=== PATIENT | female | born 1990 | race Caucasian/White ===

== ENCOUNTER 2019-07-03 21:34 | Emergency (ER) | payer OTHER ==
--- OUTSIDE RECORDS SUMMARY | 2019-07-03 21:36 | XMS REPORT ---
:1990 [facility] Address [address] [place] [address] Dr. Albert [address] [place] [id number] Care Team Providers Name Role Phone Unavailable Unavailable Unavailable Problems This patient has no known problems. Allergies, Adverse Reactions, Alerts This patient has no known allergies or adverse reactions. Medications This patient has no known medications.
--- OUTSIDE RECORDS SUMMARY | 2019-07-03 21:37 | XMS REPORT ---
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
--- OUTSIDE RECORDS SUMMARY | 2019-07-03 21:37 | XMS REPORT ---
:1990 Author Organization [employer]Clinical[employer] Care Team Providers Name Role Phone Leander Shepard Provider Role Unavailable Allergies No Known Allergies Problems Problem Type Condition Code Onset Dates Condition Status Problem Hypercalcemia E83.52 Active Problem Iron deficiency [...]
--- OUTSIDE RECORDS SUMMARY | 2019-07-03 21:37 | XMS REPORT ---
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), predominantly inattentive type Problem Hypercalcemia E83.52 Active Problem Iron deficiency anemia, unspecified D50.9 Active iron deficiency anemia type Problem Enlarged thyroid E04.9 Active Problem Tobacco use disorder F17.200 Active Problem 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), predominantly inattentive type Problem Allergic rhinitis, unspecified J30.9 Active seasonality, unspecified trigger Problem Constipation, unspecified K59.00 Active constipation type Assessment Hemorrhoids, unspecified hemorrhoid K64.9 Active type Assessment Tachycardia R00.0 Active Assessment Encounter for medication counseling Z71.89 Active Assessment Enlarged thyroid E04.9 Active Assessment Encounter for tobacco use cessation Z71.6 Active counseling Assessment Tobacco use disorder F17.200 Active Medications Medication Code Code Instructions Start End Status Dosage System Date Date Vyvanse [facility] 78217503133 50 MG Orally Apr 26, Active 1 capsule Once a day 2020 in the morning Toprol XL [facility] 62265716578 25 MG Orally Active 1 tablet Once a day Albuterol [facility] 86064095726 108 (90 Base) May 21, Active 2 puffs as Sulfate HFA MCG/ACT 2019 needed Inhalation every 6 hrs Iron [facility] 90061772555 325 (65 Fe) MG Active 1 tablet Orally Twice a day Chantix [facility] 89179027092 1 MG Orally Active 1 tablet Twice a day Vyvanse [facility] 96609113438 50 MG Orally Mar 26, Active 1 capsule Once a day 2019 in the morning Results No Known Results Summary Purpose eClinicalWorks Submission
--- OUTSIDE RECORDS SUMMARY | 2019-07-03 21:38 | XMS REPORT ---
[...] Start End Status Dosage System Date Date Toprol XL [facility] 45624472511 25 MG Orally Active 1 tablet Once a day Albuterol [facility] 48252426058 108 (90 Base) Active 2 puffs as Sulfate HFA MCG/ACT needed Inhalation every 6 hrs Vyvanse [facility] 69037303697 50 MG Orally June 23, Active 1 capsule Once a day 2019 in the morning Vyvanse [facility] 36113093664 50 MG Orally May 26, Active 1 capsule Once a day 2019 in the morning Chantix [facility] 88500030074 1 MG Orally Active 1 tablet Twice a day Iron [facility] 67845819363 325 (65 Fe) MG Active 1 tablet Orally Twice a day Results No Known Results Summary Purpose eClinicalWorks Submission
--- OUTSIDE RECORDS SUMMARY | 2019-07-03 21:38 | XMS REPORT ---
:1990 Author Organization eClinicalWorks Care Team Providers Name Role Phone Devyn Leander Provider Role Unavailable Allergies, Adverse Reactions, Alerts Substance Reaction Event Type Kenalog-40 Muscle Atrophy Drug Allergy Problems Problem Type Condition Code Onset Dates Condition Status Assessment Lower respiratory infection J22 Active Assessment Acute bronchitis, unspecified J20.9 Active organism Problem Hypercalcemia E83.52 Active Problem Iron deficiency anemia, unspecified D50.9 Active iron deficiency anemia type Problem Enlarged thyroid E04.9 Active Problem Tobacco use disorder F17.200 Active Problem 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), predominantly inattentive type Problem Allergic rhinitis, unspecified J30.9 Active seasonality, unspecified trigger Problem Constipation, unspecified K59.00 Active constipation type Medications Medication Code Code Instructions Start End Date Status Dosage System Date Toprol XL [facility] 36697041282 25 MG Orally Active 1 tablet Once a day PredniSONE ND 36067905281 20 MG Orally Feb , Feb 16, Active 2 tablet Once a day 2019 2019 Vyvanse [facility] 07934804582 50 MG Orally May 26, Active 1 capsule Once a day 2019 in the morning Chantix ND 67203454451 1 MG Orally Active 1 tablet Twice a day Doxycycline ND 49229171075 100 MG Orally Jun 02, Feb , Active 1 capsule Hyclate every 12 hrs 2019 2019 Vyvanse [facility] 25092231531 50 MG Orally June Active 1 capsule Once a day 2019 in the morning Albuterol [facility] 05957830109 108 (90 Base) Active 2 puffs as Sulfate HFA MCG/ACT needed Inhalation every 6 hrs Iron [facility] 15678232485 325 (65 Fe) MG Active 1 tablet Orally Twice a day Symbicort ND 18474551682 80-4.5 MCG/ACT Jun 02June Active 2 puffs Inhalation Once 2019 a day Results No Known Results Summary Purpose eClinicalWorks Submission
--- OUTSIDE RECORDS SUMMARY | 2019-07-03 21:38 | XMS REPORT ---
:1990 Author Organization eClinicalWorks Care Team Providers Name Role Phone Leander Shepard Provider Role Unavailable Allergies, Adverse Reactions, Alerts [...] Start End Status Dosage System Date Date Chantix [facility] 97428468907 1 MG Orally Active 1 tablet Twice a day Vyvanse [facility] 02354291624 50 MG Orally Mar 26, Active 1 capsule Once a day 2018 in the morning Toprol XL [facility] 35590844076 25 MG Orally Active 1 tablet Once a day Benzonatate ND 54736340536 200 MG Orally Apr 30, May 10, Active 1 capsule Three times a 2019 2019 day Azithromycin ND 79312717895 250 MG Orally Apr 30, May 05, Active 2 tablets Once a day 2019 2019 on the first day, then 1 tablet daily for 4 days Iron [facility] 11933865891 325 (65 Fe) MG Active 1 tablet Orally Twice a day Albuterol [facility] 22620712870 108 (90 Base) Active 2 puffs as Sulfate HFA MCG/ACT needed Inhalation every 6 hrs Results No Known Results Summary Purpose eClinicalWorks Submission
--- OUTSIDE RECORDS SUMMARY | 2019-07-03 21:38 | XMS REPORT ---
:1990 Author Organization eClinicalWorks Care Team Providers Name Role Phone Leander Shepard Provider Role Unavailable Allergies No Known Allergies Problems Problem Type Condition Code Onset Dates Condition Status Assessment Constipation, unspecified K59.00 Active constipation type Problem Hypercalcemia E83.52 Active Problem Iron [...]
--- OUTSIDE RECORDS SUMMARY | 2019-07-03 21:38 | XMS REPORT ---
:1990 Author Organization eClinicalWorks Care Team Providers Name Role Phone ShepardLeander Provider Role Unavailable Allergies No Known Allergies Problems Problem Type Condition Code Onset Dates Condition Status Assessment Acute bronchitis, unspecified J20.9 Active organism [...] constipation type Medications No Known Medications Results Name Result Date Reference Range Unit Abnormality Flag Chest Pa And Lat (2 Views) Summary Purpose eClinicalWorks Submission
--- OUTSIDE RECORDS SUMMARY | 2019-07-03 21:38 | XMS REPORT ---
:1990 Author Organization eClinicalWorks Care Team Providers Name Role Phone Leander Shepard Provider Role Unavailable Allergies, Adverse Reactions, Alerts Substance Reaction Event Type Kenalog-40 Muscle Atrophy Drug Allergy Problems Problem Type Condition Code Onset Dates Condition Status Assessment Attention deficit hyperactivity F90.0 Active disorder [...] End Status Dosage System Date Date Vyvanse [facility] 47571399780 50 MG Orally Mar 26, Active 1 capsule Once a day 2018 in the morning Chantix [facility] 73639554175 1 MG Orally Active 1 tablet Twice a day Albuterol [facility] 28286469321 108 (90 Base) May 21, Active 2 puffs as Sulfate HFA MCG/ACT 2019 needed Inhalation every 6 hrs Iron [facility] 21630595234 325 (65 Fe) MG Active 1 tablet Orally Twice a day Toprol XL [facility] 78269779383 25 MG Orally Active 1 tablet Once a day Vyvanse [facility] 04221664460 50 MG Orally Apr 24, Active 1 capsule Once a day 2019 in the morning Results No Known Results Summary Purpose eClinicalWorks Submission
--- OUTSIDE RECORDS SUMMARY | 2019-07-03 21:40 | XMS REPORT ---
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), predominantly inattentive type Problem Abnormal finding on imaging R93.89 Active Problem Enlarged thyroid E04.9 Active Problem Mass of chest wall R22.2 Active Problem Allergic rhinitis, unspecified J30.9 Active seasonality, unspecified trigger Problem Constipation, unspecified K59.00 Active constipation type Problem Hypercalcemia E83.52 Active Problem Iron deficiency anemia, unspecified D50.9 Active iron deficiency anemia type Medications Medication Code System Code Instructions Start End Date Status Dosage Date Vyvnemesoie [facility] 41608819426 50 MG Orally June 23, Active 1 capsule Once a day 2019 in the morning Results No Known Results Summary Purpose eClinicalWorks Submission
--- OUTSIDE RECORDS SUMMARY | 2019-07-03 21:40 | XMS REPORT ---
[...] D50.9 Active iron deficiency anemia type Medications No Known Medications Results No Known Results Summary Purpose eClinicalWorks Submission
--- OUTSIDE RECORDS SUMMARY | 2019-07-03 21:40 | XMS REPORT ---
:1990 Author Organization eClinicalWorks Care Team Providers Name Role Phone Leander Shepard Provider Role Unavailable Allergies, Adverse Reactions, Alerts Substance Reaction Event Type Kenalog-40 Muscle Atrophy Drug Allergy Problems Problem Type Condition Code Onset Dates Condition Status Assessment Localized skin mass, lump, or R22.9 Active swelling Assessment Acute bronchitis, unspecified J20.9 Active organism [...] Status Dosage System Date Date Toprol XL [facility] 13180264952 25 MG Orally Active 1 tablet Once a day Chantix [facility] [place] 19494333265 1 MG Orally Active 1 tablet Twice a day Albuterol [facility] [place] 20306868342 108 (90 Base) Active 2 puffs as Sulfate HFA MCG/ACT needed Inhalation every 6 hrs Vyvanse [facility] [place] 71178113082 50 MG Orally June 23, Active 1 capsule Once a day 2019 in the morning Vyvanse [facility] [place] 05010088550 50 MG Orally May 26, Active 1 capsule Once a day 2019 in the morning Iron [facility] [place] 80999165550 325 (65 Fe) MG Active 1 tablet Orally Twice a day Symbicort [facility] [place] 51386292679 80-4.5 MCG/ACT Active 2 puffs Inhalation Once a day Results No Known Results Summary Purpose eClinicalWorks Submission
--- OUTSIDE RECORDS SUMMARY | 2019-07-03 21:40 | XMS REPORT ---
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), predominantly inattentive type Assessment Abnormal finding on imaging R93.89 Active Assessment Mass of chest wall R22.2 Active Problem Abnormal finding on imaging R93.89 Active Problem Enlarged thyroid E04.9 Active Problem Mass of chest wall R22.2 Active Problem Allergic rhinitis, unspecified J30.9 Active seasonality, unspecified trigger Problem Constipation, unspecified K59.00 Active constipation type Problem Hypercalcemia E83.52 Active Problem Iron deficiency anemia, unspecified D50.9 Active iron deficiency anemia type Medications No Known Medications Results No Known Results Summary Purpose eClinicalb5media Submission
--- NOTE | 2019-07-03 23:16 | ER ---
Nurse's Notes [facility] Name: Ethel Amato Age: 29 yrs Sex: Female : 1990 Arrival Date: 07/03/2019 Time: 21:36 Bed 13 Private MD: Leander Shepard Diagnosis: Displaced fracture of proximal phalanx of left lesser toe(s)-fifth toe Presentation: 07/02 21:50 Chief complaint: Patient states: "I kicked a wooden crate and my foot keeps getting aj1 more swollen and bruised" Reports pain to left foot. Coronavirus screen: The patient has NOT traveled to a country currently being monitored by the CDC within the last 14 days. Ebola Screen: Patient denies travel to an Ebola-affected area in the 21 days before illness onset. Initial Sepsis Screen: Does the patient meet any 2 criteria? No. Patient's initial sepsis screen is negative. Does the patient have a suspected source of infection? No. Patient's initial sepsis screen is negative. Risk Assessment: Do you want to hurt yourself or someone else? Patient reports no desire to harm self or others. 21:50 Method Of Arrival: Ambulatory aj1 21:50 Acuity: APOLINAR 4 aj1 Triage Assessment: 21:52 General: Appears in no apparent distress. comfortable, Behavior is calm, cooperative, aj1 appropriate for age. Pain: Complains of pain in left foot. Neuro: Level of Consciousness is awake, alert, obeys commands. Cardiovascular: Patient's skin is warm and dry. Respiratory: Airway is patent Respiratory effort is even, unlabored, Respiratory pattern is regular, symmetrical. Musculoskeletal: Range of motion: intact in all extremities. Injury Description: She accidentally kicked a wooden crate. [employer]: 21:52 [facility] 06/2019 aj1 Historical: - Allergies: 21:52 No Known Allergies; aj1 - Home Meds: 21:52 Vyvanse 70 mg Oral cap 1 cap once daily [Active]; metoprolol tartrate 25 mg Oral tab 1 aj1 tab once daily [Active]; - PMHx: 21:52 ADD/ADHD; Pneumonia; Hypertension; aj1 - Immunization history:: Flu vaccine is up to date. - Social history:: Smoking status: Patient reports the use of cigarette tobacco products, smokes one-half pack cigarettes per day. Screenin:17 Abuse screen: Denies threats or abuse. Denies injuries from another. Nutritional lw1 screening: No deficits noted. Tuberculosis screening: No symptoms or risk factors identified. Fall Risk None identified. Assessment: 23:08 Reassessment: Patient is alert, oriented x 3, equal unlabored respirations, skin lw1 warm/dry/pink. General: Appears in no apparent distress. well groomed, well developed, well nourished. General: Behavior is calm, cooperative, appropriate for age. Pain: Complains of pain in left foot Pain currently is 8 out of 10 on a pain scale. Alleviated by rest. Neuro: No deficits noted. Cardiovascular: No deficits noted. Respiratory: No deficits noted. GI: No deficits noted. : No deficits noted. EENT: No deficits noted. Derm: No deficits noted. Musculoskeletal: No deficits noted. Injury Description: Bruise sustained to left foot. Vital Signs: 21:52 BP 113 / 75; Pulse 90; Resp 18; Temp 98.3; Pulse Ox 100% on R/A; Weight 48.99 kg (R); aj1 Height 5 ft. 7 in. (170.18 cm) (R); Pain 7/10; 21:52 Body Mass Index 16.92 (48.99 kg, 170.18 cm) aj1 ED Course: 21:36 Patient arrived in ED. es 21:38 Leander Shepard DO is Private Physician. es 21:39 Holli Garcia FNP-C is [facility]. kb 21:39 Arcadio Pitts MD is Attending Physician. kb 21:51 Triage completed. aj1 21:52 Arm band placed on Patient placed in waiting room, Patient notified of wait time. aj1 22:42 Foot Left 3 View XRAY In Process Unspecified. EDMS 23:08 Franklyn Santiago, RN is Primary Nurse. lw1 23:18 No provider procedures requiring assistance completed. Patient did not have IV access lw1 during this emergency room visit. 23:19 Patient has correct armband on for positive identification. Call light in reach. Side lw1 rails up X 1. Administered Medications: No medications were administered Outcome: 23:16 Discharge ordered by . kb 23:18 Discharged to home with crutches. lw1 23:18 Condition: stable 23:18 Discharge instructions given to patient, Instructed on discharge instructions, medication usage, Demonstrated understanding of instructions, follow-up care, crutch walking. 23:36 Patient left the ED. lw1 Signatures: Dispatcher [employer] Holli Jc, [employer] TONYA-Marga Bell, RN RN aj1 Jillian Gupta LaDonna RN RN lw1
--- NOTE | 2019-07-03 23:17 | EDPHYS ---
Physician Documentation [facility] Name: Ethel Amato Age: 29 yrs Sex: Female : 1990 Arrival Date: 07/03/2019 Time: 21:36 Bed 13 Private MD: Devyn [facility] ED Physician Arcadio Pitts HPI: 07/02 23:13 This 29 yrs old Female presents to ER via Ambulatory with complaints of Foot kb Injury. 23:13 The patient has not experienced similar symptoms in the past. The patient has not kb recently seen a physician. 23:14 The patient presents with an injury, pain, swelling, tenderness. The complaints affect kb the dorsum of left foot and lateral side of left foot. Context: The problem was sustained at home, resulted from accidentally kicked a wooden crate, the patient can fully bear weight, the patient is able to ambulate, with mild difficulty. Onset: The symptoms/episode began/occurred this morning. Modifying factors: The symptoms are alleviated by nothing, the symptoms are aggravated by weight bearing. Associated signs and symptoms: Pertinent positives: swelling, Pertinent negatives: calf tenderness, fever, nausea, numbness, rash, tingling, vomiting, warmth, weakness. Severity of symptoms: At their worst the symptoms were moderate, in the emergency department the symptoms are unchanged. [employer]: 21:52 LMP 06/2019 aj1 Historical: - Allergies: 21:52 No Known Allergies; aj1 - Home Meds: 21:52 Vyvanse 70 mg Oral cap 1 cap once daily [Active]; metoprolol tartrate 25 mg Oral tab 1 aj1 tab once daily [Active]; - PMHx: 21:52 ADD/ADHD; Pneumonia; Hypertension; aj1 - Immunization history:: Flu vaccine is up to date. - Social history:: Smoking status: Patient reports the use of cigarette tobacco products, smokes one-half pack cigarettes per day. ROS: 23:11 Constitutional: Negative for fever, chills, and weight loss, Cardiovascular: Negative kb for chest pain, palpitations, and edema, Respiratory: Negative for shortness of breath, cough, wheezing, and pleuritic chest pain, Abdomen/GI: Negative for abdominal pain, nausea, vomiting, diarrhea, and constipation, Back: Negative for injury and pain, Neuro: Negative for headache, weakness, numbness, tingling, and seizure. 23:11 MS/extremity: Positive for injury or acute deformity, ecchymosis, pain, swelling, tenderness, of the lateral side of left foot and dorsum of left foot. Exam: 23:11 Constitutional: This is a well developed, well nourished patient who is awake, alert, kb and in no acute distress. Head/Face: Normocephalic, atraumatic. Chest/axilla: Normal chest wall appearance and motion. Nontender with no deformity. No lesions are appreciated. Cardiovascular: Regular rate and rhythm with a normal S1 and S2. No gallops, murmurs, or rubs. Normal PMI, no JVD. No pulse deficits. Respiratory: Lungs have equal breath sounds bilaterally, clear to auscultation and percussion. No rales, rhonchi or wheezes noted. No increased work of breathing, no retractions or nasal flaring. Abdomen/GI: Soft, non-tender, with normal bowel sounds. No distension or tympany. No guarding or rebound. No evidence of tenderness throughout. Neuro: Awake and alert, GCS 15, oriented to person, place, time, and situation. Cranial nerves II-XII grossly intact. Motor strength 5/5 in all extremities. Sensory grossly intact. Cerebellar exam normal. Normal gait. 23:11 Musculoskeletal/extremity: Extremities: grossly normal except: noted in the dorsum of left foot and lateral side of left foot: ecchymosis, pain, swelling, tenderness, ROM: limited active range of motion due to pain, Circulation is intact in all extremities. Sensation intact. Weight bearing: can bear weight with assistance only. Vital Signs: 21:52 BP 113 / 75; Pulse 90; Resp 18; Temp 98.3; Pulse Ox 100% on R/A; Weight 48.99 kg (R); aj1 Height 5 ft. 7 in. (170.18 cm) (R); Pain 7/10; 21:52 Body Mass Index 16.92 (48.99 kg, 170.18 cm) aj1 MDM: 23:04 Patient medically screened. kb 23:12 Data reviewed: vital signs, nurses notes. Data reviewed: radiologic studies. Data kb interpreted: Pulse oximetry: on room air is 100 %. Interpretation: normal. Test interpretation: by ED physician or midlevel provider: plain radiologic studies, displaced fracture of proximal phalanx of fifth toe. Counseling: I had a detailed discussion with the patient and/or guardian regarding: the historical points, exam findings, and any diagnostic results supporting the discharge/admit diagnosis, radiology results, the need for outpatient follow up, a orthopedic surgeon, to return to the emergency department if symptoms worsen or persist or if there are any questions or concerns that arise at home. 07/02 21:54 Order name: Foot Left 3 View XRAY aj1 07/02 23:07 Order name: Post-op shoe kb 07/02 23:07 Order name: Crutches kb Administered Medications: No medications were administered Disposition: 07/03 03:30 Co-signature as Attending Physician, Arcadio Pitts MD I agree with the assessment and 4 plan of care. Disposition: 07/03/19 23:16 Discharged to Home. Impression: Displaced fracture of proximal phalanx of left lesser toe(s) - fifth toe. - Condition is Stable. - Discharge Instructions: Toe Fracture, [id number]. - Prescriptions for Diclofenac Sodium 75 mg Oral Tablet, Delayed Release (E.C.) - take 1 tablet by ORAL route 2 times per day As needed; 30 tablet. - Medication Reconciliation Form, Thank You Letter, Antibiotic Education, Prescription Opioid Use form. - Follow up: Emergency Department; When: As needed; Reason: Worsening of condition. Follow up: Private Physician; When: 2 - 3 days; Reason: Recheck today's complaints, Continuance of care, Re-evaluation by your physician. Signatures: Dispatcher [employer] [facility] Holli Garcia, TONYA-C ROPE RIDER-Marga Bell RN RN aj1 Arcadio Pitts MD MD tw4 Franklyn Santiago RN RN lw1 Corrections: (The following items were deleted from the chart) 07/02 23:36 23:16 07/03/2019 23:16 Discharged to Home. Impression: Displaced fracture of proximal lw1 phalanx of left lesser toe(s) - fifth toe. Condition is Stable. Forms are Medication Reconciliation Form, Thank You Letter, Antibiotic Education, Prescription Opioid Use. Follow up: Emergency Department; When: As needed; Reason: Worsening of condition. Follow up: Private Physician; When: 2 - 3 days; Reason: Recheck today's complaints, Continuance of care, Re-evaluation by your physician. kb
[2019-07-03 23:57] VITALS: BP 113/75; TEMP 98.3; O2SAT 100
--- NOTE | 2019-07-04 09:44 | RAD REPORT ---
EXAM DESCRIPTION: RAD - Foot Left 3 View - 07/03/2019 10:42 pm CLINICAL HISTORY: PAIN, blunt force trauma to the was COMPARISON: No comparisons FINDINGS: Oblique fracture is present through the proximal shaft of the fifth proximal phalanx. Ther e is minimal angulation deformity. No abnormal distraction. No other toe fracture seen. Metatarsals a re intact. There is soft tissue swelling around the fifth toe. No destructive bone process. No air or foreign body in the soft tissues. IMPRESSION: Left fifth proximal phalanx fracture with minimal angulation.
== END 2019-07-03 23:36 | disposition home or self-care (01) ==
LOC: ER 21:34
DX: S92.512A Displaced fracture of proximal phalanx of left lesser toe(s), initial encounter for closed fracture (principal); W22.8XXA Striking against or struck by other objects, initial encounter; Y93.01 Activity, walking, marching and hiking; Y92.009 Unspecified place in unspecified non-institutional (private) residence as the place of occurrence of the external cause; I10 Essential (primary) hypertension; F90.9 Attention-deficit hyperactivity disorder, unspecified type; F17.210 Nicotine dependence, cigarettes, uncomplicated
CPT/HCPCS: 99283

== ENCOUNTER 2022-04-11 15:38 | Emergency (ER) | payer OTHER ==
--- OUTSIDE RECORDS SUMMARY | 2022-04-11 15:46 | XMS REPORT | Continuity of Care Document ---
:1990 Author Organization [facility] t Address [address] [place]. [address] [place] [id number] Care Team Providers Name Role Phone Leander Shepard Primary Care Physician Leander Shepard Attending Clinician Unavailable CATHIE ROSS Attending Clinician Unavailable RAVINDER FUENTES Attending Clinician Unavailable Jose QUINTANILLA Attending Clinician Unavailable Jose Domínguez Attending Clinician Modesto Jian Attending Clinician Unavailable BALDEV ALARCON S Attending Clinician Unavailable Alarcon PAC, Baldev S Attending Clinician TREVON CORTES Attending Clinician Unavailable Alfie PAC, Kerrie S Attending Clinician KERRIE JUDGE S Attending Clinician Unavailable Cathie Ross MD Attending Clinician JACQUELINE SHIN Attending Clinician Unavailable Josafat CLINICAL NURSE EDUCATOR, Jacqueline Attending Clinician Da STUBBS, Page Attending Clinician TRINO ASHFORD Attending Clinician Unavailable Trino Ashford MD Attending Clinician Doctor Unassigned, [place] Attending Clinician Unavailable Edy STUBBS, Afaq Attending Clinician Pob, Adc Lab Main Attending Clinician Unavailable Only, Adc Test Attending Clinician Unavailable PAGE ROBERSON Attending Clinician Unavailable Horace CLINICAL NURSE EDUCATOR, Consuelo Attending Clinician EBRARAJESH ALEXIS Attending Clinician Unavailable Ebrahim CLINICAL NURSE EDUCATOR Rania Attending Clinician Visit, Ang-Rmchp Nurse Attending Clinician Unavailable Sebastian CLINICAL NURSE EDUCATOR, Trevon Doyle Attending Clinician Akinmargaux WHCNPPratima Attending Clinician [phone] AKINPRATIMA NORRIS Attending Clinician Unavailable _[facility]_G Attending Clinician Unavailable COSME DAVIS Attending Clinician Unavailable Ryan CLINICAL NURSE EDUCATOR, Cosme Attending Clinician [phone] Zakiya Multani RN Attending Clinician Unavailable Only, Tylor Db Test Attending Clinician Unavailable Franki CLINICAL NURSE EDUCATOR, Miley Attending Clinician MILEY DOAN Attending Clinician Unavailable Julisa Purvis DO Attending Clinician Marin HOFF, Tiff Moreno Attending Clinician CHAD MORAN Attending Clinician Unavailable [place] Espana MD Attending Clinician Chad Moran MD Attending Clinician Karina STUBBS, Marisabel Attending Clinician CLEMENTINA MARROQUIN Attending Clinician Unavailable Clementina Marroquin DO Attending Clinician SOLO DEVI Attending Clinician Unavailable Solo Devi MD Attending Clinician Provider, [facility] Attending Clinician Unavailable Kelly Cooley Attending Clinician Christos STUBBS, Jennifer Attending Clinician Radiology Attending Clinician Unavailable RADIOLOGY Attending Clinician Unavailable JENNIFER SHER Attending Clinician Unavailable KELLY PEREZ Attending Clinician Unavailable Noreen CLINICAL NURSE EDUCATOR, Cynise Attending Clinician NOREENSABRA ULRICH Attending Clinician Unavailable Carrington CLINICAL NURSE EDUCATOR, Brandi Casanova Attending Clinician Eliezer Watts MD Attending Clinician Jayden Leahy MD Attending Clinician Unknown, Attending Attending Clinician Unavailable CATHIE ROSS Admitting Clinician Unavailable Arnol Gonsalez Admitting Clinician Unavailable Cathie Ross MD Admitting Clinician _[facility]_G Admitting Clinician Unavailable MARISABEL COLLINS Admitting Clinician Unavailable Marisabel Collins MD Admitting Clinician SOLO DEVI Admitting Clinician Unavailable Solo Devi MD Admitting Clinician BALDEV ALARCON Admitting Clinician Unavailable SABRA SORTO Admitting Clinician Unavailable Payers Payer Name Policy Type Policy Number Effective Date Expiration Date [facility] [id number] 2016 HEALTH CHOICE 00:00:00 [facility]ICAID [facility] [id number] 2019 [facility] 00:00:00 [facility] [id number] 2019 [facility] HEALTH CHOICE 00:00:00 [facility] [id number] 2019 [facility] HEALTH CHOICE 00:00:00 - [facility] [id number] 2019 [facility] HE[facility] CHOICE 00:00:00 - [facility] Problems Condition Condition Condition Status Onset Resolution Last Treating Co mments Source Name Details Category Date Date Treatment Clinician Date Closed Closed Disease Active Overview: Univer s dislocatio dislocatio 7-20 Formattin ity of n of fifth n of fifth 00:00: g of this [place] metacarpal metacarpal 00 note Me dical bone of bone of might be Branch right hand right hand different from the original. Added automatic ally from request for surgery [id number] Other Other Disease Active Univers general general 3-24 ity of counseling [place] and advice and advice 00 Me dical for for Branch contracept contracept luna luna management management Underweikirstie Underwslygh Disease Active U nivers t t 3-24 ity of 00:00: [place] 00 Medical Branch History of History of Disease Active Overview : Univers anorexia anorexia 3-24 Formattin ity of nervosa nervosa 00:00: g of this [place] 00 note Medical might be Branch different from the original. 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 [id number] GERD Problem Common without [facility] esophagiti [facility] s [facility] [id number] Hypercalce Problem Com mon manav [facility] [id number] Iron Problem Common deficiency [facility] anemia, - [facility] unspecifie d iron kes deficiency Medica l anemia Center type [id number] Enlarged Problem Common thyroid [facility] [id number] Abnormal Problem Comm on finding on [facility] imaging [facility] Allergies, Adverse Reactions, Alerts Allergy Allergy Status Severity Reaction(s) Onset Inactive Treating Comm ents Source Name Type Date Date Clinician No Known DA Active U 2016-04 [facility] Allergie 05-12 [place] s 00:00: d 00 [facility] [id number] Drug Active Muscle Common allergy Atrophy [facility] NO KNOWN Drug Active Univers ALLERGIE Class ity of S [facility] Social History Social Habit Start Date Stop Date Quantity Comments Source History of Tobacco Current Smoker Co mmon Spirit - Use [facility] Sex Assigned At [facility] kiki - [facility] Exposure to 2022-03-29 2022-04-08 Not sure University SARS-CoV-2 (event) 00:00:00 23:43:00 [facility] Alcohol intake 2022-04-06 2022-04-06 Current University of 00:00:00 00:00:00 non-drinker of [facility] alcohol Branch (finding) Tobacco use and 2021-10-30 2021-10-30 Smokeless Universit y of exposure 00:00:00 00:00:00 tobacco non-user [place] Me dical Branch Cigarettes smoked 2021-10-30 2021-10-30 Univers ity of current (pack per 00:00:00 00:00:00 ) - Reported Branch Smoking Status Start Date Stop Date Source Current Smoker 2022-02-28 00:00:00 [facility] Medications Ordered Filled Start Stop Current Ordering Indication Dosage Frequency Signature Comments Components Source Medication Medication Date Date Medication? Clinician (SIG) Name Name nkechi 2021-04 10mg 10 mg, Uni vers ne sod phos 06-10 Oral, ity of PF 06:30: 06:32 ONCE, 1 [place] injection 00 :00 dose, On Medica l 10 mg Mon Branch 04/09/22 at 0030, 1 mL Vyvanse 60 Vyvanse 60 2021-04 No 1{capsu QD Vyvanse 60 MG MG 2-10 le_in_t MG 00:00: he_morn 00 ing} Vyvanse 60 Vyvanse 60 2021-04 No 1{capsu QD Vyvanse 60 MG MG 1-11 le_in_t MG 00:00: he_morn 00 ing} Vyvanse 60 Vyvanse 60 2021-04 No 1{capsu QD Vyvanse 60 MG MG 0-13 le_in_t MG 00:00: he_morn 00 ing} Vyvanse 60 Vyvanse 60 2021-04 No 1{capsu QD Vyvanse 60 MG MG 0-13 le_in_t MG 00:00: he_morn 00 ing} Vyvanse 60 Vyvanse 60 No 1{capsu QD Vyvanse 60 MG MG 9-13 le_in_t MG 00:00: he_morn 00 ing} Vyvanse 60 Vyvanse 60 No 1{capsu QD Vyvanse 60 MG MG 9-13 le_in_t MG 00:00: he_morn 00 ing} Vyvanse 60 Vyvanse 60 No 1{capsu QD Vyvanse 60 MG MG 8-14 le_in_t MG 00:00: he_morn 00 ing} Vyvanse 60 Vyvanse 60 No 1{capsu QD Vyvanse 60 MG MG 8-14 le_in_t MG 00:00: he_morn 00 ing} Vyvanse 60 Vyvanse 60 No 1{capsu QD Vyvanse 60 MG MG 8-14 le_in_t MG 00:00: he_morn 00 ing} lisdexamfet Yes 50mg Take 50 mg Univers amine 50 mg 7-25 by mouth ity of capsule 15:00: every [place] 18 morning. Medical Branch albuterol Yes 2{puff} Inhale 2 U nivers 90 7-25 Puffs ity of mcg/actuati 15:00: every 6 [place] as on inhaler 18 (six) Medical hours as Branch needed for Wheezing or Shortness of Breath. pantoprazol Yes 40mg Take 40 mg Univers e 40 mg EC 7-25 by mouth ity o f tablet 15:00: in the [place] [address] morning. Medical Branch ibuprofen Yes 600mg Take 600 Uni vers 600 mg 7-25 mg by ity of tablet 15:00: mouth in [place] [address] the Medical morning. Branch lisdexamfet Yes 50mg Take 50 mg Univers amine 50 mg 7-25 by mouth ity of capsule 15:00: every [place] [address] morning. Medical Branch albuterol Yes 2{puff} Inhale 2 U nivers 90 7-25 Puffs ity of mcg/actuati 15:00: every 6 [place] as on inhaler 18 (six) Medical hours as Branch needed for Wheezing or Shortness of Breath. pantoprazol Yes 40mg Take 40 mg Univers e 40 mg EC 7-25 by mouth ity o f tablet 15:00: in the [place] 18 morning. Medical Branch ibuprofen Yes 600mg Take 600 Uni vers 600 mg 7-25 mg by ity of tablet 15:00: mouth in [place] 18 the Medical morning. Branch lisdexamfet Yes 50mg Take 50 mg Univers amine 50 mg 7-25 by mouth ity of capsule 15:00: every [place] [address] morning. Medical Branch albuterol Yes 2{puff} Inhale 2 U nivers 90 7-25 Puffs ity of mcg/actuati 15:00: every 6 [place] as on inhaler 18 (six) Medical hours as Branch needed for Wheezing or Shortness of Breath. pantoprazol Yes 40mg Take 40 mg Univers e 40 mg EC 7-25 by mouth ity o f tablet 15:00: in the [place] [address] morning. Medical Branch ibuprofen Yes 600mg Take 600 Uni vers 600 mg 7-25 mg by ity of tablet 15:00: mouth in [place] [address] the Medical morning. Branch aspirin 325 2021- No [id number] 325mg Take 1 Univers mg tablet 7-25 08-23 tablet by ity of 00:00: 04:59 mouth in [place] 00 :00 the Medical morning Branch and 1 tablet in the evening. Take with meals. Do all this for 28 days. Vyvanse 60 Vyvanse 60 No 1{capsu QD Vyvanse 60 MG MG 7-15 le_in_t MG 00:00: he_morn 00 ing} Vyvanse 60 Vyvanse 60 No 1{capsu QD Vyvanse 60 MG MG 7-15 le_in_t MG 00:00: he_morn 00 ing} Vyvanse 60 Vyvanse 60 No 1{capsu QD Vyvanse 60 MG MG 7-15 le_in_t MG 00:00: he_morn 00 ing} Vyvanse 60 Vyvanse 60 No 1{capsu QD Vyvanse 60 MG MG 7-15 le_in_t MG 00:00: he_morn 00 ing} Medrol 4 MG Medrol 4 MG No Medrol 4 6-28 07-04 MG 00:00: 00:00 00 :00 Vyvanse 60 Vyvanse 60 No 1{capsu QD Vyvanse 60 MG MG 6-16 le_in_t MG 00:00: he_morn 00 ing} Vyvanse 60 Vyvanse 60 No 1{capsu QD Vyvanse 60 MG MG 5-10 le_in_t MG 00:00: he_morn 00 ing} Vyvanse 60 Vyvanse 60 2021-0 No 1{capsu QD Vyvanse 60 MG MG 5-10 le_in_t MG 00:00: he_morn 00 ing} Vyvanse 60 Vyvanse 60 2021-0 No 1{capsu QD Vyvanse 60 MG MG 4-11 le_in_t MG 00:00: he_morn 00 ing} Vyvanse 60 Vyvanse 60 2021-0 No 1{capsu QD Vyvanse 60 MG MG 4-11 le_in_t MG 00:00: he_morn 00 ing} valACYclovi valACYclovi 0 2021- No 1{table QD valACYclov r HCl 1 GM r HCl 1 GM 07-1323 t} ir HCl 1 00:00: 00:00 GM 00 :00 valACYclovi valACYclovi 0 2021- No 1{table QD valACYclov r HCl 1 GM r HCl 1 GM 07-1323 t} ir HCl 1 00:00: 00:00 GM 00 :00 Vyvanse 60 Vyvanse 60 2021-0 No 1{capsu QD Vyvanse 60 MG MG 3-07 le_in_t MG 00:00: he_morn 00 ing} Vyvanse 60 Vyvanse 60 2021-0 No 1{capsu QD Vyvanse 60 MG MG 3-07 le_in_t MG 00:00: he_morn 00 ing} Vyvanse 60 Vyvanse 60 2021-0 No 1{capsu QD Vyvanse 60 MG MG 2-08 le_in_t MG 00:00: he_morn 00 ing} Vyvanse 60 Vyvanse 60 2021-0 No 1{capsu QD Vyvanse 60 MG MG 2-08 le_in_t MG 00:00: he_morn 00 ing} Vyvanse 60 Vyvanse 60 2020-1 No 1{capsu QD Vyvanse 60 MG MG 2-29 le_in_t MG 00:00: he_morn 00 ing} Vyvanse 60 Vyvanse 60 2020-1 No 1{capsu QD Vyvanse 60 MG MG 1-30 le_in_t MG 00:00: he_morn 00 ing} Vyvanse 60 Vyvanse 60 2020-04 No 1{capsu QD Vyvanse 60 MG MG 0-24 le_in_t MG 00:00: he_morn 00 ing} Vyvanse 60 Vyvanse 60 1 No 1{capsu QD Vyvanse 60 MG MG 0-24 le_in_t MG 00:00: he_morn 00 ing} Vyvanse 60 Vyvanse 60 0 No 1{capsu QD Vyvanse 60 MG MG 9-24 le_in_t MG 00:00: he_morn 00 ing} Vyvanse 60 Vyvanse 60 0 No 1{capsu QD Vyvanse 60 MG MG 9-24 le_in_t MG 00:00: he_morn 00 ing} Nystatin Nystatin 0 2020- No QID Nystatin [id number] 9-20 10-04 [id number] UNIT/ML UNIT/ML 00:00: 00:00 UNIT/ML 00 :00 Vitamin B12 Vitamin B12 2020-0 No 1000ug Common (Cyanocobal (Cyanocobal 9-28 S pirit patel) patel) 00:00: - [facility] Vitamin B12 Vitamin B12 2020-0 No 1000ug Common (Cyanocobal (Cyanocobal 9-28 S pirit patel) patel) 00:00: - [facility] Vitamin B12 Vitamin B12 2020-0 No 1000ug Common (Cyanocobal (Cyanocobal 9-28 S pirit patel) patel) 00:00: - [facility]I 00 [facility] Vitamin B12 Vitamin B12 2020-0 No 1000ug Common (Cyanocobal (Cyanocobal 9-28 S pirit patel) patel) 00:00: - [facility]I 00 [facility] Vitamin B12 Vitamin B12 2020-0 No 1000ug Common (Cyanocobal (Cyanocobal 9-28 S pirit patel) patel) 00:00: - [facility]I 00 [facility] Vitamin B12 Vitamin B12 2020-0 No 1000ug Common (Cyanocobal (Cyanocobal 9-28 S pirit patel) patel) 00:00: - [facility]I 00 [facility] Vitamin B12 Vitamin B12 2020-0 No 1000ug Common (Cyanocobal (Cyanocobal 9-28 S pirit patel) patel) 00:00: - [facility]I 00 [facility] Vitamin B12 Vitamin B12 2020-0 No 1000ug Common (Cyanocobal (Cyanocobal 9-28 S pirit patel) patel) 00:00: - [facility]I 00 [facility] Vitamin B12 Vitamin B12 2020-0 No 1000ug Common (Cyanocobal (Cyanocobal 9-28 S pirit patel) patel) 00:00: - [facility]I 00 [facility] Vitamin B12 Vitamin B12 2020-0 No 1000ug Common (Cyanocobal (Cyanocobal 9-28 S pirit patel) patel) 00:00: - [facility]I 00 [facility] Vitamin B12 Vitamin B12 2020-0 No 1000ug Common (Cyanocobal (Cyanocobal 9-28 S pirit patel) patel) 00:00: - [facility]I 00 [facility] Vitamin B12 Vitamin B12 2020-0 No 1000ug Common (Cyanocobal (Cyanocobal 9-28 S pirit patel) patel) 00:00: - [facility]I 00 [facility] Medrol Medrol 2020-0 2020- No [place] as Common 12-07 Shepard directed Spirit 00:00: 00:00 - CHI 00 :00 [facility] Solumedrol Solumedrol 2020-0 No 42mg C ommon 125mg/2ml 125mg/2ml 8-17 Spiri t 00:00: - [facility]I 00 [facility] Solumedrol Solumedrol 2020-0 No 42mg C ommon 125mg/2ml 125mg/2ml 8-17 Spiri t 00:00: - [facility]I 00 [facility] Solumedrol Solumedrol 2020-0 No 42mg C ommon 125mg/2ml 125mg/2ml 8-17 Spiri t 00:00: - [facility]I 00 [facility] Solumedrol Solumedrol 2020-0 No 42mg C ommon 125mg/2ml 125mg/2ml 8-17 Spiri t 00:00: - [facility]I 00 [facility] Solumedrol Solumedrol 2020-0 No 42mg C ommon 125mg/2ml 125mg/2ml 8-17 Spiri t 00:00: - [facility]I 00 [facility] Solumedrol Solumedrol 2020-0 No 42mg C ommon 125mg/2ml 125mg/2ml 8-17 Spiri t 00:00: - [facility]I 00 [facility] Solumedrol Solumedrol 2020-0 No 42mg C ommon 125mg/2ml 125mg/2ml 8-17 Spiri t 00:00: - [facility]I 00 [facility] Solumedrol Solumedrol 2020-0 No 42mg C ommon 125mg/2ml 125mg/2ml 8-17 Spiri t 00:00: - [facility]I 00 [facility] Solumedrol Solumedrol 2020-0 No 42mg C ommon 125mg/2ml 125mg/2ml 8-17 Spiri t 00:00: - [facility]I 00 [facility] Solumedrol Solumedrol 2020-0 No 42mg C ommon 125mg/2ml 125mg/2ml 8-17 Spiri t 00:00: - [facility]I 00 [facility] Solumedrol Solumedrol 2020-0 No 42mg C ommon 125mg/2ml 125mg/2ml 8-17 Spiri t 00:00: - [facility]I 00 [facility] Solumedrol Solumedrol 2020-0 No 42mg C ommon 125mg/2ml 125mg/2ml 8-17 Spiri t 00:00: - [facility] 00 [facility] metoprolol 2019-0 Yes [id number] 25mg Take 1 Un carlitos succinate 7-17 tablet by ity o f XL 25 mg 24 00:00: mouth [place] hr tablet 00 daily. Medical Branch metoprolol 2019-0 Yes [id number] 25mg Take 1 Un carlitos succinate 7-17 tablet by ity o f XL 25 mg 24 00:00: mouth [place] hr tablet 00 daily. Medical Branch metoprolol 2019-0 Yes [id number] 25mg Take 1 Un carlitos succinate 7-17 tablet by ity o f XL 25 mg 24 00:00: mouth [place] hr tablet 00 daily. Medical Branch Kenalog Kenalog 2019-0 No 40mg Common (Triamcinol (Triamcinol 4-25 S pirit one) one) 00:00: - [facility]I 00 [facility] Kenalog Kenalog 2019-0 No 40mg Common (Triamcinol (Triamcinol 4-25 S pirit one) one) 00:00: - [facility]I 00 [facility] Kenalog Kenalog 2019-0 No 40mg Common (Triamcinol (Triamcinol 4-25 S pirit one) one) 00:00: - [facility]I 00 [facility] Kenalog Kenalog 2019-0 No 40mg Common (Triamcinol (Triamcinol 4-25 S pirit one) one) 00:00: - [facility]I 00 [facility] Kenclary Kenalog 2019-0 No 40mg Common (Triamcinol (Triamcinol 4-25 S pirit one) one) 00:00: - [facility] 00 [facility] Kenclary Kenalog 2019-0 No 40mg Common (Triamcinol (Triamcinol 4-25 S pirit one) one) 00:00: - [facility] 00 [facility] Kenclary Kenalog 2019-0 No 40mg Common (Triamcinol (Triamcinol 4-25 S pirit one) one) 00:00: - [facility] 00 [facility] Kenclary Kenalog 2019-0 No 40mg Common (Triamcinol (Triamcinol 4-25 S pirit one) one) 00:00: - [facility] 00 [facility] Kenclary Kenalog 2019-0 No 40mg Common (Triamcinol (Triamcinol 4-25 S pirit one) one) 00:00: - [facility] 00 [facility] Kenalog Kenalog 2019-0 No 40mg Common (Triamcinol (Triamcinol 4-25 S pirit one) one) 00:00: - [facility] 00 [facility] Kenalog Kenalog 2019-0 No 40mg Common (Triamcinol (Triamcinol 4-25 S pirit one) one) 00:00: - [facility] 00 [facility] Kenalog Kenalog 2019-0 No 40mg Common (Triamcinol (Triamcinol 4-25 S pirit one) one) 00:00: - [facility] 00 [facility] Pantoprazol Pantoprazol No 1{table QD Pantoprazo e Sodium 40 e Sodium 40 t} le Sodium MG MG 40 MG Toprol XL Toprol XL No 1{table QD Toprol XL 25 MG 25 MG t} 25 MG Symbicort Symbicort No 2{puffs QD Symbicort 80-4.5 80-4.5 } 80-4.5 MCG/ACT MCG/ACT MCG/ACT Albuterol Albuterol No 2{puffs QID Albuterol Sulfate HFA Sulfate HFA _as_nee Sulfate 108 (90 108 (90 ded} HFA 108 Base) Base) (90 Base) MCG/ACT MCG/ACT MCG/ACT Iron 325 Iron 325 No 1{table BID Iron 325 (65 Fe) MG (65 Fe) MG t} (65 Fe) MG Chantix 1 Chantix 1 No 1{table BID Chantix 1 MG MG t} MG Proctofoam Proctofoam No 1{appli TID Proctofoam HC 1-1 % HC 1-1 % cation_ HC 1-1 % to_affe cted_ar ea} Pantoprazol Pantoprazol No 1{table QD Pantoprazo e Sodium 40 e Sodium 40 t} le Sodium MG MG 40 MG Symbicort Symbicort No 2{puffs QD Symbicort 80-4.5 80-4.5 } 80-4.5 MCG/ACT MCG/ACT MCG/ACT Albuterol Albuterol No 2{puffs QID Albuterol Sulfate HFA Sulfate HFA _as_nee Sulfate 108 (90 108 (90 ded} HFA 108 Base) Base) (90 Base) MCG/ACT MCG/ACT MCG/ACT Toprol XL Toprol XL No 1{table QD Toprol XL 25 MG 25 MG t} 25 MG Chantix 1 Chantix 1 No 1{table BID Chantix 1 MG MG t} MG Proctofoam Proctofoam No 1{appli TID Proctofoam HC 1-1 % HC 1-1 % cation_ HC 1-1 % to_affe cted_ar ea} Iron 325 Iron 325 No 1{table BID Iron 325 (65 Fe) MG (65 Fe) MG t} (65 Fe) MG Vyvanse 60 Vyvanse 60 No 1{capsu QD Vyvanse 60 MG MG le_in_t MG he_morn ing} Toprol XL Toprol XL No 1{table QD Toprol XL 25 MG 25 MG t} 25 MG Chantix 1 Chantix 1 No 1{table BID Chantix 1 MG MG t} MG Pantoprazol Pantoprazol No 1{table QD Pantoprazo e Sodium 40 e Sodium 40 t} le Sodium MG MG 40 MG Vyvanse 60 Vyvanse 60 No 1{capsu QD Vyvanse 60 MG MG le_in_t MG he_morn ing} Proctofoam Proctofoam No 1{appli TID Proctofoam HC 1-1 % HC 1-1 % cation_ HC 1-1 % to_affe cted_ar ea} Toprol XL Toprol XL No 1{table QD Toprol XL 25 MG 25 MG t} 25 MG Chantix 1 Chantix 1 No 1{table BID Chantix 1 MG MG t} MG Proctofoam Proctofoam No 1{appli TID Proctofoam HC 1-1 % HC 1-1 % cation_ HC 1-1 % to_affe cted_ar ea} Symbicort Symbicort No 2{puffs QD Symbicort 80-4.5 80-4.5 } 80-4.5 MCG/ACT MCG/ACT MCG/ACT Iron 325 Iron 325 No 1{table BID Iron 325 (65 Fe) MG (65 Fe) MG t} (65 Fe) MG Pantoprazol Pantoprazol No 1{table QD Pantoprazo e Sodium 40 e Sodium 40 t} le Sodium MG MG 40 MG Albuterol Albuterol No 2{puffs QID Albuterol Sulfate HFA Sulfate HFA _as_nee Sulfate 108 (90 108 (90 ded} HFA 108 Base) Base) (90 Base) MCG/ACT MCG/ACT MCG/ACT Symbicort Symbicort No 2{puffs QD Symbicort 80-4.5 80-4.5 } 80-4.5 MCG/ACT MCG/ACT MCG/ACT Toprol XL Toprol XL No 1{table QD Toprol XL 25 MG 25 MG t} 25 MG Pantoprazol Pantoprazol No 1{table QD Pantoprazo e Sodium 40 e Sodium 40 t} le Sodium MG MG 40 MG Chantix 1 Chantix 1 No 1{table BID Chantix 1 MG MG t} MG Albuterol Albuterol No 2{puffs QID Albuterol Sulfate HFA Sulfate HFA _as_nee Sulfate 108 (90 108 (90 ded} HFA 108 Base) Base) (90 Base) MCG/ACT MCG/ACT MCG/ACT Iron 325 Iron 325 No 1{table BID Iron 325 (65 Fe) MG (65 Fe) MG t} (65 Fe) MG Proctofoam Proctofoam No 1{appli TID Proctofoam HC 1-1 % HC 1-1 % cation_ HC 1-1 % to_affe cted_ar ea} Symbicort Symbicort No 2{puffs QD Symbicort 80-4.5 80-4.5 } 80-4.5 MCG/ACT MCG/ACT MCG/ACT Toprol XL Toprol XL No 1{table QD Toprol XL 25 MG 25 MG t} 25 MG Pantoprazol Pantoprazol No 1{table QD Pantoprazo e Sodium 40 e Sodium 40 t} le Sodium MG MG 40 MG Chantix 1 Chantix 1 No 1{table BID Chantix 1 MG MG t} MG Albuterol Albuterol No 2{puffs QID Albuterol Sulfate HFA Sulfate HFA _as_nee Sulfate 108 (90 108 (90 ded} HFA 108 Base) Base) (90 Base) MCG/ACT MCG/ACT MCG/ACT Iron 325 Iron 325 No 1{table BID Iron 325 (65 Fe) MG (65 Fe) MG t} (65 Fe) MG Proctofoam Proctofoam No 1{appli TID Proctofoam HC 1-1 % HC 1-1 % cation_ HC 1-1 % to_affe cted_ar ea} Proctofoam Proctofoam No 1{appli TID Proctofoam HC 1-1 % HC 1-1 % cation_ HC 1-1 % to_affe cted_ar ea} Pantoprazol Pantoprazol No 1{table QD Pantoprazo e Sodium 40 e Sodium 40 t} le Sodium MG MG 40 MG Carafate 1 Carafate 1 No 1{table BID Carafate 1 GM GM t_on_an GM _empty_ stomach } Symbicort Symbicort No 2{puffs QD Symbicort 80-4.5 80-4.5 } 80-4.5 MCG/ACT MCG/ACT MCG/ACT Metoprolol Metoprolol No Metoprolol Succinate Succinate Succinate ER 25 MG ER 25 MG ER 25 MG Chantix 1 Chantix 1 No 1{table BID Chantix 1 MG MG t} MG Iron 325 Iron 325 No 1{table BID Iron 325 (65 Fe) MG (65 Fe) MG t} (65 Fe) MG Albuterol Albuterol No 2{puffs QID Albuterol Sulfate HFA Sulfate HFA _as_nee Sulfate 108 (90 108 (90 ded} HFA 108 Base) Base) (90 Base) MCG/ACT MCG/ACT MCG/ACT Toprol XL Toprol XL No 1{table QD Toprol XL 25 MG 25 MG t} 25 MG Proctofoam Proctofoam No 1{appli TID Proctofoam HC 1-1 % HC 1-1 % cation_ HC 1-1 % to_affe cted_ar ea} Pantoprazol Pantoprazol No 1{table QD Pantoprazo e Sodium 40 e Sodium 40 t} le Sodium MG MG 40 MG Carafate 1 Carafate 1 No 1{table BID Carafate 1 GM GM t_on_an GM _empty_ stomach } Symbicort Symbicort No 2{puffs QD Symbicort 80-4.5 80-4.5 } 80-4.5 MCG/ACT MCG/ACT MCG/ACT Metoprolol Metoprolol No Metoprolol Succinate Succinate Succinate ER 25 MG ER 25 MG ER 25 MG Chantix 1 Chantix 1 No 1{table BID Chantix 1 MG MG t} MG Iron 325 Iron 325 No 1{table BID Iron 325 (65 Fe) MG (65 Fe) MG t} (65 Fe) MG Albuterol Albuterol No 2{puffs QID Albuterol Sulfate HFA Sulfate HFA _as_nee Sulfate 108 (90 108 (90 ded} HFA 108 Base) Base) (90 Base) MCG/ACT MCG/ACT MCG/ACT Toprol XL Toprol XL No 1{table QD Toprol XL 25 MG 25 MG t} 25 MG Proctofoam Proctofoam No 1{appli TID Proctofoam HC 1-1 % HC 1-1 % cation_ HC 1-1 % to_affe cted_ar ea} Vyvanse 60 Vyvanse 60 No 1{capsu QD Vyvanse 60 MG MG le_in_t MG he_morn ing} Metoprolol Metoprolol No Metoprolol Succinate Succinate Succinate ER 25 MG ER 25 MG ER 25 MG Carafate 1 Carafate 1 No 1{table BID Carafate 1 GM GM t_on_an GM _empty_ stomach } Iron 325 Iron 325 No 1{table BID Iron 325 (65 Fe) MG (65 Fe) MG t} (65 Fe) MG Albuterol Albuterol No 2{puffs QID Albuterol Sulfate HFA Sulfate HFA _as_nee Sulfate 108 (90 108 (90 ded} HFA 108 Base) Base) (90 Base) MCG/ACT MCG/ACT MCG/ACT Symbicort Symbicort No 2{puffs QD Symbicort 80-4.5 80-4.5 } 80-4.5 MCG/ACT MCG/ACT MCG/ACT Chantix 1 Chantix 1 No 1{table BID Chantix 1 MG MG t} MG Pantoprazol Pantoprazol No 1{table QD Pantoprazo e Sodium 40 e Sodium 40 t} le Sodium MG MG 40 MG Toprol XL Toprol XL No 1{table QD Toprol XL 25 MG 25 MG t} 25 MG Vyvanse 60 Vyvanse 60 No 1{capsu QD Vyvanse 60 MG MG le_in_t MG he_morn ing} Proctofoam Proctofoam No 1{appli TID Proctofoam HC 1-1 % HC 1-1 % cation_ HC 1-1 % to_affe cted_ar ea} Vyvanse 60 Vyvanse 60 No 1{capsu QD Vyvanse 60 MG MG le_in_t MG he_morn ing} Metoprolol Metoprolol No Metoprolol Succinate Succinate Succinate ER 25 MG ER 25 MG ER 25 MG Carafate 1 Carafate 1 No 1{table BID Carafate 1 GM GM t_on_an GM _empty_ stomach } Iron 325 Iron 325 No 1{table BID Iron 325 (65 Fe) MG (65 Fe) MG t} (65 Fe) MG Albuterol Albuterol No 2{puffs QID Albuterol Sulfate HFA Sulfate HFA _as_nee Sulfate 108 (90 108 (90 ded} HFA 108 Base) Base) (90 Base) MCG/ACT MCG/ACT MCG/ACT Symbicort Symbicort No 2{puffs QD Symbicort 80-4.5 80-4.5 } 80-4.5 MCG/ACT MCG/ACT MCG/ACT Chantix 1 Chantix 1 No 1{table BID Chantix 1 MG MG t} MG Pantoprazol Pantoprazol No 1{table QD Pantoprazo e Sodium 40 e Sodium 40 t} le Sodium MG MG 40 MG Toprol XL Toprol XL No 1{table QD Toprol XL 25 MG 25 MG t} 25 MG Vyvanse 60 Vyvanse 60 No 1{capsu QD Vyvanse 60 MG MG le_in_t MG he_morn ing} Chantix 1 Chantix 1 No 1{table BID Chantix 1 MG MG t} MG Symbicort Symbicort No 2{puffs QD Symbicort 80-4.5 80-4.5 } 80-4.5 MCG/ACT MCG/ACT MCG/ACT Albuterol Albuterol No 2{puffs QID Albuterol Sulfate HFA Sulfate HFA _as_nee Sulfate 108 (90 108 (90 ded} HFA 108 Base) Base) (90 Base) MCG/ACT MCG/ACT MCG/ACT Carafate 1 Carafate 1 No 1{table BID Carafate 1 GM GM t_on_an GM _empty_ stomach } Pantoprazol Pantoprazol No 1{table QD Pantoprazo e Sodium 40 e Sodium 40 t} le Sodium MG MG 40 MG Proctofoam Proctofoam No 1{appli TID Proctofoam HC 1-1 % HC 1-1 % cation_ HC 1-1 % to_affe cted_ar ea} Toprol XL Toprol XL No 1{table QD Toprol XL 25 MG 25 MG t} 25 MG Metoprolol Metoprolol No Metoprolol Succinate Succinate Succinate ER 25 MG ER 25 MG ER 25 MG Iron 325 Iron 325 No 1{table BID Iron 325 (65 Fe) MG (65 Fe) MG t} (65 Fe) MG Albuterol Albuterol No 2{puffs QID Albuterol Sulfate HFA Sulfate HFA _as_nee Sulfate 108 (90 108 (90 ded} HFA 108 Base) Base) (90 Base) MCG/ACT MCG/ACT MCG/ACT Chantix 1 Chantix 1 No 1{table BID Chantix 1 MG MG t} MG Iron 325 Iron 325 No 1{table BID Iron 325 (65 Fe) MG (65 Fe) MG t} (65 Fe) MG Carafate 1 Carafate 1 No 1{table BID Carafate 1 GM GM t_on_an GM _empty_ stomach } Toprol XL Toprol XL No 1{table QD Toprol XL 25 MG 25 MG t} 25 MG Pantoprazol Pantoprazol No 1{table QD Pantoprazo e Sodium 40 e Sodium 40 t} le Sodium MG MG 40 MG Symbicort Symbicort No 2{puffs QD Symbicort 80-4.5 80-4.5 } 80-4.5 MCG/ACT MCG/ACT MCG/ACT Proctofoam Proctofoam No 1{appli TID Proctofoam HC 1-1 % HC 1-1 % cation_ HC 1-1 % to_affe cted_ar ea} Metoprolol Metoprolol No Metoprolol Succinate Succinate Succinate ER 25 MG ER 25 MG ER 25 MG Albuterol Albuterol No 2{puffs QID Albuterol Sulfate HFA Sulfate HFA _as_nee Sulfate 108 (90 108 (90 ded} HFA 108 Base) Base) (90 Base) MCG/ACT MCG/ACT MCG/ACT Iron 325 Iron 325 No 1{table BID Iron 325 (65 Fe) MG (65 Fe) MG t} (65 Fe) MG Symbicort Symbicort No 2{puffs QD Symbicort 80-4.5 80-4.5 } 80-4.5 MCG/ACT MCG/ACT MCG/ACT Metoprolol Metoprolol No QD Metoprolol Succinate Succinate Succinate ER 25 MG ER 25 MG ER 25 MG Carafate 1 Carafate 1 No 1{table BID Carafate 1 GM GM t_on_an GM _empty_ stomach } Chantix 1 Chantix 1 No 1{table BID Chantix 1 MG MG t} MG Pantoprazol Pantoprazol No 1{table QD Pantoprazo e Sodium 40 e Sodium 40 t} le Sodium MG MG 40 MG Proctofoam Proctofoam No 1{appli TID Proctofoam HC 1-1 % HC 1-1 % cation_ HC 1-1 % to_affe cted_ar ea} Toprol XL Toprol XL No 1{table QD Toprol XL 25 MG 25 MG t} 25 MG Albuterol Albuterol No 2{puffs QID Albuterol Sulfate HFA Sulfate HFA _as_nee Sulfate 108 (90 108 (90 ded} HFA 108 Base) Base) (90 Base) MCG/ACT MCG/ACT MCG/ACT Iron 325 Iron 325 No 1{table BID Iron 325 (65 Fe) MG (65 Fe) MG t} (65 Fe) MG Symbicort Symbicort No 2{puffs QD Symbicort 80-4.5 80-4.5 } 80-4.5 MCG/ACT MCG/ACT MCG/ACT Metoprolol Metoprolol No QD Metoprolol Succinate Succinate Succinate ER 25 MG ER 25 MG ER 25 MG Carafate 1 Carafate 1 No 1{table BID Carafate 1 GM GM t_on_an GM _empty_ stomach } Chantix 1 Chantix 1 No 1{table BID Chantix 1 MG MG t} MG Pantoprazol Pantoprazol No 1{table QD Pantoprazo e Sodium 40 e Sodium 40 t} le Sodium MG MG 40 MG Proctofoam Proctofoam No 1{appli TID Proctofoam HC 1-1 % HC 1-1 % cation_ HC 1-1 % to_affe cted_ar ea} Toprol XL Toprol XL No 1{table QD Toprol XL 25 MG 25 MG t} 25 MG Metoprolol Metoprolol No QD Metoprolol Succinate Succinate Succinate ER 25 MG ER 25 MG ER 25 MG Chantix 1 Chantix 1 No 1{table BID Chantix 1 MG MG t} MG Pantoprazol Pantoprazol No 1{table QD Pantoprazo e Sodium 40 e Sodium 40 t} le Sodium MG MG 40 MG Albuterol Albuterol No 2{puffs QID Albuterol Sulfate HFA Sulfate HFA _as_nee Sulfate 108 (90 108 (90 ded} HFA 108 Base) Base) (90 Base) MCG/ACT MCG/ACT MCG/ACT Proctofoam Proctofoam No 1{appli TID Proctofoam HC 1-1 % HC 1-1 % cation_ HC 1-1 % to_affe cted_ar ea} Iron 325 Iron 325 No 1{table BID Iron 325 (65 Fe) MG (65 Fe) MG t} (65 Fe) MG Toprol XL Toprol XL No 1{table QD Toprol XL 25 MG 25 MG t} 25 MG Symbicort Symbicort No 2{puffs QD Symbicort 80-4.5 80-4.5 } 80-4.5 MCG/ACT MCG/ACT MCG/ACT Carafate 1 Carafate 1 No 1{table BID Carafate 1 GM GM t_on_an GM _empty_ stomach } Metoprolol Metoprolol No QD Metoprolol Succinate Succinate Succinate ER 25 MG ER 25 MG ER 25 MG Chantix 1 Chantix 1 No 1{table BID Chantix 1 MG MG t} MG Pantoprazol Pantoprazol No 1{table QD Pantoprazo e Sodium 40 e Sodium 40 t} le Sodium MG MG 40 MG Albuterol Albuterol No 2{puffs QID Albuterol Sulfate HFA Sulfate HFA _as_nee Sulfate 108 (90 108 (90 ded} HFA 108 Base) Base) (90 Base) MCG/ACT MCG/ACT MCG/ACT Proctofoam Proctofoam No 1{appli TID Proctofoam HC 1-1 % HC 1-1 % cation_ HC 1-1 % to_affe cted_ar ea} Iron 325 Iron 325 No 1{table BID Iron 325 (65 Fe) MG (65 Fe) MG t} (65 Fe) MG Toprol XL Toprol XL No 1{table QD Toprol XL 25 MG 25 MG t} 25 MG Symbicort Symbicort No 2{puffs QD Symbicort 80-4.5 80-4.5 } 80-4.5 MCG/ACT MCG/ACT MCG/ACT Carafate 1 Carafate 1 No 1{table BID Carafate 1 GM GM t_on_an GM _empty_ stomach } Symbicort Symbicort No 2{puffs QD Symbicort 80-4.5 80-4.5 } 80-4.5 MCG/ACT MCG/ACT MCG/ACT Iron 325 Iron 325 No 1{table BID Iron 325 (65 Fe) MG (65 Fe) MG t} (65 Fe) MG Proctofoam Proctofoam No 1{appli TID Proctofoam HC 1-1 % HC 1-1 % cation_ HC 1-1 % to_affe cted_ar ea} Chantix 1 Chantix 1 No 1{table BID Chantix 1 MG MG t} MG Metoprolol Metoprolol No QD Metoprolol Succinate Succinate Succinate ER 25 MG ER 25 MG ER 25 MG Albuterol Albuterol No 2{puffs QID Albuterol Sulfate HFA Sulfate HFA _as_nee Sulfate 108 (90 108 (90 ded} HFA 108 Base) Base) (90 Base) MCG/ACT MCG/ACT MCG/ACT Pantoprazol Pantoprazol No 1{table QD Pantoprazo e Sodium 40 e Sodium 40 t} le Sodium MG MG 40 MG Toprol XL Toprol XL No 1{table QD Toprol XL 25 MG 25 MG t} 25 MG Carafate 1 Carafate 1 No 1{table BID Carafate 1 GM GM t_on_an GM _empty_ stomach } Immunizations Ordered Filled Immunization Date Status Comments [facility] e Immunization Name Name HPV9 2021-08-14 Completed [facility] 00:00:00 [facility] HPV9 2021-08-14 Completed [facility] 00:00:00 [facility] HPV9 2021-08-14 Completed [facility] 00:00:00 [facility] HPV9 2021-07-13 Completed [facility] 00:00: [facility] HPV9 2021-07-13 Completed [facility] 00:00:00 [facility] HPV9 2021-07-13 Completed [facility] 00:00:00 [facility] Influenza Virus 2021-03-07 Completed [facility] of Vaccine [facility], 00:00:00 [place] [facility] Preserv and ABX Branch Free 6 MO-64 YRS Influenza Virus 2021-03-07 Completed [facility] of Vaccine [facility], 00:00:00 [place] [facility] Preserv and ABX Branch Free 6 MO-64 YRS Influenza Virus 2021-03-07 Completed [facility] y of Vaccine [facility], 00:00:00 [place] Me [facility]ical Preserv and ABX Branch Free 6 MO-64 YRS Vitamin B12 Vitamin B12 2020-01-18 [facility] (Cyanocobalamin) (Cyanocobalamin) 16:50:00 [facility] Solumedrol Solumedrol 2019-12-07 Completed [facility] - 125mg/2ml 125mg/2ml 14:03:00 [facility] Afluria Afluria 2018-12-24 Completed [facility] - 10:23:00 [facility] Afluria Afluria 2018-12-24 Completed [facility] - 10:23:00 [facility] Afluria Afluria 2018-12-24 Completed [facility] - 10:23:00 [facility] Afluria Afluria 2018-12-24 Completed [facility] 10:23:00 [facility] Afluria Afluria 2018-12-24 Completed [facility] - 10:23:00 [facility] Afluria Afluria 2018-12-24 Completed [facility] - 10:23:00 [facility] Afluria Afluria 2018-12-24 Completed [facility] - 10:23:00 [facility] Afluria Afluria 2018-12-24 Completed [facility] - 10:23:00 [facility] Afluria Afluria 2018-12-24 Completed [facility] - 10:23:00 [facility] Afluria Afluria 2018-12-24 Completed [facility] - 10:23:00 [facility] Afluria Afluria 2018-12-24 Completed [facility] - 10:23:00 [facility] Afluria Afluria 2018-12-24 Completed [facility] - 10:23:00 [facility] Afluria Afluria 2018-12-24 Completed [facility] - 10:23:00 [facility] Afluria Afluria 2018-12-24 Completed [facility] - 10:23:00 [facility] Afluria Afluria 2018-12-24 Completed [facility] - 10:23:00 [facility] Afluria Afluria 2018-12-24 Completed [facility] - 10:23:00 [facility] Afluria Afluria 2018-12-24 Completed [facility] - 10:23:00 [facility] Afluria Afluria 2018-12-24 Completed [facility] - 00:00:00 [facility] Kenalog Kenalog 2018-08-14 Completed [facility] - (Triamcinolone) (Triamcinolone) 09:05:00 [facility] Influenza Virus 2017-01-18 Completed Universit [facility] of Vaccine Quad ID 00:00:00 [facility] 18-64 YRS Branch Influenza Virus 2017-01-18 Completed Universit y of Vaccine Quad ID 00:00:00 [facility] 18-64 YRS Branch Influenza Virus 2017-01-18 Completed Universit y of Vaccine Quad ID 00:00:00 [facility] [age] YRS Branch Influenza Virus 2016-08-21 Completed Universit y of Vaccine Quad IM 3+ 00:00:00 [facility] Influenza Virus 2016-08-21 Completed Universit y of Vaccine Quad IM 3+ 00:00:00 [facility] Influenza Virus 2016-08-21 Completed Universit y of Vaccine Quad IM 3+ 00:00:00 [facility] Influenza Virus 2016-08-20 Completed Universit y of Vaccine 00:00:00 [facility] Influenza Virus 2016-08-20 Completed Universit y of Vaccine 00:00:00 [facility] Influenza Virus 2016-08-20 Completed Universit y of Vaccine 00:00:00 [facility] Vital Signs Vital Name Observation Time Observation Value Comments Source Systolic blood 2022-04-09 05:47:00 138 mm[Hg] Univer sity of pressure [facility] Diastolic blood 2022-04-09 05:47:00 104 mm[Hg] Unive rsity of [facility] Heart rate 2022-04-09 05:47:00 112 /min [facility] Body temperature 2022-04-09 05:47:00 36.61 [facility] Respiratory rate 2022-04-09 05:47:00 16 /min [facility] Body height 2022-04-09 05:47:00 170.2 cm [facility] Body weight 2022-04-09 05:47:00 45.36 kg [facility] BMI 2022-04-09 05:47:00 15.66 kg/m2 [facility] Oxygen saturation in 2022-04-09 05:47:00 100 /min University of Arterial blood by [facility] Pulse oximetry Branch Systolic blood 2022-04-05 20:08:00 149 mm[Hg] Univer sity of pressure [facility] Diastolic blood 2022-04-05 20:08:00 114 mm[Hg] Unive rsity of pressure [facility] Heart rate 2022-04-05 20:08:00 108 /min Universi ty [facility] Body temperature 2022-04-05 20:08:00 36.61 Purvi [facility] ersity [facility] Respiratory rate 2022-04-05 20:08:00 16 /min Univ [facility] Body height 2022-04-05 20:08:00 170.2 cm Universi ty of [facility] Body weight 2022-04-05 20:08:00 45.36 kg Universi ty [facility] BMI 2022-04-05 20:08:00 15.66 kg/m2 Universi [facility] Oxygen saturation in 2022-04-05 20:08:00 100 /min [facility] of Arterial blood by [facility] Pulse oximetry Branch height 2022-03-02 07:50:00 67 [in_i] [facility] weight 2022-03-02 07:50:00 105 [lb_av] [facility] temperature 2022-03-02 07:50:00 98 [degF] [facility] bmi 2022-03-02 07:50:00 16.44 kg/m2 [facility] blood pressure 2022-03-02 07:50:00 120 mm[Hg] [facility] systolic [facility] blood pressure 2022-03-02 07:50:00 76 mm[Hg] [facility] - diastolic [facility] height 2022-01-02 11:40:00 67 [in_i] [facility] weight 2022-01-02 11:40:00 105 [lb_av] [facility] bmi 2022-01-02 11:40:00 16.44 kg/m2 [facility] blood pressure 2022-01-02 11:40:00 125 mm[Hg] [facility] systolic [facility] blood pressure 2022-01-02 11:40:00 76 mm[Hg] [facility] - diastolic [facility] Systolic blood 2021-12-04 20:56:00 124 mm[Hg] Univer sity of [facility] Diastolic blood 2021-12-04 20:56:00 89 mm[Hg] Unive rsity of [facility] Heart rate 2021-12-04 20:56:00 156 /min Universi [facility] Body height 2021-12-04 20:56:00 170.2 cm [facility] Body weight 2021-12-04 20:56:00 46.72 kg [facility] BMI 2021-12-04 20:56:00 16.13 kg/m2 [facility] height 2021-10-17 08:00:00 67 [in_i] [facility] weight 2021-10-17 08:00:00 109 [lb_av] [facility] temperature 2021-10-17 08:00:00 98 [degF] [facility] bmi 2021-10-17 08:00:00 17.07 kg/m2 [facility] blood pressure 2021-10-17 08:00:00 130 mm[Hg] [facility] systolic [facility] blood pressure 2021-10-17 08:00:00 80 mm[Hg] [facility] - diastolic [facility] height 2021-10-05 08:30:00 67 [in_i] Common [facility] weight 2021-10-05 08:30:00 109.1 [lb_av] Common [facility] temperature 2021-10-05 08:30:00 97.7 [degF] Common [facility] bmi 2021-10-05 08:30:00 17.09 kg/m2 [facility] oximetry 2021-10-05 08:30:00 100 % Common S [facility]irit [facility] respiratory rate 2021-10-05 08:30:00 18 /min Comm on [facility] blood pressure 2021-10-05 08:30:00 137 mm[Hg] [facility] - systolic [facility] blood pressure 2021-10-05 08:30:00 89 mm[Hg] [facility] - diastolic [facility] height 2021-07-13 15:00:00 67 [in_i] [facility] weight 2021-07-13 15:00:00 103.5 [lb_av] Common [facility] temperature 2021-07-13 15:00:00 97.9 [degF] Common S [facility] bmi 2021-07-13 15:00:00 16.21 kg/m2 [facility] S [facility] oximetry 2021-07-13 15:00:00 100 % Common S [facility] respiratory rate 2021-07-13 15:00:00 17 /min Comm on [facility] blood pressure 2021-07-13 15:00:00 129 mm[Hg] Common [facility] - systolic [facility] blood pressure 2021-07-13 15:00:00 85 mm[Hg] [facility] diastolic [facility] height 2021-05-19 11:10:00 67 [in_i] Common S [facility] weight 2021-05-19 11:10:00 107 [lb_av] Common S pirit [facility] temperature 2021-05-19 11:10:00 97.5 [degF] [facility] bmi 2021-05-19 11:10:00 16.76 kg/m2 [facility] bmi 2021-03-21 11:30:00 16.76 kg/m2 [facility] blood pressure 2021-03-21 11:30:00 125 mm[Hg] [facility] - systolic [facility] blood pressure 2021-03-21 11:30:00 75 mm[Hg] Common [facility] height 2021-03-21 11:30:00 67 [in_i] [facility] weight 2021-03-21 11:30:00 107 [lb_av] [facility] temperature 2021-03-21 11:30:00 98 [degF] [facility] height 2021-01-09 16:40:00 67 [in_i] Common S [facility] weight 2021-01-09 16:40:00 105 [lb_av] [facility] temperature 2021-01-09 16:40:00 98.5 [degF] [facility] bmi 2021-01-09 16:40:00 16.44 kg/m2 [facility] Procedures Procedure Date / Time Performed Performing Clinician [facility] e CONSENT/REFUSAL FOR 2022-04-09 05:40:38 Doctor Unassigned, No [facility] AND Name Medical Branch TREATMENT BASIC METABOLIC PANEL 2022-04-05 22:24:00 Baldev Alarcon [facility] (NA, K, CL, CO2, Medical Branch GLUCOSE, BUN, CREATININE, CA) CBC WITH DIFF 2022-04-05 22:24:00 Baldev Alarcon [place] [facility] CONSENT/REFUSAL FOR 2022-04-05 19:50:28 Doctor Unassigned, No Un [facility] DIAGNOSIS AND Name Medical Branch TREATMENT Encounters Start End Encounter Admission Attending Care Care Encounter Source Date/Time Date/Time Type Type Clinicians Facility Department ID 2021-11-13 Outpatient Shepard, STLMLC [facility] [id number] Common 13:38:00 [facility] 2021-11-10 Outpatient Vivek ROSS [facility] SOR [id number] Univers 10:45:18 CATHIE ma [facility] 2021-11-09 Outpatient Vivek ROSS [facility] SOR [id number] [facility] R ROSS, [facility] SOR [id number] Univers 16:22:13 CATHIE ma [facility] 2021-05-17 Outpatient Shepard, STLMLC STLMLC [id number] Common 14:17:09 [place] [id number] [facility] 2021-05-17 Outpatient Shepard, STLMLC STLMLC [id number] Common 13:50:42 [place] 86311 [facility] 2021-05-17 Outpatient Shepard, STLMLC STLMLC [id number] Common 13:50:27 [place] [id number] [facility] 2021-05-17 Outpatient Shepard, STLMLC STLMLC [id number] Common 13:28:45 [place] [id number] [facility] 2021-05-17 Outpatient Shepard, STLMLC STLMLC [id number] Common 12:51:57 [place] [id number] [facility] 2021-05-17 Outpatient Shepard, STLMLC STLMLC [id number] Common 12:45:56 [place] [id number] [facility] 2021-05-17 Outpatient Shepard, STLMLC STLMLC [id number] Common 12:39:56 [place] 83526 [facility] 2021-05-17 Outpatient Shepard, STLMLC STLMLC [id number] Common 12:39:35 [place] [id number] [facility] 2021-05-17 Outpatient Shepard, STLMLC STLMLC [id number] Common 12:38:37 [place] [id number] [facility] 2021-05-17 Outpatient Shepard, STLMLC STLMLC [id number] Common 12:33:47 [place] [id number] [facility] 2021-05-17 Outpatient Shepard, STLMLC STLMLC [id number] Common 12:32:33 [place] [id number] [facility] 2021-05-17 Outpatient Shepard, STLMLC STLMLC [id number] Common 12:29:13 [place] [id number] [facility] 2021-05-17 Outpatient Shepard, STLMLC STLMLC [id number] Common 12:25:07 [place] [id number] [facility] 2021-05-17 Outpatient Shepard, STLMLC STLMLC [id number] Common 12:24:31 [place] [id number] [facility] 2021-05-17 Outpatient Shepard, STLMLC STLMLC [id number] Common 12:07:53 [place] [id number] [facility] 2021-05-17 Outpatient Shepard, STLMLC STLMLC [id number] Common 12:07:23 [place] [id number] [facility] 2021-05-17 Outpatient Shepard, STLMLC STLMLC [id number] Common 11:59:39 [place] [id number] [facility] 2021-05-17 Outpatient Shepard, STLMLC STLMLC [id number] Common 11:37:35 [place] [id number] [facility] 2021-05-17 Outpatient Shepard, STLMLC STLMLC [id number] Common 11:16:40 [place] [id number] [facility] 2021-05-17 Outpatient Shepard, STLMLC STLMLC [id number] Common 11:10:01 [place] [id number] [facility] 2021-05-17 Outpatient Shepard, STLMLC STLMLC [id number] Common 11:07:07 [place] [id number] [facility] 2021-05-17 Outpatient Shepard, STLMLC STLMLC [id number] Common 10:59:13 [place] [id number] [facility] 2021-05-17 Outpatient Shepard, STLMLC STLMLC [id number] Common 10:57:50 [place] 99301 [facility] 2021-02-19 Emergency [facility] [id number] Univers 19:59:15 [facility] 2021-02-19 Emergency [facility] [id number] Univers 15:25:26 [facility] 2022-05-21 2022-05-21 Outpatient R EDY [facility] [id number] Univers 08:30:00 08:30:00 AFAQ ity [facility] 2022-05-21 2022-05-21 Outpatient R EDY [facility] [id number] Univers 08:30:00 08:30:00 [facility]-08 2022-04-09 Emergency X Jose QUINTANILLA [facility] ERT [id number] Univers 23:47:00 00:39:00 ity [facility] 2022-04-08 2022-04-09 Emergency Jose Quintanilla [facility] 1.2.840.114 [id number] Univers 23:47:00 00:39:00 Alyssa TENORIO 350.1.13.10 i ty of [place] 4.2.7.2.686 [facility] [id number] [address] 2022-04-06 2022-04-06 Emergency [place], [facility] [place] [id number] [facility] 19:08:00 22:00:00 Jian Kyle [facility] 2022-04-05 2022-04-05 Emergency X BERTA [facility] ERT [id number] Univers 14:09:00 17:11:00 BALDEV [facility] 2022-04-05 2022-04-05 Emergency [facility] 1.2.077.295 [id number] Univers 14:09:00 17:11:00 Baldev TENORIO 350.1.13.10 i ty [facility] 4.2.7.2.686 [facility] [id number] [address] 2022-03-02 2022-03-02 [facility] [id number] Co mmon 00:00:00 00:00:00 VISIT Spirit ESTAB PT - CHI LEVEL 4 [facility] 2022-02-28 2022-02-28 [facility] [id number] Co mmon 00:00:00 00:00:00 Spirit - CHI [facility] 2022-01-15 2022-01-15 Outpatient R [facility] [id number] Univers 09:00:00 09:00:00 ity [facility] 2022-01-15 2022-01-15 Outpatient R [facility] [id number] Univers 09:00:00 09:00:00 ity of [facility] 2022-01-15 2022-01-15 Outpatient R SEBASTIAN [facility] [id number] Univers 09:00:00 09:00:00 TREVON ity o f [facility] 2022-01-15 2022-01-15 Outpatient R [facility] [id number] Univers 09:00:00 09:00:00 ity [facility] 2022-01-02 2022-01-[address] [facility] [id number] Co mmon 00:00:00 00:00:00 VISIT Lamine TORRES PT - CHI LEVEL 4 [facility] 2021-12-04 2021-12-04 Hospital [facility] 1.2.840.114 [id number] Univers 12:37:10 23:59:00 [facility] 350.1.13.10 ity of [place] 4.2.7.2.686 [place] [facility] [id number] [address] 2021-12-04 2021-12-04 Office [facility] 1.2.840.114 [id number] Univers 16:00:00 16:44:58 Visit Kerrie Theo [facility] 350.1.13.10 it y of [place] 4.2.7.2.686 Maksim as GORDON?BLEA [id number] [address] MEDICAL OFFICE BUILDING 2021-12-04 2021-12-04 Outpatient R ALFIE [facility] [id number] Univers 16:00:00 16:44:58 KERRIE itraz [facility] 2021-12-04 2021-12-04 Outpatient [facility] [id number] Univers 16:00:00 16:00:00 KERRIE [facility] 2021-12-04 2021-12-04 Telephone Vandana [facility] 1.2.840.114 [id number] Univers 00:00:00 00:00:00 Cathie Yuki HEALTH 350.1.13.10 it y [facility] 4.2.7.2.686 Maksim as GORDON?BLEA [phone] Me katerina PRECIADO [address] [facility] OFFICE [facility] 2021-12-04 2021-12-04 Telephone [facility] 1.2.848.243 [id number] Univers 00:00:00 00:00:00 Kerrie S HEALTH 350.1.13.10 it y of [place] 4.2.7.2.686 Maksim as GORDON?BLEA [phone] Me katerina PRECIADO [address] [facility] 2021-11-29 2021-11-29 Office [facility] 1.2.840.114 [id number] Univers 15:15:00 16:25:54 Visit Kerrie S HEALTH 350.1.13.10 it y of [place] 4.2.7.2.686 Maksim as GORDON?BLEA [id number] Va katerina PRECIADO [address] [place] [address] 2021-11-29 2021-11-29 Outpatient Vivek [facility] [id number] Univers 15:15:00 16:25:54 KERRIE raz [facility] 2021-11-29 2021-11-29 Outpatient R [facility] [id number] Univers 15:15:00 15:15:00 KERRIE [facility] 2021-11-28 2021-11-28 Telephone [facility] 1.2.840.114 [id number] Univers 00:00:00 00:00:00 Cathie HEALTH 350.1.13.10 it y of [place] 4.2.7.2.686 Maksim as GORDON?BLEA [phone] Va katerina PRECIADO [address] [place] [address] 2021-11-27 2021-11-27 Outpatient R VANDANA [facility] [id number] Univers 16:15:00 16:15:00 CATHIE ma [facility] 2021-11-20 2021-11-20 Outpatient [facility] [id number] Univers 14:45:00 15:20:56 CATHIE ma [facility] 2021-11-20 2021-11-20 Office [facility] 1.2.708.934 [id number] Univers 14:45:00 15:20:56 Visit Cathie Markerly 350.1.13.10 it y of [place] 4.2.7.2.686 Maksim as GORDON?BLEA [id number] Va katerina PRECIADO [address] MEDICAL OFFICE [facility] 2021-11-18 2021-11-18 Outpatient R [facility] [id number] Univers 12:53:52 23:59:00 JACQUELINE ity [facility] 2021-11-18 2021-11-18 Hospital [facility] 1.2.840.114 [id number] Univers 12:53:52 23:59:00 [facility] 350.1.13.10 ity of [place] 4.2.7.2.686 Maksim as GORDON?BLEA [phone] Va katerina PRECIADO [address] [facility] OFFICE [facility] 2021-11-18 2021-11-18 Urgent [facility] 1.2.840.11 [id number] Univers 12:40:00 13:00:00 Care Da [facility] 350.1.13.10 ity of [place] 4.2.7.2.686 Maksim as GORDON?BLEA [id number] Va katerina PRECIADO [address] [facility] OFFICE [facility] 2021-11-18 2021-11-18 Emergency X [facility] ERT [id number] Univers 00:10:00 00:42:00 NEMADELIN [facility] 2021-11-18 2021-11-18 Emergency [facility] 1.2.528.613 [id number] Univers 00:10:00 00:42:00 Trino S [place] 350.1.13.10 ity of [place] 4.2.7.2.686 [place] [id number] [facility] [address] [place] 2021-11-17 2021-11-17 Orders Doctor BIANCA 1.2.840.114 [id number] Univers 00:00:00 00:00:00 Only Unassigned, MICHAEL 350.1.13.10 ity of [place] [facility] 4.2.7.2.686 Maksim as [phone] [facility] [address] [place] 2021-11-16 2021-11-16 Office [facility] 1.2.840.114 [id number] Univers 13:30:00 13:44:47 Visit Kerrie Dubois HEALTH 350.1.13.10 it y of [place] 4.2.7.2.686 Maksim as GORDON?BLEA [phone] Va katerina BUSTOS [address] [facility] OFFICE [facility] 2021-11-16 2021-11-16 Outpatient [facility] [id number] Univers 13:30:00 13:44:47 [facility] 2021-11-16 2021-11-16 Outpatient R [facility] [id number] Univers 13:30:00 13:30:00 [facility] 2021-11-15 2021-11-15 Telephone [facility] 1.2.840.114 [id number] Univers 00:00:00 00:00:00 Cathie Mirza HEALTH 350.1.13.10 it y [facility] 4.2.7.2.686 Maksim as GORDON?BLEA [phone] Va katerina [address] 2021-11-13 2021-11-13 Surgery [facility] 1.2.687.595 [id number] Univers 14:00:00 14:57:00 Cathie TENORIO 350.1.13.10 i ty of [facility] 4.2.7.2.686 [place] SUR[place]ICAL [id number] [facility] [address] [place] 2021-11-13 2021-11-13 [facility] [id number] Univers 11:04:00 14:30:00 CATHIE itraz [facility] 2021-11-13 2021-11-13 [facility] 1.2.840.114 [id number] Univers 11:04:00 14:30:00 Encounter Cathie TENORIO 350.1.13.10 ity of [facility] 4.2.7.2.686 [place] SUR[place]ICAL [id number] [facility] [address] [place] 2021-11-13 2021-11-13 Outpatient R EDY [facility] [id number] Univers 08:00:00 09:01:53 AFAQ ity of [facility] 2021-11-13 2021-11-13 Office [facility] 1.2.615.555 [id number] Univers 08:00:00 09:01:53 Visit Afaq HEALTH 350.1.13.10 it y of [place] 4.2.7.2.686 [place] [phone] [facility] [address] [place] OFFICE BUILDING 2021-11-13 2021-11-13 Telephone [facility] 1.2.840.114 [id number] Univers 00:00:00 00:00:00 Cathie Mirza HEALTH 350.1.13.10 it y of [place] 4.2.7.2.686 Maksim as GORDON?BLEA [phone] Va dicyumiko KNEY [address] [facility] OFFICE BUILDING 2021-11-10 2021-11-10 Hospital [facility] 1.2.840.114 [id number] Univers 10:43:14 23:59:00 Encounter Cathie Mirza COBY 350.1.13.10 ity of [place] 4.2.7.2.686 [place] [phone] [facility] [address] [place] 2021-11-10 2021-11-10 [employer] Nancy, Dani Lab Main [facility] 1.2.8 40.114 [id number] Univers 11:15:00 11:30:00 Visit RossCathie sapp COBY 350.1.13.10 ity of [place] 4.2.7.2.686 [place] [phone] Va dicyumiko [facility] 353 [facility] 2021-11-10 2021-11-10 Outpatient [facility] [id number] Univers 10:38:25 10:42:00 CATHIE ity of [facility] 2021-11-10 2021-11-10 Laboratory Only, Adc Test [facility] 1.2.840. 114 [id number] Univers 08:30:00 08:45:00 Only Cathie Ross COBY 350.1.13.10 ity of [place] 4.2.7.2.686 [place] [id number] [facility] [address] [place] 2021-11-10 2021-11-10 Telephone [facility] 1.2.840.114 [id number] Univers 00:00:00 00:00:00 Cathie Mirza [employer] 350.1.13.10 it y of [place] 4.2.7.2.686 Maksim as GORDON?BLEA [phone] Va katerina PRECIADO [address] [place] [address] OFFICE [facility] 2021-11-10 2021-11-10 (TEL) [facility] [id number] Co mmon 00:00:00 00:00:00 [facility] 2021-11-09 2021-11-09 Telephone [facility] 1.2.840.114 [id number] Univers 00:00:00 00:00:00 Cathie Mirza [employer] 350.1.13.10 it y of [place] 4.2.7.2.686 Maksim as GORDON?BLEA [phone] Va katerina PRECIADO [address] [place] [address] OFFICE [facility] 2021-11-09 2021-11-09 Telephone [facility] 1.2.840.114 [id number] Univers 00:00:00 00:00:00 Cathie Mirza [employer] 350.1.13.10 it y of [place] 4.2.7.2.686 Maksim as GORDON?BLEA [id number] Va katerina PRECIADO [address] [place] [address] OFFICE [facility] 2021-11-08 2021-11-08 Outpatient [facility] [id number] Univers 15:30:00 15:55:00 CATHIE [facility] 2021-11-08 2021-11-08 Office [facility] 1.2.409.544 [id number] Univers 15:30:00 15:55:00 Visit Cathie Mirza [employer] 350.1.13.10 it y of [place] 4.2.7.2.686 Maksim as GORDON?BLEA [phone] Va katerina PRECIADO [address] [place] [address] OFFICE [facility] 2021-11-08 2021-11-08 Prep For [facility] 1.2.840.114 [id number] Univers 00:00:00 00:00:00 Surgery Cathie Mirza HEALTH 350.1.13.10 it y of [place] 4.2.7.2.686 Maksim as GORDON?BLEA [phone] Me dical KNEY [address] MEDICAL OFFICE BUILDING 2021-11-07 2021-11-07 (TEL) STLC STLC [id number] Co mmon 00:00:00 00:00:00 [facility] 2021-11-03 2021-11-03 Outpatient [facility] [id number] Univers 08:00:00 08:00:00 KERRIE francesca [facility] 2021-10-30 2021-10-30 Outpatient [facility]ivek [facility] [id number] Univers 14:00:00 14:05:17 PAGE raz [facility] 2021-10-30 2021-10-30 Urgent Consuelo Vu [facility] 1.2.840. 114 [id number] Univers 14:00:00 14:05:17 Dorita Roberson [facility] 350.1.13.10 ity of [place] 4.2.7.2.686 Maksim as GORDON?BLEA [id number] Me dicyumiko PRECIADO [address] [facility] OFFICE [facility] 2021-10-29 2021-10-29 Outpatient R [facility] [id number] Univers 13:44:17 23:59:00 JOSSJANE shravanraz [facility] 2021-10-29 2021-10-29 [facility] 1.2.447.548 [id number] Univers 13:44:17 23:59:00 Encounter Rania HEALTH 350.1.13.10 ity of [place] 4.2.7.2.686 Maksim as GORDON?BLEA [phone] Me dical ILANA [address] MEDICAL OFFICE [facility] 2021-10-29 2021-10-29 Urgent [facility] 1.2.840.114 [id number] Univers 14:40:00 14:40:00 Care Rania HEALTH 350.1.13.10 it y of [place] 4.2.7.2.686 Maksim as GORDON?BLEA [phone] Me dical ILANA [address] MEDICAL OFFICE [facility] 2021-10-29 2021-10-29 Outpatient R [facility] [id number] Univers 14:40:00 14:11:23 JOSSIA ity [facility] 2021-10-17 2021-10-17 OFFICE STLMLC STLC [id number] Co mmon 00:00:00 00:00:00 VISIT Lamine TORRES PT [facility] LEVEL 4 [facility] 2021-10-05 2021-10-05 (WELLNESS) STLMLC STLMLC [id number] Common 00:00:00 00:00:00 Wellness Spiri t Visit [facility] 2021-10-03 2021-10-03 (TEL) STLMLC STLMLC [id number] Co mmon 00:00:00 00:00:00 [facility] 2021-10-02 2021-10-02 (TEL) STLMLC STLMLC [id number] Co mmon 00:00:00 00:00:00 [facility] 2021-08-14 2021-08-14 Nurse Visit, [facility] Nurse [facility] 1.2 .840.114 [id number] Univers 09:30:00 09:53:56 Visit Trevon Cortes EVS TECH 350.1.13.10 ity of [place] 4.2.7.2.686 Maksim as MATERNAL [phone] Med ical & CHILD [address] [place] [address] 2021-08-14 2021-08-14 Outpatient R [facility] [id number] Univers 09:30:00 09:30:00 ity [facility] 2021-08-14 2021-08-14 Outpatient [facility] [id number] Univers 09:30:00 09:30:00 TREVON cheneyy o f [facility] 2021-08-07 2021-08-07 (TEL) [facility] [id number] Co mmon 00:00:00 00:00:00 [facility] 2021-07-17 2021-07-17 Telephone Bryce [facility] 1.2.840.114 [id number] Univers 00:00:00 00:00:00 Pratima Shore EVS TECH 350.1.13.10 ity of REGION[place] 4.2.7.2.686 Maksim as MATERNAL [phone] Med ical & CHILD 107 [facility] 2021-07-17 2021-07-17 Orders Doctor VALENZUELA 1.2.840.114 [id number] Univers 00:00:00 00:00:00 Only Unassigned, MICHAEL 350.1.13.10 ity of [place] [facility] 4.2.7.2.686 Maksim as [id number] [address] 2021-07-13 2021-07-13 Outpatient [facility] [id number] Univers 09:15:00 09:58:35 PRATIMA ma o [facility] 2021-07-13 2021-07-13 Office [facility] 1.2.353.484 [id number] Univers 09:15:00 09:58:35 Visit Pratima [place] EVS TECH 350.1.13.[address] [facility] 4.2.7.2.686 Maksim as MATERNAL [id number] [facility] ical & CHILD [address] [place] [address] 2021-07-13 2021-07-13 Outpatient R [facility] [id number] Univers 09:15:00 09:58:35 PRATIMA cornell [facility] 2021-07-13 2021-07-13 Letter [facility] 1.2.791.311 [id number] Univers 00:00:00 00:00:00 (Out) Pratima C EVS TECH 350.1.13.[address] [facility] 4.2.7.2.686 Maksim as MATERNAL [phone] [facility] ical & CHILD [address] [place] [address] 2021-07-13 2021-07-13 Telephone [facility] 1.2.840.114 [id number] Univers 00:00:00 00:00:00 Pratima C EVS TECH 350.1.13.[address] [facility] 4.2.7.2.686 Maksim as MATERNAL [phone] [facility] ical & CHILD [address] [place] [address] 2021-07-13 2021-07-13 OFFICE [facility] [id number] Co mmon 00:00:00 00:00:00 VISIT Spirit ESTAB PT - CHI LEVEL 4 [facility] 2021-07-03 2021-07-03 Outpatient GC_SWHAOMC_ PRIV PRIV [id number] [facility] 01:43:00 01:43:00 Rohit [id number] [facility] 2021-06-14 2021-06-14 (TEL) STLMLC STLMLC [id number] Co mmon 00:00:00 00:00:00 Spirit - CHI [facility] 2021-06-04 2021-06-04 Outpatient R ANT [facility] [id number] Univers 14:00:00 15:49:40 COSME Dubois it y of [facility] 2021-06-04 2021-06-04 Urgent Cosme Davis [facility] 1.2 .840.114 [id number] Univers 14:00:00 14:20:00 Care Shin [employer] 350.1.13.10 ity of [place] 4.2.7.2.686 Maksim as GORDON?BLEA [id number] [address] MEDICAL OFFICE BUILDING 2021-05-19 2021-05-19 OFFICE STLM STLC [id number] Co mmon 00:00:00 00:00:00 VISIT EST Spir it PT LEVEL 3 - CHI [facility] 2021-04-12 2021-04-12 Letter BIANCA Multani 1.2.840.114 [id number] Univers 00:00:00 00:00:00 (Out) Zakiya RODRIGUEZ 350.1.13.10 it y of [facility] 4.2.7.2.686 Maksim as [id number] [address] 2021-04-11 2021-04-11 Laboratory Only, Ang Db Test [facility] 1.2.8 40.114 [id number] Univers 11:15:00 11:30:00 Only Miley Doan [facility] 350.1.13.10 it[facility] 4.2.7.2.686 Maksim as GORDON?BLEA [id number] [address] MEDICAL OFFICE BUILDING 2021-04-11 2021-04-11 Outpatient R FRANKI [facility] [id number] Univers 11:15:00 11:15:00 MILEY ity of [facility] 2021-04-11 2021-04-11 Orders Doctor BIANCA 1.2.840.114 [id number] Univers 00:00:00 00:00:00 Only Unassigned, MICHAEL 350.1.13.10 ity of [place] [facility] 4.2.7.2.686 Maksim as [phone] [facility] [address] 2021-03-21 2021-03-21 OFFICE [facility] [id number] Co mmon 00:00:00 00:00:00 VISIT [facility] PT - CHI LEVEL 4 [facility] 2021-03-20 2021-03-20 (TEL[facility] [id number] Co mmon 00:00:00 00:00:00 Spirit - CHI [facility] 2021-03-17 2021-03-17 Telephone [facility] 1.2.885.453 [id number] Univers 00:00:00 00:00:00 Maci-Rehma PRIMARY 350.1.13.10 ity of n [place].2.[place] [phone] [place] dical [address] 2021-03-13 2021-03-13 Telephone [facility] 1.2.912.055 [id number] Univers 00:00:00 00:00:00 Maci-Rehma PRIMARY 350.1.13.10 ity of n [place] 4.2.7.2.686 [place] [phone] [place] dical [address] 2021-03-08 2021-03-08 Transition J CARLOS Funes 1.2.840.114 [id number] Univers 00:00:00 00:00:00 of Care Tiff M BERUMEN 350.1.13.10 i ty of [place]2.7.2.686 [place] [id number] [facility] [address] 2021-03-04 2021-03-07 Inpatient CHAD BALLESTEROS [facility] JENIFFER [id number] Univers 20:45:00 17:42:00 ity of [facility] 2021-03-04 2021-03-07 [facility] [place] [facility] 1.2.8 40.114 [id number] Univers 20:45:00 17:42:00 Encounter Chad Moran 350.1.13.1 0 ity [facility] 4.2.7.2.686 [place] [id number] [facility] [address] [place] 2021-03-04 2021-03-07 Inpatient X CHAD MORAN [facility] JENIFFER [id number] Univers 20:45:00 17:42:00 ity of [facility] 2021-03-04 2021-03-04 Emergency X [facility] ERT [id number] Univers 11:26:00 12:01:00 CLEMENTINA ity [facility] 2021-03-04 2021-03-04 Emergency [facility] 1.2.840.114 [id number] Univers 11:26:00 12:01:00 Clementina TENORIO 350.1.13.10 ity [facility] 4.2.7.2.686 [facility] [id number] [place] [address] [place] 2021-02-28 2021-03-03 Outpatient X [facility] JENIFFER [id number] Univers 23:10:00 12:00:00 SOLO [facility] 2021-02-28 2021-03-03 Emergency Baldev Alarcon [facility] 1.2.840.1 14 [id number] Univers 23:10:00 12:00:00 Solo Devi 350.1.13.10 ity [facility] 4.2.7.2.686 [facility] [id number] [address] 2021-02-28 2021-03-03 Outpatient X [facility] JENIFFER [id number] Univers 23:10:00 12:00:00 SOLO [facility] 2021-02-28 2021-02-28 (TEL) STLMLC STLMLC [id number] Co mmon 00:00:00 00:00:00 Spirit - CHI [facility] 2021-01-09 2021-01-09 OFFICE STLMLC STLMLC [id number] Co mmon 00:00:00 00:00:00 VISIT Spirit ESTAB PT - CHI LEVEL 4 [facility] 2020-11-10 2020-11-10 Outpatient STLMLC STLMLC [id number] Common 00:00:00 00:00:00 [facility] 2020-10-11 2020-10-11 Outpatient STLMLC STLMLC [id number] Common 00:00:00 00:00:00 [facility] 2020-08-18 2020-08-18 Transition J Carlos Funes [id number] Univers 00:00:00 00:00:00 of Care Tiff Berumen [id number] i ty of [place] [id number] Evie dubois [id number] [facility] [address] 2020-07-29 2020-07-29 Outpatient STLMLC STLMLC [id number] Common 00:00:00 00:00:00 [facility] 2020-07-18 2020-07-18 Outpatient STLMLC STLMLC [id number] Common 00:00:00 00:00:00 [facility] 2020-07-06 2020-07-06 Outpatient STLMLC STLMLC [id number] Common 00:00:00 00:00:00 [facility] 2020-06-29 2020-06-29 Outpatient STLMLC STLMLC [id number] Common 00:00:00 00:00:00 [facility] 2020-06-23 2020-06-23 Outpatient STLMLC STLMLC [id number] Common 00:00:00 00:00:00 [facility] 2020-06-03 2020-06-03 Outpatient STLMLC STLMLC [id number] Common 00:00:00 00:00:00 [facility] 2020-05-27 2020-05-27 Outpatient STLMLC STLMLC [id number] Common 00:00:00 00:00:00 [facility] 2020-05-11 2020-05-11 Outpatient STLMLC STLMLC [id number] Common 00:00:00 00:00:00 [facility] 2020-04-25 2020-04-25 Outpatient STLMLC STLMLC [id number] Common 00:00:00 00:00:00 [facility] 2020-03-15 2020-03-15 Outpatient STLMLC STLMLC [id number] Common 00:00:00 00:00:00 [facility] 2020-03-14 2020-03-14 Outpatient STLMLC STLMLC [id number] Common 00:00:00 00:00:00 [facility] 2020-03-07 2020-03-07 Outpatient STLMLC STLMLC [id number] Common 00:00:00 00:00:00 [facility] 2020-03-03 2020-03-03 [id number] [facility] 17:00:00 17:00:00 [facility] 2020-03-03 2020-03-03 Urgent Provider, [facility] [id number] 14:36:05 15:04:47 [facility] [id number] Care [place] [id number] Professio [id number] nal [facility] Office Building One 2020-03-03 2020-03-03 Urgent Provider, [facility] 1.2.840.114 [id number] [facility] 14:36:05 15:04:47 Care Kelly Perez [facility] 350.1.13.10 ity [facility] 4.2.7.2.686 Maksim as Professio [phone] [place]ical [address] Office Building One 2020-03-02 2020-03-02 Outpatient STLMLC STLMLC [id number] Common 00:00:00 00:00:00 [facility] 2020-02-29 2020-02-29 Outpatient STLMLC STLMLC [id number] Common 00:00:00 00:00:00 [facility] 2020-02-17 2020-02-17 Outpatient STLMLC STLMLC [id number] Common 00:00:00 00:00:00 [facility] 2020-02-16 2020-02-16 Outpatient STLMLC STLMLC [id number] Common 00:00:00 00:00:00 [facility] 2020-01-18 2020-01-18 [facility] [id number] Common 00:00:00 00:00:00 [facility] 2019-12-08 2019-12-08 Outpatient Vivek GONZALES [facility] [id number] Univers 16:40:00 16:40:00 RAJESH ma [facility] 2019-12-07 2019-12-07 [facility] [id number] Common 14:00:00 14:00:00 [address] [facility] 2019-12-07 2019-12-07 [facility] [id number] Common 11:54:00 11:54:00 t [address] [facility] 2019-12-03 2019-12-03 [facility] [id number] Common 13:00:00 13:00:00 t [facility] 2019-12-03 2019-12-03 [facility] [id number] Common 08:34:00 08:34:00 t [address] Sp[address] [facility] 2019-12-02 2019-12-02 [facility] [id number] Common 08:44:00 08:44:00 t [address] [facility] 2019-12-01 2019-12-01 Out[facility] [id number] Common 13:53:00 13:53:00 t [address] [facility] 2019-11-26 2019-11-26 [facility] [id number] Common 14:00:00 14:00:00 t [address] [facility] 2019-11-24 2019-11-24 Darwin Sher [facility] 1.2.840.114 [id number] 00:00:00 00:00:00 Jennifer Tenorio 350.1.13.10 Edwin 4.2.7.2.686 Professio [phone] nal 059 [facility] 2019-11-24 2019-11-24 Refalysha Sher, [facility] 1.2.840.114 [id number] Univers 00:00:00 00:00:00 Jennifer [place] 350.1.13.10 ity of [place].7.2.686 [place] Profess[place] [phone] Va dical nal 9 [facility] 2019-11-18 2019-11-18 Out[facility] [id number] Common 13:45:00 13:45:00 t [employer] Spir [employer] [facility] 2019-11-17 2019-11-17 Hospital Radiology [facility] 1.2.840.114 [id number] 10:00:00 23:59:00 Encounter [place] 350.1.13.10 [place] 4.2.7.2.686 Alpha [phone] 807 2019-11-17 2019-11-17 [facility] Radiology [facility] 1.2.840.114 [id number] Univers 10:00:00 23:59:00 Encounter [place] 350.1.13.10 ity of [place].7.2.[place] [phone] [facility] [address] [place] 2019-11-17 2019-11-17 Outpatient R RADIOLOGY [facility] [id number] Univers 00:00:00 00:00:00 ity of [facility] 2019-11-17 2019-11-17 Orders Doctor VALENZUELA 1.2.840.114 [id number] 00:00:00 00:00:00 Only Unassigned, MICHAEL 350.1.13.10 [place] [facility] [id number] 009 2019-11-17 2019-11-17 Orders Doctor BIANCA 1.2.840.114 [id number] Univers 00:00:00 00:00:00 Only Unassigned, MICHAEL 350.1.13.10 ity of [place] [facility] 4.2.7.2.686 Maksim as [phone] [facility] [address] [place] 2019-11-16 2019-11-16 [facility] [id number] Common 13:15:00 13:15:[address] [facility] [address] [facility] 2019-11-09 2019-11-09 Outpatient R CHRISTOS [facility] [id number] Univers 15:00:00 15:00:00 JENNIFER itraz o f [facility] 2019-10-09 2019-10-09 Outpatient Leidy [facility] [id number] Common 11:37:00 11:37:[address] [facility] 2019-10-07 2019-10-07 Urgent Provider, [facility] [id number] 11:38:03 12:05:01 Care [facility] 350.1.13.10 Care [place] 4.2.7.2.686 Professio [phone] [place] [address] [address] One 2019-10-07 2019-10-07 Urgent Provider, [facility] 1.2.840.114 [id number] Univers 11:38:03 12:05:01 Care Chris, Kelly A Health 350.1.13.10 ity of [place] 4.2.7.2.686 Maksim as Professio [phone] [place] dical [address] Office Building One 2019-10-07 2019-10-07 Outpatient R CHRIS, [facility] [id number] Univers 11:40:00 11:40:00 KELLY ma of [facility] 2019-10-06 2019-10-06 Orders Doctor VALENZUELA 1.2.840.114 [id number] 00:00:00 00:00:00 Only Unassigned, MICHAEL 350.1.13.10 [place] [facility] [id number] 009 2019-10-06 2019-10-06 Orders Doctor BIANCA 1.2.840.114 [id number] Univers 00:00:00 00:00:00 Only Unassigned, MICHAEL 350.1.13.10 ity of [place] [facility] 4.2.7.2.686 Maksim as [phone] [address] 2019-09-23 2019-09-23 Outpatient Leidy [facility] [id number] Common 13:15:00 13:15:00 t [address] [place] [address] [facility] 2019-09-17 2019-09-17 [facility] [id number] Common 16:41:00 16:41:00 t [address] Sp[address] [facility] 2019-07-27 2019-07-27 Out[facility] [id number] Common 10:13:00 10:13:00 t [address] Sp[address] [facility] 2019-07-24 2019-07-24 Outpatient [facility] [id number] Common 10:00:00 10:00:00 t [address] [facility] 2019-07-06 2019-07-06 Out[facility] [id number] Common 08:54:00 08:54:00 t [address] [facility] 2019-06-29 2019-06-29 Outpatient [facility] [id number] Common 10:28:00 10:28:00 t [address] [facility] 2019-06-24 2019-06-24 Outpatient [facility] [id number] Common 14:42:00 14:42:00 t [address] [facility] 2019-06-18 2019-06-18 Outpatient [facility] [id number] Common 11:23:00 11:23:00 t [address] [facility] 2019-06-18 2019-06-18 Outpatient [facility] [id number] Common 08:19:00 08:19:00 t [address] [facility] 2019-06-16 2019-06-16 Outpatient [facility] [id number] Common 13:45:00 13:45:00 t [address] [facility] 2019-06-11 2019-06-11 Emergency [facility] [id number] 13:06:23 16:30:00 Baldev Tenorio 350.1.13.10 [place] 4.2.7.2.686 Alpha [phone] [facility] 2019-06-11 2019-06-11 Emergency Alarcon, [facility] [id number] Univers 13:06:23 16:30:00 Baldev Tenorio 350.1.13.10 i ty of [place] 4.2.7.2.686 [facility] [phone] [address] 2019-06-11 2019-06-11 Emergency X ALARCON, [facility] ERT [id number] Univers 13:06:23 16:30:00 BALDEV ity [facility] 2019-06-11 2019-06-11 Emergency [facility] [id number] Univers 13:06:23 16:30:00 BALDEV ity [facility] 2019-06-07 2019-06-07 Emergency Noreen, [facility] [id number] 15:32:13 16:50:00 Sabra Tenorio 350.1.13.10 [place] 4.2.7.2.686 Alpha [phone] [facility] 2019-06-07 2019-06-07 Emergency Noreen, [facility] 1.2.860.422 [id number] Univers 15:32:13 16:50:00 Sabra Tenorio 350.1.13.10 i ty of [place] 4.2.7.2.686 [facility] [phone] [address] 2019-06-07 2019-06-07 Emergency X NOREEN, [facility] ERT [id number] Univers 15:32:13 16:50:00 CYNKAITY ity [facility] 2019-06-07 2019-06-07 Emergency X NOREEN, [facility] ERT [id number] Univers 15:32:13 16:50:00 CYNKAITY ity [facility] 2019-06-07 2019-06-07 Orders Doctor VALENZUELA 1.2.840.114 [id number] 00:00:00 00:00:00 Only Unassigned, MICHAEL 350.1.13.10 [place] [facility] 4.2.7.2.686 [id number] 009 2019-06-07 2019-06-07 Orders Doctor [facility] 1.2.840.114 [id number] Univers 00:00:00 00:00:00 Only Unassigned, MICHAEL 350.1.13.10 ity of [place] [facility] 4.2.7.2.686 [facility] [phone] [facility] [address] 2019-06-02 2019-06-02 Out[facility] [id number] Common 14:30:00 14:30:00 t [address] [facility] 2019-06-01 2019-06-01 Outpatient [facility] [id number] Common 13:24:00 13:24:00 t [address] [facility] 2019-05-28 2019-05-28 Emergency [facility], [facility] 1.2.840.114 [id number] 18:41:42 20:29:00 Brandi Tenorio 350.1.13.10 [place] 4.2.7.2.686 Alpha [phone] [facility] 2019-05-28 2019-05-28 Emergency [facility], [facility] 1.2.840.114 [id number] Univers 18:41:42 20:29:00 Brandi Tenorio 350.1.13.10 ity [facility] 4.2.7.2.686 [facility] [phone] [facility] [address] 2019-05-26 2019-05-26 [facility] [id number] Common 15:00:00 15:00:00 [address] [facility] 2019-04-30 2019-04-30 Out[facility] [id number] Common 10:17:00 10:17:00 t [address] [facility] 2019-04-30 2019-04-30 Out[facility] [id number] Common 08:15:00 08:15:00 t [address] [facility] 2019-04-24 2019-04-24 Out[facility] [id number] Common 10:15:00 10:15:00 t [address] [facility] 2019-03-26 2019-03-26 Out[facility] [id number] Common 16:00:00 16:00:00 t [address] [facility] 2019-02-26 2019-02-26 Out[facility] [id number] Common 09:01:00 09:01:00 t [address] [facility] 2019-02-13 2019-02-13 Outpatient [facility] [id number] Common 15:50:00 15:50:00 t [address] [facility] 2019 2019 Outpatient [facility] [id number] Common 14:30:00 14:30:00 t [address] [facility] 2019-01-02 2019-01-02 Emergency [facility] 1.2.840.114 714 [facility] 17:15:03 19:16:00 Brandi Tenorio 350.1.13.10 [place] [address] [place] [address] [phone] [facility] 2019-01-02 2019-01-02 Emergency [facility] 1.2.840.[address] [place] [address] 17:15:03 19:16:00 Brandi Tenorio 350.1.13.10 ity of [place] 4.2.7.2.686 [facility] [phone] [address] 2019-01-02 2019-01-02 Orders Doctor BIANCA 1.2.840.114 [id number] 00:00:00 00:00:00 Only Unassigned, MICHAEL 350.1.13.10 [place] [facility] 42.7.2.686 [id number] 009 2019-01-02 2019-01-02 Orders Doctor BIANCA 1.2.840.114 [id number] Univers 00:00:00 00:00:00 Only Unassigned, MICHAEL 350.1.13.10 ity of [place] [address].2.7.2.686 Maksim as [phone] [facility] [address] 2018-12-31 2018-12-31 Outpatient [facility] [id number] Common 14:17:00 14:17:[address] [facility] 2018-12-29 2018-12-29 Office [facility] 1.2.840.114 [id number] 09:44:07 09:59:07 Visit Eliezer Lay 350.1.13.10 [place] 4.2.7.2.686 BANK [phone] [facility]. 144 2018-12-29 2018-12-29 Office [facility] 12.840.114 [id number] Univers 09:44:07 09:59:07 Visit Eliezer Raz 350.1.13.10 it y of [facility] 4.2.7.2.686 Maksim as BANK [phone] [facility] [address] [place] 2018-12-29 2018-12-29 Letter [facility] 1.2.840.114 [id number] Univers 00:00:00 00:00:00 (Out) Eliezer Lay 350.1.13.10 it y of [facility] 4.2.7.2.686 Maksim as BANK [phone] [facility]. [address] 2018-12-24 2018-12-24 [facility] Radiology [facility] 1.2.840.114 [id number] Univers 16:06:07 23:59:00 Encounter Coby 350.1.13.10 ity of [place] 4.2.7.2.[place] [phone] [facility] [address] 2018-12-24 2018-12-24 Outpatient [facility] [id number] Common 10:45:00 10:45:[address] [facility] 2018-12-24 2018-12-24 Orders Doctor VALENZUELA 1.2.840.114 [id number] Univers 00:00:00 00:00:00 Only Unassigned, MICHAEL 350.1.13.10 ity of [place] [facility] 4.2.7.2.686 Maksim as [phone] [facility] [address] 2018-12-09 2018-12-09 Out[facility] [id number] Common 15:05:00 15:05:00 [address] Sp[address] [facility] 2018-12-08 2018-12-08 Out[facility] [id number] Common 13:15:00 13:15:00 t [address] [facility] 2018-11-26 2018-11-26 Outpatient [facility] [id number] Common 16:19:00 16:19:00 t [address] [facility] 2018-11-18 2018-11-18 Outpatient [facility] [id number] Common 09:00:00 09:00:00 t [address] [facility] 2018-11-15 2018-11-15 Urgent Jayden Leahy [facility] 1.2.840.11 [id number] [facility] 13:23:07 13:57:49 Care Unknown, Attending Health 350.1.13.10 ity of Surgical 4.2.7.2.686 Maksim as Specialti [phone] Va dical es [address] [place] 2018-10-24 2018-10-24 Outpatient [facility] [id number] Common 16:15:00 16:15:00 t [address] [facility] 2018-10-21 2018-10-21 Outpatient [facility] [id number] Common 14:30:00 14:30:00 t [address] [facility] 2018-08-22 2018-08-22 Outpatient [facility] [id number] Common 09:30:00 09:30:00 t [address] [facility] 2018-08-16 2018-08-16 Outpatient [facility] [id number] Common 11:37:00 11:37:00 t [address] Sp[address] [facility] 2018-08-14 2018-08-14 Out[facility] [id number] Common 08:30:00 08:30:00 t [address] Sp[address] [facility] 2018-08-13 2018-08-13 Out[facility] [id number] Common 15:15:00 15:15:00 t Specialty/U Sp kiki Specialty rology - [facility] /Urology Clinic [facility] 2018-07-23 2018-07-23 [facility] [id number] Common 15:00:00 15:00:00 t [address] [facility] 2018-06-23 2018-06-23 Out[facility] [id number] Common 13:45:00 13:45:00 t [address] [facility] 2018-06-09 2018-06-09 Outpatient [facility] [id number] Common 11:19:00 11:19:00 t [facility] Clinic [facility] 2018-06-03 2018-06-03 Out[facility] [id number] Common 08:02:00 08:02:00 t [address] [facility] 2018-06-02 2018-06-02 Outpatient [facility] [id number] Common 09:30:00 09:30:00 t [address] [facility] 2018-05-21 2018-05-21 Out[facility] [id number] Common 15:00:00 15:00:00 t [address] [facility] 2018-05-09 2018-05-09 Out[facility] [id number] Common 08:22:00 08:22:00 t [address] [facility] 2018-04-24 2018-04-24 Out[facility] [id number] Common 15:45:00 15:45:00 t [address] [facility] 2018-04-04 2018-04-04 [facility] [id number] Common 09:15:00 09:15:00 t [address] [facility] 2018-04-02 2018-04-02 Out[facility] [id number] Common 14:30:00 14:30:[address] [facility] 2018-01-28 2018-01-28 Out[facility] [id number] Common 13:00:00 13:00:[address] [facility] Results Test Description Test Time Test Comments Results Result [facility] Comments - CT NECK 2022-04-06 W/CONTRAST 21:37:00 [facility] : 1990 Sex: F Name: ETHEL AMATO [facility] : 1990 Age/S: 32 / F [address] Unit #: [id number] Loc: [place] [address] Phys: Shana Ross FIELD RADIO TECHNICIAN Acct: [id number] Dis Date: Status: REG ER PHONE #: [phone] Exam Date: 04/06/20222116 FAX #: Reason: PAIN EXAMS: CPT: [id number] CT NECK W/CONTRAST 54672 Location: CT neck, 04/06/22 TECHNIQUE: CT examination of the neck was performed with IV contrast. Patient given non ionic IV contrast. 2D Reformatted images acquired sagittally and coronally on the CT workstation using MPR software by agricultural research technologist. Scanning conducted in the axial plane contiguously from skull base through thoracic inlet. The examination was performed on a updated helical CT scanner utilizing low-dose radiation technique. Automatic exposure control was utilized to reduce radiation dose. Unless otherwise specified , incidental findings do not require dedicated imaging follow up. The DLP is 148.72 mGy- cm CLINICAL HISTORY: Right lower tooth pain COMPARISON EXAM : None relevant to this exam FINDINGS: There is significant lucency and air associated with a tooth in the right mandible involving approximately tooth #30 consistent with dental caries. Do not see an abscess in this patient. Disruption of the cortex along its lateral ventral margin is noted. No significant finding within the oral cavity proper. The remainder the teeth appear fairly unremarkable. No abdominal or genic cyst. No significant sinusitis. No finding intracranially. No compromise of the airway. There is no abnormal masses are seen or pathological nodes. No mucosal abnormality of concern identified in the nasopharynx, oropharynx, hypopharynx or larynx. No salivary gland mass is seen. Assessment of the skull base unremarkable. Thyroid gland is unremarkable. Upper lung zones seen are unremarkable. No finding is seen intracranially. No necrotic masses. IMPRESSION: Findings consistent with a dental caries involving tooth in the right-sided mandible involving approximately tooth #30 without abscess or drainable collection. PAGE 1 Signed Report (CONTINUED) Name: ETHEL AMATO [facility] : 1990 Age/S: 32 / F [id number] Unit #: [id number] Loc: [place] [address] Phys: Shana Ross NP Acct: [id number] Dis Date: Status: REG ER PHONE #: [phone] Exam Date: 04/06/20222116 FAX #: Reason: PAIN EXAMS: CPT: [id number] CT NECK W/CONTRAST 80344 (Continued) at 2136 Reported and signed by: Cristina Arroyo M.D. CC: Shana Ross FIELD RADIO TECHNICIAN; Arnol Gonsalez MD Technologist:RT Naif(R)(CT) CTDI: DLP: Trnscb Date/Time: 04/06/2022 (2136) [email or web address] Orig Print D/T: S: 04/06/2022 (2139) PAGE 2 Signed Report COMPREHENSIVE METABOLIC PANEL 2022-04-06 20:53:00 Test Item Value Reference Range Interpretation Comme nts SODIUM (test code = NA) 139 mmol/L 134-147 N POTASSIUM (test code = K) 3.9 mmol/L 3.4-5.0 N CHLORIDE (test code = CL) 100 mmol/L 100-108 N CARBON DIOXIDE (test code 29 mmol/L 21-32 N = CO2) ANION GAP (test code = 10.0 GAP calc 4.0-15.0 N GAP) GLUCOSE (test code = GLU) 77 MG/DL 70-110 N BLOOD UREA NITROGEN (test 14 MG/DL 7-18 N code = BUN) GLOMERULAR FILTRATION >=60 max estimate >60 T he Glomerular Filtration RATE (test code = GFR) estGFR Rate is a calculated parameterbased on serum Creatinine, pat ient age and sex. GFR values less than 60 mL/min/1.73 squ are meters are indicative ofChronic Kidney Disease. Values less than 15 mL/min/ 1.73square meters indicate Kidney failure. The ca lculation forGFR is based on the CKD-EPI (202) calculation. This formulais race indifferent and is the recommended for joseph for GFRby the [facility] Kidney Foundation for Adults.The GFR will not ca lculate if the sex is unkn own or if thepatient's ag e is <18 years. CREATININE (test code = 0.7 MG/DL 0.6-1.0 N CREAT) TOTAL PROTEIN (test code 7.7 G/DL 6.4-8.2 N = PROT) ALBUMIN (test code = ALB) 3.9 G/DL 3.4-5.0 N GLOBULIN (test code = 3.8 GM/dL GLOB) ALBUMIN/GLOBULIN RATIO 1.0 RATIO 1.2-2.2 L (test code = A/G) CALCIUM (test code = CA) 8.8 MG/DL 8.5-10.1 N BILIRUBIN TOTAL (test 0.60 MG/DL 0.2-1.2 N code = BILT) SGOT/AST (test code = 146 Unit/L 15-37 H AST) SGPT/ALT (test code = 67 Unit/L 12-78 N ALT) ALKALINE PHOSPHATASE 89 Unit/L 45-117 N TOTAL (test code = ALKP) CBC W/AUTO [id number] 20:25:00 Test Item Value Reference Range Interpretation Comments WHITE BLOOD CELL (test code = 3.2 K/mm3 3.5-11.0 L WBC) RED BLOOD CELL (test code = 4.17 M/mm3 4.70-6.10 L RBC) HEMOGLOBIN (test code = HGB) 13.8 G/DL 10.4-14.9 N HEMATOCRIT (test code = HCT) 39.0 % 31.5-44.1 N MEAN CELL VOLUME (test code = 93.5 Fl 84.5-98.6 N MCV) MEAN CELL HGB (test code = MCH) 33.1 pg 27.0-34.2 N MEAN CELL HGB CONCETRATION 35.4 G/DL 31.5-34.0 H (test code = MCHC) RED CELL DISTRIBUTION WIDTH 12.1 SD 11.5-14.5 N (test code = RDW) PLATELET COUNT (test code = 156 K/mm3 150-450 N PLT) MEAN PLATELET VOLUME (test code 9.50 fL 7.0-10.5 N = MPV) NEUTROPHIL % (test code = NT%) 47.1 % 40-76 N IMMATURE GRANULOCYTE % (test 0.0 % 0.0-5.0 N code = IG%) LYMPHOCYTE % (test code = LY%) 40.9 % 20.5-51.1 N MONOCYTE % (test code = MO%) 9.4 % 1.7-9.3 H EOSINOPHIL % (test code = EO%) 1.3 % 0.0-6.0 N BASOPHIL % (test code = BA%) 1.3 % 0.0-2.0 N NUCLEATED RBC % (test code = 0.0 /100WBC% 0.0-1.0 N NRBC%) NEUTROPHIL # (test code = NT#) 1.5 K/mm3 1.8-7.6 L IMMATURE GRANULOCYTE # (test 0.00 x10 3/uL 0.00-0.03 N code = IG#) LYMPHOCYTE # (test code = LY#) 1.3 K/mm3 0.6-3.2 N MONOCYTE # (test code = MO#) 0.3 K/mm3 0.3-1.1 N EOSINOPHIL # (test code = EO#) 0.0 K/mm3 0.0-0.4 N BASOPHIL # (test code = BA#) 0.0 K/mm3 0.0-0.1 N NUCLEATED RBC # (test code = 0.0 K/mm3 0.0-0.1 N NRBC#) MANUAL DIFF REQUIRED (test code NO DIFF/SCN CRITERIA = MDIFF) BASIC METABOLIC PANEL (NA, K, CL, CO2, GLUCOSE, BUN, CREATININE, CA)2022-04-05 23:02:55 Test Item Value Reference Range Interpretation Comments NA (test code = 141 mmol/L 135-145 [id number]) K (test code = 3.9 mmol/L 3.5-5.0 1874097063) CL (test code = 103 mmol/L 98-108 8483761802) CO2 TOTAL (test code = 31 mmol/L 23-31 7791737987) AGAP (test code = 2-16 1219537693) BUN (test code = 12 mg/dL 7-23 9896195050) GLUCOSE (test code = 85 mg/dL 70-110 1401778058) CREATININE (test code = 0.56 mg/dL 0.50-1.04 3579558432) CALCIUM (test code = 8.3 mg/dL 8.6-10.6 L [id number]) eGFR (test code = mL/min/1.73m2 7221173532) JASMYN (test code = JASMYN) Association of Glomerular Filtration Rate (GFR) and Staging of Kidney Disease* + --+ --+ ------+| GFR (mL/min/1.73 m2) ?| With Kidney Damage ?| ?Without Kidney Damage+ --------+ --------+ +| ?>90 ?| ?Stage one ?| ? Normal ?+ ---+ ---+ -------+| ?60-89 ?| ?Stage two ?| ? Decreased GFR ? + --+ --+ ------+| ?30-59 ?| ?Stage three ?| ? Stage three ? + --+ --+ ------+| ?15-29 ?| ?Stage four ? | ? Stage four ?+ ---+ ---+ -------+| ?<15 (or dialysis) ? ?| ?Stage five ? | ? Stage five ?+ ---+ ---+ -------+ *Each stage assumes the associated GFR level has been in effect for at least three months. ?Stages 1 to 5, with or without kidney disease, indicate chronic kidney disease. Notes: Determination of stages one and two (with eGFR >59mL/min/1.73 m2) requires estimation of kidney damage for at least three months as defined by structural or functional abnormalities of the kidney, manifested by either:Pathological abnormalities or Markers of kidney damage (including abnormalities in the composition of the blood or urine or abnormalities in imaging tests). Lab Interpretation Abnormal (test code = 01399-4) [facility] [place], [place]"
[2022-04-11 16:40] LABS: Absolute Lymphocytes (CBC) 1.1 K/uL (0.7-4.9); Hematocrit 40.6 % (36.0-45.0); Lymphocytes % 28.4 % (15.3-44.8); MCV 96.5 fL (80-100); MPV 7.6 fL (7.6-11.3); RBC Red Blood Cell Count 4.21 M/uL (3.86-4.86)
[2022-04-11] MEDS ORDERED: NA CHLORIDE 0.9% 1,000 ML ONE (16:56)
--- NOTE | 2022-04-11 17:12 | RAD REPORT ---
EXAM DESCRIPTION: CTFacial Bones W Con Mpr04/11/2022 4:58 pm CLINICAL HISTORY: Right facial pain and swelling COMPARISON: None. TECHNIQUE: Computed axial tomography of the face obtained with coronal and sagittal reconstruction. 50 cc Isovue-[address] scans are performed using dose optimization technique as appropriate and may include automated exposure control or mA/KV adjustment according to patient size. FINDINGS: Right mandibular tooth has been extracted. Artifact from several right tooth fillings obscures surrounding detail somewhat. Edema is present wit hin the superficial tissues adjacent to the right mandible. No abscess seen. The parotid and submandibular glands appear unremarkable. The parapharyngeal fat is clear. The visualized airway unremarkable IMPRESSION: Mild edema within the superficial tissue adjacent to the right mandible may indicate a m ild cellulitis No soft tissue abscess seen .
--- NOTE | 2022-04-11 17:28 | ER ---
Nurse's Notes [facility] Name: Ethel Amato Age: 32 yrs Sex: Female : 1990 Arrival Date: 04/11/2022 Time: 15:42 Bed 8 Private MD: Diagnosis: Cellulitis of face Presentation: 04/11 15:51 Chief complaint: Patient states: "I had a tooth extraction 2 weeks ago and I went to aa the dentist and they sent me to oromaxillary doctor and he sent me here". Pt states "I've been on Clindamycin and Flagyl for 1 week and it's not getting better". Swelling noted to right jaw. Coronavirus screen: At this time, the client does not indicate any symptoms associated with coronavirus-19. Ebola Screen: Patient denies travel to an Ebola-affected area in the 21 days before illness onset. Initial Sepsis Screen: Does the patient meet any 2 criteria? No. Patient's initial sepsis screen is negative. Does the patient have a suspected source of infection? Yes:. Risk Assessment: Do you want to hurt yourself or someone else? Patient reports no desire to harm self or others. Onset of symptoms was March 2022. 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 - Social history:: Smoking status: Patient/guardian denies using tobacco. Screenin:44 [facility] ED Fall Risk Assessment (Adult) History of falling in the last 3 months, kr3 including since admission No falls in past 3 months (0 pts) Confusion or Disorientation No (0 pts) Intoxicated or Sedated No (0 pts) Impaired Gait No (0 pts) Mobility Assist Device Used No (0 pt) Altered Elimination No (0 pt) Score/Fall Risk Level 0 - 2 = Low Risk. Abuse screen: Denies threats or abuse. Nutritional screening: No deficits noted. Tuberculosis screening: No symptoms or risk factors identified. Assessment: 17:13 General: Appears in no apparent distress. uncomfortable, Behavior is calm, cooperative, kr3 appropriate for age. Pain: Complains of pain in right cheek. Neuro: Level of Consciousness is awake, alert, obeys commands, Oriented to person, place, time, situation. Cardiovascular: Patient's skin is warm and dry. Respiratory: Airway is patent Respiratory effort is even, unlabored, Respiratory pattern is regular, symmetrical. GI: Abdomen is flat, non-distended. : No signs and/or symptoms were reported regarding the genitourinary system. EENT: right cheek swollen . Derm: Skin is intact, Skin is dry, Skin is pink, warm \\T\\ dry. Musculoskeletal: Circulation, motion, and sensation intact. Vital Signs: 15:51 BP 133 / 108; Pulse 82; Resp 18 S; Temp 98.1(O); Pulse Ox 100% on R/A; aa5 17:17 BP 154 / 107; Pulse 69; Resp 18; kr3 17:48 BP 128 / 94; Pulse 64; Resp 18; Pulse Ox 98% on R/A; kr3 ED Course: 15:42 Patient arrived in ED. rg4 15:51 Arm band placed on. aa5 15:53 [facility] jh7 15:53 Lico Patel MD is Attending Physician. jh7 15:53 Triage completed. aa5 15:55 Bed in low position. Call light in reach. Side rails up X 1. kr3 16:53 Beatris Neumann, LUIS EDUARDO is Primary Nurse. kr3 17:00 CT Facial Bones W/ Con \\T\\ Mpr In Process Unspecified. EDMS 17:26 Macario Gary DDS is Referral Physician. jh7 17:46 No provider procedures requiring assistance completed. IV discontinued, intact, kr3 bleeding controlled, No redness/swelling at site. Pressure dressing applied. Administered Medications: 17:12 Drug: NS 0.9% 1000 ml Route: IV; Rate: 1 bolus; Site: right antecubital; kr3 17:44 Follow up: Response: No adverse reaction; IV Status: Completed infusion; IV Intake: kr3 1000ml 17:44 Not Given (Patient Refused): Zofran (Ondansetron) 4 mg IVP once; over 2 minutes kr3 Medication: 17:47 VIS not applicable for this client. kr3 Intake: 17:44 IV: 1000ml; Total: 1000ml. kr3 Outcome: 17:27 Discharge ordered by . lizett 17:46 Discharged to home ambulatory. kr3 17:46 Condition: stable 17:46 Condition: stable 17:46 Discharge instructions given to patient, Instructed on discharge instructions, follow up and referral plans. medication usage, Demonstrated understanding of instructions, follow-up care, medications, Prescriptions given X 3. 17:51 Patient left the ED. kr3 Signatures: Dispatcher [employer] EDMS Elizabeth Elizondo, RN RN garry5 Baylee Pereira4 Crystal Ryder, COMPUTER NETWORKER COMPUTER NETWORKER 7 Beatris Neumann, RN RN kr3
--- NOTE | 2022-04-11 17:28 | EDPHYS ---
Physician Documentation [facility] Name: Ethel Amato Age: 32 yrs Sex: Female : 1990 Arrival Date: 04/11/2022 Time: 15:42 Bed 8 Private MD: ED Physician Lico Patel HPI: 04/11 15:55 This 32 yrs old Female presents to ER via Ambulatory with complaints of Facial Swelling.jh7 15:55 Onset: The symptoms/episode began/occurred 10 day(s) ago. Associated signs and jh7 symptoms: Pertinent positives: fever, Pertinent negatives: abdominal pain, chest pain, shortness of breath. Patient reports that she had a broken tooth removed 2 weeks ago. Her dentist put her on clindamycin and Flagyl. She had a CT scan of her face on Saturday which was negative for a dental abscess. She went to [facility] on Saturday and they gave her prednisone for the swelling. She stated that the oral surgeon's office sent her here for CT. Reports right jaw swelling.. NIGHT SHIFT: 15:54 LMP 03/22/2022 aa5 Historical: - Allergies: 15:53 No Known Allergies; aa5 - Home Meds: 15:53 metoprolol tartrate 25 mg Oral tab 1 tab once daily [Active]; Vyvanse 60 mg oral cap aa5 once daily [Active]; - PMHx: 15:53 ADD/ADHD; Hypertension; Pneumonia; aa5 - Immunization history:: Adult Immunizations unknown. - Social history:: Smoking status: Patient/guardian denies using tobacco. ROS: 15:55 Constitutional: Negative for fever, chills, and weight loss, Eyes: Negative for injury, jh7 pain, redness, and discharge, ENT: Negative for injury, pain, and discharge, Neck: Negative for injury, pain, and swelling, Cardiovascular: Negative for chest pain, palpitations, and edema, Respiratory: Negative for shortness of breath, cough, wheezing, and pleuritic chest pain, Abdomen/GI: Negative for abdominal pain, nausea, vomiting, diarrhea, and constipation, Back: Negative for injury and pain, MS/Extremity: Negative for injury and deformity, Neuro: Negative for headache, weakness, numbness, tingling, and seizure. 15:55 ENT: Negative for dental pain, difficulty swallowing. 15:55 Skin: Positive for swelling, of the face. 15:55 All other systems are negative. Exam: 15:55 Constitutional: This is a well developed, well nourished patient who is awake, alert, jh7 and in no acute distress. Eyes: Pupils equal round and reactive to light, extra-ocular motions intact. Lids and lashes normal. Conjunctiva and sclera are non-icteric and not injected. Cornea within normal limits. Periorbital areas with no swelling, redness, or edema. 15:55 Neck: Trachea midline, no thyromegaly or masses palpated, and no cervical lymphadenopathy. Supple, full range of motion without nuchal rigidity, or vertebral point tenderness. No Meningismus. Cardiovascular: Regular rate and rhythm with a normal S1 and S2. No gallops, murmurs, or rubs. Normal PMI, no JVD. No pulse deficits. Respiratory: Lungs have equal breath sounds bilaterally, clear to auscultation and percussion. No rales, rhonchi or wheezes noted. No increased work of breathing, no retractions or nasal flaring. Abdomen/GI: Soft, non-tender, with normal bowel sounds. No distension or tympany. No guarding or rebound. No evidence of tenderness throughout. Back: No spinal tenderness. No costovertebral tenderness. Full range of motion. Skin: Warm, dry with normal turgor. Normal color with no rashes, no lesions, and no evidence of cellulitis. MS/ Extremity: Pulses equal, no cyanosis. Neurovascular intact. Full, normal range of motion. Neuro: Awake and alert, GCS 15, oriented to person, place, time, and situation. Normal gait. 15:55 Head/face: Noted is swelling, that is moderate, of the right jaw, tenderness, that is mild, of the right jaw. 15:55 ENT: Dental exam: normal, no cellulitis, no dental caries. Vital Signs: 15:51 BP 133 / 108; Pulse 82; Resp 18 S; Temp 98.1(O); Pulse Ox 100% on R/A; aa5 17:17 BP 154 / 107; Pulse 69; Resp 18; kr3 17:48 BP 128 / 94; Pulse 64; Resp 18; Pulse Ox 98% on R/A; kr3 MDM: 15:53 Patient medically screened. [facility] 17:35 Differential diagnosis: Dental abscess, facial abscess, facial cellulitis. Data [facility] reviewed: vital signs, nurses notes, lab test result(s), radiologic studies, CT scan. Data interpreted: Pulse oximetry: is 98 %. Interpretation: normal. Counseling: I had a detailed discussion with the patient and/or guardian regarding: the historical points, exam findings, and any diagnostic results supporting the discharge/admit diagnosis, the need for outpatient follow up, Oral surgeon, to return to the emergency department if symptoms worsen or persist or if there are any questions or concerns that arise at home. ED course: Patient requested nystatin for thrush. Agreed to give her a prescription. She is currently finishing up oral clindamycin and will prescribe Augmentin. She will follow-up with the oral surgeon tomorrow.. 04/11 16:09 Order name: CBC with Diff; Complete Time: 16:55 [facility] 04/11 16:09 Order name: BMP; Complete Time: 16:55 [facility] 04/11 16:09 Order name: CT Facial Bones W/ Con \T\ Mpr; Complete Time: 17:16 [facility] Administered Medications: 17:12 Drug: NS 0.9% 1000 ml Route: IV; Rate: 1 bolus; Site: right antecubital; kr3 17:44 Follow up: Response: No adverse reaction; IV Status: Completed infusion; IV Intake: kr3 1000ml 17:44 Not Given (Patient Refused): Zofran (Ondansetron) 4 mg IVP once; over 2 minutes kr3 Disposition: 04/12 12:31 Co-signature as Attending Physician, Lico Patel MD I agree with the assessment and rt plan of care. Disposition Summary: 04/11/22 17:27 Discharge Ordered Location: Home [facility] Problem: new [facility] Symptoms: are unchanged [facility] Condition: Stable [facility] Diagnosis - Cellulitis of face [facility] Followup: [facility] - With: Macario Gary DDS - When: Tomorrow - Reason: Recheck today's complaints Discharge Instructions: - Discharge Summary Sheet [facility] - Cellulitis, Adult [facility] Forms: - Medication Reconciliation Form [facility] - Thank You Letter [facility] - Antibiotic Education [facility] Prescriptions: - Augmentin 875-125 mg Oral Tablet - take 1 tablet by ORAL route every 12 hours for 10 days; 20 tablet; Refills: 0, jh7 Product Selection Permitted - Nystatin 100,000 unit/mL Oral Suspension - take 5 milliliters by ORAL route every 6 hours; 120 milliliter; Refills: 0, [facility] Product Selection Permitted - ondansetron 4 mg Oral tablet,disintegrating - place 1 tablet by TRANSLINGUAL route 4 times per day As needed; 20 tablet; 7 Refills: 0, Product Selection Permitted Signatures: Dispatcher [employer] Elizabeth Clemente RN RN aa5 Crystal Ryder FNP WHITE SPOOLER 7 Beatris Neumann RN RN kr3 Lico Patel MD MD rt
[2022-04-11] MEDS ORDERED: ONDANSETRON 4 MG/2 ML VIAL ONE (17:31)
[2022-04-11 17:56] VITALS: TEMP 98.1
[2022-04-11 17:58] VITALS: BP 128/94; O2SAT 98
== END 2022-04-11 17:51 | disposition home or self-care (01) ==
LOC: ER 15:38
DX: L03.211 Cellulitis of face (principal); I10 Essential (primary) hypertension; F90.9 Attention-deficit hyperactivity disorder, unspecified type
CPT/HCPCS: 85025; 80048; 36415; 70487; 76377; Q9967; J7030; J2405

== ENCOUNTER 2024-03-24 12:31 | Emergency (ER) | payer OTHER ==
--- OUTSIDE RECORDS SUMMARY | 2024-03-24 12:43 | XMS REPORT | Continuity of Care Document ---
Author Name Unknown Address [address] [facility] [address] [place] [address] [facility] thconnect Address [address] [facility]. [address] [place] [address] Care Team Providers Care Scrum Product Owner Name Role Phone LEANDER MALAGON Primary Care Physician Unavailab le Leander Malagon Attending Clinician Unavailable CATHIE ROSS Attending Clinician UnavailCATHIE Tomas Attending Clinician UnavailCathie Tomas MD Attending Clinician [phone] JAYDEN JOHANSEN Attending Clinician Unavailable JAYDEN JOHANSEN Attending Clinician Unavailable Jayden Johansen MD Attending Clinician [phone] KANDY CHAVEZ Attending Clinician Unavailable KANDY CHAVEZ Attending Clinician Unavailable Kandy Sanchez Attending Clinician + [phone] LORENZO ASHFORD Attending Clinician Unavailable LORENZO ASHFORD Attending Clinician Unavailable Lorenzo Ashford MD Attending Clinician +[phone] KRISTA CABRERA Attending Clinician Unavailable KRISTA CABRERA Attending Clinician Unavailable Krista Cabrera MD Attending Clinician +[phone] Alberto Frost Attending Clinician + [phone] Jonelle Connell DO Attending Clinician [phone] NBA BALDERAS Attending Clinician Unavailab Lauren Davila MA Attending Clinician Un available VALERIO LOWE Attending Clinician Unavailable VALERIO LOEW Attending Clinician Unavailable Alyssia Miranda MD Attending Clinician + PHILLIP DEVI Attending Clinician Unavailable Eduar Echevarria DO Attending Clinician +[phone] Phillip Devi MD Attending Clinician [phone] JONELLE CONNELL Attending Clinician Unavailable JONELLE CONNELL Attending Clinician Unavailable Zoë Singletary NP Attending Clinician +[phone] ZOË SINGLETARY Attending Clinician Unavailable Jose Domínguez Attending Clinician +[phone] CECILE RANGEL Attending Clinician Unavailable Cecile Hernandez Attending Clinician +[phone] ELENO OLMSTEAD Attending Clinician Unavailable ELENO OLMSTEAD Attending Clinician Unavailable Adrian Tapia Attending Clinician +[phone] Doctor Unassigned, [place] Attending Clinician U rell LEIJAKOKOPARIS Attending Clinician Unavailable Unknown, Attending Attending Clinician Unavailab Thelma Hernandez LVN Attending Clinician + [phone] WILLIAM CASTORENA Attending Clinician Unavailyfn Castorena MD, William Nolasco Attending Clinician +[phone] Jacob Jacobs Attending Clinician UnavailALMA ROSA Abdul Attending Clinician Unavailable Da STUBBS, Alma Rosa Attending Clinician +[phone] JUAN CHAVEZ Attending Clinician Unavail able Alfie STUBBS, Adelina Sanders Attending Clinician +[phone] Mitch Robertson MD Attending Clinician +[phone] Juan Chavez MD Attending Clinician +[phone] EDUAR ECHEVARRIA Attending Clinician Unavailable ESTEPHANIA MARGUERITE T Attending Clinician Unavailable Estephania TONYA, Marguerite T Attending Clinician +[phone] LIZBETH SNOW Attending Clinician Unavailable Chula NAVARRETE Attending Clinician Unavailable Chula NAVARRETE Attending Clinician Unavailable Lacey Suggs MD Attending Clinician +[phone] Oral Surgery, Oral Attending Clinician Unavailab Jose Loredo Attending Clinician Unavailable Jian Salvador Attending Clinician Unavailable LENORE ALARCON Attending Clinician Unavailable Agnes PACLenore S Attending Clinician [phone] DURGA CORTES Attending Clinician Unavailab Kerrie Bliss S Attending Clinician +[phone] KERRIE JUDGE Attending Clinician Unavailable Cathie Ross MD Attending Clinician +[phone] JACQUELINE SHIN Attending Clinician Unavailable Jacqueline Baugh Attending Clinician +[phone] Lizbeth Snow MD Attending Clinician +[phone] Pob, Adc Lab Main Attending Clinician Unavailabl e Only, Adc Test Attending Clinician Unavailable Consuelo Dow Attending Clinician +[phone] KARINA GONZALES Attending Clinician Unavailable Karina Frances Attending Clinician [phone] Visit, Ang-Rmchp Nurse Attending Clinician Unava ilsapphire Cortes FAMILY MEDICINE RESIDENT, Durga Doyle Attending Clinician + [phone] Akinmargaux WHCNP, Pratima Shore Attending Clinician + PRATIMA WU Attending Clinician Unavail able _[facility]_G Attending Clinician Unavail able MARY DAVIS Attending Clinician Unava kian Davis FAMILY MEDICINE RESIDENT, Mary Attending Clinician + Nerissa HOFF, Zakiya Sanders Attending Clinician Unavailab Tylor Mosqueda Db Test Attending Clinician Unavailyfn Doan FAMILY MEDICINE RESIDENT, Miley Attending Clinician [phone] MILEY DOAN Attending Clinician Unavailable Julisa Purvis DO Attending Clinician + [phone] Marin HOFF, Tiff Moreno Attending Clinician + [phone] CAMILO MORAN Attending Clinician Unavailabl Dallas Estrada MD Attending Clinician + [phone] Camilo Moran MD Attending Clinician +[phone] Marisabel Collins MD Attending Clinician +[phone] CLEMENTINA MARROQUIN Attending Clinician Unavailab Clementina Woods DO Attending Clinician [phone] Provider, [facility] Attending Clinician Un available Kelly Cooley Attending Clinician +[phone] Jennifer Sher MD Attending Clinician [phone] Radiology Attending Clinician Unavailable RADIOLOGY Attending Clinician Unavailable JENNIFER SHER Attending Clinician Unavailable KELLY PEREZ Attending Clinician Unavailable Shola HASSANP, Sabra Attending Clinician +[phone] SABRA SORTO Attending Clinician Unavailable Carrington CASTANEDA, Brandi Casanova Attending Clinician +[phone] Eliezer Watts MD Attending Clinician +[phone] Jayden Leahy MD Attending Clinician +[phone] CATHIE ROSS Admitting Clinician UnavailKANDY Del Real Admitting Clinician Unavailable LORENZO ASHFORD Admitting Clinician Unavailable NBA BALDERAS Admitting Clinician Unavailab EDUAR So Admitting Clinician Unavailable Eduar Echevarria DO Admitting Clinician [phone] PHILLIP DEVI Admitting Clinician Unavailable Phillip Devi MD Admitting Clinician +[phone] CECILE RANGEL Admitting Clinician Unavailable ELENO OLMSTEAD Admitting Clinician Unavailable WILLIAM CASTORENA Admitting Clinician UnavailWilliam Serrano MD Admitting Clinician +[phone] rAnol Gonsalez Admitting Clinician Unavailab MITCH Arteaga Admitting Clinician Unavailable Mitch Robertson MD Admitting Clinician [phone] MARGUERITE BEST Admitting Clinician Unavailable LACEY SUGGS Admitting Clinician Unavailable Cathie Ross MD Admitting Clinician +[phone] _[facility]_Charisse Admitting Clinician Unavail able MARISABEL COLLINS Admitting Clinician Unavailable Marisabel Collins MD Admitting Clinician +[phone] LENORE ALARCON Admitting Clinician Unavailable SABRA SORTO Admitting Clinician Unavailable Payers Payer Name Policy Type Policy Number Effective Date Expirati on Date Source [employer] MEDICAID [id number] 2016 00:00:00 MEDICAID [facility] [id number] 2023 00:00:00 [facility] [id number] 2022 00:00:00 2023 00:00:00 [facility] [id number] 2019 00:00:00 [facility] [id number] 2019 00:00:00 [facility] [id number] 2019 00:00:00 [facility] [id number] 2019 00:00:00 [facility] Problems Condition Name Condition Details Condition Category Status Onset Date Resolution Date Last Treatment Date Treating Clinician Comments Source Alcohol withdrawal syndrome without complicati on Alcohol withdrawal syndrome without complicati on Disease Active 7-17 00:00: 00 [facility] Nausea and vomiting, unspecifie d vomiting type Nausea and vomiting, unspecifie d vomiting type Disease Active 5-30 00:00: 00 [facility] Alcohol withdrawal syndrome, with delirium Alcohol withdrawal syndrome, with delirium Disease Active 1-03 00:00: 00 [facility] E44.0 Moderate protein calorie malnutriti on E44.0 Moderate protein calorie malnutriti on Disease Active 24 00:00: 00 [facility] Alcohol abuse Alcohol abuse Disease Active 11-10 00:00: 00 [facility] Flank pain Flank pain Disease Active 11-06 00:00: 00 [facility] Closed dislocatio n of fifth metacarpal bone of right hand Closed dislocatio n of fifth metacarpal bone of right hand Disease Active 11-08 00:00: 00 Overview: Formattin g of this note might be different from the original. Added automatic ally from request for surgery [id number] [facility] Closed dislocatio n of fifth metacarpal bone of right hand Closed dislocatio n of fifth metacarpal bone of right hand Disease Active 11-08 00:00: 00 Overview: Formattin g of this note might be different from the original. Added automatic ally from request for surgery [id number] [facility] Other general counseling and advice for contracept luna management Other general counseling and advice for contracept luna management Disease Active 07-13 00:00: 00 [facility] Underweigh t Underweigh t Disease Active 07-13 00:00: 00 [facility] History of anorexia nervosa History of anorexia nervosa Disease Active 07-13 00:00: 00 Overview: Formattin g of this note might be different from the original. Reports currently see therapist [facility] Alcohol withdrawal syndrome with perceptual disturbanc e Alcohol withdrawal syndrome with perceptual disturbanc e Disease Active 2020-04 00:00: 00 [facility] Hypokalemi a Hypokalemi a Disease Active 2020-04 1-10 00:00: 00 [facility] ETOH abuse ETOH abuse Disease Active 08-16 00:00: 00 [facility] E46 Unspecifie d severe protein-ca evette malnutriti on E46 Unspecifie d severe protein-ca evette malnutriti on Disease Active 08-16 00:00: 00 [facility] H/O hernia repair H/O hernia repair Disease Active 08-21 00:00: 00 [facility] Hiatal hernia Hiatal hernia Disease Active 08-21 00:00: 00 [facility] [id number] History of alcohol abuse Problem [facility] [id number] Tobacco use disorder Problem [facility] [id number] Constipati on, unspecifie d constipati on type Problem [facility] [id number] Allergic rhinitis, unspecifie d seasonalit y, unspecifie d trigger Problem [facility] [id number] Mass of chest wall Problem [facility] Attention deficit hyperactiv ity disorder, predominan tly inattentiv e type Attention deficit hyperactiv ity disorder (ADHD), predominan tly inattentiv e type Problem [facility] [id number] GERD without esophagiti s Problem [facility] [id number] Hypercalce manav Problem [facility] [id number] Iron deficiency anemia, unspecifie d iron deficiency anemia type Problem [facility] [id number] Enlarged thyroid Problem [facility] [id number] Abnormal finding on imaging Problem [facility] Intractabl e nausea and vomiting Intractabl e nausea and vomiting Disease Resolve d 08-16 00:00: 00 2021-07-13 00:00:00 2021-07-13 09:24:51 [facility] Rh negative status during Rh negative status during Disease Resolve d 08-22 00:00: 2021-07-13 00:00:00 2021-07-13 09:25:04 [facility] Supervisio n of high risk , antepartum , first trimester Supervisio n of high risk , antepartum , first trimester Disease Resolve d 08-21 00:00: 00 2021-07-13 00:00:00 2021-07-13 09:25:05 [facility] Missed menses Missed menses Disease Resolve d 08-21 00:00: 00 2021-07-13 00:00:00 2021-07-13 09:25:08 [facility] Multiparit y Multiparit y Disease Resolve d 08-21 00:00: 00 2021-07-13 00:00:00 2021-07-13 09:24:54 [facility] Tobacco use in , unspecifie d trimester Tobacco use in , unspecifie d trimester Disease Resolve d 08-21 00:00: 2021-07-13 00:00:00 2021-07-13 09:25:07 [facility] Needs flu shot Needs flu shot Disease Resolve d 08-21 00:00: 00 2021-07-13 00:00:00 2021-07-13 09:24:56 [facility] History of labor History of labor Disease Resolve d 08-21 00:00: 00 2021-07-13 00:00:00 2021-07-13 09:24:49 [facility] Allergies, Adverse Reactions, Alerts Allergy Name Allergy Type Status Severity Reaction(s) Onset Date Inactive Date Treating Clinician Comments Source No Known Allergie s DA Active U 2016-04 00:00: 00 [facility] NO KNOWN ALLERGIE S Drug Class Active [facility] 96011 Drug allergy Active Muscle Atrophy [facility] Social History Social Habit Start Date Stop Date Quantity Comments Source Gender identity [facility] of tobacco use Cigarette Smoker [facility] Sex Assigned At [facility] History of Social function 2024-01-03 00:00:00 2024-01-03 00:00:00 [facility] Alcoholic beverage intake 2024-01-03 00:00:00 2024-01-03 00:00:00 Current drinker of alcohol (finding) [facility] Tobacco Comment 2023-11-06 00:00:00 2023-11-06 00:00:[address] [facility] Alcohol Comment 2023-11-06 00:00:00 2023-11-06 00:00:00 last drink 4-[address] [facility] Tobacco use and exposure 2023-11-06 00:00:00 2023-11-06 00:00:[address] tobacco user [facility] Alcohol intake 2023-04-30 00:00:00 2023-04-30 00:00:00 Current non-drinker of alcohol (finding) [facility] Exposure to SARS-CoV-2 (event) 2022-08-17 00:00:00 2022-08-27 20:37:[address] [facility] Cigarettes smoked current (pack per day) - Reported 2018-11-05 00:00:00 2018-11-05 00:00:00 [facility] Smoking Status Start Date Stop Date Source Ex-smoker 2023-11-06 00:00:00 2023-11-06 [facility] Current Smoker 2023-06-07 00:00:00 [facility] Medications Ordered Medication Name Filled Medication Name Start Date Stop Date Current Medication? Ordering Clinician Indication Dosage Frequency Signature (SIG) Comments Components Source methocarbam oL (ROBAXIN) tablet 1,000 mg 2023-04 0-06 19:30: 00 01-25 20:18 :00 No 1000mg 1,000 mg, Oral, ONCE, 1 dose, On 01/26/24 at 1430, [facility] 600 mg 2023-04 0-06 19:30: 00 01-25 20:18 :00 No 600mg 600 mg, Oral, ONCE, 1 dose, [facility]24 [facility] 1430[facility] mg tablet 2023-04 00:00: 00 Yes [id number] 750mg Take 1 tablet by mouth 3 (three) times daily as needed (body aches). [facility] fentanyl PF (SUBLIMAZE (PF)) injection 50 mcg 12-27 02:00: 00 12-27 02:00 :00 Yes 50ug 50 mcg, Intramuscu lar, ONCE, 1 dose, On Sat12/27/23 at 2100, Routine [facility] HYDROcodone -acetaminop hen (NORCO 5) tablet 1 tablet 12-26 21:15: 12-26 21:55 :00 No 1{tbl} 1 tablet, Oral, ONCE, 1 dose, On Sat12/27/23 at 1615, [facility] HYDROcodone -acetaminop hen (NORCO) 10-325 mg tablet 1 tablet 12-15 12:15: 12-15 11:26 :00 No 1{tbl} 1 tablet, Oral, ONCE NOW, 1 dose, On Sat12/16/23 at 0715, Routine [facility] traMADoL (ULTRAM) 50 mg tablet 12-15 00:00: 00 Yes [id number] 50mg Take 1 tablet by mouth every 6 (six) hours as needed for Pain (scale 7-10). Indication s: acute pain [facility] magnesium sulfate in water 2 gram/50 mL (4 %) infusion 2 g 12-07 21:45: 00 12-07 21:30 :00 No 2g 2 g, IV Piggyback, Administer over 60 Minutes, ONCE, 1 dose, On Sat12/08/23 at 1645, [facility] thiamine (VITAMIN B1) 100 mg in NaCl 0.9% (NS) piggyback 12-07 20:30: 00 12-07 21:01 :00 No 100mg IV Piggyback, ONCE, 1 dose, On Sat12/08/23 at 1530, 50 mL [facility] LORazepam (ATIVAN) tablet 1 mg 12-07 20:00: 00 12-07 20:03 :00 No 1mg 1 mg, Oral, ONCE, 1 dose, On Sat12/08/23 at 1500, [facility] magnesium oxide 400 mg (241.3 mg magnesium) tablet 12-07 00:00: 00 Yes [id number] 800mg Take 2 tablets by mouth in the morning. [facility] chlordiazeP OXIDE 25 mg capsule 12-07 00:00: 00 Yes [id number] 100mg Take 4 capsules by mouth in the morning and 4 capsules at noon and 4 capsules in the evening. [facility] diphenhydrA MINE (BENADRYL) tablet 25 mg 12-05 08:30: 00 12-05 08:21 :00 No 25mg 25 mg, Oral, ONCE, 1 dose, On Sat12/06/23 at 0330, [facility] LORazepam (ATIVAN) tablet 1 mg 12-05 07:00: 00 12-05 06:58 :00 No 1mg 1 mg, Oral, ONCE, 1 dose, On Sat12/06/23 at 0200, [facility] LORazepam (ATIVAN) tablet 1 mg 12-04 05:00: 00 12-04 05:05 :00 No 1mg 1 mg, Oral, ONCE, 1 dose, On Sat12/05/23 at 0000, [facility] NaCl 0.9% (NS) bolus infusion 1,000 mL 12-04 04:45: 00 12-04 04:50 :00 No 1000mL at 999 mL/hr, 1,000 mL, IV Infusion, ONCE, 1 dose, On Sat12/04/23 at 2345, [facility] Lidocaine (LIDOCARE) 4 % patch 1 Patch 11-21 18:15: 00 11-22 06:14 :00 No 1{patch } 1 Patch, Topical, Administer over 12 Hours, ONCE, 1 dose, On Sat11/22/23 at 1315, Routine [facility] NaCl 0.9% (NS) bolus infusion 1,000 mL 11-21 18:15: 00 11-21 19:21 :00 No 1000mL at 999 mL/hr, 1,000 mL, IV Infusion, ONCE, 1 dose, On Sat11/22/23 at 1315, [facility] ketorolac (TORADOL) injection 30 mg 11-21 17:40: 00 11-21 17:52 :00 No 30mg 30 mg, Slow IV Push, ONCE, 1 dose, On Sat11/22/23 at 1245, Routine [facility] proCHLORper azine (COMPAZINE) 10 mg in NaCl 0.9% (NS) piggyback 11-21 17:30: 00 11-21 18:24 :00 No 10mg 10 mg, IV Piggyback, at 100 mL/hr Administer over 30 Minutes, ONCE, 1 dose, On Sat11/22/23 at 1230, Routine [facility] methocarbam oL (ROBAXIN) tablet 1,000 mg 11-21 17:30: 00 11-21 17:56 :00 No 1000mg 1,000 mg, Oral, ONCE, 1 dose, On Sat11/22/23 at 1230, [facility] metoprolol tartrate (LOPRESSOR) tablet 25 mg 11-08 14:15: 00 Yes 25mg 25 mg, Oral, BID, First dose on Sat11/09/23 at 0915, Until Discontinu ed, Routine [facility] oxazepam (SERAX) capsule 15 mg 11-08 06:01: 04 11-09 06:14 :00 No 15mg 15 mg, Oral, Q12H TAPER, 2 doses, First dose on Sat11/09/23 at 0115, Last dose on Sat11/09/23 at 1315, Routine [facility] metoprolol tartrate 25 mg tablet 11-08 00:00: 00 12-09 04:59 :00 No [id number] 25mg Take 1 tablet by mouth in the morning and 1 tablet in the evening. Do all this for 30 days. [facility] KCL (KLOR-CON M20) tablet 20 mEq 11-07 23:00: 00 11-07 22:58 :00 No 20meq 20 mEq, Oral, ONCE, 1 dose, On Sat11/08/23 at 1800, Routine [facility] diphenhydrA MINE (BENADRYL) tablet 25 mg 11-07 13:03: 50 Yes 25mg 25 mg, Oral, Q6HPRN, Starting on Sat11/08/23 at 0803, Until Discontinu ed, Routine, Itching [facility] phosphorus (K PHOS NEUTRAL) tablet 1 tablet 11-07 13:00: 00 11-09 12:59 :00 No 250mg 1 tablet (250 mg), Oral, BID, 4 doses, First dose on Sat11/08/23 at 0800, Last dose on Sat11/09/23 at 2000, Routine [facility] magnesium sulfate in water 2 gram/50 mL (4 %) infusion 2 g 11-07 13:00: 00 11-07 14:34 :00 No 2g 2 g, IV Piggyback, Administer over 60 Minutes, ONCE, 1 dose, On Sat11/08/23 at 0800, Routine [facility] potassium phosphate 30 mmol in NaCl 0.9% (NS) 500 mL piggyback 11-07 13:00: 00 11-07 20:30 :00 No 30mmol 30 mmol, IV Piggyback, ONCE, 1 dose, On Sat11/08/23 at 0800, 500 mL [facility] HYDROmorpho ne (DILAUDID) injection 0.5 mg 11-07 10:45: 00 11-07 10:31 :00 No .5mg 0.5 mg, Slow IV Push, ONCE, 1 dose, On Sat11/08/23 at 0545, Routine, Is this medication approved by a Faculty level provider? Yes, board member approving Restricted medication : WILLIAM CASTORENA [facility] traMADoL (ULTRAM) tablet 50 mg 11-07 01:50: 29 Yes 50mg 50 mg, Oral, Q6HPRN, Starting on Sat11/07/23 at 2050, Until Discontinu ed, Routine, Pain (scale 4-6) [facility] FENTanyl PF (SUBLIMAZE (PF)) injection 25 mcg 11-07 01:29: 16 Yes 25ug 25 mcg, Slow IV Push, Q4HPRN, Starting on Sat11/07/23 at 2028, Until Discontinu ed, Routine, Pain (scale 7-10) [facility] NaCl 0.9% (NS) IV infusion 1,000 mL 11-07 00:30: 00 11-07 13:51 :28 No 1000mL at 75 mL/hr, IV Infusion, CONTINUOUS , Starting on Sat11/07/23 at 1930, Until Sat11/08/23 at 0851, Routine [facility] sodium phosphate 15 mmol in NaCl 0.9% (NS) 250 mL piggyback 11-06 14:45: 00 11-06 19:18 :00 No 15mmol 15 mmol, IV Piggyback, ONCE, 1 dose, On Sat11/07/23 at 0945, Administer over 4 Hours, 250 mL [facility] thiamine mononitrate (VITAMIN B-1 (MONONITRAT E)) tablet 100 mg 11-06 14:00: 00 Yes 100mg 100 mg, Oral, DAILY, First dose on Sat11/07/23 at 0900, Until Discontinu ed, Routine [facility] foLIC acid (FOLATE) tablet 1 mg 11-06 14:00: 00 Yes 1mg 1 mg, Oral, DAILY, First dose on Sat11/07/23 at 0900, Until Discontinu ed, Routine [facility] pantoprazol e (PROTONIX) EC tablet 40 mg 11-06 13:00: 00 Yes 40mg 40 mg, Oral, BID, First dose on Sat11/07/23 at 0800, Until Discontinu ed, Routine [facility] sucralfate (CARAFATE) tablet 1 g 11-06 02:00: 00 Yes 1g 1 g, Oral, AC+HS, First dose on Sat11/06/23 at 2100, Until Discontinu ed, Routine [facility] magnesium sulfate in water 2 gram/50 mL (4 %) infusion 2 g 11-06 01:30: 00 11-06 02:48 :00 No 2g 2 g, IV Piggyback, Administer over 60 Minutes, ONCE, 1 dose, On Sat11/06/23 at 2030, CECILIA [facility] oxazepam (SERAX) capsule 15 mg 11-06 00:01: 04 Yes 15mg 15 mg, Oral, Q4HPRN, Starting on Sat11/06/23 at 1901, Until Discontinu ed, Routine, Only while awake for DBP equal to or greater than 100, HR equal to or greater than 100. [facility] nicotine (NICODERM) 21 mg/24 hr patch 1 Patch 11-06 00:00: 00 Yes 1{patch } 1 Patch, Topical, Administer over 24 Hours, Q24H, First dose on Sat11/06/23 at 1900, Until Discontinu ed, Routine [facility] pantoprazol e (PROTONIX) injection 40 mg 11-05 23:45: 00 11-05 23:08 :00 No 40mg 40 mg, Slow IV Push, ONCE, 1 dose, On Sat11/06/23 at 1845 [facility] ondansetron (ZOFRAN (PF)) injection 4 mg 11-05 22:47: 22 Yes 4mg 4 mg, Slow IV Push, Q6HPRN, Nausea and Vomiting (N/V), Starting on Sat11/06/23 at 1747, Doses of ondansetro n 16 mg and above need to be administer ed via IV piggyback. For Dose >=24mg ECG monitoring is advisable. [facility] enoxaparin (LOVENOX) injection 40 mg 11-05 22:00: 00 Yes 40mg 40 mg, Subcutaneo us, DAILY, First dose on Sat11/06/23 at 1700, Until Discontinu ed, Routine [facility] D5W 0.45% NaCl (1/2NS) 1 L + KCL 20 mEq 11-05 20:45: 00 11-06 13:45 :29 No Intravenou s, at 125 mL/hr, CONTINUOUS , Starting on Sat11/06/23 at 1545, Until [place] 11/07/23 at 0845, CECILIA [facility] NaCl 0.9% (NS) bolus infusion 1,000 mL 11-05 20:00: 00 11-05 20:14 :00 No 1000mL at 999 mL/hr, 1,000 mL, IV Infusion, ONCE, 1 dose, On Sat11/06/23 at 1500, STAT [facility] thiamine (VITAMIN B1) injection 100 mg 11-05 18:45: 00 11-05 18:55 :00 No 100mg 100 mg, Slow IV Push, ONCE, 1 dose, On Sat11/06/23 at 1345, CECILIA [facility] ondansetron (ZOFRAN (PF)) injection 4 mg 10-27 14:45: 00 10-27 14:42 :00 No 4mg 4 mg, Slow IV Push, ONCE, 1 dose, On 10/28/23 at 0945, CECILIA [facility] NaCl 0.9% (NS) IV infusion 1,000 mL 10-27 09:45: 00 Yes 1000mL at 150 mL/hr, Intravenou s, CONTINUOUS , Starting on Sat10/28/23 at 0445, Until Discontinu ed, Routine [facility] ondansetron (ZOFRAN-ODT ) disintegrat ing tablet 4 mg 10-18 17:00: 00 10-18 16:15 :00 No 4mg 4 mg, Oral, ONCE, 1 dose, On 10/19/23 at 1200, Routine [facility] hydrOXYzine (ATARAX) tablet 25 mg 10-18 16:00: 00 10-18 16:15 :00 No 25mg 25 mg, Oral, ONCE, 1 dose, On 10/19/23 at 1100, CECILIA [facility] ondansetron 4 mg disintegrat ing tablet 10-18 00:00: 00 Yes [id number] 4mg Take 1 tablet by mouth every 8 (eight) hours as needed for Nausea and Vomiting (N/V). [facility] hydrOXYzine 25 mg tablet 10-18 00:00: 00 Yes [id number] 25mg Take 1 tablet by mouth every 6 (six) hours as needed for Anxiety. [facility] neomycin-po lymyxin-pra moxine 3.5-10,000- 10 mg-unit-mg/ gram cream 10-17 00:00: 00 Yes [id number] Apply to area(s) 2 (two) times daily. [facility] cholecalcif catherine, vitamin D3, 25 mcg (1,000 unit) tablet 09-21 00:00: 00 10-22 04:59 :00 No [id number] 1000U Take 1 tablet by mouth in the morning for 30 days. [facility] foLIC acid 1 mg tablet 09-21 00:00: 00 10-22 04:59 :00 No [id number] 1mg Take 1 tablet by mouth in the morning for 30 days. [facility] KCL (KLOR-CON M20) tablet 40 mEq 09-20 14:30: 00 09-20 14:15 :00 No 40meq 40 mEq, Oral, ONCE, 1 dose, On 09/21/23 at 0930, Routine [facility] lisdexamfet amine (VYVANSE) 60 mg capsule 09-20 12:06: 59 Yes 60mg Take 1 capsule by mouth every morning. [facility] oxazepam (SERAX) capsule 15 mg 09-20 01:30: 00 09-21 01:29 :00 No 15mg [Order 1 Start] Name: oxazepam (SERAX) capsule 15 mg Signed Summary: 15 mg, Oral, Q8H TAPER, 3 doses, First dose on Sat09/20/23 at 2030, Last dose on Sat09/21/23 at 1230, Routine [Order 1 End] [Order 2 Start] Name: oxazepam (SERAX) capsule 15 mg Signed Summary: 15 mg, Oral, Q12H TAPER, 2 doses, First dose on Sat09/22/23 at 0030, Last dose on Sat09/22/23 at 1230, Routine [Order 2 End] [facility] benzonatate 100 mg capsule 09-20 00:00: 00 10-01 04:59 :00 No [id number] 100mg Take 1 capsule by mouth every 8 (eight) hours as needed for Cough for up to 10 days. [facility] zinc sulfate 50 mg zinc (220 mg) capsule 09-20 00:00: 00 10-01 04:59 :00 No [id number] 50mg Take 1 capsule by mouth in the morning and 1 capsule at noon and 1 capsule in the evening. Do all this for 10 days. [facility] amoxicillin -clavulanat e 875-125 mg per tablet 09-20 00:00: 00 09-26 04:59 :00 No [id number] 1{tbl} Take 1 tablet by mouth in the morning and 1 tablet in the evening. Do all this for 5 days. [facility] dexAMETHaso ne 4 mg tablet 09-20 00:00: 00 09-26 04:59 :00 No [id number] 6mg Take 1.5 tablets by mouth every 12 (twelve) hours for 5 days. [facility] cefTRIAXone (ROCEPHIN) 1,000 mg in NaCl 0.9% (NS) 100 mL MINI-BAG 09-19 23:30: 00 09-24 23:29 :00 No 1000mg 1,000 mg, IV Piggyback, Q24H ABX, 5 doses, First dose on Sat09/20/23 at 1830, Last dose on 6/4/24 at 1830, Administer over 30 Minutes, 100 mL, Reason for Anti-Infec tive: Documented Infection, Documented Infection Site: Respirator y, Duration of Therapy: 7 days [facility] cholecalcif catherine (vitamin D3) tablet 1,000 Units 09-19 14:00: 00 Yes 1000U 1,000 Units, Oral, DAILY, First dose on Sat09/20/23 at 0900, Until Discontinu ed, Routine [facility] metoprolol succinate XL (TOPROL XL) tablet 25 mg 09-19 14:00: 00 Yes 25mg 25 mg, Oral, DAILY, First dose on Sat09/20/23 at 0900, Until Discontinu ed, Rout[facility] (F[facility]ATE) tablet 1 mg 09-19 14:00: 00 Yes 1mg 1 mg, Oral, DAILY, First dose on Sat09/20/23 at 0900, Until Discontinu ed, Routine [facility] enoxaparin (LOVENOX) injection 40 mg 09-19 14:00: 00 Yes 40mg 40 mg, Subcutaneo us, DAILY, First dose on Sat09/20/23 at 0900, Until Discontinu ed, Routine [facility] zinc sulfate (ORAZINC) capsule 50 mg 09-19 13:00: 00 Yes 50mg 50 mg, Oral, TID, First dose on Sat09/20/23 at 0800, Until Discontinu ed, Routine [facility] ascorbic acid (vitamin C) (VITAMIN C) tablet 500 mg 09-19 13:00: 00 Yes 500mg 500 mg, Oral, BID, First dose on Sat09/20/23 at 0800, Until Discontinu ed, Routine [facility] ipratropium -albuteroL (DUONEB) 0.5 mg-3 mg(2.5 mg base)/3 mL nebulizer solution 3 mL 09-19 13:00: 00 09-19 14:58 :45 No 3mL 3 mL, Inhalation , QID, First dose on Sat09/20/23 at 0800, Until Discontinu ed, Routine [facility] ipratropium -albuteroL (DUONEB) 0.5 mg-3 mg(2.5 mg base)/3 mL nebulizer solution 3 mL 09-19 12:32: 50 Yes 3mL 3 mL, Inhalation , QIDPRN, Starting on Sat09/20/23 at 0732, Until Discontinu ed, Routine, Wheezing, Shortness of Breath, Bronchospa sm, Chest tightness [facility] azithromyci n (ZITHROMAX) 500 mg in NaCl 0.9% (NS) 250 mL VIAL-MATE IV piggyback 09-19 04:00: 00 09-22 03:59 :00 No 500mg 500 mg, IV Piggyback, Q24H ABX, 3 doses, First dose on Sat09/19/23 at 2300, Last dose on Sat09/21/23 at 2300, Administer over 60 Minutes, 250 mL, Reason for Anti-Infec tive: Empiric Therapy for Suspected Infection, Empiric Therapy Site: Respirator y, Duration of therapy: 5 days [facility] dexamethaso ne sod phos PF injection 6 mg 09-19 03:00: 00 Yes 6mg 6 mg, Intravenou s, DAILY, First dose (after last modificati on) on Sat09/19/23 at 2200, Until Discontinu ed, 1 mL [facility] benzocaine- menthoL (CEPACOL SORE THROAT (VENITA-MEN)) lozenge 1 Lozenge 09-19 02:44: 39 Yes 1{lozen ge} 1 Lozenge, Oral, Q4HPRN, Starting on Sat09/19/23 at 2144, Until Discontinu ed, Routine, Sore throat [facility] benzonatate (TESSALON PERLES) capsule 100 mg 09-19 02:44: 33 Yes 100mg 100 mg, Oral, Q8HPRN, Starting on Sat09/19/23 at 2144, Until Discontinu ed, Routine, Cough [facility] codeine-gua ifenesin (ROBITUSSIN AC) 10-100 mg/5 mL oral solution 5 mL 09-19 02:44: 22 Yes 5mL 5 mL, Oral, Q6HPRN, Starting on Sat09/19/23 at 2144, Until Discontinu ed, Routine, Cough [facility] NaCl 0.9% (NS) IV infusion 1,000 mL 09-18 23:15: 00 09-19 22:10 :01 No 1000mL at 125 mL/hr, IV Infusion, CONTINUOUS , Starting on Sat09/19/23 at 1815, Until Sat09/20/23 at 1710, Routine [facility] oxazepam (SERAX) capsule 15 mg 09-18 23:05: 39 Yes 15mg 15 mg, Oral, Q4HPRN, Starting on Sat09/19/23 at 1805, Until Discontinu ed, Routine, Only while awake for DBP equal to or greater than 100, HR equal to or greater than 100. [facility] ondansetron (ZOFRAN (PF)) injection 4 mg 09-18 23:05: 04 Yes 4mg [facility] HYDROcodone -acetaminop hen (NORCO 5) 5-325 mg tablet 1 tablet 09-18 23:04: 59 09-20 23:03 :59 No 1{tbl} 1 tablet, Oral, Q6HPRN, Starting on Sat09/19/23 at 1804, Until 09/21/23 at 1803, Routine, Pain (scale 4-6) [facility] acetaminoph en (TYLENOL) tablet 650 mg 09-18 23:04: 44 Yes 650mg 650 mg, Oral, Q6HPRN, Starting on Sat09/19/23 at 1804, Until Discontinu ed, Routine, Pain (scale 1-3) [facility] ondansetron (ZOFRAN (PF)) injection 4 mg 09-18 21:15: 00 09-18 20:11 :00 No 4mg 4 mg, Slow IV Push, ONCE, 1 dose, On Sat09/19/23 at 1615, CECILIA [facility] acetaminoph en (TYLENOL) tablet 1,000 mg 09-18 21:00: 00 09-18 20:58 :00 No 1000mg 1,000 mg, Oral, ONCE, 1 dose, On [place] 09/19/23 at 1600, Routine [facility] NaCl 0.9% (NS) bolus infusion 1,000 mL 09-18 19:45: 00 09-18 20:11 :00 No 1000mL at 999 mL/hr, 1,000 mL, IV Infusion, ONCE, 1 dose, On [place] 09/19/23 at 1445, STAT [facility] magnesium sulfate in water 2 gram/50 mL (4 %) infusion 2 g 09-18 18:00: 00 09-18 18:21 :00 No 2g 2 g, IV Piggyback, Administer over 60 Minutes, ONCE, 1 dose, On [place] 09/19/23 at 1300, Routine [facility] NaCl 0.9% (NS) bolus infusion 1,566 mL 09-18 18:00: 09-18 20:11 :00 No 30mL/kg at 999 mL/hr, 1,566 mL (30 mL/kg ?52.2 kg), IV Infusion, ONCE, 1 dose, On [place] 09/19/23 at 1300, STAT [facility] ondansetron (ZOFRAN (PF)) injection 4 mg 09-18 18:00: 00 09-18 17:05 :00 No 4mg 4 mg, Slow IV Push, ONCE, 1 dose, On [place] 09/19/23 at 1300, [facility] LORazepam (ATIVAN) injection 1 mg 09-18 17:00: 00 09-18 17:05 :00 No 1mg 1 mg, Slow IV Push, ONCE, 1 dose, On [place] 09/19/23 at 1200, STAT [facility] NaCl 0.9% (NS) bolus infusion 1,000 mL 09-14 17:30: 00 09-14 18:27 :00 No 1000mL at 999 mL/hr, 1,000 mL, IV Infusion, ONCE, 1 dose, On Sat09/15/23 at 1230, [facility] iopamidol (ISOVUE 370-500 mL) injection 80 mL 09-14 17:15: 00 09-14 17:30 :00 No [id number] 80mL 80 mL, Intravenou s, ONCE, 1 dose, On Sat09/15/23 at 1230, Routine [facility] NaCl 0.9% (NS) bolus infusion 1,000 mL 09-13 00:15: 09-13 01:01 :00 No [id number] 1000mL at 999 mL/hr, 1,000 mL, IV Infusion, ONCE, 1 dose, On Sat09/13/23 at 1915, [facility] acetaminoph en (TYLENOL) tablet 650 mg 09-13 00:15: 09-12 23:34 :00 No [id number] 650mg 650 mg, Oral, ONCE, 1 dose, On Sat09/13/23 at 1915, [facility] Vyvanse 60 MG Vyvanse 60 MG 3 00:00: 00 No 1{capsu le_in_t he_morn ing} QD Vyvanse 60 MG Vyvanse 60 MG Vyvanse 60 MG 3- 00:00: 00 No 1{capsu le_in_t he_morn ing} QD Vyvanse 60 MG Gentamicin Sulfate 0.3 % Gentamicin Sulfate 0.3 % 2-20 00:00: 00 No 1{drop_ into_af fected_ eye} 6xD Gentamicin Sulfate 0.3 % Vyvanse 60 MG Vyvanse 60 MG 2-20 00:00: 00 No 1{capsu le_in_t he_morn ing} QD Vyvanse 60 MG Gentamicin Sulfate 0.3 % Gentamicin Sulfate 0.3 % 2-20 00:00: 00 No 1{drop_ into_af fected_ eye} 6xD Gentamicin Sulfate 0.3 % Gentamicin Sulfate 0.3 % Gentamicin Sulfate 0.3 % 2-20 00:00: 00 No 1{drop_ into_af fected_ eye} 6xD Gentamicin Sulfate 0.3 % Vyvanse 60 MG Vyvanse 60 MG -18 00:00: 00 No 1{capsu le_in_t he_morn ing} QD Vyvanse 60 MG permethrin 5 % cream - 00:00: 00 Yes [id number] Apply cream from neck down, leave on for 8-14 h, repeat in 2 wks [facility] permethrin 5 % cream 04-30 00:00: 00 Yes [id number] As directed. [facility] hydrOXYzine 25 mg tablet 04-30 00:00: 00 05-06 05:59 :00 No [id number] 25mg Take 1 tablet by mouth 3 (three) times daily as needed for Itching for up to 5 days. [facility] foLIC acid 1 mg tablet 04-28 00:00: 00 05-29 05:59 :00 No [id number] 1mg Take 1 tablet by mouth in the morning for 30 days. [facility] thiamine 100 mg tablet 04-28 00:00: 00 05-29 05:59 :00 No [id number] 100mg Take 1 tablet by mouth in the morning for 30 days. [facility] oxazepam (SERAX) capsule 10 mg 04-27 19:15: 00 04-28 19:14 :00 No 10mg 10 mg, Oral, Q12H TAPER, 2 doses, First dose (after last modificati on) on 04/27/23 at 1315, Last dose on 04/28/23 at 0115, Routine [facility] KCL (KLOR-CON M20) tablet 40 mEq 04-27 15:00: 00 Yes 40meq 40 mEq, Oral, DAILY, First dose on 04/27/23 at 0900, Until Discontinu ed, Routine [facility] metoprolol succinate XL (TOPROL XL) tablet 12.5 mg 04-27 15:00: 00 Yes 12.5mg 12.5 mg, Oral, DAILY, First dose on Sat04/27/23 at 0900, Until Discontinu ed, Routine [facility] magnesium oxide (MAG-OX 400) tablet 800 mg 04-27 15:00: 00 04-30 14:59 :00 No 800mg 800 mg, Oral, DAILY, 3 doses, First dose on Sat04/27/23 at 0900, Last dose on Sat04/29/23 at 0900, Routine [facility] lisdexamfet amine (VYVANSE) 60 mg capsule 04-27 09:58: 30 Yes 60mg Take 1 capsule by mouth every morning. [facility] LISINOPRIL ORAL 04-27 08:55: 37 04-27 00:00 :00 No Take by mouth. [facility] KCL 20 mEq tablet 04-27 00:00: 00 05-05 05:59 :00 No [id number] 20meq Take 1 tablet by mouth in the morning for 7 days. [facility] magnesium oxide 420 mg Tab 04-27 00:00: 00 05-05 05:59 :00 No [id number] 400mg Take 400 mg by mouth in the morning for 7 days. [facility] NaCl 0.9% (NS) IV infusion 1,000 mL 04-26 20:00: 00 Yes 1000mL at 150 mL/hr, IV Infusion, CONTINUOUS , Starting on Sat04/26/23 at 1400, Until Discontinu ed, Routine
Resume after banana bag is completed< br> [facility] metoprolol tartrate (LOPRESSOR) tablet 12.5 mg 04-26 20:00: 00 04-27 14:52 :31 No 12.5mg 12.5 mg, Oral, BID, First dose on Sat04/26/23 at 1400, Until Discontinu ed, Routine [facility] magnesium sulfate in water 4 gram/50 mL (8 %) IV Piggyback 4 g 04-26 15:15: 00 04-26 20:54 :00 No 4g 4 g, IV Piggyback, at 25 mL/hr Administer over 120 Minutes, ONCE, 1 dose, On Sat04/26/23 at 0915, CECILIA [facility] potassium chloride in water 10 mEq/100 mL RTU 10 mEq 04-26 14:45: 00 04-26 18:54 :00 No 10meq 10 mEq, IV Piggyback, Q1H, 4 doses, First dose on Sat04/26/23 at 0845, Last dose on Sat04/26/23 at 1100, Administer over 60 Minutes, 100 mL [facility] diazePAM (VALIUM) injection 10 mg 04-25 16:47: 50 Yes 10mg 10 mg, Intravenou s, Q6HPRN, Starting on Sat04/25/23 at 1047, Until Discontinu ed, Routine, Agitation, Withdrawl [facility] foLIC acid (FOLATE) tablet 1 mg 04-25 15:00: 00 Yes 1mg 1 mg, Oral, DAILY, First dose on Sat04/25/23 at 0900, Until Discontinu ed, Routine [facility] thiamine (VITAMIN B1) tablet 100 mg 04-25 15:00: 00 Yes 100mg 100 mg, Oral, DAILY, First dose on Sat04/25/23 at 0900, Until Discontinu ed, Routine [facility] enoxaparin (LOVENOX) injection 40 mg 04-25 15:00: 00 Yes 40mg 40 mg, Subcutaneo us, DAILY, First dose on Sat04/25/23 at 0900, Until Discontinu ed, Routine [facility] oxazepam (SERAX) capsule 15 mg 04-25 13:10: 47 Yes 15mg 15 mg, Oral, Q4HPRN, Starting on Sat04/25/23 at 0710, Until Discontinu ed, Routine, Only while awake for DBP equal to or greater than 100, HR equal to or greater than 100. [facility] potassium chloride in water 10 mEq/100 mL RTU 10 mEq 04-25 13:00: 00 04-25 19:57 :00 No 10meq 10 mEq, IV Piggyback, Q1H, 6 doses, First dose on [place] 04/25/23 at 0700, Last dose on [place] 04/25/23 at 1200, Administer over 60 Minutes, 100 mL [facility] dexMEDEtomi dine 200 mcg in 0.9 % NaCl 50 mL (PRECEDEX) RTU IV infusion 04-25 06:25: 28 Yes .2ug/kg /h 0.2-1.5 mcg/kg/hr ?43.1 kg (2.155-16. 1625 mL/hr, rounded to 2.16-16.16 mL/hr), IV Infusion, TITRATE, Sedation-R ASS score (0 to -1), Starting on [place] 04/25/23 at 0025
In itiate infusion at 0.4 mcg/kg/hr and titrate by 0.1 mcg/kg/hr every 30 minutes to goal sedation score. Maximum dose = 1.5 mcg/kg/hr. If goal not maintained at maximum allowed dose, contact prescriber .
[facility] thiamine (VITAMIN B1) 100 mg, foLIC acid (FOLATE) 1 mg, multivitami n adult (INFUVITE ADULT) 3,300 unit- 150 mcg/10 mL 10 mL in D5W 0.45% NaCl (1/2NS) IV Solution 04-25 06:15: 00 04-25 06:51 :35 No IV Infusion, at 150 mL/hr, ONCE, 1 dose, On [place] 04/25/23 at 0015, 1,000 mL [facility] NaCl 0.9% (NS) IV infusion 1,000 mL 04-25 05:30: 00 04-26 19:52 :00 No 1000mL at 125 mL/hr, IV Infusion, CONTINUOUS , Starting on Sat04/24/23 at 2330, Until Sat04/26/23 at 1352, Routine
Resume after banana bag is completed< br> [facility] NaCl 0.9% (NS) IV infusion 1,000 mL 04-25 03:45: 00 04-25 05:27 :44 No 1000mL at 125 mL/hr, IV Infusion, CONTINUOUS , Starting on Sat04/24/23 at 2145, Until Sat04/24/23 at 2327, Routine [facility] haloperidol lactate (HALDOL) injection 2 mg 04-25 03:42: 43 Yes 2mg 2 mg, Slow IV Push, Q6HPRN, Starting on Sat04/24/23 at 2142, Until Discontinu ed, Routine, Sedation, Psychosis [facility] ondansetron (ZOFRAN (PF)) injection 4 mg 04-25 03:41: 50 Yes 4mg 4 mg, Slow IV Push, Q4HPRN, Starting on Sat04/24/23 at 2141, Until Discontinu ed, Routine, Nausea and Vomiting (N/V) [facility] acetaminoph en (TYLENOL) tablet 650 mg 04-25 03:41: 07 Yes 650mg 650 mg, Oral, Q6HPRN, Starting on Sat04/24/23 at 214, Until Discontinu ed, Routine, Pain (scale 1-3) [facility] cefTRIAXone (ROCEPHIN) 1,000 mg in NaCl 0.9% (NS) 100 mL MINI-BAG 04-25 02:45: 00 04-25 03:06 :00 No 1000mg 1,000 mg, IV Piggyback, ONCE, 1 dose, On Sat04/24/23 at 2045, Administer over 30 Minutes, 100 mL
Reas on for Anti-Infec tive: Documented Infection< br>Documen colleen Infection Site: Urine
D uration of Therapy: Other (see Comments) [facility] iopamidol (ISOVUE 370-500 mL) injection 85 mL 04-25 02:15: 00 04-25 02:15 :00 No 85mL 85 mL, Intravenou s, ONCE, 1 dose, On Sat04/24/23 at 2015, Routine [facility] NaCl 0.9% (NS) bolus infusion 1,000 mL 04-24 23:15: 00 04-25 02:47 :00 No 1000mL at 999 mL/hr, 1,000 mL, IV Infusion, ONCE, 1 dose, On Sat04/24/23 at 1715, STAT [facility] diazePAM (VALIUM) tablet 2.5 mg 04-24 23:15: 00 04-24 23:58 :00 No 2.5mg 2.5 mg, Oral, ONCE, 1 dose, On Sat04/24/23 at 1715, CECILIA [facility] magnesium sulfate in water 2 gram/50 mL (4 %) infusion 2 g 04-24 23:00: 00 04-24 23:58 :00 No 2g 2 g, IV Piggyback, Administer over 60 Minutes, ONCE, 1 dose, On Sat04/24/23 at 1700, Routine [facility] thiamine (VITAMIN B1) injection 100 mg 04-24 22:15: 00 04-24 22:58 :00 No 100mg 100 mg, Slow IV Push, ONCE, 1 dose, [facility]24/23 [facility] 1615[facility] Vyvanse 60 MG 2022-04 2-15 00:00: 00 No 1{capsu le_in_t he_morn ing} QD Vyvanse 60 MG Vyvanse 60 MG Vyvanse 60 MG 2022-04 2-15 00:00: 00 No 1{capsu le_in_t he_morn ing} QD Vyvanse 60 MG Vyvanse 60 MG Vyvanse 60 MG 2022-04 2-15 00:00: 00 No 1{capsu le_in_t he_morn ing} QD Vyvanse 60 MG Vyvanse 60 MG Vyvanse 60 MG 2022-04 2-15 00:00: 00 No 1{capsu le_in_t he_morn ing} QD Vyvanse 60 MG Vyvanse 60 MG Vyvanse 60 MG 2022-04 2-15 00:00: 00 No 1{capsu le_in_t he_morn ing} QD Vyvanse 60 MG Vyvanse 60 MG Vyvanse 60 MG 2022-04 2- 00:00: 00 No 1{capsu le_in_t he_morn ing} QD Vyvanse 60 MG Vyvanse 60 MG Vyvanse 60 MG 2022-04 2- 00:00: 00 No 1{capsu le_in_t he_morn ing} QD Vyvanse 60 MG Vyvanse 60 MG Vyvanse 60 MG 2022-04 2- 00:00: 00 No 1{capsu le_in_t he_morn ing} QD Vyvanse 60 MG Vyvanse 60 MG Vyvanse 60 MG 2022-04 2 00:00: 00 No 1{capsu le_in_t he_morn ing} QD Vyvanse 60 MG Vyvanse 60 MG Vyvanse 60 MG 2022-04 2- 00:00: 00 No 1{capsu le_in_t he_morn ing} QD Vyvanse 60 MG Vyvanse 60 MG Vyvanse 60 MG 2022-04 2- 00:00: 00 No 1{capsu le_in_t he_morn ing} QD Vyvanse 60 MG Vyvanse 60 MG Vyvanse 60 MG 2022-04 1- 00:00: 00 No 1{capsu le_in_t he_morn ing} QD Vyvanse 60 MG Vyvanse 60 MG Vyvanse 60 MG 2022-04 1-16 00:00: 00 No 1{capsu le_in_t he_morn ing} QD Vyvanse 60 MG Vyvanse 60 MG Vyvanse 60 MG 2022-04 1- 00:00: 00 No 1{capsu le_in_t he_morn ing} QD Vyvanse 60 MG Vyvanse 60 MG Vyvanse 60 MG 2022-04 1- 00:00: 00 No 1{capsu le_in_t he_morn ing} QD Vyvanse 60 MG Vyvanse 60 MG Vyvanse 60 MG 2022-04 00:00: 00 No 1{capsu le_in_t he_morn ing} QD Vyvanse 60 MG Vyvanse 60 MG Vyvanse 60 MG 2022-04 00:00: 00 No 1{capsu le_in_t he_morn ing} QD Vyvanse 60 MG Vyvanse 60 MG Vyvanse 60 MG 2022-04 00:00: 00 No 1{capsu le_in_t he_morn ing} QD Vyvanse 60 MG Vyvanse 60 MG Vyvanse 60 MG 2022-04 00:00: 00 No 1{capsu le_in_t he_morn ing} QD Vyvanse 60 MG Vyvanse 60 MG Vyvanse 60 MG 2022-04 00:00: 00 No 1{capsu le_in_t he_morn ing} QD Vyvanse 60 MG Vyvanse 60 MG Vyvanse 60 MG 2022-04 00:00: 00 No 1{capsu le_in_t he_morn ing} QD Vyvanse 60 MG Vyvanse 60 MG Vyvanse 60 MG 2022-04 00:00: 00 No 1{capsu le_in_t he_morn ing} QD Vyvanse 60 MG Vyvanse 60 MG Vyvanse 60 MG 2022-04 00:00: 00 No 1{capsu le_in_t he_morn ing} QD Vyvanse 60 MG Vyvanse 60 MG Vyvanse 60 MG 2022-04 0- 00:00: 00 No 1{capsu le_in_t he_morn ing} QD Vyvanse 60 MG Vyvanse 60 MG Vyvanse 60 MG 2022-04-18 00:00: 00 No 1{capsu le_in_t he_morn ing} QD Vyvanse 60 MG Vyvanse 60 MG Vyvanse 60 MG 2022-04 0-18 00:00: 00 No 1{capsu le_in_t he_morn ing} QD Vyvanse 60 MG Vyvanse 60 MG Vyvanse 60 MG 2022-04 014 00:00: 00 No 1{capsu le_in_t he_morn ing} QD Vyvanse 60 MG Vyvanse 60 MG Vyvanse 60 MG 2022-04 014 00:00: 00 No 1{capsu le_in_t he_morn ing} QD Vyvanse 60 MG Vyvanse 60 MG Vyvanse 60 MG 2022-04 014 00:00: 00 No 1{capsu le_in_t he_morn ing} QD Vyvanse 60 MG Lisdexamfet amine Dimesylate 60 MG Lisdexamfet amine Dimesylate 60 MG 2022-04 0 00:00: 00 No 1{capsu le_in_t he_morn ing} QD Lisdexamfe tamine Dimesylate 60 MG Lisdexamfet amine Dimesylate 60 MG Lisdexamfet amine Dimesylate 60 MG 2022-04 0 00:00: 00 No 1{capsu le_in_t he_morn ing} QD Lisdexamfe tamine Dimesylate 60 MG Lisdexamfet amine Dimesylate 60 MG Lisdexamfet amine Dimesylate 60 MG 2022-04 0 00:00: 00 No 1{capsu le_in_t he_morn ing} QD Lisdexamfe tamine Dimesylate 60 MG Lisdexamfet amine Dimesylate 60 MG Lisdexamfet amine Dimesylate 60 MG 2022-04 0- 00:00: 00 No 1{capsu le_in_t he_morn ing} QD Lisdexamfe tamine Dimesylate 60 MG Lisdexamfet amine Dimesylate 60 MG Lisdexamfet amine Dimesylate 60 MG 2022-04 0-02 00:00: 00 No 1{capsu le_in_t he_morn ing} QD Lisdexamfe tamine Dimesylate 60 MG Lisdexamfet amine Dimesylate 60 MG Lisdexamfet amine Dimesylate 60 MG 2022-04 0-02 00:00: 00 No 1{capsu le_in_t he_morn ing} QD Lisdexamfe tamine Dimesylate 60 MG Lisdexamfet amine Dimesylate 60 MG Lisdexamfet amine Dimesylate 60 MG 2022-04 0-02 00:00: 00 No 1{capsu le_in_t he_morn ing} QD Lisdexamfe tamine Dimesylate 60 MG Lisdexamfet amine Dimesylate 60 MG Lisdexamfet amine Dimesylate 60 MG 2022-04 0-02 00:00: 00 No 1{capsu le_in_t he_morn ing} QD Lisdexamfe tamine Dimesylate 60 MG Lisdexamfet amine Dimesylate 60 MG Lisdexamfet amine Dimesylate 60 MG 2022-04 0-02 00:00: 00 No 1{capsu le_in_t he_morn ing} QD Lisdexamfe tamine Dimesylate 60 MG Lisdexamfet amine Dimesylate 60 MG Lisdexamfet amine Dimesylate 60 MG 2022-04 0-02 00:00: 00 No 1{capsu le_in_t he_morn ing} QD Lisdexamfe tamine Dimesylate 60 MG Lisdexamfet amine Dimesylate 60 MG Lisdexamfet amine Dimesylate 60 MG 2022-04 0-02 00:00: 00 No 1{capsu le_in_t he_morn ing} QD Lisdexamfe tamine Dimesylate 60 MG Lisdexamfet amine Dimesylate 60 MG Lisdexamfet amine Dimesylate 60 MG 2022-04 0-02 00:00: 00 No 1{capsu le_in_t he_morn ing} QD Lisdexamfe tamine Dimesylate 60 MG Lisdexamfet amine Dimesylate 60 MG Lisdexamfet amine Dimesylate 60 MG 2022-04 0-02 00:00: 00 No 1{capsu le_in_t he_morn ing} QD Lisdexamfe tamine Dimesylate 60 MG Lisdexamfet amine Dimesylate 60 MG Lisdexamfet amine Dimesylate 60 MG 2022-04 0 00:00: 00 No 1{capsu le_in_t he_morn ing} QD Lisdexamfe tamine Dimesylate 60 MG Lisdexamfet amine Dimesylate 60 MG Lisdexamfet amine Dimesylate 60 MG 2022-04 0 00:00: 00 No 1{capsu le_in_t he_morn ing} QD Lisdexamfe tamine Dimesylate 60 MG LISINOPRIL ORAL 12-12 09:09: 49 Yes Take by mouth. [facility] lisdexamfet amine (VYVANSE) 60 mg capsule 12-12 09:09: 24 Yes 60mg Take 1 capsule by mouth every morning. [facility] oxazepam (SERAX) capsule 15 mg 11-14 08:09: 00 11-15 08:14 :00 No 15mg 15 mg, Oral, Q12H TAPER, 2 doses, First dose on Sat11/14/22 at 0315, Last dose on Sat11/14/22 at 1515, Routine [facility] lisdexamfet amine (VYVANSE) 60 mg capsule 11-13 18:24: 40 Yes 60mg Take 1 capsule by mouth every morning. [facility] potassium phosphate 15 mmol in NaCl 0.9% (NS) 150 mL piggyback 11-13 14:30: 00 11-13 19:51 :00 No 15mmol 15 mmol, IV Piggyback, ONCE, 1 dose, On Sat11/13/22 at 0930, 150 mL [facility] sennosides (SENOKOT) tablet 8.6 mg 11-12 14:00: 00 Yes 8.6mg 8.6 mg, Oral, DAILY, First dose on Sat11/12/22 at 0900, Until Discontinu ed, Routine [facility] D5W 0.45% NaCl (1/2NS) IV infusion 1,000 mL 11-12 13:30: 00 11-12 14:54 :49 No 1000mL at 100 mL/hr, 1,000 mL, IV Infusion, ONCE, 1 dose, On Sat11/12/22 at 0830, Routine [facility] acetaminoph en (TYLENOL) tablet 500 mg 11-12 03:43: 02 Yes 500mg 500 mg, Oral, Q6HPRN, Starting on Sat11/11/22 at 2243, Until Discontinu ed, Routine, Pain (scale 1-3) [facility] oxazepam (SERAX) capsule 15 mg 11-12 02:09: 00 Yes 15mg 15 mg, Oral, Q4HPRN, Starting on Sat11/11/22 at 2109, Until Discontinu ed, Routine, Only while awake for DBP equal to or greater than 100, HR equal to or greater than 100. [facility] D5W 0.9% NaCl (NS) 1 L + KCL 20 mEq 11-11 19:15: 00 11-12 12:42 :08 No IV Infusion, at 100 mL/hr, CONTINUOUS , Starting on Sat11/11/22 at 1415, Until Sat11/12/22 at 0742, Routine [facility] multivitami n oral solution 15 mL 11-11 18:15: 00 Yes 15mL 15 mL, Oral, DAILY, First dose on Sat11/11/22 at 1315, Until Discontinu ed, Routine [facility] potassium chloride in water (KCL) 20 mEq/100 mL RTU IVPB 20 mEq 11-11 10:45: 00 11-11 16:30 :00 No 20meq 20 mEq, IV Infusion, Q2H ES, 2 doses, First dose on Sat11/11/22 at 0545, Last dose on Sat11/11/22 at 0745, 100 mL [facility] glucagon (GLUCAGEN DIAGNOSTIC KIT) injection 1 mg 11-11 10:16: 15 Yes 1mg 1 mg, Intramuscu lar, PRN, Starting on Sat11/11/22 at 0516, Until Discontinu ed, CECILIA, Blood Glucose < or = 70 mg/dL and patient is NPO, unable to swallow or has mental changes. [facility] dextrose 50 % in water (D50W) injection 25 mL 11-11 10:16: 15 Yes 25mL 25 mL, Slow IV Push, PRN, Starting on 11/11/22 at 0516, Until Discontinu ed, CECILIA, Blood Glucose < or = 70 mg/dL and patient is NPO, unable to swallow or has mental status changes. [facility] NaCl 0.9% (NS) IV infusion 1,000 mL 11-11 01:30: 00 11-11 17:57 :28 No 1000mL at 100 mL/hr, IV Infusion, CONTINUOUS , Starting on 11/10/22 at 2030, Until [place] 11/11/22 at 1257, Routine [facility] heparin (porcine) injection 5,000 Units 11-11 01:00: 00 Yes 5000U 5,000 Units, Subcutaneo us, Q12H, First dose on 11/10/22 at 2000, Until Discontinu ed, Routine [facility] magnesium sulfate in water 2 gram/50 mL (4 %) infusion 2 g 11-11 00:45: 00 11-11 04:01 :00 No 2g 2 g, IV Piggyback, Administer over 60 Minutes, ONCE, 1 dose, On 11/10/22 at 1945, Routine [facility] dexMEDEtomi dine 200 mcg in 0.9 % NaCl 50 mL (PRECEDEX) RTU IV infusion 11-11 00:42: 42 11-12 02:16 :46 No .2ug/kg /h 0.2-1.5 mcg/kg/hr ?49 kg (2.45-18.3 75 mL/hr, rounded to 2.45-18.38 mL/hr), IV Infusion, TITRATE, Sedation-R ASS score (0 to -1), Starting on 11/10/22 at 1942
In itiate infusion at 0.2 mcg/kg/hr and titrate by 0.1 mcg/kg/hr every 30 minutes to goal sedation score. Maximum dose = 1.5 mcg/kg/hr. If goal not maintained at maximum allowed dose, contact prescriber .
[facility] foLIC acid (FOLATE) injection 1 mg 11-11 00:00: 00 Yes 1mg 1 mg, Intramuscu lar, DAILY, First dose on 11/10/22 at 1900, Until Discontinu ed, Routine [facility] thiamine (VITAMIN B1) 100 mg in NaCl 0.9% (NS) piggyback 11-11 00:00: 00 11-15 13:59 :00 No 100mg IV Piggyback, DAILY, 5 doses, First dose on Sat11/10/22 at 1900, Last dose on Sat11/14/22 at 0900, 50 mL [facility] LORazepam (ATIVAN) injection 1 mg 11-10 23:43: 00 11-12 02:09 :22 No 1mg 1 mg, Slow IV Push, TIDPRN, Starting on 11/10/22 at 1843, Until 11/11/22 at 2109, Routine, Seizures [facility] diazePAM (VALIUM) injection 10 mg 11-10 23:15: 00 11-10 23:17 :00 No 10mg 10 mg, Slow IV Push, ONCE, 1 dose, On 11/10/22 at 1815, STAT [facility] proMETHazin e (PHENERGAN) 25 mg in NaCl 0.9% (NS) 50 mL piggyback 11-10 23:15: 00 11-10 23:19 :00 No 25mg 25 mg, IV Piggyback, ONCE, 1 dose, On 11/10/22 at 1815, 50 mL [facility] LORazepam (ATIVAN) injection 2 mg 11-10 23:00: 00 11-10 23:10 :00 No 2mg 2 mg, Slow IV Push, ONCE, 1 dose, On 11/10/22 at 1800, STAT [facility] LORazepam (ATIVAN) injection 1 mg 11-10 22:15: 00 11-10 22:26 :00 No 1mg 1 mg, Slow IV Push, ONCE, 1 dose, On Sat11/10/22 at 1715, STAT [facility] lisinopriL 2.5 mg tablet 11-08 00:00: 00 12-09 04:59 :00 No [id number] 2.5mg Take 1 tablet by mouth in the morning for 30 days. [facility] magnesium sulfate in water 2 gram/50 mL (4 %) infusion 2 g 11-07 15:00: 00 11-07 15:40 :00 No 2g 2 g, IV Piggyback, Administer over 60 Minutes, ONCE, 1 dose, On Sat11/07/22 at 1000, Routine [facility] lisdexamfet amine (VYVANSE) 60 mg capsule 11-07 14:54: 12 Yes 60mg Take 1 capsule by mouth every morning. [facility] lisinopriL (PRINIVIL,Z ESTRIL) tablet 2.5 mg 11-07 14:15: 00 Yes 2.5mg 2.5 mg, Oral, DAILY, First dose on Sat11/07/22 at 0915, Until Discontinu ed, Routine [facility] enoxaparin (LOVENOX) injection 40 mg 11-06 22:00: 00 Yes 40mg 40 mg, Subcutaneo us, DAILY, First dose on Sat11/06/22 at 1700, Until Discontinu ed, Routine [facility] pantoprazol e (PROTONIX) EC tablet 40 mg 11-06 14:00: 00 Yes 40mg 40 mg, Oral, DAILY, First dose on Sat11/06/22 at 0900, Until Discontinu ed, Routine [facility] metoprolol succinate XL (TOPROL XL) tablet 25 mg 11-06 14:00: 00 Yes 25mg 25 mg, Oral, DAILY, First dose on Sat11/06/22 at 0900, Until Discontinu ed, Routine [facility] docusate (COLACE) capsule 100 mg 11-06 13:00: 00 Yes 100mg 100 mg, Oral, BID, First dose on Sat11/06/22 at 0800, Until Discontinu ed, Routine [facility] D5W 0.9% NaCl (NS) IV infusion 1,000 mL 11-06 12:15: 00 11-08 12:14 :00 No 1000mL at 200 mL/hr, 1,000 mL, IV Infusion, CONTINUOUS , Starting on Sat11/06/22 at 0715, Until Sat11/08/22 at 0714, [facility] D5W 0.9% NaCl (NS) IV infusion 1,000 mL 11-06 11:30: 00 11-06 12:13 :19 No 1000mL at 200 mL/hr, 1,000 mL, IV Infusion, CONTINUOUS , Starting on Sat11/06/22 at 0630, Until Sat11/06/22 at 0713, [facility] ondansetron (ZOFRAN (PF)) injection 4 mg 11-06 10:31: 07 Yes 4mg 4 mg, Slow IV Push, Q6HPRN, Starting on Sat11/06/22 at 0531, Until Discontinu ed, Routine, Nausea and Vomiting (N/V) [facility] bisacodyL (DULCOLAX) tablet 10 mg 11-06 10:31: 02 Yes 10mg 10 mg, Oral, QDAILYPRN, Starting on Sat11/06/22 at 0531, Until Discontinu ed, Routine, Constipati on [facility] FENTanyl PF (SUBLIMAZE (PF)) injection 25 mcg 11-06 10:30: 33 11-07 10:29 :33 No 25ug 25 mcg, Slow IV Push, Q4HPRN, Starting on Sat11/06/22 at 0530, Until Sat11/07/22 at 0529, Routine, Pain (scale 7-10) [facility] acetaminoph en (TYLENOL) tablet 650 mg 11-06 10:29: 53 Yes 650mg 650 mg, Oral, Q6HPRN, Starting on Sat11/06/22 at 0529, Until Discontinu ed, Routine, Pain (scale 1-3) [facility] foLIC acid (FOLATE) 5 mg in NaCl 0.9% (NS) piggyback 11-06 10:15: 00 11-06 10:35 :00 No 5mg IV Piggyback, ONCE NOW, 1 dose, On Sat11/06/22 at 0515, 50 mL [facility] thiamine (VITAMIN B1) 100 mg in NaCl 0.9% (NS) piggyback 11-06 10:15: 00 11-06 10:45 :00 No 100mg IV Piggyback, ONCE NOW, 1 dose, On Sat11/06/22 at 0515, 50 mL [facility] NaCl 0.9% (NS) bolus infusion 1,000 mL 11-06 09:00: 00 11-06 09:11 :00 No 1000mL at 999 mL/hr, 1,000 mL, IV Piggyback, ONCE, 1 dose, On Sat11/06/22 at 0400, STAT [facility] morpHINE (4 mg/mL) injection 4 mg 11-06 09:00: 00 11-06 08:54 :00 No 4mg 4 mg, Slow IV Push, ONCE, 1 dose, On Sat11/06/22 at 0400, STAT [facility] iopamidol (ISOVUE 370-500 mL) injection 70 mL 11-06 07:45: 00 11-06 06:58 :00 No [id number] 70mL 70 mL, Intravenou s, ONCE, 1 dose, On Sat11/06/22 at 0245, Routine [facility] ketorolac (TORADOL) injection 30 mg 11-06 07:30: 00 11-06 06:33 :00 No 30mg 30 mg, Slow IV Push, ONCE, 1 dose, On Sat11/06/22 at 0230, Routine [facility] NaCl 0.9% (NS) bolus infusion 1,000 mL 11-06 07:15: 00 11-06 08:11 :00 No 1000mL at 999 mL/hr, 1,000 mL, IV Infusion, ONCE, 1 dose, On Sat11/06/22 at 0215, CECILIA [facility] FENTanyl PF (SUBLIMAZE (PF)) injection 50 mcg 11-06 07:15: 00 11-06 06:34 :00 No 50ug 50 mcg, Slow IV Push, ONCE, 1 dose, On Sat11/06/22 at 0215, Routine [facility] ondansetron (ZOFRAN (PF)) injection 4 mg 11-06 06:30: 00 11-06 06:34 :00 No 4mg 4 mg, Slow IV Push, ONCE, 1 dose, On Sat11/06/22 at 0130, CECILIA [facility] albuterol 90 mcg/actuati on inhaler 11-06 01:23: 41 11-06 00:00 :00 No 2{puff} Inhale 2 Puffs every 6 (six) hours as needed for Wheezing or Shortness of Breath. [facility] ibuprofen 600 mg tablet 11-06 01:23: 41 11-06 00:00 :00 No 600mg Take 600 mg by mouth in the morning. [facility] lisdexamfet amine (VYVANSE) 60 mg capsule 10-30 00:00: 00 11-06 00:00 :00 No 1 capsule in the morning Orally Once a day for 30 days [facility] doxycycline hyclate (Vibramycin ) capsule 100 mg 08-28 03:30: 00 08-28 03:50 :00 No 100mg 100 mg, Oral, ONCE, 1 dose, On Sat08/27/22 at 2230, CECILIA
Re ason for Anti-Infec tive: Documented Infection< br>Documen colleen Infection Site: Skin / Soft Tissue
Duration of Therapy: 10 days [facility] cephALEXin (KEFLEX) capsule 500 mg 08-28 03:30: 00 08-28 03:50 :00 No 500mg 500 mg, Oral, ONCE, 1 dose, On Sat08/27/22 at 2230, CECILIA
Re ason for Anti-Infec tive: Empiric Therapy for Suspected Infection< br>Empiric Therapy Site: Skin / Soft tissue
Duration of therapy: 5 days [facility] lisdexamfet amine (VYVANSE) 60 mg capsule 08-27 22:56: 45 Yes 60mg Take 1 capsule by mouth every morning. [facility] pantoprazol e 40 mg EC tablet 08-27 20:42: 39 08-27 00:00 :00 No 40mg Take 40 mg by mouth in the morning. [facility] lisdexamfet amine 50 mg capsule 08-27 20:42: 27 08-27 00:00 :00 No 50mg Take 50 mg by mouth every morning. [facility] doxycycline hyclate 100 mg capsule 08-27 00:00: 00 Yes [id number] 100mg Take 1 capsule by mouth in the morning and 1 capsule in the evening. [facility] cephALEXin (KEFLEX) 500 mg capsule 08-27 00:00: 00 09-04 04:59 :00 No [id number] 500mg Take 1 capsule by mouth in the morning and 1 capsule at noon and 1 capsule in the evening. Do all this for 7 days. [facility] cefTRIAXone Sodium cefTRIAXone Sodium 10 00:00: 00 No 1g [facility] cefTRIAXone Sodium cefTRIAXone Sodium 2022-0 2-10 00:00: 00 No 1g [facility] cefTRIAXone Sodium cefTRIAXone Sodium 2022-0 2-10 00:00: 00 No 1g [facility] cefTRIAXone Sodium cefTRIAXone Sodium 2022-0 2-10 00:00: 00 No 1g [facility] cefTRIAXone Sodium cefTRIAXone Sodium 2022-0 2-10 00:00: 00 No 1g [facility] cefTRIAXone Sodium cefTRIAXone Sodium 3-0 2-10 00:00: 00 No 1g [facility] cefTRIAXone Sodium cefTRIAXone Sodium 3-0 2-10 00:00: 00 No 1g [facility] cefTRIAXone Sodium cefTRIAXone Sodium 3-0 2-10 00:00: 00 No 1g [facility] cefTRIAXone Sodium cefTRIAXone Sodium 3-0 2-10 00:00: 00 No 1g [facility] cefTRIAXone Sodium cefTRIAXone Sodium 3-0 2-10 00:00: 00 No 1g [facility] cefTRIAXone Sodium cefTRIAXone Sodium 3-0 2-10 00:00: 00 No 1g [facility] cefTRIAXone Sodium cefTRIAXone Sodium 2022-0 2-10 00:00: 00 No 1g [facility] cefTRIAXone Sodium cefTRIAXone Sodium 2022-0 2-10 00:00: 00 No 1g [facility] cefTRIAXone Sodium cefTRIAXone Sodium 2022-0 2-10 00:00: 00 No 1g [facility] cefTRIAXone Sodium cefTRIAXone Sodium 2022-0 2-10 00:00: 00 No 1g [facility] cefTRIAXone Sodium cefTRIAXone Sodium 2022-0 2-10 00:00: 00 No 1g [facility] cefTRIAXone Sodium cefTRIAXone Sodium 2022-0 2-10 00:00: 00 No 1g [facility] cefTRIAXone Sodium cefTRIAXone Sodium 2022-0 2-10 00:00: 00 No 1g [facility] Vyvanse 60 MG Vyvanse 60 MG 2022-0 1-10 00:00: 00 No 1{capsu le_in_t he_morn ing} QD Vyvanse 60 MG iopamidol (ISOVUE 370-500 mL) injection 80 mL 2021-04 01:00: 00 04-13 00:03 :00 No [id number] 80mL 80 mL, Intravenou s, ONCE, 1 dose, On [place] 04/12/22 at 1900, Routine [facility] NaCl 0.9% (NS) bolus infusion 500 mL 2021-04 23:30: 00 04-12 23:47 :00 No 500mL at 999 mL/hr, 500 mL, IV Infusion, ONCE, 1 dose, On Sat04/12/22 at 1730, CECILIA [facility] morpHINE (4 mg/mL) injection 4 mg 2021-04 22:45: 00 04-12 23:03 :00 No 4mg 4 mg, Slow IV Push, ONCE, 1 dose, On Sat04/12/22 at 1645, STAT [facility] ampicillin- sulbactam (UNASYN) 3 g in NaCl 0.9% (NS) 100 mL MINI-BAG 2021-04 22:45: 00 04-12 23:34 :00 No 3g 3 g, IV Piggyback, ONCE, 1 dose, On [place] 04/12/22 at 1645, Administer over 30 Minutes, 100 mL
Reas on for Anti-Infec tive: Documented Infection< br>Documen colleen Infection Site: HEENT
D uration of Therapy: 7 days [facility] HYDROcodone -acetaminop hen 5-325 mg tablet 2021-04 00:00: 00 04-20 05:59 :00 No [id number] 1{tbl} Take 1 tablet by mouth every 6 (six) hours as needed for Pain (scale 7-10) for up to 7 days. Indication s: acute pain [facility] dexamethaso ne sod phos PF injection 10 mg 2021-04 06:30: 00 04-09 06:32 :00 No 10mg 10 mg, Oral, ONCE, 1 dose, On Sat04/09/22 at 0030, 1 mL [facility] Vyvanse 60 MG Vyvanse 60 MG 2021-04 00:00: 00 No 1{capsu le_in_t he_morn ing} QD Vyvanse 60 MG Vyvanse 60 MG Vyvanse 60 MG 2021-04 00:00: 00 No 1{capsu le_in_t he_morn ing} QD Vyvanse 60 MG Vyvanse 60 MG Vyvanse 60 MG 2021-04 2-10 00:00: 00 No 1{capsu le_in_t he_morn ing} QD Vyvanse 60 MG Vyvanse 60 MG Vyvanse 60 MG 2021-04 1-11 00:00: 00 No 1{capsu le_in_t he_morn ing} QD Vyvanse 60 MG Vyvanse 60 MG Vyvanse 60 MG 2021-04 1-11 00:00: 00 No 1{capsu le_in_t he_morn ing} QD Vyvanse 60 MG Vyvanse 60 MG Vyvanse 60 MG 2021-04 0- 00:00: 00 No 1{capsu le_in_t he_morn ing} QD Vyvanse 60 MG Vyvanse 60 MG Vyvanse 60 MG 9- 00:00: 00 No 1{capsu le_in_t he_morn ing} QD Vyvanse 60 MG lisdexamfet amine 50 mg capsule 11-13 15:00: 18 Yes 50mg Take 50 mg by mouth every morning. [facility] pantoprazol e 40 mg EC tablet 11-13 15:00: 18 Yes 40mg Take 40 mg by mouth in the morning. [facility] ibuprofen 600 mg tablet 11-13 15:00: 18 Yes 600mg Take 600 mg by mouth in the morning. [facility] aspirin 325 mg tablet 11-13 00:00: 00 12-12 04:59 :00 No [id number] 325mg Take 1 tablet by mouth in the morning and 1 tablet in the evening. Take with meals. Do all this for 28 days. [facility] Medrol 4 MG Medrol 4 MG 10-17 00:00: 00 10-23 00:00 :00 No Medrol 4 MG Vyvanse 60 MG Vyvanse 60 MG 5-10 00:00: 00 No 1{capsu le_in_t he_morn ing} QD Vyvanse 60 MG Vyvanse 60 MG Vyvanse 60 MG 0 4-11 00:00: 00 No 1{capsu le_in_t he_morn ing} QD Vyvanse 60 MG valACYclovi r HCl 1 GM valACYclovi r HCl 1 GM 3-24 00:00: 00 09-11 00:00 :00 No 1{table t} QD valACYclov ir HCl 1 GM Vyvanse 60 MG Vyvanse 60 MG 3-07 00:00: 00 No 1{capsu le_in_t he_morn ing} QD Vyvanse 60 MG Vyvanse 60 MG Vyvanse 60 MG 2 00:00: 00 No 1{capsu le_in_t he_morn ing} QD Vyvanse 60 MG Vyvanse 60 MG Vyvanse 60 MG 2020-04 2 00:00: 00 No 1{capsu le_in_t he_morn ing} QD Vyvanse 60 MG Vyvanse 60 MG Vyvanse 60 MG 2020-04 0 00:00: 00 No 1{capsu le_in_t he_morn ing} QD Vyvanse 60 MG Vyvanse 60 MG Vyvanse 60 MG 924 00:00: 00 No 1{capsu le_in_t he_morn ing} QD Vyvanse 60 MG Nystatin [id number] UNIT/ML Nystatin [id number] UNIT/ML 01-09 00:00: 00 01-23 00:00 :00 No QID Nystatin [id number] UNIT/ML Vitamin B12 (Cyanocobal patel) Vitamin B12 (Cyanocobal patel) 01-17 00:00: 00 No 1000ug [facility] Vitamin B12 (Cyanocobal patel) Vitamin B12 (Cyanocobal patel) 01-17 00:00: 00 No 1000ug [facility] Vitamin B12 (Cyanocobal patel) Vitamin B12 (Cyanocobal patel) 01-17 00:00: 00 No 1000ug [facility] Vitamin B12 (Cyanocobal patel) Vitamin B12 (Cyanocobal patel) 2020-0 9-28 00:00: 00 No 1000ug [facility] Vitamin B12 (Cyanocobal patel) Vitamin B12 (Cyanocobal patel) 2020-0 9-28 00:00: 00 No 1000ug [facility] Vitamin B12 (Cyanocobal patel) Vitamin B12 (Cyanocobal patel) 2020-0 9-28 00:00: 00 No 1000ug [facility] Vitamin B12 (Cyanocobal patel) Vitamin B12 (Cyanocobal patel) 2020-0 9-28 00:00: 00 No 1000ug [facility] Vitamin B12 (Cyanocobal patel) Vitamin B12 (Cyanocobal patel) 2020-0 9- 00:00: 00 No 1000ug [facility] Vitamin B12 (Cyanocobal patel) Vitamin B12 (Cyanocobal patel) 2020-0 9-28 00:00: 00 No 1000ug [facility] Vitamin B12 (Cyanocobal patel) Vitamin B12 (Cyanocobal patel) 2020-0 9-28 00:00: 00 No 1000ug [facility] Vitamin B12 (Cyanocobal patel) Vitamin B12 (Cyanocobal patel) 2020-0 9-28 00:00: 00 No 1000ug [facility] Vitamin B12 (Cyanocobal patel) Vitamin B12 (Cyanocobal patel) 2020-0 9-28 00:00: 00 No 1000ug [facility] Vitamin B12 (Cyanocobal patel) Vitamin B12 (Cyanocobal patel) 2020-0 9-28 00:00: 00 No 1000ug [facility] Vitamin B12 (Cyanocobal patel) Vitamin B12 (Cyanocobal patel) 2020-0 9-28 00:00: 00 No 1000ug [facility] Vitamin B12 (Cyanocobal patel) Vitamin B12 (Cyanocobal patel) 2020-0 9-28 00:00: 00 No 1000ug [facility] Vitamin B12 (Cyanocobal patel) Vitamin B12 (Cyanocobal patel) 2020-0 9-28 00:00: 00 No 1000ug [facility] Vitamin B12 (Cyanocobal patel) Vitamin B12 (Cyanocobal patel) 2020-0 9-28 00:00: 00 No 1000ug [facility] Vitamin B12 (Cyanocobal patel) Vitamin B12 (Cyanocobal patel) 2020-0 9-28 00:00: 00 No 1000ug [facility] Vitamin B12 (Cyanocobal patel) Vitamin B12 (Cyanocobal patel) 2020-0 9-28 00:00: 00 No 1000ug [facility] Vitamin B12 (Cyanocobal patel) Vitamin B12 (Cyanocobal patel) 2019-0 9-28 00:00: 00 No 1000ug [facility] Vitamin B12 (Cyanocobal patel) Vitamin B12 (Cyanocobal patel) 2019-0 9-28 00:00: 00 No 1000ug [facility] Vitamin B12 (Cyanocobal patel) Vitamin B12 (Cyanocobal patel) 2019-0 9-28 00:00: 00 No 1000ug [facility] Vitamin B12 (Cyanocobal patel) Vitamin B12 (Cyanocobal patel) 2019-0 9-28 00:00: 00 No 1000ug [facility] Vitamin B12 (Cyanocobal patel) Vitamin B12 (Cyanocobal patel) 2019-0 9-28 00:00: 00 No 1000ug [facility] Medrol Medrol 2019-0 8-18 00:00: 00 08 00:00 :00 No Leander Malagon as directed [facility] Solumedrol 125mg/2ml Solumedrol 125mg/2ml 2019-0 8-17 00:00: 00 No 42mg [facility] Solumedrol 125mg/2ml Solumedrol 125mg/2ml 2019-0 8-17 00:00: 00 No 42mg [facility] Solumedrol 125mg/2ml Solumedrol 125mg/2ml 2019-0 8-17 00:00: 00 No 42mg [facility] Solumedrol 125mg/2ml Solumedrol 125mg/2ml 2019-0 8-17 00:00: 00 No 42mg [facility] Solumedrol 125mg/2ml Solumedrol 125mg/2ml 2019-0 8-17 00:00: 00 No 42mg [facility] Solumedrol 125mg/2ml Solumedrol 125mg/2ml 2019-0 8-17 00:00: 00 No 42mg [facility] Solumedrol 125mg/2ml Solumedrol 125mg/2ml 2019-0 8-17 00:00: 00 No 42mg [facility] Solumedrol 125mg/2ml Solumedrol 125mg/2ml 2019-0 8-17 00:00: 00 No 42mg [facility] Solumedrol 125mg/2ml Solumedrol 125mg/2ml 2019-0 8-17 00:00: 00 No 42mg [facility] Solumedrol 125mg/2ml Solumedrol 125mg/2ml 2019-0 8-17 00:00: 00 No 42mg [facility] Solumedrol 125mg/2ml Solumedrol 125mg/2ml 2019-0 8-17 00:00: 00 No 42mg [facility] Solumedrol 125mg/2ml Solumedrol 125mg/2ml 2019-0 8-17 00:00: 00 No 42mg [facility] Solumedrol 125mg/2ml Solumedrol 125mg/2ml 2019-0 8-17 00:00: 00 No 42mg [facility] Solumedrol 125mg/2ml Solumedrol 125mg/2ml 2019-0 8-17 00:00: 00 No 42mg [facility] Solumedrol 125mg/2ml Solumedrol 125mg/2ml 2019-0 8-17 00:00: 00 No 42mg [facility] Solumedrol 125mg/2ml Solumedrol 125mg/2ml 2019-0 8-17 00:00: 00 No 42mg [facility] Solumedrol 125mg/2ml Solumedrol 125mg/2ml 2019-0 8-17 00:00: 00 No 42mg [facility] Solumedrol 125mg/2ml Solumedrol 125mg/2ml 2019-0 8-17 00:00: 00 No 42mg [facility] Solumedrol 125mg/2ml Solumedrol 125mg/2ml 2019-0 8-17 00:00: 00 No 42mg [facility] Solumedrol 125mg/2ml Solumedrol 125mg/2ml 2019-0 8-17 00:00: 00 No 42mg [facility] Solumedrol 125mg/2ml Solumedrol 125mg/2ml 0 8- 00:00: 00 No 42mg [facility] Solumedrol 125mg/2ml Solumedrol 125mg/2ml 0 8-17 00:00: 00 No 42mg [facility] Solumedrol 125mg/2ml Solumedrol 125mg/2ml 0 817 00:00: 00 No 42mg [facility] Solumedrol 125mg/2ml Solumedrol 125mg/2ml 0 817 00:00: 00 No 42mg [facility] metoprolol succinate XL 25 mg 24 hr tablet 11-05 00:00: 00 Yes [id number] 25mg Take 1 tablet by mouth daily. [facility] Kenalog (Triamcinol one) Kenalog (Triamcinol one) 08-14 00:00: 00 No 40mg [facility] Kenalog (Triamcinol one) Kenalog (Triamcinol one) 0 08-14 00:00: 00 No 40mg [facility] Kenalog (Triamcinol one) Kenalog (Triamcinol one) 0 08-14 00:00: 00 No 40mg [facility] Kenalog (Triamcinol one) Kenalog (Triamcinol one) 0 08-14 00:00: 00 No 40mg [facility] Kenalog (Triamcinol one) Kenalog (Triamcinol one) 0 08-14 00:00: 00 No 40mg [facility] Kenalog (Triamcinol one) Kenalog (Triamcinol one) 0 08-14 00:00: 00 No 40mg [facility] Kenalog (Triamcinol one) Kenalog (Triamcinol one) 0 08-14 00:00: 00 No 40mg [facility] Kenalog (Triamcinol one) Kenalog (Triamcinol one) 0 08-14 00:00: 00 No 40mg [facility] Kenalog (Triamcinol one) Kenalog (Triamcinol one) 0 08-14 00:00: 00 No 40mg [facility] Kenalog (Triamcinol one) Kenalog (Triamcinol one) 0 08-14 00:00: 00 No 40mg [facility] Kenalog (Triamcinol one) Kenalog (Triamcinol one) 0 08-14 00:00: 00 No 40mg [facility] Kenalog (Triamcinol one) Kenalog (Triamcinol one) [id number] 08-14 00:00: 00 No 40mg [facility] Kenalog (Triamcinol one) Kenalog (Triamcinol one) 0 08-14 00:00: 00 No 40mg [facility] Kenalog (Triamcinol one) Kenalog (Triamcinol one) 0 08-14 00:00: 00 No 40mg [facility] Kenalog (Triamcinol one) Kenalog (Triamcinol one) 0 08-14 00:00: 00 No 40mg [facility] Kenalog (Triamcinol one) Kenalog (Triamcinol one) 08-14 00:00: 00 No 40mg [facility] Kenalog (Triamcinol one) Kenalog (Triamcinol one) 08-14 00:00: 00 No 40mg [facility] Kenalog (Triamcinol one) Kenalog (Triamcinol one) 08-14 00:00: 00 No 40mg [facility] Kenalog (Triamcinol one) Kenalog (Triamcinol one) 08-14 00:00: 00 No 40mg [facility] Kenalog (Triamcinol one) Kenalog (Triamcinol one) 08-14 00:00: 00 No 40mg [facility] Kenalog (Triamcinol one) Kenalog (Triamcinol one) 08-14 00:00: 00 No 40mg [facility] Kenalog (Triamcinol one) Kenalog (Triamcinol one) 08-14 00:00: 00 No 40mg [facility] Kenalog (Triamcinol one) Kenalog (Triamcinol one) 08-14 00:00: 00 No 40mg [facility] Kenalog (Triamcinol one) Kenalog (Triamcinol one) 0 08-14 00:00: 00 No 40mg [facility] Pantoprazol e Sodium 40 MG Pantoprazol e Sodium 40 MG No 1{table t} QD Pantoprazo le Sodium 40 MG Toprol XL 25 MG Toprol XL 25 MG No 1{table t} QD Toprol XL 25 MG Symbicort 80-4.5 MCG/ACT Symbicort 80-4.5 MCG/ACT No 2{puffs } QD Symbicort 80-4.5 MCG/ACT Albuterol Sulfate HFA 108 (90 Base) MCG/ACT Albuterol Sulfate HFA 108 (90 Base) MCG/ACT No 2{puffs _as_nee ded} QID Albuterol Sulfate HFA 108 (90 Base) MCG/ACT Iron 325 (65 Fe) MG Iron 325 (65 Fe) MG No 1{table t} BID Iron 325 (65 Fe) MG Chantix 1 MG Chantix 1 MG No 1{table t} BID Chantix 1 MG Proctofoam HC 1-1 % Proctofoam HC 1-1 % No 1{appli cation_ to_affe cted_ar ea} TID Proctofoam HC 1-1 % Chantix 1 MG Chantix 1 MG No 1{table t} BID Chantix 1 MG Toprol XL 25 MG Toprol XL 25 MG No 1{table t} QD Toprol XL 25 MG Chantix 1 MG Chantix 1 MG No 1{table t} BID Chantix 1 MG Proctofoam HC 1-1 % Proctofoam HC 1-1 % No 1{appli cation_ to_affe cted_ar ea} TID Proctofoam HC 1-1 % Symbicort 80-4.5 MCG/ACT Symbicort 80-4.5 MCG/ACT No 2{puffs } QD Symbicort 80-4.5 MCG/ACT Iron 325 (65 Fe) MG Iron 325 (65 Fe) MG No 1{table t} BID Iron 325 (65 Fe) MG Pantoprazol e Sodium 40 MG Pantoprazol e Sodium 40 MG No 1{table t} QD Pantoprazo le Sodium 40 MG Albuterol Sulfate HFA 108 (90 Base) MCG/ACT Albuterol Sulfate HFA 108 (90 Base) MCG/ACT No 2{puffs _as_nee ded} QID Albuterol Sulfate HFA 108 (90 Base) MCG/ACT Iron 325 (65 Fe) MG Iron 325 (65 Fe) MG No 1{table t} BID Iron 325 (65 Fe) MG Carafate 1 GM Carafate 1 GM No 1{table t_on_an _empty_ stomach } BID Carafate 1 GM Proctofoam HC 1-1 % Proctofoam HC 1-1 % No 1{appli cation_ to_affe cted_ar ea} TID Proctofoam HC 1-1 % Vyvanse 60 MG Vyvanse 60 MG No 1{capsu le_in_t he_morn ing} QD Vyvanse 60 MG Carafate 1 GM Carafate 1 GM No 1{table t_on_an _empty_ stomach } BID Carafate 1 GM Iron 325 (65 Fe) MG Iron 325 (65 Fe) MG No 1{table t} BID Iron 325 (65 Fe) MG Albuterol Sulfate HFA 108 (90 Base) MCG/ACT Albuterol Sulfate HFA 108 (90 Base) MCG/ACT No 2{puffs _as_nee ded} QID Albuterol Sulfate HFA 108 (90 Base) MCG/ACT Symbicort 80-4.5 MCG/ACT Symbicort 80-4.5 MCG/ACT No 2{puffs } QD Symbicort 80-4.5 MCG/ACT Chantix 1 MG Chantix 1 MG No 1{table t} BID Chantix 1 MG Pantoprazol e Sodium 40 MG Pantoprazol e Sodium 40 MG No 1{table t} QD Pantoprazo le Sodium 40 MG Toprol XL 25 MG Toprol XL 25 MG No 1{table t} QD Toprol XL 25 MG Chantix 1 MG Chantix 1 MG No 1{table t} BID Chantix 1 MG Albuterol Sulfate HFA 108 (90 Base) MCG/ACT Albuterol Sulfate HFA 108 (90 Base) MCG/ACT No 2{puffs _as_nee ded} QID Albuterol Sulfate HFA 108 (90 Base) MCG/ACT Chantix 1 MG Chantix 1 MG No 1{table t} BID Chantix 1 MG Pantoprazol e Sodium 40 MG Pantoprazol e Sodium 40 MG No 1{table t} QD Pantoprazo le Sodium 40 MG Albuterol Sulfate HFA 108 (90 Base) MCG/ACT Albuterol Sulfate HFA 108 (90 Base) MCG/ACT No 2{puffs _as_nee ded} QID Albuterol Sulfate HFA 108 (90 Base) MCG/ACT Proctofoam HC 1-1 % Proctofoam HC 1-1 % No 1{appli cation_ to_affe cted_ar ea} TID Proctofoam HC 1-1 % Iron 325 (65 Fe) MG Iron 325 (65 Fe) MG No 1{table t} BID Iron 325 (65 Fe) MG Toprol XL 25 MG Toprol XL 25 MG No 1{table t} QD Toprol XL 25 MG Symbicort 80-4.5 MCG/ACT Symbicort 80-4.5 MCG/ACT No 2{puffs } QD Symbicort 80-4.5 MCG/ACT Carafate 1 GM Carafate 1 GM No 1{table t_on_an _empty_ stomach } BID Carafate 1 GM Symbicort 80-4.5 MCG/ACT Symbicort 80-4.5 MCG/ACT No 2{puffs } QD Symbicort 80-4.5 MCG/ACT Iron 325 (65 Fe) MG Iron 325 (65 Fe) MG No 1{table t} BID Iron 325 (65 Fe) MG Proctofoam HC 1-1 % Proctofoam HC 1-1 % No 1{appli cation_ to_affe cted_ar ea} TID Proctofoam HC 1-1 % Chantix 1 MG Chantix 1 MG No 1{table t} BID Chantix 1 MG Albuterol Sulfate HFA 108 (90 Base) MCG/ACT Albuterol Sulfate HFA 108 (90 Base) MCG/ACT No 2{puffs _as_nee ded} QID Albuterol Sulfate HFA 108 (90 Base) MCG/ACT Pantoprazol e Sodium 40 MG Pantoprazol e Sodium 40 MG No 1{table t} QD Pantoprazo le Sodium 40 MG Toprol XL 25 MG Toprol XL 25 MG No 1{table t} QD Toprol XL 25 MG Carafate 1 GM Carafate 1 GM No 1{table t_on_an _empty_ stomach } BID Carafate 1 GM Symbicort 80-4.5 MCG/ACT Symbicort 80-4.5 MCG/ACT No 2{puffs } QD Symbicort 80-4.5 MCG/ACT Iron 325 (65 Fe) MG Iron 325 (65 Fe) MG No 1{table t} BID Iron 325 (65 Fe) MG Proctofoam HC 1-1 % Proctofoam HC 1-1 % No 1{appli cation_ to_affe cted_ar ea} TID Proctofoam HC 1-1 % Chantix 1 MG Chantix 1 MG No 1{table t} BID Chantix 1 MG Metoprolol Succinate ER 25 MG Metoprolol Succinate ER 25 MG No QD Metoprolol Succinate ER 25 MG Albuterol Sulfate HFA 108 (90 Base) MCG/ACT Albuterol Sulfate HFA 108 (90 Base) MCG/ACT No 2{puffs _as_nee ded} QID Albuterol Sulfate HFA 108 (90 Base) MCG/ACT Pantoprazol e Sodium 40 MG Pantoprazol e Sodium 40 MG No 1{table t} QD Pantoprazo le Sodium 40 MG Toprol XL 25 MG Toprol XL 25 MG No 1{table t} QD Toprol XL 25 MG Carafate 1 GM Carafate 1 GM No 1{table t_on_an _empty_ stomach } BID Carafate 1 GM Albuterol Sulfate HFA 108 (90 Base) MCG/ACT Albuterol Sulfate HFA 108 (90 Base) MCG/ACT No 2{puffs _as_nee ded} QID Albuterol Sulfate HFA 108 (90 Base) MCG/ACT Symbicort 80-4.5 MCG/ACT Symbicort 80-4.5 MCG/ACT No 2{puffs } QD Symbicort 80-4.5 MCG/ACT Iron 325 (65 Fe) MG Iron 325 (65 Fe) MG No 1{table t} BID Iron 325 (65 Fe) MG Proctofoam HC 1-1 % Proctofoam HC 1-1 % No 1{appli cation_ to_affe cted_ar ea} TID Proctofoam HC 1-1 % Chantix 1 MG Chantix 1 MG No 1{table t} BID Chantix 1 MG Metoprolol Succinate ER 25 MG Metoprolol Succinate ER 25 MG No QD Metoprolol Succinate ER 25 MG Toprol XL 25 MG Toprol XL 25 MG No 1{table t} QD Toprol XL 25 MG Pantoprazol e Sodium 40 MG Pantoprazol e Sodium 40 MG No 1{table t} QD Pantoprazo le Sodium 40 MG Carafate 1 GM Carafate 1 GM No 1{table t_on_an _empty_ stomach } BID Carafate 1 GM Pantoprazol e Sodium 40 MG Pantoprazol e Sodium 40 MG No 1{table t} QD Pantoprazo le Sodium 40 MG Proctofoam HC 1-1 % Proctofoam HC 1-1 % No 1{appli cation_ to_affe cted_ar ea} TID Proctofoam HC 1-1 % Metoprolol Succinate ER 25 MG Metoprolol Succinate ER 25 MG No QD Metoprolol Succinate ER 25 MG Toprol XL 25 MG Toprol XL 25 MG No 1{table t} QD Toprol XL 25 MG Chantix 1 MG Chantix 1 MG No 1{table t} BID Chantix 1 MG Pantoprazol e Sodium 40 MG Pantoprazol e Sodium 40 MG No 1{table t} QD Pantoprazo le Sodium 40 MG Proctofoam HC 1-1 % Proctofoam HC 1-1 % No 1{appli cation_ to_affe cted_ar ea} TID Proctofoam HC 1-1 % Metoprolol Succinate ER 25 MG Metoprolol Succinate ER 25 MG No QD Metoprolol Succinate ER 25 MG Toprol XL 25 MG Toprol XL 25 MG No 1{table t} QD Toprol XL 25 MG Chantix 1 MG Chantix 1 MG No 1{table t} BID Chantix 1 MG Pantoprazol e Sodium 40 MG Pantoprazol e Sodium 40 MG No 1{table t} QD Pantoprazo le Sodium 40 MG Proctofoam HC 1-1 % Proctofoam HC 1-1 % No 1{appli cation_ to_affe cted_ar ea} TID Proctofoam HC 1-1 % Metoprolol Succinate ER 25 MG Metoprolol Succinate ER 25 MG No QD Metoprolol Succinate ER 25 MG Toprol XL 25 MG Toprol XL 25 MG No 1{table t} QD Toprol XL 25 MG Chantix 1 MG Chantix 1 MG No 1{table t} BID Chantix 1 MG Toprol XL 25 MG Toprol XL 25 MG No 1{table t} QD Toprol XL 25 MG Proctofoam HC 1-1 % Proctofoam HC 1-1 % No 1{appli cation_ to_affe cted_ar ea} TID Proctofoam HC 1-1 % Chantix 1 MG Chantix 1 MG No 1{table t} BID Chantix 1 MG Metoprolol Succinate ER 25 MG Metoprolol Succinate ER 25 MG No QD Metoprolol Succinate ER 25 MG Pantoprazol e Sodium 40 MG Pantoprazol e Sodium 40 MG No 1{table t} QD Pantoprazo le Sodium 40 MG Toprol XL 25 MG Toprol XL 25 MG No 1{table t} QD Toprol XL 25 MG Proctofoam HC 1-1 % Proctofoam HC 1-1 % No 1{appli cation_ to_affe cted_ar ea} TID Proctofoam HC 1-1 % Chantix 1 MG Chantix 1 MG No 1{table t} BID Chantix 1 MG Metoprolol Succinate ER 25 MG Metoprolol Succinate ER 25 MG No QD Metoprolol Succinate ER 25 MG Pantoprazol e Sodium 40 MG Pantoprazol e Sodium 40 MG No 1{table t} QD Pantoprazo le Sodium 40 MG Toprol XL 25 MG Toprol XL 25 MG No 1{table t} QD Toprol XL 25 MG Proctofoam HC 1-1 % Proctofoam HC 1-1 % No 1{appli cation_ to_affe cted_ar ea} TID Proctofoam HC 1-1 % Chantix 1 MG Chantix 1 MG No 1{table t} BID Chantix 1 MG Metoprolol Succinate ER 25 MG Metoprolol Succinate ER 25 MG No QD Metoprolol Succinate ER 25 MG Pantoprazol e Sodium 40 MG Pantoprazol e Sodium 40 MG No 1{table t} QD Pantoprazo le Sodium 40 MG Toprol XL 25 MG Toprol XL 25 MG No 1{table t} QD Toprol XL 25 MG Proctofoam HC 1-1 % Proctofoam HC 1-1 % No 1{appli cation_ to_affe cted_ar ea} TID Proctofoam HC 1-1 % Chantix 1 MG Chantix 1 MG No 1{table t} BID Chantix 1 MG Metoprolol Succinate ER 25 MG Metoprolol Succinate ER 25 MG No QD Metoprolol Succinate ER 25 MG Pantoprazol e Sodium 40 MG Pantoprazol e Sodium 40 MG No 1{table t} QD Pantoprazo le Sodium 40 MG Toprol XL 25 MG Toprol XL 25 MG No 1{table t} QD Toprol XL 25 MG Proctofoam HC 1-1 % Proctofoam HC 1-1 % No 1{appli cation_ to_affe cted_ar ea} TID Proctofoam HC 1-1 % Chantix 1 MG Chantix 1 MG No 1{table t} BID Chantix 1 MG Metoprolol Succinate ER 25 MG Metoprolol Succinate ER 25 MG No QD Metoprolol Succinate ER 25 MG Pantoprazol e Sodium 40 MG Pantoprazol e Sodium 40 MG No 1{table t} QD Pantoprazo le Sodium 40 MG Toprol XL 25 MG Toprol XL 25 MG No 1{table t} QD Toprol XL 25 MG Proctofoam HC 1-1 % Proctofoam HC 1-1 % No 1{appli cation_ to_affe cted_ar ea} TID Proctofoam HC 1-1 % Chantix 1 MG Chantix 1 MG No 1{table t} BID Chantix 1 MG Metoprolol Succinate ER 25 MG Metoprolol Succinate ER 25 MG No QD Metoprolol Succinate ER 25 MG Pantoprazol e Sodium 40 MG Pantoprazol e Sodium 40 MG No 1{table t} QD Pantoprazo le Sodium 40 MG Toprol XL 25 MG Toprol XL 25 MG No 1{table t} QD Toprol XL 25 MG Proctofoam HC 1-1 % Proctofoam HC 1-1 % No 1{appli cation_ to_affe cted_ar ea} TID Proctofoam HC 1-1 % Chantix 1 MG Chantix 1 MG No 1{table t} BID Chantix 1 MG Metoprolol Succinate ER 25 MG Metoprolol Succinate ER 25 MG No QD Metoprolol Succinate ER 25 MG Pantoprazol e Sodium 40 MG Pantoprazol e Sodium 40 MG No 1{table t} QD Pantoprazo le Sodium 40 MG Toprol XL 25 MG Toprol XL 25 MG No 1{table t} QD Toprol XL 25 MG Proctofoam HC 1-1 % Proctofoam HC 1-1 % No 1{appli cation_ to_affe cted_ar ea} TID Proctofoam HC 1-1 % Chantix 1 MG Chantix 1 MG No 1{table t} BID Chantix 1 MG Metoprolol Succinate ER 25 MG Metoprolol Succinate ER 25 MG No QD Metoprolol Succinate ER 25 MG Pantoprazol e Sodium 40 MG Pantoprazol e Sodium 40 MG No 1{table t} QD Pantoprazo le Sodium 40 MG Toprol XL 25 MG Toprol XL 25 MG No 1{table t} QD Toprol XL 25 MG Proctofoam HC 1-1 % Proctofoam HC 1-1 % No 1{appli cation_ to_affe cted_ar ea} TID Proctofoam HC 1-1 % Chantix 1 MG Chantix 1 MG No 1{table t} BID Chantix 1 MG Metoprolol Succinate ER 25 MG Metoprolol Succinate ER 25 MG No QD Metoprolol Succinate ER 25 MG Pantoprazol e Sodium 40 MG Pantoprazol e Sodium 40 MG No 1{table t} QD Pantoprazo le Sodium 40 MG Toprol XL 25 MG Toprol XL 25 MG No 1{table t} QD Toprol XL 25 MG Proctofoam HC 1-1 % Proctofoam HC 1-1 % No 1{appli cation_ to_affe cted_ar ea} TID Proctofoam HC 1-1 % Chantix 1 MG Chantix 1 MG No 1{table t} BID Chantix 1 MG Metoprolol Succinate ER 25 MG Metoprolol Succinate ER 25 MG No QD Metoprolol Succinate ER 25 MG Pantoprazol e Sodium 40 MG Pantoprazol e Sodium 40 MG No 1{table t} QD Pantoprazo le Sodium 40 MG Toprol XL 25 MG Toprol XL 25 MG No 1{table t} QD Toprol XL 25 MG Proctofoam HC 1-1 % Proctofoam HC 1-1 % No 1{appli cation_ to_affe cted_ar ea} TID Proctofoam HC 1-1 % Chantix 1 MG Chantix 1 MG No 1{table t} BID Chantix 1 MG Metoprolol Succinate ER 25 MG Metoprolol Succinate ER 25 MG No QD Metoprolol Succinate ER 25 MG Pantoprazol e Sodium 40 MG Pantoprazol e Sodium 40 MG No 1{table t} QD Pantoprazo le Sodium 40 MG Proctofoam HC 1-1 % Proctofoam HC 1-1 % No 1{appli cation_ to_affe cted_ar ea} TID Proctofoam HC 1-1 % Chantix 1 MG Chantix 1 MG No 1{table t} BID Chantix 1 MG Toprol XL 25 MG Toprol XL 25 MG No 1{table t} QD Toprol XL 25 MG Metoprolol Succinate ER 25 MG Metoprolol Succinate ER 25 MG No QD Metoprolol Succinate ER 25 MG Pantoprazol e Sodium 40 MG Pantoprazol e Sodium 40 MG No 1{table t} QD Pantoprazo le Sodium 40 MG Pantoprazol e Sodium 40 MG Pantoprazol e Sodium 40 MG No 1{table t} QD Pantoprazo le Sodium 40 MG Chantix 1 MG Chantix 1 MG No 1{table t} BID Chantix 1 MG Metoprolol Succinate ER 25 MG Metoprolol Succinate ER 25 MG No QD Metoprolol Succinate ER 25 MG Toprol XL 25 MG Toprol XL 25 MG No 1{table t} QD Toprol XL 25 MG Proctofoam HC 1-1 % Proctofoam HC 1-1 % No 1{appli cation_ to_affe cted_ar ea} TID Proctofoam HC 1-1 % Pantoprazol e Sodium 40 MG Pantoprazol e Sodium 40 MG No 1{table t} QD Pantoprazo le Sodium 40 MG Toprol XL 25 MG Toprol XL 25 MG No 1{table t} QD Toprol XL 25 MG Chantix 1 MG Chantix 1 MG No 1{table t} BID Chantix 1 MG Metoprolol Succinate ER 25 MG Metoprolol Succinate ER 25 MG No QD Metoprolol Succinate ER 25 MG Proctofoam HC 1-1 % Proctofoam HC 1-1 % No 1{appli cation_ to_affe cted_ar ea} TID Proctofoam HC 1-1 % Pantoprazol e Sodium 40 MG Pantoprazol e Sodium 40 MG No 1{table t} QD Pantoprazo le Sodium 40 MG Toprol XL 25 MG Toprol XL 25 MG No 1{table t} QD Toprol XL 25 MG Chantix 1 MG Chantix 1 MG No 1{table t} BID Chantix 1 MG Metoprolol Succinate ER 25 MG Metoprolol Succinate ER 25 MG No QD Metoprolol Succinate ER 25 MG Proctofoam HC 1-1 % Proctofoam HC 1-1 % No 1{appli cation_ to_affe cted_ar ea} TID Proctofoam HC 1-1 % Immunizations Ordered Immunization Name Filled Immunization Name Date Status Comments Source TD Pres-Free 2023-10-18 00:00:[address] [facility] TD Pres-Free 2023-10-18 00:00:[address] [facility] TD Pres-Free 2023-10-18 00:00:[address] [facility] Influenza High Dose 2022-02-11 00:00:[address] [facility] Influenza High Dose 2022-02-11 00:00:[address] [facility] Influenza High Dose 2022-02-11 00:00:[address] [facility] Influenza High Dose 2022-02-11 00:00:[address] [facility] Influenza High Dose 2022-02-11 00:00:[address] [facility] Influenza High Dose 2022-02-11 00:00:[address] [facility] Influenza, High-Dose, Trivalent, PF (FLUZONE) 2022-02-11 00:00:[address] [facility] Influenza, High-Dose, Trivalent, PF (FLUZONE) 2022-02-11 00:00:[address] [facility] Influenza, High-Dose, Trivalent, PF (FLUZONE) 2022-02-11 00:00:[address] [facility] HPV9 2021-08-14 00:00:[address] [facility] HPV9 2021-08-14 00:00:[address] [facility] HPV9 2021-08-14 00:00:[address] [facility] HPV9 2021-08-14 00:00:[address] [facility] HPV9 2021-08-14 00:00:[address] [facility] HPV9 2021-08-14 00:00:[address] [facility] HPV9 2021-08-14 00:00:[address] [facility] HPV9 2021-08-14 00:00:[address] [facility] HPV9 2021-08-14 00:00:[address] [facility] HPV9 2021-08-14 00:00:[address] [facility] HPV9 2021-08-14 00:00:[address] [facility] HPV9 2021-08-14 00:00:[address] [facility] HPV9 2021-08-14 00:00:00 Completed HPV9 2021-08-14 00:00:00 Completed HPV9 2021-08-14 00:00:00 Completed HPV9 2021-07-13 00:00:[address] [facility] HPV9 2021-07-13 00:00:[address] [facility] HPV9 2021-07-13 00:00:[address] [facility] HPV9 2021-07-13 00:00:[address] [facility] HPV9 2021-07-13 00:00:[address] [facility] HPV9 2021-07-13 00:00:[address] [facility] HPV9 2021-07-13 00:00:[address] [facility] HPV9 2021-07-13 00:00:[address] [facility] HPV9 2021-07-13 00:00:[address] [facility] HPV9 2021-07-13 00:00:[address] [facility] HPV9 2021-07-13 00:00:[address] [facility] HPV9 2021-07-13 00:00:[address] [facility] HPV9 2021-07-13 00:00:[address] [facility] HPV9 2021-07-13 00:00:[address] [facility] HPV9 2021-07-13 00:00:[address] [facility] Influenza Virus Vaccine Quad IM, Preserv and ABX Free 6 MO-64 YRS 2021-03-07 00:00:[address] [facility] Influenza Virus Vaccine Quad IM, Preserv and ABX Free 6 MO-64 YRS 2021-03-07 00:00:[address] [facility] Influenza Virus Vaccine Quad IM, Preserv and ABX Free 6 MO-64 YRS 2021-03-07 00:00:[address] [facility] Influenza Virus Vaccine Quad IM, Preserv and ABX Free 6 MO-64 YRS 2021-03-07 00:00:[address] [facility] Influenza Virus Vaccine Quad IM, Preserv and ABX Free 6 MO-64 YRS 2021-03-07 00:00:[address] [facility] Influenza Virus Vaccine Quad IM, Preserv and ABX Free 6 MO-64 YRS 2021-03-07 00:00:[address] [facility] Influenza Virus Vaccine Quad IM, Preserv and ABX Free 6 MO-64 YRS 2021-03-07 00:00:[address] [facility] Influenza Virus Vaccine Quad IM, Preserv and ABX Free 6 MO-64 YRS 2021-03-07 00:00:[address] [facility] Influenza Virus Vaccine Quad IM, Preserv and ABX Free 6 MO-64 YRS 2021-03-07 00:00:[address] [facility] Influenza Virus Vaccine Quad IM, Preserv and ABX Free 6 MO-64 YRS 2021-03-07 00:00:[address] [facility] Influenza Virus Vaccine Quad IM, Preserv and ABX Free 6 MO-64 YRS 2021-03-07 00:00:[address] [facility] Influenza Virus Vaccine Quad IM, Preserv and ABX Free 6 MO-64 YRS 2021-03-07 00:00:[address] [facility] Influenza Virus Vaccine Quad IM, Preserv and ABX Free 6 MO-64 YRS (FLUCELVAX) 2021-03-07 00:00:[address] [facility] Influenza Virus Vaccine Quad IM, Preserv and ABX Free 6 MO-64 YRS (FLUCELVAX) 2021-03-07 00:00:[address] [facility] Influenza Virus Vaccine Quad IM, Preserv and ABX Free 6 MO-64 YRS (FLUCELVAX) 2021-03-07 00:00:[address] [facility] Vitamin B12 (Cyanocobalamin) Vitamin B12 (Cyanocobalamin) 2020-01-18 16:50:00 Completed [facility] Solumedrol 125mg/2ml Solumedrol 125mg/2ml 2019-12-07 14:03:[facility] 2018-12-24 10:23:00 [facility] 2018-12-24 10:23:00 [facility] 2018-12-24 10:23:00 Completed [facility] Afluria Afluria 2018-12-24 10:23:00 Completed [facility] Afluria Afluria 2018-12-24 10[facility]23:[facility]:23:00 Com[facility] Afluria Afluria 2018-12-24 10:23:00 Completed [facility] Afluria Afluria 2018-12-24 00:00:00 Completed [facility] Kenalog (Triamcinolone) Kenalog (Triamcinolone) 2018-08-14 09:05:00 Completed [facility] Influenza Virus Vaccine Quad ID 18-64 YRS 2017-01-18 00:00:[address] [facility] Influenza Virus Vaccine Quad ID 18-64 YRS 2017-01-18 00:00:[address] [facility] Influenza Virus Vaccine Quad ID 18-64 YRS 2017-01-18 00:00:[address] [facility] Influenza Virus Vaccine Quad ID 18-64 YRS 2017-01-18 00:00:[address] [facility] Influenza Virus Vaccine Quad ID 18-64 YRS 2017-01-18 00:00:[address] [facility] Influenza Virus Vaccine Quad ID 18-64 YRS 2017-01-18 00:00:[address] [facility] Influenza Virus Vaccine Quad ID 18-64 YRS 2017-01-18 00:00:[address] [facility] Influenza Virus Vaccine Quad ID 18-64 YRS 2017-01-18 00:00:[address] [facility] Influenza Virus Vaccine Quad ID 18-64 YRS 2017-01-18 00:00:[address] [facility] Influenza Virus Vaccine Quad ID 18-64 YRS 2017-01-18 00:00:[address] [facility] Influenza Virus Vaccine Quad ID 18-64 YRS 2017-01-18 00:00:[address] [facility] Influenza Virus Vaccine Quad ID 18-64 YRS 2017-01-18 00:00:[address] [facility] Influenza Virus Vaccine Quad ID 18-64 YRS 2017-01-18 00:00:[address] [facility] Influenza Virus Vaccine Quad ID 18-64 YRS 2017-01-18 00:00:[address] [facility] Influenza Virus Vaccine Quad ID 18-64 YRS 2017-01-18 00:00:[address] [facility] Influenza Virus Vaccine Quad IM 3+ YRS 2016-08-21 00:00:[address] [facility] Influenza Virus Vaccine Quad IM 3+ YRS 2016-08-21 00:00:[address] [facility] Influenza Virus Vaccine Quad IM 3+ YRS 2016-08-21 00:00:[address] [facility] Influenza Virus Vaccine Quad IM 3+ YRS 2016-08-21 00:00:[address] [facility] Influenza Virus Vaccine Quad IM 3+ YRS 2016-08-21 00:00:[address] [facility] Influenza Virus Vaccine Quad IM 3+ YRS 2016-08-21 00:00:[address] [facility] Influenza Virus Vaccine Quad IM 3+ YRS 2016-08-21 00:00:[address] [facility] Influenza Virus Vaccine Quad IM 3+ YRS 2016-08-21 00:00:[address] [facility] Influenza Virus Vaccine Quad IM 3+ YRS 2016-08-21 00:00:[address] [facility] Influenza Virus Vaccine Quad IM 3+ YRS 2016-08-21 00:00:[address] [facility] Influenza Virus Vaccine Quad IM 3+ YRS 2016-08-21 00:00:[address] [facility] Influenza Virus Vaccine Quad IM 3+ YRS 2016-08-21 00:00:[address] [facility] Influenza Virus Vaccine Quad IM 3+ YRS 2016-08-21 00:00:[address] [facility] Influenza Virus Vaccine Quad IM 3+ YRS 2016-08-21 00:00:[address] [facility] Influenza Virus Vaccine Quad IM 3+ YRS 2016-08-21 00:00:[address] [facility] Influenza Virus Vaccine 2016-08-20 00:00:[address] [facility] Influenza Virus Vaccine 2016-08-20 00:00:[address] [facility] Influenza Virus Vaccine 2016-08-20 00:00:[address] [facility] Influenza Virus Vaccine 2016-08-20 00:00:[address] [facility] Influenza Virus Vaccine 2016-08-20 00:00:[address] [facility] Influenza Virus Vaccine 2016-08-20 00:00:[address] [facility] Influenza Virus Vaccine 2016-08-20 00:00:[address] [facility] Influenza Virus Vaccine 2016-08-20 00:00:[address] [facility] Influenza Virus Vaccine 2016-08-20 00:00:[address] [facility] Influenza Virus Vaccine 2016-08-20 00:00:[address] [facility] Influenza Virus Vaccine 2016-08-20 00:00:[address] [facility] Influenza Virus Vaccine 2016-08-20 00:00:[address] [facility] Influenza Virus Vaccine 2016-08-20 00:00:00 Completed Influenza Virus Vaccine 2016-08-20 00:00:00 Completed Influenza Virus Vaccine 2016-08-20 00:00:00 Completed Influenza Virus Vaccine Quad IM 3+ YRS Unknown [address]pleted [facility] Influenza Virus Vaccine Quad ID 18-[address] [facility] Influenza Virus Vaccine Unknown Completed [facility] Influenza Virus Vaccine Quad IM, Preserv and ABX Free 6 MO-64 YRS (FLUCELVAX) Unknown Completed [facility] Influenza Virus Vaccine Quad IM 3+ YRS Unknown Completed [facility] Influenza Virus Vaccine Quad ID 18-[address] [facility] Influenza Virus Vaccine Unknown Completed [facility] Influenza Virus Vaccine Quad IM, Preserv and ABX Free 6 MO-64 YRS (FLUCELVAX) Unknown Completed [facility] HPV9 [address] [facility] Influenza High Dose Unknown Completed [facility] Influenza Virus Vaccine Quad IM 3+ YRS [address]pleted [facility] Influenza Virus Vaccine Quad ID 18-[address] [facility] Influenza Virus Vaccine Unknown Completed [facility] Influenza Virus Vaccine Quad IM, Preserv and ABX Free 6 MO-64 YRS (FLUCELVAX) Unknown Completed [facility] Influenza High Dose Unknown Completed [facility] HPV9 [address] [facility] Influenza Virus Vaccine Quad IM 3+ YRS Unknown Completed [facility] Influenza Virus Vaccine Quad ID 18-[address] [facility] Influenza Virus Vaccine Unknown Completed [facility] Influenza Virus Vaccine Quad IM, Preserv and ABX Free 6 MO-64 YRS (FLUCELVAX) Unknown Completed [facility] HPV9 [address] [facility] Influenza High Dose Unknown Completed [facility] Influenza Virus Vaccine Quad IM 3+ YRS Unknown Completed [facility] Influenza Virus Vaccine Quad ID 18-[address] [facility] Influenza Virus Vaccine Unknown Completed [facility] Influenza Virus Vaccine Quad IM, Preserv and ABX Free 6 MO-64 YRS (FLUCELVAX) Unknown Completed [facility] HPV9 [address] Com[address] [facility] Influenza High Dose Unknown Completed [facility] Influenza Virus Vaccine Quad IM 3+ YRS Unknown Completed [facility] Influenza Virus Vaccine Quad ID 18-[address] [facility] Influenza Virus Vaccine Unknown Completed [facility] Influenza Virus Vaccine Quad IM, Preserv and ABX Free 6 MO-64 YRS (FLUCELVAX) Unknown Completed [facility] HPV9 [address] Com[address] [facility] Influenza High Dose Unknown Completed [facility] Influenza Virus Vaccine Quad IM 3+ YRS Unknown Completed [facility] Influenza Virus Vaccine Quad ID 18-[address] [facility] Influenza Virus Vaccine Unknown Completed [facility] Influenza Virus Vaccine Quad IM, Preserv and ABX Free 6 MO-64 YRS (FLUCELVAX) Unknown Completed [facility] HPV9 [address] [facility] Influenza High Dose Unknown Completed [facility] Influenza Virus Vaccine Quad IM 3+ YRS Unknown Completed [facility] Influenza Virus Vaccine Quad ID 18-[address] [facility] Influenza Virus Vaccine Unknown Completed [facility] Influenza Virus Vaccine Quad IM, Preserv and ABX Free 6 MO-64 YRS (FLUCELVAX) Unknown Completed [facility] HPV9 [address] [facility] Influenza High Dose Unknown Completed [facility] Influenza Virus Vaccine Quad IM 3+ YRS Unknown Completed [facility] Influenza Virus Vaccine Quad ID 18-[address] [facility] Influenza Virus Vaccine Unknown Completed [facility] Influenza Virus Vaccine Quad IM, Preserv and ABX Free 6 MO-64 YRS (FLUCELVAX) Unknown Completed [facility] HPV9 [address] [facility] Influenza High Dose Unknown Completed [facility] Influenza Virus Vaccine Quad IM 3+ YRS Unknown Completed [facility] Influenza Virus Vaccine Quad ID 18-[address] [facility] Influenza Virus Vaccine Unknown Completed [facility] Influenza Virus Vaccine Quad IM, Preserv and ABX Free 6 MO-64 YRS (FLUCELVAX) Unknown Completed [facility] HPV9 [address] [facility] Influenza High Dose Unknown Completed [facility] TD Pres-Free Unknown [facility] Influenza Virus Vaccine Quad IM 3+ YRS Unknown Completed [facility] Influenza Virus Vaccine Quad ID 18-[address] [facility] Influenza Virus Vaccine Unknown Completed [facility] Influenza Virus Vaccine Quad IM, Preserv and ABX Free 6 MO-64 YRS (FLUCELVAX) Unknown Completed [facility] HPV9 [address] [facility] Influenza High Dose Unknown Completed [facility] TD Pres-Free Unknown [facility] Vaccine Quad IM 3+ YRS Unknown Completed [facility] Influenza Virus Vaccine Quad ID 18-[address] [facility] Influenza Virus Vaccine Unknown Completed [facility] Influenza Virus Vaccine Quad IM, Preserv and ABX Free 6 MO-64 YRS (FLUCELVAX) Unknown Completed [facility] HPV9 [address] [facility] Influenza High Dose Unknown Completed [facility] TD Pres-Free Unknown Completed [facility] Influenza Virus Vaccine Quad IM 3+ YRS Unknown Completed [facility] Influenza Virus Vaccine Quad ID 18-[address] [facility] Influenza Virus Vaccine Unknown Completed [facility] Influenza Virus Vaccine Quad IM, Preserv and ABX Free 6 MO-64 YRS (FLUCELVAX) Unknown Completed [facility] HPV9 [address] Com[address] [facility] Influenza High Dose Unknown Completed [facility] TD Pres-Free Unknown Completed [facility] Influenza Virus Vaccine Quad IM 3+ YRS Unknown Completed [facility] Influenza Virus Vaccine Quad ID 18-[address] [facility] Influenza Virus Vaccine Unknown Completed [facility] Influenza Virus Vaccine Quad IM, Preserv and ABX Free 6 MO-64 YRS (FLUCELVAX) Unknown Completed [facility] HPV9 [address] Com[address] [facility] Influenza High Dose Unknown Completed [facility] TD Pres-Free Unknown Completed [facility] Influenza Virus Vaccine Quad IM 3+ YRS Unknown Completed [facility] Influenza Virus Vaccine Quad ID 18-[address] [facility] Influenza Virus Vaccine Unknown Completed [facility] Influenza Virus Vaccine Quad IM, Preserv and ABX Free 6 MO-64 YRS (FLUCELVAX) Unknown Completed [facility] HPV9 [address] [facility] Influenza High Dose Unknown Completed [facility] TD Pres-Free Unknown Completed [facility] Influenza Virus Vaccine Quad IM 3+ YRS Unknown Completed [facility] Influenza Virus Vaccine Quad ID 18-[address] [facility] Influenza Virus Vaccine Unknown Completed [facility] Influenza Virus Vaccine Quad IM, Preserv and ABX Free 6 MO-64 YRS (FLUCELVAX) Unknown Completed [facility] HPV9 [address] [facility] Influenza High Dose Unknown Completed [facility] TD Pres-Free Unknown [facility] Vaccine Quad IM 3+ YRS Unknown Completed [facility] Influenza Virus Vaccine Quad ID 18-[address] [facility] Influenza Virus Vaccine Unknown Completed [facility] Influenza Virus Vaccine Quad IM, Preserv and ABX Free 6 MO-64 YRS (FLUCELVAX) Unknown Completed [facility] HPV9 [address] [facility] Influenza High Dose Unknown Completed [facility] TD Pres-Free Unknown Completed [facility] Influenza Virus Vaccine Quad IM 3+ YRS Unknown Completed [facility] Influenza Virus Vaccine Quad ID 18-[address] [facility] Influenza Virus Vaccine Unknown Completed [facility] Influenza Virus Vaccine Quad IM, Preserv and ABX Free 6 MO-64 YRS (FLUCELVAX) Unknown Completed [facility] HPV9 [address] [facility] Influenza High Dose Unknown Completed [facility] TD Pres-Free Unknown Completed [facility] Influenza Virus Vaccine Quad IM 3+ YRS Unknown Completed [facility] Influenza Virus Vaccine Quad ID 18-[address] [facility] Influenza Virus Vaccine Unknown Completed [facility] Influenza Virus Vaccine Quad IM, Preserv and ABX Free 6 MO-64 YRS (FLUCELVAX) Unknown Completed [facility] HPV9 [address] [facility] Influenza High Dose Unknown Completed [facility] TD Pres-Free Unknown Completed [facility] Influenza Virus Vaccine Quad IM 3+ YRS Unknown Completed [facility] Influenza Virus Vaccine Quad ID 18-[address] [facility] Influenza Virus Vaccine Unknown Completed [facility] Influenza Virus Vaccine Quad IM, Preserv and ABX Free 6 MO-64 YRS (FLUCELVAX) Unknown Completed [facility] HPV9 [address] [facility] Influenza High Dose Unknown Completed [facility] TD Pres-Free Unknown Completed [facility] Influenza Virus Vaccine Quad IM 3+ YRS Unknown Completed [facility] Influenza Virus Vaccine Quad ID 18-[address] [facility] Influenza Virus Vaccine Unknown Completed [facility] Influenza Virus Vaccine Quad IM, Preserv and ABX Free 6 MO-64 YRS (FLUCELVAX) Unknown Completed [facility] HPV9 [address] [facility] Influenza High Dose Unknown Completed [facility] TD Pres-Free Unknown Completed [facility] Influenza Virus Vaccine Quad IM 3+ YRS Unknown Completed [facility] Influenza Virus Vaccine Quad ID 18-[address] [facility] Influenza Virus Vaccine Unknown Completed [facility] Influenza Virus Vaccine Quad IM, Preserv and ABX Free 6 MO-64 YRS (FLUCELVAX) Unknown Completed [facility] HPV9 [address] [facility] Influenza High Dose Unknown Completed [facility] TD Pres-Free Unknown Completed [facility] Influenza Virus Vaccine Quad IM 3+ YRS Unknown Completed [facility] Influenza Virus Vaccine Quad ID 18-[address] [facility] Influenza Virus Vaccine Unknown Completed [facility] Influenza Virus Vaccine Quad IM, Preserv and ABX Free 6 MO-64 YRS (FLUCELVAX) Unknown Completed [facility] HPV[address] [facility] Influenza, High-Dose, Trivalent, PF (FLUZONE) Unknown Completed [facility] TD Pres-Free Unknown Completed [facility] Afluria Afluria Unknown Completed [facility] - [facility] Afluria Afluria Unknown Completed [facility] Afluria Afluria Unknown [facility] Afluria Afluria Unknown Completed [facility] Afluria Afluria Unknown Com[facility] Afluria Afluria Unknown [facility] Afluria Afluria Unknown Completed [facility] rit - [facility] Afluria Afluria Unknown Completed [facility] rit - [facility] Afluria [facility]fluria Unknown Completed [facility] rit - [facility] Afluria [facility]fluria Unknown Completed [facility] rit - [facility] Afluria [facility]fluria Unknown Completed [facility] rit - [facility] Afluria Afluria Unknown Completed [facility] rit - [facility] Afluria Afluria Unknown [facility] Afluria Afluria Unknown Completed [facility] rit - [facility] Afluria Afluria Unknown Completed [facility] rit - [facility] Afluria Afluria Unknown Completed [facility] rit - [facility] Afluria Afluria Unknown Completed [facility] rit - [facility] Afluria Afluria Unknown Completed [facility] rit - [facility] Vital Signs Vital Name Observation Time Observation Value Comments S ource Systolic blood pressure 2024-02-05 18:15:00 124 mm[Hg] [facility] Diastolic blood pressure 2024-02-05 18:15:00 85 mm[Hg] [facility] Heart rate 2024-02-05 18:15:00 93 /min [facility] Body height 2024-02-05 18:15:00 170.2 cm [facility] Body weight 2024-02-05 18:15:00 56.745 kg [facility] BMI 2024-02-05 18:15:00 19.59 kg/m2 [facility] Systolic blood pressure 2024 21:08:00 114 mm[Hg] [facility] Diastolic blood pressure 2024 21:08:00 85 mm[Hg] [facility] Heart rate 2024 21:08:00 98 /min [facility] Body temperature 2024 21:08:[address] [facility] Respiratory rate 2024 21:08:00 18 /min [facility] Oxygen saturation in Arterial blood by Pulse oximetry 2024 21:08:00 100 /min [facility] Body height 2024 19:22:00 170.2 cm [facility] Body weight 2024 19:22:00 54.432 kg [facility] BMI 2024 19:22:00 18.79 [facility] height 2024-01-23 16:10:00 170.2 cm [facility] Body weight 2024-01-23 16:10:00 54.84 kg [facility] BMI 2024-01-23 16:10:00 18.94 kg/m2 [facility] Body height 2024-01-03 15:39:00 170.2 cm [facility] Body weight 2024-01-03 15:39:00 55.974 kg [facility] BMI 2024-01-03 15:39:00 19.33 kg/m2 [facility] Body weight 2023-12-28 01:00:00 54.432 kg [facility] BMI 2023-12-28 01:00:00 18.79 kg/m2 [facility] Systolic blood pressure 2023-12-27 23:55:00 113 mm[Hg] [facility] Diastolic blood pressure 2023-12-27 23:55:00 80 mm[Hg] [facility] Heart rate 2023-12-27 23:55:00 92 /min [facility] Respiratory rate 2023-12-27 23:55:00 18 /min [facility] Oxygen saturation in Arterial blood by Pulse oximetry 2023-12-27 23:55:00 100 /min [facility] Body temperature 2023-12-27 20:34:[address] [facility] Systolic blood pressure 2023-12-16 11:22:00 109 mm[Hg] [facility] Diastolic blood pressure 2023-12-16 11:22:00 77 mm[Hg] [facility] Heart rate 2023-12-16 11:22:00 110 /min [facility] Body temperature 2023-12-16 11:22:[address] [facility] Respiratory rate 2023-12-16 11:22:00 20 /min [facility] Body height 2023-12-16 11:22:00 170.2 cm [facility] Body weight 2023-12-16 11:22:00 54.432 kg [facility] BMI 2023-12-16 11:22:00 18.79 kg/m2 [facility] Oxygen saturation in Arterial blood by Pulse oximetry 2023-12-16 11:22:00 100 /min [facility] Systolic blood pressure 2023-12-08 22:00:00 122 mm[Hg] [facility] Diastolic blood pressure 2023-12-08 22:00:00 80 mm[Hg] [facility] Heart rate 2023-12-08 22:00:00 130 /min [facility] Body temperature 2023-12-08 22:00:[address] [facility] Respiratory rate 2023-12-08 22:00:00 18 /min [facility] Oxygen saturation in Arterial blood by Pulse oximetry 2023-12-08 22:00:00 100 /min [facility] Body height 2023-12-08 19:10:00 170.2 cm [facility] Body weight 2023-12-08 19:10:00 53.071 kg [facility] BMI 2023-12-08 19:10:00 18.32 kg/m2 [facility] Systolic blood pressure 2023-12-06 10:00:00 112 mm[Hg] [facility] Diastolic blood pressure 2023-12-06 10:00:00 78 mm[Hg] [facility] Heart rate 2023-12-06 09:21:07 116 /min [facility] Respiratory rate 2023-12-06 09:21:07 20 /min [facility] Oxygen saturation in Arterial blood by Pulse oximetry 2023-12-06 09:21:07 100 /min [facility] Body temperature 2023-12-06 01:47:[address] [facility] Body height 2023-12-06 01:47:00 170.2 cm [facility] Body weight 2023-12-06 01:47:00 53.071 kg [facility] BMI 2023-12-06 01:47:00 18.32 kg/m2 [facility] Systolic blood pressure 2023-12-05 05:00:00 114 mm[Hg] [facility] Diastolic blood pressure 2023-12-05 05:00:00 83 mm[Hg] [facility] Heart rate 2023-12-05 05:00:00 116 /min [facility] Respiratory rate 2023-12-05 05:00:00 20 /min [facility] Oxygen saturation in Arterial blood by Pulse oximetry 2023-12-05 05:00:00 96 /min [facility] Body temperature 2023-12-05 02:52:[address] [facility] Body height 2023-12-05 02:52:00 170.2 cm [facility] Body weight 2023-12-05 02:52:00 53.116 kg [facility] BMI 2023-12-05 02:52:00 18.34 kg/m2 [facility] Systolic blood pressure 2023-11-22 21:46:12 99 mm[Hg] [facility] Diastolic blood pressure 2023-11-22 21:46:12 57 mm[Hg] [facility] Heart rate 2023-11-22 21:46:12 99 /min [facility] Body temperature 2023-11-22 21:46:[address] [facility] Respiratory rate 2023-11-22 21:46:12 16 /min [facility] Oxygen saturation in Arterial blood by Pulse oximetry 2023-11-22 21:46:12 97 /min [facility] Body height 2023-11-22 17:01:00 170.2 cm [facility] Body weight 2023-11-22 17:01:00 53.071 kg [facility] BMI 2023-11-22 17:01:00 18.32 kg/m2 [facility] Systolic blood pressure 2023-11-10 06:38:05 124 mm[Hg] [facility] Diastolic blood pressure 2023-11-10 06:38:05 99 mm[Hg] [facility] Heart rate 2023-11-10 06:38:05 99 /min [facility] Body temperature 2023-11-10 06:38:[address] [facility] Respiratory rate 2023-11-10 06:38:05 16 /min [facility] Oxygen saturation in Arterial blood by Pulse oximetry 2023-11-10 06:38:05 99 /min [facility] Body height 2023-11-10 03:34:00 170.2 cm [facility] Body weight 2023-11-10 03:34:00 47.628 kg [facility] BMI 2023-11-10 03:34:00 16.45 kg/m2 [facility] Systolic blood pressure 2023-11-09 12:26:00 119 mm[Hg] [facility] Diastolic blood pressure 2023-11-09 12:26:00 84 mm[Hg] [facility] Heart rate 2023-11-09 12:26:00 103 /min [facility] Body temperature 2023-11-09 12:26:[address] [facility] Respiratory rate 2023-11-09 12:26:00 20 /min [facility] Oxygen saturation in Arterial blood by Pulse oximetry 2023-11-09 12:26:00 100 /min [facility] Body weight 2023-11-09 08:29:00 53.479 kg [facility] BMI 2023-11-09 08:29:00 18.47 kg/m2 [facility] Body height 2023-11-06 21:32:00 170.2 cm [facility] Systolic blood pressure 2023-10-28 17:30:00 104 mm[Hg] [facility] Diastolic blood pressure 2023-10-28 17:30:00 78 mm[Hg] [facility] Heart rate 2023-10-28 17:30:00 112 /min [facility] Body temperature 2023-10-28 17:30:[address] [facility] Respiratory rate 2023-10-28 17:30:00 20 /min [facility] Oxygen saturation in Arterial blood by Pulse oximetry 2023-10-28 17:30:00 99 /min [facility] Body height 2023-10-28 03:09:00 170.2 cm [facility] Body weight 2023-10-28 03:09:00 52.164 kg [facility] BMI 2023-10-28 03:09:00 18.01 kg/m2 [facility] Systolic blood pressure 2023-10-19 16:14:00 120 mm[Hg] [facility] Diastolic blood pressure 2023-10-19 16:14:00 87 mm[Hg] [facility] Heart rate 2023-10-19 16:14:00 98 /min [facility] Body temperature 2023-10-19 16:14:[address] [facility] Respiratory rate 2023-10-19 16:14:00 18 /min [facility] Oxygen saturation in Arterial blood by Pulse oximetry 2023-10-19 16:14:00 98 /min [facility] Body height 2023-10-19 15:44:00 170.2 cm [facility] Body weight 2023-10-19 15:44:00 52.164 kg [facility] BMI 2023-10-19 15:44:00 18.01 kg/m2 [facility] Systolic blood pressure 2023-10-19 00:36:06 120 mm[Hg] [facility] Diastolic blood pressure 2023-10-19 00:36:06 89 mm[Hg] [facility] Heart rate 2023-10-19 00:36:06 129 /min [facility] Respiratory rate 2023-10-19 00:36:06 15 /min [facility] Oxygen saturation in Arterial blood by Pulse oximetry 2023-10-19 00:36:06 96 /min [facility] Body temperature 2023-10-19 00:32:[address] [facility] Body height 2023-10-19 00:32:00 170.2 cm [facility] Body weight 2023-10-19 00:32:00 52.164 kg [facility] BMI 2023-10-19 00:32:00 18.01 kg/m2 [facility] Systolic blood pressure 2023-09-21 16:40:00 125 mm[Hg] [facility] Diastolic blood pressure 2023-09-21 16:40:00 89 mm[Hg] [facility] Heart rate 2023-09-21 16:40:00 92 /min [facility] Body temperature 2023-09-21 16:40:[address] [facility] Respiratory rate 2023-09-21 16:40:00 19 /min [facility] Oxygen saturation in Arterial blood by Pulse oximetry 2023-09-21 16:40:00 98 /min [facility] Body weight 2023-09-21 07:35:00 52.98 kg [facility] BMI 2023-09-21 07:35:00 18.29 kg/m2 [facility] Body height 2023-09-19 16:50:00 170.2 cm [facility] Systolic blood pressure 2023-09-15 18:00:00 136 mm[Hg] [facility] Diastolic blood pressure 2023-09-15 18:00:00 95 mm[Hg] [facility] Heart rate 2023-09-15 18:00:00 94 /min [facility] Body temperature 2023-09-15 18:00:[address] [facility] Respiratory rate 2023-09-15 18:00:00 10 /min [facility] Oxygen saturation in Arterial blood by Pulse oximetry 2023-09-15 18:00:00 97 /min [facility] Body height 2023-09-15 16:25:00 170.2 cm [facility] Body weight 2023-09-15 16:25:00 53.524 kg [facility] BMI 2023-09-15 16:25:00 18.48 kg/m2 [facility] Systolic blood pressure 2023-09-14 00:00:00 120 mm[Hg] [facility] Diastolic blood pressure 2023-09-14 00:00:00 90 mm[Hg] [facility] Heart rate 2023-09-14 00:00:00 115 /min [facility] Body temperature 2023-09-14 00:00:[address] [facility] Oxygen saturation in Arterial blood by Pulse oximetry 2023-09-14 00:00:00 98 /min [facility] Respiratory rate 2023-09-13 23:03:00 16 /min [facility] Body height 2023-09-13 23:03:00 170.2 cm [facility] Body weight 2023-09-13 23:03:00 53.524 kg [facility] BMI 2023-09-13 23:03:00 18.48 kg/m2 [facility] height 2023-06-11 10:30:00 67 [in_i] [facility] [facility] weight 2023-06-11 10:30:00 110 [lb_av] Comm on [facility] bmi 2023-06-11 10:30:00 17.23 kg/m2 Comm on [facility] Systolic blood pressure 2023-04-30 20:12:00 129 mm[Hg] [facility] Diastolic blood pressure 2023-04-30 20:12:00 87 mm[Hg] [facility] Heart rate 2023-04-30 20:12:00 118 /min [facility] Body temperature 2023-04-30 20:12:[address] [facility] Respiratory rate 2023-04-30 20:12:00 14 /min [facility] Body weight 2023-04-30 20:12:00 48.988 kg [facility] BMI 2023-04-30 20:12:00 16.92 kg/m2 [facility] Oxygen saturation in Arterial blood by Pulse oximetry 2023-04-30 20:12:00 100 /min [facility] Systolic blood pressure 2023-04-27 15:00:00 114 mm[Hg] [facility] Diastolic blood pressure 2023-04-27 15:00:00 86 mm[Hg] [facility] Heart rate 2023-04-27 15:00:00 105 /min [facility] Oxygen saturation in Arterial blood by Pulse oximetry 2023-04-27 15:00:00 99 /min [facility] Respiratory rate 2023-04-27 12:00:00 18 /min [facility] Body temperature 2023-04-27 10:00:[address] [facility] Body weight 2023-04-27 10:00:00 49.487 kg [facility] BMI 2023-04-27 10:00:00 17.09 kg/m2 [facility] Body height 2023-04-24 21:18:00 170.2 cm [facility] height 2023-03-06 13:10:00 67 [in_i] Commo n [facility] weight 2023-03-06 13:10:00 110 [lb_av] Comm on [facility] bmi 2023-03-06 13:10:00 17.23 kg/m2 Comm on [facility] blood pressure systolic 2023-03-06 13:10:00 129 mm[Hg] Common [facility] blood pressure diastolic 2023-03-06 13:10:00 84 mm[Hg] Common [facility] height 2023-01-04 09:20:00 67 [in_i] Commo n [facility] weight 2023-01-04 09:20:00 110 [lb_av] Comm on [facility] bmi 2023-01-04 09:20:00 17.23 kg/m2 Comm on [facility] blood pressure systolic 2023-01-04 09:20:00 123 mm[Hg] [facility] blood pressure diastolic 2023-01-04 09:20:00 70 mm[Hg] [facility] Systolic blood pressure 2022-12-12 14:09:00 135 mm[Hg] [facility] Diastolic blood pressure 2022-12-12 14:09:00 89 mm[Hg] [facility] Heart rate 2022-12-12 14:08:00 123 /min [facility] Body temperature 2022-12-12 14:08:[address] [facility] Respiratory rate 2022-12-12 14:08:00 14 /min [facility] Body weight 2022-12-12 14:08:00 48.535 kg [facility] BMI 2022-12-12 14:08:00 16.76 kg/m2 [facility] Oxygen saturation in Arterial blood by Pulse oximetry 2022-12-12 14:08:00 99 /min [facility] Systolic blood pressure 2022-11-13 20:53:00 121 mm[Hg] [facility] Diastolic blood pressure 2022-11-13 20:53:00 83 mm[Hg] [facility] Heart rate 2022-11-13 20:53:00 108 /min [facility] Body temperature 2022-11-13 20:53:[address] [facility] Respiratory rate 2022-11-13 20:53:00 18 /min [facility] Oxygen saturation in Arterial blood by Pulse oximetry 2022-11-13 20:53:00 100 /min [facility] Body height 2022-11-11 01:42:00 170.2 cm [facility] Body weight 2022-11-11 01:42:00 47.174 kg [facility] BMI 2022-11-11 01:42:00 16.29 kg/m2 [facility] Systolic blood pressure 2022-11-07 16:10:00 146 mm[Hg] [facility] Diastolic blood pressure 2022-11-07 16:10:00 89 mm[Hg] [facility] Heart rate 2022-11-07 16:10:00 96 /min [facility] Body temperature 2022-11-07 16:10:[address] [facility] Respiratory rate 2022-11-07 16:10:00 16 /min [facility] Oxygen saturation in Arterial blood by Pulse oximetry 2022-11-07 16:10:00 98 /min [facility] Body weight 2022-11-07 08:47:00 48.988 kg [facility] BMI 2022-11-07 08:47:00 16.92 kg/m2 [facility] Body height 2022-11-06 11:23:00 170.2 cm [facility] height 2022-10-30 16:50:00 67 [in_i] [facility] weight 2022-10-30 16:50:00 99 [lb_av] [facility] bmi 2022-10-30 16:50:00 15.5 kg/m2 [facility] blood pressure systolic 2022-10-30 16:50:00 121 mm[Hg] [facility] blood pressure diastolic 2022-10-30 16:50:00 70 mm[Hg] [facility] Systolic blood pressure 2022-08-28 01:39:00 125 mm[Hg] [facility] Diastolic blood pressure 2022-08-28 01:39:00 96 mm[Hg] [facility] Heart rate 2022-08-28 01:39:00 95 /min [facility] Body temperature 2022-08-28 01:39:[address] [facility] Respiratory rate 2022-08-28 01:39:00 16 /min [facility] Body height 2022-08-28 01:39:00 170.2 cm [facility] Body weight 2022-08-28 01:39:00 47.628 kg [facility] BMI 2022-08-28 01:39:00 16.45 kg/m2 [facility] Oxygen saturation in Arterial blood by Pulse oximetry 2022-08-28 01:39:00 100 /min [facility] height 2022-07-31 16:20:00 67 [in_i] Commo n [facility] weight 2022-07-31 16:20:00 98 [lb_av] Commo n [facility] bmi 2022-07-31 16:20:00 15.35 kg/m2 Comm on [facility] blood pressure systolic 2022-07-31 16:20:00 120 mm[Hg] [facility] blood pressure diastolic 2022-07-31 16:20:00 74 mm[Hg] [facility] height 2022-06-01 08:50:00 67 [in_i] Commo n [facility] weight 2022-06-01 08:50:00 96.9 [lb_av] Com [facility] temperature 2022-06-01 08:50:00 96.8 [degF] Com [facility] bmi 2022-06-01 08:50:00 15.18 kg/m2 Comm on [facility] oximetry 2022-06-01 08:50:00 99 % Commo n [facility] respiratory rate 2022-06-01 08:50:00 18 /min [facility] blood pressure systolic 2022-06-01 08:50:00 118 mm[Hg] [facility] blood pressure diastolic 2022-06-01 08:50:00 77 mm[Hg] [facility] Systolic blood pressure 2022-04-13 01:48:00 138 mm[Hg] [facility] Diastolic blood pressure 2022-04-13 01:48:00 91 mm[Hg] [facility] Heart rate 2022-04-13 01:48:00 81 /min [facility] Respiratory rate 2022-04-13 01:48:00 16 /min [facility] Oxygen saturation in Arterial blood by Pulse oximetry 2022-04-13 01:48:00 98 /min [facility] Body temperature 2022-04-12 21:03:[address] [facility] Body weight 2022-04-12 21:03:00 45.36 kg [facility] BMI 2022-04-12 21:03:00 15.66 kg/m2 [facility] Systolic blood pressure 2022-04-09 05:47:00 138 mm[Hg] [facility] Diastolic blood pressure 2022-04-09 05:47:00 104 mm[Hg] [facility] Heart rate 2022-04-09 05:47:00 112 /min [facility] Body temperature 2022-04-09 05:47:[address] [facility] Respiratory rate 2022-04-09 05:47:00 16 /min [facility] Body height 2022-04-09 05:47:00 170.2 cm [facility] Body weight 2022-04-09 05:47:00 45.36 kg [facility] BMI 2022-04-09 05:47:00 15.66 kg/m2 [facility] Oxygen saturation in Arterial blood by Pulse oximetry 2022-04-09 05:47:00 100 /min [facility] Systolic blood pressure 2022-04-05 20:08:00 149 mm[Hg] [facility] Diastolic blood pressure 2022-04-05 20:08:00 114 mm[Hg] [facility] Heart rate 2022-04-05 20:08:00 108 /min [facility] Body temperature 2022-04-05 20:08:[address] [facility] Respiratory rate 2022-04-05 20:08:00 16 /min [facility] Body height 2022-04-05 20:08:00 170.2 cm [facility] Body weight 2022-04-05 20:08:00 45.36 kg [facility] BMI 2022-04-05 20:08:00 15.66 kg/m2 [facility] Oxygen saturation in Arterial blood by Pulse oximetry 2022-04-05 20:08:00 100 /min Mant[place] o [facility] height 2022-03-02 07:50:00 67 [in_i] Commo n [facility] weight 2022-03-02 07:50:00 105 [lb_av] Comm on [facility] temperature 2022-03-02 07:50:00 98 [degF] Comm on [facility] bmi 2022-03-02 07:50:00 16.44 kg/m2 Comm on [facility] blood pressure systolic 2022-03-02 07:50:00 120 mm[Hg] Common [facility] blood pressure diastolic 2022-03-02 07:50:00 76 mm[Hg] Common [facility] height 2022-01-02 11:40:00 67 [in_i] Commo n [facility] weight 2022-01-02 11:40:00 105 [lb_av] Comm on [facility] bmi 2022-01-02 11:40:00 16.44 kg/m2 Comm on [facility] blood pressure systolic 2022-01-02 11:40:00 125 mm[Hg] Common [facility] blood pressure diastolic 2022-01-02 11:40:00 76 mm[Hg] [facility] Systolic blood pressure 2021-12-04 20:56:00 124 mm[Hg] [place] o [facility] Diastolic blood pressure 2021-12-04 20:56:00 89 mm[Hg] [facility] Heart rate 2021-12-04 20:56:00 156 /min [facility] Body height 2021-12-04 20:56:00 170.2 cm [facility] Body weight 2021-12-04 20:56:00 46.72 kg [facility] BMI 2021-12-04 20:56:00 16.13 kg/m2 [facility] height 2021-10-17 08:00:00 67 [in_i] Commo n [facility] weight 2021-10-17 08:00:00 109 [lb_av] Comm on [facility] temperature 2021-10-17 08:00:00 98 [degF] Comm on [facility] bmi 2021-10-17 08:00:00 17.07 kg/m2 Comm on [facility] blood pressure systolic 2021-10-17 08:00:00 130 mm[Hg] Common [facility] blood pressure diastolic 2021-10-17 08:00:00 80 mm[Hg] [facility] height 2021-10-05 08:30:00 67 [in_i] Commo n [facility] weight 2021-10-05 08:30:00 109.1 [lb_av] Co mmon [facility] temperature 2021-10-05 08:30:00 97.7 [degF] Com mon [facility] bmi 2021-10-05 08:30:00 17.09 kg/m2 Comm on [facility] oximetry 2021-10-05 08:30:00 100 % Commo n [facility] respiratory rate 2021-10-05 08:30:00 18 /min [facility] blood pressure systolic 2021-10-05 08:30:00 137 mm[Hg] [facility] blood pressure diastolic 2021-10-05 08:30:00 89 mm[Hg] Common [facility] height 2021-07-13 15:00:00 67 [in_i] Commo n [facility] weight 2021-07-13 15:00:00 103.5 [lb_av] Co mmon [facility] temperature 2021-07-13 15:00:00 97.9 [degF] Com [facility] bmi 2021-07-13 15:00:00 16.21 kg/m2 Comm on [facility] oximetry 2021-07-13 15:00:00 100 % Commo n [facility] respiratory rate 2021-07-13 15:00:00 17 /min Common [facility] blood pressure systolic 2021-07-13 15:00:00 129 mm[Hg] Common [facility] blood pressure diastolic 2021-07-13 15:00:00 85 mm[Hg] Common [facility] height 2021-05-19 11:10:00 67 [in_i] Commo n [facility] weight 2021-05-19 11:10:00 107 [lb_av] Comm on [facility] temperature 2021-05-19 11:10:00 97.5 [degF] Com [facility] bmi 2021-05-19 11:10:00 16.76 kg/m2 Comm on [facility] height 2021-03-21 11:30:00 67 [in_i] Commo n [facility] weight 2021-03-21 11:30:00 107 [lb_av] Comm on [facility] temperature 2021-03-21 11:30:00 98 [degF] Comm on [facility] bmi 2021-03-21 11:30:00 16.76 kg/m2 Comm on [facility] blood pressure systolic 2021-03-21 11:30:00 125 mm[Hg] Common [facility] blood pressure diastolic 2021-03-21 11:30:00 75 mm[Hg] Common [facility] height 2021-01-09 16:40:00 67 [in_i] Commo n [facility] weight 2021-01-09 16:40:00 105 [lb_av] Comm on [facility] temperature 2021-01-09 16:40:00 98.5 [degF] Com mon [facility] bmi 2021-01-09 16:40:00 16.44 kg/m2 Comm on [facility] Procedures Procedure Date / Time Performed Performing Clinician Source RAPID STREP SCREEN FOR GROUP A 2024 20:21:[address] [facility] POCT TEST 2024 20:17:[address] [facility] XR WRIST 3+ VW RIGHT 2024-01-03 15:50:[address] [facility] POCT TEST 2023-12-08 20:33:[address] [facility] URINALYSIS 2023-12-08 20:04:00 Krista Cabrera [facility] URINE DRUG (IMMUNOASSAY) - COMPREHENSIVE DRUG SCREEN W/O REFLEX 2023-12-08 20:04:[address] [facility] AC PANEL 21 + LACTIC ACID 2023-12-08 19:29:[address] [facility] LIPASE 2023-12-08 19:21:00 Krista Cabrera [facility] MAGNESIUM 2023-12-08 19:21:00 Krista Cabrera [facility] COMP. METABOLIC PANEL ([id number]) 2023-12-08 19:21:[address] [facility] ETHANOL 2023-12-08 19:21:00 Krista Cabrera [facility] CBC WITH DIFF 2023-12-08 19:21:00 Krista Cabrera [facility] ETHANOL 2023-12-06 08:39:00 Lorenzo Ashford [facility] COMP. METABOLIC PANEL ([id number]) 2023-12-06 02:31:00 Bashir [facility] ETHANOL 2023-12-06 02:31:00 Alberto Camejo [facility] CBC WITH DIFF 2023-12-06 02:31:00 Bashir [facility] POCT TEST 2023-12-05 03:09:[address] [facility] TEST, URINE 2023-12-05 03:01:00 Romana Connell [facility] COMP. METABOLIC PANEL ([id number]) 2023-12-05 03:01:[address] [facility] SALICYLATE 2023-12-05 03:01:00 Jonelle Connell [facility] ETHANOL 2023-12-05 03:01:00 Jonelle Connell [facility] CBC WITH DIFF 2023-12-05 03:01:00 Jonelle Connell [facility] URINALYSIS 2023-12-05 03:01:00 Luisito Jonelle [facility] URINE DRUG (IMMUNOASSAY) - COMPREHENSIVE DRUG SCREEN W/O REFLEX 2023-12-05 03:01[facility] [facility]AST 2023-11-22 18:24:[address] [facility] CT HEAD WO CONTRAST 2023-11-22 18:24:[address] [facility] LIPASE 2023-11-22 17:12:00 Nba Balderas Un [facility] TROPONIN I 2023-11-22 17:12:00 Nba Balderas Un [facility] COMP. METABOLIC PANEL ([id number]) 2023-11-22 17:12:[address] [facility] TOTAL BETA HCG ASSAY 2023-11-22 17:12:[address] [facility] ETHANOL 2023-11-22 17:12:00 Nba Balderas Un [facility] CBC WITH DIFF 2023-11-22 17:12:00 [facility] 2023-11-22 17:12:00 Nba Balderas Un [facility] INFLUENZA A/B RSV COVID NAAT 2023-11-10 04:53:[address] [facility] POCT TEST 2023-11-10 04:25:[address] [facility] URINALYSIS 2023-11-10 04:21:[address] [facility] URINE DRUG (IMMUNOASSAY) - COMPREHENSIVE DRUG SCREEN W/O REFLEX 2023-11-10 04:21:[address] [facility] CREATINE KINASE 2023-11-10 04:14:[address] [facility] THYROID STIMULATING HORMONE 2023-11-10 04:14:[address] [facility] COMP. METABOLIC PANEL ([id number]) 2023-11-10 04:14:[address] [facility] SALICYLATE 2023-11-10 04:14:[address] [facility] ETHANOL 2023-11-10 04:14:[address] [facility] CBC WITH DIFF 2023-11-10 04:14:[address] [facility] PHOSPHORUS 2023-11-09 10:12:00 Phillip Devi [facility] MAGNESIUM 2023-11-09 10:12:00 Marito Phillip [facility] HEPATIC FUNCTION PANEL ([id number]) (ALB,T.PRO,BILI T,BU/BC,ALT,AST,ALK PHOS) 2023-11-09 10:12:[address] [facility] BASIC METABOLIC PANEL (NA, K, CL, CO2, GLUCOSE, BUN, CREATININE, CA) 2023-11-09 10:12:00 Marito [facility] CBC WITHOUT DIFF 2023-11-09 10:12:00 [facility] 2023-11-08 20:35:00 William [facility] MAGNESIUM 2023-11-08 20:35:00 William Castorena [facility] BASIC METABOLIC PANEL (NA, K, CL, CO2, GLUCOSE, BUN, CREATININE, CA) 2023-11-08 20:35:[address] [facility] CT HEAD WO CONTRAST 2023-11-08 10:42:[address] [facility] PHOSPHORUS 2023-11-08 08:59:[address] [facility] MAGNESIUM 2023-11-08 08:59:[address] [facility] VITAMIN B12, LEVEL 2023-11-08 08:59:00 Marito [facility] FOLATE 2023-11-08 08:59:[address] [facility] HEPATIC FUNCTION PANEL ([id number]) (ALB,T.PRO,BILI T,BU/BC,ALT,AST,ALK PHOS) 2023-11-08 08:59:00 Marito [facility] BASIC METABOLIC PANEL (NA, K, CL, CO2, GLUCOSE, BUN, CREATININE, CA) 2023-11-08 08:59:00 Marito [facility] CBC WITHOUT DIFF 2023-11-08 08:59:00 Phillip Devi [facility] HEPATIC FUNCTION PANEL ([id number]) (ALB,T.PRO,BILI T,BU/BC,ALT,AST,ALK PHOS) 2023-11-07 07:22:00 Marito [facility] BASIC METABOLIC PANEL (NA, K, CL, CO2, GLUCOSE, BUN, CREATININE, CA) 2023-11-07 07:22:[address] [facility] CBC WITH DIFF 2023-11-07 07:22:00 Eduar Echevarria [facility] LACTIC ACID WHOLE BLOOD 2023-11-07 07:22:[address] [facility] PHOSPHORUS 2023-11-07 00:58:00 Eduar Echevarria [facility] MAGNESIUM 2023-11-07 00:58:00 Eduar Echevarria [facility] ACUTE CARE VENOUS BLOOD GAS 2023-11-07 00:57:[address] [facility] LACTIC ACID WHOLE BLOOD 2023-11-07 00:57:[address] [facility] MRSA / MSSA SCREEN BY PCRSIDRA 2023-11-06 21:48:[address] [facility] CRITICAL CARE 2023-11-06 20:43:53 Krista Cabrera [facility] POCT TEST 2023-11-06 19:25:[address] [facility] HB ECG ROUTINE & RHYTHM STRIP 2023-11-06 19:10:[address] [facility] URINALYSIS 2023-11-06 18:51:00 Krist[facility] URINE DRUG (IMMUNOASSAY) - COMPREHENSIVE DRUG SCREEN W/O REFLEX 2023-11-06 18:51:[address] [facility] LIPASE 2023-11-06 18:43:00 Krista Cabrera [facility] MAGNESIUM 2023-11-06 18:43:00 Krista Cabrera [facility] TROPONIN I 2023-11-06 18:43:00 Krista Cabrera [facility] COMP. METABOLIC PANEL ([id number]) 2023-11-06 18:43:[address] [facility] ETHANOL 2023-11-06 18:43:00 [facility] CBC WITH DIFF 2023-11-06 18:43:00 Krista Cabrera [facility] N-TERMINAL PRO-BNP 2023-11-06 18:43:[address] [facility] AC PANEL 21 + LACTIC ACID 2023-11-06 18:43:[address] [facility] ETHANOL 2023-10-28 16:15:00 Jonelle Connell [facility] ETHANOL 2023-10-28 11:09:00 Lorenzo Ashford [facility] POCT TEST 2023-10-28 03:42:[address] [facility] COMP. METABOLIC PANEL ([id number]) 2023-10-28 03:27:[address] [facility] SALICYLATE 2023-10-28 03:27:00 [facility] 2023-10-28 03:27:00 Clementina Marroquin Un [facility] CBC WITH DIFF 2023-10-28 03:27:00 [facility] 2023-10-28 03:27:00 Clementina Marroquin Un [facility] INFLUENZA A/B RSV COVID NAAT 2023-10-28 03:27:[address] [facility] LAB ONLY COVID INTERPRETATION 2023-10-28 03:27:[address] [facility] URINE DRUG (IMMUNOASSAY) - COMPREHENSIVE DRUG SCREEN W/O REFLEX 2023-10-28 03:27:[address] [facility] POCT GLUCOSE(AGE >30DAYS) 2023-10-19 15:53:[address] [facility] POCT GLUCOSE (AUTOMATED) 2023-10-19 15:52:[address] [facility] BASIC METABOLIC PANEL (NA, K, CL, CO2, GLUCOSE, BUN, CREATININE, CA) 2023-09-21 08:28:[address] [facility] PHOSPHORUS 2023-09-20 09:24:00 Phillip Devi [facility] LIPASE 2023-09-20 09:24:00 Farzana Frost [facility] MAGNESIUM 2023-09-20 09:24:00 [facility] ([id number]) (ALB,T.PRO,BILI T,BU/BC,ALT,AST,ALK PHOS) 2023-09-20 09:24:[address] [facility] BASIC METABOLIC PANEL (NA, K, CL, CO2, GLUCOSE, BUN, CREATININE, CA) 2023-09-20 09:24:[address] [facility] CBC WITH DIFF 2023-09-20 09:24:00 [facility] PROTHROMBIN TIME / INR 2023-09-20 09:24:00 Me Santosh [facility] D-DIMER 2023-09-20 09:24:00 Santosh [facility] ACTIVATED PARTIAL THRMPLAS DAKOTAH 2023-09-20 09:24:00 Santosh [facility] PROCALCITONIN 2023-09-20 09:24:00 [facility] WHOLE BLOOD 2023-09-19 20:59:[address] [facility] COVID-19 (ID NOW RAPID TESTING) 2023-09-19 20:58:[address] [facility] LAB ONLY COVID INTERPRETATION 2023-09-19 20:58:[address] [facility] XR CHEST 1 VW 2023-09-19 17:13:36 Jsoe Quintanilla [facility] BLOOD CULTURE SCREEN 2023-09-19 17:06:[address] [facility] CREATINE KINASE 2023-09-19 17:06:00 [facility] 2023-09-19 17:06:00 Jose Quintanilla [facility] COMP. METABOLIC PANEL ([id number]) 2023-09-19 17:06:[address] [facility] CBC WITH DIFF 2023-09-19 17:06:00 Jose Quintanilla [facility] LACTIC ACID WHOLE BLOOD 2023-09-19 17:05:[address] [facility] EKG-12 LEAD 2023-09-19 16:54:29 Phillip Devi [facility] CT CHEST PULMONARY ANGIOGRAM 2023-09-15 17:19:[address] [facility] POCT TEST 2023-09-15 16:53:[address] [facility] TROPONIN I 2023-09-15 16:49:00 Cecile Rangel [facility] COMP. METABOLIC PANEL (16532) 2023-09-15 16:49:[address] [facility] CBC WITH DIFF 2023-09-15 16:49:00 Cecile Rangel [facility] D-DIMER 2023-09-15 16:49:00 [facility] 2023-09-15 16:49:00 Juan Carlos [facility] N-TERMINAL PRO-BNP 2023-09-15 16:49:[address] [facility] LACTIC ACID WHOLE BLOOD 2023-09-15 16:48:[address] [facility] HB ECG ROUTINE & RHYTHM STRIP 2023-09-15 16:44:[facility] 2023-09-14 00:14:[address] [facility] XR CHEST 2 VW 2023-09-14 00:08:48 Ishan [facility] RAPID STREP SCREEN FOR GROUP A 2023-09-13 23:31:00 Ishan [facility] RAPID INFLUENZA A/B 2023-09-13 23:31:[address] [facility] COVID-19 (ID NOW RAPID TESTING) 2023-09-13 23:31:[address] [facility] MAGNESIUM 2023-04-27 10:01:00 William Castorena [facility] COMP. METABOLIC PANEL (50305) 2023-04-27 10:01:[address] [facility] CBC WITH DIFF 2023-04-27 10:01:00 [facility] TRAN[facility] (TTE) COMPLETE 2023-04-26 20:20:[address] [facility] LIPASE 2023-04-26 11:39:00 William Castorena [facility] MAGNESIUM 2023-04-26 11:39:00 William Castorena. Uni [facility] COMP. METABOLIC PANEL (20670) 2023-04-26 11:39:[address] [facility] CBC WITH DIFF 2023-04-26 11:39:00 [facility] PROT[facility] / INR 2023-04-26 11:39:[address] [facility] ACTIVATED PARTIAL THRMPLAS DAKOTAH 2023-04-26 11:39:[address] [facility] URINE DRUG (IMMUNOASSAY) - COMPREHENSIVE DRUG SCREEN 2023-04-25 10:51:[address] [facility] LIPASE 2023-04-25 10:46:00 William Castorena Uni [facility] MAGNESIUM 2023-04-25 10:46:00 William Castorena [facility] COMP. METABOLIC PANEL (60664) 2023-04-25 10:46:[address] [facility] CBC WITH DIFF 2023-04-25 10:46:00 [facility] 2023-04-25 10:46:[address] [facility] ACTIVATED PARTIAL THRMPLAS DAKOTAH 2023-04-25 10:46:[address] [facility] N-TERMINAL PRO-BNP 2023-04-25 10:46:[address] [facility] LACTIC ACID WHOLE BLOOD 2023-04-25 10:46:[address] [facility] PHOSPHORUS 2023-04-25 04:50:00 William Castorena [facility] CT ABDOMEN PELVIS W CONTRAST 2023-04-25 01:17:[address] [facility] URINALYSIS 2023-04-24 23:43:00 Jose Quintanilla [facility] POCT TEST 2023-04-24 23:41:[address] [facility] AMMONIA, PLASMA 2023-04-24 23:32:00 [facility]OUTINE & RHYTHM STRIP 2023-04-24 22:36:[address] [facility] LIPASE 2023-04-24 22:23:00 [facility] 2023-04-24 22:23:00 Jose Quintanilla [facility] COMP. METABOLIC PANEL (41797) 2023-04-24 22:23:[address] [facility] ETHANOL 2023-04-24 22:23:00 Jose [facility]anilla [facility] CBC WITH DIFF 2023-04-24 22:23:00 Jose Quintanilla [facility] PROTHROMBIN TIME / INR 2023-04-24 22:23:[address] [facility] ACTIVATED PARTIAL THRMPLAS DAKOTAH 2023-04-24 22:23:[address] [facility] CONSENT/REFUSAL FOR DIAGNOSIS AND TREATMENT 2023-04-24 21:03:16 Doctor Unassigned, [place] [facility] XR FOOT 3+ VW LEFT 2022-12-12 14:30:15 Alma Rosa Roberson Un [facility] ASSIGNMENT OF BENEFITS 2022-12-12 14:03:23 Docto r Unassigned, [place] [facility] CONSENT/REFUSAL FOR DIAGNOSIS AND TREATMENT 2022-12-12 14:03:11 Doctor Unassigned, [place] [facility] PHOSPHORUS 2022-11-13 10:22:00 Jesse Spencer [facility] MAGNESIUM 2022-11-13 10:22:00 Jesse Spencer [facility] BASIC METABOLIC PANEL (NA, K, CL, CO2, GLUCOSE, BUN, CREATININE, CA) 2022-11-13 10:22:[address] [facility] CBC WITHOUT DIFF 2022-11-13 10:22:00 Jesse Spencer [facility] POCT GLUCOSE (AUTOMATED) 2022-11-12 23:12:[address] [facility] MAGNESIUM 2022-11-12 09:47:[address] [facility] BASIC METABOLIC PANEL (NA, K, CL, CO2, GLUCOSE, BUN, CREATININE, CA) 2022-11-12 09:47:[address] [facility] CBC WITH DIFF 2022-11-12 09:47:[address] [facility] POCT GLUCOSE (AUTOMATED) 2022-11-11 18:34:[address] [facility] POCT GLUCOSE (AUTOMATED) 2022-11-11 17:51:[address] [facility] POCT GLUCOSE (AUTOMATED) 2022-11-11 12:16:[address] [facility] LIPASE 2022-11-11 09:43:00 Isael Olmedo [facility] MAGNESIUM 2022-11-11 09:43:00 Yasir Chaney [facility] COMP. METABOLIC PANEL (21928) 2022-11-11 09:43:[address] [facility] CBC WITH DIFF 2022-11-11 09:43:00 Isael Olmedo [facility] MRSA / MSSA SCREEN BY PCR, NARSHAINA 2022-11-11 01:32:[address] [facility] LIPASE 2022-11-10 22:21:00 Adelina Judge [facility] FOLATE 2022-11-10 22:21:00 Isael Olmedo [facility] TEST, SERUM 2022-11-10 22:21:[address] [facility] COMP. METABOLIC PANEL (37431) 2022-11-10 22:21:[address] [facility] ETHANOL 2022-11-10 22:21:00 Adelina Judge [facility] CBC WITH DIFF 2022-11-10 22:21:00 Adelina Judge [facility] CONSENT/REFUSAL FOR DIAGNOSIS AND TREATMENT 2022-11-10 21:39:27 Doctor Unassigned, [place] [facility] CRITICAL CARE 2022-11-10 21:38:[address] [facility] LIPASE 2022-11-07 09:37:00 William Castorena [facility] MAGNESIUM 2022-11-07 09:37:00 William Castorena [facility] HEPATIC FUNCTION PANEL (26700) (ALB,T.PRO,BILI T,BU/BC,ALT,AST,ALK PHOS) 2022-11-07 09:37:[address] [facility] BASIC METABOLIC PANEL (NA, K, CL, CO2, GLUCOSE, BUN, CREATININE, CA) 2022-11-07 09:37:[address] [facility] LIPID PANEL (18780)(TOTAL CHOLESTEROL, TRIGLYCERIDES, HDL) 2022-11-07 09:37:[address] [facility] CBC WITH DIFF 2022-11-07 09:37:00 [facility] / INR 2022-11-07 09:37:[address] [facility] ACTIVATED PARTIAL THRMPLAS DAKOTAH 2022-11-07 09:37:[address] [facility] US GALL BLADDER 2022-11-06 09:32:53 Suleman Lopez [facility] CT ABDOMEN PELVIS W CONTRAST 2022-11-06 06:57:[address] [facility] LIPASE 2022-11-06 06:32:00 Zoë Singletary [facility] COMP. METABOLIC PANEL (02996) 2022-11-06 06:32:[address] [facility] ETHANOL 2022-11-06 06:32:00 Suleman Lopez [facility] CBC WITH DIFF 2022-11-06 06:32:00 Zoë Singletary [facility] URINALYSIS 2022-11-06 06:18:00 Zoë Singletary [facility] POCT TEST 2022-11-06 06:18:[address] [facility] CONSENT/REFUSAL FOR DIAGNOSIS AND TREATMENT 2022-11-06 06:01:51 Doctor Unassigned, [place] [facility] POCT TEST 2022-08-28 02:47:[address] [facility] NOTICE OF PRIVACY PRACTICES 2022-08-28 01:31:41 Doctor Unassigned, [place] [facility] CONSENT/REFUSAL FOR DIAGNOSIS AND TREATMENT 2022-08-28 01:30:51 Doctor Unassigned, [place] [facility] BASIC METABOLIC PANEL (NA, K, CL, CO2, GLUCOSE, BUN, CREATININE, CA) 2022-04-13 00:10:[address] [facility] CBC WITH DIFF 2022-04-13 00:10:00 Lacey Suggs [facility] CONSENT/REFUSAL FOR DIAGNOSIS AND TREATMENT 2022-04-12 21:08:37 Doctor Unassigned, [place] [facility] CONSENT/REFUSAL FOR DIAGNOSIS AND TREATMENT 2022-04-09 05:40:38 Doctor Unassigned, [place] [facility] BASIC METABOLIC PANEL (NA, K, CL, CO2, GLUCOSE, BUN, CREATININE, CA) 2022-04-05 22:24:[address] [facility] CBC WITH DIFF 2022-04-05 22:24:00 Lenore Alarcon [facility] CONSENT/REFUSAL FOR DIAGNOSIS AND TREATMENT 2022-04-05 19:50:28 Doctor Unassigned, [place] [facility] Encounters Start Date/Time End Date/Time Encounter Type Admission Type Attending Clinicians Care Facility Care Department Encounter ID Source 2023-03-06 08:02:00 [facility] [id number] [facility] 2023-03-05 10:16:00 Outpatient Devyn [facility] [id number] [facility] 2023-03-04 11:18:00 Outpatient Malagon, Leander STLMLC STLMLC [id number] [facility] 2022-07-27 10:23:00 Outpatient Malagon, Leander STLMLC STLMLC [id number] [facility] 2022-06-13 14:55:45 Outpatient [facility] [id number] [facility] 2022-05-30 09:48:00 Outpatient Malagon, Leander STLMLC STLMLC [id number] [facility] 2021-11-13 13:38:00 Outpatient Malagon, Leander STLC STLC [id number] [facility] 2021-11-10 10:45:18 Outpatient CATHIE GONZALEZ [facility] [id number] [facility] 2021-11-09 09:43:50 Outpatient CATHIE GONZALEZ [facility] [id number] [facility] 2021-11-08 16:22:13 Outpatient CATHIE GONZALEZ [facility] [id number] [facility] 2021-05-17 14:17:09 Outpatient Malagon, Leander STLC STLC [id number] [facility] 2021-05-17 13:50:42 Outpatient Malagon, Leander STLMLC STLMLC [id number] [facility] 2021-05-17 13:50:27 Outpatient Malagon, Leander STLMLC STLMLC [id number] [facility] 2021-05-17 13:28:45 Outpatient Malagon, Leander STLMLC STLMLC [id number] [facility] 2021-05-17 12:51:57 Outpatient Malagon, Leander STLMLC STLMLC [id number] [facility] 2021-05-17 12:45:56 Outpatient Malagon, Leander STLMLC STLMLC [id number] [facility] 2021-05-17 12:39:56 Outpatient Malagon, Leander STLMLC STLMLC [id number] [facility] 2021-05-17 12:39:35 Outpatient Malagon, Leander STLMLC STLMLC [id number] [facility] 2021-05-17 12:38:37 Outpatient Malagon, Leander STLMLC STLMLC [id number] [facility] 2021-05-17 12:33:47 Outpatient Malagon, Leander STLMLC STLMLC [id number] [facility] 2021-05-17 12:32:33 Outpatient Malagon, Leander STLMLC STLMLC [id number] [facility] 2021-05-17 12:29:13 Outpatient Malagon, Leander STLMLC STLMLC [id number] [facility] 2021-05-17 12:25:07 Outpatient Malagon, Leander STLMLC STLMLC [id number] [facility] 2021-05-17 12:24:31 Outpatient Malagon, Leander STLMLC STLMLC [id number] [facility] 2021-05-17 12:07:53 Outpatient Malagon, Leander STLMLC STLMLC [id number] [facility] 2021-05-17 12:07:23 Outpatient Malagon, Leander STLMLC STLMLC [id number] [facility] 2021-05-17 11:59:39 Outpatient Malagon, Leander STLMLC STLMLC [id number] [facility] 2021-05-17 11:37:35 Outpatient Malagon, Leander STLMLC STLMLC [id number] [facility] 2021-05-17 11:16:40 [facility] [id number] [facility] 2021-05-17 11:10:01 [facility] [id number] [facility] 2021-05-17 11:07:07 [facility] [id number] [facility] 2021-05-17 10:59:13 [facility] [id number] [facility] 2021-05-17 10:57:50 [facility] [id number] [facility] 2021-02-19 19:59:15 Emergency [facility] [id number] [facility] 2021-02-19 15:25:26 Emergency [facility] [id number] [facility] 2024-02-13 11:15:00 2024-02-13 11:15:00 Outpatient R CATHIE ROSS CRAIG [facility] [id number] [facility] 2024-02-06 11:15:00 2024-02-06 11:15:00 Outpatient R CATHIE ROSS CRAIG [facility] [id number] [facility] 2024-02-05 13:19:03 2024-02-05 23:59:00 Hospital Encounter Cathie Ross [facility] 1.2.840.114 350.1.13.10 4.2.7.2.686 [id number] [facility] 2024-02-05 13:30:00 2024-02-05 13:37:44 Outpatient R CATHIE ROSS CRAIG [facility] [id number] [facility] 2024-02-05 13:30:00 2024-02-05 13:37:44 Office Visit Cathie Ross [facility] 1.84.114 350.1.13.10 4.2.7.2.686 [id number] [facility] 2024 14:24:00 2024 16:14:00 Emergency X BENTON, JAYDEN JOHANSEN, JAYDEN [facility] [id number] [facility] 2024 14:24:00 2024 16:14:00 Emergency Jayden Johansen [facility] 1.284.114 350.1.13.10 4.2.7.2.686 [id number] [facility] 2024-01-23 11:12:44 2024-01-23 23:59:00 Hospital Encounter Cathie [facility] 1.284.114 350.1.13.10 4.2.7.2.686 [id number] [facility] 2024-01-23 11:15:00 2024-01-23 12:12:25 Outpatient R CATHIE ROSS CRAIG [facility] [id number] [facility] 2024-01-23 11:15:00 2024-01-23 12:12:25 Office Visit Cathie Ross [facility] 1.284.114 350.1.13.10 4.2.7.2.686 [id number] [facility] 2024-01-06 16:50:10 2024-01-06 16:50:10 Outpatient SFA [facility] [id number] [place] Sainz 2024-01-03 10:37:56 2024-01-03 23:59:00 Hospital Encounter Cathie Ross [facility] 1.2840.114 350.1.13.10 4.2.7.2.686 [id number] [facility] 2024-01-03 10:30:00 2024-01-03 11:05:38 Outpatient R CATHIE ROSS CRAIG [facility] [id number] [facility] 2024-01-03 10:30:00 2024-01-03 11:05:38 Office Visit Cathie Ross [facility] 1..840.114 350.1.13.10 4.2.7.2.686 [id number] [facility] 2023-12-27 15:35:00 2023-12-27 20:32:00 Emergency X KANDY CHAVEZ JOHNNA [facility] E[facility] [id number] [facility] 2023-12-27 15:35:00 2023-12-27 20:32:00 Emergency Kandy Chavez [facility] 1..840.114 350.1.13.10 4.2.7.2.686 [id number] [facility] 2023-12-27 10:00:00 2023-12-27 10:00:00 Outpatient R CATHIE ROSS CRAIG [facility] [id number] [facility] 2023-12-16 06:24:00 2023-12-16 08:37:00 Emergency X LORENZO ASHFORD WAKILI [facility] ERT [id number] [facility] 2023-12-16 06:24:00 2023-12-16 08:37:00 Emergency Lorenzo Ashford [facility] 1..840.114 350.1.13.10 4.2.7.2.686 [id number] [facility] 2023-12-08 14:12:00 2023-12-08 17:39:00 Emergency X KRISTA CABRERA DONNELL [facility] ERT [id number] [facility] 2023-12-08 14:12:00 2023-12-08 17:39:00 Emergency Krista Cabrera [facility] 1.2.840.114 350.1.13.10 4.2.7.2.686 [id number] [facility] 2023-12-05 20:46:00 2023-12-06 09:06:00 Emergency X LORENZO ASHFORD, LORENZO [facility] E[facility] [id number] [facility] 2023-12-05 20:46:00 2023-12-06 09:06:00 Emergency Alberto Camejo Wakili S [facility] 1.2.840.114 350.1.13.10 4.2.7.2.686 [id number] [facility] 2023-12-04 21:40:00 2023-12-05 01:00:00 Emergency X LORENZO ASHFORD, LORENZO [facility] E[facility] [id number] [facility] 2023-12-04 21:40:00 2023-12-05 01:00:00 Emergency Jonelle Connell, Lorenzo S [facility] 1.2.840.114 350.1.13.10 4.2.7.2.686 [id number] [facility] 2023-11-22 12:02:00 2023-11-22 16:58:00 Emergency X SANDI NBA WEN [facility] ERT [id number] [facility] 2023-11-22 12:02:00 2023-11-22 16:58:00 Emergency ElderDwain Mondragona [facility] 1.2.840.114 350.1.13.10 4.2.7.2.686 [id number] [facility] 2023-11-11 00:00:00 2023-11-11 09:55:02 Patient Outreach Tali Lauren URENAAdilson ATA MELARA 1..840.114 350.1.13.10 4.2.7.2.686 [id number] [facility] 2023-11-09 22:30:00 2023-11-10 02:12:00 Emergency X VALERIO LOWE WILLIAM [facility] ERT [id number] [facility] 2023-11-09 22:30:00 2023-11-10 02:12:00 Emergency Alyssia Miranda William B [facility] 1..840.114 350.1.13.10 4.2.7.2.686 [id number] [facility] 2023-11-06 13:20:00 2023-11-09 11:54:00 Inpatient X PHILLIP DEVI [facility] JENIFFER [id number] [facility] 2023-11-06 13:20:00 2023-11-09 11:54:00 Hospital Encounter Krista Cabrera David Oville, Jelani [facility] 1..840.114 350.1.13.10 4.2.7.2.686 [id number] [facility] 2023-10-27 22:09:00 2023-10-28 13:11:00 Emergency X JONELLE CONNELL JONELLE [facility] ERT [id number] [facility] 2023-10-27 22:09:00 2023-10-28 13:11:00 Emergency Zoë Singletary Jonelle [facility] 1..840.114 350.1.13.10 4.2.7.2.686 [id number] [facility] 2023-10-19 10:39:00 2023-10-19 11:33:00 Emergency X ZOË SINGLETARY PAMALA [facility] ERT [id number] [facility] 2023-10-19 10:39:00 2023-10-19 11:33:00 Emergency Zoë Singletary [facility] 1.2.840.114 350.1.13.10 4.2.7.2.686 [id number] [facility] 2023-10-18 19:19:00 2023-10-18 21:09:00 Emergency X KRISTA CABRERA DONNELL [facility] ERT [id number] [facility] 2023-10-18 19:19:00 2023-10-18 21:09:00 Emergency Krista Cabrera [facility] 1.2.840.114 350.1.13.10 4.2.7.2.686 [id number] [facility] 2023-09-19 11:52:00 2023-09-21 11:57:00 Inpatient X MARITO GUTHRIE [facility] JENIFFER [id number] [facility] 2023-09-19 11:52:00 2023-09-21 11:57:00 Hospital Encounter DwightJose hernandez Darin Devilani [facility] 1.2.840.114 350.1.13.10 4.2.7.2.686 [id number] [facility] 2023-09-15 11:26:00 2023-09-15 13:28:00 Emergency X TAWANA RANGELANNE [facility] ERT [id number] [facility] 2023-09-15 11:26:00 2023-09-15 13:28:00 Emergency Cecile Rangel [facility] 1.2.840.114 350.1.13.10 4.2.7.2.686 [id number] [facility] 2023-09-13 18:06:00 2023-09-13 20:03:00 Emergency X ISHAN, ELENO ISHAN, SALRENETTA [facility] ERT [id number] [facility] 2023-09-13 18:06:00 2023-09-13 20:03:00 Emergency Eleno Olmstead [facility] 1.2.840.114 350.1.13.10 4.2.7.2.686 [id number] [facility] 2023-06-21 00:00:00 2023-06-21 00:00:00 (TEL) STLMLC STLMLC [id number] [facility] 2023-06-21 00:00:00 2023-06-21 00:00:00 (TEL) STLMLC STLMLC [id number] [facility] 2023-06-11 00:00:00 2023-06-11 00:00:00 OFFICE VISIT ESTAB PT LEVEL 3 STLMLC STLMLC [id number] [facility] 2023-05-08 00:00:00 2023-05-08 00:00:00 (TEL) STLMLC STLMLC [id number] [facility] 2023-05-01 00:00:00 2023-05-01 00:00:00 Telephone Adrian Leija [facility] 1.2.840.114 350.1.13.10 4.2.7.2.686 [id number] [facility] 2023-05-01 00:00:00 2023-05-01 00:00:00 Patient Secure Msg Doctor Unassigned, [place] [facility] 1.2.840.114 350.1.13.10 4.2.7.2.686 [id number] [facility] 2023-04-30 14:00:00 2023-04-30 14:30:10 Outpatient R ADRIAN LEIJA [facility] [id number] [facility] 2023-04-30 14:00:00 2023-04-30 14:30:10 Urgent Care Adrian Leija Unknown, [facility] 1.2.840.114 350.1.13.10 4.2.7.2.686 [id number] [facility] 2023-04-30 00:00:00 2023-04-30 00:00:00 Transition of Care Thelma Slaughter 1.2.840.114 350.1.13.10 4.2.7.2.686 [id number] [facility] 2023-04-24 15:22:00 2023-04-27 09:58:00 Inpatient X [facility] [id number] [facility] 2023-04-24 15:22:00 2023-04-27 09:58:00 Hospital Encounter Jose Quintanilla Mohammad [facility] 1..840.114 350.1.13.10 4.2.7.2.686 [id number] [facility] 2023-03-07 00:00:00 2023-03-07 00:00:00 (TEL) STLMLC STLMLC [id number] [facility] 2023-03-07 00:00:00 2023-03-07 00:00:00 (TEL) STLMLC STLMLC [id number] [facility] 2023-03-06 00:00:00 2023-03-06 00:00:00 OFFICE VISIT ESTAB PT LEVEL 3 STLMLC STLMLC [id number] [facility] 2023-02-06 00:00:00 2023-02-06 00:00:00 (TEL) STLMLC STLMLC [id number] [facility] 2023-01-21 00:00:00 2023-01-21 00:00:00 [facility] [id number] 2023-01-12 02:25:00 2023-01-12 05:16:00 Emergency EM Jacob Jacobs [facility] [id number] [facility] 2023-01-04 00:00:00 2023-01-04 00:00:00 OFFICE VISIT ESTAB PT LEVEL 3 STLMLC STLC [id number] [facility] 2023-01-01 00:00:00 2023-01-01 00:00:00 (TEL) STLC STLC [id number] [facility] 2022-12-12 09:13:33 2022-12-12 23:59:00 Outpatient R ALMA ROSA ROBERSON [facility] [id number] [facility] 2022-12-12 09:13:33 2022-12-12 23:59:00 Hospital Encounter Alma Rosa Rob[facility] 1.2.840.114 350.1.13.10 4.2.7.2.686 [id number] [facility] 2022-12-12 09:00:00 2022-12-12 09:20:00 Urgent Care Da Alma Rosa Unknown, Attending [facility] 1.2.840.114 350.1.13.10 4.2.7.2.686 [id number] [facility] 2022-12-12 00:00:00 2022-12-12 00:00:00 Orders Only Doctor Unassigned, [place] [facility] 1..840.114 350.1.13.10 4.2.7.2.686 [id number] [facility] 2022-12-12 00:00:00 2022-12-12 00:00:00 (TEL) [facility] [id number] [facility] 2022-12-06 00:00:00 2022-12-06 00:00:00 (TEL) [facility] STLC [id number] [facility] 2022-11-14 00:00:00 2022-11-14 00:00:00 Transition of Care Thelma Slaughter 1.2.840.114 350.1.13.10 4.2.7.2.686 [id number] [facility] 2022-11-10 16:54:00 2022-11-13 18:24:00 Inpatient X JUAN CHAVEZ [facility] [id number] [facility] 2022-11-10 16:54:00 2022-11-13 18:24:00 Hospital Encounter Adelina Judge, Juan Laguerre [facility] 1..840.114 350.1.13.10 4.2.7.2.686 [id number] [facility] 2022-11-06 01:11:00 2022-11-07 14:51:00 Outpatient X EDUAR ECHEVARRIA [facility] [id number] [facility] 2022-11-06 01:11:00 2022-11-07 14:51:00 Emergency Zoë Singletary Mohammad A. Morris, David [facility] 1..840.114 350.1.13.10 4.2.7.2.686 [id number] [facility] 2022-10-30 00:00:00 2022-10-30 00:00:00 OFFICE VISIT ESTAB PT LEVEL 4 ST[facility] [id number] [facility] 2022-10-01 00:00:00 2022-10-01 00:00:00 (TEL) STLC STLC [id number] [facility] 2022-08-27 20:56:00 2022-08-27 22:56:00 Emergency X [facility]ARGUERITE [facility]ST [facility] ERT [id number] [facility] 2022-08-27 20:56:00 2022-08-27 22:56:00 Emergency Marguerite Best [facility] 1.2.840.114 350.1.13.10 4.2.7.2.686 [id number] [facility] 2022-08-09 00:00:00 2022-08-09 00:00:00 (TEL) STLMLC STLMLC [id number] [facility] 2022-07-31 00:00:00 2022-07-31 00:00:00 OFFICE VISIT ESTAB PT LEVEL 4 STLMLC STLMLC [id number] [facility] 2022-06-01 00:00:00 2022-06-01 00:00:00 OFFICE VISIT ESTAB PT LEVEL 4 STLMLC STLMLC [id number] [facility] 2022-05-21 08:30:00 2022-05-21 08:30:00 Outpatient R GINA LIZBETH [facility] [id number] [facility] 2022-05-21 08:30:00 2022-05-21 08:30:00 Outpatient R GINA LIZBETH [facility] [id number] [facility] 2022-05-01 00:00:00 2022-05-01 00:00:00 (TEL) STLMLC STLMLC [id number] [facility] 2022-04-24 00:00:00 2022-04-24 00:00:00 (TEL) STLMLC STLMLC [id number] [facility] 2022-04-12 15:05:00 2022-04-12 19:50:00 Emergency Chula [facility] ERT [id number] [facility] 2022-04-12 15:05:00 2022-04-12 19:50:00 Emergency Lacey [facility] 1..840.114 350.1.13.10 4.2.7.2.686 [id number] [facility] 2022-04-12 00:00:00 2022-04-12 00:00:00 Telephone Oral Surgery [facility] SARITHA 1.2.840.114 350.1.13.10 4.2.7.2.686 [id number] [facility] 2022-04-08 23:47:00 2022-04-09 00:39:00 Emergency X DWIGHT Jose [facility] ERT [id number] [facility] 2022-04-08 23:47:00 2022-04-09 00:39:00 Emergency DwightJose Alyssa [facility] 1.2.840.114 350.1.13.10 4.2.7.2.686 [id number] [facility] 2022-04-06 19:08:00 2022-04-06 22:00:00 Emergency Jian Samuel [facility] [place] [id number] [facility] 2022-04-05 14:09:00 2022-04-05 17:11:00 Emergency X LENORE ALARCON [facility] ERT [id number] [facility] 2022-04-05 14:09:00 2022-04-05 17:11:00 Emergency Lenore Alarcon [facility] 1.2.840.114 350.1.13.10 4.2.7.2.686 [id number] [facility] 2022-03-02 00:00:00 2022-03-02 00:00:00 OFFICE VISIT ESTAB PT LEVEL 4 [facility] [id number] [facility] 2022-02-28 00:00:00 2022-02-28 00:00:00 (TEL) [facility] STLC [id number] [facility] 2022-01-15 09:00:00 2022-01-15 09:00:00 Outpatient R [facility] [id number] [facility] 2022-01-15 09:00:00 2022-01-15 09:00:00 Outpatient R [facility] [id number] [facility] 2022-01-15 09:00:00 2022-01-15 09:00:00 Outpatient R DURGA CORTES [facility] [id number] [facility] 2022-01-15 09:00:00 2022-01-15 09:00:00 Outpatient R [facility] [id number] [facility] 2022-01-02 00:00:00 2022-01-02 00:00:00 OFFICE VISIT ESTAB PT LEVEL 4 STLMLC STLMLC [id number] [facility] 2021-12-04 12:37:10 2021-12-04 23:59:00 Hospital Encounter Alfie Kerrie [facility] 1.2.840.114 350.1.13.10 4.2.7.2.686 [id number] [facility] 2021-12-04 16:00:00 2021-12-04 16:44:58 [facility] 1.2.840.114 350.1.13.10 4.2.7.2.686 [id number] [facility] 2021-12-04 16:00:00 2021-12-04 16:44:58 Outpatient R ALFIE KERRIE [facility] [id number] [facility] 2021-12-04 16:00:00 2021-12-04 16:00:00 Outpatient R ALFIE [facility] [id number] [facility] 2021-12-04 00:00:00 2021-12-04 00:00:00 Telephone Cathie Ross [facility] 1.2.840.114 350.1.13.10 4.2.7.2.686 [id number] [facility] 2021-12-04 00:00:00 2021-12-04 00:00:[address] [facility] OFF[facility] 1.2.840.114 350.1.13.10 4.2.7.2.686 [id number] [facility] 2021-11-29 15:15:00 2021-11-29 16:25:54 [facility] 1.2.840.114 350.1.13.10 4.2.7.2.686 [id number] [facility] 2021-11-29 15:15:00 2021-11-29 16:25:54 Outpatient R ALFIE KERRIE [facility] [id number] [facility] 2021-11-29 15:15:00 2021-11-29 15:15:00 Outpatient R ALFIE [facility] [id number] [facility] 2021-11-28 00:00:00 2021-11-28 00:00:00 Telephone Cathie Ross Yuki [facility] 1.2.840.114 350.1.13.10 4.2.7.2.686 [id number] [facility] 2021-11-27 16:15:00 2021-11-27 16:15:00 Outpatient R CATHIE RSOS [facility] [id number] [facility] 2021-11-20 14:45:00 2021-11-20 15:20:56 Outpatient R CATHIE ROSS [facility] [id number] [facility] 2021-11-20 14:45:00 2021-11-20 15:20:56 Office Visit Cathie Ross [facility] 1..840.114 350.1.13.10 4.2.7.2.686 [id number] [facility] 2021-11-18 12:53:52 2021-11-18 23:59:00 Outpatient R JACQUELINE SHIN [facility] [id number] [facility] 2021-11-18 12:53:52 2021-11-18 23:59:00 Hospital Encounter Darin Shinssica [facility] 1..840.114 350.1.13.10 4.2.7.2.686 [id number] [facility] 2021-11-18 12:40:00 2021-11-18 13:00:00 Urgent Care Jacqueline Shin Alma Rosa Roberson [facility] 1.840.114 350.1.13.10 4.2.7.2.686 [id number] [facility] 2021-11-18 00:10:00 2021-11-18 00:42:00 Emergency X LORENZO ASHFORD [facility] ERT [id number] [facility] 2021-11-18 00:10:00 2021-11-18 00:42:00 Emergency Lorenzo Ashford [facility] 1.84.114 350.1.13.10 4.2.7.2.686 [id number] [facility] 2021-11-17 00:00:00 2021-11-17 00:00:00 Orders Only Doctor Unassigned, [place] [facility] 1.84.114 350.1.13.10 4.2.7.2.686 [id number] [facility] 2021-11-16 13:30:00 2021-11-16 13:44:47 Office Visit [facility] 1.2.840.114 350.1.13.10 4.2.7.2.686 [id number] [facility] 2021-11-16 13:30:00 2021-11-16 13:44:47 Outpatient R ALFIE [facility] [id number] [facility] 2021-11-16 13:30:00 2021-11-16 13:30:00 Outpatient R ALFIE [facility] [id number] [facility] 2021-11-15 00:00:00 2021-11-15 00:00:00 Telephone Cathie Ross [facility] 1.2.840.114 350.1.13.10 4.2.7.2.686 [id number] [facility] 2021-11-13 14:00:00 2021-11-13 14:57:00 Surgery RossCathie [facility] 1.2.840.114 350.1.13.10 4.2.7.2.686 [id number] [facility] 2021-11-13 11:04:00 2021-11-13 14:30:00 Outpatient R ROSSCATHIE [facility] [id number] [facility] 2021-11-13 11:04:00 2021-11-13 14:30:00 Hospital Encounter RossCathie sapp [facility] 1.2.840.114 350.1.13.10 4.2.7.2.686 [id number] [facility] 2021-11-13 08:00:00 2021-11-13 09:01:53 Outpatient R GINA [facility] [id number] [facility] 2021-11-13 08:00:00 2021-11-13 09:01:53 Office Visit [place], Afaq [facility] MEDICAL OFFICE BUILDING 1.2.840.114 350.1.13.10 4.2.7.2.686 [id number] [facility] 2021-11-13 00:00:00 2021-11-13 00:00:00 Telephone Cathie [facility] 1.2.840.114 350.1.13.10 4.2.7.2.686 [id number] [facility] 2021-11-10 10:43:14 2021-11-10 23:59:00 Hospital Encounter Yunior Cathie Mirza [facility] 1.2.840.114 350.1.13.10 4.2.7.2.686 [id number] [facility] 2021-11-10 11:15:00 2021-11-10 11:30:00 Science Faculty Member Visit Pob, Adc Lab Main Ross, Cathie Mirza [facility] PROFESSIO NAL BUILDING 1.2.840.114 350.1.13.10 4.2.7.2.686 [id number] [facility] 2021-11-10 10:38:25 2021-11-10 10:42:00 Outpatient R CATHIE ROSS [facility] [id number] [facility] 2021-11-10 08:30:00 2021-11-10 08:45:00 Laboratory Only Only, Adc Test Cathie Ross [facility] 1.2.840.114 350.1.13.10 4.2.7.2.686 [id number] [facility] 2021-11-10 00:00:00 2021-11-10 00:00:00 (TEL) STLMLC STLMLC [id number] [facility] 2021-11-10 00:00:00 2021-11-10 00:00:00 Telephone Cathie Ross [facility] OFF[facility] BUILD[facility] 1.2.840.114 350.1.13.10 4.2.7.2.686 [id number] [facility] 2021-11-09 00:00:00 2021-11-09 00:00:00 Telephone Cathie Ross [facility] 1.2840.114 350.1.13.10 4.2.7.2.686 [id number] [facility] 2021-11-09 00:00:00 2021-11-09 00:00:00 Telephone Cathie Ross [facility] OFF[facility] 1.2.840.114 350.1.13.10 4.2.7.2.686 [id number] [facility] 2021-11-08 15:30:00 2021-11-08 15:55:00 Outpatient R CATHIE ROSS [facility] [id number] [facility] 2021-11-08 15:30:00 2021-11-08 15:55:00 Office Visit Cathie Ross [facility] MED[facility] OFF[facility] BUILD[facility] 1.2.840.114 350.1.13.10 4.2.7.2.686 [id number] [facility] 2021-11-08 00:00:00 2021-11-08 00:00:00 Prep For Surgery Cathie Ross [facility] 1.2.840.114 350.1.13.10 4.2.7.2.686 [id number] [facility] 2021-11-07 00:00:00 2021-11-07 00:00:00 (TEL) STLMLC STLMLC [id number] [facility] 2021-11-03 08:00:00 2021-11-03 08:00:00 Outpatient R KERRIE JUDGE [facility] [id number] [facility] 2021-10-30 14:00:00 2021-10-30 14:05:17 Outpatient R ALMA ROSA ROBERSON [facility] [id number] [facility] 2021-10-30 14:00:00 2021-10-30 14:05:17 Urgent Care Consuelo Vu [facility] [place] MEDICAL OFFICE BUILDING 1.2.840.114 350.1.13.10 4.2.7.2.686 [id number] [facility] 2021-10-29 13:44:17 2021-10-29 23:59:00 [facility] [id number] [facility] 2021-10-29 13:44:17 2021-10-29 23:59:00 [facility] [id number] [facility] 2021-10-29 13:44:17 2021-10-29 23:59:00 Hospital Encounter Cee [facility] N[facility] MEDICAL OFF[facility] BUILD[facility] 1.2.840.114 350.1.13.10 4.2.7.2.686 [id number] [facility] 2021-10-29 14:40:00 2021-10-29 14:40:00 Urgent Care Cee [facility] [place]?[facility] 1.2.840.114 350.1.13.10 4.2.7.2.686 [id number] [facility] 2021-10-17 00:00:00 2021-10-17 00:00:00 OFFICE VISIT ESTAB PT LEVEL 4 STLMLC STLMLC [id number] [facility] 2021-10-05 00:00:00 2021-10-05 00:00:00 (WELLNESS) Wellness Visit [facility] [id number] [facility] 2021-10-03 00:00:00 2021-10-03 00:00:00 (TEL) STLC STLC [id number] [facility] 2021-10-02 00:00:00 2021-10-02 00:00:00 (TEL) [facility] [id number] [facility] 2021-08-14 09:30:00 2021-08-14 09:53:56 Nurse Visit Visit, Ang-Rmchp Nurse Durga Cortes [facility] DAIRY FE[employer] SALES CONSULTANT [facility] & CHILD [facility] 1.840.114 350.1.13.10 4.2.7.2.686 [id number] [facility] 2021-08-14 09:30:00 2021-08-14 09:30:00 Outpatient R [facility] [id number] [facility] 2021-08-14 09:30:00 2021-08-14 09:30:00 Outpatient R DURGA CORTES [facility] [id number] [facility] 2021-08-07 00:00:00 2021-08-07 00:00:00 [id number] 2021-07-17 00:00:00 2021-07-17 00:00:00 Telephone Pratima Wu [facility] DAIRY [employer] [facility] & CHILD [facility] 1..840.114 350.1.13.10 4.2.7.2.686 [id number] [facility] 2021-07-17 00:00:00 2021-07-17 00:00:00 Orders Only Doctor Unassigned, [place] [facility] 1.840.114 350.1.13.10 4.2.7.2.686 [id number] [facility] 2021-07-13 09:15:00 2021-07-13 09:58:35 Outpatient R PRATIMA WU [facility] [id number] [facility] 2021-07-13 09:15:00 2021-07-13 09:58:35 Office Visit Pratima Wu [facility] DAIRY FEED SALES CONSULTANT [facility]ERNAL & CHILD [facility] 1.2.840.114 350.1.13.10 4.2.7.2.686 [id number] [facility] 2021-07-13 09:15:00 2021-07-13 09:58:35 Outpatient R PRATIMA WU [facility] [id number] [facility] 2021-07-13 00:00:00 2021-07-13 00:00:00 OFFICE VISIT ESTAB PT LEVEL 4 STLMLC STLC [id number] [facility] 2021-07-13 00:00:00 2021-07-13 00:00:00 Letter (Out) Pratima Wu [facility] [employer]IRY [employer] [facility]ILD [facility] 1.2.840.114 350.1.13.10 4.2.7.2.686 [id number] [facility] 2021-07-13 00:00:00 2021-07-13 00:00:00 Telephone Pratima Wu [facility] DAIRY [employer] CONSULT[employer] [facility] & CHILD [facility] 1.2.840.114 350.1.13.10 4.2.7.2.686 [id number] [facility] 2021-07-03 01:43:00 2021-07-03 01:43:00 Outpatient [facility] [id number] [facility] 2021-06-14 00:00:00 2021-06-14 00:00:00 (TEL) STLMLC STLC [id number] [facility] 2021-06-04 14:00:00 2021-06-04 15:49:40 Outpatient R MARY SANCHEZ [facility] [id number] [facility] 2021-06-04 14:00:00 2021-06-04 14:20:00 Urgent Care Mary Sanchez Jessica [facility] MEDICAL OFFICE BUILDING 1.2.840.114 350.1.13.10 4.2.7.2.686 [id number] [facility] 2021-05-19 00:00:00 2021-05-19 00:00:00 OFFICE VISIT EST PT LEVEL 3 STLMLC STLMLC [id number] [facility] 2021-04-12 00:00:00 2021-04-12 00:00:00 Letter (Out) Zakiya Multani [facility] 1.840.114 350.1.13.10 4.2.7.2.686 [id number] [facility] 2021-04-11 11:15:00 2021-04-11 11:30:00 Laboratory Only Only, Ang Db Test Franki [facility] 1.2.840.114 350.1.13.10 4.2.7.2.686 [id number] [facility] 2021-04-11 11:15:00 2021-04-11 11:15:00 Outpatient R FRANKI MILEY [facility] [id number] [facility] 2021-04-11 00:00:00 2021-04-11 00:00:00 Orders Only Doctor Unassigned, [place] [facility] 1.2840.114 350.1.13.10 4.2.7.2.686 [id number] [facility] 2021-04-08 00:00:00 2021-04-08 00:00:00 Patient Secure Msg Doctor Unassigned, [place] [facility] 1.20.114 350.1.13.10 4.2.7.2.686 [id number] [facility] 2021-03-21 00:00:00 2021-03-21 00:00:00 OFFICE VISIT ESTAB PT LEVEL 4 [facility]C [facility] [id number] [facility] 2021-03-20 00:00:00 2021-03-20 00:00:00 (TEL) [facility] [id number] [facility] 2021-03-17 00:00:00 2021-03-17 00:00:00 Telephone Jeovany Purvis [facility] 1.2840.114 350.1.13.10 4.2.7.2.686 [id number] [facility] 2021-03-13 00:00:00 2021-03-13 00:00:00 Telephone Jeovany Purvis [facility] 1.2840.114 350.1.13.10 4.2.7.2.686 [id number] [facility] 2021-03-08 00:00:00 2021-03-08 00:00:00 Transition of Care Tiff Funes [facility] 1.840.114 350.1.13.10 4.2.7.2.686 [id number] [facility] 2021-03-04 20:45:00 2021-03-07 17:42:00 Inpatient CAMILO BALLESTEROS [facility] JENIFFER [id number] [facility] 2021-03-04 20:45:00 2021-03-07 17:42:00 Hospital Encounter Morrical, Camilo Ansari, [facility] 1.840.114 350.1.13.10 4.2.7.2.686 [id number] [facility] 2021-03-04 20:45:00 2021-03-07 17:42:00 Inpatient X CAMILO MORAN [facility] JENIFFER [id number] [facility] 2021-03-04 11:26:00 2021-03-04 12:01:00 Emergency X CLEMENTINA MARROQUIN [facility] ERT [id number] [facility] 2021-03-04 11:26:00 2021-03-04 12:01:00 Emergency Clementina Marroquin [facility] 1.2.840.114 350.1.13.10 4.2.7.2.686 [id number] [facility] 2021-02-28 23:10:00 2021-03-03 12:00:00 Outpatient X PHILLIP DEVI [facility] [id number] [facility] 2021-02-28 23:10:00 2021-03-03 12:00:00 Emergency Lenore Alarcon Jelani [facility] 1.2.840.114 350.1.13.10 4.2.7.2.686 [id number] [facility] 2021-02-28 23:10:00 2021-03-03 12:00:00 Outpatient X PHILLIP DEVI [facility] [id number] [facility] 2021-02-28 00:00:00 2021-02-28 00:00:00 (TEL) STLMLC STLMLC [id number] [facility] 2021-01-09 00:00:00 2021-01-09 00:00:00 OFFICE VISIT ESTAB PT LEVEL 4 STLMLC STLMLC [id number] [facility] 2020-11-10 00:00:00 2020-11-10 00:00:00 Outpatient STLMLC STLMLC [id number] [facility] 2020-10-11 00:00:00 2020-10-11 00:00:00 Outpatient STLMLC STLMLC [id number] [facility] 2020-08-18 00:00:00 2020-08-18 00:00:00 [facility] [id number] [facility] 2020-07-29 00:00:00 2020-07-29 00:00:00 Outpatient STLMLC STLMLC [id number] [facility] 2020-07-18 00:00:00 2020-07-18 00:00:00 Outpatient STLMLC STLMLC [id number] [facility] 2020-07-06 00:00:00 2020-07-06 00:00:00 Outpatient STLMLC STLMLC [id number] [facility] 2020-06-29 00:00:00 2020-06-29 00:00:00 Outpatient STLMLC STLMLC [id number] [facility] 2020-06-23 00:00:00 2020-06-23 00:00:00 Outpatient STLMLC STLMLC [id number] [facility] 2020-06-03 00:00:00 2020-06-03 00:00:00 Outpatient STLMLC STLMLC [id number] [facility] 2020-05-27 00:00:00 2020-05-27 00:00:00 Outpatient STLMLC STLMLC [id number] [facility] 2020-05-11 00:00:00 2020-05-11 00:00:00 Outpatient STLMLC STLMLC [id number] [facility] 2020-04-25 00:00:00 2020-04-25 00:00:00 Outpatient STLMLC STLMLC [id number] [facility] 2020-03-15 00:00:00 2020-03-15 00:00:00 Outpatient STLMLC STLMLC [id number] [facility] 2020-03-14 00:00:00 2020-03-14 00:00:00 Outpatient STLMLC STLMLC [id number] [facility] 2020-03-07 00:00:00 2020-03-07 00:00:00 Outpatient STLMLC STLMLC [id number] [facility] 2020-03-03 17:00:00 2020-03-03 17:00:00 Outpatient R [facility] [id number] [facility] 2020-03-03 14:36:05 2020-03-03 15:04:47 Urgent Care Provider, [facility] Kelly Perez [facility] [id number] [facility] 2020-03-03 14:36:05 2020-03-03 15:04:47 Urgent Care Provider, [facility] [id number] 2020-03-02 00:00:00 2020-03-02 00:00:00 Outpatient STLMLC STLMLC [id number] [facility] 2020-02-29 00:00:00 2020-02-29 00:00:00 Outpatient STLMLC STLMLC [id number] [facility] 2020-02-17 00:00:00 2020-02-17 00:00:00 Outpatient STLMLC STLMLC [id number] [facility] 2020-02-16 00:00:00 2020-02-16 00:00:00 Outpatient STLMLC STLMLC [id number] [facility] 2020-01-18 00:00:00 2020-01-18 00:00:00 Outpatient STLMLC STLMLC [id number] [facility] 2019-12-08 16:40:00 2019-12-08 16:40:00 Outpatient R KARINA GONZALES [facility] [id number] [facility] 2019-12-07 14:00:00 2019-12-07 14:00:00 [facility] [place] [id number] [facility] 2019-12-07 11:54:00 2019-12-07 11:54:00 [facility] [facility] [place] [place] [facility] [id number] [facility] 2019-12-03 13:00:00 2019-12-03 13:00:00 [facility] [id number] [facility] 2019-12-03 08:34:00 2019-12-03 08:34:00 [facility] [place] [place] [facility] [id number] [facility] 2019-12-02 08:44:00 2019-12-02 08:44:00 [facility] [place] [place] [facility] [id number] [facility] 2019-12-01 13:53:00 2019-12-01 13:53:00 [facility] [place] [place] [facility] [id number] [facility] 2019-11-26 14:00:00 2019-11-26 14:00:00 [facility] [place] [place] [facility] [id number] [facility] 2019-11-24 00:00:00 2019-11-24 00:00:00 Refill Jennifer Sher [facility] 1.2.840.114 350.1.13.10 4.2.7.2.686 [id number] [facility] 2019-11-24 00:00:00 2019-11-24 00:00:00 [place] [id number] 350.1.13.10 4.2.7.2.686 [id number] [id number] 2019-11-18 13:45:00 2019-11-18 13:45:00 Outpatient [facility] [id number] [facility] 2019-11-17 10:00:00 2019-11-17 23:59:00 Hospital Encounter Radiology [facility] 1.2.840.114 350.1.13.10 4.2.7.2.686 [id number] [facility] 2019-11-17 10:00:00 2019-11-17 23:59:00 Hospital Encounter Radiology [facility] 1.2.840.114 350.1.13.10 4.2.7.2.686 [id number] 2019-11-17 00:00:00 2019-11-17 00:00:00 Outpatient R RADIOLOGY [facility] [id number] [facility] 2019-11-17 00:00:00 2019-11-17 00:00:00 Orders Only Doctor Unassigned, [place] [facility] 1.2.840.114 350.1.13.10 4.2.7.2.686 [id number] [facility] 2019-11-17 00:00:00 2019-11-17 00:00:00 Orders Only Doctor Unassigned, [place] [facility] 1.2.840.114 350.1.13.10 4.2.7.2.686 [id number] 2019-11-16 13:15:00 2019-11-16 13:15:00 Outpatient [facility] [id number] [facility] 2019-11-09 15:00:00 2019-11-09 15:00:00 Outpatient R JENNIFER SHER [facility] [id number] [facility] 2019-10-09 11:37:00 2019-10-09 11:37:00 Outpatient [facility] [id number] [facility] 2019-10-07 11:38:03 2019-10-07 12:05:01 Urgent Care Provider, [facility] ChrisKelly [facility] 1.2.840.114 350.1.13.10 4.2.7.2.686 [id number] [facility] 2019-10-07 11:38:03 2019-10-07 12:05:01 Urgent Care Provider, [facility] 1.2.840.114 350.1.13.10 4.2.7.2.686 [id number] 2019-10-07 11:40:00 2019-10-07 11:40:00 Outpatient KELLY DAVID [facility] [id number] [facility] 2019-10-06 00:00:00 2019-10-06 00:00:00 Orders Only Doctor Unassigned, [place] [facility] 1.2.840.114 350.1.13.10 4.2.7.2.686 [id number] [facility] 2019-10-06 00:00:00 2019-10-06 00:00:00 Orders Only Doctor Unassigned, [place] [facility] 1.2.840.114 350.1.13.10 4.2.7.2.686 [id number] 2019-09-23 13:15:00 2019-09-23 13:15:00 Outpatient [facility] Medicine [facility] Medicine [id number] [facility] 2019-09-17 16:41:00 2019-09-17 16:41:00 [facility] Medicine [id number] [facility] 2019-07-27 10:13:00 2019-07-27 10:13:00 Outpatient [facility] Medicine [facility] Medicine [id number] [facility] 2019-07-24 10:00:00 2019-07-24 10:00:00 [facility] [id number] [facility] 2019-07-06 08:54:00 2019-07-06 08:54:00 [facility] [id number] [facility] 2019-06-29 10:28:00 2019-06-29 10:28:00 [facility] [id number] [facility] 2019-06-24 14:42:00 2019-06-24 14:42:00 [facility] [id number] [facility] 2019-06-18 11:23:00 2019-06-18 11:23:00 [facility] [id number] [facility] 2019-06-18 08:19:00 2019-06-18 08:19:00 [facility] [id number] [facility] 2019-06-16 13:45:00 2019-06-16 13:45:00 [facility] [id number] [facility] 2019-06-11 13:06:23 2019-06-11 16:30:00 Emergency Lenore Alarcon [facility] 1.2.840.114 350.1.13.10 4.2.7.2.686 [id number] [facility] 2019-06-11 13:06:23 2019-06-11 16:30:00 Emergency X LENORE ALARCON [facility] [id number] [facility] 2019-06-11 13:06:23 2019-06-11 16:30:00 Emergency X LENORE ALARCON [facility] ERT [id number] [facility] 2019-06-11 13:06:23 2019-06-11 16:30:00 Emergency Lenore Alarcon [facility] 1.2.840.114 350.1.13.10 4.2.7.2.686 [id number] 2019-06-07 15:32:13 2019-06-07 16:50:00 Emergency Sabra Sorto [facility] 1.2.840.114 350.1.13.10 4.2.7.2.686 [id number] [facility] 2019-06-07 15:32:13 2019-06-07 16:50:00 Emergency X SABRA SORTO [facility] ERT [id number] [facility] 2019-06-07 15:32:2019-06-07 16:50:00 Emergency X SABRA SORTO [facility] ERT [id number] [facility] 2019-06-07 15:32:13 2019-06-07 16:50:00 Emergency Sabra Sorto [facility] 1.2.840.114 350.1.13.10 4.2.7.2.686 [id number] 2019-06-07 00:00:00 2019-06-07 00:00:00 Orders Only Doctor Unassigned, [place] [facility] 1.2.840.114 350.1.13.10 4.2.7.2.686 [id number] [facility] 2019-06-07 00:00:00 2019-06-07 00:00:00 Orders Only Doctor Unassigned, [place] [facility] 1.2.840.114 350.1.13.10 4.2.7.2.686 [id number] 2019-06-02 14:30:00 2019-06-02 14:30:00 Outpatient [facility] [id number] [facility] 2019-06-01 13:24:00 2019-06-01 13:24:00 [facility] [facility] [id number] [facility] 2019-05-28 18:41:42 2019-05-28 20:29:00 Emergency [facility] 1.2.840.114 350.1.13.10 4.2.7.2.686 [id number] [facility] 2019-05-28 18:41:42 2019-05-28 20:29:00 Emergency [facility] 1.2.840.114 350.1.13.10 4.2.7.2.686 [id number] 2019-05-26 15:00:00 2019-05-26 15:00:00 [facility] [id number] [facility] 2019-04-30 10:17:00 2019-04-30 10:17:00 [facility] [id number] [facility] 2019-04-30 08:15:00 2019-04-30 08:15:00 [facility] [id number] [facility] 2019-04-24 10:15:00 2019-04-24 10:15:00 [facility] [id number] [facility] 2019-03-26 16:00:00 2019-03-26 16:00:00 [facility] [id number] [facility] 2019-02-26 09:01:00 2019-02-26 09:01:00 [facility] [id number] [facility] 2019-02-13 15:50:00 2019-02-13 15:50:00 [facility] [id number] [facility] 2019 14:30:00 2019 14:30:00 Outpatient [facility] [id number] [facility] 2019-01-02 17:15:03 2019-01-02 19:16:00 Emergency [facility] 1.2.840.114 350.1.13.10 4.2.7.2.686 [id number] [facility] 2019-01-02 17:15:03 2019-01-02 19:16:00 [facility] 1.2.840.114 350.1.13.10 4.2.7.2.686 [id number] 2019-01-02 00:00:00 2019-01-02 00:00:00 Orders Only Doctor Unassigned, [place] [facility] 1.2.840.114 350.1.13.10 4.2.7.2.686 [id number] [facility] 2019-01-02 00:00:00 2019-01-02 00:00:00 Orders Only Doctor Unassigned, [place] [facility] 1.2.840.114 350.1.13.10 4.2.7.2.686 [id number] [id number] 2018-12-31 14:17:00 2018-12-31 14:17:00 Outpatient [facility] [id number] [facility] 2018-12-29 09:44:07 2018-12-29 09:59:07 Office Visit Eliezer Watts [facility] [place] 1.2.840.114 350.1.13.10 4.2.7.2.686 [id number] [facility] 2018-12-29 09:44:07 2018-12-29 09:59:07 Office Visit Eliezer Watts [facility] [place] 1.2.840.114 350.1.13.10 4.2.7.2.686 [id number] 2018-12-29 00:00:00 2018-12-29 00:00:00 Letter (Out) Eliezer Watts SWEETIE Rosanne [place] [place] 1.2.840.114 350.1.13.10 4.2.7.2.686 [id number] [facility] 2018-12-24 16:06:07 2018-12-24 23:59:00 Hospital Encounter Radiology [facility] 1.2.840.114 350.1.13.10 4.2.7.2.686 [id number] [facility] 2018-12-24 10:45:00 2018-12-24 10:45:00 [facility] [place] [place] [facility] [id number] [facility] 2018-12-24 00:00:00 2018-12-24 00:00:00 Orders Only Doctor Unassigned, [place] [facility] 1.2.840.114 350.1.13.10 4.2.7.2.686 [id number] [facility] 2018-12-09 15:05:00 2018-12-09 15:05:00 [facility] [place] [place] [facility] [id number] [facility] 2018-12-08 13:15:00 2018-12-08 13:15:00 [facility] [place] [place] [facility] [id number] [facility] 2018-11-26 16:19:00 2018-11-26 16:19:00 [facility] [place] [place] [facility] [id number] [facility] 2018-11-18 09:00:00 2018-11-18 09:00:00 [facility] [place] [place] [facility] [id number] [facility] 2018-11-15 13:23:07 2018-11-15 13:57:49 Urgent Care Jayden Leahy, Attending [facility] shaina Geller 1.2.840.114 350.1.13.10 4.2.7.2.686 [id number] [facility] 2018-10-24 16:15:00 2018-10-24 16:15:00 [facility] [id number] [facility] 2018-10-21 14:30:00 2018-10-21 14:30:00 [facility] [id number] [facility] 2018-08-22 09:30:00 2018-08-22 09:30:00 [facility] [id number] [facility] 2018-08-16 11:37:00 2018-08-16 11:37:00 [facility] [id number] [facility] 2018-08-14 08:30:00 2018-08-14 08:30:00 [facility] [id number] [facility] 2018-08-13 15:15:00 2018-08-13 15:15:00 [facility] [id number] [facility] 2018-07-23 15:00:00 2018-07-23 15:00:00 [facility] [id number] [facility] 2018-06-23 13:45:00 2018-06-23 13:45:00 [facility] [place] [place] [facility] [id number] [facility] 2018-06-09 11:19:00 2018-06-09 11:19:00 [facility] [id number] [facility] 2018-06-03 08:02:00 2018-06-03 08:02:00 [facility] [id number] [facility] 2018-06-02 09:30:00 2018-06-02 09:30:00 [facility] [id number] [facility] 2018-05-21 15:00:00 2018-05-21 15:00:00 [facility] [id number] [facility] 2018-05-09 08:22:00 2018-05-09 08:22:00 [facility] [id number] [facility] 2018-04-24 15:45:00 2018-04-24 15:45:00 [facility] [id number] [facility] 2018-04-04 09:15:00 2018-04-04 09:15:00 [facility] [id number] [facility] 2018-04-02 14:30:00 2018-04-02 14:30:00 [facility] [id number] [facility] 2018-01-28 13:00:00 2018-01-28 13:00:00 [facility] [place] [place] [facility] [id number] [facility] Results Test Description Test Time Test Comments Results Result Co mments Source [facility]XR WRIST 3+ VW [id number] 16:05:56EXAM: XR WRIST 3+ VW RIGHT HISTORY: rt wrist fx ? COMPARISON: Right [facility] [id number] 20:33:00* Test Item Value Reference Range Interpretation Comme nts POCT PREG (test code = 1605) Negative On board controls acceptable with C Line (test code = 3574) Yes POCT PREG LOT # (test code = 3575) [id number] POCT PREG TEST DATE ( test code = 3576) 03/03/2025 Lab Interpretation (test cod e = 32071-4) Normal [facility] WITH [id number] 20:22:54* Test Item Value Reference Range Interpretation Comme nts WBC (test code = 6690-2) 7.60 4.30-11.10 RBC (test code = 789-8) 3.72 3.93-5.25 L HGB (test code = 718-7) 12.0 g/dL 11.6-15.0 HCT (test code = 4544-3) 35.1 % 35.7-45.2 L MCV (test code = 787-2) 94.4 fL 80.6-95.5 MCH (test code = 785-6) 32.3 pg 25.9-32.8 MCHC (test code = 786-4) 34.2 g/dL 31.6-35.1 RDW-SD (test code = 39508-7) 41.4 fL 39.0-49.9 RDW-CV (test code = 788-0) 11.9 % 12.0-15.5 L PLT (test code = 777-3) 143 166-358 L MPV (test code = 32933-9) 9.5 fL 9.5-12.9 IPF % (test code = 2351367355) 3.4 % 1.3-7.7 Platelet count measured by fluorescence method. NRBC/100 WBC (test code = 8376835108) 0.0 0.0-10.0 NRBC x10^3 (test code = 6974590558) See_Comment [Automated UBIKODa ge] The system which generated this result transmitted reference range: 10*3/?L. The reference range was not used to interpret this result as normal/abnormal. GRAN MAT (NEUT) % (test code = 770-8) 65.3 % IMM GRAN % (test code = 3479363436) 0.40 % LYMPH % (test code = 736-9) 27.2 % MONO % (test code = 5905-5) 6.2 % EOS % (test code = 713-8) 0.5 % BASO % (test code = 706-2) 0.4 % GRAN MAT x10^3(ANC) (test code = 5726621607) 4.96 10*3/uL 1.88-7.09 IMM GRAN x10^3 (test code = 2190554658) 0.03 10*3/uL 0.00-0.06 LYMPH x10^3 (test code = 731-0) 2.07 10*3/uL 1.32-3.29 MONO x10^3 (test code = 742-7) 0.47 10*3/uL 0.33-0.92 EOS x10^3 (test code = 711-2) 0.04 10*3/uL 0.03-0.39 BASO x10^3 (test code = 704-7) 0.03 10*3/uL 0.01-0.07 Lab Interpretation (test code = 84918-5) Abnormal [facility] CenterETHANOL2024-08-18 20:07:11 ALCOHOL<10mg/dL12/08/2023 3:07 PM [facility]<10 Gbohlumi46-913 Toxic>100 Depression of DECORATIVE CUTTING MACHINE TENDER>400 Fatalities ReportedUnCHRISTUS Mother Frances Hospital – TylerMagnesium2024-08-18 20:07:06* Test Item Value Reference Range Interpretation Comme nts MAGNESIUM (test code = 6944458316) 1.1 mg/dL 1.7-2.4 L Lab Interpretation (test cod e = 05438-9) Abnormal [facility] CenterCOMP. METABOLIC PANEL (23503)2023-12-08 19:58:38* Test Item Value Reference Range Interpretation Comme nts NA (test code = 2309596395) 136 mmol/L 135-145 K (test code = 9245263040) 3.5 mmol/L 3.5-5.0 CL (test code = 3907343212) 97 mmol/L 98-108 L CO2 TOTAL (test code = 6770668819) 28 mmol/L 23-31 AGAP (test code = 9499136223) 11 2-16 BUN (test code = 3983038862) 9 mg/dL 7-23 GLUCOSE (test code = 8751237857) 113 mg/dL 70-110 H CREATININE (test code = 2160-0) 0.52 mg/dL 0.50-1.04 TOTAL BILI (test code = 8900807264) 1.5 mg/dL 0.1-1.1 H CALCIUM (test code = 4797338889) 9.3 mg/dL 8.6-10.6 T PROTEIN (test code = 3874843016) 8.6 g/dL 6.3-8.2 H ALBUMIN (test code = 8598809203) 4.7 g/dL 3.5-5.0 ALK PHOS (test code = 2886892762) 138 U/L 34-122 H ALTv (test code = 1742-6) 32 U/L 5-35 AST(SGOT) (test code = 3042540508) 71 U/L 13-40 H eGFR (test code = 43479-4) 126.0 mL/min/1.73m2 CKD-EPI eGFR (2020). Assuming creatinine has been stable day-to-day for at least three months, the eGFR indicates Category G1 (>= 90 mL/min/1.73 m2) Lab Interpretation (test code = 40974-9) Abnormal [facility] CenterLIPASE2024-08-18 19:58:18* Test Item Value Reference Range Interpretation Comme nts LIPASE (test code = 0812172995) 122 U/L 0-220 Lab Interpretation (test cod e = 11050-8) Normal [facility] CenterAC Panel 21 + Lactic [id number] 19:41:27* Test Item Value Reference Range Interpretation Comme nts PH (test code = 0037470354) 7.45 7.32-7.42 H PCO2 TONY (test code = 6394082374) 41 41-51 PO2 TONY (test code = 3032175020) 32 25-40 HCO3 TONY (test code = 6851265415) 28 24-28 AC VBE(BEAKER) (test code = 7384739563) 3.6 mEq/L THB TONY (test code = 6983889184) 12.6 g/dL 12.0-16.0 %O2HB TONY (test code = 7128731206) 61.7 % 52.0-63.0 %COHB TONY (test code = 6914637754) 0.1 % 0.0-1.5 %METHB TONY (test code = 8339576630) 0.5 % 0.4-1.5 VOL%O2 TONY (test code = 3137426774) 10.9 % 6.0-12.0 NA (test code = 0600246789) 138 mmol/L 135-145 K+ (test code = 2134405212) 3.7 mmol/L 3.5-5.0 AC CA IONZ (test code = 1670611955) 4.50 mg/dL 4.50-5.30 GLUCOSE (test code = 4501282250) 101 mg/dL 70-110 LACTIC ACID (test code = 8665540005) 1.63 mmol/L 0.50-2.20 Lab Interpretation (test cod e = 00727-4) Abnormal [facility] CenterEthanol2024-08-16 09:16:23* Test Item Value Reference Range Interpretation Comme nts ALCOHOL (test code = 6145335906) 186 mg/dL JASMYN (test code = JASMYN) <10 Mrhjxvrz86-680 Toxic>100 Depression of DECORATIVE CUTTING MACHINE TENDER>[address] [facility] CenterPOCT [id number] 03:09:00* Test Item Value Reference Range Interpretation Comme nts POCT PREG (test code = 1605) Negative On board controls acceptable with C Line (test code = 3574) Yes POCT PREG LOT # (test code = 3575) [id number] POCT PREG TEST DATE ( test code = 3576) 2025-03-03 Lab Interpretation (test cod e = 62344-8) Normal [facility] BHCG (QUANTITATIVE)2023-11-22 18:44:22 BETA HCG<2.39Non- female and male patients: <5 mIU/mL11/22/2023 1:44 PM [facility] Gestational Age ?Range (mIU/mL) 1-10 ?Weeks ?34-32861647-19 Weeks ?17706-78331214-60 Weeks ?2591-00261154-60 Weeks ?5361-637558 Biotin has been reported to cause a negative bias, interpret results relative to patient's use of biotin.[facility] TROPONIN [id number] 18:34:01* Test Item Value Reference Range Interpretation Comme nts TROPONIN I (test code = 4024570822) 0.006 ng/mL <=0.034 JASMYN (test code = JASMYN) Reference (Normal) Range (defined by the 99th percentile reference limit): <= 0.034 ng/mL Note: Cardiac troponin begins to rise 3-4 hours after the onset of ischemia. Repeat in 4-6 hours if the sample was drawn within 3-4 hours of the onset of the symptom and found normal. Diagnosis of myocardial injury is made with acute changes in cTn concentrations with at least one serial sample above the 99th percentile upper reference limit (URL), taken together with the patient's clinical presentation. Biotin has been reported to cause a negative bias, interpret results relative to patient's use of biotin. Lab Interpretation (test code = 87899-3) Normal [facility] CenterCT HEAD WO [id number] 18:28:32FULL RESULT: Examination: CT HEAD WO CONTRAST, CT CERVICAL SPINE WO CONTRAST on :17 PM Clinical Indication: Fell, EtOH Comparison: Head CT 11/08/2023 Technique: Noncontrast imaging was obtained through the brain and cervicalspine. Findings: The sulci and ventricles were unchanged. There is no evidence ofhemorrhage or other clearly acute or traumatic intracranial process, andthere was no skull fracture. With respect to the cervical spine, there is some straightening oflordosis, but no intrinsic bony lesion, fracture or traumatic malalignment.[facility] CenterCT [facility] SPINE WO CONTRAST 2023-11-22 18:28:32FULL RESULT: Examination: CT HEAD WO CONTRAST, CT CERVICAL SPINE WO CONTRAST on :17 PM Clinical Indication: Fell, EtOH Comparison: Head CT 11/08/2023 Technique: Noncontrast imaging was obtained through the brain and cervicalspine. Findings: The sulci and ventricles were unchanged. There is n o evidence ofhemorrhage or other clearly acute or traumatic intracranial process, andthere was no skull fracture. With respect to the cervical spine, there is some straightening oflordosis, but no intrinsic bony lesion, fracture or traumatic malalignment.[facility] CenterD-Wlunf1871-12-33 18:25:38* Test Item Value Reference Range Interpretation Comments D-DIMER (test code = 2307401873) 0.36 See_Comment [Automated message] The system which generated this result transmitted reference range: <0.50 ?g/mL (FEU). The reference range was not used to interpret this result as normal/abnormal. JASMYN (test code = JASMYN) This test may be used in conjunction with a clinical pretest probability (PTP) assessment model to exclude venous thromboembolism (VTE) in patients suspected of deep venous thrombosis (DVT) and pulmonary embolism (PE) A D-Dimer value less than 0.50 ?g/ml (FEU) has a negative predicative value of 96 to 100% (95% CI)and 97 to 100% (95% CI) as an aid in the diagnosis of deep vein thrombosis (DVT) and pulmonary embolism when there is low or moderate pretest probability of PE or DVT. D-Dimer values are expressed in initial fibrinogen equivalent units (FEU)" The assay results should be used with other information, including the clinical context, in forming a diagnosis. Lab Interpretation (test code = 90670-4) Normal [facility] CenterETHANOL2024-08-02 18:23:36 ALCOHOL<10mg/dL11/22/2023 1:23 PM [facility]<10 Mfkutwcg88-524 Toxic>100 Depression of DECORATIVE CUTTING MACHINE TENDER>400 Fatalities ReportedUnCHRISTUS Mother [facility] – TylerCOMP. METABOLIC PANEL (83261)2023-11-22 18:22:35* Test Item Value Reference Range Interpretation Comme nts NA (test code = 1482865169) 136 mmol/L 135-145 K (test code = 8957416605) 4.4 3.5-5.0 CL (test code = 1937155086) 100 mmol/L 98-108 CO2 TOTAL (test code = 7938288971) 24 mmol/L 23-31 AGAP (test code = 0784782439) 12 2-16 BUN (test code = 3447802926) 18 mg/dL 7-23 GLUCOSE (test code = 2323429917) 89 mg/dL 70-110 CREATININE (test code = 2160-0) 0.71 mg/dL 0.50-1.04 TOTAL BILI (test code = 6859800988) 0.8 mg/dL 0.1-1.1 CALCIUM (test code = 1880686750) 9.4 mg/dL 8.6-10.6 T PROTEIN (test code = 0975179795) 8.0 g/dL 6.3-8.2 ALBUMIN (test code = 0693740528) 4.4 g/dL 3.5-5.0 ALK PHOS (test code = 2760723080) 93 U/L 34-122 ALTv (test code = 1742-6) 32 U/L 5-35 AST(SGOT) (test code = 3289126792) 46 U/L 13-40 H eGFR (test code = 46492-8) 115.3 mL/min/1.73m2 CKD-EPI eGFR (2020). Assuming creatinine has been stable day-to-day for at least three months, the eGFR indicates Category G1 (>= 90 mL/min/1.73 m2) Lab Interpretation (test code = 27087-6) Abnormal [facility] CenterLIPASE2024-08-02 18:22:15* Test Item Value Reference Range Interpretation Comme nts LIPASE (test code = 3149386404) 75 U/L 0-220 Lab Interpretation (test cod e = 88329-3) Normal [facility] WITH YHYR1897-17-72 18:10:56* Test Item Value Reference Range Interpretation Comme nts WBC (test code = 6690-2) 7.44 4.30-11.10 RBC (test code = 789-8) 3.21 3.93-5.25 L HGB (test code = 718-7) 10.8 g/dL 11.6-15.0 L HCT (test code = 4544-3) 32.3 % 35.7-45.2 L MCV (test code = 787-2) 100.6 fL 80.6-95.5 H MCH (test code = 785-6) 33.6 pg 25.9-32.8 H MCHC (test code = 786-4) 33.4 g/dL 31.6-35.1 RDW-SD (test code = 77397-6) 48.7 fL 39.0-49.9 RDW-CV (test code = 788-0) 13.1 % 12.0-15.5 PLT (test code = 777-3) 227 166-358 MPV (test code = 34451-7) 10.3 fL 9.5-12.9 NRBC/100 WBC (test code = 8668160534) 0.0 0.0-10.0 NRBC x10^3 (test code = 8181895459) See_Comment [Automated messa ge] The system which generated this result transmitted reference range: 10*3/?L. The reference range was not used to interpret this result as normal/abnormal. GRAN MAT (NEUT) % (test code = 770-8) 72.0 % IMM GRAN % (test code = 2275951675) 0.40 % LYMPH % (test code = 736-9) 13.8 % MONO % (test code = 5905-5) 12.5 % EOS % (test code = 713-8) 0.4 % BASO % (test code = 706-2) 0.9 % GRAN MAT x10^3(ANC) (test code = 6797572958) 5.35 10*3/uL 1.88-7.09 IMM GRAN x10^3 (test code = 9912973123) 0.03 10*3/uL 0.00-0.06 LYMPH x10^3 (test code = 731-0) 1.03 10*3/uL 1.32-3.29 L MONO x10^3 (test code = 742-7) 0.93 10*3/uL 0.33-0.92 H EOS x10^3 (test code = 711-2) 0.03 10*3/uL 0.03-0.39 BASO x10^3 (test code = 704-7) 0.07 10*3/uL 0.01-0.07 Lab Interpretation (test code = 41136-6) Abnormal [facility] JAUN3929-07-51 04:25:00* Test Item Value Reference Range Interpretation Comme nts POCT PREG (test code = 1605) Negative On board controls acceptable with C Line (test code = 3574) Yes POCT PREG LOT # (test code = 3575) [id number] POCT PREG TEST DATE ( test code = 3576) 2024-08-29 Lab Interpretation (test cod e = 15960-6) Normal [facility] CenterVitamin B12, Nsqnq1014-91-33 19:32:47* Test Item Value Reference Range Interpretation Comme nts VIT B12 (test code = 0846540701) 541 pg/mL 240-930 JASMYN (test code = JASMYN) Biotin has been reported to cause a positive bias, interpret results relative to patient's use of biotin. Lab Interpretation (test code = 32725-1) Normal [facility] CenterFolate2024-07-19 19:32:47* Test Item Value Reference Range Interpretation Comme nts FOLATE SER (test code = 4998808184) 5.0 ng/mL 3.0-20.0 Biotin has been reported to cause a positive bias, interpret results relative to patient's use of biotin. Lab Interpretation (test code = 73678-8) Normal [facility] CenterCT HEAD WO JUNCVDBF3348-69-47 16:36:26EXAM: CT HEAD WO CONTRAST HISTORY: 33 years-old Female; Provided indication: Headache, new orworsening, neuro deficit (Age 18-49y) . [facility] obtained from [facility]:"Patient admitted for alcohol withdrawal, now with worsening headache" TECHNIQUE: Axial CT of the head was performed and reconstructed at 5mmintervals. Coronal and sagittal reformatted images were generated. COMPARISON: CT maxillofacial with contrast from 04/12/2022 FINDINGS: The ventricles and cerebral sulci are normal in caliber and configuration.No midline shift or pathological extra-axial fluid collection is present.The basal cisterns are unremarkable. No acute intracranial hemorrhage or significant mass effect is visualized.No parenchymal attenuation abnormality is seen. The desai-white matterdifferentiation is preserved. The calvarium and central skull base are unremarkable. The mastoid aircells and visualized paranasal airsinuses are clear.[facility] CenterMagnesium2024-07-19 10:13:17* Test Item Value Reference Range Interpretation Comme nts MAGNESIUM (test code = 4981917255) 1.6 mg/dL 1.7-2.4 L Lab Interpretation (test cod e = 33582-6) Abnormal [facility] CenterBasic Metabolic Panel (NA, K, CL, CO2, GLUCOSE, BUN, CREATININE, CA)2023-11-08 10:13:02* Test Item Value Reference Range Interpretation Comme nts NA (test code = 4915021160) 135 mmol/L 135-145 K (test code = 7453950333) 3.2 mmol/L 3.5-5.0 L CL (test code = 9489711003) 98 mmol/L 98-108 CO2 TOTAL (test code = 4011932255) 29 mmol/L 23-31 AGAP (test code = 4976840898) 8 2-16 BUN (test code = 9487687373) 5 mg/dL 7-23 L GLUCOSE (test code = 7658500641) 113 mg/dL 70-110 H CREATININE (test code = 2160-0) 0.50 mg/dL 0.50-1.04 CALCIUM (test code = 4579178348) 8.9 mg/dL 8.6-10.6 eGFR (test code = 28082-6) 127.2 mL/min/1.73m2 CKD-EPI eGFR (2020). Assuming creatinine has been stable day-to-day for at least three months, the eGFR indicates Category G1 (>= 90 mL/min/1.73 m2) Lab Interpretation (test code = 60925-3) Abnormal [facility] CenterHepatic Function Panel (82928) (ALB,T.PRO,BILI T,BU/BC,ALT,AST,ALK PHOS)2023-11-08 10:13:02* Test Item Value Reference Range Interpretation Comme nts TOTAL BILI (test code = 3663904401) 1.3 mg/dL 0.1-1.1 H BILI UNCON (test code = 1437335829) 0.5 mg/dL 0.1-1.1 BILI CONJ (test code = 2036836204) 0.0 mg/dL 0.0-0.3 T PROTEIN (test code = 7934726023) 7.0 g/dL 6.3-8.2 ALBUMIN (test code = 8066768205) 4.0 g/dL 3.5-5.0 ALK PHOS (test code = 4102578062) 201 U/L 34-122 H ALTv (test code = 1742-6) 111 U/L 5-35 H AST(SGOT) (test code = 2569698158) 426 U/L 13-40 H Lab Interpretation (test cod e = 20145-8) Abnormal [facility] CenterPhosphorus2024-07-19 10:13:01* Test Item Value Reference Range Interpretation Comme nts PHOSPHORUS (test code = 1524110959) 1.3 mg/dL 2.5-5.0 L Lab Interpretation (test cod e = 24615-1) Abnormal [facility] CenterCbc without Kiuo3329-53-31 09:41:55* Test Item Value Reference Range Interpretation Comme nts WBC (test code = 6690-2) 2.89 4.30-11.10 L RBC (test code = 789-8) 3.12 3.93-5.25 L HGB (test code = 718-7) 10.5 g/dL 11.6-15.0 L HCT (test code = 4544-3) 31.0 % 35.7-45.2 L MCH (test code = 785-6) 33.7 pg 25.9-32.8 H MCV (test code = 787-2) 99.4 fL 80.6-95.5 H MCHC (test code = 786-4) 33.9 g/dL 31.6-35.1 PLT (test code = 777-3) 160 166-358 L MPV (test code = 57878-0) 9.9 fL 9.5-12.9 RDW-CV (test code = 788-0) 13.2 % 12.0-15.5 RDW-SD (test code = 10089-0) 48.1 fL 39.0-49.9 NRBC x10^3 (test code = 9817413672) See_Comment [Automated messa ge] The system which generated this result transmitted reference range: 10*3/?L. The reference range was not used to interpret this result as normal/abnormal. NRBC/100 WBC (test code = 2223124875) 0.0 0.0-10.0 IPF % (test code = 2118252148) Lab Interpretation (test code = 17054-9) Abnormal [facility] CenterLactic Acid Whole Ohjti4398-18-97 07:27:21* Test Item Value Reference Range Interpretation Comme nts LACTIC ACID (test code = 9356239695) 2.14 mmol/L 0.50-2.20 Lab Interpretation (test cod e = 92000-5) Normal [facility] CenterAcute Care Venous Blood Shw4318-04-11 01:17:39 * Test Item Value Reference Range Interpretation Comme nts PH (test code = 1540876403) 7.28 7.32-7.42 L PCO2 TONY (test code = 7347342743) 35 41-51 L PO2 TONY (test code = 1810399819) 32 25-40 HCO3 TONY (test code = 4659983781) 16 24-28 L AC VBE(BEAKER) (test code = 6745434305) -9.8 mEq/L Lab Interpretation (test cod e = 38503-7) Abnormal [facility] CenterLactic Acid Whole Dmgix6556-57-66 01:07:01* Test Item Value Reference Range Interpretation Comme nts LACTIC ACID (test code = 6551371948) 3.31 mmol/L 0.50-2.20 H Lab Interpretation (test cod e = 62177-5) Abnormal [facility] CenterCritical Kajq2393-56-57 20:43:53Krista Cabrera MD ? ? 11/06/2023 ?3:43 PMCritical Care Performed by: Krista Cabrera MDAuthorizedby: Krista Cabrera MD ?Critical care provider statement: ?Critical care time (minutes): ?60 ?Critical care time was exclusive of: ?Separately billable procedures and treating other patients and teaching time ?Critical care was necessary to treat or prevent imminent or life-threatening deterioration of the following conditions: ?Metabolic crisis ?Critical care was time spent personally by me on the following activities: ?Development of treatment plan with patient or surrogate, evaluation of patient's response to treatment, examination of patient, obtaining history from patient or surrogate, ordering and performing treatments and interventions, ordering and review of laboratory studies, ordering and review of radiographic studies, pulse oximetry, re- evaluation of patient's condition and review of old charts ?Care discussed with: admitting provider ?Comments: ? Due to a high probability of clinically significant, life threatening deterioration, the patient required my highest level of preparedness to intervene emergently and I personally spent this critical care time directly and personally managing the patient. This critical care time included obtaining a history; examining the patient; pulse oximetry; ordering and review of studies; arranging urgent treatment with development of a management plan; evaluation of patient's response to treatment; frequent reassessment; and, discussions with other providers.This critical care time was performed to assess and manage the high probability of imminent, life- threatening deterioration that could result in multi-organ failure. It was exclusive of separately billable procedures and treating other patients. [facility] CenterTROPONIN I6399-47-22 19:33:09* Test Item Value Reference Range Interpretation Comme nts TROPONIN I (test code = 3961276165) 0.004 ng/mL <=0.034 JASMYN (test code = JASMYN) Reference (Normal) Range (defined by the 99th percentile reference limit): <= 0.034 ng/mL Note: Cardiac troponin begins to rise 3-4 hours after the onset of ischemia. Repeat in 4-6 hours if the sample was drawn within 3-4 hours of the onset of the symptom and found normal. Diagnosis of myocardial injury is made with acute changes in cTn concentrations with at least one serial sample above the 99th percentile upper reference limit (URL), taken together with the patient's clinical presentation. Biotin has been reported to cause a negative bias, interpret results relative to patient's use of biotin. Lab Interpretation (test code = 34775-2) Normal [facility] CenterETHANOL2024-07-17 19:33:09* Test Item Value Reference Range Interpretation Comme nts ALCOHOL (test code = 8202430232) 363 mg/dL JASMYN (test code = JASMYN) <10 Ymhxquyy62-866 Toxic>100 Depression of DECORATIVE CUTTING MACHINE TENDER>[address] [facility] CenterN-TERMINAL WMI-PCC6815-71-17 19:30:31* Test Item Value Reference Range Interpretation Comme nts NT-proBNP (test code = 42188-8) 108 pg/mL <=125 Lab Interpretation (test cod e = 87220-9) Normal [facility] CenterPOCT RAIM4884-95-15 19:25:00* Test Item Value Reference Range Interpretation Comme nts POCT PREG (test code = 1605) Negative On board controls acceptable with C Line (test code = 3574) Yes POCT PREG LOT # (test code = 3575) [id number] POCT PREG TEST DATE ( test code = 3576) 2024-08-27 Lab Interpretation (test cod e = 14296-6) Normal [facility] CenterMagnesium2024-07-17 19:16:32* Test Item Value Reference Range Interpretation Comme nts MAGNESIUM (test code = 5172389409) 2.2 mg/dL 1.7-2.4 Lab Interpretation (test cod e = 22208-2) Normal [facility] CenterCOMP. METABOLIC PANEL (82537)2023-11-06 19:16:12* Test Item Value Reference Range Interpretation Comme nts NA (test code = 9663190958) 141 mmol/L 135-145 K (test code = 2582819721) 4.3 mmol/L 3.5-5.0 CL (test code = 8317717609) 100 mmol/L 98-108 CO2 TOTAL (test code = 6247586282) 14 mmol/L 23-31 L AGAP (test code = 6547243427) 27 2-16 H BUN (test code = 3706334789) 12 mg/dL 7-23 GLUCOSE (test code = 9073308474) 60 mg/dL 70-110 L CREATININE (test code = 2160-0) 0.68 mg/dL 0.50-1.04 TOTAL BILI (test code = 6793975438) 1.4 mg/dL 0.1-1.1 H CALCIUM (test code = 8843728607) 9.0 mg/dL 8.6-10.6 T PROTEIN (test code = 8767672234) 9.7 g/dL 6.3-8.2 H ALBUMIN (test code = 4911572417) 5.4 g/dL 3.5-5.0 H ALK PHOS (test code = 3650334061) 207 U/L 34-122 H ALTv (test code = 1742-6) 79 U/L 5-35 H AST(SGOT) (test code = 8906234211) 154 U/L 13-40 H eGFR (test code = 48734-7) 118.1 mL/min/1.73m2 CKD-EPI eGFR (2020). Assuming creatinine has been stable day-to-day for at least three months, the eGFR indicates Category G1 (>= 90 mL/min/1.73 m2) Lab Interpretation (test code = 59863-0) Abnormal [facility] CenterLIPASE2024-07-17 19:15:46* Test Item Value Reference Range Interpretation Comme nts LIPASE (test code = 7042682277) 117 U/L 0-220 Lab Interpretation (test cod e = 68151-1) Normal [facility] CenterCB WITH ISZT0360-23-35 19:07:27* Test Item Value Reference Range Interpretation Comme nts WBC (test code = 6690-2) 6.36 4.30-11.10 RBC (test code = 789-8) 4.20 3.93-5.25 HGB (test code = 718-7) 14.1 g/dL 11.6-15.0 HCT (test code = 4544-3) 43.7 % 35.7-45.2 MCV (test code = 787-2) 104.0 fL 80.6-95.5 H MCH (test code = 785-6) 33.6 pg 25.9-32.8 H MCHC (test code = 786-4) 32.3 g/dL 31.6-35.1 RDW-SD (test code = 64966-3) 53.5 fL 39.0-49.9 H RDW-CV (test code = 788-0) 13.9 % 12.0-15.5 PLT (test code = 777-3) 345 166-358 MPV (test code = 71880-4) 9.2 fL 9.5-12.9 L NRBC/100 WBC (test code = 1088853834) 0.0 0.0-10.0 NRBC x10^3 (test code = 2028026567) See_Comment [Automated messa ge] The system which generated this result transmitted reference range: 10*3/?L. The reference range was not used to interpret this result as normal/abnormal. GRAN MAT (NEUT) % (test code = 770-8) 57.5 % IMM GRAN % (test code = 2646266904) 0.90 % LYMPH % (test code = 736-9) 29.1 % MONO % (test code = 5905-5) 10.5 % EOS % (test code = 713-8) 0.0 % BASO % (test code = 706-2) 2.0 % GRAN MAT x10^3(ANC) (test code = 9452423034) 3.65 10*3/uL 1.88-7.09 IMM GRAN x10^3 (test code = 6169625518) 0.06 10*3/uL 0.00-0.06 LYMPH x10^3 (test code = 731-0) 1.85 10*3/uL 1.32-3.29 MONO x10^3 (test code = 742-7) 0.67 10*3/uL 0.33-0.92 EOS x10^3 (test code = 711-2) 0.03-0.39 L BASO x10^3 (test code = 704-7) 0.13 10*3/uL 0.01-0.07 H Lab Interpretation (test code = 42012-8) Abnormal [facility] CenterAC PANEL 21 + LACTIC [id number] 18:57:00* Test Item Value Reference Range Interpretation Comme nts PH (test code = 7467406660) 7.16 7.32-7.42 LL PCO2 TONY (test code = 7415626502) 37 41-51 L PO2 TONY (test code = 5040547657) 44 25-40 H HCO3 TONY (test code = 4359831806) 13 24-28 L AC VBE(BEAKER) (test code = 4018970889) -15.1 mEq/L THB TONY (test code = 3122989114) 15.7 g/dL 12.0-16.0 %O2HB TONY (test code = 7078924723) 72.1 % 52.0-63.0 H %COHB TONY (test code = 9319076080) 0.4 % 0.0-1.5 %METHB TONY (test code = 7333414488) 0.3 % 0.4-1.5 L VOL%O2 TONY (test code = 8340798495) 15.9 % 6.0-12.0 H NA (test code = 4138467250) 142 mmol/L 135-145 K+ (test code = 0887184575) 4.2 mmol/L 3.5-5.0 AC CA IONZ (test code = 4372870648) 4.90 mg/dL 4.50-5.30 GLUCOSE (test code = 6210717493) 49 mg/dL 70-110 LL LACTIC ACID (test code = 2016976046) 3.62 mmol/L 0.50-2.20 H Lab Interpretation (test cod e = 15022-8) Abnormal [facility] CenterEthanol2024-07-08 05:06:04* Test Item Value Reference Range Interpretation Comme nts ALCOHOL (test code = 2072367722) 416 mg/dL JASMYN (test code = JASMYN) <10 Zxfucwus84-512 Toxic>100 Depression of DECORATIVE CUTTING MACHINE TENDER>[address] [facility] CenterSalicylate2024-07-08 04:57:31 SALICYLATE<10mg/L10/27/2023 11:57 PM [facility]ORYThe[facility] Range: ? Analgesic and Antipyretic Use ? 20- 100 mg/L ? ? Anti-Inflammatory Use ?100-250 mg/L Toxic Range: ? Greater than 300 mg/LUnCHRISTUS Mother Frances Hospital – TylerAcetaminophen2024-07-08 04:57:16* Test Item Value Reference Range Interpretation Comme nts ACETAMINOP (test code = 6310184231) 10.0-30.0 L JASMYN (test code = JASMYN) Toxic: Greater coreen n 200 ug/mL @ 4 hour post ingestion or greater than 50 ug/mL @ 12 hour post ingestion Lab Interpretation (test code = 26465-3) Abnormal [facility] CenterCOM. METABOLIC PANEL (57216)2023-10-28 04:56:21* Test Item Value Reference Range Interpretation Comme nts NA (test code = 1955742994) 143 mmol/L 135-145 K (test code = 1690196735) 4.1 mmol/L 3.5-5.0 CL (test code = 5116431266) 102 mmol/L 98-108 CO2 TOTAL (test code = 3480005178) 27 mmol/L 23-31 AGAP (test code = 4170239840) 14 2-16 BUN (test code = 7881133785) 13 mg/dL 7-23 GLUCOSE (test code = 7366474838) 75 mg/dL 70-110 CREATININE (test code = 2160-0) 0.59 mg/dL 0.50-1.04 TOTAL BILI (test code = 6637115548) 1.2 mg/dL 0.1-1.1 H CALCIUM (test code = 1445896789) 8.9 mg/dL 8.6-10.6 T PROTEIN (test code = 2445128043) 8.4 g/dL 6.3-8.2 H ALBUMIN (test code = 8010589508) 4.6 g/dL 3.5-5.0 ALK PHOS (test code = 0769445920) 169 U/L 34-122 H ALTv (test code = 1742-6) 82 U/L 5-35 H AST(SGOT) (test code = 1403466550) 217 U/L 13-40 H eGFR (test code = 96118-3) 122.2 mL/min/1.73m2 CKD-EPI eGFR (2020). Assuming creatinine has been stable day-to-day for at least three months, the eGFR indicates Category G1 (>= 90 mL/min/1.73 m2) Lab Interpretation (test code = 39514-8) Abnormal [facility] WITH [id number] 03:57:19* Test Item Value Reference Range Interpretation Comme nts WBC (test code = 6690-2) 5.12 4.30-11.10 RBC (test code = 789-8) 3.78 3.93-5.25 L HGB (test code = 718-7) 12.9 g/dL 11.6-15.0 HCT (test code = 4544-3) 38.5 % 35.7-45.2 MCV (test code = 787-2) 101.9 fL 80.6-95.5 H MCH (test code = 785-6) 34.1 pg 25.9-32.8 H MCHC (test code = 786-4) 33.5 g/dL 31.6-35.1 RDW-SD (test code = 84668-5) 55.2 fL 39.0-49.9 H RDW-CV (test code = 788-0) 14.6 % 12.0-15.5 PLT (test code = 777-3) 210 166-358 MPV (test code = 19727-5) 9.3 fL 9.5-12.9 L NRBC/100 WBC (test code = 3597003280) 0.0 0.0-10.0 NRBC x10^3 (test code = 6033733703) See_Comment [Automated messa ge] The system which generated this result transmitted reference range: 10*3/?L. The reference range was not used to interpret this result as normal/abnormal. GRAN MAT (NEUT) % (test code = 770-8) 49.7 % IMM GRAN % (test code = 1996233934) 0.20 % LYMPH % (test code = 736-9) 38.7 % MONO % (test code = 5905-5) 9.4 % EOS % (test code = 713-8) 0.4 % BASO % (test code = 706-2) 1.6 % GRAN MAT x10^3(ANC) (test code = 2705564276) 2.55 10*3/uL 1.88-7.09 IMM GRAN x10^3 (test code = 2135361456) 0.00-0.06 LYMPH x10^3 (test code = 731-0) 1.98 10*3/uL 1.32-3.29 MONO x10^3 (test code = 742-7) 0.48 10*3/uL 0.33-0.92 EOS x10^3 (test code = 711-2) 0.03-0.39 L BASO x10^3 (test code = 704-7) 0.08 10*3/uL 0.01-0.07 H Lab Interpretation (test code = 06925-2) Abnormal [facility] FNPS9038-80-34 03:42:00* Test Item Value Reference Range Interpretation Comme nts POCT PREG (test code = 1605) Negative On board controls acceptable with C Line (test code = 3574) Yes POCT PREG LOT # (test code = 3575) [id number] POCT PREG TEST DATE ( test code = 3576) 08/27/2024 Lab Interpretation (test cod e = 27253-6) Normal [facility] GLUCOSE (AUTOMATED)2023-10-19 15:53:48* Test Item Value Reference Range Interpretation Comme nts POCT GLU (test code = 5951308165) 69 mg/dL 70-110 L Notified Provide r Lab Interpretation (test code = 23716-6) Abnormal [facility] CenterPOIN GLUCOSE(AGE >30DAYS)2023-10-19 15:53:00* Test Item Value Reference Range Interpretation Comme nts POCT Glu (age>30days) (test code = 3342) 69 mg/dL, ED provider notified 70-110 Lab Interpretation (test code = 63273-7) Normal [facility] CenterLainic Acid Whole Cidjx2601-51-71 21:09:38* Test Item Value Reference Range Interpretation Comme [facility] LACTIC ACID (test code = 3319920192) 2.03 mmol/L 0.50-2.20 Lab Interpretation (test cod e = 14233-4) Normal [facility] CenterLipase2024-05-30 19:51:22* Test Item Value Reference Range Interpretation Comme nts LIPASE (test code = 7670425827) 317 U/L 0-220 H Lab Interpretation (test cod e = 25201-3) Abnormal [facility] CenterCb with Rnuk7803-32-48 18:33:19* Test Item Value Reference Range Interpretation Comme [facility] WBC (test code = 6690-2) 5.90 4.30-11.10 RBC (test code = 789-8) 3.99 3.93-5.25 HGB (test code = 718-7) 13.3 g/dL 11.6-15.0 HCT (test code = 4544-3) 38.4 % 35.7-45.2 MCV (test code = 787-2) 96.2 fL 80.6-95.5 H MCH (test code = 785-6) 33.3 pg 25.9-32.8 H MCHC (test code = 786-4) 34.6 g/dL 31.6-35.1 RDW-SD (test code = 54875-7) 46.7 fL 39.0-49.9 RDW-CV (test code = 788-0) 13.2 % 12.0-15.5 PLT (test code = 777-3) 90 166-358 L MPV (test code = 85407-8) 9.6 fL 9.5-12.9 IPF % (test code = 4989527462) 3.9 % 1.3-7.7 Platelet count measured by fluorescence method. NRBC/100 WBC (test code = 3723928361) 0.0 0.0-10.0 NRBC x10^3 (test code = 0147440548) See_Comment [Automated messa ge] The system which generated this result transmitted reference range: 10*3/?L. The reference range was not used to interpret this result as normal/abnormal. GRAN MAT (NEUT) % (test code = 770-8) 68.9 % IMM GRAN % (test code = 1400268985) 1.20 % LYMPH % (test code = 736-9) 20.5 % MONO % (test code = 5905-5) 8.3 % EOS % (test code = 713-8) 0.3 % BASO % (test code = 706-2) 0.8 % GRAN MAT x10^3(ANC) (test code = 4506324728) 4.06 10*3/uL 1.88-7.09 IMM GRAN x10^3 (test code = 1674890442) 0.07 10*3/uL 0.00-0.06 H LYMPH x10^3 (test code = 731-0) 1.21 10*3/uL 1.32-3.29 L MONO x10^3 (test code = 742-7) 0.49 10*3/uL 0.33-0.92 EOS x10^3 (test code = 711-2) 0.03-0.39 L BASO x10^3 (test code = 704-7) 0.05 10*3/uL 0.01-0.07 BANDS (test code = 7588438608) Increased A Lab Interpretation (test code = 64708-8) [facility]normal [facility] [facility] Center[facility] Eoddyz5497-05-47 18:21:08* Test Item Value Reference Range Interpretation Comme nts CK (test code = 7750871601) 112 U/L 33-194 Lab Interpretation (test cod e = 14149-2) Normal [facility]Comp. Metabolic Panel (09628)2023-09-19 18:01:22* Test Item Value Reference Range Interpretation Comme nts NA (test code = 7691902110) 139 mmol/L 135-145 K (test code = 0625043729) 3.5 mmol/L 3.5-5.0 CL (test code = 5419908119) 97 mmol/L 98-108 L CO2 TOTAL (test code = 5256716209) 29 mmol/L 23-31 AGAP (test code = 9837911077) 13 2-16 BUN (test code = 5347595594) 14 mg/dL 7-23 GLUCOSE (test code = 2288293985) 116 mg/dL 70-110 H CREATININE (test code = 2160-0) 0.64 mg/dL 0.50-1.04 TOTAL BILI (test code = 8096951625) 1.0 mg/dL 0.1-1.1 CALCIUM (test code = 5249934784) 8.9 mg/dL 8.6-10.6 T PROTEIN (test code = 7392033518) 8.7 g/dL 6.3-8.2 H ALBUMIN (test code = 4706445109) 4.7 g/dL 3.5-5.0 ALK PHOS (test code = 9294207176) 267 U/L 34-122 H ALTv (test code = 1742-6) 63 U/L 5-35 H AST(SGOT) (test code = 2196539800) 277 U/L 13-40 H eGFR (test code = 11076-2) 119.8 mL/min/1.73m2 CKD-EPI eGFR (2020). Assuming creatinine has been stable day-to-day for at least three months, the eGFR indicates Category G1 (>= 90 mL/min/1.73 m2) Lab Interpretation (test code = 90056-7) Abnormal [facility]XR CHEST 1 [id number] 17:15:42HISTORY: Tachycardia, cough, COVID. TECHNIQUE: Portable AP upright view of the chest is obtained. Comparisonmade with 09/13/2023 study. FINDINGS: No acute pneumonia. No pneumothorax or pleural effusion orpulmonary congestion detected. Cardiac size is within normal limits. CONCLUSIONS: No signs of acute cardiopulmonary disease. [facility] CenterLactic Acid Whole Ticzq6534-86-40 17:11:09* Test Item Value Reference Range Interpretation Comme nts LACTIC ACID (test code = 2194793065) 4.10 mmol/L 0.50-2.20 H Lab Interpretation (test cod e = 26063-5) Abnormal [facility] CenterCT CHEST PULMONARY NVBPFADQK9660-57-22 17:58:59Provider: CECILE RANGEL Exam: CT CHEST PULMONARY ANGIOGRAM Clinical history: PE suspected, high pretest prob HX of recent COVID dx Comparison: None Technique: CT chest pulmonary angiogram with intravenous contrast. Coronaland sagittal reformats were also obtained. Maximum intensity projectionswere performed. CT was performed according to ALARA (As Low As ReasonablyAchievable) radiation safety principle. FINDINGS: Lungs and pleura: Mild scattered areas of groundglass attenuation arenonspecificbut may be infectious or inflammatory. No pneumothorax orpleural effusion.Central airways and neck base: Central airways are clear. Neck bases arewithin normal limits. Vessels: Normal course and calib er of the thoracic aorta. No acutepulmonary thromboembolic disease.Heart: Normal heart size. No pericardial effusion.Mediastinum and chase: Scattered nonenlarged lymph nodes.Chest wall and lower neck:Within normal limits. Upper abdomen: Within normal limits. Musculoskeletal: No acute bony abnormality.[facility] CenterTROPONIN [id number] 17:47:34* Test Item Value Reference Range Interpretation Comme nts TROPONIN I (test code = 9041962912) 0.003 ng/mL <=0.034 JASMYN (test code = JASMYN) Reference (Normal) Range (defined by the 99th percentile reference limit): <= 0.034 ng/mL Note: Cardiac troponin begins to rise 3-4 hours after the onset of ischemia. Repeat in 4-6 hours if the sample was drawn within 3-4 hours of the onset of the symptom and found normal. Diagnosis of myocardial injury is made with acute changes in cTn concentrations with at least one serial sample above the 99th percentile upper reference limit (URL), taken together with the patient's clinical presentation. Biotin has been reported to cause a negative bias, interpret results relative to patient's use of biotin. Lab Interpretation (test code = 59348-3) Normal [facility] CenterN-TERMINAL QND-KCD1222-06-26 17:45:17* Test Item Value Reference Range Interpretation Comme nts NT-proBNP (test code = 35563-2) 48 pg/mL <=125 Lab Interpretation (test cod e = 98137-9) Normal [facility] CenterCOMP. METABOLIC PANEL (58248)2023-09-15 17:36:58* Test Item Value Reference Range Interpretation Comme nts NA (test code = 5221237949) 144 mmol/L 135-145 K (test code = 6934212113) 3.4 mmol/L 3.5-5.0 L CL (test code = 0762006478) 102 mmol/L 98-108 CO2 TOTAL (test code = 0469978119) 33 mmol/L 23-31 H AGAP (test code = 6168472063) 9 2-16 BUN (test code = 7699680158) 7 mg/dL 7-23 GLUCOSE (test code = 1968069856) 91 mg/dL 70-110 CREATININE (test code = 2160-0) 0.63 mg/dL 0.50-1.04 TOTAL BILI (test code = 2868519973) 1.0 mg/dL 0.1-1.1 CALCIUM (test code = 3540579719) 8.5 mg/dL 8.6-10.6 L T PROTEIN (test code = 3053925247) 8.0 g/dL 6.3-8.2 ALBUMIN (test code = 9190215675) 4.2 g/dL 3.5-5.0 ALK PHOS (test code = 9313056533) 182 U/L 34-122 H ALTv (test code = 1742-6) 48 U/L 5-35 H AST(SGOT) (test code = 0720382924) 175 U/L 13-40 H eGFR (test code = 91586-6) 120.3 mL/min/1.73m2 CKD-EPI eGFR (2020). Assuming creatinine has been stable day-to-day for at least three months, the eGFR indicates Category G1 (>= 90 mL/min/1.73 m2) Lab Interpretation (test code = 14753-5) Abnormal [facility] CenterD-CAJHV7499-65-19 17:13:34* Test Item Value Reference Range Interpretation Comments D-DIMER (test code = 7009504391) 0.93 See_Comment H [Automated message] The system which generated this result transmitted reference range: <0.50 ?g/mL (FEU). The reference range was not used to interpret this result as normal/abnormal. JASMYN (test code = JASMYN) This test may be used in conjunction with a clinical pretest probability (PTP) assessment model to exclude venous thromboembolism (VTE) in patients suspected of deep venous thrombosis (DVT) and pulmonary embolism (PE) A D-Dimer value less than 0.50 ?g/ml (FEU) has a negative predicative value of 96 to 100% (95% CI)and 97 to 100% (95% CI) as an aid in the diagnosis of deep vein thrombosis (DVT) and pulmonary embolism when there is low or moderate pretest probability of PE or DVT. D-Dimer values are expressed in initial fibrinogen equivalent units (FEU)" The assay results should be used with other information, including the clinical context, in forming a diagnosis. Lab Interpretation (test code = 83603-8) Abnormal [facility] WITH GYSQ5460-14-01 17:06:37* Test Item Value Reference Range Interpretation Comme nts WBC (test code = 6690-2) 5.93 4.30-11.10 RBC (test code = 789-8) 4.07 3.93-5.25 HGB (test code = 718-7) 13.6 g/dL 11.6-15.0 HCT (test code = 4544-3) 39.5 % 35.7-45.2 MCV (test code = 787-2) 97.1 fL 80.6-95.5 H MCH (test code = 785-6) 33.4 pg 25.9-32.8 H MCHC (test code = 786-4) 34.4 g/dL 31.6-35.1 RDW-SD (test code = 99151-1) 46.2 fL 39.0-49.9 RDW-CV (test code = 788-0) 12.9 % 12.0-15.5 PLT (test code = 777-3) 150 166-358 L MPV (test code = 51549-4) 9.1 fL 9.5-12.9 L NRBC/100 WBC (test code = 0722044524) 0.0 0.0-10.0 NRBC x10^3 (test code = 1184517368) See_Comment [Automated messa ge] The system which generated this result transmitted reference range: 10*3/?L. The reference range was not used to interpret this result as normal/abnormal. GRAN MAT (NEUT) % (test code = 770-8) 50.9 % IMM GRAN % (test code = 7036974090) 0.50 % LYMPH % (test code = 736-9) 39.0 % MONO % (test code = 5905-5) 7.1 % EOS % (test code = 713-8) 1.0 % BASO % (test code = 706-2) 1.5 % GRAN MAT x10^3(ANC) (test code = 1833843872) 3.02 10*3/uL 1.88-7.09 IMM GRAN x10^3 (test code = 9122744192) 0.03 10*3/uL 0.00-0.06 LYMPH x10^3 (test code = 731-0) 2.31 10*3/uL 1.32-3.29 MONO x10^3 (test code = 742-7) 0.42 10*3/uL 0.33-0.92 EOS x10^3 (test code = 711-2) 0.06 10*3/uL 0.03-0.39 BASO x10^3 (test code = 704-7) 0.09 10*3/uL 0.01-0.07 H Lab Interpretation (test code = 78810-9) Abnormal [facility] CenterLactic Acid Whole Kkuxj4522-10-21 16:57:54* Test Item Value Reference Range Interpretation Comme nts LACTIC ACID (test code = 2290215882) 1.81 mmol/L 0.50-2.20 Lab Interpretation (test cod e = 89028-2) Normal [facility] CenterPOCT [id number] 16:53:00* Test Item Value Reference Range Interpretation Comme nts POCT PREG (test code = 1605) Negative On board controls acceptable with C Line (test code = 3574) Yes POCT PREG LOT # (test code = 3575) [id number] POCT PREG TEST DATE ( test code = 3576) 08-23-2024 Lab Interpretation (test cod e = 71574-9) Normal [facility] 2 [id number] 00:39:44Exam: Chest (2 Views), 09/13/2023 6:30 PM. Ordering Physician: ELENO OLMSTEAD. History: fever . Technique: Two views of the chest. Comparison: None. Findings: No focal consolidation. No pneumothorax or effusion. Normal size of thecardiac silhouette. No acute osseous finding.[facility] CenterPOCT [id number] 00:14:00* Test Item Value Reference Range Interpretation Comme nts POCT PREG (test code = 1605) Negative On board controls acceptable with C Line (test code = 3574) Yes POCT PREG LOT # (test code = 3575) [id number] POCT PREG TEST DATE ( test code = 3576) 05/27/2024 Lab Interpretation (test cod e = 90488-3) Normal [facility] CenterTransthoracic echo (TTE)2023-04-27 05:37:38* Test Item Value Reference Range Interpretation Comme nts Height (test code = 8634178684) 67 in Weight (test code = 7864086105) 109 lbs Systolic BP (test code = 4436647343) 102 mmHg Diastolic BP (test code = 4609675983) 67 mmHg Heart Rate (test code = 6351742987) 78 bpm BSA (test code = 0516938947) 1.56 m2 Ao root diam (test code = 1514840867) 3.10 cm Aortic root (test code = 9295550171) 3.1 cm Ao root annulus (test code = 5523910350) 3.1 cm LVOT diameter (test code = 0695525020) 2.02 cm LVOT area (test code = 3556725474) 3.20 cm2 LVIDD (test code = 3809112131) 3.60 cm Left Ventricular End Diastolic Volume by Teichholz Method (test code = 5454637) 56.1 mL IVS (test code = 7749390943) 0.63 cm Interventricular Septum Diastolic Thickness by 2D (test code = 8013068) 0.63 cm LVPWD (test code = 9870255883) 0.65 cm PW (test code = 6276633250) 0.65 cm 0.6-1.1 EF(Teich) (test code = 0703503927) 54.30 % LVIDS (test code = 5689507428) 2.60 cm Left Ventricular End Systolic Volume by Teichholz Method (test code = 9354577) 25.6 mL FS (test code = 5489365512) 28 % EF - 2D (test code = 62707594) 54.30 % LA size (test code = 0653044234) 2.8 cm LAV(MOD-sp4) (test code = 9523881099) 25.30 mL E wave decelartion time (test code = 5693427368) 0.19 s MV stenosis pressure 1/2 time (test code = 3040789389) 55.0 ms MV Peak A Liv (test code = 4947956556) 50.8 cm/s MV Peak E Liv (test code = 0008660958) 84.4 cm/s E/A ratio (test code = 5994677031) 1.66 ratio MV Prop V (test code = 9151244732) 37.10 cm/s MV E/e' septal (test code = 0258847885) 22.4 cm/s Tapse (test code = 6778686288) 1.68 cm LVOT stroke volume (test code = 7366580877) 46.00 cm3 LVOT peak liv (test code = 0839629445) 77.0 cm/s LVOT mn grad (test code = 3049292062) 1.3 mmHg AV LVOT peak gradient (test code = 9340872588) 2.37 mmHg LVOT peak VTI (test code = 2229013511) 14.3 cm LV V1 mean (test code = 9574379313) 54.20 cm/s Aortic valve mean velocity (test code = 9036770088) 82.4 cm/s Ao peak liv (test code = 7143020134) 108.4 cm/s Ao VTI (test code = 6233465248) 20.9 cm AV area by cont VTI (test code = 0199206391) 2.2 cm2 AV area peak liv (test code = 8041256886) 2.3 cm2 Ao max PG (test code = 5562965477) 4.70 mm[Hg] AV peak gradient (test code = 7684101445) 4.7 mmHg AV valve area (test code = 4545957192) 2.20 cm2 AV mean gradient (test code = 6574359505) 2.9 mmHg MR max PG (test code = 2973602780) 94.40 mm[Hg] MR max liv (test code = 3837066432) 485.70 cm/s Mr max liv (test code = 3208541994) 485.7 m/s Radiology Study observation (narrative) (test code = 54766-3) JASMYN (test code = JASMYN) ?Left?Ventricle: Left ventricle size is normal. Normal wall thickness. Normal wall motion. Normal systolic function with a visually estimated EF of 55 - 60%. Normal diastolic function. ?Tricuspid?Valve: Trace transvalvular regurgitation. Insufficient tricuspid regurgitation jet to estimate RVSP . ?RA pressure is 5-10 mmHg. ?Right?Ventricle: Right ventricle size is normal. Normal systolic function. ?Mitral?Valve: Mild transvalvular regurgitation. Left VentricleLeft ventricle size is normal. Normal wall thickness. Normal wall motion. Normal systolic function with a visually estimated EF of 55 - 60%. Normal diastolic function.Right VentricleRight ventricle size is normal. Normal systolic function.Left AtriumLeft atrium size is normal.Right AtriumRight atrium size is normal.Mitral ValveMitral valve structure is normal. Mild transvalvular regurgitation.Tricusp id ValveTricuspid valve structure is grossly normal. Trace transvalvular regurgitation. Insufficient tricuspid regurgitation jet to estimate RVSP . RA pressure is 5-10 mmHg.Aortic ValveAortic valve opens well.Pulmonic ValveNot well visualized.Ascending AortaNormal sized aortic root.PericardiumNo pericardial effusion.Study DetailsStudy quality was adequate. A complete echocardiogram was performed using 2D, color flow Doppler and spectral Doppler. [facility] with Kdibtvzxsjhl2305-76-00 12:37:35* Test Item Value Reference Range Interpretation Comme nts WBC (test code = 6690-2) 3.78 See_Comment L [Automated UBIKODa IntellinX] The system which generated this result transmitted reference range: 4.30 - 11.10 10*3/?L. The reference range was not used to interpret this result as normal/abnormal. RBC (test code = 789-8) 2.95 See_Comment L [Automated UBIKODa IntellinX] The system which generated this result transmitted reference range: 3.93 - 5.25 10*6/?L. The reference range was not used to interpret this result as normal/abnormal. HGB (test code = 718-7) 9.9 g/dL 11.6-15.0 L HCT (test code = 4544-3) 29.3 % 35.7-45.2 L MCV (test code = 787-2) 99.3 fL 80.6-95.5 H MCH (test code = 785-6) 33.6 pg 25.9-32.8 H MCHC (test code = 786-4) 33.8 g/dL 31.6-35.1 RDW-SD (test code = 91918-7) 45.7 fL 39.0-49.9 RDW-CV (test code = 788-0) 12.6 % 12.0-15.5 PLT (test code = 777-3) 95 See_Comment L [Automated UBIKODa ge] The system which generated this result transmitted reference range: 166 - 358 10*3/?L. The reference range was not used to interpret this result as normal/abnormal. MPV (test code = 70975-2) 11.6 fL 9.5-12.9 IPF % (test code = 7854602089) 9.1 % 1.3-7.7 H Platelet count measured by fluorescence method. NRBC/100 WBC (test code = 7533440119) 0.0 See_Comment [Automated Spry ssage] The system which generated this result transmitted reference range: 0.0 - 10.0 /100 WBCs. The reference range was not used to interpret this result as normal/abnormal. NRBC x10^3 (test code = 8671489450) See_Comment [Automated UBIKODa ge] The system which generated this result transmitted reference range: 10*3/?L. The reference range was not used to interpret this result as normal/abnormal. SEG % (test code = 64582-2) 56 % 33-76 LYMPH % (test code = 30505-4) 32 % 14-54 MONO % (test code = 75992-0) 12 % 0-4 H ANC (test code = 753-4) 2.12 10*3/uL 1.88-7.09 Lab Interpretation (test code = 70134-5) Abnormal [facility] CenterProthrombin Time / [id number] 11:49:08* Test Item Value Reference Range Interpretation Comme [facility] PROTIME PATIENT (test code = 5964-2) 15.3 See_Comment H [Automated UBIKODa IntellinX] The system which generated this result transmitted reference range: 12.0 - 14.7 Seconds. The reference range was not used to interpret this result as normal/abnormal. INR (test code = 6301-6) 1.2 Normal INR <1.1; Warfarin Therapeutic range 2.0 to 3.0 or 2.5 to 3.5, depending upon the indications. Lab Interpretation (test code = 57318-1) Abnormal [facility] CenteraPTT2024-01-04 11:49:08* Test Item Value Reference Range Interpretation Comme [facility] APTT Patient (test code = 3173-2) 29 See_Comment [Automated message] The system which generated this result transmitted reference range: 23 - 38 Seconds. The reference range was not used to interpret this result as normal/abnormal. JASMYN (test code = JASMYN) The [facility] patient population mean normal value for aPTT is 30 seconds. Lab Interpretation (test code = 85363-2) Normal [facility] CenterCom. Metabolic Panel (66580)2023-04-25 11:44:23* Test Item Value Reference Range Interpretation Comme [facility] NA (test code = 3912195838) 136 mmol/L 135-145 K (test code = 6406877687) 2.6 mmol/L 3.5-5.0 LL CL (test code = 5023654219) 100 mmol/L 98-108 CO2 TOTAL (test code = 7582222266) 30 mmol/L 23-31 AGAP (test code = 7105528630) 6 2-16 BUN (test code = 6066708574) 16 mg/dL 7-23 GLUCOSE (test code = 2644654978) 96 mg/dL 70-110 CREATININE (test code = 3474951445) 0.71 mg/dL 0.50-1.04 TOTAL BILI (test code = 1264997350) 4.0 mg/dL 0.1-1.1 H CALCIUM (test code = 0225226043) 7.5 mg/dL 8.6-10.6 L T PROTEIN (test code = 6020124278) 5.8 g/dL 6.3-8.2 L ALBUMIN (test code = 8129162426) 3.0 g/dL 3.5-5.0 L ALK PHOS (test code = 9080353370) 170 U/L 34-122 H ALTv (test code = 1742-6) 50 U/L 5-35 H AST(SGOT) (test code = 0941013877) 139 U/L 13-40 H eGFR (test code = 81767-4) 115.3 mL/min/1.73m2 CKD-EPI eGFR (2020). Assuming creatinine has been stable day-to-day for at least three months, the eGFR indicates Category G1 (>= 90 mL/min/1.73 m2) Lab Interpretation (test code = 93572-8) Abnormal [facility] CenterMagnesium Bcdjl7486-26-86 11:43:47* Test Item Value Reference Range Interpretation Comme nts MAGNESIUM (test code = 2259987402) 2.0 mg/dL 1.7-2.4 Lab Interpretation (test cod e = 38490-2) Normal [facility] CenterN-TERMINAL QBB-RUB4169-53-04 11:43:47* Test Item Value Reference Range Interpretation Comme [facility] NT-proBNP (test code = 49231-6) 399 pg/mL <=125 JASMYN (test code = JASMYN) Result Indeterminate-Consid er causes of NT-proBNP elevation other than Heart failure such as acute coronary syndrome, pulmonary embolism, pulmonary hypertension, sepsis, stroke, and renal dysfunction. Lab Interpretation (test code = 49953-9) Abnormal [facility] CenterLipase2024-01-04 11:43:47* Test Item Value Reference Range Interpretation Comme nts LIPASE (test code = 0746555116) 475 U/L 0-220 H Lab Interpretation (test cod e = 07459-2) Abnormal [facility] CenterPhosphorus Yxfxe1206-02-97 06:12:16* Test Item Value Reference Range Interpretation Comme nts PHOSPHORUS (test code = 5095466873) 2.0 mg/dL 2.5-5.0 L Slight hemolysis Lab Interpretation (test code = 96435-4) Abnormal [facility] CenterLipase2024-01-04 04:47:27* Test Item Value Reference Range Interpretation Comme nts LIPASE (test code = 1138491037) 506 U/L 0-220 H Lab Interpretation (test cod e = 82003-7) Abnormal [facility] ABDOMEN PELVIS W QFSYETGA6543-13-59 01:43:47History: Abdominal abscess/infection suspected Elevated bilirubin 6.9, etohabuse, hallucinations. Exam: CT ABDOMEN PELVIS W CONTRAST Date: 04/24/2023 6:15 PM Ordering provider: Jose QUINTANILLA Technique: Axial CT scanning of the abdomen and pelvis is performed withcontrast. Radiation dose reduction performed using ALARA principles. Technical quality: Adequate Comparison: CT from 11/06/2022. Findings:The liver is enlarged with severe steatosis. The spleen,pancreas, gallbladder, adrenal glands, and right kidney are unremarkable.In the lower pole of the left kidney, there is a 3 mm cyst. No evidence ofbiliary ductal dilatation or hydronephrosis. No evidence of lymphadenopathyor ascites. There aredilated periuterine veins, left larger than right. The portalveins, hepatic veins, SMV, and portal veins are patent. The visualizedportion of the appendix is unremarkable. No evidence of diverticuliti s,bowel obstruction, perforation, or abscess. The osseous structures areunremarkable.[facility] CenterEthanol2024-01-04 00:23:03 ALCOHOL<10mg/dL04/24/2023 6:23 PM [facility]<10 Khdpcbcf71-346 Toxic>100 Depression of DECORATIVE CUTTING MACHINE TENDER>400 Fatalities ReportedUnCHRISTUS Mother Frances Hospital – TylerAmmonia, Rrgrqy9407-17-22 23:56:33* Test Item Value Reference Range Interpretation Comme nts AMMONIA (test code = 6041062500) 24 umol/L 9-33 Lab Interpretation (test cod e = 13011-1) Normal [facility] CenterPOCT Ayha9576-26-39 23:41:00* Test Item Value Reference Range Interpretation Comme nts POCT PREG (test code = 1605) Negative On board controls acceptable with C Line (test code = 3574) Yes POCT PREG LOT # (test code = 3575) [id number] POCT PREG TEST DATE ( test code = 3576) 06/30/2024 Lab Interpretation (test cod e = 39505-7) Normal [facility] CenterMagnesium2024-01-03 23:24:49* Test Item Value Reference Range Interpretation Comme nts MAGNESIUM (test code = 9624410392) 1.4 mg/dL 1.7-2.4 L Lab Interpretation (test cod e = 52643-5) Abnormal [facility] CenterComp. Metabolic Panel (71687)2023-04-24 23:24:28* Test Item Value Reference Range Interpretation Comme nts NA (test code = 9568395566) 134 mmol/L 135-145 L K (test code = 2554653390) 3.6 mmol/L 3.5-5.0 CL (test code = 8464144123) 91 mmol/L 98-108 L CO2 TOTAL (test code = 2451774541) 31 mmol/L 23-31 AGAP (test code = 7190139031) 12 2-16 BUN (test code = 7700285354) 24 mg/dL 7-23 H GLUCOSE (test code = 5766846671) 104 mg/dL 70-110 CREATININE (test code = 4203918010) 1.13 mg/dL 0.50-1.04 H TOTAL BILI (test code = 5120688569) 6.9 mg/dL 0.1-1.1 H CALCIUM (test code = 3289025462) 9.5 mg/dL 8.6-10.6 T PROTEIN (test code = 9329252995) 8.6 g/dL 6.3-8.2 H ALBUMIN (test code = 3150890810) 4.6 g/dL 3.5-5.0 ALK PHOS (test code = 0273947493) 243 U/L 34-122 H ALTv (test code = 1742-6) 70 U/L 5-35 H AST(SGOT) (test code = 2091972720) 203 U/L 13-40 H eGFR (test code = 84262-0) 66.0 mL/min/1.73m2 CKD-EPI eGFR (2020). Assuming creatinine has been stable day-to-day for at least three months, the eGFR indicates Category G2 (60 - 89 mL/min/1.73 m2) Lab Interpretation (test code = 57071-1) Abnormal [facility] CenterProthrombin Time / [id number] 23:23:27* Test Item Value Reference Range Interpretation Comme nts PROTIME PATIENT (test code = 5964-2) 15.2 See_Comment H [Automated messa ge] The system which generated this result transmitted reference range: 12.0 - 14.7 Seconds. The reference range was not used to interpret this result as normal/abnormal. INR (test code = 6301-6) 1.2 Normal INR <1.1; Warfarin Therapeutic range 2.0 to 3.0 or 2.5 to 3.5, depending upon the indications. Lab Interpretation (test code = 00924-1) Abnormal [facility] CenterActivated Partial Thrmplas Kyv9620-12-21 23:19:26* Test Item Value Reference Range Interpretation Comme [facility] APTT Patient (test code = 3173-2) 29 See_Comment [Automated message] The system which generated this result transmitted reference range: 23 - 38 Seconds. The reference range was not used to interpret this result as normal/abnormal. JASMYN (test code = JASMYN) The [facility] patient population mean normal value for aPTT is 30 seconds. Lab Interpretation (test code = 91351-5) Normal [facility] CenterCbc with Rfxf9327-87-21 23:17:49* Test Item Value Reference Range Interpretation Comme [facility] WBC (test code = 6690-2) 6.47 See_Comment [Automated UBIKODa ge] The system which generated this result transmitted reference range: 4.30 - 11.10 10*3/?L. The reference range was not used to interpret this result as normal/abnormal. RBC (test code = 789-8) 3.85 See_Comment L [Automated messa IntellinX] The system which generated this result transmitted reference range: 3.93 - 5.25 10*6/?L. The reference range was not used to interpret this result as normal/abnormal. HGB (test code = 718-7) 13.2 g/dL 11.6-15.0 HCT (test code = 4544-3) 37.7 % 35.7-45.2 MCV (test code = 787-2) 97.9 fL 80.6-95.5 H MCH (test code = 785-6) 34.3 pg 25.9-32.8 H MCHC (test code = 786-4) 35.0 g/dL 31.6-35.1 RDW-SD (test code = 73610-9) 44.6 fL 39.0-49.9 RDW-CV (test code = 788-0) 12.4 % 12.0-15.5 PLT (test code = 777-3) 123 See_Comment L [Automated UBIKODa ge] The system which generated this result transmitted reference range: 166 - 358 10*3/?L. The reference range was not used to interpret this result as normal/abnormal. MPV (test code = 65417-6) 11.9 fL 9.5-12.9 IPF % (test code = 1536906134) 11.9 % 1.3-7.7 H Platelet count measured by fluorescence method. NRBC/100 WBC (test code = 5643812435) 0.0 See_Comment [Automated Spry ssage] The system which generated this result transmitted reference range: 0.0 - 10.0 /100 WBCs. The reference range was not used to interpret this result as normal/abnormal. NRBC x10^3 (test code = 3264148772) See_Comment [Automated UBIKODa ge] The system which generated this result transmitted reference range: 10*3/?L. The reference range was not used to interpret this result as normal/abnormal. GRAN MAT (NEUT) % (test code = 770-8) 59.8 % IMM GRAN % (test code = 7587604147) 0.30 % LYMPH % (test code = 736-9) 18.1 % MONO % (test code = 5905-5) 20.2 % EOS % (test code = 713-8) 0.5 % BASO % (test code = 706-2) 1.1 % GRAN MAT x10^3(ANC) (test code = 9381397790) 3.87 10*3/uL 1.88-7.09 IMM GRAN x10^3 (test code = 5351038110) 0.00-0.06 LYMPH x10^3 (test code = 731-0) 1.17 10*3/uL 1.32-3.29 L MONO x10^3 (test code = 742-7) 1.31 10*3/uL 0.33-0.92 H EOS x10^3 (test code = 711-2) 0.03 10*3/uL 0.03-0.39 BASO x10^3 (test code = 704-7) 0.07 10*3/uL 0.01-0.07 Lab Interpretation (test code = 87079-5) Abnormal [facility] C[facility] IF [id number] 04:32:00* Test Item Value Reference Range Interpretation Comme nts UA COLOR (test code = COLU) YELLOW YELLOW UA APPEARANCE (test code = APPU) Slightly-Cloudy CLEAR UA GLUCOSE DIPSTICK (test code = DGLUU) NEGATIVE NEG UA BILIRUBIN DIPSTICK (test code = BILU) NEGATIVE NEG UA KETONE DIPSTICK (test cod e = KETU) NEGATIVE NEG UA SPECIFIC GRAVITY (test code = SGU) >1.035 1.001-1.035 H UA BLOOD DIPSTICK (test code = ARYAN) NEG NEG UA PH DIPSTICK (test code = EMMA) 7.0 5-9 UA PROTEIN DIPSTICK (test code = PROU) NEGATIVE NEG UA UROBILINIOGEN DIPSTICK (test code = URO) NEGATIVE mg/dL NEG UA NITRITE DIPSTICK (test code = DONAVAN) NEG NEG UA LEUKOCYTE ESTERASE DIPSTICK (test code = LEUU) NEG NEG UA WBC (test code = WBCU) 3-5 #/hpf NONE SEEN A UA EPITHELIAL CELLS (test code = EPIU) FEW #/HPF RARE-FEW UA RBC (test code = RBCU) 6-10 #/hpf NONE SEEN A Indication for culture: Suprapubic PainSpecimen Description: CLEAN CATCHUR HCG [id number] 04:32:00* Test Item Value Reference Range Interpretation Comme nts UR HCG QUAL (test code = HCGQLU) NEGATIVE 1. Very dilute u rine specimens, as indicated by a lowspecific gravity, may not contain personal financial representative levels ofhCG. 2. False negative results may occur when the levels of hCGare below the sensitivity level of the test. If is still suspected, a first morningurine specimen should be collected 48 hours later andtested. Indication for culture: Suprapubic PainSpecimen Description: CLEAN CATCH COMPREHENSIVE METABOLIC [id number] 03:55:00* Test Item Value Reference Range Interpretation Comme nts SODIUM (test code = NA) 141 mEq/L 135-145 N POTASSIUM (test code = K) 2.7 mEq/L 3.5-5.0 LL RESULTS CALLED Marilyn DANIELLE.READ BACK & CONFIRMED? YES.BY FPriyaLAB.LGL0 01/12/23 0354.RESULTS VERIFIED BY REPEAT ANALYSIS CHLORIDE (test code = CL) 99 mEq/L 100-115 L CARBON DIOXIDE (test code = CO2) 34 mEq/L 22-31 H ANION GAP (test code = GAP) 11.90 10-20 N GLUCOSE (test code = GLU) 87 mg/dL 65-110 N BLOOD UREA NITROGEN (test code = BUN) 10 mg/dL 7-18 N GLOMERULAR FILTRATION RATE (test code = GFR) 100 ml/min >60 N The Glomerular Filtration Rate is a calculated parameterbased on serum Creatinine, patient age and sex. GFR valuesless than 60 mL/min/1.73 square meters are indicative ofChronic Kidney Disease. Values less than 15 mL/min/1.73square meters indicate Kidney failure. The calculation forGFR is based on the CKD-EPI (202) calculation. This formulais race indifferent and is the recommended formula for GFRby the National Kidney Foundation for Adults.The GFR will not calculate if the sex is unknown or if thepatient's age is <18 years. CREATININE (test code = CREAT) 0.8 mg/dL 0.5-1.0 N TOTAL PROTEIN (test code = PROT) 8.4 gm/dL 6.3-8.2 H ALBUMIN (test code = ALB) 4.2 gm/dL 3.4-4.8 N CALCIUM (test code = CA) 9.6 mg/dL 8.4-10.2 N BILIRUBIN TOTAL (test code = BILT) 0.9 mg/dL 0.2-1.0 N SGOT/AST (test code = AST) 248 units/L 15-37 H SGPT/ALT (test code = ALT) 103 units/L 12-78 H ALKALINE PHOSPHATASE TOTAL (test code = ALKP) 173 units/L 46-116 H C REACTIVE [id number] 03:55:00* Test Item Value Reference Range Interpretation Comme nts C REACTIVE PROTEIN (test cod e = CRP) 0.30 mg/dL < 0.3 N - CT MAXIFAC W/[id number] 03:43:00 [facility] 1990 Sex: F Patient Name: DON AMATO Unit No: [id number] EXAMS: CPT CODE: [id number] CT MAXIFAC W/CONTRAST 16305 CT MAXILLOFACIAL WITH CONTRAST, 01/12/2023. CLINICAL: Pain. Swelling. COMMENT: Transaxial plus sagittal/coronal reformatted images were obtained following IV contrast administration. Facial and right periorbital soft tissue swelling are noted. The globes are intact. No focal masses and/or fluid collections are detected. The paranasal sinuses and mastoids are well pneumatized. No facial fractures are noted. CT imaging was performed using iterative reconstruction techniques and/or automated exposure control to reduce radiation dose. IMPRESSION: Right facial and periorbital soft tissue swelling. at 0343 Reported and signed by: Mustapha Rangel MD CC: Jacob Jacobs MD; Arnol Gonsalez Technologist: Mary Harmon, RT(R)(CT) CTDI: 38.85 DLP: 662.82 Trnscrbd D/ (0343) t.SDR.JS28 [facility] NAME: DON AMATO Radiology Department PHYS: Jacob Gill MD [address] : 1990 AGE: 32 SEX: F [place], [place] [address] LOC: F.ERS PHONE #: [phone] EXAM DATE: 01/12/2023 STATUS: PRE ER FAX #: [phone] RAD NO: Page 1 Signed Report 1 Patient Name: DON AMATO Unit No: [id number] EXAMS: CPT CODE: [id number] CT MAXIFAC W/CONTRAST 72319 (Continued)Orig Print D/T: S: 01/12/2023 (0346) [facility] NAME: DON AMATO RadiologyDepartment PHYS: Jacob Gill MD [address] : 1990 AGE: 32 SEX: F [place], [place] [address] LOC: KianaERS PHONE #: [phone] EXAM DATE: 01/12/2023 STATUS: PRE ER FAX #: [phone] RAD NO: Page 2 Signed Report 1CBC W/AUTO [id number] 03:29:00* Test Item Value Reference Range Interpretation Comme nts WHITE BLOOD CELL (test code = WBC) 5.1 K/mm3 6.5-12.3 L RED BLOOD CELL (test code = RBC) 4.27 M/mm3 3.51-4.69 N HEMOGLOBIN (test code = HGB) 14.0 g/dL 10.1-13.8 H HEMATOCRIT (test code = HCT) 40.9 % 32.5-41.8 N MEAN CELL VOLUME (test code = MCV) 95.8 fL 84.6-96.6 N MEAN CELL HGB (test code = MCH) 32.8 pg 27.3-33.9 N MEAN CELL HGB CONCETRATION ( test code = MCHC) 34.2 gm/dL 32.0-34.2 N RED CELL DISTRIBUTION WIDTH (test code = RDW) 12.0 % 12.2-16.3 L PLATELET COUNT (test code = PLT) 182 K/mm3 134-363 N MEAN PLATELET VOLUME (test c ode = MPV) 9.9 fL 9.2-12.7 N NEUTROPHIL % (test code = NT%) 46.9 % 57.9-77.3 L LYMPHOCYTE % (test code = LY%) 41.0 % 14.5-29.7 H MONOCYTE % (test code = MO%) 10.5 % 3.6-10.2 H EOSINOPHIL % (test code = EO%) 0.4 % 0.0-3.0 N BASOPHIL % (test code = BA%) 1.0 % 0.1-0.9 H NEUTROPHIL # (test code = NT#) 2.4 K/mm3 LYMPHOCYTE # (test code = LY#) 2.1 K/mm3 MONOCYTE # (test code = MO#) 0.5 K/mm3 EOSINOPHIL # (test code = EO#) 0.02 K/mm3 BASOPHIL # (test code = BA#) 0.1 K/mm3 RBC MORPHOLOGY REQUIRED (luz t code = RBCM) NORMAL NORMAL PLATELET MORPHOLOGY REQUIRED (test code = PLTMR) NORMAL NORMAL POCT GLUCOSE (AUTOMATED)2022-11-12 23:16:35* Test Item Value Reference Range Interpretation Comme nts POCT GLU (test code = 3286581188) 155 mg/dL 70-110 H Lab Interpretation (test cod e = 35699-3) Abnormal [facility] GLUCOSE (AUTOMATED)2022-11-11 18:35:24* Test Item Value Reference Range Interpretation Comme nts POCT GLU (test code = 7097804054) 126 mg/dL 70-110 H Lab Interpretation (test cod e = 84029-0) Abnormal [facility] GLUCOSE (AUTOMATED)2022-11-11 17:52:07* Test Item Value Reference Range Interpretation Comme nts POCT GLU (test code = 8495053689) 66 mg/dL 70-110 L Lab Interpretation (test cod e = 41861-3) [facility]* Test Item Value Reference Range Interpretation Comme nts MAGNESIUM (test code = 1178519091) 1.7 mg/dL 1.7-2.4 Slight hemolysis Lab Interpretation (test code = 51634-6) Normal [facility] GLUCOSE (AUTOMATED)2022-11-11 12:23:05* Test Item Value Reference Range Interpretation Comme nts POCT GLU (test code = 6687026619) 59 mg/dL 70-110 L Lab Interpretation (test cod e = 04690-8) Abnormal [facility] WITH [id number] 11:41:02* Test Item Value Reference Range Interpretation Comme nts WBC (test code = 6690-2) 3.26 See_Comment L [Automated messa ge] The system which generated this result transmitted reference range: 4.30 - 11.10 10*3/?L. The reference range was not used to interpret this result as normal/abnormal. RBC (test code = 789-8) 2.90 See_Comment L [Automated messa ge] The system which generated this result transmitted reference range: 3.93 - 5.25 10*6/?L. The reference range was not used to interpret this result as normal/abnormal. HGB (test code = 718-7) 10.0 g/dL 11.6-15.0 L HCT (test code = 4544-3) 30.7 % 35.7-45.2 L MCV (test code = 787-2) 105.9 fL 80.6-95.5 H MCH (test code = 785-6) 34.5 pg 25.9-32.8 H MCHC (test code = 786-4) 32.6 g/dL 31.6-35.1 RDW-SD (test code = 37549-9) 44.8 fL 39.0-49.9 RDW-CV (test code = 788-0) 11.5 % 12.0-15.5 L PLT (test code = 777-3) 158 See_Comment L [Automated messa ge] The system which generated this result transmitted reference range: 166 - 358 10*3/?L. The reference range was not used to interpret this result as normal/abnormal. MPV (test code = 82927-5) 10.3 fL 9.5-12.9 NRBC/100 WBC (test code = 0568721878) 0.0 See_Comment [Automated Spry ssage] The system which generated this result transmitted reference range: 0.0 - 10.0 /100 WBCs. The reference range was not used to interpret this result as normal/abnormal. NRBC x10^3 (test code = 5839518714) See_Comment [Automated messa ge] The system which generated this result transmitted reference range: 10*3/?L. The reference range was not used to interpret this result as normal/abnormal. SEG % (test code = 79923-4) 37 % 33-76 BAND % (test code = 89829-1) 1 % 0-1 LYMPH % (test code = 22563-0) 42 % 14-54 MONO % (test code = 23598-4) 19 % 0-4 H EOS % (test code = 40196-6) 1 % 0-3 ANC (test code = 753-4) 1.24 10*3/uL 1.88-7.09 L Lab Interpretation (test code = 63619-3) Abnormal [facility] 10:28:35* Test Item Value Reference Range Interpretation Comme nts LIPASE (test code = 7728291027) 745 U/L 0-220 H Lab Interpretation (test cod e = 23454-9) Abnormal [facility] METABOLIC PANEL (27670)2022-11-11 10:28:35* Test Item Value Reference Range Interpretation Comme nts NA (test code = 2202150910) 138 mmol/L 135-145 K (test code = 4466835652) 3.0 mmol/L 3.5-5.0 L Slight hemolysis CL (test code = 9692956092) 113 mmol/L 98-108 H CO2 TOTAL (test code = 6317256820) 17 mmol/L 23-31 L AGAP (test code = 7049969099) 8 2-16 BUN (test code = 7546577753) 13 mg/dL 7-23 Slight hemolysis GLUCOSE (test code = 6690164069) 39 mg/dL 70-110 LL CREATININE (test code = 3995816145) 0.38 mg/dL 0.50-1.04 L TOTAL BILI (test code = 9176461916) 1.3 mg/dL 0.1-1.1 H CALCIUM (test code = 2884488399) 7.1 mg/dL 8.6-10.6 L T PROTEIN (test code = 8208879280) 5.1 g/dL 6.3-8.2 L ALBUMIN (test code = 1556363320) 2.5 g/dL 3.5-5.0 L ALK PHOS (test code = 1273785852) 80 U/L 34-122 Slight hemolysis ALTv (test code = 1742-6) 23 U/L 5-35 AST(SGOT) (test code = 2675926057) 56 U/L 13-40 H Slight hemolysis eGFR (test code = 1465595517) 196.3 mL/min/1.73m2 JASMYN (test code = JASMYN) Association of Glomerular Filtration Rate (GFR) and Staging of Kidney Disease* + -----+ --------+ +| GFR (mL/min/1.73 m2) ?| With Kidney Damage ?| ?Without Kidney Damage+ +------- +---- --+| ?>90 ?| ?Stage one ?| ? Normal ?+ ------+ ---------+--------- +| ?60-89 ?| ?Stage two ?| ? Decreased GFR ? + -----+ --------+ +| ?30-59 ?| ?Stage three ?| ? Stage three ? + -----+ --------+ +| ?15-29 ?| ?Stage four ? | ? Stage four ?+ ------+ ---------+--------- +| ?<15 (or dialysis) ? ?| ?Stage five ? | ? Stage five ?+ ------+ ---------+--------- + *Each stage assumes the associated GFR level [...] or abnormalities in imaging tests). Lab Interpretation (test code = 81832-7) Abnormal [facility]OLATE2023-[facility] 08:25:59* Test Item Value Reference Range Interpretation Comme nts FOLATE SER (test code = 9538291029) 17.6 ng/mL 3.0-20.0 Biotin has been reported to cause a positive bias, interpret results relative to patient's use of biotin. Lab Interpretation (test code = 00736-5) Normal [facility] CenterETHANOL2023-07-22 22:46:37 ALCOHOL<10mg/dL11/10/2022 5:46 PM CDTUTMB LABORATORY SERVICESToxic Greater than or equal to 80 mg/dL. NOTE: Whole blood values are approximately 10% to 15% lower than serum and plasma.[facility]. METABOLIC PANEL (46257)2022-11-10 22:45:51* Test Item Value Reference Range Interpretation Comme nts NA (test code = 8692426693) 145 mmol/L 135-145 K (test code = 8570557358) 3.6 mmol/L 3.5-5.0 CL (test code = 1944264841) 104 mmol/L 98-108 CO2 TOTAL (test code = 8247439061) 29 mmol/L 23-31 AGAP (test code = 8194406248) 12 2-16 BUN (test code = 7017249581) 20 mg/dL 7-23 GLUCOSE (test code = 9059406369) 75 mg/dL 70-110 CREATININE (test code = 6013016743) 0.62 mg/dL 0.50-1.04 TOTAL BILI (test code = 0746057854) 1.6 mg/dL 0.1-1.1 H CALCIUM (test code = 1265149150) 9.8 mg/dL 8.6-10.6 T PROTEIN (test code = 7051234532) 7.5 g/dL 6.3-8.2 ALBUMIN (test code = 7721146967) 4.4 g/dL 3.5-5.0 ALK PHOS (test code = 8042522467) 142 U/L 34-122 H ALTv (test code = 1742-6) 33 U/L 5-35 AST(SGOT) (test code = 5985901050) 65 U/L 13-40 H eGFR (test code = 1328155281) 111.6 mL/min/1.73m2 JASMYN (test code = JASMYN) Association of [...] or abnormalities in imaging tests). Lab Interpretation (test code = 95612-3) Abnormal [facility] 22:45:51* Test Item Value Reference Range Interpretation Comme nts LIPASE (test code = 5583604819) 1920 U/L 0-220 H Lab Interpretation (test cod e = 62377-1) Abnormal [facility] CenterPREGNANCY TEST, [id number] 22:44:22* Test Item Value Reference Range Interpretation Comme nts PREG SERUM (test code = 3386227053) Negative JASMYN (test code = JASMYN) Less than 10 IU/L. ?If low titer or ectopic is suspected, resubmit specimen in 48-[address] [facility] CenterCBC WITH [id number] 22:37:30* Test Item Value Reference Range Interpretation Comme nts WBC (test code = 6690-2) 5.72 See_Comment [Automated Greats] The system which generated this result transmitted reference range: 4.30 - 11.10 10*3/?L. The reference range was not used to interpret this result as normal/abnormal. RBC (test code = 789-8) 3.93 See_Comment [Automated UBIKODa IntellinX] The system which generated this result transmitted reference range: 3.93 - 5.25 10*6/?L. The reference range was not used to interpret this result as normal/abnormal. HGB (test code = 718-7) 13.2 g/dL 11.6-15.0 HCT (test code = 4544-3) 40.5 % 35.7-45.2 MCV (test code = 787-2) 103.1 fL 80.6-95.5 H MCH (test code = 785-6) 33.6 pg 25.9-32.8 H MCHC (test code = 786-4) 32.6 g/dL 31.6-35.1 RDW-SD (test code = 31433-7) 44.8 fL 39.0-49.9 RDW-CV (test code = 788-0) 11.8 % 12.0-15.5 L PLT (test code = 777-3) 255 See_Comment [Automated messa ge] The system which generated this result transmitted reference range: 166 - 358 10*3/?L. The reference range was not used to interpret this result as normal/abnormal. MPV (test code = 39723-7) 9.9 fL 9.5-12.9 NRBC/100 WBC (test code = 4874564896) 0.0 See_Comment [Automated Spry ssage] The system which generated this result transmitted reference range: 0.0 - 10.0 /100 WBCs. The reference range was not used to interpret this result as normal/abnormal. NRBC x10^3 (test code = 9740145528) See_Comment [Automated UBIKODa ge] The system which generated this result transmitted reference range: 10*3/?L. The reference range was not used to interpret this result as normal/abnormal. GRAN MAT (NEUT) % (test code = 770-8) 63.5 % IMM GRAN % (test code = 0020113577) 0.30 % LYMPH % (test code = 736-9) 18.7 % MONO % (test code = 5905-5) 16.3 % EOS % (test code = 713-8) 0.2 % BASO % (test code = 706-2) 1.0 % GRAN MAT x10^3(ANC) (test code = 7899193134) 3.63 10*3/uL 1.88-7.09 IMM GRAN x10^3 (test code = 1735845385) 0.00-0.06 LYMPH x10^3 (test code = 731-0) 1.07 10*3/uL 1.32-3.29 L MONO x10^3 (test code = 742-7) 0.93 10*3/uL 0.33-0.92 H EOS x10^3 (test code = 711-2) 0.03-0.39 L BASO x10^3 (test code = 704-7) 0.06 10*3/uL 0.01-0.07 Lab Interpretation (test code = 79851-4) Abnormal 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 [facility]LIPASE2023-07-18 07:38:50* Test Item Value Reference Range Interpretation Comme nts LIPASE (test code = 8184856985) 2559 U/L 0-220 H Lab Interpretation (test cod e = 97711-3) Abnormal [facility] CenterCOMP[facility] MET[facility]OLIC PANEL (24659)2022-11-06 07:21:05* Test Item Value Reference Range Interpretation Comme nts NA (test code = 3459394692) 137 mmol/L 135-145 K (test code = 8983277280) 3.4 mmol/L 3.5-5.0 L CL (test code = 9386952547) 96 mmol/L 98-108 L CO2 TOTAL (test code = 0147439286) 33 mmol/L 23-31 H AGAP (test code = 3972941805) 8 2-16 BUN (test code = 2246783737) 5 mg/dL 7-23 L GLUCOSE (test code = 8526142068) 97 mg/dL 70-110 CREATININE (test code = 5225411381) 0.50 mg/dL 0.50-1.04 TOTAL BILI (test code = 0381034893) 1.8 mg/dL 0.1-1.1 H CALCIUM (test code = 9680245148) 8.6 mg/dL 8.6-10.6 T PROTEIN (test code = 6659773096) 7.9 g/dL 6.3-8.2 ALBUMIN (test code = 0130182657) 4.2 g/dL 3.5-5.0 ALK PHOS (test code = 7704610473) 204 U/L 34-122 H ALTv (test code = 1742-6) 52 U/L 5-35 H AST(SGOT) (test code = 7929956412) 147 U/L 13-40 H eGFR (test code = 3227008754) 143.0 mL/min/1.73m2 JASMYN (test code = JASMYN) Association of [...] or abnormalities in imaging tests). Lab Interpretation (test code = 22125-4) Abnormal [facility] WITH [id number] 07:08:46* Test Item Value Reference Range Interpretation Comme nts WBC (test code = 6690-2) 6.07 See_Comment [Automated Greats] The system which generated this result transmitted reference range: 4.30 - 11.10 10*3/?L. The reference range was not used to interpret this result as normal/abnormal. RBC (test code = 789-8) 4.32 See_Comment [Automated messa ge] The system which generated this result transmitted reference range: 3.93 - 5.25 10*6/?L. The reference range was not used to interpret this result as normal/abnormal. HGB (test code = 718-7) 15.1 g/dL 11.6-15.0 H HCT (test code = 4544-3) 43.2 % 35.7-45.2 MCV (test code = 787-2) 100.0 fL 80.6-95.5 H MCH (test code = 785-6) 35.0 pg 25.9-32.8 H MCHC (test code = 786-4) 35.0 g/dL 31.6-35.1 RDW-SD (test code = 39954-8) 41.7 fL 39.0-49.9 RDW-CV (test code = 788-0) 11.3 % 12.0-15.5 L PLT (test code = 777-3) 206 See_Comment [Automated messa ge] The system which generated this result transmitted reference range: 166 - 358 10*3/?L. The reference range was not used to interpret this result as normal/abnormal. MPV (test code = 81784-2) 10.1 fL 9.5-12.9 NRBC/100 WBC (test code = 4680764503) 0.0 See_Comment [Automated Spry ssage] The system which generated this result transmitted reference range: 0.0 - 10.0 /100 WBCs. The reference range was not used to interpret this result as normal/abnormal. NRBC x10^3 (test code = 6013166104) See_Comment [Automated messa ge] The system which generated this result transmitted reference range: 10*3/?L. The reference range was not used to interpret this result as normal/abnormal. GRAN MAT (NEUT) % (test code = 770-8) 68.0 % IMM GRAN % (test code = 8958504280) 0.30 % LYMPH % (test code = 736-9) 19.1 % MONO % (test code = 5905-5) 11.0 % EOS % (test code = 713-8) 0.3 % BASO % (test code = 706-2) 1.3 % GRAN MAT x10^3(ANC) (test code = 2047447113) 4.12 10*3/uL 1.88-7.09 IMM GRAN x10^3 (test code = 3753611903) 0.00-0.06 LYMPH x10^3 (test code = 731-0) 1.16 10*3/uL 1.32-3.29 L MONO x10^3 (test code = 742-7) 0.67 10*3/uL 0.33-0.92 EOS x10^3 (test code = 711-2) 0.03-0.39 L BASO x10^3 (test code = 704-7) 0.08 10*3/uL 0.01-0.07 H Lab Interpretation (test code = 20383-4) Abnormal [facility] [id number] 06:18:00* Test Item Value Reference Range Interpretation Comme nts POCT PREG (test code = 1605) Negative On board controls acceptable with C Line (test code = 3574) Yes Lab Interpretation (test cod e = 73884-3) Normal [facility] [id number] 02:47:00* Test Item Value Reference Range Interpretation Comme nts POCT PREG (test code = 1605) negative Lab Interpretation (test cod e = 00501-2) Normal [facility] WITH [id number] 01:22:18* Test Item Value Reference Range Interpretation Comme nts WBC (test code = 6690-2) See_Comment L [Automated messa ge] The system which generated this result transmitted reference range: 4.30 - 11.10 10*3/?L. The reference range was not used to interpret this result as normal/abnormal. RBC (test code = 789-8) See_Comment L [Automated messa ge] The system which generated this result transmitted reference range: 3.93 - 5.25 10*6/?L. The reference range was not used to interpret this result as normal/abnormal. HGB (test code = 718-7) 12.6 g/dL 11.6-15.0 HCT (test code = 4544-3) 37.9 % 35.7-45.2 MCV (test code = 787-2) 99.2 fL 80.6-95.5 H MCH (test code = 785-6) 33.0 pg 25.9-32.8 H MCHC (test code = 786-4) 33.2 g/dL 31.6-35.1 RDW-SD (test code = 66699-2) 44.6 fL 39.0-49.9 RDW-CV (test code = 788-0) 12.2 % 12.0-15.5 PLT (test code = 777-3) See_Comment [Automated messa ge] The system which generated this result transmitted reference range: 166 - 358 10*3/?L. The reference range was not used to interpret this result as normal/abnormal. MPV (test code = 46546-5) 9.4 fL 9.5-12.9 L NRBC/100 WBC (test code = 1354272863) See_Comment [Automated Spry ssage] The system which generated this result transmitted reference range: 0.0 - 10.0 /100 WBCs. The reference range was not used to interpret this result as normal/abnormal. NRBC x10^3 (test code = 6617276552) See_Comment [Automated UBIKODa ge] The system which generated this result transmitted reference range: 10*3/?L. The reference range was not used to interpret this result as normal/abnormal. GRAN MAT (NEUT) % (test code = 770-8) 45.9 % IMM GRAN % (test code = 6533834895) 0.50 % LYMPH % (test code = 736-9) 40.2 % MONO % (test code = 5905-5) 10.9 % EOS % (test code = 713-8) 1.4 % BASO % (test code = 706-2) 1.1 % GRAN MAT x10^3(ANC) (test code = 2693154272) 1.69 10*3/uL 1.88-7.09 L IMM GRAN x10^3 (test code = 1515695704) 0.00-0.06 LYMPH x10^3 (test code = 731-0) 1.48 10*3/uL 1.32-3.29 MONO x10^3 (test code = 742-7) 0.40 10*3/uL 0.33-0.92 EOS x10^3 (test code = 711-2) 0.05 10*3/uL 0.03-0.39 BASO x10^3 (test code = 704-7) 0.04 10*3/uL 0.01-0.07 Lab Interpretation (test code = 40481-7) Abnormal [facility] METABOLIC PANEL (NA, K, CL, CO2, GLUCOSE, BUN, CREATININE, CA)2022-04-13 00:58:33* Test Item Value Reference Range Interpretation Comme nts NA (test code = 9780384719) 140 mmol/L 135-145 K (test code = 3313677539) 3.7 mmol/L 3.5-5.0 CL (test code = 8137478124) 98 mmol/L 98-108 CO2 TOTAL (test code = 8989383285) 34 mmol/L 23-31 H AGAP (test code = 6394472302) 2-16 BUN (test code = 5585038151) 11 mg/dL 7-23 GLUCOSE (test code = 6623396324) 79 mg/dL 70-110 CREATININE (test code = 4463368427) 0.62 mg/dL 0.50-1.04 CALCIUM (test code = 3699598451) 8.1 mg/dL 8.6-10.6 L eGFR (test code = 0233846040) mL/min/1.73m2 JASMYN (test code = JASMYN) Association of [...] or abnormalities in imaging tests). Lab Interpretation (test code = 86559-5) Abnormal [facility]- [facility] NECK W/STKBLBNP6055-56-12 21:37:00 [facility] : 1990 Sex: F Name: DON AMATO [facility] : 1990 Age/S: 32 / F [id number] [facility] [place] Unit #: [id number] Loc: [place] [address] Phys: Shana Ross 3D TECHNOLOGIST Acct: [id number] Dis Date: Status: REG ER PHONE #: [phone] Exam Date: 04/06/20222116 FAX #: Reason: PAIN EXAMS: CPT: [id number] CT NECK W/CONTRAST 25318 Location: CT neck, 04/06/22 TECHNIQUE: CT examination of the neck was performed with IVcontrast. Patient given non ionic IV contrast. 2D Reformatted images acquired sagittally and coronally on the CT workstation using MPR software by dental technologist. Scanning conducted in the axial plane contiguously from skull base through thoracic inlet. The examination was performed on a updated helical CT scanner utilizing low-dose radiation technique. Automatic exposure control was utilized toreduce radiation dose. Unless otherwise specified , incidental findings do not require dedicated imaging follow up. The DLP is 148.72 mGy- cm CLINICAL HISTORY: Right lower tooth pain COMPARISON EXAM : None relevant to this exam FINDINGS: There is significant lucency and air associated with a tooth in the right mandible involving approximately tooth #30 consistent with dental caries. Do not see anabscess in this patient. Disruption of the cortex [...] collection. PAGE 1 Signed Report (CONTINUED) Name[facility] Jasbir [place] : 1990 Age/S: 32 / F [id number] [address] [place] Unit #: [id number] Loc: [place] [address] Phys: Shana Ross NP Acct: [id number] Dis Date: Status: REG ER PHONE #: [phone] Exam Date: 04/06/20222116 FAX #: Reason: PAIN EXAMS: CPT: [id number] CT NECK W/CONTRAST 44691 (Continued) at 2136 Reported and signed by: Cristina Arroyo M.D. CC: Shana Ross 3D TECHNOLOGIST; Arnol Gonsalez MD Technologist:Eduar Medeiros, RT(R)(CT) CTDI: DLP: Trnscb Date/Time: 04/06/2022 (2136) [email or web address] Orig Print D/T:S: 04/06/2022 (1500) PAGE 2 Signed ReportCOMPREHENSIVE METABOLIC [id number] 20:53:00* Test Item Value Reference Range Interpretation Comme nts SODIUM (test code = NA) 139 mmol/L 134-147 N POTASSIUM (test code = K) 3.9 mmol/L 3.4-5.0 N CHLORIDE (test code = CL) 100 mmol/L 100-108 N CARBON DIOXIDE (test code = CO2) 29 mmol/L 21-32 N ANION GAP (test code = GAP) 10.0 GAP calc 4.0-15.0 N GLUCOSE (test code = GLU) 77 MG/DL 70-110 N BLOOD UREA NITROGEN (test code = BUN) 14 MG/DL 7-18 N GLOMERULAR FILTRATION RATE (test code = GFR) >=60 max estimate estGFR >60 The Glomerular Filtration Rate is a calculated parameterbased on serum Creatinine, patient age and sex. GFR valuesless than 60 mL/min/1.73 square meters are indicative ofChronic Kidney Disease. Values less than 15 mL/min/1.73square meters indicate Kidney failure. The calculation forGFR is based on the CKD-EPI (2020) calculation. This formulais race indifferent and is the recommended formula for GFRby the National Kidney Foundation for Adults.The GFR will not calculate if the sex is unknown or if thepatient's age is <18 years. CREATININE (test code = CREAT) 0.7 MG/DL 0.6-1.0 N TOTAL PROTEIN (test code = PROT) 7.7 G/DL 6.4-8.2 N ALBUMIN (test code = ALB) 3.9 G/DL 3.4-5.0 N GLOBULIN (test code = GLOB) 3.8 GM/dL ALBUMIN/GLOBULIN RATIO (test code = A/G) 1.0 RATIO 1.2-2.2 L CALCIUM (test code = CA) 8.8 MG/DL 8.5-10.1 N BILIRUBIN TOTAL (test code = BILT) 0.60 MG/DL 0.2-1.2 N SGOT/AST (test code = AST) 146 Unit/L 15-37 H SGPT/ALT (test code = ALT) 67 Unit/L 12-78 N ALKALINE PHOSPHATASE TOTAL (test code = ALKP) 89 Unit/L 45-117 N CBC W/AUTO [id number] 20:25:00* Test Item Value Reference Range Interpretation Comme nts WHITE BLOOD CELL (test code = WBC) 3.2 K/mm3 3.5-11.0 L RED BLOOD CELL (test code = RBC) 4.17 M/mm3 4.70-6.10 L HEMOGLOBIN (test code = HGB) 13.8 G/DL 10.4-14.9 N HEMATOCRIT (test code = HCT) 39.0 % 31.5-44.1 N MEAN CELL VOLUME (test code = MCV) 93.5 Fl 84.5-98.6 N MEAN CELL HGB (test code = MCH) 33.1 pg 27.0-34.2 N MEAN CELL HGB CONCETRATION (test code = MCHC) 35.4 G/DL 31.5-34.0 H RED CELL DISTRIBUTION WIDTH (test code = RDW) 12.1 SD 11.5-14.5 N PLATELET COUNT (test code = PLT) 156 K/mm3 150-450 N MEAN PLATELET VOLUME (test c ode = MPV) 9.50 fL 7.0-10.5 N NEUTROPHIL % (test code = NT%) 47.1 % 40-76 N IMMATURE GRANULOCYTE % (test code = IG%) 0.0 % 0.0-5.0 N LYMPHOCYTE % (test code = LY%) 40.9 % 20.5-51.1 N MONOCYTE % (test code = MO%) 9.4 % 1.7-9.3 H EOSINOPHIL % (test code = EO%) 1.3 % 0.0-6.0 N BASOPHIL % (test code = BA%) 1.3 % 0.0-2.0 N NUCLEATED RBC % (test code = NRBC%) 0.0 /100WBC% 0.0-1.0 N NEUTROPHIL # (test code = NT#) 1.5 K/mm3 1.8-7.6 L IMMATURE GRANULOCYTE # (test code = IG#) 0.00 x10 3/uL 0.00-0.03 N LYMPHOCYTE # (test code = LY#) 1.3 K/mm3 0.6-3.2 N MONOCYTE # (test code = MO#) 0.3 K/mm3 0.3-1.1 N EOSINOPHIL # (test code = EO#) 0.0 K/mm3 0.0-0.4 N BASOPHIL # (test code = BA#) 0.0 K/mm3 0.0-0.1 N NUCLEATED RBC # (test code = NRBC#) 0.0 K/mm3 0.0-0.1 N MANUAL DIFF REQUIRED (test c ode = MDIFF) NO DIFF/SCN CRITERIA BASIC METABOLIC PANEL (NA, K, CL, CO2, GLUCOSE, BUN, CREATININE, CA)2022-04-05 23:02:55* Test Item Value Reference Range Interpretation Comme nts NA (test code = 3773772043) 141 mmol/L 135-145 K (test code = 1012459642) 3.9 mmol/L 3.5-5.0 CL (test code = 4462142746) 103 mmol/L 98-108 CO2 TOTAL (test code = 0841284971) 31 mmol/L 23-31 AGAP (test code = 8171211770) 2-16 BUN (test code = 0502949487) 12 mg/dL 7-23 GLUCOSE (test code = 7986677841) 85 mg/dL 70-110 CREATININE (test code = 4715428081) 0.56 mg/dL 0.50-1.04 CALCIUM (test code = 2932599951) 8.3 mg/dL 8.6-10.6 L eGFR (test code = 3392527213) mL/min/1.73m2 JASMYN (test code = JASMYN) Association of [...] or abnormalities in imaging tests). Lab Interpretation (test code = 41990-7) Abnormal [facility] History and Physical Notes Date/Time Note Provider Source 2023-11-06 18:52:25 Medicine History & Physical Date of Service: 11/06/2023 Pt presents from: Home CC: Intractable nausea vomiting History of Present Illness: Don Amato is a 33 year old female with past md hx of ADHD, hypertension, alcohol abuse and active vapor that presents to the ED for intractable nausea vomiting from prior hospitalization approximately 10 days ago. Per record patient was treated for alcohol intoxication on October 26. States after this event she went home she has been unable to eat or drink having intractable nausea vomiting. She denies any hematochezia or hematemesis denies any melena or bright red bloody bowel movements. Patient states last drink was yesterday when she drank 4-5 shots of tequila. Due to feeling weak and intractable nausea and vomiting she came to the ED for evaluation today. The emergency department she was noted to be tachycardic with heart rate up to 135 bpm. Initial labs showed no leukocytosis. VBG shows 7.16/ 37/ 44. Noted lactic acid of 3.62 mmol/L. Chemistry shows bicarb of 14 mmol/L with an anion gap of 27 glucose of 69 g/dL. T. bili is noted to be elevated 1.4 mg/dL albumin is decreased to 5.4 g/dL. LFTs are elevated AST greater than ALT. Drug screen positive for THC. Hospitalist called for admission On exam patient is alert tractable nausea and vomiting is improved. Which started diet. She is complaining some epigastric tenderness. States taking no medications at home active vapor denies drugs active drinker. ROS: Pt denies F / D / Constipation / CP / SOB / cough / Abd pain / dysuria / hematuria / melena / hematochezia / rashes / suicidal or homicidal ideation / All others negative Review of Hx/Meds: PMH: Past Medical History: Diagnosis Date ADHD ETOH abuse 08/16/2020 Quit in 2021 HTN (hypertension) Tobacco abuse 05/31/2018 PSH: has a past surgical history that includes laparoscopic hiatal hernia repair; laparoscopic hiatal hernia repair (Bilateral); hernia repair (2014); and metacarpal closed reduction with percutaneous pinning (Left, 11/13/2021). Family Hx: Noncontributory unless mentioned above Social History Tobacco Use Smoking status: Former Types: Cigarettes Passive exposure: Never Smokeless tobacco: Former Tobacco comments: Currently vapes nicotine Vaping Use Vaping status: Every Day Substance Use Topics Alcohol use: Yes Comment: last drink 4-5 shots yesterday Drug use: No Current Scheduled Medications Current IV Current Facility-Administered Medications: D5W 0.45% NaCl (1/2NS) 1 L + KCL 20 mEq, , Intravenous, CONTINUOUS, Krista Cabrera MD, Last Rate: 125 mL/hr at 11/06/23 1514, New Bag at 11/06/23 1514 enoxaparin (LOVENOX) injection 40 mg, 40 mg, Subcutaneous, DAILY, Eduar Echevarria DO, 40 mg at 11/06/23 1813 nicotine (NICODERM) 21 mg/24 hr patch 1 Patch, 1 Patch, Topical, Q24H, Eduar Echevarria DO, 1 Patch at 11/06/23 1813 ondansetron (ZOFRAN (PF)) injection 4 mg, 4 mg, Slow IV Push, Q6HPRN, Eduar Echevarria DO, 4 mg at 11/06/23 1807 [START ON 11/07/2023] pantoprazole (PROTONIX) EC tablet 40 mg, 40 mg, Oral, BID, Eduar Echevarria DO sucralfate (CARAFATE) tablet 1 g, 1 g, Oral, AC+HS, Eduar Echevarria DO Objective: Vitals: Vitals: 11/06/23 1632 11/06/23 1642 11/06/23 1700 11/06/23 1800 BP: 125/83 117/84 110/69 Pulse: 110 107 112 110 Resp: Temp: 36.2 ?C (97.1 ?F) TempSrc: Tympanic SpO2: 100% 99% 100% 98% Weight: 49 kg (108 lb) Height: 1.702 m (5' 7") I/O's: No intake or output data in the 24 hours ending 11/06/231851 Physical Exam: General: NAD, Alert, lying in bed comfortable, cogent speech, cachectic HEENT: anicteric, oral mucosa dry Neck: supple, no JVD, no bruits. Chest: CTA B/L, no W/R/C. Heart: RRR, S1/S2, no M/G/R Abdominal: BS normoactive, soft, ND, NT. Skin/Extremities: no rash, no cyanosis, warm and dry, no LE edema. Neurological: CN II-XII grossly intact, no focal deficits. Labs: BMP:BMP NA (mmol/L) Date Value 11/06/2023 141 10/27/2023 143 09/21/2023 136 09/20/2023 133 (L) 09/19/2023 139 K (mmol/L) Date Value 11/06/2023 4.3 10/27/2023 4.1 09/21/2023 3.2 (L) 09/20/2023 3.7 09/19/2023 3.5 CALCIUM (mg/dL) Date Value 11/06/2023 9.0 10/27/2023 8.9 09/21/2023 8.3 (L) 09/20/2023 7.9 (L) 09/19/2023 8.9 CL (mmol/L) Date Value 11/06/2023 100 10/27/2023 102 09/21/2023 103 09/20/2023 102 09/19/2023 97 (L) BUN (mg/dL) Date Value 11/06/2023 12 10/27/2023 13 09/21/2023 5 (L) 09/20/2023 5 (L) 09/19/2023 14 CREATININE (mg/dL) Date Value 11/06/2023 0.68 10/27/2023 0.59 09/21/2023 0.48 (L) 09/20/2023 0.44 (L) 09/19/2023 0.64 GLUCOSE (mg/dL) Date Value 11/06/2023 60 (L) 10/27/2023 75 09/21/2023 114 (H) 09/20/2023 179 (H) 09/19/2023 116 (H) CO2 TOTAL (mmol/L) Date Value 11/06/2023 14 (L) 10/27/2023 27 09/21/2023 28 09/20/2023 26 09/19/2023 29 CBC:CBC WBC (10*3/?L) Date Value 11/06/2023 6.36 RBC (10*6/?L) Date Value 11/06/2023 4.20 PLT (10*3/?L) Date Value 11/06/2023 345 HGB (g/dL) Date Value 11/06/2023 14.1 HCT (%) Date Value 11/06/2023 43.7 BMP:Hepatic Function Panel ALBUMIN (g/dL) Date Value 11/06/2023 5.4 (H) T PROTEIN (g/dL) Date Value 11/06/2023 9.7 (H) TOTAL BILI (mg/dL) Date Value 11/06/2023 1.4 (H) BILI UNCON (mg/dL) Date Value 09/20/2023 0.6 BILI CONJ (mg/dL) Date Value 09/20/2023 0.0 ALT(SGPT) (U/L) Date Value 03/06/2017 19 ALTv (U/L) Date Value 11/06/2023 79 (H) AST(SGOT) (U/L) Date Value 11/06/2023 154 (H) ALK PHOS (U/L) Date Value 11/06/2023 207 (H) Troponin: Recent Labs 11/06/23 1343 TROPNI 0.004 I have reviewed all relevant labs Imaging: No results found. Assessment and plan: Principal Problem: Alcohol withdrawal syndrome without complication Alcohol withdrawal: - Start thiamine and folic acid - Strongly counseled to quit drinking - Start Serax taper - As needed Ativan for breakthrough withdrawal symptoms Metabolic acidosis: Suspect secondary to starvation ketosis with lactic acidosis -Repeat VBG now along with lactic acid -Continue IV fluids Epigastric tenderness: Suspect underlying alcohol induced gastritis - Follow-up EKG - Start Protonix along with Carafate Malnutrition /concern for refeeding syndrome: - Follow-up mag and phosphorus - Dietary consult DVT prophylaxis: Lovenox Advanced Care Planning ( Z71.89 ) Above assessment and plan discussed at length with patient, patient expressed full understanding. Questions and concerns addressed I spent 18 minutes discussing the advance care planning. Advanced Directive Maker: PT Level of comfort: N/A Code Status: Full [place] AQU[employer]IUM TANK ATTENDANT was verified Disposition: Await stability, admit IMU for MGMT of ETOH Withdrawl [facility] 2023-09-19 21:29:46 Images from the original note were not included. MEDICINE MEGADE ADMIT H&P Date of Service: 09/19/2023 CHIEF COMPLAINT: shortness of breath, weakness, nausea, vomiting Subjective History of Present Illness 33 yo female with pmh of ADHD, alcohol abuse, HTN, mild asthma, history of pneumonia who presents to the ED secondary to nausea, vomiting, shortness of breath, and weakness that started about 8-9 days ago. She was recently diagnosed with COVID about 10 days ago. Only supportive therapy for the COVID. Additional symptoms: fever, chills, headache, rhinorrhea, sore throat, productive cough (yellow), loss of taste/smell, chest tightness. Keep clear liquid, decreased oral intake Worsening symptoms PAST MEDICAL HISTORY Past Medical History: Diagnosis Date ADHD ETOH abuse 08/16/2020 Quit in 2021 HTN (hypertension) Tobacco abuse 05/31/2018 Past Surgical History: Procedure Laterality Date HERNIA REPAIR 2014 LAPAROSCOPIC HIATAL HERNIA REPAIR LAPAROSCOPIC HIATAL HERNIA REPAIR Bilateral with mesh METACARPAL CLOSED REDUCTION WITH PERCUTANEOUS PINNING Left 11/13/2021 Surgeon: Cathie Ross MD; [place] [facility] [place] History Problem Relation Age of Onset No Significant Medical Problems Mother Diabetes Father Cancer Father Hypertension Father High cholesterol Father Heart Father Coronary Heart Disease Father No Significant Medical Problems Maternal Grandmother Hypertension Maternal Grandfather Coronary Heart Disease Maternal Grandfather Cancer Paternal Grandfather ALLERGIES No Known Allergies MEDICATIONS No current facility-administered medications on file prior to encounter. Current Outpatient Medications on File Prior to Encounter Medication Sig Dispense Refill permethrin 5 % cream Apply cream from neck down, leave on for 8-14 h, repeat in 2 wks 60 g 1 lisdexamfetamine (VYVANSE) 60 mg capsule Take 1 capsule by mouth every morning. metoprolol succinate XL 25 mg 24 hr tablet Take 1 tablet by mouth daily. 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 Social Determinants of Health Financial Resource Strain: Low Risk (11/12/2022) Overall Financial Resource Strain (CARDIA) Difficulty of Paying Living Expenses: Not hard at all Food Insecurity: No Food Insecurity (11/12/2022) Hunger Vital Sign Worried About Running Out of Food in the Last Year: Never true Ran Out of Food in the Last Year: Never true Transportation Needs: No Transportation Needs (11/12/2022) PRAPARE - Transportation Lack of Transportation (Medical): No Lack of Transportation (Non-Medical): No Physical Activity: Inactive (11/12/2022) Exercise Vital Sign Days of Exercise per Week: 0 days Minutes of Exercise per Session: 0 min Social Connections: Unknown (11/12/2022) Social Connection and Isolation Panel [NHANES] Frequency of Communication with Friends and Family: More than three times a week Marital Status: REVIEW OF SYSTEMS Review of Systems Respiratory: Positive for shortness of breath. Gastrointestinal: Positive for nausea and vomiting. Neurological: Positive for weakness. Objective PHYSICAL EXAMINATION Vitals: 09/19/23 1830 09/19/23 1900 09/19/23 1903 09/19/23 1923 BP: 122/83 119/80 Pulse: 80 108 85 91 Resp: 16 15 25 18 Temp: 37.5 ?C (99.5 ?F) 36.2 ?C (97.2 ?F) TempSrc: Oral SpO2: 95% 97% 96% 98% Weight: 53 kg (116 lb 12.8 oz) Height: Physical Exam LABS/IMAGING - reviewed Provider: CECILE RANGEL Exam: CT CHEST PULMONARY ANGIOGRAM Clinical history: PE suspected, high pretest prob HX of recent COVID dx Comparison: None Technique: CT chest pulmonary angiogram with intravenous contrast. Coronal and sagittal reformats were also obtained. Maximum intensity projections were performed. CT was performed according to ALARA (As Low As Reasonably Achievable) radiation safety principle. FINDINGS: Lungs and pleura: Mild scattered areas of groundglass attenuation are nonspecific but may be infectious or inflammatory. No pneumothorax or pleural effusion. Central airways and neck base: Central airways are clear. Neck bases are within normal limits. Vessels: Normal course and caliber of the thoracic aorta. No acute pulmonary thromboembolic disease. Heart: Normal heart size. No pericardial effusion. Mediastinum and chase: Scattered nonenlarged lymph nodes. Chest wall and lower neck: Within normal limits. Upper abdomen: Within normal limits. Musculoskeletal: No acute bony abnormality. IMPRESSION 1. No acute pulmonary thromboembolic disease. 2. Mild scattered areas of groundglass attenuation are nonspecific but may be infectious or inflammatory. End of report Imaging CT CHEST PULMONARY ANGIOGRAM (Order: [id number]) - 09/15/[address] CHEST PULMONARY ANGIOGRAM (Order #[id number]) on 09/15/2023 - Order Result History Report CT CHEST PULMONARY ANGIOGRAM Order: [id number] Status: Final result Visible to patient: Yes (not seen) Dx: COVID-19; Shortness of breath; Tachyc... 0 Result Notes Details Reading Physician Reading Date Result Priority Valerio Queen MD [phone] [id number] 09/15/2023 STAT Narrative & Impression Provider: CECILE RANGEL Exam: CT CHEST PULMONARY ANGIOGRAM Clinical history: PE suspected, high pretest prob HX of recent COVID dx Comparison: None Technique: CT chest pulmonary angiogram with intravenous contrast. Coronal and sagittal reformats were also obtained. Maximum intensity projections were performed. CT was performed according to ALARA (As Low As Reasonably Achievable) radiation safety principle. FINDINGS: Lungs and pleura: Mild scattered areas of groundglass attenuation are nonspecific but may be infectious or inflammatory. No pneumothorax or pleural effusion. Central airways and neck base: Central airways are clear. Neck bases are within normal limits. Vessels: Normal course and caliber of the thoracic aorta. No acute pulmonary thromboembolic disease. Heart: Normal heart size. No pericardial effusion. Mediastinum and chase: Scattered nonenlarged lymph nodes. Chest wall and lower neck: Within normal limits. Upper abdomen: Within normal limits. Musculoskeletal: No acute bony abnormality. IMPRESSION 1. No acute pulmonary thromboembolic disease. 2. Mild scattered areas of groundglass attenuation are nonspecific but may be infectious or inflammatory. --------- HISTORY: Tachycardia, cough, COVID. TECHNIQUE: Portable AP upright view of the chest is obtained. Comparison made with 09/13/2023 study. FINDINGS: No acute pneumonia. No pneumothorax or pleural effusion or pulmonary congestion detected. Cardiac size is within normal limits. CONCLUSIONS: No signs of acute cardiopulmonary disease. Assessment & Plan Don Amato is a 33 year old female with PMH as listed above, admitted to the hospital with: Acute respiratory distress: 2. Post-COVID infection/Possible pneumonia: not noted to have pneumonia on xray -- Will order for ascorbic acid, vitamin D, and zinc -- Will continue to monitor oxygenation -- Have encourage activity as tolerated and proning if dyspnea -- Oxygen supplementation as needed -- Coagulable work-up ordered in order to evaluate for possible coagulability. -- COVID-19 isolation precaution -- Will order for nausea control -- Will order azithromycin for possible superimposed pneumonia. -- Procalcitonin is pending -- D dimer is pending 2. HTN: -- Will continue with metoprolol 3. Alcohol abuse: -- Will resume Serax taper, multivitamin, folic acid 4. Intermittent, mild asthma: -- Combivent inhaler -- Albuterol inhaler as needed -- Will start intravenous dexamethaosne Prophylaxis: DVT- enoxaparin Code Status: Full Code [facility] [facility] STAFF [facility] 2023-04-24 21:43:58 [facility] Hospitalist Admission H&P Date of Service: 04/24/2023 CHIEF COMPLAINT: Patient with alcohol withdrawal syndrome with acute liver injury HISTORY OF PRESENT ILLNESS Don Amato is a 33 year old female who presents with alcohol withdrawal syndrome. Patient has a history of heavy alcohol abuse. Her last drink was 's Margie. She states she has been drinking and about half a bottle of tequila every day up until Margie. Since taking her last drink she has developed some tremors and she has had some hallucinations. She states that her divorce was just finalized. She has had a hard time as she is going through a divorce which she states was finalized today. She is also had a hard time dealing with her mother. She decided to come into the emergency room for further evaluation. In the emergency room patient was noted to have tremors and hallucinations. Decision was made to bring the patient to the hospital for further evaluation. Patient was given IV fluids and Valium. Patient's clinical symptoms are somewhat improved. We also started patient on Precedex. Will gently hydrate the patient and we will repeat patient's liver function testing. We will monitor patient's coagulation profile as well. Patient will be admitted to the intensive care unit for further treatment. PAST MEDICAL HISTORY Past Medical History: Diagnosis Date ADHD ETOH abuse 08/16/2020 Quit in 2021 HTN (hypertension) Tobacco abuse 05/31/2018 PAST SURGICAL HISTORY Past Surgical History: Procedure Laterality Date HERNIA REPAIR 2014 LAPAROSCOPIC HIATAL HERNIA REPAIR LAPAROSCOPIC HIATAL HERNIA REPAIR Bilateral with mesh METACARPAL CLOSED REDUCTION WITH PERCUTANEOUS PINNING Left 11/13/2021 Surgeon: Cathie Ross MD; [place] [facility] No Known Allergies MEDICATIONS Current home medication list reviewed: Patient's Medications START taking these medications No medications on file CONTINUE taking these medications which have NOT CHANGED LISDEXAMFETAMINE (VYVANSE) 60 MG CAPSULE Take 1 capsule by mouth every morning. LISINOPRIL ORAL Take by mouth. METOPROLOL SUCCINATE XL 25 MG 24 HR TABLET Take 1 tablet by mouth daily. START taking Modified Medications as Prescribed No medications on file STOP taking these medications No medications on file FAMILY HISTORY Family History Problem Relation Age of Onset No Significant Medical Problems Mother Diabetes Father Cancer Father Hypertension Father High cholesterol Father Heart Father Coronary Heart Disease Father No Significant Medical Problems Maternal Grandmother Hypertension Maternal Grandfather Coronary Heart Disease Maternal Grandfather Cancer Paternal Grandfather SOCIAL HISTORY Social History Socioeconomic History Marital status: Number of children: 2 Occupational 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 Social Determinants of Health Financial Resource Strain: Low Risk (11/12/2022) Overall Financial Resource Strain (CARDIA) Difficulty of Paying Living Expenses: Not hard at all Food Insecurity: No Food Insecurity (11/12/2022) Hunger Vital Sign Worried About Running Out of Food in the Last Year: Never true Ran Out of Food in the Last Year: Never true Transportation Needs: No Transportation Needs (11/12/2022) PRAPARE - Transportation Lack of Transportation (Medical): No Lack of Transportation (Non-Medical): No Physical Activity: Inactive (11/12/2022) Exercise Vital Sign Days of Exercise per Week: 0 days Minutes of Exercise per Session: 0 min Social Connections: Unknown (11/12/2022) Social Connection and Isolation Panel [NHANES] Frequency of Communication with Friends and Family: More than three times a week Marital Status: REVIEW OF SYSTEMS 10 systems negative except per HPI PHYSICAL EXAMINATION BP (!) 123/96 | Pulse 97 | Temp 37.2 ?C (99 ?F) (Oral) | Resp 19 | Ht 1.702 m (5' 7") | Wt 43.1 kg (95 lb) | SpO2 94% | BMI 14.88 kg/m? General: No acute distress HEENT: Normal oral mucosa, anicteric sclerae, NCAT Cardiovascular: RRR Lungs: Symmetric expansion, clear bilaterally Abdomen: Soft, NTND Musculoskeletal: No synovitis, normal muscle mass Genitourinary: Normal Skin: No rash, no skin lesions Extremities: No clubbing, no cyanosis, no lower extremity edema Neuro: AAOx3, no focal deficits Psych: Patient was having some hallucinations LABS - reviewed pertinent labs as below: CBC BMP PT/INR WBC (10*3/?L) Date Value 04/24/2023 6.47 NA (mmol/L) Date Value 04/24/2023 134 (L) No results found for: "PT" RBC (10*6/?L) Date Value 04/24/2023 3.85 (L) K (mmol/L) Date Value 04/24/2023 3.6 INR (no units) Date Value 04/24/2023 1.2 PLT (10*3/?L) Date Value 04/24/2023 123 (L) CALCIUM (mg/dL) Date Value 04/24/2023 9.5 HGB (g/dL) Date Value 04/24/2023 13.2 CL (mmol/L) Date Value 04/24/2023 91 (L) aPTT HCT (%) Date Value 04/24/2023 37.7 BUN (mg/dL) Date Value 04/24/2023 24 (H) APTT Patient (Seconds) Date Value 04/24/2023 29 CREATININE (mg/dL) Date Value 04/24/2023 1.13 (H) IMAGING - reviewed, pertinent results as below: Hospital Encounter on 04/24/23 CT ABDOMEN PELVIS W CONTRAST Narrative History: Abdominal abscess/infection suspected Elevated bilirubin 6.9, etoh abuse, hallucinations. Exam: CT ABDOMEN PELVIS W CONTRAST Date: 04/24/2023 6:15 PM Ordering provider: Jose QUINTANILLA Technique: Axial CT scanning of the abdomen and pelvis is performed with contrast. Radiation dose reduction performed using ALARA principles. Technical quality: Adequate Comparison: CT from 11/06/2022. Findings: The liver is enlarged with severe steatosis. The spleen, pancreas, gallbladder, adrenal glands, and right kidney are unremarkable. In the lower pole of the left kidney, there is a 3 mm cyst. No evidence of biliary ductal dilatation or hydronephrosis. No evidence of lymphadenopathy or ascites. There are dilated periuterine veins, left larger than right. The portal veins, hepatic veins, SMV, and portal veins are patent. The visualized portion of the appendix is unremarkable. No evidence of diverticulitis, bowel obstruction, perforation, or abscess. The osseous structures are unremarkable. Impression Impression: Hepatomegaly with severe steatosis. Dilated periuterine veins, left larger than right. This can be seen with pelvic congestion syndrome. RL: 781 HS: Y SSMENT: 1. Alcoholic liver disease with alcohol withdrawal symptoms 2. Acute pancreatitis secondary to alcohol use 3. Pelvic congestion syndrome secondary to cirrhosis with portal hypertension 4. Pancytopenia PLAN: 1. Patient with alcoholic liver disease/alcohol withdrawal symptoms-will go ahead and gently hydrate patient. Will keep patient n.p.o. as patient also with some mild pancreatitis. Patient was given a banana bag x 1. Will continue monitoring LFTs. Will also measure patient's synthetic liver functions. Continue with banana bag, and will continue with Precedex. Patient will be admitted to the intensive care unit 2. Acute pancreatitis; continue with IV fluids and keep patient n.p.o. 3. Pelvic congestion syndrome secondary to cirrhosis and portal hypertension; we will go ahead and treat patient's underlying liver disease. 4. Pancytopenia; continue monitoring labs closely. 5. GI DVT prophylaxis DVT prophylaxis: enoxaparin Stress ulcer prophylaxis: pantoprazole Code status: FULL Advanced Care Planning (Z71.89) Above assessment and plan discussed at length with patient, patient expressed full understanding. Questions and concerned addressed. Surrogate decision maker: NO Level of care expected after discharge: HOME Time spent: 3 minutes discussing the advanced care plan Smoking Cessation: (Z71.6) Tobacco user?: NO Patient will require inpatient stay of 2 midnights or more given high risk of morbidity and mortality. [place] AQUARIUM TANK ATTENDANT was verified during stay William Castorena MD [facility] 2022-11-10 18:43:21 Formatting of this n ote is different from the original. Medicine Intensive Care History and Physical Date of Service: 11/10/2022 ICU Admit date: 10/21/22 CHIEF COMPLAINT: Seizure due to ETOH withdrawal HISTORY OF PRESENT ILLNESS Don Amato is a 32 year old female with a PMH of ETOH use complicated by pancreatitis 11/06/22, bulimia nervosa, colon polyps due for GI follow up who presents for altered mental status and seizure activity in the setting of alcohol use. History obtained from . reports patient felt tired on Saturday and was admitted to [facility] on Saturday for a similar presentation. Pancreatitis on imaging. Treated with IV fluids and discharged the following day. is not sure if she has had a drink since then. Denies hx of IV drug use but pt does vape. Poor PO intake since Saturday. Drinks a 1/3rd handle of tequila daily. Pt was brought back to the ER due to AMS. In the ED, given fluids and ativan. Planning to admit to MICU for precedex drip and ativan prn. Patient has a past medical history of ADHD, ETOH abuse (08/16/2020), HTN (hypertension), and Tobacco abuse (05/31/2018). She has no past medical history of Abnormal uterine bleeding, Anemia, Anesthesia complication, Anxiety, Asthma, Autoimmune disorder, Blood dyscrasia, Breast disorder, Cancer, Clotting disorder, Coronary artery disease, Depression, Diabetes mellitus, Endocrine disorder, Endometriosis, Female infertility, Genital herpes, Genital warts, Heart murmur, Hormone disorder, Human immunodeficiency virus (HIV) disease, Hypertension, Kidney disease, Leiomyoma of uterus, Liver disease, Menstrual disorder, Osteoporosis, Pap smear abnormality of cervix, PID (pelvic inflammatory disease), Rh incompatibility, Seizures, Sickle cell anemia, Superficial thrombophlebitis, Thyroid disease, Transfusion history, Trauma, Tuberculosis, or Urinary incontinence. Patient has a past surgical history that includes laparoscopic hiatal hernia repair; laparoscopic hiatal hernia repair (Bilateral); hernia repair (2014); and metacarpal closed reduction with percutaneous pinning (Left, 11/13/2021). Patient reports that she has quit smoking. Her smoking use included cigarettes. She has never been exposed to tobacco smoke. She has never used smokeless tobacco. She reports that she does not drink alcohol and does not use drugs. Patient family history includes Cancer in her father and paternal grandfather; Coronary Heart Disease in her father and maternal grandfather; Diabetes in her father; Heart in her father; High cholesterol in her father; Hypertension in her father and maternal grandfather; No Significant Medical Problems in her maternal grandmother and mother. ? Current Facility-Administered Medications: dexMEDEtomidine 200 mcg in 0.9 % NaCl 50 mL (PRECEDEX) RTU IV infusion, 0.2-1.5 mcg/kg/hr, IV Infusion, TITRATE, Jeremy Velez MD foLIC acid (FOLATE) injection 1 mg, 1 mg, Intramuscular, DAILY, Jeremy Velez MD heparin (porcine) injection 5,000 Units, 5,000 Units, Subcutaneous, Q12H, Jeremy Velez MD LORazepam (ATIVAN) injection 1 mg, 1 mg, Slow IV Push, TIDPRN, Jeremy Velez MD magnesium sulfate in water 2 gram/50 mL (4 %) infusion 2 g, 2 g, IV Piggyback, ONCE, Jeremy Velez MD NaCl 0.9% (NS) bolus infusion 1,000 mL, 1,000 mL, IV Piggyback, ONCE, Adelina Judge MD thiamine (VITAMIN B1) 100 mg in NaCl 0.9% (NS) piggyback, 100 mg, IV Piggyback, DAILY, Jeremy Velez MD Current Outpatient Medications: lisinopriL 2.5 mg tablet, Take 1 tablet by mouth in the morning for 30 days., Disp: 30 tablet, Rfl: 0 lisdexamfetamine (VYVANSE) 60 mg capsule, Take 1 capsule by mouth every morning., Disp: , Rfl: metoprolol succinate XL 25 mg 24 hr tablet, Take 1 tablet by mouth daily., Disp: 90 tablet, Rfl: 3 ? Allergies: Patient has no known allergies. PHYSICAL EXAMINATION Vitals: 11/10/22 1650 11/10/22 1800 11/10/22 1827 BP: (!) 155/103 (!) 130/96 (!) 130/93 Pulse: 134 126 115 Resp: 18 19 Temp: 36.8 ?C (98.3 ?F) SpO2: 99% 98% Weight: 49 kg (108 lb) General: Unable to respond to verbal Cardio: sinus tachy, S1 S2 appreciated, no mrg, no JVD Resp: CTABL Abd: soft, non tender, no hepatosplenomegaly, Ext: No LE edema, no calf tenderness Assessment/Plan: Don Amato is a 32 year old female admitted with Neuro ETOH use Bulimia nervosa Hx of heavy alcohol use and similar presentation in Feb 2022. Planning to admit to MICU for observation of ability to protect airway. Negative ethanol level, will UDS but suspect poor PO intake and withdrawal given timeframe and last drink approx 72 hrs ago. Cannot take PO at this time. -Precedex drip -Ativan IV prn, serax when able to take PO -follow up urine drug screen -Thiamine folate GI Reported colon polyps on colonoscopy Recent Pancreatitis reports patient father at an early age from cancer prompting pt to have colonoscopy, found several polyps and has not followed up with GI. Was admitted to [facility] on 11/06 for pancreatitis and ETOH withdrawal and discharged 11/07. -Outpatient GI follow up -NPO and fluids for now Other ICU packet: Ventilation / Pressors Sedation / Paralyzation -monitor Lines/Catheters, exchange prn DIET: NPO Except Meds Diet. DVT ppx- Heparin, prophylactic Code Status: FULL Jeremy Velez MD, SARINA Internal Medicine, PGY- 3 Associated attestation - Mitch Robertson MD - 11/11/2022 9:23 AM CDT I saw and examined this pt and case discussed with Dr. Amato on rounds this morning and I agree with the presentation, assessment, and plan from 11/11/2022. I have also reviewed the H&P by Dr. Velez and I agree with the history, physical examination, assessment and plan from the 11/10/22 admission. Don Amato is a 32 year old female admitted with Seizure d/t ETOH withdrawal AMS d/t #1 Poor po with recent pancreatitis admission a/w hypoglycemia, hypoalb PLAN: Ensure adequate fluid provide electrolyte replacement as needed thiamine* 100 to 200 mg and glucose daily multivitamin containing or supplemented with folic acid Ensure adequate caloric support Mitch Robertson MD Professor Division of Pulmonary & Critical Care Medicine Interventional Pulmonology, Model Set Artist Doctor # [id number] [facility] 2022-11-06 05:35:54 Formatting of this n ote is different from the original. [facility] Hospitalist Admission H&P Date of Service: 11/06/2022 CHIEF COMPLAINT: Abdominal pain; acute pancreatitis HISTORY OF PRESENT ILLNESS Don Amato is a 32 year old female who presents with complaints of abdominal pain. Initially, patient thought it was related to her being constipated. She took a laxative and had a large bowel movement. However, her abdominal pain was not improving. Patient decided to come into the hospital for further evaluation. Patient's work-up in the emergency room revealed that she had an elevated lipase level along with an elevated total bili and ALT and AST. Patient also with macrocytic anemia. Patient has a history of alcohol abuse in the past. She states she has stopped drinking and denies drinking at this time. However, her alcohol level is elevated. She most likely has alcoholic pancreatitis. We will check a lipid profile as well. Ultrasound and CT scan does not show any gallbladder disease nor does it show any cholelithiasis. At this time, patient will be admitted to the hospital for aggressive IV hydration and pain control. We will continue patient with n.p.o. Patient will be admitted for inpatient hospitalization for an acute pancreatitis. PAST MEDICAL HISTORY Past Medical History: Diagnosis Date ADHD ETOH abuse 08/16/2020 Quit per pt report, 2020 HTN (hypertension) on meds Tobacco abuse 05/31/2018 PAST SURGICAL HISTORY Past Surgical History: Procedure Laterality Date HERNIA REPAIR 2014 LAPAROSCOPIC HIATAL HERNIA REPAIR LAPAROSCOPIC HIATAL HERNIA REPAIR Bilateral with mesh METACARPAL CLOSED REDUCTION WITH PERCUTANEOUS PINNING Left 11/13/2021 Surgeon: Cathie Ross MD; Location: [facility] ALLERGIES No Known Allergies MEDICATIONS Current home medication list reviewed: Patient's Medications START taking these medications No medications on file CONTINUE taking these medications which have NOT CHANGED LISDEXAMFETAMINE (VYVANSE) 60 MG CAPSULE Take 1 capsule by mouth every morning. METOPROLOL SUCCINATE XL 25 MG 24 HR TABLET Take 1 tablet by mouth daily. START taking Modified Medications as Prescribed No medications on file STOP taking these medications ALBUTEROL 90 MCG/ACTUATION INHALER Inhale 2 Puffs every 6 (six) hours as needed for Wheezing or Shortness of Breath. DOXYCYCLINE HYCLATE 100 MG CAPSULE Take 1 capsule by mouth in the morning and 1 capsule in the evening. IBUPROFEN 600 MG TABLET Take 600 mg by mouth in the morning. LISDEXAMFETAMINE (VYVANSE) 60 MG CAPSULE 1 capsule in the morning Orally Once a day for 30 days FAMILY HISTORY Family History Problem Relation Age of Onset No Significant Medical Problems Mother Diabetes Father Cancer Father Hypertension Father High cholesterol Father Heart Father Coronary Heart Disease Father No Significant Medical Problems Maternal Grandmother Hypertension Maternal Grandfather Coronary Heart Disease Maternal Grandfather Cancer Paternal Grandfather SOCIAL HISTORY Social History Socioeconomic History Marital status: Tobacco Use Smoking status: Every Day Packs/day: 1.00 Types: Cigarettes Smokeless tobacco: Never Substance and Sexual Activity Alcohol use: No Drug use: No Sexual activity: Yes Partners: Male control/protection: None 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 General: No acute distress HEENT: Normal oral mucosa, anicteric sclerae, NCAT Cardiovascular: RRR Lungs: Symmetric expansion, CTAB Abdomen: Soft, patient with epigastric tenderness. Patient with no rebound or guarding. Hypoactive bowel sounds Musculoskeletal: No synovitis, normal muscle mass Genitourinary: Normal Skin: No rash, lesions Neuro: AAOx3, no focal deficits Psych: Normal affect LABS - reviewed pertinent labs as below: CBC BMP PT/INR WBC (10*3/?L) Date Value 11/06/2022 6.07 NA (mmol/L) Date Value 11/06/2022 137 No results found for: "PT" RBC (10*6/?L) Date Value 11/06/2022 4.32 K (mmol/L) Date Value 11/06/2022 3.4 (L) INR (no units) Date Value 08/15/2020 1.0 PLT (10*3/?L) Date Value 11/06/2022 206 CALCIUM (mg/dL) Date Value 11/06/2022 8.6 HGB (g/dL) Date Value 11/06/2022 15.1 (H) CL (mmol/L) Date Value 11/06/2022 96 (L) aPTT HCT (%) Date Value 11/06/2022 43.2 BUN (mg/dL) Date Value 11/06/2022 5 (L) APTT Patient (Seconds) Date Value 08/15/2020 27 CREATININE (mg/dL) Date Value 11/06/2022 0.50 IMAGING - reviewed, pertinent results as below: Hospital Encounter on 11/06/22 US GALL BLADDER Narrative ORDERING PHYSICIAN: SULEMAN LOPEZ CLINICAL HISTORY: Abdominal pain; evaluate for cholecystitis, choledocholithiasis , etc. TECHNIQUE: Right upper quadrant abdominal ultrasound was performed, including Doppler imaging. COMPARISON: CT abdomen pelvis with contrast performed same day FINDINGS: The liver is nonenlarged and demonstrates diffusely increased echogenicity without appreciable focal lesions or intrahepatic ductal dilatation. Appropriate hepatopetal portal flow is seen within the main portal vein. Midline views including the aorta and IVC are unremarkable. The pancreas is obscured by overlying bowel gas. Gallbladder without gallstones, pericholecystic fluid, gallbladder wall thickening, or other evidence of acute cholecystitis. The gallbladder wall measures approximately 1.7 mm. Common bile duct measures approximately 2.9 mm. Sonographic Dia sign was reported as negative. Impression Diffuse hepatic steatosis. No evidence of cholelithiasis or biliary obstruction. RL: [id number] AFC: [id number] ABDOMEN PELVIS W CONTRAST Narrative Ordering physician: ZOË SINGLETARY Indication: Acute abdominal pain COMPARISON: None available TECHNIQUE: Axial images of the abdomen and pelvis are performed following administration of intravenous contrast material. Images were reformatted in the coronal and sagittal plane. CT scan was performed according to ALARA (as low as reasonably achievable) policy. FINDINGS: The lung bases are clear. There is diffuse fatty infiltration of the liver. The gallbladder, adrenal glands and pancreas are within normal limits. There are inflammatory changes and fluid adjacent to the pancreatic tail and the splenic flexure of the colon (series 2, image [id number]). The kidneys are normal in appearance bilaterally without hydronephrosis. No abdominal aortic aneurysm or dissection is appreciated. There is a small amount of free fluid in the pelvis. The CT appearance of the uterus and ovaries within normal limits. There is no bowel obstruction, widespread diverticulosis or acute diverticulitis. The appendix is identified and within normal limits. Bone windows through the abdomen and pelvis demonstrate no osseous destructive lesion. Impression Inflammatory change and fluid adjacent to the pancreatic tail and splenic flexure of the colon. Focal pancreatitis with secondary inflammation of the adjacent colon is favored. There is no CT evidence for necrotizing pancreatitis or organized pseudocyst. Diffuse fatty infiltration of the liver. RL: [id number] AFC: [id number] SSMENT: 1. Acute pancreatitis secondary to alcohol abuse 2. Alcoholic liver disease 3. Macrocytic anemia 4. History of hypertension 5. History of constipation 6. h/o of ADD 7. History of tobacco abuse PLAN: -aggressive IV hydration -IV antibiotics -n.p.o. -pain control -Manager Energy regarding alcohol abuse -surgery consultation if pain does not improve -CT abdomen pelvis revealed inflammation at the tail of the pancreas and along the splenic flexure; continue monitoring for worsening -Bowel regimen -Nicotine patch -GI DVT prophylaxis DVT prophylaxis: enoxaparin Stress ulcer prophylaxis: pantoprazole Code status: full Advanced Care Planning (Z71.89) Above assessment and plan discussed at length with patient, patient expressed full understanding. Questions and concerned addressed. Surrogate decision maker: herself Level of care expected after discharge: home Time spent: 3 minutes discussing the advanced care plan Smoking Cessation: (Z71.6) Tobacco user?: yes Patient will require inpatient stay of 2 midnights or more given high risk of morbidity and mortality. [place] AQUARIUM TANK ATTENDANT was verified during stay William Castorena MD [facility] Siving Egil Kvaleberg Notes Date/Time Note Provider Source 2024 16:13:05 Pt given printed and verbal discharge instructions regarding viral URI, sore throat, and encouraged hydration. Prescription x1 sent to pharmacy Discussed ibuprofen and to take with food to avoid GI distress. Discussed methocarbamol side affects and to avoid driving/operating machinery/or engaging in activities requiring alertness while taking. Pt verbalized understanding of instructions, pt awake alert oriented, resp reg unlabored, skin w/d, color appropriate for race, moves all ext well,pt encouraged to follow up with pcp. Advised to seek medical attention for new/prolonged/worsening of symptoms, Symptoms SOB No adverse reaction to meds given in ER noted upon discharge Awake, alert oriented, resp reg unlabored, skin w/d, pt leaving ambulatory without assist, in no apparent distress, [facility] Siving Egil Kvaleberg 2024 14:22:16 Patient reports body aches, fever, cough, sore throat since Saturday. David Dunne RN [facility] 2023-12-27 20:28:09 Patient provided with discharge instructions, prescription information, and follow up information. Pt verbalizes understanding and able to teach back instructions. Pt ambulatory out of dept with steady gait. Humberto Kirby RN [facility] 2023-12-27 19:46:41 Images from the original note were not included. ER Weekend Cod Clerk note: 12/27/2023 7:46 PM Cod Clerk met with the patient and her mother at the bedside at the 3D TECHNOLOGIST's request. Patient reported that she doesn't have insurance, which is a barrier to accessing medical care. She mentioned that she applied for Medicaid on November 24 and is awaiting approval. provided her with [facility] and the [facility] application. Shan Hernandez PhD, DOUBLE REAMER OPERATOR, [place] Care Management- Social Work Department of Care Management The [address] , [place] [address] O [phone] E [email or web address] Shan VITAL [facility] 2023-12-27 16:42:29 Pt pending ortho consult. Keerthi Hathaway RN [facility] 2023-12-27 15:33:37 Don Amato is a 33 year old female presents to ED triage with chief compliant of R arm pain. Pt states she broke her R ulna and radius 12 days ago and has been unable to get into an orthopedic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 well,pt encouraged to follow up with pcp. Advised to seek medical attention for new/prolonged/worsening of symptoms, Symptoms improved No adverse reaction to meds given in ER noted upon discharge PIV d'cd, dressing to site, catheter in tact. Awake, alert oriented, resp reg unlabored, skin w/d, pt leaving amb with steady gait, in no apparent distress. T Danae Fields RN [facility] 2023-11-10 02:00:06 Problem: Suicide, Risk of Goal: Absence of self-harm 11/10/2023 0159 by Danae Fields RN Outcome: Adequate for discharge 11/10/2023 0142 by Danae Fields RN Outcome: Progressing as expected [facility] 2023-11-10 01:43:56 Pt denies suicidal ideation, pt AAO X [address] Lowe talking with patient, denies homicidal and suicidal ideations. Pt states she feels safe at home. [facility] 2023-11-10 01:42:34 Problem: Suicide, Risk of Goal: Absence of self-harm Outcome: Progressing as expected [facility] 2023-11-10 00:52:18 Patient educated on emergency department behavioral process and precautions. Educated on the need for direct observation, removal of belongings, and clearing of room for patient safety. Patient given community resources for outpatient treatment and care. [facility] 2023-11-09 23:34:55 SAFE-T Protocol with C-SSRS ([place] Risk and Protective Factors) - Recent Step 1: Identify Risk Factors 1) Wish to be - Have you wished you were or wished you could go to sleep and not wake up? (P) No 2) Current suicidal thoughts - Have you actually had any thoughts of killing yourself? (P) Yes 3) Suicidal thoughts w/method- Have you been thinking about how you might do this? (P) No 4) Suicidal intent without Specific Plan- Have you had these thoughts and had some intention of acting on them? (P) No 5) Intent with Plan- Have you started to work out or worked out the details of how to kill yourself? Do you intend to carry out this plan? (P) No 6) C-SSRS Suicidal Behavior - Have you ever done anything, started to do anything, or prepared to do anything to end your life? (P) No Suggested risk level: (P) Moderate Activating Events: (P) Recent losses or other significant negative event(s) (legal, financial, relationship, etc), Pending incarceration or homelessness, Current or pending isolation or feeling alone (recent divorce) Treatment History: (P) Previous psychiatric diagnosis and treatments, Hopeless or dissatisfied with treatment, Not receiving treatment Clinical Status: (P) Hopelessness, Major depressive episode, Agitation or severe anxiety Access to lethal methods: (P) No Other: (P) n/a Step 2: Identify Protective Factors (Protective factors that may not counteract significant acute suicide risk factors) Internal: (P) None External: (P) Responsibility to family or others, living with family Step 3: Specific Questioning About Thoughts, Plans, and Suicidal Intent Frequency - How many times have you had these thoughts? (P) Once a week Duration - When you have the thoughts, how long do they last? (P) 4-8 hours/most of the day Controllability - Could/can you stop thinking about killing yourself or wanting to if you want to? (P) Can control thoughts with a lot of difficulty Deterrents - Are there things, anyone or anything (e.g. family, oriental orthodox, pain of ), that stopped you from wanting to or acting on thoughts of suicide? (P) Does not apply, Uncertain that deterrents stopped you Reasons for ideation - What sort of reasons did you have for wanting to or kill yourself? Was it to end pain, stop the way you are feeling, or to get attention, revenge or reaction from others? Or both? (P) Mostly to end or stop the pain (you couldn't go on living with the pain or how you were feeling) Stratification: High Suicide Risk Moderate Suicide Risk Low Suicide Risk ?? Suicidal ideation with intent or intent with plan in past month (C-SSRS Suicidal Ideation #4 or #5) Or ?? Suicidal behavior within past 3 months (C-SSRS Suicidal Behavior) ?? Suicidal ideation with method, WITHOUT plan, intent or behavior in past month (C-SSRS Suicidal Ideation #3) Or ?? Suicidal behavior more than 3 months ago (C-SSRS Suicidal Behavior Lifetime) Or ?? Multiple risk factors and few protective factors ?? Wish to or Suicidal Ideation WITHOUT method, intent, plan or behavior (C-SSRS Suicidal Ideation #1 or #2) Or ?? Modifiable risk factors and strong protective factors Or ? No reported history of Suicidal Ideation or Behavior Location / Risk: Outpatient / Moderate: Suicidal ideation with intent and a plan in the past month but has protective factors, OR Suicidal behavior more than 3 months ago OR suicidal ideation with intent, no plan but has multiple risk factors and few protective factors. a. Directly address suicide risk with patient and family. b. Develop safety plan (includes prevention strategies) and include counseling about restriction and removal of firearms, medications, means to hang oneself, large sharp objects, etc. See safety plan. c. Consider referral to Emergency Room as necessary if unable to develop a safety plan. d. Referral to outpatient behavioral health resource within 1 month. e. Follow-up with Psychiatry provider in 1 week or less. [facility] 2023-11-09 22:30:37 Pt brought by [facility] EMS report: [place] [employer] called us out because someone reported that got a message from her saying she wanted to hang herself. Pt denies wanting to hurt herself to us but pt did state to PD that she wanted to hang herself with the curtains. [facility] 2023-11-09 22:27:00 [facility] Emergency Department Note Patient Name: Don Amato Date of : 1990 33 year old female Treatment Room: [place] [address] Primary Care Physician: Leander Malagon Patient Escorted by: Self [9] Mode of Arrival: EMS - [facility] ([place]) [43] EMS Treatment Prior to ED Arrival: Travel and Exposure Screening: Symptoms Does patient have any of these symptoms?: (not recorded) Exposure Screening Has patient had contact with someone with a communicable disease in the last month?: (not recorded) Diseases exposed to:: (not recorded) Is Patient ?: (not recorded) Exposure Date: (not recorded) Chief Complaint: Chief Complaint Patient presents with Suicidal ideation History of Present Illness: HPI Don Amato is a 33 year old female with PMHx of ADHD, ETOH abuse, HTN presenting brought in by EMS secondary to suicidal ideation. Patient denies suicidal ideation right now but reports in the past 2 weeks. Patient is tearful and distraught on arrival. Patient reports that her "ex called the station tender again". Patient reports that he was concerned he was going to hurt herself. Patient reports that she and her recently got and that "he took my kids". Patient reports that her ex lives across the street from her and she noted that his car was not in the driveway and texted him that he "must be on a date". That prompted reaction from ex and a disagreement ensued, culminating in station tender being called. Patient reports that the station tender gave her the option to come to the ER or go to [facility]. Patient chose the former. Patient reports intermittent suicidal ideation over the past 2 weeks but with no plan. Past Medical History/Immunizations: Past Medical History: Diagnosis Date ADHD ETOH abuse 08/16/2020 Quit in 2021 HTN (hypertension) Tobacco abuse 05/31/2018 Allergies: No Known Allergies Past Social History: Tobacco Use Former; Types: Cigarettes Passive Exposure: Never Smokeless Tobacco: Former user of smokeless tobacco. Comments: Currently vapes nicotine Vaping Use Every day Alcohol Use Yes. Comments: last drink 4-5 shots yesterday Drug Use No. Sexual Activity Sexually active; Partners: Male; Control/Protection: None. Past Surgical History: Past Surgical History: Procedure Laterality Date HERNIA REPAIR 2014 LAPAROSCOPIC HIATAL HERNIA REPAIR LAPAROSCOPIC HIATAL HERNIA REPAIR Bilateral with mesh METACARPAL CLOSED REDUCTION WITH PERCUTANEOUS PINNING Left 11/13/2021 Surgeon: Cathie Ross MD; [place] [facility] [place] of Systems: Review of Systems Constitutional: Negative for activity change, appetite change, fatigue and fever. HENT: Negative for congestion, facial swelling and rhinorrhea. Eyes: Negative for photophobia and visual disturbance. Respiratory: Negative for apnea, cough, choking, chest tightness, shortness of breath, wheezing and stridor. Cardiovascular: Negative for chest pain, palpitations and leg swelling. Gastrointestinal: Negative for abdominal distention, abdominal pain, anal bleeding, blood in stool, constipation, diarrhea, nausea and vomiting. Genitourinary: Negative for dysuria. Musculoskeletal: Negative for neck pain. Neurological: Negative for dizziness, tremors, seizures, syncope, facial asymmetry, speech difficulty, weakness, light-headedness, numbness and headaches. Psychiatric/Behavioral: Positive for agitation, decreased concentration, dysphoric mood, sleep disturbance and suicidal ideas. Negative for confusion. The patient is nervous/anxious. Physical Exam: ED Triage Vitals [11/09/23 2234] Weight 47.6 kg (105 lb) Actual or estimated Estimated by patient/family report Height 1.702 m (5' 7") BP 103/75 Pulse 105 Resp 18 Temp 36.7 ?C (98 ?F) Temp source Oral SpO2 97 % Measured on Room air Physical Exam Vitals and nursing note reviewed. Constitutional: General: She is not in acute distress. Appearance: She is well-developed. She is not diaphoretic. HENT: Head: Normocephalic and atraumatic. Eyes: General: No scleral icterus. Right eye: No discharge. Left eye: No discharge. Conjunctiva/sclera: Conjunctivae normal. Cardiovascular: Rate and Rhythm: Normal rate and regular rhythm. Heart sounds: Normal heart sounds. No murmur heard. No friction rub. No gallop. Pulmonary: Effort: Pulmonary effort is normal. No respiratory distress. Breath sounds: Normal breath sounds. No wheezing. Chest: Chest wall: No tenderness. Abdominal: General: There is no distension. Palpations: Abdomen is soft. There is no mass. Tenderness: There is no abdominal tenderness. There is no guarding or rebound. Musculoskeletal: Cervical back: Neck supple. Skin: General: Skin is warm and dry. Neurological: Mental Status: She is alert and oriented to person, place, and time. Cranial Nerves: No cranial nerve deficit. Coordination: Coordination normal. Psychiatric: Mood and Affect: Mood is anxious and depressed. Mood is not elated. Affect is labile and tearful. Affect is not blunt or angry. Speech: She is communicative. Speech is not delayed or tangential. Behavior: Behavior is agitated. Behavior is not slowed, aggressive, withdrawn, hyperactive or combative. Thought Content: Thought content is not delusional. Thought content includes suicidal ideation. Thought content does not include homicidal ideation. Thought content does not include homicidal or suicidal plan. Radiology: No orders to display Lab Results: Lab Results CBC WITH DIFF - Abnormal Result Value Ref Range WBC 5.51 4.30 - 11.10 10*3/?L RBC 3.68 (*) 3.93 - 5.25 10*6/?L HGB 12.1 11.6 - 15.0 g/dL HCT 37.2 35.7 - 45.2 % MCV 101.1 (*) 80.6 - 95.5 fL MCH 32.9 (*) 25.9 - 32.8 pg MCHC 32.5 31.6 - 35.1 g/dL RDW-SD 50.4 (*) 39.0 - 49.9 fL RDW-CV 13.5 12.0 - 15.5 % PLT 232 166 - 358 10*3/?L MPV 10.1 9.5 - 12.9 fL NRBC/100 WBC 0.0 0.0 - 10.0 /100 WBCs NRBC x10 3 <0.01 10*3/?L GRAN MAT (NEUT) % 51.1 % IMM GRAN % 0.70 % LYMPH % 33.0 % MONO % 10.5 % EOS % 3.6 % BASO % 1.1 % GRAN MAT x10 3 (ANC) 2.81 1.88 - 7.09 10*3/uL IMM GRAN x10 3 0.04 0.00 - 0.06 10*3/uL LYMPH x10 3 1.82 1.32 - 3.29 10*3/uL MONO x10 3 0.58 0.33 - 0.92 10*3/uL EOS x10 3 0.20 0.03 - 0.39 10*3/uL BASO x10 3 0.06 0.01 - 0.07 10*3/uL POCT TEST - Normal POCT PREG Negative On board controls acceptable with C Line Yes POCT PREG LOT # [id number] POCT PREG TEST DATE 2024-08-29 URINE DRUG (IMMUNOASSAY) - COMPREHENSIVE DRUG SCREEN W/O REFLEX COMP. METABOLIC PANEL (95173) ETHANOL URINALYSIS COVID-19 (ID NOW RAPID TESTING) SALICYLATE ACETAMINOPHEN CREATINE KINASE THYROID STIMULATING HORMONE EKG: If EKG completed, see Procedure Note. Orders and Treatments: Orders Placed This Encounter Procedures Urine Drug (Immunoassay) Comprehensive Drug Screen w/o Reflex Comprehensive Metabolic Panel (66760) CBC with Differential Ethanol (ETOH) Level Urinalysis COVID-19 (ID Now Rapid Testing) Salicylate Acetaminophen Creatine Kinase Thyroid Stimulating Hormone POCT TEST No orders of the defined types were placed in this encounter. First Provider Eval: ED Events Date/Time Event User Comments 11/09/232230 Medical Screening Begins ALYSSIA MIRANDA MD -- 11/09/232230 First Provider Evaluation ALYSSIA MIRANDA MD -- ED COURSE Diagnosis/Impression as of 11/10/23 0049 Suicidal ideation Alcoholic intoxication without complication Procedures: Procedures MDM: Medical Decision Making Don Amato is a 33 year old female presenting with symptoms as above. Patient signed out to Dr. Lowe at midnight pending remaining labs, medical clearance, [facility] evaluation and disposition. Problems Addressed: Suicidal ideation: acute illness or injury Amount and/or Complexity of Data Reviewed Labs: ordered. Flowsheet Documentation: Scoring Tools: No data recorded Disposition/Condition: ED Disposition None Discharge Medications: Patient's Medications START taking these medications No medications on file CONTINUE taking these medications which have NOT CHANGED HYDROXYZINE 25 MG TABLET Take 1 tablet by mouth every 6 (six) hours as needed for Anxiety. METOPROLOL TARTRATE 25 MG TABLET Take 1 tablet by mouth in the morning and 1 tablet in the evening. Do all this for 30 days. ONDANSETRON 4 MG DISINTEGRATING TABLET Take 1 tablet by mouth every 8 (eight) hours as needed for Nausea and Vomiting (N/V). START taking Modified Medications as Prescribed No medications on file STOP taking these medications No medications on file Follow-up: Electronically signed by: Alyssia Miranda MD 11/09/23 6729 T [facility] [facility] 2023-11-09 22:27:00 Medical Decision Making Took over patient's care after midnight and dispo pending results and [facility] evaluation and recommendations. Patient presenting to ED with c/o SI with no plan due to problems and issues with ex . Labs reviewed. CBC unremarkable. CMP unremarkable as well. ETOH 228. Drug tox positive for THC and benzo. Poct negative and covid not detected as well. Patient with history of ETOH abuse. Patient will be observed in ED and once clinically sober, re-evaluated and dispo accordingly. Patient now clinically sober, denies any SI or HI at this time, and DC home with instructions to follow up with mental health provider. Problems Addressed: Alcoholic intoxication without complication: chronic illness or injury with exacerbation, progression, or side effects of treatment Suicidal ideation: acute illness or injury Amount and/or Complexity of Data Reviewed Labs: ordered. Decision-making details documented in ED Course. Valerio Lowe MD 11/10/23 0138 Valerio Lowe MD 11/10/23 0147 [facility] 2023-11-09 11:11:43 Problem: Discharge Planning Goal: Adequate for discharge Outcome: Adequate for discharge Goal: Effective communication Outcome: Adequate for discharge Problem: Falls, Risk of Goal: Absence of falls Outcome: Adequate for discharge Problem: Infection, Risk of or Actual Goal: Absence of infection Outcome: Adequate for discharge Problem: Mental Status - Impaired, Risk of Goal: Mental status restored to baseline Outcome: Adequate for discharge Problem: Nutrition Deficit Goal: Adequate nutritional intake Outcome: Adequate for discharge Problem: Pain Goal: Control of pain at or below patient's documented comfort goal Outcome: Adequate for discharge Goal: Reduction in pain sensation Outcome: Adequate for discharge Problem: Skin integrity Impaired (Risk or Actual) Goal: Prevention of new skin breakdown Outcome: Adequate for discharge Problem: Tissue Perfusion - Altered, Risk of Goal: Hemodynamically stable Outcome: Adequate for discharge Problem: Venous Thromboembolism, (actual or risk of) Goal: Absence of venous thromboembolism (Risk) Outcome: Adequate for discharge Martin Burrell RN [facility] 2023-11-08 23:55:51 Problem: Discharge Planning Goal: Adequate for discharge Outcome: Progressing as expected Goal: Effective communication Outcome: Progressing as expected Problem: Falls, Risk of Goal: Absence of falls Outcome: Progressing as expected Problem: Infection, Risk of or Actual Goal: Absence of infection Outcome: Progressing as expected Problem: Mental Status - Impaired, Risk of Goal: Mental status restored to baseline Outcome: Progressing as expected Problem: Nutrition Deficit Goal: Adequate nutritional intake Outcome: Progressing as expected Problem: Pain Goal: Control of pain at or below patient's documented comfort goal Outcome: Progressing as expected Goal: Reduction in pain sensation Outcome: Progressing as expected Problem: Skin integrity Impaired (Risk or Actual) Goal: Prevention of new skin breakdown Outcome: Progressing as expected Problem: Tissue Perfusion - Altered, Risk of Goal: Hemodynamically stable Outcome: Progressing as expected Problem: Venous Thromboembolism, (actual or risk of) Goal: Absence of venous thromboembolism (Risk) Outcome: Progressing as expected Shyanne Hanson RN [facility] 2023-11-08 10:47:33 Problem: Discharge Planning Goal: Adequate for discharge Outcome: Progressing as expected Goal: Effective communication Outcome: Progressing as expected Problem: Falls, Risk of Goal: Absence of falls Outcome: Progressing as expected Problem: Infection, Risk of or Actual Goal: Absence of infection Outcome: Progressing as expected Problem: Mental Status - Impaired, Risk of Goal: Mental status restored to baseline Outcome: Progressing as expected Problem: Nutrition Deficit Goal: Adequate nutritional intake Outcome: Progressing as expected Problem: Pain Goal: Control of pain at or below patient's documented comfort goal Outcome: Progressing as expected Goal: Reduction in pain sensation Outcome: Progressing as expected Problem: Skin integrity Impaired (Risk or Actual) Goal: Prevention of new skin breakdown Outcome: Progressing as expected Problem: Tissue Perfusion - Altered, Risk of Goal: Hemodynamically stable Outcome: Progressing as expected Problem: Venous Thromboembolism, (actual or risk of) Goal: Absence of venous thromboembolism (Risk) Outcome: Progressing as expected Mena Zelaya RN [facility] 2023-11-07 21:35:50 Problem: Falls, Risk of Goal: Absence of falls Outcome: Progressing as expected Problem: Nutrition Deficit Goal: Adequate nutritional intake Outcome: Progressing as expected Problem: Pain Goal: Control of pain at or below patient's documented comfort goal Outcome: Progressing as expected Goal: Reduction in pain sensation Outcome: Progressing as expected AT Brooklyn Moulton RN [facility] 2023-11-07 15:05:45 Problem: Discharge Planning Goal: Adequate for discharge Outcome: Progressing as expected Goal: Effective communication Outcome: Progressing as expected Problem: Falls, Risk of Goal: Absence of falls Outcome: Progressing as expected Problem: Infection, Risk of or Actual Goal: Absence of infection Outcome: Progressing as expected Problem: Mental Status - Impaired, Risk of Goal: Mental status restored to baseline Outcome: Progressing as expected Problem: Nutrition Deficit Goal: Adequate nutritional intake Outcome: Progressing as expected Problem: Pain Goal: Control of pain at or below patient's documented comfort goal Outcome: Progressing as expected Goal: Reduction in pain sensation Outcome: Progressing as expected Problem: Skin integrity Impaired (Risk or Actual) Goal: Prevention of new skin breakdown Outcome: Progressing as expected Problem: Venous Thromboembolism, (actual or risk of) Goal: Absence of venous thromboembolism (Risk) Outcome: Progressing as expected [facility] 2023-11-06 22:57:30 Problem: Discharge Planning Goal: Adequate for discharge Outcome: Progressing as expected Goal: Effective communication Outcome: Progressing as expected Problem: Falls, Risk of Goal: Absence of falls Outcome: Progressing as expected Problem: Infection, Risk of or Actual Goal: Absence of infection Outcome: Progressing as expected Problem: Mental Status - Impaired, Risk of Goal: Mental status restored to baseline Outcome: Progressing as expected Problem: Nutrition Deficit Goal: Adequate nutritional intake Outcome: Progressing as expected Problem: Pain Goal: Control of pain at or below patient's documented comfort goal Outcome: Progressing as expected Goal: Reduction in pain sensation Outcome: Progressing as expected Problem: Skin integrity Impaired (Risk or Actual) Goal: Prevention of new skin breakdown Outcome: Progressing as expected Problem: Tissue Perfusion - Altered, Risk of Goal: Hemodynamically stable Outcome: Progressing as expected Problem: Venous Thromboembolism, (actual or risk of) Goal: Absence of venous thromboembolism (Risk) Outcome: Progressing as expected [facility] Jyoti Shaffer RN [facility] 2023-11-06 18:31:18 Problem: Discharge Planning Goal: Adequate for discharge Outcome: Progressing as expected Goal: Effective communication Outcome: Progressing as expected Problem: Falls, Risk of Goal: Absence of falls Outcome: Progressing as expected Problem: Infection, Risk of or Actual Goal: Absence of infection Outcome: Progressing as expected Problem: Mental Status - Impaired, Risk of Goal: Mental status restored to baseline Outcome: Progressing as expected Problem: Nutrition Deficit Goal: Adequate nutritional intake Outcome: Progressing as expected Problem: Skin integrity Impaired (Risk or Actual) Goal: Prevention of new skin breakdown Outcome: Progressing as expected Problem: Tissue Perfusion - Altered, Risk of Goal: Hemodynamically stable Outcome: Progressing as expected Problem: Venous Thromboembolism, (actual or risk of) Goal: Absence of venous thromboembolism (Risk) Outcome: Progressing as expected [facility] 2023-11-06 16:10:15 Patient admitted to 2109 for diagnosis of alcohol withdrawal syndrome without complication, lactic acidosis. Patient agrees to admission, discussed plan of care with patient and family. Patient is awake, A&Ox4, RR even and unlabored on RA. Color appropriate for race. PIV intact x2. No adverse reaction to medications administered while in ED. Belongings with patient to unit. T Denise Alexander RN [facility] 2023-11-06 16:09:29 Nurse Report Report given to July. Chief complaint, assessment findings, infusion verify and orders reviewed. [facility] 2023-11-06 15:43:53 Associated Order(s): Critical Care Critical Care Performed by: Krista Cabrera MD Authorized by: Krista Cabrera MD Critical care provider statement: Critical care time (minutes): 60 Critical care time was exclusive of: Separately billable procedures and treating other patients and teaching time Critical care was necessary to treat or prevent imminent or life-threatening deterioration of the following conditions: Metabolic crisis Critical care was time spent personally by me on the following activities: Development of treatment plan with patient or surrogate, evaluation of patient's response to treatment, examination of patient, obtaining history from patient or surrogate, ordering and performing treatments and interventions, ordering and review of laboratory studies, ordering and review of radiographic studies, pulse oximetry, re-evaluation of patient's condition and review of old charts Care discussed with: admitting provider Comments: Due to a high probability of clinically significant, life threatening deterioration, the patient required my highest level of preparedness to intervene emergently and I personally spent this critical care time directly and personally managing the patient. This critical care time included obtaining a history; examining the patient; pulse oximetry; ordering and review of studies; arranging urgent treatment with development of a management plan; evaluation of patient's response to treatment; frequent reassessment; and, discussions with other providers. This critical care time was performed to assess and manage the high probability of imminent, life-threatening deterioration that could result in multi-organ failure. It was exclusive of separately billable procedures and treating other patients.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 alcohol dependence with WD with complication. Patient agrees to admission, discussed plan of care with patient and family. Patient is awake, A&Ox4, RR even and unlabored on RA. Color appropriate for race. PIV intact x 1. No adverse reaction to medications administered while in ED. Belongings with patient to unit. [facility] Yecenia Duong RN [facility] 2023-09-19 18:52:36 Nurse Report Report given to [place] RN. Chief complaint, assessment findings, infusion verify and orders reviewed. [facility] [facility] 18:15:16 Pt tolerating crackers. In bed, tremors have lessened in intensity. NAD, call light within reach. [facility] 2023-09-19 16:09:03 Pt successfully ambulated to restroom with standby from ED RN. Pt now in bed. Remains tachycardic and is shivering. Provider aware. [facility] 2023-09-19 15:11:48 Pt noted to be vomiting by provider. 4mg Zofran IVP given. [facility] 2023-09-19 14:32:54 Notified lab of stat add on. T [facility] 2023-09-19 13:55:00 Ice chips given, pt tolerating without any episodes of vomiting. T [facility] 2023-09-19 13:48:25 Pt sleeping in bed, call light within reach. RR even and unlabored. NAD noted. [facility] 2023-09-19 13:01:34 Nurse Report Report given to LUIS EDUARDO Rhodes. Chief complaint, assessment findings, infusion verify and orders reviewed. Plan of care discussed at bedside with patient and both nurses. Patient/family members verbalized understanding. Radha Ash RN T Radha Ash RN [facility] 2023-09-19 11:50:04 Patient has been ill for about 10 days. Was diagnosed with covid and hasn't improved. Has shortness of breath, weakness, and diarrhea and vomiting. Also reports she has not drank alcohol in 5 days. Normally drinks several shots of tequila daily. Lacey Nguyễn RN [facility] 2023-09-15 13:27:57 Pt given printed and verbal discharge instructions regarding COVID-19, tachycardia, shortness of breath, weakness, encouraged hydration, 0 Prescriptions provided Pt verbalized understanding of instructions, pt awake alert oriented, resp reg unlabored, skin w/d, color appropriate for race, moves all ext well,pt encouraged to follow up with pcp. Advised to seek medical attention for new/prolonged/worsening of symptoms, Symptoms improved. PIV d'cd, dressing to site, catheter in tact. Awake, alert oriented, resp reg unlabored, skin w/d, pt leaving amb with steady gait, in no apparent distress, Marleen Lopez RN [facility] 2023-09-15 11:56:06 Patient ambulated with a steady gait. Patient's HR was 90 and oxygen saturation was 95% after walking. Patient passed walk test. [facility] 2023-09-15 11:24:09 Patient to ED for weakness. Reports she was diagnosed with covid 4 days ago and has not been drinking like she is supposed to and doesn't feel well. AT Lacey Nguyễn RN [facility] 2023-09-13 20:01:46 Pt self removed IV, IVF, and dumped urine out. Pt given printed and verbal discharge instructions regarding Covid, encouraged hydration, Discussed ibuprofen and to take with food to avoid GI distress, alternate with Tylenol to help with pain and/or fever Pt verbalized understanding of instructions,pt encouraged to follow up with pcp Advised to seek medical attention for new/prolonged/worsening of symptoms, No adverse reaction to meds given in ER noted upon discharge PIV d'cd, dressing to site, catheter in tact. Awake, alert oriented, resp reg unlabored, skin w/d, pt leaving in no apparent distress, Alma Rosa Nick RN [facility] 2023-09-13 19:06:29 Pt care assumed. Pt in radiology at this time. 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 I have fever, cough, body aches. I can't break the fever. It's been going on for 4 days" Meagan Greenberg RN [facility] 2023-05-01 15:23:09 TRANSITIONAL CARE MANAGEMENT ASSESSMENT 05/01/2023 Don Amato [id number] Don Amato is a 33 year old /White female was admitted on 04/24/23 to [facility] ICU. She was discharged on 04/27/23 with discharge disposition of HR- Routine Discharge. Admitting Physician: William Castorena Discharge Diagnosis: Alcohol withdrawal syndrome, with delirium Pt. Voicing a concern post hospital stay, as noted in chart came in urgent care due to rash post hospital was treated with medication. Instructed if she would like to discuss her voiced concern with patient services gave contact number. Explained to pt. If any concerns of treatment and stay advice to contact pt. Service to discuss all concerns. Linked Episodes Type: Episode: Status: Noted: Resolved: Last update: Updated by: TRANSITION OF CARE tcm Active 04/30/2023 05/01/2023 3:22 PM Thelma Slaughter LVN Comments: TCM Zgm-oqqw-cj-face outreach documentation: Discharge Assessment Chart Assessed: 05/01/23 TCM Outreach Completed: 05/01/23 Do you have a few minutes to speak with me about how you are doing at home?: Yes Discharge Instructions Do you understand your at-home instructions?: Yes Medications Have you filled your prescriptions and do you have them in your home? : Yes (OTC) Do you know how to take your medications?: Yes Can you provide me with the names or descriptions of any fezw-rfe-xmvyins or supplements you are currently taking?: Yes Supplies Did you receive applicable home medical supplies/equipment?: N/A Follow Up Appointment Has a follow up appointment been scheduled?: Yes Do you have any questions about your follow up appointments?: No Are you able to get to your appointment? Who will be taking you?: Yes (self) Home Health Assistance Has the home health nurse contacted you since you've been home?: N/A Survey - Recognition Is there anything you would like to share about your recent hospitalization, or anyone you would like to recognize?: No Do you have any suggestions for improvement?: No Do you have any other questions or concerns at this time?: Yes Future Appointments: UCTION CONTROL EXPERT Thelma Slaughter LVN [facility] 2023-05-01 10:39:46 Patient Permethrin cream changed with instructions, pt in office and was informed of change. Leila Adamson RN 05/01/2023 10:40 AM UCTION CONTROL EXPERT Leila Adamson RN [facility] 2023-05-01 09:12:55 Pt states pharmacy will not fill prescription for Permethrin 5% Topical Cream because no instructions on how to use TA Stevens MA [facility] 2023-05-01 08:57:35 Need directions for Permethrin 5% Topical Cream TA Bender [facility] 2023-04-30 14:00:00 Addended by: NATACHA AGUIRRE on: 05/01/2023 10:19 AM Modules accepted: Orders UCTION CONTROL EXPERT [facility] 2023-04-30 09:37:33 TRANSITIONAL CARE MANAGEMENT ASSESSMENT 04/30/2023 Don Amato [id number] Don Amato is a 33 year old /White female was admitted on 04/24/23 to [facility] ICU. She was discharged on 04/27/23 with discharge disposition of HR- Routine Discharge. Admitting Physician: William Castorena Discharge Diagnosis: Alcohol withdrawal syndrome, with delirium [F10.931] No contact. No linked episodes TCM Dfz-foat-qf-face outreach documentation: Future Appointments: UCTION CONTROL EXPERT [facility] 2023-04-27 09:30:00 Discharge instructions reviewed with pt. Discussed meds and follow up appts. No questions or concerns voiced at this time. TA Woods RN [facility] 2023-04-27 00:11:44 Problem: Discharge Planning Goal: Adequate for discharge Outcome: Progressing as expected Goal: Effective communication Outcome: Progressing as expected Problem: Falls, Risk of Goal: Absence of falls Outcome: Progressing as expected Problem: Fluid Volume - Imbalanced Goal: Absence of signs and symptoms of imbalanced fluid volume Outcome: Progressing as expected Problem: Mental Status - Impaired, Risk of Goal: Mental status restored to baseline Outcome: Progressing as expected Goal: Absence of physical injury Outcome: Progressing as expected Problem: Nutrition Deficit Goal: Adequate nutritional intake Outcome: Progressing as expected Problem: Pain Goal: Control of pain at or below patient's documented comfort goal Outcome: Progressing as expected Goal: Reduction in pain sensation Outcome: Progressing as expected TA Zelaya RN [facility] 2023-04-26 18:23:14 Problem: Discharge Planning Goal: Adequate for discharge Outcome: Progressing as expected Goal: Effective communication Outcome: Progressing as expected Problem: Falls, Risk of Goal: Absence of falls Outcome: Progressing as expected Problem: Fluid Volume - Imbalanced Goal: Absence of signs and symptoms of imbalanced fluid volume Outcome: Progressing as expected Problem: Mental Status - Impaired, Risk of Goal: Mental status restored to baseline Outcome: Progressing as expected Goal: Absence of physical injury Outcome: Progressing as expected Problem: Nutrition Deficit Goal: Adequate nutritional intake Outcome: Progressing as expected Problem: Pain Goal: Control of pain at or below patient's documented comfort goal Outcome: Progressing as expected Goal: Reduction in pain sensation Outcome: Progressing as expected UCTION CONTROL EXPERT Salena Nguyễn RN [facility] 2023-04-25 09:06:50 Problem: Discharge Planning Goal: Adequate for discharge Outcome: Progressing as expected Goal: Effective communication Outcome: Progressing as expected Problem: Falls, Risk of Goal: Absence of falls Outcome: Progressing as expected Problem: Fluid Volume - Imbalanced Goal: Absence of signs and symptoms of imbalanced fluid volume Outcome: Progressing as expected Problem: Mental Status - Impaired, Risk of Goal: Mental status restored to baseline Outcome: Progressing as expected Goal: Absence of physical injury Outcome: Progressing as expected Problem: Nutrition Deficit Goal: Adequate nutritional intake Outcome: Progressing as expected Problem: Pain Goal: Control of pain at or below patient's documented comfort goal Outcome: Progressing as expected Goal: Reduction in pain sensation Outcome: Progressing as expected TA Slaughter RN [facility] 2023-04-25 00:20:54 Problem: Discharge Planning Goal: Adequate for discharge Outcome: Progressing as expected Goal: Effective communication Outcome: Progressing as expected Problem: Falls, Risk of Goal: Absence of falls Outcome: Progressing as expected Problem: Fluid Volume - Imbalanced Goal: Absence of signs and symptoms of imbalanced fluid volume Outcome: Progressing as expected Problem: Mental Status - Impaired, Risk of Goal: Mental status restored to baseline Outcome: Progressing as expected Goal: Absence of physical injury Outcome: Progressing as expected Problem: Nutrition Deficit Goal: Adequate nutritional intake Outcome: Progressing as expected Problem: Pain Goal: Control of pain at or below patient's documented comfort goal Outcome: Progressing as expected Goal: Reduction in pain sensation Outcome: Progressing as expected TA Ortega RN [facility] 2023-04-24 22:06:00 Patient admitted to [facility] for diagnosis of alcohol withdrawal syndrome with delirium, vomiting, tachycardia, ETOH abuse, visual hallucinations, auditory hallucinations, and liver steatosis. Patient agrees to admission, discussed plan of care with patient and family. Patient is awake, A&Ox 4, RR even and unlabored on RA. Color appropriate for race. PIV intact x 2. No adverse reaction to medications administered while in ED. Belongings with patient to unit. TA Casillas RN [facility] 2023-04-24 22:05:00 Nurse Report Report given to Martin HOFF. Chief complaint, assessment findings, infusion verify and orders reviewed. Yecenia Casillas RN [facility] 2023-04-24 21:51:01 Updated patient on inpatient room assignment. Pt states, "I need to get out of this room. There is a ghost in here and he's scaring me." Pt states that she sees writing on her purse and that her cup is moving and talking to her. Pt denies that she is hallucinating. Pt denies that the ghost is telling her to harm herself or others just that he's "a bad ghost." [facility] Sara Workman RN [facility] 2023-04-24 21:36:56 Pt states she does not give her mother Shelbie Amato permission to be contacted or given any information. [facility] 2023-04-24 19:41:12 Pt with severe hand tremors. Pt states she hasn't drank in 14 days. Finalized her divorce today. [facility] 2023-04-24 15:17:32 CC: patient presents to the ER with complaints of vomiting that began 5 days ago, patient states vomiting has subsided. States that now patient has cramping in the hands and "jitters." States she recently began taking her potassium supplements again. PMHx: see history Awake, alert, oriented, resp reg unlabored, skin warm and dry, color appropriate for race, moves all ext without difficulty, amb without assistance. Appears in no distress. [facility] Yumiko Hua RN [facility] 2023-04-24 15:02:00 AdmissionCare Guideline: Delirium, Inpatient Based on the indications selected for the patient, the bed status of Admit to Inpatient was determined to be MET The following indications were selected as present at the time of evaluation of the patient: - Delirium due to alcohol or sedative withdrawal AdmissionCare documentation entered by: Jsoe Quintanilla [facility], 27th edition, Copyright ? 2022 [facility] [employer] [facility] All Rights Reserved. [id number] [facility] 2023-01-12 02:36:00 [facility] EMERGENCY PROVIDER REPORT REPORT#:[id number] REPORT STATUS: Signed DATE:01/12/23 TIME: 0236 PATIENT: DON AMATO UNIT #: [id number] ROOM/BED: AGE: 32 SEX: F PCP PHYS: Chris Malagon MD SERVICE AUTHOR: Jacob Jacobs MD * ALL edits or amendments must be made on the electronic/computer document * HPI-General Illness General Initial Greet Date/Time 01/12/23226 Presentation Chief Complaint facial redness Free Text HPI Notes Free Text HPI Notes 32 years old patient no past medical history had a root canal treatment 2 days ago since started having swelling and redness of the right side of face more intense in periorbital area increasing tenderness, no fever vomiting or any other complaints. Review of Systems ROS Statements All systems rev neg except as marked. Free Text ROS Notes Free Text ROS Notes CONSTITUTIONAL: Normal; negative for fever, weight change, fatigue, or aching. HEENT: Eyes normal; negative for, irritation, or visual field defects. Ears normal; Negative for pain . Nose normal; Negative for runny nose, sinus problems , or nosebleeds. Mouth normal; Negative for dental problems,. Throat normal; Negative for hoarseness, difficulty swallowing, or sore throat. CARDIOVASCULAR: Normal; Negative for chest pain or, high blood pressure, orthopnea, PULMONARY: Normal; Negative for cough, sputum, shortness of breath or wheezing, GASTROINTESTINAL: Normal; Negative for pain, vomiting, , change in stool, hemorrhoids, or bleeding. MUSCULOSKELETAL: Normal; Negative for back pain, joint pain. NEUROLOGIC: Normal; Negative for blackouts, headaches, seizures or dizziness. PSYCHIATRIC: Normal; Negative for anxiety, depression, or phobias. ENDOCRINE: Normal; Negative for diabetes, thyroid.HEMATOLOGIC/LYMPHATIC : Normal; Negative for anemia, swollen glands, or blood disorders. IMMUNOLOGIC: Negative; Negative for steroids, chemotherapy, or cancer. VASCULAR: Normal; Negative for varicose veins, blood clots, or leg ulcers. Past Medical History - Adult Stated Complaint dental pain/discomfort, facial swelling onset 4day Allergies Coded Allergies: No Known Allergies (03/12/17) Home Medications Discontinued Scripts IBUPROFEN (MOTRIN) 600 MG PO Q6H PRN PRN MILD PAIN (1-3) IBUPROFEN (MOTRIN) 600 MG PO Q6H PRN PRN MILD PAIN (1-3) #20 TAB Prov: 03/13/17 DC: 01/12/23237 Patient stopped taking Reported Medications METOPROLOL SUCC XL (TOPROL XL) 25 MG PO DAILY LISINOPRIL (ZESTRIL) (Unknown Dose) AMOXICILLIN (AMOXIL) 500 MG PO Q12H Discontinued Reported Medications VIT/FE FUMARATE/FA ( Multivitamin w/ Iron) Physical Exam Vital Signs Vital Signs First Documented: Result Date Time Pulse Ox 100 01/12 233 B/P 142/96 01/12 233 B/P Mean 111 01/12 233 O2 Delivery Room air 01/12 233 Temp 36.4 01/12 233 Pulse 122 01/12 233 Resp 16 01/12 233 Last Documented: Result Date Time Pulse Ox 100 01/13 456 B/P 139/78 01/13 456 B/P Mean 98 01/13 456 O2 Delivery Room air 01/13 456 Temp 36.6 01/13 456 Pulse 126 01/13 456 Resp 18 01/13 456 Review of Vital Signs Reviewed, Vital signs normal Basic Physical Exam Basic PE GEN: Well appearing/NAD, EYES: PERRL, conj clear, ENT: Membranes moist, NECK: Supple, RESP: No resp distress, CV: Reg rate rhythm, ABD: Soft/non- tender, EXT: No gross abnormality, NEURO: alert oriented, NEURO: gross movement NL Physical Exam Skin Text/Dict Notes redness and swellling of periorbital area Interpretation Diagnostics Lab Results Interpretation Results Laboratory Tests 01/12/23251: [Embedded Image Not Available] Laboratory Tests: 01/127 0252 0252 Chemistry Sodium (135 - 145 mEq/L) 141 Potassium (3.5 - 5.0 mEq/L) 2.7 *L Chloride (100 - 115 mEq/L) 99 L Carbon Dioxide (22 - 31 mEq/L) 34 H Anion Gap (10 - 20) 11.90 BUN (7 - 18 mg/dL) 10 Creatinine (0.5 - 1.0 mg/dL) 0.8 Glomerular Filtr Rate (>60 ml/min) 100 Glucose (65 - 110 mg/dL) 87 Calcium (8.4 - 10.2 mg/dL) 9.6 Total Bilirubin (0.2 - 1.0 mg/dL) 0.9 AST (15 - 37 units/L) 248 H ALT (12 - 78 units/L) 103 H Total Alk Phosphatase (46 - 116 units/L) 173 H C-Reactive Protein (< 0.3 mg/dL) 0.30 Total Protein (6.3 - 8.2 gm/dL) 8.4 H Albumin (3.4 - 4.8 gm/dL) 4.2 Hematology WBC (6.5 - 12.3 K/mm3) 5.1 L RBC (3.51 - 4.69 M/mm3) 4.27 Hgb (10.1 - 13.8 g/dL) 14.0 H Hct (32.5 - 41.8 %) 40.9 MCV (84.6 - 96.6 fL) 95.8 MCH (27.3 - 33.9 pg) 32.8 MCHC (32.0 - 34.2 gm/dL) 34.2 RDW (12.2 - 16.3 %) 12.0 L Plt Count (134 - 363 K/mm3) 182 MPV (9.2 - 12.7 fL) 9.9 Neut % (Auto) (57.9 - 77.3 %) 46.9 L Lymph % (Auto) (14.5 - 29.7 %) 41.0 H [place] % (Auto) (3.6 - 10.2 %) 10.5 H Eos % (Auto) (0.0 - 3.0 %) 0.4 Baso % (Auto) (0.1 - 0.9 %) 1.0 H Neut # (Auto) (K/mm3) 2.4 Lymph # (Auto) (K/mm3) 2.1 [place] # (Auto) (K/mm3) 0.5 Eos # (Auto) (K/mm3) 0.02 Baso # (Auto) (K/mm3) 0.1 Urines Urine Color (YELLOW) YELLOW Urine Appearance (CLEAR) Slightly-Cloudy Urine pH (5 - 9) 7.0 Ur Specific [place] (1.001 - 1.035) >1.035 H Urine Protein (NEG) NEGATIVE Urine Glucose (UA) (NEG) NEGATIVE Urine Ketones (NEG) NEGATIVE Urine Blood (NEG) NEG Urine Nitrite (NEG) NEG Urine Bilirubin (NEG) NEGATIVE Urine Urobilinogen (NEG mg/dL) NEGATIVE Ur Leukocyte Esterase (NEG) NEG Urine RBC (NONE SEEN #/hpf) 6-10 H Urine WBC (NONE SEEN #/hpf) 3-5 H Ur Epithelial Cells (RARE - FEW #/HPF) FEW Urine HCG, Qual NEGATIVE Microbiology: Date/Time Procedure - Status Source Growth 01/13 252 Blood Culture - RECD BLOOD 01/13 252 Blood Culture Gram Stain - RECD BLOOD 01/13 252 Blood Culture - RECD BLOOD 01/12 025 Blood Culture Gram Stain - RECD BLOOD Recent Impressions: CAT SCAN - CT MAXIFAC W/CONTRAST 01/12 0321 Report Impression - Status: SIGNED Entered: 01/12/2023 034 IMPRESSION: Right facial and periorbital soft tissue swelling. Impression By: [email or web address] - Mustapha Rangel MD Re-Evaluation MDM ED Course Medication(s) Ordered Medication(s) Ordered: Anti-Infective Agents Sig/Germain Start time Last Medication Dose Route Stop Time Status Admin Clindamycin HCl/ 50 ML X1ED STA 01/12 0235 DC 01/12 Dextrose IV 01/12 0334 0339 Central Nervous System Agents Sig/Germain Start time Last Medication Dose Route Stop Time Status Admin Ketorolac 30 MG X1ED STA 01/12 0235 DC 01/12 Tromethamine IV 01/12 0236 0338 Electrolytic, Caloric, And Nilsa Sig/Germain Start time Last Medication Dose Route Stop Time Status Admin Potassium Chloride 40 MEQ X1ED STA 01/12 0502 DC 01/12 PO 01/12 0503 0507 Hormones And Synthetic Substit Sig/Germain Start time Last Medication Dose Route Stop Time Status Admin Methylprednisolone 125 MG X1ED STA 01/12 0235 DC 01/12 Sodium Succinate IV 01/12 0236 0338 Patient Discharge Departure Vital Signs/Condition Vital Signs First Documented: Result Date Time Pulse Ox 100 01/12 0233 B/P 142/96 01/12 0233 B/P Mean 111 01/12 0233 O2 Delivery Room air 01/12 0233 Temp 36.4 01/12 0233 Pulse 122 01/12 0233 Resp 16 01/12 0233 Last Documented: Result Date Time Pulse Ox 100 01/12 0456 B/P 139/78 01/12 0456 B/P Mean 98 01/12 0456 O2 Delivery Room air 01/12 0456 Temp 36.6 01/12 0456 Pulse 126 01/12 0456 Resp 18 01/12 0456 All vital signs available at the time of this entry have been reviewed. Condition Stable, Improved Clinical Impression Clinical Impression Primary Impression: Cellulitis Time of Impression 0507 Disposition Decision Discharge )( Discharged to Home Yes )( Time 0507 )( Date 01/12/23 Discharge/Care Plan (Auto) Prescriptions Current Visit Scripts CLINDAMYCIN HCL (CLEOCIN) 300 MG PO Q6H CLINDAMYCIN HCL (CLEOCIN) 300 MG PO Q6H #28 CAPS KETOROLAC (TORADOL) 10 MG PO Q6H PRN PRN PAIN KETOROLAC (TORADOL) 10 MG PO Q6H PRN PRN PAIN #20 TABS Patient Instructions ED Cellulitis, Facial Departure Forms WORK/SCHOOL EXCUSE VARIABLE Restrictions apply through 01/15/23 at 0554 RPT #:[id number] END OF REPORT [facility] 2022-11-14 09:15:35 Formatting of this n ote is different from the original. TRANSITIONAL CARE MANAGEMENT ASSESSMENT 11/14/2022 Don Amato [id number] Don Amato is a 32 year old /White female was admitted on 11/10/[address] She was discharged on 11/13/22 with discharge disposition of HR- Routine Discharge. Admitting Physician: Mitch Robertson Discharge Diagnosis: Alcohol abuse [F10.10] Pt. Verbalized understanding discharge instructions. Linked Episodes Type: Episode: Status: Noted: Resolved: Last update: Updated by: TRANSITION OF CARE tcm Active 11/14/2022 11/14/2022 9:13 AM Thelma Slaughter LVN Comments: TCM Xoj-uumx-mk-face outreach documentation: Discharge Assessment Chart Assessed: 11/14/22 TCM Outreach Completed: 11/14/22 Do you have a few minutes to speak with me about how you are doing at home?: Yes Discharge Instructions Do you understand your at-home instructions?: Yes Medications Have you filled your prescriptions and do you have them in your home? : No (Will get today.) Do you know how to take your medications?: Yes Can you provide me with the names or descriptions of any xrsv-fmx-mgbaffw or supplements you are currently taking?: No Supplies Did you receive applicable home medical supplies/equipment?: N/A Follow Up Appointment Has a follow up appointment been scheduled?: No May I assist with scheduling this appointment?: Patient will schedule Do you have any questions about your follow up appointments?: No Are you able to get to your appointment? Who will be taking you?: Yes (self) Home Health Assistance Has the home health nurse contacted you since you've been home?: N/A Survey - Recognition Is there anything you would like to share about your recent hospitalization, or anyone you would like to recognize?: No Do you have any suggestions for improvement?: No Do you have any other questions or concerns at this time?: No Future Appointments: Thelma Slaughter LVN [facility] 2022-11-13 17:58:18 Formatting of this n ote might be different from the original. Problem: Falls, Risk of Goal: Absence of falls 11/13/2022 1758 by Nicole Duarte RN Outcome: Adequate for discharge 11/13/2022 1122 by Nicole Duarte RN Outcome: Progressing as expected Problem: Pain Goal: Control of pain at or below patient's documented comfort goal 11/13/2022 1758 by Nicole Duarte RN Outcome: Adequate for discharge 11/13/2022 1122 by Nicole Duarte RN Outcome: Progressing as expected Goal: Reduction in pain sensation 11/13/2022 1758 by Nicole Duarte RN Outcome: Adequate for discharge 11/13/2022 1122 by Nicole Duarte RN Outcome: Progressing as expected Problem: Skin integrity Impaired (Risk or Actual) Goal: Prevention of new skin breakdown 11/13/2022 1758 by Nicole Duarte RN Outcome: Adequate for discharge 11/13/2022 1122 by Nicole Duarte RN Outcome: Progressing as expected Problem: Sleep Pattern Disturbance Goal: Able to sleep 11/13/2022 1758 by Nicole Duarte RN Outcome: Adequate for discharge 11/13/2022 1122 by Nicole Duarte RN Outcome: Progressing as expected Nicole Duarte RN [facility] 2022-11-13 11:23:03 Formatting of this n ote might be different from the original. Problem: Discharge Planning Goal: Adequate for discharge Outcome: Progressing as expected Problem: Falls, Risk of Goal: Absence of falls Outcome: Progressing as expected Problem: Pain Goal: Control of pain at or below patient's documented comfort goal Outcome: Progressing as expected Goal: Reduction in pain sensation Outcome: Progressing as expected Problem: Skin integrity Impaired (Risk or Actual) Goal: Prevention of new skin breakdown Outcome: Progressing as expected Problem: Sleep Pattern Disturbance Goal: Able to sleep Outcome: Progressing as expected [facility] 2022-11-13 00:19:24 Formatting of this n ote might be different from the original. Problem: Discharge Planning Goal: Adequate for discharge Outcome: Progressing as expected Problem: Falls, Risk of Goal: Absence of falls Outcome: Progressing as expected Problem: Pain Goal: Control of pain at or below patient's documented comfort goal Outcome: Progressing as expected Goal: Reduction in pain sensation Outcome: Progressing as expected Problem: Skin integrity Impaired (Risk or Actual) Goal: Prevention of new skin breakdown Outcome: Progressing as expected Problem: Sleep Pattern Disturbance Goal: Able to sleep Outcome: Progressing as expected [facility] 2022-11-12 07:38:05 Formatting of this n ote might be different from the original. Problem: Discharge Planning Goal: Adequate for discharge Outcome: Progressing as expected Goal: Effective communication Outcome: Resolved Problem: Falls, Risk of Goal: Absence of falls Outcome: Progressing as expected Problem: Pain Goal: Control of pain at or below patient's documented comfort goal Outcome: Progressing as expected Goal: Reduction in pain sensation Outcome: Progressing as expected Problem: Skin integrity Impaired (Risk or Actual) Goal: Prevention of new skin breakdown Outcome: Progressing as expected Problem: Sleep Pattern Disturbance Goal: Able to sleep Outcome: Progressing as expected [facility] Cornelia De Los Santos RN [facility] 2022-11-11 23:18:33 Formatting of this n ote might be different from the original. Problem: Discharge Planning Goal: Adequate for discharge Outcome: Progressing as expected Goal: Effective communication Outcome: Progressing as expected Problem: Falls, Risk of Goal: Absence of falls Outcome: Progressing as expected Problem: Pain Goal: Control of pain at or below patient's documented comfort goal Outcome: Progressing as expected Goal: Reduction in pain sensation Outcome: Progressing as expected Problem: Skin integrity Impaired (Risk or Actual) Goal: Prevention of new skin breakdown Outcome: Progressing as expected Problem: Sleep Pattern Disturbance Goal: Able to sleep Outcome: Progressing as expected [facility] 2022-11-10 22:12:45 Formatting of this n ote might be different from the original. Problem: Discharge Planning Goal: Adequate for discharge Outcome: Progressing as expected Goal: Effective communication Outcome: Progressing as expected Problem: Pain Goal: Control of pain at or below patient's documented comfort goal Outcome: Progressing as expected Goal: Reduction in pain sensation Outcome: Progressing as expected Problem: Falls, Risk of Goal: Absence of falls Outcome: Progressing as expected Problem: Skin integrity Impaired (Risk or Actual) Goal: Prevention of new skin breakdown Outcome: Progressing as expected Patty Burgos RN [facility] 2022-11-10 20:08:49 Formatting of this n ote might be different from the original. Pt stable for transfer to [facility] 8[facility]. Pt to floor with ED RNMarvin and PCT. Pt on stretcher. Zoll defibrillator and ambu bag present on bed, pt on tele monitoring monitored by RN. Jeanna Wells RN [facility] 2022-11-10 19:34:11 Formatting of this n ote might be different from the original. Per MICU patient can go to [facility], primary RN notified. [facility] 2022-11-10 19:25:52 Formatting of this n ote might be different from the original. This RN contacted [facility] regarding bed assignment, [facility] reports awaiting ICU bed availability. [facility] 2022-11-10 19:13:36 Formatting of this n ote might be different from the original. Pt resting quietly. NAD. ABC's intact. Skin w/d. Remains on monitor, SpO2, NIBP. Bed in low position, rails up x 2. Jean Gerard RN [facility] 2022-11-10 18:21:43 Formatting of this n ote might be different from the original. ICU MD at bedside Karen Wilkerson RN [facility] 2022-11-10 18:13:37 Formatting of this n ote might be different from the original. Pt still having halllucinations, pulling at monitor wires and IV line, attempting to get out of bed. Trying to eat imaginary foods. Dr Judge made aware T [facility] 2022-11-10 18:08:00 Formatting of this n ote might be different from the original. Pt placed on full cardiac cath lab technologist with continuous pulse ox monitoring and serial blood pressures. Bed in lowest and locked position, side rails up. Spouse at bedside. [facility] 2022-11-10 17:50:00 Formatting of this n ote might be different from the original. Pt began experiencing extreme increase in hallucinations. Talking to herself. Giving report to nonexistent MD at bedside. Talking about a sick dog. Talking to her children who are not present. Dr Judge made aware [facility] 2022-11-10 16:47:43 Formatting of this n ote might be different from the original. Don Amato is a 32 year old female to ED for withdrawal symptoms from ETOH. Pt reports recent hx of pancreatitis. Reports current delusions and abd pain. Speaking clearly. Last ETOH was today. Pt reports feeling shaking and tremors. 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 Pt's reported that Pt has been talking about things that are not there and seeing things that does not exist. Pt was admitted to [facility] for pancreatitis on 11/06/22 and was discharged on 11/07/22. Pt states the last time she drank alcohol was 6 days ago. Pt denies fever, chills, chest pain, SOB, abdominal pain, nausea, vomiting, diarrhea Past Medical History/Immunizations: Past Medical History: Diagnosis Date ADHD ETOH abuse 08/16/2020 Quit per pt report, 2020 HTN (hypertension) on meds Tobacco abuse 05/31/2018 Tetanus received in last 5 years: Unknown Allergies: No Known Allergies Past Social History: Tobacco Use Former; Types: Cigarettes Passive Exposure: Never Smokeless Tobacco: Never used smokeless tobacco. Alcohol Use No. Drug Use No. Sexual Activity Sexually active; Partners: Male; Control/Protection: None. Past Surgical History: Past Surgical History: Procedure Laterality Date HERNIA REPAIR 2014 LAPAROSCOPIC HIATAL HERNIA REPAIR LAPAROSCOPIC HIATAL HERNIA REPAIR Bilateral with mesh METACARPAL CLOSED REDUCTION WITH PERCUTANEOUS PINNING Left 11/13/2021 Surgeon: Cathie Ross MD; Location: [facility] LOC[facility] Review of Systems: Review of Systems Constitutional: Negative. HENT: Negative. Eyes: Negative. Respiratory: Negative. Cardiovascular: Positive for palpitations. Gastrointestinal: Negative. Genitourinary: Negative. Musculoskeletal: Negative. Skin: Negative. Neurological: Positive for tremors (Generalized). Psychiatric/Behavioral: Positive for hallucinations (Visual and auditory). Endocrine: Endocrine negative Physical Exam: ED Triage Vitals [11/10/22 1650] Weight 49 kg (108 lb) Actual or estimated Height BP (!) 155/103 Pulse 134 Resp 18 Temp 36.8 ?C (98.3 ?F) Temp src SpO2 99 % Measured on Physical Exam Vitals and nursing note reviewed. Constitutional: General: She is not in acute distress. Appearance: Normal appearance. She is not ill-appearing or toxic-appearing. HENT: Head: Atraumatic. Right Ear: Tympanic membrane, ear canal and external ear normal. Left Ear: Tympanic membrane, ear canal and external ear normal. Nose: Nose normal. Mouth/Throat: Mouth: Mucous membranes are dry. Pharynx: Oropharynx is clear. Eyes: Extraocular Movements: Extraocular movements intact. Conjunctiva/sclera: Conjunctivae normal. Pupils: Pupils are equal, round, and reactive to light. Cardiovascular: Rate and Rhythm: Regular rhythm. Tachycardia present. Pulses: Normal pulses. Heart sounds: Normal heart sounds. Pulmonary: Effort: Pulmonary effort is normal. Breath sounds: Normal breath sounds. Abdominal: General: Abdomen is flat. Bowel sounds are normal. Palpations: Abdomen is soft. Musculoskeletal: General: Normal range of motion. Cervical back: Neck supple. Skin: General: Skin is warm and dry. Capillary Refill: Capillary refill takes less than 2 seconds. Neurological: Mental Status: She is alert. Comments: Generalized tremors noted Psychiatric: Comments: Auditory and visual hallucinations present Radiology: No orders to display Lab Results: Lab Results COMP. METABOLIC PANEL (01874) - Abnormal Result Value Ref Range NA 145 135 - 145 mmol/L K 3.6 3.5 - 5.0 mmol/L CL 104 98 - 108 mmol/L CO2 TOTAL 29 23 - 31 mmol/L AGAP 12 2 - 16 BUN 20 7 - 23 mg/dL GLUCOSE 75 70 - 110 mg/dL CREATININE 0.62 0.50 - 1.04 mg/dL TOTAL BILI 1.6 (*) 0.1 - 1.1 mg/dL CALCIUM 9.8 8.6 - 10.6 mg/dL T PROTEIN 7.5 6.3 - 8.2 g/dL ALBUMIN 4.4 3.5 - 5.0 g/dL ALK PHOS 142 (*) 34 - 122 U/L ALTv 33 5 - 35 U/L AST(SGOT) 65 (*) 13 - 40 U/L eGFR 111.6 mL/min/1.73m2 CBC WITH DIFF - Abnormal WBC 5.72 4.30 - 11.10 10*3/?L RBC 3.93 3.93 - 5.25 10*6/?L HGB 13.2 11.6 - 15.0 g/dL HCT 40.5 35.7 - 45.2 % MCV 103.1 (*) 80.6 - 95.5 fL MCH 33.6 (*) 25.9 - 32.8 pg MCHC 32.6 31.6 - 35.1 g/dL RDW-SD 44.8 39.0 - 49.9 fL RDW-CV 11.8 (*) 12.0 - 15.5 % PLT 255 166 - 358 10*3/?L MPV 9.9 9.5 - 12.9 fL NRBC/100 WBC 0.0 0.0 - 10.0 /100 WBCs NRBC x10^3 <0.01 10*3/?L GRAN MAT (NEUT) % 63.5 % IMM GRAN % 0.30 % LYMPH % 18.7 % MONO % 16.3 % EOS % 0.2 % BASO % 1.0 % GRAN MAT x10^3(ANC) 3.63 1.88 - 7.09 10*3/uL IMM GRAN x10^3 <0.03 0.00 - 0.06 10*3/uL LYMPH x10^3 1.07 (*) 1.32 - 3.29 10*3/uL MONO x10^3 0.93 (*) 0.33 - 0.92 10*3/uL EOS x10^3 <0.03 (*) 0.03 - 0.39 10*3/uL BASO x10^3 0.06 0.01 - 0.07 10*3/uL LIPASE - Abnormal LIPASE 1,920 (*) 0 - 220 U/L TEST, SERUM PREG SERUM Negative ETHANOL ALCOHOL <10 mg/dL MRSA / MSSA SCREEN BY PCR, NARES URINE DRUG (IMMUNOASSAY) - COMPREHENSIVE DRUG SCREEN EKG: If EKG completed, see Procedure Note. Orders and Treatments: Orders Placed This Encounter Procedures Critical Care COMP. METABOLIC PANEL (63648) CBC WITH DIFF TEST, SERUM LIPASE ETHANOL MRSA / MSSA Screen by PCR, Nares DRUG SCREEN PANEL 2 URINE Orders Placed This Encounter Medications proMETHazine (PHENERGAN) 25 mg in NaCl 0.9% (NS) 50 mL piggyback LORazepam (ATIVAN) injection 1 mg NaCl 0.9% (NS) bolus infusion 1,000 mL LORazepam (ATIVAN) injection 2 mg diazePAM (VALIUM) injection 10 mg heparin (porcine) injection 5,000 Units dexMEDEtomidine 200 mcg in 0.9 % NaCl 50 mL (PRECEDEX) RTU IV infusion LORazepam (ATIVAN) injection 1 mg thiamine (VITAMIN B1) 100 mg in NaCl 0.9% (NS) piggyback foLIC acid (FOLATE) injection 1 mg magnesium sulfate in water 2 gram/50 mL (4 %) infusion 2 g NaCl 0.9% (NS) IV infusion 1,000 mL First Provider Eval: ED Events Date/Time Event User Comments 11/10/221654 Medical Screening Begins SLIM HIGHTOWER -- 11/10/221654 First Provider Evaluation SLIM HIGHTOWER -- ED COURSE ED Course as of 11/10/221943 Sat Nov 10, 2022 1838 ICU at bedside [OA] 1825 Pt is to be admitted to ICU for alcohol withdrawal [OA] 1824 Pt was having acute hallucination in the ER [OA] ED Course User Index [OA] Slim Hightower MD Diagnosis/Impression as of 11/10/221943 Alcohol abuse Alcohol withdrawal delirium Procedures: Critical Care Performed by: Slim Hightower MD Authorized by: Adelina Judge MD Critical care provider statement: Critical care time (minutes): 33 Critical care start time: 11/10/2022 6:00 PM Critical care end time: 11/10/2022 6:33 PM Critical care was necessary to treat or prevent imminent or life-threatening deterioration of the following conditions: 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 Critical care was time spent personally by me on the following activities: Development of treatment plan with patient or surrogate, discussions with consultants, evaluation of patient's response to treatment, examination of patient, ordering and performing treatments and interventions, ordering and review of laboratory studies, re-evaluation of patient's condition, review of old charts and pulse oximetry I assumed direction of critical care for this patient from another provider in my specialty: no Care discussed with: admitting provider Comments: CIWA-Ar score of 27 Given Ativan x 2 but Pt did not respond to treatment Given Valium- Pt responded to treatment MDM: Medical Decision Making 32 y/o female with hx of alcohol abuse, alcoholic pancreatitis presented for alcohol withdrawal. Pt was admitted on 11/06/22 and discharged on 11/07/22 for acute pancreatitis at [facility]. Pt states that was the last time she had alcohol. PE indicates tachycardia, generalized tremors, active auditory and visual hallucinations CIWA-Ar for Alcohol Withdrawal score was 27; Tremor (7), Agitation (6), Auditory hallucination (6), Visual hallucination (6), Orientation/Clouding of Sensorium (2) Pt started becoming restless in the ER room and was given Ativan x 2, then Valium ICU was consulted Problems Addressed: Alcohol abuse: chronic illness or injury Details: cbc, cmp, lipase, , ethanol Alcohol withdrawal delirium: acute illness or injury Details: cbc, cmp, lipase, , ethanol, ICU consult Amount and/or Complexity of Data Reviewed Independent Historian: spouse Details: Provided supporting details on Pt's symptoms and history External Data Reviewed: labs and notes. Labs: ordered. Decision-making details documented in ED Course. Discussion of management or test interpretation with external provider(s): ICU Risk Prescription drug management. Parenteral controlled substances. Decision regarding hospitalization. Flowsheet Documentation: Scoring Tools: No data recorded Disposition/Condition: ED Disposition ED Disposition Admit - Inpatient Condition Stable Comment -- Discharge Medications: Patient's Medications START taking these medications No medications on file CONTINUE taking these medications which have NOT CHANGED LISDEXAMFETAMINE (VYVANSE) 60 MG CAPSULE Take 1 capsule by mouth every morning. LISINOPRIL 2.5 MG TABLET Take 1 tablet by mouth in the morning for 30 days. METOPROLOL SUCCINATE XL 25 MG 24 HR TABLET Take 1 tablet by mouth daily. START taking Modified Medications as Prescribed No medications on file STOP taking these medications No medications on file Follow-up: Electronically signed by: Slim Hightower MD 11/10/221944 Associated attestation - Adelina Judge MD - 11/10/2022 8:07 PM CDT No results found for this visit on 11/10/22. Recent Results (from the past 24 hour(s)) COMP. METABOLIC PANEL (99337) Collection Time: 11/10/22 5:21 PM Result Value Ref Range NA 145 135 - 145 mmol/L K 3.6 3.5 - 5.0 mmol/L CL 104 98 - 108 mmol/L CO2 TOTAL 29 23 - 31 mmol/L AGAP 12 2 - 16 BUN 20 7 - 23 mg/dL GLUCOSE 75 70 - 110 mg/dL CREATININE 0.62 0.50 - 1.04 mg/dL TOTAL BILI 1.6 (H) 0.1 - 1.1 mg/dL CALCIUM 9.8 8.6 - 10.6 mg/dL T PROTEIN 7.5 6.3 - 8.2 g/dL ALBUMIN 4.4 3.5 - 5.0 g/dL ALK PHOS 142 (H) 34 - 122 U/L ALTv 33 5 - 35 U/L AST(SGOT) 65 (H) 13 - 40 U/L eGFR 111.6 mL/min/1.73m2 CBC WITH DIFF Collection Time: 11/10/22 5:21 PM Result Value Ref Range WBC 5.72 4.30 - 11.10 10*3/?L RBC 3.93 3.93 - 5.25 10*6/?L HGB 13.2 11.6 - 15.0 g/dL HCT 40.5 35.7 - 45.2 % MCV 103.1 (H) 80.6 - 95.5 fL MCH 33.6 (H) 25.9 - 32.8 pg MCHC 32.6 31.6 - 35.1 g/dL RDW-SD 44.8 39.0 - 49.9 fL RDW-CV 11.8 (L) 12.0 - 15.5 % PLT 255 166 - 358 10*3/?L MPV 9.9 9.5 - 12.9 fL NRBC/100 WBC 0.0 0.0 - 10.0 /100 WBCs NRBC x10^3 <0.01 10*3/?L GRAN MAT (NEUT) % 63.5 % IMM GRAN % 0.30 % LYMPH % 18.7 % MONO % 16.3 % EOS % 0.2 % BASO % 1.0 % GRAN MAT x10^3(ANC) 3.63 1.88 - 7.09 10*3/uL IMM GRAN x10^3 <0.03 0.00 - 0.06 10*3/uL LYMPH x10^3 1.07 (L) 1.32 - 3.29 10*3/uL MONO x10^3 0.93 (H) 0.33 - 0.92 10*3/uL EOS x10^3 <0.03 (L) 0.03 - 0.39 10*3/uL BASO x10^3 0.06 0.01 - 0.07 10*3/uL TEST, SERUM Collection Time: 11/10/22 5:21 PM Result Value Ref Range PREG SERUM Negative LIPASE Collection Time: 11/10/22 5:21 PM Result Value Ref Range LIPASE 1,920 (H) 0 - 220 U/L ETHANOL Collection Time: 11/10/22 5:21 PM Result Value Ref Range ALCOHOL <10 mg/dL Recent Labs 11/07/22 0437 PTPAT 14.2 Here for alcohol withdrawal and having hallucinations Ativan given not improve More given. Pt hallucinatin Valium given and pt improved Will admit to icu for ETOH withdrawal and delerium [place] [facility] 25 Addendum I personally examined and participated in decision-making for this patient with the resident, Dr Hightower. Please see the resident note for further details. Lab and imaging studies reviewed Findings discussed with patient Diagnosis 1. Alcohol withdrawal, DT Plan 1. ICU for BENZOs and monitoring EM-EMERGENCY MEDICINE [facility] 2022-11-07 01:38:17 Formatting of this n ote might be different from the original. Problem: Pain Goal: Control of pain at or below patient's documented comfort goal Outcome: Progressing as expected Problem: Nausea/Vomiting Goal: Absence of nausea/vomiting Outcome: Progressing as expected Problem: Infection Risk Goal: Absence of infection Outcome: Progressing as expected Problem: Bowel Function - Altered Goal: Return to baseline elimination pattern Outcome: Progressing as expected T [facility] 2022-11-06 14:51:28 Formatting of this n ote might be different from the original. Problem: Pain Goal: Control of pain at or below patient's documented comfort goal Outcome: Progressing as expected Problem: Nausea/Vomiting Goal: Absence of nausea/vomiting Outcome: Progressing as expected Problem: Infection Risk Goal: Absence of infection Outcome: Progressing as expected Problem: Bowel Function - Altered Goal: Return to baseline elimination pattern Outcome: Progressing as expected Leida Dumont RN [facility] 2022-11-06 06:37:36 Formatting of this n ote might be different from the original. Problem: Pain Goal: Control of pain at or below patient's documented comfort goal Outcome: Progressing as expected Problem: Nausea/Vomiting Goal: Absence of nausea/vomiting Outcome: Progressing as expected Problem: Infection Risk Goal: Absence of infection Outcome: Progressing as expected Problem: Bowel Function - Altered Goal: Return to baseline elimination pattern Outcome: Progressing as expected [facility] 2022-11-06 06:22:17 Formatting of this n ote might be different from the original. Patient admitted to med/surg for diagnosis of flank pain and acute pancreatitis Patient agrees to admission, discussed plan of care with patient and family. Patient is awake, alert, oriented, resp reg unlabored, color appropriate for race, PIV intact No adverse reaction to medications administered while in ED Belongings with patient to unit Report to Iman HOFF D5W in 0.9%NS infusing at 200 mL/hr during transport Tea Wren RN [facility] 2022-11-06 01:05:02 Formatting of this n ote might be different from the original. Pt to ed via pov. Alert and ambulatory. C/o L side flank pain with no associated urinary symptoms. Pt states that she was feeling constipated for over a week and has used laxatives and did an enema today. She evacuated a large amount of stool and approx 2 hours later the flank pain started. Radiates to the front of L side of abdomen. 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 [facility] 2022-11-06 01:00:00 Formatting of this n ote is different from the original. Images from the original note were not included. [facility] Emergency Department Note Patient Name: Don Amato Date of : 1990 32 year old female Treatment Room: Room/bed info not found Primary Care Physician: Leander Malagon Patient Escorted by: Self [9] Mode of Arrival: Personal means [1] EMS Treatment Prior to ED Arrival: Chief Complaint: Chief Complaint Patient presents with Flank Pain L side History of Present Illness: Don Amato is a 32 year old female who presents to the ED with complaint of LLQ pain that began around 3 pm today .She reports history of constipation for the last 3 years . Has been using OTC laxatives and today used an enema, will large results . Pain began following BM . Endorses nausea without vomiting. History provided by: Patient Abdominal Pain Pain location: LLQ Pain quality: aching, cramping and sharp Pain radiates to: L flank Pain severity: Severe Onset quality: Sudden Duration: 10 hours Timing: Constant Progression: Worsening Chronicity: New Context: laxative use Context: not alcohol use, not awakening from sleep, not diet changes, not eating, not previous surgeries, not recent illness and not retching Relieved by: Nothing Worsened by: Movement, palpation, position changes and deep breathing Ineffective treatments: Lying down, position changes and bowel activity Associated symptoms: constipation, flatus and nausea Associated symptoms: no anorexia, no belching, no chest pain, no chills and no vomiting Past Medical History/Immunizations: Past Medical History: Diagnosis Date ADHD ETOH abuse 08/16/2020 Quit per pt report, 2020 HTN (hypertension) on meds Tobacco abuse 05/31/2018 Tetanus received in last 5 years: Yes Childhood immunizations: Up-to-date Allergies: No Known Allergies Past Social History: Tobacco Use Every Day; 1.00 packs/day; Types: Cigarettes Smokeless Tobacco: Never used smokeless tobacco. Alcohol Use No. Drug Use No. Sexual Activity Sexually active; Partners: Male; Control/Protection: None. Past Surgical History: Past Surgical History: Procedure Laterality Date HERNIA REPAIR 2014 LAPAROSCOPIC HIATAL HERNIA REPAIR LAPAROSCOPIC HIATAL HERNIA REPAIR Bilateral with mesh METACARPAL CLOSED REDUCTION WITH PERCUTANEOUS PINNING Left 11/13/2021 Surgeon: Cathie Ross MD; [place] [facility] [place] of Systems: Review of Systems Constitutional: Negative for chills. Respiratory: Negative. Cardiovascular: Negative for chest pain. Gastrointestinal: Positive for abdominal pain, constipation, flatus and nausea. Negative for anorexia and vomiting. Genitourinary: Negative. Musculoskeletal: Negative. Skin: Negative. Neurological: Negative. Psychiatric/Behavioral: Negative. All other systems reviewed and are negative. Endocrine: Endocrine negative Physical Exam: ED Triage Vitals Weight 11/06/22106 45.4 kg (100 lb) Actual or estimated 11/06/22106 Actual Height 11/06/22106 1.702 m (5' 7") BP 11/06/22106 (!) 147/108 Pulse 11/06/22106 93 Resp 11/06/22106 20 Temp 11/06/22 0108 36.5 ?C (97.7 ?F) Temp source 11/06/22106 Oral SpO2 11/06/22106 100 % Measured on 11/06/22106 Room air Physical Exam Vitals and nursing note reviewed. Constitutional: General: She is not in acute distress. Appearance: She is well-developed. She is obese. She is not ill-appearing, toxic-appearing or diaphoretic. HENT: Head: Normocephalic. Right Ear: External ear normal. Left Ear: External ear normal. Nose: Nose normal. Mouth/Throat: Mouth: Mucous membranes are moist. Pharynx: Oropharynx is clear. No oropharyngeal exudate or posterior oropharyngeal erythema. Eyes: General: No scleral icterus. Right eye: No discharge. Left eye: No discharge. Extraocular Movements: Extraocular movements intact. Conjunctiva/sclera: Conjunctivae normal. Pupils: Pupils are equal, round, and reactive to light. Neck: Vascular: No carotid bruit. Cardiovascular: Rate and Rhythm: Normal rate and regular rhythm. Pulses: Normal pulses. Heart sounds: Normal heart sounds. No murmur heard. No friction rub. No gallop. Pulmonary: Effort: Pulmonary effort is normal. No respiratory distress. Breath sounds: Normal breath sounds. No stridor. No wheezing, rhonchi or rales. Chest: Chest wall: No tenderness. Abdominal: General: Bowel sounds are normal. There is no distension. Palpations: Abdomen is soft. There is no mass. Tenderness: There is abdominal tenderness. There is no right CVA tenderness, left CVA tenderness, guarding or rebound. Hernia: No hernia is present. Musculoskeletal: General: No swelling, tenderness, deformity or signs of injury. Normal range of motion. Cervical back: Normal range of motion and neck supple. No rigidity or tenderness. Right lower leg: No edema. Left lower leg: No edema. Lymphadenopathy: Cervical: No cervical adenopathy. Skin: General: Skin is warm and dry. Capillary Refill: Capillary refill takes less than 2 seconds. Coloration: Skin is not jaundiced or pale. Findings: No bruising, erythema or lesion. Neurological: General: No focal deficit present. Mental Status: She is alert and oriented to person, place, and time. Cranial Nerves: No cranial nerve deficit. Sensory: No sensory deficit. Motor: No weakness. Coordination: Coordination normal. Gait: Gait normal. Psychiatric: Mood and Affect: Mood normal. Behavior: Behavior normal. Thought Content: Thought content normal. Judgment: Judgment normal. Radiology: No orders to display Lab Results:pending Lab Results URINALYSIS - Abnormal Result Value Ref Range APPEARANCE Clear Clear COLOR Yellow Yellow PH 7.0 4.8 - 8.0 SP GRAVITY 1.011 1.003 - 1.030 GLU U QUAL Normal Normal BLOOD Negative Negative KETONES 5 mg/dL (*) Negative PROTEIN Negative Negative UROBILIN Normal Normal BILIRUBIN Negative Negative NITRITE Negative Negative LEUK JASMINA Negative Negative RBC/HPF 0 0 - 3 HPF WBC/HPF 0 0 - 5 HPF BACTERIA Negative Negative MUCOUS Slight (*) Negative LPF SQ EPITH 1 HPF CBC WITH DIFF - Abnormal WBC 6.07 4.30 - 11.10 10*3/?L RBC 4.32 3.93 - 5.25 10*6/?L HGB 15.1 (*) 11.6 - 15.0 g/dL HCT 43.2 35.7 - 45.2 % MCV 100.0 (*) 80.6 - 95.5 fL MCH 35.0 (*) 25.9 - 32.8 pg MCHC 35.0 31.6 - 35.1 g/dL RDW-SD 41.7 39.0 - 49.9 fL RDW-CV 11.3 (*) 12.0 - 15.5 % PLT 206 166 - 358 10*3/?L MPV 10.1 9.5 - 12.9 fL NRBC/100 WBC 0.0 0.0 - 10.0 /100 WBCs NRBC x10^3 <0.01 10*3/?L GRAN MAT (NEUT) % 68.0 % IMM GRAN % 0.30 % LYMPH % 19.1 % MONO % 11.0 % EOS % 0.3 % BASO % 1.3 % GRAN MAT x10^3(ANC) 4.12 1.88 - 7.09 10*3/uL IMM GRAN x10^3 <0.03 0.00 - 0.06 10*3/uL LYMPH x10^3 1.16 (*) 1.32 - 3.29 10*3/uL MONO x10^3 0.67 0.33 - 0.92 10*3/uL EOS x10^3 <0.03 (*) 0.03 - 0.39 10*3/uL BASO x10^3 0.08 (*) 0.01 - 0.07 10*3/uL POCT TEST - Normal POCT PREG Negative On board controls acceptable with C Line Yes COMP. METABOLIC PANEL (14829) LIPASE Orders and Treatments: Orders Placed This Encounter Procedures CT ABDOMEN PELVIS W CONTRAST URINALYSIS POCT TEST CBC WITH DIFF COMP. METABOLIC PANEL (99653) LIPASE Orders Placed This Encounter Medications DISCONTD: lisdexamfetamine (VYVANSE) 60 mg capsule ketorolac (TORADOL) injection 30 mg ondansetron (ZOFRAN (PF)) injection 4 mg FENTanyl PF (SUBLIMAZE (PF)) injection 50 mcg NaCl 0.9% (NS) bolus infusion 1,000 mL iopamidol (ISOVUE 370-500 mL) injection 70 mL First Provider Eval: ED Events Date/Time Event User Comments 11/06/22109 Medical Screening Begins ERIKA SINGLETARY -- 11/06/22109 First Provider Evaluation ERIKA SINGLETARY -- ED COURSE ED Course as of 11/06/22304Nov 06, 2022 [address] Lopez pending labs and CT [PD] ED Course User Index [PD] Zoë Singletary NP Diagnosis/Impression as of 11/06/22304 Flank pain Acute pancreatitis, unspecified complication status, unspecified pancreatitis type Procedures: Procedures MDM: Medical Decision Making Don Amato is a 32 year old female who presents to the ED with complaint of LLQ pain that began around 3 pm today .She reports history of constipation for the last 3 years . Has been using OTC laxatives and today used an enema, will large results . Pain began following BM . Endorses nausea without vomiting. Plan: CT ABDOMEN PELVIS W CONTRAST URINALYSIS POCT TEST CBC WITH DIFF COMP. METABOLIC PANEL (38557) LIPASE Amount and/or Complexity of Data Reviewed Labs: ordered. Decision-making details documented in ED Course. Radiology: ordered. Decision-making details documented in ED Course. Risk Prescription drug management. Parenteral controlled substances. Disposition/Condition: Pending labs and CT results Electronically signed by: Zoë Singletary NP 11/06/22222 Associated attestation - Suleman Lopez MD - 11/06/2022 4:28 AM CDT I personally examined the patient on 11/06/2022 and agree with Raghav's DAMION note with the following addition(s): Left sided abdominal pain likely related to pancreatitis- tail of pancreas with adjacent colitis. Will check US , r/out Cholecystitis and Admit to hospital for IVF's and Inpatient Surgical vs. GI Consultation. Pancreatitis likely alcohol related. I actively participated in the decision-making process. Please see the Midlevel Provider's note for additional details. [facility] Emergency Physician [facility] 2022-04-06 19:17:00 [facility] ([facility]) EMERGENCY PROVIDER REPORT REPORT#:[id number] REPORT STATUS: Signed DATE:04/06/22 TIME:1916 PATIENT: DON AMATO UNIT #: [id number] ROOM/BED: : 90 AGE: 32 SEX: F PCP PHYS: Arnol Gonsalez MD SERVICE AUTHOR: Shana Ross 3D TECHNOLOGIST * ALL edits or amendments must be made on the electronic/computer document * Shana Ross 04/06/221916: HPI-Dental/Mouth Prob Free Text HPI Notes Free Text HPI Notes 32-year-old female presents to the emergency department with complaints of fever facial pain swelling after having a tooth extracted on 03/27. Patient states she was given antibiotics by her dentist on 04/03 and followed up again yesterday who referred her to be seen at the emergency department for IV antibiotics. Patient denies chest pain shortness of breath abdominal pain nausea vomiting diarrhea. General Confirmed Patient Yes Initial Greet Date/Time 04/06/221908 Presentation Chief Complaint Gum swelling, Mouth pain Hx Obtained From Patient Context of Onset Recent dental procedure Associated with Reports: Can't fully open mouth, Chills, Fever. Denies: Bleeding, Drooling, Nausea, Sore throat. Exacerbated by Nothing Relieved by Nothing Review of Systems ROS Statements All systems rev neg except as marked. Past Medical History - Adult Stated Complaint RIGHT LOWER TOOTH PAIN Allergies Coded Allergies: No Known Allergies (03/12/17) Home Medications Active Scripts IBUPROFEN (MOTRIN) 600 MG PO Q6H PRN PRN MILD PAIN (1-3) IBUPROFEN (MOTRIN) 600 MG PO Q6H PRN PRN MILD PAIN (1-3) #20 TAB Prov: 03/13/17 Reported Medications VIT/FE FUMARATE/FA ( Multivitamin w/ Iron) Additional Medical History ADHD Physical Exam Vital Signs Vital Signs First Documented: Result Date Time Pulse Ox 96 04/06 1923 B/P 133/91 04/06 1923 B/P Mean 105 04/06 1923 O2 Delivery Room air 04/06 1923 Temp 98.4 04/06 1923 Pulse 123 04/06 1923 Resp 19 04/06 1923 Last Documented: Result Date Time Pulse Ox 99 04/06 2200 B/P 129/88 04/06 2200 B/P Mean 101 04/06 2200 O2 Delivery Room air 04/06 2200 Pulse 105 04/06 2200 Resp 17 04/06 2200 Temp 98.4 04/06 1923 Review of Vital Signs Reviewed Focused PE Ears/Nose/Throat Mouth Negative: Drooling, Pooling of secretions, Muffled voice. Dental/Gums Dental caries present, Tender to palpation, Gum tenderness. Negative: Dental abscess, Gum bleeding present, Gum erosion present, Gum discoloration. Free Text PE Notes Free Text PE Notes General/Const: Awake, Alert, No acute distress, Well appearing, Well hydrated, MS Head: Atraumatic, Normocephalic Eyes Atraumatic: EOMI, No nystagmus, No periorbital swelling, No scleral icterus Ears/Nose/Throat: Atraumatic, Airway patent, Mucous membranes moist, Pharynx NL, No trismus MS Neck: Atraumatic, Supple, No meningismus, Full range of motion Respiratory/Chest: Atraumatic, Breath sounds NL, Breath sounds = bilat, No respiratory distress Cardiovascular: Heart rate NL, Regular rhythm, Cap refill not delayed, Peripheral circulation NL Abdomen/GI: Atraumatic, Soft, Non-tender, No distention Back: Atraumatic, Full range of motion, Non-tender Skin: Skin Atraumatic, Color NL, No rash, Warm, Dry, Intact, Turgor NL, No swelling Neurologic: Oriented X3, Speech NL, No motor deficits, Cerebellar NL, Memory NL, Gait NL Psychiatric: Affect NL, Mood NL, Cognitive function NL, Judgment/insight NL, Thought content NL Interpretation Diagnostics Lab Results Interpretation Results Laboratory Tests 04/06/222013: [Embedded Image Not Available] Laboratory Tests: 04/06 2014 Chemistry Sodium (134 - 147 mmol/L) 139 Potassium (3.4 - 5.0 mmol/L) 3.9 Chloride (100 - 108 mmol/L) 100 Carbon Dioxide (21 - 32 mmol/L) 29 Anion Gap (4.0 - 15.0 GAP calc) 10.0 BUN (7 - 18 MG/DL) 14 Creatinine (0.6 - 1.0 MG/DL) 0.7 Glomerular Filtr Rate (>60 estGFR) >=60 max estimate Glucose (70 - 110 MG/DL) 77 Calcium (8.5 - 10.1 MG/DL) 8.8 Total Bilirubin (0.2 - 1.2 MG/DL) 0.60 AST (15 - 37 Unit/L) 146 H ALT (12 - 78 Unit/L) 67 Total Alk Phosphatase (45 - 117 Unit/L) 89 Total Protein (6.4 - 8.2 G/DL) 7.7 Albumin (3.4 - 5.0 G/DL) 3.9 Globulin (GM/dL) 3.8 Albumin/Globulin Ratio (1.2 - 2.2 RATIO) 1.0 L Hematology WBC (3.5 - 11.0 K/mm3) 3.2 L RBC (4.70 - 6.10 M/mm3) 4.17 L Hgb (10.4 - 14.9 G/DL) 13.8 Hct (31.5 - 44.1 %) 39.0 MCV (84.5 - 98.6 Fl) 93.5 MCH (27.0 - 34.2 pg) 33.1 MCHC (31.5 - 34.0 G/DL) 35.4 H RDW (11.5 - 14.5 SD) 12.1 Plt Count (150 - 450 K/mm3) 156 MPV (7.0 - 10.5 fL) 9.50 Neut % (Auto) (40 - 76 %) 47.1 Lymph % (Auto) (20.5 - 51.1 %) 40.9 [place] % (Auto) (1.7 - 9.3 %) 9.4 H Eos % (Auto) (0.0 - 6.0 %) 1.3 Baso % (Auto) (0.0 - 2.0 %) 1.3 Neut # (Auto) (1.8 - 7.6 K/mm3) 1.5 L Lymph # (Auto) (0.6 - 3.2 K/mm3) 1.3 [place] # (Auto) (0.3 - 1.1 K/mm3) 0.3 Eos # (Auto) (0.0 - 0.4 K/mm3) 0.0 Baso # (Auto) (0.0 - 0.1 K/mm3) 0.0 Abs Immat Gran (auto) (0.00 - 0.03 x10 3/uL) 0.00 Add Manual Diff (CRITERIA DIFF/SCN) NO Immature Gran % (0.0 - 5.0 %) 0.0 Nucleated RBC % (0.0 - 1.0 /100WBC%) 0.0 Recent Impressions: CAT SCAN - CT NECK W/CONTRAST 04/06 2117 Report Impression - Status: SIGNED Entered: 04/06/20222139 IMPRESSION: Findings consistent with a dental caries involving tooth in the right-sided mandible involving approximately tooth #30 without abscess or drainable collection. Impression By: Elise Arroyo M.D. Lab Imaging Statement Laboratory radiographic studies reviewed and considered in the medical decision-making. Re-Evaluation MDM Free Text MDM Notes Free Text MDM Notes The patient is discharged home with supportive care, a plan for symptom management/medication(s), and follow-up instructions that detail what to expect over the next 48 hours and what symptoms should prompt immediate return to the ED. Follow-up instructions have been explained in detail to the patient, and the instructions have been provided in written format. The patient is comfortable with the plan of care and has expressed an understanding of the discharge instructions. The patient and/or caregivers are aware that any significant change in condition or worsening of symptoms should prompt an immediate return to this or the closest emergency department or a call to 911. ED Course Medication(s) Ordered Medication(s) Ordered: Anti-Infective Agents Sig/Germain Start time Last Medication Dose Route Stop Time Status Admin Clindamycin 50 ML X1ED STA 04/06 1932 DC 04/06 Phosphate/Dextrose IV 04/06 Central Nervous System Agents Sig/Germain Start time Last Medication Dose Route Stop Time Status Admin Acetaminophen 650 MG X1ED STA 04/06 1933 DC 04/06 PO 04/06 1934 2019 Diagnostic Agents Sig/Germain Start time Last Medication Dose Route Stop Time Status Admin Iopamidol 100 ML .STK-MED ONE 04/06 2119 DC 04/06 IV 04/06 Electrolytic, Caloric, And Nilsa Sig/Germain Start time Last Medication Dose Route Stop Time Status Admin Sodium Chloride 50 ML .STK-MED ONE 04/06 2120 DC 04/06 IV 04/06 Patient Discharge Departure Vital Signs/Condition Vital Signs First Documented: Result Date Time Pulse Ox 96 04/06 1923 B/P 133/91 04/06 1923 B/P Mean 105 04/06 1923 O2 Delivery Room air 04/06 1923 Temp 98.4 04/06 1923 Pulse 123 04/06 1923 Resp 19 04/06 1923 Last Documented: Result Date Time Pulse Ox 99 04/06 2200 B/P 129/88 04/06 2200 B/P Mean 101 04/06 2200 O2 Delivery Room air 04/06 2200 Pulse 105 04/06 2200 Resp 17 04/06 2200 Temp 98.4 04/06 1923 All vital signs available at the time of this entry have been reviewed. Clinical Impression Clinical Impression Primary Impression: Dental caries Disposition Decision Discharge )( Discharged to Home Yes )( Time 2149 )( Date 04/06/22 Discharge/Care Plan Counseled Regarding Diagnosis, Lab results, Imaging studies, Need for follow-up, When to return to ED Patient Instructions ED Dental Cavity Additional Instructions Continue take your previously prescribed antibiotics and follow-up with your dentist. Discharge Note I have spoken with the patient and/or caregivers. I have explained the patient's condition, diagnoses and treatment plan based on the information available to me at this time. I have answered the patient's and/or caregiver's questions and addressed any concerns. The patient and/or caregivers have as good an understanding of the patient's diagnosis, condition and treatment plan as can be expected at this point. The vital signs have been stable. The patient's condition is stable and appropriate for discharge from the emergency department. The patient will pursue further outpatient evaluation with the primary care physician or other designated or consulting physician as outlined in the discharge instructions. The patient and/or caregivers are agreeable to this plan of care and follow-up instructions have been explained in detail. The patient and/or caregivers have received these instructions in written format and have expressed an understanding of the discharge instructions. The patient and/or caregivers are aware that any significant change in condition or worsening of symptoms should prompt an immediate return to this or the closest emergency department or a call to 911. Jian Salvador 04/07/22 0602: Patient Discharge Departure Discharge/Care Plan Referrals Provider Referral: [facility] Address: [address] [place] [address] [address] [place] [address] Supervising Physician Note MidLv Saw Pt Alone I have reviewed the PA/3D TECHNOLOGIST's note and plan of care. I was available for consultation as needed at all times during the patient's visit in the emergency department. I agree with the clinical impression, plan and disposition. at 2202 at 0602 RPT #: [id number] END OF REPORT [facility]
[2024-03-24] MEDS ORDERED: NA CHLORIDE 0.9% 1,000 ML ONE (13:25)
--- NOTE | 2024-03-24 13:37 | RAD REPORT ---
EXAMINATION: TWO VIEW CHEST XR CLINICAL INDICATION: Cough;Congestion TECHNIQUE: 2 views of the chest was performed. COMPARISON: Multiple recent prior radiographs reviewed. FINDINGS: The lungs are well inflated and clear. The heart is normal in size. No displaced fractures evident. IMPRESSION: No acute or significant abnormalities.
[2024-03-24 14:08] LABS: SARS-CoV-2 Antigen CONTROL BLUE LINE VIS/BG OK; SARS-CoV-2 Antigen Rapid Res Negative (Negative)
--- NOTE | 2024-03-24 14:20 | ER ---
Nurse's Notes [facility] Name: Ethel Amato Age: 34 yrs Sex: Female : 1990 Arrival Date: 03/24/2024 Time: 12:31 Bed 22 Private MD: Diagnosis: Acute upper respiratory infection, unspecified Presentation: 03/24 13:02 Chief complaint: Patient states: body aches and nose bleeds x3 days. states, "I can't kc6 keep my head up and just feel like I have the flu". Coronavirus screen: At this time, the client does not indicate any symptoms associated with coronavirus-19. Ebola Screen: No symptoms or risks identified at this time. Initial Sepsis Screen: Does the patient meet any 2 criteria? HR > 90 bpm. Does the patient have a suspected source of infection? No. Patient's initial sepsis screen is negative. Risk Assessment: Do you want to hurt yourself or someone else? Patient reports no desire to harm self or others. Onset of symptoms was March 24, 2024. 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 - Infectious Disease History:: Denies. - Social history:: Smoking status: Patient denies any tobacco usage or history of. Screenin:46 [facility] ED Fall Risk Assessment (Adult) History of falling in the last 3 months, jl7 including since admission No falls in past 3 months (0 pts) Confusion or Disorientation No (0 pts) Intoxicated or Sedated No (0 pts) Impaired Gait No (0 pts) Mobility Assist Device Used No (0 pt) Altered Elimination No (0 pt) Score/Fall Risk Level 0 - 2 = Low Risk Oriented to surroundings, Maintained a safe environment. Abuse screen: Denies threats or abuse. Denies injuries from another. Nutritional screening: No deficits noted. Tuberculosis screening: No symptoms or risk factors identified. Vital Signs: 13:02 BP 124 / 89; Pulse 116; Resp 19 S; Temp 98.5(O); Pulse Ox 99% on R/A; Weight 54.43 kg 6 (R); Height 5 ft. 7 in. (R); 13:02 Body Mass Index 18.79 (54.43 kg, 170.18 cm) [facility] ED Course: 12:34 Patient arrived in ED. im 12:58 Holli Garcia FNP-C [facility]. kb 12:58 Aniceto Ordonez MD is Attending Physician. kb 13:04 Triage completed. kc6 13:04 Arm band placed on. kc6 13:16 Strep Sent. bc6 13:16 SARS RAPID Sent. 6 13:16 Flu Sent. 6 13:16 COVID swab sent to lab. Flu and/or RSV swab sent to lab. Strep swab sent to lab. 6 13:25 Strep Sent. 6 13:25 SARS RAPID Sent. 6 13:25 Flu Sent. 6 13:25 Inserted saline lock: 20 gauge in right antecubital area, using aseptic technique. bc6 Flushed with 10 mL NS. 13:33 Chest Pa And Lat (2 Views) XRAY In Process Unspecified. EDID 14:10 Marshall Molina, RN is Primary Nurse. jl7 14:46 Patient has correct armband on for positive identification. jl7 14:46 No provider procedures requiring assistance completed. IV discontinued, intact, jl7 bleeding controlled, No redness/swelling at site. Pressure dressing applied. Administered Medications: 13:46 Drug: NS 0.9% IV 1000 ml IV at 1000 ml once; to be given as a bolus over 60 minutes aa5 Route: IV; Rate: 1000 ml; Site: left antecubital; 14:45 Follow up: Response: No adverse reaction; IV Status: Completed infusion jl7 Medication: 14:46 VIS not applicable for this client. jl7 Outcome: 14:20 Discharge ordered by . kb 14:46 Discharged to home ambulatory, jl7 14:46 Condition: stable 14:46 Discharge instructions given to patient, Instructed on discharge instructions, follow up and referral plans. Demonstrated understanding of instructions, follow-up care, 14:48 Patient left the ED. jl7 Signatures: Dispatcher [employer] EDID Holli Garcia FNP-C FNP-Ckb Calderon, Audri, RN RN aa5 Marshall Molina, RN RN jl7 Desiree Fields, RN RN kc6 Nohemi Hendrickson6 Carolyne Richards
--- NOTE | 2024-03-24 14:20 | EDPHYS ---
Physician Documentation [facility] Name: Ethel Amato Age: 34 yrs Sex: Female : 1990 Arrival Date: 03/24/2024 Time: 12:31 Bed 22 Private MD: ED Physician Aniceto Ordonez HPI: 03/24 13:30 This 34 yrs old Female presents to ER via Ambulatory with complaints of Flu Symptoms. kb 13:30 Pt is a 34 year old female who presents for cough, congestion, rhinorrhea, nosebleeds, kb bodyaches, and general fatigue. Believes she has the flu. States she just feels ill in general and believes she needs IV fluids. . 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 - Infectious Disease History:: Denies. - Social history:: Smoking status: Patient denies any tobacco usage or history of. ROS: 13:30 Constitutional: As per HPI kb Exam: 13:30 Constitutional: This is a well developed, well nourished patient who is awake, alert, kb and in no acute distress. Head/Face: Normocephalic, atraumatic. ENT: Moist Mucous membranes Respiratory: Respirations even and unlabored. No increased work of breathing. Talking in full sentences Abdomen/GI: Soft, non-tender. No distention Skin: Warm, dry with normal turgor. Normal color. MS/ Extremity: Pulses equal, no cyanosis. Neurovascular intact. Full, normal range of motion. Neuro: Awake and alert, GCS 15, oriented to person, place, time, and situation. 13:30 Cardiovascular: Rate: tachycardic, Rhythm: regular, Pulses: no pulse deficits are appreciated, Heart sounds: normal, 13:32 Respiratory: Breath sounds: decreased breath sounds, that are mild, are heard in the kb right posterior upper lobe, right posterior middle lobe and right posterior lower lobe, Vital Signs: 13:02 BP 124 / 89; Pulse 116; Resp 19 S; Temp 98.5(O); Pulse Ox 99% on R/A; Weight 54.43 kg 6 (R); Height 5 ft. 7 in. (R); 13:02 Body Mass Index 18.79 (54.43 kg, 170.18 cm) 6 MDM: 12:59 Medical Screening Exam initiated kb 13:32 Data reviewed: vital signs, nurses notes. kb 14:19 Differential diagnosis: flu, covid, uri, strep. I considered the following discharge kb prescriptions or medication management in the emergency department I discussed and recommended Over The Counter medications, Antibiotics: At this time antibiotics are not recommended, Antivirals: At this time, antivirals are not recommended. Counseling: I had a detailed discussion with the patient and/or guardian regarding the historical points, exam findings, and any diagnostic results supporting the discharge/admit diagnosis, lab results, radiology results, the need for outpatient follow up, a family practitioner, to return to the emergency department if symptoms worsen or persist or if there are any questions or concerns that arise at home. 03/24 13:12 Order name: Flu; Complete Time: 14:19 bc6 03/24 13:12 Order name: SARS RAPID; Complete Time: 14:19 bc6 03/24 13:12 Order name: Strep [facility] 03/24 14:12 Order name: Throat Culture [facility] 03/24 13:20 Order name: Chest Pa And Lat (2 Views) XRAY; Complete Time: 13:47 kb3 03/24 13:20 Order name: IV Start; Complete Time: 13:25 kb3 Administered Medications: 13:46 Drug: NS 0.9% IV 1000 ml IV at 1000 ml once; to be given as a bolus over 60 minutes aa5 Route: IV; Rate: 1000 ml; Site: left antecubital; 14:45 Follow up: Response: No adverse reaction; IV Status: Completed infusion jl7 Disposition Summary: 03/24/24 14:20 Discharge Ordered Notes: Location: Home kb Condition: Stable kb Diagnosis - Acute upper respiratory infection, unspecified kb Followup: kb - With: Emergency Department - When: As needed - Reason: Worsening of condition Followup: kb - With: Private Physician - When: 2 - 3 days - Reason: Recheck today's complaints, Continuance of care, Re-evaluation by your physician Discharge Instructions: - Discharge Summary Sheet kb - Upper Respiratory Infection, Adult, [id number] kb Forms: - Work release form kb - Medication Reconciliation Form kb - Antibiotic Education kb - Prescription Opioid Use kb - Patient Portal Instructions kb - Leadership Thank You Letter kb Signatures: Dispatcher [employer] Holli Jc FNP-C FNP-Elizabeth Maynard, RN RN aa5 Desiree Fields RN RN kc6 Tamara Draper RN RN kb3 Marshall Molina RN jl7
[2024-03-24 17:38] VITALS: BP 124/89; TEMP 98.5; O2SAT 99
== END 2024-03-24 14:48 | disposition home or self-care (01) ==
LOC: ER 12:31
DX: J06.9 Acute upper respiratory infection, unspecified (principal); Z11.52 Encounter for screening for COVID-19
CPT/HCPCS: 87070; 36415; 87081; 87804 ×2; 71046; 96360; 99284; 87811; J7030

== ENCOUNTER 2024-04-04 10:02 | Emergency (ER) | payer OTHER ==
--- OUTSIDE RECORDS SUMMARY | 2024-04-04 10:16 | XMS REPORT | Continuity of Care Document ---
Author Name Unknown Address [address] [facility] [address] [place] [address] [facility] thconnect Address [address] [facility] [place] [address] Care Team Providers Care Financial Reporting Consultant Name Role Phone LIZ MALAGON Primary Care Physician Unavailab Liz Pimentel Attending Clinician Unavailable CATHIE ROSS Attending Clinician UnavailVALERIA Redding Attending Clinician UnavailValeria Bonner Attending Clinician + [phone] CLEMENTINA MARROQUIN Attending Clinician Unavailab CLEMENTINA Tang Attending Clinician Unavailab Clementina Tang DO Attending Clinician +[phone] CATHIE ROSS Attending Clinician UnavailCathie Tomas MD Attending Clinician [phone] REJI JOHANSEN Attending Clinician Unavailable REJI JOHANSEN Attending Clinician Unavailable Reji Johansen MD Attending Clinician +15 KANDY CHAVEZ Attending Clinician Unavailable KANDY CHAVEZ Attending Clinician Unavailable Kandy Sanchez Attending Clinician +[phone] TRINO ASHFORD Attending Clinician Unavailable TRINO ASHFORD Attending Clinician Unavailable Trino Ashford MD Attending Clinician +13 KRISTA CABRERA Attending Clinician Unavailable KRISTA CABRERA Attending Clinician Unavailable Krista Cabrera MD Attending Clinician +[phone] Jonelle Connell DO Attending Clinician +[phone] NBA BALDERAS Attending Clinician Unavailab Lauren Davila MA Attending Clinician Un available DAO GOEL Attending Clinician Unavailable DAO GOEL Attending Clinician Unavailable Alyssia Miranda MD Attending Clinician + SOLO DEVI Attending Clinician Unavailable Eduar Echevarria DO Attending Clinician +[phone] Solo Devi MD Attending Clinician +10 JONELLE CONNELL Attending Clinician Unavailable JONELLE CONNELL Attending Clinician Unavailable Zoë Singletary NP Attending Clinician + [phone] ZOË SINGLETARY Attending Clinician Unavailable Jose Domínguez Attending Clinician +[phone] CECILE RANGEL Attending Clinician Unavailable Cecile Hernandez Attending Clinician [phone] ELENO BLAIR Attending Clinician Unavailable ELENO BLAIR Attending Clinician Unavailable Heladio CASTANEDA, Reta Attending Clinician [phone] Doctor Unassigned, [place] Attending Clinician U navailable RETA LEIJA Attending Clinician Unavailable Unknown, Attending Attending Clinician Unavailab orly Slaughter LVN, Thelma Attending Clinician [phone] WILLIAM CASTORENA Attending Clinician Unavailyfn Castorena MD, William Nolasco Attending Clinician [phone] Jacob Jacobs Attending Clinician UnavailPAGE Abdul Attending Clinician Unavailable Da STUBBS, Page Attending Clinician [phone] JUAN CHAVEZ Attending Clinician Unavail Adelina Ramirez MD Attending Clinician +[phone] Dahiana Robertson MD Attending Clinician [phone] Juan Chavez MD Attending Clinician +[phone] EDUAR ECHEVARRIA Attending Clinician Unavailable NICK BEST Attending Clinician Unavailable Estephania CASTANEDA, Nick T Attending Clinician +[phone] LIZBETH SNOW Attending Clinician Unavailable Chula NAVARRETE Attending Clinician Unavailable Chula NAVARRETE Attending Clinician Unavailable Lacey Suggs MD Attending Clinician [phone] Oral Surgery, Oral Attending Clinician Unavailab Jose Loredo Attending Clinician Unavailable Jian Salvador Attending Clinician Unavailable BALDEV ALARCON Attending Clinician Unavailable Baldev Milian S Attending Clinician [phone] TREVON CORTES Attending Clinician Unavailab Kerrie Bliss S Attending Clinician [phone] KERRIE JUDGE Attending Clinician Unavailable Cathie Ross MD Attending Clinician [phone] JACQUELINE SHIN Attending Clinician Unavailable Josafat HASSANP, Jacqueline Attending Clinician [phone] Lizbeth Snow MD Attending Clinician [phone] Pob, Ad[facility] Lab Main Attending Clinician Unavailabl e Only, Adc Test Attending Clinician Unavailable Horace RUBY ENGINEER, Consuelo Attending Clinician [phone] EBRAHIM RANIA Attending Clinician Unavailable Ebrahim RUBY ENGINEER, Rania Attending Clinician [phone] Visit, Ang-Rmchp Nurse Attending Clinician Unava ilable Cortes RUBY ENGINEER, Barbrapeeweemichelle R Attending Clinician + [phone] Akinsipe WHCNP, Pratima C Attending Clinician + AKINSIPE PRATIMA C Attending Clinician Unavail able GC_[facility]ace_G Attending Clinician Unavail able COSME MARIE Attending Clinician Unava ilable Ryan RUBY ENGINEER, Cosme Attending Clinician + Nerissa HOFF, Zakiya Sanders Attending Clinician Unavailab le Only, Ang Db Test Attending Clinician Unavailabl e Franki RUBY ENGINEER, Miley Attending Clinician [phone] MILEY DOAN Attending Clinician Unavailable Julisa Purvis DO Attending Clinician + [phone] Marin HOFF, Tiff Moreno Attending Clinician +[phone] CHAD MORAN Attending Clinician Unavailabl nargis Espana MD, [place] Damian Attending Clinician + [phone] Chad Moran MD Attending Clinician [phone] Karina STUBBS, Marisabel Attending Clinician +[phone] Provider, [facility] Attending Clinician Un available Kelly Cooley Attending Clinician +[phone] Christos STUBBS, Jennifer Attending Clinician [phone] Radiology Attending Clinician Unavailable RADIOLOGY Attending Clinician Unavailable JENNIFER SHER Attending Clinician Unavailable KELLY PEREZ Attending Clinician Unavailable Shola HASSANPSabra Attending Clinician [phone] SABRA SORTO Attending Clinician Unavailable Carrington HASSANP, Brandi Casanova Attending Clinician [phone] Eliezer Watts MD Attending Clinician +[phone] Reji Leahy MD Attending Clinician +[phone] CATHIE ROSS Admitting Clinician UnavailKANDY [place] Admitting Clinician Unavailable TRINO ASHFORD Admitting Clinician Unavailable NBA BALDERAS Admitting Clinician Unavailab EDUAR So Admitting Clinician Unavailable Eduar Echevarria DO Admitting Clinician SOLO DEVI Admitting Clinician Unavailable Solo Devi MD Admitting Clinician [phone] CECIEL RANGEL Admitting Clinician Unavailable ELENO BLAIR Admitting Clinician Unavailable WILLIAM CASTORENA Admitting Clinician UnavailWilliam Serrano MD Admitting Clinician [phone] Arnol Gonsalez Admitting Clinician Unavailab DAHIANA Arteaga Admitting Clinician Unavailable Dahiana Robertson MD Admitting Clinician [phone] NICK BEST Admitting Clinician Unavailable LACEY SUGGS Admitting Clinician Unavailable Cathie Ross MD Admitting Clinician +[phone] _[facility]_Charisse Admitting Clinician Unavail able MARISABEL COLLINS Admitting Clinician Unavailable Marisabel Collins MD Admitting Clinician [phone] BALDEV ALARCON Admitting Clinician Unavailable SABRA SORTO Admitting Clinician Unavailable Payers Payer Name Policy Type Policy Number Effective Date Expirati on Date Source [employer] MEDICAID [id number] 2016 00:00:00 [place] [facility] [id number] 2024 00:00:00 [place] [id number] 2023 00:00:00 [facility] [id number] 2022 00:00:00 2023 00:00:00 [facility] [id number] 2019 00:00:00 [facility] [id number] 2019 00:00:00 [facility] [id number] 2019 00:00:00 [facility] [id number] 2019 00:00:00 [facility] Problems Condition Name Condition Details Condition Category Status Onset Date Resolution Date Last Treatment Date Treating Clinician Comments Source Alcohol withdrawal syndrome without complicati on Alcohol withdrawal syndrome without complicati on Disease Active 7-17 00:00: 00 [facility] Nausea and vomiting, unspecifie d vomiting type Nausea and vomiting, unspecifie d vomiting type Disease Active 5-30 00:00: 00 [facility] Alcohol withdrawal syndrome, with delirium Alcohol withdrawal syndrome, with delirium Disease Active 1-03 00:00: 00 [facility] E44.0 Moderate protein calorie malnutriti on E44.0 Moderate protein calorie malnutriti on Disease Active 24 00:00: 00 [facility] Alcohol abuse Alcohol abuse Disease Active 7-22 00:00: 00 [facility] Flank pain Flank pain Disease Active 18 00:00: 00 [facility] Closed dislocatio n of fifth metacarpal bone of right hand Closed dislocatio n of fifth metacarpal bone of right hand Disease Active 11-08 00:00: 00 Overview: Formattin g of this note might be different from the original. Added automatic ally from request for surgery [id number] [facility] Closed dislocatio n of fifth metacarpal bone of right hand Closed dislocatio n of fifth metacarpal bone of right hand Disease Active 11-08 00:00: 00 Overview: Formattin g of this note might be different from the original. Added automatic ally from request for surgery [id number] [facility] Other general counseling and advice for contracept luna management Other general counseling and advice for contracept luna management Disease Active 24 00:00: 00 [facility] Underweigh t Underweigh t Disease Active 24 00:00: 00 [facility] History of anorexia nervosa History of anorexia nervosa Disease Active 24 00:00: 00 Overview: Formattin g of this note might be different from the original. Reports currently see therapist [facility] Alcohol withdrawal syndrome with perceptual disturbanc e Alcohol withdrawal syndrome with perceptual disturbanc e Disease Active 2020-04 00:00: 00 [facility] Hypokalemi a Hypokalemi a Disease Active 2020-04 00:00: 00 [facility] ETOH abuse ETOH abuse Disease Active 08-16 00:00: 00 [facility] E46 Unspecifie d severe protein-ca evette malnutriti on E46 Unspecifie d severe protein-ca evette malnutriti on Disease Active 08-16 00:00: 00 [facility] H/O hernia repair H/O hernia repair Disease Active 08-21 00:00: 00 [facility] Hiatal hernia Hiatal hernia Disease Active 08-21 00:00: 00 [facility] [id number] History of alcohol abuse Problem [facility] [id number] Tobacco use disorder Problem [facility] [id number] Constipati on, unspecifie d constipati on type Problem [facility] [id number] Allergic rhinitis, unspecifie d seasonalit y, unspecifie d trigger Problem [facility] [id number] Mass of chest wall Problem [facility] Attention deficit hyperactiv ity disorder, predominan tly inattentiv e type Attention deficit hyperactiv ity disorder (ADHD), predominan tly inattentiv e type Problem [facility] [id number] GERD without esophagiti s Problem [facility] [id number] Hypercalce manav Problem [facility] [id number] Iron deficiency anemia, unspecifie d iron deficiency anemia type Problem [facility] [id number] Enlarged thyroid Problem [facility] [id number] Abnormal finding on imaging Problem [facility] Intractabl e nausea and vomiting Intractabl e nausea and vomiting Disease Resolve d 08-16 00:00: 2021-07-13 00:00:00 2021-07-13 09:24:51 [facility] Rh negative status during Rh negative status during Disease Resolve d 08-22 00:00: 00 2021-07-13 00:00:00 2021-07-13 09:25:04 [facility] Supervisio n of high risk , antepartum , first trimester Supervisio n of high risk , antepartum , first trimester Disease Resolve d 08-21 00:00: 00 2021-07-13 00:00:00 2021-07-13 09:25:05 [facility] Missed menses Missed menses Disease Resolve d 08-21 00:00: 00 2021-07-13 00:00:00 2021-07-13 09:25:08 [facility] Multiparit y Multiparit y Disease Resolve d 08-21 00:00: 00 2021-07-13 00:00:00 2021-07-13 09:24:54 [facility] Tobacco use in , unspecifie d trimester Tobacco use in , unspecifie d trimester Disease Resolve d 08-21 00:00: 00 2021-07-13 00:00:00 2021-07-13 09:25:07 [facility] Needs flu shot Needs flu shot Disease Resolve d 08-21 00:00: 00 2021-07-13 00:00:00 2021-07-13 09:24:56 [facility] History of labor History of labor Disease Resolve d 08-21 00:00: 00 2021-07-13 00:00:00 2021-07-13 09:24:49 [facility] Allergies, Adverse Reactions, Alerts Allergy Name Allergy Type Status Severity Reaction(s) Onset Date Inactive Date Treating Clinician Comments Source No Known Allergie s DA Active U 2016-04 00:00: 00 [facility] NO KNOWN ALLERGIE S Drug Class Active [facility] 04653 Drug allergy Active Muscle Atrophy [facility] Social History Social Habit Start Date Stop Date Quantity Comments Source Gender identity [facility] Sexual orientation [facility] History of tobacco use Cigarette Smoker [facility] Sex Assigned At [facility] Alcoholic beverage intake 2024-03-30 00:00:00 2024-03-30 00:00:00 Current drinker of alcohol (finding) [facility] History of Social function 2024-01-03 00:00:00 2024-01-03 00:00:00 [facility] Tobacco Comment 2023-11-06 00:00:00 2023-11-06 00:00:00 Currently vapes nicotine [facility] Alcohol Comment 2023-11-06 00:00:00 2023-11-06 00:00:00 last drink 4-5 shots yesterday [facility] Tobacco use and exposure 2023-11-06 00:00:00 2023-11-06 00:00:00 Former smokeless tobacco user [facility] Alcohol intake 2023-04-30 00:00:00 2023-04-30 00:00:00 Current non-drinker of alcohol (finding) [facility] Exposure to SARS-CoV-2 (event) 2022-08-17 00:00:00 2022-08-27 20:37:00 Not sure [facility] Cigarettes smoked current (pack per day) - Reported 2018-11-05 00:00:00 2018-11-05 00:00:00 [facility] Smoking Status Start Date Stop Date Source Ex-smoker 2023-11-06 00:00:00 2023-11-06 00:00:00 [facility] Current Smoker 2023-06-07 00:00:00 [facility] Medications Ordered Medication Name Filled Medication Name Start Date Stop Date Current Medication? Ordering Clinician Indication Dosage Frequency Signature (SIG) Comments Components Source HYDROcodone -acetaminop hen (NORCO 5) tablet 1 tablet 2023-04 02:30: 00 03-31 01:53 :00 No 1{tbl} 1 tablet, Oral, ONCE, 1 dose, On Sat03/30/24 at 2030, [facility] ondansetron (ZOFRAN-ODT ) disintegrat ing tablet 4 mg 2023-04 01:45: 00 03-31 01:53 :00 No 4mg 4 mg, Oral, ONCE, 1 dose, On Sat03/30/24 at 2000, Routine [facility] ondansetron (ZOFRAN-ODT ) disintegrat ing tablet 4 mg 2023-04 10:15: 00 03-30 09:28 :00 No 4mg 4 mg, Oral, ONCE, 1 dose, On Sat03/30/24 at 0415, Routine [facility] ibuprofen (IBU) tablet 600 mg 2023-04 09:15: 00 03-30 09:24 :00 No 600mg 600 mg, Oral, ONCE, 1 dose, On Sat03/30/24 at 0315, [facility] cephALEXin 500 mg capsule 2023-04 00:00: 00 04-07 05:59 :00 Yes [id number] 500mg Take 1 capsule by mouth in the morning and 1 capsule in the evening. Do all this for 7 days. [facility] methocarbam oL (ROBAXIN) tablet 1,000 mg 2023-04 0- 19:30: 00 01-25 20:18 :00 No 1000mg 1,000 mg, Oral, ONCE, 1 dose, On 01/26/24 at 1430, [facility] ibuprofen (IBU) tablet 600 mg 2023-04 0- 19:30: 00 01-25 20:18 :00 No 600mg 600 mg, Oral, ONCE, 1 dose, On 01/26/24 at 1430, [facility] methocarbam oL 750 mg tablet 2023-04 0- 00:00: 00 Yes [id number] 750mg Take 1 tablet by mouth 3 (three) times daily as needed (body aches). [facility] fentanyl PF (SUBLIMAZE (PF)) injection 50 mcg 12-27 02:00: 00 12-27 02:00 :00 No 50ug 50 mcg, Intramuscu lar, ONCE, 1 dose, On Sat12/27/23 at 2100, Routine [facility] HYDROcodone -acetaminop hen (NORCO 5) tablet 1 tablet 12-26 21:15: 00 12-26 21:55 :00 No 1{tbl} 1 tablet, Oral, ONCE, 1 dose, On Sat12/27/23 at 1615, [facility] HYDROcodone -acetaminop hen (NORCO) 10-325 mg tablet 1 tablet 12-15 12:15: 00 12-15 11:26 :00 No 1{tbl} 1 tablet, Oral, ONCE NOW, 1 dose, On Sat12/16/23 at 0715, Routine [facility] traMADoL (ULTRAM) 50 mg tablet 12-15 00:00: 00 Yes [id number] 50mg Take 1 tablet by mouth every 6 (six) hours as needed for Pain (scale 7-10). Indication s: acute pain [facility] magnesium sulfate in water 2 gram/50 mL (4 %) infusion 2 g 12-07 21:45: 00 12-07 21:30 :00 No 2g 2 g, IV Piggyback, Administer over 60 Minutes, ONCE, 1 dose, On Sat12/08/23 at 1645, [facility] thiamine (VITAMIN B1) 100 mg in NaCl 0.9% (NS) piggyback 12-07 20:30: 00 12-07 21:01 :00 No 100mg IV Piggyback, ONCE, 1 dose, On Sat12/08/23 at 1530, 50 mL [facility] LORazepam (ATIVAN) tablet 1 mg 12-07 20:00: 00 12-07 20:03 :00 No 1mg 1 mg, Oral, ONCE, 1 dose, On Sat12/08/23 at 1500, [facility] magnesium oxide 400 mg (241.3 mg magnesium) tablet 12-07 00:00: 00 Yes [id number] 800mg Take 2 tablets by mouth in the morning. [facility] chlordiazeP OXIDE 25 mg capsule 12-07 00:00: 00 Yes [id number] 100mg Take 4 capsules by mouth in the morning and 4 capsules at noon and 4 capsules in the evening. [facility] diphenhydrA MINE (BENADRYL) tablet 25 mg 12-05 08:30: 00 12-05 08:21 :00 No 25mg 25 mg, Oral, ONCE, 1 dose, On Sat12/06/23 at 0330, [facility] LORazepam (ATIVAN) tablet 1 mg 12-05 07:00: 00 12-05 06:58 :00 No 1mg 1 mg, Oral, ONCE, 1 dose, On Sat12/06/23 at 0200, [facility] LORazepam (ATIVAN) tablet 1 mg 12-04 05:00: 00 12-04 05:05 :00 No 1mg 1 mg, Oral, ONCE, 1 dose, On Sat12/05/23 at 0000, [facility] NaCl 0.9% (NS) bolus infusion 1,000 mL 12-04 04:45: 00 12-04 04:50 :00 No 1000mL at 999 mL/hr, 1,000 mL, IV Infusion, ONCE, 1 dose, On Sat12/04/23 at 2345, [facility] Lidocaine (LIDOCARE) 4 % patch 1 Patch 11-21 18:15: 00 11-22 06:14 :00 No 1{patch } 1 Patch, Topical, Administer over 12 Hours, ONCE, 1 dose, On Sat11/22/23 at 1315, Routine [facility] NaCl 0.9% (NS) bolus infusion 1,000 mL 11-21 18:15: 00 11-21 19:21 :00 No 1000mL at 999 mL/hr, 1,000 mL, IV Infusion, ONCE, 1 dose, On Sat11/22/23 at 1315, [facility] ketorolac (TORADOL) injection 30 mg 11-21 17:40: 00 11-21 17:52 :00 No 30mg 30 mg, Slow IV Push, ONCE, 1 dose, On Sat11/22/23 at 1245, Routine [facility] proCHLORper azine (COMPAZINE) 10 mg in NaCl 0.9% (NS) piggyback 11-21 17:30: 00 11-21 18:24 :00 No 10mg 10 mg, IV Piggyback, at 100 mL/hr Administer over 30 Minutes, ONCE, 1 dose, On Sat11/22/23 at 1230, Routine [facility] methocarbam oL (ROBAXIN) tablet 1,000 mg 11-21 17:30: 00 11-21 17:56 :00 No 1000mg 1,000 mg, Oral, ONCE, 1 dose, On Sat11/22/23 at 1230, [facility] metoprolol tartrate (LOPRESSOR) tablet 25 mg 11-08 14:15: 00 Yes 25mg 25 mg, Oral, BID, First dose on Sat11/09/23 at 0915, Until Discontinu ed, Routine [facility] oxazepam (SERAX) capsule 15 mg 11-08 06:01: 04 11-09 06:14 :00 No 15mg 15 mg, Oral, Q12H TAPER, 2 doses, First dose on 11/09/23 at 0115, Last dose on Sat11/09/23 at 1315, Routine [facility] metoprolol tartrate 25 mg tablet 11-08 00:00: 00 12-09 04:59 :00 No [id number] 25mg Take 1 tablet by mouth in the morning and 1 tablet in the evening. Do all this for 30 days. [facility] KCL (KLOR-CON M20) tablet 20 mEq 11-07 23:00: 00 11-07 22:58 :00 No 20meq 20 mEq, Oral, ONCE, 1 dose, On Sat11/08/23 at 1800, Routine [facility] diphenhydrA MINE (BENADRYL) tablet 25 mg 11-07 13:03: 50 Yes 25mg 25 mg, Oral, Q6HPRN, Starting on Sat11/08/23 at 0803, Until Discontinu ed, Routine, Itching [facility] phosphorus (K PHOS NEUTRAL) tablet 1 tablet 11-07 13:00: 00 11-09 12:59 :00 No 250mg 1 tablet (250 mg), Oral, BID, 4 doses, First dose on Sat11/08/23 at 0800, Last dose on Sat11/09/23 at 2000, Routine [facility] magnesium sulfate in water 2 gram/50 mL (4 %) infusion 2 g 11-07 13:00: 00 11-07 14:34 :00 No 2g 2 g, IV Piggyback, Administer over 60 Minutes, ONCE, 1 dose, On Sat11/08/23 at 0800, Routine [facility] potassium phosphate 30 mmol in NaCl 0.9% (NS) 500 mL piggyback 11-07 13:00: 00 11-07 20:30 :00 No 30mmol 30 mmol, IV Piggyback, ONCE, 1 dose, On Sat11/08/23 at 0800, 500 mL [facility] HYDROmorpho ne (DILAUDID) injection 0.5 mg 11-07 10:45: 00 11-07 10:31 :00 No .5mg 0.5 mg, Slow IV Push, ONCE, 1 dose, On Sat11/08/23 at 0545, Routine, Is this medication approved by a Faculty level provider? Yes, maintenance team member approving Restricted medication : WILLIAM CASTORENA [facility] traMADoL (ULTRAM) tablet 50 mg 11-07 01:50: 29 Yes 50mg 50 mg, Oral, Q6HPRN, Starting on [place] 11/07/23 at 2050, Until Discontinu ed, Routine, Pain (scale 4-6) [facility] FENTanyl PF (SUBLIMAZE (PF)) injection 25 mcg 11-07 01:29: 16 Yes 25ug 25 mcg, Slow IV Push, Q4HPRN, Starting on Sat11/07/23 at 2029, Until Discontinu ed, Routine, Pain (scale 7-10) Univers [facility] NaCl 0.9% (NS) IV infusion 1,000 mL 11-07 00:30: 00 11-07 13:51 :28 No 1000mL at 75 mL/hr, IV Infusion, CONTINUOUS , Starting on Sat11/07/23 at 1930, Until Sat11/08/23 at 0851, Routine Univers [facility]y [facility] sodium phosphate 15 mmol in NaCl 0.9% (NS) 250 mL piggyback 11-06 14:45: 00 11-06 19:18 :00 No 15mmol 15 mmol, IV Piggyback, ONCE, 1 dose, On Sat11/07/23 at 0945, Administer over 4 Hours, 250 mL Univers y [facility] thiamine mononitrate (VITAMIN B-1 (MONONITRAT E)) tablet 100 mg 11-06 14:00: 00 Yes 100mg 100 mg, Oral, DAILY, First dose on Sat11/07/23 at 0900, Until Discontinu ed, Routine Univers [facility] foLIC acid (FOLATE) tablet 1 mg 11-06 14:00: 00 Yes 1mg 1 mg, Oral, DAILY, First dose on Sat11/07/23 at 0900, Until Discontinu ed, Routine Univers [facility] pantoprazol e (PROTONIX) EC tablet 40 mg 11-06 13:00: 00 Yes 40mg 40 mg, Oral, BID, First dose on Sat11/07/23 at 0800, Until Discontinu ed, Routine Univers [facility] sucralfate (CARAFATE) tablet 1 g 11-06 02:00: 00 Yes 1g 1 g, Oral, AC+HS, First dose on Sat11/06/23 at 2100, Until Discontinu ed, Routine [facility] magnesium sulfate in water 2 gram/50 mL (4 %) infusion 2 g 11-06 01:30: 00 11-06 02:48 :00 No 2g 2 g, IV Piggyback, Administer over 60 Minutes, ONCE, 1 dose, On Sat11/06/23 at 2030, [facility] oxazepam (SERAX) capsule 15 mg 11-06 00:01: 04 Yes 15mg 15 mg, Oral, Q4HPRN, Starting on Sat11/06/23 at 1901, Until Discontinu ed, Routine, Only while awake for DBP equal to or greater than 100, HR equal to or greater than 100. [facility] nicotine (NICODERM) 21 mg/24 hr patch 1 Patch 11-06 00:00: 00 Yes 1{patch } 1 Patch, Topical, Administer over 24 Hours, Q24H, First dose on Sat11/06/23 at 1900, Until Discontinu ed, Routine [facility] pantoprazol e (PROTONIX) injection 40 mg 11-05 23:45: 00 11-05 23:08 :00 No 40mg 40 mg, Slow IV Push, ONCE, 1 dose, On Sat11/06/23 at 1845 [facility] ondansetron (ZOFRAN (PF)) injection 4 mg 11-05 22:47: 22 Yes 4mg 4 mg, Slow IV Push, Q6HPRN, Nausea and Vomiting (N/V), Starting on Sat11/06/23 at 1747, Doses of ondansetro n 16 mg and above need to be administer ed via IV piggyback. For Dose >=24mg ECG monitoring is advisable. [facility] enoxaparin (LOVENOX) injection 40 mg 11-05 22:00: 00 Yes 40mg 40 mg, Subcutaneo us, DAILY, First dose on Sat11/06/23 at 1700, Until Discontinu ed, Routine [facility] D5W 0.45% NaCl (1/2NS) 1 L + KCL 20 mEq 11-05 20:45: 00 11-06 13:45 :29 No Intravenou s, at 125 mL/hr, CONTINUOUS , Starting on Sat11/06/23 at 1545, Until [place] 11/07/23 at 0845, [facility] NaCl 0.9% (NS) bolus infusion 1,000 mL 11-05 20:00: 00 11-05 20:14 :00 No 1000mL at 999 mL/hr, 1,000 mL, IV Infusion, ONCE, 1 dose, On Sat11/06/23 at 1500, STAT [facility] thiamine (VITAMIN B1) injection 100 mg 11-05 18:45: 00 11-05 18:55 :00 No 100mg 100 mg, Slow IV Push, ONCE, 1 dose, On Sat11/06/23 at 1345, [facility] ondansetron (ZOFRAN (PF)) injection 4 mg 10-27 14:45: 00 10-27 14:42 :00 No 4mg 4 mg, Slow IV Push, ONCE, 1 dose, On Sat10/28/23 at 0945, [facility] NaCl 0.9% (NS) IV infusion 1,000 mL 10-27 09:45: 00 Yes 1000mL at 150 mL/hr, Intravenou s, CONTINUOUS , Starting on Sat10/28/23 at 0445, Until Discontinu ed, Routine [facility] ondansetron (ZOFRAN-ODT ) disintegrat ing tablet 4 mg 10-18 17:00: 00 10-18 16:15 :00 No 4mg 4 mg, Oral, ONCE, 1 dose, On 10/19/23 at 1200, Routine [facility] hydrOXYzine (ATARAX) tablet 25 mg 10-18 16:00: 00 10-18 16:15 :00 No 25mg 25 mg, Oral, ONCE, 1 dose, On 10/19/23 at 1100, [facility] ondansetron 4 mg disintegrat ing tablet 10-18 00:00: 00 Yes [id number] 4mg Take 1 tablet by mouth every 8 (eight) hours as needed for Nausea and Vomiting (N/V). [facility] hydrOXYzine 25 mg tablet 10-18 00:00: 00 Yes [id number] 25mg Take 1 tablet by mouth every 6 (six) hours as needed for Anxiety. [facility] neomycin-po lymyxin-pra moxine 3.5-10,000- 10 mg-unit-mg/ gram cream 10-17 00:00: 00 Yes [id number] Apply to area(s) 2 (two) times daily. [facility] cholecalcif catherine, vitamin D3, 25 mcg (1,000 unit) tablet 09-21 00:00: 00 10-22 04:59 :00 No [id number] 1000U Take 1 tablet by mouth in the morning for 30 days. [facility] foLIC acid 1 mg tablet 09-21 00:00: 00 10-22 04:59 :00 No [id number] 1mg Take 1 tablet by mouth in the morning for 30 days. [facility] KCL (KLOR-CON M20) tablet 40 mEq 09-20 14:30: 00 09-20 14:15 :00 No 40meq 40 mEq, Oral, ONCE, 1 dose, On 09/21/23 at 0930, Routine [facility] lisdexamfet amine (VYVANSE) 60 mg capsule 09-20 12:06: 59 Yes 60mg Take 1 capsule by mouth every morning. [facility] oxazepam (SERAX) capsule 15 mg 09-20 01:30: 00 09-21 01:29 :00 No 15mg [Order 1 Start] Name: oxazepam (SERAX) capsule 15 mg Signed Summary: 15 mg, Oral, Q8H TAPER, 3 doses, First dose on Sat09/20/23 at 2030, Last dose on 09/21/23 at 1230, Routine [Order 1 End] [Order 2 Start] Name: oxazepam (SERAX) capsule 15 mg Signed Summary: 15 mg, Oral, Q12H TAPER, 2 doses, First dose on 09/22/23 at 0030, Last dose on 09/22/23 at 1230, Routine [Order 2 End] [facility] benzonatate 100 mg capsule 09-20 00:00: 00 10-01 04:59 :00 No [id number] 100mg Take 1 capsule by mouth every 8 (eight) hours as needed for Cough for up to 10 days. [facility] zinc sulfate 50 mg zinc (220 mg) capsule 09-20 00:00: 00 10-01 04:59 :00 No [id number] 50mg Take 1 capsule by mouth in the morning and 1 capsule at noon and 1 capsule in the evening. Do all this for 10 days. [facility] amoxicillin -clavulanat e 875-125 mg per tablet 09-20 00:00: 00 09-26 04:59 :00 No [id number] 1{tbl} Take 1 tablet by mouth in the morning and 1 tablet in the evening. Do all this for 5 days. [facility] dexAMETHaso ne 4 mg tablet 09-20 00:00: 00 09-26 04:59 :00 No [id number] 6mg Take 1.5 tablets by mouth every 12 (twelve) hours for 5 days. [facility] cefTRIAXone (ROCEPHIN) 1,000 mg in NaCl 0.9% (NS) 100 mL MINI-BAG 09-19 23:30: 00 09-24 23:29 :00 No 1000mg 1,000 mg, IV Piggyback, Q24H ABX, 5 doses, First dose on Sat09/20/23 at 1830, Last dose on Sat09/24/23 at 1830, Administer over 30 Minutes, 100 mL, Reason for Anti-Infec tive: Documented Infection, Documented Infection Site: Respirator y, Duration of Therapy: 7 days [facility] cholecalcif catherine (vitamin D3) tablet 1,000 Units 09-19 14:00: 00 Yes 1000U 1,000 Units, Oral, DAILY, First dose on Sat09/20/23 at 0900, Until Discontinu ed, Routine [facility] metoprolol succinate XL (TOPROL XL) tablet 25 mg 09-19 14:00: 00 Yes 25mg 25 mg, Oral, DAILY, First dose on Sat09/20/23 at 0900, Until Discontinu ed, Routine [facility] foLIC acid (FOLATE) tablet 1 mg 09-19 14:00: 00 Yes 1mg 1 mg, Oral, DAILY, First dose on Sat09/20/23 at 0900, Until Discontinu ed, Routine [facility] enoxaparin (LOVENOX) injection 40 mg 09-19 14:00: 00 Yes 40mg 40 mg, Subcutaneo us, DAILY, First dose on Sat09/20/23 at 0900, Until Discontinu ed, Routine [facility] zinc sulfate (ORAZINC) capsule 50 mg 09-19 13:00: 00 Yes 50mg 50 mg, Oral, TID, First dose on Sat09/20/23 at 0800, Until Discontinu ed, Routine [facility] ascorbic acid (vitamin C) (VITAMIN C) tablet 500 mg 09-19 13:00: 00 Yes 500mg 500 mg, Oral, BID, First dose on Sat09/20/23 at 0800, Until Discontinu ed, [facility] ip[facility]ropium -albuteroL (DUONEB) 0.5 mg-3 mg(2.5 mg base)/3 mL nebulizer solution 3 mL 09-19 13:00: 00 09-19 14:58 :45 No 3mL 3 mL, Inhalation , QID, First dose on Sat09/20/23 at 0800, Until Discontinu ed, [facility]ratropium -albuteroL (DUONEB) 0.5 mg-3 mg(2.5 mg base)/3 mL nebulizer solution 3 mL 09-19 12:32: 50 Yes 3mL 3 mL, Inhalation , QIDPRN, Starting on Sat09/20/23 at 0732, Until Discontinu ed, Routine, Wheezing, Shortness of Breath, Bronchospa sm, Chest tightness [facility] azithromyci n (ZITHROMAX) 500 mg in NaCl 0.9% (NS) 250 mL VIAL-MATE IV piggyback 09-19 04:00: 00 09-22 03:59 :00 No 500mg 500 mg, IV Piggyback, Q24H ABX, 3 doses, First dose on [place] 09/19/23 at 2300, Last dose on 09/21/23 at 2300, Administer over 60 Minutes, 250 mL, Reason for Anti-Infec tive: Empiric Therapy for Suspected Infection, Empiric Therapy Site: Respirator y, Duration of therapy: 5 days [facility] dexamethaso ne sod phos PF injection 6 mg 09-19 03:00: 00 Yes 6mg 6 mg, Intravenou s, DAILY, First dose (after last modificati on) on [place] 09/19/23 at 2200, Until Discontinu ed, 1 mL [facility] benzocaine- menthoL (CEPACOL SORE THROAT (VENITA-MEN)) lozenge 1 Lozenge 09-19 02:44: 39 Yes 1{lozen ge} 1 Lozenge, Oral, Q4HPRN, Starting on [place] 09/19/23 at 2144, Until Discontinu ed, Routine, Sore throat [facility] benzonatate (TESSALON PERLES) capsule 100 mg 09-19 02:44: 33 Yes 100mg 100 mg, Oral, Q8HPRN, Starting on [place] 09/19/23 at 2144, Until Discontinu ed, Routine, Cough [facility] codeine-gua ifenesin (ROBITUSSIN AC) 10-100 mg/5 mL oral solution 5 mL 09-19 02:44: 22 Yes 5mL 5 mL, Oral, Q6HPRN, Starting on [place] 09/19/23 at 2144, Until Discontinu ed, Routine, Cough [facility] NaCl 0.9% (NS) IV infusion 1,000 mL 09-18 23:15: 00 09-19 22:10 :01 No 1000mL at 125 mL/hr, IV Infusion, CONTINUOUS , Starting on Sat09/19/23 at 1815, Until Sat09/20/23 at 1710, Routine [facility] oxazepam (SERAX) capsule 15 mg 09-18 23:05: 39 Yes 15mg 15 mg, Oral, Q4HPRN, Starting on Sat09/19/23 at 1805, Until Discontinu ed, Routine, Only while awake for DBP equal to or greater than 100, HR equal to or greater than 100. [facility] ondansetron (ZOFRAN (PF)) injection 4 mg 09-18 23:05: 04 Yes 4mg [facility] HYDROcodone -acetaminop hen (NORCO 5) 5-325 mg tablet 1 tablet 09-18 23:04: 59 09-20 23:03 :59 No 1{tbl} 1 tablet, Oral, Q6HPRN, Starting on Sat09/19/23 at 1804, Until 09/21/23 at 1803, Routine, Pain (scale 4-6) [facility] acetaminoph en (TYLENOL) tablet 650 mg 09-18 23:04: 44 Yes 650mg 650 mg, Oral, Q6HPRN, Starting on Sat09/19/23 at 1804, Until Discontinu ed, Routine, Pain (scale 1-3) [facility] ondansetron (ZOFRAN (PF)) injection 4 mg 09-18 21:15: 00 09-18 20:11 :00 No 4mg 4 mg, Slow IV Push, ONCE, 1 dose, On Sat09/19/23 at 1615, CECILIA [facility] acetaminoph en (TYLENOL) tablet 1,000 mg 09-18 21:00: 00 09-18 20:58 :00 No 1000mg 1,000 mg, Oral, ONCE, 1 dose, On Sat09/19/23 at 1600, Routine [facility] NaCl 0.9% (NS) bolus infusion 1,000 mL 09-18 19:45: 00 09-18 20:11 :00 No 1000mL at 999 mL/hr, 1,000 mL, IV Infusion, ONCE, 1 dose, On [place] 09/19/23 at 1445, STAT [facility] magnesium sulfate in water 2 gram/50 mL (4 %) infusion 2 g 09-18 18:00: 00 09-18 18:21 :00 No 2g 2 g, IV Piggyback, Administer over 60 Minutes, ONCE, 1 dose, On [place] 09/19/23 at 1300, Routine [facility] NaCl 0.9% (NS) bolus infusion 1,566 mL 09-18 18:00: 00 09-18 20:11 :00 No 30mL/kg at 999 mL/hr, 1,566 mL (30 mL/kg ?52.2 kg), IV Infusion, ONCE, 1 dose, On [place] 09/19/23 at 1300, STAT [facility] ondansetron (ZOFRAN (PF)) injection 4 mg 09-18 18:00: 00 09-18 17:05 :00 No 4mg 4 mg, Slow IV Push, ONCE, 1 dose, On [place] 09/19/23 at 1300, [facility] L[facility]ATIVAN[facility] 1 mg 09-18 17:00: 00 09-18 17:05 :00 No 1mg 1 mg, Slow IV Push, ONCE, 1 dose, On [place] 09/19/23 at 1200, STAT [facility] NaCl 0.9% (NS) bolus infusion 1,000 mL 09-14 17:30: 00 09-14 18:27 :00 No 1000mL at 999 mL/hr, 1,000 mL, IV Infusion, ONCE, 1 dose, On [place] 09/15/23 at 1230, [facility] iop[facility] (ISOVUE 370-500 mL) injection 80 mL 09-14 17:15: 00 09-14 17:30 :00 No [id number] 80mL 80 mL, Intravenou s, ONCE, 1 dose, On [place] 09/15/23 at 1230, Routine [facility] NaCl 0.9% (NS) bolus infusion 1,000 mL 09-13 00:15: 00 09-13 01:01 :00 No [id number] 1000mL at 999 mL/hr, 1,000 mL, IV Infusion, ONCE, 1 dose, On Sat09/13/23 at 1915, [facility] acetaminoph en (TYLENOL) tablet 650 mg 09-13 00:15: 00 09-12 23:34 :00 No [id number] 650mg 650 mg, Oral, ONCE, 1 dose, On Sat09/13/23 at 1915, [facility] Vyvanse 60 MG Vyvanse 60 MG 06-20 00:00: 00 No 1{capsu le_in_t he_morn ing} [...] % Vyvanse 60 MG Vyvanse 60 MG 1-18 00:00: 00 No 1{capsu le_in_t he_morn ing} QD Vyvanse 60 MG permethrin 5 % cream 1-10 00:00: 00 Yes [id number] Apply cream from neck down, leave on for 8-14 h, repeat in 2 wks [facility] permethrin 5 % cream 04-30 00:00: 00 Yes [id number] As directed. [facility] hydrOXYzine 25 mg tablet 04-30 00:00: 00 05-06 05:59 :00 No [id number] 25mg Take 1 tablet by mouth 3 (three) times daily as needed for Itching for up to 5 days. [facility] foLIC acid 1 mg tablet 04-28 00:00: 00 05-29 05:59 :00 No [id number] 1mg Take 1 tablet by mouth in the morning for 30 days. [facility] thiamine 100 mg tablet 04-28 00:00: 00 05-29 05:59 :00 No [id number] 100mg Take 1 tablet by mouth in the morning for 30 days. [facility] oxazepam (SERAX) capsule 10 mg 04-27 19:15: 00 04-28 19:14 :00 No 10mg 10 mg, Oral, Q12H TAPER, 2 doses, First dose (after last modificati on) on 04/27/23 at 1315, Last dose on 04/28/23 at 0115, Routine [facility] KCL (KLOR-CON M20) tablet 40 mEq 04-27 15:00: 00 Yes 40meq 40 mEq, Oral, DAILY, First dose on 04/27/23 at 0900, Until Discontinu ed, Routine [facility] metoprolol succinate XL (TOPROL XL) tablet 12.5 mg 04-27 15:00: 00 Yes 12.5mg 12.5 mg, Oral, DAILY, First dose on 04/27/23 at 0900, Until Discontinu ed, Routine [facility] magnesium oxide (MAG-OX 400) tablet 800 mg 04-27 15:00: 00 04-30 14:59 :00 No 800mg 800 mg, Oral, DAILY, 3 doses, First dose on Sat04/27/23 at 0900, Last dose on Sat04/29/23 at 0900, Routine [facility] lisdexamfet amine (VYVANSE) 60 mg capsule 04-27 09:58: 30 Yes 60mg Take 1 capsule by mouth every morning. [facility] LISINOPRIL ORAL 04-27 08:55: 37 04-27 00:00 :00 No Take by mouth. [facility] KCL 20 mEq tablet 04-27 00:00: 00 05-05 05:59 :00 No [id number] 20meq Take 1 tablet by mouth in the morning for 7 days. [facility] magnesium oxide 420 mg Tab 04-27 00:00: 00 05-05 05:59 :00 No [id number] 400mg Take 400 mg by mouth in the morning for 7 days. [facility] NaCl 0.9% (NS) IV infusion 1,000 mL 04-26 20:00: 00 Yes 1000mL at 150 mL/hr, IV Infusion, CONTINUOUS , Starting on Sat04/26/23 at 1400, Until Discontinu ed, Routine
Resume after banana bag is completed< br> [facility] metoprolol tartrate (LOPRESSOR) tablet 12.5 mg 04-26 20:00: 00 04-27 14:52 :31 No 12.5mg 12.5 mg, Oral, BID, First dose on Sat04/26/23 at 1400, Until Discontinu ed, Routine [facility] magnesium sulfate in water 4 gram/50 mL (8 %) IV Piggyback 4 g 04-26 15:15: 00 04-26 20:54 :00 No 4g 4 g, IV Piggyback, at 25 mL/hr Administer over 120 Minutes, ONCE, 1 dose, On Sat04/26/23 at 0915, CECILIA [facility] potassium chloride in water 10 mEq/100 mL RTU 10 mEq 04-26 14:45: 00 04-26 18:54 :00 No 10meq 10 mEq, IV Piggyback, Q1H, 4 doses, First dose on Sat04/26/23 at 0845, Last dose on Sat04/26/23 at 1100, Administer over 60 Minutes, 100 mL [facility] diazePAM (VALIUM) injection 10 mg 04-25 16:47: 50 Yes 10mg 10 mg, Intravenou s, Q6HPRN, Starting on Sat04/25/23 at 1047, Until Discontinu ed, Routine, Agitation, Withdrawl [facility] foLIC acid (FOLATE) tablet 1 mg 04-25 15:00: 00 Yes 1mg 1 mg, Oral, DAILY, First dose on Sat04/25/23 at 0900, Until Discontinu ed, Routine [facility] thiamine (VITAMIN B1) tablet 100 mg 04-25 15:00: 00 Yes 100mg 100 mg, Oral, DAILY, First dose on Sat04/25/23 at 0900, Until Discontinu ed, Routine [facility] enoxaparin (LOVENOX) injection 40 mg 04-25 15:00: 00 Yes 40mg 40 mg, Subcutaneo us, DAILY, First dose on Sat04/25/23 at 0900, Until Discontinu ed, Routine Univers [facility] oxazepam (SERAX) capsule 15 mg 04-25 13:10: 47 Yes 15mg 15 mg, Oral, Q4HPRN, Starting on Sat04/25/23 at 0710, Until Discontinu ed, Routine, Only while awake for DBP equal to or greater than 100, HR equal to or greater than 100. [facility] potassium chloride in water 10 mEq/100 mL RTU 10 mEq 04-25 13:00: 00 04-25 19:57 :00 No 10meq 10 mEq, IV Piggyback, Q1H, 6 doses, First dose on Sat04/25/23 at 0700, Last dose on Sat04/25/23 at 1200, Administer over 60 Minutes, 100 mL [facility] dexMEDEtomi dine 200 mcg in 0.9 [...] at maximum allowed dose, contact prescriber .
[facility] thiamine (VITAMIN B1) 100 mg, foLIC acid (FOLATE) 1 mg, multivitami n adult (INFUVITE ADULT) 3,300 unit- 150 mcg/10 mL 10 mL in D5W 0.45% NaCl (1/2NS) IV Solution 04-25 06:15: 00 04-25 06:51 :35 No IV Infusion, at 150 mL/hr, ONCE, 1 dose, On [place] 04/25/23 at 0015, 1,000 mL [facility] NaCl 0.9% (NS) IV infusion 1,000 mL 04-25 05:30: 00 04-26 19:52 :00 No 1000mL at 125 mL/hr, IV Infusion, CONTINUOUS , Starting on Sat04/24/23 at 2330, Until Sat04/26/23 at 1352, Routine
Resume after banana bag is completed< br> [facility] NaCl 0.9% (NS) IV infusion 1,000 mL 04-25 03:45: 00 04-25 05:27 :44 No 1000mL at 125 mL/hr, IV Infusion, CONTINUOUS , Starting on Sat04/24/23 at 2145, Until Sat04/24/23 at 2327, Routine [facility] haloperidol lactate (HALDOL) injection 2 mg 04-25 03:42: 43 Yes 2mg 2 mg, Slow IV Push, Q6HPRN, Starting on Sat04/24/23 at 2142, Until Discontinu ed, Routine, Sedation, Psychosis [facility] ondansetron (ZOFRAN (PF)) injection 4 mg 04-25 03:41: 50 Yes 4mg 4 mg, Slow IV Push, Q4HPRN, Starting on Sat04/24/23 at 2141, Until Discontinu ed, Routine, Nausea and Vomiting (N/V) [facility] acetaminoph en (TYLENOL) tablet 650 mg 04-25 03:41: 07 Yes 650mg 650 mg, Oral, Q6HPRN, Starting on Sat04/24/23 at 2141, Until Discontinu ed, Routine, Pain (scale 1-3) [facility] cefTRIAXone (ROCEPHIN) 1,000 mg in NaCl 0.9% (NS) 100 mL MINI-BAG 04-25 02:45: 00 04-25 03:06 :00 No 1000mg 1,000 mg, IV Piggyback, ONCE, 1 dose, On Sat04/24/23 at 2045, Administer over 30 Minutes, 100 mL
Reas on for Anti-Infec tive: Documented Infection< br>Documen colleen Infection Site: Urine
D uration of Therapy: Other (see Comments) [facility] iopamidol (ISOVUE 370-500 mL) injection 85 mL 04-25 02:15: 00 04-25 02:15 :00 No 85mL 85 mL, Intravenou s, ONCE, 1 dose, On Sat04/24/23 at 2015, Routine [facility] NaCl 0.9% (NS) bolus infusion 1,000 mL 04-24 23:15: 00 04-25 02:47 :00 No 1000mL at 999 mL/hr, 1,000 mL, IV Infusion, ONCE, 1 dose, On Sat04/24/23 at 1715, STAT [facility] diazePAM (VALIUM) tablet 2.5 mg 04-24 23:15: 00 04-24 23:58 :00 No 2.5mg 2.5 mg, Oral, ONCE, 1 dose, On Sat04/24/23 at 1715, [facility] sulfate in [facility] 2 gram/50 mL (4 %) infusion 2 g 04-24 23:00: 00 04-24 23:58 :00 No 2g 2 g, IV Piggyback, Administer over 60 Minutes, ONCE, 1 dose, On Sat04/24/23 at 1700, Routine [facility] thiamine (VITAMIN B1) injection 100 mg 04-24 22:15: 00 04-24 22:58 :00 No 100mg 100 mg, Slow IV Push, ONCE, 1 dose, On Sat04/24/23 at 1615, [facility] Vyvanse 60 MG Vyvanse 60 MG [...] Vyvanse 60 MG Vyvanse 60 MG 2022-04 018 00:00: 00 No 1{capsu le_in_t he_morn ing} QD Vyvanse 60 MG Vyvanse 60 MG Vyvanse 60 MG 2022-04 0-18 00:00: 00 No 1{capsu le_in_t he_morn ing} QD Vyvanse 60 MG Vyvanse 60 MG Vyvanse 60 MG 2022-04 0-18 00:00: 00 No 1{capsu le_in_t he_morn ing} QD Vyvanse 60 MG Vyvanse 60 MG Vyvanse 60 MG 2022-04 0-14 00:00: 00 No 1{capsu le_in_t he_morn ing} QD Vyvanse 60 MG Vyvanse 60 MG Vyvanse 60 MG 2022-04 0-14 00:00: 00 No 1{capsu le_in_t he_morn ing} QD Vyvanse 60 MG Vyvanse 60 MG Vyvanse 60 MG 2022-04 0-14 00:00: 00 No 1{capsu le_in_t he_morn ing} [...] 12-12 09:09: 49 Yes Take by mouth. [facility] lisdexamfet amine (VYVANSE) 60 mg capsule 12-12 09:09: 24 Yes 60mg Take 1 capsule by mouth every morning. [facility] oxazepam (SERAX) capsule 15 mg 11-14 08:09: 00 11-15 08:14 :00 No 15mg 15 mg, Oral, Q12H TAPER, 2 doses, First dose on Sat11/14/22 at 0315, Last dose on Sat11/14/22 at 1515, Routine [facility] lisdexamfet amine (VYVANSE) 60 mg capsule 11-13 18:24: 40 Yes 60mg Take 1 capsule by mouth every morning. [facility] potassium phosphate 15 mmol in NaCl 0.9% (NS) 150 mL piggyback 11-13 14:30: 00 11-13 19:51 :00 No 15mmol 15 mmol, IV Piggyback, ONCE, 1 dose, On Sat11/13/22 at 0930, 150 mL [facility] sennosides (SENOKOT) tablet 8.6 mg 11-12 14:00: 00 Yes 8.6mg 8.6 mg, Oral, DAILY, First dose on Sat11/12/22 at 0900, Until Discontinu ed, Routine [facility] D5W 0.45% NaCl (1/2NS) IV infusion 1,000 mL 11-12 13:30: 00 11-12 14:54 :49 No 1000mL at 100 mL/hr, 1,000 mL, IV Infusion, ONCE, 1 dose, On Sat11/12/22 at 0830, Routine [facility] acetaminoph en (TYLENOL) tablet 500 mg 11-12 03:43: 02 Yes 500mg 500 mg, Oral, Q6HPRN, Starting on Sat11/11/22 at 2243, Until Discontinu ed, Routine, Pain (scale 1-3) [facility] oxazepam (SERAX) capsule 15 mg 11-12 02:09: 00 Yes 15mg 15 mg, Oral, Q4HPRN, Starting on Sat11/11/22 at 2109, Until Discontinu ed, Routine, Only while awake for DBP equal to or greater than 100, HR equal to or greater than 100. [facility] D5W 0.9% NaCl (NS) 1 L + KCL 20 mEq 11-11 19:15: 00 11-12 12:42 :08 No IV Infusion, at 100 mL/hr, CONTINUOUS , Starting on Sat11/11/22 at 1415, Until Sat11/12/22 at 0742, Routine [facility] multivitami n oral solution 15 mL 11-11 18:15: 00 Yes 15mL 15 mL, Oral, DAILY, First dose on Sat11/11/22 at 1315, Until Discontinu ed, Routine [facility] potassium chloride in water (KCL) 20 mEq/100 mL RTU IVPB 20 mEq 11-11 10:45: 00 11-11 16:30 :00 No 20meq 20 mEq, IV Infusion, Q2H ES, 2 doses, First dose on Sat11/11/22 at 0545, Last dose on Sat11/11/22 at 0745, 100 mL [facility] glucagon (GLUCAGEN DIAGNOSTIC KIT) injection 1 mg 11-11 10:16: 15 Yes 1mg 1 mg, Intramuscu lar, PRN, Starting on Sat11/11/22 at 0516, Until Discontinu ed, CECILIA, Blood Glucose < or = 70 mg/dL and patient is NPO, unable to swallow or has mental changes. [facility] dextrose 50 % in water (D50W) injection 25 mL 11-11 10:16: 15 Yes 25mL 25 mL, Slow IV Push, PRN, Starting on Sat11/11/22 at 0516, Until Discontinu ed, CECILIA, Blood Glucose < or = 70 mg/dL and patient is NPO, unable to swallow or has mental status changes. [facility] NaCl 0.9% (NS) IV infusion 1,000 mL 11-11 01:30: 00 11-11 17:57 :28 No 1000mL at 100 mL/hr, IV Infusion, CONTINUOUS , Starting on 11/10/22 at 2030, Until 11/11/22 at 1257, Routine [facility] heparin (porcine) injection 5,000 Units 11-11 01:00: 00 Yes 5000U 5,000 Units, Subcutaneo us, Q12H, First dose on 11/10/22 at 2000, Until Discontinu ed, [facility] 2 gram/50 mL (4 %) infusion 2 g 11-11 00:45: 00 11-11 04:01 :00 No 2g 2 g, IV Piggyback, Administer over 60 Minutes, ONCE, 1 dose, On [facility] 11/10/22 at 1945, [facility] dexMEDEtomi dine 200 mcg in 0.9 [...] at maximum allowed dose, contact prescriber .
[facility] foLIC acid (FOLATE) injection 1 mg 11-11 00:00: 00 Yes 1mg 1 mg, Intramuscu lar, DAILY, First dose on 11/10/22 at 1900, Until Discontinu ed, Routine [facility] thiamine (VITAMIN B1) 100 mg in NaCl 0.9% (NS) piggyback 11-11 00:00: 00 11-15 13:59 :00 No 100mg IV Piggyback, DAILY, 5 doses, First dose on Sat11/10/22 at 1900, Last dose on Sat11/14/22 at 0900, 50 mL [facility] LORazepam (ATIVAN) injection 1 mg 11-10 23:43: 00 11-12 02:09 :22 No 1mg 1 mg, Slow IV Push, TIDPRN, Starting on 11/10/22 at 1843, Until 11/11/22 at 2109, Routine, Seizures [facility] diazePAM (VALIUM) injection 10 mg 11-10 23:15: 00 11-10 23:17 :00 No 10mg 10 mg, Slow IV Push, ONCE, 1 dose, On 11/10/22 at 1815, STAT [facility] proMETHazin e (PHENERGAN) 25 mg in NaCl 0.9% (NS) 50 mL piggyback 11-10 23:15: 00 11-10 23:19 :00 No 25mg 25 mg, IV Piggyback, ONCE, 1 dose, On Sat11/10/22 at 1815, 50 mL [facility] LORazepam (ATIVAN) injection 2 mg 11-10 23:00: 00 11-10 23:10 :00 No 2mg 2 mg, Slow IV Push, ONCE, 1 dose, On Sat11/10/22 at 1800, STAT [facility] LORazepam (ATIVAN) injection 1 mg 11-10 22:15: 00 11-10 22:26 :00 No 1mg 1 mg, Slow IV Push, ONCE, 1 dose, On 11/10/22 at 1715, STAT [facility] lisinopriL 2.5 mg tablet 11-08 00:00: 00 12-09 04:59 :00 No [id number] 2.5mg Take 1 tablet by mouth in the morning for 30 days. [facility] magnesium sulfate in water 2 gram/50 mL (4 %) infusion 2 g 11-07 15:00: 00 11-07 15:40 :00 No 2g 2 g, IV Piggyback, Administer over 60 Minutes, ONCE, 1 dose, On Sat11/07/22 at 1000, Routine [facility] lisdexamfet amine (VYVANSE) 60 mg capsule 11-07 14:54: 12 Yes 60mg Take 1 capsule by mouth every morning. [facility] lisinopriL (PRINIVIL,Z ESTRIL) tablet 2.5 mg 11-07 14:15: 00 Yes 2.5mg 2.5 mg, Oral, DAILY, First dose on Sat11/07/22 at 0915, Until Discontinu ed, Routine [facility] enoxaparin (LOVENOX) injection 40 mg 11-06 22:00: 00 Yes 40mg 40 mg, Subcutaneo us, DAILY, First dose on Sat11/06/22 at 1700, Until Discontinu ed, Routine [facility] pantoprazol e (PROTONIX) EC tablet 40 mg 11-06 14:00: 00 Yes 40mg 40 mg, Oral, DAILY, First dose on Sat11/06/22 at 0900, Until Discontinu ed, Routine [facility] metoprolol succinate XL (TOPROL XL) tablet 25 mg 11-06 14:00: 00 Yes 25mg 25 mg, Oral, DAILY, First dose on Sat11/06/22 at 0900, Until Discontinu ed, Routine [facility] docusate (COLACE) capsule 100 mg 11-06 13:00: 00 Yes 100mg 100 mg, Oral, BID, First dose on Sat11/06/22 at 0800, Until Discontinu ed, Routine [facility] D5W 0.9% NaCl (NS) IV infusion 1,000 mL 11-06 12:15: 00 11-08 12:14 :00 No 1000mL at 200 mL/hr, 1,000 mL, IV Infusion, CONTINUOUS , Starting on Sat11/06/22 at 0715, Until [place] 11/08/22 at 0714, [facility] D5W 0.9% NaCl (NS) IV infusion 1,000 mL 11-06 11:30: 00 11-06 12:13 :19 No 1000mL at 200 mL/hr, 1,000 mL, IV Infusion, CONTINUOUS , Starting on Sat11/06/22 at 0630, Until Sat11/06/22 at 0713, [facility] ondansetron (ZOFRAN (PF)) injection 4 mg 11-06 10:31: 07 Yes 4mg 4 mg, Slow IV Push, Q6HPRN, Starting on Sat11/06/22 at 0531, Until Discontinu ed, Routine, Nausea and Vomiting (N/V) [facility] bisacodyL (DULCOLAX) tablet 10 mg 11-06 10:31: 02 Yes 10mg 10 mg, Oral, QDAILYPRN, Starting on Sat11/06/22 at 0531, Until Discontinu ed, Routine, Constipati on [facility] FENTanyl PF (SUBLIMAZE (PF)) injection 25 mcg 11-06 10:30: 33 11-07 10:29 :33 No 25ug 25 mcg, Slow IV Push, Q4HPRN, Starting on Sat11/06/22 at 0530, Until Sat11/07/22 at 0529, Routine, Pain (scale 7-10) [facility] acetaminoph en (TYLENOL) tablet 650 mg 11-06 10:29: 53 Yes 650mg 650 mg, Oral, Q6HPRN, Starting on Sat11/06/22 at 0529, Until Discontinu ed, Routine, Pain (scale 1-3) [facility] foLIC acid (FOLATE) 5 mg in NaCl 0.9% (NS) piggyback 11-06 10:15: 00 11-06 10:35 :00 No 5mg IV Piggyback, ONCE NOW, 1 dose, On Sat11/06/22 at 0515, 50 mL [facility] thiamine (VITAMIN B1) 100 mg in NaCl 0.9% (NS) piggyback 11-06 10:15: 00 11-06 10:45 :00 No 100mg IV Piggyback, ONCE NOW, 1 dose, On Sat11/06/22 at 0515, 50 mL [facility] NaCl 0.9% (NS) bolus infusion 1,000 mL 11-06 09:00: 00 11-06 09:11 :00 No 1000mL at 999 mL/hr, 1,000 mL, IV Piggyback, ONCE, 1 dose, On Sat11/06/22 at 0400, STAT [facility] morpHINE (4 mg/mL) injection 4 mg 11-06 09:00: 00 11-06 08:54 :00 No 4mg 4 mg, Slow IV Push, ONCE, 1 dose, On Sat11/06/22 at 0400, STAT [facility] iopamidol (ISOVUE 370-500 mL) injection 70 mL 11-06 07:45: 00 11-06 06:58 :00 No [id number] 70mL 70 mL, Intravenou s, ONCE, 1 dose, On Sat11/06/22 at 0245, Routine [facility] ketorolac (TORADOL) injection 30 mg 11-06 07:30: 00 11-06 06:33 :00 No 30mg 30 mg, Slow IV Push, ONCE, 1 dose, On Sat11/06/22 at 0230, Routine [facility] NaCl 0.9% (NS) bolus infusion 1,000 mL 11-06 07:15: 00 11-06 08:11 :00 No 1000mL at 999 mL/hr, 1,000 mL, IV Infusion, ONCE, 1 dose, On Sat11/06/22 at 0215, [facility] FENTanyl PF (SUBLIMAZE (PF)) injection 50 mcg 11-06 07:15: 00 11-06 06:34 :00 No 50ug 50 mcg, Slow IV Push, ONCE, 1 dose, On Sat11/06/22 at 0215, Routine [facility] ondansetron (ZOFRAN (PF)) injection 4 mg 11-06 06:30: 00 11-06 06:34 :00 No 4mg 4 mg, Slow IV Push, ONCE, 1 dose, On Sat11/06/22 at 0130, [facility] albuterol 90 mcg/actuati on inhaler 11-06 01:23: 41 11-06 00:00 :00 No 2{puff} Inhale 2 Puffs every 6 (six) hours as needed for Wheezing or Shortness of Breath. [facility] ibuprofen 600 mg tablet 11-06 01:23: 41 11-06 00:00 :00 No 600mg Take 600 mg by mouth in the morning. [facility] lisdexamfet amine (VYVANSE) 60 mg capsule 10-30 00:00: 00 11-06 00:00 :00 No 1 capsule in the morning Orally Once a day for 30 days [facility] doxycycline hyclate (Vibramycin ) capsule 100 mg 08-28 03:30: 00 08-28 03:50 :00 No 100mg 100 mg, Oral, ONCE, 1 dose, On Sat08/27/22 at 2230, CECILIA
Re ason for Anti-Infec tive: Documented Infection< br>Documen colleen Infection Site: Skin / Soft Tissue
Duration of Therapy: 10 days [facility] cephALEXin (KEFLEX) capsule 500 mg 08-28 03:30: 00 08-28 03:50 :00 No 500mg 500 mg, Oral, ONCE, 1 dose, On Sat08/27/22 at 2230, C[facility]ILIA
Re ason for Anti-Infec tive: Empiric Therapy for Suspected Infection< br>Empiric Therapy Site: Skin / Soft tissue
Duration of therapy: 5 days [facility] lisdexamfet amine (VYVANSE) 60 mg capsule 08-27 22:56: 45 Yes 60mg Take 1 capsule by mouth every morning. [facility] pantoprazol e 40 mg EC tablet 08-27 20:42: 39 08-27 00:00 :00 No 40mg Take 40 mg by mouth in the morning. [facility] lisdexamfet amine 50 mg capsule 08-27 20:42: 27 08-27 00:00 :00 No 50mg Take 50 mg by mouth every morning. [facility] doxycycline hyclate 100 mg capsule 08-27 00:00: 00 Yes [id number] 100mg Take 1 capsule by mouth in the morning and 1 capsule in the evening. [facility] cephALEXin (KEFLEX) 500 mg capsule 08-27 00:00: 00 09-04 04:59 :00 No [id number] 500mg Take 1 capsule by mouth in the morning and 1 capsule at noon and 1 capsule in the evening. Do all this for 7 days. [facility] cefTRIAXone Sodium cefTRIAXone Sodium 3-0 -10 00:00: 00 No 1g [facility] cefTRIAXone Sodium cefTRIAXone Sodium 3-0 2-10 00:00: 00 No 1g [facility] cefTRIAXone Sodium cefTRIAXone Sodium 3-0 2-10 00:00: 00 No 1g [facility] cefTRIAXone Sodium cefTRIAXone Sodium 3-0 2-10 00:00: 00 No 1g [facility] cefTRIAXone Sodium cefTRIAXone Sodium 3-0 2-10 00:00: 00 No 1g [facility] cefTRIAXone Sodium cefTRIAXone Sodium 3-0 2-10 00:00: 00 No 1g [facility] cefTRIAXone Sodium cefTRIAXone Sodium 3-0 2-10 00:00: 00 No 1g [facility] cefTRIAXone Sodium cefTRIAXone Sodium 3-0 2-10 00:00: 00 No 1g [facility] cefTRIAXone Sodium cefTRIAXone Sodium 3-0 2-10 00:00: 00 No 1g [facility] cefTRIAXone Sodium cefTRIAXone Sodium 2023-0 2-10 00:00: 00 No 1g [facility] cefTRIAXone Sodium cefTRIAXone Sodium 3-0 2-10 00:00: 00 No 1g [facility] cefTRIAXone Sodium cefTRIAXone Sodium 3-0 2-10 00:00: 00 No 1g [facility] cefTRIAXone Sodium cefTRIAXone Sodium 2022-0 2-10 00:00: 00 No 1g [facility] cefTRIAXone Sodium cefTRIAXone Sodium 3-0 2-10 00:00: 00 No 1g [facility] cefTRIAXone Sodium cefTRIAXone Sodium 3-0 2-10 00:00: 00 No 1g [facility] cefTRIAXone Sodium cefTRIAXone Sodium 2022-0 2-10 00:00: 00 No 1g [facility] cefTRIAXone Sodium cefTRIAXone Sodium 2022-0 2-10 00:00: 00 No 1g [facility] cefTRIAXone Sodium cefTRIAXone Sodium 2022-0 2-10 00:00: 00 No 1g [facility] Vyvanse 60 MG Vyvanse 60 MG 0 1-10 00:00: 00 No 1{capsu le_in_t he_morn ing} QD Vyvanse 60 MG iopamidol (ISOVUE 370-500 mL) injection 80 mL 2021-04 01:00: 00 04-13 00:03 :00 No [id number] 80mL 80 mL, Intravenou s, ONCE, 1 dose, On [place] 04/12/22 at 1900, Routine [facility] NaCl 0.9% (NS) bolus infusion 500 mL 2021-04 23:30: 00 04-12 23:47 :00 No 500mL at 999 mL/hr, 500 mL, IV Infusion, ONCE, 1 dose, On [place] 04/12/22 at 1730, C[facility]IL[facility] morpHINE (4 mg/mL) injection 4 mg 2021-04 22:45: 00 04-12 23:03 :00 No 4mg 4 mg, Slow IV Push, ONCE, 1 dose, On [place] 04/12/22 at 1645, STAT [facility] ampicillin- sulbactam (UNASYN) 3 g in NaCl 0.9% (NS) 100 mL MINI-BAG 2021-04 22:45: 00 04-12 23:34 :00 No 3g 3 g, IV Piggyback, ONCE, 1 dose, On [place] 04/12/22 at 1645, Administer over 30 Minutes, 100 mL
Reas on for Anti-Infec tive: Documented Infection< br>Documen colleen Infection Site: HEENT
D uration of Therapy: 7 days [facility] HYDROcodone -acetaminop hen 5-325 mg tablet 2021-04 00:00: 00 04-20 05:59 :00 No [id number] 1{tbl} Take 1 tablet by mouth every 6 (six) hours as needed for Pain (scale 7-10) for up to 7 days. Indication s: acute pain [facility] dexamethaso ne sod phos PF injection 10 mg 2021-04 06:30: 00 04-09 06:32 :00 No 10mg 10 mg, Oral, ONCE, 1 dose, On 04/09/22 at 0030, 1 mL [facility] Vyvanse 60 MG Vyvanse 60 MG [...] MG Vyvanse 60 MG Vyvanse 60 MG 2022-1 1-11 00:00: 00 No 1{capsu le_in_t he_morn ing} QD Vyvanse 60 MG Vyvanse 60 MG Vyvanse 60 MG 2021-04 0-13 00:00: 00 No 1{capsu le_in_t he_morn ing} QD Vyvanse 60 MG Vyvanse 60 MG Vyvanse 60 MG 9-13 00:00: 00 No 1{capsu le_in_t he_morn ing} QD Vyvanse 60 MG lisdexamfet amine 50 mg capsule 11-13 15:00: 18 Yes 50mg Take 50 mg by mouth every morning. [facility] pantoprazol e 40 mg EC tablet 11-13 15:00: 18 Yes 40mg Take 40 mg by mouth in the morning. [facility] ibuprofen 600 mg tablet 11-13 15:00: 18 Yes 600mg Take 600 mg by mouth in the morning. [facility] aspirin 325 mg tablet 11-13 00:00: 00 12-12 04:59 :00 No [id number] 325mg Take 1 tablet by mouth in the morning and 1 tablet in the evening. Take with meals. Do all this for 28 days. [facility] Medrol 4 MG Medrol 4 MG 10-17 00:00: 00 10-23 00:00 :00 No Medrol 4 MG Vyvanse 60 MG Vyvanse 60 MG 5-10 00:00: 00 No 1{capsu le_in_t he_morn ing} QD Vyvanse 60 MG Vyvanse 60 MG Vyvanse 60 MG 4-11 00:00: 00 No 1{capsu le_in_t he_morn ing} QD Vyvanse 60 MG valACYclovi r HCl 1 GM valACYclovi r HCl 1 GM 3-24 00:00: 00 09-11 00:00 :00 No 1{table t} QD valACYclov ir HCl 1 GM Vyvanse 60 MG Vyvanse 60 MG 2022-0 3-07 00:00: 00 No 1{capsu le_in_t he_morn ing} QD Vyvanse 60 MG Vyvanse 60 MG Vyvanse 60 MG 2-08 00:00: 00 No 1{capsu le_in_t he_morn ing} QD Vyvanse 60 MG Vyvanse 60 MG Vyvanse 60 MG 2020-04 2- 00:00: 00 No 1{capsu le_in_t he_morn ing} QD Vyvanse 60 MG Vyvanse 60 MG Vyvanse 60 MG 2020-04 0 00:00: 00 No 1{capsu le_in_t he_morn ing} QD Vyvanse 60 MG Vyvanse 60 MG Vyvanse 60 MG 924 00:00: 00 No 1{capsu le_in_t he_morn ing} QD Vyvanse 60 MG Nystatin [id number] UNIT/ML Nystatin [id number] UNIT/ML 9 00:00: 00 01-23 00:00 :00 No QID Nystatin [id number] UNIT/ML Vitamin B12 (Cyanocobal patel) Vitamin B12 (Cyanocobal patel) 2019-0 01-17 00:00: 00 No 1000ug [facility] Vitamin B12 (Cyanocobal patel) Vitamin B12 (Cyanocobal patel) 0 01-17 00:00: 00 No 1000ug [facility] Vitamin B12 (Cyanocobal patel) Vitamin B12 (Cyanocobal patel) 0 01-17 00:00: 00 No 1000ug [facility] Vitamin B12 (Cyanocobal patel) Vitamin B12 (Cyanocobal patel) 0 01-17 00:00: 00 No 1000ug [facility] Vitamin B12 (Cyanocobal patel) Vitamin B12 (Cyanocobal patel) 0 01-17 00:00: 00 No 1000ug [facility] Vitamin B12 (Cyanocobal paetl) Vitamin B12 (Cyanocobal patel) 0 01-17 00:00: 00 No 1000ug [facility] Vitamin B12 (Cyanocobal patel) Vitamin B12 (Cyanocobal patel) 2020-0 9-28 00:00: 00 No 1000ug [facility] Vitamin B12 (Cyanocobal patel) Vitamin B12 (Cyanocobal patel) 2020-0 928 00:00: 00 No 1000ug [facility] Vitamin B12 (Cyanocobal patel) Vitamin B12 (Cyanocobal patel) 2020-0 9 00:00: 00 No 1000ug [facility] Vitamin B12 (Cyanocobal patel) Vitamin B12 (Cyanocobal patel) 2020-0 9 00:00: 00 No 1000ug [facility] Vitamin B12 (Cyanocobal patel) Vitamin B12 (Cyanocobal patel) 0 01-17 00:00: 00 No 1000ug [facility] Vitamin B12 (Cyanocobal patel) Vitamin B12 (Cyanocobal patel) 2020-0 9 00:00: 00 No 1000ug [facility] Vitamin B12 (Cyanocobal patel) Vitamin B12 (Cyanocobal patel) 2019-0 9 00:00: 00 No 1000ug [facility] Vitamin B12 (Cyanocobal patel) Vitamin B12 (Cyanocobal patel) 2019-0 9 00:00: 00 No 1000ug [facility] Vitamin B12 (Cyanocobal patel) Vitamin B12 (Cyanocobal patel) 2019-0 928 00:00: 00 No 1000ug [facility] Vitamin B12 (Cyanocobal patel) Vitamin B12 (Cyanocobal patel) 2019-0 928 00:00: 00 No 1000ug [facility] Vitamin B12 (Cyanocobal patel) Vitamin B12 (Cyanocobal patel) 2020-0 9-28 00:00: 00 No 1000ug [facility] Vitamin B12 (Cyanocobal patel) Vitamin B12 (Cyanocobal patel) 2019-0 928 00:00: 00 No 1000ug [facility] Vitamin B12 (Cyanocobal patel) Vitamin B12 (Cyanocobal patel) 2020-0 928 00:00: 00 No 1000ug [facility] Vitamin B12 (Cyanocobal patel) Vitamin B12 (Cyanocobal patel) 2019-0 9-28 00:00: 00 No 1000ug [facility] Vitamin B12 (Cyanocobal patel) Vitamin B12 (Cyanocobal patel) 0 01-17 00:00: 00 No 1000ug [facility] Vitamin B12 (Cyanocobal patel) Vitamin B12 (Cyanocobal patel) 0 9 00:00: 00 No 1000ug [facility] Vitamin B12 (Cyanocobal patel) Vitamin B12 (Cyanocobal patel) 0 9 00:00: 00 No 1000ug [facility] Vitamin B12 (Cyanocobal patel) Vitamin B12 (Cyanocobal patel) 0 01-17 00:00: 00 No 1000ug [facility] Medrol Medrol 2019-0 8-18 00:00: 00 12-13 00:00 :00 No Liz Malagon as directed [facility] Solumedrol 125mg/2ml Solumedrol 125mg/2ml 2019-0 8-17 00:00: 00 No 42mg [facility] Solumedrol 125mg/2ml Solumedrol 125mg/2ml 2019-0 8-17 00:00: 00 No 42mg [facility] Solumedrol 125mg/2ml Solumedrol 125mg/2ml 2019-0 8-17 00:00: 00 No 42mg [facility] Solumedrol 125mg/2ml Solumedrol 125mg/2ml 2019-0 8-17 00:00: 00 No 42mg [facility] Solumedrol 125mg/2ml Solumedrol 125mg/2ml 2019-0 8-17 00:00: 00 No 42mg [facility] Solumedrol 125mg/2ml Solumedrol 125mg/2ml 2019-0 8-17 00:00: 00 No 42mg [facility] Solumedrol 125mg/2ml Solumedrol 125mg/2ml 2020-0 8-17 00:00: 00 No 42mg [facility] Solumedrol 125mg/2ml Solumedrol 125mg/2ml 2019-0 8-17 00:00: 00 No 42mg [facility] Solumedrol 125mg/2ml Solumedrol 125mg/2ml 2019-0 8-17 00:00: 00 No 42mg [facility] Solumedrol 125mg/2ml Solumedrol 125mg/2ml 2019-0 8-17 00:00: 00 No 42mg [facility] Solumedrol 125mg/2ml Solumedrol 125mg/2ml 2019-0 8-17 00:00: 00 No 42mg [facility] Solumedrol 125mg/2ml Solumedrol 125mg/2ml 2019-0 8-17 00:00: 00 No 42mg [facility] Solumedrol 125mg/2ml Solumedrol 125mg/2ml 2019-0 8-17 00:00: 00 No 42mg [facility] Solumedrol 125mg/2ml Solumedrol 125mg/2ml 2019-0 8-17 00:00: 00 No 42mg [facility] Solumedrol 125mg/2ml Solumedrol 125mg/2ml 2019-0 8-17 00:00: 00 No 42mg [facility] Solumedrol 125mg/2ml Solumedrol 125mg/2ml 2019-0 8-17 00:00: 00 No 42mg [facility] Solumedrol 125mg/2ml Solumedrol 125mg/2ml 2019-0 8-17 00:00: 00 No 42mg [facility] Solumedrol 125mg/2ml Solumedrol 125mg/2ml 2019-0 8-17 00:00: 00 No 42mg [facility] Solumedrol 125mg/2ml Solumedrol 125mg/2ml 2020-0 8-17 00:00: 00 No 42mg [facility] Solumedrol 125mg/2ml Solumedrol 125mg/2ml 0 12-06 00:00: 00 No 42mg [facility] Solumedrol 125mg/2ml Solumedrol 125mg/2ml 0 12-06 00:00: 00 No 42mg [facility] Solumedrol 125mg/2ml Solumedrol 125mg/2ml 0 12-06 00:00: 00 No 42mg [facility] Solumedrol 125mg/2ml Solumedrol 125mg/2ml 0 12-06 00:00: 00 No 42mg [facility] Solumedrol 125mg/2ml Solumedrol 125mg/2ml 0 12-06 00:00: 00 No 42mg [facility] metoprolol succinate XL 25 mg 24 hr tablet 11-05 00:00: 00 Yes [id number] 25mg Take 1 tablet by mouth daily. [facility] Kenalog (Triamcinol one) Kenalog (Triamcinol one) 08-14 00:00: 00 No 40mg [facility] Kenalog (Triamcinol one) Kenalog (Triamcinol one) 08-14 00:00: 00 No 40mg [facility] Kenalog (Triamcinol one) Kenalog (Triamcinol one) 08-14 00:00: 00 No 40mg [facility] Kenalog (Triamcinol one) Kenalog (Triamcinol one) 0 08-14 00:00: 00 No 40mg [facility] Kenalog (Triamcinol one) Kenalog (Triamcinol one) 0 08-14 00:00: 00 No 40mg [facility] Kenalog (Triamcinol one) Kenalog (Triamcinol one) 0 08-14 00:00: 00 No 40mg [facility] Kenalog (Triamcinol one) Kenalog (Triamcinol one) 0 08-14 00:00: 00 No 40mg [facility] Kenalog (Triamcinol one) Kenalog (Triamcinol one) [id number] 08-14 00:00: 00 No 40mg [facility] Kenalog (Triamcinol one) Kenalog (Triamcinol one) [id number] 08-14 00:00: 00 No 40mg [facility] Kenalog (Triamcinol one) Kenalog (Triamcinol one) 0 08-14 00:00: 00 No 40mg [facility] Kenalog (Triamcinol one) Kenalog (Triamcinol one) 0 08-14 00:00: 00 No 40mg [facility] Kenalog (Triamcinol one) Kenalog (Triamcinol one) 0 08-14 00:00: 00 No 40mg [facility] Kenalog (Triamcinol one) Kenalog (Triamcinol one) 0 08-14 00:00: 00 No 40mg [facility] Kenalog (Triamcinol one) Kenalog (Triamcinol one) [id number] 08-14 00:00: 00 No 40mg [facility] Kenalog (Triamcinol one) Kenalog (Triamcinol one) [id number] 08-14 00:00: 00 No 40mg [facility] Kenalog (Triamcinol one) Kenalog (Triamcinol one) [id number] 08-14 00:00: 00 No 40mg [facility] Kenalog (Triamcinol one) Kenalog (Triamcinol one) 20190 08-14 00:00: 00 No 40mg [facility] Kenalog (Triamcinol one) Kenalog (Triamcinol one) [id number] 08-14 00:00: 00 No 40mg [facility] Kenalog (Triamcinol one) Kenalog (Triamcinol one) 08-14 00:00: 00 No 40mg [facility] Kenalog (Triamcinol one) Kenalog (Triamcinol one) 08-14 00:00: 00 No 40mg [facility] Kenalog (Triamcinol one) Kenalog (Triamcinol one) 08-14 00:00: 00 No 40mg [facility] Kenalog (Triamcinol one) Kenalog (Triamcinol one) 08-14 00:00: 00 No 40mg [facility] Kenalog (Triamcinol one) Kenalog (Triamcinol one) 08-14 00:00: 00 No 40mg [facility] Kenalog (Triamcinol one) Kenalog (Triamcinol one) 08-14 00:00: 00 No 40mg [facility] Pantoprazol e Sodium 40 MG Pantoprazol e [...] Comments Source TD Pres-Free 2023-10-18 00:00:00 Completed [facility] TD Pres-Free 2023-10-18 00:00:00 Completed [facility] TD Pres-Free 2023-10-18 00:00:00 Completed [facility] Influenza High Dose 2022-02-11 00:00:00 Completed [facility] Influenza High Dose 2022-02-11 00:00:00 Completed [facility] Influenza High Dose 2022-02-11 00:00:00 Completed [facility] Influenza High Dose 2022-02-11 00:00:00 Completed [facility] Influenza High Dose 2022-02-11 00:00:00 Completed [facility] Influenza High Dose 2022-02-11 00:00:00 Completed [facility] Influenza, High-Dose, Trivalent, PF (FLUZONE) 2022-02-11 00:00:00 Completed [facility] Influenza, High-Dose, Trivalent, PF (FLUZONE) 2022-02-11 00:00:00 Completed [facility] Influenza, High-Dose, Trivalent, PF (FLUZONE) 2022-02-11 00:00:00 Completed [facility] HPV9 2021-08-14 00:00:00 Completed [facility] HPV9 2021-08-14 00:00:00 Completed [facility] HPV9 2021-08-14 00:00:00 Completed [facility] HPV9 2021-08-14 00:00:00 Completed [facility] HPV9 2021-08-14 00:00:00 Completed [facility] HPV9 2021-08-14 00:00:00 Completed [facility] HPV9 2021-08-14 00:00:00 Completed [facility] HPV9 2021-08-14 00:00:00 Completed [facility] HPV9 2021-08-14 00:00:00 Completed [facility] HPV9 2021-08-14 00:00:00 Completed [facility] HPV9 2021-08-14 00:00:00 Completed [facility] HPV9 2021-08-14 00:00:00 Completed [facility] HPV9 2021-08-14 00:00:00 Completed HPV9 2021-08-14 00:00:00 Completed HPV9 2021-08-14 00:00:00 Completed HPV9 2021-07-13 00:00:00 Completed [facility] HPV9 2021-07-13 00:00:00 Completed [facility] HPV9 2021-07-13 00:00:00 Completed [facility] HPV9 2021-07-13 00:00:00 Completed [facility] HPV9 2021-07-13 00:00:00 Completed [facility] HPV9 2021-07-13 00:00:00 Completed [facility] HPV9 2021-07-13 00:00:00 Completed [facility] HPV9 2021-07-13 00:00:00 Completed [facility] HPV9 2021-07-13 00:00:00 Completed [facility] HPV9 2021-07-13 00:00:00 Completed [facility] HPV9 2021-07-13 00:00:00 Completed [facility] HPV9 2021-07-13 00:00:00 Completed [facility] HPV9 2021-07-13 00:00:00 Completed [facility] HPV9 2021-07-13 00:00:00 Completed [facility] HPV9 2021-07-13 00:00:00 Completed [facility] Influenza Virus Vaccine Quad IM, Preserv and ABX Free 6 MO-64 YRS 2021-03-07 00:00:00 Completed [facility] Influenza Virus Vaccine Quad IM, Preserv and ABX Free 6 MO-64 YRS 2021-03-07 00:00:00 Completed [facility] Influenza Virus Vaccine Quad IM, Preserv and ABX Free 6 MO-64 YRS 2021-03-07 00:00:00 Completed [facility] Influenza Virus Vaccine Quad IM, Preserv and ABX Free 6 MO-64 YRS 2021-03-07 00:00:00 Completed [facility] Influenza Virus Vaccine Quad IM, Preserv and ABX Free 6 MO-64 YRS 2021-03-07 00:00:00 Completed [facility] Influenza Virus Vaccine Quad IM, Preserv and ABX Free 6 MO-64 YRS 2021-03-07 00:00:00 Completed [facility] Influenza Virus Vaccine Quad IM, Preserv and ABX Free 6 MO-64 YRS 2021-03-07 00:00:00 Completed [facility] Influenza Virus Vaccine Quad IM, Preserv and ABX Free 6 MO-64 YRS 2021-03-07 00:00:00 Completed [facility] Influenza Virus Vaccine Quad IM, Preserv and ABX Free 6 MO-64 YRS 2021-03-07 00:00:00 Completed [facility] Influenza Virus Vaccine Quad IM, Preserv and ABX Free 6 MO-64 YRS 2021-03-07 00:00:00 Completed [facility] Influenza Virus Vaccine Quad IM, Preserv and ABX Free 6 MO-64 YRS 2021-03-07 00:00:00 Completed [facility] Influenza Virus Vaccine Quad IM, Preserv and ABX Free 6 MO-64 YRS 2021-03-07 00:00:00 Completed [facility] Influenza Virus Vaccine Quad IM, Preserv and ABX Free 6 MO-64 YRS (FLUCELVAX) 2021-03-07 00:00:00 Completed [facility] Influenza Virus Vaccine Quad IM, Preserv and ABX Free 6 MO-64 YRS (FLUCELVAX) 2021-03-07 00:00:00 Completed [facility] Influenza Virus Vaccine Quad IM, Preserv and ABX Free 6 MO-64 YRS (FLUCELVAX) 2021-03-07 00:00:00 Completed [facility] Vitamin B12 (Cyanocobalamin) Vitamin B12 (Cyanocobalamin) 2020-01-18 16:50:00 Completed [facility] Solumedrol 125mg/2ml Solumedrol 125mg/2ml 2019-12-07 14:03:[address] [facility] 2018-12-24 10:23:[address] [facility] 2018-12-24 10:23:[address] [facility] 2018-12-24 10:23:[address] [facility] 2018-12-24 10:23:[address] [facility] 2018-12-24 10:23:[address] [facility] 2018-12-24 10:23:[address] [facility] 2018-12-24 10:23:[address] [facility] 2018-12-24 00:00:00 Completed [facility] Kenalog (Triamcinolone) Kenalog (Triamcinolone) 2018-08-14 09:05:00 Completed [facility] Influenza Virus Vaccine Quad ID 18-64 YRS 2017-01-18 00:00:00 Completed [facility] Influenza Virus Vaccine Quad ID 18-64 YRS 2017-01-18 00:00:00 Completed [facility] Influenza Virus Vaccine Quad ID 18-64 YRS 2017-01-18 00:00:00 Completed [facility] Influenza Virus Vaccine Quad ID 18-64 YRS 2017-01-18 00:00:00 Completed [facility] Influenza Virus Vaccine Quad ID 18-64 YRS 2017-01-18 00:00:00 Completed [facility] Influenza Virus Vaccine Quad ID 18-64 YRS 2017-01-18 00:00:00 Completed [facility] Influenza Virus Vaccine Quad ID 18-64 YRS 2017-01-18 00:00:00 Completed [facility] Influenza Virus Vaccine Quad ID 18-64 YRS 2017-01-18 00:00:00 Completed [facility] Influenza Virus Vaccine Quad ID 18-64 YRS 2017-01-18 00:00:00 Completed [facility] Influenza Virus Vaccine Quad ID 18-64 YRS 2017-01-18 00:00:00 Completed [facility] Influenza Virus Vaccine Quad ID 18-64 YRS 2017-01-18 00:00:00 Completed [facility] Influenza Virus Vaccine Quad ID 18-64 YRS 2017-01-18 00:00:00 Completed [facility] Influenza Virus Vaccine Quad ID 18-64 YRS 2017-01-18 00:00:00 Completed [facility] Influenza Virus Vaccine Quad ID 18-64 YRS 2017-01-18 00:00:00 Completed [facility] Influenza Virus Vaccine Quad ID 18-64 YRS 2017-01-18 00:00:00 Completed [facility] Influenza Virus Vaccine Quad IM 3+ YRS 2016-08-21 00:00:00 Completed [facility] Influenza Virus Vaccine Quad IM 3+ YRS 2016-08-21 00:00:00 Completed [facility] Influenza Virus Vaccine Quad IM 3+ YRS 2016-08-21 00:00:00 Completed [facility] Influenza Virus Vaccine Quad IM 3+ YRS 2016-08-21 00:00:00 Completed [facility] Influenza Virus Vaccine Quad IM 3+ YRS 2016-08-21 00:00:00 Completed [facility] Influenza Virus Vaccine Quad IM 3+ YRS 2016-08-21 00:00:00 Completed [facility] Influenza Virus Vaccine Quad IM 3+ YRS 2016-08-21 00:00:00 Completed [facility] Influenza Virus Vaccine Quad IM 3+ YRS 2016-08-21 00:00:00 Completed [facility] Influenza Virus Vaccine Quad IM 3+ YRS 2016-08-21 00:00:00 Completed [facility] Influenza Virus Vaccine Quad IM 3+ YRS 2016-08-21 00:00:00 Completed [facility] Influenza Virus Vaccine Quad IM 3+ YRS 2016-08-21 00:00:00 Completed [facility] Influenza Virus Vaccine Quad IM 3+ YRS 2016-08-21 00:00:00 Completed [facility] Influenza Virus Vaccine Quad IM 3+ YRS 2016-08-21 00:00:00 Completed [facility] Influenza Virus Vaccine Quad IM 3+ YRS 2016-08-21 00:00:00 Completed [facility] Influenza Virus Vaccine Quad IM 3+ YRS 2016-08-21 00:00:00 Completed [facility] Influenza Virus Vaccine 2016-08-20 00:00:00 Completed [facility] Influenza Virus Vaccine 2016-08-20 00:00:00 Completed [facility] Influenza Virus Vaccine 2016-08-20 00:00:00 Completed [facility] Influenza Virus Vaccine 2016-08-20 00:00:00 Completed [facility] Influenza Virus Vaccine 2016-08-20 00:00:00 Completed [facility] Influenza Virus Vaccine 2016-08-20 00:00:00 Completed [facility] Influenza Virus Vaccine 2016-08-20 00:00:00 Completed [facility] Influenza Virus Vaccine 2016-08-20 00:00:00 Completed [facility] Influenza Virus Vaccine 2016-08-20 00:00:00 Completed [facility] Influenza Virus Vaccine 2016-08-20 00:00:00 Completed [facility] Influenza Virus Vaccine 2016-08-20 00:00:00 Completed [facility] Influenza Virus Vaccine 2016-08-20 00:00:00 Completed [facility] Influenza Virus Vaccine 2016-08-20 00:00:00 Completed Influenza Virus Vaccine 2016-08-20 00:00:00 Completed Influenza Virus Vaccine 2016-08-20 00:00:00 Completed Influenza Virus Vaccine Quad IM 3+ YRS Unknown Completed [facility] Influenza Virus Vaccine Quad ID 18-64 YRS Unknown Completed [facility] Influenza Virus Vaccine Unknown Completed [facility] Influenza Virus Vaccine Quad IM, Preserv and ABX Free 6 MO-64 YRS (FLUCELVAX) Unknown Completed [facility] Influenza Virus Vaccine Quad IM 3+ YRS Unknown Completed [facility] Influenza Virus Vaccine Quad ID 18-64 YRS Unknown Completed [facility] Influenza Virus Vaccine Unknown Completed [facility] Influenza Virus Vaccine Quad IM, Preserv and ABX Free 6 MO-64 YRS (FLUCELVAX) Unknown Completed [facility] HPV9 Unknown Completed [facility] Influenza High Dose Unknown Completed [facility] Influenza Virus Vaccine Quad IM 3+ YRS Unknown Completed [facility] Influenza Virus Vaccine Quad ID 18-64 YRS Unknown Completed [facility] Influenza Virus Vaccine Unknown Completed [facility] Influenza Virus Vaccine Quad IM, Preserv and ABX Free 6 MO-64 YRS (FLUCELVAX) Unknown Completed [facility] Influenza High Dose Unknown Completed [facility] HPV9 Unknown Completed [facility] Influenza Virus Vaccine Quad IM 3+ YRS Unknown Completed [facility] Influenza Virus Vaccine Quad ID 18-64 YRS Unknown Completed [facility] Influenza Virus Vaccine Unknown Completed [facility] Influenza Virus Vaccine Quad IM, Preserv and ABX Free 6 MO-64 YRS (FLUCELVAX) Unknown Completed [facility] HPV9 Unknown Completed [facility] Influenza High Dose Unknown Completed [facility] Influenza Virus Vaccine Quad IM 3+ YRS Unknown Completed [facility] Influenza Virus Vaccine Quad ID 18-64 YRS Unknown Completed [facility] Influenza Virus Vaccine Unknown Completed [facility] Influenza Virus Vaccine Quad IM, Preserv and ABX Free 6 MO-64 YRS (FLUCELVAX) Unknown Completed [facility] HPV9 Unknown Completed [facility] Influenza High Dose Unknown Completed [facility] Influenza Virus Vaccine Quad IM 3+ YRS Unknown Completed [facility] Influenza Virus Vaccine Quad ID 18-64 YRS Unknown Completed [facility] Influenza Virus Vaccine Unknown Completed [facility] Influenza Virus Vaccine Quad IM, Preserv and ABX Free 6 MO-64 YRS (FLUCELVAX) Unknown Completed [facility] HPV9 Unknown Completed [facility] Influenza High Dose Unknown Completed [facility] Influenza Virus Vaccine Quad IM 3+ YRS Unknown Completed [facility] Influenza Virus Vaccine Quad ID 18-64 YRS Unknown Completed [facility] Influenza Virus Vaccine Unknown Completed [facility] Influenza Virus Vaccine Quad IM, Preserv and ABX Free 6 MO-64 YRS (FLUCELVAX) Unknown Completed [facility] HPV9 Unknown Completed [facility] Influenza High Dose Unknown Completed [facility] Influenza Virus Vaccine Quad IM 3+ YRS Unknown Completed [facility] Influenza Virus Vaccine Quad ID 18-64 YRS Unknown Completed [facility] Influenza Virus Vaccine Unknown Completed [facility] Influenza Virus Vaccine Quad IM, Preserv and ABX Free 6 MO-64 YRS (FLUCELVAX) Unknown Completed [facility] HPV9 Unknown Completed [facility] Influenza High Dose Unknown Completed [facility] Influenza Virus Vaccine Quad IM 3+ YRS Unknown Completed [facility] Influenza Virus Vaccine Quad ID 18-64 YRS Unknown Completed [facility] Influenza Virus Vaccine Unknown Completed [facility] Influenza Virus Vaccine Quad IM, Preserv and ABX Free 6 MO-64 YRS (FLUCELVAX) Unknown Completed [facility] HPV9 Unknown Completed [facility] Influenza High Dose Unknown Completed [facility] Influenza Virus Vaccine Quad IM 3+ YRS Unknown Completed [facility] Influenza Virus Vaccine Quad ID 18-64 YRS Unknown Completed [facility] Influenza Virus Vaccine Unknown Completed [facility] Influenza Virus Vaccine Quad IM, Preserv and ABX Free 6 MO-64 YRS (FLUCELVAX) Unknown Completed [facility] HPV9 Unknown Completed [facility] Influenza High Dose Unknown Completed [facility] TD Pres-Free Unknown Completed [facility] Influenza Virus Vaccine Quad IM 3+ YRS Unknown Completed [facility] Influenza Virus Vaccine Quad ID 18-64 YRS Unknown Completed [facility] Influenza Virus Vaccine Unknown Completed [facility] Influenza Virus Vaccine Quad IM, Preserv and ABX Free 6 MO-64 YRS (FLUCELVAX) Unknown Completed [facility] HPV9 Unknown Completed [facility] Influenza High Dose Unknown Completed [facility] TD Pres-Free Unknown Completed [facility] Influenza Virus Vaccine Quad IM 3+ YRS Unknown Completed [facility] Influenza Virus Vaccine Quad ID 18-64 YRS Unknown Completed [facility] Influenza Virus Vaccine Unknown Completed [facility] Influenza Virus Vaccine Quad IM, Preserv and ABX Free 6 MO-64 YRS (FLUCELVAX) Unknown Completed [facility] HPV9 Unknown Completed [facility] Influenza High Dose Unknown Completed [facility] TD Pres-Free Unknown Completed [facility] Influenza Virus Vaccine Quad IM 3+ YRS Unknown Completed [facility] Influenza Virus Vaccine Quad ID 18-64 YRS Unknown Completed [facility] Influenza Virus Vaccine Unknown Completed [facility] Influenza Virus Vaccine Quad IM, Preserv and ABX Free 6 MO-64 YRS (FLUCELVAX) Unknown Completed [facility] HPV9 Unknown Completed [facility] Influenza High Dose Unknown Completed [facility] TD Pres-Free [facility]ine Quad IM 3+ YRS Unknown Completed [facility] Influenza Virus Vaccine Quad ID 18-64 YRS Unknown Completed [facility] Influenza Virus Vaccine Unknown Completed [facility] Influenza Virus Vaccine Quad IM, Preserv and ABX Free 6 MO-64 YRS (FLUCELVAX) Unknown Completed [facility] HPV9 Unknown Completed [facility] Influenza High Dose Unknown Completed [facility] TD Pres-Free Unknown Completed [facility] Influenza Virus Vaccine Quad IM 3+ YRS Unknown Completed [facility] Influenza Virus Vaccine Quad ID 18-64 YRS Unknown Completed [facility] Influenza Virus Vaccine Unknown Completed [facility] Influenza Virus Vaccine Quad IM, Preserv and ABX Free 6 MO-64 YRS (FLUCELVAX) Unknown Completed [facility] HPV9 Unknown Completed [facility] Influenza High Dose Unknown Completed [facility] TD Pres-Free Unknown Completed [facility] Influenza Virus Vaccine Quad IM 3+ YRS Unknown Completed [facility] Influenza Virus Vaccine Quad ID 18-64 YRS Unknown Completed [facility] Influenza Virus Vaccine Unknown Completed [facility] Influenza Virus Vaccine Quad IM, Preserv and ABX Free 6 MO-64 YRS (FLUCELVAX) Unknown Completed [facility] HPV9 Unknown Completed [facility] Influenza High Dose Unknown Completed [facility] TD Pres-Free Unknown Completed [facility] Influenza Virus Vaccine Quad IM 3+ YRS Unknown Completed [facility] Influenza Virus Vaccine Quad ID 18-64 YRS Unknown Completed [facility] Influenza Virus Vaccine Unknown Completed [facility] Influenza Virus Vaccine Quad IM, Preserv and ABX Free 6 MO-64 YRS (FLUCELVAX) Unknown Completed [facility] HPV9 Unknown Completed [facility] Influenza High Dose Unknown Completed [facility] TD Pres-Free Unknown Completed [facility] Influenza Virus Vaccine Quad IM 3+ YRS Unknown Completed [facility] Influenza Virus Vaccine Quad ID 18-64 YRS Unknown Completed [facility] Influenza Virus Vaccine Unknown Completed [facility] Influenza Virus Vaccine Quad IM, Preserv and ABX Free 6 MO-64 YRS (FLUCELVAX) Unknown Completed [facility] HPV9 Unknown Completed [facility] Influenza High Dose Unknown Completed [facility] TD Pres-Free Unknown Completed [facility] Influenza Virus Vaccine Quad IM 3+ YRS Unknown Completed [facility] Influenza Virus Vaccine Quad ID 18-64 YRS Unknown Completed [facility] Influenza Virus Vaccine Unknown Completed [facility] Influenza Virus Vaccine Quad IM, Preserv and ABX Free 6 MO-64 YRS (FLUCELVAX) Unknown Completed [facility] HPV9 Unknown Completed [facility] Influenza High Dose Unknown Completed [facility] TD Pres-Free Unknown Completed [facility] Influenza Virus Vaccine Quad IM 3+ YRS Unknown Completed [facility] Influenza Virus Vaccine Quad ID 18-64 YRS Unknown Completed [facility] Influenza Virus Vaccine Unknown Completed [facility] Influenza Virus Vaccine Quad IM, Preserv and ABX Free 6 MO-64 YRS (FLUCELVAX) Unknown Completed [facility] HPV9 Unknown Completed [facility] Influenza High Dose Unknown Completed [facility] TD Pres-Free Unknown Completed [facility] Influenza Virus Vaccine Quad IM 3+ YRS Unknown Completed [facility] Influenza Virus Vaccine Quad ID 18-64 YRS Unknown Completed [facility] Influenza Virus Vaccine Unknown Completed [facility] Influenza Virus Vaccine Quad IM, Preserv and ABX Free 6 MO-64 YRS (FLUCELVAX) Unknown Completed [facility] HPV9 Unknown Completed [facility] Influenza High Dose Unknown Completed [facility] TD Pres-Free Unknown Completed [facility] Influenza Virus Vaccine Quad IM 3+ YRS Unknown Completed [facility] Influenza Virus Vaccine Quad ID 18-64 YRS Unknown Completed [facility] Influenza Virus Vaccine Unknown Completed [facility] Influenza Virus Vaccine Quad IM, Preserv and ABX Free 6 MO-64 YRS (FLUCELVAX) Unknown Completed [facility] HPV9 Unknown Completed [facility] Influenza High Dose Unknown Completed [facility] TD Pres-Free Unknown Completed [facility] Influenza Virus Vaccine Quad IM 3+ YRS Unknown Completed [facility] Influenza Virus Vaccine Quad ID 18-64 YRS Unknown Completed [facility] Influenza Virus Vaccine Unknown Completed [facility] Influenza Virus Vaccine Quad IM, Preserv and ABX Free 6 MO-64 YRS (FLUCELVAX) Unknown Completed [facility] HPV9 Unknown Completed [facility] Influenza, High-Dose, Trivalent, PF (FLUZONE) Unknown Completed [facility] TD Pres-Free Unknown Completed [facility] Afluria Afluria Unknown Com[facility] Afluria Afluria Unknown Completed [facility] Afluria Afluria Unknown Completed [facility] Afluria Afluria Unknown Completed [facility] Afluria Afluria Unknown Completed [facility] Afluria Afluria Unknown Com[facility] Afluria Afluria Unknown Com[facility] Afluria Afluria Unknown Com[facility] Afluria Afluria Unknown Completed [facility] Afluria Afluria Unknown Completed [facility] Afluria Afluria Unknown Completed [facility] Afluria Afluria Unknown Completed [facility] Afluria Afluria Unknown Completed [facility] Afluria Afluria Unknown Com[facility] Afluria Afluria Unknown Com[facility] Afluria [facility]fluria Unknown Com[facility] Afluria Afluria Unknown Completed [facility] Afluria Afluria Unknown Completed [facility] Vital Signs Vital Name Observation Time Observation Value Comments S ource Systolic blood pressure 2024-03-31 00:32:00 130 mm[Hg] [facility] Diastolic blood pressure 2024-03-31 00:32:00 104 mm[Hg] [facility] Heart rate 2024-03-31 00:32:00 125 [facility] Body temperature 2024-03-31 00:32:00 36.72 Purvi [facility] Respiratory rate 2024-03-31 00:32:00 16 /min [facility] Body height 2024-03-31 00:32:[address] [facility] Body weight 2024-03-31 00:32:[address] [facility] BMI 2024-03-31 00:32:00 18.79 kg/m2 [facility] Oxygen saturation in Arterial blood by Pulse oximetry 2024-03-31 00:32:00 100 /min [facility] Systolic blood pressure 2024-03-30 08:58:00 144 mm[Hg] [facility] Diastolic blood pressure 2024-03-30 08:58:00 94 mm[Hg] [facility] Heart rate 2024-03-30 08:58:00 115 /min [facility] Body temperature 2024-03-30 08:58:00 36.78 Pur[facility] Respiratory rate 2024-03-30 08:58:00 20 /min [facility] Body height 2024-03-30 08:58:[address] [facility] Body weight 2024-03-30 08:58:[address] [facility] BMI 2024-03-30 08:58:00 18.79 kg/m2 [facility] Oxygen saturation in Arterial blood by Pulse oximetry 2024-03-30 08:58:00 100 /min [facility] Systolic blood pressure 2024-02-05 18:15:00 124 mm[Hg] [facility] Diastolic blood pressure 2024-02-05 18:15:00 85 mm[Hg] [facility] Heart rate 2024-02-05 18:15:00 93 /min [facility] height 2024-02-05 18:15:00 170.2 cm [facility] Body weight 2024-02-05 18:15:[address] [facility] BMI 2024-02-05 18:15:00 19.59 kg/m2 [facility] Systolic blood pressure 2024 21:08:00 114 mm[Hg] [facility] Diastolic blood pressure 2024 21:08:00 85 mm[Hg] [facility] Heart rate 2024 21:08:00 98 /min [facility] Body temperature 2024 21:08:00 36.56 [facility] Respiratory rate 2024 21:08:00 18 /min [facility] Oxygen saturation in Arterial blood by Pulse oximetry 2024 21:08:00 100 /min [facility] Body height 2024 19:22:00 170.2 cm [facility] Body weight 2024 19:22:00 54.432 kg [facility] BMI 2024 19:22:00 18.79 kg/m2 [facility] Body height 2024-01-23 16:10:00 170.2 cm [facility] Body weight 2024-01-23 16:10:00 54.84 kg [facility] BMI 2024-01-23 16:10:00 18.94 kg/m2 [facility] Body height 2024-01-03 15:39:00 170.2 cm [facility] Body weight 2024-01-03 15:39:[address] BMI 2024-01-03 15:39:00 19.33 kg/m2 [facility] Body weight 2023-12-28 01:00:[address] [facility] BMI 2023-12-28 01:00:00 18.79 kg/m2 [facility] Systolic blood pressure 2023-12-27 23:55:00 113 mm[Hg] [facility] Diastolic blood pressure 2023-12-27 23:55:00 80 mm[Hg] [facility] Heart rate 2023-12-27 23:55:00 92 /min [facility] Respiratory rate 2023-12-27 23:55:00 18 /min [facility] Oxygen saturation in Arterial blood by Pulse oximetry 2023-12-27 23:55:00 100 /min [facility] Body temperature 2023-12-27 20:34:00 37.17 [facility] Systolic blood pressure 2023-12-16 11:22:00 109 mm[Hg] [facility] Diastolic blood pressure 2023-12-16 11:22:00 77 mm[Hg] [facility] Heart rate 2023-12-16 11:22:00 110 /min [facility] Body temperature 2023-12-16 11:22:00 36.72 Pur[facility] Respiratory rate 2023-12-16 11:22:00 20 /min [facility] Body height 2023-12-16 11:22:[address] [facility] Body weight 2023-12-16 11:22:[address] [facility] BMI 2023-12-16 11:22:00 18.79 kg/m2 [facility] Oxygen saturation in Arterial blood by Pulse oximetry 2023-12-16 11:22:00 100 /min [facility] Systolic blood pressure 2023-12-08 22:00:00 122 mm[Hg] [facility] Diastolic blood pressure 2023-12-08 22:00:00 80 mm[Hg] [facility] Heart rate 2023-12-08 22:00:00 130 /min [facility] Body temperature 2023-12-08 22:00:00 36.67 [facility] Respiratory rate 2023-12-08 22:00:00 18 /min [facility] Oxygen saturation in Arterial blood by Pulse oximetry 2023-12-08 22:00:00 100 /min [facility] Body height 2023-12-08 19:10:[address] [facility] Body weight 2023-12-08 19:10:[address] [facility] BMI 2023-12-08 19:10:00 18.32 kg/m2 [facility] Systolic blood pressure 2023-12-06 10:00:00 112 mm[Hg] [facility] Diastolic blood pressure 2023-12-06 10:00:00 78 mm[Hg] [facility] Heart rate 2023-12-06 09:21:07 116 /min [facility] Respiratory rate 2023-12-06 09:21:07 20 /min [facility] Oxygen saturation in Arterial blood by Pulse oximetry 2023-12-06 09:21:07 100 /min [facility] Body temperature 2023-12-06 01:47:00 36.67 Pur[facility] Body height 2023-12-06 01:47:[address] [facility] Body weight 2023-12-06 01:47:[address] [facility] BMI 2023-12-06 01:47:00 18.32 kg/m2 [facility] Systolic blood pressure 2023-12-05 05:00:00 114 mm[Hg] [facility] Diastolic blood pressure 2023-12-05 05:00:00 83 mm[Hg] [facility] Heart rate 2023-12-05 05:00:00 116 /min [facility] Respiratory rate 2023-12-05 05:00:00 20 /min [facility] Oxygen saturation in Arterial blood by Pulse oximetry 2023-12-05 05:00:00 96 /min [facility] Body temperature 2023-12-05 02:52:00 36.94 [facility] Body height 2023-12-05 02:52:[address] [facility] Body weight 2023-12-05 02:52:[address] [facility] BMI 2023-12-05 02:52:00 18.34 kg/m2 [facility] Systolic blood pressure 2023-11-22 21:46:12 99 mm[Hg] [facility] Diastolic blood pressure 2023-11-22 21:46:12 57 mm[Hg] [facility] Heart rate 2023-11-22 21:46:12 99 /min [facility] Body temperature 2023-11-22 21:46:12 37.17 [facility] Respiratory rate 2023-11-22 21:46:12 16 /min [facility] Oxygen saturation in Arterial blood by Pulse oximetry 2023-11-22 21:46:12 97 /min [facility] Body height 2023-11-22 17:01:[address] [facility] Body weight 2023-11-22 17:01:[address] [facility] BMI 2023-11-22 17:01:00 18.32 kg/m2 [facility] Systolic blood pressure 2023-11-10 06:38:05 124 mm[Hg] [facility] Diastolic blood pressure 2023-11-10 06:38:05 99 mm[Hg] [facility] Heart rate 2023-11-10 06:38:05 99 /min [facility] Body temperature 2023-11-10 06:38:05 36.67 [facility] Respiratory rate 2023-11-10 06:38:05 16 /min [facility] Oxygen saturation in Arterial blood by Pulse oximetry 2023-11-10 06:38:05 99 /min [facility] Body height 2023-11-10 03:34:00 170.2 cm [facility] Body weight 2023-11-10 03:34:00 47.628 kg [facility] BMI 2023-11-10 03:34:00 16.45 kg/m2 [facility] Systolic blood pressure 2023-11-09 12:26:00 119 mm[Hg] [facility] Diastolic blood pressure 2023-11-09 12:26:00 84 mm[Hg] [facility] Heart rate 2023-11-09 12:26:00 103 /min [facility] Body temperature 2023-11-09 12:26:00 36.89 [facility] Respiratory rate 2023-11-09 12:26:00 20 /min [facility] Oxygen saturation in Arterial blood by Pulse oximetry 2023-11-09 12:26:00 100 /min [facility] Body weight 2023-11-09 08:29:[address] [facility] BMI 2023-11-09 08:29:00 18.47 kg/m2 [facility] Body height 2023-11-06 21:32:00 170.2 cm [facility] Systolic blood pressure 2023-10-28 17:30:00 104 mm[Hg] [facility] Diastolic blood pressure 2023-10-28 17:30:00 78 mm[Hg] [facility] Heart rate 2023-10-28 17:30:00 112 /min [facility] [facility] Body temperature 2023-10-28 17:30:00 37.06 [facility] Respiratory rate 2023-10-28 17:30:00 20 /min [facility] Oxygen saturation in Arterial blood by Pulse oximetry 2023-10-28 17:30:00 99 /min [facility] Body height 2023-10-28 03:09:00 170.2 cm [facility] Body weight 2023-10-28 03:09:00 52.164 kg [facility] BMI 2023-10-28 03:09:00 18.01 kg/m2 [facility] Systolic blood pressure 2023-10-19 16:14:00 120 mm[Hg] [facility] Diastolic blood pressure 2023-10-19 16:14:00 87 mm[Hg] [facility] Heart rate 2023-10-19 16:14:00 98 /min [facility] Body temperature 2023-10-19 16:14:00 37.67 [facility] Respiratory rate 2023-10-19 16:14:00 18 /min [facility] Oxygen saturation in Arterial blood by Pulse oximetry 2023-10-19 16:14:00 98 /min [facility] Body height 2023-10-19 15:44:[address] [facility] Body weight 2023-10-19 15:44:[address] [facility] BMI 2023-10-19 15:44:00 18.01 kg/m2 [facility] Systolic blood pressure 2023-10-19 00:36:06 120 mm[Hg] [facility] Diastolic blood pressure 2023-10-19 00:36:06 89 mm[Hg] [facility] Heart rate 2023-10-19 00:36:06 129 [facility] Respiratory rate 2023-10-19 00:36:06 15 /min [facility] Oxygen saturation in Arterial blood by Pulse oximetry 2023-10-19 00:36:06 96 /min [facility] Body temperature 2023-10-19 00:32:00 37.11 [facility] Body height 2023-10-19 00:32:00 170.2 cm [facility] Body weight 2023-10-19 00:32:[address] [facility] BMI 2023-10-19 00:32:00 18.01 kg/m2 [facility] Systolic blood pressure 2023-09-21 16:40:00 125 mm[Hg] [facility] Diastolic blood pressure 2023-09-21 16:40:00 89 mm[Hg] [facility] Heart rate 2023-09-21 16:40:00 92 /min [facility] Body temperature 2023-09-21 16:40:00 36.11 [facility] Respiratory rate 2023-09-21 16:40:00 19 /min [facility] Oxygen saturation in Arterial blood by Pulse oximetry 2023-09-21 16:40:00 98 /min [facility] Body weight 2023-09-21 07:35:[address] [facility] BMI 2023-09-21 07:35:00 18.29 kg/m2 [facility] Body height 2023-09-19 16:50:[address] [facility] Systolic blood pressure 2023-09-15 18:00:00 136 mm[Hg] [facility] Diastolic blood pressure 2023-09-15 18:00:00 95 mm[Hg] [facility] Heart rate 2023-09-15 18:00:00 94 /min Un[facility] Body temperature 2023-09-15 18:00:00 36.83 [facility] Respiratory rate 2023-09-15 18:00:00 10 /min [facility] Oxygen saturation in Arterial blood by Pulse oximetry 2023-09-15 18:00:00 97 /min [facility] Body height 2023-09-15 16:25:[address] [facility] Body weight 2023-09-15 16:25:[address] [facility] BMI 2023-09-15 16:25:00 18.48 kg/m2 [facility] Systolic blood pressure 2023-09-14 00:00:00 120 mm[Hg] [facility] Diastolic blood pressure 2023-09-14 00:00:00 90 mm[Hg] [facility] Heart rate 2023-09-14 00:00:00 115 /min [facility] Body temperature 2023-09-14 00:00:00 37.06 Pur[facility] Oxygen saturation in Arterial blood by Pulse oximetry 2023-09-14 00:00:00 98 /min [facility] Respiratory rate 2023-09-13 23:03:00 16 /min [facility] Body height 2023-09-13 23:03:[address] [facility] Body weight 2023-09-13 23:03:[address] [facility] BMI 2023-09-13 23:03:00 18.48 kg/m2 [facility] height 2023-06-11 10:30:00 67 [in_i] Commo n [facility] weight 2023-06-11 10:30:00 110 [lb_av] Comm on [facility] bmi 2023-06-11 10:30:00 17.23 kg/m2 Comm on [facility] Systolic blood pressure 2023-04-30 20:12:00 129 mm[Hg] [facility] Diastolic blood pressure 2023-04-30 20:12:00 87 mm[Hg] [facility] Heart rate 2023-04-30 20:12:00 118 /min [facility] Body temperature 2023-04-30 20:12:00 36.72 Uprvi [facility] Respiratory rate 2023-04-30 20:12:00 14 /min [facility] Body weight 2023-04-30 20:12:[address] [facility] BMI 2023-04-30 20:12:00 16.92 kg/m2 [facility] Oxygen saturation in Arterial blood by Pulse oximetry 2023-04-30 20:12:00 100 /min [facility] Systolic blood pressure 2023-04-27 15:00:00 114 mm[Hg] [facility] Diastolic blood pressure 2023-04-27 15:00:00 86 mm[Hg] [facility] Heart rate 2023-04-27 15:00:00 105 /min [facility] Oxygen saturation in Arterial blood by Pulse oximetry 2023-04-27 15:00:00 99 /min [facility] Respiratory rate 2023-04-27 12:00:00 18 /min [facility] Body temperature 2023-04-27 10:00:00 36 Pur[facility] Body weight 2023-04-27 10:00:[address] [facility] BMI 2023-04-27 10:00:00 17.09 kg/m2 [facility] Body height 2023-04-24 21:18:[address] [facility] height 2023-03-06 13:10:00 67 [in_i] Commo n [facility] weight 2023-03-06 13:10:00 110 [lb_av] Comm on [facility] bmi 2023-03-06 13:10:00 17.23 kg/m2 Comm on [facility] blood pressure systolic 2023-03-06 13:10:00 129 mm[Hg] [facility] blood pressure diastolic 2023-03-06 13:10:00 84 mm[Hg] [facility] height 2023-01-04 09:20:00 67 [in_i] Commo n [facility] weight 2023-01-04 09:20:00 110 [lb_av] Comm on [facility] bmi 2023-01-04 09:20:00 17.23 kg/m2 Comm on [facility] blood pressure systolic 2023-01-04 09:20:00 123 mm[Hg] Common [facility] blood pressure diastolic 2023-01-04 09:20:00 70 mm[Hg] [facility] Systolic blood pressure 2022-12-12 14:09:00 135 mm[Hg] [facility] Diastolic blood pressure 2022-12-12 14:09:00 89 mm[Hg] [facility] Heart rate 2022-12-12 14:08:00 123 /min [facility] Body temperature 2022-12-12 14:08:00 36.83 Pur[facility] Respiratory rate 2022-12-12 14:08:00 14 /min [facility] Body weight 2022-12-12 14:08:[address] [facility] BMI 2022-12-12 14:08:00 16.76 kg/m2 [facility] Oxygen saturation in Arterial blood by Pulse oximetry 2022-12-12 14:08:00 99 /min [facility] Systolic blood pressure 2022-11-13 20:53:00 121 mm[Hg] [facility] Diastolic blood pressure 2022-11-13 20:53:00 83 mm[Hg] [facility] Heart rate 2022-11-13 20:53:00 108 /min Un[facility] Body temperature 2022-11-13 20:53:00 37.06 Pur[facility] Respiratory rate 2022-11-13 20:53:00 18 /min [facility] Oxygen saturation in Arterial blood by Pulse oximetry 2022-11-13 20:53:00 100 /min [facility] Body height 2022-11-11 01:42:[address] [facility] Body weight 2022-11-11 01:42:[address] [facility] BMI 2022-11-11 01:42:00 16.29 kg/m2 [facility] Systolic blood pressure 2022-11-07 16:10:00 146 mm[Hg] [facility] Diastolic blood pressure 2022-11-07 16:10:00 89 mm[Hg] [facility] Heart rate 2022-11-07 16:10:00 96 /min Un[facility] Body temperature 2022-11-07 16:10:00 36.39 [facility] Respiratory rate 2022-11-07 16:10:00 16 /min [facility] Oxygen saturation in Arterial blood by Pulse oximetry 2022-11-07 16:10:00 98 /min [facility] Body weight 2022-11-07 08:47:[address] [facility] BMI 2022-11-07 08:47:00 16.92 kg/m2 [facility] Body height 2022-11-06 11:23:[address] [facility] height 2022-10-30 16:50:00 67 [in_i] Commo n [facility] weight 2022-10-30 16:50:00 99 [lb_av] Commo n [facility] bmi 2022-10-30 16:50:00 15.5 kg/m2 Commo n [facility] blood pressure systolic 2022-10-30 16:50:00 121 mm[Hg] Common [facility] blood pressure diastolic 2022-10-30 16:50:00 70 mm[Hg] [facility] Systolic blood pressure 2022-08-28 01:39:00 125 mm[Hg] [facility] Diastolic blood pressure 2022-08-28 01:39:00 96 mm[Hg] [facility] Heart rate 2022-08-28 01:39:00 95 /min [facility] Body temperature 2022-08-28 01:39:00 36.5 [facility] Respiratory rate 2022-08-28 01:39:00 16 /min [facility] Body height 2022-08-28 01:39:[address] [facility] Body weight 2022-08-28 01:39:[address] [facility] BMI 2022-08-28 01:39:00 16.45 kg/m2 [facility] Oxygen saturation in Arterial blood by Pulse oximetry 2022-08-28 01:39:00 100 /min [facility] height 2022-07-31 16:20:00 67 [in_i] Commo n [facility] weight 2022-07-31 16:20:00 98 [lb_av] [facility] n [facility] bmi 2022-07-31 16:20:00 15.35 kg/m2 Comm on [facility] blood pressure systolic 2022-07-31 16:20:00 120 mm[Hg] [facility] blood pressure diastolic 2022-07-31 16:20:00 74 mm[Hg] [facility] height 2022-06-01 08:50:00 67 [in_i] Commo n [facility] weight 2022-06-01 08:50:00 96.9 [lb_av] Com [facility] temperature 2022-06-01 08:50:00 96.8 [degF] Com [facility] bmi 2022-06-01 08:50:00 15.18 kg/m2 Comm on [facility] oximetry 2022-06-01 08:50:00 99 % Commo n [facility] respiratory rate 2022-06-01 08:50:00 18 /min [facility] blood pressure systolic 2022-06-01 08:50:00 118 mm[Hg] [facility] blood pressure diastolic 2022-06-01 08:50:00 77 mm[Hg] [facility] Systolic blood pressure 2022-04-13 01:48:00 138 mm[Hg] [facility] Diastolic blood pressure 2022-04-13 01:48:00 91 mm[Hg] [facility] Heart rate 2022-04-13 01:48:00 81 /min [facility] Respiratory rate 2022-04-13 01:48:00 16 /min [facility] Oxygen saturation in Arterial blood by Pulse oximetry 2022-04-13 01:48:00 98 /min [facility] Body temperature 2022-04-12 21:03:00 36.72 Pur[facility] Body weight 2022-04-12 21:03:[address] [facility] BMI 2022-04-12 21:03:00 15.66 kg/m2 [facility] Systolic blood pressure 2022-04-09 05:47:00 138 mm[Hg] [facility] Diastolic blood pressure 2022-04-09 05:47:00 104 mm[Hg] [facility] Heart rate 2022-04-09 05:47:00 112 /min Unive [facility] Body temperature 2022-04-09 05:47:00 36.61 [facility] Respiratory rate 2022-04-09 05:47:00 16 /min [facility] Body height 2022-04-09 05:47:[address] [facility] Body weight 2022-04-09 05:47:00 45.36 kg [facility] BMI 2022-04-09 05:47:00 15.66 kg/m2 [facility] Oxygen saturation in Arterial blood by Pulse oximetry 2022-04-09 05:47:00 100 /min [facility] Systolic blood pressure 2022-04-05 20:08:00 149 mm[Hg] [facility] Diastolic blood pressure 2022-04-05 20:08:00 114 mm[Hg] [facility] Heart rate 2022-04-05 20:08:00 108 /min [facility] Body temperature 2022-04-05 20:08:00 36.61 [facility] Respiratory rate 2022-04-05 20:08:00 16 /min [facility] Body height 2022-04-05 20:08:00 170.2 cm [facility] Body weight 2022-04-05 20:08:00 45.36 kg [facility] BMI 2022-04-05 20:08:00 15.66 kg/m2 [facility] Oxygen saturation in Arterial blood by Pulse oximetry 2022-04-05 20:08:00 100 /min [facility] height 2022-03-02 07:50:00 67 [in_i] Commo n [facility] weight 2022-03-02 07:50:00 105 [lb_av] Comm on [facility] temperature 2022-03-02 07:50:00 98 [degF] Comm on [facility] bmi 2022-03-02 07:50:00 16.44 kg/m2 Comm on [facility] blood pressure systolic 2022-03-02 07:50:00 120 mm[Hg] Common [facility] blood pressure diastolic 2022-03-02 07:50:00 76 mm[Hg] Common [facility] height 2022-01-02 11:40:00 67 [in_i] Commo n [facility] weight 2022-01-02 11:40:00 105 [lb_av] Comm on [facility] bmi 2022-01-02 11:40:00 16.44 kg/m2 Comm on [facility] blood pressure systolic 2022-01-02 11:40:00 125 mm[Hg] Common [facility] blood pressure diastolic 2022-01-02 11:40:00 76 mm[Hg] [facility] Systolic blood pressure 2021-12-04 20:56:00 124 mm[Hg] [facility] Diastolic blood pressure 2021-12-04 20:56:00 89 mm[Hg] [facility] Heart rate 2021-12-04 20:56:00 156 /min [facility] Body height 2021-12-04 20:56:[address] [facility] Body weight 2021-12-04 20:56:[address] [facility] BMI 2021-12-04 20:56:00 16.13 kg/m2 [facility] height 2021-10-17 08:00:00 67 [in_i] Commo n [facility] weight 2021-10-17 08:00:00 109 [lb_av] Comm on [facility] temperature 2021-10-17 08:00:00 98 [degF] Comm on [facility] bmi 2021-10-17 08:00:00 17.07 kg/m2 Comm on [facility] blood pressure systolic 2021-10-17 08:00:00 130 mm[Hg] Common [facility] blood pressure diastolic 2021-10-17 08:00:00 80 mm[Hg] [facility] height 2021-10-05 08:30:00 67 [in_i] Commo n [facility] weight 2021-10-05 08:30:00 109.1 [lb_av] Co mmon [facility] temperature 2021-10-05 08:30:00 97.7 [degF] Com mon [facility] bmi 2021-10-05 08:30:00 17.09 kg/m2 Comm on [facility] oximetry 2021-10-05 08:30:00 100 % Commo n [facility] respiratory rate 2021-10-05 08:30:00 18 /min Common [facility] blood pressure systolic 2021-10-05 08:30:00 137 mm[Hg] [facility] blood pressure diastolic 2021-10-05 08:30:00 89 mm[Hg] [facility] height 2021-07-13 15:00:00 67 [in_i] Commo n [facility] weight 2021-07-13 15:00:00 103.5 [lb_av] Co mmon [facility] temperature 2021-07-13 15:00:00 97.9 [degF] Com mon [facility] bmi 2021-07-13 15:00:00 16.21 kg/m2 Comm on [facility] oximetry 2021-07-13 15:00:00 100 % Commo n [facility] respiratory rate 2021-07-13 15:00:00 17 /min Common [facility] blood pressure systolic 2021-07-13 15:00:00 129 mm[Hg] [facility] blood pressure diastolic 2021-07-13 15:00:00 85 mm[Hg] [facility] height 2021-05-19 11:10:00 67 [in_i] Commo n [facility] weight 2021-05-19 11:10:00 107 [lb_av] Comm on [facility] temperature 2021-05-19 11:10:00 97.5 [degF] Com mon [facility] bmi 2021-05-19 11:10:00 16.76 kg/m2 Comm on [facility] height 2021-03-21 11:30:00 67 [in_i] Commo n [facility] weight 2021-03-21 11:30:00 107 [lb_av] Comm on [facility] temperature 2021-03-21 11:30:00 98 [degF] Comm on [facility] bmi 2021-03-21 11:30:00 16.76 kg/m2 Comm on [facility] blood pressure systolic 2021-03-21 11:30:00 125 mm[Hg] Common [facility] blood pressure diastolic 2021-03-21 11:30:00 75 mm[Hg] Common [facility] height 2021-01-09 16:40:00 67 [in_i] Commo n [facility] weight 2021-01-09 16:40:00 105 [lb_av] Comm on [facility] temperature 2021-01-09 16:40:00 98.5 [degF] Com mon [facility] bmi 2021-01-09 16:40:00 16.44 kg/m2 Comm on [facility] Procedures Procedure Date / Time Performed Performing Clinician Source ED LACERATION REPAIR 2024-03-31 03:15:23 Vincent Hernandez [facility] CT MAXILLOFACIAL/MANDIBLE WO CONTRAST 2024-03-31 01:22:29 Valeria Hernandez [facility] CT TRAUMA HEAD WO CONTRAST 2024-03-31 01:22:29 Valeria Hernandez [facility] RAPID STREP SCREEN FOR GROUP A 2024 20:21:00 Reji Johansen [facility] POCT TEST 2024 20:17:00 Reji Johansen [facility] XR WRIST 3+ VW RIGHT 2024-01-03 15:50:47 González Ross [facility] POCT TEST 2023-12-08 20:33:00 Madhuri Cabrera [facility] URINALYSIS 2023-12-08 20:04:00 [facility] URINE DRUG (IMMUNOASSAY) - COMPREHENSIVE DRUG SCREEN W/O REFLEX 2023-12-08 20:04:00 Krista Cabrera [facility] AC PANEL 21 + LACTIC ACID 2023-12-08 19:29:00 Krista Cabrera [facility] LIPASE 2023-12-08 19:21:00 [facility] MAGNESIUM 2023-12-08 19:21:00 Krista Cabrera [facility] COMP. METABOLIC PANEL ([id number]) 2023-12-08 19:21:00 Krista Cabrera [facility] ETHANOL 2023-12-08 19:21:00 Krista Cabrera [facility] CBC WITH DIFF 2023-12-08 19:21:[address] [facility] ETHANOL 2023-12-06 08:39:00 Trino Ashford [facility] COMP. METABOLIC PANEL ([id number]) 2023-12-06 02:31:00 Bashir [facility] ETHANOL 2023-12-06 02:31:00 Valeria Hernandez [facility] CBC WITH DIFF 2023-12-06 02:31:00 Valeria Hernandez [facility] POCT TEST 2023-12-05 03:09:00 Jonelle Connell [facility] TEST, URINE 2023-12-05 03:01:00 Romana Connell [facility] COMP. METABOLIC PANEL ([id number]) 2023-12-05 03:01:00 Jonelle Connell [facility] SALICYLATE 2023-12-05 03:01:00 Jonelle Connell [facility] ETHANOL 2023-12-05 03:01:00 Connell Jonelle [facility] CBC WITH DIFF 2023-12-05 03:01:00 Jonelle Connell [facility] URINALYSIS 2023-12-05 03:01:00 [facility] URINE DRUG (IMMUNOASSAY) - COMPREHENSIVE DRUG SCREEN W/O REFLEX 2023-12-05 03:01:00 Jonelle Connell [facility] CT CERVICAL SPINE WO CONTRAST 2023-11-22 18:24:35 Nba Balderas [facility] CT HEAD WO CONTRAST 2023-11-22 18:24:35 Dalton Balderas [facility] LIPASE 2023-11-22 17:12:00 Nba Balderas Un [facility] TROPONIN I 2023-11-22 17:12:00 Nba Balderas Un [facility] COMP. METABOLIC PANEL ([id number]) 2023-11-22 17:12:00 Nba Balderas [facility] TOTAL BETA HCG ASSAY 2023-11-22 17:12:00 Hany Balderas [facility] ETHANOL 2023-11-22 17:12:00 Nba Balderas Un [facility] CBC WITH DIFF 2023-11-22 17:12:00 [facility] 2023-11-22 17:12:00 Nba Balderas Un [facility] INFLUENZA A/B RSV COVID NAAT 2023-11-10 04:53:00 Alyssia Miranda [facility] POCT TEST 2023-11-10 04:25:00 Alyssia Montelongo [facility] URINALYSIS 2023-11-10 04:21:00 Alyssia Miranda [facility] URINE DRUG (IMMUNOASSAY) - COMPREHENSIVE DRUG SCREEN W/O REFLEX 2023-11-10 04:21:00 Alyssia Miranda [facility] CREATINE KINASE 2023-11-10 04:14:00 AutumnerAlyssia gardiner [facility] THYROID STIMULATING HORMONE 2023-11-10 04:14:00 Alyssia Miranda [facility] COMP. METABOLIC PANEL ([id number]) 2023-11-10 04:14:00 Alyssia Miranda Lea [facility] SALICYLATE 2023-11-10 04:14:00 AufderAlyssia gardiner Lea [facility] ETHANOL 2023-11-10 04:14:00 Alyssia Miranda [facility] CBC WITH DIFF 2023-11-10 04:14:00 Alyssia Miranda [facility] PHOSPHORUS 2023-11-09 10:12:00 Solo Devi [facility] MAGNESIUM 2023-11-09 10:12:00 Marito [facility] HEPATIC FUNCTION PANEL ([id number]) (ALB,T.PRO,BILI T,BU/BC,ALT,AST,ALK PHOS) 2023-11-09 10:12:00 Solo Devi [facility] BASIC METABOLIC PANEL (NA, K, CL, CO2, GLUCOSE, BUN, CREATININE, CA) 2023-11-09 10:12:00 Solo Devi [facility] CBC WITHOUT DIFF 2023-11-09 10:12:00 Solo Devi [facility] PHOSPHORUS 2023-11-08 20:35:00 William Castorena [facility] MAGNESIUM 2023-11-08 20:35:00 William Castorena [facility] BASIC METABOLIC PANEL (NA, K, CL, CO2, GLUCOSE, BUN, CREATININE, CA) 2023-11-08 20:35:00 William Castorena [facility] CT HEAD WO CONTRAST 2023-11-08 10:42:52 William Castorena [facility] PHOSPHORUS 2023-11-08 08:59:00 [place], [facility] MAGNESIUM 2023-11-08 08:59:00 Marito [facility] VITAMIN B12, LEVEL 2023-11-08 08:59:00 Marito [facility] FOLATE 2023-11-08 08:59:00 Marito [facility] HEPATIC FUNCTION PANEL ([id number]) (ALB,T.PRO,BILI T,BU/BC,ALT,AST,ALK PHOS) 2023-11-08 08:59:00 Marito [facility] BASIC METABOLIC PANEL (NA, K, CL, CO2, GLUCOSE, BUN, CREATININE, CA) 2023-11-08 08:59:00 Marito [facility] CBC WITHOUT DIFF 2023-11-08 08:59:00 [facility] ([id number]) (ALB,T.PRO,BILI T,BU/BC,ALT,AST,ALK PHOS) 2023-11-07 07:22:00 Marito [facility] BASIC METABOLIC PANEL (NA, K, CL, CO2, GLUCOSE, BUN, CREATININE, CA) 2023-11-07 07:22:00 Brandon [facility] CBC WITH DIFF 2023-11-07 07:22:00 Eduar Echevarria [facility] LACTIC ACID WHOLE BLOOD 2023-11-07 07:22:00 Nichole Castorena mmad [facility] PHOSPHORUS 2023-11-07 00:58:00 Eduar [facility] MAGNESIUM 2023-11-07 00:58:00 Eduar [facility] ACUTE CARE VENOUS BLOOD GAS 2023-11-07 00:57:00 Eduar Echevarria [facility] LACTIC ACID WHOLE BLOOD 2023-11-07 00:57:00 Kev Echevarria [facility] MRSA / MSSA SCREEN BY PCR, SIDRA 2023-11-06 21:48:00 Eduar Echevarria [facility] CRITICAL CARE 2023-11-06 20:43:[address] [facility] POCT TEST 2023-11-06 19:25:00 Madhuri Cabrera [facility] HB ECG ROUTINE & RHYTHM STRIP 2023-11-06 19:10:21 Krista Cabrera [facility] URINALYSIS 2023-11-06 18:51:00 Krista Cabrera [facility] URINE DRUG (IMMUNOASSAY) - COMPREHENSIVE DRUG SCREEN W/O REFLEX 2023-11-06 18:51:00 Krista Cabrera [facility] LIPASE 2023-11-06 18:43:00 Krista Cabrera [facility] MAGNESIUM 2023-11-06 18:43:00 Krista Cabrera [facility] TROPONIN I 2023-11-06 18:43:00 Krista Cabrera [facility] COMP. METABOLIC PANEL ([id number]) 2023-11-06 18:43:00 Krista Cabrera [facility] ETHANOL 2023-11-06 18:43:00 Krista Cabrera [facility] CBC WITH DIFF 2023-11-06 18:43:00 Krista Cabrera [facility] N-TERMINAL PRO-BNP 2023-11-06 18:43:00 Krista Cabrera [facility] AC PANEL 21 + LACTIC ACID 2023-11-06 18:43:00 Krista Cabrera [facility] ETHANOL 2023-10-28 16:15:00 [facility] 2023-10-28 11:09:[address] [facility] POCT TEST 2023-10-28 03:42:00 Mia Marroquin ra [facility] COMP. METABOLIC PANEL (42176) 2023-10-28 03:27:00 Clementina Marroquin [facility] SALICYLATE 2023-10-28 03:27:00 [facility] 2023-10-28 03:27:00 [facility] CBC WITH DIFF 2023-10-28 03:27:00 [facility]ina [facility] URINALYSIS 2023-10-28 03:27:00 [facility] INFLU[facility] A/B RSV COVID NAAT 2023-10-28 03:27:00 Clementina Marroquin [facility] LAB ONLY COVID INTERPRETATION 2023-10-28 03:27:00 Clementina Marroquin [facility] URINE DRUG (IMMUNOASSAY) - COMPREHENSIVE DRUG SCREEN W/O REFLEX 2023-10-28 03:27:00 Clementina Marroquin [facility] POCT GLUCOSE(AGE >30DAYS) 2023-10-19 15:53:00 Zoë Singletary [facility] POCT GLUCOSE (AUTOMATED) 2023-10-19 15:52:00 Julio Singletary [facility] BASIC METABOLIC PANEL (NA, K, CL, CO2, GLUCOSE, BUN, CREATININE, CA) 2023-09-21 08:28:00 Baldev Brgaa [facility] PHOSPHORUS 2023-09-20 09:24:00 Solo Devi [facility] LIPASE 2023-09-20 09:24:00 Santosh [facility] MAGNESIUM 2023-09-20 09:24:00 Marito [facility] HEPATIC FUNCTION PANEL (12840) (ALB,T.PRO,BILI T,BU/BC,ALT,AST,ALK PHOS) 2023-09-20 09:24:00 [facility]OLIC PANEL (NA, K, CL, CO2, GLUCOSE, BUN, CREATININE, CA) 2023-09-20 09:24[facility]FF 2023-09-20 09:24:00 Solo Devi [facility] PROTHROMBIN TIME / INR 2023-09-20 09:24:00 Santosh [facility] D-DIMER 2023-09-20 09:24:00 [facility]IV[facility] PARTIAL THRMPLAS DAKOTAH 2023-09-20 09:24:00 Edionwe, [facility] PROCALCITONIN 2023-09-20 09:24:00 Farzana Frost [facility] LACTIC ACID WHOLE BLOOD 2023-09-19 20:59:00 Jose Quintanilla [facility] COVID-19 (ID NOW RAPID TESTING) 2023-09-19 20:58:00 Jose Quintanilla [facility] LAB ONLY COVID INTERPRETATION 2023-09-19 20:58:00 Jose Quintanilla [facility] XR CHEST 1 VW 2023-09-19 17:13:[address] [facility] BLOOD CULTURE SCREEN 2023-09-19 17:06:00 Jose Quintanilla [facility] CREATINE KINASE 2023-09-19 17:06:[address] [facility] [address] [facility] 2023-09-19 17:06:00 Jose Quintanilla [facility] COMP. METABOLIC PANEL (32903) 2023-09-19 17:06:00 Jose Quintanilla [facility] CBC WITH DIFF 2023-09-19 17:06:[address] [facility] LACTIC ACID WHOLE BLOOD 2023-09-19 17:05:00 Jose Quintanilla [facility] EKG-12 LEAD 2023-09-19 16:54:[address] [facility] [address] [facility]ST PULMONARY ANGIOGRAM 2023-09-15 17:19:16 Cecile Rangel [facility] POCT TEST 2023-09-15 16:53:00 Viola Rangel [facility] TROPONIN I 2023-09-15 16:49:[address] [facility] COMP. METABOLIC PANEL ([id number]) 2023-09-15 16:49:00 Cecile Rangel [facility] CBC WITH DIFF 2023-09-15 16:49:00 Cecile Rangel [facility] D-DIMER 2023-09-15 16:49[facility] 2023-09-15 16:49:00 Juan Carlos [facility] N-TERMINAL PRO-BNP 2023-09-15 16:49:00 Ria Rangel [facility] LACTIC ACID WHOLE BLOOD 2023-09-15 16:48:00 Vivek Rangel [facility] HB ECG ROUTINE & RHYTHM STRIP 2023-09-15 16:44:45 Cecile Rangel [facility] POCT TEST 2023-09-14 00:14:00 [facility] XR CHEST 2 VW 2023-09-14 00:08:48 Ishan [facility] RAPID STREP SCREEN FOR GROUP A 2023-09-13 23:31:00 Ishan [facility] RAPID INFLUENZA A/B 2023-09-13 23:31:00 Ishan [facility] mick [facility] COVID-19 (ID NOW RAPID TESTING) 2023-09-13 23:31:00 Ishan [facility] MAGNESIUM 2023-04-27 10:01:00 William Castorena [facility] COMP. METABOLIC PANEL (33731) 2023-04-27 10:01:00 William Castorena [facility] CBC WITH DIFF 2023-04-27 10:01:00 [facility] TRANST[facility]ORAC[facility] ECHO (TTE) COMPLETE 2023-04-26 20:20:00 Eduar Echevarria [facility] LIPASE 2023-04-26 11:39:00 William Castorena [facility] MAGNESIUM 2023-04-26 11:39:00 William Castorena [facility] COMP. METABOLIC PANEL ([id number]) 2023-04-26 11:39:00 William Castorena [facility] CBC WITH DIFF 2023-04-26 11:39:00 [facility] PROTHR[facility] TIME / INR 2023-04-26 11:39:00 Nat Castorena [facility] ACTIVATED PARTIAL THRMPLAS DAKOTAH 2023-04-26 11:39:00 William Castorena [facility] URINE DRUG (IMMUNOASSAY) - COMPREHENSIVE DRUG SCREEN 2023-04-25 10:51:00 William Castorena [facility] LIPASE 2023-04-25 10:46:00 William Castorena [facility] MAGNESIUM 2023-04-25 10:46:00 William Castorena [facility] COMP. METABOLIC PANEL ([id number]) 2023-04-25 10:46:00 William Castorena [facility] CBC WITH DIFF 2023-04-25 10:46:00 [facility] PR[facility] / INR 2023-04-25 10:46:00 Nat Castornea [facility] ACTIVATED PARTIAL THRMPLAS DAKOTAH 2023-04-25 10:46:00 William Castoerna [facility] N-TERMINAL PRO-BNP 2023-04-25 10:46:00 William Castorena [facility] LACTIC ACID WHOLE BLOOD 2023-04-25 10:46:00 Nichole Castorena mmad [facility] PHOSPHORUS 2023-04-25 04:50:00 William Castorena [facility] CT ABDOMEN PELVIS W CONTRAST 2023-04-25 01:17:35 Jose Quintanilla [facility] URINALYSIS 2023-04-24 23:43:00 Jose Quintanilla [facility] POCT TEST 2023-04-24 23:41:00 Jose Quintanilla e [facility] AMMONIA, PLASMA 2023-04-24 23:32:00 [facility] ROUTINE & RHYTHM STRIP 2023-04-24 22:36:50 Jose Quintanilla [facility] LIPASE 2023-04-24 22:23:[address] [facility] MAGN[facility]IUM 2023-04-24 22:23:00 [facility] COMP. METABOLIC PANEL ([id number]) 2023-04-24 22:23:00 Jose Quintanilla [facility] ETHANOL 2023-04-24 22:23:00 [facility] CBC WITH DIFF 2023-04-24 22:23:[address] [facility] PROTHROMBIN TIME / INR 2023-04-24 22:23:00 Jose Quintanilla [facility] ACTIVATED PARTIAL THRMPLAS DAKOTAH 2023-04-24 22:23:00 Jose Quintanilla [facility] CONSENT/REFUSAL FOR DIAGNOSIS AND TREATMENT 2023-04-24 21:03:16 Doctor Unassigned, [facility] XR FOOT 3+ VW LEFT 2022-12-12 14:30:15 Page Roberson [facility] ASSIGNMENT OF BENEFITS 2022-12-12 14:03:23 Docto r Unassigned, [facility] CONSENT/REFUSAL FOR DIAGNOSIS AND TREATMENT 2022-12-12 14:03:11 Doctor Unassigned, [facility] PHOSPHORUS 2022-11-13 10:22:[address] [facility] MAGNESIUM 2022-11-13 10:22:[address] [facility] BASIC METABOLIC PANEL (NA, K, CL, CO2, GLUCOSE, BUN, CREATININE, CA) 2022-11-13 10:22:00 Johanna [facility] CBC WITHOUT DIFF 2022-11-13 10:22:00 [place], [facility] POCT GLUCOSE (AUTOMATED) 2022-11-12 23:12:00 Juan Cardoso [facility] MAGNESIUM 2022-11-12 09:47:00 Myles Santillan [facility] BASIC METABOLIC PANEL (NA, K, CL, CO2, GLUCOSE, BUN, CREATININE, CA) 2022-11-12 09:47:00 Myles Santillan [facility] CBC WITH DIFF 2022-11-12 09:47:00 Myles Santillan [facility] POCT GLUCOSE (AUTOMATED) 2022-11-11 18:34:00 Sadiq Robertson [facility] POCT GLUCOSE (AUTOMATED) 2022-11-11 17:51:00 Sadiq Robertson [facility] POCT GLUCOSE (AUTOMATED) 2022-11-11 12:16:00 Sadiq Robertson [facility] LIPASE 2022-11-11 09:43:00 Shara [facility] MAGNESIUM 2022-11-11 09:43:00 Yasir Chaney [facility] COMP. METABOLIC PANEL ([id number]) 2022-11-11 09:43:00 Isael Olmedo [facility] CBC WITH DIFF 2022-11-11 09:43:00 Isael Olmedo [facility] MRSA / MSSA SCREEN BY PCR, NARES 2022-11-11 01:32:00 Jeremy Velez [facility] LIPASE 2022-11-10 22:21:[address] [facility] FOLATE 2022-11-10 22:21:00 Shara [facility] TEST, SERUM 2022-11-10 22:21:00 Jason Judge [facility] COMP. METABOLIC PANEL (33717) 2022-11-10 22:21:00 Adelina Judge [facility] ETHANOL 2022-11-10 22:21:[address] [facility] CBC WITH DIFF 2022-11-10 22:21:00 Adelina Judge [facility] CONSENT/REFUSAL FOR DIAGNOSIS AND TREATMENT 2022-11-10 21:39:27 Doctor Unassigned, [facility] CRITICAL CARE 2022-11-10 21:38:00 Slim Topete [facility] LIPASE 2022-11-07 09:37:00 William Castorena [facility] MAGNESIUM 2022-11-07 09:37:00 William Castorena [facility] HEPATIC FUNCTION PANEL (67160) (ALB,T.PRO,BILI T,BU/BC,ALT,AST,ALK PHOS) 2022-11-07 09:37:00 William Castorena [facility] BASIC METABOLIC PANEL (NA, K, CL, CO2, GLUCOSE, BUN, CREATININE, CA) 2022-11-07 09:37:00 William Castorena [facility] LIPID PANEL ([id number])(TOTAL CHOLESTEROL, TRIGLYCERIDES, HDL) 2022-11-07 09:37:00 William Castorena [facility] CBC WITH DIFF 2022-11-07 09:37:00 [facility] / INR 2022-11-07 09:37:00 Nat Castorena [facility] ACTIVATED PARTIAL THRMPLAS DAKOTAH 2022-11-07 09:37:00 William Castorena [facility] US GALL BLADDER 2022-11-06 09:32:53 Carlos A Lopez [facility] CT ABDOMEN PELVIS W CONTRAST 2022-11-06 06:57:00 Zoë Singletary [facility] LIPASE 2022-11-06 06:32:[address] [facility] COMP. METABOLIC PANEL ([id number]) 2022-11-06 06:32:00 Zoë Singletary [facility] ETHANOL 2022-11-06 06:32:00 Carlos A Lopez [facility] CBC WITH DIFF 2022-11-06 06:32:00 Zoë Singletary [facility] URINALYSIS 2022-11-06 06:18:[address] [facility] POCT TEST 2022-11-06 06:18:00 Zoë Singletary [facility] CONSENT/REFUSAL FOR DIAGNOSIS AND TREATMENT 2022-11-06 06:01:51 Doctor Unassigned, [facility] POCT TEST 2022-08-28 02:47:00 Nick Best [facility] NOTICE OF PRIVACY PRACTICES 2022-08-28 01:31:41 Doctor Unassigned, [facility] CONSENT/REFUSAL FOR DIAGNOSIS AND TREATMENT 2022-08-28 01:30:51 Doctor Unassigned, [facility] BASIC METABOLIC PANEL (NA, K, CL, CO2, GLUCOSE, BUN, CREATININE, CA) 2022-04-13 00:10:00 Lacey Suggs [facility] CBC WITH DIFF 2022-04-13 00:10:00 Lacey Suggs [facility] CONSENT/REFUSAL FOR DIAGNOSIS AND TREATMENT 2022-04-12 21:08:37 Doctor Unassigned, [facility] CONSENT/REFUSAL FOR DIAGNOSIS AND TREATMENT 2022-04-09 05:40:38 Doctor Unassigned, [facility] BASIC METABOLIC PANEL (NA, K, CL, CO2, GLUCOSE, BUN, CREATININE, CA) 2022-04-05 22:24:00 Baldev Alarcon [facility] CBC WITH DIFF 2022-04-05 22:24:00 Baldev Alarcon [facility] CONSENT/REFUSAL FOR DIAGNOSIS AND TREATMENT 2022-04-05 19:50:28 Doctor Unassigned, [facility] Encounters Start Date/Time End Date/Time Encounter Type Admission Type Attending [facility] Care Facility Care Department Encounter ID Source 2023-03-06 08:02:00 [facility] [id number] [facility] 2023-03-05 10:16:00 [facility] [id number] [facility] 2023-03-04 11:18:00 [facility] [id number] [facility] 2022-07-27 10:23:00 [facility] [id number] [facility] 2022-06-13 14:55:45 Outpatient [facility] [id number] [facility] 2022-05-30 09:48:00 Outpatient Malagon, Liz STLMLC STLMLC [id number] [facility] 2021-11-13 13:38:00 Outpatient Malagon, Liz STLMLC STLMLC [id number] [facility] 2021-11-10 10:45:18 Outpatient CATHIE GONZALEZ [facility] [id number] [facility] 2021-11-09 09:43:50 Outpatient CATHIE GONZALEZ [facility] [id number] [facility] 2021-11-08 16:22:13 Outpatient CATHIE GONZALEZ [facility] [id number] [facility] 2021-05-17 14:17:09 Outpatient Malagon, Liz STLMLC STLMLC [id number] [facility] 2021-05-17 13:50:42 Outpatient Malagon, Liz STLMLC STLMLC [id number] [facility] 2021-05-17 13:50:27 Outpatient Malagon, Liz STLMLC STLMLC [id number] [facility] 2021-05-17 13:28:45 Outpatient Malagon, Liz STLMLC STLMLC [id number] [facility] 2021-05-17 12:51:57 Outpatient Malagon, Liz STLMLC STLMLC [id number] [facility] 2021-05-17 12:45:56 Outpatient Malagon, Liz STLMLC STLMLC [id number] [facility] 2021-05-17 12:39:56 Outpatient Malagon, Liz STLMLC STLMLC [id number] [facility] 2021-05-17 12:39:35 Outpatient Malagon, Liz STLMLC STLMLC [id number] [facility] 2021-05-17 12:38:37 Outpatient Malagon, Liz STLMLC STLMLC [id number] [facility] 2021-05-17 12:33:47 Outpatient Malagon, Liz STLMLC STLMLC [id number] [facility] 2021-05-17 12:32:33 Outpatient Malagon, Liz STLMLC STLMLC [id number] [facility] 2021-05-17 12:29:13 Outpatient Malagon, Liz STLMLC STLMLC [id number] [facility] 2021-05-17 12:25:07 Outpatient Malagon, Liz STLMLC STLMLC [id number] [facility] 2021-05-17 12:24:31 Outpatient Malagon, Liz STLMLC STLMLC [id number] [facility] 2021-05-17 12:07:53 Outpatient Malagon, Liz STLMLC STLMLC [id number] [facility] 2021-05-17 12:07:23 Outpatient Malagon, Liz STLMLC STL[facility]C [id number] [facility] 2021-05-17 11:59:39 Outpatient Malagon, Liz STLMLC STLMLC [id number] [facility] 2021-05-17 11:37:35 Outpatient Malagon, Liz STLMLC STLMLC [id number] [facility] 2021-05-17 11:16:40 Outpatient Malagon, Liz STLMLC ST[facility] [id number] [facility] 2021-05-17 11:10:01 Outpatient Malagon, Liz STLMLC ST[facility]MLC [id number] [facility] 2021-05-17 11:07:07 Outpatient Malagon, Liz STLMLC ST[facility]C [id number] [facility] 2021-05-17 10:59:13 [facility] [id number] [facility] 2021-05-17 10:57:50 [facility] [id number] [facility] 2021-02-19 19:59:15 Emergency [facility] [id number] [facility] 2021-02-19 15:25:26 Emergency [facility] [id number] [facility] 2024-03-30 18:37:00 2024-03-30 21:59:00 Emergency X VALERIA HERNANDEZ [facility] ERT [id number] [facility] 2024-03-30 18:37:00 2024-03-30 21:59:00 Emergency Valeria Hernandez [facility] .2.840.114 350.1.13.10 4.2.7.2.686 [id number] [facility] 2024-03-30 03:09:00 2024-03-30 03:49:00 Emergency CLEMENTINA VEGA SANDRA [facility] ERT [id number] [facility] 2024-03-30 03:09:00 2024-03-30 03:49:00 Emergency Clementina Marroquin [facility] .2.840.114 350.1.13.10 4.2.7.2.686 [id number] [facility] 2024-02-13 11:15:00 2024-02-13 11:15:00 Outpatient CATHIE GONZALEZ [facility] [id number] [facility] 2024-02-06 11:15:00 2024-02-06 11:15:00 Outpatient CATHIE GONZALEZ [facility] [id number] [facility] 2024-02-05 13:19:03 2024-02-05 23:59:00 Hospital Encounter Cathie Ross [facility] 1..840.114 350.1.13.10 4.2.7.2.686 [id number] [facility] 2024-02-05 13:30:00 2024-02-05 13:37:44 Outpatient R CATHIE ROSS VANDANA CATHIE [facility] [id number] [facility] 2024-02-05 13:30:00 2024-02-05 13:37:44 Office Visit Cathie Ross [facility] 1..840.114 350.1.13.10 4.2.7.2.686 [id number] [facility] 2024 14:24:00 2024 16:14:00 Emergency X REJI JOHANSEN KENT [facility] ERT [id number] [facility] 2024 14:24:00 2024 16:14:00 Emergency Reji Johansen [facility] 1..840.114 350.1.13.10 4.2.7.2.686 [id number] [facility] 2024-01-23 11:12:44 2024-01-23 23:59:00 Outpatient O ROSS, CATHIE RIBERA [facility] [id number] [facility] 2024-01-23 11:12:44 2024-01-23 23:59:00 Hospital Encounter Cathie Ross [facility] 1..840.114 350.1.13.10 4.2.7.2.686 [id number] [facility] 2024-01-23 11:15:00 2024-01-23 12:12:25 Office Visit Cathie Ross [facility] 1.2.840.114 350.1.13.10 4.2.7.2.686 [id number] [facility] 2024-01-06 16:50:10 2024-01-06 16:50:[address] [facility] [id number] [place] Sainz 2024-01-03 10:37:56 2024-01-03 23:59:00 Outpatient R CATHIE ROSS [facility] [id number] [facility] 2024-01-03 10:37:56 2024-01-03 23:59:00 Hospital Encounter Cathie [facility] 1.2.840.114 350.1.13.10 4.2.7.2.686 [id number] [facility] 2024-01-03 10:30:00 2024-01-03 11:05:38 Office Visit Cathie [facility] 1.2.840.114 350.1.13.10 4.2.7.2.686 [id number] [facility] 2023-12-27 15:35:00 2023-12-27 20:32:00 Emergency X KANDY CHAVEZ JOHNNA [facility] ERT [id number] [facility] 2023-12-27 15:35:00 2023-12-27 20:32:00 Emergency Kandy Chavez [facility] [place] 1.2.840.114 350.1.13.10 4.2.7.2.686 [id number] [facility] 2023-12-27 10:00:00 2023-12-27 10:00:00 Outpatient R CATHEI ROSS [facility] [id number] [facility] 2023-12-16 06:24:00 2023-12-16 08:37:00 Emergency X MORGAN ASHFORDCIELO RAMOSTRINO MURGUIA [facility] ERT [id number] [facility] 2023-12-16 06:24:00 2023-12-16 08:37:00 Emergency Morgan Ashfordcielo S [facility] 1..840.114 350.1.13.10 4.2.7.2.686 [id number] [facility] 2023-12-08 14:12:00 2023-12-08 17:39:00 Emergency X CABRERA KRISTA LUTZ [facility] ERT [id number] [facility] 2023-12-08 14:12:00 2023-12-08 17:39:00 Emergency Krista Cabrera [facility] .840.114 350.1.13.10 4.2.7.2.686 [id number] [facility] 2023-12-05 20:46:00 2023-12-06 09:06:00 Emergency X TYRONE ASHFORDMADELIN RAMOSTRINO MURGUIA [facility] ERT [id number] [facility] 2023-12-05 20:46:00 2023-12-06 09:06:00 Emergency RayValeria day Wakili S [facility] ..840.114 350.1.13.10 4.2.7.2.686 [id number] [facility] 2023-12-04 21:40:00 2023-12-05 01:00:00 Emergency X TYRONE ASHFORDTRINO GUAN [facility] ERT [id number] [facility] 2023-12-04 21:40:00 2023-12-05 01:00:00 Emergency Jonelle Connell Wakili S [facility] 1..840.114 350.1.13.10 4.2.7.2.686 [id number] [facility] 2023-11-22 12:02:00 2023-11-22 16:58:00 Emergency X NBA BALDERAS [facility] ERT [id number] [facility] 2023-11-22 12:02:00 2023-11-22 16:58:00 Emergency Nba Balderas [facility] 1.2840.114 350.1.13.10 4.2.7.2.686 [id number] [facility] 2023-11-11 00:00:00 2023-11-11 09:55:02 Patient Outreach Lauren Cesar 1.2840.114 350.1.13.10 4.2.7.2.686 [id number] [facility] 2023-11-09 22:30:00 2023-11-10 02:12:00 Emergency X DAO GOEL WILLIAM [facility] ERT [id number] [facility] 2023-11-09 22:30:00 2023-11-10 02:12:00 Emergency Autumnerzuleyka Alyssia William B [facility] 1.840.114 350.1.13.10 4.2.7.2.686 [id number] [facility] 2023-11-06 13:20:00 2023-11-09 11:54:00 Inpatient X SOLO DEVI [facility] JENIFFER [id number] [facility] 2023-11-06 13:20:00 2023-11-09 11:54:00 Hospital Encounter Krista Cabrera [place], Jelani [facility] 1.2840.114 350.1.13.10 4.2.7.2.686 [id number] [facility] 2023-10-27 22:09:00 2023-10-28 13:11:00 Emergency X JONELLE CONNELLDAKOTAHJONELLE [facility] ERT [id number] [facility] 2023-10-27 22:09:00 2023-10-28 13:11:00 Emergency Zoë Singletary Timothy AZMINDY [facility] 1.2.840.114 350.1.13.10 4.2.7.2.686 [id number] [facility] 2023-10-19 10:39:00 2023-10-19 11:33:00 Emergency X ZOË SINGLETARY PAMALA [facility] ERT [id number] [facility] 2023-10-19 10:39:00 2023-10-19 11:33:00 Emergency Zoë Singletary [facility] 1.2840.114 350.1.13.10 4.2.7.2.686 [id number] [facility] 2023-10-18 19:19:00 2023-10-18 21:09:00 Emergency X KRISTA CABRERA DONNELL [facility] ERT [id number] [facility] 2023-10-18 19:19:00 2023-10-18 21:09:00 Emergency RickKrista [facility] 1.2.840.114 350.1.13.10 4.2.7.2.686 [id number] [facility] 2023-09-19 11:52:00 2023-09-21 11:57:00 Inpatient X SOLO DEVI [facility] JENIFFER [id number] [facility] 2023-09-19 11:52:00 2023-09-21 11:57:00 Hospital Encounter Jose Quintanilla Jelani [facility] 1..840.114 350.1.13.10 4.2.7.2.686 [id number] [facility] 2023-09-15 11:26:00 2023-09-15 13:28:00 Emergency X CECILE RANGLE [facility] ERT [id number] [facility] 2023-09-15 11:26:00 2023-09-15 13:28:00 Emergency Cecile Rangel [facility] 1.2.840.114 350.1.13.10 4.2.7.2.686 [id number] [facility] 2023-09-13 18:06:00 2023-09-13 20:03:00 Emergency [facility] ERT [id number] [facility] 2023-09-13 18:06:00 2023-09-13 20:03:00 [facility] 1.2.840.114 350.1.13.10 4.2.7.2.686 [id number] [facility] 2023-06-21 00:00:00 2023-06-21 00:00:00 (TEL) STLMLC STLMLC [id number] [facility] 2023-06-21 00:00:00 2023-06-21 00:00:00 (TEL) STLMLC STLMLC [id number] [facility] 2023-06-11 00:00:00 2023-06-11 00:00:00 OFFICE VISIT ESTAB PT LEVEL 3 STLMLC STLMLC [id number] [facility] 2023-05-08 00:00:00 2023-05-08 00:00:00 (TEL) STLMLC STLMLC [id number] [facility] 2023-05-01 00:00:00 2023-05-01 00:00:00 [facility] 1.2.840.114 350.1.13.10 4.2.7.2.686 [id number] [facility] 2023-05-01 00:00:00 2023-05-01 00:00:00 Patient Secure Msg Doctor Unassigned, [place] [facility] 1.20.114 350.1.13.10 4.2.7.2.686 [id number] [facility] 2023-04-30 14:00:00 2023-04-30 14:30:10 Outpatient R RETA LEIJA [facility] [id number] [facility] 2023-04-30 14:00:00 2023-04-30 14:30:10 Urgent Care Reta Leija Unknown, Attending [facility] 1.114 350.1.13.10 4.2.7.2.686 [id number] [facility] 2023-04-30 00:00:00 2023-04-30 00:00:00 Transition of Care Thelma Slaughter BERUMEN SARITHA 1.114 350.1.13.10 4.2.7.2.686 [id number] [facility] 2023-04-24 15:22:00 2023-04-27 09:58:00 Inpatient X WILLIAM CASTORENA [facility] [id number] [facility] 2023-04-24 15:22:00 2023-04-27 09:58:00 Hospital Encounter Jose Quintanilla Mohammad A. [facility] 1.114 350.1.13.10 4.2.7.2.686 [id number] [facility] 2023-03-07 00:00:00 2023-03-07 00:00:00 (TEL) [facility] [id number] [facility] 2023-03-07 00:00:00 2023-03-07 00:00:00 (TEL) STLMLC STLMLC [id number] [facility] 2023-03-06 00:00:00 2023-03-06 00:00:00 OFFICE VISIT ESTAB PT LEVEL 3 STLMLC STLMLC [id number] [facility] 2023-02-06 00:00:00 2023-02-06 00:00:00 (TEL) STLMLC STLMLC [id number] [facility] 2023-01-21 00:00:00 2023-01-21 00:00:00 (TEL) STLMLC STLMLC [id number] [facility] 2023-01-12 02:25:00 2023-01-12 05:16:00 Emergency EM ArleneJacob villagomez [facility] [id number] [facility] 2023-01-04 00:00:00 2023-01-04 00:00:00 OFFICE VISIT ESTAB PT LEVEL 3 STLMLC STLMLC [id number] [facility] 2023-01-01 00:00:00 2023-01-01 00:00:00 (TEL) STLMLC STLMLC [id number] [facility] 2022-12-12 09:13:33 2022-12-12 23:59:00 Outpatient R PAGE ROBERSON [facility] [id number] [facility] 2022-12-12 09:13:33 2022-12-12 23:59:00 Hospital Encounter Page Roberson [facility] 1.2.840.114 350.1.13.10 4.2.7.2.686 [id number] [facility] 2022-12-12 09:00:00 2022-12-12 09:20:00 Urgent Care Page Roberson Unknown, Attending [facility] 1.840.114 350.1.13.10 4.2.7.2.686 [id number] [facility] 2022-12-12 00:00:00 2022-12-12 00:00:00 Orders Only Doctor Unassigned, [place] [facility] 1.840.114 350.1.13.10 4.2.7.2.686 [id number] [facility] 2022-12-12 00:00:00 2022-12-12 00:00:00 (TEL) [facility] [id number] [facility] 2022-12-06 00:00:00 2022-12-06 00:00:00 (TEL) [facility] [id number] [facility] 2022-11-14 00:00:00 2022-11-14 00:00:00 Transition of Care Thelma Slaughter 1.840.114 350.1.13.10 4.2.7.2.686 [id number] [facility] 2022-11-10 16:54:00 2022-11-13 18:24:00 Inpatient X JUAN CHAVEZ [facility] [id number] [facility] 2022-11-10 16:54:00 2022-11-13 18:24:00 Hospital Encounter Adelina Judge Shawn P Reinertson, Randal C [facility] 1.840.114 350.1.13.10 4.2.7.2.686 [id number] [facility] 2022-11-06 01:11:00 2022-11-07 14:51:00 Outpatient X EDUAR ECHEVARRIA [facility] [id number] [facility] 2022-11-06 01:11:00 2022-11-07 14:51:00 Emergency Zoë Singletary, Eduar Cisneros [facility] 1.840.114 350.1.13.10 4.2.7.2.686 [id number] [facility] 2022-10-30 00:00:00 2022-10-30 00:00:00 OFFICE VISIT ESTAB PT LEVEL 4 STLMLC STLMLC [id number] [facility] 2022-10-01 00:00:00 2022-10-01 00:00:00 (TEL) STLMLC STLMLC [id number] [facility] 2022-08-27 20:56:00 2022-08-27 22:56:00 Emergency X NICK BEST [facility] ERT [id number] [facility] 2022-08-27 20:56:00 2022-08-27 22:56:00 Emergency Nick Best [facility] 1.2.840.114 350.1.13.10 4.2.7.2.686 [id number] [facility] 2022-08-09 00:00:00 2022-08-09 00:00:00 (TEL) STLMLC STLMLC [id number] [facility] 2022-07-31 00:00:00 2022-07-31 00:00:00 OFFICE VISIT ESTAB PT LEVEL 4 STLMLC STLMLC [id number] [facility] 2022-06-01 00:00:00 2022-06-01 00:00:00 OFFICE VISIT ESTAB PT LEVEL 4 STLMLC STLMLC [id number] [facility] 2022-05-21 08:30:00 2022-05-21 08:30:00 Outpatient LIZBETH TEJEDA [facility] [id number] [facility] 2022-05-21 08:30:00 2022-05-21 08:30:00 Outpatient R EDY KIRK [facility] [id number] [facility] 2022-05-01 00:00:00 2022-05-01 00:00:00 (TEL) [facility] STLC [id number] [facility] 2022-04-24 00:00:00 2022-04-24 00:00:00 (TEL) [facility] ST[facility] [id number] [facility] 2022-04-12 15:05:00 2022-04-12 19:50:00 Emergency X Chula NAVARRETE T. [facility] ERT [id number] [facility] 2022-04-12 15:05:00 2022-04-12 19:50:00 Emergency Lacey Suggs [facility] 1.2.840.114 350.1.13.10 4.2.7.2.686 [id number] [facility] 2022-04-12 00:00:00 2022-04-12 00:00:00 Telephone Oral Surgery [facility] 1.2.840.114 350.1.13.10 4.2.7.2.686 [id number] [facility] 2022-04-08 23:47:00 2022-04-09 00:39:00 Emergency X Jose QUINTANILLA [facility] ERT [id number] [facility] 2022-04-08 23:47:00 2022-04-09 00:39:00 Emergency Jose Quintanilla [facility] 1.2.840.114 350.1.13.10 4.2.7.2.686 [id number] [facility] 2022-04-06 19:08:00 2022-04-06 22:00:00 Emergency Jian Samuel [facility] [place] [id number] [address] [facility] 2022-04-05 14:09:00 2022-04-05 17:11:00 Emergency BALDEV ROMERO [facility] ERT [id number] [facility] 2022-04-05 14:09:00 2022-04-05 17:11:00 Emergency Baldev Alarcon [facility] 1.840.114 350.1.13.10 4.2.7.2.686 [id number] [facility] 2022-03-02 00:00:00 2022-03-02 00:00:00 OFFICE VISIT ESTAB PT LEVEL 4 STLMLC STLMLC [id number] [facility] 2022-02-28 00:00:00 2022-02-28 00:00:00 (TEL) STLMLC STLMLC [id number] [facility] 2022-01-15 09:00:00 2022-01-15 09:00:00 Outpatient R [facility] [id number] [facility] 2022-01-15 09:00:00 2022-01-15 09:00:00 Outpatient R [facility] [id number] [facility] 2022-01-15 09:00:00 2022-01-15 09:00:00 Outpatient R CORTES TRAJUVENAL [facility] [id number] [facility] 2022-01-15 09:00:00 2022-01-15 09:00:00 Outpatient R [facility] [id number] [facility] 2022-01-02 00:00:00 2022-01-02 00:00:00 OFFICE VISIT ESTAB PT LEVEL 4 STLC STLMLC [id number] [facility] 2021-12-04 12:37:10 2021-12-04 23:59:00 Hospital Encounter FargoKerrie [facility] 1.840.114 350.1.13.10 4.2.7.2.686 [id number] [facility] 2021-12-04 16:00:00 2021-12-04 16:44:58 [facility] 1..840.114 350.1.13.10 4.2.7.2.686 [id number] [facility] 2021-12-04 16:00:00 2021-12-04 16:44:58 Outpatient R ALFIE KERRIE [facility] [id number] [facility] 2021-12-04 16:00:00 2021-12-04 16:00:00 Outpatient R [facility] [id number] [facility] 2021-12-04 00:00:00 2021-12-04 00:00:00 Telephone González Rossig [facility] 1..840.114 350.1.13.10 4.2.7.2.686 [id number] [facility] 2021-12-04 00:00:00 2021-12-04 00:00:00 Telephone [facility]fie Ker[facility] 1..840.114 350.1.13.10 4.2.7.2.686 [id number] [facility] 2021-11-29 15:15:00 2021-11-29 16:25:54 Office Visit Alfie Kerrie [facility] 1..840.114 350.1.13.10 4.2.7.2.686 [id number] [facility] 2021-11-29 15:15:00 2021-11-29 16:25:54 Outpatient R ALFIE KERRIE [facility] [id number] [facility] 2021-11-29 15:15:00 2021-11-29 15:15:00 Outpatient Vivek ALFIE KERRIE [facility] [id number] [facility] 2021-11-28 00:00:00 2021-11-28 00:00:00 Telephone Cathie Ross [facility] [place] 1..840.114 350.1.13.10 4.2.7.2.686 [id number] [facility] 2021-11-27 16:15:00 2021-11-27 16:15:00 Outpatient R CATHIE ROSS [facility] [id number] [facility] 2021-11-20 14:45:00 2021-11-20 15:20:56 Outpatient R CATHIE ROSS [facility] [id number] [facility] 2021-11-20 14:45:00 2021-11-20 15:20:56 Office Visit Cathie Ross [facility] 1.2.840.114 350.1.13.10 4.2.7.2.686 [id number] [facility] 2021-11-18 12:53:52 2021-11-18 23:59:00 Outpatient R JACQUELINE SHIN [facility] [id number] [facility] 2021-11-18 12:53:52 2021-11-18 23:59:00 Hospital Encounter Jacqueline Shin [facility] 1.2.840.114 350.1.13.10 4.2.7.2.686 [id number] [facility] 2021-11-18 12:40:00 2021-11-18 13:00:00 Urgent Care Jacqueline Shin Page Roberson [facility] 1.2.840.114 350.1.13.10 4.2.7.2.686 [id number] [facility] 2021-11-18 00:10:00 2021-11-18 00:42:00 Emergency X TRINO ASHFORD [facility] ERT [id number] [facility] 2021-11-18 00:10:00 2021-11-18 00:42:00 Emergency Yarima, Wakili [facility] 1.2.840.114 350.1.13.10 4.2.7.2.686 [id number] [facility] 2021-11-17 00:00:00 2021-11-17 00:00:00 Orders Only Doctor Unassigned, [place] [facility] 1.2.840.114 350.1.13.10 4.2.7.2.686 [id number] [facility] 2021-11-16 13:30:00 2021-11-16 13:44:47 Office Visit Kerrie Judge [facility]?MORISMichelle [facility] 1.2.840.114 350.1.13.10 4.2.7.2.686 [id number] [facility] 2021-11-16 13:30:00 2021-11-16 13:44:47 Outpatient R KERRIE JUDGE [facility] [id number] [facility] 2021-11-16 13:30:00 2021-11-16 13:30:00 Outpatient R KERRIE JUDGE [facility] [id number] [facility] 2021-11-15 00:00:00 2021-11-15 00:00:00 Telephone Cathie Ross [facility] 1.2.840.114 350.1.13.10 4.2.7.2.686 [id number] [facility] 2021-11-13 14:00:00 2021-11-13 14:57:00 Surgery Cathie Ross [facility] 1.2.840.114 350.1.13.10 4.2.7.2.686 [id number] [facility] 2021-11-13 11:04:00 2021-11-13 14:30:00 Outpatient R CATHIE ROSS [facility] [id number] [facility] 2021-11-13 11:04:00 2021-11-13 14:30:00 Hospital Encounter Cathie Ross [facility] 1.2.840.114 350.1.13.10 4.2.7.2.686 [id number] [facility] 2021-11-13 08:00:00 2021-11-13 09:01:53 [facility] [id number] [facility] 2021-11-13 08:00:00 2021-11-13 09:01:53 Office Visit Edy [facility] MED[facility] OFFICE BUILD[facility] 1.2.840.114 350.1.13.10 4.2.7.2.686 [id number] [facility] 2021-11-13 00:00:00 2021-11-13 00:00:00 Telephone Cathie Ross [facility] 1.2.840.114 350.1.13.10 4.2.7.2.686 [id number] [facility] 2021-11-10 10:43:14 2021-11-10 23:59:00 Hospital Encounter Cathie Ross [facility] 1.2.840.114 350.1.13.10 4.2.7.2.686 [id number] [facility] 2021-11-10 11:15:00 2021-11-10 11:30:00 Teacher Resource Visit Pob, Adc Lab Main Cathie Ross [facility] PROFESSIO NAL BUILDING 1.2.840.114 350.1.13.10 4.2.7.2.686 [id number] [facility] 2021-11-10 10:38:25 2021-11-10 10:42:00 Outpatient R VANDANA CATHIE [facility] [id number] [facility] 2021-11-10 08:30:00 2021-11-10 08:45:00 Laboratory Only Only, Adc Test Cathie Ross [facility] 1.84114 350.1.13.10 4.2.7.2.686 [id number] [facility] 2021-11-10 00:00:00 2021-11-10 00:00:00 (TEL) STLMLC STLMLC [id number] [facility] 2021-11-10 00:00:00 2021-11-10 00:00:00 Telephone Cathie Ross [facility] [place] 1.84.114 350.1.13.10 4.2.7.2.686 [id number] [facility] 2021-11-09 00:00:00 2021-11-09 00:00:00 Telephone Cathie Ross [facility] 1.84.114 350.1.13.10 4.2.7.2.686 [id number] [facility] 2021-11-09 00:00:00 2021-11-09 00:00:00 Telephone Cathie Ross [facility] [place] 1.84.114 350.1.13.10 4.2.7.2.686 [id number] [facility] 2021-11-08 15:30:00 2021-11-08 15:55:00 Outpatient R CATHIE ROSS [facility] [id number] [facility] 2021-11-08 15:30:00 2021-11-08 15:55:00 Office Visit Cathie Ross [facility] [place] 1.840.114 350.1.13.10 4.2.7.2.686 [id number] [facility] 2021-11-08 00:00:00 2021-11-08 00:00:00 Prep For Surgery Cathie Ross [facility] 1..840.114 350.1.13.10 4.2.7.2.686 [id number] [facility] 2021-11-07 00:00:00 2021-11-07 00:00:00 (TEL) STLMLC STLMLC [id number] [facility] 2021-11-03 08:00:00 2021-11-03 08:00:00 Outpatient KERRIE OLIVER [facility] [id number] [facility] 2021-10-30 14:00:00 2021-10-30 14:05:17 Outpatient Vivek ROBERSON PAGE [facility] [id number] [facility] 2021-10-30 14:00:00 2021-10-30 14:05:17 Urgent Care Consuelo Vu [facility] 1..840.114 350.1.13.10 4.2.7.2.686 [id number] [facility] 2021-10-29 13:44:17 2021-10-29 23:59:00 Outpatient R CEE JOSSJANE [facility] [id number] [facility] 2021-10-29 13:44:17 2021-10-29 23:59:00 [id number] [facility] 2021-10-29 13:44:17 2021-10-29 23:59:00 Hospital Encounter Cee [facility] 1..840.114 350.1.13.10 4.2.7.2.686 [id number] [facility] 2021-10-29 14:40:00 2021-10-29 14:40:00 [facility] Care [facility] 1.2.840.114 350.1.13.10 4.2.7.2.686 [id number] [facility] 2021-10-17 00:00:00 2021-10-17 00:00:00 OFFICE VISIT ESTAB PT LEVEL 4 STLMLC STLMLC [id number] [facility] 2021-10-05 00:00:00 2021-10-05 00:00:00 (WELLNESS) Wellness Visit STLMLC STLMLC [id number] [facility] 2021-10-03 00:00:00 2021-10-03 00:00:00 (TEL) STLMLC STLMLC [id number] [facility] 2021-10-02 00:00:00 2021-10-02 00:00:00 (TEL) STLMLC STLMLC [id number] [facility] 2021-08-14 09:30:00 2021-08-14 09:53:56 Nurse Visit Visit, Ang-Rmchp Trevon Hernandez [facility] REALTY SPECIALIST [facility] MATERNAL & CHILD [facility] 1.2.840.114 350.1.13.10 4.2.7.2.686 [id number] [facility] 2021-08-14 09:30:00 2021-08-14 09:30:00 Outpatient R [facility] [id number] [facility] 2021-08-14 09:30:00 2021-08-14 09:30:00 Outpatient R TREVON CORTES [facility] [id number] [facility] 2021-08-07 00:00:00 2021-08-07 00:00:00 (TEL) STLMLC STLMLC [id number] [facility] 2021-07-17 00:00:00 2021-07-17 00:00:00 Telephone Pratima Wu [facility] REALTY SPECIALIST [facility] MATERNAL & CHILD [facility] 1..840.114 350.1.13.10 4.2.7.2.686 [id number] [facility] 2021-07-17 00:00:00 2021-07-17 00:00:00 Orders Only Doctor Unassigned, [place] [facility] 1..840.114 350.1.13.10 4.2.7.2.686 [id number] [facility] 2021-07-13 09:15:00 2021-07-13 09:58:35 [id number] 2021-07-13 09:15:00 2021-07-13 09:58:35 Office Visit Pratima Wu [facility] REALTY SPECIALIST [facility] & CHILD [facility] 1..840.114 350.1.13.10 4.2.7.2.686 [id number] [facility] 2021-07-13 09:15:00 2021-07-13 09:58:35 Out[facility] [id number] [facility] 2021-07-13 00:00:00 2021-07-13 00:00:00 OFFICE VISIT ESTAB PT LEVEL 4 STLMLC STLMLC [id number] [facility] 2021-07-13 00:00:00 2021-07-13 00:00:00 Letter (Out) Pratima Wu [facility] REALTY SPECIALIST [facility] & CHILD [facility] 1..840.114 350.1.13.10 4.2.7.2.686 [id number] [facility] 2021-07-13 00:00:00 2021-07-13 00:00:00 Telephone Pratima Wu [facility] REALTY SPECIALIST [facility] 1.2840.114 350.1.13.10 4.2.7.2.686 [id number] [facility] 2021-07-03 01:43:00 2021-07-03 01:43:00 Outpatient GC_SWHAOMC_ Wallace_G [facility] [id number] [facility] 2021-06-14 00:00:00 2021-06-14 00:00:00 (TEL) STLMLC STLMLC [id number] [facility] 2021-06-04 14:00:00 2021-06-04 15:49:40 Outpatient COSME LOZADA [facility] [id number] [facility] 2021-06-04 14:00:00 2021-06-04 14:20:00 Urgent Care Cosme Sanchez Jessica [facility] 1.840.114 350.1.13.10 4.2.7.2.686 [id number] [facility] 2021-05-19 00:00:00 2021-05-19 00:00:00 OFFICE VISIT EST PT LEVEL 3 STLMLC STLMLC [id number] [facility] 2021-04-12 00:00:00 2021-04-12 00:00:00 Letter (Out) Zakiya Multani [facility] 1..114 350.1.13.10 4.2.7.2.686 [id number] [facility] 2021-04-11 11:15:00 2021-04-11 11:30:00 Laboratory Only Only, Ang Db Test Miley Doan [facility] 1.840.114 350.1.13.10 4.2.7.2.686 [id number] [facility] 2021-04-11 11:15:00 2021-04-11 11:15:00 Outpatient R MILEY DOAN [facility] [id number] [facility] 2021-04-11 00:00:00 2021-04-11 00:00:00 Orders Only Doctor Unassigned, [place] [facility] 1.114 350.1.13.10 4.2.7.2.686 [id number] [facility] 2021-04-08 00:00:00 2021-04-08 00:00:00 Patient Secure Msg Doctor Unassigned, [place] [facility] 1.114 350.1.13.10 4.2.7.2.686 [id number] [facility] 2021-03-21 00:00:00 2021-03-21 00:00:00 OFFICE VISIT ESTAB PT LEVEL 4 [facility] [id number] [facility] 2021-03-20 00:00:00 2021-03-20 00:00:00 (TEL) [facility] [id number] [facility] 2021-03-17 00:00:00 2021-03-17 00:00:00 Telephone Jeovany Purvis [facility] ..114 350.1.13.10 4.2.7.2.686 [id number] [facility] 2021-03-13 00:00:00 2021-03-13 00:00:00 Telephone YanivMaci rosales-Rehma mick [facility] 1..114 350.1.13.10 4.2.7.2.686 [id number] [facility] 2021-03-08 00:00:00 2021-03-08 00:00:00 Transition of Care Tiff Funes 1..114 350.1.13.10 4.2.7.2.686 [id number] [facility] 2021-03-04 20:45:00 2021-03-07 17:42:00 Inpatient X CHAD MORAN [facility] [id number] [facility] 2021-03-04 20:45:00 2021-03-07 17:42:00 Hospital Encounter Morarmida, Dallas Moran, Chad Collins, Marisabel [facility] 1..840.114 350.1.13.10 4.2.7.2.686 [id number] [facility] 2021-03-04 20:45:00 2021-03-07 17:42:00 Inpatient X CHAD MORAN [facility] [id number] [facility] 2021-03-04 11:26:00 2021-03-04 12:01:00 Emergency X CLEMENTINA MARROQUIN [facility] [id number] [facility] 2021-03-04 11:26:00 2021-03-04 12:01:00 Emergency Clementina Marroquin [facility] 1..840.114 350.1.13.10 4.2.7.2.686 [id number] [facility] 2021-02-28 23:10:00 2021-03-03 12:00:00 Outpatient X SOLO DEVI [facility] [id number] [facility] 2021-02-28 23:10:00 2021-03-03 12:00:00 [facility] 1..840.114 350.1.13.10 4.2.7.2.686 [id number] [facility] 2021-02-28 23:10:00 2021-03-03 12:00:00 [facility] [id number] 2021-02-28 00:00:00 2021-02-28 00:00:00 (TEL) STLMLC STLMLC [id number] [facility] 2021-01-09 00:00:00 2021-01-09 00:00:00 OFFICE VISIT ESTAB PT LEVEL 4 STLMLC STLMLC [id number] [facility] 2020-11-10 00:00:00 2020-11-10 00:00:00 Outpatient STLMLC STLMLC [id number] [facility] 2020-10-11 00:00:00 2020-10-11 00:00:00 Outpatient STLMLC STLMLC [id number] [facility] 2020-08-18 00:00:00 2020-08-18 00:00:00 Transition of Care [facility] [address] 1.2.840.114 350.1.13.10 4.2.7.2.686 [id number] [facility] 2020-07-29 00:00:00 2020-07-29 00:00:00 Outpatient STLMLC STLMLC [id number] [facility] 2020-07-18 00:00:00 2020-07-18 00:00:00 Outpatient STLMLC STLMLC [id number] [facility] 2020-07-06 00:00:00 2020-07-06 00:00:00 Outpatient STLMLC STLMLC [id number] [facility] 2020-06-29 00:00:00 2020-06-29 00:00:00 Outpatient STLMLC STLMLC [id number] [facility] 2020-06-23 00:00:00 2020-06-23 00:00:00 Outpatient STLMLC STLMLC [id number] [facility] 2020-06-03 00:00:00 2020-06-03 00:00:00 Outpatient STLMLC STLMLC [id number] [facility] 2020-05-27 00:00:00 2020-05-27 00:00:00 Outpatient STLMLC STLMLC [id number] [facility] 2020-05-11 00:00:00 2020-05-11 00:00:00 Outpatient STLMLC STLMLC [id number] [facility] 2020-04-25 00:00:00 2020-04-25 00:00:00 Outpatient STLMLC STLMLC [id number] [facility] 2020-03-15 00:00:00 2020-03-15 00:00:00 Outpatient STLMLC STLMLC [id number] [facility] 2020-03-14 00:00:00 2020-03-14 00:00:00 Outpatient STLMLC STLMLC [id number] [facility] 2020-03-07 00:00:00 2020-03-07 00:00:00 Outpatient STLMLC STLMLC [id number] [facility] 2020-03-03 17:00:00 2020-03-03 17:00:00 Outpatient R [facility] [id number] [facility] 2020-03-03 14:36:05 2020-03-03 15:04:47 Urgent Care Provider, [facility] Kelly Perez [facility] [address] [facility] 1.2.840.114 350.1.13.10 4.2.7.2.686 [id number] [facility] 2020-03-03 14:36:05 2020-03-03 15:04:47 Urgent Care Provider, [facility] .2.840.114 350.1.13.10 4.2.7.2.686 [id number] 2020-03-02 00:00:00 2020-03-02 00:00:00 Outpatient STLMLC STLMLC [id number] [facility] 2020-02-29 00:00:00 2020-02-29 00:00:00 Outpatient STLMLC [facility]C [id number] [facility] 2020-02-17 00:00:00 2020-02-17 00:00:00 Outpatient STLMLC ST[facility]C [id number] [facility] 2020-02-16 00:00:00 2020-02-16 00:00:00 Outpatient STLMLC STL[facility]C [id number] [facility] 2020-01-18 00:00:00 2020-01-18 00:00:00 Outpatient STLMLC ST[facility]MLC [id number] [facility] 2019-12-08 16:40:00 2019-12-08 16:40:00 Outpatient KARINA MAGAÑA [facility] [id number] [facility] 2019-12-07 14:00:00 2019-12-07 14:00:[address] [facility] [id number] [facility] 2019-12-07 11:54:00 2019-12-07 11:54:00 [address] [facility] [id number] [facility] 2019-12-03 13:00:00 2019-12-03 13:00:00 [facility] [id number] [facility] 2019-12-03 08:34:00 2019-12-03 08:34:00 [facility] [id number] [facility] 2019-12-02 08:44:00 2019-12-02 08:44:[address] [facility] [facility] [id number] [facility] 2019-12-01 13:53:00 2019-12-01 13:53:00 [facility] [id number] [facility] 2019-11-26 14:00:00 2019-11-26 14:00:00 [facility] [id number] [facility] 2019-11-24 00:00:00 2019-11-24 00:00:00 Refill Jennifer Sher [facility] 1.2.840.114 350.1.13.10 4.2.7.2.686 [id number] [facility] 2019-11-24 00:00:00 2019-11-24 00:00:[facility] 1.2.840.114 350.1.13.10 4.2.7.2.686 [id number] 2019-11-18 13:45:00 2019-11-18 13:45:00 [facility] [id number] [facility] 2019-11-17 10:00:00 2019-11-17 23:59:00 Hospital Encounter [facility] 1.2.840.114 350.1.13.10 4.2.7.2.686 [id number] [facility] 2019-11-17 10:00:00 2019-11-17 23:59:00 Hospital Encounter [facility] 1.2.840.114 350.1.13.10 4.2.7.2.686 [id number] 2019-11-17 00:00:00 2019-11-17 00:00:00 Outpatient R RADIOLOGY [facility] [id number] [facility] 2019-11-17 00:00:00 2019-11-17 00:00:00 Orders Only Doctor Unassigned, [place] [facility] 1.2.840.114 350.1.13.10 4.2.7.2.686 [id number] [facility] 2019-11-17 00:00:00 2019-11-17 00:00:00 Orders Only Doctor Unassigned, [place] [facility] 1.2.840.114 350.1.13.10 4.2.7.2.686 [id number] 2019-11-16 13:15:00 2019-11-16 13:15:00 [facility] [id number] [facility] 2019-11-09 15:00:00 2019-11-09 15:00:00 Outpatient JENNIFER CARTWRIGHT [facility] [id number] [facility] 2019-10-09 11:37:00 2019-10-09 11:37:00 Outpatient [facility] [id number] [facility] 2019-10-07 11:38:03 2019-10-07 12:05:01 Urgent Care Provider, [facility] Kelly Perez [facility] 1.114 350.1.13.10 4.2.7.2.686 [id number] [facility] 2019-10-07 11:38:03 2019-10-07 12:05:01 Urgent Care Provider, [facility] 1.114 350.1.13.10 4.2.7.2.686 [id number] 2019-10-07 11:40:00 2019-10-07 11:40:00 Outpatient KELLY DAVID [facility] [id number] [facility] 2019-10-06 00:00:00 2019-10-06 00:00:00 Orders Only Doctor Unassigned, [place] [facility] 1.114 350.1.13.10 4.2.7.2.686 [id number] [facility] 2019-10-06 00:00:00 2019-10-06 00:00:00 Orders Only Doctor Unassigned, [place] [facility] 1.0.114 350.1.13.10 4.2.7.2.686 [id number] 2019-09-23 13:15:00 2019-09-23 13:15:[address] [facility] [facility] [id number] [facility] 2019-09-17 16:41:00 2019-09-17 16:41:00 [facility] [id number] [facility] 2019-07-27 10:13:00 2019-07-27 10:13:00 [facility] [id number] [facility] 2019-07-24 10:00:00 2019-07-24 10:00:00 [facility] [id number] [facility] 2019-07-06 08:54:00 2019-07-06 08:54:00 [facility] [id number] [facility] 2019-06-29 10:28:00 2019-06-29 10:28:00 [facility] [id number] [facility] 2019-06-24 14:42:00 2019-06-24 14:42:00 [facility] [id number] [facility] 2019-06-18 11:23:00 2019-06-18 11:23:00 [facility] [id number] [facility] 2019-06-18 08:19:00 2019-06-18 08:19:00 [facility] [id number] [facility] 2019-06-16 13:45:00 2019-06-16 13:45:00 [facility] [id number] [facility] 2019-06-11 13:06:23 2019-06-11 16:30:00 Emergency Alarcon, Baldev [facility] 1.2.840.114 350.1.13.10 4.2.7.2.686 [id number] [facility] 2019-06-11 13:06:23 2019-06-11 16:30:00 Emergency X BALDEV [facility]CON [facility] [id number] [facility] 2019-06-11 13:06:23 2019-06-11 16:30:00 Emergency X BALDEV ALARCON [facility] E[facility] [id number] [facility] 2019-06-11 13:06:23 2019-06-11 16:30:00 Emergency Baldev Alracon [facility] 1.2.840.114 350.1.13.10 4.2.7.2.686 [id number] 2019-06-07 15:32:13 2019-06-07 16:50:00 Emergency Sabra Sorto [facility] 1.2.840.114 350.1.13.10 4.2.7.2.686 [id number] [facility] 2019-06-07 15:32:13 2019-06-07 16:50:00 Emergency X SABRA SORTO [facility] ERT [id number] [facility] 2019-06-07 15:32:13 2019-06-07 16:50:00 Emergency X SABRA SORTO [facility] ERT [id number] [facility] 2019-06-07 15:32:13 2019-06-07 16:50:00 Emergency Sabra Sorto [facility] 1.2.840.114 350.1.13.10 4.2.7.2.686 [id number] 2019-06-07 00:00:00 2019-06-07 00:00:00 Orders Only Doctor Unassigned, [place] [facility] 1.2.840.114 350.1.13.10 4.2.7.2.686 [id number] [facility] 2019-06-07 00:00:00 2019-06-07 00:00:00 Orders Only Doctor Unassigned, [place] [facility] 1.2.840.114 350.1.13.10 4.2.7.2.686 [id number] 2019-06-02 14:30:00 2019-06-02 14:30:00 [facility] Medicine [id number] [facility] 2019-06-01 13:24:00 2019-06-01 13:24:00 [facility] [id number] [facility] 2019-05-28 18:41:42 2019-05-28 20:29:00 Emergency Surgery [facility] 1.2.840.114 350.1.13.10 4.2.7.2.686 [id number] [facility] 2019-05-28 18:41:42 2019-05-28 20:29:00 Emergency Surgery [facility] 1.2.840.114 350.1.13.10 4.2.7.2.686 [id number] 2019-05-26 15:00:00 2019-05-26 15:00:00 [facility] [id number] [facility] 2019-04-30 10:17:00 2019-04-30 10:17:00 [facility] [facility] Medicine [id number] [facility] 2019-04-30 08:15:00 2019-04-30 08:15:00 [facility] Medicine [id number] [facility] 2019-04-24 10:15:00 2019-04-24 10:15:[address] [facility] Medicine [id number] [facility] 2019-03-26 16:00:00 2019-03-26 16:00:00 [facility] Medicine [id number] [facility] 2019-02-26 09:01:00 2019-02-26 09:01:[address] [facility] Medicine [id number] [facility] 2019-02-13 15:50:00 2019-02-13 15:50:00 [facility] Medicine [id number] [facility] 2019 14:30:00 2019 14:30:00 [facility] Family [facility] Medicine [id number] [facility] 2019-01-02 17:15:03 2019-01-02 19:16:00 Emergency Surgery [facility] 1.2.840.114 350.1.13.10 4.2.7.2.686 [id number] [facility] 2019-01-02 17:15:03 2019-01-02 19:16:00 Emergency Surgery [facility] 1.2.840.114 350.1.13.10 4.2.7.2.686 [id number] 2019-01-02 00:00:00 2019-01-02 00:00:00 Orders Only Doctor Unassigned, [place] [facility] 1.2.840.114 350.1.13.10 4.2.7.2.686 [id number] [facility] 2019-01-02 00:00:00 2019-01-02 00:00:00 Orders Only Doctor Unassigned, [place] [facility] 1.2.840.114 350.1.13.10 4.2.7.2.686 [id number] 2018-12-31 14:17:00 2018-12-31 14:17:00 Outpatient [facility] [id number] [facility] 2018-12-29 09:44:07 2018-12-29 09:59:07 Office Visit Eliezer Watts [facility] [employer] 1.2.840.114 350.1.13.10 4.2.7.2.686 [id number] [facility] 2018-12-29 09:44:07 2018-12-29 09:59:07 Office Visit Eliezer Watts [facility] [employer] 1.2.840.114 350.1.13.10 4.2.7.2.686 [id number] 2018-12-29 00:00:00 2018-12-29 00:00:00 Letter (Out) Stefanie [facility] [employer] 1.2.840.114 350.1.13.10 4.2.7.2.686 [id number] [facility] 2018-12-24 16:06:07 2018-12-24 23:59:00 Hospital Encounter Radiology [facility] 1.2.840.114 350.1.13.10 4.2.7.2.686 [id number] [facility] 2018-12-24 10:45:00 2018-12-24 10:45:00 Outpatient [facility] [id number] [facility] 2018-12-24 00:00:00 2018-12-24 00:00:00 Orders Only Doctor Unassigned, [place] [facility] 1.2.840.114 350.1.13.10 4.2.7.2.686 [id number] [facility] 2018-12-09 15:05:00 2018-12-09 15:05:00 Outpatient [facility] Medicine [id number] [facility] 2018-12-08 13:15:00 2018-12-08 13:15:[address] [facility] [id number] [facility] 2018-11-26 16:19:00 2018-11-26 16:19:00 [facility] [id number] [facility] 2018-11-18 09:00:00 2018-11-18 09:00:00 [facility] [id number] [facility] 2018-11-15 13:23:07 2018-11-15 13:57:49 Urgent Care Reji Leahy, Attending [facility] 1.2.840.114 350.1.13.10 4.2.7.2.686 [id number] [facility] 2018-10-24 16:15:00 2018-10-24 16:15:[address] [facility] [facility] [id number] [facility] 2018-10-21 14:30:00 2018-10-21 14:30:00 [facility] [id number] [facility] 2018-08-22 09:30:00 2018-08-22 09:30:00 [facility] [id number] [facility] 2018-08-16 11:37:00 2018-08-16 11:37:00 [facility] [id number] [facility] 2018-08-14 08:30:00 2018-08-14 08:30:00 [facility] [id number] [facility] 2018-08-13 15:15:00 2018-08-13 15:15:00 [facility] [id number] [facility] 2018-07-23 15:00:00 2018-07-23 15:00:00 [facility] [id number] [facility] 2018-06-23 13:45:00 2018-06-23 13:45:00 [facility] [id number] [facility] 2018-06-09 11:19:00 2018-06-09 11:19:00 [facility] [id number] [facility] 2018-06-03 08:02:00 2018-06-03 08:02:00 [facility] [id number] [facility] 2018-06-02 09:30:00 2018-06-02 09:30:00 [facility] [id number] [facility] 2018-05-21 15:00:00 2018-05-21 15:00:00 [facility] [id number] [facility] 2018-05-09 08:22:00 2018-05-09 08:22:00 [facility] [id number] [facility] 2018-04-24 15:45:00 2018-04-24 15:45:00 [facility] [id number] [facility] 2018-04-04 09:15:00 2018-04-04 09:15:00 [facility] [id number] [facility] 2018-04-02 14:30:00 2018-04-02 14:30:00 [facility] [id number] [facility] 2018-01-28 13:00:00 2018-01-28 13:00:00 Outpatient [facility] Medicine [facility] Medicine [id number] [facility] Results Test Description Test Time Test Comments Results Result Comments Source CT TRAUMA HEAD WO CONTRAST 01:54:54 EXAM: CT TRAUMA HEAD WO CONTRAST, CT MAXILLOFACIAL/MANDIBLE WO CONTRAST HISTORY: 34 years-old Female; Provided indication: fall . TECHNIQUE: Axial CT of the head and face was performed. Coronal andsagittal reformatted images were generated. COMPARISON: CT head 11/22/2023; maxillofacial CT 04/11/2022 FINDINGS: HEAD: The ventricles and cerebral sulci are normal in caliber and configuration.No midline shift or pathological extra-axial fluid collection is present.The basal cisterns are unremarkable. No acute intracranial hemorrhage or significant mass effect is visualized.No parenchymal attenuation abnormality is seen. The desai-white matterdifferentiation is preserved. The mastoid air cells and paranasal air sinuses are clear. The calvariumand central skull base are unremarkable. MAXILLOFACIAL: The nasal bones and frontal processes of the maxilla are intact. Scalp hematoma is noted in the left lateral supraorbital region. Theorbits, globes and other intraorbital structures are unremarkable. The maxilla and maxillary sinus nolsaco are intact. The pterygoid plates areintact. The zygomatic arches are intact. The mandible and temporomandibular joints are intact. Scattered dentalcaries. The paranasal air sinuses and mastoid air cells are clear. The nasal septumis intact. [facility] CT Maxillofacial/m andible wo contrast 01:54:54 EXAM: CT TRAUMA HEAD WO CONTRAST, CT MAXILLOFACIAL/MANDIBLE WO CONTRAST HISTORY: 34 years-old Female; Provided indication: fall . TECHNIQUE: Axial CT of the head and face was performed. Coronal andsagittal reformatted images were generated. COMPARISON: CT head 11/22/2023; maxillofacial CT 04/11/2022 FINDINGS: HEAD: The ventricles and cerebral sulci are normal in caliber and configuration.No midline shift or pathological extra-axial fluid collection is present.The basal cisterns are unremarkable. No acute intracranial hemorrhage or significant mass effect is visualized.No parenchymal attenuation abnormality is seen. The desai-white matterdifferentiation is preserved. The mastoid air cells and paranasal air sinuses are clear. The calvariumand central skull base are unremarkable. MAXILLOFACIAL: The nasal bones and frontal processes of the maxilla are intact. Scalp hematoma is noted in the left lateral supraorbital region. Theorbits, globes and other intraorbital structures are unremarkable. The maxilla and maxillary sinus nolasco are intact. The pterygoid plates areintact. The zygomatic arches are intact. The mandible and temporomandibular joints are intact. Scattered dentalcaries. The paranasal air sinuses and mastoid air cells are clear. The nasal septumis intact. [facility] [id number] 16:05:56EXAM: XR WRIST 3+ VW RIGHT HISTORY: rt wrist fx ? COMPARISON: [id number] 20:33:00* Test Item Value Reference Range Interpretation Comme nts POCT PREG (test code = 1605) Negative On board controls acceptable with C Line (test code = 3574) Yes POCT PREG LOT # (test code = 3575) [id number] POCT PREG TEST DATE ( test code = 3576) 03/03/2025 Lab Interpretation (test cod e = 18103-8) [id number] 20:22:54* Test Item Value Reference Range Interpretation [...] 34.2 g/dL 31.6-35.1 RDW-SD (test code = 34731-1) 41.4 fL 39.0-49.9 RDW-CV (test code = 788-0) 11.9 % 12.0-15.5 L PLT (test code = 777-3) 143 166-358 L MPV (test code = 79404-6) 9.5 fL 9.5-12.9 IPF % (test code = 4992724515) 3.4 % 1.3-7.7 Platelet count measured by fluorescence method. NRBC/100 WBC (test code = 0383506619) 0.0 0.0-10.0 NRBC x10^3 (test code = 1907946425) See_Comment [Automated messa ge] The system which generated this result transmitted reference range: 10*3/?L. The reference range was not used to interpret this result as normal/abnormal. GRAN MAT (NEUT) % (test code = 770-8) 65.3 % IMM GRAN % (test code = 3425484949) 0.40 % LYMPH % (test code = 736-9) 27.2 % MONO % (test code = 5905-5) 6.2 % EOS % (test code = 713-8) 0.5 % BASO % (test code = 706-2) 0.4 % GRAN MAT x10^3(ANC) (test code = 9292740166) 4.96 10*3/uL 1.88-7.09 IMM GRAN x10^3 (test code = 2225088736) 0.03 10*3/uL 0.00-0.06 LYMPH x10^3 (test code = 731-0) 2.07 10*3/uL 1.32-3.29 MONO x10^3 (test code = 742-7) 0.47 10*3/uL 0.33-0.92 EOS x10^3 (test code = 711-2) 0.04 10*3/uL 0.03-0.39 BASO x10^3 (test code = 704-7) 0.03 10*3/uL 0.01-0.07 Lab Interpretation (test code = 02780-5) Abnormal [facility] 20:07:11 ALCOHOL<10mg/dL12/08/2023 3:07 PM [facility]<10 Skrvkcsa46-115 Toxic>100 Depression of WAXER OPERATOR>400 Fatalities ReportedHendrick Medical CenterMagnesium2024-08-18 20:07:06* Test Item Value Reference Range Interpretation Comme nts MAGNESIUM (test code = 4182702764) 1.1 mg/dL 1.7-2.4 L Lab Interpretation (test cod e = 67667-8) Abnormal [facility] CenterCOMP. METABOLIC PANEL ([id number])2023-12-08 19:58:38* Test Item Value Reference Range Interpretation Comme nts NA (test code = 5341972949) 136 mmol/L 135-145 K (test code = 9475639523) 3.5 mmol/L 3.5-5.0 CL (test code = 6302515414) 97 mmol/L 98-108 L CO2 TOTAL (test code = 3421454019) 28 mmol/L 23-31 AGAP (test code = 4314870708) 11 2-16 BUN (test code = 2302129655) 9 mg/dL 7-23 GLUCOSE (test code = 0162430098) 113 mg/dL 70-110 H CREATININE (test code = 2160-0) 0.52 mg/dL 0.50-1.04 TOTAL BILI (test code = 2940336086) 1.5 mg/dL 0.1-1.1 H CALCIUM (test code = 6537608690) 9.3 mg/dL 8.6-10.6 T PROTEIN (test code = 7703959307) 8.6 g/dL 6.3-8.2 H ALBUMIN (test code = 4686138274) 4.7 g/dL 3.5-5.0 ALK PHOS (test code = 2505129239) 138 U/L 34-122 H ALTv (test code = 1742-6) 32 U/L 5-35 AST(SGOT) (test code = 4217746155) 71 U/L 13-40 H eGFR (test code = 12370-2) 126.0 mL/min/1.73m2 CKD-EPI eGFR (2020). Assuming creatinine has been stable day-to-day for at least three months, the eGFR indicates Category G1 (>= 90 mL/min/1.73 m2) Lab Interpretation (test code = 05186-8) [facility] 19:58:18* Test Item Value Reference Range Interpretation Comme nts LIPASE (test code = 2841099470) 122 U/L 0-220 Lab Interpretation (test cod e = 16373-8) Normal [facility] CenterAC Panel 21 + Lactic [id number] 19:41:27* Test Item Value Reference Range Interpretation Comme nts PH (test code = 8566991768) 7.45 7.32-7.42 H PCO2 TONY (test code = 3533280296) 41 41-51 PO2 TONY (test code = 5654367495) 32 25-40 HCO3 TONY (test code = 4465666843) 28 24-28 AC VBE(BEAKER) (test code = 5746473947) 3.6 mEq/L THB TONY (test code = 5210466408) 12.6 g/dL 12.0-16.0 %O2HB TONY (test code = 8066493749) 61.7 % 52.0-63.0 %COHB TONY (test code = 3222977358) 0.1 % 0.0-1.5 %METHB TONY (test code = 3458829895) 0.5 % 0.4-1.5 VOL%O2 TONY (test code = 9645576003) 10.9 % 6.0-12.0 NA (test code = 7345609731) 138 mmol/L 135-145 K+ (test code = 8855454934) 3.7 mmol/L 3.5-5.0 AC CA IONZ (test code = 9709893454) 4.50 mg/dL 4.50-5.30 GLUCOSE (test code = 6810734127) 101 mg/dL 70-110 LACTIC ACID (test code = 8010331993) 1.63 mmol/L 0.50-2.20 Lab Interpretation (test cod e = 13476-4) [facility]normal [facility] CenterEthanol2024-08-16 09:16:23* Test Item Value Reference Range Interpretation Comme nts ALCOHOL (test code = 7879573075) 186 mg/dL JASMYN (test code = JASMYN) <10 Aysnjini79-522 Toxic>100 Depression of WAXER OPERATOR>400 Fatalities Reported [facility] CenterPOCT BMHO5574-10-69 03:09:00* Test Item Value Reference Range Interpretation Comme nts POCT PREG (test code = 1605) Negative On board controls acceptable with C Line (test code = 3574) Yes POCT PREG LOT # (test code = 3575) [id number] POCT PREG TEST DATE ( test code = 3576) 2025-03-03 Lab Interpretation (test cod e = 56153-4) Normal [facility] CenterTOTAL BHCG (QUANTITATIVE)2023-11-22 18:44:22 BETA HCG<2.39Non- female and male patients: <5 mIU/mL11/22/2023 1:44 PM [facility] Gestational Age ?Range (mIU/mL) 1-10 ?Weeks ?08-96296898-05 Weeks ?81255-72013308-47 Weeks ?0267-74530822-09 Weeks ?1531-482296 Biotin has been reported to cause a negative bias, interpret results relative to patient's use of biotin.[facility] TROPONIN H6525-49-87 18:34:01* Test Item Value Reference Range Interpretation Comme [facility] TROPONIN I (test code = 6794749714) 0.006 ng/mL <=0.034 JASMYN (test code = [...] of biotin. Lab Interpretation (test code = 26345-3) Normal [facility] CenterCT HEAD WO [id number] 18:28:32FULL RESULT: Examination: CT HEAD WO CONTRAST, CT CERVICAL SPINE WO CONTRAST on 41:17 PM Clinical Indication: Fell, EtOH Comparison: Head CT 11/08/2023 Technique: Noncontrast imaging was obtained through the brain and cervicalspine. Findings: The sulci and ventricles were unchanged. There is no evidence ofhemorrhage or other clearly acute or traumatic intracranial process, andthere was no skull fracture. With respect to the cervical spine, there is some straightening oflordosis, but no intrinsic bony lesion, fracture or traumatic malalignment.[facility] CenterCT CERVICAL SPINE WO CONTRAST 2023-11-22 18:28:32FULL RESULT: Examination: CT HEAD WO CONTRAST, CT CERVICAL SPINE WO CONTRAST on 41:17 PM Clinical Indication: Fell, EtOH Comparison: Head [...] no intrinsic bony lesion, fracture or traumatic malalignment.[facility] CenterD-Qemtg6642-93-04 18:25:38* Test Item Value Reference Range Interpretation Comments D-DIMER (test code = 3272525209) 0.36 See_Comment [Automated message] The system which [...] a diagnosis. Lab Interpretation (test code = 12872-7) Normal [facility] CenterETHANOL2024-08-02 18:23:36 ALCOHOL<10mg/dL11/22/2023 1:23 [facility]10 Auspgxte05-602 Toxic>100 Depression of WAXER OPERATOR>400 Fatalities ReportedHendrick Medical CenterCOM. METABOLIC PANEL (95144)2023-11-22 18:22:35* Test Item Value Reference Range Interpretation Comme nts NA (test code = 2247286708) 136 mmol/L 135-145 K (test code = 4612900507) 4.4 3.5-5.0 CL (test code = 8083982406) 100 mmol/L 98-108 CO2 TOTAL (test code = 8107945064) 24 mmol/L 23-31 AGAP (test code = 0767301973) 12 2-16 BUN (test code = 2679085701) 18 mg/dL 7-23 GLUCOSE (test code = 7841534440) 89 mg/dL 70-110 CREATININE (test code = 2160-0) 0.71 mg/dL 0.50-1.04 TOTAL BILI (test code = 1165527719) 0.8 mg/dL 0.1-1.1 CALCIUM (test code = 7294222171) 9.4 mg/dL 8.6-10.6 T PROTEIN (test code = 6283209287) 8.0 g/dL 6.3-8.2 ALBUMIN (test code = 6209428883) 4.4 g/dL 3.5-5.0 ALK PHOS (test code = 1992156298) 93 U/L 34-122 ALTv (test code = 1742-6) 32 U/L 5-35 AST(SGOT) (test code = 2619638368) 46 U/L 13-40 H eGFR (test code = 29940-6) 115.3 mL/min/1.73m2 CKD-EPI eGFR (2020). Assuming creatinine has been stable day-to-day for at least three months, the eGFR indicates Category G1 (>= 90 mL/min/1.73 m2) Lab Interpretation (test code = 79870-7) Abnormal [facility] CenterLIPASE2024-08-02 18:22:15* Test Item Value Reference Range Interpretation Comme nts LIPASE (test code = 4975328439) 75 U/L 0-220 Lab Interpretation (test cod e = 01447-5) Normal [facility] WITH FDBG6894-29-51 18:10:56* Test Item Value Reference Range Interpretation [...] 33.4 g/dL 31.6-35.1 RDW-SD (test code = 07296-8) 48.7 fL 39.0-49.9 RDW-CV (test code = 788-0) 13.1 % 12.0-15.5 PLT (test code = 777-3) 227 166-358 MPV (test code = 02348-0) 10.3 fL 9.5-12.9 NRBC/100 WBC (test code = 9295200639) 0.0 0.0-10.0 NRBC x10^3 (test code = 5446517624) See_Comment [Automated messa ge] The system which generated this result transmitted reference range: 10*3/?L. The reference range was not used to interpret this result as normal/abnormal. GRAN MAT (NEUT) % (test code = 770-8) 72.0 % IMM GRAN % (test code = 6687089774) 0.40 % LYMPH % (test code = 736-9) 13.8 % MONO % (test code = 5905-5) 12.5 % EOS % (test code = 713-8) 0.4 % BASO % (test code = 706-2) 0.9 % GRAN MAT x10^3(ANC) (test code = 6957500077) 5.35 10*3/uL 1.88-7.09 IMM GRAN x10^3 (test code = 4839124601) 0.03 10*3/uL 0.00-0.06 LYMPH x10^3 (test code = 731-0) 1.03 10*3/uL 1.32-3.29 L MONO x10^3 (test code = 742-7) 0.93 10*3/uL 0.33-0.92 H EOS x10^3 (test code = 711-2) 0.03 10*3/uL 0.03-0.39 BASO x10^3 (test code = 704-7) 0.07 10*3/uL 0.01-0.07 Lab Interpretation (test code = 93806-0) Abnormal [facility] CenterPOCT [id number] 04:25:00* Test Item Value Reference Range Interpretation Comme nts POCT PREG (test code = 1605) Negative On board controls acceptable with C Line (test code = 3574) Yes POCT PREG LOT # (test code = 3575) [id number] POCT PREG TEST DATE ( test code = 3576) 2024-08-29 Lab Interpretation (test cod e = 46825-7) Normal [facility] CenterVitamin B12, Hmhpm3458-65-64 19:32:47* Test Item Value Reference Range Interpretation Comme nts VIT B12 (test code = 2997970974) 541 pg/mL 240-930 JASMYN (test code = JASMYN) Biotin has been reported to cause a positive bias, interpret results relative to patient's use of biotin. Lab Interpretation (test code = 71343-6) Normal [facility] CenterFolate2024-07-19 19:32:47* Test Item Value Reference Range Interpretation Comme nts FOLATE SER (test code = 6287044712) 5.0 ng/mL 3.0-20.0 Biotin has been reported to cause a positive bias, interpret results relative to patient's use of biotin. Lab Interpretation (test code = 09540-7) Normal [facility] CenterCT HEAD WO [id number] 16:36:26EXAM: CT HEAD WO CONTRAST HISTORY: 33 years-old Female; Provided indication: Headache, new orworsening, neuro deficit (Age 18-49y) . History obtained from [facility]:"Patient admitted for alcohol withdrawal, now with worsening [...] mastoid aircells and visualized paranasal airsinuses are clear.[facility] CenterMagnesium2024-07-19 10:13:17* Test Item Value Reference Range Interpretation Comme nts MAGNESIUM (test code = 1128075564) 1.6 mg/dL 1.7-2.4 L Lab Interpretation (test cod e = 14006-1) Abnormal [facility] CenterBasic Metabolic Panel (NA, K, CL, CO2, GLUCOSE, BUN, CREATININE, CA)2023-11-08 10:13:02* Test Item Value Reference Range Interpretation Comme nts NA (test code = 6507406105) 135 mmol/L 135-145 K (test code = 4595011277) 3.2 mmol/L 3.5-5.0 L CL (test code = 8229802497) 98 mmol/L 98-108 CO2 TOTAL (test code = 6304967505) 29 mmol/L 23-31 AGAP (test code = 9258391608) 8 2-16 BUN (test code = 5503025417) 5 mg/dL 7-23 L GLUCOSE (test code = 2231545243) 113 mg/dL 70-110 H CREATININE (test code = 2160-0) 0.50 mg/dL 0.50-1.04 CALCIUM (test code = 6127389561) 8.9 mg/dL 8.6-10.6 eGFR (test code = 07565-5) 127.2 mL/min/1.73m2 CKD-EPI eGFR (2020). Assuming creatinine has been stable day-to-day for at least three months, the eGFR indicates Category G1 (>= 90 mL/min/1.73 m2) Lab Interpretation (test code = 79175-7) Abnormal [facility] CenterHepatic Function Panel (34048) (ALB,T.PRO,BILI T,BU/BC,ALT,AST,ALK PHOS)2023-11-08 10:13:02* Test Item Value Reference Range Interpretation Comme nts TOTAL BILI (test code = 2336040860) 1.3 mg/dL 0.1-1.1 H BILI UNCON (test code = 9965533758) 0.5 mg/dL 0.1-1.1 BILI CONJ (test code = 3687154571) 0.0 mg/dL 0.0-0.3 T PROTEIN (test code = 2717402782) 7.0 g/dL 6.3-8.2 ALBUMIN (test code = 7060326807) 4.0 g/dL 3.5-5.0 ALK PHOS (test code = 7008831481) 201 U/L 34-122 H ALTv (test code = 1742-6) 111 U/L 5-35 H AST(SGOT) (test code = 7556462152) 426 U/L 13-40 H Lab Interpretation (test cod e = 85183-0) Abnormal [facility] CenterPhosphorus2024-07-19 10:13:01* Test Item Value Reference Range Interpretation Comme nts PHOSPHORUS (test code = 6242530921) 1.3 mg/dL 2.5-5.0 L Lab Interpretation (test cod e = 50301-2) Abnormal [facility] CenterCbc without Fbnf1151-20-41 09:41:55* Test Item Value Reference Range Interpretation [...] 160 166-358 L MPV (test code = 97053-7) 9.9 fL 9.5-12.9 RDW-CV (test code = 788-0) 13.2 % 12.0-15.5 RDW-SD (test code = 37988-0) 48.1 fL 39.0-49.9 NRBC x10^3 (test code = 1340833142) See_Comment [Automated messa ge] The system which generated this result transmitted reference range: 10*3/?L. The reference range was not used to interpret this result as normal/abnormal. NRBC/100 WBC (test code = 6289346339) 0.0 0.0-10.0 IPF % (test code = 5664943102) Lab Interpretation (test code = 32440-7) Abnormal [facility] CenterLactic Acid Whole Qechg9516-92-92 07:27:21* Test Item Value Reference Range Interpretation Comme nts LACTIC ACID (test code = 1211824727) 2.14 mmol/L 0.50-2.20 Lab Interpretation (test cod e = 48728-4) Normal [facility] Venous Blood Bdb7780-03-93 01:17:39 * Test Item Value Reference Range Interpretation Comme nts PH (test code = 7276690598) 7.28 7.32-7.42 L PCO2 TONY (test code = 8853802059) 35 41-51 L PO2 TONY (test code = 4179507624) 32 25-40 HCO3 TONY (test code = 1171620263) 16 24-28 L AC VBE(BEAKER) (test code = 2480555385) -9.8 mEq/L Lab Interpretation (test cod e = 11709-3) [facility] Tssvq3082-95-87 01:07:01* Test Item Value Reference Range Interpretation Comme nts LACTIC ACID (test code = 0483628249) 3.31 mmol/L 0.50-2.20 H Lab Interpretation (test cod e = 94466-7) [facility] Rnvj3961-62-26 20:43:53Kritsa Cabrera MD ? ? 11/06/2023 ?3:43 PMCritical [...] separately billable procedures and treating other patients. [facility] CenterHANS D8038-41-01 19:33:09* Test Item Value Reference Range Interpretation Comme nts TROPONIN I (test code = 1086210812) 0.004 ng/mL <=0.034 JASMYN (test code = [...] of biotin. Lab Interpretation (test code = 33896-8) Normal [facility] CenterETHANOL2024-07-17 19:33:09* Test Item Value Reference Range Interpretation Comme nts ALCOHOL (test code = 3440565227) 363 mg/dL JASMYN (test code = JASMYN) <10 Hyuwgalg29-900 Toxic>100 Depression of WAXER OPERATOR>400 Fatalities Reported [facility] CenterN-TERMINAL AQK-FJI1970-13-17 19:30:31* Test Item Value Reference Range Interpretation Comme nts NT-proBNP (test code = 79096-1) 108 pg/mL <=125 Lab Interpretation (test cod e = 94590-7) Normal [facility] CenterPOCT ZIHY4142-54-06 19:25:00* Test Item Value Reference Range Interpretation Comme nts POCT PREG (test code = 1605) Negative On board controls acceptable with C Line (test code = 3574) Yes POCT PREG LOT # (test code = 3575) 300740 POCT PREG TEST DATE ( test code = 3576) 2024-08-27 Lab Interpretation (test cod e = 25129-2) Normal [facility] CenterMagnesium2024-07-17 19:16:32* Test Item Value Reference Range Interpretation Comme nts MAGNESIUM (test code = 9922488278) 2.2 mg/dL 1.7-2.4 Lab Interpretation (test cod e = 61013-2) Normal [facility] CenterCOMP. METABOLIC PANEL (18074)2023-11-06 19:16:12* Test Item Value Reference Range Interpretation Comme nts NA (test code = 8444623906) 141 mmol/L 135-145 K (test code = 9461433402) 4.3 mmol/L 3.5-5.0 CL (test code = 8427199904) 100 mmol/L 98-108 CO2 TOTAL (test code = 6002047750) 14 mmol/L 23-31 L AGAP (test code = 6248897380) 27 2-16 H BUN (test code = 3821976151) 12 mg/dL 7-23 GLUCOSE (test code = 0918241147) 60 mg/dL 70-110 L CREATININE (test code = 2160-0) 0.68 mg/dL 0.50-1.04 TOTAL BILI (test code = 3445961622) 1.4 mg/dL 0.1-1.1 H CALCIUM (test code = 2130671633) 9.0 mg/dL 8.6-10.6 T PROTEIN (test code = 0072328102) 9.7 g/dL 6.3-8.2 H ALBUMIN (test code = 6039611034) 5.4 g/dL 3.5-5.0 H ALK PHOS (test code = 0015086578) 207 U/L 34-122 H ALTv (test code = 1742-6) 79 U/L 5-35 H AST(SGOT) (test code = 6533803395) 154 U/L 13-40 H eGFR (test code = 21417-3) 118.1 mL/min/1.73m2 CKD-EPI eGFR (2020). Assuming creatinine has been stable day-to-day for at least three months, the eGFR indicates Category G1 (>= 90 mL/min/1.73 m2) Lab Interpretation (test code = 42570-0) Abnormal [facility] CenterLIPASE2024-07-17 19:15:46* Test Item Value Reference Range Interpretation Comme nts LIPASE (test code = 7322222022) 117 U/L 0-220 Lab Interpretation (test cod e = 89452-5) Normal [facility] WITH KVUI7546-75-91 19:07:27* Test Item Value Reference Range Interpretation [...] 32.3 g/dL 31.6-35.1 RDW-SD (test code = 74155-9) 53.5 fL 39.0-49.9 H RDW-CV (test code = 788-0) 13.9 % 12.0-15.5 PLT (test code = 777-3) 345 166-358 MPV (test code = 73673-2) 9.2 fL 9.5-12.9 L NRBC/100 WBC (test code = 4688298220) 0.0 0.0-10.0 NRBC x10^3 (test code = 3403139231) See_Comment [Automated messa ge] The system which generated this result transmitted reference range: 10*3/?L. The reference range was not used to interpret this result as normal/abnormal. GRAN MAT (NEUT) % (test code = 770-8) 57.5 % IMM GRAN % (test code = 3203110400) 0.90 % LYMPH % (test code = 736-9) 29.1 % MONO % (test code = 5905-5) 10.5 % EOS % (test code = 713-8) 0.0 % BASO % (test code = 706-2) 2.0 % GRAN MAT x10^3(ANC) (test code = 9681606967) 3.65 10*3/uL 1.88-7.09 IMM GRAN x10^3 (test code = 9712719109) 0.06 10*3/uL 0.00-0.06 LYMPH x10^3 (test code = 731-0) 1.85 10*3/uL 1.32-3.29 MONO x10^3 (test code = 742-7) 0.67 10*3/uL 0.33-0.92 EOS x10^3 (test code = 711-2) 0.03-0.39 L BASO x10^3 (test code = 704-7) 0.13 10*3/uL 0.01-0.07 H Lab Interpretation (test code = 40450-0) Abnormal [facility] CenterAC PANEL 21 + LACTIC XSPB0780-67-02 18:57:00* Test Item Value Reference Range Interpretation Comme nts PH (test code = 0955229200) 7.16 7.32-7.42 LL PCO2 TONY (test code = 6198130630) 37 41-51 L PO2 TONY (test code = 4679489725) 44 25-40 H HCO3 TONY (test code = 6125170189) 13 24-28 L AC VBE(BEAKER) (test code = 4646209021) -15.1 mEq/L THB TONY (test code = 8554122350) 15.7 g/dL 12.0-16.0 %O2HB TONY (test code = 4915255280) 72.1 % 52.0-63.0 H %COHB TONY (test code = 0467177502) 0.4 % 0.0-1.5 %METHB TONY (test code = 3772840189) 0.3 % 0.4-1.5 L VOL%O2 TONY (test code = 6198236438) 15.9 % 6.0-12.0 H NA (test code = 9759259954) 142 mmol/L 135-145 K+ (test code = 0332276120) 4.2 mmol/L 3.5-5.0 AC CA IONZ (test code = 1161022917) 4.90 mg/dL 4.50-5.30 GLUCOSE (test code = 1315184764) 49 mg/dL 70-110 LL LACTIC ACID (test code = 4679116563) 3.62 mmol/L 0.50-2.20 H Lab Interpretation (test cod e = 93495-9) Abnormal [facility] CenterEthanol2024-07-08 05:06:04* Test Item Value Reference Range Interpretation Comme nts ALCOHOL (test code = 2130383199) 416 mg/dL JASMYN (test code = JASMYN) <10 Nyseyhan70-466 Toxic>100 Depression of WAXER OPERATOR>400 Fatalities Reported [facility] CenterSalicylate2024-07-08 04:57:31 SALICYLATE<10mg/L10/27/2023 11:57 PM [facility]Therapeutic Range: ? Analgesic and Antipyretic Use ? 20- 100 mg/L ? ? Anti-Inflammatory Use ?100-250 mg/L Toxic Range: ? Greater than 300 mg/LUnParkland Memorial HospitalAcetaminophen2024-07-08 04:57:16* Test Item Value Reference Range Interpretation Comme nts ACETAMINOP (test code = 8755761566) 10.0-30.0 L JASMYN (test code = JASMYN) Toxic: Greater coreen n 200 ug/mL @ 4 hour post ingestion or greater than 50 ug/mL @ 12 hour post ingestion Lab Interpretation (test code = 79467-4) Abnormal [facility]. METABOLIC PANEL (55631)2023-10-28 04:56:21* Test Item Value Reference Range Interpretation Comme nts NA (test code = 9363782030) 143 mmol/L 135-145 K (test code = 7769420068) 4.1 mmol/L 3.5-5.0 CL (test code = 6213219441) 102 mmol/L 98-108 CO2 TOTAL (test code = 6771750983) 27 mmol/L 23-31 AGAP (test code = 2683756917) 14 2-16 BUN (test code = 0097223227) 13 mg/dL 7-23 GLUCOSE (test code = 7979915739) 75 mg/dL 70-110 CREATININE (test code = 2160-0) 0.59 mg/dL 0.50-1.04 TOTAL BILI (test code = 0622521658) 1.2 mg/dL 0.1-1.1 H CALCIUM (test code = 6602923457) 8.9 mg/dL 8.6-10.6 T PROTEIN (test code = 2725732524) 8.4 g/dL 6.3-8.2 H ALBUMIN (test code = 6198214980) 4.6 g/dL 3.5-5.0 ALK PHOS (test code = 9413995587) 169 U/L 34-122 H ALTv (test code = 1742-6) 82 U/L 5-35 H AST(SGOT) (test code = 8865938877) 217 U/L 13-40 H eGFR (test code = 82269-5) 122.2 mL/min/1.73m2 CKD-EPI eGFR (2020). Assuming creatinine has been stable day-to-day for at least three months, the eGFR indicates Category G1 (>= 90 mL/min/1.73 m2) Lab Interpretation (test code = 06690-4) Abnormal [facility] WITH OCHG7379-26-94 03:57:19* Test Item Value Reference Range Interpretation [...] 33.5 g/dL 31.6-35.1 RDW-SD (test code = 86610-5) 55.2 fL 39.0-49.9 H RDW-CV (test code = 788-0) 14.6 % 12.0-15.5 PLT (test code = 777-3) 210 166-358 MPV (test code = 43874-1) 9.3 fL 9.5-12.9 L NRBC/100 WBC (test code = 8303268355) 0.0 0.0-10.0 NRBC x10^3 (test code = 3819142801) See_Comment [Automated messa ge] The system which generated this result transmitted reference range: 10*3/?L. The reference range was not used to interpret this result as normal/abnormal. GRAN MAT (NEUT) % (test code = 770-8) 49.7 % IMM GRAN % (test code = 8235227587) 0.20 % LYMPH % (test code = 736-9) 38.7 % MONO % (test code = 5905-5) 9.4 % EOS % (test code = 713-8) 0.4 % BASO % (test code = 706-2) 1.6 % GRAN MAT x10^3(ANC) (test code = 1224252007) 2.55 10*3/uL 1.88-7.09 IMM GRAN x10^3 (test code = 3337484854) 0.00-0.06 LYMPH x10^3 (test code = 731-0) 1.98 10*3/uL 1.32-3.29 MONO x10^3 (test code = 742-7) 0.48 10*3/uL 0.33-0.92 EOS x10^3 (test code = 711-2) 0.03-0.39 L BASO x10^3 (test code = 704-7) 0.08 10*3/uL 0.01-0.07 H Lab Interpretation (test code = 12285-9) Abnormal [facility] PGOL6166-31-42 03:42:00* Test Item Value Reference Range Interpretation Comme nts POCT PREG (test code = 1605) Negative On board controls acceptable with C Line (test code = 3574) Yes POCT PREG LOT # (test code = 3575) 243404 POCT PREG TEST DATE ( test code = 3576) 08/27/2024 Lab Interpretation (test cod e = 74264-8) Normal [facility] GLUCOSE (AUTOMATED)2023-10-19 15:53:48* Test Item Value Reference Range Interpretation Comme nts POCT GLU (test code = 3817215633) 69 mg/dL 70-110 L Notified Provide r Lab Interpretation (test code = 77079-5) Abnormal [facility] GLUCOSE(AGE >30DAYS)2023-10-19 15:53:00* Test Item Value Reference Range Interpretation Comme nts POCT Glu (age>30days) (test code = 3342) 69 mg/dL, ED provider notified 70-110 Lab Interpretation (test code = 61435-1) Normal [facility] CenterLaazic Acid Whole Sygfm7542-13-10 21:09:38* Test Item Value Reference Range Interpretation Comme nts LACTIC ACID (test code = 3803289174) 2.03 mmol/L 0.50-2.20 Lab Interpretation (test cod e = 63036-4) Normal [facility] CenterLipase2024-05-30 19:51:22* Test Item Value Reference Range Interpretation Comme nts LIPASE (test code = 7733831229) 317 U/L 0-220 H Lab Interpretation (test cod e = 07587-3) Abnormal [facility] with Ftqs9502-74-84 18:33:19* Test Item Value Reference Range Interpretation Comme nts WBC (test code = 6690-2) 5.90 4.30-11.10 RBC (test code = 789-8) 3.99 3.93-5.25 HGB (test code = 718-7) 13.3 g/dL 11.6-15.0 HCT (test code = 4544-3) 38.4 % 35.7-45.2 MCV (test code = 787-2) 96.2 fL 80.6-95.5 H MCH (test code = 785-6) 33.3 pg 25.9-32.8 H MCHC (test code = 786-4) 34.6 g/dL 31.6-35.1 RDW-SD (test code = 33071-9) 46.7 fL 39.0-49.9 RDW-CV (test code = 788-0) 13.2 % 12.0-15.5 PLT (test code = 777-3) 90 166-358 L MPV (test code = 27010-3) 9.6 fL 9.5-12.9 IPF % (test code = 4905224752) 3.9 % 1.3-7.7 Platelet count measured by fluorescence method. NRBC/100 WBC (test code = 9205802118) 0.0 0.0-10.0 NRBC x10^3 (test code = 3806406529) See_Comment [Automated Bondand[employer]ia ge] The system which generated this result transmitted reference range: 10*3/?L. The reference range was not used to interpret this result as normal/abnormal. GRAN MAT (NEUT) % (test code = 770-8) 68.9 % IMM GRAN % (test code = 1929694374) 1.20 % LYMPH % (test code = 736-9) 20.5 % MONO % (test code = 5905-5) 8.3 % EOS % (test code = 713-8) 0.3 % BASO % (test code = 706-2) 0.8 % GRAN MAT x10^3(ANC) (test code = 8824036525) 4.06 10*3/uL 1.88-7.09 IMM GRAN x10^3 (test code = 4651700341) 0.07 10*3/uL 0.00-0.06 H LYMPH x10^3 (test code = 731-0) 1.21 10*3/uL 1.32-3.29 L MONO x10^3 (test code = 742-7) 0.49 10*3/uL 0.33-0.92 EOS x10^3 (test code = 711-2) 0.03-0.39 L BASO x10^3 (test code = 704-7) 0.05 10*3/uL 0.01-0.07 BANDS (test code = 3348284840) Increased A Lab Interpretation (test code = 68820-3) [facility]4029[facility]93-19 18:21:08* Test Item Value Reference Range Interpretation Comme nts CK (test code = 0402675143) 112 U/L 33-194 Lab Interpretation (test cod e = 22200-5) [facility] (45068)2023-09-19 18:01:22* Test Item Value Reference Range Interpretation Comme nts NA (test code = 9506599077) 139 mmol/L 135-145 K (test code = 5963924112) 3.5 mmol/L 3.5-5.0 CL (test code = 5459696267) 97 mmol/L 98-108 L CO2 TOTAL (test code = 6951190616) 29 mmol/L 23-31 AGAP (test code = 4686320787) 13 2-16 BUN (test code = 6672666512) 14 mg/dL 7-23 GLUCOSE (test code = 2041192585) 116 mg/dL 70-110 H CREATININE (test code = 2160-0) 0.64 mg/dL 0.50-1.04 TOTAL BILI (test code = 9982297886) 1.0 mg/dL 0.1-1.1 CALCIUM (test code = 5593719180) 8.9 mg/dL 8.6-10.6 T PROTEIN (test code = 7149027667) 8.7 g/dL 6.3-8.2 H ALBUMIN (test code = 5059160043) 4.7 g/dL 3.5-5.0 ALK PHOS (test code = 1355123086) 267 U/L 34-122 H ALTv (test code = 1742-6) 63 U/L 5-35 H AST(SGOT) (test code = 7360467588) 277 U/L 13-40 H eGFR (test code = 74993-7) 119.8 mL/min/1.73m2 CKD-EPI eGFR (2020). Assuming creatinine has been stable day-to-day for at least three months, the eGFR indicates Category G1 (>= 90 mL/min/1.73 m2) Lab Interpretation (test code = 01950-7) [facility] 1 [id number] 17:15:42HISTORY: Tachycardia, cough, COVID. TECHNIQUE: Portable AP upright view of the chest is obtained. Comparisonmade with 09/13/2023 study. FINDINGS: No acute pneumonia. No pneumothorax or pleural effusion orpulmonary congestion detected. Cardiac size is within normal limits. CONCLUSIONS: No signs of acute cardiopulmonary disease. [facility] CenterLactic Acid Whole [id number] 17:11:09* Test Item Value Reference Range Interpretation Comme nts LACTIC ACID (test code = 9612456373) 4.10 mmol/L 0.50-2.20 H Lab Interpretation (test cod e = 85211-3) [facility]normal [facility]CT [facility]ST PULMONARY [id number] 17:58:59Provider: CECILE RANGEL Exam: CT CHEST PULMONARY [...] Within normal limits. Musculoskeletal: No acute bony abnormality.[facility] CenterTROPONIN [id number] 17:47:34* Test Item Value Reference Range Interpretation Comme nts TROPONIN I (test code = 8904580658) 0.003 ng/mL <=0.034 JASMYN (test code = [...] of biotin. Lab Interpretation (test code = 75475-2) Normal [facility] CenterN-TERMINAL [id number]-[id number] 17:45:17* Test Item Value Reference Range Interpretation Comme nts NT-proBNP (test code = 85351-9) 48 pg/mL <=125 Lab Interpretation (test cod e = 44975-8) Normal [facility] CenterCOMP. METABOLIC PANEL (89247)2023-09-15 17:36:58* Test Item Value Reference Range Interpretation Comme nts NA (test code = 9913799723) 144 mmol/L 135-145 K (test code = 7652862081) 3.4 mmol/L 3.5-5.0 L CL (test code = 0439778433) 102 mmol/L 98-108 CO2 TOTAL (test code = 8121630572) 33 mmol/L 23-31 H AGAP (test code = 7877579935) 9 2-16 BUN (test code = 0544104576) 7 mg/dL 7-23 GLUCOSE (test code = 7108850707) 91 mg/dL 70-110 CREATININE (test code = 2160-0) 0.63 mg/dL 0.50-1.04 TOTAL BILI (test code = 9102850619) 1.0 mg/dL 0.1-1.1 CALCIUM (test code = 3999453734) 8.5 mg/dL 8.6-10.6 L T PROTEIN (test code = 1748005499) 8.0 g/dL 6.3-8.2 ALBUMIN (test code = 5644981977) 4.2 g/dL 3.5-5.0 ALK PHOS (test code = 0810093306) 182 U/L 34-122 H ALTv (test code = 1742-6) 48 U/L 5-35 H AST(SGOT) (test code = 1438021864) 175 U/L 13-40 H eGFR (test code = 67804-2) 120.3 mL/min/1.73m2 CKD-EPI eGFR (2020). Assuming creatinine has been stable day-to-day for at least three months, the eGFR indicates Category G1 (>= 90 mL/min/1.73 m2) Lab Interpretation (test code = 07642-9) [facility]normal [facility] CenterD-OAXHQ9432-40-61 17:13:34* Test Item Value Reference Range Interpretation Comments D-DIMER (test code = 9546739790) 0.93 See_Comment H [Automated message] The system [...] a diagnosis. Lab Interpretation (test code = 17159-8) [facility]normal [facility] CenterCB WITH [id number] 17:06:37* Test Item Value Reference Range Interpretation [...] 34.4 g/dL 31.6-35.1 RDW-SD (test code = 04387-0) 46.2 fL 39.0-49.9 RDW-CV (test code = 788-0) 12.9 % 12.0-15.5 PLT (test code = 777-3) 150 166-358 L MPV (test code = 65973-3) 9.1 fL 9.5-12.9 L NRBC/100 WBC (test code = 4816082797) 0.0 0.0-10.0 NRBC x10^3 (test code = 1057237965) See_Comment [Automated messa ge] The system which generated this result transmitted reference range: 10*3/?L. The reference range was not used to interpret this result as normal/abnormal. GRAN MAT (NEUT) % (test code = 770-8) 50.9 % IMM GRAN % (test code = 0238106573) 0.50 % LYMPH % (test code = 736-9) 39.0 % MONO % (test code = 5905-5) 7.1 % EOS % (test code = 713-8) 1.0 % BASO % (test code = 706-2) 1.5 % GRAN MAT x10^3(ANC) (test code = 2526965449) 3.02 10*3/uL 1.88-7.09 IMM GRAN x10^3 (test code = 0330524715) 0.03 10*3/uL 0.00-0.06 LYMPH x10^3 (test code = 731-0) 2.31 10*3/uL 1.32-3.29 MONO x10^3 (test code = 742-7) 0.42 10*3/uL 0.33-0.92 EOS x10^3 (test code = 711-2) 0.06 10*3/uL 0.03-0.39 BASO x10^3 (test code = 704-7) 0.09 10*3/uL 0.01-0.07 H Lab Interpretation (test code = 91352-9) Abnormal [facility] CenterLactic Acid Whole Jjclb5765-89-29 16:57:54* Test Item Value Reference Range Interpretation Comme [facility] LACTIC ACID (test code = 2491590422) 1.81 mmol/L 0.50-2.20 Lab Interpretation (test cod e = 57834-7) Normal [facility] [id number] 16:53:00* Test Item Value Reference Range Interpretation Comme nts POCT PREG (test code = 1605) Negative On board controls acceptable with C Line (test code = 3574) Yes POCT PREG LOT # (test code = 3575) [id number] POCT PREG TEST DATE ( test code = 3576) 08-23-2024 Lab Interpretation (test cod e = 44879-0) Normal [facility] 2 [id number] 00:39:44Exam: Chest (2 Views), 09/13/2023 6:30 PM. Ordering Physician: ELENO BLAIR. History: fever . Technique: Two views of the chest. Comparison: None. Findings: No focal consolidation. No pneumothorax or effusion. Normal size of thecardiac silhouette. No acute osseous finding.[facility] [id number] 00:14:00* Test Item Value Reference Range Interpretation Comme nts POCT PREG (test code = 1605) Negative On board controls acceptable with C Line (test code = 3574) Yes POCT PREG LOT # (test code = 3575) [id number] POCT PREG TEST DATE ( test code = 3576) 05/27/2024 Lab Interpretation (test cod e = 68182-9) Normal [facility] CenterTransthoracic echo (TTE)2023-04-27 05:37:38* Test Item Value Reference Range Interpretation Comme nts Height (test code = 8726447422) 67 in Weight (test code = 9218459169) 109 lbs Systolic BP (test code = 9182685568) 102 mmHg Diastolic BP (test code = 7160156169) 67 mmHg Heart Rate (test code = 2793393936) 78 bpm BSA (test code = 0050040776) 1.56 m2 Ao root diam (test code = 3716370567) 3.10 cm Aortic root (test code = 0237026019) 3.1 cm Ao root annulus (test code = 7299325541) 3.1 cm LVOT diameter (test code = 0181578570) 2.02 cm LVOT area (test code = 8182266193) 3.20 cm2 LVIDD (test code = 4632833251) 3.60 cm Left Ventricular End Diastolic Volume by Teichholz Method (test code = 2427782) 56.1 mL IVS (test code = 9589772676) 0.63 cm Interventricular Septum Diastolic Thickness by 2D (test code = 2668758) 0.63 cm LVPWD (test code = 6846356162) 0.65 cm PW (test code = 9033670036) 0.65 cm 0.6-1.1 EF(Teich) (test code = 8346252367) 54.30 % LVIDS (test code = 0560456573) 2.60 cm Left Ventricular End Systolic Volume by Teichholz Method (test code = 9534911) 25.6 mL FS (test code = 2713005872) 28 % EF - 2D (test code = 63174463) 54.30 % LA size (test code = 5282851894) 2.8 cm LAV(MOD-sp4) (test code = 0793526893) 25.30 mL E wave decelartion time (test code = 9580717571) 0.19 s MV stenosis pressure 1/2 time (test code = 7968607365) 55.0 ms MV Peak A Liv (test code = 7262032334) 50.8 cm/s MV Peak E Liv (test code = 1538891469) 84.4 cm/s E/A ratio (test code = 0585311416) 1.66 ratio MV Prop V (test code = 6155977455) 37.10 cm/s MV E/e' septal (test code = 4077723827) 22.4 cm/s Tapse (test code = 5396589477) 1.68 cm LVOT stroke volume (test code = 2297955807) 46.00 cm3 LVOT peak liv (test code = 2533686761) 77.0 cm/s LVOT mn grad (test code = 9792511509) 1.3 mmHg AV LVOT peak gradient (test code = 5576165011) 2.37 mmHg LVOT peak VTI (test code = 1800497386) 14.3 cm LV V1 mean (test code = 2115560726) 54.20 cm/s Aortic valve mean velocity (test code = 6130701398) 82.4 cm/s Ao peak liv (test code = 0282279698) 108.4 cm/s Ao VTI (test code = 6033548385) 20.9 cm AV area by cont VTI (test code = 8679858765) 2.2 cm2 AV area peak liv (test code = 8272593119) 2.3 cm2 Ao max PG (test code = 5777922410) 4.70 mm[Hg] AV peak gradient (test code = 4760024244) 4.7 mmHg AV valve area (test code = 3344273840) 2.20 cm2 AV mean gradient (test code = 2063040168) 2.9 mmHg MR max PG (test code = 5625719667) 94.40 mm[Hg] MR max liv (test code = 7469263635) 485.70 cm/s Mr max liv (test code = 2248017647) 485.7 m/s Radiology Study observation (narrative) (test code = 64725-0) JASMYN (test code = JASMYN) ?Left?Ventricle: Left [...] 2D, color flow Doppler and spectral Doppler. [facility] CenterCB with Zacaywdrvhzi6873-36-03 12:37:35* Test Item Value Reference Range Interpretation Comme nts WBC (test code = 6690-2) 3.78 See_Comment L [Automated Bond[employer]Denia Sharypic] The system which generated this result transmitted reference range: 4.30 - 11.10 10*3/?L. The reference range was not used to interpret this result as normal/abnormal. RBC (test code = 789-8) 2.95 See_Comment L [Automated [employer]ia [employer]ary[employer]] The system which generated this result transmitted [...] 33.8 g/dL 31.6-35.1 RDW-SD (test code = 60174-0) 45.7 fL 39.0-49.9 RDW-CV (test code = 788-0) 12.6 % 12.0-15.5 PLT (test code = 777-3) 95 See_Comment L [Automated [employer]ary[employer]] The system which generated this result transmitted reference range: 166 - 358 10*3/?L. The reference range was not used to interpret this result as normal/abnormal. MPV (test code = 00637-6) 11.6 fL 9.5-12.9 IPF % (test code = 1286593988) 9.1 % 1.3-7.7 H Platelet count measured by fluorescence method. NRBC/100 WBC (test code = 0563804475) 0.0 See_Comment [Automated [employer]] The system which generated this result transmitted reference range: 0.0 - 10.0 /100 WBCs. The reference range was not used to interpret this result as normal/abnormal. NRBC x10^3 (test code = 7539706714) See_Comment [Automated [employer]] The system which generated this result transmitted reference range: 10*3/?L. The reference range was not used to interpret this result as normal/abnormal. SEG % (test code = 43285-9) 56 % 33-76 LYMPH % (test code = 21556-5) 32 % 14-54 MONO % (test code = 21418-5) 12 % 0-4 H ANC (test code = 753-4) 2.12 10*3/uL 1.88-7.09 Lab Interpretation (test code = 70285-5) Abnormal [facility] CenterProthrombin Time / [id number] 11:49:08* Test Item Value Reference Range Interpretation Comme [facility] PROTIME PATIENT (test code = 5964-2) 15.3 See_Comment H [Automated [employer]] The system which generated this result transmitted reference range: 12.0 - 14.7 Seconds. The reference range was not used to interpret this result as normal/abnormal. INR (test code = 6301-6) 1.2 Normal INR <1.1; Warfarin Therapeutic range 2.0 to 3.0 or 2.5 to 3.5, depending upon the indications. Lab Interpretation (test code = 98049-5) Abnormal [facility] CenteraPTT2024-01-04 11:49:08* Test Item Value Reference Range Interpretation Comme [facility] APTT Patient (test code = 3173-2) 29 See_Comment [Automated message] The system which generated this result transmitted reference range: 23 - 38 Seconds. The reference range was not used to interpret this result as normal/abnormal. JASMYN (test code = JASMYN) The [facility] patient population mean normal value for aPTT is 30 seconds. Lab Interpretation (test code = 54484-3) Normal [facility] CenterComp. Metabolic Panel (63805)2023-04-25 11:44:23* Test Item Value Reference Range Interpretation Comme nts NA (test code = 0877573682) 136 mmol/L 135-145 K (test code = 3488862005) 2.6 mmol/L 3.5-5.0 LL CL (test code = 3378363570) 100 mmol/L 98-108 CO2 TOTAL (test code = 2772118695) 30 mmol/L 23-31 AGAP (test code = 0015764881) 6 2-16 BUN (test code = 8102996470) 16 mg/dL 7-23 GLUCOSE (test code = 7914898957) 96 mg/dL 70-110 CREATININE (test code = 5119464453) 0.71 mg/dL 0.50-1.04 TOTAL BILI (test code = 2657705853) 4.0 mg/dL 0.1-1.1 H CALCIUM (test code = 1721603946) 7.5 mg/dL 8.6-10.6 L T PROTEIN (test code = 9037198086) 5.8 g/dL 6.3-8.2 L ALBUMIN (test code = 1032480368) 3.0 g/dL 3.5-5.0 L ALK PHOS (test code = 5942668344) 170 U/L 34-122 H ALTv (test code = 1742-6) 50 U/L 5-35 H AST(SGOT) (test code = 3513935855) 139 U/L 13-40 H eGFR (test code = 38220-8) 115.3 mL/min/1.73m2 CKD-EPI eGFR (2020). Assuming creatinine has been stable day-to-day for at least three months, the eGFR indicates Category G1 (>= 90 mL/min/1.73 m2) Lab Interpretation (test code = 67003-5) Abnormal [facility] CenterMagnesium Yprxh3842-95-85 11:43:47* Test Item Value Reference Range Interpretation Comme nts MAGNESIUM (test code = 3688936882) 2.0 mg/dL 1.7-2.4 Lab Interpretation (test cod e = 92993-7) Normal [facility] CenterN-TERMINAL BBO-AHZ8703-66-04 11:43:47* Test Item Value Reference Range Interpretation Comme [facility] NT-proBNP (test code = 55831-6) 399 pg/mL <=125 JASMYN (test code = JASMYN) Result Indeterminate-Consid er causes of NT-proBNP elevation other than Heart failure such as acute coronary syndrome, pulmonary embolism, pulmonary hypertension, sepsis, stroke, and renal dysfunction. Lab Interpretation (test code = 92725-2) Abnormal [facility] CenterLipase2024-01-04 11:43:47* Test Item Value Reference Range Interpretation Comme nts LIPASE (test code = 6880421192) 475 U/L 0-220 H Lab Interpretation (test cod e = 73895-6) Abnormal [facility] CenterPhosphorus Meohc6687-89-50 06:12:16* Test Item Value Reference Range Interpretation Comme nts PHOSPHORUS (test code = 9886758556) 2.0 mg/dL 2.5-5.0 L Slight hemolysis Lab Interpretation (test code = 65316-5) Abnormal [facility] CenterLipase2024-01-04 04:47:27* Test Item Value Reference Range Interpretation Comme nts LIPASE (test code = 7068649696) 506 U/L 0-220 H Lab Interpretation (test cod e = 41617-6) Abnormal [facility] CenterCT ABDOMEN PELVIS W GONRWCWY6392-28-71 01:43:47History: Abdominal abscess/infection suspected Elevated bilirubin 6.9, [...] obstruction, perforation, or abscess. The osseous structures areunremarkable.[facility] CenterEthanol2024-01-04 00:23:03 ALCOHOL<10mg/dL04/24/2023 6:23 PM [facility]10 Deuahipu64-092 Toxic>100 Depression of WAXER OPERATOR>400 Fatalities ReportedUnParkland Memorial HospitalAmmonia, Ewqspr6050-02-18 23:56:33* Test Item Value Reference Range Interpretation Comme nts AMMONIA (test code = 4472835263) 24 umol/L 9-33 Lab Interpretation (test cod e = 15958-0) Normal [facility] CenterPOCT Ynkg9265-49-06 23:41:00* Test Item Value Reference Range Interpretation Comme nts POCT PREG (test code = 1605) Negative On board controls acceptable with C Line (test code = 3574) Yes POCT PREG LOT # (test code = 3575) [id number] POCT PREG TEST DATE ( test code = 3576) 06/30/2024 Lab Interpretation (test cod e = 70944-8) Normal [facility] CenterMagnesium2024-01-03 23:24:49* Test Item Value Reference Range Interpretation Comme nts MAGNESIUM (test code = 2314489342) 1.4 mg/dL 1.7-2.4 L Lab Interpretation (test cod e = 88448-3) Abnormal [facility] CenterCom. Metabolic Panel (92257)2023-04-24 23:24:28* Test Item Value Reference Range Interpretation Comme nts NA (test code = 6156942676) 134 mmol/L 135-145 L K (test code = 9656806430) 3.6 mmol/L 3.5-5.0 CL (test code = 5365853941) 91 mmol/L 98-108 L CO2 TOTAL (test code = 7217989525) 31 mmol/L 23-31 AGAP (test code = 4681325188) 12 2-16 BUN (test code = 9679497659) 24 mg/dL 7-23 H GLUCOSE (test code = 4405242019) 104 mg/dL 70-110 CREATININE (test code = 0772533624) 1.13 mg/dL 0.50-1.04 H TOTAL BILI (test code = 5911755826) 6.9 mg/dL 0.1-1.1 H CALCIUM (test code = 3307330734) 9.5 mg/dL 8.6-10.6 T PROTEIN (test code = 9431579177) 8.6 g/dL 6.3-8.2 H ALBUMIN (test code = 4352418052) 4.6 g/dL 3.5-5.0 ALK PHOS (test code = 4432857104) 243 U/L 34-122 H ALTv (test code = 1742-6) 70 U/L 5-35 H AST(SGOT) (test code = 2082083954) 203 U/L 13-40 H eGFR (test code = 77597-4) 66.0 mL/min/1.73m2 CKD-EPI eGFR (2020). Assuming creatinine has been stable day-to-day for at least three months, the eGFR indicates Category G2 (60 - 89 mL/min/1.73 m2) Lab Interpretation (test code = 06395-9) Abnormal [facility] CenterProthrombin Time / [id number] 23:23:27* Test Item Value Reference Range Interpretation Comme [facility] PROTIME PATIENT (test code = 5964-2) 15.2 [...] the indications. Lab Interpretation (test code = 42041-7) Abnormal [facility] CenterActivated Partial Thrmplas Ajw6422-36-49 23:19:26* Test Item Value Reference Range Interpretation Comme [facility] APTT Patient (test code = 3173-2) 29 See_Comment [Automated message] The system which generated this result transmitted reference range: 23 - 38 Seconds. The reference range was not used to interpret this result as normal/abnormal. JASMYN (test code = JSAMYN) The [facility] patient population mean normal value for aPTT is 30 seconds. Lab Interpretation (test code = 10408-3) Normal [facility] CenterCbc with Xdpd8211-92-54 23:17:49* Test Item Value Reference Range Interpretation Comme nts WBC (test code = 6690-2) 6.47 See_Comment [Automated messa ge] The system which generated this result transmitted reference range: 4.30 - 11.10 10*3/?L. The reference range was not used to interpret this result as normal/abnormal. RBC (test code = 789-8) 3.85 See_Comment L [Automated messa ge] The system [...] 35.0 g/dL 31.6-35.1 RDW-SD (test code = 11101-6) 44.6 fL 39.0-49.9 RDW-CV (test code = 788-0) 12.4 % 12.0-15.5 PLT (test code = 777-3) 123 See_Comment L [Automated messa ge] The system which generated this result transmitted reference range: 166 - 358 10*3/?L. The reference range was not used to interpret this result as normal/abnormal. MPV (test code = 85914-7) 11.9 fL 9.5-12.9 IPF % (test code = 7252462513) 11.9 % 1.3-7.7 H Platelet count measured by fluorescence method. NRBC/100 WBC (test code = 9329505903) 0.0 See_Comment [Automated [employer] ssage] The system which generated this result transmitted reference range: 0.0 - 10.0 /100 WBCs. The reference range was not used to interpret this result as normal/abnormal. NRBC x10^3 (test code = 4518607360) See_Comment [Automated messa ge] The system which generated this result transmitted reference range: 10*3/?L. The reference range was not used to interpret this result as normal/abnormal. GRAN MAT (NEUT) % (test code = 770-8) 59.8 % IMM GRAN % (test code = 9728285532) 0.30 % LYMPH % (test code = 736-9) 18.1 % MONO % (test code = 5905-5) 20.2 % EOS % (test code = 713-8) 0.5 % BASO % (test code = 706-2) 1.1 % GRAN MAT x10^3(ANC) (test code = 1761928763) 3.87 10*3/uL 1.88-7.09 IMM GRAN x10^3 (test code = 4600345133) 0.00-0.06 LYMPH x10^3 (test code = 731-0) 1.17 10*3/uL 1.32-3.29 L MONO x10^3 (test code = 742-7) 1.31 10*3/uL 0.33-0.92 H EOS x10^3 (test code = 711-2) 0.03 10*3/uL 0.03-0.39 BASO x10^3 (test code = 704-7) 0.07 10*3/uL 0.01-0.07 Lab Interpretation (test code = 10469-0) Abnormal [facility] CenterUA RFLX MICR CULT IF BQOUWHMAM2475-61-48 04:32:00* Test Item Value Reference Range Interpretation [...] culture: Suprapubic PainSpecimen Description: CLEAN CATCHUR HCG [id number] 04:32:00* Test Item Value Reference Range Interpretation Comme nts UR HCG QUAL (test code = HCGQLU) NEGATIVE 1. Very dilute u rine specimens, as indicated by a lowspecific gravity, may not contain customer care representative levels ofhCG. 2. False negative results may occur when the levels of hCGare below the sensitivity level of the test. If is still suspected, a first morningurine specimen should be collected 48 hours later andtested. Indication for culture: Suprapubic PainSpecimen Description: CLEAN CATCH COMPREHENSIVE METABOLIC OWSEH6541-73-41 03:55:00* Test Item Value Reference Range Interpretation Comme nts SODIUM (test code = NA) 141 mEq/L 135-145 N POTASSIUM (test code = K) 2.7 mEq/L 3.5-5.0 LL RESULTS CALLED Marilyn DANIELLE.READ BACK & CONFIRMED? YES.BY F.LAB.LGL0 01/12/23 0354.RESULTS VERIFIED BY REPEAT ANALYSIS CHLORIDE [...] ALKP) 173 units/L 46-116 H C REACTIVE JEWHOQI7966-76-92 03:55:00* Test Item Value Reference Range Interpretation Comme nts C REACTIVE PROTEIN (test cod e = CRP) 0.30 mg/dL < 0.3 N - CT MAXIFAC W/ETVWMWTX6949-55-35 03:43:00 [facility] : 1990 Sex: F Patient Name: ETHEL AMATO Unit No: [id number] EXAMS: CPT CODE: [id number] CT MAXIFAC W/CONTRAST 656[address] CT MAXILLOFACIAL WITH CONTRAST, 01/12/2023. CLINICAL: Pain. Swelling. COMMENT: Transaxial plus sagittal/coronal reformatted images were obtained following IV contrast administration. Facial and right periorbital soft tissue swelling are noted. The globes are intact. No focal masses and/or fluid c ollections are detected. The paranasal sinuses and mastoids [...] DLP: 662.82 Trnscrbd D/ (0343) t.SDR.JS28 [address] [facility] NAME: ETHEL AMATO Radiology Department PHYS: Jacob Gill MD [address] : 1990 AGE: 32 SEX: F [place] [address] LOC: F.ERS PHONE #: [phone] EXAM DATE: 01/12/2023 STATUS: PRE ER FAX #: [phone] RAD NO: Page 1 Signed Report 1 Patient Name: ETHEL AMATO Unit No: [id number] EXAMS: CPT CODE: [id number] CT MAXIFAC W/CONTRAST 15913 (Continued)Orig Print D/T: S: 01/12/2023 (0346) [facility] NAME: ETHEL AMATO RadiologyDepartment PHYS: Jacob Gill MD [address] : 1990 AGE: 32 SEX: F [place] [address] LOC: F.ERS PHONE #: [phone] EXAM DATE: 01/12/2023 STATUS: PREER FAX #: [phone] RAD NO: Page 2 Signed Report 1CBC W/AUTO [id number] 03:29:00* Test Item Value Reference Range Interpretation [...] Test Item Value Reference Range Interpretation Comme [facility] POCT GLU (test code = 3138692172) 155 mg/dL 70-110 H Lab Interpretation (test cod e = 14414-1) Abnormal [facility] CenterPOSD GLUCOSE (AUTOMATED)2022-11-11 18:35:24* Test Item Value Reference Range Interpretation Comme [facility] POCT GLU (test code = 2913273295) 126 mg/dL 70-110 H Lab Interpretation (test cod e = 27907-5) Abnormal [facility] GLUCOSE (AUTOMATED)2022-11-11 17:52:07* Test Item Value Reference Range Interpretation Comme nts POCT GLU (test code = 8344608975) 66 mg/dL 70-110 L Lab Interpretation (test cod e = 31071-0) Abnormal [facility] CenterMAGNESIUM2023-07-23 14:12:09* Test Item Value Reference Range Interpretation Comme nts MAGNESIUM (test code = 3307588011) 1.7 mg/dL 1.7-2.4 Slight hemolysis Lab Interpretation (test code = 05521-5) Normal [facility] GLUCOSE (AUTOMATED)2022-11-11 12:23:05* Test Item Value Reference Range Interpretation Comme nts POCT GLU (test code = 0879652575) 59 mg/dL 70-110 L Lab Interpretation (test cod e = 22695-3) Abnormal [facility] WITH [id number] 11:41:02* Test Item Value Reference Range Interpretation [...] 32.6 g/dL 31.6-35.1 RDW-SD (test code = 42478-7) 44.8 fL 39.0-49.9 RDW-CV (test code = 788-0) 11.5 % 12.0-15.5 L PLT (test code = 777-3) 158 See_Comment L [Automated messa ge] The system which generated this result transmitted reference range: 166 - 358 10*3/?L. The reference range was not used to interpret this result as normal/abnormal. MPV (test code = 15369-0) 10.3 fL 9.5-12.9 NRBC/100 WBC (test code = 8779971598) 0.0 See_Comment [Automated me ssage] The system which generated this result transmitted reference range: 0.0 - 10.0 /100 WBCs. The reference range was not used to interpret this result as normal/abnormal. NRBC x10^3 (test code = 0911376422) See_Comment [Automated messa ge] The system which generated this result transmitted reference range: 10*3/?L. The reference range was not used to interpret this result as normal/abnormal. SEG % (test code = 13990-4) 37 % 33-76 BAND % (test code = 94447-6) 1 % 0-1 LYMPH % (test code = 01485-4) 42 % 14-54 MONO % (test code = 41827-9) 19 % 0-4 H EOS % (test code = 64610-6) 1 % 0-3 ANC (test code = 753-4) 1.24 10*3/uL 1.88-7.09 L Lab Interpretation (test code = 11002-5) [facility] Test Item Value Reference Range Interpretation Comme nts LIPASE (test code = 4029427112) 745 U/L 0-220 H Lab Interpretation (test cod e = 64987-1) [facility] (26832)2022-11-11 10:28:35* Test Item Value Reference Range Interpretation Comme nts NA (test code = 8600590918) 138 mmol/L 135-145 K (test code = 2712905618) 3.0 mmol/L 3.5-5.0 L Slight hemolysis CL (test code = 4055626078) 113 mmol/L 98-108 H CO2 TOTAL (test code = 7347148238) 17 mmol/L 23-31 L AGAP (test code = 9590556193) 8 2-16 BUN (test code = 9192956020) 13 mg/dL 7-23 Slight hemolysis GLUCOSE (test code = 8558149498) 39 mg/dL 70-110 LL CREATININE (test code = 8920768433) 0.38 mg/dL 0.50-1.04 L TOTAL BILI (test code = 5411481912) 1.3 mg/dL 0.1-1.1 H CALCIUM (test code = 6647552846) 7.1 mg/dL 8.6-10.6 L T PROTEIN (test code = 0922487622) 5.1 g/dL 6.3-8.2 L ALBUMIN (test code = 0902935506) 2.5 g/dL 3.5-5.0 L ALK PHOS (test code = 8615865811) 80 U/L 34-122 Slight hemolysis ALTv (test code = 1742-6) 23 U/L 5-35 AST(SGOT) (test code = 0090821292) 56 U/L 13-40 H Slight hemolysis eGFR (test code = 5102217286) 196.3 mL/min/1.73m2 JASMYN (test code = JASMYN) [...] imaging tests). Lab Interpretation (test code = 67174-6) [facility]25[facility]59* Test Item Value Reference Range Interpretation Comme nts FOLATE SER (test code = 0994935977) 17.6 ng/mL 3.0-20.0 Biotin has been reported to cause a positive bias, interpret results relative to patient's use of biotin. Lab Interpretation (test code = 93424-5) Normal [facility] 22:46:37 ALCOHOL<10mg/dL11/10/2022 5:46 PM CDTUTMB LABORATORY SERVICESToxic Greater than or equal to 80 mg/dL. NOTE: Whole blood values are approximately 10% to 15% lower than serum and plasma.[facility] (77878)2022-11-10 22:45:51* Test Item Value Reference Range Interpretation Comme nts NA (test code = 6553429045) 145 mmol/L 135-145 K (test code = 7618662501) 3.6 mmol/L 3.5-5.0 CL (test code = 1437411847) 104 mmol/L 98-108 CO2 TOTAL (test code = 6957892621) 29 mmol/L 23-31 AGAP (test code = 1249751004) 12 2-16 BUN (test code = 0755472025) 20 mg/dL 7-23 GLUCOSE (test code = 2444271793) 75 mg/dL 70-110 CREATININE (test code = 4962809591) 0.62 mg/dL 0.50-1.04 TOTAL BILI (test code = 1630063946) 1.6 mg/dL 0.1-1.1 H CALCIUM (test code = 9850560133) 9.8 mg/dL 8.6-10.6 T PROTEIN (test code = 1965904562) 7.5 g/dL 6.3-8.2 ALBUMIN (test code = 7626505071) 4.4 g/dL 3.5-5.0 ALK PHOS (test code = 6724164158) 142 U/L 34-122 H ALTv (test code = 1742-6) 33 U/L 5-35 AST(SGOT) (test code = 8348375108) 65 U/L 13-40 H eGFR (test code = 9717265876) 111.6 mL/min/1.73m2 JASMYN (test code = JASMYN) [...] imaging tests). Lab Interpretation (test code = 06531-0) [facility] 22:45:51* Test Item Value Reference Range Interpretation Comme nts LIPASE (test code = 3603467543) 1920 U/L 0-220 H Lab Interpretation (test cod e = 44379-5) [facility]normal [facility] TEST, [id number] 22:44:22* Test Item Value Reference Range Interpretation Comme nts PREG SERUM (test code = 0641505423) Negative JASMYN (test code = JASMYN) Less than 10 IU/L. ?If low titer or ectopic is suspected, resubmit specimen in 48-72 hours. [facility] WITH [id number] 22:37:30* Test Item Value Reference Range Interpretation Comme nts WBC (test code = 6690-2) 5.72 See_Comment [Automated [employer] ge] The system which generated this result transmitted reference range: 4.30 - 11.10 10*3/?L. The reference range was not used to interpret this result as normal/abnormal. RBC (test code = 789-8) 3.93 See_Comment [Automated [employer] ge] The system which generated this result [...] 32.6 g/dL 31.6-35.1 RDW-SD (test code = 36561-3) 44.8 fL 39.0-49.9 RDW-CV (test code = 788-0) 11.8 % 12.0-15.5 L PLT (test code = 777-3) 255 See_Comment [Automated [employer] ge] The system which generated this result transmitted reference range: 166 - 358 10*3/?L. The reference range was not used to interpret this result as normal/abnormal. MPV (test code = 03968-4) 9.9 fL 9.5-12.9 NRBC/100 WBC (test code = 3948129955) 0.0 See_Comment [Automated [employer] ssage] The system which generated this result transmitted reference range: 0.0 - 10.0 /100 WBCs. The reference range was not used to interpret this result as normal/abnormal. NRBC x10^3 (test code = 3053453154) See_Comment [Automated messa ge] The system which generated this result transmitted reference range: 10*3/?L. The reference range was not used to interpret this result as normal/abnormal. GRAN MAT (NEUT) % (test code = 770-8) 63.5 % IMM GRAN % (test code = 7706898921) 0.30 % LYMPH % (test code = 736-9) 18.7 % MONO % (test code = 5905-5) 16.3 % EOS % (test code = 713-8) 0.2 % BASO % (test code = 706-2) 1.0 % GRAN MAT x10^3(ANC) (test code = 1698746622) 3.63 10*3/uL 1.88-7.09 IMM GRAN x10^3 (test code = 3040858903) 0.00-0.06 LYMPH x10^3 (test code = 731-0) 1.07 10*3/uL 1.32-3.29 L MONO x10^3 (test code = 742-7) 0.93 10*3/uL 0.33-0.92 H EOS x10^3 (test code = 711-2) 0.03-0.39 L BASO x10^3 (test code = 704-7) 0.06 10*3/uL 0.01-0.07 Lab Interpretation (test code = 51625-7) [facility] 08:56:59* Test Item Value Reference Range Interpretation Comme nts ALCOHOL (test code = 1811974957) 247 mg/dL JASMYN (test code = JASMYN) <10 Pcpznodv97-052 Toxic>100 Depression of WAXER OPERATOR>400 Fatalities Reported [facility] 07:38:50* Test Item Value Reference Range Interpretation Comme nts LIPASE (test code = 8339118349) 2559 U/L 0-220 H Lab Interpretation (test cod e = 78061-2) [facility]normal [facility] PANEL (95633)2022-11-06 07:21:05* Test Item Value Reference Range Interpretation Comme nts NA (test code = 4626494713) 137 mmol/L 135-145 K (test code = 6177275733) 3.4 mmol/L 3.5-5.0 L CL (test code = 6655716488) 96 mmol/L 98-108 L CO2 TOTAL (test code = 1837999926) 33 mmol/L 23-31 H AGAP (test code = 9634522511) 8 2-16 BUN (test code = 6380127940) 5 mg/dL 7-23 L GLUCOSE (test code = 2551202557) 97 mg/dL 70-110 CREATININE (test code = 3826356324) 0.50 mg/dL 0.50-1.04 TOTAL BILI (test code = 6549147296) 1.8 mg/dL 0.1-1.1 H CALCIUM (test code = 4808811760) 8.6 mg/dL 8.6-10.6 T PROTEIN (test code = 5086554484) 7.9 g/dL 6.3-8.2 ALBUMIN (test code = 2622281284) 4.2 g/dL 3.5-5.0 ALK PHOS (test code = 5920105117) 204 U/L 34-122 H ALTv (test code = 1742-6) 52 U/L 5-35 H AST(SGOT) (test code = 9668413624) 147 U/L 13-40 H eGFR (test code = 7878600007) 143.0 mL/min/1.73m2 JASMYN (test code = JASMYN) [...] imaging tests). Lab Interpretation (test code = 32713-8) Abnormal [facility] WITH [id number] 07:08:46* Test Item Value Reference Range Interpretation Comme nts WBC (test code = 6690-2) 6.07 See_Comment [Automated [employer]] The system which generated this result transmitted reference range: 4.30 - 11.10 10*3/?L. The reference range was not used to interpret this result as normal/abnormal. RBC (test code = 789-8) 4.32 See_Comment [Automated [employer] Sharypic] The system which generated this result transmitted [...] 35.0 g/dL 31.6-35.1 RDW-SD (test code = 20781-3) 41.7 fL 39.0-49.9 RDW-CV (test code = 788-0) 11.3 % 12.0-15.5 L PLT (test code = 777-3) 206 See_Comment [Automated [employer]] The system which generated this result transmitted reference range: 166 - 358 10*3/?L. The reference range was not used to interpret this result as normal/abnormal. MPV (test code = 76061-7) 10.1 fL 9.5-12.9 NRBC/100 WBC (test code = 5052973992) 0.0 See_Comment [Automated me ssage] The system which generated this result transmitted reference range: 0.0 - 10.0 /100 WBCs. The reference range was not used to interpret this result as normal/abnormal. NRBC x10^3 (test code = 9938616032) See_Comment [Automated messa ge] The system which generated this result transmitted reference range: 10*3/?L. The reference range was not used to interpret this result as normal/abnormal. GRAN MAT (NEUT) % (test code = 770-8) 68.0 % IMM GRAN % (test code = 7374415630) 0.30 % LYMPH % (test code = 736-9) 19.1 % MONO % (test code = 5905-5) 11.0 % EOS % (test code = 713-8) 0.3 % BASO % (test code = 706-2) 1.3 % GRAN MAT x10^3(ANC) (test code = 2751769628) 4.12 10*3/uL 1.88-7.09 IMM GRAN x10^3 (test code = 7065802102) 0.00-0.06 LYMPH x10^3 (test code = 731-0) 1.16 10*3/uL 1.32-3.29 L MONO x10^3 (test code = 742-7) 0.67 10*3/uL 0.33-0.92 EOS x10^3 (test code = 711-2) 0.03-0.39 L BASO x10^3 (test code = 704-7) 0.08 10*3/uL 0.01-0.07 H Lab Interpretation (test code = 75645-6) Abnormal [facility] [id number] 06:18:00* Test Item Value Reference Range Interpretation Comme nts POCT PREG (test code = 1605) Negative On board controls acceptable with C Line (test code = 3574) Yes Lab Interpretation (test cod e = 30764-3) [id number] 02:47:00* Test Item Value Reference Range Interpretation Comme nts POCT PREG (test code = 1605) negative Lab Interpretation (test cod e = 25168-8) Normal [facility] WITH [id number] 01:22:18* Test Item Value Reference Range Interpretation [...] 33.2 g/dL 31.6-35.1 RDW-SD (test code = 87996-9) 44.6 fL 39.0-49.9 RDW-CV (test code = 788-0) 12.2 % 12.0-15.5 PLT (test code = 777-3) See_Comment [Automated messa ge] The system which generated this result transmitted reference range: 166 - 358 10*3/?L. The reference range was not used to interpret this result as normal/abnormal. MPV (test code = 65400-8) 9.4 fL 9.5-12.9 L NRBC/100 WBC (test code = 2217410151) See_Comment [Automated me ssage] The system which generated this result transmitted reference range: 0.0 - 10.0 /100 WBCs. The reference range was not used to interpret this result as normal/abnormal. NRBC x10^3 (test code = 1466620100) See_Comment [Automated messa ge] The system which generated this result transmitted reference range: 10*3/?L. The reference range was not used to interpret this result as normal/abnormal. GRAN MAT (NEUT) % (test code = 770-8) 45.9 % IMM GRAN % (test code = 4304857341) 0.50 % LYMPH % (test code = 736-9) 40.2 % MONO % (test code = 5905-5) 10.9 % EOS % (test code = 713-8) 1.4 % BASO % (test code = 706-2) 1.1 % GRAN MAT x10^3(ANC) (test code = 7054226096) 1.69 10*3/uL 1.88-7.09 L IMM GRAN x10^3 (test code = 4306565882) 0.00-0.06 LYMPH x10^3 (test code = 731-0) 1.48 10*3/uL 1.32-3.29 MONO x10^3 (test code = 742-7) 0.40 10*3/uL 0.33-0.92 EOS x10^3 (test code = 711-2) 0.05 10*3/uL 0.03-0.39 BASO x10^3 (test code = 704-7) 0.04 10*3/uL 0.01-0.07 Lab Interpretation (test code = 36026-0) Abnormal [facility] METABOLIC PANEL (NA, K, CL, CO2, GLUCOSE, BUN, CREATININE, CA)2022-04-13 00:58:33* Test Item Value Reference Range Interpretation Comme nts NA (test code = 6311530493) 140 mmol/L 135-145 K (test code = 7233088112) 3.7 mmol/L 3.5-5.0 CL (test code = 9260675505) 98 mmol/L 98-108 CO2 TOTAL (test code = 9396972562) 34 mmol/L 23-31 H AGAP (test code = 2738750085) 2-16 BUN (test code = 3685747401) 11 mg/dL 7-23 GLUCOSE (test code = 6356438138) 79 mg/dL 70-110 CREATININE (test code = 5723908224) 0.62 mg/dL 0.50-1.04 CALCIUM (test code = 0047757998) 8.1 mg/dL 8.6-10.6 L eGFR (test code = 4791257835) mL/min/1.73m2 JASMYN (test code = JASMYN) Association [...] imaging tests). Lab Interpretation (test code = 44512-0) [facility] N[facility]K W/[id number] 21:37:00 [facility] 1990 Sex: F Name: ETHEL AMATO HCAJasbir Hussein : 1990 Age/S: 32 / F [address] Unit #: [id number] Loc: [place] [address] Phys: CodyShana KILN PACKER Acct: [id number] Dis Date: Status: REG ER PHONE #: [phone] Exam Date: 04/06/20222116 FAX #: Reason: PAIN EXAMS: CPT: [id number] CT NECK W/CONTRAST 73803 Location: H3 CT neck, 04/06/22 TECHNIQUE: CT examination of the neck was performed with IV contrast. Patient given non ionic IV contrast. 2D Reformatted images acquired sagittally and coronally on the CT workstation using MPR software by sand technologist. Scanning conducted in the axial plane contiguously from skull base through thoracic inlet. The examination was performed on a [facility] utilizing low-dose radiation technique. Automatic [...] #30 consistent with dental caries. Do not seean abscess in this patient. Disruption of the [...] 1 Signed Report (CONTINUED) Name: ETHEL AMATO : 1990 Age/S: 32 / F [address] Unit #: [id number] Loc: [place] [address] Phys: Shana Ross NP Acct: [id number] Dis Date: Status: REG ER PHONE #: [phone] Exam Date: 04/06/20222116 FAX #: Reason: PAIN EXAMS: CPT: [id number] CT NECK W/CONTRAST 13156 (Continued) at 2136 Reported and signed by: Cristina Arroyo M.D. CC: Shana Ross NP; Arnol Gonsalez MD Technologist:Eduar Medeiros, RT(R)(CT) CTDI: DLP: Trnscb Date/Time: 04/06/2022 (2136) [id number] Orig Print D/T: S: 04/06/2022 (2139) PAGE 2 Signed ReportCOMPREHENSIVE METABOLIC [id number] 20:53:00* Test Item Value Reference Range Interpretation [...] ALKP) 89 Unit/L 45-117 N CBC W/AUTO [id number] 20:25:00* Test Item Value Reference Range Interpretation [...] Interpretation Comme nts NA (test code = 0263666524) 141 mmol/L 135-145 K (test code = 5772660991) 3.9 mmol/L 3.5-5.0 CL (test code = 2309434771) 103 mmol/L 98-108 CO2 TOTAL (test code = 1269822195) 31 mmol/L 23-31 AGAP (test code = 6910405575) 2-16 BUN (test code = 9862594917) 12 mg/dL 7-23 GLUCOSE (test code = 3860304290) 85 mg/dL 70-110 CREATININE (test code = 8849165500) 0.56 mg/dL 0.50-1.04 CALCIUM (test code = 2994796773) 8.3 mg/dL 8.6-10.6 L eGFR (test code = 6966029398) mL/min/1.73m2 JASMYN (test code = JASMYN) Association [...] imaging tests). Lab Interpretation (test code = 37693-0) Abnormal [facility] History and Physical Notes Date/Time Note Provider Source 2023-11-06 18:52:25 Medicine History & Physical Date of Service: 11/06/2023 Pt presents from: Home CC: Intractable nausea vomiting History of Present Illness: Ethel Amato is a 33 year old female [...] Eduar Echevarria DO, 40 mg at 11/06/23 181 nicotine (NICODERM) 21 mg/24 hr patch 1 Patch, 1 Patch, Topical, Q24H, Eduar Echevarria DO, 1 Patch at 11/06/23 181 ondansetron (ZOFRAN (PF)) injection 4 mg, 4 [...] output data in the 24 hours ending 11/06/23 185 Physical Exam: General: NAD, Alert, lying in [...] of comfort: N/A Code Status: Full [place] 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 0 Result Notes Details Reading Physician Reading Date Result Priority Dao Qeuen MD [phone] [id number] 09/15/2023 STAT Narrative & Impression Provider: CECILE [...] of acute cardiopulmonary disease. 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 Medicine Intensive Care History and Physical Date of Service: 11/10/2022 ICU Admit date: 10/21/22 CHIEF COMPLAINT: Seizure due to ETOH withdrawal HISTORY OF PRESENT ILLNESS Ethel Amato is a 32 year old female with a PMH of ETOH use complicated by pancreatitis 11/06/22, bulimia nervosa, colon polyps due for GI follow up who presents for altered mental status and seizure activity in the setting of alcohol use. History obtained from . reports patient felt tired on Saturday and was admitted to [facility] on Saturday for a similar presentation. Pancreatitis [...] (!) 130/93 Pulse: 134 126 115 Resp: Temp: 36.8 ?C (98.3 ?F) SpO2: 99% 98% Weight: 49 kg (108 lb) General: Unable to respond to verbal Cardio: sinus tachy, S1 S2 appreciated, no mrg, no JVD Resp: CTABL Abd: soft, non tender, no hepatosplenomegaly, Ext: No LE edema, no calf tenderness Assessment/Plan: Ethel Amato is a 32 year old female [...] followed up with GI. Was admitted to [facility] on 11/06 for pancreatitis and ETOH withdrawal and discharged 11/07. -Outpatient GI follow up -NPO and fluids for now Other ICU packet: Ventilation / Pressors Sedation / Paralyzation -monitor Lines/Catheters, exchange prn DIET: NPO Except Meds Diet. DVT ppx- Heparin, prophylactic Code Status: FULL Jeremy Velez MD, SARINA Internal Medicine, PGY- 3 Associated attestation - Dahiana Robertson MD - 11/11/2022 9:23 AM CDT I saw and examined this pt and case discussed with Dr. Amato on rounds this morning and I agree with the presentation, assessment, and plan from 11/11/2022. I have also reviewed the H&P by Dr. Velez and I agree with the history, physical examination, assessment and plan from the 11/10/22 admission. Ethel Amato is a 32 year old female admitted with Seizure d/t ETOH withdrawal AMS d/t #1 Poor po with recent pancreatitis admission a/w hypoglycemia, hypoalb PLAN: Ensure adequate fluid provide electrolyte replacement as needed thiamine* 100 to 200 mg and glucose daily multivitamin containing or supplemented with folic acid Ensure adequate caloric support Dahiana Robertson MD Professor Division of Pulmonary & Critical Care Medicine Interventional Pulmonology, Scarfer Operator Doctor # [id number] [phone] [facility] 2022-11-06 05:35:54 Formatting of this n ote is different from the original. 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 RL: 1105 AFC: [id number] ABDOMEN PELVIS W CONTRAST Narrative Ordering physician: [...] infiltration of the liver. RL: 460 AFC: [id number] SSMENT: 1. Acute pancreatitis secondary to alcohol abuse 2. Alcoholic liver disease 3. Macrocytic anemia 4. History of hypertension 5. History of constipation 6. h/o of ADD 7. History of tobacco abuse PLAN: -aggressive IV hydration -IV antibiotics -n.p.o. 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 [place] [employer]OTTER was verified during stay William Castorena MD [facility]
[2024-04-04 11:16] LABS: Absolute Eosinophils 0.1 K/uL (0-0.5); Absolute Lymphocytes (CBC) 1.2 K/uL (0.7-4.9); Absolute Monocytes 0.3 K/uL (0.1-1.3); Absolute Neutrophil 1.4 K/uL (1.8-8.0); Basophils % 0.7 % (0-1.3); Eosinophils % 3.2 % (0-4.4); Hematocrit 35.4 % (36.0-45.0); Hemoglobin 11.7 g/dL (12.0-15.0); Lymphocytes % 39.6 % (15.3-44.8); MPV 7.6 fL (7.6-11.3); Monocytes % 11.2 % (3.3-12.3); Neutrophils % 45.3 % (41.7-73.7); Platelets 107 thou/uL (152-406); RBC Red Blood Cell Count 3.89 M/uL (3.86-4.86); Red Cell Distribution Width 16.3 % (12.1-15.2)
[2024-04-04 11:21] LABS: Specific Gravity 1.011 (1.005-1.030); Sqamous Epithelial <5 /HPF (None Seen); Urine Bacteria <20 /HPF (<20); Urine Bilirubin NEGATIVE (Negative); Urine Blood Negative (Negative); Urine Clarity Turbid (Clear); Urine Color Yellow (Yellow); Urine Culture Reflex Order NOT NEEDED; Urine Glucose NEGATIVE (Negative); Urine Ketones NEGATIVE (Negative); Urine Microscopic Reflex YN ORDER UMIC; Urine Mucus 2+ /HPF (None Seen); Urine Nitrite NEGATIVE (Negative); Urine Protein NEGATIVE (Negative); Urine RBC None Seen /HPF (None Seen); Urine Urobilinogen Normal (Normal); Urine WBC <5 /HPF (<5)
[2024-04-04 12:05] LABS: Barbiturates NEGATIVE (NEGATIVE); Benzodiazepines NEGATIVE (NEGATIVE); Cocaine NEGATIVE (NEGATIVE); METHAMPHETAM NEGATIVE (NEGATIVE); Methadone NEGATIVE (NEGATIVE); Opiates NEGATIVE (NEGATIVE); Phencyclidine NEGATIVE (NEGATIVE); THC Cannibis NEGATIVE (NEGATIVE)
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
[2024-04-04 18:55] VITALS: BP 129/89; TEMP 98; O2SAT 98
== END 2024-04-04 18:22 | disposition left against medical advice (07) ==
LOC: ER 10:02
DX: E87.6 Hypokalemia (principal); F10.129 Alcohol abuse with intoxication, unspecified; G50.1 Atypical facial pain; W10.1XXA Fall (on)(from) sidewalk curb, initial encounter; Y04.2XXA Assault by strike against or bumped into by another person, initial encounter
CPT/HCPCS: 36415; 80048; 80307; 81001; 82077; 85025; 99283

== ENCOUNTER 2024-04-15 18:31 | Emergency (ER) | payer OTHER ==
--- OUTSIDE RECORDS SUMMARY | 2024-04-15 18:42 | XMS REPORT | Continuity of Care Document ---
Author Name Unknown Address [address] [facility] [address] [place] [address] [facility] thconnect Address [address] [facility]. [address] [place] [address] Care Team Providers Care Fur Repairer Name Role Phone LIZ MALAGON Primary Care Physician Unavailab Liz Pimentel Attending Clinician Unavailable CATHIE ROSS Attending Clinician UnavailMICHELLE Long Attending Clinician Unavailable MICHELLE PATIÑO Attending Clinician Unavailable Haroon FILTER CHANGER, Michelle Attending Clinician + [phone] VALERIA HERNANDEZ Attending Clinician Unavaila Valeria Love Attending Clinician + [phone] CLEMENTINA MARROQUIN Attending Clinician Unavailab CLEMENTINA Tang Attending Clinician Unavailab orly Marroquin DOClementina Attending Clinician +[phone] CATHIE ROSS Attending Clinician UnavailCathie Tomas MD Attending Clinician [phone] REJI JOHANSEN Attending Clinician Unavailable REJI JOHANSEN Attending Clinician Unavailable Reji Johansen MD Attending Clinician +[phone] KANDY CHAVEZ Attending Clinician Unavailable KANDY CHAVEZ Attending Clinician Unavailable Kandy Sanchez Attending Clinician +[phone] TRINO ASHFORD Attending Clinician Unavailable TRINO ASHFORD Attending Clinician Unavailable Trino Ashford MD Attending Clinician +[phone] KRISTA CABRERA Attending Clinician Unavailable KRISTA CABRERA Attending Clinician Unavailable Krista Cabrera MD Attending Clinician +[phone] Jonelle Connell DO Attending Clinician +69 NBA BALDERAS Attending Clinician Unavailab Lauren Davila MA Attending Clinician Un available DAO GOEL Attending Clinician Unavailable DAO GOEL Attending Clinician Unavailable Alyssia Miranda MD Attending Clinician + SOLO DEVI Attending Clinician Unavailable Eduar Echevarria DO Attending Clinician +[phone] Solo Devi MD Attending Clinician +[phone] JONELLE CONNELL Attending Clinician Unavailable JONELLE CONNELL Attending Clinician Unavailable Zoë Singletary NP Attending Clinician + ZOË SINGLETARY Attending Clinician Unavailable Jose Domínguez Alyssa Attending Clinician [phone] CECILE RANGEL Attending Clinician Unavailable Juan Carlos HASSANP, Cecile Attending Clinician [phone] ELENO OLMSTEAD Attending Clinician Unavailable ELENO OLMSTEAD Attending Clinician Unavailable Heladio HASSANP, Tayaelaine Attending Clinician +[phone] Doctor Unassigned, [place] Attending Clinician U navailable RETA LEIJA Attending Clinician Unavailable Unknown, Attending Attending Clinician Unavailab Thelma Hernandez LVN Attending Clinician +[phone] WILLIAM CASTORENA Attending Clinician Unavailyfn Castorena MD, William Nolasco Attending Clinician +[phone] Jacob Jacobs Attending Clinician Unavaila PAGE Maria Attending Clinician Unavailable Da STUBBS, Page Attending Clinician +[phone] JUAN CHAVEZ Attending Clinician Unavail able Adelina Judge MD Attending Clinician +[phone] Dahiana Robertson MD Attending Clinician +[phone] Juan Chavez MD Attending Clinician +[phone] EDUAR ECHEVARRIA Attending Clinician Unavailable NICK BEST Attending Clinician Unavailable Estephania HASSANP, Nick Sanders Attending Clinician +[phone] EDY, RAVINDER Attending Clinician Unavailable Chula NAVARRETE Attending Clinician Unavailable Chula NAVARRETE Attending Clinician Unavailable Lacey Suggs MD Attending Clinician [phone] Oral Surgery, Oral Attending Clinician Unavailab Jose Loredo Attending Clinician Unavailable Jian Salvador Attending Clinician Unavailable BALDEV ALARCON Attending Clinician Unavailable Baldev Milian S Attending Clinician [phone] TREVON CORTES Attending Clinician Unavailab Kerrie Bliss S Attending Clinician +[phone] KERRIE JUDGE Attending Clinician Unavailable Cathie Ross MD Attending Clinician [phone] JACQUELINE SHIN Attending Clinician Unavailable Josafat HASSANP, Jacqueline Attending Clinician +[phone] Edy STUBBS, Afaq Attending Clinician +[phone] Pob, Adc Lab Main Attending Clinician Unavailabl e Only, Adc Test Attending Clinician Unavailable Horace FILTER CHANGER, Consuelo Attending Clinician +[phone] EBRAJESH ELLISON Attending Clinician Unavailable Ebrahim FILTER CHANGER, Rania Attending Clinician [phone] Visit, Ang-Rmchp Nurse Attending Clinician Unava ilable Cortes FILTER CHANGER, Trevon R Attending Clinician + [phone] Akinsipe WHCNP, Pratima Shore Attending Clinician + AKINPRATIMA NORRIS Attending Clinician Unavail able SANGITA_MARI_Wallace_G Attending Clinician Unavail able COSME MARIE Attending Clinician Unava ilable Ryan FILTER CHANGER, Cosme Attending Clinician + Nerissa HOFF, Zakiya Sanders Attending Clinician Unavailab le Only, Ang Db Test Attending Clinician Unavailabl e Franki FILTER CHANGER, Miley Attending Clinician [phone] MILEY CHANG Attending Clinician Unavailable YanivJulisa rosales DO Attending Clinician + [phone] Marin HOFF, Tiff Moreno Attending Clinician +[phone] CHAD MORAN Attending Clinician Unavailabl nargis Espana MD, [place] Damian Attending Clinician + [phone] Chad Moran MD Attending Clinician [phone] Marisabel Collins MD Attending Clinician +[phone] Provider, [facility] Attending Clinician Un available Kelly Cooley Attending Clinician [phone] Jennifer Sher MD Attending Clinician +[phone] Radiology Attending Clinician Unavailable RADIOLOGY Attending Clinician Unavailable JENNIFER SHER Attending Clinician Unavailable KELLY PEREZ Attending Clinician Unavailable Shola FILTER CHANGER, Sabra Attending Clinician +[phone] SABRA SORTO Attending Clinician Unavailable Carrington HASSANP, Brandi Casanova Attending Clinician + [phone] Eliezer Watts MD Attending Clinician +[phone] Reji Leahy MD Attending Clinician +[phone] CATHIE ROSS Admitting Clinician Unavailabl MICHELLE Hussein Admitting Clinician Unavailable VALERIA HERNANDEZ Admitting Clinician Unavaila KANDY Blackman Admitting Clinician Unavailable TRINO ASHFORD Admitting Clinician Unavailable NBA BALDERAS Admitting Clinician Unavailab EDUAR So Admitting Clinician Unavailable Eduar Echevarria DO Admitting Clinician +[phone] SOLO DEVI Admitting Clinician Unavailable Solo Devi MD Admitting Clinician +[phone] CECILE RANGEL Admitting Clinician Unavailable ELENO OLMSTEAD Admitting Clinician Unavailable WILLIAM CASTORENA Admitting Clinician UnavailWilliam Serrano MD Admitting Clinician [phone] Arnol Gonsalez Admitting Clinician Unavailab DAHIANA Arteaga Admitting Clinician Unavailable Dahiana Robertson MD Admitting Clinician +[phone] NICK BEST Admitting Clinician Unavailable LACEY SUGGS Admitting Clinician Unavailable Cathie Ross MD Admitting Clinician +[phone] _[facility]_Wallace_Charisse Admitting Clinician Unavail able MARISABEL COLLINS Admitting Clinician Unavailable Marisabel Collins MD Admitting Clinician +[phone] BALDEV ALARCON Admitting Clinician Unavailable SABRA SORTO Admitting Clinician Unavailable Payers Payer Name Policy Type Policy Number Effective Date Expirati on Date Source [facility] MEDICAID [id number] 2016 00:00:00 [place] [facility] [id number] 2024 00:00:00 [place] [id number] 2023 00:00:00 [facility] [id number] 2022 00:00:00 2023 00:00:00 [facility] [id number] 2019 00:00:00 [facility] [id number] 2019 00:00:00 [facility] [id number] 2019 00:00:00 [facility] [id number] 2019 00:00:00 [facility] Problems Condition Name Condition Details Condition Category Status Onset Date Resolution Date Last Treatment Date Treating Clinician Comments Source Alcohol withdrawal syndrome without complicati on Alcohol withdrawal syndrome without complicati on Disease Active -17 00:00: 00 [facility] Nausea and vomiting, unspecifie d vomiting type Nausea and vomiting, unspecifie d vomiting type Disease Active 5-30 00:00: 00 [facility] Alcohol withdrawal syndrome, with delirium Alcohol withdrawal syndrome, with delirium Disease Active 1-03 00:00: 00 [facility] E44.0 Moderate protein calorie malnutriti on E44.0 Moderate protein calorie malnutriti on Disease Active 11-12 00:00: 00 [facility] Alcohol abuse Alcohol abuse Disease Active 11-10 00:00: 00 [facility] Flank pain Flank pain Disease Active 18 00:00: 00 [facility] Closed dislocatio n of fifth metacarpal bone of right hand Closed dislocatio n of fifth metacarpal bone of right hand Disease Active 11-08 00:00: 00 Overview: Formattin g of this note might be different from the original. Added automatic ally from request for surgery [id number] [facility] Closed dislocatio n of fifth metacarpal bone of right hand Closed dislocatio n of fifth metacarpal bone of right hand Disease Active 11-08 00:00: 00 Overview: Formattin g of this note might be different from the original. Added automatic ally from request for surgery [id number] [facility] Other general counseling and advice for contracept luna management Other general counseling and advice for contracept luna management Disease Active 3-24 00:00: 00 [facility] Underwazalia t Jesus t Disease Active 07-13 00:00: 00 [facility] History of anorexia nervosa History of anorexia nervosa Disease Active 07-13 00:00: 00 Overview: Formattin g of this note might be different from the original. Reports currently see therapist [facility] Alcohol withdrawal syndrome with perceptual disturbanc e Alcohol withdrawal syndrome with perceptual disturbanc e Disease Active 2020-04 00:00: 00 [facility] Hypokalemi a Hypokalemi a Disease Active 2020-04 00:00: 00 [facility] ETOH abuse ETOH abuse Disease Active 08-16 00:00: 00 [facility] E46 Unspecifie d severe protein-ca evette malnutriti on E46 Unspecifie d severe protein-ca evette malnutriti on Disease Active 08-16 00:00: 00 [facility] H/O hernia repair H/O hernia repair Disease Active 08-21 00:00: 00 [facility] Hiatal hernia Hiatal hernia Disease Active 08-21 00:00: 00 [facility] [id number] History of alcohol abuse Problem [facility] [id number] Tobacco use disorder Problem [facility] [id number] Constipati on, unspecifie d constipati on type Problem [facility] [id number] Allergic rhinitis, unspecifie d seasonalit y, unspecifie d trigger Problem [facility] [id number] Mass of chest wall Problem [facility] Attention deficit hyperactiv ity disorder, predominan tly inattentiv e type Attention deficit hyperactiv ity disorder (ADHD), predominan tly inattentiv e type Problem [facility] [id number] GERD without esophagiti s Problem [facility] [id number] Hypercalce manav Problem [facility] [id number] Iron deficiency anemia, unspecifie d iron deficiency anemia type Problem [facility] [id number] Enlarged thyroid Problem [facility] [id number] Abnormal finding on imaging Problem [facility] Intractabl e nausea and vomiting Intractabl e nausea and vomiting Disease Resolve d 4-27 00:00: 00 2021-07-13 00:00:00 2021-07-13 09:24:51 [facility] Rh negative status during Rh negative status during Disease Resolve d 5 00:00: 00 2021-07-13 00:00:00 2021-07-13 09:25:04 [facility] Supervisio n of high risk , antepartum , first trimester Supervisio n of high risk , antepartum , first trimester Disease Resolve d 08-21 00:00: 00 2021-07-13 00:00:00 2021-07-13 09:25:05 [facility] Missed menses Missed menses Disease Resolve d 08-21 00:00: 00 2021-07-13 00:00:00 2021-07-13 09:25:08 [facility] Multiparit y Multiparit y Disease Resolve d 08-21 00:00: 00 2021-07-13 00:00:00 2021-07-13 09:24:54 [facility] Tobacco use in , unspecifie d trimester Tobacco use in , unspecifie d trimester Disease Resolve d 08-21 00:00: 00 2021-07-13 00:00:00 2021-07-13 09:25:07 [facility] Needs flu shot Needs flu shot Disease Resolve d 5 00:00: 00 2021-07-13 00:00:00 2021-07-13 09:24:56 [facility] History of labor History of labor Disease Resolve d 5 00:00: 00 2021-07-13 00:00:00 2021-07-13 09:24:49 [facility] Allergies, Adverse Reactions, Alerts Allergy Name Allergy Type Status Severity Reaction(s) Onset Date Inactive Date Treating Clinician Comments Source No Known Allergie s DA Active [facility] 2016[facility]:00[facility] NO KNOWN ALLERGIE S Drug Class Active [facility] [address] Drug allergy Active Muscle Atrophy [facility] Social History Social Habit Start Date Stop Date Quantity Comments Source Gender identity [facility] Sexual orientation [facility] History of tobacco use Cigarette Smoker [facility] Sex Assigned At [facility] Alcoholic beverage intake 2024-03-30 00:00:00 2024-03-30 00:00:00 Current drinker of alcohol (finding) [facility] History of Social function 2024-01-03 00:00:00 2024-01-03 00:00:00 [facility] Tobacco Comment 2023-11-06 00:00:00 2023-11-06 00:00:00 Currently vapes nicotine [facility] Alcohol Comment 2023-11-06 00:00:00 2023-11-06 00:00:00 last drink 4-5 shots yesterday [facility] Tobacco use and exposure 2023-11-06 00:00:00 2023-11-06 00:00:00 Former smokeless tobacco user [facility] Alcohol intake 2023-04-30 00:00:00 2023-04-30 00:00:00 Current non-drinker of alcohol (finding) [facility] Exposure to SARS-CoV-2 (event) 2022-08-17 00:00:00 2022-08-27 20:37:00 Not sure [facility] Cigarettes smoked current (pack per day) - Reported 2018-11-05 00:00:00 2018-11-05 00:00:00 [facility] Smoking Status Start Date Stop Date Source Ex-smoker 2023-11-06 00:00:00 2023-11-06 00:00:00 [facility] Current Smoker 2023-06-07 00:00:00 [facility] Medications Ordered Medication Name Filled Medication Name Start Date Stop Date Current Medication? Ordering Clinician Indication Dosage Frequency Signature (SIG) Comments Components Source NaCl 0.9% (NS) IV infusion 1,000 mL 2023-04 08:30: 00 04-05 09:30 :00 No 1000mL at 999 mL/hr, Intravenou s, ONCE, 1 dose, On 04/05/24 at 0230, [facility] acetaminoph en (TYLENOL) tablet 650 mg 2023-04 07:45: 00 04-05 07:42 :00 No 650mg 650 mg, Oral, ONCE, 1 dose, On 04/05/24 at 0145, [facility] iopamidol (ISOVUE 370-500 mL) injection 75 mL 2023-04 07:45: 00 04-05 07:45 :00 No [id number] 75mL 75 mL, Intravenou s, ONCE, 1 dose, On 04/05/24 at 0145, Routine [facility] ondansetron (ZOFRAN (PF)) injection 4 mg 2023-04 05:45: 00 04-05 05:46 :00 No 4mg 4 mg, Slow IV Push, ONCE, 1 dose, On 04/04/24 at 2345, Administer over 2-5 Minutes, 2 mL [facility] NaCl 0.9% (NS) IV infusion 1,000 mL 2023-04 05:32: 00 04-05 07:43 :00 No 1000mL at 999 mL/hr, Intravenou s, ONCE, 1 dose, On 04/04/24 at 2345, [facility] sodium chloride (NS) injection 5 mL 2023-04 05:12: 47 Yes 5mL 5 mL, Intravenou s, PRN, Starting on 04/04/24 at 2312, Until Discontinu ed, Routine, IV line flushing [facility] HYDROcodone -acetaminop hen (NORCO 5) tablet 1 tablet 2023-04 02:30: 00 03-31 01:53 :00 No 1{tbl} 1 tablet, Oral, ONCE, 1 dose, On Sat03/30/24 at 2030, [facility] ondansetron (ZOFRAN-ODT ) disintegrat ing tablet 4 mg 2023-04 01:45: 00 03-31 01:53 :00 No 4mg 4 mg, Oral, ONCE, 1 dose, On Sat03/30/24 at 2000, Routine [facility] ondansetron (ZOFRAN-ODT ) disintegrat ing tablet 4 mg 2023-04 10:15: 00 03-30 09:28 :00 No 4mg 4 mg, Oral, ONCE, 1 dose, On Sat03/30/24 at 0415, Routine [facility] ibuprofen (IBU) tablet 600 mg 2023-04 09:15: 00 03-30 09:24 :00 No 600mg 600 mg, Oral, ONCE, 1 dose, On Sat03/30/24 at 0315, [facility] cephALEXin 500 mg capsule 2023-04 00:00: 00 04-07 05:59 :00 Yes [id number] 500mg Take 1 capsule by mouth in the morning and 1 capsule in the evening. Do all this for 7 days. [facility] methocarbam oL (ROBAXIN) tablet 1,000 mg 2023-04 0-06 19:30: 00 01-25 20:18 :00 No 1000mg 1,000 mg, Oral, ONCE, 1 dose, On 01/26/24 at 1430[facility] 600 mg 2023-04 0-06 19:30: 00 01-25 20:18 :00 No 600mg 600 mg, Oral, ONCE, 1 dose, On 01/26/24 at 1430, [facility] methocarbam oL 750 mg tablet 2023-04 0-06 00:00: 00 Yes [id number] 750mg Take 1 tablet by mouth 3 (three) times daily as needed (body aches). [facility] fentanyl PF (SUBLIMAZE (PF)) injection 50 mcg 12-27 02:00: 00 12-27 02:00 :00 No 50ug 50 mcg, Intramuscu lar, ONCE, 1 dose, On Sat12/27/23 at 2100, Routine [facility] HYDROcodone -acetaminop hen (NORCO 5) tablet 1 tablet 12-26 21:15: 00 12-26 21:55 :00 No 1{tbl} 1 tablet, Oral, ONCE, 1 dose, On Sat12/27/23 at 1615, CECILIA [facility] HYDROcodone -acetaminop hen (NORCO) 10-325 mg tablet 1 tablet 12-15 12:15: 00 12-15 11:26 :00 No 1{tbl} 1 tablet, Oral, ONCE NOW, 1 dose, On Sat12/16/23 at 0715, Routine [facility] traMADoL (ULTRAM) 50 mg tablet 12-15 00:00: 00 Yes [id number] 50mg Take 1 tablet by mouth every 6 (six) hours as needed for Pain (scale 7-10). Indication s: acute pain [facility] magnesium sulfate in water 2 gram/50 mL (4 %) infusion 2 g 12-07 21:45: 00 12-07 21:30 :00 No 2g 2 g, IV Piggyback, Administer over 60 Minutes, ONCE, 1 dose, On Sat12/08/23 at 1645, CECILIA [facility] thiamine (VITAMIN B1) 100 mg in NaCl 0.9% (NS) piggyback 12-07 20:30: 00 12-07 21:01 :00 No 100mg IV Piggyback, ONCE, 1 dose, On Sat12/08/23 at 1530, 50 mL [facility] LORazepam (ATIVAN) tablet 1 mg 12-07 20:00: 00 12-07 20:03 :00 No 1mg 1 mg, Oral, ONCE, 1 dose, On Sat12/08/23 at 1500, CECILIA [facility] magnesium oxide 400 mg (241.3 mg magnesium) tablet 12-07 00:00: 00 Yes [id number] 800mg Take 2 tablets by mouth in the morning. [facility] chlordiazeP OXIDE 25 mg capsule 12-07 00:00: 00 Yes [id number] 100mg Take 4 capsules by mouth in the morning and 4 capsules at noon and 4 capsules in the evening. [facility] diphenhydrA MINE (BENADRYL) tablet 25 mg 12-05 08:30: 00 12-05 08:21 :00 No 25mg 25 mg, Oral, ONCE, 1 dose, On Sat12/06/23 at 0330, [facility] LORazepam (ATIVAN) tablet 1 mg 12-05 07:00: 00 12-05 06:58 :00 No 1mg 1 mg, Oral, ONCE, 1 dose, On Sat12/06/23 at 0200, [facility] LORazepam (ATIVAN) tablet 1 mg 12-04 05:00: 00 12-04 05:05 :00 No 1mg 1 mg, Oral, ONCE, 1 dose, On Sat12/05/23 at 0000, [facility] NaCl 0.9% (NS) bolus infusion 1,000 mL 12-04 04:45: 00 12-04 04:50 :00 No 1000mL at 999 mL/hr, 1,000 mL, IV Infusion, ONCE, 1 dose, On Sat12/04/23 at 2345, [facility] Lidocaine (LIDOCARE) 4 % patch 1 Patch 11-21 18:15: 00 11-22 06:14 :00 No 1{patch } 1 Patch, Topical, Administer over 12 Hours, ONCE, 1 dose, On Sat11/22/23 at 1315, Routine [facility] NaCl 0.9% (NS) bolus infusion 1,000 mL 11-21 18:15: 00 11-21 19:21 :00 No 1000mL at 999 mL/hr, 1,000 mL, IV Infusion, ONCE, 1 dose, On Sat11/22/23 at 1315, [facility] ketorolac (TORADOL) injection 30 mg 11-21 17:40: 00 11-21 17:52 :00 No 30mg 30 mg, Slow IV Push, ONCE, 1 dose, On Sat11/22/23 at 1245, Routine [facility] proCHLORper azine (COMPAZINE) 10 mg in NaCl 0.9% (NS) piggyback 11-21 17:30: 00 11-21 18:24 :00 No 10mg 10 mg, IV Piggyback, at 100 mL/hr Administer over 30 Minutes, ONCE, 1 dose, On Sat11/22/23 at 1230, Routine [facility] methocarbam oL (ROBAXIN) tablet 1,000 mg 11-21 17:30: 00 11-21 17:56 :00 No 1000mg 1,000 mg, Oral, ONCE, 1 dose, On Sat11/22/23 at 1230, CECILIA [facility] metoprolol tartrate (LOPRESSOR) tablet 25 mg 11-08 14:15: 00 Yes 25mg 25 mg, Oral, BID, First dose on 11/09/23 at 0915, Until Discontinu ed, Routine [facility] oxazepam (SERAX) capsule 15 mg 11-08 06:01: 04 11-09 06:14 :00 No 15mg 15 mg, Oral, Q12H TAPER, 2 doses, First dose on 11/09/23 at 0115, Last dose on Sat11/09/23 at 1315, Routine [facility] metoprolol tartrate 25 mg tablet 11-08 00:00: 00 12-09 04:59 :00 No [id number] 25mg Take 1 tablet by mouth in the morning and 1 tablet in the evening. Do all this for 30 days. [facility] KCL (KLOR-CON M20) tablet 20 mEq 11-07 23:00: 00 11-07 22:58 :00 No 20meq 20 mEq, Oral, ONCE, 1 dose, On Sat11/08/23 at 1800, Routine [facility] diphenhydrA MINE (BENADRYL) tablet 25 mg 11-07 13:03: 50 Yes 25mg 25 mg, Oral, Q6HPRN, Starting on Sat11/08/23 at 0803, Until Discontinu ed, Routine, Itching [facility] phosphorus (K PHOS NEUTRAL) tablet 1 tablet 11-07 13:00: 00 11-09 12:59 :00 No 250mg 1 tablet (250 mg), Oral, BID, 4 doses, First dose on Sat11/08/23 at 0800, Last dose on Sat11/09/23 at 2000, Routine [facility] magnesium sulfate in water 2 gram/50 mL (4 %) infusion 2 g 11-07 13:00: 00 11-07 14:34 :00 No 2g 2 g, IV Piggyback, Administer over 60 Minutes, ONCE, 1 dose, On Sat11/08/23 at 0800, Routine [facility] potassium phosphate 30 mmol in NaCl 0.9% (NS) 500 mL piggyback 11-07 13:00: 00 11-07 20:30 :00 No 30mmol 30 mmol, IV Piggyback, ONCE, 1 dose, On Sat11/08/23 at 0800, 500 mL [facility] HYDROmorpho ne (DILAUDID) injection 0.5 mg 11-07 10:45: 00 11-07 10:31 :00 No .5mg 0.5 mg, Slow IV Push, ONCE, 1 dose, On Sat11/08/23 at 0545, Routine, Is this medication approved by a Faculty level provider? Yes, engineering faculty member approving Restricted medication : WILLIAM CASTORENA [facility] traMADoL (ULTRAM) tablet 50 mg 11-07 01:50: 29 Yes 50mg 50 mg, Oral, Q6HPRN, Starting on Sat11/07/23 at 2050, Until Discontinu ed, Routine, Pain (scale 4-6) [facility] FENTanyl PF (SUBLIMAZE (PF)) injection 25 mcg 11-07 01:29: 16 Yes 25ug 25 mcg, Slow IV Push, Q4HPRN, Starting on Sat11/07/23 at 2029, Until Discontinu ed, Routine, Pain (scale 7-10) [facility] NaCl 0.9% (NS) IV infusion 1,000 mL 11-07 00:30: 00 11-07 13:51 :28 No 1000mL at 75 mL/hr, IV Infusion, CONTINUOUS , Starting on Sat11/07/23 at 1930, Until Sat11/08/23 at 0851, [facility] sodium [facility] 15 mmol in NaCl 0.9% (NS) 250 mL piggyback 11-06 14:45: 00 11-06 19:18 :00 No 15mmol 15 mmol, IV Piggyback, ONCE, 1 dose, On Sat11/07/23 at 0945, Administer over 4 Hours, 250 mL [facility] thiamine mononitrate (VITAMIN B-1 (MONONITRAT E)) tablet 100 mg 11-06 14:00: 00 Yes 100mg 100 mg, Oral, DAILY, First dose on Sat11/07/23 at 0900, Until Discontinu ed, Routine [facility] foLIC acid (FOLATE) tablet 1 mg 11-06 14:00: 00 Yes 1mg 1 mg, Oral, DAILY, First dose on Sat11/07/23 at 0900, Until Discontinu ed, Routine [facility] pantoprazol e (PROTONIX) EC tablet 40 mg 11-06 13:00: 00 Yes 40mg 40 mg, Oral, BID, First dose on Sat11/07/23 at 0800, Until Discontinu ed, Routine [facility] sucralfate (CARAFATE) tablet 1 g 11-06 02:00: 00 Yes 1g 1 g, Oral, AC+HS, First dose on Sat11/06/23 at 2100, Until Discontinu ed, Routine [facility] magnesium sulfate in water 2 gram/50 mL (4 %) infusion 2 g 11-06 01:30: 00 11-06 02:48 :00 No 2g 2 g, IV Piggyback, Administer over 60 Minutes, ONCE, 1 dose, On Sat11/06/23 at 2030, CECILIA [facility] oxazepam (SERAX) capsule 15 mg 11-06 00:01: 04 Yes 15mg 15 mg, Oral, Q4HPRN, Starting on Sat11/06/23 at 1901, Until Discontinu ed, Routine, Only while awake for DBP equal to or greater than 100, HR equal to or greater than 100. [facility] nicotine (NICODERM) 21 mg/24 hr patch 1 Patch 11-06 00:00: 00 Yes 1{patch } 1 Patch, Topical, Administer over 24 Hours, Q24H, First dose on Sat11/06/23 at 1900, Until Discontinu ed, Routine [facility] pantoprazol e (PROTONIX) injection 40 mg 11-05 23:45: 00 11-05 23:08 :00 No 40mg 40 mg, Slow IV Push, ONCE, 1 dose, On Sat11/06/23 at 1845 [facility] ondansetron (ZOFRAN (PF)) injection 4 mg 11-05 22:47: 22 Yes 4mg 4 mg, Slow IV Push, Q6HPRN, Nausea and Vomiting (N/V), Starting on Sat11/06/23 at 1747, Doses of ondansetro n 16 mg and above need to be administer ed via IV piggyback. For Dose >=24mg ECG monitoring is advisable. [facility] enoxaparin (LOVENOX) injection 40 mg 11-05 22:00: 00 Yes 40mg 40 mg, Subcutaneo us, DAILY, First dose on Sat11/06/23 at 1700, Until Discontinu ed, Routine [facility] D5W 0.45% NaCl (1/2NS) 1 L + KCL 20 mEq 11-05 20:45: 00 11-06 13:45 :29 No Intravenou s, at 125 mL/hr, CONTINUOUS , Starting on Sat11/06/23 at 1545, Until [place] 11/07/23 at 0845, [facility] NaCl 0.9% (NS) bolus infusion 1,000 mL 11-05 20:00: 00 11-05 20:14 :00 No 1000mL at 999 mL/hr, 1,000 mL, IV Infusion, ONCE, 1 dose, On Sat11/06/23 at 1500, STAT [facility] thiamine (VITAMIN B1) injection 100 mg 11-05 18:45: 00 11-05 18:55 :00 No 100mg 100 mg, Slow IV Push, ONCE, 1 dose, On Sat11/06/23 at 1345, [facility] ondansetron (ZOFRAN (PF)) injection 4 mg 10-27 14:45: 00 10-27 14:42 :00 No 4mg 4 mg, Slow IV Push, ONCE, 1 dose, On Sat10/28/23 at 0945, [facility] NaCl 0.9% (NS) IV infusion 1,000 mL 10-27 09:45: 00 Yes 1000mL at 150 mL/hr, Intravenou s, CONTINUOUS , Starting on Sat10/28/23 at 0445, Until Discontinu ed, Routine [facility] ondansetron (ZOFRAN-ODT ) disintegrat ing tablet 4 mg 10-18 17:00: 00 10-18 16:15 :00 No 4mg 4 mg, Oral, ONCE, 1 dose, On 10/19/23 at 1200, Routine [facility] hydrOXYzine (ATARAX) tablet 25 mg 10-18 16:00: 00 10-18 16:15 :00 No 25mg 25 mg, Oral, ONCE, 1 dose, On 10/19/23 at 1100, [facility] ondansetron 4 mg disintegrat ing tablet 10-18 00:00: 00 Yes [id number] 4mg Take 1 tablet by mouth every 8 (eight) hours as needed for Nausea and Vomiting (N/V). [facility] hydrOXYzine 25 mg tablet 10-18 00:00: 00 Yes [id number] 25mg Take 1 tablet by mouth every 6 (six) hours as needed for Anxiety. [facility] neomycin-po lymyxin-pra moxine 3.5-10,000- 10 mg-unit-mg/ gram cream 10-17 00:00: 00 Yes [id number] Apply to area(s) 2 (two) times daily. [facility] cholecalcif catherine, vitamin D3, 25 mcg (1,000 unit) tablet 09-21 00:00: 00 10-22 04:59 :00 No [id number] 1000U Take 1 tablet by mouth in the morning for 30 days. [facility] foLIC acid 1 mg tablet 09-21 00:00: 00 10-22 04:59 :00 No [id number] 1mg Take 1 tablet by mouth in the morning for 30 days. [facility] KCL (KLOR-CON M20) tablet 40 mEq 09-20 14:30: 00 09-20 14:15 :00 No 40meq 40 mEq, Oral, ONCE, 1 dose, On 09/21/23 at 0930, Routine [facility] lisdexamfet amine (VYVANSE) 60 mg capsule 09-20 12:06: 59 Yes 60mg Take 1 capsule by mouth every morning. [facility] oxazepam (SERAX) capsule 15 mg 09-20 01:30: [...] 09/22/23 at 1230, Routine [Order 2 End] [facility] benzonatate 100 mg capsule 09-20 00:00: 00 10-01 04:59 :00 No [id number] 100mg Take 1 capsule by mouth every 8 (eight) hours as needed for Cough for up to 10 days. [facility] zinc sulfate 50 mg zinc (220 mg) capsule 09-20 00:00: 00 10-01 04:59 :00 No [id number] 50mg Take 1 capsule by mouth in the morning and 1 capsule at noon and 1 capsule in the evening. Do all this for 10 days. [facility] amoxicillin -clavulanat e 875-125 mg per tablet 09-20 00:00: 00 09-26 04:59 :00 No [id number] 1{tbl} Take 1 tablet by mouth in the morning and 1 tablet in the evening. Do all this for 5 days. [facility] dexAMETHaso ne 4 mg tablet 09-20 00:00: 00 09-26 04:59 :00 No [id number] 6mg Take 1.5 tablets by mouth every 12 (twelve) hours for 5 days. [facility] cefTRIAXone (ROCEPHIN) 1,000 mg in NaCl 0.9% (NS) 100 mL MINI-BAG 09-19 23:30: 00 09-24 23:29 :00 No 1000mg 1,000 mg, IV Piggyback, Q24H ABX, 5 doses, First dose on Sat09/20/23 at 1830, Last dose on Sat09/24/23 at 1830, Administer over 30 Minutes, 100 mL, Reason for Anti-Infec tive: Documented Infection, Documented Infection Site: Respirator y, Duration of Therapy: 7 days [facility] cholecalcif catherine (vitamin D3) tablet 1,000 Units 09-19 14:00: 00 Yes 1000U 1,000 Units, Oral, DAILY, First dose on Sat09/20/23 at 0900, Until Discontinu ed, Routine [facility] metoprolol succinate XL (TOPROL XL) tablet 25 mg 09-19 14:00: 00 Yes 25mg 25 mg, Oral, DAILY, First dose on Sat09/20/23 at 0900, Until Discontinu ed, Routine [facility] foLIC acid (FOLATE) tablet 1 mg 09-19 14:00: 00 Yes 1mg 1 mg, Oral, DAILY, First dose on Sat09/20/23 at 0900, Until Discontinu ed, Routine [facility] enoxaparin (LOVENOX) injection 40 mg 09-19 14:00: 00 Yes 40mg 40 mg, Subcutaneo us, DAILY, First dose on Sat09/20/23 at 0900, Until Discontinu ed, Routine [facility] zinc sulfate (ORAZINC) capsule 50 mg 09-19 13:00: 00 Yes 50mg 50 mg, Oral, TID, First dose on Sat09/20/23 at 0800, Until Discontinu ed, Routine [facility] ascorbic acid (vitamin C) (VITAMIN C) tablet 500 mg 09-19 13:00: 00 Yes 500mg 500 mg, Oral, BID, First dose on Sat09/20/23 at 0800, Until Discontinu ed, Routine [facility] ipratropium -albuteroL (DUONEB) 0.5 mg-3 mg(2.5 mg base)/3 mL nebulizer solution 3 mL 09-19 13:00: 00 09-19 14:58 :45 No 3mL 3 mL, Inhalation , QID, First dose on Sat09/20/23 at 0800, Until Discontinu ed, Routine [facility] ipratropium -albuteroL (DUONEB) 0.5 mg-3 mg(2.5 mg base)/3 mL nebulizer solution 3 mL 09-19 12:32: 50 Yes 3mL 3 mL, Inhalation , QIDPRN, Starting on Sat09/20/23 at 0732, Until Discontinu ed, Routine, Wheezing, Shortness of Breath, Bronchospa sm, Chest tightness [facility] azithromyci n (ZITHROMAX) 500 mg in NaCl [...] Respirator y, Duration of therapy: 5 days [facility] dexamethaso ne sod phos PF injection 6 mg 09-19 03:00: 00 Yes 6mg 6 mg, Intravenou s, DAILY, First dose (after last modificati on) on [place] 09/19/23 at 2200, Until Discontinu ed, 1 mL [facility] benzocaine- menthoL (CEPACOL SORE THROAT (VENITA-MEN)) lozenge 1 Lozenge 09-19 02:44: 39 Yes 1{lozen ge} 1 Lozenge, Oral, Q4HPRN, Starting on [place] 09/19/23 at 2144, Until Discontinu ed, Routine, Sore throat [facility] benzonatate (TESSALON PERLES) capsule 100 mg 09-19 02:44: 33 Yes 100mg 100 mg, Oral, Q8HPRN, Starting on Sat09/19/23 at 2144, Until Discontinu ed, Routine, Cough [facility] codeine-gua ifenesin (ROBITUSSIN AC) 10-100 mg/5 mL oral solution 5 mL 09-19 02:44: 22 Yes 5mL 5 mL, Oral, Q6HPRN, Starting on [place] 09/19/23 at 2144, Until Discontinu ed, Routine, Cough [facility] NaCl 0.9% (NS) IV infusion 1,000 mL 09-18 23:15: 00 09-19 22:10 :01 No 1000mL at 125 mL/hr, IV Infusion, CONTINUOUS , Starting on Sat09/19/23 at 1815, Until Sat09/20/23 at 1710, Routine [facility] oxazepam (SERAX) capsule 15 mg 09-18 23:05: 39 Yes 15mg 15 mg, Oral, Q4HPRN, Starting on Sat09/19/23 at 1805, Until Discontinu ed, Routine, Only while awake for DBP equal to or greater than 100, HR equal to or greater than 100. [facility] ondansetron (ZOFRAN (PF)) injection 4 mg 09-18 23:05: 04 Yes 4mg [facility] HYDROcodone -acetaminop hen (NORCO 5) 5-325 mg tablet 1 tablet 09-18 23:04: 59 09-20 23:03 :59 No 1{tbl} 1 tablet, Oral, Q6HPRN, Starting on Sat09/19/23 at 1804, Until 09/21/23 at 1803, Routine, Pain (scale 4-6) [facility] acetaminoph en (TYLENOL) tablet 650 mg 09-18 23:04: 44 Yes 650mg 650 mg, Oral, Q6HPRN, Starting on Sat09/19/23 at 1804, Until Discontinu ed, Routine, Pain (scale 1-3) [facility] ondansetron (ZOFRAN (PF)) injection 4 mg 09-18 21:15: 00 09-18 20:11 :00 No 4mg 4 mg, Slow IV Push, ONCE, 1 dose, On Sat09/19/23 at 1615, CECILIA [facility] acetaminoph en (TYLENOL) tablet 1,000 mg 09-18 21:00: 00 09-18 20:58 :00 No 1000mg 1,000 mg, Oral, ONCE, 1 dose, On Sat09/19/23 at 1600, Routine [facility] NaCl 0.9% (NS) bolus infusion 1,000 mL 09-18 19:45: 00 09-18 20:11 :00 No 1000mL at 999 mL/hr, 1,000 mL, IV Infusion, ONCE, 1 dose, On [place] 09/19/23 at 1445, STAT [facility] magnesium sulfate in water 2 gram/50 mL (4 %) infusion 2 g 09-18 18:00: 00 09-18 18:21 :00 No 2g 2 g, IV Piggyback, Administer over 60 Minutes, ONCE, 1 dose, On [place] 09/19/23 at 1300, Routine [facility] NaCl 0.9% (NS) bolus infusion 1,566 mL 09-18 18:00: 00 09-18 20:11 :00 No 30mL/kg at 999 mL/hr, 1,566 mL (30 mL/kg ?52.2 kg), IV Infusion, ONCE, 1 dose, On [place] 09/19/23 at 1300, STAT [facility] ondansetron (ZOFRAN (PF)) injection 4 mg 09-18 18:00: 00 09-18 17:05 :00 No 4mg 4 mg, Slow IV Push, ONCE, 1 dose, On [place] 09/19/23 at 1300, CECILIA [facility] LORazepam (ATIVAN) injection 1 mg 09-18 17:00: 00 09-18 17:05 :00 No 1mg 1 mg, Slow IV Push, ONCE, 1 dose, On [place] 09/19/23 at 1200, STAT [facility] NaCl 0.9% (NS) bolus infusion 1,000 mL 09-14 17:30: 00 09-14 18:27 :00 No 1000mL at 999 mL/hr, 1,000 mL, IV Infusion, ONCE, 1 dose, On [place] 09/15/23 at 1230, CECILIA [facility] iopamidol (ISOVUE 370-500 mL) injection 80 mL 09-14 17:15: 00 09-14 17:30 :00 No [id number] 80mL 80 mL, Intravenou s, ONCE, 1 dose, On [place] 09/15/23 at 1230, Routine [facility] NaCl 0.9% (NS) bolus infusion 1,000 mL 09-13 00:15: 00 09-13 01:01 :00 No [id number] 1000mL at 999 mL/hr, 1,000 mL, IV Infusion, ONCE, 1 dose, On Sat09/13/23 at 1915, [facility] acetaminoph en (TYLENOL) tablet 650 mg 09-13 00:15: 00 09-12 23:34 :00 No [id number] 650mg 650 mg, Oral, ONCE, 1 dose, On Sat09/13/23 at 1915, [facility] Vyvanse 60 MG Vyvanse 60 MG 06-20 [...] 5 % cream 1-10 00:00: 00 Yes [id number] Apply cream from neck down, leave on for 8-14 h, repeat in 2 wks [facility] permethrin 5 % cream 04-30 00:00: 00 Yes [id number] As directed. [facility] hydrOXYzine 25 mg tablet 04-30 00:00: 00 05-06 05:59 :00 No [id number] 25mg Take 1 tablet by mouth 3 (three) times daily as needed for Itching for up to 5 days. [facility] foLIC acid 1 mg tablet 04-28 00:00: 00 05-29 05:59 :00 No [id number] 1mg Take 1 tablet by mouth in the morning for 30 days. [facility] thiamine 100 mg tablet 04-28 00:00: 00 05-29 05:59 :00 No [id number] 100mg Take 1 tablet by mouth in the morning for 30 days. [facility] oxazepam (SERAX) capsule 10 mg 04-27 19:15: 00 04-28 19:14 :00 No 10mg 10 mg, Oral, Q12H TAPER, 2 doses, First dose (after last modificati on) on 04/27/23 at 1315, Last dose on 04/28/23 at 0115, Routine [facility] KCL (KLOR-CON M20) tablet 40 mEq 04-27 15:00: 00 Yes 40meq 40 mEq, Oral, DAILY, First dose on 04/27/23 at 0900, Until Discontinu ed, Routine [facility] metoprolol succinate XL (TOPROL XL) tablet 12.5 mg 04-27 15:00: 00 Yes 12.5mg 12.5 mg, Oral, DAILY, First dose on 04/27/23 at 0900, Until Discontinu ed, Routine [facility] magnesium oxide (MAG-OX 400) tablet 800 mg 04-27 15:00: 00 04-30 14:59 :00 No 800mg 800 mg, Oral, DAILY, 3 doses, First dose on Sat 6/24 at 0900, Last dose on Sat04/29/23 at 0900, Routine [facility] lisdexamfet amine (VYVANSE) 60 mg capsule 04-27 09:58: 30 Yes 60mg Take 1 capsule by mouth every morning. [facility] LISINOPRIL ORAL 04-27 08:55: 37 04-27 00:00 :00 No Take by mouth. [facility] KCL 20 mEq tablet 04-27 00:00: 00 05-05 05:59 :00 No [id number] 20meq Take 1 tablet by mouth in the morning for 7 days. [facility] magnesium oxide 420 mg Tab 04-27 00:00: 00 05-05 05:59 :00 No [id number] 400mg Take 400 mg by mouth in the morning for 7 days. [facility] NaCl 0.9% (NS) IV infusion 1,000 mL 04-26 20:00: 00 Yes 1000mL at 150 mL/hr, IV Infusion, CONTINUOUS , Starting on Sat04/26/23 at 1400, Until Discontinu ed, Routine
Resume after banana bag is completed< br> [facility] metoprolol tartrate (LOPRESSOR) tablet 12.5 mg 04-26 20:00: 00 04-27 14:52 :31 No 12.5mg 12.5 mg, Oral, BID, First dose on Sat04/26/23 at 1400, Until Discontinu ed, [facility] sulfate in water 4 gram/50 mL (8 %) IV Piggyback 4 g 04-26 15:15: 00 04-26 20:54 :00 No 4g 4 g, IV Piggyback, at 25 mL/hr Administer over 120 Minutes, ONCE, 1 dose, On Sat04/26/23 at 0915, CECILIA [facility] potassium chloride in water 10 mEq/100 mL RTU 10 mEq 04-26 14:45: 00 2024- 01-05 18:54 :00 No 10meq 10 mEq, IV Piggyback, Q1H, 4 doses, First dose on Sat04/26/23 at 0845, Last dose on Sat04/26/23 at 1100, Administer over 60 Minutes, 100 mL [facility] diazePAM (VALIUM) injection 10 mg 04-25 16:47: 50 Yes 10mg 10 mg, Intravenou s, Q6HPRN, Starting on Sat04/25/23 at 1047, Until Discontinu ed, Routine, Agitation, Withdrawl [facility] foLIC acid (FOLATE) tablet 1 mg 04-25 15:00: 00 Yes 1mg 1 mg, Oral, DAILY, First dose on Sat04/25/23 at 0900, Until Discontinu ed, Routine [facility] thiamine (VITAMIN B1) tablet 100 mg 04-25 15:00: 00 Yes 100mg 100 mg, Oral, DAILY, First dose on Sat04/25/23 at 0900, Until Discontinu ed, Routine [facility] enoxaparin (LOVENOX) injection 40 mg 04-25 15:00: 00 Yes 40mg 40 mg, Subcutaneo us, DAILY, First dose on Sat04/25/23 at 0900, Until Discontinu ed, Routine [facility] oxazepam (SERAX) capsule 15 mg 04-25 13:10: 47 Yes 15mg 15 mg, Oral, Q4HPRN, Starting on Sat04/25/23 at 0710, Until Discontinu ed, Routine, Only while awake for DBP equal to or greater than 100, HR equal to or greater than 100. [facility] potassium chloride in water 10 mEq/100 mL RTU 10 mEq 04-25 13:00: 00 04-25 19:57 :00 No 10meq 10 mEq, IV Piggyback, Q1H, 6 doses, First dose on Sat04/25/23 at 0700, Last dose on Sat04/25/23 at 1200, Administer over 60 Minutes, 100 mL [facility] dexMEDEtomi dine 200 mcg in 0.9 % [...] at maximum allowed dose, contact prescriber .
[facility] thiamine (VITAMIN B1) 100 mg, foLIC acid (FOLATE) 1 mg, multivitami n adult (INFUVITE ADULT) 3,300 unit- 150 mcg/10 mL 10 mL in D5W 0.45% NaCl (1/2NS) IV Solution 04-25 06:15: 00 04-25 06:51 :35 No IV Infusion, at 150 mL/hr, ONCE, 1 dose, On [place] 04/25/23 at 0015, 1,000 mL [facility] NaCl 0.9% (NS) IV infusion 1,000 mL 04-25 05:30: 00 04-26 19:52 :00 No 1000mL at 125 mL/hr, IV Infusion, CONTINUOUS , Starting on Sat04/24/23 at 2330, Until Sat04/26/23 at 1352, Routine
Resume after banana bag is completed< br> [facility] NaCl 0.9% (NS) IV infusion 1,000 mL 04-25 03:45: 00 04-25 05:27 :44 No 1000mL at 125 mL/hr, IV Infusion, CONTINUOUS , Starting on Sat04/24/23 at 2145, Until Sat04/24/23 at 2327, Routine [facility] haloperidol lactate (HALDOL) injection 2 mg 04-25 03:42: 43 Yes 2mg 2 mg, Slow IV Push, Q6HPRN, Starting on Sat04/24/23 at 2142, Until Discontinu ed, Routine, Sedation, Psychosis [facility] ondansetron (ZOFRAN (PF)) injection 4 mg 04-25 03:41: 50 Yes 4mg 4 mg, Slow IV Push, Q4HPRN, Starting on Sat04/24/23 at 2141, Until Discontinu ed, Routine, Nausea and Vomiting (N/V) [facility] acetaminoph en (TYLENOL) tablet 650 mg 04-25 03:41: 07 Yes 650mg 650 mg, Oral, Q6HPRN, Starting on Sat04/24/23 at 2141, Until Discontinu ed, Routine, Pain (scale 1-3) [facility] cefTRIAXone (ROCEPHIN) 1,000 mg in NaCl 0.9% (NS) 100 mL MINI-BAG 04-25 02:45: 00 04-25 03:06 :00 No 1000mg 1,000 mg, IV Piggyback, ONCE, 1 dose, On Sat04/24/23 at 2045, Administer over 30 Minutes, 100 mL
Reas on for Anti-Infec tive: Documented Infection< br>Documen colleen Infection Site: Urine
D uration of Therapy: Other (see Comments) [facility] iopamidol (ISOVUE 370-500 mL) injection 85 mL 04-25 02:15: 00 04-25 02:15 :00 No 85mL 85 mL, Intravenou s, ONCE, 1 dose, On Sat04/24/23 at 2015, Routine [facility] NaCl 0.9% (NS) bolus infusion 1,000 mL 04-24 23:15: 00 04-25 02:47 :00 No 1000mL at 999 mL/hr, 1,000 mL, IV Infusion, ONCE, 1 dose, On Sat04/24/23 at 1715, STAT [facility] diazePAM (VALIUM) tablet 2.5 mg 04-24 23:15: 00 04-24 23:58 :00 No 2.5mg 2.5 mg, Oral, ONCE, 1 dose, On Sat04/24/23 at 1715, [facility] 2 gram/50 mL (4 %) infusion 2 g 04-24 23:00: 00 04-24 23:58 :00 No 2g 2 g, IV Piggyback, Administer over 60 Minutes, ONCE, 1 dose, On Sat04/24/23 at 1700, [facility] thiamine (VITAMIN B1) injection 100 mg 04-24 22:15: 00 04-24 22:58 :00 No 100mg 100 mg, Slow IV Push, ONCE, 1 dose, On Sat04/24/23 at 1615, [facility] Vyvanse 60 MG Vyvanse 60 MG 2022-04 [...] MG Vyvanse 60 MG Vyvanse 60 MG 2022-04- 00:00: 00 No 1{capsu le_in_t he_morn ing} QD Vyvanse 60 MG Vyvanse 60 MG Vyvanse 60 MG 2022-04- 00:00: 00 No 1{capsu le_in_t he_morn ing} [...] MG Vyvanse 60 MG Vyvanse 60 MG 2022-0418 00:00: 00 No 1{capsu le_in_t he_morn ing} QD Vyvanse 60 MG Vyvanse 60 MG Vyvanse 60 MG 2022-04 0-18 00:00: 00 No 1{capsu le_in_t he_morn ing} QD Vyvanse 60 MG Vyvanse 60 MG Vyvanse 60 MG 2022-0414 00:00: 00 No 1{capsu le_in_t he_morn ing} QD Vyvanse 60 MG Vyvanse 60 MG Vyvanse 60 MG 2022-04-14 00:00: 00 No 1{capsu le_in_t he_morn ing} [...] 12-12 09:09: 49 Yes Take by mouth. [facility] lisdexamfet amine (VYVANSE) 60 mg capsule 12-12 09:09: 24 Yes 60mg Take 1 capsule by mouth every morning. [facility] oxazepam (SERAX) capsule 15 mg 11-14 08:09: 00 11-15 08:14 :00 No 15mg 15 mg, Oral, Q12H TAPER, 2 doses, First dose on Sat11/14/22 at 0315, Last dose on Sat11/14/22 at 1515, Routine [facility] lisdexamfet amine (VYVANSE) 60 mg capsule 11-13 18:24: 40 Yes 60mg Take 1 capsule by mouth every morning. [facility] potassium phosphate 15 mmol in NaCl 0.9% (NS) 150 mL piggyback 11-13 14:30: 00 11-13 19:51 :00 No 15mmol 15 mmol, IV Piggyback, ONCE, 1 dose, On Sat11/13/22 at 0930, 150 mL [facility] sennosides (SENOKOT) tablet 8.6 mg 11-12 14:00: 00 Yes 8.6mg 8.6 mg, Oral, DAILY, First dose on Sat11/12/22 at 0900, Until Discontinu ed, Routine [facility] D5W 0.45% NaCl (1/2NS) IV infusion 1,000 mL 11-12 13:30: 00 11-12 14:54 :49 No 1000mL at 100 mL/hr, 1,000 mL, IV Infusion, ONCE, 1 dose, On Sat11/12/22 at 0830, Routine [facility] acetaminoph en (TYLENOL) tablet 500 mg 11-12 03:43: 02 Yes 500mg 500 mg, Oral, Q6HPRN, Starting on Sat11/11/22 at 2243, Until Discontinu ed, Routine, Pain (scale 1-3) [facility] oxazepam (SERAX) capsule 15 mg 11-12 02:09: 00 Yes 15mg 15 mg, Oral, Q4HPRN, Starting on Sat11/11/22 at 2109, Until Discontinu ed, Routine, Only while awake for DBP equal to or greater than 100, HR equal to or greater than 100. [facility] D5W 0.9% NaCl (NS) 1 L + KCL 20 mEq 11-11 19:15: 00 11-12 12:42 :08 No IV Infusion, at 100 mL/hr, CONTINUOUS , Starting on Sat11/11/22 at 1415, Until Sat11/12/22 at 0742, Routine [facility] multivitami n oral solution 15 mL 11-11 18:15: 00 Yes 15mL 15 mL, Oral, DAILY, First dose on Sat11/11/22 at 1315, Until Discontinu ed, Routine [facility] potassium chloride in water (KCL) 20 mEq/100 mL RTU IVPB 20 mEq 11-11 10:45: 00 11-11 16:30 :00 No 20meq 20 mEq, IV Infusion, Q2H ES, 2 doses, First dose on Sat11/11/22 at 0545, Last dose on Sat11/11/22 at 0745, 100 mL [facility] glucagon (GLUCAGEN DIAGNOSTIC KIT) injection 1 mg 11-11 10:16: 15 Yes 1mg 1 mg, Intramuscu lar, PRN, Starting on Sat11/11/22 at 0516, Until Discontinu ed, CECILIA, Blood Glucose < or = 70 mg/dL and patient is NPO, unable to swallow or has mental changes. [facility] dextrose 50 % in water (D50W) injection 25 mL 11-11 10:16: 15 Yes 25mL 25 mL, Slow IV Push, PRN, Starting on Sat11/11/22 at 0516, Until Discontinu ed, CECILIA, Blood Glucose < or = 70 mg/dL and patient is NPO, unable to swallow or has mental status changes. [facility] NaCl 0.9% (NS) IV infusion 1,000 mL 11-11 01:30: 00 11-11 17:57 :28 No 1000mL at 100 mL/hr, IV Infusion, CONTINUOUS , Starting on 11/10/22 at 2030, Until 11/11/22 at 1257, Routine [facility] heparin (porcine) injection 5,000 Units 11-11 01:00: 00 Yes 5000U 5,000 Units, Subcutaneo us, Q12H, First dose on [facility] 11/10/22 at 2000, Until Discontinu ed, Routine [facility] magnesium sulfate in water 2 gram/50 mL (4 %) infusion 2 g 11-11 00:45: 00 11-11 04:01 :00 No 2g 2 g, IV Piggyback, Administer over 60 Minutes, ONCE, 1 dose, On [facility] 11/10/22 at 1945, Routine [facility] dexMEDEtomi dine 200 mcg in 0.9 % NaCl 50 mL (PRECEDEX) RTU IV infusion 11-11 00:42: 42 11-12 02:16 :46 No .2ug/kg /h 0.2-1.5 mcg/kg/hr ?49 kg (2.45-18.3 75 mL/hr, rounded to 2.45-18.38 mL/hr), IV Infusion, TITRATE, Sedation-R ASS score (0 to -1), Starting on [facility] 11/10/22 at 1942
In itiate infusion at 0.2 mcg/kg/hr and titrate by 0.1 mcg/kg/hr every 30 minutes to goal sedation score. Maximum dose = 1.5 mcg/kg/hr. If goal not maintained at maximum allowed dose, contact prescriber .
[facility] foLIC acid (FOLATE) injection 1 mg 11-11 00:00: 00 Yes 1mg 1 mg, Intramuscu lar, DAILY, First dose on 11/10/22 at 1900, Until Discontinu ed, Routine [facility] thiamine (VITAMIN B1) 100 mg in NaCl 0.9% (NS) piggyback 11-11 00:00: 00 11-15 13:59 :00 No 100mg IV Piggyback, DAILY, 5 doses, First dose on Sat11/10/22 at 1900, Last dose on Sat11/14/22 at 0900, 50 mL [facility] LORazepam (ATIVAN) injection 1 mg 11-10 23:43: 00 11-12 02:09 :22 No 1mg 1 mg, Slow IV Push, TIDPRN, Starting on 11/10/22 at 1843, Until 11/11/22 at 2109, Routine, Seizures [facility] diazePAM (VALIUM) injection 10 mg 11-10 23:15: 00 11-10 23:17 :00 No 10mg 10 mg, Slow IV Push, ONCE, 1 dose, On 11/10/22 at 1815, STAT [facility] proMETHazin e (PHENERGAN) 25 mg in NaCl 0.9% (NS) 50 mL piggyback 11-10 23:15: 00 11-10 23:19 :00 No 25mg 25 mg, IV Piggyback, ONCE, 1 dose, On 11/10/22 at 1815, 50 mL [facility] LORazepam (ATIVAN) injection 2 mg 11-10 23:00: 00 11-10 23:10 :00 No 2mg 2 mg, Slow IV Push, ONCE, 1 dose, On Sat11/10/22 at 1800, STAT [facility] LORazepam (ATIVAN) injection 1 mg 11-10 22:15: 00 11-10 22:26 :00 No 1mg 1 mg, Slow IV Push, ONCE, 1 dose, On 11/10/22 at 1715, STAT [facility] lisinopriL 2.5 mg tablet 11-08 00:00: 00 12-09 04:59 :00 No [id number] 2.5mg Take 1 tablet by mouth in the morning for 30 days. [facility] magnesium sulfate in water 2 gram/50 mL (4 %) infusion 2 g 11-07 15:00: 00 11-07 15:40 :00 No 2g 2 g, IV Piggyback, Administer over 60 Minutes, ONCE, 1 dose, On Sat11/07/22 at 1000, Routine [facility] lisdexamfet amine (VYVANSE) 60 mg capsule 11-07 14:54: 12 Yes 60mg Take 1 capsule by mouth every morning. [facility] lisinopriL (PRINIVIL,Z ESTRIL) tablet 2.5 mg 11-07 14:15: 00 Yes 2.5mg 2.5 mg, Oral, DAILY, First dose on Sat11/07/22 at 0915, Until Discontinu ed, Routine [facility] enoxaparin (LOVENOX) injection 40 mg 11-06 22:00: 00 Yes 40mg 40 mg, Subcutaneo us, DAILY, First dose on Sat11/06/22 at 1700, Until Discontinu ed, Routine [facility] pantoprazol e (PROTONIX) EC tablet 40 mg 11-06 14:00: 00 Yes 40mg 40 mg, Oral, DAILY, First dose on Sat11/06/22 at 0900, Until Discontinu ed, Routine [facility] metoprolol succinate XL (TOPROL XL) tablet 25 mg 11-06 14:00: 00 Yes 25mg 25 mg, Oral, DAILY, First dose on Sat11/06/22 at 0900, Until Discontinu ed, Routine [facility] docusate (COLACE) capsule 100 mg 11-06 13:00: 00 Yes 100mg 100 mg, Oral, BID, First dose on Sat11/06/22 at 0800, Until Discontinu ed, Routine [facility] D5W 0.9% NaCl (NS) IV infusion 1,000 mL 11-06 12:15: 00 11-08 12:14 :00 No 1000mL at 200 mL/hr, 1,000 mL, IV Infusion, CONTINUOUS , Starting on Sat11/06/22 at 0715, Until [place] 11/08/22 at 0714, CECILIA [facility] D5W 0.9% NaCl (NS) IV infusion 1,000 mL 11-06 11:30: 00 11-06 12:13 :19 No 1000mL at 200 mL/hr, 1,000 mL, IV Infusion, CONTINUOUS , Starting on Sat11/06/22 at 0630, Until Sat11/06/22 at 0713, CECILIA [facility] ondansetron (ZOFRAN (PF)) injection 4 mg 11-06 10:31: 07 Yes 4mg 4 mg, Slow IV Push, Q6HPRN, Starting on Sat11/06/22 at 0531, Until Discontinu ed, Routine, Nausea and Vomiting (N/V) [facility] bisacodyL (DULCOLAX) tablet 10 mg 11-06 10:31: 02 Yes 10mg 10 mg, Oral, QDAILYPRN, Starting on Sat11/06/22 at 0531, Until Discontinu ed, Routine, Constipati on [facility] FENTanyl PF (SUBLIMAZE (PF)) injection 25 mcg 11-06 10:30: 33 11-07 10:29 :33 No 25ug 25 mcg, Slow IV Push, Q4HPRN, Starting on Sat11/06/22 at 0530, Until Sat11/07/22 at 0529, Routine, Pain (scale 7-10) [facility] acetaminoph en (TYLENOL) tablet 650 mg 11-06 10:29: 53 Yes 650mg 650 mg, Oral, Q6HPRN, Starting on Sat11/06/22 at 0529, Until Discontinu ed, Routine, Pain (scale 1-3) [facility] foLIC acid (FOLATE) 5 mg in NaCl 0.9% (NS) piggyback 11-06 10:15: 00 11-06 10:35 :00 No 5mg IV Piggyback, ONCE NOW, 1 dose, On Sat11/06/22 at 0515, 50 mL [facility] thiamine (VITAMIN B1) 100 mg in NaCl 0.9% (NS) piggyback 11-06 10:15: 00 11-06 10:45 :00 No 100mg IV Piggyback, ONCE NOW, 1 dose, On Sat11/06/22 at 0515, 50 mL [facility] NaCl 0.9% (NS) bolus infusion 1,000 mL 11-06 09:00: 00 11-06 09:11 :00 No 1000mL at 999 mL/hr, 1,000 mL, IV Piggyback, ONCE, 1 dose, On Sat11/06/22 at 0400, STAT [facility] morpHINE (4 mg/mL) injection 4 mg 11-06 09:00: 00 11-06 08:54 :00 No 4mg 4 mg, Slow IV Push, ONCE, 1 dose, On Sat11/06/22 at 0400, STAT [facility] iopamidol (ISOVUE 370-500 mL) injection 70 mL 11-06 07:45: 00 11-06 06:58 :00 No [id number] 70mL 70 mL, Intravenou s, ONCE, 1 dose, On Sat11/06/22 at 0245, Routine [facility] ketorolac (TORADOL) injection 30 mg 11-06 07:30: 00 11-06 06:33 :00 No 30mg 30 mg, Slow IV Push, ONCE, 1 dose, On Sat11/06/22 at 0230, Routine [facility] NaCl 0.9% (NS) bolus infusion 1,000 mL 11-06 07:15: 00 11-06 08:11 :00 No 1000mL at 999 mL/hr, 1,000 mL, IV Infusion, ONCE, 1 dose, On Sat11/06/22 at 0215, CECILIA [facility] FENTanyl PF (SUBLIMAZE (PF)) injection 50 mcg 11-06 07:15: 00 11-06 06:34 :00 No 50ug 50 mcg, Slow IV Push, ONCE, 1 dose, On Sat11/06/22 at 0215, Routine [facility] ondansetron (ZOFRAN (PF)) injection 4 mg 11-06 06:30: 00 11-06 06:34 :00 No 4mg 4 mg, Slow IV Push, ONCE, 1 dose, On Sat11/06/22 at 0130, CECILIA [facility] albuterol 90 mcg/actuati on inhaler 11-06 01:23: 41 11-06 00:00 :00 No 2{puff} Inhale 2 Puffs every 6 (six) hours as needed for Wheezing or Shortness of Breath. [facility] ibuprofen 600 mg tablet 11-06 01:23: 41 11-06 00:00 :00 No 600mg Take 600 mg by mouth in the morning. [facility] lisdexamfet amine (VYVANSE) 60 mg capsule 10-30 00:00: 00 11-06 00:00 :00 No 1 capsule in the morning Orally Once a day for 30 days [facility] doxycycline hyclate (Vibramycin ) capsule 100 mg 08-28 03:30: 00 08-28 03:50 :00 No 100mg 100 mg, Oral, ONCE, 1 dose, On Sat08/27/22 at 2230, CECILIA
Re ason for Anti-Infec tive: Documented Infection< br>Documen colleen Infection Site: Skin / Soft Tissue
Duration of Therapy: 10 days [facility] cephALEXin (KEFLEX) capsule 500 mg 08-28 03:30: 00 08-28 03:50 :00 No 500mg 500 mg, Oral, ONCE, 1 dose, On Sat08/27/22 at 2230, CECILIA
Re ason for Anti-Infec tive: Empiric Therapy for Suspected Infection< br>Empiric Therapy Site: Skin / Soft tissue
Duration of therapy: 5 days [facility] lisdexamfet amine (VYVANSE) 60 mg capsule 08-27 22:56: 45 Yes 60mg Take 1 capsule by mouth every morning. [facility] pantoprazol e 40 mg EC tablet 08-27 20:42: 39 08-27 00:00 :00 No 40mg Take 40 mg by mouth in the morning. [facility] lisdexamfet amine 50 mg capsule 08-27 20:42: 27 08-27 00:00 :00 No 50mg Take 50 mg by mouth every morning. [facility] doxycycline hyclate 100 mg capsule 08-27 00:00: 00 Yes [id number] 100mg Take 1 capsule by mouth in the morning and 1 capsule in the evening. [facility] cephALEXin (KEFLEX) 500 mg capsule 08-27 00:00: 00 09-04 04:59 :00 No [id number] 500mg Take 1 capsule by mouth in the morning and 1 capsule at noon and 1 capsule in the evening. Do all this for 7 days. [facility] cefTRIAXone Sodium cefTRIAXone Sodium 2022-0 2-10 00:00: 00 No 1g [facility] cefTRIAXone Sodium cefTRIAXone Sodium 3-0 2-10 00:00: 00 No 1g [facility] cefTRIAXone Sodium cefTRIAXone Sodium 3-0 2-10 00:00: 00 No 1g [facility] cefTRIAXone Sodium cefTRIAXone Sodium 3-0 2-10 00:00: 00 No [facility]g [facility] cefTRIAXone Sodium cefTRIAXone Sodium 3-0 2-10 00:00: 00 No 1g [facility] cefTRIAXone Sodium cefTRIAXone Sodium 3-0 2-10 00:00: 00 No 1g [facility] cefTRIAXone Sodium cefTRIAXone Sodium 3-0 2-10 00:00: 00 No 1g [facility] cefTRIAXone Sodium cefTRIAXone Sodium 3-0 2-10 00:00: 00 No 1g [facility] cefTRIAXone Sodium cefTRIAXone Sodium 3-0 2-10 00:00: 00 No 1g [facility] cefTRIAXone Sodium cefTRIAXone Sodium 2023-0 2-10 00:00: 00 No 1g [facility] cefTRIAXone Sodium cefTRIAXone Sodium 3-0 2-10 00:00: 00 No 1g [facility] cefTRIAXone Sodium cefTRIAXone Sodium 2022-0 2-10 00:00: 00 No 1g [facility] cefTRIAXone Sodium cefTRIAXone Sodium 2022-0 2-10 00:00: 00 No 1g [facility] cefTRIAXone Sodium cefTRIAXone Sodium 2022-0 2-10 00:00: 00 No 1g [facility] cefTRIAXone Sodium cefTRIAXone Sodium 3-0 2-10 00:00: 00 No 1g [facility] cefTRIAXone Sodium cefTRIAXone Sodium 2022-0 2-10 00:00: 00 No 1g [facility] cefTRIAXone Sodium cefTRIAXone Sodium 2022-0 2-10 00:00: 00 No 1g [facility] cefTRIAXone Sodium cefTRIAXone Sodium 2022-0 2-10 00:00: 00 No 1g [facility] Vyvanse 60 MG Vyvanse 60 MG 0 1-10 00:00: 00 No 1{capsu le_in_t he_morn ing} QD Vyvanse 60 MG iopamidol (ISOVUE 370-500 mL) injection 80 mL 2021-04 01:00: 00 04-13 00:03 :00 No [id number] 80mL 80 mL, Intravenou s, ONCE, 1 dose, On [place] 04/12/22 at 1900, Routine [facility] NaCl 0.9% (NS) bolus infusion 500 mL 2021-04 23:30: 00 04-12 23:47 :00 No 500mL at 999 mL/hr, 500 mL, IV Infusion, ONCE, 1 dose, On [place] 04/12/22 at 1730, CECILIA [facility] morpHINE (4 mg/mL) injection 4 mg 2021-04 22:45: 00 04-12 23:03 :00 No 4mg 4 mg, Slow IV Push, ONCE, 1 dose, On [place] 04/12/22 at 1645, STAT [facility] ampicillin- sulbactam (UNASYN) 3 g in NaCl 0.9% (NS) 100 mL MINI-BAG 2021-04 22:45: 00 04-12 23:34 :00 No 3g 3 g, IV Piggyback, ONCE, 1 dose, On [place] 04/12/22 at 1645, Administer over 30 Minutes, 100 mL
Reas on for Anti-Infec tive: Documented Infection< br>Documen colleen Infection Site: HEENT
D uration of Therapy: 7 days [facility] HYDROcodone -acetaminop hen 5-325 mg tablet 2021-04 00:00: 00 04-20 05:59 :00 No [id number] 1{tbl} Take 1 tablet by mouth every 6 (six) hours as needed for Pain (scale 7-10) for up to 7 days. Indication s: acute pain [facility] dexamethaso ne sod phos PF injection 10 mg 2021-04 06:30: 00 04-09 06:32 :00 No 10mg 10 mg, Oral, ONCE, 1 dose, On 04/09/22 at 0030, 1 mL [facility] Vyvanse 60 MG Vyvanse 60 MG 2021-04 00:00: 00 No 1{capsu le_in_t he_morn ing} QD Vyvanse 60 MG Vyvanse 60 MG Vyvanse 60 MG 2021-04 00:00: 00 No 1{capsu le_in_t he_morn ing} QD Vyvanse 60 MG Vyvanse 60 MG Vyvanse 60 MG 2021-04 2 00:00: 00 No 1{capsu le_in_t he_morn [...] Take 50 mg by mouth every morning. [facility] pantoprazol e 40 mg EC tablet 11-13 15:00: 18 Yes 40mg Take 40 mg by mouth in the morning. [facility] ibuprofen 600 mg tablet 11-13 15:00: 18 Yes 600mg Take 600 mg by mouth in the morning. [facility] aspirin 325 mg tablet 11-13 00:00: 00 12-12 04:59 :00 No [id number] 325mg Take 1 tablet by mouth in the morning and 1 tablet in the evening. Take with meals. Do all this for 28 days. [facility] Medrol 4 MG Medrol 4 MG 6-28 00:00: 00 10-23 00:00 :00 No Medrol [...] he_morn ing} QD Vyvanse 60 MG Nystatin [id number] UNIT/ML Nystatin [id number] UNIT/ML 920 00:00: 00 - 00:00 :00 No QID Nystatin [id number] UNIT/ML Vitamin B12 (Cyanocobal patel) Vitamin B12 (Cyanocobal patel) 2019-0 9-28 00:00: 00 No 1000ug [facility] Vitamin B12 (Cyanocobal patel) Vitamin B12 (Cyanocobal patel) 2019-0 9-28 00:00: 00 No 1000ug [facility] Vitamin B12 (Cyanocobal patel) Vitamin B12 (Cyanocobal patel) 2019-0 9-28 00:00: 00 No 1000ug [facility] Vitamin B12 (Cyanocobal patel) Vitamin B12 (Cyanocobal patel) 2019-0 9-28 00:00: 00 No 1000ug [facility] Vitamin B12 (Cyanocobal patel) Vitamin B12 (Cyanocobal patel) 2019-0 9-28 00:00: 00 No 1000ug [facility] Vitamin B12 (Cyanocobal patel) Vitamin B12 (Cyanocobal patel) 2019-0 9-28 00:00: 00 No 1000ug [facility] Vitamin B12 (Cyanocobal patel) Vitamin B12 (Cyanocobal patel) 2020-0 9-28 00:00: 00 No 1000ug [facility] Vitamin B12 (Cyanocobal patel) Vitamin B12 (Cyanocobal patel) 2020-0 9-28 00:00: 00 No 1000ug [facility] Vitamin B12 (Cyanocobal patel) Vitamin B12 (Cyanocobal patel) 2020-0 9-28 00:00: 00 No 1000ug [facility] Vitamin B12 (Cyanocobal patel) Vitamin B12 (Cyanocobal patel) 2020-0 9 00:00: 00 No 1000ug [facility] Vitamin B12 (Cyanocobal patel) Vitamin B12 (Cyanocobal patel) 2019-0 9 00:00: 00 No 1000ug [facility] Vitamin B12 (Cyanocobal patel) Vitamin B12 (Cyanocobal patel) 2019-0 9- 00:00: 00 No 1000ug [facility] Vitamin B12 (Cyanocobal patel) Vitamin B12 (Cyanocobal patel) 2020-0 9-28 00:00: 00 No 1000ug [facility] Vitamin B12 (Cyanocobal patel) Vitamin B12 (Cyanocobal patel) 2019-0 9- 00:00: 00 No 1000ug [facility] Vitamin B12 (Cyanocobal patel) Vitamin B12 (Cyanocobal patel) 2019-0 9-28 00:00: 00 No 1000ug [facility] Vitamin B12 (Cyanocobal patel) Vitamin B12 (Cyanocobal patel) 2020-0 9-28 00:00: 00 No 1000ug [facility] Vitamin B12 (Cyanocobal patel) Vitamin B12 (Cyanocobal patel) 2020-0 9-28 00:00: 00 No 1000ug [facility] Vitamin B12 (Cyanocobal patel) Vitamin B12 (Cyanocobal patel) 2019-0 9-28 00:00: 00 No 1000ug [facility] Vitamin B12 (Cyanocobal patel) Vitamin B12 (Cyanocobal patel) 2020-0 9-28 00:00: 00 No 1000ug [facility] Vitamin B12 (Cyanocobal patel) Vitamin B12 (Cyanocobal patel) 2019-0 9-28 00:00: 00 No 1000ug [facility] Vitamin B12 (Cyanocobal patel) Vitamin B12 (Cyanocobal patel) 2019-0 9-28 00:00: 00 No 1000ug [facility] Vitamin B12 (Cyanocobal patel) Vitamin B12 (Cyanocobal patel) 0 9- 00:00: 00 No 1000ug [facility] Vitamin B12 (Cyanocobal patel) Vitamin B12 (Cyanocobal patel) 2019-0 9- 00:00: 00 No 1000ug [facility] Vitamin B12 (Cyanocobal patel) Vitamin B12 (Cyanocobal patel) 0 9 00:00: 00 No 1000ug [facility] Medrol Medrol 2019-0 8-18 00:00: 00 12-13 00:00 :00 No Liz Malagon as directed [facility] Solumedrol 125mg/2ml Solumedrol 125mg/2ml 2019-0 8-17 00:00: 00 No 42mg [facility] Solumedrol 125mg/2ml Solumedrol 125mg/2ml 2019-0 8-17 00:00: 00 No 42mg [facility] Solumedrol 125mg/2ml Solumedrol 125mg/2ml 2019-0 8-17 00:00: 00 No 42mg [facility] Solumedrol 125mg/2ml Solumedrol 125mg/2ml 2019-0 8-17 00:00: 00 No 42mg [facility] Solumedrol 125mg/2ml Solumedrol 125mg/2ml 2019-0 8-17 00:00: 00 No 42mg [facility] Solumedrol 125mg/2ml Solumedrol 125mg/2ml 2019-0 8-17 00:00: 00 No 42mg [facility] Solumedrol 125mg/2ml Solumedrol 125mg/2ml 2019-0 8-17 00:00: 00 No 42mg [facility] Solumedrol 125mg/2ml Solumedrol 125mg/2ml 2019-0 8-17 00:00: 00 No 42mg [facility] Solumedrol 125mg/2ml Solumedrol 125mg/2ml 2019-0 8-17 00:00: 00 No 42mg [facility] Solumedrol 125mg/2ml Solumedrol 125mg/2ml 2019-0 8-17 00:00: 00 No 42mg [facility] Solumedrol 125mg/2ml Solumedrol 125mg/2ml 2019-0 8-17 00:00: 00 No 42mg [facility] Solumedrol 125mg/2ml Solumedrol 125mg/2ml 2019-0 8-17 00:00: 00 No 42mg [facility] Solumedrol 125mg/2ml Solumedrol 125mg/2ml 2019-0 8-17 00:00: 00 No 42mg [facility] Solumedrol 125mg/2ml Solumedrol 125mg/2ml 2019-0 8-17 00:00: 00 No 42mg [facility] Solumedrol 125mg/2ml Solumedrol 125mg/2ml 2019-0 8-17 00:00: 00 No 42mg [facility] Solumedrol 125mg/2ml Solumedrol 125mg/2ml 2019-0 8-17 00:00: 00 No 42mg [facility] Solumedrol 125mg/2ml Solumedrol 125mg/2ml 2019-0 8-17 00:00: 00 No 42mg [facility] Solumedrol 125mg/2ml Solumedrol 125mg/2ml 2019-0 8-17 00:00: 00 No 42mg [facility] Solumedrol 125mg/2ml Solumedrol 125mg/2ml 2019-0 8-17 00:00: 00 No 42mg [facility] Solumedrol 125mg/2ml Solumedrol 125mg/2ml 0 12-06 00:00: 00 No 42mg [facility] Solumedrol 125mg/2ml Solumedrol 125mg/2ml 0 12-06 00:00: 00 No 42mg [facility] Solumedrol 125mg/2ml Solumedrol 125mg/2ml 0 12-06 00:00: 00 No 42mg [facility] Solumedrol 125mg/2ml Solumedrol 125mg/2ml 0 12-06 00:00: 00 No 42mg [facility] Solumedrol 125mg/2ml Solumedrol 125mg/2ml 0 12-06 00:00: 00 No 42mg [facility] metoprolol succinate XL 25 mg 24 hr tablet 11-05 00:00: 00 Yes [id number] 25mg Take 1 tablet by mouth daily. [facility] Kenalog (Triamcinol one) Kenalog (Triamcinol one) 0 08-14 00:00: 00 No 40mg [facility] Kenalog (Triamcinol one) Kenalog (Triamcinol one) 0 08-14 00:00: 00 No 40mg [facility] Kenalog (Triamcinol one) Kenalog (Triamcinol one) 0 08-14 00:00: 00 No 40mg [facility] Kenalog (Triamcinol one) Kenalog (Triamcinol one) 0 08-14 00:00: 00 No 40mg [facility] Kenalog (Triamcinol one) Kenalog (Triamcinol one) 0 08-14 00:00: 00 No 40mg [facility] Kenalog (Triamcinol one) Kenalog (Triamcinol one) 0 08-14 00:00: 00 No 40mg [facility] Kenalog (Triamcinol one) Kenalog (Triamcinol one) [id number] 08-14 00:00: 00 No 40mg [facility] Kenalog (Triamcinol one) Kenalog (Triamcinol one) 0 08-14 00:00: 00 No 40mg [facility] Kenalog (Triamcinol one) Kenalog (Triamcinol one) 0 08-14 00:00: 00 No 40mg [facility] Kenalog (Triamcinol one) Kenalog (Triamcinol one) 0 08-14 00:00: 00 No 40mg [facility] Kenalog (Triamcinol one) Kenalog (Triamcinol one) 0 08-14 00:00: 00 No 40mg [facility] Kenalog (Triamcinol one) Kenalog (Triamcinol one) 0 08-14 00:00: 00 No 40mg [facility] Kenalog (Triamcinol one) Kenalog (Triamcinol one) 0 08-14 00:00: 00 No 40mg [facility] Kenalog (Triamcinol one) Kenalog (Triamcinol one) 0 08-14 00:00: 00 No 40mg [facility] Kenalog (Triamcinol one) Kenalog (Triamcinol one) [id number] 08-14 00:00: 00 No 40mg [facility] Kenalog (Triamcinol one) Kenalog (Triamcinol one) [id number] 08-14 00:00: 00 No 40mg [facility] Kenalog (Triamcinol one) Kenalog (Triamcinol one) [id number] 08-14 00:00: 00 No 40mg [facility] Kenalog (Triamcinol one) Kenalog (Triamcinol one) [id number] 08-14 00:00: 00 No 40mg [facility] Kenalog (Triamcinol one) Kenalog (Triamcinol one) 08-14 00:00: 00 No 40mg [facility] Kenalog (Triamcinol one) Kenalog (Triamcinol one) 08-14 00:00: 00 No 40mg [facility] Kenalog (Triamcinol one) Kenalog (Triamcinol one) 08-14 00:00: 00 No 40mg [facility] Kenalog (Triamcinol one) Kenalog (Triamcinol one) 08-14 00:00: 00 No 40mg [facility] Kenalog (Triamcinol one) Kenalog (Triamcinol one) 08-14 00:00: 00 No 40mg [facility] Kenalog (Triamcinol one) Kenalog (Triamcinol one) 08-14 00:00: 00 No 40mg [facility] Pantoprazol e Sodium 40 MG [...] Comments Source TD Pres-Free 2023-10-18 00:00:00 Completed [facility] TD Pres-Free 2023-10-18 00:00:00 Completed [facility] TD Pres-Free 2023-10-18 00:00:00 Completed [facility] Influenza High Dose 2022-02-11 00:00:00 Completed [facility] Influenza High Dose 2022-02-11 00:00:00 Completed [facility] Influenza High Dose 2022-02-11 00:00:00 Completed [facility] Influenza High Dose 2022-02-11 00:00:00 Completed [facility] Influenza High Dose 2022-02-11 00:00:00 Completed [facility] Influenza High Dose 2022-02-11 00:00:00 Completed [facility] Influenza, High-Dose, Trivalent, PF (FLUZONE) 2022-02-11 00:00:00 Completed [facility] Influenza, High-Dose, Trivalent, PF (FLUZONE) 2022-02-11 00:00:00 Completed [facility] Influenza, High-Dose, Trivalent, PF (FLUZONE) 2022-02-11 00:00:00 Completed [facility] HPV9 2021-08-14 00:00:00 Completed [facility] HPV9 2021-08-14 00:00:00 Completed [facility] HPV9 2021-08-14 00:00:00 Completed [facility] HPV9 2021-08-14 00:00:00 Completed [facility] HPV9 2021-08-14 00:00:00 Completed [facility] HPV9 2021-08-14 00:00:00 Completed [facility] HPV9 2021-08-14 00:00:00 Completed [facility] HPV9 2021-08-14 00:00:00 Completed [facility] HPV9 2021-08-14 00:00:00 Completed [facility] HPV9 2021-08-14 00:00:00 Completed [facility] HPV9 2021-08-14 00:00:00 Completed [facility] HPV9 2021-08-14 00:00:00 Completed [facility] HPV9 2021-08-14 00:00:00 Completed HPV9 2021-08-14 00:00:00 Completed HPV9 2021-08-14 00:00:00 Completed HPV9 2021-07-13 00:00:00 Completed [facility] HPV9 2021-07-13 00:00:00 Completed [facility] HPV9 2021-07-13 00:00:00 Completed [facility] HPV9 2021-07-13 00:00:00 Completed [facility] HPV9 2021-07-13 00:00:00 Completed [facility] HPV9 2021-07-13 00:00:00 Completed [facility] HPV9 2021-07-13 00:00:00 Completed [facility] HPV9 2021-07-13 00:00:00 Completed [facility] HPV9 2021-07-13 00:00:00 Completed [facility] HPV9 2021-07-13 00:00:00 Completed [facility] HPV9 2021-07-13 00:00:00 Completed [facility] HPV9 2021-07-13 00:00:00 Completed [facility] HPV9 2021-07-13 00:00:00 Completed [facility] HPV9 2021-07-13 00:00:00 Completed [facility] HPV9 2021-07-13 00:00:00 Completed [facility] Influenza Virus Vaccine Quad IM, Preserv and ABX Free 6 MO-64 YRS 2021-03-07 00:00:00 Completed [facility] Influenza Virus Vaccine Quad IM, Preserv and ABX Free 6 MO-64 YRS 2021-03-07 00:00:00 Completed [facility] Influenza Virus Vaccine Quad IM, Preserv and ABX Free 6 MO-64 YRS 2021-03-07 00:00:00 Completed [facility] Influenza Virus Vaccine Quad IM, Preserv and ABX Free 6 MO-64 YRS 2021-03-07 00:00:00 Completed [facility] Influenza Virus Vaccine Quad IM, Preserv and ABX Free 6 MO-64 YRS 2021-03-07 00:00:00 Completed [facility] Influenza Virus Vaccine Quad IM, Preserv and ABX Free 6 MO-64 YRS 2021-03-07 00:00:00 Completed [facility] Influenza Virus Vaccine Quad IM, Preserv and ABX Free 6 MO-64 YRS 2021-03-07 00:00:00 Completed [facility] Influenza Virus Vaccine Quad IM, Preserv and ABX Free 6 MO-64 YRS 2021-03-07 00:00:00 Completed [facility] Influenza Virus Vaccine Quad IM, Preserv and ABX Free 6 MO-64 YRS 2021-03-07 00:00:00 Completed [facility] Influenza Virus Vaccine Quad IM, Preserv and ABX Free 6 MO-64 YRS 2021-03-07 00:00:00 Completed [facility] Influenza Virus Vaccine Quad IM, Preserv and ABX Free 6 MO-64 YRS 2021-03-07 00:00:00 Completed [facility] Influenza Virus Vaccine Quad IM, Preserv and ABX Free 6 MO-64 YRS 2021-03-07 00:00:00 Completed [facility] Influenza Virus Vaccine Quad IM, Preserv and ABX Free 6 MO-64 YRS (FLUCELVAX) 2021-03-07 00:00:00 Completed [facility] Influenza Virus Vaccine Quad IM, Preserv and ABX Free 6 MO-64 YRS (FLUCELVAX) 2021-03-07 00:00:00 Completed [facility] Influenza Virus Vaccine Quad IM, Preserv and ABX Free 6 MO-64 YRS (FLUCELVAX) 2021-03-07 00:00:00 Completed [facility] Vitamin B12 (Cyanocobalamin) Vitamin B12 (Cyanocobalamin) 2020-01-18 16:50:00 Completed [facility] Solumedrol 125mg/2ml Solumedrol 125mg/2ml 2019-12-07 14:03:00 Completed [facility] 2018-12-24 10:23:00 Completed [facility] 2018-12-24 10:23:00 Completed [facility] 2018-12-24 10:23:00 Completed [facility] 2018-12-24 10:23:00 Completed [facility] 2018-12-24 10:23:00 Completed [facility] 2018-12-24 10:23:00 Completed [facility] 2018-12-24 10:23:00 Completed [facility] 2018-12-24 00:00:00 Completed [facility] Kenalog (Triamcinolone) Kenalog (Triamcinolone) 2018-08-14 09:05:00 Completed [facility] Influenza Virus Vaccine Quad ID 18-64 YRS 2017-01-18 00:00:00 Completed [facility] Influenza Virus Vaccine Quad ID 18-64 YRS 2017-01-18 00:00:00 Completed [facility] Influenza Virus Vaccine Quad ID 18-64 YRS 2017-01-18 00:00:00 Completed [facility] Influenza Virus Vaccine Quad ID 18-64 YRS 2017-01-18 00:00:00 Completed [facility] Influenza Virus Vaccine Quad ID 18-64 YRS 2017-01-18 00:00:00 Completed [facility] Influenza Virus Vaccine Quad ID 18-64 YRS 2017-01-18 00:00:00 Completed [facility] Influenza Virus Vaccine Quad ID 18-64 YRS 2017-01-18 00:00:00 Completed [facility] Influenza Virus Vaccine Quad ID 18-64 YRS 2017-01-18 00:00:00 Completed [facility] Influenza Virus Vaccine Quad ID 18-64 YRS 2017-01-18 00:00:00 Completed [facility] Influenza Virus Vaccine Quad ID 18-64 YRS 2017-01-18 00:00:00 Completed [facility] Influenza Virus Vaccine Quad ID 18-64 YRS 2017-01-18 00:00:00 Completed [facility] Influenza Virus Vaccine Quad ID 18-64 YRS 2017-01-18 00:00:00 Completed [facility] Influenza Virus Vaccine Quad ID 18-64 YRS 2017-01-18 00:00:00 Completed [facility] Influenza Virus Vaccine Quad ID 18-64 YRS 2017-01-18 00:00:00 Completed [facility] Influenza Virus Vaccine Quad ID 18-64 YRS 2017-01-18 00:00:00 Completed [facility] Influenza Virus Vaccine Quad IM 3+ YRS 2016-08-21 00:00:00 Completed [facility] Influenza Virus Vaccine Quad IM 3+ YRS 2016-08-21 00:00:00 Completed [facility] Influenza Virus Vaccine Quad IM 3+ YRS 2016-08-21 00:00:00 Completed [facility] Influenza Virus Vaccine Quad IM 3+ YRS 2016-08-21 00:00:00 Completed [facility] Influenza Virus Vaccine Quad IM 3+ YRS 2016-08-21 00:00:00 Completed [facility] Influenza Virus Vaccine Quad IM 3+ YRS 2016-08-21 00:00:00 Completed [facility] Influenza Virus Vaccine Quad IM 3+ YRS 2016-08-21 00:00:00 Completed [facility] Influenza Virus Vaccine Quad IM 3+ YRS 2016-08-21 00:00:00 Completed [facility] Influenza Virus Vaccine Quad IM 3+ YRS 2016-08-21 00:00:00 Completed [facility] Influenza Virus Vaccine Quad IM 3+ YRS 2016-08-21 00:00:00 Completed [facility] Influenza Virus Vaccine Quad IM 3+ YRS 2016-08-21 00:00:00 Completed [facility] Influenza Virus Vaccine Quad IM 3+ YRS 2016-08-21 00:00:00 Completed [facility] Influenza Virus Vaccine Quad IM 3+ YRS 2016-08-21 00:00:00 Completed [facility] Influenza Virus Vaccine Quad IM 3+ YRS 2016-08-21 00:00:00 Completed [facility] Influenza Virus Vaccine Quad IM 3+ YRS 2016-08-21 00:00:00 Completed [facility] Influenza Virus Vaccine 2016-08-20 00:00:00 Completed [facility] Influenza Virus Vaccine 2016-08-20 00:00:00 Completed [facility] Influenza Virus Vaccine 2016-08-20 00:00:00 Completed [facility] Influenza Virus Vaccine 2016-08-20 00:00:00 Completed [facility] Influenza Virus Vaccine 2016-08-20 00:00:00 Completed [facility] Influenza Virus Vaccine 2016-08-20 00:00:00 Completed [facility] Influenza Virus Vaccine 2016-08-20 00:00:00 Completed [facility] Influenza Virus Vaccine 2016-08-20 00:00:00 Completed [facility] Influenza Virus Vaccine 2016-08-20 00:00:00 Completed [facility] Influenza Virus Vaccine 2016-08-20 00:00:00 Completed [facility] Influenza Virus Vaccine 2016-08-20 00:00:00 Completed [facility] Influenza Virus Vaccine 2016-08-20 00:00:00 Completed [facility] Influenza Virus Vaccine 2016-08-20 00:00:00 Completed Influenza Virus Vaccine 2016-08-20 00:00:00 Completed Influenza Virus Vaccine 2016-08-20 00:00:00 Completed Influenza Virus Vaccine Quad IM 3+ YRS Unknown Completed [facility] Influenza Virus Vaccine Quad ID 18-64 YRS Unknown Completed [facility] Influenza Virus Vaccine Unknown Completed [facility] Influenza Virus Vaccine Quad IM, Preserv and ABX Free 6 MO-64 YRS (FLUCELVAX) Unknown Completed [facility] Influenza Virus Vaccine Quad IM 3+ YRS Unknown Completed [facility] Influenza Virus Vaccine Quad ID 18-64 YRS Unknown Completed [facility] Influenza Virus Vaccine Unknown Completed [facility] Influenza Virus Vaccine Quad IM, Preserv and ABX Free 6 MO-64 YRS (FLUCELVAX) Unknown Completed [facility] HPV9 Unknown Completed [facility] Influenza High Dose Unknown Completed [facility] Influenza Virus Vaccine Quad IM 3+ YRS Unknown Completed [facility] Influenza Virus Vaccine Quad ID 18-64 YRS Unknown Completed [facility] Influenza Virus Vaccine Unknown Completed [facility] Influenza Virus Vaccine Quad IM, Preserv and ABX Free 6 MO-64 YRS (FLUCELVAX) Unknown Completed [facility] Influenza High Dose Unknown Completed [facility] HPV9 Unknown Completed [facility] Influenza Virus Vaccine Quad IM 3+ YRS Unknown Completed [facility] Influenza Virus Vaccine Quad ID 18-64 YRS Unknown Completed [facility] Influenza Virus Vaccine Unknown Completed [facility] Influenza Virus Vaccine Quad IM, Preserv and ABX Free 6 MO-64 YRS (FLUCELVAX) Unknown Completed [facility] HPV9 Unknown Completed [facility] Influenza High Dose Unknown Completed [facility] Influenza Virus Vaccine Quad IM 3+ YRS Unknown Completed [facility] Influenza Virus Vaccine Quad ID 18-64 YRS Unknown Completed [facility] Influenza Virus Vaccine Unknown Completed [facility] Influenza Virus Vaccine Quad IM, Preserv and ABX Free 6 MO-64 YRS (FLUCELVAX) Unknown Completed [facility] HPV9 Unknown Completed [facility] Influenza High Dose Unknown Completed [facility] Influenza Virus Vaccine Quad IM 3+ YRS Unknown Completed [facility] Influenza Virus Vaccine Quad ID 18-64 YRS Unknown Completed [facility] Influenza Virus Vaccine Unknown Completed [facility] Influenza Virus Vaccine Quad IM, Preserv and ABX Free 6 MO-64 YRS (FLUCELVAX) Unknown Completed [facility] HPV9 Unknown Completed [facility] Influenza High Dose Unknown Completed [facility] Influenza Virus Vaccine Quad IM 3+ YRS Unknown Completed [facility] Influenza Virus Vaccine Quad ID 18-64 YRS Unknown Completed [facility] Influenza Virus Vaccine Unknown Completed [facility] Influenza Virus Vaccine Quad IM, Preserv and ABX Free 6 MO-64 YRS (FLUCELVAX) Unknown Completed [facility] HPV9 Unknown Completed [facility] Influenza High Dose Unknown Completed [facility] Influenza Virus Vaccine Quad IM 3+ YRS Unknown Completed [facility] Influenza Virus Vaccine Quad ID 18-64 YRS Unknown Completed [facility] Influenza Virus Vaccine Unknown Completed [facility] Influenza Virus Vaccine Quad IM, Preserv and ABX Free 6 MO-64 YRS (FLUCELVAX) Unknown Completed [facility] HPV9 Unknown Completed [facility] Influenza High Dose Unknown Completed [facility] Influenza Virus Vaccine Quad IM 3+ YRS Unknown Completed [facility] Influenza Virus Vaccine Quad ID 18-64 YRS Unknown Completed [facility] Influenza Virus Vaccine Unknown Completed [facility] Influenza Virus Vaccine Quad IM, Preserv and ABX Free 6 MO-64 YRS (FLUCELVAX) Unknown Completed [facility] HPV9 Unknown Completed [facility] Influenza High Dose Unknown Completed [facility] Influenza Virus Vaccine Quad IM 3+ YRS Unknown Completed [facility] Influenza Virus Vaccine Quad ID 18-64 YRS Unknown Completed [facility] Influenza Virus Vaccine Unknown Completed [facility] Influenza Virus Vaccine Quad IM, Preserv and ABX Free 6 MO-64 YRS (FLUCELVAX) Unknown Completed [facility] HPV9 Unknown Completed [facility] Influenza High Dose Unknown Completed [facility] TD Pres-Free Unknown Completed [facility] Influenza Virus Vaccine Quad IM 3+ YRS Unknown Completed [facility] Influenza Virus Vaccine Quad ID 18-64 YRS Unknown Completed [facility] Influenza Virus Vaccine Unknown Completed [facility] Influenza Virus Vaccine Quad IM, Preserv and ABX Free 6 MO-64 YRS (FLUCELVAX) Unknown Completed [facility] HPV9 Unknown Completed [facility] Influenza High Dose Unknown Completed [facility] TD Pres-Free Unknown Completed [facility] Influenza Virus Vaccine Quad IM 3+ YRS Unknown Completed [facility] Influenza Virus Vaccine Quad ID 18-64 YRS Unknown Completed [facility] Influenza Virus Vaccine Unknown Completed [facility] Influenza Virus Vaccine Quad IM, Preserv and ABX Free 6 MO-64 YRS (FLUCELVAX) Unknown Completed [facility] HPV9 Unknown Completed [facility] Influenza High Dose Unknown Completed [facility] TD Pres-Free Unknown Completed [facility] Influenza Virus Vaccine Quad IM 3+ YRS Unknown Completed [facility] Influenza Virus Vaccine Quad ID 18-64 YRS Unknown Completed [facility] Influenza Virus Vaccine Unknown Completed [facility] Influenza Virus Vaccine Quad IM, Preserv and ABX Free 6 MO-64 YRS (FLUCELVAX) Unknown Completed [facility] HPV9 Unknown Completed [facility] Influenza High Dose Unknown Completed [facility] TD Pres-Free Unknown Completed [facility] Influenza Virus Vaccine Quad IM 3+ YRS Unknown Completed [facility] Influenza Virus Vaccine Quad ID 18-64 YRS Unknown Completed [facility] Influenza Virus Vaccine Unknown Completed [facility] Influenza Virus Vaccine Quad IM, Preserv and ABX Free 6 MO-64 YRS (FLUCELVAX) Unknown Completed [facility] HPV9 Unknown Completed [facility] Influenza High Dose Unknown Completed [facility] TD Pres-Free Unknown Completed [facility] Influenza Virus Vaccine Quad IM 3+ YRS Unknown Completed [facility] Influenza Virus Vaccine Quad ID 18-64 YRS Unknown Completed [facility] Influenza Virus Vaccine Unknown Completed [facility] Influenza Virus Vaccine Quad IM, Preserv and ABX Free 6 MO-64 YRS (FLUCELVAX) Unknown Completed [facility] HPV9 Unknown Completed [facility] Influenza High Dose Unknown Completed [facility] TD Pres-Free Unknown Completed [facility] Influenza Virus Vaccine Quad IM 3+ YRS Unknown Completed [facility] Influenza Virus Vaccine Quad ID 18-64 YRS Unknown Completed [facility] Influenza Virus Vaccine Unknown Completed [facility] Influenza Virus Vaccine Quad IM, Preserv and ABX Free 6 MO-64 YRS (FLUCELVAX) Unknown Completed [facility] HPV9 Unknown Completed [facility] Influenza High Dose Unknown Completed [facility] TD Pres-Free Unknown Completed [facility] Influenza Virus Vaccine Quad IM 3+ YRS Unknown Completed [facility] Influenza Virus Vaccine Quad ID 18-64 YRS Unknown Completed [facility] Influenza Virus Vaccine Unknown Completed [facility] Influenza Virus Vaccine Quad IM, Preserv and ABX Free 6 MO-64 YRS (FLUCELVAX) Unknown Completed [facility] HPV9 Unknown Completed [facility] Influenza High Dose Unknown Completed [facility] TD Pres-Free Unknown [facility] Vaccine Quad IM 3+ YRS Unknown Completed [facility] Influenza Virus Vaccine Quad ID 18-64 YRS Unknown Completed [facility] Influenza Virus Vaccine Unknown Completed [facility] Influenza Virus Vaccine Quad IM, Preserv and ABX Free 6 MO-64 YRS (FLUCELVAX) Unknown Completed [facility] HPV9 Unknown Completed [facility] Influenza High Dose Unknown Completed [facility] TD Pres-Free Unknown Completed [facility] Influenza Virus Vaccine Quad IM 3+ YRS Unknown Completed [facility] Influenza Virus Vaccine Quad ID 18-64 YRS Unknown Completed [facility] Influenza Virus Vaccine Unknown Completed [facility] Influenza Virus Vaccine Quad IM, Preserv and ABX Free 6 MO-64 YRS (FLUCELVAX) Unknown Completed [facility] HPV9 Unknown Completed [facility] Influenza High Dose Unknown Completed [facility] TD Pres-Free Unknown Completed [facility] Influenza Virus Vaccine Quad IM 3+ YRS Unknown Completed [facility] Influenza Virus Vaccine Quad ID 18-64 YRS Unknown Completed [facility] Influenza Virus Vaccine Unknown Completed [facility] Influenza Virus Vaccine Quad IM, Preserv and ABX Free 6 MO-64 YRS (FLUCELVAX) Unknown Completed [facility] HPV9 Unknown Completed [facility] Influenza High Dose Unknown Completed [facility] TD Pres-Free Unknown Completed [facility] Influenza Virus Vaccine Quad IM 3+ YRS Unknown Completed [facility] Influenza Virus Vaccine Quad ID 18-64 YRS Unknown Completed [facility] Influenza Virus Vaccine Unknown Completed [facility] Influenza Virus Vaccine Quad IM, Preserv and ABX Free 6 MO-64 YRS (FLUCELVAX) Unknown Completed [facility] HPV9 Unknown Completed [facility] Influenza High Dose Unknown Completed [facility] TD Pres-Free Unknown Completed [facility] Influenza Virus Vaccine Quad IM 3+ YRS Unknown Completed [facility] Influenza Virus Vaccine Quad ID 18-64 YRS Unknown Completed [facility] Influenza Virus Vaccine Unknown Completed [facility] Influenza Virus Vaccine Quad IM, Preserv and ABX Free 6 MO-64 YRS (FLUCELVAX) Unknown Completed [facility] HPV9 Unknown Completed [facility] Influenza High Dose Unknown Completed [facility] TD Pres-Free Unknown Completed [facility] Influenza Virus Vaccine Quad IM 3+ YRS Unknown Completed [facility] Influenza Virus Vaccine Quad ID 18-64 YRS Unknown Completed [facility] Influenza Virus Vaccine Unknown Completed [facility] Influenza Virus Vaccine Quad IM, Preserv and ABX Free 6 MO-64 YRS (FLUCELVAX) Unknown Completed [facility] HPV9 Unknown Completed [facility] Influenza, High-Dose, Trivalent, PF (FLUZONE) Unknown Completed [facility] TD Pres-Free Unknown Completed [facility] Afluria Afluria Unknown Completed [facility] Afluria Afluria Unknown Completed [facility] Afluria [facility]fluria Unknown Completed [facility] Afluria Afluria Unknown Completed [facility] Afluria Unknown Completed [facility] Afluria Unknown Completed [facility] Afluria Unknown Completed [facility] Afluria Unknown Completed [facility] Afluria Unknown Completed [facility] Afluria Unknown Completed [facility] Afluria Afluria Unknown Completed [facility] Afluria Afluria Unknown Completed [facility] Afluria Afluria Unknown Completed [facility]fluria Afluria Unknown Completed [facility] Afluria Afluria Unknown Com[facility] Afluria Afluria Unknown Com[facility] Afluria Afluria Unknown Completed [facility] Afluria Afluria Unknown Completed [facility] Vital Signs Vital Name Observation Time Observation Value Comments S ource Respiratory rate 2024-04-05 08:56:00 19 /min [facility] Systolic blood pressure 2024-04-05 08:30:00 129 mm[Hg] [facility] Diastolic blood pressure 2024-04-05 08:30:00 94 mm[Hg] [facility] Heart rate 2024-04-05 05:12:00 97 /min [facility] [place] [facility] Body temperature 2024-04-05 05:12:00 36.83 Purvi [facility] Body height 2024-04-05 05:12:00 170.2 cm [facility] Body weight 2024-04-05 05:12:00 54.432 kg [facility] BMI 2024-04-05 05:12:00 18.79 kg/m2 [facility] Oxygen saturation in Arterial blood by Pulse oximetry 2024-04-05 05:12:00 96 /min [facility] Systolic blood pressure 2024-03-31 00:32:00 130 mm[Hg] [facility] Diastolic blood pressure 2024-03-31 00:32:00 104 mm[Hg] [facility] Heart rate 2024-03-31 00:32:00 125 /min [facility] Body temperature 2024-03-31 00:32:00 36.72 Purvi [facility] Respiratory rate 2024-03-31 00:32:00 16 /min [facility] Body height 2024-03-31 00:32:00 170.2 cm [facility] Body weight 2024-03-31 00:32:00 54.432 kg [facility] BMI 2024-03-31 00:32:00 18.79 kg/m2 [facility] Oxygen saturation in Arterial blood by Pulse oximetry 2024-03-31 00:32:00 100 /min [facility] Systolic blood pressure 2024-03-30 08:58:00 144 mm[Hg] [facility] Diastolic blood pressure 2024-03-30 08:58:00 94 mm[Hg] [facility] Heart rate 2024-03-30 08:58:00 115 /min [facility] Body temperature 2024-03-30 08:58:00 36.78 Purvi [facility] Respiratory rate 2024-03-30 08:58:00 20 /min [facility] Body height 2024-03-30 08:58:[address] [facility] Body weight 2024-03-30 08:58:[address] [facility] BMI 2024-03-30 08:58:00 18.79 kg/m2 [facility] Oxygen saturation in Arterial blood by Pulse oximetry 2024-03-30 08:58:00 100 /min [facility] Systolic blood pressure 2024-02-05 18:15:00 124 mm[Hg] [facility] Diastolic blood pressure 2024-02-05 18:15:00 85 mm[Hg] [facility] Heart rate 2024-02-05 18:15:00 93 /min [facility] Body height 2024-02-05 18:15:[address] [facility] Body weight 2024-02-05 18:15:[address] [facility] BMI 2024-02-05 18:15:00 19.59 kg/m2 [facility] Systolic blood pressure 2024 21:08:00 114 mm[Hg] [facility] Diastolic blood pressure 2024 21:08:00 85 mm[Hg] [facility] Heart rate 2024 21:08:00 98 /min [facility] Body temperature 2024 21:08:00 36.56 Purvi [facility] Respiratory rate 2024 21:08:00 18 /min [facility] Oxygen saturation in Arterial blood by Pulse oximetry 2024 21:08:00 100 /min [facility] Body height 2024 19:22:00 170.2 cm [facility] Body weight 2024 19:22:00 54.432 kg [facility] BMI 2024 19:22:00 18.79 kg/m2 [facility] Body height 2024-01-23 16:10:00 170.2 cm [facility] Body weight 2024-01-23 16:10:00 54.84 kg [facility] BMI 2024-01-23 16:10:00 18.94 kg/m2 [facility] Body height 2024-01-03 15:39:00 170.2 cm [facility] Body weight 2024-01-03 15:39:00 55.974 kg [facility] BMI 2024-01-03 15:39:00 19.33 kg/m2 [facility] Body weight 2023-12-28 01:00:00 54.432 kg [facility] BMI 2023-12-28 01:00:00 18.79 kg/m2 [facility] Systolic blood pressure 2023-12-27 23:55:00 113 mm[Hg] [facility] Diastolic blood pressure 2023-12-27 23:55:00 80 mm[Hg] [facility] Heart rate 2023-12-27 23:55:00 92 [facility] 2023-12-27 23:55:00 18 /min [facility] Oxygen saturation in Arterial blood by Pulse oximetry 2023-12-27 23:55:00 100 /min [facility] Body temperature 2023-12-27 20:34:00 37.17 Purvi [facility] Systolic blood pressure 2023-12-16 11:22:00 109 mm[Hg] [facility] Diastolic blood pressure 2023-12-16 11:22:00 77 mm[Hg] [facility] Heart rate 2023-12-16 11:22:00 110 /min [facility] Body temperature 2023-12-16 11:22:00 36.72 Purvi [facility] Respiratory rate 2023-12-16 11:22:00 20 /min [facility] Body height 2023-12-16 11:22:00 170.2 cm [facility] Body weight 2023-12-16 11:22:00 54.432 kg [facility] BMI 2023-12-16 11:22:00 18.79 kg/m2 [facility] Oxygen saturation in Arterial blood by Pulse oximetry 2023-12-16 11:22:00 100 /min [facility] Systolic blood pressure 2023-12-08 22:00:00 122 mm[Hg] [facility] Diastolic blood pressure 2023-12-08 22:00:00 80 mm[Hg] [facility] Heart rate 2023-12-08 22:00:00 130 /min [facility] Body temperature 2023-12-08 22:00:00 36.67 Purvi [facility] Respiratory rate 2023-12-08 22:00:00 18 /min [facility] Oxygen saturation in Arterial blood by Pulse oximetry 2023-12-08 22:00:00 100 /min [facility] Body height 2023-12-08 19:10:00 170.2 cm [facility] Body weight 2023-12-08 19:10:00 53.071 kg [facility] BMI 2023-12-08 19:10:00 18.32 kg/m2 [facility] Systolic blood pressure 2023-12-06 10:00:00 112 mm[Hg] [facility] Diastolic blood pressure 2023-12-06 10:00:00 78 mm[Hg] [facility] Heart rate 2023-12-06 09:21:07 116 /min [facility] Respiratory rate 2023-12-06 09:21:07 20 /min [facility] Oxygen saturation in Arterial blood by Pulse oximetry 2023-12-06 09:21:07 100 /min [facility] Body temperature 2023-12-06 01:47:00 36.67 Purvi [facility] Body height 2023-12-06 01:47:00 170.2 cm [facility] Body weight 2023-12-06 01:47:00 53.071 kg [facility] BMI 2023-12-06 01:47:00 18.32 kg/m2 [facility] Systolic blood pressure 2023-12-05 05:00:00 114 mm[Hg] [facility] Diastolic blood pressure 2023-12-05 05:00:00 83 mm[Hg] [facility] Heart rate 2023-12-05 05:00:00 116 [facility] Respiratory rate 2023-12-05 05:00:00 20 /min [facility] Oxygen saturation in Arterial blood by Pulse oximetry 2023-12-05 05:00:00 96 /min [facility] Body temperature 2023-12-05 02:52:00 36.94 Purvi [facility] Body height 2023-12-05 02:52:00 170.2 cm [facility] Body weight 2023-12-05 02:52:00 53.116 kg [facility] BMI 2023-12-05 02:52:00 18.34 kg/m2 [facility] Systolic blood pressure 2023-11-22 21:46:12 99 mm[Hg] [facility] Diastolic blood pressure 2023-11-22 21:46:12 57 mm[Hg] [facility] Heart rate 2023-11-22 21:46:12 99 /min [facility] Body temperature 2023-11-22 21:46:12 37.17 Purvi [facility] Respiratory rate 2023-11-22 21:46:12 16 /min [facility] Oxygen saturation in Arterial blood by Pulse oximetry 2023-11-22 21:46:12 97 /min [facility] Body height 2023-11-22 17:01:[address] [facility] Body weight 2023-11-22 17:01:[address] [facility] BMI 2023-11-22 17:01:00 18.32 kg/m2 [facility] Systolic blood pressure 2023-11-10 06:38:05 124 mm[Hg] [facility] Diastolic blood pressure 2023-11-10 06:38:05 99 mm[Hg] [facility] Heart rate 2023-11-10 06:38:05 99 /min [facility] Body temperature 2023-11-10 06:38:05 36.67 Purvi [facility] Respiratory rate 2023-11-10 06:38:05 16 /min [facility] Oxygen saturation in Arterial blood by Pulse oximetry 2023-11-10 06:38:05 99 /min [facility] Body height 2023-11-10 03:34:[address] [facility] Body weight 2023-11-10 03:34:00 47.628 kg [facility] BMI 2023-11-10 03:34:00 16.45 kg/m2 [facility] Systolic blood pressure 2023-11-09 12:26:00 119 mm[Hg] [facility] Diastolic blood pressure 2023-11-09 12:26:00 84 mm[Hg] [facility] Heart rate 2023-11-09 12:26:00 103 /[facility] Body temperature 2023-11-09 12:26:00 36.89 Purvi [facility] Respiratory rate 2023-11-09 12:26:00 20 /min [facility] Oxygen saturation in Arterial blood by Pulse oximetry 2023-11-09 12:26:00 100 /min [facility] Body weight 2023-11-09 08:29:00 53.479 kg [facility] BMI 2023-11-09 08:29:00 18.47 kg/m2 [facility] Body height 2023-11-06 21:32:00 170.2 cm [facility] Systolic blood pressure 2023-10-28 17:30:00 104 mm[Hg] [facility] Diastolic blood pressure 2023-10-28 17:30:00 78 mm[Hg] [facility] Heart rate 2023-10-28 17:30:00 112 /min [facility] Body temperature 2023-10-28 17:30:00 37.06 Purvi [facility] Respiratory rate 2023-10-28 17:30:00 20 /min [facility] Oxygen saturation in Arterial blood by Pulse oximetry 2023-10-28 17:30:00 99 /min [facility] Body height 2023-10-28 03:09:00 170.2 cm [facility] Body weight 2023-10-28 03:09:00 52.164 kg [facility] BMI 2023-10-28 03:09:00 18.01 kg/m2 [facility] Systolic blood pressure 2023-10-19 16:14:00 120 mm[Hg] [facility] Diastolic blood pressure 2023-10-19 16:14:00 87 mm[Hg] [facility] Heart rate 2023-10-19 16:14:00 98 /min [facility] Body temperature 2023-10-19 16:14:00 37.67 Purvi [facility] Respiratory rate 2023-10-19 16:14:00 18 /min [facility] Oxygen saturation in Arterial blood by Pulse oximetry 2023-10-19 16:14:00 98 /min [facility] Body height 2023-10-19 15:44:[address] [facility] Body weight 2023-10-19 15:44:00 52.164 kg [facility] BMI 2023-10-19 15:44:00 18.01 kg/m2 [facility] Systolic blood pressure 2023-10-19 00:36:06 120 mm[Hg] [facility] Diastolic blood pressure 2023-10-19 00:36:06 89 mm[Hg] [facility] Heart rate 2023-10-19 00:36:06 129 /min [facility] Respiratory rate 2023-10-19 00:36:06 15 /min [facility] Oxygen saturation in Arterial blood by Pulse oximetry 2023-10-19 00:36:06 96 /min [facility] Body temperature 2023-10-19 00:32:00 37.11 Purvi [facility] Body height 2023-10-19 00:32:00 170.2 cm [facility] Body weight 2023-10-19 00:32:00 52.164 kg [facility] BMI 2023-10-19 00:32:00 18.01 kg/m2 [facility] Systolic blood pressure 2023-09-21 16:40:00 125 mm[Hg] [place] [facility] Diastolic blood pressure 2023-09-21 16:40:00 89 mm[Hg] [facility] Heart rate 2023-09-21 16:40:00 92 /min [facility] Body temperature 2023-09-21 16:40:00 36.11 Purvi [facility] Respiratory rate 2023-09-21 16:40:00 19 /min [facility] Oxygen saturation in Arterial blood by Pulse oximetry 2023-09-21 16:40:00 98 /min [facility] Body weight 2023-09-21 07:35:00 52.98 kg [facility] BMI 2023-09-21 07:35:00 18.29 kg/m2 [facility] Body height 2023-09-19 16:50:00 170.2 cm [facility] Systolic blood pressure 2023-09-15 18:00:00 136 mm[Hg] [facility] Diastolic blood pressure 2023-09-15 18:00:00 95 mm[Hg] [facility] Heart rate 2023-09-15 18:00:00 94 /min [facility] Body temperature 2023-09-15 18:00:00 36.83 Purvi [facility] Respiratory rate 2023-09-15 18:00:00 10 /min [facility] Oxygen saturation in Arterial blood by Pulse oximetry 2023-09-15 18:00:00 97 /min [facility] Body height 2023-09-15 16:25:00 170.2 cm [facility] Body weight 2023-09-15 16:25:00 53.524 kg [facility] BMI 2023-09-15 16:25:00 18.48 kg/m2 [facility] Systolic blood pressure 2023-09-14 00:00:00 120 mm[Hg] [facility] Diastolic blood pressure 2023-09-14 00:00:00 90 mm[Hg] [facility] Heart rate 2023-09-14 00:00:00 115 [facility] Body temperature 2023-09-14 00:00:00 37.06 Purvi [facility] Oxygen saturation in Arterial blood by Pulse oximetry 2023-09-14 00:00:00 98 /min [facility] Respiratory rate 2023-09-13 23:03:00 16 /min [facility] Body height 2023-09-13 23:03:00 170.2 cm [facility] Body weight 2023-09-13 23:03:00 53.524 kg [facility] BMI 2023-09-13 23:03:00 18.48 kg/m2 [facility] height 2023-06-11 10:30:00 67 [in_i] Commo n [facility] weight 2023-06-11 10:30:00 110 [lb_av] Comm on [facility] bmi 2023-06-11 10:30:00 17.23 kg/m2 Comm on [facility] Systolic blood pressure 2023-04-30 20:12:00 129 mm[Hg] [facility] Diastolic blood pressure 2023-04-30 20:12:00 87 mm[Hg] [facility] Heart rate 2023-04-30 20:12:00 118 /min [facility] Body temperature 2023-04-30 20:12:00 36.72 Purvi [facility] Respiratory rate 2023-04-30 20:12:00 14 /min [facility] Body weight 2023-04-30 20:12:00 48.988 kg [facility] BMI 2023-04-30 20:12:00 16.92 kg/m2 [facility] Oxygen saturation in Arterial blood by Pulse oximetry 2023-04-30 20:12:00 100 /min [facility] Systolic blood pressure 2023-04-27 15:00:00 114 mm[Hg] [facility] Diastolic blood pressure 2023-04-27 15:00:00 86 mm[Hg] [facility] Heart rate 2023-04-27 15:00:00 105 /min [facility] Oxygen saturation in Arterial blood by Pulse oximetry 2023-04-27 15:00:00 99 /min [facility] Respiratory rate 2023-04-27 12:00:00 18 /min [facility] Body temperature 2023-04-27 10:00:00 36 Purvi [facility] Body weight 2023-04-27 10:00:00 49.487 kg [facility] BMI 2023-04-27 10:00:00 17.09 kg/m2 [facility] Body height 2023-04-24 21:18:00 170.2 cm [facility] height 2023-03-06 13:10:00 67 [in_i] Commo n [facility] weight 2023-03-06 13:10:00 110 [lb_av] Comm on [facility] bmi 2023-03-06 13:10:00 17.23 kg/m2 Comm on [facility] blood pressure systolic 2023-03-06 13:10:00 129 mm[Hg] [facility] blood pressure diastolic 2023-03-06 13:10:00 84 mm[Hg] [facility] height 2023-01-04 09:20:00 67 [in_i] Commo n [facility] weight 2023-01-04 09:20:00 110 [lb_av] Comm on [facility] bmi 2023-01-04 09:20:00 17.23 kg/m2 Comm on [facility] blood pressure systolic 2023-01-04 09:20:00 123 mm[Hg] [facility] blood pressure diastolic 2023-01-04 09:20:00 70 mm[Hg] [facility] Systolic blood pressure 2022-12-12 14:09:00 135 mm[Hg] [facility] Diastolic blood pressure 2022-12-12 14:09:00 89 mm[Hg] [facility] Heart rate 2022-12-12 14:08:00 123 /min [facility] Body temperature 2022-12-12 14:08:00 36.83 Purvi [facility] Respiratory rate 2022-12-12 14:08:00 14 /min [facility] Body weight 2022-12-12 14:08:00 48.535 kg [facility] BMI 2022-12-12 14:08:00 16.76 kg/m2 [facility] Oxygen saturation in Arterial blood by Pulse oximetry 2022-12-12 14:08:00 99 /min [facility] Systolic blood pressure 2022-11-13 20:53:00 121 mm[Hg] [facility] Diastolic blood pressure 2022-11-13 20:53:00 83 mm[Hg] [facility] Heart rate 2022-11-13 20:53:00 108 [facility] Body temperature 2022-11-13 20:53:00 37.06 Purvi [facility] Respiratory rate 2022-11-13 20:53:00 18 /min [facility] Oxygen saturation in Arterial blood by Pulse oximetry 2022-11-13 20:53:00 100 /min [facility] Body height 2022-11-11 01:42:00 170.2 cm [facility] Body weight 2022-11-11 01:42:00 47.174 kg [facility] BMI 2022-11-11 01:42:00 16.29 kg/m2 [facility] Systolic blood pressure 2022-11-07 16:10:00 146 mm[Hg] [facility] Diastolic blood pressure 2022-11-07 16:10:00 89 mm[Hg] [facility] Heart rate 2022-11-07 16:10:00 96 [facility] Body temperature 2022-11-07 16:10:00 36.39 Purvi [facility] Respiratory rate 2022-11-07 16:10:00 16 /min [facility] Oxygen saturation in Arterial blood by Pulse oximetry 2022-11-07 16:10:00 98 /min [facility] Body weight 2022-11-07 08:47:00 48.988 kg [facility] BMI 2022-11-07 08:47:00 16.92 kg/m2 [facility] Body height 2022-11-06 11:23:00 170.2 cm [facility] height 2022-10-30 16:50:00 67 [in_i] [facility] weight 2022-10-30 16:50:00 99 [lb_av] [facility] bmi 2022-10-30 16:50:00 15.5 kg/m2 [facility] blood pressure systolic 2022-10-30 16:50:00 121 mm[Hg] [facility] blood pressure diastolic 2022-10-30 16:50:00 70 mm[Hg] [facility] Systolic blood pressure 2022-08-28 01:39:00 125 mm[Hg] [facility] Diastolic blood pressure 2022-08-28 01:39:00 96 mm[Hg] [facility] Heart rate 2022-08-28 01:39:00 95 /min [facility] Body temperature 2022-08-28 01:39:00 36.5 Purvi [facility] Respiratory rate 2022-08-28 01:39:00 16 /min [facility] Body height 2022-08-28 01:39:00 170.2 cm [facility] Body weight 2022-08-28 01:39:00 47.628 kg [facility] BMI 2022-08-28 01:39:00 16.45 kg/m2 [facility] Oxygen saturation in Arterial blood by Pulse oximetry 2022-08-28 01:39:00 100 /min [facility] height 2022-07-31 16:20:00 67 [in_i] Commo n [facility] weight 2022-07-31 16:20:00 98 [lb_av] Commo n [facility] bmi 2022-07-31 16:20:00 15.35 kg/m2 Comm on [facility] blood pressure systolic 2022-07-31 16:20:00 120 mm[Hg] [facility] blood pressure diastolic 2022-07-31 16:20:00 74 mm[Hg] [facility] height 2022-06-01 08:50:00 67 [in_i] Commo n [facility] weight 2022-06-01 08:50:00 96.9 [lb_av] Com [facility] temperature 2022-06-01 08:50:00 96.8 [degF] Com [facility] bmi 2022-06-01 08:50:00 15.18 kg/m2 Comm on [facility] oximetry 2022-06-01 08:50:00 99 % Commo n [facility] respiratory rate 2022-06-01 08:50:00 18 /min [facility] blood pressure systolic 2022-06-01 08:50:00 118 mm[Hg] [facility] blood pressure diastolic 2022-06-01 08:50:00 77 mm[Hg] [facility] Systolic blood pressure 2022-04-13 01:48:00 138 mm[Hg] [facility] Diastolic blood pressure 2022-04-13 01:48:00 91 mm[Hg] [facility] Heart rate 2022-04-13 01:48:00 81 /min [facility] Respiratory rate 2022-04-13 01:48:00 16 /min [facility] Oxygen saturation in Arterial blood by Pulse oximetry 2022-04-13 01:48:00 98 /min [facility] Body temperature 2022-04-12 21:03:00 36.72 Purvi [facility] Body weight 2022-04-12 21:03:00 45.36 kg [facility] BMI 2022-04-12 21:03:00 15.66 kg/m2 [facility] Systolic blood pressure 2022-04-09 05:47:00 138 mm[Hg] [facility] Diastolic blood pressure 2022-04-09 05:47:00 104 mm[Hg] [facility] Heart rate 2022-04-09 05:47:00 112 /min [facility] Body temperature 2022-04-09 05:47:00 36.61 Purvi [facility] Respiratory rate 2022-04-09 05:47:00 16 /min [facility] Body height 2022-04-09 05:47:00 170.2 cm [facility] Body weight 2022-04-09 05:47:00 45.36 kg [facility] BMI 2022-04-09 05:47:00 15.66 kg/m2 [facility] Oxygen saturation in Arterial blood by Pulse oximetry 2022-04-09 05:47:00 100 /min [facility] Systolic blood pressure 2022-04-05 20:08:00 149 mm[Hg] [facility] Diastolic blood pressure 2022-04-05 20:08:00 114 mm[Hg] [facility] Heart rate 2022-04-05 20:08:00 108 /min [facility] Body temperature 2022-04-05 20:08:00 36.61 Purvi [facility] Respiratory rate 2022-04-05 20:08:00 16 /min [facility] Body height 2022-04-05 20:08:00 170.2 cm [facility] Body weight 2022-04-05 20:08:00 45.36 kg [facility] BMI 2022-04-05 20:08:00 15.66 kg/m2 [facility] Oxygen saturation in Arterial blood by Pulse oximetry 2022-04-05 20:08:00 100 /min [facility] height 2022-03-02 07:50:00 67 [in_i] Commo n [facility] weight 2022-03-02 07:50:00 105 [lb_av] Comm on [facility] temperature 2022-03-02 07:50:00 98 [degF] Comm on [facility] bmi 2022-03-02 07:50:00 16.44 kg/m2 Comm on [facility] blood pressure systolic 2022-03-02 07:50:00 120 mm[Hg] [facility] blood pressure diastolic 2022-03-02 07:50:00 76 mm[Hg] [facility] height 2022-01-02 11:40:00 67 [in_i] Commo n [facility] weight 2022-01-02 11:40:00 105 [lb_av] Comm on [facility] bmi 2022-01-02 11:40:00 16.44 kg/m2 Comm on [facility] blood pressure systolic 2022-01-02 11:40:00 125 mm[Hg] [facility] blood pressure diastolic 2022-01-02 11:40:00 76 mm[Hg] [facility] Systolic blood pressure 2021-12-04 20:56:00 124 mm[Hg] [facility] Diastolic blood pressure 2021-12-04 20:56:00 89 mm[Hg] [facility] Heart rate 2021-12-04 20:56:00 156 [facility] 2021-12-04 20:56:00 170.2 cm [facility] Body weight 2021-12-04 20:56:00 46.72 kg [facility] BMI 2021-12-04 20:56:00 16.13 kg/m2 [facility] height 2021-10-17 08:00:00 67 [in_i] Commo n [facility] weight 2021-10-17 08:00:00 109 [lb_av] Comm on [facility] temperature 2021-10-17 08:00:00 98 [degF] Comm on [facility] bmi 2021-10-17 08:00:00 17.07 kg/m2 Comm on [facility] blood pressure systolic 2021-10-17 08:00:00 130 mm[Hg] [facility] blood pressure diastolic 2021-10-17 08:00:00 80 mm[Hg] [facility] height 2021-10-05 08:30:00 67 [in_i] Commo n [facility] weight 2021-10-05 08:30:00 109.1 [lb_av] Co mmon [facility] temperature 2021-10-05 08:30:00 97.7 [degF] Com mon [facility] bmi 2021-10-05 08:30:00 17.09 kg/m2 Comm on [facility] oximetry 2021-10-05 08:30:00 100 % Commo n [facility] respiratory rate 2021-10-05 08:30:00 18 /min Common [facility] blood pressure systolic 2021-10-05 08:30:00 137 mm[Hg] [facility] blood pressure diastolic 2021-10-05 08:30:00 89 mm[Hg] Common [facility] height 2021-07-13 15:00:00 67 [in_i] Commo n [facility] weight 2021-07-13 15:00:00 103.5 [lb_av] Co mmon [facility] temperature 2021-07-13 15:00:00 97.9 [degF] Com mon [facility] bmi 2021-07-13 15:00:00 16.21 kg/m2 Comm on [facility] oximetry 2021-07-13 15:00:00 100 % Commo n [facility] respiratory rate 2021-07-13 15:00:00 17 /min Common [facility] blood pressure systolic 2021-07-13 15:00:00 129 mm[Hg] Common [facility] blood pressure diastolic 2021-07-13 15:00:00 85 mm[Hg] Common [facility] height 2021-05-19 11:10:00 67 [in_i] Commo n [facility] weight 2021-05-19 11:10:00 107 [lb_av] Comm on [facility] temperature 2021-05-19 11:10:00 97.5 [degF] Com mon [facility] bmi 2021-05-19 11:10:00 16.76 kg/m2 Comm on [facility] height 2021-03-21 11:30:00 67 [in_i] Commo n [facility] weight 2021-03-21 11:30:00 107 [lb_av] Comm on [facility] temperature 2021-03-21 11:30:00 98 [degF] Comm on [facility] bmi 2021-03-21 11:30:00 16.76 kg/m2 Comm on [facility] blood pressure systolic 2021-03-21 11:30:00 125 mm[Hg] Common [facility] blood pressure diastolic 2021-03-21 11:30:00 75 mm[Hg] Common [facility] height 2021-01-09 16:40:00 67 [in_i] Commo n [facility] weight 2021-01-09 16:40:00 105 [lb_av] Comm on [facility] temperature 2021-01-09 16:40:00 98.5 [degF] Com mon [facility] bmi 2021-01-09 16:40:00 16.44 kg/m2 Comm on [facility] Procedures Procedure Date / Time Performed Performing Clinician Source CT ANGIOGRAM HEAD 2024-04-05 06:45:52 Michelle Patiño [facility] CT ANGIOGRAM NECK 2024-04-05 06:45:52 Michelle Patiño [facility] XR CHEST 1 VW 2024-04-05 06:43:02 Haroon [facility] URINE DRUG (IMMUNOASSAY) - COMPREHENSIVE DRUG SCREEN 2024-04-05 05:37:[address] [facility] 2024-04-05 05:37:00 Michelle Patiño [facility] LIPASE 2024-04-05 05:22:00 Michelle Patiño [facility] TEST, SERUM 2024-04-05 05:22:00 Sarai Patiño [facility] TROPONIN I 2024-04-05 05:22:00 Michelle Patiño [facility] COMP. METABOLIC PANEL ([id number]) 2024-04-05 05:22:[address] [facility] ETHANOL 2024-04-05 05:22:00 Michelle Patiño [facility] CBC WITH DIFF 2024-04-05 05:22:00 Haroon [facility] PROTHROMBIN TIME / INR 2024-04-05 05:22:00 Sadiq Patiño [facility] ED LACERATION REPAIR 2024-03-31 03:15:23 Vincent Hernandez [facility] CT MAXILLOFACIAL/MANDIBLE WO CONTRAST 2024-03-31 01:22:29 Valeria Hernandez [facility] CT TRAUMA HEAD WO CONTRAST 2024-03-31 01:22:29 Valeria Hernandez [facility] RAPID STREP SCREEN FOR GROUP A 2024 20:21:00 Reji Johansen [facility] POCT TEST 2024 20:17:00 Reji Johansen [facility] XR WRIST 3+ VW RIGHT 2024-01-03 15:50:47 González Ross [facility] POCT TEST 2023-12-08 20:33:00 Madhuri Cabrera [facility] URINALYSIS 2023-12-08 20:04:00 Krista Cabrera [facility] URINE DRUG (IMMUNOASSAY) - COMPREHENSIVE DRUG SCREEN W/O REFLEX 2023-12-08 20:04:00 Krista Cabrera [facility] AC PANEL 21 + LACTIC ACID 2023-12-08 19:29:00 Krista Cabrera [facility] LIPASE 2023-12-08 19:21:00 Krista Cabrera [facility] MAGNESIUM 2023-12-08 19:21:00 Krista Cabrera [facility] COMP. METABOLIC PANEL ([id number]) 2023-12-08 19:21[facility]00 [facility] 2023-12-08 19:21:00 Krista Cabrera [facility] CBC WITH DIFF 2023-12-08 19:21:00 Krista Cabrera [facility] ETHANOL 2023-12-06 08:39:00 Trino Ashford [facility] COMP. METABOLIC PANEL ([id number]) 2023-12-06 02:31:00 Bashir [facility] ETHANOL 2023-12-06 02:31:00 Valeria Hernandez [facility] CBC WITH DIFF 2023-12-06 02:31:00 Bashir [facility] POCT TEST 2023-12-05 03:09:00 Jonelle Connell [facility] TEST, URINE 2023-12-05 03:01:00 Romana Connell [facility] COMP. METABOLIC PANEL ([id number]) 2023-12-05 03:01:00 Jonelle Connell [facility] SALICYLATE 2023-12-05 03:01:00 Jonelle Connell [facility] ETHANOL 2023-12-05 03:01:00 Luisito Jonelle [facility] CBC WITH DIFF 2023-12-05 03:01:00 Jonelle Connell [facility] URINALYSIS 2023-12-05 03:01:00 Luisito Jonelle [facility] URINE DRUG (IMMUNOASSAY) - COMPREHENSIVE DRUG SCREEN W/O REFLEX 2023-12-05 03:01:[address] [facility] [address] CERVICAL SPINE WO CONTRAST 2023-11-22 18:24:35 Nba Balderas [facility] CT HEAD WO CONTRAST 2023-11-22 18:24:35 Dalton Balderas [facility] LIPASE 2023-11-22 17:12:00 [facility] 2023-11-22 17:12:00 Nba Balderas Un [facility] COMP. METABOLIC PANEL ([id number]) 2023-11-22 17:12:00 Nba Balderas [facility] TOTAL BETA HCG ASSAY 2023-11-22 17:12:00 Hany Balderas [facility] ETHANOL 2023-11-22 17:12:00 [facility] DIFF 2023-11-22 17:12:00 [facility] D-DIMER 2023-11-22 17:12:00 [facility] INFLUENZA A/B RSV COVID NAAT 2023-11-10 04:53:00 Alyssia Miranda [facility] POCT TEST 2023-11-10 04:25:00 Alyssia Montelongo [facility] URINALYSIS 2023-11-10 04:21:00 Alyssia Miranda [facility] URINE DRUG (IMMUNOASSAY) - COMPREHENSIVE DRUG SCREEN W/O REFLEX 2023-11-10 04:21:00 Alyssia Miranda [facility] CREATINE KINASE 2023-11-10 04:14:00 Alyssia Miranda [facility] THYROID STIMULATING HORMONE 2023-11-10 04:14:00 Alyssia Miranda [facility] COMP. METABOLIC PANEL ([id number]) 2023-11-10 04:14:00 Alyssia Miranda [facility] SALICYLATE 2023-11-10 04:14:00 Alyssia Miranda Lea [facility] ETHANOL 2023-11-10 04:14:00 Alyssia Miranda [facility] CBC WITH DIFF 2023-11-10 04:14:00 Alyssia Miranda Lea [facility] PHOSPHORUS 2023-11-09 10:12:00 Solo Devi [facility] MAGNESIUM 2023-11-09 10:12:00 Marito [facility] HEPATIC FUNCTION PANEL ([id number]) (ALB,T.PRO,BILI T,BU/BC,ALT,AST,ALK PHOS) 2023-11-09 10:12:00 [facility] (NA, K, CL, CO2, GLUCOSE, BUN, CREATININE, CA) 2023-11-09 10:12:00 [facility] WITHOUT DIFF 2023-11-09 10:12:00 [facility] 2023-11-08 20:35:00 William Castorena [facility] MAGNESIUM 2023-11-08 20:35:00 William Castorena [facility] BASIC METABOLIC PANEL (NA, K, CL, CO2, GLUCOSE, BUN, CREATININE, CA) 2023-11-08 20:35:00 William Castorena [facility] CT HEAD WO CONTRAST 2023-11-08 10:42:52 William Castorena [facility] PHOSPHORUS 2023-11-08 08:59:00 Marito [facility] MAGNESIUM 2023-11-08 08:59:00 Marito [facility] VITAMIN B12, LEVEL 2023-11-08 08:59:00 Marito [facility] FOLATE 2023-11-08 08:59:00 Marito [facility] HEPATIC FUNCTION PANEL ([id number]) (ALB,T.PRO,BILI T,BU/BC,ALT,AST,ALK PHOS) 2023-11-08 08:59:00 Marito [facility] BASIC METABOLIC PANEL (NA, K, CL, CO2, GLUCOSE, BUN, CREATININE, CA) 2023-11-08 08:59:00 Marito [facility] CBC WITHOUT DIFF 2023-11-08 08:59:00 Solo Devi [facility] HEPATIC FUNCTION PANEL ([id number]) (ALB,T.PRO,BILI T,BU/BC,ALT,AST,ALK PHOS) 2023-11-07 07:22:00 Marito [facility] BASIC METABOLIC PANEL (NA, K, CL, CO2, GLUCOSE, BUN, CREATININE, CA) 2023-11-07 07:22:00 Brandon [facility] CBC WITH DIFF 2023-11-07 07:22:00 Eduar Echevarria [facility] LACTIC ACID WHOLE BLOOD 2023-11-07 07:22:00 Nichole Castorena mmad [facility] PHOSPHORUS 2023-11-07 00:58:00 Eduar Echevarria [facility] MAGNESIUM 2023-11-07 00:58:00 Eduar Echevarria [facility] ACUTE CARE VENOUS BLOOD GAS 2023-11-07 00:57:00 Eduar Echevarria [facility] LACTIC ACID WHOLE BLOOD 2023-11-07 00:57:00 Kev Echevarria [facility] MRSA / MSSA SCREEN BY SIDRA PAPPAS 2023-11-06 21:48:00 Eduar Echevarria [facility] CRITICAL CARE 2023-11-06 20:43:53 Krista Cabrera [facility] POCT TEST 2023-11-06 19:25:00 Madhuri Cabrera [facility] HB ECG ROUTINE & RHYTHM STRIP 2023-11-06 19:10:21 Krista Cabrera [facility] URINALYSIS 2023-11-06 18:51:00 [facility] URINE DRUG (IMMUNOASSAY) - COMPREHENSIVE DRUG SCREEN W/O REFLEX 2023-11-06 18:51:00 Krista Cabrera [facility] LIPASE 2023-11-06 18:43:00 Krista Cabrera [facility] MAGNESIUM 2023-11-06 18:43:00 Krista Cabrera [facility] TROPONIN I 2023-11-06 18:43:00 Krista Cabrera [facility] COMP. METABOLIC PANEL ([id number]) 2023-11-06 18:43:00 Krisat Cabrera [facility] ETHANOL 2023-11-06 18:43:00 Krista Cabrera [facility] CBC WITH DIFF 2023-11-06 18:43:00 Krista Cabrera [facility] N-TERMINAL PRO-BNP 2023-11-06 18:43:00 [facility] AC PANEL 21 + LACTIC ACID 2023-11-06 18:43:00 Krista Cabrera [facility] ETHANOL 2023-10-28 16:15:00 Jonelle Connell [facility] ETHANOL 2023-10-28 11:09:00 Trino Ashford [facility] POCT TEST 2023-10-28 03:42:00 Mia Marroquin ra [facility] COMP. METABOLIC PANEL ([id number]) 2023-10-28 03:27:00 Clementina Marroquin [facility] SALICYLATE 2023-10-28 03:27:00 [facility] 2023-10-28 03:27:00 Clement[facility] CBC WITH DIFF 2023-10-28 03:27:00 [facility] URINALYSIS 2023-10-28 03:27:00 Clementina Marroquin Un [facility] INFLUENZA A/B RSV COVID NAAT 2023-10-28 03:27:00 Clementina Marroquin [facility] LAB ONLY COVID INTERPRETATION 2023-10-28 03:27:00 Clementina Marroquin [facility] URINE DRUG (IMMUNOASSAY) - COMPREHENSIVE DRUG SCREEN W/O REFLEX 2023-10-28 03:27:00 Clementina Marroquin [facility] POCT GLUCOSE(AGE >30DAYS) 2023-10-19 15:53:00 Zoë Singletary [facility] POCT GLUCOSE (AUTOMATED) 2023-10-19 15:52:00 Julio Singletary [facility] BASIC METABOLIC PANEL (NA, K, CL, CO2, GLUCOSE, BUN, CREATININE, CA) 2023-09-21 08:28:00 Baldev Braga [facility] PHOSPHORUS 2023-09-20 09:24:00 Solo Devi [facility] LIPASE 2023-09-20 09:24:00 [facility] MAGNESIUM 2023-09-20 09:24:00 Marito [facility] HEPATIC FUNCTION PANEL ([id number]) (ALB,T.PRO,BILI T,BU/BC,ALT,AST,ALK PHOS) 2023-09-20 09:24:00 Solo Devi [facility] BASIC METABOLIC PANEL (NA, K, CL, CO2, GLUCOSE, BUN, CREATININE, CA) 2023-09-20 09:24:00 Marito [facility] CBC WITH DIFF 2023-09-20 09:24:00 Solo Devi [facility] PROTHROMBIN TIME / INR 2023-09-20 09:24:00 Me harleen Frost [facility] D-DIMER 2023-09-20 09:24:00 Santosh [facility] ACTIVATED PARTIAL THRMPLAS DAKOTAH 2023-09-20 09:24:00 Santosh [facility] PROCALCITONIN 2023-09-20 09:24:00 [facility] LACTIC ACID WHOLE BLOOD 2023-09-19 20:59:00 Jose Quintanilla [facility] COVID-19 (ID NOW RAPID TESTING) 2023-09-19 20:58:00 Jose Quintanilla [facility] LAB ONLY COVID INTERPRETATION 2023-09-19 20:58:00 Jose Quintanilla [facility] XR CHEST 1 VW 2023-09-19 17:13:36 Jose Quintanilla [facility] BLOOD CULTURE SCREEN 2023-09-19 17:06:00 Jose Quintanilla [facility] CREATINE KINASE 2023-09-19 17:06:00 [facility] 2023-09-19 17:06:00 Jose Quintanilla [facility] COMP. METABOLIC PANEL ([id number]) 2023-09-19 17:06:00 Jose Quintanilla [facility] CBC WITH DIFF 2023-09-19 17:06:00 Jose Quintanilla [facility] LACTIC ACID WHOLE BLOOD 2023-09-19 17:05:00 Jose Quintanilla [facility] EKG-12 LEAD 2023-09-19 16:54:29 Solo Devi [facility] CT CHEST PULMONARY ANGIOGRAM 2023-09-15 17:19:16 Juan Carlos [facility] POCT TEST 2023-09-15 16:53:00 Viola Rangel [facility] TROPONIN I 2023-09-15 16:49:00 [facility]. METABOLIC PANEL ([id number]) 2023-09-15 16:49:00 Cecile Rangel [facility] CBC WITH DIFF 2023-09-15 16:49:00 Cecile Rangel [facility] D-DIMER 2023-09-15 16:49:00 Cecile Rangel [facility] URINALYSIS 2023-09-15 16:49:00 Cecile Rangel [facility] N-TERMINAL PRO-BNP 2023-09-15 16:49:00 Ria Rangel [facility] LACTIC ACID WHOLE BLOOD 2023-09-15 16:48:00 Vivek Rangel [facility] HB ECG ROUTINE & RHYTHM STRIP 2023-09-15 16:44:45 Cecile Rangel [facility] POCT TEST 2023-09-14 00:14:00 Brenden Olmstead [facility] XR CHEST 2 VW 2023-09-14 00:08:48 Ishan [facility] RAPID STREP SCREEN FOR GROUP A 2023-09-13 23:31:00 Ishan [facility] RAPID INFLUENZA A/B 2023-09-13 23:31:00 Brenden Olmstead [facility] COVID-19 (ID NOW RAPID TESTING) 2023-09-13 23:31:00 Eleno Olmstead [facility] MAGNESIUM 2023-04-27 10:01:00 William Castorena [facility] COMP. METABOLIC PANEL ([id number]) 2023-04-27 10:01:00 William Castorena [facility] CBC WITH DIFF 2023-04-27 10:01:00 [facility] TRANSTHORACIC ECHO (TTE) COMPLETE 2023-04-26 20:20:00 Eduar Echevarria [facility] LIPASE 2023-04-26 11:39:00 William Castorena [facility] MAGNESIUM 2023-04-26 11:39:00 William Castorena [facility] COMP. METABOLIC PANEL ([id number]) 2023-04-26 11:39:00 William Castorena [facility] CBC WITH DIFF 2023-04-26 11:39:00 [facility] / INR 2023-04-26 11:39:00 Nat Castorena [facility] ACTIVATED PARTIAL THRMPLAS DAKOTAH 2023-04-26 11:39:00 William Castorena [facility] URINE DRUG (IMMUNOASSAY) - COMPREHENSIVE DRUG SCREEN 2023-04-25 10:51:00 William Castorena [facility] LIPASE 2023-04-25 10:46:00 William Castorena [facility] MAGNESIUM 2023-04-25 10:46:00 William Castorena [facility] COMP. METABOLIC PANEL ([id number]) 2023-04-25 10:46:00 William Castorena [facility] CBC WITH DIFF 2023-04-25 10:46:00 [facility] PROT[facility] / INR 2023-04-25 10:46:00 Nat Castorena [facility] ACTIVATED PARTIAL THRMPLAS DAKOTAH 2023-04-25 10:46:00 William Castorena [facility] N-TERMINAL PRO-BNP 2023-04-25 10:46:00 William Castorena [facility] LACTIC ACID WHOLE BLOOD 2023-04-25 10:46:00 Nichole Castorena mmad [facility] PHOSPHORUS 2023-04-25 04:50:00 William Castorena [facility] CT ABDOMEN PELVIS W CONTRAST 2023-04-25 01:17:35 Jose Quintanilla [facility] URINALYSIS 2023-04-24 23:43:00 Jose Quintanilla [facility] POCT TEST 2023-04-24 23:41:00 Jose Quintanilla e [facility] AMMONIA, PLASMA 2023-04-24 23:32:00 [facility] HB [facility] ROUTINE & RHYTHM STRIP 2023-04-24 22:36:50 Jose Quintanilla [facility] LIPASE 2023-04-24 22:23:00 [facility] 2023-04-24 22:23:00 Jose Quintanilla [facility] COMP. METABOLIC PANEL ([id number]) 2023-04-24 22:23:00 Jose Quintanilla [facility] ETHANOL 2023-04-24 22:23:00 [facility] CBC WITH DIFF 2023-04-24 22:23:00 Jose Quintanilla [facility] PROTHROMBIN TIME / INR 2023-04-24 22:23:00 Jose Quintanilla [facility] ACTIVATED PARTIAL THRMPLAS DAKOTAH 2023-04-24 22:23:00 Jose Quintanilla [facility] CONSENT/REFUSAL FOR DIAGNOSIS AND TREATMENT 2023-04-24 21:03:16 Doctor Unassigned, [place] [facility] XR FOOT 3+ VW LEFT 2022-12-12 14:30:15 [facility] ASSIGN[facility] OF BENEFITS 2022-12-12 14:03:23 Docto r Unassigned, [place] [facility] CONSENT/REFUSAL FOR DIAGNOSIS AND TREATMENT 2022-12-12 14:03:11 Doctor Unassigned, [place] [facility] PHOSPHORUS 2022-11-13 10:22:00 Johanna [facility] MAGNESIUM 2022-11-13 10:22:00 [place] [facility] BASIC METABOLIC PANEL (NA, K, CL, CO2, GLUCOSE, BUN, CREATININE, CA) 2022-11-13 10:22:00 [place] [facility] CBC WITHOUT DIFF 2022-11-13 10:22:00 [place] [facility] POCT GLUCOSE (AUTOMATED) 2022-11-12 23:12:00 Juan Cardoso [facility] MAGNESIUM 2022-11-12 09:47:00 Myles Santillan [facility] BASIC METABOLIC PANEL (NA, K, CL, CO2, GLUCOSE, BUN, CREATININE, CA) 2022-11-12 09:47:00 Myles Santillan [facility] CBC WITH DIFF 2022-11-12 09:47:00 Myles Santillan [facility] POCT GLUCOSE (AUTOMATED) 2022-11-11 18:34:00 Sadiq Robertson [facility] POCT GLUCOSE (AUTOMATED) 2022-11-11 17:51:00 Sadiq Robertson [facility] POCT GLUCOSE (AUTOMATED) 2022-11-11 12:16:00 Sadiq Robertson [facility] LIPASE 2022-11-11 09:43:00 Isael Olmedo [facility] MAGNESIUM 2022-11-11 09:43:00 Yasir Chaney [facility] COMP. METABOLIC PANEL ([id number]) 2022-11-11 09:43:00 Isael Olmedo [facility] CBC WITH DIFF 2022-11-11 09:43:00 Isael Olmedo [facility] MRSA / MSSA SCREEN BY PCR, SIDRA 2022-11-11 01:32:00 Jeremy Velez [facility] LIPASE 2022-11-10 22:21:00 Adelina Judge [facility] FOLATE 2022-11-10 22:21:00 Isael Olmedo [facility] TEST, SERUM 2022-11-10 22:21:00 Jason Judge [facility] COMP. METABOLIC PANEL ([id number]) 2022-11-10 22:21:00 Adelina Judge [facility] ETHANOL 2022-11-10 22:21:00 Adelina Judge [facility] CBC WITH DIFF 2022-11-10 22:21:00 Adelina Judge [facility] CONSENT/REFUSAL FOR DIAGNOSIS AND TREATMENT 2022-11-10 21:39:27 Doctor Unassigned, [place] [facility] CRITICAL CARE 2022-11-10 21:38:00 Slim Topete [facility] LIPASE 2022-11-07 09:37:00 William Castorena [facility] MAGNESIUM 2022-11-07 09:37:00 William Castorena [facility] HEPATIC FUNCTION PANEL ([id number]) (ALB,T.PRO,BILI T,BU/BC,ALT,AST,ALK PHOS) 2022-11-07 09:37:00 William Castorena [facility] BASIC METABOLIC PANEL (NA, K, CL, CO2, GLUCOSE, BUN, CREATININE, CA) 2022-11-07 09:37:00 William Castorena [facility] LIPID PANEL ([id number])(TOTAL CHOLESTEROL, TRIGLYCERIDES, HDL) 2022-11-07 09:37:00 William Castorena [facility] CBC WITH DIFF 2022-11-07 09:37:00 [facility] PROT[facility] / INR 2022-11-07 09:37:00 Nat Castorena [facility] ACTIVATED PARTIAL THRMPLAS DAKOTAH 2022-11-07 09:37:00 William Castorena [facility] US GALL BLADDER 2022-11-06 09:32:53 Carlos A Lopez [facility] CT ABDOMEN PELVIS W CONTRAST 2022-11-06 06:57:00 Zoë Singletary [facility] LIPASE 2022-11-06 06:32:00 Zoë Singletary [facility] COMP. METABOLIC PANEL ([id number]) 2022-11-06 06:32:00 Zoë Singletary [facility] ETHANOL 2022-11-06 06:32:00 Carlos A Lopez [facility] CBC WITH DIFF 2022-11-06 06:32:00 Zoë Singletary [facility] URINALYSIS 2022-11-06 06:18:00 Zoë Singletary [facility] POCT TEST 2022-11-06 06:18:00 Zoë Singletary [facility] CONSENT/REFUSAL FOR DIAGNOSIS AND TREATMENT 2022-11-06 06:01:51 Doctor Unassigned, [place] [facility] POCT TEST 2022-08-28 02:47:00 Nick Best [facility] NOTICE OF PRIVACY PRACTICES 2022-08-28 01:31:41 Doctor Unassigned, [place] [facility] CONSENT/REFUSAL FOR DIAGNOSIS AND TREATMENT 2022-08-28 01:30:51 Doctor Unassigned, [place] [facility] BASIC METABOLIC PANEL (NA, K, CL, CO2, GLUCOSE, BUN, CREATININE, CA) 2022-04-13 00:10:00 Lacey Suggs [facility] CBC WITH DIFF 2022-04-13 00:10:00 Lacey Suggs [facility] CONSENT/REFUSAL FOR DIAGNOSIS AND TREATMENT 2022-04-12 21:08:37 Doctor Unassigned, [place] [facility] CONSENT/REFUSAL FOR DIAGNOSIS AND TREATMENT 2022-04-09 05:40:38 Doctor Unassigned, [place] [facility] BASIC METABOLIC PANEL (NA, K, CL, CO2, GLUCOSE, BUN, CREATININE, CA) 2022-04-05 22:24:00 Baldev Alarcon [facility] CBC WITH DIFF 2022-04-05 22:24:00 Baldev Alarcon [facility] CONSENT/REFUSAL FOR DIAGNOSIS AND TREATMENT 2022-04-05 19:50:28 Doctor Unassigned, [place] [facility] Encounters Start Date/Time End Date/Time Encounter Type Admission Type Attending Clinicians Care Facility Care Department Encounter ID Source 2023-03-06 08:02:00 [facility] [id number] [facility] 2023-03-05 10:16:00 [facility] [id number] [facility] 2023-03-04 11:18:00 [facility] [id number] [facility] 2022-07-27 10:23:00 Outpatient Malagon, Liz STLMLC STLC [id number] [facility] 2022-06-13 14:55:45 Outpatient [facility] [id number] [facility] 2022-05-30 09:48:00 Outpatient Malagon, Liz STLC STLC [id number] [facility] 2021-11-13 13:38:00 Outpatient Malagon, Liz STLC STLC [id number] [facility] 2021-11-10 10:45:18 Outpatient CATHIE GONZALEZ [facility] SOR [id number] [facility] 2021-11-09 09:43:50 Outpatient CATHIE GONZALEZ [facility] SOR [id number] [facility] 2021-11-08 16:22:13 Outpatient CATHIE GONZALEZ [facility] SOR [id number] [facility] 2021-05-17 14:17:09 Outpatient Malagon, Liz STLC STLC [id number] [facility] 2021-05-17 13:50:42 Outpatient Malagon, Liz STLC STLC [id number] [facility] 2021-05-17 13:50:27 Outpatient Malgaon, Liz STLC STLMLC [id number] [facility] 2021-05-17 13:28:45 Outpatient Malagon, Liz STLC STLC [id number] [facility] 2021-05-17 12:51:57 Outpatient Malagon, Liz STLC STLMLC [id number] [facility] 2021-05-17 12:45:56 Outpatient Malagon, Liz STLC STLMLC [id number] [facility] 2021-05-17 12:39:56 Outpatient Malagon, Liz STLC STLMLC [id number] [facility] 2021-05-17 12:39:35 Outpatient Malagon, Liz STLMLC STLMLC [id number] [facility] 2021-05-17 12:38:37 Outpatient Malagon, Liz STLMLC STLMLC [id number] [facility] 2021-05-17 12:33:47 Outpatient Malagon, Liz STLMLC STLMLC [id number] [facility] 2021-05-17 12:32:33 Outpatient Malagon, Liz STLMLC STLMLC [id number] [facility] 2021-05-17 12:29:13 Outpatient Malagon, Liz STLMLC STLMLC [id number] [facility] 2021-05-17 12:25:07 Outpatient Malagon, Liz STLMLC STLMLC [id number] [facility] 2021-05-17 12:24:31 Outpatient Malagon, Liz STLMLC STLMLC [id number] [facility] 2021-05-17 12:07:53 Outpatient Malagon, Liz STLMLC STLMLC [id number] [facility] 2021-05-17 12:07:23 Outpatient Malagon, Liz STLMLC STLMLC [id number] [facility] 2021-05-17 11:59:39 Outpatient Malagon, Liz STLMLC STLMLC [id number] [facility] 2021-05-17 11:37:35 Outpatient Malagon, Liz STLMLC STLMLC [id number] [facility] 2021-05-17 11:16:40 Outpatient Malagon, Liz STLMLC STLMLC [id number] [facility] 2021-05-17 11:10:01 Outpatient Malagon, Liz STLMLC STLMLC [id number] [facility] 2021-05-17 11:07:07 [facility] [id number] [facility] 2021-05-17 10:59:13 [facility] [id number] [facility] 2021-05-17 10:57:50 [facility] [id number] [facility] 2021-02-19 19:59:15 Emergency [facility] [id number] [facility] 2021-02-19 15:25:26 Emergency [facility] [id number] [facility] 2024-04-04 23:07:00 2024-04-05 03:56:00 Emergency MICHELLE CARPENTER SHINTA [facility] ERT [id number] [facility] 2024-04-04 23:07:00 2024-04-05 03:56:00 Emergency Haroon Michelle [facility] 1.2.840.114 350.1.13.10 4.2.7.2.686 [id number] [facility] 2024-03-30 18:37:00 2024-03-30 21:59:00 Emergency X VALERIA HERNANDEZ [facility] ERT [id number] [facility] 2024-03-30 18:37:00 2024-03-30 21:59:00 Emergency Valeria Hernandez [facility] 1.2.840.114 350.1.13.10 4.2.7.2.686 [id number] [facility] 2024-03-30 03:09:00 2024-03-30 03:49:00 Emergency CLEMENTINA VEGA SANDRA [facility] ERT [id number] [facility] 2024-03-30 03:09:00 2024-03-30 03:49:00 Emergency Clementina Marroquin [facility] 1.2840.114 350.1.13.10 4.2.7.2.686 [id number] [facility] 2024-02-13 11:15:00 2024-02-13 11:15:00 Outpatient R CATHIE ROSS CRAIG [facility] [id number] [facility] 2024-02-06 11:15:00 2024-02-06 11:15:00 Outpatient R CATHIE ROSS [facility] [id number] [facility] 2024-02-05 13:19:03 2024-02-05 23:59:00 Hospital Encounter Cathie Ross [facility] 1.2.840.114 350.1.13.10 4.2.7.2.686 [id number] [facility] 2024-02-05 13:30:00 2024-02-05 13:37:44 Outpatient R CATHIE ROSS CRAIG [facility] [id number] [facility] 2024-02-05 13:30:00 2024-02-05 13:37:44 Office Visit Cathie Ross [facility] 1.2.840.114 350.1.13.10 4.2.7.2.686 [id number] [facility] 2024 14:24:00 2024 16:14:00 Emergency X REJI JOHANSEN KENT [facility] ERT [id number] [facility] 2024 14:24:00 2024 16:14:00 Emergency Reji Johansen [facility] 1.2840.114 350.1.13.10 4.2.7.2.686 [id number] [facility] 2024-01-23 11:12:44 2024-01-23 23:59:00 Outpatient O CATHIE ROSS CRAIG [facility] [id number] [facility] 2024-01-23 11:12:44 2024-01-23 23:59:00 Hospital Encounter Cathie Ross [facility] 1..840.114 350.1.13.10 4.2.7.2.686 [id number] [facility] 2024-01-23 11:15:00 2024-01-23 12:12:25 Office Visit Cathie Ross [facility] 1..840.114 350.1.13.10 4.2.7.2.686 [id number] [facility] 2024-01-06 16:50:10 2024-01-06 16:50:10 Outpatient [facility] [id number] [place] Sainz 2024-01-03 10:37:56 2024-01-03 23:59:00 Outpatient R CATHIE ROSS CRAIG [facility] [id number] [facility] 2024-01-03 10:37:56 2024-01-03 23:59:00 Hospital Encounter Cathie Ross [facility] 1..840.114 350.1.13.10 4.2.7.2.686 [id number] [facility] 2024-01-03 10:30:00 2024-01-03 11:05:38 Office Visit Cathie Ross [facility] [place] 1..840.114 350.1.13.10 4.2.7.2.686 [id number] [facility] 2023-12-27 15:35:00 2023-12-27 20:32:00 Emergency X KANDY CHAVEZ JOHNNA [facility] ERT [id number] [facility] 2023-12-27 15:35:00 2023-12-27 20:32:00 Emergency Kandy Chavez [facility] [place] 1.2.840.114 350.1.13.10 4.2.7.2.686 [id number] [facility] 2023-12-27 10:00:00 2023-12-27 10:00:00 Outpatient CATHIE GONZALEZ CRAIG [facility] [id number] [facility] 2023-12-16 06:24:00 2023-12-16 08:37:00 Emergency X TRINO ASHFORD WAKILI [facility] ERT [id number] [facility] 2023-12-16 06:24:00 2023-12-16 08:37:00 Emergency Trino Ashford [facility] 1..840.114 350.1.13.10 4.2.7.2.686 [id number] [facility] 2023-12-08 14:12:00 2023-12-08 17:39:00 Emergency X KRISTA CABRERA DONNELL [facility] ERT [id number] [facility] 2023-12-08 14:12:00 2023-12-08 17:39:00 Emergency Krista Cabrera [facility] 1..840.114 350.1.13.10 4.2.7.2.686 [id number] [facility] 2023-12-05 20:46:00 2023-12-06 09:06:00 Emergency X TRINO ASHFORD WAKILI [facility] ERT [id number] [facility] 2023-12-05 20:46:00 2023-12-06 09:06:00 Emergency Valeria Hernandez Wakili S [facility] 1.2840.114 350.1.13.10 4.2.7.2.686 [id number] [facility] 2023-12-04 21:40:00 2023-12-05 01:00:00 Emergency X TRINO ASHFORD WAKILI [facility] ERT [id number] [facility] 2023-12-04 21:40:00 2023-12-05 01:00:00 Emergency Jonelle Connell Wakili S [facility] 1.2840.114 350.1.13.10 4.2.7.2.686 [id number] [facility] 2023-11-22 12:02:00 2023-11-22 16:58:00 Emergency X SANDI NBA WEN [facility] ERT [id number] [facility] 2023-11-22 12:02:00 2023-11-22 16:58:00 Emergency Eldermick Wen Nba [facility] 1.840.114 350.1.13.10 4.2.7.2.686 [id number] [facility] 2023-11-11 00:00:00 2023-11-11 09:55:02 Patient Outreach Lauren Cesar 1.2.840.114 350.1.13.10 4.2.7.2.686 [id number] [facility] 2023-11-09 22:30:00 2023-11-10 02:12:00 Emergency X DAO GOEL WILLIAM [facility] ERT [id number] [facility] 2023-11-09 22:30:00 2023-11-10 02:12:00 Emergency Alyssia Miranda William B [facility] 1.2840.114 350.1.13.10 4.2.7.2.686 [id number] [facility] 2023-11-06 13:20:00 2023-11-09 11:54:00 Inpatient X SOLO DEVI [facility] JENIFFER [id number] [facility] 2023-11-06 13:20:00 2023-11-09 11:54:00 Hospital Encounter Krista Cabrera David Oville, Jelani [facility] 1..840.114 350.1.13.10 4.2.7.2.686 [id number] [facility] 2023-10-27 22:09:00 2023-10-28 13:11:00 Emergency X CONNELLJONELLE TIMOTHY [facility] ERT [id number] [facility] 2023-10-27 22:09:00 2023-10-28 13:11:00 Emergency Zoë Singletary Timothy [facility] 1..840.114 350.1.13.10 4.2.7.2.686 [id number] [facility] 2023-10-19 10:39:00 2023-10-19 11:33:00 Emergency X GEMINI ZOËZOË SALDIVAR [facility] ERT [id number] [facility] 2023-10-19 10:39:00 2023-10-19 11:33:00 Emergency Gemini Zoë G [facility] 1..840.114 350.1.13.10 4.2.7.2.686 [id number] [facility] 2023-10-18 19:19:00 2023-10-18 21:09:00 Emergency X KRISTA CABRERA DONNELL [facility] ERT [id number] [facility] 2023-10-18 19:19:00 2023-10-18 21:09:00 Emergency Krista Cabrera [facility] 1.2.840.114 350.1.13.10 4.2.7.2.686 [id number] [facility] 2023-09-19 11:52:00 2023-09-21 11:57:00 Inpatient X SOLO DEVI [facility] JENIFFER [id number] [facility] 2023-09-19 11:52:00 2023-09-21 11:57:00 Hospital En[facility] 1.2.840.114 350.1.13.10 4.2.7.2.686 [id number] [facility] 2023-09-15 11:26:00 2023-09-15 13:28:00 Emergency [facility] [id number] [facility] 2023-09-15 11:26:00 2023-09-15 13:28:00 Emergency RangelCecile merritt [facility] 1.2.840.114 350.1.13.10 4.2.7.2.686 [id number] [facility] 2023-09-13 18:06:00 2023-09-13 20:03:00 Emergency X ISHAN, ELENO OLMSTEAD[facility] ERT [id number] [facility] 2023-09-13 18:06:00 2023-09-13 20:03:00 Emergency Ishan, Salrenetta [facility] 1.2.840.114 350.1.13.10 4.2.7.2.686 [id number] [facility] 2023-06-21 00:00:00 2023-06-21 00:00:00 (TEL) STLMLC STLMLC [id number] [facility] 2023-06-21 00:00:00 2023-06-21 00:00:00 (TEL) STLMLC STLMLC [id number] [facility] 2023-06-11 00:00:00 2023-06-11 00:00:00 OFFICE VISIT ESTAB PT LEVEL 3 STLMLC STLC [id number] [facility] 2023-05-08 00:00:00 2023-05-08 00:00:00 (TEL) STLMLC [facility] [id number] [facility] 2023-05-01 00:00:00 2023-05-01 00:00:00 Telephone Reta Leija [facility] 1.840.114 350.1.13.10 4.2.7.2.686 [id number] [facility] 2023-05-01 00:00:00 2023-05-01 00:00:00 Patient Secure Msg Doctor Unassigned, [place] [facility] 1..114 350.1.13.10 4.2.7.2.686 [id number] [facility] 2023-04-30 14:00:00 2023-04-30 14:30:10 Outpatient R RETA LEIJA [facility] [id number] [facility] 2023-04-30 14:00:00 2023-04-30 14:30:10 Urgent Care Reta Leija Unknown, Attending [facility] 1.840.114 350.1.13.10 4.2.7.2.686 [id number] [facility] 2023-04-30 00:00:00 2023-04-30 00:00:00 Transition of Care Thelma Slaughter 1.84.114 350.1.13.10 4.2.7.2.686 [id number] [facility] 2023-04-24 15:22:00 2023-04-27 09:58:00 Inpatient X [facility]AELE [facility] [id number] [facility] 2023-04-24 15:22:00 2023-04-27 09:58:00 Hospital Encounter Jose Quintanilla Alyssa William Castorena [facility] 1.2.840.114 350.1.13.10 4.2.7.2.686 [id number] [facility] 2023-03-07 00:00:00 2023-03-07 00:00:00 (TEL) STLMLC STLMLC [id number] [facility] 2023-03-07 00:00:00 2023-03-07 00:00:00 (TEL) STLMLC STLMLC [id number] [facility] 2023-03-06 00:00:00 2023-03-06 00:00:00 OFFICE VISIT ESTAB PT LEVEL 3 STLMLC STLMLC [id number] [facility] 2023-02-06 00:00:00 2023-02-06 00:00:00 (TEL) STLMLC STLMLC [id number] [facility] 2023-01-21 00:00:00 2023-01-21 00:00:00 (TEL) STLMLC STLMLC [id number] [facility] 2023-01-12 02:25:00 2023-01-12 05:16:00 Emergency EM ArleneJacob villagomez [facility] [id number] 49 [facility] 2023-01-04 00:00:00 2023-01-04 00:00:00 OFFICE VISIT ESTAB PT LEVEL 3 STLMLC STLMLC [id number] [facility] 2023-01-01 00:00:00 2023-01-01 00:00:00 (TEL) STLMLC STLMLC [id number] [facility] 2022-12-12 09:13:33 2022-12-12 23:59:00 Outpatient PAGE QUINTERO [facility] [id number] [facility] 2022-12-12 09:13:33 2022-12-12 23:59:00 Hospital Encounter Page Roberson [facility] 1.2.840.114 350.1.13.10 4.2.7.2.686 [id number] [facility] 2022-12-12 09:00:00 2022-12-12 09:20:00 Urgent Care Page Roberson Unknown, Attending [facility] 1..840.114 350.1.13.10 4.2.7.2.686 [id number] [facility] 2022-12-12 00:00:00 2022-12-12 00:00:00 Orders Only Doctor Unassigned, [place] [facility] 1.840.114 350.1.13.10 4.2.7.2.686 [id number] [facility] 2022-12-12 00:00:00 2022-12-12 00:00:00 (TEL) [facility] [id number] [facility] 2022-12-06 00:00:00 2022-12-06 00:00:00 (TEL) [facility] [id number] [facility] 2022-11-14 00:00:00 2022-11-14 00:00:00 Transition of Care Thelma Slaughter 1..840.114 350.1.13.10 4.2.7.2.686 [id number] [facility] 2022-11-10 16:54:00 2022-11-13 18:24:00 Inpatient X JUAN CHAVEZ [facility] [id number] [facility] 2022-11-10 16:54:00 2022-11-13 18:24:00 Hospital Encounter Adelina Judge, Dahiana Chavez, Juan Shore [facility] 1..840.114 350.1.13.10 4.2.7.2.686 [id number] [facility] 2022-11-06 01:11:00 2022-11-07 14:51:00 Outpatient X EDUAR ECHEVARRIA [facility] JENIFFER [id number] [facility] 2022-11-06 01:11:00 2022-11-07 14:51:00 Emergency Zoë Singletary, Eduar Cisneros [facility] 1..840.114 350.1.13.10 4.2.7.2.686 [id number] [facility] 2022-10-30 00:00:00 2022-10-30 00:00:00 OFFICE VISIT ESTAB PT LEVEL 4 STLMLC STLMLC [id number] [facility] 2022-10-01 00:00:00 2022-10-01 00:00:00 (TEL) STLMLC STLMLC [id number] [facility] 2022-08-27 20:56:00 2022-08-27 22:56:00 Emergency X NICK BEST [facility] ERT [id number] [facility] 2022-08-27 20:56:00 2022-08-27 22:56:00 Emergency Nick Best [facility] 1..840.114 350.1.13.10 4.2.7.2.686 [id number] [facility] 2022-08-09 00:00:00 2022-08-09 00:00:00 (TEL) STLMLC STLMLC [id number] [facility] 2022-07-31 00:00:00 2022-07-31 00:00:00 OFFICE VISIT ESTAB PT LEVEL 4 STLMLC STLMLC [id number] [facility] 2022-06-01 00:00:00 2022-06-01 00:00:00 OFFICE VISIT ESTAB PT LEVEL 4 STLMLC STLC [id number] [facility] 2022-05-21 08:30:00 2022-05-21 08:30:00 Outpatient R EDY [facility] [id number] [facility] 2022-05-21 08:30:00 2022-05-21 08:30:00 Outpatient R EDY [facility] [id number] [facility] 2022-05-01 00:00:00 2022-05-01 00:00:00 (TEL) STLMLC STLC [id number] [facility] 2022-04-24 00:00:00 2022-04-24 00:00:00 (TEL) STLMLC STLC [id number] [facility] 2022-04-12 15:05:00 2022-04-12 19:50:00 Emergency Chula HIGGINS T. [facility] ERT [id number] [facility] 2022-04-12 15:05:00 2022-04-12 19:50:00 Emergency Lacey Suggs [facility] [place] [facility] 1..840.114 350.1.13.10 4.2.7.2.686 [id number] [facility] 2022-04-12 00:00:00 2022-04-12 00:00:00 Telephone Oral Surgery [facility] 1.2.840.114 350.1.13.10 4.2.7.2.686 [id number] [facility] 2022-04-08 23:47:00 2022-04-09 00:39:00 Emergency Jose CORDERO [facility] ERT [id number] [facility] 2022-04-08 23:47:00 2022-04-09 00:39:00 Emergency Jose Quintanilla [facility] 1.2.840.114 350.1.13.10 4.2.7.2.686 [id number] [facility] 2022-04-06 19:08:00 2022-04-06 22:00:00 Emergency Jian Samuel [facility] [id number] 89 [facility] 2022-04-05 14:09:00 2022-04-05 17:11:00 Emergency X BALDEV ALARCON [facility] ERT [id number] [facility] 2022-04-05 14:09:00 2022-04-05 17:11:00 Emergency Baldev Alarcon S [facility] 1.2.840.114 350.1.13.10 4.2.7.2.686 [id number] [facility] 2022-03-02 00:00:00 2022-03-02 00:00:00 OFFICE VISIT ESTAB PT LEVEL 4 STLMLC STLMLC [id number] [facility] 2022-02-28 00:00:00 2022-02-28 00:00:00 (TEL) STLMLC STLMLC [id number] [facility] 2022-01-15 09:00:00 2022-01-15 09:00:00 Outpatient R [facility] [id number] [facility] 2022-01-15 09:00:00 2022-01-15 09:00:00 Outpatient R [facility] [id number] [facility] 2022-01-15 09:00:00 2022-01-15 09:00:00 Outpatient R TREVON CORTES [facility] [id number] [facility] 2022-01-15 09:00:00 2022-01-15 09:00:00 Outpatient R [facility] [id number] [facility] 2022-01-02 00:00:00 2022-01-02 00:00:00 OFFICE VISIT ESTAB PT LEVEL 4 STLMLC STLMLC [id number] [facility] 2021-12-04 12:37:10 2021-12-04 23:59:00 Hospital Encounter Kerrie Judge [facility] [id number] [facility] 2021-12-04 16:00:00 2021-12-04 16:44:58 Office Visit Alfie [facility] [facility] MED[facility] OFFICE BUILDING 1.2840.114 350.1.13.10 4.2.7.2.686 [id number] [facility] 2021-12-04 16:00:00 2021-12-04 16:44:58 Outpatient R ALFIE [facility] [id number] [facility] 2021-12-04 16:00:00 2021-12-04 16:00:00 Outpatient R ALFIE [facility] [id number] [facility] 2021-12-04 00:00:00 2021-12-04 00:00:00 Telephone Cathie Ross [facility] MEDICAL OFFICE BUILDING 1.2840.114 350.1.13.10 4.2.7.2.686 [id number] [facility] 2021-12-04 00:00:00 2021-12-04 00:00:00 Telephone Alfie [facility] [place] [place] [facility] MEDICAL OFFICE BUILDING 1.2840.114 350.1.13.10 4.2.7.2.686 [id number] [facility] 2021-11-29 15:15:00 2021-11-29 16:25:54 Office Visit Alfie [facility] [place]?[facility] [place] [facility] MEDICAL OFFICE BUILDING 1.2840.114 350.1.13.10 4.2.7.2.686 [id number] [facility] 2021-11-29 15:15:00 2021-11-29 16:25:54 Outpatient R KERRIE JUDGE [facility] [id number] [facility] 2021-11-29 15:15:00 2021-11-29 15:15:00 Outpatient R KERRIE JUDGE [facility] [id number] [facility] 2021-11-28 00:00:00 2021-11-28 00:00:00 Telephone Cathie Ross [facility] MEDICAL OFFICE BUILDING 1..840.114 350.1.13.10 4.2.7.2.686 [id number] [facility] 2021-11-27 16:15:00 2021-11-27 16:15:00 Outpatient R CATHIE ROSS [facility] [id number] [facility] 2021-11-20 14:45:00 2021-11-20 15:20:56 Outpatient R CATHIE ROSS [facility] [id number] [facility] 2021-11-20 14:45:00 2021-11-20 15:20:56 Office Visit Cathie Ross [facility] MEDICAL OFFICE BUILDING 1.2.840.114 350.1.13.10 4.2.7.2.686 [id number] [facility] 2021-11-18 12:53:52 2021-11-18 23:59:00 Outpatient R JACQUELINE SHIN [facility] [id number] [facility] 2021-11-18 12:53:52 2021-11-18 23:59:00 Hospital Encounter ShinDarinJacqueline [facility] MEDICAL OFFICE BUILDING 1.2.840.114 350.1.13.10 4.2.7.2.686 [id number] [facility] 2021-11-18 12:40:00 2021-11-18 13:00:00 Urgent Care Jacqueline Shin, Page [facility] MED[facility] OFF[facility] BUILDING 1..840.114 350.1.13.10 4.2.7.2.686 [id number] [facility] 2021-11-18 00:10:00 2021-11-18 00:42:00 Emergency X TRINO ASHFORD [facility] ERT [id number] [facility] 2021-11-18 00:10:00 2021-11-18 00:42:00 Emergency Trino Ashford [facility] 1..840.114 350.1.13.10 4.2.7.2.686 [id number] [facility] 2021-11-17 00:00:00 2021-11-17 00:00:00 Orders Only Doctor Unassigned, [place] [facility] 1..840.114 350.1.13.10 4.2.7.2.686 [id number] [facility] 2021-11-16 13:30:00 2021-11-16 13:44:47 Office Visit Kerrie Judge [facility] [place] MED[facility] OFF[facility] BUILDING 1..840.114 350.1.13.10 4.2.7.2.686 [id number] [facility] 2021-11-16 13:30:00 2021-11-16 13:44:47 Outpatient R ALFIE KERRIE [facility] [id number] [facility] 2021-11-16 13:30:00 2021-11-16 13:30:00 Outpatient Vivek JUDGE [facility] [id number] [facility] 2021-11-15 00:00:00 2021-11-15 00:00:00 Telephone Cathie Ross [facility] MEDICAL OFFICE BUILDING 1.840.114 350.1.13.10 4.2.7.2.686 [id number] [facility] 2021-11-13 14:00:00 2021-11-13 14:57:00 Surgery Cathie Ross [facility] 1.2840.114 350.1.13.10 4.2.7.2.686 [id number] [facility] 2021-11-13 11:04:00 2021-11-13 14:30:00 Outpatient R CATHIE ROSS [facility] SOR [id number] [facility] 2021-11-13 11:04:00 2021-11-13 14:30:00 Hospital Encounter Cathie Ross [facility] 1.2840.114 350.1.13.10 4.2.7.2.686 [id number] [facility] 2021-11-13 08:00:00 2021-11-13 09:01:53 Outpatient R EDY [facility] [id number] [facility] 2021-11-13 08:00:00 2021-11-13 09:01:53 Office Visit Edy [facility] MEDICAL OFFICE BUILDING 1.2840.114 350.1.13.10 4.2.7.2.686 [id number] [facility] 2021-11-13 00:00:00 2021-11-13 00:00:00 Telephone Cathie Ross [facility] MEDICAL OFFICE BUILDING 1.2840.114 350.1.13.10 4.2.7.2.686 [id number] [facility] 2021-11-10 10:43:14 2021-11-10 23:59:00 Hospital Encounter Cathie Ross [facility] 1.2840.114 350.1.13.10 4.2.7.2.686 [id number] [facility] 2021-11-10 11:15:00 2021-11-10 11:30:00 Media Relations Manager Visit Pob, Adc Lab Main Cathie Ross [facility] BUILD[facility] 1.840.114 350.1.13.10 4.2.7.2.686 [id number] [facility] 2021-11-10 10:38:25 2021-11-10 10:42:00 Outpatient R CATHEI ROSS [facility] [id number] [facility] 2021-11-10 08:30:00 2021-11-10 08:45:00 Laboratory Only Only, Adc Test Cathie Ross [facility] 1.840.114 350.1.13.10 4.2.7.2.686 [id number] [facility] 2021-11-10 00:00:00 2021-11-10 00:00:00 (TEL) STLMLC STLMLC [id number] [facility] 2021-11-10 00:00:00 2021-11-10 00:00:00 Telephone Cathie Ross [facility] MEDICAL OFFICE BUILDING 1.840.114 350.1.13.10 4.2.7.2.686 [id number] [facility] 2021-11-09 00:00:00 2021-11-09 00:00:00 Telephone Cathie Ross [facility] OFFICE BUILDING 1.840.114 350.1.13.10 4.2.7.2.686 [id number] [facility] 2021-11-09 00:00:00 2021-11-09 00:00:00 Telephone Cathie Ross [facility] MEDICAL OFFICE BUILDING 1..840.114 350.1.13.10 4.2.7.2.686 [id number] [facility] 2021-11-08 15:30:00 2021-11-08 15:55:00 Outpatient R CATHIE ROSS [facility] [id number] [facility] 2021-11-08 15:30:00 2021-11-08 15:55:00 Office Visit Cathie Ross [facility] [place]?[facility] MEDICAL OFFICE BUILDING 1..840.114 350.1.13.10 4.2.7.2.686 [id number] [facility] 2021-11-08 00:00:00 2021-11-08 00:00:00 Prep For Surgery Cathie Ross [facility] [place]?[facility] MEDICAL OFFICE BUILDING 1.840.114 350.1.13.10 4.2.7.2.686 [id number] [facility] 2021-11-07 00:00:00 2021-11-07 00:00:00 (TEL) STLMLC STLC [id number] [facility] 2021-11-03 08:00:00 2021-11-03 08:00:00 Outpatient R KERRIE JUDGE [facility] [id number] [facility] 2021-10-30 14:00:00 2021-10-30 14:05:17 Outpatient R PAGE ROBERSON [facility] [id number] [facility] 2021-10-30 14:00:00 2021-10-30 14:05:17 Urgent Care Consuelo Vu [facility] [place]?[facility] MEDICAL OFFICE BUILDING 1..840.114 350.1.13.10 4.2.7.2.686 [id number] [facility] 2021-10-29 13:44:17 2021-10-29 23:59:00 Outpatient R RAJESH GONZALES [facility] [id number] [facility] 2021-10-29 13:44:17 2021-10-29 23:59:00 Outpatient R RAJESH GONZALES [facility] [id number] [facility] 2021-10-29 13:44:17 2021-10-29 23:59:00 Hospital Encounter Cee [facility] MEDICAL OFFICE BUILDING 1..840.114 350.1.13.10 4.2.7.2.686 [id number] [facility] 2021-10-29 14:40:00 2021-10-29 14:40:00 Urgent Care Cee [facility] MEDICAL OFFICE BUILDING 1..840.114 350.1.13.10 4.2.7.2.686 [id number] [facility] 2021-10-17 00:00:00 2021-10-17 00:00:00 OFFICE VISIT ESTAB PT LEVEL 4 [facility] [id number] [facility] 2021-10-05 00:00:00 2021-10-05 00:00:00 (WELLNESS) Wellness Visit [facility] [id number] [facility] 2021-10-03 00:00:00 2021-10-03 00:00:00 (TEL) [facility] [id number] [facility] 2021-10-02 00:00:00 2021-10-02 00:00:00 (TEL) [facility] [id number] [facility] 2021-08-14 09:30:00 2021-08-14 09:53:56 Nurse Visit Visit, [facility]-Rmchp Nurse Trevon Cortes [facility] CLINICAL PHARMACY SPECIALIST [facility] MATERNAL & CHILD [facility] 1..840.114 350.1.13.10 4.2.7.2.686 [id number] [facility] 2021-08-14 09:30:00 2021-08-14 09:30:00 Outpatient R [facility] [id number] [facility] 2021-08-14 09:30:00 2021-08-14 09:30:00 Outpatient R GERHARD CORTESRODGERMichelle [facility] [id number] [facility] 2021-08-07 00:00:00 2021-08-07 00:00:00 (TEL) STLMLC STLMLC [id number] [facility] 2021-07-17 00:00:00 2021-07-17 00:00:00 Telephone Pratima Wu [facility] CLINICAL PHARMACY SPECIALIST [facility] MATERNAL & CHILD [facility] 1..840.114 350.1.13.10 4.2.7.2.686 [id number] [facility] 2021-07-17 00:00:00 2021-07-17 00:00:00 Orders Only Doctor Unassigned, [place] [facility] 1.840.114 350.1.13.10 4.2.7.2.686 [id number] [facility] 2021-07-13 09:15:00 2021-07-13 09:58:35 Outpatient R PRATIMA WU [facility] [id number] [facility] 2021-07-13 09:15:00 2021-07-13 09:58:35 Office Visit Pratima Wu [facility] CLINICAL PHARMACY SPECIALIST [facility] & CHILD [facility] 1.840.114 350.1.13.10 4.2.7.2.686 [id number] [facility] 2021-07-13 09:15:00 2021-07-13 09:58:35 Outpatient R PRATIMA WU [facility] [id number] [facility] 2021-07-13 00:00:00 2021-07-13 00:00:00 OFFICE VISIT ESTAB PT LEVEL 4 STLMLC STLMLC [id number] [facility] 2021-07-13 00:00:00 2021-07-13 00:00:00 Letter (Out) Pratima Wu [facility] CLINICAL PHARMACY SPECIALIST [facility] & CHILD [facility] 1.2.840.114 350.1.13.10 4.2.7.2.686 [id number] [facility] 2021-07-13 00:00:00 2021-07-13 00:00:00 Telephone Pratima Wu [facility] 1.2.840.114 350.1.13.10 4.2.7.2.686 [id number] [facility] 2021-07-03 01:43:00 2021-07-03 01:43:00 Outpatient GC_SWHAOMC_ Norton_G [facility] [id number] [facility] 2021-06-14 00:00:00 2021-06-14 00:00:00 (TEL) STLMLC STLMLC [id number] [facility] 2021-06-04 14:00:00 2021-06-04 15:49:40 Outpatient R COSME SANCHEZ [facility] [id number] [facility] 2021-06-04 14:00:00 2021-06-04 14:20:00 Urgent Care Cosme Sanchez Jessica [facility] MEDICAL OFFICE BUILDING 1.2.840.114 350.1.13.10 4.2.7.2.686 [id number] [facility] 2021-05-19 00:00:00 2021-05-19 00:00:00 OFFICE VISIT EST PT LEVEL 3 STLMLC STLMLC [id number] [facility] 2021-04-12 00:00:00 2021-04-12 00:00:00 Letter (Out) Zakiya Multani [facility] 1.2114 350.1.13.10 4.2.7.2.686 [id number] [facility] 2021-04-11 11:15:00 2021-04-11 11:30:00 Laboratory Only Only, Ang Db Test [facility] OFF[facility] BUILD[facility] 1.114 350.1.13.10 4.2.7.2.686 [id number] [facility] 2021-04-11 11:15:00 2021-04-11 11:15:00 Outpatient R FRANKI MILEY [facility] [id number] [facility] 2021-04-11 00:00:00 2021-04-11 00:00:00 Orders Only Doctor Unassigned, [place] [facility] 1.2.114 350.1.13.10 4.2.7.2.686 [id number] [facility] 2021-04-08 00:00:00 2021-04-08 00:00:00 Patient Secure Msg Doctor Unassigned, [place] [facility] 1.2.114 350.1.13.10 4.2.7.2.686 [id number] [facility] 2021-03-21 00:00:00 2021-03-21 00:00:00 OFFICE VISIT ESTAB PT LEVEL 4 ST[facility] [id number] [facility] 2021-03-20 00:00:00 2021-03-20 00:00:00 (TEL) [facility] STLC [id number] [facility] 2021-03-17 00:00:00 2021-03-17 00:00:00 Telephone Jeovany Purvis [facility] PRIMARY CARE PAVILLION 1.2.840.114 350.1.13.10 4.2.7.2.686 [id number] [facility] 2021-03-13 00:00:00 2021-03-13 00:00:00 Telephone Jeovany Purvis [facility] CARE [facility]AVILLION 1.2840.114 350.1.13.10 4.2.7.2.686 [id number] [facility] 2021-03-08 00:00:00 2021-03-08 00:00:00 Transition of Care FunesTiff jang 1.284.114 350.1.13.10 4.2.7.2.686 [id number] [facility] 2021-03-04 20:45:00 2021-03-07 17:42:00 [facility] [id number] [facility] 2021-03-04 20:45:00 2021-03-07 17:42:00 Hospital Encounter [facility]armida, [facility] 1.84.114 350.1.13.10 4.2.7.2.686 [id number] [facility] 2021-03-04 20:45:00 2021-03-07 17:42:00 Inpatient X CHAD MORAN [facility] [id number] [facility] 2021-03-04 11:26:00 2021-03-04 12:01:00 Emergency X CLEMENTINA MARROQUIN [facility] ERT [id number] [facility] 2021-03-04 11:26:00 2021-03-04 12:01:00 Emergency Clementina Marroquin [facility] 1.284.114 350.1.13.10 4.2.7.2.686 [id number] [facility] 2021-02-28 23:10:00 2021-03-03 12:00:00 Outpatient SOLO CARROLL [facility] JENIFFER [id number] [facility] 2021-02-28 23:10:00 2021-03-03 12:00:00 Emergency Baldev Alarcon Jelani [facility] 1..840.114 350.1.13.10 4.2.7.2.686 [id number] [facility] 2021-02-28 23:10:00 2021-03-03 12:00:00 Outpatient SOLO CARROLL [facility] JENIFFER [id number] [facility] 2021-02-28 00:00:00 2021-02-28 00:00:00 (TEL) STLMLC STLMLC [id number] [facility] 2021-01-09 00:00:00 2021-01-09 00:00:00 OFFICE VISIT ESTAB PT LEVEL 4 STLMLC STLMLC [id number] [facility] 2020-11-10 00:00:00 2020-11-10 00:00:00 Outpatient STLMLC STLMLC [id number] [facility] 2020-10-11 00:00:00 2020-10-11 00:00:00 Outpatient STLMLC STLMLC [id number] [facility] 2020-08-18 00:00:00 2020-08-18 00:00:00 Transition of Care Tiff Funes 1..840.114 350.1.13.10 4.2.7.2.686 [id number] [facility] 2020-07-29 00:00:00 2020-07-29 00:00:00 Outpatient STLMLC STLMLC [id number] [facility] 2020-07-18 00:00:00 2020-07-18 00:00:00 Outpatient STLMLC STLMLC [id number] [facility] 2020-07-06 00:00:00 2020-07-06 00:00:00 Outpatient STLMLC STLMLC [id number] [facility] 2020-06-29 00:00:00 2020-06-29 00:00:00 Outpatient STLMLC STLMLC [id number] [facility] 2020-06-23 00:00:00 2020-06-23 00:00:00 Outpatient STLMLC STLMLC [id number] [facility] 2020-06-03 00:00:00 2020-06-03 00:00:00 Outpatient STLMLC STLMLC [id number] [facility] 2020-05-27 00:00:00 2020-05-27 00:00:00 Outpatient STLMLC STLMLC [id number] [facility] 2020-05-11 00:00:00 2020-05-11 00:00:00 Outpatient STLMLC STLMLC [id number] [facility] 2020-04-25 00:00:00 2020-04-25 00:00:00 Outpatient STLMLC STLMLC [id number] [facility] 2020-03-15 00:00:00 2020-03-15 00:00:00 Outpatient STLMLC STLMLC [id number] [facility] 2020-03-14 00:00:00 2020-03-14 00:00:00 Outpatient STLMLC STLMLC [id number] [facility] 2020-03-07 00:00:00 2020-03-07 00:00:00 Outpatient STLMLC STLMLC [id number] [facility] 2020-03-03 17:00:00 2020-03-03 17:00:00 Outpatient R [facility] [id number] [facility] 2020-03-03 14:36:05 2020-03-03 15:04:47 Urgent Care Provider, [facility] Kelly Perez [facility] One 1.2.840.114 350.1.13.10 4.2.7.2.686 [id number] [facility] 2020-03-03 14:36:05 2020-03-03 15:04:47 Urgent Care Provider, [facility], [facility] Aylin [facility] 1.2.840.114 350.1.13.10 4.2.7.2.686 [id number] 2020-03-02 00:00:00 2020-03-02 00:00:00 Outpatient STLMLC STLMLC [id number] [facility] 2020-02-29 00:00:00 2020-02-29 00:00:00 Outpatient STLMLC STLMLC [id number] [facility] 2020-02-17 00:00:00 2020-02-17 00:00:00 Outpatient STLMLC STLMLC [id number] [facility] 2020-02-16 00:00:00 2020-02-16 00:00:00 Outpatient STLMLC STLMLC [id number] [facility] 2020-01-18 00:00:00 2020-01-18 00:00:00 Outpatient STLMLC STLMLC [id number] [facility] 2019-12-08 16:40:00 2019-12-08 16:40:00 Outpatient RAJESH MAGAÑA [facility] [id number] [facility] 2019-12-07 14:00:00 2019-12-07 14:00:00 [place] [facility] [id number] [facility] 2019-12-07 11:54:00 2019-12-07 11:54:00 [place] [facility] [id number] [facility] 2019-12-03 13:00:00 2019-12-03 13:00:00 [facility] [id number] [facility] 2019-12-03 08:34:00 2019-12-03 08:34:[address] [facility] [address] [facility] [id number] [facility] 2019-12-02 08:44:00 2019-12-02 08:44:00 [facility] [address] [facility] [id number] [facility] 2019-12-01 13:53:00 2019-12-01 13:53:00 Out[facility] [address] [facility] [id number] [facility] 2019-11-26 14:00:00 2019-11-26 14:00:00 [facility] [id number] [facility] 2019-11-24 00:00:00 2019-11-24 00:00:00 [facility] [place] [address].2.840.114 350.1.13.10 4.2.7.2.686 [id number] [facility] 2019-11-24 00:00:00 2019-11-24 00:00:00 [facility] [address]840.114 350.1.13.10 4.2.7.2.686 [id number] 2019-11-18 13:45:00 2019-11-18 13:45:00 Outpatient [facility] [address] [facility] [place] [facility] [id number] [facility] 2019-11-17 10:00:00 2019-11-17 23:59:00 Hospital Encounter Radiology [address]840.114 350.1.13.10 4.2.7.2.686 [id number] [facility] 2019-11-17 10:00:00 2019-11-17 23:59:00 Hospital Encounter Radiology [address]114 350.1.13.10 4.2.7.2.686 [id number] 2019-11-17 00:00:00 2019-11-17 00:00:00 Outpatient R RADIOLOGY [facility] [id number] [facility] 2019-11-17 00:00:00 2019-11-17 00:00:00 Orders Only Doctor Unassigned, [place] [facility] [id number] 350.1.13.10 4.2.7.2.686 [id number] [facility] 2019-11-17 00:00:00 2019-11-17 00:00:00 Orders Only Doctor Unassigned, [place] [facility] [id number] 350.1.13.10 [id number] [id number] 2019-11-16 13:15:00 2019-11-16 13:15:00 Outpatient [facility] Medical [facility] [id number] [facility] 2019-11-09 15:00:00 2019-11-09 15:00:00 Outpatient R JENNIFER SHER [facility] [id number] [facility] 2019-10-09 11:37:00 2019-10-09 11:37:00 Outpatient [facility] [id number] [facility] 2019-10-07 11:38:03 2019-10-07 12:05:01 Urgent Care Provider, [facility] Kelly Perez [facility] Office Building One 1.114 350.1.13.10 4.2.7.2.686 [id number] [facility] 2019-10-07 11:38:03 2019-10-07 12:05:01 Urgent Care Provider, [facility] 1.114 350.1.13.10 4.2.7.2.686 [id number] 2019-10-07 11:40:2019-10-07 11:40:00 Outpatient KELLY DAVID [facility] [id number] [facility] 2019-10-06 00:00:00 2019-10-06 00:00:00 Orders Only Doctor Unassigned, [place] [facility] 1.2.840.114 350.1.13.10 4.2.7.2.686 [id number] [facility] 2019-10-06 00:00:00 2019-10-06 00:00:00 Orders Only Doctor Unassigned, [place] [facility] 1.2.840.114 350.1.13.10 4.2.7.2.686 [id number] 2019-09-23 13:15:00 2019-09-23 13:15:00 [facility] [address] [address] [place] [id number] [facility] 2019-09-17 16:41:00 2019-09-17 16:41:00 Out[facility] [address] [facility] [facility] [id number] [facility] 2019-07-27 10:13:00 2019-07-27 10:13:00 [facility] [address] [facility] [id number] [facility] 2019-07-24 10:00:00 2019-07-24 10:00:00 [facility] [address] [facility] [id number] [facility] 2019-07-06 08:54:00 2019-07-06 08:54:00 Out[facility] [address] [facility] [id number] [facility] 2019-06-29 10:28:00 2019-06-29 10:28:00 Out[facility] [address] [facility] [id number] [facility] 2019-06-24 14:42:00 2019-06-24 14:42:00 Out[facility] [address] [facility] [id number] [facility] 2019-06-18 11:23:00 2019-06-18 11:23:00 [facility] [id number] [facility] 2019-06-18 08:19:00 2019-06-18 08:19:00 [facility] [id number] [facility] 2019-06-16 13:45:00 2019-06-16 13:45:00 [facility]patient [facility] [id number] [facility] 2019-06-11 13:06:23 2019-06-11 16:30:00 Emergency Baldev Alarcon [facility] 1.2.840.114 350.1.13.10 4.2.7.2.686 [id number] [facility] 2019-06-11 13:06:23 2019-06-11 16:30:00 Emergency X BALDEV ALARCON [facility] ERT [id number] [facility] 2019-06-11 13:06:23 2019-06-11 16:30:00 Emergency X BALDEV ALARCON [facility] ERT [id number] [facility] 2019-06-11 13:06:23 2019-06-11 16:30:00 Emergency Baldev Alarcon [facility] 1.2.840.114 350.1.13.10 4.2.7.2.686 [id number] 2019-06-07 15:32:13 2019-06-07 16:50:00 Emergency Sabra Sorto [facility] 1.2.840.114 350.1.13.10 4.2.7.2.686 [id number] [facility] 2019-06-07 15:32:13 2019-06-07 16:50:00 Emergency X SABRA SORTO [facility] ERT [id number] [facility] 2019-06-07 15:32:13 2019-06-07 16:50:00 Emergency X SABRA SORTO [facility] ERT [id number] [facility] 2019-06-07 15:32:13 2019-06-07 16:50:00 Emergency Sabra Sorto [facility] 1.2.840.114 350.1.13.10 4.2.7.2.686 [id number] 2019-06-07 00:00:00 2019-06-07 00:00:00 Orders Only Doctor Unassigned, [place] [facility] 1.2.840.114 350.1.13.10 4.2.7.2.686 [id number] [facility] 2019-06-07 00:00:00 2019-06-07 00:00:00 Orders Only Doctor Unassigned, [place] [facility] 1.2840.114 350.1.13.10 4.2.7.2.686 [id number] 2019-06-02 14:30:00 2019-06-02 14:30:00 Outpatient [facility] [id number] [facility] 2019-06-01 13:24:00 2019-06-01 13:24:00 Outpatient [facility] [id number] [facility] 2019-05-28 18:41:42 2019-05-28 20:29:00 Emergency [facility] 1.2.840.114 350.1.13.10 4.2.7.2.686 [id number] [facility] 2019-05-28 18:41:42 2019-05-28 20:29:00 Emergency [facility] 1.2.840.114 350.1.13.10 4.2.7.2.686 [id number] 2019-05-26 15:00:00 2019-05-26 15:00:00 [facility] [address] [id number] [facility] 2019-04-30 10:17:00 2019-04-30 10:17:00 Outpatient [facility] [address] [facility] [id number] [facility] 2019-04-30 08:15:00 2019-04-30 08:15:00 Outpatient [facility] [address] [facility] [id number] [facility] 2019-04-24 10:15:00 2019-04-24 10:15:00 Outpatient [facility] [address] [facility] [id number] [facility] 2019-03-26 16:00:00 2019-03-26 16:00:00 Out[facility] [address] [id number] [facility] 2019-02-26 09:01:00 2019-02-26 09:01:00 Outpatient [facility] [address] [facility] [id number] [facility] 2019-02-13 15:50:00 2019-02-13 15:50:00 Out[facility] [address] [facility] [id number] [facility] 2019 14:30:00 2019 14:30:00 Out[facility] [address] [facility] [id number] [facility] 2019-01-02 17:15:03 2019-01-02 19:16:00 Emergency [address]840.114 350.1.13.10 4.2.7.2.686 [id number] [facility] 2019-01-02 17:15:03 2019-01-02 19:16:00 Emergency [address]840.114 350.1.13.10 4.2.7.2.686 [id number] 2019-01-02 00:00:00 2019-01-02 00:00:00 Orders Only Doctor Unassigned, [place] [facility] 1.2.840.114 350.1.13.10 4.2.7.2.686 [id number] [facility] 2019-01-02 00:00:00 2019-01-02 00:00:00 Orders Only Doctor Unassigned, [place] [facility] 1.2840.114 350.1.13.10 4.2.7.2.686 [id number] 2018-12-31 14:17:00 2018-12-31 14:17:00 Outpatient [facility] Medicine [facility] Medicine [id number] [facility] 2018-12-29 09:44:07 2018-12-29 09:59:07 Office Visit [facility] 1.2.840.114 350.1.13.10 4.2.7.2.686 [id number] [facility] 2018-12-29 09:44:07 2018-12-29 09:59:07 Office Visit Stefanie Eliezer [facility] [employer] [facility] 1.2.840.114 350.1.13.10 4.2.7.2.686 [id number] 2018-12-29 00:00:00 2018-12-29 00:00:00 Letter (Out) Stefanie Eliezer [facility] [employer] [facility] 1.2.840.114 350.1.13.10 4.2.7.2.686 [id number] [facility] 2018-12-24 16:06:07 2018-12-24 23:59:00 Hospital Encounter Radiology [facility] 1.2.840.114 350.1.13.10 4.2.7.2.686 [id number] [facility] 2018-12-24 10:45:00 2018-12-24 10:45:00 [facility] [address] [id number] [facility] 2018-12-24 00:00:00 2018-12-24 00:00:00 Orders Only Doctor Unassigned, [place] [facility] 1.2.840.114 350.1.13.10 4.2.7.2.686 [id number] [facility] 2018-12-09 15:05:00 2018-12-09 15:05:00 Out[facility] [address] [id number] [facility] 2018-12-08 13:15:00 2018-12-08 13:15:00 Out[facility] [address] [facility] [place] [facility] [id number] [facility] 2018-11-26 16:19:00 2018-11-26 16:19:00 Out[facility] [address] [id number] [facility] 2018-11-18 09:00:00 2018-11-18 09:00:00 Out[facility] [address] [facility] [facility] [id number] [facility] 2018-11-15 13:23:07 2018-11-15 13:57:49 Urgent Care Reji Leahy, Attending [facility] 1.2.840.114 350.1.13.10 4.2.7.2.686 [id number] [facility] 2018-10-24 16:15:00 2018-10-24 16:15:00 Out[facility] [address] [facility] [id number] [facility] 2018-10-21 14:30:00 2018-10-21 14:30:00 Out[facility] [address] [facility] [id number] [facility] 2018-08-22 09:30:00 2018-08-22 09:30:00 Out[facility] [address] [facility] [id number] [facility] 2018-08-16 11:37:00 2018-08-16 11:37:00 Outpatient [facility] [address] [facility] [id number] [facility] 2018-08-14 08:30:00 2018-08-14 08:30:00 Out[facility] [address] [id number] [facility] 2018-08-13 15:15:00 2018-08-13 15:15:00 [facility] [facility] [id number] [facility] 2018-07-23 15:00:00 2018-07-23 15:00:00 [facility] [address] [id number] [facility] 2018-06-23 13:45:00 2018-06-23 13:45:00 Out[facility] [address] [facility] [id number] [facility] 2018-06-09 11:19:00 2018-06-09 11:19:00 [facility] [id number] [facility] 2018-06-03 08:02:00 2018-06-03 08:02:00 Out[facility] [address] [facility] [id number] [facility] 2018-06-02 09:30:00 2018-06-02 09:30:00 Out[facility] [address] [facility] [facility] [id number] [facility] 2018-05-21 15:00:00 2018-05-21 15:00:00 [facility] [address] [facility] [id number] [facility] 2018-05-09 08:22:00 2018-05-09 08:22:00 [facility] [address] [id number] [facility] 2018-04-24 15:45:00 2018-04-24 15:45:00 Outpatient [facility] [id number] [facility] 2018-04-04 09:15:00 2018-04-04 09:15:00 Outpatient [facility] [id number] [facility] 2018-04-02 14:30:00 2018-04-02 14:30:00 Outpatient [facility] [id number] [facility] 2018-01-28 13:00:00 2018-01-28 13:00:00 Outpatient [facility] [id number] [facility] Results Test Description Test Time Test Comments Results Result Comments Source CT Angiogram neck 07:37:03 Exam: CT Angiogram Head and Neck With Contrast, 04/04/2024 11:30 PM. Ordering Physician: MICHELLE PATIÑO. History: Neuro deficit, acute, stroke suspected Right hand numbness, head ache, altered mental status . Comparison: Same day CT head. Technique: CT angiography head and neck was obtained with intravenouscontrast. 3D MIP images were obtained. CT was performed according to ALARA(As Low As Reasonably Achievable). Arterial stenosis measurements are basedon NASCET criteria. Technical Quality: Adequate. Findings: CTA Neck:Aortic Arch: Demonstrates standard anatomy. ?Great Vessels: Origins show no significant stenosis. Right Carotid Artery: No significant stenosis or dissection.Left Carotid Artery: No significant stenosis or dissection. Right Extracranial Vertebral Artery: No significant stenosis or dissection.Left Extracranial Vertebral Artery: No significant stenosis or dissection. Soft Tissues: Aerodigestive tract is patent. There is no adenopathy in theneck.Lungs: Visualized lungs are clear. Osseous: No acute osseous finding. CTA Head: Intracranial Internal Carotid Artery Segments: No significant stenosis.Posterior Communicating Arteries: Normal. Anterior Cerebral Arteries: A1 and A2 segments show no large vesselocclusion, aneurysm, or significant stenosis.Middle Cerebral Arteries: M1 and M2 segments show no large vesselocclusion, aneurysm, or significant stenosis. Right Intracranial Vertebral Artery: No significant stenosis or dissection.Left Intracranial Vertebral Artery: No significant stenosis or dissection.Posterior Inferior Cerebellar Arteries: PatentBasilar Artery: No significant stenosis or dissection..Posterior Cerebral Arteries: P1 and P2 segments show no large vesselocclusion, aneurysm, or significant stenosis. Venous Sinuses: Major venous sinuses are patent. Brain: No midline shift, mass effect, or evidence of acute intracranialhemorrhage. [facility] CT Angiogram head 07:37:03 Exam: CT Angiogram Head and Neck With Contrast, 04/04/2024 11:30 PM. Ordering Physician: MICHELLE PATIÑO. History: Neuro deficit, acute, stroke suspected Right hand numbness, head ache, altered mental status . Comparison: Same day CT head. Technique: CT angiography head and neck was obtained with intravenouscontrast. 3D MIP images were obtained. CT was performed according to ALARA(As Low As Reasonably Achievable). Arterial stenosis measurements are basedon NASCET criteria. Technical Quality: Adequate. Findings: CTA Neck:Aortic Arch: Demonstrates standard anatomy. ?Great Vessels: Origins show no significant stenosis. Right Carotid Artery: No significant stenosis or dissection.Left Carotid Artery: No significant stenosis or dissection. Right Extracranial Vertebral Artery: No significant stenosis or dissection.Left Extracranial Vertebral Artery: No significant stenosis or dissection. Soft Tissues: Aerodigestive tract is patent. There is no adenopathy in theneck.Lungs: Visualized lungs are clear. Osseous: No acute osseous finding. CTA Head: Intracranial Internal Carotid Artery Segments: No significant stenosis.Posterior Communicating Arteries: Normal. Anterior Cerebral Arteries: A1 and A2 segments show no large vesselocclusion, aneurysm, or significant stenosis.Middle Cerebral Arteries: M1 and M2 segments show no large vesselocclusion, aneurysm, or significant stenosis. Right Intracranial Vertebral Artery: No significant stenosis or dissection.Left Intracranial Vertebral Artery: No significant stenosis or dissection.Posterior Inferior Cerebellar Arteries: PatentBasilar Artery: No significant stenosis or dissection..Posterior Cerebral Arteries: P1 and P2 segments show no large vesselocclusion, aneurysm, or significant stenosis. Venous Sinuses: Major venous sinuses are patent. Brain: No midline shift, mass effect, or evidence of acute intracranialhemorrhage. [facility] XR Chest 1 vw 06:54:39 Study: Single view chest. Ordering Physician: MONICA PATIÑO Date: 04/04/2024 11:30 PM History:ALTERED MENTAL STATUS COMPARISON: None. Findings: Single frontal view chest demonstrates a normal heart size. Thelungs are clear without infiltrate, pleural effusion or pneumothorax. Noacute osseous abnormality is identified. [facility] CT TRAUMA HEAD WO CONTRAST 01:54:54 EXAM: [...] cells are clear. The nasal septumis intact. [facility] CT Maxillofacial/m andible wo contrast 01:54:54 EXAM: [...] cells are clear. The nasal septumis intact. [facility] VW [id number] 16:05:56EXAM: XR WRIST 3+ VW RIGHT HISTORY: rt wrist fx ? COMPARISON: [id number] 20:33:00* Test Item Value Reference Range Interpretation Comme nts POCT PREG (test code = 1605) Negative On board controls acceptable with C Line (test code = 3574) Yes POCT PREG LOT # (test code = 3575) [id number] POCT PREG TEST DATE ( test code = 3576) 03/03/2025 Lab Interpretation (test cod e = 69781-7) Normal [facility] [id number] 20:22:54* Test Item Value Reference Range Interpretation [...] 34.2 g/dL 31.6-35.1 RDW-SD (test code = 15885-2) 41.4 fL 39.0-49.9 RDW-CV (test code = 788-0) 11.9 % 12.0-15.5 L PLT (test code = 777-3) 143 166-358 L MPV (test code = 11429-8) 9.5 fL 9.5-12.9 IPF % (test code = 0853026298) 3.4 % 1.3-7.7 Platelet count measured by fluorescence method. NRBC/100 WBC (test code = 0363357329) 0.0 0.0-10.0 NRBC x10^3 (test code = 0374313260) See_Comment [Automated messa ge] The system which generated this result transmitted reference range: 10*3/?L. The reference range was not used to interpret this result as normal/abnormal. GRAN MAT (NEUT) % (test code = 770-8) 65.3 % IMM GRAN % (test code = 4893629748) 0.40 % LYMPH % (test code = 736-9) 27.2 % MONO % (test code = 5905-5) 6.2 % EOS % (test code = 713-8) 0.5 % BASO % (test code = 706-2) 0.4 % GRAN MAT x10^3(ANC) (test code = 8043645353) 4.96 10*3/uL 1.88-7.09 IMM GRAN x10^3 (test code = 0481278748) 0.03 10*3/uL 0.00-0.06 LYMPH x10^3 (test code = 731-0) 2.07 10*3/uL 1.32-3.29 MONO x10^3 (test code = 742-7) 0.47 10*3/uL 0.33-0.92 EOS x10^3 (test code = 711-2) 0.04 10*3/uL 0.03-0.39 BASO x10^3 (test code = 704-7) 0.03 10*3/uL 0.01-0.07 Lab Interpretation (test code = 92968-1) Abnormal [facility] 20:07:11 ALCOHOL<10mg/dL12/08/2023 3:07 PM [facility]<10 Bjwdsnqt19-629 Toxic>100 Depression of DIRECTOR PEDIATRIC>400 Fatalities ReportedCHRISTUS [facility] BeevilleMagnesium2024-08-18 20:07:06* Test Item Value Reference Range Interpretation Comme nts MAGNESIUM (test code = 7657857684) 1.1 mg/dL 1.7-2.4 L Lab Interpretation (test cod e = 24718-7) Abnormal [facility]OL[facility] PANEL (77050)2023-12-08 19:58:38* Test Item Value Reference Range Interpretation Comme nts NA (test code = 4673446326) 136 mmol/L 135-145 K (test code = 4308989678) 3.5 mmol/L 3.5-5.0 CL (test code = 5170014330) 97 mmol/L 98-108 L CO2 TOTAL (test code = 0203866584) 28 mmol/L 23-31 AGAP (test code = 2793671115) 11 2-16 BUN (test code = 0320327734) 9 mg/dL 7-23 GLUCOSE (test code = 1690212165) 113 mg/dL 70-110 H CREATININE (test code = 2160-0) 0.52 mg/dL 0.50-1.04 TOTAL BILI (test code = 2687959868) 1.5 mg/dL 0.1-1.1 H CALCIUM (test code = 6537313251) 9.3 mg/dL 8.6-10.6 T PROTEIN (test code = 0238133830) 8.6 g/dL 6.3-8.2 H ALBUMIN (test code = 8087682047) 4.7 g/dL 3.5-5.0 ALK PHOS (test code = 3456051782) 138 U/L 34-122 H ALTv (test code = 1742-6) 32 U/L 5-35 AST(SGOT) (test code = 5507506524) 71 U/L 13-40 H eGFR (test code = 80906-4) 126.0 mL/min/1.73m2 CKD-EPI eGFR (2020). Assuming creatinine has been stable day-to-day for at least three months, the eGFR indicates Category G1 (>= 90 mL/min/1.73 m2) Lab Interpretation (test code = 52532-1) Abnormal [facility]2024-08-18 19:58:18* Test Item Value Reference Range Interpretation Comme nts LIPASE (test code = 4286687279) 122 U/L 0-220 Lab Interpretation (test cod e = 93086-4) Normal [facility] 21 + Lactic [id number] 19:41:27* Test Item Value Reference Range Interpretation Comme nts PH (test code = 3433321705) 7.45 7.32-7.42 H PCO2 TONY (test code = 8045464310) 41 41-51 PO2 TONY (test code = 7592739469) 32 25-40 HCO3 TONY (test code = 7270319928) 28 24-28 AC VBE(BEAKER) (test code = 3328733233) 3.6 mEq/L THB TONY (test code = 2888685742) 12.6 g/dL 12.0-16.0 %O2HB TONY (test code = 1617808020) 61.7 % 52.0-63.0 %COHB TONY (test code = 0181540354) 0.1 % 0.0-1.5 %METHB TONY (test code = 2344258806) 0.5 % 0.4-1.5 VOL%O2 TONY (test code = 8833534436) 10.9 % 6.0-12.0 NA (test code = 1652884823) 138 mmol/L 135-145 K+ (test code = 4308758421) 3.7 mmol/L 3.5-5.0 AC CA IONZ (test code = 3164770465) 4.50 mg/dL 4.50-5.30 GLUCOSE (test code = 9213637774) 101 mg/dL 70-110 LACTIC ACID (test code = 8991595114) 1.63 mmol/L 0.50-2.20 Lab Interpretation (test cod e = 75317-5) Abnormal [facility]2024-08-16 09:16:23* Test Item Value Reference Range Interpretation Comme nts ALCOHOL (test code = 0267797337) 186 mg/dL JASMYN (test code = JASMYN) <10 Ywkmxlkv04-552 Toxic>100 Depression of DIRECTOR PEDIATRIC>400 Fatalities Reported [facility] [id number] 03:09:00* Test Item Value Reference Range Interpretation Comme nts POCT PREG (test code = 1605) Negative On board controls acceptable with C Line (test code = 3574) Yes POCT PREG LOT # (test code = 3575) [id number] POCT PREG TEST DATE ( test code = 3576) 2025-03-03 Lab Interpretation (test cod e = 80161-4) Normal [facility]eville[facility] (QUANTITATIVE)2023-11-22 18:44:22 BETA HCG<2.39Non- female and male patients: <5 mIU/mL11/22/2023 1:44 PM [facility] Gestational Age ?Range (mIU/mL) 1-10 ?Weeks ?[id number] Weeks ?28983-41670792-31 Weeks ?0757-34310554-94 Weeks ?1531-132656 Biotin has been reported to cause a negative bias, interpret results relative to patient's use of biotin.[facility] TROPONIN [id number] 18:34:01* Test Item Value Reference Range Interpretation Comme nts TROPONIN I (test code = 2908197696) 0.006 ng/mL <=0.034 JASMYN (test code = [...] of biotin. Lab Interpretation (test code = 71846-0) Normal [facility] [id number] 18:28:32FULL RESULT: Examination: CT HEAD WO CONTRAST, [...] no intrinsic bony lesion, fracture or traumatic malalignment.[facility] CERVICAL SPINE WO CONTRAST 2023-11-22 18:28:32FULL RESULT: [...] no intrinsic bony lesion, fracture or traumatic malalignment.[facility]evilleD-Cvpcq2759-19-23 18:25:38* Test Item Value Reference Range Interpretation Comments D-DIMER (test code = 6641302151) 0.36 See_Comment [Automated message] The system which [...] a diagnosis. Lab Interpretation (test code = 29583-5) Normal [facility]OL2024-08-02 18:23:36 ALCOHOL<10mg/dL11/22/2023 1:23 PM [facility]<10 Ttitqoiq51-201 Toxic>100 Depression of DIRECTOR PEDIATRIC>400 Fatalities ReportedCHRISTUS [facility] BeevilleCOM. METABOLIC PANEL (81680)2023-11-22 18:22:35* Test Item Value Reference Range Interpretation Comme nts NA (test code = 4437953076) 136 mmol/L 135-145 K (test code = 6948349252) 4.4 3.5-5.0 CL (test code = 0805964911) 100 mmol/L 98-108 CO2 TOTAL (test code = 4136995855) 24 mmol/L 23-31 AGAP (test code = 7072656011) 12 2-16 BUN (test code = 3292263634) 18 mg/dL 7-23 GLUCOSE (test code = 6111847577) 89 mg/dL 70-110 CREATININE (test code = 2160-0) 0.71 mg/dL 0.50-1.04 TOTAL BILI (test code = 9953494950) 0.8 mg/dL 0.1-1.1 CALCIUM (test code = 8662306115) 9.4 mg/dL 8.6-10.6 T PROTEIN (test code = 3836551836) 8.0 g/dL 6.3-8.2 ALBUMIN (test code = 5109534936) 4.4 g/dL 3.5-5.0 ALK PHOS (test code = 8348941128) 93 U/L 34-122 ALTv (test code = 1742-6) 32 U/L 5-35 AST(SGOT) (test code = 4062837349) 46 U/L 13-40 H eGFR (test code = 57739-2) 115.3 mL/min/1.73m2 CKD-EPI eGFR (2020). Assuming creatinine has been stable day-to-day for at least three months, the eGFR indicates Category G1 (>= 90 mL/min/1.73 m2) Lab Interpretation (test code = 45496-8) Abnormal [facility]2024-08-02 18:22:15* Test Item Value Reference Range Interpretation Comme nts LIPASE (test code = 8097067677) 75 U/L 0-220 Lab Interpretation (test cod e = 75243-3) Normal [facility] WITH IMPQ0096-13-91 18:10:56* Test Item Value Reference Range Interpretation [...] 33.4 g/dL 31.6-35.1 RDW-SD (test code = 75855-9) 48.7 fL 39.0-49.9 RDW-CV (test code = 788-0) 13.1 % 12.0-15.5 PLT (test code = 777-3) 227 166-358 MPV (test code = 68713-2) 10.3 fL 9.5-12.9 NRBC/100 WBC (test code = 3199112206) 0.0 0.0-10.0 NRBC x10^3 (test code = 8728330059) See_Comment [Automated messa ge] The system which generated this result transmitted reference range: 10*3/?L. The reference range was not used to interpret this result as normal/abnormal. GRAN MAT (NEUT) % (test code = 770-8) 72.0 % IMM GRAN % (test code = 1784895617) 0.40 % LYMPH % (test code = 736-9) 13.8 % MONO % (test code = 5905-5) 12.5 % EOS % (test code = 713-8) 0.4 % BASO % (test code = 706-2) 0.9 % GRAN MAT x10^3(ANC) (test code = 4135291140) 5.35 10*3/uL 1.88-7.09 IMM GRAN x10^3 (test code = 0223580334) 0.03 10*3/uL 0.00-0.06 LYMPH x10^3 (test code = 731-0) 1.03 10*3/uL 1.32-3.29 L MONO x10^3 (test code = 742-7) 0.93 10*3/uL 0.33-0.92 H EOS x10^3 (test code = 711-2) 0.03 10*3/uL 0.03-0.39 BASO x10^3 (test code = 704-7) 0.07 10*3/uL 0.01-0.07 Lab Interpretation (test code = 17471-4) Abnormal [facility] UOSC9586-00-42 04:25:00* Test Item Value Reference Range Interpretation Comme nts POCT PREG (test code = 1605) Negative On board controls acceptable with C Line (test code = 3574) Yes POCT PREG LOT # (test code = 3575) [id number] POCT PREG TEST DATE ( test code = 3576) 2024-08-29 Lab Interpretation (test cod e = 87724-1) Normal [facility] BeevilleVitamin B12, Wujce9205-87-34 19:32:47* Test Item Value Reference Range Interpretation Comme nts VIT B12 (test code = 8430615915) 541 pg/mL 240-930 JASMYN (test code = JASMYN) Biotin has been reported to cause a positive bias, interpret results relative to patient's use of biotin. Lab Interpretation (test code = 71742-3) Normal [facility] BeevilleFolate2024-07-19 19:32:47* Test Item Value Reference Range Interpretation Comme nts FOLATE SER (test code = 6731134182) 5.0 ng/mL 3.0-20.0 Biotin has been reported to cause a positive bias, interpret results relative to patient's use of biotin. Lab Interpretation (test code = 92123-9) Normal [facility] WO [id number] 16:36:26EXAM: CT HEAD WO CONTRAST HISTORY: 33 years-old Female; Provided indication: Headache, new orworsening, neuro deficit (Age 18-49y) . History obtained from [facility]:"Patient admitted for alcohol withdrawal, now with worsening [...] mastoid aircells and visualized paranasal airsinuses are clear.[facility]evilleMagnesium2024-07-19 10:13:17* Test Item Value Reference Range Interpretation Comme nts MAGNESIUM (test code = 1421583398) 1.6 mg/dL 1.7-2.4 L Lab Interpretation (test cod e = 97804-7) Abnormal [facility] Metabolic Panel (NA, K, CL, CO2, GLUCOSE, BUN, CREATININE, CA)2023-11-08 10:13:02* Test Item Value Reference Range Interpretation Comme nts NA (test code = 3314229057) 135 mmol/L 135-145 K (test code = 5068708921) 3.2 mmol/L 3.5-5.0 L CL (test code = 0353001038) 98 mmol/L 98-108 CO2 TOTAL (test code = 3859478867) 29 mmol/L 23-31 AGAP (test code = 3428908479) 8 2-16 BUN (test code = 0764930165) 5 mg/dL 7-23 L GLUCOSE (test code = 7427994249) 113 mg/dL 70-110 H CREATININE (test code = 2160-0) 0.50 mg/dL 0.50-1.04 CALCIUM (test code = 4443360689) 8.9 mg/dL 8.6-10.6 eGFR (test code = 59060-0) 127.2 mL/min/1.73m2 CKD-EPI eGFR (2020). Assuming creatinine has been stable day-to-day for at least three months, the eGFR indicates Category G1 (>= 90 mL/min/1.73 m2) Lab Interpretation (test code = 65896-8) Abnormal [facility]evilleHepatic Function Panel (31072) (ALB,T.PRO,BILI T,BU/BC,ALT,AST,ALK PHOS)2023-11-08 10:13:02* Test Item Value Reference Range Interpretation Comme nts TOTAL BILI (test code = 0548813511) 1.3 mg/dL 0.1-1.1 H BILI UNCON (test code = 8193104518) 0.5 mg/dL 0.1-1.1 BILI CONJ (test code = 6801064941) 0.0 mg/dL 0.0-0.3 T PROTEIN (test code = 7424026550) 7.0 g/dL 6.3-8.2 ALBUMIN (test code = 3919321434) 4.0 g/dL 3.5-5.0 ALK PHOS (test code = 4150528803) 201 U/L 34-122 H ALTv (test code = 1742-6) 111 U/L 5-35 H AST(SGOT) (test code = 0246094204) 426 U/L 13-40 H Lab Interpretation (test cod e = 23179-1) Abnormal [facility]evillePhosphorus2024-07-19 10:13:01* Test Item Value Reference Range Interpretation Comme nts PHOSPHORUS (test code = 5808463094) 1.3 mg/dL 2.5-5.0 L Lab Interpretation (test cod e = 55186-6) Abnormal [facility] BeevilleCbc without Pass4319-70-72 09:41:55* Test Item Value Reference Range Interpretation [...] 160 166-358 L MPV (test code = 53387-7) 9.9 fL 9.5-12.9 RDW-CV (test code = 788-0) 13.2 % 12.0-15.5 RDW-SD (test code = 59268-0) 48.1 fL 39.0-49.9 NRBC x10^3 (test code = 2793550711) See_Comment [Automated messa ge] The system which generated this result transmitted reference range: 10*3/?L. The reference range was not used to interpret this result as normal/abnormal. NRBC/100 WBC (test code = 1087419522) 0.0 0.0-10.0 IPF % (test code = 8372197461) Lab Interpretation (test code = 50876-2) [facility] Bivys0967-10-51 07:27:21* Test Item Value Reference Range Interpretation Comme nts LACTIC ACID (test code = 6728905036) 2.14 mmol/L 0.50-2.20 Lab Interpretation (test cod e = 29267-9) Normal [facility] Venous Blood Phx8129-20-19 01:17:39 * Test Item Value Reference Range Interpretation Comme nts PH (test code = 7404492109) 7.28 7.32-7.42 L PCO2 TONY (test code = 6721991008) 35 41-51 L PO2 TONY (test code = 4339753735) 32 25-40 HCO3 TONY (test code = 3568760588) 16 24-28 L AC VBE(BEAKER) (test code = 2084462806) -9.8 mEq/L Lab Interpretation (test cod e = 14361-6) [facility] Whole Pfvoz2619-18-31 01:07:01* Test Item Value Reference Range Interpretation Comme nts LACTIC ACID (test code = 9570795616) 3.31 mmol/L 0.50-2.20 H Lab Interpretation (test cod e = 45540-8) Abnormal [facility] Nnhp8576-55-81 20:43:53Krista Cabrera MD ? ? 11/06/2023 ?3:43 [...] separately billable procedures and treating other patients. [facility] U8491-37-30 19:33:09* Test Item Value Reference Range Interpretation Comme nts TROPONIN I (test code = 2757054261) 0.004 ng/mL <=0.034 JASMYN (test code = [...] of biotin. Lab Interpretation (test code = 23747-6) Normal [facility]OL2024-07-17 19:33:09* Test Item Value Reference Range Interpretation Comme nts ALCOHOL (test code = 7143605645) 363 mg/dL JASMYN (test code = JASMYN) <10 Prudvxmi97-413 Toxic>100 Depression of DIRECTOR PEDIATRIC>400 Fatalities Reported [facility]evilleN-TERMINAL VFY-UZY9279-50-17 19:30:31* Test Item Value Reference Range Interpretation Comme nts NT-proBNP (test code = 98836-9) 108 pg/mL <=125 Lab Interpretation (test cod e = 07276-1) Normal [facility]POCT QJSB2364-17-83 19:25:00* Test Item Value Reference Range Interpretation Comme nts POCT PREG (test code = 1605) Negative On board controls acceptable with C Line (test code = 3574) Yes POCT PREG LOT # (test code = 3575) [id number] POCT PREG TEST DATE ( test code = 3576) 2024-08-27 Lab Interpretation (test cod e = 84596-6) Normal [facility]evilleMagnesium2024-07-17 19:16:32* Test Item Value Reference Range Interpretation Comme nts MAGNESIUM (test code = 3103215281) 2.2 mg/dL 1.7-2.4 Lab Interpretation (test cod e = 74022-3) Normal [facility]COMP. METABOLIC PANEL (56087)2023-11-06 19:16:12* Test Item Value Reference Range Interpretation Comme nts NA (test code = 7313855574) 141 mmol/L 135-145 K (test code = 0271847081) 4.3 mmol/L 3.5-5.0 CL (test code = 3377745217) 100 mmol/L 98-108 CO2 TOTAL (test code = 3138303611) 14 mmol/L 23-31 L AGAP (test code = 4954990099) 27 2-16 H BUN (test code = 3622600736) 12 mg/dL 7-23 GLUCOSE (test code = 3829415028) 60 mg/dL 70-110 L CREATININE (test code = 2160-0) 0.68 mg/dL 0.50-1.04 TOTAL BILI (test code = 6223003693) 1.4 mg/dL 0.1-1.1 H CALCIUM (test code = 1119869230) 9.0 mg/dL 8.6-10.6 T PROTEIN (test code = 6257385362) 9.7 g/dL 6.3-8.2 H ALBUMIN (test code = 5947823004) 5.4 g/dL 3.5-5.0 H ALK PHOS (test code = 4461437891) 207 U/L 34-122 H ALTv (test code = 1742-6) 79 U/L 5-35 H AST(SGOT) (test code = 9572146267) 154 U/L 13-40 H eGFR (test code = 08727-5) 118.1 mL/min/1.73m2 CKD-EPI eGFR (2020). Assuming creatinine has been stable day-to-day for at least three months, the eGFR indicates Category G1 (>= 90 mL/min/1.73 m2) Lab Interpretation (test code = 89272-1) Abnormal [facility]eville[facility]IPASE2024-07-17 19:15:46* Test Item Value Reference Range Interpretation Comme nts LIPASE (test code = 0364791878) 117 U/L 0-220 Lab Interpretation (test cod e = 75301-1) Normal [facility] WITH YHHU7325-42-24 19:07:27* Test Item Value Reference Range Interpretation [...] 32.3 g/dL 31.6-35.1 RDW-SD (test code = 97316-7) 53.5 fL 39.0-49.9 H RDW-CV (test code = 788-0) 13.9 % 12.0-15.5 PLT (test code = 777-3) 345 166-358 MPV (test code = 65001-5) 9.2 fL 9.5-12.9 L NRBC/100 WBC (test code = 6411323032) 0.0 0.0-10.0 NRBC x10^3 (test code = 5404566771) See_Comment [Automated messa ge] The system which generated this result transmitted reference range: 10*3/?L. The reference range was not used to interpret this result as normal/abnormal. GRAN MAT (NEUT) % (test code = 770-8) 57.5 % IMM GRAN % (test code = 1914955085) 0.90 % LYMPH % (test code = 736-9) 29.1 % MONO % (test code = 5905-5) 10.5 % EOS % (test code = 713-8) 0.0 % BASO % (test code = 706-2) 2.0 % GRAN MAT x10^3(ANC) (test code = 7944641574) 3.65 10*3/uL 1.88-7.09 IMM GRAN x10^3 (test code = 5666168253) 0.06 10*3/uL 0.00-0.06 LYMPH x10^3 (test code = 731-0) 1.85 10*3/uL 1.32-3.29 MONO x10^3 (test code = 742-7) 0.67 10*3/uL 0.33-0.92 EOS x10^3 (test code = 711-2) 0.03-0.39 L BASO x10^3 (test code = 704-7) 0.13 10*3/uL 0.01-0.07 H Lab Interpretation (test code = 13187-4) Abnormal [facility]eville[facility] PANEL 21 + LACTIC CYZA8256-33-12 18:57:00* Test Item Value Reference Range Interpretation Comme nts PH (test code = 1319846242) 7.16 7.32-7.42 LL PCO2 TONY (test code = 5732490341) 37 41-51 L PO2 TONY (test code = 9825711425) 44 25-40 H HCO3 TONY (test code = 3677950445) 13 24-28 L AC VBE(BEAKER) (test code = 4215949522) -15.1 mEq/L THB TONY (test code = 6022434132) 15.7 g/dL 12.0-16.0 %O2HB TONY (test code = 0468515269) 72.1 % 52.0-63.0 H %COHB TONY (test code = 0269436521) 0.4 % 0.0-1.5 %METHB TONY (test code = 9342565219) 0.3 % 0.4-1.5 L VOL%O2 TONY (test code = 7632737110) 15.9 % 6.0-12.0 H NA (test code = 8583985090) 142 mmol/L 135-145 K+ (test code = 4555102782) 4.2 mmol/L 3.5-5.0 AC CA IONZ (test code = 4720924736) 4.90 mg/dL 4.50-5.30 GLUCOSE (test code = 0008071598) 49 mg/dL 70-110 LL LACTIC ACID (test code = 0224388289) 3.62 mmol/L 0.50-2.20 H Lab Interpretation (test cod e = 63161-7) Abnormal [facility]evilleEthanol2024-07-08 05:06:04* Test Item Value Reference Range Interpretation Comme nts ALCOHOL (test code = 8738529131) 416 mg/dL JASMYN (test code = JASMYN) <10 Bdmffzqe76-275 Toxic>100 Depression of DIRECTOR PEDIATRIC>400 Fatalities Reported [facility]evilleSalicylate2024-07-08 04:57:31 SALICYLATE<10mg/L10/27/2023 11:57 PM [facility] Range: ? Analgesic and Antipyretic Use ? 20- 100 mg/L ? ? Anti-Inflammatory Use ?100-250 mg/L Toxic Range: ? Greater than 300 mg/LUnHCA [facility] Healthcare ConroeAcetaminophen2024-07-08 04:57:16* Test Item Value Reference Range Interpretation Comme nts ACETAMINOP (test code = 5775235181) 10.0-30.0 L JASMYN (test code = JASMYN) Toxic: Greater coreen n 200 ug/mL @ 4 hour post ingestion or greater than 50 ug/mL @ 12 hour post ingestion Lab Interpretation (test code = 81153-8) Abnormal [facility]. METABOLIC PANEL (99342)2023-10-28 04:56:21* Test Item Value Reference Range Interpretation Comme nts NA (test code = 3908200636) 143 mmol/L 135-145 K (test code = 5206433336) 4.1 mmol/L 3.5-5.0 CL (test code = 8217374398) 102 mmol/L 98-108 CO2 TOTAL (test code = 9635311107) 27 mmol/L 23-31 AGAP (test code = 3496384973) 14 2-16 BUN (test code = 1077963055) 13 mg/dL 7-23 GLUCOSE (test code = 5176120389) 75 mg/dL 70-110 CREATININE (test code = 2160-0) 0.59 mg/dL 0.50-1.04 TOTAL BILI (test code = 9760447527) 1.2 mg/dL 0.1-1.1 H CALCIUM (test code = 2286856746) 8.9 mg/dL 8.6-10.6 T PROTEIN (test code = 3673558922) 8.4 g/dL 6.3-8.2 H ALBUMIN (test code = 2632614042) 4.6 g/dL 3.5-5.0 ALK PHOS (test code = 8588632459) 169 U/L 34-122 H ALTv (test code = 1742-6) 82 U/L 5-35 H AST(SGOT) (test code = 3299907289) 217 U/L 13-40 H eGFR (test code = 23220-1) 122.2 mL/min/1.73m2 CKD-EPI eGFR (2020). Assuming creatinine has been stable day-to-day for at least three months, the eGFR indicates Category G1 (>= 90 mL/min/1.73 m2) Lab Interpretation (test code = 23178-3) Abnormal [facility] WITH KQVA6512-92-48 03:57:19* Test Item Value Reference Range Interpretation [...] 33.5 g/dL 31.6-35.1 RDW-SD (test code = 68619-0) 55.2 fL 39.0-49.9 H RDW-CV (test code = 788-0) 14.6 % 12.0-15.5 PLT (test code = 777-3) 210 166-358 MPV (test code = 55952-3) 9.3 fL 9.5-12.9 L NRBC/100 WBC (test code = 9973462160) 0.0 0.0-10.0 NRBC x10^3 (test code = 4974466954) See_Comment [Automated messa ge] The system which generated this result transmitted reference range: 10*3/?L. The reference range was not used to interpret this result as normal/abnormal. GRAN MAT (NEUT) % (test code = 770-8) 49.7 % IMM GRAN % (test code = 5999134169) 0.20 % LYMPH % (test code = 736-9) 38.7 % MONO % (test code = 5905-5) 9.4 % EOS % (test code = 713-8) 0.4 % BASO % (test code = 706-2) 1.6 % GRAN MAT x10^3(ANC) (test code = 0961651692) 2.55 10*3/uL 1.88-7.09 IMM GRAN x10^3 (test code = 1618642364) 0.00-0.06 LYMPH x10^3 (test code = 731-0) 1.98 10*3/uL 1.32-3.29 MONO x10^3 (test code = 742-7) 0.48 10*3/uL 0.33-0.92 EOS x10^3 (test code = 711-2) 0.03-0.39 L BASO x10^3 (test code = 704-7) 0.08 10*3/uL 0.01-0.07 H Lab Interpretation (test code = 08035-6) Abnormal [facility] XRYS2363-03-57 03:42:00* Test Item Value Reference Range Interpretation Comme nts POCT PREG (test code = 1605) Negative On board controls acceptable with C Line (test code = 3574) Yes POCT PREG LOT # (test code = 3575) [id number] POCT PREG TEST DATE ( test code = 3576) 08/27/2024 Lab Interpretation (test cod e = 12471-4) Normal [facility] GLUCOSE (AUTOMATED)2023-10-19 15:53:48* Test Item Value Reference Range Interpretation Comme nts POCT GLU (test code = 8305885349) 69 mg/dL 70-110 L Notified Provide r Lab Interpretation (test code = 78189-7) Abnormal [facility] GLUCOSE(AGE >30DAYS)2023-10-19 15:53:00* Test Item Value Reference Range Interpretation Comme nts POCT Glu (age>30days) (test code = 3342) 69 mg/dL, ED provider notified 70-110 Lab Interpretation (test code = 28258-3) Normal [facility] BeevilleLawyic Acid Whole Szqfi4527-77-11 21:09:38* Test Item Value Reference Range Interpretation Comme nts LACTIC ACID (test code = 5881474972) 2.03 mmol/L 0.50-2.20 Lab Interpretation (test cod e = 01668-7) Normal [facility] BeevilleLipase2024-05-30 19:51:22* Test Item Value Reference Range Interpretation Comme nts LIPASE (test code = 2883456034) 317 U/L 0-220 H Lab Interpretation (test cod e = 84393-6) Abnormal [facility] with Qhrz8726-77-36 18:33:19* Test Item Value Reference Range Interpretation [...] 34.6 g/dL 31.6-35.1 RDW-SD (test code = 94551-1) 46.7 fL 39.0-49.9 RDW-CV (test code = 788-0) 13.2 % 12.0-15.5 PLT (test code = 777-3) 90 166-358 L MPV (test code = 22850-5) 9.6 fL 9.5-12.9 IPF % (test code = 6649696122) 3.9 % 1.3-7.7 Platelet count measured by fluorescence method. NRBC/100 WBC (test code = 5803963553) 0.0 0.0-10.0 NRBC x10^3 (test code = 5343089134) See_Comment [Automated 5o9a ge] The system which generated this result transmitted reference range: 10*3/?L. The reference range was not used to interpret this result as normal/abnormal. GRAN MAT (NEUT) % (test code = 770-8) 68.9 % IMM GRAN % (test code = 7327373360) 1.20 % LYMPH % (test code = 736-9) 20.5 % MONO % (test code = 5905-5) 8.3 % EOS % (test code = 713-8) 0.3 % BASO % (test code = 706-2) 0.8 % GRAN MAT x10^3(ANC) (test code = 3752416862) 4.06 10*3/uL 1.88-7.09 IMM GRAN x10^3 (test code = 9083250537) 0.07 10*3/uL 0.00-0.06 H LYMPH x10^3 (test code = 731-0) 1.21 10*3/uL 1.32-3.29 L MONO x10^3 (test code = 742-7) 0.49 10*3/uL 0.33-0.92 EOS x10^3 (test code = 711-2) 0.03-0.39 L BASO x10^3 (test code = 704-7) 0.05 10*3/uL 0.01-0.07 BANDS (test code = 7993511904) Increased A Lab Interpretation (test code = 13575-4) Abnormal [facility]evilleCreatine Ohyfvm6018-56-59 18:21:08* Test Item Value Reference Range Interpretation Comme nts CK (test code = 8845576858) 112 U/L 33-194 Lab Interpretation (test cod e = 71724-3) Normal [facility]evilleComp. Metabolic Panel (23182)2023-09-19 18:01:22* Test Item Value Reference Range Interpretation Comme nts NA (test code = 9040690849) 139 mmol/L 135-145 K (test code = 4494101443) 3.5 mmol/L 3.5-5.0 CL (test code = 4859152944) 97 mmol/L 98-108 L CO2 TOTAL (test code = 5835560752) 29 mmol/L 23-31 AGAP (test code = 6071211279) 13 2-16 BUN (test code = 7655694915) 14 mg/dL 7-23 GLUCOSE (test code = 8905145351) 116 mg/dL 70-110 H CREATININE (test code = 2160-0) 0.64 mg/dL 0.50-1.04 TOTAL BILI (test code = 0036612488) 1.0 mg/dL 0.1-1.1 CALCIUM (test code = 4250370618) 8.9 mg/dL 8.6-10.6 T PROTEIN (test code = 2445195177) 8.7 g/dL 6.3-8.2 H ALBUMIN (test code = 6699247451) 4.7 g/dL 3.5-5.0 ALK PHOS (test code = 6757723282) 267 U/L 34-122 H ALTv (test code = 1742-6) 63 U/L 5-35 H AST(SGOT) (test code = 1801779725) 277 U/L 13-40 H eGFR (test code = 49152-9) 119.8 mL/min/1.73m2 CKD-EPI eGFR (2020). Assuming creatinine has been stable day-to-day for at least three months, the eGFR indicates Category G1 (>= 90 mL/min/1.73 m2) Lab Interpretation (test code = 10256-6) Abnormal [facility]evilleXR CHEST 1 JI2663-38-11 17:15:42HISTORY: Tachycardia, cough, COVID. TECHNIQUE: Portable AP upright view of the chest is obtained. Comparisonmade with 09/13/2023 study. FINDINGS: No acute pneumonia. No pneumothorax or pleural effusion orpulmonary congestion detected. Cardiac size is within normal limits. CONCLUSIONS: No signs of acute cardiopulmonary disease. [facility] Whole [id number] 17:11:09* Test Item Value Reference Range Interpretation Comme nts LACTIC ACID (test code = 9596346617) 4.10 mmol/L 0.50-2.20 H Lab Interpretation (test cod e = 90418-4) [facility]normal [facility]ULMONARY [id number] 17:58:59Provider: CECILE RANGEL Exam: CT CHEST PULMONARY [...] Within normal limits. Musculoskeletal: No acute bony abnormality.[facility]evilleTROP[facility] [id number] 17:47:34* Test Item Value Reference Range Interpretation Comme nts TROPONIN I (test code = 7323436215) 0.003 ng/mL <=0.034 JASMYN (test code = [...] of biotin. Lab Interpretation (test code = 59663-7) Normal [facility]MINAL [id number] 17:45:17* Test Item Value Reference Range Interpretation Comme [facility] NT-proBNP (test code = 73937-4) 48 pg/mL <=125 Lab Interpretation (test cod e = 06130-1) Normal [facility] METABOLIC PANEL (61482)2023-09-15 17:36:58* Test Item Value Reference Range Interpretation Comme nts NA (test code = 8952758256) 144 mmol/L 135-145 K (test code = 4602985140) 3.4 mmol/L 3.5-5.0 L CL (test code = 5858680989) 102 mmol/L 98-108 CO2 TOTAL (test code = 4303219887) 33 mmol/L 23-31 H AGAP (test code = 7272132111) 9 2-16 BUN (test code = 0932549405) 7 mg/dL 7-23 GLUCOSE (test code = 3897586155) 91 mg/dL 70-110 CREATININE (test code = 2160-0) 0.63 mg/dL 0.50-1.04 TOTAL BILI (test code = 4823670619) 1.0 mg/dL 0.1-1.1 CALCIUM (test code = 1540613439) 8.5 mg/dL 8.6-10.6 L T PROTEIN (test code = 3027692151) 8.0 g/dL 6.3-8.2 ALBUMIN (test code = 3388588539) 4.2 g/dL 3.5-5.0 ALK PHOS (test code = 2268326085) 182 U/L 34-122 H ALTv (test code = 1742-6) 48 U/L 5-35 H AST(SGOT) (test code = 9806825298) 175 U/L 13-40 H eGFR (test code = 60584-7) 120.3 mL/min/1.73m2 CKD-EPI eGFR (2020). Assuming creatinine has been stable day-to-day for at least three months, the eGFR indicates Category G1 (>= 90 mL/min/1.73 m2) Lab Interpretation (test code = 46878-2) Abnormal [facility]-[id number] 17:13:34* Test Item Value Reference Range Interpretation Comments D-DIMER (test code = 3673188123) 0.93 See_Comment H [Automated message] The system [...] a diagnosis. Lab Interpretation (test code = 73687-7) Abnormal [facility] WITH [id number] 17:06:37* Test Item Value Reference Range Interpretation [...] 34.4 g/dL 31.6-35.1 RDW-SD (test code = 87496-0) 46.2 fL 39.0-49.9 RDW-CV (test code = 788-0) 12.9 % 12.0-15.5 PLT (test code = 777-3) 150 166-358 L MPV (test code = 52110-6) 9.1 fL 9.5-12.9 L NRBC/100 WBC (test code = 9760549026) 0.0 0.0-10.0 NRBC x10^3 (test code = 7276547164) See_Comment [Automated messa ge] The system which generated this result transmitted reference range: 10*3/?L. The reference range was not used to interpret this result as normal/abnormal. GRAN MAT (NEUT) % (test code = 770-8) 50.9 % IMM GRAN % (test code = 3062155624) 0.50 % LYMPH % (test code = 736-9) 39.0 % MONO % (test code = 5905-5) 7.1 % EOS % (test code = 713-8) 1.0 % BASO % (test code = 706-2) 1.5 % GRAN MAT x10^3(ANC) (test code = 6532767979) 3.02 10*3/uL 1.88-7.09 IMM GRAN x10^3 (test code = 5827614886) 0.03 10*3/uL 0.00-0.06 LYMPH x10^3 (test code = 731-0) 2.31 10*3/uL 1.32-3.29 MONO x10^3 (test code = 742-7) 0.42 10*3/uL 0.33-0.92 EOS x10^3 (test code = 711-2) 0.06 10*3/uL 0.03-0.39 BASO x10^3 (test code = 704-7) 0.09 10*3/uL 0.01-0.07 H Lab Interpretation (test code = 41538-1) [facility]normal [facility] Whole Gckqg2717-13-22 16:57:54* Test Item Value Reference Range Interpretation Comme [facility] LACTIC ACID (test code = 3464417467) 1.81 mmol/L 0.50-2.20 Lab Interpretation (test cod e = 05667-1) Normal [facility] FQUG7698-36-64 16:53:00* Test Item Value Reference Range Interpretation Comme nts POCT PREG (test code = 1605) Negative On board controls acceptable with C Line (test code = 3574) Yes POCT PREG LOT # (test code = 3575) [id number] POCT PREG TEST DATE ( test code = 3576) 08-23-2024 Lab Interpretation (test cod e = 50742-5) Normal [facility] CHEST 2 YK0530-33-01 00:39:44Exam: Chest (2 Views), 09/13/2023 6:30 PM. Ordering Physician: ELENO OLMSTEAD. History: fever . Technique: Two views of the chest. Comparison: None. Findings: No focal consolidation. No pneumothorax or effusion. Normal size of thecardiac silhouette. No acute osseous finding.[facility] GBMO8829-14-45 00:14:00* Test Item Value Reference Range Interpretation Comme nts POCT PREG (test code = 1605) Negative On board controls acceptable with C Line (test code = 3574) Yes POCT PREG LOT # (test code = 3575) [id number] POCT PREG TEST DATE ( test code = 3576) 05/27/2024 Lab Interpretation (test cod e = 56784-6) Normal [facility]evilleTransthoracic echo (TTE)2023-04-27 05:37:38* Test Item Value Reference Range Interpretation Comme nts Height (test code = 4288037841) 67 in Weight (test code = 9759514343) 109 lbs Systolic BP (test code = 2555198178) 102 mmHg Diastolic BP (test code = 8431870473) 67 mmHg Heart Rate (test code = 9728082533) 78 bpm BSA (test code = 9225038441) 1.56 m2 Ao root diam (test code = 1384673598) 3.10 cm Aortic root (test code = 4213228491) 3.1 cm Ao root annulus (test code = 7266380607) 3.1 cm LVOT diameter (test code = 8826938994) 2.02 cm LVOT area (test code = 7862889949) 3.20 cm2 LVIDD (test code = 9004217207) 3.60 cm Left Ventricular End Diastolic Volume by Teichholz Method (test code = 5383900) 56.1 mL IVS (test code = 3620494456) 0.63 cm Interventricular Septum Diastolic Thickness by 2D (test code = 5973651) 0.63 cm LVPWD (test code = 4591060446) 0.65 cm PW (test code = 0082433417) 0.65 cm 0.6-1.1 EF(Teich) (test code = 1819765208) 54.30 % LVIDS (test code = 5828374950) 2.60 cm Left Ventricular End Systolic Volume by Teichholz Method (test code = 9617134) 25.6 mL FS (test code = 9807237570) 28 % EF - 2D (test code = 29803471) 54.30 % LA size (test code = 9207649864) 2.8 cm LAV(MOD-sp4) (test code = 3644346190) 25.30 mL E wave decelartion time (test code = 8564258453) 0.19 s MV stenosis pressure 1/2 time (test code = 9568248285) 55.0 ms MV Peak A Liv (test code = 1873092820) 50.8 cm/s MV Peak E Liv (test code = 9565350681) 84.4 cm/s E/A ratio (test code = 2201799096) 1.66 ratio MV Prop V (test code = 0515479295) 37.10 cm/s MV E/e' septal (test code = 6305185860) 22.4 cm/s Tapse (test code = 5713263884) 1.68 cm LVOT stroke volume (test code = 0549168364) 46.00 cm3 LVOT peak liv (test code = 0520497001) 77.0 cm/s LVOT mn grad (test code = 9407187560) 1.3 mmHg AV LVOT peak gradient (test code = 3477512901) 2.37 mmHg LVOT peak VTI (test code = 4846210171) 14.3 cm LV V1 mean (test code = 8823072869) 54.20 cm/s Aortic valve mean velocity (test code = 7368649630) 82.4 cm/s Ao peak liv (test code = 8743719980) 108.4 cm/s Ao VTI (test code = 8785164053) 20.9 cm AV area by cont VTI (test code = 2761023355) 2.2 cm2 AV area peak liv (test code = 4030321666) 2.3 cm2 Ao max PG (test code = 5205556220) 4.70 mm[Hg] AV peak gradient (test code = 4622799682) 4.7 mmHg AV valve area (test code = 9994640318) 2.20 cm2 AV mean gradient (test code = 6051693757) 2.9 mmHg MR max PG (test code = 5973954141) 94.40 mm[Hg] MR max liv (test code = 2710616382) 485.70 cm/s Mr max liv (test code = 1256840759) 485.7 m/s Radiology Study observation (narrative) (test code = 47375-2) JASMYN (test code = JASMYN) ?Left?Ventricle: Left [...] 2D, color flow Doppler and spectral Doppler. [facility] with Fqwlbehnyimx2623-21-99 12:37:35* Test Item Value Reference Range Interpretation Comme nts WBC (test code = 6690-2) 3.78 See_Comment L [Automated 5o[employer]a [employer]] The system which generated this result transmitted reference range: 4.30 - 11.10 10*3/?L. The reference range was not used to interpret this result as normal/abnormal. RBC (test code = 789-8) 2.95 See_Comment L [Automated [employer]] The system which generated this result transmitted [...] 33.8 g/dL 31.6-35.1 RDW-SD (test code = 13468-2) 45.7 fL 39.0-49.9 RDW-CV (test code = 788-0) 12.6 % 12.0-15.5 PLT (test code = 777-3) 95 See_Comment L [Automated [employer]] The system which generated this result transmitted reference range: 166 - 358 10*3/?L. The reference range was not used to interpret this result as normal/abnormal. MPV (test code = 52217-7) 11.6 fL 9.5-12.9 IPF % (test code = 2039801474) 9.1 % 1.3-7.7 H Platelet count measured by fluorescence method. NRBC/100 WBC (test code = 7419766316) 0.0 See_Comment [Automated Xt[employer] ssage] The system which generated this result transmitted reference range: 0.0 - 10.0 /100 WBCs. The reference range was not used to interpret this result as normal/abnormal. NRBC x10^3 (test code = 2518452775) See_Comment [Automated 5o9a ge] The system which generated this result transmitted reference range: 10*3/?L. The reference range was not used to interpret this result as normal/abnormal. SEG % (test code = 13393-5) 56 % 33-76 LYMPH % (test code = 80174-5) 32 % 14-54 MONO % (test code = 98820-5) 12 % 0-4 H ANC (test code = 753-4) 2.12 10*3/uL 1.88-7.09 Lab Interpretation (test code = 63366-4) Abnormal [facility]evilleProthrombin Time / [id number] 11:49:08* Test Item Value Reference Range Interpretation Comme [facility] PROTIME PATIENT (test code = 5964-2) 15.3 See_Comment H [Automated 5o9a ge] The system which generated this result transmitted reference range: 12.0 - 14.7 Seconds. The reference range was not used to interpret this result as normal/abnormal. INR (test code = 6301-6) 1.2 Normal INR <1.1; Warfarin Therapeutic range 2.0 to 3.0 or 2.5 to 3.5, depending upon the indications. Lab Interpretation (test code = 60270-5) Abnormal [facility]evilleaPTT2024-01-04 11:49:08* Test Item Value Reference Range Interpretation Comme [facility] APTT Patient (test code = 3173-2) 29 See_Comment [Automated message] The system which generated this result transmitted reference range: 23 - 38 Seconds. The reference range was not used to interpret this result as normal/abnormal. JASMYN (test code = JASMYN) The [facility] patient population mean normal value for aPTT is 30 seconds. Lab Interpretation (test code = 00863-1) Normal [facility]evilleComp. Metabolic Panel (90739)2023-04-25 11:44:23* Test Item Value Reference Range Interpretation Comme nts NA (test code = 1709519674) 136 mmol/L 135-145 K (test code = 0677217793) 2.6 mmol/L 3.5-5.0 LL CL (test code = 7632651571) 100 mmol/L 98-108 CO2 TOTAL (test code = 3482525403) 30 mmol/L 23-31 AGAP (test code = 2375975814) 6 2-16 BUN (test code = 5426147013) 16 mg/dL 7-23 GLUCOSE (test code = 7092744979) 96 mg/dL 70-110 CREATININE (test code = 5982214139) 0.71 mg/dL 0.50-1.04 TOTAL BILI (test code = 4213572268) 4.0 mg/dL 0.1-1.1 H CALCIUM (test code = 6249016714) 7.5 mg/dL 8.6-10.6 L T PROTEIN (test code = 2019344820) 5.8 g/dL 6.3-8.2 L ALBUMIN (test code = 3513108352) 3.0 g/dL 3.5-5.0 L ALK PHOS (test code = 7630748169) 170 U/L 34-122 H ALTv (test code = 1742-6) 50 U/L 5-35 H AST(SGOT) (test code = 7885071340) 139 U/L 13-40 H eGFR (test code = 85315-7) 115.3 mL/min/1.73m2 CKD-EPI eGFR (2020). Assuming creatinine has been stable day-to-day for at least three months, the eGFR indicates Category G1 (>= 90 mL/min/1.73 m2) Lab Interpretation (test code = 50043-9) Abnormal [facility] BeevilleMagnesium Kqmgi2075-88-42 11:43:47* Test Item Value Reference Range Interpretation Comme nts MAGNESIUM (test code = 3124707374) 2.0 mg/dL 1.7-2.4 Lab Interpretation (test cod e = 81903-3) Normal [facility]evilleN-TERMINAL FLV-HRC0500-75-04 11:43:47* Test Item Value Reference Range Interpretation Comme nts NT-proBNP (test code = 98037-4) 399 pg/mL <=125 JASMYN (test code = JASMYN) Result Indeterminate-Consid er causes of NT-proBNP elevation other than Heart failure such as acute coronary syndrome, pulmonary embolism, pulmonary hypertension, sepsis, stroke, and renal dysfunction. Lab Interpretation (test code = 35405-8) Abnormal [facility] BeevilleLipase2024-01-04 11:43:47* Test Item Value Reference Range Interpretation Comme nts LIPASE (test code = 8263414368) 475 U/L 0-220 H Lab Interpretation (test cod e = 53604-4) Abnormal [facility] BeevillePhosphorus Lumyj2301-73-65 06:12:16* Test Item Value Reference Range Interpretation Comme nts PHOSPHORUS (test code = 9932269970) 2.0 mg/dL 2.5-5.0 L Slight hemolysis Lab Interpretation (test code = 78358-4) Abnormal [facility] BeevilleLipase2024-01-04 04:47:27* Test Item Value Reference Range Interpretation Comme nts LIPASE (test code = 7587662496) 506 U/L 0-220 H Lab Interpretation (test cod e = 26019-9) Abnormal [facility] BeevilleCT ABDOMEN PELVIS W TGLJKKTM9773-49-79 01:43:47History: Abdominal abscess/infection suspected Elevated bilirubin 6.9, [...] obstruction, perforation, or abscess. The osseous structures areunremarkable.[facility] BeevilleEthanol2024-01-04 00:23:03 ALCOHOL<10mg/dL04/24/2023 6:23 PM [facility]<10 Ecikukvm72-649 Toxic>100 Depression of DIRECTOR PEDIATRIC>400 Fatalities ReportedUnHCA Houston Healthcare ConroeAmmonia, Abtpyg9677-57-95 23:56:33* Test Item Value Reference Range Interpretation Comme nts AMMONIA (test code = 7892736599) 24 umol/L 9-33 Lab Interpretation (test cod e = 47548-6) Normal [facility] BeevillePOCT Dhed1585-28-04 23:41:00* Test Item Value Reference Range Interpretation Comme nts POCT PREG (test code = 1605) Negative On board controls acceptable with C Line (test code = 3574) Yes POCT PREG LOT # (test code = 3575) [id number] POCT PREG TEST DATE ( test code = 3576) 06/30/2024 Lab Interpretation (test cod e = 50622-2) Normal [facility] BeevilleMagnesium2024-01-03 23:24:49* Test Item Value Reference Range Interpretation Comme nts MAGNESIUM (test code = 1423150494) 1.4 mg/dL 1.7-2.4 L Lab Interpretation (test cod e = 02822-4) Abnormal [facility]evilleComp. Metabolic Panel (10993)2023-04-24 23:24:28* Test Item Value Reference Range Interpretation Comme nts NA (test code = 0807379618) 134 mmol/L 135-145 L K (test code = 1353537709) 3.6 mmol/L 3.5-5.0 CL (test code = 3826461679) 91 mmol/L 98-108 L CO2 TOTAL (test code = 1394281881) 31 mmol/L 23-31 AGAP (test code = 3891394699) 12 2-16 BUN (test code = 3121019834) 24 mg/dL 7-23 H GLUCOSE (test code = 1926206143) 104 mg/dL 70-110 CREATININE (test code = 2587233929) 1.13 mg/dL 0.50-1.04 H TOTAL BILI (test code = 5882390474) 6.9 mg/dL 0.1-1.1 H CALCIUM (test code = 0343290814) 9.5 mg/dL 8.6-10.6 T PROTEIN (test code = 2247818588) 8.6 g/dL 6.3-8.2 H ALBUMIN (test code = 1882749828) 4.6 g/dL 3.5-5.0 ALK PHOS (test code = 6290834261) 243 U/L 34-122 H ALTv (test code = 1742-6) 70 U/L 5-35 H AST(SGOT) (test code = 6346350728) 203 U/L 13-40 H eGFR (test code = 63366-7) 66.0 mL/min/1.73m2 CKD-EPI eGFR (2020). Assuming creatinine has been stable day-to-day for at least three months, the eGFR indicates Category G2 (60 - 89 mL/min/1.73 m2) Lab Interpretation (test code = 63575-7) Abnormal [facility] BeevilleProthrombin Time / [id number] 23:23:27* Test Item Value Reference Range Interpretation [...] the indications. Lab Interpretation (test code = 26958-6) Abnormal [facility] BeevilleActivated Partial Thrmplas Gup9561-42-42 23:19:26* Test Item Value Reference Range Interpretation Comme [facility] APTT Patient (test code = 3173-2) 29 See_Comment [Automated message] The system which generated this result transmitted reference range: 23 - 38 Seconds. The reference range was not used to interpret this result as normal/abnormal. JASMYN (test code = JASMYN) The [facility] patient population mean normal value for aPTT is 30 seconds. Lab Interpretation (test code = 22969-8) Normal [facility] BeevilleCbc with Ekrc1301-83-25 23:17:49* Test Item Value Reference Range Interpretation Comme nts WBC (test code = 6690-2) 6.47 See_Comment [Automated 5o9a ge] The system which generated this result transmitted reference range: 4.30 - 11.10 10*3/?L. The reference range was not used to interpret this result as normal/abnormal. RBC (test code = 789-8) 3.85 See_Comment L [Automated 5o9a ge] The system which generated this result [...] 35.0 g/dL 31.6-35.1 RDW-SD (test code = 01623-6) 44.6 fL 39.0-49.9 RDW-CV (test code = 788-0) 12.4 % 12.0-15.5 PLT (test code = 777-3) 123 See_Comment L [Automated messa ge] The system which generated this result transmitted reference range: 166 - 358 10*3/?L. The reference range was not used to interpret this result as normal/abnormal. MPV (test code = 39953-6) 11.9 fL 9.5-12.9 IPF % (test code = 6425672204) 11.9 % 1.3-7.7 H Platelet count measured by fluorescence method. NRBC/100 WBC (test code = 1362812331) 0.0 See_Comment [Automated [employer] ssage] The system which generated this result transmitted reference range: 0.0 - 10.0 /100 WBCs. The reference range was not used to interpret this result as normal/abnormal. NRBC x10^3 (test code = 3587953273) See_Comment [Automated 5o9a ge] The system which generated this result transmitted reference range: 10*3/?L. The reference range was not used to interpret this result as normal/abnormal. GRAN MAT (NEUT) % (test code = 770-8) 59.8 % IMM GRAN % (test code = 3743865646) 0.30 % LYMPH % (test code = 736-9) 18.1 % MONO % (test code = 5905-5) 20.2 % EOS % (test code = 713-8) 0.5 % BASO % (test code = 706-2) 1.1 % GRAN MAT x10^3(ANC) (test code = 2867292747) 3.87 10*3/uL 1.88-7.09 IMM GRAN x10^3 (test code = 0575047119) 0.00-0.06 LYMPH x10^3 (test code = 731-0) 1.17 10*3/uL 1.32-3.29 L MONO x10^3 (test code = 742-7) 1.31 10*3/uL 0.33-0.92 H EOS x10^3 (test code = 711-2) 0.03 10*3/uL 0.03-0.39 BASO x10^3 (test code = 704-7) 0.07 10*3/uL 0.01-0.07 Lab Interpretation (test code = 51353-9) Abnormal [facility] BeevilleUA RFLX MICR CULT IF WUHWWWVVP7176-51-45 04:32:00* Test Item Value Reference Range Interpretation [...] culture: Suprapubic PainSpecimen Description: CLEAN CATCHUR HCG [id number] 04:32:00* Test Item Value Reference Range Interpretation Comme nts UR HCG QUAL (test code = HCGQLU) NEGATIVE 1. Very dilute u rine specimens, as indicated by a lowspecific gravity, may not contain employer relations representative levels ofhCG. 2. False negative results may occur when the levels of hCGare below the sensitivity level of the test. If is still suspected, a first morningurine specimen should be collected 48 hours later andtested. Indication for culture: Suprapubic PainSpecimen Description: CLEAN CATCHC REACTIVE BCPOJUT9817-14-93 03:55:00* Test Item Value Reference Range Interpretation Comme nts C REACTIVE PROTEIN (test cod e = CRP) 0.30 mg/dL < 0.3 N COMPREHENSIVE METABOLIC LJQFQ3444-92-63 03:55:00* Test Item Value Reference Range Interpretation [...] code = ALKP) 173 units/L 46-116 H - CT MAXIFAC W/LVDYKDHW1735-83-03 03:43:00 [facility] : 1990 Sex: F Patient Name: ETHEL AMATO Unit No: [id number] EXAMS: CPT CODE: [id number] CT MAXIFAC W/CONTRAST 35424 CT MAXILLOFACIAL WITH CONTRAST, 01/12/2023. CLINICAL: Pain. [...] DLP: 662.82 Trnscrbd D/ (0343) t.SDR.JS28 [facility] NAME: ETHEL AMATO Radiology Department PHYS: Jacob Gill MD [address] : 1990 AGE: 32 SEX: F [place] [address] LOC: KianaERS PHONE #: [phone] EXAM DATE: 01/12/2023 STATUS: PRE ER FAX #: [phone] RAD NO: Page 1 Signed Report 1 Patient Name: ETHEL AMATO Unit No: [id number] EXAMS: CPT CODE: [id number] CT MAXIFAC W/CONTRAST 30169 (Continued) Orig Print D/T: S: 01/12/2023 (0346) [facility] NAME: ETHEL AMATO Radiology Department PHYS: Jacob Gill MD [address] : 1990 AGE: 32 SEX: F [place] [address] LOC: Richard.ERS PHONE #: [phone] EXAM DATE: 01/12/2023 STATUS: PRE ER FAX #: [phone] RAD NO: Page 2 Signed Report 1CBC W/AUTO EEIH2380-72-76 03:29:00* Test Item Value Reference Range Interpretation [...] [facility] POCT GLU (test code = 6262029217) 155 mg/dL 70-110 H Lab Interpretation (test cod e = 17752-9) Abnormal [facility] GLUCOSE (AUTOMATED)2022-11-11 18:35:24* Test Item Value Reference Range Interpretation Comme [facility] POCT GLU (test code = 7900856899) 126 mg/dL 70-110 H Lab Interpretation (test cod e = 25353-2) Abnormal [facility] GLUCOSE (AUTOMATED)2022-11-11 17:52:07* Test Item Value Reference Range Interpretation Comme nts POCT GLU (test code = 2056597732) 66 mg/dL 70-110 L Lab Interpretation (test cod e = 59604-7) Abnormal [facility]evilleMAGNESIUM2023-07-23 14:12:09* Test Item Value Reference Range Interpretation Comme nts MAGNESIUM (test code = 2882662586) 1.7 mg/dL 1.7-2.4 Slight hemolysis Lab Interpretation (test code = 99624-3) Normal [facility] GLUCOSE (AUTOMATED)2022-11-11 12:23:05* Test Item Value Reference Range Interpretation Comme nts POCT GLU (test code = 0420739525) 59 mg/dL 70-110 L Lab Interpretation (test cod e = 41858-0) Abnormal [facility] WITH NPVI2591-79-73 11:41:02* Test Item Value Reference Range Interpretation [...] 32.6 g/dL 31.6-35.1 RDW-SD (test code = 77999-3) 44.8 fL 39.0-49.9 RDW-CV (test code = 788-0) 11.5 % 12.0-15.5 L PLT (test code = 777-3) 158 See_Comment L [Automated messa ge] The system which generated this result transmitted reference range: 166 - 358 10*3/?L. The reference range was not used to interpret this result as normal/abnormal. MPV (test code = 02408-2) 10.3 fL 9.5-12.9 NRBC/100 WBC (test code = 8662625559) 0.0 See_Comment [Automated [employer] ssage] The system which generated this result transmitted reference range: 0.0 - 10.0 /100 WBCs. The reference range was not used to interpret this result as normal/abnormal. NRBC x10^3 (test code = 6416057927) See_Comment [Automated messa ge] The system which generated this result transmitted reference range: 10*3/?L. The reference range was not used to interpret this result as normal/abnormal. SEG % (test code = 52560-2) 37 % 33-76 BAND % (test code = 02456-1) 1 % 0-1 LYMPH % (test code = 07403-5) 42 % 14-54 MONO % (test code = 37072-3) 19 % 0-4 H EOS % (test code = 18164-8) 1 % 0-3 ANC (test code = 753-4) 1.24 10*3/uL 1.88-7.09 L Lab Interpretation (test code = 65646-8) Abnormal [facility] BeevilleLIPASE2023-07-23 10:28:35* Test Item Value Reference Range Interpretation Comme nts LIPASE (test code = 3702912608) 745 U/L 0-220 H Lab Interpretation (test cod e = 47875-6) Abnormal [facility] BeevilleCOMP. METABOLIC PANEL (30973)2022-11-11 10:28:35* Test Item Value Reference Range Interpretation Comme nts NA (test code = 1319313551) 138 mmol/L 135-145 K (test code = 7392090661) 3.0 mmol/L 3.5-5.0 L Slight hemolysis CL (test code = 7796816380) 113 mmol/L 98-108 H CO2 TOTAL (test code = 3117762965) 17 mmol/L 23-31 L AGAP (test code = 7302843028) 8 2-16 BUN (test code = 0635861380) 13 mg/dL 7-23 Slight hemolysis GLUCOSE (test code = 4865085176) 39 mg/dL 70-110 LL CREATININE (test code = 0044504562) 0.38 mg/dL 0.50-1.04 L TOTAL BILI (test code = 5380595372) 1.3 mg/dL 0.1-1.1 H CALCIUM (test code = 8974512266) 7.1 mg/dL 8.6-10.6 L T PROTEIN (test code = 4423958823) 5.1 g/dL 6.3-8.2 L ALBUMIN (test code = 7884570347) 2.5 g/dL 3.5-5.0 L ALK PHOS (test code = 4316053081) 80 U/L 34-122 Slight hemolysis ALTv (test code = 1742-6) 23 U/L 5-35 AST(SGOT) (test code = 3350817716) 56 U/L 13-40 H Slight hemolysis eGFR (test code = 8613037256) 196.3 mL/min/1.73m2 JASMYN (test code = JASMYN) [...] imaging tests). Lab Interpretation (test code = 31928-6) Abnormal [facility]evilleFOLATE2023-07-23 08:25:59* Test Item Value Reference Range Interpretation Comme nts FOLATE SER (test code = 5297535577) 17.6 ng/mL 3.0-20.0 Biotin has been reported to cause a positive bias, interpret results relative to patient's use of biotin. Lab Interpretation (test code = 36271-1) Normal [facility] BeevilleETHANOL2023-07-22 22:46:37 ALCOHOL<10mg/dL11/10/2022 5:46 PM CDTUTMB LABORATORY SERVICESToxic Greater than or equal to 80 mg/dL. NOTE: Whole blood values are approximately 10% to 15% lower than serum and plasma.[facility] BeevilleCOMP. METABOLIC PANEL (47996)2022-11-10 22:45:51* Test Item Value Reference Range Interpretation Comme nts NA (test code = 1192564248) 145 mmol/L 135-145 K (test code = 3253003358) 3.6 mmol/L 3.5-5.0 CL (test code = 2927929895) 104 mmol/L 98-108 CO2 TOTAL (test code = 8583901619) 29 mmol/L 23-31 AGAP (test code = 1643239480) 12 2-16 BUN (test code = 1158631155) 20 mg/dL 7-23 GLUCOSE (test code = 4071868054) 75 mg/dL 70-110 CREATININE (test code = 4634370555) 0.62 mg/dL 0.50-1.04 TOTAL BILI (test code = 0242311362) 1.6 mg/dL 0.1-1.1 H CALCIUM (test code = 1526007107) 9.8 mg/dL 8.6-10.6 T PROTEIN (test code = 2122699402) 7.5 g/dL 6.3-8.2 ALBUMIN (test code = 9334585558) 4.4 g/dL 3.5-5.0 ALK PHOS (test code = 5838369336) 142 U/L 34-122 H ALTv (test code = 1742-6) 33 U/L 5-35 AST(SGOT) (test code = 6125851799) 65 U/L 13-40 H eGFR (test code = 6268714464) 111.6 mL/min/1.73m2 JASMYN (test code = JASMYN) [...] imaging tests). Lab Interpretation (test code = 20301-9) Abnormal [facility]evilleLIPASE2023-07-22 22:45:51* Test Item Value Reference Range Interpretation Comme nts LIPASE (test code = 4887721543) 1920 U/L 0-220 H Lab Interpretation (test cod e = 59819-4) Abnormal [facility], [id number] 22:44:22* Test Item Value Reference Range Interpretation Comme nts PREG SERUM (test code = 1354194159) Negative JASMYN (test code = JASMYN) Less than 10 IU/L. ?If low titer or ectopic is suspected, resubmit specimen in 48-72 hours. [facility] WITH [id number] 22:37:30* Test Item Value Reference Range Interpretation Comme nts WBC (test code = 6690-2) 5.72 See_Comment [Automated messa ge] The system which generated this result transmitted reference range: 4.30 - 11.10 10*3/?L. The reference range was not used to interpret this result as normal/abnormal. RBC (test code = 789-8) 3.93 See_Comment [Automated messa ge] The system which [...] 32.6 g/dL 31.6-35.1 RDW-SD (test code = 17530-8) 44.8 fL 39.0-49.9 RDW-CV (test code = 788-0) 11.8 % 12.0-15.5 L PLT (test code = 777-3) 255 See_Comment [Automated messa ge] The system which generated this result transmitted reference range: 166 - 358 10*3/?L. The reference range was not used to interpret this result as normal/abnormal. MPV (test code = 54984-8) 9.9 fL 9.5-12.9 NRBC/100 WBC (test code = 0791279615) 0.0 See_Comment [Automated [employer] ssage] The system which generated this result transmitted reference range: 0.0 - 10.0 /100 WBCs. The reference range was not used to interpret this result as normal/abnormal. NRBC x10^3 (test code = 8790069367) See_Comment [Automated messa ge] The system which generated this result transmitted reference range: 10*3/?L. The reference range was not used to interpret this result as normal/abnormal. GRAN MAT (NEUT) % (test code = 770-8) 63.5 % IMM GRAN % (test code = 7041362603) 0.30 % LYMPH % (test code = 736-9) 18.7 % MONO % (test code = 5905-5) 16.3 % EOS % (test code = 713-8) 0.2 % BASO % (test code = 706-2) 1.0 % GRAN MAT x10^3(ANC) (test code = 0384204889) 3.63 10*3/uL 1.88-7.09 IMM GRAN x10^3 (test code = 9426829738) 0.00-0.06 LYMPH x10^3 (test code = 731-0) 1.07 10*3/uL 1.32-3.29 L MONO x10^3 (test code = 742-7) 0.93 10*3/uL 0.33-0.92 H EOS x10^3 (test code = 711-2) 0.03-0.39 L BASO x10^3 (test code = 704-7) 0.06 10*3/uL 0.01-0.07 Lab Interpretation (test code = 51136-6) [facility]59[facility] Test Item Value Reference Range Interpretation Comme nts ALCOHOL (test code = 0399775318) 247 mg/dL JASMYN (test code = JASMYN) <10 Lbpejrnq36-679 Toxic>100 Depression of DIRECTOR PEDIATRIC>400 Fatalities Reported [facility] 07:38:50* Test Item Value Reference Range Interpretation Comme nts LIPASE (test code = 3184855569) 2559 U/L 0-220 H Lab Interpretation (test cod e = 13903-2) [facility]normal [facility]OLIC PANEL (08855)2022-11-06 07:21:05* Test Item Value Reference Range Interpretation Comme nts NA (test code = 0423715846) 137 mmol/L 135-145 K (test code = 9224429886) 3.4 mmol/L 3.5-5.0 L CL (test code = 0105157051) 96 mmol/L 98-108 L CO2 TOTAL (test code = 9682478693) 33 mmol/L 23-31 H AGAP (test code = 9184593045) 8 2-16 BUN (test code = 0616237841) 5 mg/dL 7-23 L GLUCOSE (test code = 7164375375) 97 mg/dL 70-110 CREATININE (test code = 7893638242) 0.50 mg/dL 0.50-1.04 TOTAL BILI (test code = 9606910264) 1.8 mg/dL 0.1-1.1 H CALCIUM (test code = 8137436936) 8.6 mg/dL 8.6-10.6 T PROTEIN (test code = 8412356506) 7.9 g/dL 6.3-8.2 ALBUMIN (test code = 5714953659) 4.2 g/dL 3.5-5.0 ALK PHOS (test code = 4974376102) 204 U/L 34-122 H ALTv (test code = 1742-6) 52 U/L 5-35 H AST(SGOT) (test code = 6505804182) 147 U/L 13-40 H eGFR (test code = 5623700562) 143.0 mL/min/1.73m2 JASMYN (test code = JASMYN) [...] imaging tests). Lab Interpretation (test code = 20928-2) Abnormal [facility] WITH [id number] 07:08:46* Test Item Value Reference Range Interpretation Comme nts WBC (test code = 6690-2) 6.07 See_Comment [Automated [employer]] The system which generated this result transmitted reference range: 4.30 - 11.10 10*3/?L. The reference range was not used to interpret this result as normal/abnormal. RBC (test code = 789-8) 4.32 See_Comment [Automated [employer]] The system which generated this result transmitted [...] 35.0 g/dL 31.6-35.1 RDW-SD (test code = 36481-8) 41.7 fL 39.0-49.9 RDW-CV (test code = 788-0) 11.3 % 12.0-15.5 L PLT (test code = 777-3) 206 See_Comment [Automated messa ge] The system which generated this result transmitted reference range: 166 - 358 10*3/?L. The reference range was not used to interpret this result as normal/abnormal. MPV (test code = 76772-5) 10.1 fL 9.5-12.9 NRBC/100 WBC (test code = 9299044567) 0.0 See_Comment [Automated me ssage] The system which generated this result transmitted reference range: 0.0 - 10.0 /100 WBCs. The reference range was not used to interpret this result as normal/abnormal. NRBC x10^3 (test code = 5633520334) See_Comment [Automated messa ge] The system which generated this result transmitted reference range: 10*3/?L. The reference range was not used to interpret this result as normal/abnormal. GRAN MAT (NEUT) % (test code = 770-8) 68.0 % IMM GRAN % (test code = 8595470684) 0.30 % LYMPH % (test code = 736-9) 19.1 % MONO % (test code = 5905-5) 11.0 % EOS % (test code = 713-8) 0.3 % BASO % (test code = 706-2) 1.3 % GRAN MAT x10^3(ANC) (test code = 5472441901) 4.12 10*3/uL 1.88-7.09 IMM GRAN x10^3 (test code = 6643381773) 0.00-0.06 LYMPH x10^3 (test code = 731-0) 1.16 10*3/uL 1.32-3.29 L MONO x10^3 (test code = 742-7) 0.67 10*3/uL 0.33-0.92 EOS x10^3 (test code = 711-2) 0.03-0.39 L BASO x10^3 (test code = 704-7) 0.08 10*3/uL 0.01-0.07 H Lab Interpretation (test code = 18617-0) Abnormal [facility] [id number] 06:18:00* Test Item Value Reference Range Interpretation Comme nts POCT PREG (test code = 1605) Negative On board controls acceptable with C Line (test code = 3574) Yes Lab Interpretation (test cod e = 31065-2) Normal [facility] [id number] 02:47:00* Test Item Value Reference Range Interpretation Comme nts POCT PREG (test code = 1605) negative Lab Interpretation (test cod e = 07061-5) Normal [facility] WITH [id number] 01:22:18* Test Item Value Reference Range Interpretation [...] 33.2 g/dL 31.6-35.1 RDW-SD (test code = 58812-4) 44.6 fL 39.0-49.9 RDW-CV (test code = 788-0) 12.2 % 12.0-15.5 PLT (test code = 777-3) See_Comment [Automated messa ge] The system which generated this result transmitted reference range: 166 - 358 10*3/?L. The reference range was not used to interpret this result as normal/abnormal. MPV (test code = 78907-8) 9.4 fL 9.5-12.9 L NRBC/100 WBC (test code = 4523249864) See_Comment [Automated me ssage] The system which generated this result transmitted reference range: 0.0 - 10.0 /100 WBCs. The reference range was not used to interpret this result as normal/abnormal. NRBC x10^3 (test code = 6030573361) See_Comment [Automated messa ge] The system which generated this result transmitted reference range: 10*3/?L. The reference range was not used to interpret this result as normal/abnormal. GRAN MAT (NEUT) % (test code = 770-8) 45.9 % IMM GRAN % (test code = 5532724515) 0.50 % LYMPH % (test code = 736-9) 40.2 % MONO % (test code = 5905-5) 10.9 % EOS % (test code = 713-8) 1.4 % BASO % (test code = 706-2) 1.1 % GRAN MAT x10^3(ANC) (test code = 3703992857) 1.69 10*3/uL 1.88-7.09 L IMM GRAN x10^3 (test code = 5566530934) 0.00-0.06 LYMPH x10^3 (test code = 731-0) 1.48 10*3/uL 1.32-3.29 MONO x10^3 (test code = 742-7) 0.40 10*3/uL 0.33-0.92 EOS x10^3 (test code = 711-2) 0.05 10*3/uL 0.03-0.39 BASO x10^3 (test code = 704-7) 0.04 10*3/uL 0.01-0.07 Lab Interpretation (test code = 94978-6) Abnormal [facility] METABOLIC PANEL (NA, K, CL, CO2, GLUCOSE, BUN, CREATININE, CA)2022-04-13 00:58:33* Test Item Value Reference Range Interpretation Comme nts NA (test code = 8999175828) 140 mmol/L 135-145 K (test code = 4021388998) 3.7 mmol/L 3.5-5.0 CL (test code = 4127876320) 98 mmol/L 98-108 CO2 TOTAL (test code = 0255246764) 34 mmol/L 23-31 H AGAP (test code = 9463422793) 2-16 BUN (test code = 1505614935) 11 mg/dL 7-23 GLUCOSE (test code = 8080537991) 79 mg/dL 70-110 CREATININE (test code = 6214374292) 0.62 mg/dL 0.50-1.04 CALCIUM (test code = 0386089052) 8.1 mg/dL 8.6-10.6 L eGFR (test code = 0165419809) mL/min/1.73m2 JASMYN (test code = JASMYN) Association [...] imaging tests). 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 Patient given non ionic IV contrast. 2D Reformatted images acquired sagittally and coronally on the CT workstation using MPR software by dairy technologist. Scanning conducted in the axialplane contiguously from skull base through thoracic inlet. [...] proper. The remainder the teeth appear fairly unremarkab le. No abdominal or genic cyst. No significant sinusitis. No finding intracranially. No compromise of the airway. There is no abnormal masses are seen or pathological nodes. No mucosal abnormality ofconcern identified in the nasopharynx, oropharynx, hypopharynx or larynx. No salivary gland mass isseen. Assessment of the skull base unremarkable. Thyroid gland is unremarkable. Upper lung zones seen are unremarkable. No finding is seen intracranially. No necrotic masses. IMPRESSION: Findings consistent with a dental caries involving tooth in the right-sided mandible involving approximately tooth #30 without abscess or drainable collection. PAGE 1 Signed Report (CONTINUED) Name: ETHEL AMATO : 1990 Age/S: 32 / F [address] Unit #: [id number] Loc: [place] [address] Phys: Shana Ross NP Acct: [id number] Dis Date: Status: REG ER PHONE #: [phone] Exam Date: 04/06/20222116 FAX #: Reason: PAIN EXAMS: CPT: [id number] CT NECK W/CONTRAST 44673 (Continued) at 2136 Reported and signed by: Cristina Arroyo M.D. CC: Shana Ross NP; Arnol Gonsalez MD Technologist:Eduar Medeiros, RT(R)(CT) CTDI: DLP: Trnscb Date/Time: 04/06/2022 (2136) [email or web address] Orig Print D/T: S: 04/06/2022 (2139) PAGE 2 Signed ReportCOMPREHENSIVE METABOLIC PANEL 2022-04-06 20:53:00* Test Item Value Reference Range Interpretation [...] ALKP) 89 Unit/L 45-117 N CBC W/AUTO [id number] 20:25:00* Test Item Value Reference Range Interpretation [...] Interpretation Comme nts NA (test code = 0869527785) 141 mmol/L 135-145 K (test code = 0701015437) 3.9 mmol/L 3.5-5.0 CL (test code = 7692546731) 103 mmol/L 98-108 CO2 TOTAL (test code = 2682465455) 31 mmol/L 23-31 AGAP (test code = 7002319576) 2-16 BUN (test code = 8696421790) 12 mg/dL 7-23 GLUCOSE (test code = 3807184235) 85 mg/dL 70-110 CREATININE (test code = 6264013117) 0.56 mg/dL 0.50-1.04 CALCIUM (test code = 4542336239) 8.3 mg/dL 8.6-10.6 L eGFR (test code = 1713664448) mL/min/1.73m2 JASMYN (test code = JASMYN) Association [...] imaging tests). Lab Interpretation (test code = 98765-7) Abnormal [facility] History and Physical Notes Date/Time Note Provider [...] DAILY, Eduar Echevarria DO, 40 mg at 11/06/231812 nicotine (NICODERM) 21 mg/24 hr patch 1 Patch, 1 Patch, Topical, Q24H, Eduar Echevarria DO, 1 Patch at 11/06/23 181 ondansetron (ZOFRAN (PF)) injection 4 mg, 4 mg, Slow IV Push, Q6HPRN, Eduar Echevarria DO, 4 mg at 11/06/23 180 [START ON 11/07/2023] pantoprazole (PROTONIX) EC tablet [...] of comfort: N/A Code Status: Full [place] [facility] RN was verified Disposition: Await stability, admit IMU for MGMT of ETOH Withdrawl T [facility] 2023-09-19 21:29:46 Images from the original note were not included. 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 [place] [facility] RN was verified during stay William Castorena MD [facility] 2022-11-10 18:43:21 Formatting of this n ote [...] tired on Saturday and was admitted to [facility] on Saturday for a similar presentation. [...] followed up with GI. Was admitted to [facility] on 11/06 for pancreatitis and ETOH [...] Pulmonary & Critical Care Medicine Interventional Pulmonology, [employer] Teacher Doctor # [phone] [phone] [facility] 2022-11-06 05:35:54 Formatting of this n ote is different from the original. 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 RL: 1105 AFC: 42228 ABDOMEN PELVIS W CONTRAST Narrative Ordering physician: [...] infiltration of the liver. RL: 460 AFC: 21910 SSMENT: 1. Acute pancreatitis secondary to alcohol abuse 2. Alcoholic liver disease 3. Macrocytic anemia 4. History of hypertension 5. History of constipation 6. h/o of ADD 7. History of tobacco abuse PLAN: -aggressive IV hydration -IV antibiotics -n.p.o. -pain control -Dials Supervisor regarding alcohol abuse -surgery consultation if pain [...] high risk of morbidity and mortality. [place] [facility] was verified during stay William Castorena MD [facility]
--- NOTE | 2024-04-15 18:56 | RAD REPORT ---
EXAMINATION: ONE VIEW CHEST XR CLINICAL INDICATION: Female, 34 years old.,COUGH TECHNIQUE: Frontal chest projection is submitted. Examination is limited by patient positioning and t echnique. COMPARISON: 03/24/2024 FINDINGS: The lungs are well inflated and focal opacities. Perihilar mild streaky opacities and bronchial wall thickening. No pneumothorax or sizable effusion. The heart is normal in size. Mediastinal contours are unremarkable. IMPRESSION: Findings suggesting reactive airway changes or viral infection. No evidence of focal pneumonia.
[2024-04-15] MEDS ORDERED: DIPHENHYDRAMINE 50 MG/ML VIAL ONE (19:28)
[2024-04-15] MEDS ORDERED: METOCLOPRAMIDE 10 MG/2mL INJ ONE (19:29)
[2024-04-15] MEDS ORDERED: NA CHLORIDE 0.9% 250 ML ONE (19:29)
[2024-04-15 19:31] LABS: Absolute Lymphocytes (CBC) 1.4 K/uL (0.7-4.9); Absolute Monocytes 0.3 K/uL (0.1-1.3); Absolute Neutrophil 3.4 K/uL (1.8-8.0); Basophils % 0.9 % (0-1.3); Eosinophils % 0.5 % (0-4.4); Hemoglobin 14.5 g/dL (12.0-15.0); Lymphocytes % 27.6 % (15.3-44.8); MCH 31.1 pg (27.0-35.0); MCHC 33.7 g/dL (32.0-36.0); MCV 92.4 fL (80-100); MPV 6.8 fL (7.6-11.3); Monocytes % 5.7 % (3.3-12.3); Neutrophils % 65.3 % (41.7-73.7); Nucleated Red Blood Cells % 0.6 % (0-0); Platelets 132 thou/uL (152-406); RBC Red Blood Cell Count 4.66 M/uL (3.86-4.86); Red Cell Distribution Width 18.1 % (12.1-15.2)
--- NOTE | 2024-04-15 19:34 | RAD REPORT ---
EXAM: CT Head Brain Wo Cont HISTORY: CONFUSED COMPARISON: 05/27/2009 TECHNIQUE: Multiple contiguous axial images were obtained for a CT of the brain without contrast. Sag ittal and coronal reformats were performed. One or more of the following dose reduction techniques were used: Automated exposure control, adjus tment of the mA and kV according to patient size, and iterative reconstruction. Unless otherwise specified, incidental findings do not require dedicated imaging follow-up. FINDINGS: No evidence of hydrocephalus, intracranial hemorrhage, or extra-axial fluid collection. The brain is normal in morphology. The calvarium is intact. The visualized paranasal sinuses and mastoid air cells are essentially clear . IMPRESSION: No evidence of acute intracranial abnormality.
[2024-04-15 19:35] LABS: Specific Gravity 1.024 (1.005-1.030); Urine Bacteria <20 /HPF (<20); Urine Bilirubin NEGATIVE (Negative); Urine Blood Trace (Negative); Urine Clarity Extremely Turbid (Clear); Urine Color Yellow (Yellow); Urine Culture Reflex Order REFLEXED; Urine Glucose NEGATIVE (Negative); Urine Ketones 2+ (Negative); Urine Micro Reflex YN NO BILL MICROSCOPIC; Urine Mucus 1+ /HPF (None Seen); Urine Nitrite NEGATIVE (Negative); Urine Protein 2+ (Negative); Urine Urobilinogen 1+ (Normal); Urine WBC 20-50 /HPF (<5); Urine WBC Clump Rare /HPF (None Seen); Urine Yeast (Budding) Trace /HPF (None Seen); Urine pH 6.5 (5.0-7.0)
[2024-04-15 19:42] LABS: Anion Gap 12.2 mEq/L (5.0-15.0); Potassium 3.2 mEq/L (3.5-5.1)
[2024-04-15 19:51] LABS: SARS-CoV-2 Antigen CONTROL BLUE LINE VIS/BG OK; SARS-CoV-2 Antigen Rapid Res Negative (Negative)
--- NOTE | 2024-04-15 20:00 | RAD REPORT ---
EXAMINATION: CT MAXILLOFACIAL WITHOUT CONTRAST CLINICAL INDICATION: [facility] MAIN pain TECHNIQUE: Axial images were obtained through the facial bones and orbits without intravenous contras t. Sagittal and coronal reconstructions were created from the data. One or more of the following dose reduction techniques were used: Automated exposure control, adjustment of the mA and/or kV accor ding to patient size, and/or iterative reconstruction. Unless otherwise specified, incidental findings do not require dedicated imaging follow-up. COMPARISON: 04/11/2022 FINDINGS: SOFT TISSUE: Mild focal soft tissue thickening along the left supraorbital region laterally. BONES: No evidence of fracture, dislocation, or aggressive osseous lesions. No lesion of the visuali zed skull base or calvarium. Dental and periodontal lucencies, with a small periapical collection along the roots of the left seco nd maxillary premolar. ORBITS: The globes are intact. No intraorbital hemorrhage or mass. SINUSES: The paranasal sinuses and tympanomastoid cavities are predominantly clear. IMPRESSION: No acute abnormalities. Mild nonspecific soft tissue thickening along the left supraorbital region, correlate with recent seq uelae of trauma. Dental and periodontal disease as above..
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
[2024-04-15] MEDS ORDERED: SMZ./TMP. 800/160 MG TABLET ONE (20:37)
[2024-04-15 21:06] VITALS: TEMP 98.1
[2024-04-15 21:18] VITALS: BP 113/78; O2SAT 95
== END 2024-04-15 20:44 | disposition home or self-care (01) ==
LOC: ER 18:31
DX: F07.81 Postconcussional syndrome (principal); S00.83XA Contusion of other part of head, initial encounter; R53.81 Other malaise; F90.9 Attention-deficit hyperactivity disorder, unspecified type; N39.0 Urinary tract infection, site not specified; B34.9 Viral infection, unspecified; Y04.2XXA Assault by strike against or bumped into by another person, initial encounter; Y93.9 Activity, unspecified; Y92.9 Unspecified place or not applicable; Z11.52 Encounter for screening for COVID-19
CPT/HCPCS: 87088; 85025; 81001; 87086; 80048; 36415; 87804 ×2; 70450; 70486; 76377; 71045; 96375; 96374; 99284; 87811; J2765; J1200; J7050

== ENCOUNTER 2024-04-24 09:37 | Emergency (ER) | payer OTHER, SELFPAY ==
--- OUTSIDE RECORDS SUMMARY | 2024-04-24 09:50 | XMS REPORT | Continuity of Care Document ---
Author Name Unknown Address [address] [facility] [address] [place] [address] [facility] thconnect Address [address] [facility]. [address] [place] [address] Care Team Providers Care Clamp Operator Name Role Phone LIZ MALAGON Primary Care Physician Unavailab Liz Pimentel Attending Clinician Unavailable CATHIE ROSS Attending Clinician UnavailMICHELLE Long Attending Clinician Unavailable MICHELLE PATIÑO Attending Clinician Unavailable Haroon RECORDS AND INFORMATION MANAGER, Michelle Attending Clinician + [phone] VALERIA HERNANDEZ Attending Clinician Unavaila Valeria Love Attending Clinician + [phone] CLEMENTINA MARROQUIN Attending Clinician Unavailab CLEMENTINA Tang Attending Clinician Unavailab orly Marroquin DOClementina Attending Clinician +[phone] CATHIE ROSS Attending Clinician UnavailCathie Tomas MD Attending Clinician [phone] REJI JOHANSEN Attending Clinician Unavailable REJI JOHANSEN Attending Clinician Unavailable Reji Johansen MD Attending Clinician +[phone] KANDY CHAVEZ Attending Clinician Unavailable KANDY CHAVEZ Attending Clinician Unavailable Kandy Sanchez Attending Clinician +[phone] RTINO ASHFORD Attending Clinician Unavailable TRINO ASHFORD Attending Clinician Unavailable Trino Ashford MD Attending Clinician +[phone] KRISTA CABRERA Attending Clinician Unavailable KRISTA CABRERA Attending Clinician Unavailable Krista Cabrera MD Attending Clinician +[phone] Jonelle Connell DO Attending Clinician +[phone] NBA BALDERAS Attending Clinician Unavailab Lauren Davila MA Attending Clinician Un available DAO GOEL Attending Clinician Unavailable DAO GOEL Attending Clinician Unavailable Alyssia Miranda MD Attending Clinician + SOLO DEVI Attending Clinician Unavailable Eduar Echevarria DO Attending Clinician +[phone] Solo Devi MD Attending Clinician +[phone] JONELLE CONNELL Attending Clinician Unavailable JONELLE CONNELL Attending Clinician Unavailable Zoë Singletary NP Attending Clinician + ZOË SINGLETARY Attending Clinician Unavailable Jose Domínguez Alyssa Attending Clinician [phone] CECILE RANGEL Attending Clinician Unavailable Juan Carlos HASSANP, Cecile Attending Clinician [phone] ELENO OLMSTEAD Attending Clinician Unavailable ELENO OLMSTEAD Attending Clinician Unavailable Heladio HASSANP, Tayaleaine Attending Clinician [phone] Doctor Unassigned, Storla Attending Clinician U navailable RETA LEIJA Attending Clinician Unavailable Unknown, Attending Attending Clinician Unavailab Thelma Hernandez LVN Attending Clinician [phone] WILLIAM CASTOERNA Attending Clinician Unavailyfn Castorena MD, William Nolasco Attending Clinician [phone] Jacob Jacobs Attending Clinician Unavaila PAGE Maria Attending Clinician Unavailable Da STUBBS, Page Attending Clinician [phone] JUAN CHAVEZ Attending Clinician Unavail able Adelina Judge MD Attending Clinician +[phone] Dahiana Robertson MD Attending Clinician [phone] Juan Chavez MD Attending Clinician +[phone] EDUAR ECHEVARRIA Attending Clinician Unavailable NICK BEST Attending Clinician Unavailable Estephania HASSANP, Nick Sanders Attending Clinician +[phone] EDY, RAVINDER Attending Clinician Unavailable Chula NAVARRETE Attending Clinician Unavailable Chula NAVARRETE Attending Clinician Unavailable Lacey Suggs MD Attending Clinician [phone] Oral Surgery, Oral Attending Clinician Unavailab Jose Loredo Attending Clinician Unavailable Jian Salvador Attending Clinician Unavailable BALDEV ALARCON Attending Clinician Unavailable Baldev Milian S Attending Clinician [phone] TREVON CORTES Attending Clinician Unavailab Kerrie Bliss S Attending Clinician +[phone] KERRIE JUDGE Attending Clinician Unavailable Cathie Ross MD Attending Clinician [phone] JACQUELINE SHIN Attending Clinician Unavailable Josafat HASSANP, Jacqueline Attending Clinician +[phone] Edy STUBBS, Afaq Attending Clinician [phone] Pob, Adc Lab Main Attending Clinician Unavailabl e Only, Adc Test Attending Clinician Unavailable Horace RECORDS AND INFORMATION MANAGER, Consuelo Attending Clinician +[phone] EBRAJESH ELLISON Attending Clinician Unavailable Ebrahim RECORDS AND INFORMATION MANAGER, Rania Attending Clinician [phone] Visit, Ang-Rmchp Nurse Attending Clinician Unava ilable Cortes RECORDS AND INFORMATION MANAGER, Trevon R Attending Clinician + [phone] Akinsipe WHCNP, Pratima Shore Attending Clinician + AKINPRATIMA NORRIS Attending Clinician Unavail able SANGITA_MARI_Wallace_G Attending Clinician Unavail able COSME MARIE Attending Clinician Unava ilable Ryan RECORDS AND INFORMATION MANAGER, Cosme Attending Clinician + Nerissa HOFF, Zakiya Sanders Attending Clinician Unavailab le Only, Ang Db Test Attending Clinician Unavailabl e Franki RECORDS AND INFORMATION MANAGER, Miley Attending Clinician [phone] MILEY CHANG Attending Clinician Unavailable YanivJulisa rosales DO Attending Clinician + [phone] Marin HOFF, Tiff Moreno Attending Clinician +[phone] CHAD MORAN Attending Clinician Unavailabl nargis Espana MD, [place] Damian Attending Clinician + [phone] Chad Moran MD Attending Clinician [phone] Marisabel Collins MD Attending Clinician [phone] Provider, [facility] Attending Clinician Un available Kelly Cooley Attending Clinician [phone] Jennifer Sher MD Attending Clinician [phone] Radiology Attending Clinician Unavailable RADIOLOGY Attending Clinician Unavailable JENNIFER SHER Attending Clinician Unavailable KELLY PEREZ Attending Clinician Unavailable Shola RECORDS AND INFORMATION MANAGER, Sabra Attending Clinician [phone] SABRA SORTO Attending Clinician Unavailable Carrington HASSANP, Brandi Casanova Attending Clinician + [phone] Eliezer Watts MD Attending Clinician +[phone] Reji Leahy MD Attending Clinician [phone] CATHIE ROSS Admitting Clinician Unavailabl MICHELLE Hussein Admitting Clinician Unavailable VALERIA HERNANDEZ Admitting Clinician Unavaila KANDY Blackman Admitting Clinician Unavailable TRINO ASHFORD Admitting Clinician Unavailable NBA BALDERAS Admitting Clinician Unavailab EDUAR So Admitting Clinician Unavailable Eduar Echevarria DO Admitting Clinician +[phone] SOLO DEVI Admitting Clinician Unavailable Solo Devi MD Admitting Clinician +[phone] CECILE RANGEL Admitting Clinician Unavailable ELENO OLMSTEAD Admitting Clinician Unavailable WILLIAM CASTORENA Admitting Clinician UnavailWliliam Serrano MD Admitting Clinician [phone] Arnol Gonsalez Admitting Clinician Unavailab DAHIANA Arteaga Admitting Clinician Unavailable Dahiana Robertson MD Admitting Clinician +[phone] NICK BEST Admitting Clinician Unavailable LACEY SUGGS Admitting Clinician Unavailable Cathie Ross MD Admitting Clinician +[phone] _[facility]_Wallace_Charisse Admitting Clinician Unavail able MARISABEL COLLINS Admitting Clinician Unavailable Marisabel Collins MD Admitting Clinician +[phone] BALDEV ALARCON Admitting Clinician Unavailable SABRA SORTO Admitting Clinician Unavailable Payers Payer Name Policy Type Policy Number Effective Date Expirati on Date Source [facility] MEDICA[facility] [id number] 2016 00:00:00 [place] [facility] [id number] 2024 00:00:00 [place] [id number] 2023 00:00:00 [facility] [id number] 2022 00:00:00 2023 00:00:00 [facility] [id number] 2019 00:00:00 [facility] [id number] 2019 00:00:00 [facility] [id number] 2019 00:00:00 [facility] [id number] 2019 00:00:00 [facility] Problems Condition Name Condition Details Condition Category Status Onset Date Resolution Date Last Treatment Date Treating Clinician Comments Source Alcohol withdrawal syndrome without complicati on Alcohol withdrawal syndrome without complicati on Disease Active -17 00:00: 00 [facility] Nausea and vomiting, unspecifie d vomiting type Nausea and vomiting, unspecifie d vomiting type Disease Active 5-30 00:00: 00 [facility] Alcohol withdrawal syndrome, with delirium Alcohol withdrawal syndrome, with delirium Disease Active 1-03 00:00: 00 [facility] E44.0 Moderate protein calorie malnutriti on E44.0 Moderate protein calorie malnutriti on Disease Active 11-12 00:00: 00 [facility] Alcohol abuse Alcohol abuse Disease Active 11-10 00:00: 00 [facility] Flank pain Flank pain Disease Active 18 00:00: 00 [facility] Closed dislocatio n of fifth metacarpal bone of right hand Closed dislocatio n of fifth metacarpal bone of right hand Disease Active 11-08 00:00: 00 Overview: Formattin g of this note might be different from the original. Added automatic ally from request for surgery [id number] [facility] Closed dislocatio n of fifth metacarpal bone of right hand Closed dislocatio n of fifth metacarpal bone of right hand Disease Active 11-08 00:00: 00 Overview: Formattin g of this note might be different from the original. Added automatic ally from request for surgery [id number] [facility] Other general counseling and advice for contracept luna management Other general counseling and advice for contracept luna management Disease Active 3-24 00:00: 00 [facility] Underwazalia t Jesus t Disease Active 07-13 00:00: 00 [facility] History of anorexia nervosa History of anorexia nervosa Disease Active 07-13 00:00: 00 Overview: Formattin g of this note might be different from the original. Reports currently see therapist [facility] Alcohol withdrawal syndrome with perceptual disturbanc e Alcohol withdrawal syndrome with perceptual disturbanc e Disease Active 2020-04 00:00: 00 [facility] Hypokalemi a Hypokalemi a Disease Active 2020-04 00:00: 00 [facility] ETOH abuse ETOH abuse Disease Active 08-16 00:00: 00 [facility] E46 Unspecifie d severe protein-ca evette malnutriti on E46 Unspecifie d severe protein-ca evette malnutriti on Disease Active 08-16 00:00: 00 [facility] H/O hernia repair H/O hernia repair Disease Active 08-21 00:00: 00 [facility] Hiatal hernia Hiatal hernia Disease Active 08-21 00:00: 00 [facility] [id number] History of alcohol abuse Problem [facility] [id number] Tobacco use disorder Problem [facility] [id number] Constipati on, unspecifie d constipati on type Problem [facility] [id number] Allergic rhinitis, unspecifie d seasonalit y, unspecifie d trigger Problem [facility] [id number] Mass of chest wall Problem [facility] Attention deficit hyperactiv ity disorder, predominan tly inattentiv e type Attention deficit hyperactiv ity disorder (ADHD), predominan tly inattentiv e type Problem [facility] [id number] GERD without esophagiti s Problem [facility] [id number] Hypercalce manav Problem [facility] [id number] Iron deficiency anemia, unspecifie d iron deficiency anemia type Problem [facility] [id number] Enlarged thyroid Problem [facility] [id number] Abnormal finding on imaging Problem [facility] Intractabl e nausea and vomiting Intractabl e nausea and vomiting Disease Resolve d 4-27 00:00: 00 2021-07-13 00:00:00 2021-07-13 09:24:51 [facility] Rh negative status during Rh negative status during Disease Resolve d 5 00:00: 00 2021-07-13 00:00:00 2021-07-13 09:25:04 [facility] Supervisio n of high risk , antepartum , first trimester Supervisio n of high risk , antepartum , first trimester Disease Resolve d 08-21 00:00: 00 2021-07-13 00:00:00 2021-07-13 09:25:05 [facility] Missed menses Missed menses Disease Resolve d 08-21 00:00: 00 2021-07-13 00:00:00 2021-07-13 09:25:08 [facility] Multiparit y Multiparit y Disease Resolve d 08-21 00:00: 00 2021-07-13 00:00:00 2021-07-13 09:24:54 [facility] Tobacco use in , unspecifie d trimester Tobacco use in , unspecifie d trimester Disease Resolve d 08-21 00:00: 00 2021-07-13 00:00:00 2021-07-13 09:25:07 [facility] Needs flu shot Needs flu shot Disease Resolve d 5 00:00: 00 2021-07-13 00:00:00 2021-07-13 09:24:56 [facility] History of labor History of labor Disease Resolve d 5 00:00: 00 2021-07-13 00:00:00 2021-07-13 09:24:49 [facility] Allergies, Adverse Reactions, Alerts Allergy Name Allergy Type Status Severity Reaction(s) Onset Date Inactive Date Treating Clinician Comments Source No Known Allergie s DA Active [facility] 2016[facility]:00[facility] [address] [facility] NO KNOWN ALLERGIE S Drug Class Active [facility] [address] Drug allergy Active Muscle Atrophy [facility] Social History Social Habit Start Date Stop Date Quantity Comments Source Gender identity [facility] Sexual orientation U [facility] History of tobacco use Cigarette Smoker [facility] Sex Assigned At [facility] Alcoholic beverage intake 2024-03-30 00:00:00 2024-03-30 00:00:00 Current drinker of alcohol (finding) [facility] History of Social function 2024-01-03 00:00:00 2024-01-03 00:00:00 [facility] Tobacco Comment 2023-11-06 00:00:00 2023-11-06 00:00:00 Currently vapes nicotine [facility] Alcohol Comment 2023-11-06 00:00:00 2023-11-06 00:00:00 last drink 4-5 shots yesterday [facility] Tobacco use and exposure 2023-11-06 00:00:00 2023-11-06 00:00:00 Former smokeless tobacco user [facility] Alcohol intake 2023-04-30 00:00:00 2023-04-30 00:00:00 Current non-drinker of alcohol (finding) [facility] Exposure to SARS-CoV-2 (event) 2022-08-17 00:00:00 2022-08-27 20:37:00 Not sure [facility] Cigarettes smoked current (pack per day) - Reported 2018-11-05 00:00:00 2018-11-05 00:00:00 [facility] Smoking Status Start Date Stop Date Source Ex-smoker 2023-11-06 00:00:00 2023-11-06 00:00:00 U [facility] Current Smoker 2023-06-07 00:00:00 [facility] Medications Ordered Medication Name Filled Medication Name Start Date Stop Date Current Medication? Ordering Clinician Indication Dosage Frequency Signature (SIG) Comments Components Source NaCl 0.9% (NS) IV infusion 1,000 mL 2023-04 08:30: 00 04-05 09:30 :00 No 1000mL at 999 mL/hr, Intravenou s, ONCE, 1 dose, On 04/05/24 at 0230, [facility] acetaminoph en (TYLENOL) tablet 650 mg 2023-04 07:45: 00 04-05 07:42 :00 No 650mg 650 mg, Oral, ONCE, 1 dose, On 04/05/24 at 0145, [facility] iopamidol (ISOVUE 370-500 mL) injection 75 mL 2023-04 07:45: 00 04-05 07:45 :00 No [id number] 75mL 75 mL, Intravenou s, ONCE, 1 dose, On 04/05/24 at 0145, Routine [facility] ondansetron (ZOFRAN (PF)) injection 4 mg 2023-04 05:45: 00 04-05 05:46 :00 No 4mg 4 mg, Slow IV Push, ONCE, 1 dose, On 04/04/24 at 2345, Administer over 2-5 Minutes, 2 mL [facility] NaCl 0.9% (NS) IV infusion 1,000 mL 2023-04 05:32: 00 04-05 07:43 :00 No 1000mL at 999 mL/hr, Intravenou s, ONCE, 1 dose, On 04/04/24 at 2345, [facility] sodium chloride (NS) injection 5 mL 2023-04 05:12: 47 Yes 5mL 5 mL, Intravenou s, PRN, Starting on 04/04/24 at 2312, Until Discontinu ed, Routine, IV line flushing [facility] HYDROcodone -acetaminop hen (NORCO 5) tablet 1 tablet 2023-04 02:30: 00 03-31 01:53 :00 No 1{tbl} 1 tablet, Oral, ONCE, 1 dose, On Sat03/30/24 at 2030, [facility] ondansetron (ZOFRAN-ODT ) disintegrat ing tablet 4 mg 2023-04 01:45: 00 03-31 01:53 :00 No 4mg 4 mg, Oral, ONCE, 1 dose, On Sat03/30/24 at 2000, Routine [facility] ondansetron (ZOFRAN-ODT ) disintegrat ing tablet 4 mg 2023-04 10:15: 00 03-30 09:28 :00 No 4mg 4 mg, Oral, ONCE, 1 dose, On Sat03/30/24 at 0415, Routine [facility] ibuprofen (IBU) tablet 600 mg 2023-04 09:15: 00 03-30 09:24 :00 No 600mg 600 mg, Oral, ONCE, 1 dose, On Sat03/30/24 at 0315, [facility] cephALEXin 500 mg capsule 2023-04 00:00: 00 04-07 05:59 :00 Yes [id number] 500mg Take 1 capsule by mouth in the morning and 1 capsule in the evening. Do all this for 7 days. [facility] methocarbam oL (ROBAXIN) tablet 1,000 mg 2023-04 0-06 19:30: 00 01-25 20:18 :00 No 1000mg 1,000 mg, Oral, ONCE, 1 dose, On 01/26/24 at 1430[facility] 600 mg 2023-04 0-06 19:30: 00 01-25 20:18 :00 No 600mg 600 mg, Oral, ONCE, 1 dose, On 01/26/24 at 1430, [facility] methocarbam oL 750 mg tablet 2023-04 0-06 00:00: 00 Yes [id number] 750mg Take 1 tablet by mouth 3 (three) times daily as needed (body aches). [facility] fentanyl PF (SUBLIMAZE (PF)) injection 50 mcg 12-27 02:00: 00 12-27 02:00 :00 No 50ug 50 mcg, Intramuscu lar, ONCE, 1 dose, On Sat12/27/23 at 2100, Routine [facility] HYDROcodone -acetaminop hen (NORCO 5) tablet 1 tablet 12-26 21:15: 00 12-26 21:55 :00 No 1{tbl} 1 tablet, Oral, ONCE, 1 dose, On Sat12/27/23 at 1615, CECILIA [facility] HYDROcodone -acetaminop hen (NORCO) 10-325 mg tablet 1 tablet 12-15 12:15: 00 12-15 11:26 :00 No 1{tbl} 1 tablet, Oral, ONCE NOW, 1 dose, On Sat12/16/23 at 0715, Routine [facility] traMADoL (ULTRAM) 50 mg tablet 12-15 00:00: 00 Yes [id number] 50mg Take 1 tablet by mouth every 6 (six) hours as needed for Pain (scale 7-10). Indication s: acute pain [facility] magnesium sulfate in water 2 gram/50 mL (4 %) infusion 2 g 12-07 21:45: 00 12-07 21:30 :00 No 2g 2 g, IV Piggyback, Administer over 60 Minutes, ONCE, 1 dose, On Sat12/08/23 at 1645, CECILIA [facility] thiamine (VITAMIN B1) 100 mg in NaCl 0.9% (NS) piggyback 12-07 20:30: 00 12-07 21:01 :00 No 100mg IV Piggyback, ONCE, 1 dose, On Sat12/08/23 at 1530, 50 mL [facility] LORazepam (ATIVAN) tablet 1 mg 12-07 20:00: 00 12-07 20:03 :00 No 1mg 1 mg, Oral, ONCE, 1 dose, On Sat12/08/23 at 1500, CECILIA [facility] magnesium oxide 400 mg (241.3 mg magnesium) tablet 12-07 00:00: 00 Yes [id number] 800mg Take 2 tablets by mouth in the morning. [facility] chlordiazeP OXIDE 25 mg capsule 12-07 00:00: 00 Yes [id number] 100mg Take 4 capsules by mouth in the morning and 4 capsules at noon and 4 capsules in the evening. [facility] diphenhydrA MINE (BENADRYL) tablet 25 mg 12-05 08:30: 00 12-05 08:21 :00 No 25mg 25 mg, Oral, ONCE, 1 dose, On Sat12/06/23 at 0330, [facility] LORazepam (ATIVAN) tablet 1 mg 12-05 07:00: 00 12-05 06:58 :00 No 1mg 1 mg, Oral, ONCE, 1 dose, On Sat12/06/23 at 0200, [facility] LORazepam (ATIVAN) tablet 1 mg 12-04 05:00: 00 12-04 05:05 :00 No 1mg 1 mg, Oral, ONCE, 1 dose, On Sat12/05/23 at 0000, [facility] NaCl 0.9% (NS) bolus infusion 1,000 mL 12-04 04:45: 00 12-04 04:50 :00 No 1000mL at 999 mL/hr, 1,000 mL, IV Infusion, ONCE, 1 dose, On Sat12/04/23 at 2345, [facility] Lidocaine (LIDOCARE) 4 % patch 1 Patch 11-21 18:15: 00 11-22 06:14 :00 No 1{patch } 1 Patch, Topical, Administer over 12 Hours, ONCE, 1 dose, On Sat11/22/23 at 1315, Routine [facility] NaCl 0.9% (NS) bolus infusion 1,000 mL 11-21 18:15: 00 11-21 19:21 :00 No 1000mL at 999 mL/hr, 1,000 mL, IV Infusion, ONCE, 1 dose, On Sat11/22/23 at 1315, [facility] ketorolac (TORADOL) injection 30 mg 11-21 17:40: 00 11-21 17:52 :00 No 30mg 30 mg, Slow IV Push, ONCE, 1 dose, On Sat11/22/23 at 1245, Routine [facility] proCHLORper azine (COMPAZINE) 10 mg in NaCl 0.9% (NS) piggyback 11-21 17:30: 00 11-21 18:24 :00 No 10mg 10 mg, IV Piggyback, at 100 mL/hr Administer over 30 Minutes, ONCE, 1 dose, On Sat11/22/23 at 1230, Routine [facility] methocarbam oL (ROBAXIN) tablet 1,000 mg 11-21 17:30: 00 11-21 17:56 :00 No 1000mg 1,000 mg, Oral, ONCE, 1 dose, On Sat11/22/23 at 1230, CECILIA [facility] metoprolol tartrate (LOPRESSOR) tablet 25 mg 11-08 14:15: 00 Yes 25mg 25 mg, Oral, BID, First dose on 11/09/23 at 0915, Until Discontinu ed, Routine [facility] oxazepam (SERAX) capsule 15 mg 11-08 06:01: 04 11-09 06:14 :00 No 15mg 15 mg, Oral, Q12H TAPER, 2 doses, First dose on 11/09/23 at 0115, Last dose on Sat11/09/23 at 1315, Routine [facility] metoprolol tartrate 25 mg tablet 11-08 00:00: 00 12-09 04:59 :00 No [id number] 25mg Take 1 tablet by mouth in the morning and 1 tablet in the evening. Do all this for 30 days. [facility] KCL (KLOR-CON M20) tablet 20 mEq 11-07 23:00: 00 11-07 22:58 :00 No 20meq 20 mEq, Oral, ONCE, 1 dose, On Sat11/08/23 at 1800, Routine [facility] diphenhydrA MINE (BENADRYL) tablet 25 mg 11-07 13:03: 50 Yes 25mg 25 mg, Oral, Q6HPRN, Starting on Sat11/08/23 at 0803, Until Discontinu ed, Routine, Itching [facility] phosphorus (K PHOS NEUTRAL) tablet 1 tablet 11-07 13:00: 00 11-09 12:59 :00 No 250mg 1 tablet (250 mg), Oral, BID, 4 doses, First dose on Sat11/08/23 at 0800, Last dose on Sat11/09/23 at 2000, Routine [facility] magnesium sulfate in water 2 gram/50 mL (4 %) infusion 2 g 11-07 13:00: 00 11-07 14:34 :00 No 2g 2 g, IV Piggyback, Administer over 60 Minutes, ONCE, 1 dose, On Sat11/08/23 at 0800, Routine [facility] potassium phosphate 30 mmol in NaCl 0.9% (NS) 500 mL piggyback 11-07 13:00: 00 11-07 20:30 :00 No 30mmol 30 mmol, IV Piggyback, ONCE, 1 dose, On Sat11/08/23 at 0800, 500 mL [facility] HYDROmorpho ne (DILAUDID) injection 0.5 mg 11-07 10:45: 00 11-07 10:31 :00 No .5mg 0.5 mg, Slow IV Push, ONCE, 1 dose, On Sat11/08/23 at 0545, Routine, Is this medication approved by a Faculty level provider? Yes, reconnaissance crewmember approving Restricted medication : WILLIAM CASTORENA [facility] traMADoL (ULTRAM) tablet 50 mg 11-07 01:50: 29 Yes 50mg 50 mg, Oral, Q6HPRN, Starting on Sat11/07/23 at 2050, Until Discontinu ed, Routine, Pain (scale 4-6) [facility] FENTanyl PF (SUBLIMAZE (PF)) injection 25 mcg 11-07 01:29: 16 Yes 25ug 25 mcg, Slow IV Push, Q4HPRN, Starting on Sat11/07/23 at 2029, Until Discontinu ed, Routine, Pain (scale 7-10) [facility] NaCl 0.9% (NS) IV infusion 1,000 mL 11-07 00:30: 00 11-07 13:51 :28 No 1000mL at 75 mL/hr, IV Infusion, CONTINUOUS , Starting on Sat11/07/23 at 1930, Until Sat11/08/23 at 0851, [facility] 15 mmol in NaCl 0.9% (NS) 250 mL piggyback 11-06 14:45: 00 11-06 19:18 :00 No 15mmol 15 mmol, IV Piggyback, ONCE, 1 dose, On Sat11/07/23 at 0945, Administer over 4 Hours, 250 mL [facility] thiamine mononitrate (VITAMIN B-1 (MONONITRAT E)) tablet 100 mg 11-06 14:00: 00 Yes 100mg 100 mg, Oral, DAILY, First dose on Sat11/07/23 at 0900, Until Discontinu ed, Routine [facility] foLIC acid (FOLATE) tablet 1 mg 11-06 14:00: 00 Yes 1mg 1 mg, Oral, DAILY, First dose on Sat11/07/23 at 0900, Until Discontinu ed, Routine [facility] pantoprazol e (PROTONIX) EC tablet 40 mg 11-06 13:00: 00 Yes 40mg 40 mg, Oral, BID, First dose on Sat11/07/23 at 0800, Until Discontinu ed, [facility] sucralf[facility] (CARAFATE) tablet 1 g 11-06 02:00: 00 Yes 1g 1 g, Oral, AC+HS, First dose on Sat11/06/23 at 2100, Until Discontinu ed, Routine [facility] magnesium sulfate in water 2 gram/50 mL (4 %) infusion 2 g 11-06 01:30: 00 11-06 02:48 :00 No 2g 2 g, IV Piggyback, Administer over 60 Minutes, ONCE, 1 dose, On Sat11/06/23 at 2030, CECILIA [facility] oxazepam (SERAX) capsule 15 mg 11-06 00:01: 04 Yes 15mg 15 mg, Oral, Q4HPRN, Starting on Sat11/06/23 at 1901, Until Discontinu ed, Routine, Only while awake for DBP equal to or greater than 100, HR equal to or greater than 100. [facility] nicotine (NICODERM) 21 mg/24 hr patch 1 Patch 11-06 00:00: 00 Yes 1{patch } 1 Patch, Topical, Administer over 24 Hours, Q24H, First dose on Sat11/06/23 at 1900, Until Discontinu ed, Routine [facility] pantoprazol e (PROTONIX) injection 40 mg 11-05 23:45: 00 11-05 23:08 :00 No 40mg 40 mg, Slow IV Push, ONCE, 1 dose, On Sat11/06/23 at 1845 [facility] ondansetron (ZOFRAN (PF)) injection 4 mg 11-05 22:47: 22 Yes 4mg 4 mg, Slow IV Push, Q6HPRN, Nausea and Vomiting (N/V), Starting on Sat11/06/23 at 1747, Doses of ondansetro n 16 mg and above need to be administer ed via IV piggyback. For Dose >=24mg ECG monitoring is advisable. [facility] enoxaparin (LOVENOX) injection 40 mg 11-05 22:00: 00 Yes 40mg 40 mg, Subcutaneo us, DAILY, First dose on Sat11/06/23 at 1700, Until Discontinu ed, Routine [facility] D5W 0.45% NaCl (1/2NS) 1 L + KCL 20 mEq 11-05 20:45: 00 11-06 13:45 :29 No Intravenou s, at 125 mL/hr, CONTINUOUS , Starting on Sat11/06/23 at 1545, Until [place] 11/07/23 at 0845, [facility] NaCl 0.9% (NS) bolus infusion 1,000 mL 11-05 20:00: 00 11-05 20:14 :00 No 1000mL at 999 mL/hr, 1,000 mL, IV Infusion, ONCE, 1 dose, On Sat11/06/23 at 1500, STAT [facility] thiamine (VITAMIN B1) injection 100 mg 11-05 18:45: 00 11-05 18:55 :00 No 100mg 100 mg, Slow IV Push, ONCE, 1 dose, On Sat11/06/23 at 1345, [facility] ondansetron (ZOFRAN (PF)) injection 4 mg 10-27 14:45: 00 10-27 14:42 :00 No 4mg 4 mg, Slow IV Push, ONCE, 1 dose, On Sat10/28/23 at 0945, [facility] NaCl 0.9% (NS) IV infusion 1,000 mL 10-27 09:45: 00 Yes 1000mL at 150 mL/hr, Intravenou s, CONTINUOUS , Starting on Sat10/28/23 at 0445, Until Discontinu ed, Routine [facility] ondansetron (ZOFRAN-ODT ) disintegrat ing tablet 4 mg 10-18 17:00: 00 10-18 16:15 :00 No 4mg 4 mg, Oral, ONCE, 1 dose, On 10/19/23 at 1200, Routine [facility] hydrOXYzine (ATARAX) tablet 25 mg 10-18 16:00: 00 10-18 16:15 :00 No 25mg 25 mg, Oral, ONCE, 1 dose, On 10/19/23 at 1100, [facility] ondansetron 4 mg disintegrat ing tablet 10-18 00:00: 00 Yes [id number] 4mg Take 1 tablet by mouth every 8 (eight) hours as needed for Nausea and Vomiting (N/V). [facility] hydrOXYzine 25 mg tablet 10-18 00:00: 00 Yes [id number] 25mg Take 1 tablet by mouth every 6 (six) hours as needed for Anxiety. [facility] neomycin-po lymyxin-pra moxine 3.5-10,000- 10 mg-unit-mg/ gram cream 10-17 00:00: 00 Yes [id number] Apply to area(s) 2 (two) times daily. [facility] cholecalcif catherine, vitamin D3, 25 mcg (1,000 unit) tablet 09-21 00:00: 00 10-22 04:59 :00 No [id number] 1000U Take 1 tablet by mouth in the morning for 30 days. [facility] foLIC acid 1 mg tablet 09-21 00:00: 00 10-22 04:59 :00 No [id number] 1mg Take 1 tablet by mouth in the morning for 30 days. [facility] KCL (KLOR-CON M20) tablet 40 mEq 09-20 14:30: 00 09-20 14:15 :00 No 40meq 40 mEq, Oral, ONCE, 1 dose, On 09/21/23 at 0930, Routine [facility] lisdexamfet amine (VYVANSE) 60 mg capsule 09-20 12:06: 59 Yes 60mg Take 1 capsule by mouth every morning. [facility] oxazepam (SERAX) capsule 15 mg [...] 09/22/23 at 1230, Routine [Order 2 End] [facility] benzonatate 100 mg capsule 09-20 00:00: 00 10-01 04:59 :00 No [id number] 100mg Take 1 capsule by mouth every 8 (eight) hours as needed for Cough for up to 10 days. [facility] zinc sulfate 50 mg zinc (220 mg) capsule 09-20 00:00: 00 10-01 04:59 :00 No [id number] 50mg Take 1 capsule by mouth in the morning and 1 capsule at noon and 1 capsule in the evening. Do all this for 10 days. [facility] amoxicillin -clavulanat e 875-125 mg per tablet 09-20 00:00: 00 09-26 04:59 :00 No [id number] 1{tbl} Take 1 tablet by mouth in the morning and 1 tablet in the evening. Do all this for 5 days. [facility] dexAMETHaso ne 4 mg tablet 09-20 00:00: 00 09-26 04:59 :00 No [id number] 6mg Take 1.5 tablets by mouth every 12 (twelve) hours for 5 days. [facility] cefTRIAXone (ROCEPHIN) 1,000 mg in NaCl 0.9% (NS) 100 mL MINI-BAG 09-19 23:30: 00 09-24 23:29 :00 No 1000mg 1,000 mg, IV Piggyback, Q24H ABX, 5 doses, First dose on Sat09/20/23 at 1830, Last dose on Sat09/24/23 at 1830, Administer over 30 Minutes, 100 mL, Reason for Anti-Infec tive: Documented Infection, Documented Infection Site: Respirator y, Duration of Therapy: 7 days [facility] cholecalcif catherine (vitamin D3) tablet 1,000 Units 09-19 14:00: 00 Yes 1000U 1,000 Units, Oral, DAILY, First dose on Sat09/20/23 at 0900, Until Discontinu ed, Routine [facility] metoprolol succinate XL (TOPROL XL) tablet 25 mg 09-19 14:00: 00 Yes 25mg 25 mg, Oral, DAILY, First dose on Sat09/20/23 at 0900, Until Discontinu ed, Routine [facility] foLIC acid (FOLATE) tablet 1 mg 09-19 14:00: 00 Yes 1mg 1 mg, Oral, DAILY, First dose on Sat09/20/23 at 0900, Until Discontinu ed, Routine [facility] enoxaparin (LOVENOX) injection 40 mg 09-19 14:00: 00 Yes 40mg 40 mg, Subcutaneo us, DAILY, First dose on Sat09/20/23 at 0900, Until Discontinu ed, Routine [facility] zinc sulfate (ORAZINC) capsule 50 mg 09-19 13:00: 00 Yes 50mg 50 mg, Oral, TID, First dose on Sat09/20/23 at 0800, Until Discontinu ed, Routine [facility] ascorbic acid (vitamin C) (VITAMIN C) tablet 500 mg 09-19 13:00: 00 Yes 500mg 500 mg, Oral, BID, First dose on Sat09/20/23 at 0800, Until Discontinu ed, Routine [facility] ipratropium -albuteroL (DUONEB) 0.5 mg-3 mg(2.5 mg base)/3 mL nebulizer solution 3 mL 09-19 13:00: 00 09-19 14:58 :45 No 3mL 3 mL, Inhalation , QID, First dose on Sat09/20/23 at 0800, Until Discontinu ed, Routine [facility] ipratropium -albuteroL (DUONEB) 0.5 mg-3 mg(2.5 mg base)/3 mL nebulizer solution 3 mL 09-19 12:32: 50 Yes 3mL 3 mL, Inhalation , QIDPRN, Starting on Sat09/20/23 at 0732, Until Discontinu ed, Routine, Wheezing, Shortness of Breath, Bronchospa sm, Chest tightness [facility] azithromyci n (ZITHROMAX) 500 mg [...] Respirator y, Duration of therapy: 5 days [facility] dexamethaso ne sod phos PF injection 6 mg 09-19 03:00: 00 Yes 6mg 6 mg, Intravenou s, DAILY, First dose (after last modificati on) on [place] 09/19/23 at 2200, Until Discontinu ed, 1 mL [facility] benzocaine- menthoL (CEPACOL SORE THROAT (VENITA-MEN)) lozenge 1 Lozenge 09-19 02:44: 39 Yes 1{lozen ge} 1 Lozenge, Oral, Q4HPRN, Starting on [place] 09/19/23 at 2144, Until Discontinu ed, Routine, Sore throat [facility] benzonatate (TESSALON PERLES) capsule 100 mg 09-19 02:44: 33 Yes 100mg 100 mg, Oral, Q8HPRN, Starting on Sat09/19/23 at 2144, Until Discontinu ed, Routine, Cough [facility] codeine-gua ifenesin (ROBITUSSIN AC) 10-100 mg/5 mL oral solution 5 mL 09-19 02:44: 22 Yes 5mL 5 mL, Oral, Q6HPRN, Starting on [place] 09/19/23 at 2144, Until Discontinu ed, Routine, Cough [facility] NaCl 0.9% (NS) IV infusion 1,000 mL 09-18 23:15: 00 09-19 22:10 :01 No 1000mL at 125 mL/hr, IV Infusion, CONTINUOUS , Starting on Sat09/19/23 at 1815, Until Sat09/20/23 at 1710, Routine [facility] oxazepam (SERAX) capsule 15 mg 09-18 23:05: 39 Yes 15mg 15 mg, Oral, Q4HPRN, Starting on Sat09/19/23 at 1805, Until Discontinu ed, Routine, Only while awake for DBP equal to or greater than 100, HR equal to or greater than 100. [facility] ondansetron (ZOFRAN (PF)) injection 4 mg 09-18 23:05: 04 Yes 4mg [facility] HYDROcodone -acetaminop hen (NORCO 5) 5-325 mg tablet 1 tablet 09-18 23:04: 59 09-20 23:03 :59 No 1{tbl} 1 tablet, Oral, Q6HPRN, Starting on Sat09/19/23 at 1804, Until 09/21/23 at 1803, Routine, Pain (scale 4-6) [facility] acetaminoph en (TYLENOL) tablet 650 mg 09-18 23:04: 44 Yes 650mg 650 mg, Oral, Q6HPRN, Starting on Sat09/19/23 at 1804, Until Discontinu ed, Routine, Pain (scale 1-3) [facility] ondansetron (ZOFRAN (PF)) injection 4 mg 09-18 21:15: 00 09-18 20:11 :00 No 4mg 4 mg, Slow IV Push, ONCE, 1 dose, On Sat09/19/23 at 1615, CECILIA [facility] acetaminoph en (TYLENOL) tablet 1,000 mg 09-18 21:00: 00 09-18 20:58 :00 No 1000mg 1,000 mg, Oral, ONCE, 1 dose, On Sat09/19/23 at 1600, Routine [facility] NaCl 0.9% (NS) bolus infusion 1,000 mL 09-18 19:45: 00 09-18 20:11 :00 No 1000mL at 999 mL/hr, 1,000 mL, IV Infusion, ONCE, 1 dose, On [place] 09/19/23 at 1445, STAT [facility] magnesium sulfate in water 2 gram/50 mL (4 %) infusion 2 g 09-18 18:00: 00 09-18 18:21 :00 No 2g 2 g, IV Piggyback, Administer over 60 Minutes, ONCE, 1 dose, On [place] 09/19/23 at 1300, Routine [facility] NaCl 0.9% (NS) bolus infusion 1,566 mL 09-18 18:00: 00 09-18 20:11 :00 No 30mL/kg at 999 mL/hr, 1,566 mL (30 mL/kg ?52.2 kg), IV Infusion, ONCE, 1 dose, On [place] 09/19/23 at 1300, STAT [facility] ondansetron (ZOFRAN (PF)) injection 4 mg 09-18 18:00: 00 09-18 17:05 :00 No 4mg 4 mg, Slow IV Push, ONCE, 1 dose, On [place] 09/19/23 at 1300, CECILIA [facility] LORazepam (ATIVAN) injection 1 mg 09-18 17:00: 00 09-18 17:05 :00 No 1mg 1 mg, Slow IV Push, ONCE, 1 dose, On [place] 09/19/23 at 1200, STAT [facility] NaCl 0.9% (NS) bolus infusion 1,000 mL 09-14 17:30: 00 09-14 18:27 :00 No 1000mL at 999 mL/hr, 1,000 mL, IV Infusion, ONCE, 1 dose, On [facility] 09/15/23 at 1230, CECILIA [facility] iopamidol (ISOVUE 370-500 mL) injection 80 mL 09-14 17:15: 00 09-14 17:30 :00 No [id number] 80mL 80 mL, Intravenou s, ONCE, 1 dose, On [facility] 09/15/23 at 1230, Routine [facility] NaCl 0.9% (NS) bolus infusion 1,000 mL 09-13 00:15: 00 09-13 01:01 :00 No [id number] 1000mL at 999 mL/hr, 1,000 mL, IV Infusion, ONCE, 1 dose, On Sat09/13/23 at 1915, [facility] acetaminoph en (TYLENOL) tablet 650 mg 09-13 00:15: 00 09-12 23:34 :00 No [id number] 650mg 650 mg, Oral, ONCE, 1 dose, On Sat09/13/23 at 1915, [facility] Vyvanse 60 MG Vyvanse 60 MG [...] 5 % cream 1-10 00:00: 00 Yes [id number] Apply cream from neck down, leave on for 8-14 h, repeat in 2 wks [facility] permethrin 5 % cream 04-30 00:00: 00 Yes [id number] As directed. [facility] hydrOXYzine 25 mg tablet 04-30 00:00: 00 05-06 05:59 :00 No [id number] 25mg Take 1 tablet by mouth 3 (three) times daily as needed for Itching for up to 5 days. [facility] foLIC acid 1 mg tablet 04-28 00:00: 00 05-29 05:59 :00 No [id number] 1mg Take 1 tablet by mouth in the morning for 30 days. [facility] thiamine 100 mg tablet 04-28 00:00: 00 05-29 05:59 :00 No [id number] 100mg Take 1 tablet by mouth in the morning for 30 days. [facility] oxazepam (SERAX) capsule 10 mg 04-27 19:15: 00 04-28 19:14 :00 No 10mg 10 mg, Oral, Q12H TAPER, 2 doses, First dose (after last modificati on) on 04/27/23 at 1315, Last dose on 04/28/23 at 0115, Routine [facility] KCL (KLOR-CON M20) tablet 40 mEq 04-27 15:00: 00 Yes 40meq 40 mEq, Oral, DAILY, First dose on 04/27/23 at 0900, Until Discontinu ed, Routine [facility] metoprolol succinate XL (TOPROL XL) tablet 12.5 mg 04-27 15:00: 00 Yes 12.5mg 12.5 mg, Oral, DAILY, First dose on 04/27/23 at 0900, Until Discontinu ed, Routine [facility] magnesium oxide (MAG-OX 400) tablet 800 mg 04-27 15:00: 00 04-30 14:59 :00 No 800mg 800 mg, Oral, DAILY, 3 doses, First dose on Sat 6/24 at 0900, Last dose on Sat04/29/23 at 0900, Routine [facility] lisdexamfet amine (VYVANSE) 60 mg capsule 04-27 09:58: 30 Yes 60mg Take 1 capsule by mouth every morning. [facility] LISINOPRIL ORAL 04-27 08:55: 37 04-27 00:00 :00 No Take by mouth. [facility] KCL 20 mEq tablet 04-27 00:00: 00 05-05 05:59 :00 No [id number] 20meq Take 1 tablet by mouth in the morning for 7 days. [facility] magnesium oxide 420 mg Tab 04-27 00:00: 00 05-05 05:59 :00 No [id number] 400mg Take 400 mg by mouth in the morning for 7 days. [facility] NaCl 0.9% (NS) IV infusion 1,000 mL 04-26 20:00: 00 Yes 1000mL at 150 mL/hr, IV Infusion, CONTINUOUS , Starting on Sat04/26/23 at 1400, Until Discontinu ed, Routine
Resume after banana bag is completed< br> [facility] metoprolol tartrate (LOPRESSOR) tablet 12.5 mg 04-26 20:00: 00 04-27 14:52 :31 No 12.5mg 12.5 mg, Oral, BID, First dose on Sat04/26/23 at 1400, Until Discontinu ed, [facility] 4 gram/50 mL (8 %) IV Piggyback 4 g 04-26 15:15: 00 04-26 20:54 :00 No 4g 4 g, IV Piggyback, at 25 mL/hr Administer over 120 Minutes, ONCE, 1 dose, On Sat04/26/23 at 0915, CECILIA [facility] potassium chloride in water 10 mEq/100 mL RTU 10 mEq 04-26 14:45: 00 2024- 01-05 18:54 :00 No 10meq 10 mEq, IV Piggyback, Q1H, 4 doses, First dose on Sat04/26/23 at 0845, Last dose on Sat04/26/23 at 1100, Administer over 60 Minutes, 100 mL [facility] diazePAM (VALIUM) injection 10 mg 04-25 16:47: 50 Yes 10mg 10 mg, Intravenou s, Q6HPRN, Starting on Sat04/25/23 at 1047, Until Discontinu ed, Routine, Agitation, Withdrawl [facility] foLIC acid (FOLATE) tablet 1 mg 04-25 15:00: 00 Yes 1mg 1 mg, Oral, DAILY, First dose on Sat04/25/23 at 0900, Until Discontinu ed, Routine [facility] thiamine (VITAMIN B1) tablet 100 mg 04-25 15:00: 00 Yes 100mg 100 mg, Oral, DAILY, First dose on Sat04/25/23 at 0900, Until Discontinu ed, Routine [facility] enoxaparin (LOVENOX) injection 40 mg 04-25 15:00: 00 Yes 40mg 40 mg, Subcutaneo us, DAILY, First dose on Sat04/25/23 at 0900, Until Discontinu ed, Routine [facility] oxazepam (SERAX) capsule 15 mg 04-25 13:10: 47 Yes 15mg 15 mg, Oral, Q4HPRN, Starting on Sat04/25/23 at 0710, Until Discontinu ed, Routine, Only while awake for DBP equal to or greater than 100, HR equal to or greater than 100. [facility] potassium chloride in water 10 mEq/100 mL RTU 10 mEq 04-25 13:00: 00 04-25 19:57 :00 No 10meq 10 mEq, IV Piggyback, Q1H, 6 doses, First dose on Sat04/25/23 at 0700, Last dose on Sat04/25/23 at 1200, Administer over 60 Minutes, 100 mL [facility] dexMEDEtomi dine 200 mcg in [...] at maximum allowed dose, contact prescriber .
[facility] thiamine (VITAMIN B1) 100 mg, foLIC acid (FOLATE) 1 mg, multivitami n adult (INFUVITE ADULT) 3,300 unit- 150 mcg/10 mL 10 mL in D5W 0.45% NaCl (1/2NS) IV Solution 04-25 06:15: 00 04-25 06:51 :35 No IV Infusion, at 150 mL/hr, ONCE, 1 dose, On [place] 04/25/23 at 0015, 1,000 mL [facility] NaCl 0.9% (NS) IV infusion 1,000 mL 04-25 05:30: 00 04-26 19:52 :00 No 1000mL at 125 mL/hr, IV Infusion, CONTINUOUS , Starting on Sat04/24/23 at 2330, Until Sat04/26/23 at 1352, Routine
Resume after banana bag is completed< br> [facility] NaCl 0.9% (NS) IV infusion 1,000 mL 04-25 03:45: 00 04-25 05:27 :44 No 1000mL at 125 mL/hr, IV Infusion, CONTINUOUS , Starting on Sat04/24/23 at 2145, Until Sat04/24/23 at 2327, Routine [facility] haloperidol lactate (HALDOL) injection 2 mg 04-25 03:42: 43 Yes 2mg 2 mg, Slow IV Push, Q6HPRN, Starting on Sat04/24/23 at 2142, Until Discontinu ed, Routine, Sedation, Psychosis [facility] ondansetron (ZOFRAN (PF)) injection 4 mg 04-25 03:41: 50 Yes 4mg 4 mg, Slow IV Push, Q4HPRN, Starting on Sat04/24/23 at 2141, Until Discontinu ed, Routine, Nausea and Vomiting (N/V) [facility] acetaminoph en (TYLENOL) tablet 650 mg 04-25 03:41: 07 Yes 650mg 650 mg, Oral, Q6HPRN, Starting on Sat04/24/23 at 2141, Until Discontinu ed, Routine, Pain (scale 1-3) [facility] cefTRIAXone (ROCEPHIN) 1,000 mg in NaCl 0.9% (NS) 100 mL MINI-BAG 04-25 02:45: 00 04-25 03:06 :00 No 1000mg 1,000 mg, IV Piggyback, ONCE, 1 dose, On Sat04/24/23 at 2045, Administer over 30 Minutes, 100 mL
Reas on for Anti-Infec tive: Documented Infection< br>Documen colleen Infection Site: Urine
D uration of Therapy: Other (see Comments) [facility] iopamidol (ISOVUE 370-500 mL) injection 85 mL 04-25 02:15: 00 04-25 02:15 :00 No 85mL 85 mL, Intravenou s, ONCE, 1 dose, On Sat04/24/23 at 2015, Routine [facility] NaCl 0.9% (NS) bolus infusion 1,000 mL 04-24 23:15: 00 04-25 02:47 :00 No 1000mL at 999 mL/hr, 1,000 mL, IV Infusion, ONCE, 1 dose, On Sat04/24/23 at 1715, STAT [facility] diazePAM (VALIUM) tablet 2.5 mg 04-24 23:15: 00 04-24 23:58 :00 No 2.5mg 2.5 mg, Oral, ONCE, 1 dose, On Sat04/24/23 at 1715, [facility] 2 gram/50 mL (4 %) infusion 2 g 04-24 23:00: 00 04-24 23:58 :00 No 2g 2 g, IV Piggyback, Administer over 60 Minutes, ONCE, 1 dose, On Sat04/24/23 at 1700, [facility] thiamine (VITAMIN B1) injection 100 mg 04-24 22:15: 00 04-24 22:58 :00 No 100mg 100 mg, Slow IV Push, ONCE, 1 dose, On Sat04/24/23 at 1615, [facility] Vyvanse 60 MG Vyvanse 60 MG [...] 12-12 09:09: 49 Yes Take by mouth. [facility] lisdexamfet amine (VYVANSE) 60 mg capsule 12-12 09:09: 24 Yes 60mg Take 1 capsule by mouth every morning. [facility] oxazepam (SERAX) capsule 15 mg 11-14 08:09: 00 11-15 08:14 :00 No 15mg 15 mg, Oral, Q12H TAPER, 2 doses, First dose on Sat11/14/22 at 0315, Last dose on Sat11/14/22 at 1515, Routine [facility] lisdexamfet amine (VYVANSE) 60 mg capsule 11-13 18:24: 40 Yes 60mg Take 1 capsule by mouth every morning. [facility] potassium phosphate 15 mmol in NaCl 0.9% (NS) 150 mL piggyback 11-13 14:30: 00 11-13 19:51 :00 No 15mmol 15 mmol, IV Piggyback, ONCE, 1 dose, On Sat11/13/22 at 0930, 150 mL [facility] sennosides (SENOKOT) tablet 8.6 mg 11-12 14:00: 00 Yes 8.6mg 8.6 mg, Oral, DAILY, First dose on Sat11/12/22 at 0900, Until Discontinu ed, Routine [facility] D5W 0.45% NaCl (1/2NS) IV infusion 1,000 mL 11-12 13:30: 00 11-12 14:54 :49 No 1000mL at 100 mL/hr, 1,000 mL, IV Infusion, ONCE, 1 dose, On Sat11/12/22 at 0830, Routine [facility] acetaminoph en (TYLENOL) tablet 500 mg 11-12 03:43: 02 Yes 500mg 500 mg, Oral, Q6HPRN, Starting on Sat11/11/22 at 2243, Until Discontinu ed, Routine, Pain (scale 1-3) [facility] oxazepam (SERAX) capsule 15 mg 11-12 02:09: 00 Yes 15mg 15 mg, Oral, Q4HPRN, Starting on Sat11/11/22 at 2109, Until Discontinu ed, Routine, Only while awake for DBP equal to or greater than 100, HR equal to or greater than 100. [facility] D5W 0.9% NaCl (NS) 1 L + KCL 20 mEq 11-11 19:15: 00 11-12 12:42 :08 No IV Infusion, at 100 mL/hr, CONTINUOUS , Starting on Sat11/11/22 at 1415, Until Sat11/12/22 at 0742, Routine [facility] multivitami n oral solution 15 mL 11-11 18:15: 00 Yes 15mL 15 mL, Oral, DAILY, First dose on Sat11/11/22 at 1315, Until Discontinu ed, Routine [facility] potassium chloride in water (KCL) 20 mEq/100 mL RTU IVPB 20 mEq 11-11 10:45: 00 11-11 16:30 :00 No 20meq 20 mEq, IV Infusion, Q2H ES, 2 doses, First dose on Sat11/11/22 at 0545, Last dose on Sat11/11/22 at 0745, 100 mL [facility] glucagon (GLUCAGEN DIAGNOSTIC KIT) injection 1 mg 11-11 10:16: 15 Yes 1mg 1 mg, Intramuscu lar, PRN, Starting on Sat11/11/22 at 0516, Until Discontinu ed, CECILIA, Blood Glucose < or = 70 mg/dL and patient is NPO, unable to swallow or has mental changes. [facility] dextrose 50 % in water (D50W) injection 25 mL 11-11 10:16: 15 Yes 25mL 25 mL, Slow IV Push, PRN, Starting on Sat11/11/22 at 0516, Until Discontinu ed, CECILIA, Blood Glucose < or = 70 mg/dL and patient is NPO, unable to swallow or has mental status changes. [facility] NaCl 0.9% (NS) IV infusion 1,000 mL 11-11 01:30: 00 11-11 17:57 :28 No 1000mL at 100 mL/hr, IV Infusion, CONTINUOUS , Starting on 11/10/22 at 2030, Until 11/11/22 at 1257, Routine [facility] heparin (porcine) injection 5,000 Units 11-11 01:00: 00 Yes 5000U 5,000 Units, Subcutaneo us, Q12H, First dose on [facility] 11/10/22 at 2000, Until Discontinu ed, Routine [facility] magnesium sulfate in water 2 gram/50 mL (4 %) infusion 2 g 11-11 00:45: 00 11-11 04:01 :00 No 2g 2 g, IV Piggyback, Administer over 60 Minutes, ONCE, 1 dose, On [facility] 11/10/22 at 1945, Routine [facility] dexMEDEtomi dine 200 mcg in 0.9 % NaCl 50 mL (PRECEDEX) RTU IV infusion 11-11 00:42: 42 11-12 02:16 :46 No .2ug/kg /h 0.2-1.5 mcg/kg/hr ?49 kg (2.45-18.3 75 mL/hr, rounded to 2.45-18.38 mL/hr), IV Infusion, TITRATE, Sedation-R ASS score (0 to -1), Starting on [facility] 11/10/22 at 1942
In itiate infusion at 0.2 mcg/kg/hr and titrate by 0.1 mcg/kg/hr every 30 minutes to goal sedation score. Maximum dose = 1.5 mcg/kg/hr. If goal not maintained at maximum allowed dose, contact prescriber .
[facility] foLIC acid (FOLATE) injection 1 mg 11-11 00:00: 00 Yes 1mg 1 mg, Intramuscu lar, DAILY, First dose on 11/10/22 at 1900, Until Discontinu ed, Routine [facility] thiamine (VITAMIN B1) 100 mg in NaCl 0.9% (NS) piggyback 11-11 00:00: 00 11-15 13:59 :00 No 100mg IV Piggyback, DAILY, 5 doses, First dose on Sat11/10/22 at 1900, Last dose on Sat11/14/22 at 0900, 50 mL [facility] LORazepam (ATIVAN) injection 1 mg 11-10 23:43: 00 11-12 02:09 :22 No 1mg 1 mg, Slow IV Push, TIDPRN, Starting on 11/10/22 at 1843, Until 11/11/22 at 2109, Routine, Seizures [facility] diazePAM (VALIUM) injection 10 mg 11-10 23:15: 00 11-10 23:17 :00 No 10mg 10 mg, Slow IV Push, ONCE, 1 dose, On 11/10/22 at 1815, STAT [facility] proMETHazin e (PHENERGAN) 25 mg in NaCl 0.9% (NS) 50 mL piggyback 11-10 23:15: 00 11-10 23:19 :00 No 25mg 25 mg, IV Piggyback, ONCE, 1 dose, On 11/10/22 at 1815, 50 mL [facility] LORazepam (ATIVAN) injection 2 mg 11-10 23:00: 00 11-10 23:10 :00 No 2mg 2 mg, Slow IV Push, ONCE, 1 dose, On Sat11/10/22 at 1800, STAT [facility] LORazepam (ATIVAN) injection 1 mg 11-10 22:15: 00 11-10 22:26 :00 No 1mg 1 mg, Slow IV Push, ONCE, 1 dose, On 11/10/22 at 1715, STAT [facility] lisinopriL 2.5 mg tablet 11-08 00:00: 00 12-09 04:59 :00 No [id number] 2.5mg Take 1 tablet by mouth in the morning for 30 days. [facility] magnesium sulfate in water 2 gram/50 mL (4 %) infusion 2 g 11-07 15:00: 00 11-07 15:40 :00 No 2g 2 g, IV Piggyback, Administer over 60 Minutes, ONCE, 1 dose, On Sat11/07/22 at 1000, Routine [facility] lisdexamfet amine (VYVANSE) 60 mg capsule 11-07 14:54: 12 Yes 60mg Take 1 capsule by mouth every morning. [facility] lisinopriL (PRINIVIL,Z ESTRIL) tablet 2.5 mg 11-07 14:15: 00 Yes 2.5mg 2.5 mg, Oral, DAILY, First dose on Sat11/07/22 at 0915, Until Discontinu ed, Routine [facility] enoxaparin (LOVENOX) injection 40 mg 11-06 22:00: 00 Yes 40mg 40 mg, Subcutaneo us, DAILY, First dose on Sat11/06/22 at 1700, Until Discontinu ed, Routine [facility] pantoprazol e (PROTONIX) EC tablet 40 mg 11-06 14:00: 00 Yes 40mg 40 mg, Oral, DAILY, First dose on Sat11/06/22 at 0900, Until Discontinu ed, Routine [facility] metoprolol succinate XL (TOPROL XL) tablet 25 mg 11-06 14:00: 00 Yes 25mg 25 mg, Oral, DAILY, First dose on Sat11/06/22 at 0900, Until Discontinu ed, Routine [facility] docusate (COLACE) capsule 100 mg 11-06 13:00: 00 Yes 100mg 100 mg, Oral, BID, First dose on Sat11/06/22 at 0800, Until Discontinu ed, Routine [facility] D5W 0.9% NaCl (NS) IV infusion 1,000 mL 11-06 12:15: 00 11-08 12:14 :00 No 1000mL at 200 mL/hr, 1,000 mL, IV Infusion, CONTINUOUS , Starting on Sat11/06/22 at 0715, Until [place] 11/08/22 at 0714, CECILIA [facility] D5W 0.9% NaCl (NS) IV infusion 1,000 mL 11-06 11:30: 00 11-06 12:13 :19 No 1000mL at 200 mL/hr, 1,000 mL, IV Infusion, CONTINUOUS , Starting on Sat11/06/22 at 0630, Until Sat11/06/22 at 0713, CECILIA [facility] ondansetron (ZOFRAN (PF)) injection 4 mg 11-06 10:31: 07 Yes 4mg 4 mg, Slow IV Push, Q6HPRN, Starting on Sat11/06/22 at 0531, Until Discontinu ed, Routine, Nausea and Vomiting (N/V) [facility] bisacodyL (DULCOLAX) tablet 10 mg 11-06 10:31: 02 Yes 10mg 10 mg, Oral, QDAILYPRN, Starting on Sat11/06/22 at 0531, Until Discontinu ed, Routine, Constipati on [facility] FENTanyl PF (SUBLIMAZE (PF)) injection 25 mcg 11-06 10:30: 33 11-07 10:29 :33 No 25ug 25 mcg, Slow IV Push, Q4HPRN, Starting on Sat11/06/22 at 0530, Until Sat11/07/22 at 0529, Routine, Pain (scale 7-10) [facility] acetaminoph en (TYLENOL) tablet 650 mg 11-06 10:29: 53 Yes 650mg 650 mg, Oral, Q6HPRN, Starting on Sat11/06/22 at 0529, Until Discontinu ed, Routine, Pain (scale 1-3) [facility] foLIC acid (FOLATE) 5 mg in NaCl 0.9% (NS) piggyback 11-06 10:15: 00 11-06 10:35 :00 No 5mg IV Piggyback, ONCE NOW, 1 dose, On Sat11/06/22 at 0515, 50 mL [facility] thiamine (VITAMIN B1) 100 mg in NaCl 0.9% (NS) piggyback 11-06 10:15: 00 11-06 10:45 :00 No 100mg IV Piggyback, ONCE NOW, 1 dose, On Sat11/06/22 at 0515, 50 mL [facility] NaCl 0.9% (NS) bolus infusion 1,000 mL 11-06 09:00: 00 11-06 09:11 :00 No 1000mL at 999 mL/hr, 1,000 mL, IV Piggyback, ONCE, 1 dose, On Sat11/06/22 at 0400, STAT [facility] morpHINE (4 mg/mL) injection 4 mg 11-06 09:00: 00 11-06 08:54 :00 No 4mg 4 mg, Slow IV Push, ONCE, 1 dose, On Sat11/06/22 at 0400, STAT [facility] iopamidol (ISOVUE 370-500 mL) injection 70 mL 11-06 07:45: 00 11-06 06:58 :00 No [id number] 70mL 70 mL, Intravenou s, ONCE, 1 dose, On Sat11/06/22 at 0245, Routine [facility] ketorolac (TORADOL) injection 30 mg 11-06 07:30: 00 11-06 06:33 :00 No 30mg 30 mg, Slow IV Push, ONCE, 1 dose, On Sat11/06/22 at 0230, Routine [facility] NaCl 0.9% (NS) bolus infusion 1,000 mL 11-06 07:15: 00 11-06 08:11 :00 No 1000mL at 999 mL/hr, 1,000 mL, IV Infusion, ONCE, 1 dose, On Sat11/06/22 at 0215, CECILIA [facility] FENTanyl PF (SUBLIMAZE (PF)) injection 50 mcg 11-06 07:15: 00 11-06 06:34 :00 No 50ug 50 mcg, Slow IV Push, ONCE, 1 dose, On Sat11/06/22 at 0215, Routine [facility] ondansetron (ZOFRAN (PF)) injection 4 mg 11-06 06:30: 00 11-06 06:34 :00 No 4mg 4 mg, Slow IV Push, ONCE, 1 dose, On Sat11/06/22 at 0130, CECILIA [facility] albuterol 90 mcg/actuati on inhaler 11-06 01:23: 41 11-06 00:00 :00 No 2{puff} Inhale 2 Puffs every 6 (six) hours as needed for Wheezing or Shortness of Breath. [facility] ibuprofen 600 mg tablet 11-06 01:23: 41 11-06 00:00 :00 No 600mg Take 600 mg by mouth in the morning. [facility] lisdexamfet amine (VYVANSE) 60 mg capsule 10-30 00:00: 00 11-06 00:00 :00 No 1 capsule in the morning Orally Once a day for 30 days [facility] doxycycline hyclate (Vibramycin ) capsule 100 mg 08-28 03:30: 00 08-28 03:50 :00 No 100mg 100 mg, Oral, ONCE, 1 dose, On Sat08/27/22 at 2230, CECILIA
Re ason for Anti-Infec tive: Documented Infection< br>Documen colleen Infection Site: Skin / Soft Tissue
Duration of Therapy: 10 days [facility] cephALEXin (KEFLEX) capsule 500 mg 08-28 03:30: 00 08-28 03:50 :00 No 500mg 500 mg, Oral, ONCE, 1 dose, On Sat08/27/22 at 2230, CECILIA
Re ason for Anti-Infec tive: Empiric Therapy for Suspected Infection< br>Empiric Therapy Site: Skin / Soft tissue
Duration of therapy: 5 days [facility] lisdexamfet amine (VYVANSE) 60 mg capsule 08-27 22:56: 45 Yes 60mg Take 1 capsule by mouth every morning. [facility] pantoprazol e 40 mg EC tablet 08-27 20:42: 39 08-27 00:00 :00 No 40mg Take 40 mg by mouth in the morning. [facility] lisdexamfet amine 50 mg capsule 08-27 20:42: 27 08-27 00:00 :00 No 50mg Take 50 mg by mouth every morning. [facility] doxycycline hyclate 100 mg capsule 08-27 00:00: 00 Yes [id number] 100mg Take 1 capsule by mouth in the morning and 1 capsule in the evening. [facility] cephALEXin (KEFLEX) 500 mg capsule 08-27 00:00: 00 09-04 04:59 :00 No [id number] 500mg Take 1 capsule by mouth in the morning and 1 capsule at noon and 1 capsule in the evening. Do all this for 7 days. [facility] cefTRIAXone Sodium cefTRIAXone Sodium 2022-0 2-10 00:00: 00 No 1g [facility] cefTRIAXone Sodium cefTRIAXone Sodium 3-0 2-10 00:00: 00 No 1g [facility] cefTRIAXone Sodium cefTRIAXone Sodium 3-0 2-10 00:00: 00 No 1g [facility] cefTRIAXone Sodium cefTRIAXone Sodium 3-0 2-10 00:00: 00 No [facility] cefTRIAXone Sodium cefTRIAXone Sodium 3-0 2-10 00:00: 00 No 1g [facility] cefTRIAXone Sodium cefTRIAXone Sodium 3-0 2-10 00:00: 00 No 1g [facility] cefTRIAXone Sodium cefTRIAXone Sodium 3-0 2-10 00:00: 00 No 1g [facility] cefTRIAXone Sodium cefTRIAXone Sodium 3-0 2-10 00:00: 00 No 1g [facility] cefTRIAXone Sodium cefTRIAXone Sodium 3-0 2-10 00:00: 00 No 1g [facility] cefTRIAXone Sodium cefTRIAXone Sodium 2023-0 2-10 00:00: 00 No 1g [facility] cefTRIAXone Sodium cefTRIAXone Sodium 3-0 2-10 00:00: 00 No 1g [facility] cefTRIAXone Sodium cefTRIAXone Sodium 2022-0 2-10 00:00: 00 No 1g [facility] cefTRIAXone Sodium cefTRIAXone Sodium 2022-0 2-10 00:00: 00 No 1g [facility] cefTRIAXone Sodium cefTRIAXone Sodium 2022-0 2-10 00:00: 00 No 1g [facility] cefTRIAXone Sodium cefTRIAXone Sodium 3-0 2-10 00:00: 00 No 1g [facility] cefTRIAXone Sodium cefTRIAXone Sodium 2022-0 2-10 00:00: 00 No 1g [facility] cefTRIAXone Sodium cefTRIAXone Sodium 2022-0 2-10 00:00: 00 No 1g [facility] cefTRIAXone Sodium cefTRIAXone Sodium 2022-0 2-10 00:00: 00 No 1g [facility] Vyvanse 60 MG Vyvanse 60 MG 0 1-10 00:00: 00 No 1{capsu le_in_t he_morn ing} QD Vyvanse 60 MG iopamidol (ISOVUE 370-500 mL) injection 80 mL 2021-04 01:00: 00 04-13 00:03 :00 No [id number] 80mL 80 mL, Intravenou s, ONCE, 1 dose, On [place] 04/12/22 at 1900, Routine [facility] NaCl 0.9% (NS) bolus infusion 500 mL 2021-04 23:30: 00 04-12 23:47 :00 No 500mL at 999 mL/hr, 500 mL, IV Infusion, ONCE, 1 dose, On [place] 04/12/22 at 1730, CECILIA [facility] morpHINE (4 mg/mL) injection 4 mg 2021-04 22:45: 00 04-12 23:03 :00 No 4mg 4 mg, Slow IV Push, ONCE, 1 dose, On [place] 04/12/22 at 1645, STAT [facility] ampicillin- sulbactam (UNASYN) 3 g in NaCl 0.9% (NS) 100 mL MINI-BAG 2021-04 22:45: 00 04-12 23:34 :00 No 3g 3 g, IV Piggyback, ONCE, 1 dose, On [place] 04/12/22 at 1645, Administer over 30 Minutes, 100 mL
Reas on for Anti-Infec tive: Documented Infection< br>Documen colleen Infection Site: HEENT
D uration of Therapy: 7 days [facility] HYDROcodone -acetaminop hen 5-325 mg tablet 2021-04 00:00: 00 04-20 05:59 :00 No [id number] 1{tbl} Take 1 tablet by mouth every 6 (six) hours as needed for Pain (scale 7-10) for up to 7 days. Indication s: acute pain [facility] dexamethaso ne sod phos PF injection 10 mg 2021-04 06:30: 00 04-09 06:32 :00 No 10mg 10 mg, Oral, ONCE, 1 dose, On 04/09/22 at 0030, 1 mL [facility] Vyvanse 60 MG Vyvanse [...] Take 50 mg by mouth every morning. [facility] pantoprazol e 40 mg EC tablet 11-13 15:00: 18 Yes 40mg Take 40 mg by mouth in the morning. [facility] ibuprofen 600 mg tablet 11-13 15:00: 18 Yes 600mg Take 600 mg by mouth in the morning. [facility] aspirin 325 mg tablet 11-13 00:00: 00 12-12 04:59 :00 No [id number] 325mg Take 1 tablet by mouth in the morning and 1 tablet in the evening. Take with meals. Do all this for 28 days. [facility] Medrol 4 MG Medrol 4 MG 6-28 [...] he_morn ing} QD Vyvanse 60 MG Nystatin [id number] UNIT/ML Nystatin [id number] UNIT/ML 920 00:00: 00 - 00:00 :00 No QID Nystatin [id number] UNIT/ML Vitamin B12 (Cyanocobal patel) Vitamin B12 (Cyanocobal patel) 2019-0 9-28 00:00: 00 No 1000ug [facility] Vitamin B12 (Cyanocobal patel) Vitamin B12 (Cyanocobal patel) 2019-0 9-28 00:00: 00 No 1000ug [facility] Vitamin B12 (Cyanocobal patel) Vitamin B12 (Cyanocobal patel) 2019-0 9-28 00:00: 00 No 1000ug [facility] Vitamin B12 (Cyanocobal patel) Vitamin B12 (Cyanocobal patel) 2019-0 9-28 00:00: 00 No 1000ug [facility] Vitamin B12 (Cyanocobal patel) Vitamin B12 (Cyanocobal patel) 2019-0 9-28 00:00: 00 No 1000ug [facility] Vitamin B12 (Cyanocobal patel) Vitamin B12 (Cyanocobal patel) 2019-0 9-28 00:00: 00 No 1000ug [facility] Vitamin B12 (Cyanocobal patel) Vitamin B12 (Cyanocobal patel) 2020-0 9-28 00:00: 00 No 1000ug [facility] Vitamin B12 (Cyanocobal patel) Vitamin B12 (Cyanocobal patel) 2020-0 9-28 00:00: 00 No 1000ug [facility] Vitamin B12 (Cyanocobal patel) Vitamin B12 (Cyanocobal patel) 2020-0 9-28 00:00: 00 No 1000ug [facility] Vitamin B12 (Cyanocobal patel) Vitamin B12 (Cyanocobal patel) 2020-0 9 00:00: 00 No 1000ug [facility] Vitamin B12 (Cyanocobal patel) Vitamin B12 (Cyanocobal patel) 2019-0 9 00:00: 00 No 1000ug [facility] Vitamin B12 (Cyanocobal patel) Vitamin B12 (Cyanocobal patel) 2019-0 9- 00:00: 00 No 1000ug [facility] Vitamin B12 (Cyanocobal patel) Vitamin B12 (Cyanocobal patel) 2020-0 9-28 00:00: 00 No 1000ug [facility] Vitamin B12 (Cyanocobal patel) Vitamin B12 (Cyanocobal patel) 2019-0 9- 00:00: 00 No 1000ug [facility] Vitamin B12 (Cyanocobal patel) Vitamin B12 (Cyanocobal patel) 2019-0 9-28 00:00: 00 No 1000ug [facility] Vitamin B12 (Cyanocobal patel) Vitamin B12 (Cyanocobal patel) 2020-0 9-28 00:00: 00 No 1000ug [facility] Vitamin B12 (Cyanocobal patel) Vitamin B12 (Cyanocobal patel) 2020-0 9-28 00:00: 00 No 1000ug [facility] Vitamin B12 (Cyanocobal patel) Vitamin B12 (Cyanocobal patel) 2019-0 9-28 00:00: 00 No 1000ug [facility] Vitamin B12 (Cyanocobal patel) Vitamin B12 (Cyanocobal patel) 2020-0 9-28 00:00: 00 No 1000ug [facility] Vitamin B12 (Cyanocobal patel) Vitamin B12 (Cyanocobal patel) 2019-0 9-28 00:00: 00 No 1000ug [facility] Vitamin B12 (Cyanocobal patel) Vitamin B12 (Cyanocobal patel) 2019-0 9-28 00:00: 00 No 1000ug [facility] Vitamin B12 (Cyanocobal patel) Vitamin B12 (Cyanocobal patel) 0 9- 00:00: 00 No 1000ug [facility] Vitamin B12 (Cyanocobal patel) Vitamin B12 (Cyanocobal patel) 2019-0 9- 00:00: 00 No 1000ug [facility] Vitamin B12 (Cyanocobal patel) Vitamin B12 (Cyanocobal patel) 0 9 00:00: 00 No 1000ug [facility] Medrol Medrol 2019-0 8-18 00:00: 00 12-13 00:00 :00 No Liz Malagon as directed [facility] Solumedrol 125mg/2ml Solumedrol 125mg/2ml 2019-0 8-17 00:00: 00 No 42mg [facility] Solumedrol 125mg/2ml Solumedrol 125mg/2ml 2019-0 8-17 00:00: 00 No 42mg [facility] Solumedrol 125mg/2ml Solumedrol 125mg/2ml 2019-0 8-17 00:00: 00 No 42mg [facility] Solumedrol 125mg/2ml Solumedrol 125mg/2ml 2019-0 8-17 00:00: 00 No 42mg [facility] Solumedrol 125mg/2ml Solumedrol 125mg/2ml 2019-0 8-17 00:00: 00 No 42mg [facility] Solumedrol 125mg/2ml Solumedrol 125mg/2ml 2019-0 8-17 00:00: 00 No 42mg [facility] Solumedrol 125mg/2ml Solumedrol 125mg/2ml 2019-0 8-17 00:00: 00 No 42mg [facility] Solumedrol 125mg/2ml Solumedrol 125mg/2ml 2019-0 8-17 00:00: 00 No 42mg [facility] Solumedrol 125mg/2ml Solumedrol 125mg/2ml 2019-0 8-17 00:00: 00 No 42mg [facility] Solumedrol 125mg/2ml Solumedrol 125mg/2ml 2019-0 8-17 00:00: 00 No 42mg [facility] Solumedrol 125mg/2ml Solumedrol 125mg/2ml 2019-0 8-17 00:00: 00 No 42mg [facility] Solumedrol 125mg/2ml Solumedrol 125mg/2ml 2019-0 8-17 00:00: 00 No 42mg [facility] Solumedrol 125mg/2ml Solumedrol 125mg/2ml 2019-0 8-17 00:00: 00 No 42mg [facility] Solumedrol 125mg/2ml Solumedrol 125mg/2ml 2019-0 8-17 00:00: 00 No 42mg [facility] Solumedrol 125mg/2ml Solumedrol 125mg/2ml 2019-0 8-17 00:00: 00 No 42mg [facility] Solumedrol 125mg/2ml Solumedrol 125mg/2ml 2019-0 8-17 00:00: 00 No 42mg [facility] Solumedrol 125mg/2ml Solumedrol 125mg/2ml 2019-0 8-17 00:00: 00 No 42mg [facility] Solumedrol 125mg/2ml Solumedrol 125mg/2ml 2019-0 8-17 00:00: 00 No 42mg [facility] Solumedrol 125mg/2ml Solumedrol 125mg/2ml 2019-0 8-17 00:00: 00 No [facility] Solumedrol 125mg/2ml Solumedrol 125mg/2ml 0 12-06 00:00: 00 No 42mg [facility] Solumedrol 125mg/2ml Solumedrol 125mg/2ml 0 12-06 00:00: 00 No 42mg [facility] Solumedrol 125mg/2ml Solumedrol 125mg/2ml 0 12-06 00:00: 00 No 42[facility] Solumedrol 125mg/2ml Solumedrol 125mg/2ml 0 12-06 00:00: 00 No 42mg [facility] Solumedrol 125mg/2ml Solumedrol 125mg/2ml 0 12-06 00:00: 00 No 42mg [facility] metoprolol succinate XL 25 mg 24 hr tablet 11-05 00:00: 00 Yes [id number] 25mg Take 1 tablet by mouth daily. [facility] Kenalog (Triamcinol one) Kenalog (Triamcinol one) 0 08-14 00:00: 00 No 40mg [facility] Kenalog (Triamcinol one) Kenalog (Triamcinol one) 0 08-14 00:00: 00 No 40mg [facility] Kenalog (Triamcinol one) Kenalog (Triamcinol one) 0 08-14 00:00: 00 No 40mg [facility] Kenalog (Triamcinol one) Kenalog (Triamcinol one) 0 08-14 00:00: 00 No 40mg [facility] Kenalog (Triamcinol one) Kenalog (Triamcinol one) 0 08-14 00:00: 00 No 40mg [facility] Kenalog (Triamcinol one) Kenalog (Triamcinol one) 0 08-14 00:00: 00 No 40[facility] Kenalog (Triamcinol one) Kenalog (Triamcinol one) [id number] 08-14 00:00: 00 No 40mg [facility] Kenalog (Triamcinol one) Kenalog (Triamcinol one) 0 08-14 00:00: 00 No 40mg [facility] Kenalog (Triamcinol one) Kenalog (Triamcinol one) 0 08-14 00:00: 00 No 40mg [facility] Kenalog (Triamcinol one) Kenalog (Triamcinol one) 0 08-14 00:00: 00 No 40mg [facility] Kenalog (Triamcinol one) Kenalog (Triamcinol one) 0 08-14 00:00: 00 No 40mg [facility] Kenalog (Triamcinol one) Kenalog (Triamcinol one) 0 08-14 00:00: 00 No 40mg [facility] Kenalog (Triamcinol one) Kenalog (Triamcinol one) 0 08-14 00:00: 00 No 40mg [facility] Kenalog (Triamcinol one) Kenalog (Triamcinol one) 0 08-14 00:00: 00 No 40mg [facility] Kenalog (Triamcinol one) Kenalog (Triamcinol one) [id number] 08-14 00:00: 00 No 40mg [facility] Kenalog (Triamcinol one) Kenalog (Triamcinol one) [id number] 08-14 00:00: 00 No 40mg [facility] Kenalog (Triamcinol one) Kenalog (Triamcinol one) [id number] 08-14 00:00: 00 No 40mg [facility] Kenalog (Triamcinol one) Kenalog (Triamcinol one) [id number] 08-14 00:00: 00 No 40mg [facility] Kenalog (Triamcinol one) Kenalog (Triamcinol one) 08-14 00:00: 00 No 40mg [facility] Kenalog (Triamcinol one) Kenalog (Triamcinol one) 08-14 00:00: 00 No 40mg [facility] Kenalog (Triamcinol one) Kenalog (Triamcinol one) 08-14 00:00: 00 No 40mg [facility] Kenalog (Triamcinol one) Kenalog (Triamcinol one) 08-14 00:00: 00 No 40mg [facility] Kenalog (Triamcinol one) Kenalog (Triamcinol one) 08-14 00:00: 00 No 40mg [facility] Kenalog (Triamcinol one) Kenalog (Triamcinol one) 08-14 00:00: 00 No 40mg [facility] Pantoprazol e Sodium 40 MG Pantoprazol [...] Comments Source TD Pres-Free 2023-10-18 00:00:00 Completed [facility] TD Pres-Free 2023-10-18 00:00:00 Completed [facility] TD Pres-Free 2023-10-18 00:00:00 Completed [facility] Influenza High Dose 2022-02-11 00:00:00 Completed [facility] Influenza High Dose 2022-02-11 00:00:00 Completed [facility] Influenza High Dose 2022-02-11 00:00:00 Completed [facility] Influenza High Dose 2022-02-11 00:00:00 Completed [facility] Influenza High Dose 2022-02-11 00:00:00 Completed [facility] Influenza High Dose 2022-02-11 00:00:00 Completed [facility] Influenza, High-Dose, Trivalent, PF (FLUZONE) 2022-02-11 00:00:00 Completed [facility] Influenza, High-Dose, Trivalent, PF (FLUZONE) 2022-02-11 00:00:00 Completed [facility] Influenza, High-Dose, Trivalent, PF (FLUZONE) 2022-02-11 00:00:00 Completed [facility] HPV9 2021-08-14 00:00:00 Completed [facility] HPV9 2021-08-14 00:00:00 Completed [facility] HPV9 2021-08-14 00:00:00 Completed [facility] HPV9 2021-08-14 00:00:00 Completed [facility] HPV9 2021-08-14 00:00:00 Completed [facility] HPV9 2021-08-14 00:00:00 Completed [facility] HPV9 2021-08-14 00:00:00 Completed [facility] HPV9 2021-08-14 00:00:00 Completed [facility] HPV9 2021-08-14 00:00:00 Completed [facility] HPV9 2021-08-14 00:00:00 Completed [facility] HPV9 2021-08-14 00:00:00 Completed [facility] HPV9 2021-08-14 00:00:00 Completed [facility] HPV9 2021-08-14 00:00:00 Completed HPV9 2021-08-14 00:00:00 Completed HPV9 2021-08-14 00:00:00 Completed HPV9 2021-07-13 00:00:00 Completed [facility] HPV9 2021-07-13 00:00:00 Completed [facility] HPV9 2021-07-13 00:00:00 Completed [facility] HPV9 2021-07-13 00:00:00 Completed [facility] HPV9 2021-07-13 00:00:00 Completed [facility] HPV9 2021-07-13 00:00:00 Completed [facility] HPV9 2021-07-13 00:00:00 Completed [facility] HPV9 2021-07-13 00:00:00 Completed [facility] HPV9 2021-07-13 00:00:00 Completed [facility] HPV9 2021-07-13 00:00:00 Completed [facility] HPV9 2021-07-13 00:00:00 Completed [facility] HPV9 2021-07-13 00:00:00 Completed [facility] HPV9 2021-07-13 00:00:00 Completed [facility] HPV9 2021-07-13 00:00:00 Completed [facility] HPV9 2021-07-13 00:00:00 Completed [facility] Influenza Virus Vaccine Quad IM, Preserv and ABX Free 6 MO-64 YRS 2021-03-07 00:00:00 Completed [facility] Influenza Virus Vaccine Quad IM, Preserv and ABX Free 6 MO-64 YRS 2021-03-07 00:00:00 Completed [facility] Influenza Virus Vaccine Quad IM, Preserv and ABX Free 6 MO-64 YRS 2021-03-07 00:00:00 Completed [facility] Influenza Virus Vaccine Quad IM, Preserv and ABX Free 6 MO-64 YRS 2021-03-07 00:00:00 Completed [facility] Influenza Virus Vaccine Quad IM, Preserv and ABX Free 6 MO-64 YRS 2021-03-07 00:00:00 Completed [facility] Influenza Virus Vaccine Quad IM, Preserv and ABX Free 6 MO-64 YRS 2021-03-07 00:00:00 Completed [facility] Influenza Virus Vaccine Quad IM, Preserv and ABX Free 6 MO-64 YRS 2021-03-07 00:00:00 Completed [facility] Influenza Virus Vaccine Quad IM, Preserv and ABX Free 6 MO-64 YRS 2021-03-07 00:00:00 Completed [facility] Influenza Virus Vaccine Quad IM, Preserv and ABX Free 6 MO-64 YRS 2021-03-07 00:00:00 Completed [facility] Influenza Virus Vaccine Quad IM, Preserv and ABX Free 6 MO-64 YRS 2021-03-07 00:00:00 Completed [facility] Influenza Virus Vaccine Quad IM, Preserv and ABX Free 6 MO-64 YRS 2021-03-07 00:00:00 Completed [facility] Influenza Virus Vaccine Quad IM, Preserv and ABX Free 6 MO-64 YRS 2021-03-07 00:00:00 Completed [facility] Influenza Virus Vaccine Quad IM, Preserv and ABX Free 6 MO-64 YRS (FLUCELVAX) 2021-03-07 00:00:00 Completed [facility] Influenza Virus Vaccine Quad IM, Preserv and ABX Free 6 MO-64 YRS (FLUCELVAX) 2021-03-07 00:00:00 Completed [facility] Influenza Virus Vaccine Quad IM, Preserv and ABX Free 6 MO-64 YRS (FLUCELVAX) 2021-03-07 00:00:00 Completed [facility] Vitamin B12 (Cyanocobalamin) Vitamin B12 (Cyanocobalamin) 2020-01-18 16:50:00 Completed [facility] Solumedrol 125mg/2ml Solumedrol 125mg/2ml 2019-12-07 14:03:[address] [facility] 2018-12-24 10:23:[address] [facility] 2018-12-24 10:23:[address] [facility] 2018-12-24 10:23:[address] [facility] 2018-12-24 10:23:[address] [facility] 2018-12-24 10:23:[address] [facility] 2018-12-24 10:23:[address] [facility] 2018-12-24 10:23:[address] [facility] 2018-12-24 00:00:00 Completed [facility] Kenalog (Triamcinolone) Kenalog (Triamcinolone) 2018-08-14 09:05:00 Completed [facility] Influenza Virus Vaccine Quad ID 18-64 [id number] 2017-01-18 00:00:00 Completed [facility] Influenza Virus Vaccine Quad ID 18-64 YRS 2017-01-18 00:00:00 Completed [facility] Influenza Virus Vaccine Quad ID 18-64 YRS 2017-01-18 00:00:00 Completed [facility] Influenza Virus Vaccine Quad ID 18-64 YRS 2017-01-18 00:00:00 Completed [facility] Influenza Virus Vaccine Quad ID 18-64 YRS 2017-01-18 00:00:00 Completed [facility] Influenza Virus Vaccine Quad ID 18-64 YRS 2017-01-18 00:00:00 Completed [facility] Influenza Virus Vaccine Quad ID 18-64 YRS 2017-01-18 00:00:00 Completed [facility] Influenza Virus Vaccine Quad ID 18-64 YRS 2017-01-18 00:00:00 Completed [facility] Influenza Virus Vaccine Quad ID 18-64 YRS 2017-01-18 00:00:00 Completed [facility] Influenza Virus Vaccine Quad ID 18-64 YRS 2017-01-18 00:00:00 Completed [facility] Influenza Virus Vaccine Quad ID 18-64 YRS 2017-01-18 00:00:00 Completed [facility] Influenza Virus Vaccine Quad ID 18-64 YRS 2017-01-18 00:00:00 Completed [facility] Influenza Virus Vaccine Quad ID 18-64 YRS 2017-01-18 00:00:00 Completed [facility] Influenza Virus Vaccine Quad ID 18-64 YRS 2017-01-18 00:00:00 Completed [facility] Influenza Virus Vaccine Quad ID 18-64 YRS 2017-01-18 00:00:00 Completed [facility] Influenza Virus Vaccine Quad IM 3+ YRS 2016-08-21 00:00:00 Completed [facility] Influenza Virus Vaccine Quad IM 3+ YRS 2016-08-21 00:00:00 Completed [facility] Influenza Virus Vaccine Quad IM 3+ YRS 2016-08-21 00:00:00 Completed [facility] Influenza Virus Vaccine Quad IM 3+ YRS 2016-08-21 00:00:00 Completed [facility] Influenza Virus Vaccine Quad IM 3+ YRS 2016-08-21 00:00:00 Completed [facility] Influenza Virus Vaccine Quad IM 3+ YRS 2016-08-21 00:00:00 Completed [facility] Influenza Virus Vaccine Quad IM 3+ YRS 2016-08-21 00:00:00 Completed [facility] Influenza Virus Vaccine Quad IM 3+ YRS 2016-08-21 00:00:00 Completed [facility] Influenza Virus Vaccine Quad IM 3+ YRS 2016-08-21 00:00:00 Completed [facility] Influenza Virus Vaccine Quad IM 3+ YRS 2016-08-21 00:00:00 Completed [facility] Influenza Virus Vaccine Quad IM 3+ YRS 2016-08-21 00:00:00 Completed [facility] Influenza Virus Vaccine Quad IM 3+ YRS 2016-08-21 00:00:00 Completed [facility] Influenza Virus Vaccine Quad IM 3+ YRS 2016-08-21 00:00:00 Completed [facility] Influenza Virus Vaccine Quad IM 3+ YRS 2016-08-21 00:00:00 Completed [facility] Influenza Virus Vaccine Quad IM 3+ YRS 2016-08-21 00:00:00 Completed [facility] Influenza Virus Vaccine 2016-08-20 00:00:00 Completed [facility] Influenza Virus Vaccine 2016-08-20 00:00:00 Completed [facility] Influenza Virus Vaccine 2016-08-20 00:00:00 Completed [facility] Influenza Virus Vaccine 2016-08-20 00:00:00 Completed [facility] Influenza Virus Vaccine 2016-08-20 00:00:00 Completed [facility] Influenza Virus Vaccine 2016-08-20 00:00:00 Completed [facility] Influenza Virus Vaccine 2016-08-20 00:00:00 Completed [facility] Influenza Virus Vaccine 2016-08-20 00:00:00 Completed [facility] Influenza Virus Vaccine 2016-08-20 00:00:00 Completed [facility] Influenza Virus Vaccine 2016-08-20 00:00:00 Completed [facility] Influenza Virus Vaccine 2016-08-20 00:00:00 Completed [facility] Influenza Virus Vaccine 2016-08-20 00:00:00 Completed [facility] Influenza Virus Vaccine 2016-08-20 00:00:00 Completed Influenza Virus Vaccine 2016-08-20 00:00:00 Completed Influenza Virus Vaccine 2016-08-20 00:00:00 Completed Influenza Virus Vaccine Quad IM 3+ YRS Unknown Completed [facility] Influenza Virus Vaccine Quad ID 18-64 YRS Unknown Completed [facility] Influenza Virus Vaccine Unknown Completed [facility] Influenza Virus Vaccine Quad IM, Preserv and ABX Free 6 MO-64 YRS (FLUCELVAX) Unknown Completed [facility] Influenza Virus Vaccine Quad IM 3+ YRS Unknown Completed [facility] Influenza Virus Vaccine Quad ID 18-64 YRS Unknown Completed [facility] Influenza Virus Vaccine Unknown Completed [facility] Influenza Virus Vaccine Quad IM, Preserv and ABX Free 6 MO-64 YRS (FLUCELVAX) Unknown Completed [facility] HPV9 Unknown Completed [facility] Influenza High Dose Unknown Completed [facility] Influenza Virus Vaccine Quad IM 3+ YRS Unknown Completed [facility] Influenza Virus Vaccine Quad ID 18-64 YRS Unknown Completed [facility] Influenza Virus Vaccine Unknown Completed [facility] Influenza Virus Vaccine Quad IM, Preserv and ABX Free 6 MO-64 YRS (FLUCELVAX) Unknown Completed [facility] Influenza High Dose Unknown Completed [facility] HPV9 Unknown Completed [facility] Influenza Virus Vaccine Quad IM 3+ YRS Unknown Completed [facility] Influenza Virus Vaccine Quad ID 18-64 YRS Unknown Completed [facility] Influenza Virus Vaccine Unknown Completed [facility] Influenza Virus Vaccine Quad IM, Preserv and ABX Free 6 MO-64 YRS (FLUCELVAX) Unknown Completed [facility] HPV9 Unknown Completed [facility] Influenza High Dose Unknown Completed [facility] Influenza Virus Vaccine Quad IM 3+ YRS Unknown Completed [facility] Influenza Virus Vaccine Quad ID 18-64 YRS Unknown Completed [facility] Influenza Virus Vaccine Unknown Completed [facility] Influenza Virus Vaccine Quad IM, Preserv and ABX Free 6 MO-64 YRS (FLUCELVAX) Unknown Completed [facility] HPV9 Unknown Completed [facility] Influenza High Dose Unknown Completed [facility] Influenza Virus Vaccine Quad IM 3+ YRS Unknown Completed [facility] Influenza Virus Vaccine Quad ID 18-64 YRS Unknown Completed [facility] Influenza Virus Vaccine Unknown Completed [facility] Influenza Virus Vaccine Quad IM, Preserv and ABX Free 6 MO-64 YRS (FLUCELVAX) Unknown Completed [facility] HPV9 Unknown Completed [facility] Influenza High Dose Unknown Completed [facility] Influenza Virus Vaccine Quad IM 3+ YRS Unknown Completed [facility] Influenza Virus Vaccine Quad ID 18-64 YRS Unknown Completed [facility] Influenza Virus Vaccine Unknown Completed [facility] Influenza Virus Vaccine Quad IM, Preserv and ABX Free 6 MO-64 YRS (FLUCELVAX) Unknown Completed [facility] HPV9 Unknown Completed [facility] Influenza High Dose Unknown Completed [facility] Influenza Virus Vaccine Quad IM 3+ YRS Unknown Completed [facility] Influenza Virus Vaccine Quad ID 18-64 YRS Unknown Completed [facility] Influenza Virus Vaccine Unknown Completed [facility] Influenza Virus Vaccine Quad IM, Preserv and ABX Free 6 MO-64 YRS (FLUCELVAX) Unknown Completed [facility] HPV9 Unknown Completed [facility] Influenza High Dose Unknown Completed [facility] Influenza Virus Vaccine Quad IM 3+ YRS Unknown Completed [facility] Influenza Virus Vaccine Quad ID 18-64 YRS Unknown Completed [facility] Influenza Virus Vaccine Unknown Completed [facility] Influenza Virus Vaccine Quad IM, Preserv and ABX Free 6 MO-64 YRS (FLUCELVAX) Unknown Completed [facility] HPV9 Unknown Completed [facility] Influenza High Dose Unknown Completed [facility] Influenza Virus Vaccine Quad IM 3+ YRS Unknown Completed [facility] Influenza Virus Vaccine Quad ID 18-64 YRS Unknown Completed [facility] Influenza Virus Vaccine Unknown Completed [facility] Influenza Virus Vaccine Quad IM, Preserv and ABX Free 6 MO-64 YRS (FLUCELVAX) Unknown Completed [facility] HPV9 Unknown Completed [facility] Influenza High Dose Unknown Completed [facility] TD Pres-Free Unknown Completed [facility] Influenza Virus Vaccine Quad IM 3+ YRS Unknown Completed [facility] Influenza Virus Vaccine Quad ID 18-64 YRS Unknown Completed [facility] Influenza Virus Vaccine Unknown Completed [facility] Influenza Virus Vaccine Quad IM, Preserv and ABX Free 6 MO-64 YRS (FLUCELVAX) Unknown Completed [facility] HPV9 Unknown Completed [facility] Influenza High Dose Unknown Completed [facility] TD Pres-Free Unknown Completed [facility] Influenza Virus Vaccine Quad IM 3+ YRS Unknown Completed [facility] Influenza Virus Vaccine Quad ID 18-64 YRS Unknown Completed [facility] Influenza Virus Vaccine Unknown Completed [facility] Influenza Virus Vaccine Quad IM, Preserv and ABX Free 6 MO-64 YRS (FLUCELVAX) Unknown Completed [facility] HPV9 Unknown Completed [facility] Influenza High Dose Unknown Completed [facility] TD Pres-Free Unknown Completed [facility] Influenza Virus Vaccine Quad IM 3+ YRS Unknown Completed [facility] Influenza Virus Vaccine Quad ID 18-64 YRS Unknown Completed [facility] Influenza Virus Vaccine Unknown Completed [facility] Influenza Virus Vaccine Quad IM, Preserv and ABX Free 6 MO-64 YRS (FLUCELVAX) Unknown Completed [facility] HPV9 Unknown Completed [facility] Influenza High Dose Unknown Completed [facility] TD Pres-Free Unknown Completed [facility] Influenza Virus Vaccine Quad IM 3+ YRS Unknown Completed [facility] Influenza Virus Vaccine Quad ID 18-64 YRS Unknown Completed [facility] Influenza Virus Vaccine Unknown Completed [facility] Influenza Virus Vaccine Quad IM, Preserv and ABX Free 6 MO-64 YRS (FLUCELVAX) Unknown Completed [facility] HPV9 Unknown Completed [facility] Influenza High Dose Unknown Completed [facility] TD Pres-Free Unknown Completed [facility] Influenza Virus Vaccine Quad IM 3+ YRS Unknown Completed [facility] Influenza Virus Vaccine Quad ID 18-64 YRS Unknown Completed [facility] Influenza Virus Vaccine Unknown Completed [facility] Influenza Virus Vaccine Quad IM, Preserv and ABX Free 6 MO-64 YRS (FLUCELVAX) Unknown Completed [facility] HPV9 Unknown Completed [facility] Influenza High Dose Unknown Completed [facility] TD Pres-Free Unknown Completed [facility] Influenza Virus Vaccine Quad IM 3+ YRS Unknown Completed [facility] Influenza Virus Vaccine Quad ID 18-64 YRS Unknown Completed [facility] Influenza Virus Vaccine Unknown Completed [facility] Influenza Virus Vaccine Quad IM, Preserv and ABX Free 6 MO-64 YRS (FLUCELVAX) Unknown Completed [facility] HPV9 Unknown Completed [facility] Influenza High Dose Unknown Completed [facility] TD Pres-Free Unknown Completed [facility] Influenza Virus Vaccine Quad IM 3+ YRS Unknown Completed [facility] Influenza Virus Vaccine Quad ID 18-64 YRS Unknown Completed [facility] Influenza Virus Vaccine Unknown Completed [facility] Influenza Virus Vaccine Quad IM, Preserv and ABX Free 6 MO-64 YRS (FLUCELVAX) Unknown Completed [facility] HPV9 Unknown Completed [facility] Influenza High Dose Unknown Completed [facility] TD Pres-Free Unknown [facility]ine [facility] 3+ YRS Unknown Completed [facility] Influenza Virus Vaccine Quad ID 18-64 YRS Unknown Completed [facility] Influenza Virus Vaccine Unknown Completed [facility] Influenza Virus Vaccine Quad IM, Preserv and ABX Free 6 MO-64 YRS (FLUCELVAX) Unknown Completed [facility] HPV9 Unknown Completed [facility] Influenza High Dose Unknown Completed [facility] TD Pres-Free Unknown Completed [facility] Influenza Virus Vaccine Quad IM 3+ YRS Unknown Completed [facility] Influenza Virus Vaccine Quad ID 18-64 YRS Unknown Completed [facility] Influenza Virus Vaccine Unknown Completed [facility] Influenza Virus Vaccine Quad IM, Preserv and ABX Free 6 MO-64 YRS (FLUCELVAX) Unknown Completed [facility] HPV9 Unknown Completed [facility] Influenza High Dose Unknown Completed [facility] TD Pres-Free Unknown Completed [facility] Influenza Virus Vaccine Quad IM 3+ YRS Unknown Completed [facility] Influenza Virus Vaccine Quad ID 18-64 YRS Unknown Completed [facility] Influenza Virus Vaccine Unknown Completed [facility] Influenza Virus Vaccine Quad IM, Preserv and ABX Free 6 MO-64 YRS (FLUCELVAX) Unknown Completed [facility] HPV9 Unknown Completed [facility] Influenza High Dose Unknown Completed [facility] TD Pres-Free Unknown Completed [facility] Influenza Virus Vaccine Quad IM 3+ YRS Unknown Completed [facility] Influenza Virus Vaccine Quad ID 18-64 YRS Unknown Completed [facility] Influenza Virus Vaccine Unknown Completed [facility] Influenza Virus Vaccine Quad IM, Preserv and ABX Free 6 MO-64 YRS (FLUCELVAX) Unknown Completed [facility] HPV9 Unknown Completed [facility] Influenza High Dose Unknown Completed [facility] TD Pres-Free Unknown Completed [facility] Influenza Virus Vaccine Quad IM 3+ YRS Unknown Completed [facility] Influenza Virus Vaccine Quad ID 18-64 YRS Unknown Completed [facility] Influenza Virus Vaccine Unknown Completed [facility] Influenza Virus Vaccine Quad IM, Preserv and ABX Free 6 MO-64 YRS (FLUCELVAX) Unknown Completed [facility] HPV9 Unknown Completed [facility] Influenza High Dose Unknown Completed [facility] TD Pres-Free Unknown Completed [facility] Influenza Virus Vaccine Quad IM 3+ YRS Unknown Completed [facility] Influenza Virus Vaccine Quad ID 18-64 YRS Unknown Completed [facility] Influenza Virus Vaccine Unknown Completed [facility] Influenza Virus Vaccine Quad IM, Preserv and ABX Free 6 MO-64 YRS (FLUCELVAX) Unknown Completed [facility] HPV9 Unknown Completed [facility] Influenza, High-Dose, Trivalent, PF (FLUZONE) Unknown Completed [facility] TD Pres-Free Unknown Completed [facility] Afluria Afluria Unknown Completed [facility] Afluria Afluria Unknown Completed [facility] Afluria Afluria Unknown Completed [facility] Afluria Afluria Unknown Completed [facility] Afluria Afluria Unknown Completed [facility] Afluria Afluria Unknown Completed [facility] Afluria Afluria Unknown Completed [facility] Afluria Afluria Unknown Completed [facility] Afluria Afluria Unknown Completed [facility] Afluria Afluria Unknown Completed [facility] Afluria Afluria Unknown Completed [facility] Afluria Afluria Unknown Completed [facility] Afluria Afluria Unknown Completed [facility] Afluria Afluria Unknown Completed [facility] Afluria [facility]fluria Unknown Completed [facility] Afluria [facility]fluria Unknown Completed [facility] Afluria Afluria Unknown Completed [facility] Afluria Afluria Unknown Completed [facility] - [facility] Vital Signs Vital Name Observation Time Observation Value Comments S ource Respiratory rate 2024-04-05 08:56:00 19 /min [facility] Systolic blood pressure 2024-04-05 08:30:00 129 mm[Hg] [facility] Diastolic blood pressure 2024-04-05 08:30:00 94 mm[Hg] [facility] Heart rate 2024-04-05 05:12:00 97 /min [facility] Body temperature 2024-04-05 05:12:00 36.83 Purvi [facility] Body height 2024-04-05 05:12:00 170.2 cm [facility] Body weight 2024-04-05 05:12:00 54.432 kg [facility] BMI 2024-04-05 05:12:00 18.79 kg/m2 [facility] Oxygen saturation in Arterial blood by Pulse oximetry 2024-04-05 05:12:00 96 /min [facility] Systolic blood pressure 2024-03-31 00:32:00 130 mm[Hg] [facility] Diastolic blood pressure 2024-03-31 00:32:00 104 mm[Hg] [facility] Heart rate 2024-03-31 00:32:00 125 /min [facility] Body temperature 2024-03-31 00:32:00 36.72 Purvi [facility] Respiratory rate 2024-03-31 00:32:00 16 /min [facility] Body height 2024-03-31 00:32:00 170.2 cm [facility] Body weight 2024-03-31 00:32:00 54.432 kg [facility] BMI 2024-03-31 00:32:00 18.79 kg/m2 [facility] Oxygen saturation in Arterial blood by Pulse oximetry 2024-03-31 00:32:00 100 /min [facility] Systolic blood pressure 2024-03-30 08:58:00 144 mm[Hg] [facility] Diastolic blood pressure 2024-03-30 08:58:00 94 mm[Hg] [facility] Heart rate 2024-03-30 08:58:00 115 /min [facility] Body temperature 2024-03-30 08:58:00 36.78 Purvi [facility] Respiratory rate 2024-03-30 08:58:00 20 /min [facility] Body height 2024-03-30 08:58:00 170.2 cm [facility] Body weight 2024-03-30 08:58:00 54.432 kg [facility] BMI 2024-03-30 08:58:00 18.79 kg/m2 [facility] Oxygen saturation in Arterial blood by Pulse oximetry 2024-03-30 08:58:00 100 /min [facility] Systolic blood pressure 2024-02-05 18:15:00 124 mm[Hg] [facility] Diastolic blood pressure 2024-02-05 18:15:00 85 mm[Hg] [facility] Heart rate 2024-02-05 18:15:00 93 /min [facility] Body height 2024-02-05 18:15:00 170.2 cm [facility] Body weight 2024-02-05 18:15:00 56.745 kg [facility] BMI 2024-02-05 18:15:00 19.59 kg/m2 [facility] Systolic blood pressure 2024 21:08:00 114 mm[Hg] [facility] Diastolic blood pressure 2024 21:08:00 85 mm[Hg] [facility] Heart rate 2024 21:08:00 98 /min [facility] Body temperature 2024 21:08:00 36.56 Purvi [facility] Respiratory rate 2024 21:08:00 18 /min [facility] Oxygen saturation in Arterial blood by Pulse oximetry 2024 21:08:00 100 /min [facility] Body height 2024 19:22:00 170.2 cm [facility] Body weight 2024 19:22:00 54.432 kg [facility] BMI 2024 19:22:00 18.79 kg/m2 [facility] Body height 2024-01-23 16:10:00 170.2 cm [facility] Body weight 2024-01-23 16:10:00 54.84 kg [facility] BMI 2024-01-23 16:10:00 18.94 kg/m2 [facility] Body height 2024-01-03 15:39:00 170.2 cm [facility] Body weight 2024-01-03 15:39:00 55.974 kg [facility] BMI 2024-01-03 15:39:00 19.33 kg/m2 [facility] Body weight 2023-12-28 01:00:00 54.432 kg [facility] BMI 2023-12-28 01:00:00 18.79 kg/m2 [facility] Systolic blood pressure 2023-12-27 23:55:00 113 mm[Hg] [facility] Diastolic blood pressure 2023-12-27 23:55:00 80 mm[Hg] [facility] Heart rate 2023-12-27 23:55:00 92 /min [facility] 2023-12-27 23:55:00 18 /min [facility] Oxygen saturation in Arterial blood by Pulse oximetry 2023-12-27 23:55:00 100 /min [facility] Body temperature 2023-12-27 20:34:00 37.17 Purvi [facility] Systolic blood pressure 2023-12-16 11:22:00 109 mm[Hg] [facility] Diastolic blood pressure 2023-12-16 11:22:00 77 mm[Hg] [facility] Heart rate 2023-12-16 11:22:00 110 /min [facility] Body temperature 2023-12-16 11:22:00 36.72 Purvi [facility] Respiratory rate 2023-12-16 11:22:00 20 /min [facility] Body height 2023-12-16 11:22:00 170.2 cm [facility] Body weight 2023-12-16 11:22:00 54.432 kg [facility] BMI 2023-12-16 11:22:00 18.79 kg/m2 [facility] Oxygen saturation in Arterial blood by Pulse oximetry 2023-12-16 11:22:00 100 /min [facility] Systolic blood pressure 2023-12-08 22:00:00 122 mm[Hg] [facility] Diastolic blood pressure 2023-12-08 22:00:00 80 mm[Hg] [facility] Heart rate 2023-12-08 22:00:00 130 /min [facility] Body temperature 2023-12-08 22:00:00 36.67 Purvi [facility] Respiratory rate 2023-12-08 22:00:00 18 /min [facility] Oxygen saturation in Arterial blood by Pulse oximetry 2023-12-08 22:00:00 100 /min [facility] Body height 2023-12-08 19:10:00 170.2 cm [facility] Body weight 2023-12-08 19:10:00 53.071 kg [facility] BMI 2023-12-08 19:10:00 18.32 kg/m2 [facility] Systolic blood pressure 2023-12-06 10:00:00 112 mm[Hg] [facility] Diastolic blood pressure 2023-12-06 10:00:00 78 mm[Hg] [facility] Heart rate 2023-12-06 09:21:07 116 /min [facility] Respiratory rate 2023-12-06 09:21:07 20 /min [facility] Oxygen saturation in Arterial blood by Pulse oximetry 2023-12-06 09:21:07 100 /min [facility] Body temperature 2023-12-06 01:47:00 36.67 Purvi [facility] Body height 2023-12-06 01:47:00 170.2 cm [facility] Body weight 2023-12-06 01:47:00 53.071 kg [facility] BMI 2023-12-06 01:47:00 18.32 kg/m2 [facility] Systolic blood pressure 2023-12-05 05:00:00 114 mm[Hg] [facility] Diastolic blood pressure 2023-12-05 05:00:00 83 mm[Hg] [facility] Heart rate 2023-12-05 05:00:00 116 /min [facility] Respiratory rate 2023-12-05 05:00:00 20 /min [facility] Oxygen saturation in Arterial blood by Pulse oximetry 2023-12-05 05:00:00 96 /min [facility] Body temperature 2023-12-05 02:52:00 36.94 Purvi [facility] Body height 2023-12-05 02:52:00 170.2 cm [facility] Body weight 2023-12-05 02:52:00 53.116 kg [facility] BMI 2023-12-05 02:52:00 18.34 kg/m2 [facility] Systolic blood pressure 2023-11-22 21:46:12 99 mm[Hg] [facility] Diastolic blood pressure 2023-11-22 21:46:12 57 mm[Hg] [facility] Heart rate 2023-11-22 21:46:12 99 /min [facility] Body temperature 2023-11-22 21:46:12 37.17 Purvi [facility] Respiratory rate 2023-11-22 21:46:12 16 /min [facility] Oxygen saturation in Arterial blood by Pulse oximetry 2023-11-22 21:46:12 97 /min [facility] Body height 2023-11-22 17:01:00 170.2 cm [facility] Body weight 2023-11-22 17:01:00 53.071 kg [facility] BMI 2023-11-22 17:01:00 18.32 kg/m2 [facility] Systolic blood pressure 2023-11-10 06:38:05 124 mm[Hg] [facility] Diastolic blood pressure 2023-11-10 06:38:05 99 mm[Hg] [facility] Heart rate 2023-11-10 06:38:05 99 /min [facility] Body temperature 2023-11-10 06:38:05 36.67 Purvi [facility] Respiratory rate 2023-11-10 06:38:05 16 /min [facility] Oxygen saturation in Arterial blood by Pulse oximetry 2023-11-10 06:38:05 99 /min [facility] Body height 2023-11-10 03:34:00 170.2 cm [facility] Body weight 2023-11-10 03:34:00 47.628 kg [facility] BMI 2023-11-10 03:34:00 16.45 kg/m2 [facility] Systolic blood pressure 2023-11-09 12:26:00 119 mm[Hg] [facility] Diastolic blood pressure 2023-11-09 12:26:00 84 mm[Hg] [facility] Heart rate 2023-11-09 12:26:00 103 /min [facility] Body temperature 2023-11-09 12:26:00 36.89 Purvi [facility] Respiratory rate 2023-11-09 12:26:00 20 /min [facility] Oxygen saturation in Arterial blood by Pulse oximetry 2023-11-09 12:26:00 100 /min [facility] Body weight 2023-11-09 08:29:00 53.479 kg [facility] BMI 2023-11-09 08:29:00 18.47 kg/m2 [facility] Body height 2023-11-06 21:32:00 170.2 cm [facility] Systolic blood pressure 2023-10-28 17:30:00 104 mm[Hg] [facility] Diastolic blood pressure 2023-10-28 17:30:00 78 mm[Hg] [facility] Heart rate 2023-10-28 17:30:00 112 /min [facility] Body temperature 2023-10-28 17:30:00 37.06 Purvi [facility] Respiratory rate 2023-10-28 17:30:00 20 /min [facility] Oxygen saturation in Arterial blood by Pulse oximetry 2023-10-28 17:30:00 99 /min [facility] Body height 2023-10-28 03:09:00 170.2 cm [facility] Body weight 2023-10-28 03:09:00 52.164 kg [facility] BMI 2023-10-28 03:09:00 18.01 kg/m2 [facility] Systolic blood pressure 2023-10-19 16:14:00 120 mm[Hg] [facility] Diastolic blood pressure 2023-10-19 16:14:00 87 mm[Hg] [facility] Heart rate 2023-10-19 16:14:00 98 /min [facility] Body temperature 2023-10-19 16:14:00 37.67 Purvi [facility] Respiratory rate 2023-10-19 16:14:00 18 /min [facility] Oxygen saturation in Arterial blood by Pulse oximetry 2023-10-19 16:14:00 98 /min [facility] Body height 2023-10-19 15:44:00 170.2 cm [facility] Body weight 2023-10-19 15:44:00 52.164 kg [facility] BMI 2023-10-19 15:44:00 18.01 kg/m2 [facility] Systolic blood pressure 2023-10-19 00:36:06 120 mm[Hg] [facility] Diastolic blood pressure 2023-10-19 00:36:06 89 mm[Hg] [facility] Heart rate 2023-10-19 00:36:06 129 /min [facility] Respiratory rate 2023-10-19 00:36:06 15 /min [facility] Oxygen saturation in Arterial blood by Pulse oximetry 2023-10-19 00:36:06 96 /min [facility] Body temperature 2023-10-19 00:32:00 37.11 Purvi [facility] Body height 2023-10-19 00:32:00 170.2 cm [facility] Body weight 2023-10-19 00:32:00 52.164 kg [facility] BMI 2023-10-19 00:32:00 18.01 kg/m2 [facility] Systolic blood pressure 2023-09-21 16:40:00 125 mm[Hg] [place] [facility] Diastolic blood pressure 2023-09-21 16:40:00 89 mm[Hg] [facility] Heart rate 2023-09-21 16:40:00 92 /min [facility] Body temperature 2023-09-21 16:40:00 36.11 Purvi [facility] Respiratory rate 2023-09-21 16:40:00 19 /min [facility] Oxygen saturation in Arterial blood by Pulse oximetry 2023-09-21 16:40:00 98 /min [facility] Body weight 2023-09-21 07:35:00 52.98 kg [facility] BMI 2023-09-21 07:35:00 18.29 kg/m2 [facility] Body height 2023-09-19 16:50:00 170.2 cm [facility] Systolic blood pressure 2023-09-15 18:00:00 136 mm[Hg] [facility] Diastolic blood pressure 2023-09-15 18:00:00 95 mm[Hg] [facility] Heart rate 2023-09-15 18:00:00 94 /min [facility] Body temperature 2023-09-15 18:00:00 36.83 Purvi [facility] Respiratory rate 2023-09-15 18:00:00 10 /min [facility] Oxygen saturation in Arterial blood by Pulse oximetry 2023-09-15 18:00:00 97 /min [facility] Body height 2023-09-15 16:25:00 170.2 cm [facility] Body weight 2023-09-15 16:25:00 53.524 kg [facility] BMI 2023-09-15 16:25:00 18.48 kg/m2 [facility] Systolic blood pressure 2023-09-14 00:00:00 120 mm[Hg] [facility] Diastolic blood pressure 2023-09-14 00:00:00 90 mm[Hg] [facility] Heart rate 2023-09-14 00:00:00 115 /min [facility] Body temperature 2023-09-14 00:00:00 37.06 Purvi [facility] Oxygen saturation in Arterial blood by Pulse oximetry 2023-09-14 00:00:00 98 /min [facility] Respiratory rate 2023-09-13 23:03:00 16 /min [facility] Body height 2023-09-13 23:03:00 170.2 cm [facility] Body weight 2023-09-13 23:03:00 53.524 kg [facility] BMI 2023-09-13 23:03:00 18.48 kg/m2 [facility] height 2023-06-11 10:30:00 67 [in_i] Commo n [facility] weight 2023-06-11 10:30:00 110 [lb_av] Comm on [facility] bmi 2023-06-11 10:30:00 17.23 kg/m2 Comm on [facility] Systolic blood pressure 2023-04-30 20:12:00 129 mm[Hg] [facility] Diastolic blood pressure 2023-04-30 20:12:00 87 mm[Hg] [facility] Heart rate 2023-04-30 20:12:00 118 /min [facility] Body temperature 2023-04-30 20:12:00 36.72 Purvi [facility] Respiratory rate 2023-04-30 20:12:00 14 /min [facility] Body weight 2023-04-30 20:12:00 48.988 kg [facility] BMI 2023-04-30 20:12:00 16.92 kg/m2 [facility] Oxygen saturation in Arterial blood by Pulse oximetry 2023-04-30 20:12:00 100 /min [facility] Systolic blood pressure 2023-04-27 15:00:00 114 mm[Hg] [facility] Diastolic blood pressure 2023-04-27 15:00:00 86 mm[Hg] [facility] Heart rate 2023-04-27 15:00:00 105 /min [facility] Oxygen saturation in Arterial blood by Pulse oximetry 2023-04-27 15:00:00 99 /min [facility] Respiratory rate 2023-04-27 12:00:00 18 /min [facility] Body temperature 2023-04-27 10:00:00 36 Purvi [facility] Body weight 2023-04-27 10:00:00 49.487 kg [facility] BMI 2023-04-27 10:00:00 17.09 kg/m2 [facility] Body height 2023-04-24 21:18:00 170.2 cm [facility] height 2023-03-06 13:10:00 67 [in_i] Commo n [facility] weight 2023-03-06 13:10:00 110 [lb_av] Comm on [facility] bmi 2023-03-06 13:10:00 17.23 kg/m2 Comm on [facility] blood pressure systolic 2023-03-06 13:10:00 129 mm[Hg] [facility] blood pressure diastolic 2023-03-06 13:10:00 84 mm[Hg] Common [facility] height 2023-01-04 09:20:00 67 [in_i] Commo n [facility] weight 2023-01-04 09:20:00 110 [lb_av] Comm on [facility] bmi 2023-01-04 09:20:00 17.23 kg/m2 Comm on [facility] blood pressure systolic 2023-01-04 09:20:00 123 mm[Hg] Common [facility] blood pressure diastolic 2023-01-04 09:20:00 70 mm[Hg] Common [facility] Systolic blood pressure 2022-12-12 14:09:00 135 mm[Hg] [facility] Diastolic blood pressure 2022-12-12 14:09:00 89 mm[Hg] [facility] Heart rate 2022-12-12 14:08:00 123 /min [facility] Body temperature 2022-12-12 14:08:00 36.83 Purvi [facility] Respiratory rate 2022-12-12 14:08:00 14 /min [facility] Body weight 2022-12-12 14:08:00 48.535 kg [facility] BMI 2022-12-12 14:08:00 16.76 kg/m2 [facility] Oxygen saturation in Arterial blood by Pulse oximetry 2022-12-12 14:08:00 99 /min [facility] Systolic blood pressure 2022-11-13 20:53:00 121 mm[Hg] [facility] Diastolic blood pressure 2022-11-13 20:53:00 83 mm[Hg] [facility] Heart rate 2022-11-13 20:53:00 108 /min [facility] Body temperature 2022-11-13 20:53:00 37.06 Purvi [facility] Respiratory rate 2022-11-13 20:53:00 18 /min [facility] Oxygen saturation in Arterial blood by Pulse oximetry 2022-11-13 20:53:00 100 /min [facility] Body height 2022-11-11 01:42:00 170.2 cm [facility] Body weight 2022-11-11 01:42:00 47.174 kg [facility] BMI 2022-11-11 01:42:00 16.29 kg/m2 [facility] Systolic blood pressure 2022-11-07 16:10:00 146 mm[Hg] [facility] Diastolic blood pressure 2022-11-07 16:10:00 89 mm[Hg] [facility] Heart rate 2022-11-07 16:10:00 96 /min [facility] Body temperature 2022-11-07 16:10:00 36.39 Purvi [facility] Respiratory rate 2022-11-07 16:10:00 16 /min [facility] Oxygen saturation in Arterial blood by Pulse oximetry 2022-11-07 16:10:00 98 /min [facility] Body weight 2022-11-07 08:47:00 48.988 kg [facility] BMI 2022-11-07 08:47:00 16.92 kg/m2 [facility] Body height 2022-11-06 11:23:00 170.2 cm [facility] height 2022-10-30 16:50:00 67 [in_i] [facility] weight 2022-10-30 16:50:00 99 [lb_av] [facility] bmi 2022-10-30 16:50:00 15.5 kg/m2 [facility] blood pressure systolic 2022-10-30 16:50:00 121 mm[Hg] Common [facility] blood pressure diastolic 2022-10-30 16:50:00 70 mm[Hg] [facility] Systolic blood pressure 2022-08-28 01:39:00 125 mm[Hg] [facility] Diastolic blood pressure 2022-08-28 01:39:00 96 mm[Hg] [facility] Heart rate 2022-08-28 01:39:00 95 /min [facility] Body temperature 2022-08-28 01:39:00 36.5 Purvi [facility] Respiratory rate 2022-08-28 01:39:00 16 /min [facility] Body height 2022-08-28 01:39:00 170.2 cm [facility] Body weight 2022-08-28 01:39:00 47.628 kg [facility] BMI 2022-08-28 01:39:00 16.45 kg/m2 [facility] Oxygen saturation in Arterial blood by Pulse oximetry 2022-08-28 01:39:00 100 /min [facility] height 2022-07-31 16:20:00 67 [in_i] Commo n [facility] weight 2022-07-31 16:20:00 98 [lb_av] Commo n [facility] bmi 2022-07-31 16:20:00 15.35 kg/m2 Comm on [facility] blood pressure systolic 2022-07-31 16:20:00 120 mm[Hg] [facility] blood pressure diastolic 2022-07-31 16:20:00 74 mm[Hg] [facility] height 2022-06-01 08:50:00 67 [in_i] Commo n [facility] weight 2022-06-01 08:50:00 96.9 [lb_av] Com [facility] temperature 2022-06-01 08:50:00 96.8 [degF] Com [facility] bmi 2022-06-01 08:50:00 15.18 kg/m2 Comm on [facility] oximetry 2022-06-01 08:50:00 99 % Commo n [facility] respiratory rate 2022-06-01 08:50:00 18 /min [facility] blood pressure systolic 2022-06-01 08:50:00 118 mm[Hg] [facility] blood pressure diastolic 2022-06-01 08:50:00 77 mm[Hg] [facility] Systolic blood pressure 2022-04-13 01:48:00 138 mm[Hg] [facility] Diastolic blood pressure 2022-04-13 01:48:00 91 mm[Hg] [facility] Heart rate 2022-04-13 01:48:00 81 /min [facility] Respiratory rate 2022-04-13 01:48:00 16 /min [facility] Oxygen saturation in Arterial blood by Pulse oximetry 2022-04-13 01:48:00 98 /min [facility] Body temperature 2022-04-12 21:03:00 36.72 Purvi [facility] Body weight 2022-04-12 21:03:00 45.36 kg [facility] BMI 2022-04-12 21:03:00 15.66 kg/m2 [facility] Systolic blood pressure 2022-04-09 05:47:00 138 mm[Hg] [facility] Diastolic blood pressure 2022-04-09 05:47:00 104 mm[Hg] [facility] Heart rate 2022-04-09 05:47:00 112 /min [facility] Body temperature 2022-04-09 05:47:00 36.61 Purvi [facility] Respiratory rate 2022-04-09 05:47:00 16 /min [facility] Body height 2022-04-09 05:47:00 170.2 cm [facility] Body weight 2022-04-09 05:47:00 45.36 kg [facility] BMI 2022-04-09 05:47:00 15.66 kg/m2 [facility] Oxygen saturation in Arterial blood by Pulse oximetry 2022-04-09 05:47:00 100 /min [facility] Systolic blood pressure 2022-04-05 20:08:00 149 mm[Hg] [facility] Diastolic blood pressure 2022-04-05 20:08:00 114 mm[Hg] [facility] Heart rate 2022-04-05 20:08:00 108 /min [facility] Body temperature 2022-04-05 20:08:00 36.61 Purvi [facility] Respiratory rate 2022-04-05 20:08:00 16 /min [facility] Body height 2022-04-05 20:08:00 170.2 cm [facility] Body weight 2022-04-05 20:08:00 45.36 kg [facility] BMI 2022-04-05 20:08:00 15.66 kg/m2 [facility] Oxygen saturation in Arterial blood by Pulse oximetry 2022-04-05 20:08:00 100 /min [facility] height 2022-03-02 07:50:00 67 [in_i] Commo n [facility] weight 2022-03-02 07:50:00 105 [lb_av] Comm on [facility] temperature 2022-03-02 07:50:00 98 [degF] Comm on [facility] bmi 2022-03-02 07:50:00 16.44 kg/m2 Comm on [facility] blood pressure systolic 2022-03-02 07:50:00 120 mm[Hg] [facility] blood pressure diastolic 2022-03-02 07:50:00 76 mm[Hg] [facility] height 2022-01-02 11:40:00 67 [in_i] Commo n [facility] weight 2022-01-02 11:40:00 105 [lb_av] Comm on [facility] bmi 2022-01-02 11:40:00 16.44 kg/m2 Comm on [facility] blood pressure systolic 2022-01-02 11:40:00 125 mm[Hg] [facility] blood pressure diastolic 2022-01-02 11:40:00 76 mm[Hg] [facility] Systolic blood pressure 2021-12-04 20:56:00 124 mm[Hg] [facility] Diastolic blood pressure 2021-12-04 20:56:00 89 mm[Hg] [facility] Heart rate 2021-12-04 20:56:00 156 [facility] 2021-12-04 20:56:00 170.2 cm [facility] Body weight 2021-12-04 20:56:00 46.72 kg [facility] BMI 2021-12-04 20:56:00 16.13 kg/m2 [facility] height 2021-10-17 08:00:00 67 [in_i] Commo n [facility] weight 2021-10-17 08:00:00 109 [lb_av] Comm on [facility] temperature 2021-10-17 08:00:00 98 [degF] Comm on [facility] bmi 2021-10-17 08:00:00 17.07 kg/m2 Comm on [facility] blood pressure systolic 2021-10-17 08:00:00 130 mm[Hg] [facility] blood pressure diastolic 2021-10-17 08:00:00 80 mm[Hg] [facility] height 2021-10-05 08:30:00 67 [in_i] Commo n [facility] weight 2021-10-05 08:30:00 109.1 [lb_av] Co mmon [facility] temperature 2021-10-05 08:30:00 97.7 [degF] Com mon [facility] bmi 2021-10-05 08:30:00 17.09 kg/m2 Comm on [facility] oximetry 2021-10-05 08:30:00 100 % Commo n [facility] respiratory rate 2021-10-05 08:30:00 18 /min Common [facility] blood pressure systolic 2021-10-05 08:30:00 137 mm[Hg] [facility] blood pressure diastolic 2021-10-05 08:30:00 89 mm[Hg] [facility] height 2021-07-13 15:00:00 67 [in_i] Commo n [facility] weight 2021-07-13 15:00:00 103.5 [lb_av] Co mmon [facility] temperature 2021-07-13 15:00:00 97.9 [degF] Com mon [facility] bmi 2021-07-13 15:00:00 16.21 kg/m2 Comm on [facility] oximetry 2021-07-13 15:00:00 100 % Commo n [facility] respiratory rate 2021-07-13 15:00:00 17 /min Common [facility] blood pressure systolic 2021-07-13 15:00:00 129 mm[Hg] [facility] blood pressure diastolic 2021-07-13 15:00:00 85 mm[Hg] [facility] height 2021-05-19 11:10:00 67 [in_i] Commo n [facility] weight 2021-05-19 11:10:00 107 [lb_av] Comm on [facility] temperature 2021-05-19 11:10:00 97.5 [degF] Com mon [facility] bmi 2021-05-19 11:10:00 16.76 kg/m2 Comm on [facility] height 2021-03-21 11:30:00 67 [in_i] Commo n [facility] weight 2021-03-21 11:30:00 107 [lb_av] Comm on [facility] temperature 2021-03-21 11:30:00 98 [degF] Comm on [facility] bmi 2021-03-21 11:30:00 16.76 kg/m2 Comm on [facility] blood pressure systolic 2021-03-21 11:30:00 125 mm[Hg] [facility] blood pressure diastolic 2021-03-21 11:30:00 75 mm[Hg] [facility] height 2021-01-09 16:40:00 67 [in_i] Commo n [facility] weight 2021-01-09 16:40:00 105 [lb_av] Comm on [facility] temperature 2021-01-09 16:40:00 98.5 [degF] Com mon [facility] bmi 2021-01-09 16:40:00 16.44 kg/m2 Comm on [facility] Procedures Procedure Date / Time Performed Performing Clinician Source CT ANGIOGRAM HEAD 2024-04-05 06:45:52 Michelle Patiño [facility] CT ANGIOGRAM NECK 2024-04-05 06:45:52 Michelle Patiño [facility] XR CHEST 1 VW 2024-04-05 06:43:02 Haroon [facility] URINE DRUG (IMMUNOASSAY) - COMPREHENSIVE DRUG SCREEN 2024-04-05 05:37[facility]05 05:37:00 Michelle Patiño [facility] LIPASE 2024-04-05 05:22:00 Michelle Patiño [facility] TEST, SERUM 2024-04-05 05:22:00 Sarai Patiño [facility] TROPONIN I 2024-04-05 05:22:00 Michelle Patiño [facility] COMP. METABOLIC PANEL ([id number]) 2024-04-05 05:22[facility]-04-05 05:22:00 Michelle Patiño [facility] CBC WITH DIFF 2024-04-05 05:22:00 Haroon [facility] PROTHROMBIN TIME / INR 2024-04-05 05:22:00 Sadiq Patiño [facility] ED LACERATION REPAIR 2024-03-31 03:15:23 Vincent Hernandez [facility] CT MAXILLOFACIAL/MANDIBLE WO CONTRAST 2024-03-31 01:22:29 Valeria Hernandez [facility] CT TRAUMA HEAD WO CONTRAST 2024-03-31 01:22:29 Valeria Hernandez [facility] RAPID STREP SCREEN FOR GROUP A 2024 20:21:00 Reji Johansen [facility] POCT TEST 2024 20:17:00 Reji Johansen [facility] XR WRIST 3+ VW RIGHT 2024-01-03 15:50:47 González Ross [facility] POCT TEST 2023-12-08 20:33:00 Madhuri Cabrera [facility] URINALYSIS 2023-12-08 20:04:00 Krista Cabrera [facility] URINE DRUG (IMMUNOASSAY) - COMPREHENSIVE DRUG SCREEN W/O REFLEX 2023-12-08 20:04:00 Krista Cabrera [facility] AC PANEL 21 + LACTIC ACID 2023-12-08 19:29:00 Krista Cabrear [facility] LIPASE 2023-12-08 19:21:00 Krista Cabrera [facility] MAGNESIUM 2023-12-08 19:21:00 Krista Cabrera [facility] COMP. METABOLIC PANEL ([id number]) 2023-12-08 19:21[facility] 2023-12-08 19:21:00 Krista Cabrera [facility] CBC WITH DIFF 2023-12-08 19:21:00 Krista Cabrera [facility] ETHANOL 2023-12-06 08:39:00 Trino Ashford [facility] COMP. METABOLIC PANEL ([id number]) 2023-12-06 02:31:00 Bashir [facility] ETHANOL 2023-12-06 02:31:00 Valeria Hernandez [facility] CBC WITH DIFF 2023-12-06 02:31:00 Bashir [facility] POCT TEST 2023-12-05 03:09:00 Jonelle Connell [facility] TEST, URINE 2023-12-05 03:01:00 Romana Connell [facility] COMP. METABOLIC PANEL ([id number]) 2023-12-05 03:01:00 Jonelle Connell [facility] SALICYLATE 2023-12-05 03:01:00 Jonelle Connell [facility] ETHANOL 2023-12-05 03:01:00 Luisito Jonelle [facility] CBC WITH DIFF 2023-12-05 03:01:00 Jonelle Connell [facility] URINALYSIS 2023-12-05 03:01:00 Luisito Jonelle [facility] URINE DRUG (IMMUNOASSAY) - COMPREHENSIVE DRUG SCREEN W/O REFLEX 2023-12-05 03:01:00 Luisito [facility] CT CERVICAL SPINE WO CONTRAST 2023-11-22 18:24:35 Nba Balderas [facility] CT HEAD WO CONTRAST 2023-11-22 18:24:35 Dalton Balderas [facility] LIPASE 2023-11-22 17:12:00 [facility] 2023-11-22 17:12:00 Nba Balderas Un [facility] COMP. METABOLIC PANEL ([id number]) 2023-11-22 17:12:00 Nba Balderas [facility] TOTAL BETA HCG ASSAY 2023-11-22 17:12:00 Hany Balderas [facility] ETHANOL 2023-11-22 17:12:00 [facility]FF 2023-11-22 17:12:00 [facility]ER 2023-11-22 17:12:00 [facility] INFLUENZA A/B RSV COVID NAAT 2023-11-10 04:53:00 Alyssia Miranda [facility] POCT TEST 2023-11-10 04:25:00 Alyssia Montelongo [facility] URINALYSIS 2023-11-10 04:21:00 Alyssia Miranda [facility] URINE DRUG (IMMUNOASSAY) - COMPREHENSIVE DRUG SCREEN W/O REFLEX 2023-11-10 04:21:00 Alyssia Miranda [facility] CREATINE KINASE 2023-11-10 04:14:00 Alyssia Miranda [facility] THYROID STIMULATING HORMONE 2023-11-10 04:14:00 Alyssia Miranda [facility] COMP. METABOLIC PANEL ([id number]) 2023-11-10 04:14:00 Alyssia Miranda [facility] SALICYLATE 2023-11-10 04:14:00 Alyssia Miranda Lea [facility] ETHANOL 2023-11-10 04:14:00 Alyssia [facility] CBC WITH DIFF 2023-11-10 04:14:00 Alyssia Miranda Lea [facility] PHOSPHORUS 2023-11-09 10:12:00 Solo Devi [facility] MAGNESIUM 2023-11-09 10:12:00 Marito [facility] HEPATIC FUNCTION PANEL (60031) (ALB,T.PRO,BILI T,BU/BC,ALT,AST,ALK PHOS) 2023-11-09 10:12:00 [facility] (NA, K, CL, CO2, GLUCOSE, BUN, CREATININE, CA) 2023-11-09 10:12:00 [facility] WITHOUT DIFF 2023-11-09 10:12:00 [facility] 2023-11-08 20:35:00 William Castorena [facility] MAGNESIUM 2023-11-08 20:35:00 William Castorena [facility] BASIC METABOLIC PANEL (NA, K, CL, CO2, GLUCOSE, BUN, CREATININE, CA) 2023-11-08 20:35:00 William Castorena [facility] CT HEAD WO CONTRAST 2023-11-08 10:42:52 William Castorena [facility] PHOSPHORUS 2023-11-08 08:59:00 Marito [facility] MAGNESIUM 2023-11-08 08:59:00 Marito [facility] VITAMIN B12, LEVEL 2023-11-08 08:59:00 Marito [facility] FOLATE 2023-11-08 08:59:00 Marito [facility] HEPATIC FUNCTION PANEL ([id number]) (ALB,T.PRO,BILI T,BU/BC,ALT,AST,ALK PHOS) 2023-11-08 08:59:00 Marito [facility] BASIC METABOLIC PANEL (NA, K, CL, CO2, GLUCOSE, BUN, CREATININE, CA) 2023-11-08 08:59:00 Marito [facility] CBC WITHOUT DIFF 2023-11-08 08:59:00 Solo Devi [facility] HEPATIC FUNCTION PANEL ([id number]) (ALB,T.PRO,BILI T,BU/BC,ALT,AST,ALK PHOS) 2023-11-07 07:22:00 Marito [facility] BASIC METABOLIC PANEL (NA, K, CL, CO2, GLUCOSE, BUN, CREATININE, CA) 2023-11-07 07:22:00 [facility] CBC WITH DIFF 2023-11-07 07:22:00 Eduar Echevarria [facility] LACTIC ACID WHOLE BLOOD 2023-11-07 07:22:00 Nichole Castorena mmad [facility] PHOSPHORUS 2023-11-07 00:58:00 Eduar Echevarria [facility] MAGNESIUM 2023-11-07 00:58:00 Eduar Ecehvarria [facility] ACUTE CARE VENOUS BLOOD GAS 2023-11-07 00:57:00 Eduar Echevarria [facility] LACTIC ACID WHOLE BLOOD 2023-11-07 00:57:00 Kev Echevarria [facility] MRSA / MSSA SCREEN BY SIDRA PAPPAS 2023-11-06 21:48:00 Eduar Echevarria [facility] CRITICAL CARE 2023-11-06 20:43:53 Krista Cabrera [facility] POCT TEST 2023-11-06 19:25:00 Madhuri Cabrera [facility] HB ECG ROUTINE & RHYTHM STRIP 2023-11-06 19:10:21 Krista Cabrera [facility] URINALYSIS 2023-11-06 18:51:00 [facility] URINE DRUG (IMMUNOASSAY) - COMPREHENSIVE DRUG SCREEN W/O REFLEX 2023-11-06 18:51:00 Krista Cabrera [facility] LIPASE 2023-11-06 18:43:00 Krista Cabrera [facility] MAGNESIUM 2023-11-06 18:43:00 Krista Cabrera [facility] TROPONIN I 2023-11-06 18:43:00 Krista Cabrera [facility] COMP. METABOLIC PANEL ([id number]) 2023-11-06 18:43:00 Krista Cabrera [facility] ETHANOL 2023-11-06 18:43:00 Krista Cabrera [facility] CBC WITH DIFF 2023-11-06 18:43:00 Krista Cabrera [facility] N-TERMINAL PRO-BNP 2023-11-06 18:43:00 [facility]EL 21 + LACTIC ACID 2023-11-06 18:43:00 Krista Cabrera [facility] ETHANOL 2023-10-28 16:15:00 Jonelle Connell [facility] ETHANOL 2023-10-28 11:09:00 Trino Ashford [facility] POCT TEST 2023-10-28 03:42:00 Mia Marroquin ra [facility] COMP. METABOLIC PANEL ([id number]) 2023-10-28 03:27:00 Clementina Marroquin [facility] SALICYLATE 2023-10-28 03:27:00 [facility] 2023-10-28 03:27:00 Clement[facility] WITH DIFF 2023-10-28 03:27:00 Clement[facility] URINAL[facility]IS 2023-10-28 03:27:00 Clementina Marroquin Un [facility] INFLUENZA A/B RSV COVID NAAT 2023-10-28 03:27:00 Clementina Marroquin [facility] LAB ONLY COVID INTERPRETATION 2023-10-28 03:27:00 Clementina Marroquin [facility] URINE DRUG (IMMUNOASSAY) - COMPREHENSIVE DRUG SCREEN W/O REFLEX 2023-10-28 03:27:00 Clementina Marroquin [facility] POCT GLUCOSE(AGE >30DAYS) 2023-10-19 15:53:00 Zoë Singletary [facility] POCT GLUCOSE (AUTOMATED) 2023-10-19 15:52:00 Julio Singletary [facility] BASIC METABOLIC PANEL (NA, K, CL, CO2, GLUCOSE, BUN, CREATININE, CA) 2023-09-21 08:28:00 Baldev Braga [facility] PHOSPHORUS 2023-09-20 09:24:00 Solo Devi [facility] LIPASE 2023-09-20 09:24:00 [facility] MAGNESIUM 2023-09-20 09:24:00 Marito [facility] HEPATIC FUNCTION PANEL ([id number]) (ALB,T.PRO,BILI T,BU/BC,ALT,AST,ALK PHOS) 2023-09-20 09:24:00 Solo Devi [facility] BASIC METABOLIC PANEL (NA, K, CL, CO2, GLUCOSE, BUN, CREATININE, CA) 2023-09-20 09:24:00 Marito [facility] CBC WITH DIFF 2023-09-20 09:24:00 Solo Devi [facility] PROTHROMBIN TIME / INR 2023-09-20 09:24:00 Me harleen Frost [facility] D-DIMER 2023-09-20 09:24:00 Santosh [facility] ACTIVATED PARTIAL THRMPLAS DAKOTAH 2023-09-20 09:24:00 Santosh [facility] PROCALCITONIN 2023-09-20 09:24:00 [facility] LACTIC ACID WHOLE BLOOD 2023-09-19 20:59:00 Jose Quintanilla [facility] COVID-19 (ID NOW RAPID TESTING) 2023-09-19 20:58:00 Jose Quintanilla [facility] LAB ONLY COVID INTERPRETATION 2023-09-19 20:58:00 Jose Quintanilla [facility] XR CHEST 1 VW 2023-09-19 17:13:36 Jose Quintanilla [facility] BLOOD CULTURE SCREEN 2023-09-19 17:06:00 Jose Quintanilla [facility] CREATINE KINASE 2023-09-19 17:06:00 [facility] 2023-09-19 17:06:00 Jose Quintanilla [facility] COMP. METABOLIC PANEL ([id number]) 2023-09-19 17:06:00 Jose Quintanilla [facility] CBC WITH DIFF 2023-09-19 17:06:00 Jose Quintanilla [facility] LACTIC ACID WHOLE BLOOD 2023-09-19 17:05:00 Jose Quintanilla [facility] EKG-12 LEAD 2023-09-19 16:54:29 Solo Devi [facility] CT CHEST PULMONARY ANGIOGRAM 2023-09-15 17:19:16 Juan Carlos [facility] POCT TEST 2023-09-15 16:53:00 Viola Rangel [facility] TROPONIN I 2023-09-15 16:49:00 [facility] COMP. METABOLIC PANEL ([id number]) 2023-09-15 16:49:00 Cecile Rangel [facility] CBC WITH DIFF 2023-09-15 16:49:00 Cecile Rangel [facility] D-DIMER 2023-09-15 16:49:00 Cecile Rangel [facility] URINALYSIS 2023-09-15 16:49:00 Cecile Rangel [facility] N-TERMINAL PRO-BNP 2023-09-15 16:49:00 Ria Rangel [facility] LACTIC ACID WHOLE BLOOD 2023-09-15 16:48:00 Vivek Rangel [facility] HB ECG ROUTINE & RHYTHM STRIP 2023-09-15 16:44:45 Cecile Rangel [facility] POCT TEST 2023-09-14 00:14:00 Brenden Olmstead [facility] XR CHEST 2 VW 2023-09-14 00:08:48 Ishan [facility] RAPID STREP SCREEN FOR GROUP A 2023-09-13 23:31:[address] [facility] RAPID INFLUENZA A/B 2023-09-13 23:31:00 Brenden Olmstead [facility] COVID-19 (ID NOW RAPID TESTING) 2023-09-13 23:31:00 Eleno Olmstead [facility] MAGNESIUM 2023-04-27 10:01:00 William Castorena [facility] COMP. METABOLIC PANEL ([id number]) 2023-04-27 10:01:00 William Castorena [facility] CBC WITH DIFF 2023-04-27 10:01:00 [facility] TRANST[facility]ORAC[facility] ECHO (TTE) COMPLETE 2023-04-26 20:20:00 Eduar Echevarria [facility] LIPASE 2023-04-26 11:39:00 William Castorena [facility] MAGNESIUM 2023-04-26 11:39:00 William Castorena [facility] COMP. METABOLIC PANEL ([id number]) 2023-04-26 11:39:00 William Castorena [facility] CBC WITH DIFF 2023-04-26 11:39:00 [facility] PROTHR[facility] / INR 2023-04-26 11:39:00 Nat Castorena [facility] ACTIVATED PARTIAL THRMPLAS DAKOTAH 2023-04-26 11:39:00 William Castorena [facility] URINE DRUG (IMMUNOASSAY) - COMPREHENSIVE DRUG SCREEN 2023-04-25 10:51:00 William Castorena [facility] LIPASE 2023-04-25 10:46:00 William Castorena [facility] MAGNESIUM 2023-04-25 10:46:00 William Castorena [facility] COMP. METABOLIC PANEL ([id number]) 2023-04-25 10:46:00 William Castorena [facility] CBC WITH DIFF 2023-04-25 10:46:00 [facility] / INR 2023-04-25 10:46:00 Nat Castorena [facility] ACTIVATED PARTIAL THRMPLAS DAKOTAH 2023-04-25 10:46:00 William Castorena [facility] N-TERMINAL PRO-BNP 2023-04-25 10:46:00 William Castorena [facility] LACTIC ACID WHOLE BLOOD 2023-04-25 10:46:00 Nichole Castorena mmad [facility] PHOSPHORUS 2023-04-25 04:50:00 William Castorena [facility] CT ABDOMEN PELVIS W CONTRAST 2023-04-25 01:17:35 Jose Quintanilla [facility] URINALYSIS 2023-04-24 23:43:00 Jose Quintanilla [facility] POCT TEST 2023-04-24 23:41:00 Jose Quintanilla e [facility] AMMONIA, PLASMA 2023-04-24 23:32:00 [facility] ROUTINE & RHYTHM STRIP 2023-04-24 22:36:50 Jose Quintanilla [facility] LIPASE 2023-04-24 22:23:00 [facility] 2023-04-24 22:23:00 Jose Quintanilla [facility] COMP. METABOLIC PANEL ([id number]) 2023-04-24 22:23:00 Jose Quintanilla [facility] ETHANOL 2023-04-24 22:23:00 [facility] CBC WITH DIFF 2023-04-24 22:23:00 Jose Quintanilla [facility] PROTHROMBIN TIME / INR 2023-04-24 22:23:00 Jose Quintanilla [facility] ACTIVATED PARTIAL THRMPLAS DAKOTAH 2023-04-24 22:23:00 Jose Quintanilla [facility] CONSENT/REFUSAL FOR DIAGNOSIS AND TREATMENT 2023-04-24 21:03:16 Doctor Unassigned, Storla [facility] XR FOOT 3+ VW LEFT 2022-12-12 14:30:15 [facility] BENEFITS 2022-12-12 14:03:23 Docto r Unassigned, Storla [facility] CONSENT/REFUSAL FOR DIAGNOSIS AND TREATMENT 2022-12-12 14:03:11 Doctor Unassigned, Storla [facility] PHOSPHORUS 2022-11-13 10:22:00 Johanna [facility] MAGNESIUM 2022-11-13 10:22:00 Heyworth [facility] BASIC METABOLIC PANEL (NA, K, CL, CO2, GLUCOSE, BUN, CREATININE, CA) 2022-11-13 10:22:00 Heyworth [facility] CBC WITHOUT DIFF 2022-11-13 10:22:00 Heyworth [facility] POCT GLUCOSE (AUTOMATED) 2022-11-12 23:12:00 Juan Cardoso [facility] MAGNESIUM 2022-11-12 09:47:00 Myles Santillan [facility] BASIC METABOLIC PANEL (NA, K, CL, CO2, GLUCOSE, BUN, CREATININE, CA) 2022-11-12 09:47:00 Myles Santillan [facility] CBC WITH DIFF 2022-11-12 09:47:00 Myles Santillan [facility] POCT GLUCOSE (AUTOMATED) 2022-11-11 18:34:00 Sadiq Robertson [facility] POCT GLUCOSE (AUTOMATED) 2022-11-11 17:51:00 Sadiq Robertson [facility] POCT GLUCOSE (AUTOMATED) 2022-11-11 12:16:00 Sadiq Robertson [facility] LIPASE 2022-11-11 09:43:00 Isael Olmedo [facility] MAGNESIUM 2022-11-11 09:43:00 Yasir Chaney [facility] COMP. METABOLIC PANEL ([id number]) 2022-11-11 09:43:00 Isael Olmedo [facility] CBC WITH DIFF 2022-11-11 09:43:00 Isael Olmedo [facility] MRSA / MSSA SCREEN BY PCR, SIDRA 2022-11-11 01:32:00 Jeremy Velez [facility] LIPASE 2022-11-10 22:21:00 Adelina Judge [facility] FOLATE 2022-11-10 22:21:00 Isael Olmedo [facility] TEST, SERUM 2022-11-10 22:21:00 Jason Judge [facility] COMP. METABOLIC PANEL ([id number]) 2022-11-10 22:21:00 Adelina Judge [facility] ETHANOL 2022-11-10 22:21:00 Adelina Judge [facility] CBC WITH DIFF 2022-11-10 22:21:00 Adelina Judge [facility] CONSENT/REFUSAL FOR DIAGNOSIS AND TREATMENT 2022-11-10 21:39:27 Doctor Unassigned, Storla [facility] CRITICAL CARE 2022-11-10 21:38:00 Slim Topete [facility] LIPASE 2022-11-07 09:37:00 William Castorena [facility] MAGNESIUM 2022-11-07 09:37:00 William Castorena [facility] HEPATIC FUNCTION PANEL ([id number]) (ALB,T.PRO,BILI T,BU/BC,ALT,AST,ALK PHOS) 2022-11-07 09:37:00 William Castorena [facility] BASIC METABOLIC PANEL (NA, K, CL, CO2, GLUCOSE, BUN, CREATININE, CA) 2022-11-07 09:37:00 William Castorena [facility] LIPID PANEL ([id number])(TOTAL CHOLESTEROL, TRIGLYCERIDES, HDL) 2022-11-07 09:37:00 William Castorena [facility] CBC WITH DIFF 2022-11-07 09:37:00 [facility] / INR 2022-11-07 09:37:00 Nat Castorena [facility] ACTIVATED PARTIAL THRMPLAS DAKOTAH 2022-11-07 09:37:00 William Castorena [facility] US GALL BLADDER 2022-11-06 09:32:53 Carlos A Lopez [facility] CT ABDOMEN PELVIS W CONTRAST 2022-11-06 06:57:00 Zoë Singletary [facility] LIPASE 2022-11-06 06:32:00 Zoë Singletary [facility] COMP. METABOLIC PANEL ([id number]) 2022-11-06 06:32:00 Zoë Singletary [facility] ETHANOL 2022-11-06 06:32:00 Carlos A Lopez [facility] CBC WITH DIFF 2022-11-06 06:32:00 Zoë Singletary [facility] URINALYSIS 2022-11-06 06:18:00 Zoë Singletary [facility] POCT TEST 2022-11-06 06:18:00 Zoë Singletary [facility] CONSENT/REFUSAL FOR DIAGNOSIS AND TREATMENT 2022-11-06 06:01:51 Doctor Unassigned, Storla [facility] POCT TEST 2022-08-28 02:47:00 Nick Best [facility] NOTICE OF PRIVACY PRACTICES 2022-08-28 01:31:41 Doctor Unassigned, Storla [facility] CONSENT/REFUSAL FOR DIAGNOSIS AND TREATMENT 2022-08-28 01:30:51 Doctor Unassigned, Storla [facility] BASIC METABOLIC PANEL (NA, K, CL, CO2, GLUCOSE, BUN, CREATININE, CA) 2022-04-13 00:10:00 Lacey Suggs [facility] CBC WITH DIFF 2022-04-13 00:10:00 Lacey Suggs [facility] CONSENT/REFUSAL FOR DIAGNOSIS AND TREATMENT 2022-04-12 21:08:37 Doctor Unassigned, Storla [facility] CONSENT/REFUSAL FOR DIAGNOSIS AND TREATMENT 2022-04-09 05:40:38 Doctor Unassigned, Storla [facility] BASIC METABOLIC PANEL (NA, K, CL, CO2, GLUCOSE, BUN, CREATININE, CA) 2022-04-05 22:24:00 Baldev Alarcon [facility] CBC WITH DIFF 2022-04-05 22:24:00 Baldev Alarcon [facility] CONSENT/REFUSAL FOR DIAGNOSIS AND TREATMENT 2022-04-05 19:50:28 Doctor Unassigned, Storla [facility] Encounters Start Date/Time End Date/Time Encounter Type Admission Type Attending Clinicians Care Facility Care Department Encounter ID Source 2023-03-06 08:02:00 [facility] [id number] [facility] 2023-03-05 10:16:00 [facility] [id number] [facility] 2023-03-04 11:18:00 [facility] [id number] [facility] 2022-07-27 10:23:00 Outpatient Malagon, Liz STLMLC STLC [id number] [facility] 2022-06-13 14:55:45 Outpatient [facility] [id number] [facility] 2022-05-30 09:48:00 Outpatient Malagon, Liz STLC STLC [id number] [facility] 2021-11-13 13:38:00 Outpatient Malagon, Liz STLC STLC [id number] [facility] 2021-11-10 10:45:18 Outpatient CATHIE GONZALEZ [facility] [id number] [facility] 2021-11-09 09:43:50 Outpatient CATHIE GONZALEZ [facility] [id number] [facility] 2021-11-08 16:22:13 Outpatient CATHIE GONZALEZ [facility] [id number] [facility] 2021-05-17 14:17:09 Outpatient Malagon, Liz STLC STLC [id number] [facility] 2021-05-17 13:50:42 Outpatient Malagon, Liz STLC STLC [id number] [facility] 2021-05-17 13:50:27 Outpatient Malagon, Liz STLC STLMLC [id number] [facility] 2021-05-17 13:28:45 Outpatient Malagon, Liz STLC STLC [id number] [facility] 2021-05-17 12:51:57 Outpatient Malagon, Liz STLC STLMLC [id number] [facility] 2021-05-17 12:45:56 Outpatient Malagon, Liz STLC STLMLC [id number] [facility] 2021-05-17 12:39:56 Outpatient Malagon, Liz STLC STLMLC [id number] [facility] 2021-05-17 12:39:35 Outpatient Malagon, Liz STLMLC STLMLC [id number] [facility] 2021-05-17 12:38:37 Outpatient Malagon, Liz STLMLC STLMLC [id number] [facility] 2021-05-17 12:33:47 Outpatient Malagon, Liz STLMLC STLMLC [id number] [facility] 2021-05-17 12:32:33 Outpatient Malagon, Liz STLMLC STLMLC [id number] [facility] 2021-05-17 12:29:13 Outpatient Malagon, Liz STLMLC STLMLC [id number] [facility] 2021-05-17 12:25:07 Outpatient Malagon, Liz STLMLC STLMLC [id number] [facility] 2021-05-17 12:24:31 Outpatient Malagon, Liz STLMLC STLMLC [id number] [facility] 2021-05-17 12:07:53 Outpatient Malagon, Liz STLMLC STLMLC [id number] [facility] 2021-05-17 12:07:23 Outpatient Malagon, Liz STLMLC STLMLC [id number] [facility] 2021-05-17 11:59:39 Outpatient Malagon, Liz STLMLC STLMLC [id number] [facility] 2021-05-17 11:37:35 Outpatient Malagon, Liz STLMLC STLMLC [id number] [facility] 2021-05-17 11:16:40 Outpatient Malagon, Liz STLMLC STLMLC [id number] [facility] 2021-05-17 11:10:01 Outpatient Malagon, Liz STLMLC STLMLC [id number] [facility] 2021-05-17 11:07:07 [facility] [id number] [facility] 2021-05-17 10:59:13 [facility] [id number] [facility] 2021-05-17 10:57:50 [facility] [id number] [facility] 2021-02-19 19:59:15 Emergency [facility] [id number] [facility] 2021-02-19 15:25:26 Emergency [facility] [id number] [facility] 2024-04-04 23:07:00 2024-04-05 03:56:00 Emergency MICHELLE CARPENTER SHINTA [facility] ERT [id number] [facility] 2024-04-04 23:07:00 2024-04-05 03:56:00 Emergency Haroon Michelle [facility] [id number] [facility] 2024-03-30 18:37:00 2024-03-30 21:59:00 Emergency X VALERIA HERNANDEZ [facility] ERT [id number] [facility] 2024-03-30 18:37:00 2024-03-30 21:59:00 Emergency Valeria Hernandez [facility] [id number] [facility] 2024-03-30 03:09:00 2024-03-30 03:49:00 Emergency CLEMENTINA VEGA SANDRA [facility] ERT [id number] [facility] 2024-03-30 03:09:00 2024-03-30 03:49:00 Emergency Clementina Marroquin [facility] [id number] [facility] 2024-02-13 11:15:00 2024-02-13 11:15:00 Outpatient R CATHIE ROSS CRAIG [facility] [id number] [facility] 2024-02-06 11:15:00 2024-02-06 11:15:00 Outpatient R CATHIE ROSS [facility] [id number] [facility] 2024-02-05 13:19:03 2024-02-05 23:59:00 Hospital Encounter Cathie Ross [facility] [id number] [facility] 2024-02-05 13:30:00 2024-02-05 13:37:44 Outpatient R CATHIE ROSS CRAIG [facility] [id number] [facility] 2024-02-05 13:30:00 2024-02-05 13:37:44 Office Visit Cathie Ross [facility] [id number] [facility] 2024 14:24:00 2024 16:14:00 Emergency X REJI JOHANSEN KENT [facility] ERT [id number] [facility] 2024 14:24:00 2024 16:14:00 Emergency Reji Johansen [facility] [id number] [facility] 2024-01-23 11:12:44 2024-01-23 23:59:00 Outpatient O CATHIE ROSS [facility] [id number] [facility] 2024-01-23 11:12:44 2024-01-23 23:59:00 [facility] [id number]..[id number] [id number] 4.2.7.2.686 [id number] [facility] 2024-01-23 11:15:00 2024-01-23 12:12:25 [facility] 1..840.114 350.1.13.10 4.2.7.2.686 [id number] [facility] 2024-01-06 16:50:10 2024-01-06 16:50:10 Outpatient SFA [facility] [id number] [place] Sainz 2024-01-03 10:37:56 2024-01-03 23:59:00 Outpatient R CATHIE ROSS CRAIG [facility] [id number] [facility] 2024-01-03 10:37:56 2024-01-03 23:59:00 Hospital En[facility] 1..840.114 350.1.13.10 4.2.7.2.686 [id number] [facility] 2024-01-03 10:30:00 2024-01-03 11:05:38 [facility] 1..840.114 350.1.13.10 4.2.7.2.686 [id number] [facility] 2023-12-27 15:35:00 2023-12-27 20:32:00 Emergency X KANDY CHAVEZ JOHNNA [facility] ERT [id number] [facility] 2023-12-27 15:35:00 2023-12-27 20:32:00 Emergency Kandy Chavez [facility] 1.2.840.114 350.1.13.10 4.2.7.2.686 [id number] [facility] 2023-12-27 10:00:00 2023-12-27 10:00:00 Outpatient CATHIE GONZALEZ CRAIG [facility] [id number] [facility] 2023-12-16 06:24:00 2023-12-16 08:37:00 Emergency X TRINO ASHFORD WAKILI [facility] ERT [id number] [facility] 2023-12-16 06:24:00 2023-12-16 08:37:00 Emergency Trino [facility] 1..840.114 350.1.13.10 4.2.7.2.686 [id number] [facility] 2023-12-08 14:12:00 2023-12-08 17:39:00 Emergency X KRISTA CABRERA DONNELL [facility] ERT [id number] [facility] 2023-12-08 14:12:00 2023-12-08 17:39:00 Emergency Krista Cabrera [facility] 1..840.114 350.1.13.10 4.2.7.2.686 [id number] [facility] 2023-12-05 20:46:00 2023-12-06 09:06:00 Emergency X TRINO ASHFORD WAKILI [facility] ERT [id number] [facility] 2023-12-05 20:46:00 2023-12-06 09:06:00 Emergency Valeria Hernandez Wakili S [facility] 1.2840.114 350.1.13.10 4.2.7.2.686 [id number] [facility] 2023-12-04 21:40:00 2023-12-05 01:00:00 Emergency X TRINO ASHFORD WAKILI [facility] ERT [id number] [facility] 2023-12-04 21:40:00 2023-12-05 01:00:00 Emergency Jonelle Connell [place] S [facility] 1.2840.114 350.1.13.10 4.2.7.2.686 [id number] [facility] 2023-11-22 12:02:00 2023-11-22 16:58:00 Emergency X SANDI NBA WEN [facility] ERT [id number] [facility] 2023-11-22 12:02:00 2023-11-22 16:58:00 Emergency Eldermick Wen Nba [facility] 1.840.114 350.1.13.10 4.2.7.2.686 [id number] [facility] 2023-11-11 00:00:00 2023-11-11 09:55:02 Patient Outreach Lauren Cesar 1.2.840.114 350.1.13.10 4.2.7.2.686 [id number] [facility] 2023-11-09 22:30:00 2023-11-10 02:12:00 Emergency X DAO GOEL WILLIAM [facility] ERT [id number] [facility] 2023-11-09 22:30:00 2023-11-10 02:12:00 Emergency Alyssia Miranda William B [facility] 1.2840.114 350.1.13.10 4.2.7.2.686 [id number] [facility] 2023-11-06 13:20:00 2023-11-09 11:54:00 Inpatient X SOLO DEVI [facility] JENIFFER [id number] [facility] 2023-11-06 13:20:00 2023-11-09 11:54:00 Hospital Encounter Krista Cabrera David [place]ville, Jelani [facility] 1..840.114 350.1.13.10 4.2.7.2.686 [id number] [facility] 2023-10-27 22:09:00 2023-10-28 13:11:00 Emergency X CONNELLJONELLE TIMOTHY [facility] ERT [id number] [facility] 2023-10-27 22:09:00 2023-10-28 13:11:00 Emergency Zoë Singletary Timothy [facility] 1..840.114 350.1.13.10 4.2.7.2.686 [id number] [facility] 2023-10-19 10:39:00 2023-10-19 11:33:00 Emergency X GEMINI ZOËZOË SALDIVAR [facility] ERT [id number] [facility] 2023-10-19 10:39:00 2023-10-19 11:33:00 Emergency Gemini Zoë G [facility] 1..840.114 350.1.13.10 4.2.7.2.686 [id number] [facility] 2023-10-18 19:19:00 2023-10-18 21:09:00 Emergency X KRISTA CABRERA DONNELL [facility] ERT [id number] [facility] 2023-10-18 19:19:00 2023-10-18 21:09:00 Emergency Krista Cabrera [facility] 1.2.840.114 350.1.13.10 4.2.7.2.686 [id number] [facility] 2023-09-19 11:52:00 2023-09-21 11:57:00 Inpatient X SOLO DEVI [facility] JENIFFER [id number] [facility] 2023-09-19 11:52:00 2023-09-21 11:57:00 Hospital En[facility] 1.2.840.114 350.1.13.10 4.2.7.2.686 [id number] [facility] 2023-09-15 11:26:00 2023-09-15 13:28:00 [facility] [id number] [facility] 2023-09-15 11:26:00 2023-09-15 13:28:00 Emergency RangelCecile merritt [facility] 1.2.840.114 350.1.13.10 4.2.7.2.686 [id number] [facility] 2023-09-13 18:06:00 2023-09-13 20:03:00 Emergency X ISHAN, ELENO OLMSTEAD, [facility] UPMCRENETTA [facility] ERT [id number] [facility] 2023-09-13 18:06:00 2023-09-13 20:03:00 Emergency [place], Salrenetta [facility] 1.2.840.114 350.1.13.10 4.2.7.2.686 [id number] [facility] 2023-06-21 00:00:00 2023-06-21 00:00:00 (TEL) STLMLC STLMLC [id number] [facility] 2023-06-21 00:00:00 2023-06-21 00:00:00 (TEL) STLMLC STLMLC [id number] [facility] 2023-06-11 00:00:00 2023-06-11 00:00:00 OFFICE VISIT ESTAB PT LEVEL 3 STLMLC STLC [id number] [facility] 2023-05-08 00:00:00 2023-05-08 00:00:00 (TEL) [facility] [id number] 2023-05-01 00:00:00 2023-05-01 00:00:00 Telephone Reta Leija [facility] MEDICAL OFFICE BUILDING 1.840.114 350.1.13.10 4.2.7.2.686 [id number] [facility] 2023-05-01 00:00:00 2023-05-01 00:00:00 Patient Secure Msg Doctor Unassigned, Storla [facility] 1..114 350.1.13.10 4.2.7.2.686 [id number] [facility] 2023-04-30 14:00:00 2023-04-30 14:30:10 Outpatient R RETA LEIJA [facility] [id number] [facility] 2023-04-30 14:00:00 2023-04-30 14:30:10 Urgent Care Reta Leija Unknown, Attending [facility] MEDICAL OFFICE BUILDING 1.840.114 350.1.13.10 4.2.7.2.686 [id number] [facility] 2023-04-30 00:00:00 2023-04-30 00:00:00 Transition of Care Thelma Slaughter 1.84.114 350.1.13.10 4.2.7.2.686 [id number] [facility] 2023-04-24 15:22:00 2023-04-27 09:58:00 Inpatient X RAFFAELE WILLIAM [facility] [id number] [facility] 2023-04-24 15:22:00 2023-04-27 09:58:00 Hospital Encounter Jose Quintanilla Alyssa William Castorena [facility] 1.2.840.114 350.1.13.10 4.2.7.2.686 [id number] [facility] 2023-03-07 00:00:00 2023-03-07 00:00:00 (TEL) STLMLC STLMLC [id number] [facility] 2023-03-07 00:00:00 2023-03-07 00:00:00 (TEL) STLMLC STLMLC [id number] [facility] 2023-03-06 00:00:00 2023-03-06 00:00:00 OFFICE VISIT ESTAB PT LEVEL 3 STLMLC STLMLC [id number] [facility] 2023-02-06 00:00:00 2023-02-06 00:00:00 (TEL) STLMLC STLMLC [id number] [facility] 2023-01-21 00:00:00 2023-01-21 00:00:00 (TEL) STLMLC STLMLC [id number] [facility] 2023-01-12 02:25:00 2023-01-12 05:16:00 Emergency EM ArleneJacob villagomez [facility] [id number] 49 [facility] 2023-01-04 00:00:00 2023-01-04 00:00:00 OFFICE VISIT ESTAB PT LEVEL 3 STLMLC STLMLC [id number] [facility] 2023-01-01 00:00:00 2023-01-01 00:00:00 (TEL) STLMLC STLMLC [id number] [facility] 2022-12-12 09:13:33 2022-12-12 23:59:00 Outpatient PAGE QUINTERO [facility] [id number] [facility] 2022-12-12 09:13:33 2022-12-12 23:59:00 Hospital Encounter Page Roberson [facility] 1.2.840.114 350.1.13.10 4.2.7.2.686 [id number] [facility] 2022-12-12 09:00:00 2022-12-12 09:20:00 Urgent Care Page Roberson Unknown, Attending [facility] MEDICAL OFFICE BUILDING 1..840.114 350.1.13.10 4.2.7.2.686 [id number] [facility] 2022-12-12 00:00:00 2022-12-12 00:00:00 Orders Only Doctor Unassigned, Storla [facility] 1.840.114 350.1.13.10 4.2.7.2.686 [id number] [facility] 2022-12-12 00:00:00 2022-12-12 00:00:00 (TEL) [facility] [id number] [facility] 2022-12-06 00:00:00 2022-12-06 00:00:00 (TEL) [facility] [id number] [facility] 2022-11-14 00:00:00 2022-11-14 00:00:00 Transition of Care Thelma Slaughter 1..840.114 350.1.13.10 4.2.7.2.686 [id number] [facility] 2022-11-10 16:54:00 2022-11-13 18:24:00 Inpatient X JUAN CHAVEZ [facility] [id number] [facility] 2022-11-10 16:54:00 2022-11-13 18:24:00 Hospital Encounter Adelina Judge, Dahiana Chavez, Juan Shore [facility] 1..840.114 350.1.13.10 4.2.7.2.686 [id number] [facility] 2022-11-06 01:11:00 2022-11-07 14:51:00 Outpatient X EDUAR ECHEVARRIA [facility] JENIFFER [id number] [facility] 2022-11-06 01:11:00 2022-11-07 14:51:00 Emergency Zoë Singletary, Eduar Cisneros [facility] 1..840.114 350.1.13.10 4.2.7.2.686 [id number] [facility] 2022-10-30 00:00:00 2022-10-30 00:00:00 OFFICE VISIT ESTAB PT LEVEL 4 STLMLC STLMLC [id number] [facility] 2022-10-01 00:00:00 2022-10-01 00:00:00 (TEL) STLMLC STLMLC [id number] [facility] 2022-08-27 20:56:00 2022-08-27 22:56:00 Emergency X NICK BEST [facility] ERT [id number] [facility] 2022-08-27 20:56:00 2022-08-27 22:56:00 Emergency Nick Best [facility] 1..840.114 350.1.13.10 4.2.7.2.686 [id number] [facility] 2022-08-09 00:00:00 2022-08-09 00:00:00 (TEL) STLMLC STLMLC [id number] [facility] 2022-07-31 00:00:00 2022-07-31 00:00:00 OFFICE VISIT ESTAB PT LEVEL 4 STLMLC STLMLC [id number] [facility] 2022-06-01 00:00:00 2022-06-01 00:00:00 OFFICE VISIT ESTAB PT LEVEL 4 STLMLC STLC [id number] [facility] 2022-05-21 08:30:00 2022-05-21 08:30:00 Outpatient R EDY [facility] [id number] [facility] 2022-05-21 08:30:00 2022-05-21 08:30:00 Outpatient R EDY [facility] [id number] [facility] 2022-05-01 00:00:00 2022-05-01 00:00:00 (TEL) STLMLC STLC [id number] [facility] 2022-04-24 00:00:00 2022-04-24 00:00:00 (TEL) STLMLC STLC [id number] [facility] 2022-04-12 15:05:00 2022-04-12 19:50:00 Emergency Chula HIGGINS T. [facility] ERT [id number] [facility] 2022-04-12 15:05:00 2022-04-12 19:50:00 Emergency Lacey Suggs [facility] 1..840.114 350.1.13.10 4.2.7.2.686 [id number] [facility] 2022-04-12 00:00:00 2022-04-12 00:00:00 Telephone Oral Surgery [facility] 1.2.840.114 350.1.13.10 4.2.7.2.686 [id number] [facility] 2022-04-08 23:47:00 2022-04-09 00:39:00 Emergency Jose CORDERO [facility] ERT [id number] [facility] 2022-04-08 23:47:00 2022-04-09 00:39:00 Emergency Jose Quintanilla [facility] 1.2.840.114 350.1.13.10 4.2.7.2.686 [id number] [facility] 2022-04-06 19:08:00 2022-04-06 22:00:00 Emergency Jian Samuel [facility] [place] [id number] [address] [facility] 2022-04-05 14:09:00 2022-04-05 17:11:00 Emergency X BALDEV ALARCON [facility] ERT [id number] [facility] 2022-04-05 14:09:00 2022-04-05 17:11:00 Emergency Baldev Alarcon S [facility] 1.2.840.114 350.1.13.10 4.2.7.2.686 [id number] [facility] 2022-03-02 00:00:00 2022-03-02 00:00:00 OFFICE VISIT ESTAB PT LEVEL 4 STLMLC STLMLC [id number] [facility] 2022-02-28 00:00:00 2022-02-28 00:00:00 (TEL) STLMLC STLMLC [id number] [facility] 2022-01-15 09:00:00 2022-01-15 09:00:00 Outpatient R [facility] [id number] [facility] 2022-01-15 09:00:00 2022-01-15 09:00:00 Outpatient R [facility] [id number] [facility] 2022-01-15 09:00:00 2022-01-15 09:00:00 Outpatient R TREVON CORTES [facility] [id number] [facility] 2022-01-15 09:00:00 2022-01-15 09:00:00 Outpatient R [facility] [id number] [facility] 2022-01-02 00:00:00 2022-01-02 00:00:00 OFFICE VISIT ESTAB PT LEVEL 4 STLMLC STLMLC [id number] [facility] 2021-12-04 12:37:10 2021-12-04 23:59:00 Hospital Encounter Kerrie Judge [facility] 1.2.840.114 350.1.13.10 4.2.7.2.686 [id number] [facility] 2021-12-04 16:00:00 2021-12-04 16:44:58 Office Visit Alfie [facility] 1.2840.114 350.1.13.10 4.2.7.2.686 [id number] [facility] 2021-12-04 16:00:00 2021-12-04 16:44:58 Outpatient R ALFIE [facility] [id number] [facility] 2021-12-04 16:00:00 2021-12-04 16:00:00 Outpatient R ALFIE [facility] [id number] [facility] 2021-12-04 00:00:00 2021-12-04 00:00:00 [facility] 1.2840.114 350.1.13.10 4.2.7.2.686 [id number] [facility] 2021-12-04 00:00:00 2021-12-04 00:00:00 Telephone Alfie [facility] 1.2840.114 350.1.13.10 4.2.7.2.686 [id number] [facility] 2021-11-29 15:15:00 2021-11-29 16:25:54 Office Visit Alfie [facility] 1.2840.114 350.1.13.10 4.2.7.2.686 [id number] [facility] 2021-11-29 15:15:00 2021-11-29 16:25:54 Outpatient R KERRIE JUDGE [facility] [id number] [facility] 2021-11-29 15:15:00 2021-11-29 15:15:00 Outpatient R KERRIE JUDGE [facility] [id number] [facility] 2021-11-28 00:00:00 2021-11-28 00:00:00 Telephone Cathie Ross [facility] MEDICAL OFFICE BUILD[facility] 1..840.114 350.1.13.10 4.2.7.2.686 [id number] [facility] 2021-11-27 16:15:00 2021-11-27 16:15:00 Outpatient R CATHIE ROSS [facility] [id number] [facility] 2021-11-20 14:45:00 2021-11-20 15:20:56 Outpatient R CATHIE ROSS [facility] [id number] [facility] 2021-11-20 14:45:00 2021-11-20 15:20:56 Office Visit Cathie Ross [facility] MEDICAL OFFICE BUILDING 1.2.840.114 350.1.13.10 4.2.7.2.686 [id number] [facility] 2021-11-18 12:53:52 2021-11-18 23:59:00 Outpatient R JACQUELINE SHIN [facility] [id number] [facility] 2021-11-18 12:53:52 2021-11-18 23:59:00 Hospital Encounter ShinDarinJacqueline [facility] MEDICAL OFFICE BUILDING 1.2.840.114 350.1.13.10 4.2.7.2.686 [id number] [facility] 2021-11-18 12:40:00 2021-11-18 13:00:00 Urgent Care Jacqueline Shin, Page [facility] 1..840.114 350.1.13.10 4.2.7.2.686 [id number] [facility] 2021-11-18 00:10:00 2021-11-18 00:42:00 Emergency X TRINO ASHFORD [facility] ERT [id number] [facility] 2021-11-18 00:10:00 2021-11-18 00:42:00 Emergency Trino Ashford [facility] 1..840.114 350.1.13.10 4.2.7.2.686 [id number] [facility] 2021-11-17 00:00:00 2021-11-17 00:00:00 Orders Only Doctor Unassigned, Storla [facility] 1..840.114 350.1.13.10 4.2.7.2.686 [id number] [facility] 2021-11-16 13:30:00 2021-11-16 13:44:47 [facility] 1..840.114 350.1.13.10 4.2.7.2.686 [id number] [facility] 2021-11-16 13:30:00 2021-11-16 13:44:47 Outpatient R ALFIE KERRIE [facility] [id number] [facility] 2021-11-16 13:30:00 2021-11-16 13:30:00 Outpatient Vivek JUDGE [facility] [id number] [facility] 2021-11-15 00:00:00 2021-11-15 00:00:00 Telephone Cathie Ross [facility] MEDICAL OFFICE BUILDING 1.840.114 350.1.13.10 4.2.7.2.686 [id number] [facility] 2021-11-13 14:00:00 2021-11-13 14:57:00 Surgery Cathie Ross [facility] 1.2840.114 350.1.13.10 4.2.7.2.686 [id number] [facility] 2021-11-13 11:04:00 2021-11-13 14:30:00 Outpatient R CATHIE ROSS [facility] SOR [id number] [facility] 2021-11-13 11:04:00 2021-11-13 14:30:00 Hospital Encounter Cathie Ross [facility] 1.2840.114 350.1.13.10 4.2.7.2.686 [id number] [facility] 2021-11-13 08:00:00 2021-11-13 09:01:53 Outpatient R EDY [facility] [id number] [facility] 2021-11-13 08:00:00 2021-11-13 09:01:53 Office Visit Edy [facility] MEDICAL OFFICE BUILDING 1.2840.114 350.1.13.10 4.2.7.2.686 [id number] [facility] 2021-11-13 00:00:00 2021-11-13 00:00:00 Telephone Cathie Ross [facility] 1.2840.114 350.1.13.10 4.2.7.2.686 [id number] [facility] 2021-11-10 10:43:14 2021-11-10 23:59:00 Hospital Encounter Cathie Ross [facility] 1.2840.114 350.1.13.10 4.2.7.2.686 [id number] [facility] 2021-11-10 11:15:00 2021-11-10 11:30:00 Data Management Consultant Visit Pob, Adc Lab Main Cathie Ross [facility] BUILDING 1.840.114 350.1.13.10 4.2.7.2.686 [id number] [facility] 2021-11-10 10:38:25 2021-11-10 10:42:00 Outpatient R CATHIE ROSS [facility] [id number] [facility] 2021-11-10 08:30:00 2021-11-10 08:45:00 Laboratory Only Only, Adc Test Cathie Ross [facility] 1.840.114 350.1.13.10 4.2.7.2.686 [id number] [facility] 2021-11-10 00:00:00 2021-11-10 00:00:00 (TEL) STLMLC STLMLC [id number] [facility] 2021-11-10 00:00:00 2021-11-10 00:00:00 Telephone [facility] BU[facility] 1.840.114 350.1.13.10 4.2.7.2.686 [id number] [facility] 2021-11-09 00:00:00 2021-11-09 00:00:00 Telephone [facility] OFF[facility] 1.840.114 350.1.13.10 4.2.7.2.686 [id number] [facility] 2021-11-09 00:00:00 2021-11-09 00:00:00 [facility] 1..840.114 350.1.13.10 4.2.7.2.686 [id number] [facility] 2021-11-08 15:30:00 2021-11-08 15:55:00 Outpatient R CATHIE ROSS [facility] [id number] [facility] 2021-11-08 15:30:00 2021-11-08 15:55:00 Office Visit Cathie Ross [facility] 1..840.114 350.1.13.10 4.2.7.2.686 [id number] [facility] 2021-11-08 00:00:00 2021-11-08 00:00:00 Prep For Surgery Cathie Ross [facility] 1.840.114 350.1.13.10 4.2.7.2.686 [id number] [facility] 2021-11-07 00:00:00 2021-11-07 00:00:00 (TEL) [facility]MLC [facility] [id number] [facility] 2021-11-03 08:00:00 2021-11-03 08:00:00 Outpatient R KERRIE JUDGE [facility] [id number] [facility] 2021-10-30 14:00:00 2021-10-30 14:05:17 Outpatient R PAGE ROBERSON [facility] [id number] [facility] 2021-10-30 14:00:00 2021-10-30 14:05:17 Urgent Care Consuelo Vu [facility] 1..840.114 350.1.13.10 4.2.7.2.686 [id number] [facility] 2021-10-29 13:44:17 2021-10-29 23:59:00 Outpatient R RAJESH GONZALES [facility] [id number] [facility] 2021-10-29 13:44:17 2021-10-29 23:59:00 Outpatient R RAJESH GONZALES [facility] [id number] [facility] 2021-10-29 13:44:17 2021-10-29 23:59:00 Hospital Encounter Cee [facility] 1..840.114 350.1.13.10 4.2.7.2.686 [id number] [facility] 2021-10-29 14:40:00 2021-10-29 14:40:00 Urgent Care Cee [facility] 1..840.114 350.1.13.10 4.2.7.2.686 [id number] [facility] 2021-10-17 00:00:00 2021-10-17 00:00:00 OFFICE VISIT ESTAB PT LEVEL 4 [facility] [id number] [facility] 2021-10-05 00:00:00 2021-10-05 00:00:00 (WELLNESS) Wellness Visit [facility] [id number] [facility] 2021-10-03 00:00:00 2021-10-03 00:00:00 (TEL) [facility] [id number] [facility] 2021-10-02 00:00:00 2021-10-02 00:00:00 (TEL) [facility] [id number] [facility] 2021-08-14 09:30:00 2021-08-14 09:53:56 Nurse Visit Visit, [facility] Nurse Trevon Cortes [facility] C DEVELOPER [facility] 1..840.114 350.1.13.10 4.2.7.2.686 [id number] [facility] 2021-08-14 09:30:00 2021-08-14 09:30:00 Outpatient R [facility] [id number] [facility] 2021-08-14 09:30:00 2021-08-14 09:30:00 Outpatient R GERHARD CORTESRODGERMichelle [facility] [id number] [facility] 2021-08-07 00:00:00 2021-08-07 00:00:00 (TEL) STLMLC [facility]C [id number] [facility] 2021-07-17 00:00:00 2021-07-17 00:00:00 Telephone Pratima Wu [facility] C [facility]ELOPER [facility] [facility] 1..840.114 350.1.13.10 4.2.7.2.686 [id number] [facility] 2021-07-17 00:00:00 2021-07-17 00:00:00 Orders Only Doctor Unassigned, Storla [facility] 1.840.114 350.1.13.10 4.2.7.2.686 [id number] [facility] 2021-07-13 09:15:00 2021-07-13 09:58:35 Outpatient R PRATIMA WU [facility] [id number] [facility] 2021-07-13 09:15:00 2021-07-13 09:58:35 Office Visit Pratima Wu [facility] C [facility] 1.840.114 350.1.13.10 4.2.7.2.686 [id number] [facility] 2021-07-13 09:15:00 2021-07-13 09:58:35 Outpatient R PRATIMA WU [facility] [id number] [facility] 2021-07-13 00:00:00 2021-07-13 00:00:00 OFFICE VISIT ESTAB PT LEVEL 4 STLMLC STLMLC [id number] [facility] 2021-07-13 00:00:00 2021-07-13 00:00:00 Letter (Out) Pratima Wu [facility] C [facility]EL[facility] 1.2.840.114 350.1.13.10 4.2.7.2.686 [id number] [facility] 2021-07-13 00:00:00 2021-07-13 00:00:00 Telephone Pratima Wu [facility] 1.2.840.114 350.1.13.10 4.2.7.2.686 [id number] [facility] 2021-07-03 01:43:00 2021-07-03 01:43:00 Outpatient GC_SWHAOMC_ [facility] [id number] [facility] 2021-06-14 00:00:00 2021-06-14 00:00:00 (TEL) STLMLC STLMLC [id number] [facility] 2021-06-04 14:00:00 2021-06-04 15:49:40 Outpatient R COSME SANCHEZ [facility] [id number] [facility] 2021-06-04 14:00:00 2021-06-04 14:20:00 Urgent Care Cosme Sanchez Jessica [facility] 1.2.840.114 350.1.13.10 4.2.7.2.686 [id number] [facility] 2021-05-19 00:00:00 2021-05-19 00:00:00 OFFICE VISIT EST PT LEVEL 3 STLMLC STLMLC [id number] [facility] 2021-04-12 00:00:00 2021-04-12 00:00:00 Letter (Out) Zakiya Multani [facility] 1.2114 350.1.13.10 4.2.7.2.686 [id number] [facility] 2021-04-11 11:15:00 2021-04-11 11:30:00 Laboratory Only Only, Ang Db Test [facility] 1.114 350.1.13.10 4.2.7.2.686 [id number] [facility] 2021-04-11 11:15:00 2021-04-11 11:15:00 Outpatient R FRANKI MILEY [facility] [id number] [facility] 2021-04-11 00:00:00 2021-04-11 00:00:00 Orders Only Doctor Unassigned, Storla [facility] 1.2.114 350.1.13.10 4.2.7.2.686 [id number] [facility] 2021-04-08 00:00:00 2021-04-08 00:00:00 Patient Secure Msg Doctor Unassigned, Storla [facility] 1.2.114 350.1.13.10 4.2.7.2.686 [id number] [facility] 2021-03-21 00:00:00 2021-03-21 00:00:00 OFFICE VISIT ESTAB PT LEVEL 4 [facility] [id number] 2021-03-20 00:00:00 2021-03-20 00:00:00 (TEL) [facility] [id number] [facility] 2021-03-17 00:00:00 2021-03-17 00:00:00 Telephone Jeovany Purvis [facility] 1.2.840.114 350.1.13.10 4.2.7.2.686 [id number] [facility] 2021-03-13 00:00:00 2021-03-13 00:00:00 Telephone Jeovany Purvis [facility] 1.2840.114 350.1.13.10 4.2.7.2.686 [id number] [facility] 2021-03-08 00:00:00 2021-03-08 00:00:00 Transition of Care FunesTiff jang 1.284.114 350.1.13.10 4.2.7.2.686 [id number] [facility] 2021-03-04 20:45:00 2021-03-07 17:42:00 Inpatient CHAD BALLESTEROS [facility] [id number] [facility] 2021-03-04 20:45:00 2021-03-07 17:42:00 Hospital En[facility] 1.84.114 350.1.13.10 4.2.7.2.686 [id number] [facility] 2021-03-04 20:45:00 2021-03-07 17:42:00 Inpatient X CHAD MORAN [facility] [id number] [facility] 2021-03-04 11:26:00 2021-03-04 12:01:00 Emergency X CLEMENTINA MARROQUIN [facility] ERT [id number] [facility] 2021-03-04 11:26:00 2021-03-04 12:01:00 Emergency Clementina Marroquin [facility] 1.284.114 350.1.13.10 4.2.7.2.686 [id number] [facility] 2021-02-28 23:10:00 2021-03-03 12:00:00 Outpatient SOLO CARROLL [facility] JENIFFER [id number] [facility] 2021-02-28 23:10:00 2021-03-03 12:00:00 Emergency Baldev Alarcon Jelani [facility] 1..840.114 350.1.13.10 4.2.7.2.686 [id number] [facility] 2021-02-28 23:10:00 2021-03-03 12:00:00 Outpatient SOLO CARROLL [facility] JENIFFER [id number] [facility] 2021-02-28 00:00:00 2021-02-28 00:00:00 (TEL) STLMLC STLMLC [id number] [facility] 2021-01-09 00:00:00 2021-01-09 00:00:00 OFFICE VISIT ESTAB PT LEVEL 4 STLMLC STLMLC [id number] [facility] 2020-11-10 00:00:00 2020-11-10 00:00:00 Outpatient STLMLC STLMLC [id number] [facility] 2020-10-11 00:00:00 2020-10-11 00:00:00 Outpatient STLMLC STLMLC [id number] [facility] 2020-08-18 00:00:00 2020-08-18 00:00:00 Transition of Care Tiff Funes 1..840.114 350.1.13.10 4.2.7.2.686 [id number] [facility] 2020-07-29 00:00:00 2020-07-29 00:00:00 Outpatient STLMLC STLMLC [id number] [facility] 2020-07-18 00:00:00 2020-07-18 00:00:00 Outpatient STLMLC STLMLC [id number] [facility] 2020-07-06 00:00:00 2020-07-06 00:00:00 Outpatient STLMLC STLMLC [id number] [facility] 2020-06-29 00:00:00 2020-06-29 00:00:00 Outpatient STLMLC STLMLC [id number] [facility] 2020-06-23 00:00:00 2020-06-23 00:00:00 Outpatient STLMLC STLMLC [id number] [facility] 2020-06-03 00:00:00 2020-06-03 00:00:00 Outpatient STLMLC STLMLC [id number] [facility] 2020-05-27 00:00:00 2020-05-27 00:00:00 Outpatient STLMLC STLMLC [id number] [facility] 2020-05-11 00:00:00 2020-05-11 00:00:00 Outpatient STLMLC STLMLC [id number] [facility] 2020-04-25 00:00:00 2020-04-25 00:00:00 Outpatient STLMLC STLMLC [id number] [facility] 2020-03-15 00:00:00 2020-03-15 00:00:00 Outpatient STLMLC STLMLC [id number] [facility] 2020-03-14 00:00:00 2020-03-14 00:00:00 Outpatient STLMLC STLMLC [id number] [facility] 2020-03-07 00:00:00 2020-03-07 00:00:00 Outpatient STLMLC STLMLC [id number] [facility] 2020-03-03 17:00:00 2020-03-03 17:00:00 Outpatient R [facility] [id number] [facility] 2020-03-03 14:36:05 2020-03-03 15:04:47 Urgent Care Provider, [facility] Kelly Perez [facility] 1.2.840.114 350.1.13.10 4.2.7.2.686 [id number] [facility] 2020-03-03 14:36:05 2020-03-03 15:04:47 Urgent Care Provider, [facility] Office [facility] One 1.2.840.114 350.1.13.10 4.2.7.2.686 [id number] 2020-03-02 00:00:00 2020-03-02 00:00:00 Outpatient STLMLC STLMLC [id number] [facility] 2020-02-29 00:00:00 2020-02-29 00:00:00 Outpatient STLMLC STLMLC [id number] [facility] 2020-02-17 00:00:00 2020-02-17 00:00:00 Outpatient STLMLC STLMLC [id number] [facility] 2020-02-16 00:00:00 2020-02-16 00:00:00 Outpatient STLMLC STLMLC [id number] [facility] 2020-01-18 00:00:00 2020-01-18 00:00:00 Outpatient STLMLC STLMLC [id number] [facility] 2019-12-08 16:40:00 2019-12-08 16:40:00 Outpatient RAJESH MAGAÑA [facility] [id number] [facility] 2019-12-07 14:00:00 2019-12-07 14:00:00 [facility] [id number] [facility] 2019-12-07 11:54:00 2019-12-07 11:54:00 Outpatient [facility] [id number] [facility] 2019-12-03 13:00:00 2019-12-03 13:00:00 [facility] [id number] [facility] 2019-12-03 08:34:00 2019-12-03 08:34:[address] [facility] [address] [facility] Medicine [id number] [facility] 2019-12-02 08:44:00 2019-12-02 08:44:[address] [facility] [address] [facility] [id number] [facility] 2019-12-01 13:53:00 2019-12-01 13:53:[address] [facility] [address] [facility] [id number] [facility] 2019-11-26 14:00:00 2019-11-26 14:00:00 [facility]patient [facility] [id number] [facility] 2019-11-24 00:00:00 2019-11-24 00:00:00 [facility] [place] [address].2.840.114 350.1.13.10 4.2.7.2.686 [id number] [facility] 2019-11-24 00:00:00 2019-11-24 00:00:00 [facility] [address].840.114 350.1.13.10 4.2.7.2.686 [id number] 2019-11-18 13:45:00 2019-11-18 13:45:[address] [facility] [address] [facility] Medicine [id number] [facility] 2019-11-17 10:00:00 2019-11-17 23:59:00 Hospital Encounter Radiology [address]840.114 350.1.13.10 4.2.7.2.686 [id number] [facility] 2019-11-17 10:00:00 2019-11-17 23:59:00 Hospital Encounter Radiology [address]840.114 350.1.13.10 4.2.7.2.686 [id number] 2019-11-17 00:00:00 2019-11-17 00:00:00 Outpatient R RADIOLOGY [facility] [id number] [facility] 2019-11-17 00:00:00 2019-11-17 00:00:00 Orders Only Doctor Unassigned, Storla [facility] 1.2840.114 350.1.13.10 4.2.7.2.686 [id number] [facility] 2019-11-17 00:00:00 2019-11-17 00:00:00 Orders Only Doctor Unassigned, Storla [facility] 1.840.114 350.1.13.10 4.2.7.2.686 [id number] 2019-11-16 13:15:00 2019-11-16 13:15:00 Outpatient [facility] [id number] [facility] 2019-11-09 15:00:00 2019-11-09 15:00:00 Outpatient R JENNIFER SHER [facility] [id number] [facility] 2019-10-09 11:37:00 2019-10-09 11:37:00 [facility] [id number] [facility] 2019-10-07 11:38:03 2019-10-07 12:05:01 Urgent Care Provider, [facility] Kelly Perez [facility] Office Building One 1.114 350.1.13.10 4.2.7.2.686 [id number] [facility] 2019-10-07 11:38:03 2019-10-07 12:05:01 Urgent Care Provider, [facility] One 1.114 350.1.13.10 4.2.7.2.686 [id number] 2019-10-07 11:40:2019-10-07 11:40:00 Outpatient KELLY DAVID [facility] [id number] [facility] 2019-10-06 00:00:00 2019-10-06 00:00:00 Orders Only Doctor Unassigned, Storla [facility] 1.2.840.114 350.1.13.10 4.2.7.2.686 [id number] [facility] 2019-10-06 00:00:00 2019-10-06 00:00:00 Orders Only Doctor Unassigned, Storla [facility] 1.2.840.114 350.1.13.10 4.2.7.2.686 [id number] 2019-09-23 13:15:00 2019-09-23 13:15:[address] [facility] [facility] [address] [facility] [id number] [facility] 2019-09-17 16:41:00 2019-09-17 16:41:[address] [facility] [address] [facility] [id number] [facility] 2019-07-27 10:13:00 2019-07-27 10:13:[address] [facility] [address] [facility] [id number] [facility] 2019-07-24 10:00:00 2019-07-24 10:00:[address] [facility] [address] [facility] [id number] [facility] 2019-07-06 08:54:00 2019-07-06 08:54:[address] [facility] [id number] [facility] 2019-06-29 10:28:00 2019-06-29 10:28:[address] [facility] [address] [facility] [id number] [facility] 2019-06-24 14:42:00 2019-06-24 14:42:[address] [facility] [address] [facility] [id number] [facility] 2019-06-18 11:23:00 2019-06-18 11:23:00 [facility] [id number] [facility] 2019-06-18 08:19:00 2019-06-18 08:19:00 Out[facility] [id number] [facility] 2019-06-16 13:45:00 2019-06-16 13:45:00 Outpatient [facility] [id number] [facility] 2019-06-11 13:06:23 2019-06-11 16:30:00 Emergency Baldev Alarcon [facility] 1.2.840.114 350.1.13.10 4.2.7.2.686 [id number] [facility] 2019-06-11 13:06:23 2019-06-11 16:30:00 Emergency X BALDEV ALARCON [facility] ERT [id number] [facility] 2019-06-11 13:06:23 2019-06-11 16:30:00 Emergency X BALDEV ALARCON [facility] ERT [id number] [facility] 2019-06-11 13:06:23 2019-06-11 16:30:00 Emergency Baldev Alarcon [facility] 1.2.840.114 350.1.13.10 4.2.7.2.686 [id number] 2019-06-07 15:32:13 2019-06-07 16:50:00 Emergency Sabra Sorto [facility] 1.2.840.114 350.1.13.10 4.2.7.2.686 [id number] [facility] 2019-06-07 15:32:13 2019-06-07 16:50:00 Emergency X SABRA SORTO [facility] ERT [id number] [facility] 2019-06-07 15:32:13 2019-06-07 16:50:00 Emergency X SABRA SORTO [facility] ERT [id number] [facility] 2019-06-07 15:32:13 2019-06-07 16:50:00 Emergency Sabra Sorto [facility] 1.2.840.114 350.1.13.10 4.2.7.2.686 [id number] 2019-06-07 00:00:00 2019-06-07 00:00:00 Orders Only Doctor Unassigned, Storla [facility] 1.2.840.114 350.1.13.10 4.2.7.2.686 [id number] [facility] 2019-06-07 00:00:00 2019-06-07 00:00:00 Orders Only Doctor Unassigned, Storla [facility] 1.2840.114 350.1.13.10 4.2.7.2.686 [id number] 2019-06-02 14:30:00 2019-06-02 14:30:00 Outpatient [facility] [id number] [facility] 2019-06-01 13:24:00 2019-06-01 13:24:00 Outpatient [facility] [id number] [facility] 2019-05-28 18:41:42 2019-05-28 20:29:00 Emergency [facility] 1.2.840.114 350.1.13.10 4.2.7.2.686 [id number] [facility] 2019-05-28 18:41:42 2019-05-28 20:29:00 [facility] 1.2.840.114 350.1.13.10 4.2.7.2.686 [id number] 2019-05-26 15:00:00 2019-05-26 15:00:[address] [facility] [address] [id number] [facility] 2019-04-30 10:17:00 2019-04-30 10:17:[address] [facility] [address] [facility] [id number] [facility] 2019-04-30 08:15:00 2019-04-30 08:15:[address] [facility] [address] [facility] [id number] [facility] 2019-04-24 10:15:00 2019-04-24 10:15:[address] [facility] [address] [facility] [id number] [facility] 2019-03-26 16:00:00 2019-03-26 16:00:[address] [facility] [address] [facility] [id number] [facility] 2019-02-26 09:01:00 2019-02-26 09:01:[address] [facility] [address] [facility] [id number] [facility] 2019-02-13 15:50:00 2019-02-13 15:50:[address] [facility] [address] [facility] [id number] [facility] 2019 14:30:00 2019 14:30:[address] [facility] [address] [facility] [id number] [facility] 2019-01-02 17:15:03 2019-01-02 19:16:[address]840.114 350.1.13.10 4.2.7.2.686 [id number] [facility] 2019-01-02 17:15:03 2019-01-02 19:16:[address]840[address]114 350.1.13.10 4.2.7.2.686 [id number] 2019-01-02 00:00:00 2019-01-02 00:00:00 Orders Only Doctor Unassigned, Storla [facility] 1.2.840.114 350.1.13.10 4.2.7.2.686 [id number] [facility] 2019-01-02 00:00:00 2019-01-02 00:00:00 Orders Only Doctor Unassigned, Storla [facility] 1.2840.114 350.1.13.10 4.2.7.2.686 [id number] 2018-12-31 14:17:00 2018-12-31 14:17:00 [facility] Medicine [id number] [facility] 2018-12-29 09:44:07 2018-12-29 09:59:[address] [facility] [employer]. 1.2.840.114 350.1.13.10 4.2.7.2.686 [id number] [facility] 2018-12-29 09:44:07 2018-12-29 09:59:07 Office Visit Stefanie Eliezer [facility] [employer]. 1.2.840.114 350.1.13.10 4.2.7.2.686 [id number] 2018-12-29 00:00:00 2018-12-29 00:00:00 Letter (Out) Stefanie Eliezer [facility] [employer]. 1.2.840.114 350.1.13.10 4.2.7.2.686 [id number] [facility] 2018-12-24 16:06:07 2018-12-24 23:59:00 Hospital Encounter Radiology [facility] 1.2.840.114 350.1.13.10 4.2.7.2.686 [id number] [facility] 2018-12-24 10:45:00 2018-12-24 10:45:[address] [facility] [facility] [id number] [facility] 2018-12-24 00:00:00 2018-12-24 00:00:00 Orders Only Doctor Unassigned, Storla [facility] 1.2.840.114 350.1.13.10 4.2.7.2.686 [id number] [facility] 2018-12-09 15:05:00 2018-12-09 15:05:[address] [facility] [facility] [id number] [facility] 2018-12-08 13:15:00 2018-12-08 13:15:[address] [facility] [address] [facility] [id number] [facility] 2018-11-26 16:19:00 2018-11-26 16:19:[address] [facility] [address] [facility] [id number] [facility] 2018-11-18 09:00:00 2018-11-18 09:00:[address] [facility] [address] [facility] [id number] [facility] 2018-11-15 13:23:07 2018-11-15 13:57:49 Urgent Care Reji Leahy, Attending [facility] 1.2.840.114 350.1.13.10 4.2.7.2.686 [id number] [facility] 2018-10-24 16:15:00 2018-10-24 16:15:[address] [facility] [address] [facility] [id number] [facility] 2018-10-21 14:30:00 2018-10-21 14:30:[address] [facility] [address] [facility] [id number] [facility] 2018-08-22 09:30:00 2018-08-22 09:30:[address] [facility] [address] [facility] [id number] [facility] 2018-08-16 11:37:00 2018-08-16 11:37:[address] [facility] [address] [facility] [id number] [facility] 2018-08-14 08:30:00 2018-08-14 08:30:[address] [facility] [address] [facility] [id number] [facility] 2018-08-13 15:15:00 2018-08-13 15:15:00 [facility] [id number] [facility] 2018-07-23 15:00:00 2018-07-23 15:00:[address] [facility] [address] [facility] [id number] [facility] 2018-06-23 13:45:00 2018-06-23 13:45:[address] [facility] [address] [facility] [id number] [facility] 2018-06-09 11:19:00 2018-06-09 11:19:00 [facility] [id number] [facility] 2018-06-03 08:02:00 2018-06-03 08:02:[address] [facility] [facility] [id number] [facility] 2018-06-02 09:30:00 2018-06-02 09:30:[address] [facility] [address] [facility] [id number] [facility] 2018-05-21 15:00:00 2018-05-21 15:00:[address] [facility] [id number] [facility] 2018-05-09 08:22:00 2018-05-09 08:22:[address] [facility] [id number] [facility] 2018-04-24 15:45:00 2018-04-24 15:45:00 Outpatient [facility] [id number] [facility] 2018-04-04 09:15:00 2018-04-04 09:15:00 Outpatient [facility] [id number] [facility] 2018-04-02 14:30:00 2018-04-02 14:30:00 [place] [facility] [id number] [facility] 2018-01-28 13:00:00 2018-01-28 13:00:00 Outpatient [facility] [id number] [facility] Results Test Description Test Time Test [...] mass effect, or evidence of acute intracranialhemorrhage. [facility] CT Angiogram head 07:37:03 Exam: CT Angiogram [...] mass effect, or evidence of acute intracranialhemorrhage. [facility] XR Chest 1 vw 06:54:39 Study: Single view chest. Ordering Physician: MONICA PATIÑO Date: 04/04/2024 11:30 PM History:ALTERED MENTAL STATUS COMPARISON: None. Findings: Single frontal view chest demonstrates a normal heart size. Thelungs are clear without infiltrate, pleural effusion or pneumothorax. Noacute osseous abnormality is identified. [facility] CT TRAUMA HEAD WO CONTRAST 01:54:54 EXAM: [...] cells are clear. The nasal septumis intact. [facility] CT Maxillofacial/m andible wo contrast 01:54:54 EXAM: [...] cells are clear. The nasal septumis intact. [facility]W [id number] 16:05:56EXAM: XR WRIST 3+ VW RIGHT HISTORY: rt wrist fx ? COMPARISON: [facility] [id number] 20:33:00* Test Item Value Reference Range Interpretation Comme nts POCT PREG (test code = 1605) Negative On board controls acceptable with C Line (test code = 3574) Yes POCT PREG LOT # (test code = 3575) [id number] POCT PREG TEST DATE ( test code = 3576) 03/03/2025 Lab Interpretation (test cod e = 09422-8) Normal [facility] WITH [id number] 20:22:54* Test Item Value Reference Range Interpretation [...] 34.2 g/dL 31.6-35.1 RDW-SD (test code = 23474-1) 41.4 fL 39.0-49.9 RDW-CV (test code = 788-0) 11.9 % 12.0-15.5 L PLT (test code = 777-3) 143 166-358 L MPV (test code = 51616-9) 9.5 fL 9.5-12.9 IPF % (test code = 1039815067) 3.4 % 1.3-7.7 Platelet count measured by fluorescence method. NRBC/100 WBC (test code = 3497582265) 0.0 0.0-10.0 NRBC x10^3 (test code = 2008568476) See_Comment [Automated messa ge] The system which generated this result transmitted reference range: 10*3/?L. The reference range was not used to interpret this result as normal/abnormal. GRAN MAT (NEUT) % (test code = 770-8) 65.3 % IMM GRAN % (test code = 5522654223) 0.40 % LYMPH % (test code = 736-9) 27.2 % MONO % (test code = 5905-5) 6.2 % EOS % (test code = 713-8) 0.5 % BASO % (test code = 706-2) 0.4 % GRAN MAT x10^3(ANC) (test code = 3203980642) 4.96 10*3/uL 1.88-7.09 IMM GRAN x10^3 (test code = 1992236210) 0.03 10*3/uL 0.00-0.06 LYMPH x10^3 (test code = 731-0) 2.07 10*3/uL 1.32-3.29 MONO x10^3 (test code = 742-7) 0.47 10*3/uL 0.33-0.92 EOS x10^3 (test code = 711-2) 0.04 10*3/uL 0.03-0.39 BASO x10^3 (test code = 704-7) 0.03 10*3/uL 0.01-0.07 Lab Interpretation (test code = 42402-6) Abnormal [facility]ETHANOL2024-08-18 20:07:11 ALCOHOL<10mg/dL12/08/2023 3:07 PM [facility]<10 Jrwkpita58-394 Toxic>100 Depression of IT SUPPORT CONSULTANT>400 Fatalities ReportedHCA [facility] Healthcare PearlandMagnesium2024-08-18 20:07:06* Test Item Value Reference Range Interpretation Comme nts MAGNESIUM (test code = 6162923551) 1.1 mg/dL 1.7-2.4 L Lab Interpretation (test cod e = 52886-3) Abnormal [facility]landCOMP. METABOLIC PANEL (73151)2023-12-08 19:58:38* Test Item Value Reference Range Interpretation Comme nts NA (test code = 3040408264) 136 mmol/L 135-145 K (test code = 1978226473) 3.5 mmol/L 3.5-5.0 CL (test code = 8507383958) 97 mmol/L 98-108 L CO2 TOTAL (test code = 7785619191) 28 mmol/L 23-31 AGAP (test code = 0854178857) 11 2-16 BUN (test code = 3552816374) 9 mg/dL 7-23 GLUCOSE (test code = 7648401164) 113 mg/dL 70-110 H CREATININE (test code = 2160-0) 0.52 mg/dL 0.50-1.04 TOTAL BILI (test code = 4918663171) 1.5 mg/dL 0.1-1.1 H CALCIUM (test code = 0245702079) 9.3 mg/dL 8.6-10.6 T PROTEIN (test code = 1414193749) 8.6 g/dL 6.3-8.2 H ALBUMIN (test code = 5108704287) 4.7 g/dL 3.5-5.0 ALK PHOS (test code = 4596576318) 138 U/L 34-122 H ALTv (test code = 1742-6) 32 U/L 5-35 AST(SGOT) (test code = 4473164676) 71 U/L 13-40 H eGFR (test code = 16899-9) 126.0 mL/min/1.73m2 CKD-EPI eGFR (2020). Assuming creatinine has been stable day-to-day for at least three months, the eGFR indicates Category G1 (>= 90 mL/min/1.73 m2) Lab Interpretation (test code = 19051-5) Abnormal [facility]landLIPASE2024-08-18 19:58:18* Test Item Value Reference Range Interpretation Comme nts LIPASE (test code = 1630705848) 122 U/L 0-220 Lab Interpretation (test cod e = 81301-3) Normal [facility]landAC Panel 21 + Lactic [id number] 19:41:27* Test Item Value Reference Range Interpretation Comme nts PH (test code = 5259538203) 7.45 7.32-7.42 H PCO2 TONY (test code = 6658529724) 41 41-51 PO2 TONY (test code = 3970809618) 32 25-40 HCO3 TONY (test code = 5627574806) 28 24-28 AC VBE(BEAKER) (test code = 3201057219) 3.6 mEq/L THB TONY (test code = 4364997410) 12.6 g/dL 12.0-16.0 %O2HB TONY (test code = 2866561590) 61.7 % 52.0-63.0 %COHB TONY (test code = 7661654130) 0.1 % 0.0-1.5 %METHB TONY (test code = 3414321629) 0.5 % 0.4-1.5 VOL%O2 TONY (test code = 9968110655) 10.9 % 6.0-12.0 NA (test code = 4973824782) 138 mmol/L 135-145 K+ (test code = 1676607130) 3.7 mmol/L 3.5-5.0 AC CA IONZ (test code = 6128562069) 4.50 mg/dL 4.50-5.30 GLUCOSE (test code = 2849920605) 101 mg/dL 70-110 LACTIC ACID (test code = 1764881736) 1.63 mmol/L 0.50-2.20 Lab Interpretation (test cod e = 40558-6) Abnormal [facility] PearlandEthanol2024-08-16 09:16:23* Test Item Value Reference Range Interpretation Comme nts ALCOHOL (test code = 6982572647) 186 mg/dL JASMYN (test code = JASMYN) <10 Aglpupor55-097 Toxic>100 Depression of IT SUPPORT CONSULTANT>400 Fatalities Reported [facility]landPOCT [id number] 03:09:00* Test Item Value Reference Range Interpretation Comme nts POCT PREG (test code = 1605) Negative On board controls acceptable with C Line (test code = 3574) Yes POCT PREG LOT # (test code = 3575) [id number] POCT PREG TEST DATE ( test code = 3576) 2025-03-03 Lab Interpretation (test cod e = 84039-8) Normal [facility] PearlandTOTAL BHCG (QUANTITATIVE)2023-11-22 18:44:22 BETA HCG<2.39Non- female and male patients: <5 mIU/mL11/22/2023 1:44 PM [facility] Gestational Age ?Range (mIU/mL) 1-10 ?Weeks ?50-59004696-44 Weeks ?34651-65190040-47 Weeks ?6435-74398085-11 Weeks ?1531-596934 Biotin has been reported to cause a negative bias, interpret results relative to patient's use of biotin.[facility] TROPONIN [id number] 18:34:01* Test Item Value Reference Range Interpretation Comme nts TROPONIN I (test code = 0446068179) 0.006 ng/mL <=0.034 JASMYN (test code = [...] of biotin. Lab Interpretation (test code = 19436-2) Normal [facility]landCT HEAD WO [id number] 18:28:32FULL RESULT: Examination: CT HEAD WO CONTRAST, [...] no intrinsic bony lesion, fracture or traumatic malalignment.[facility]landCT CERVICAL SPINE WO CONTRAST 2023-11-22 18:28:32FULL RESULT: [...] no intrinsic bony lesion, fracture or traumatic malalignment.[facility] PearlandD-Fxeia4678-23-41 18:25:38* Test Item Value Reference Range Interpretation Comments D-DIMER (test code = 4042248767) 0.36 See_Comment [Automated message] The system which [...] a diagnosis. Lab Interpretation (test code = 33521-3) Normal [facility]landETHANOL2024-08-02 18:23:36 ALCOHOL<10mg/dL11/22/2023 1:23 PM [facility]<10 Paopepsv34-406 Toxic>100 Depression of IT SUPPORT CONSULTANT>400 Fatalities ReportedHCA Houston Healthcare PearlandCOM. METABOLIC PANEL (11106)2023-11-22 18:22:35* Test Item Value Reference Range Interpretation Comme nts NA (test code = 2234823728) 136 mmol/L 135-145 K (test code = 0636408356) 4.4 3.5-5.0 CL (test code = 4927561716) 100 mmol/L 98-108 CO2 TOTAL (test code = 2699655634) 24 mmol/L 23-31 AGAP (test code = 9074256117) 12 2-16 BUN (test code = 3647648776) 18 mg/dL 7-23 GLUCOSE (test code = 5110725860) 89 mg/dL 70-110 CREATININE (test code = 2160-0) 0.71 mg/dL 0.50-1.04 TOTAL BILI (test code = 7715044066) 0.8 mg/dL 0.1-1.1 CALCIUM (test code = 0050045315) 9.4 mg/dL 8.6-10.6 T PROTEIN (test code = 8993239565) 8.0 g/dL 6.3-8.2 ALBUMIN (test code = 1411502701) 4.4 g/dL 3.5-5.0 ALK PHOS (test code = 5699869683) 93 U/L 34-122 ALTv (test code = 1742-6) 32 U/L 5-35 AST(SGOT) (test code = 1292702346) 46 U/L 13-40 H eGFR (test code = 41160-4) 115.3 mL/min/1.73m2 CKD-EPI eGFR (2020). Assuming creatinine has been stable day-to-day for at least three months, the eGFR indicates Category G1 (>= 90 mL/min/1.73 m2) Lab Interpretation (test code = 46318-4) Abnormal [facility] PearlandLIPASE2024-08-02 18:22:15* Test Item Value Reference Range Interpretation Comme nts LIPASE (test code = 3702082836) 75 U/L 0-220 Lab Interpretation (test cod e = 41357-7) Normal [facility] WITH [id number] 18:10:56* Test Item Value Reference Range Interpretation [...] 33.4 g/dL 31.6-35.1 RDW-SD (test code = 69938-7) 48.7 fL 39.0-49.9 RDW-CV (test code = 788-0) 13.1 % 12.0-15.5 PLT (test code = 777-3) 227 166-358 MPV (test code = 13843-3) 10.3 fL 9.5-12.9 NRBC/100 WBC (test code = 1397479372) 0.0 0.0-10.0 NRBC x10^3 (test code = 5347010444) See_Comment [Automated messa ge] The system which generated this result transmitted reference range: 10*3/?L. The reference range was not used to interpret this result as normal/abnormal. GRAN MAT (NEUT) % (test code = 770-8) 72.0 % IMM GRAN % (test code = 2781664324) 0.40 % LYMPH % (test code = 736-9) 13.8 % MONO % (test code = 5905-5) 12.5 % EOS % (test code = 713-8) 0.4 % BASO % (test code = 706-2) 0.9 % GRAN MAT x10^3(ANC) (test code = 2042651327) 5.35 10*3/uL 1.88-7.09 IMM GRAN x10^3 (test code = 0470264672) 0.03 10*3/uL 0.00-0.06 LYMPH x10^3 (test code = 731-0) 1.03 10*3/uL 1.32-3.29 L MONO x10^3 (test code = 742-7) 0.93 10*3/uL 0.33-0.92 H EOS x10^3 (test code = 711-2) 0.03 10*3/uL 0.03-0.39 BASO x10^3 (test code = 704-7) 0.07 10*3/uL 0.01-0.07 Lab Interpretation (test code = 29836-1) Abnormal [facility]landPOCT [id number] 04:25:00* Test Item Value Reference Range Interpretation Comme nts POCT PREG (test code = 1605) Negative On board controls acceptable with C Line (test code = 3574) Yes POCT PREG LOT # (test code = 3575) [id number] POCT PREG TEST DATE ( test code = 3576) 2024-08-29 Lab Interpretation (test cod e = 32364-6) Normal [facility] PearlandVitamin B12, Wuaed9894-24-40 19:32:47* Test Item Value Reference Range Interpretation Comme nts VIT B12 (test code = 1902977371) 541 pg/mL 240-930 JASMYN (test code = JASMYN) Biotin has been reported to cause a positive bias, interpret results relative to patient's use of biotin. Lab Interpretation (test code = 62016-4) Normal [facility] PearlandFolate2024-07-19 19:32:47* Test Item Value Reference Range Interpretation Comme nts FOLATE SER (test code = 3650860622) 5.0 ng/mL 3.0-20.0 Biotin has been reported to cause a positive bias, interpret results relative to patient's use of biotin. Lab Interpretation (test code = 03416-4) Normal [facility]CT HEAD WO [id number] 16:36:26EXAM: CT HEAD WO CONTRAST HISTORY: 33 years-old Female; Provided indication: Headache, new orworsening, neuro deficit (Age 18-49y) . [facility] obtained from [facility]Patient admitted for alcohol withdrawal, now with [...] mastoid aircells and visualized paranasal airsinuses are clear.[facility] PearlandMagnesium2024-07-19 10:13:17* Test Item Value Reference Range Interpretation Comme nts MAGNESIUM (test code = 4328853509) 1.6 mg/dL 1.7-2.4 L Lab Interpretation (test cod e = 95484-8) Abnormal [facility] Metabolic Panel (NA, K, CL, CO2, GLUCOSE, BUN, CREATININE, CA)2023-11-08 10:13:02* Test Item Value Reference Range Interpretation Comme nts NA (test code = 9292441055) 135 mmol/L 135-145 K (test code = 0687782836) 3.2 mmol/L 3.5-5.0 L CL (test code = 0802741900) 98 mmol/L 98-108 CO2 TOTAL (test code = 0646386910) 29 mmol/L 23-31 AGAP (test code = 7420850556) 8 2-16 BUN (test code = 0896890334) 5 mg/dL 7-23 L GLUCOSE (test code = 6519847114) 113 mg/dL 70-110 H CREATININE (test code = 2160-0) 0.50 mg/dL 0.50-1.04 CALCIUM (test code = 7883655675) 8.9 mg/dL 8.6-10.6 eGFR (test code = 71287-2) 127.2 mL/min/1.73m2 CKD-EPI eGFR (2020). Assuming creatinine has been stable day-to-day for at least three months, the eGFR indicates Category G1 (>= 90 mL/min/1.73 m2) Lab Interpretation (test code = 56028-6) Abnormal [facility] PearlandHepatic Function Panel (30619) (ALB,T.PRO,BILI T,BU/BC,ALT,AST,ALK PHOS)2023-11-08 10:13:02* Test Item Value Reference Range Interpretation Comme nts TOTAL BILI (test code = 3784582615) 1.3 mg/dL 0.1-1.1 H BILI UNCON (test code = 3067291550) 0.5 mg/dL 0.1-1.1 BILI CONJ (test code = 3768821178) 0.0 mg/dL 0.0-0.3 T PROTEIN (test code = 1442007970) 7.0 g/dL 6.3-8.2 ALBUMIN (test code = 3048905729) 4.0 g/dL 3.5-5.0 ALK PHOS (test code = 4844063610) 201 U/L 34-122 H ALTv (test code = 1742-6) 111 U/L 5-35 H AST(SGOT) (test code = 0709092368) 426 U/L 13-40 H Lab Interpretation (test cod e = 04043-8) Abnormal [facility] PearlandPhosphorus2024-07-19 10:13:01* Test Item Value Reference Range Interpretation Comme nts PHOSPHORUS (test code = 1949024264) 1.3 mg/dL 2.5-5.0 L Lab Interpretation (test cod e = 65240-8) Abnormal [facility] PearlandCbc without Xehp0090-55-98 09:41:55* Test Item Value Reference Range Interpretation [...] 160 166-358 L MPV (test code = 36319-5) 9.9 fL 9.5-12.9 RDW-CV (test code = 788-0) 13.2 % 12.0-15.5 RDW-SD (test code = 54628-7) 48.1 fL 39.0-49.9 NRBC x10^3 (test code = 0670788271) See_Comment [Automated messa ge] The system which generated this result transmitted reference range: 10*3/?L. The reference range was not used to interpret this result as normal/abnormal. NRBC/100 WBC (test code = 0651617896) 0.0 0.0-10.0 IPF % (test code = 9799548335) Lab Interpretation (test code = 00500-4) [facility] Laqtx9607-84-72 07:27:21* Test Item Value Reference Range Interpretation Comme nts LACTIC ACID (test code = 2092668464) 2.14 mmol/L 0.50-2.20 Lab Interpretation (test cod e = 11920-4) Normal [facility] Venous Blood Pcu4958-01-94 01:17:39 * Test Item Value Reference Range Interpretation Comme nts PH (test code = 5801753106) 7.28 7.32-7.42 L PCO2 TONY (test code = 8125254234) 35 41-51 L PO2 TONY (test code = 2435633046) 32 25-40 HCO3 TONY (test code = 5161761982) 16 24-28 L AC VBE(BEAKER) (test code = 0140282940) -9.8 mEq/L Lab Interpretation (test cod e = 99299-2) [facility] Sjmmh1893-32-70 01:07:01* Test Item Value Reference Range Interpretation Comme nts LACTIC ACID (test code = 5992748436) 3.31 mmol/L 0.50-2.20 H Lab Interpretation (test cod e = 11295-4) Abnormal [facility] Ifzp4309-14-06 20:43:53Krista Cabrera MD ? ? 11/06/2023 ?3:43 [...] billable procedures and treating other patients. [facility] R0126-56-78 19:33:09* Test Item Value Reference Range Interpretation Comme nts TROPONIN I (test code = 5418068960) 0.004 ng/mL <=0.034 JASMYN (test code = [...] of biotin. Lab Interpretation (test code = 63206-2) Normal [facility]landETHANOL2024-07-17 19:33:09* Test Item Value Reference Range Interpretation Comme nts ALCOHOL (test code = 0479064632) 363 mg/dL JASMYN (test code = JASMYN) <10 Ifcjoodt96-980 Toxic>100 Depression of IT SUPPORT CONSULTANT>400 Fatalities Reported [facility]landN-TERMINAL NJG-FCN6087-70-17 19:30:31* Test Item Value Reference Range Interpretation Comme nts NT-proBNP (test code = 60401-5) 108 pg/mL <=125 Lab Interpretation (test cod e = 19082-3) Normal [facility] PearlandPOCT ATIJ5438-38-67 19:25:00* Test Item Value Reference Range Interpretation Comme nts POCT PREG (test code = 1605) Negative On board controls acceptable with C Line (test code = 3574) Yes POCT PREG LOT # (test code = 3575) [id number] POCT PREG TEST DATE ( test code = 3576) 2024-08-27 Lab Interpretation (test cod e = 10964-8) Normal [facility] PearlandMagnesium2024-07-17 19:16:32* Test Item Value Reference Range Interpretation Comme nts MAGNESIUM (test code = 5044902192) 2.2 mg/dL 1.7-2.4 Lab Interpretation (test cod e = 62802-8) Normal [facility] PearlandCOMP. METABOLIC PANEL (61255)2023-11-06 19:16:12* Test Item Value Reference Range Interpretation Comme nts NA (test code = 7275783316) 141 mmol/L 135-145 K (test code = 3482703012) 4.3 mmol/L 3.5-5.0 CL (test code = 5921077284) 100 mmol/L 98-108 CO2 TOTAL (test code = 9657423630) 14 mmol/L 23-31 L AGAP (test code = 4710602972) 27 2-16 H BUN (test code = 8775029540) 12 mg/dL 7-23 GLUCOSE (test code = 7210341093) 60 mg/dL 70-110 L CREATININE (test code = 2160-0) 0.68 mg/dL 0.50-1.04 TOTAL BILI (test code = 2951977865) 1.4 mg/dL 0.1-1.1 H CALCIUM (test code = 2967008709) 9.0 mg/dL 8.6-10.6 T PROTEIN (test code = 5091905263) 9.7 g/dL 6.3-8.2 H ALBUMIN (test code = 9941149443) 5.4 g/dL 3.5-5.0 H ALK PHOS (test code = 1708771658) 207 U/L 34-122 H ALTv (test code = 1742-6) 79 U/L 5-35 H AST(SGOT) (test code = 5779074622) 154 U/L 13-40 H eGFR (test code = 64397-4) 118.1 mL/min/1.73m2 CKD-EPI eGFR (2020). Assuming creatinine has been stable day-to-day for at least three months, the eGFR indicates Category G1 (>= 90 mL/min/1.73 m2) Lab Interpretation (test code = 94231-2) Abnormal [facility] PearlandLIPASE2024-07-17 19:15:46* Test Item Value Reference Range Interpretation Comme nts LIPASE (test code = 2603131098) 117 U/L 0-220 Lab Interpretation (test cod e = 92446-2) Normal [facility] WITH JMGJ9479-98-57 19:07:27* Test Item Value Reference Range Interpretation [...] 32.3 g/dL 31.6-35.1 RDW-SD (test code = 22631-6) 53.5 fL 39.0-49.9 H RDW-CV (test code = 788-0) 13.9 % 12.0-15.5 PLT (test code = 777-3) 345 166-358 MPV (test code = 95243-8) 9.2 fL 9.5-12.9 L NRBC/100 WBC (test code = 7911471169) 0.0 0.0-10.0 NRBC x10^3 (test code = 9085319128) See_Comment [Automated messa ge] The system which generated this result transmitted reference range: 10*3/?L. The reference range was not used to interpret this result as normal/abnormal. GRAN MAT (NEUT) % (test code = 770-8) 57.5 % IMM GRAN % (test code = 1088778872) 0.90 % LYMPH % (test code = 736-9) 29.1 % MONO % (test code = 5905-5) 10.5 % EOS % (test code = 713-8) 0.0 % BASO % (test code = 706-2) 2.0 % GRAN MAT x10^3(ANC) (test code = 2446175274) 3.65 10*3/uL 1.88-7.09 IMM GRAN x10^3 (test code = 5084980274) 0.06 10*3/uL 0.00-0.06 LYMPH x10^3 (test code = 731-0) 1.85 10*3/uL 1.32-3.29 MONO x10^3 (test code = 742-7) 0.67 10*3/uL 0.33-0.92 EOS x10^3 (test code = 711-2) 0.03-0.39 L BASO x10^3 (test code = 704-7) 0.13 10*3/uL 0.01-0.07 H Lab Interpretation (test code = 49807-0) Abnormal [facility]landAC PANEL 21 + LACTIC TJZH0448-78-69 18:57:00* Test Item Value Reference Range Interpretation Comme nts PH (test code = 4068954733) 7.16 7.32-7.42 LL PCO2 TONY (test code = 9674683070) 37 41-51 L PO2 TONY (test code = 7857480299) 44 25-40 H HCO3 TONY (test code = 0460599283) 13 24-28 L AC VBE(BEAKER) (test code = 4858042312) -15.1 mEq/L THB TONY (test code = 2831574570) 15.7 g/dL 12.0-16.0 %O2HB TONY (test code = 2941619370) 72.1 % 52.0-63.0 H %COHB TONY (test code = 4048153694) 0.4 % 0.0-1.5 %METHB TONY (test code = 2343782492) 0.3 % 0.4-1.5 L VOL%O2 TONY (test code = 5234195825) 15.9 % 6.0-12.0 H NA (test code = 5549046319) 142 mmol/L 135-145 K+ (test code = 2878077202) 4.2 mmol/L 3.5-5.0 AC CA IONZ (test code = 0576831986) 4.90 mg/dL 4.50-5.30 GLUCOSE (test code = 0052585905) 49 mg/dL 70-110 LL LACTIC ACID (test code = 0830010267) 3.62 mmol/L 0.50-2.20 H Lab Interpretation (test cod e = 34630-0) Abnormal [facility] PearlandEthanol2024-07-08 05:06:04* Test Item Value Reference Range Interpretation Comme nts ALCOHOL (test code = 4840499730) 416 mg/dL JASMYN (test code = JASMYN) <10 Csnszzup66-761 Toxic>100 Depression of IT SUPPORT CONSULTANT>400 Fatalities Reported [facility] PearlandSalicylate2024-07-08 04:57:31 SALICYLATE<10mg/L10/27/2023 11:57 PM [facility]Therapeutic Range: ? Analgesic and Antipyretic Use ? 20- 100 mg/L ? ? Anti-Inflammatory Use ?100-250 mg/L Toxic Range: ? Greater than 300 mg/LUnValley [facility] Center – BrownsvilleAcetaminophen2024-07-08 04:57:16* Test Item Value Reference Range Interpretation Comme nts ACETAMINOP (test code = 2531295338) 10.0-30.0 L JASMYN (test code = JASMYN) Toxic: Greater coreen n 200 ug/mL @ 4 hour post ingestion or greater than 50 ug/mL @ 12 hour post ingestion Lab Interpretation (test code = 15486-1) Abnormal [facility]. METABOLIC PANEL (79001)2023-10-28 04:56:21* Test Item Value Reference Range Interpretation Comme nts NA (test code = 0991449270) 143 mmol/L 135-145 K (test code = 8885153112) 4.1 mmol/L 3.5-5.0 CL (test code = 2011888618) 102 mmol/L 98-108 CO2 TOTAL (test code = 4204914118) 27 mmol/L 23-31 AGAP (test code = 8578683289) 14 2-16 BUN (test code = 4776524988) 13 mg/dL 7-23 GLUCOSE (test code = 2912257737) 75 mg/dL 70-110 CREATININE (test code = 2160-0) 0.59 mg/dL 0.50-1.04 TOTAL BILI (test code = 8757758078) 1.2 mg/dL 0.1-1.1 H CALCIUM (test code = 2884322425) 8.9 mg/dL 8.6-10.6 T PROTEIN (test code = 8436882965) 8.4 g/dL 6.3-8.2 H ALBUMIN (test code = 7469982459) 4.6 g/dL 3.5-5.0 ALK PHOS (test code = 4879377010) 169 U/L 34-122 H ALTv (test code = 1742-6) 82 U/L 5-35 H AST(SGOT) (test code = 4468539646) 217 U/L 13-40 H eGFR (test code = 15349-1) 122.2 mL/min/1.73m2 CKD-EPI eGFR (2020). Assuming creatinine has been stable day-to-day for at least three months, the eGFR indicates Category G1 (>= 90 mL/min/1.73 m2) Lab Interpretation (test code = 68544-7) Abnormal [facility] WITH [id number] 03:57:19* Test Item Value Reference Range Interpretation [...] 33.5 g/dL 31.6-35.1 RDW-SD (test code = 71759-2) 55.2 fL 39.0-49.9 H RDW-CV (test code = 788-0) 14.6 % 12.0-15.5 PLT (test code = 777-3) 210 166-358 MPV (test code = 16077-7) 9.3 fL 9.5-12.9 L NRBC/100 WBC (test code = 6421710172) 0.0 0.0-10.0 NRBC x10^3 (test code = 0162013170) See_Comment [Automated messa ge] The system which generated this result transmitted reference range: 10*3/?L. The reference range was not used to interpret this result as normal/abnormal. GRAN MAT (NEUT) % (test code = 770-8) 49.7 % IMM GRAN % (test code = 4131769207) 0.20 % LYMPH % (test code = 736-9) 38.7 % MONO % (test code = 5905-5) 9.4 % EOS % (test code = 713-8) 0.4 % BASO % (test code = 706-2) 1.6 % GRAN MAT x10^3(ANC) (test code = 2406062430) 2.55 10*3/uL 1.88-7.09 IMM GRAN x10^3 (test code = 6860186614) 0.00-0.06 LYMPH x10^3 (test code = 731-0) 1.98 10*3/uL 1.32-3.29 MONO x10^3 (test code = 742-7) 0.48 10*3/uL 0.33-0.92 EOS x10^3 (test code = 711-2) 0.03-0.39 L BASO x10^3 (test code = 704-7) 0.08 10*3/uL 0.01-0.07 H Lab Interpretation (test code = 50587-6) Abnormal [facility] [id number] 03:42:00* Test Item Value Reference Range Interpretation Comme nts POCT PREG (test code = 1605) Negative On board controls acceptable with C Line (test code = 3574) Yes POCT PREG LOT # (test code = 3575) 403182 POCT PREG TEST DATE ( test code = 3576) 08/27/2024 Lab Interpretation (test cod e = 87006-6) Normal [facility] GLUCOSE (AUTOMATED)2023-10-19 15:53:48* Test Item Value Reference Range Interpretation Comme nts POCT GLU (test code = 1279567602) 69 mg/dL 70-110 L Notified Provide r Lab Interpretation (test code = 30866-7) Abnormal [facility] GLUCOSE(AGE >30DAYS)2023-10-19 15:53:00* Test Item Value Reference Range Interpretation Comme nts POCT Glu (age>30days) (test code = 3342) 69 mg/dL, ED provider notified 70-110 Lab Interpretation (test code = 86908-6) Normal [facility] PearlandLaazic Acid Whole Cgjov3325-00-77 21:09:38* Test Item Value Reference Range Interpretation Comme nts LACTIC ACID (test code = 7228445000) 2.03 mmol/L 0.50-2.20 Lab Interpretation (test cod e = 57524-1) Normal [facility] PearlandLipase2024-05-30 19:51:22* Test Item Value Reference Range Interpretation Comme nts LIPASE (test code = 3730844546) 317 U/L 0-220 H Lab Interpretation (test cod e = 45762-5) Abnormal [facility] with Yfjn2927-67-47 18:33:19* Test Item Value Reference Range Interpretation [...] 34.6 g/dL 31.6-35.1 RDW-SD (test code = 42687-1) 46.7 fL 39.0-49.9 RDW-CV (test code = 788-0) 13.2 % 12.0-15.5 PLT (test code = 777-3) 90 166-358 L MPV (test code = 47616-6) 9.6 fL 9.5-12.9 IPF % (test code = 9956344900) 3.9 % 1.3-7.7 Platelet count measured by fluorescence method. NRBC/100 WBC (test code = 0421183345) 0.0 0.0-10.0 NRBC x10^3 (test code = 2350442250) See_Comment [Automated [employer]] The system which generated this result transmitted reference range: 10*3/?L. The reference range was not used to interpret this result as normal/abnormal. GRAN MAT (NEUT) % (test code = 770-8) 68.9 % IMM GRAN % (test code = 8147351916) 1.20 % LYMPH % (test code = 736-9) 20.5 % MONO % (test code = 5905-5) 8.3 % EOS % (test code = 713-8) 0.3 % BASO % (test code = 706-2) 0.8 % GRAN MAT x10^3(ANC) (test code = 2994770844) 4.06 10*3/uL 1.88-7.09 IMM GRAN x10^3 (test code = 5376779532) 0.07 10*3/uL 0.00-0.06 H LYMPH x10^3 (test code = 731-0) 1.21 10*3/uL 1.32-3.29 L MONO x10^3 (test code = 742-7) 0.49 10*3/uL 0.33-0.92 EOS x10^3 (test code = 711-2) 0.03-0.39 L BASO x10^3 (test code = 704-7) 0.05 10*3/uL 0.01-0.07 BANDS (test code = 3738172878) Increased A Lab Interpretation (test code = 10806-1) Abnormal [facility]landCreatine Kdefxk1004-27-15 18:21:08* Test Item Value Reference Range Interpretation Comme nts CK (test code = 6813826996) 112 U/L 33-194 Lab Interpretation (test cod e = 44893-0) Normal [facility]landComp. Metabolic Panel (99419)2023-09-19 18:01:22* Test Item Value Reference Range Interpretation Comme nts NA (test code = 1715092035) 139 mmol/L 135-145 K (test code = 7175009331) 3.5 mmol/L 3.5-5.0 CL (test code = 6527730158) 97 mmol/L 98-108 L CO2 TOTAL (test code = 0984468565) 29 mmol/L 23-31 AGAP (test code = 7751684289) 13 2-16 BUN (test code = 5284433447) 14 mg/dL 7-23 GLUCOSE (test code = 9733197648) 116 mg/dL 70-110 H CREATININE (test code = 2160-0) 0.64 mg/dL 0.50-1.04 TOTAL BILI (test code = 3227692172) 1.0 mg/dL 0.1-1.1 CALCIUM (test code = 9143945407) 8.9 mg/dL 8.6-10.6 T PROTEIN (test code = 8126707653) 8.7 g/dL 6.3-8.2 H ALBUMIN (test code = 8896846814) 4.7 g/dL 3.5-5.0 ALK PHOS (test code = 5160574190) 267 U/L 34-122 H ALTv (test code = 1742-6) 63 U/L 5-35 H AST(SGOT) (test code = 6366366541) 277 U/L 13-40 H eGFR (test code = 95249-8) 119.8 mL/min/1.73m2 CKD-EPI eGFR (2020). Assuming creatinine has been stable day-to-day for at least three months, the eGFR indicates Category G1 (>= 90 mL/min/1.73 m2) Lab Interpretation (test code = 21830-4) Abnormal [facility]landXR CHEST 1 RT0036-00-12 17:15:42HISTORY: Tachycardia, cough, COVID. TECHNIQUE: Portable AP upright view of the chest is obtained. Comparisonmade with 09/13/2023 study. FINDINGS: No acute pneumonia. No pneumothorax or pleural effusion orpulmonary congestion detected. Cardiac size is within normal limits. CONCLUSIONS: No signs of acute cardiopulmonary disease. [facility] PearlandLactic Acid Whole Ryzxb5161-92-79 17:11:09* Test Item Value Reference Range Interpretation Comme nts LACTIC ACID (test code = 8004147484) 4.10 mmol/L 0.50-2.20 H Lab Interpretation (test cod e = 71442-4) Abnormal [facility]landCT CHEST PULMONARY ZPQWJVSPB9369-41-41 17:58:59Provider: CECILE RANGEL Exam: CT CHEST PULMONARY [...] Within normal limits. Musculoskeletal: No acute bony abnormality.[facility] PearlandTROPONIN [id number] 17:47:34* Test Item Value Reference Range Interpretation Comme nts TROPONIN I (test code = 1824763703) 0.003 ng/mL <=0.034 JASMYN (test code = [...] of biotin. Lab Interpretation (test code = 03160-9) Normal [facility] PearlandN-TERMINAL LSN-ZMC4130-14-26 17:45:17* Test Item Value Reference Range Interpretation Comme [facility] NT-proBNP (test code = 01568-9) 48 pg/mL <=125 Lab Interpretation (test cod e = 16659-7) Normal [facility] PearlandCOMP. METABOLIC PANEL (91269)2023-09-15 17:36:58* Test Item Value Reference Range Interpretation Comme nts NA (test code = 6582728142) 144 mmol/L 135-145 K (test code = 8648317740) 3.4 mmol/L 3.5-5.0 L CL (test code = 6699511621) 102 mmol/L 98-108 CO2 TOTAL (test code = 8405849334) 33 mmol/L 23-31 H AGAP (test code = 2129959995) 9 2-16 BUN (test code = 2720450696) 7 mg/dL 7-23 GLUCOSE (test code = 1068212061) 91 mg/dL 70-110 CREATININE (test code = 2160-0) 0.63 mg/dL 0.50-1.04 TOTAL BILI (test code = 1732944262) 1.0 mg/dL 0.1-1.1 CALCIUM (test code = 4060921033) 8.5 mg/dL 8.6-10.6 L T PROTEIN (test code = 5469096930) 8.0 g/dL 6.3-8.2 ALBUMIN (test code = 6426621912) 4.2 g/dL 3.5-5.0 ALK PHOS (test code = 3496908335) 182 U/L 34-122 H ALTv (test code = 1742-6) 48 U/L 5-35 H AST(SGOT) (test code = 1943717201) 175 U/L 13-40 H eGFR (test code = 25271-3) 120.3 mL/min/1.73m2 CKD-EPI eGFR (2020). Assuming creatinine has been stable day-to-day for at least three months, the eGFR indicates Category G1 (>= 90 mL/min/1.73 m2) Lab Interpretation (test code = 91696-5) Abnormal [facility] PearlandD-TXNXU5310-02-92 17:13:34* Test Item Value Reference Range Interpretation Comments D-DIMER (test code = 8250997832) 0.93 See_Comment H [Automated message] The system [...] a diagnosis. Lab Interpretation (test code = 38878-4) Abnormal [facility] PearlandCB WITH TXTA8594-30-68 17:06:37* Test Item Value Reference Range Interpretation [...] 34.4 g/dL 31.6-35.1 RDW-SD (test code = 19356-1) 46.2 fL 39.0-49.9 RDW-CV (test code = 788-0) 12.9 % 12.0-15.5 PLT (test code = 777-3) 150 166-358 L MPV (test code = 39086-0) 9.1 fL 9.5-12.9 L NRBC/100 WBC (test code = 8702229996) 0.0 0.0-10.0 NRBC x10^3 (test code = 4201512790) See_Comment [Automated messa ge] The system which generated this result transmitted reference range: 10*3/?L. The reference range was not used to interpret this result as normal/abnormal. GRAN MAT (NEUT) % (test code = 770-8) 50.9 % IMM GRAN % (test code = 2853460198) 0.50 % LYMPH % (test code = 736-9) 39.0 % MONO % (test code = 5905-5) 7.1 % EOS % (test code = 713-8) 1.0 % BASO % (test code = 706-2) 1.5 % GRAN MAT x10^3(ANC) (test code = 9179299698) 3.02 10*3/uL 1.88-7.09 IMM GRAN x10^3 (test code = 0410046323) 0.03 10*3/uL 0.00-0.06 LYMPH x10^3 (test code = 731-0) 2.31 10*3/uL 1.32-3.29 MONO x10^3 (test code = 742-7) 0.42 10*3/uL 0.33-0.92 EOS x10^3 (test code = 711-2) 0.06 10*3/uL 0.03-0.39 BASO x10^3 (test code = 704-7) 0.09 10*3/uL 0.01-0.07 H Lab Interpretation (test code = 46940-9) Abnormal [facility] PearlandLactic Acid Whole Hduup9281-58-88 16:57:54* Test Item Value Reference Range Interpretation Comme [facility] LACTIC ACID (test code = 2225689921) 1.81 mmol/L 0.50-2.20 Lab Interpretation (test cod e = 82457-8) Normal [facility] HAWH9019-05-45 16:53:00* Test Item Value Reference Range Interpretation Comme nts POCT PREG (test code = 1605) Negative On board controls acceptable with C Line (test code = 3574) Yes POCT PREG LOT # (test code = 3575) [id number] POCT PREG TEST DATE ( test code = 3576) 08-23-2024 Lab Interpretation (test cod e = 56545-9) Normal [facility] CHEST 2 [id number] 00:39:44Exam: Chest (2 Views), 09/13/2023 6:30 PM. Ordering Physician: ELENO OLMSTEAD. History: fever . Technique: Two views of the chest. Comparison: None. Findings: No focal consolidation. No pneumothorax or effusion. Normal size of thecardiac silhouette. No acute osseous finding.[facility] JDXO7639-43-94 00:14:00* Test Item Value Reference Range Interpretation Comme nts POCT PREG (test code = 1605) Negative On board controls acceptable with C Line (test code = 3574) Yes POCT PREG LOT # (test code = 3575) [id number] POCT PREG TEST DATE ( test code = 3576) 05/27/2024 Lab Interpretation (test cod e = 66795-5) Normal [facility]landTransthoracic echo (TTE)2023-04-27 05:37:38* Test Item Value Reference Range Interpretation Comme nts Height (test code = 4740406081) 67 in Weight (test code = 2129608042) 109 lbs Systolic BP (test code = 7345503058) 102 mmHg Diastolic BP (test code = 7499866457) 67 mmHg Heart Rate (test code = 3381097026) 78 bpm BSA (test code = 2400794481) 1.56 m2 Ao root diam (test code = 3128894168) 3.10 cm Aortic root (test code = 5467743266) 3.1 cm Ao root annulus (test code = 2149334860) 3.1 cm LVOT diameter (test code = 9677289491) 2.02 cm LVOT area (test code = 4346454679) 3.20 cm2 LVIDD (test code = 2643225884) 3.60 cm Left Ventricular End Diastolic Volume by Teichholz Method (test code = 8660367) 56.1 mL IVS (test code = 7435472875) 0.63 cm Interventricular Septum Diastolic Thickness by 2D (test code = 3959766) 0.63 cm LVPWD (test code = 2578437989) 0.65 cm PW (test code = 9952472298) 0.65 cm 0.6-1.1 EF(Teich) (test code = 1482138922) 54.30 % LVIDS (test code = 8094746135) 2.60 cm Left Ventricular End Systolic Volume by Teichholz Method (test code = 3861249) 25.6 mL FS (test code = 0910091460) 28 % EF - 2D (test code = 91084944) 54.30 % LA size (test code = 7962161874) 2.8 cm LAV(MOD-sp4) (test code = 4304915420) 25.30 mL E wave decelartion time (test code = 1829131842) 0.19 s MV stenosis pressure 1/2 time (test code = 8700705759) 55.0 ms MV Peak A Liv (test code = 6478962078) 50.8 cm/s MV Peak E Liv (test code = 5257953787) 84.4 cm/s E/A ratio (test code = 9518407896) 1.66 ratio MV Prop V (test code = 3491876254) 37.10 cm/s MV E/e' septal (test code = 4080014177) 22.4 cm/s Tapse (test code = 7440301329) 1.68 cm LVOT stroke volume (test code = 9224718891) 46.00 cm3 LVOT peak liv (test code = 3884890044) 77.0 cm/s LVOT mn grad (test code = 2504106546) 1.3 mmHg AV LVOT peak gradient (test code = 6231402850) 2.37 mmHg LVOT peak VTI (test code = 8781808728) 14.3 cm LV V1 mean (test code = 6562715088) 54.20 cm/s Aortic valve mean velocity (test code = 3748809520) 82.4 cm/s Ao peak liv (test code = 3488033986) 108.4 cm/s Ao VTI (test code = 6620196580) 20.9 cm AV area by cont VTI (test code = 3128578574) 2.2 cm2 AV area peak liv (test code = 6120334230) 2.3 cm2 Ao max PG (test code = 6838058151) 4.70 mm[Hg] AV peak gradient (test code = 3300031048) 4.7 mmHg AV valve area (test code = 0171569890) 2.20 cm2 AV mean gradient (test code = 5226426724) 2.9 mmHg MR max PG (test code = 9544001252) 94.40 mm[Hg] MR max liv (test code = 5978751685) 485.70 cm/s Mr max liv (test code = 6283479124) 485.7 m/s Radiology Study observation (narrative) (test code = 31083-5) JASMYN (test code = JASMYN) ?Left?Ventricle: Left [...] 2D, color flow Doppler and spectral Doppler. [facility] with Numdbnynncyf6587-84-88 12:37:35* Test Item Value Reference Range Interpretation Comme nts WBC (test code = 6690-2) 3.78 See_Comment L [Automated [employer]] The system which generated this result transmitted reference range: 4.30 - 11.10 10*3/?L. The reference range was not used to interpret this result as normal/abnormal. RBC (test code = 789-8) 2.95 See_Comment L [Automated [employer]OS] The system which generated this result transmitted [...] 33.8 g/dL 31.6-35.1 RDW-SD (test code = 74053-1) 45.7 fL 39.0-49.9 RDW-CV (test code = 788-0) 12.6 % 12.0-15.5 PLT (test code = 777-3) 95 See_Comment L [Automated [employer]] The system which generated this result transmitted reference range: 166 - 358 10*3/?L. The reference range was not used to interpret this result as normal/abnormal. MPV (test code = 85243-2) 11.6 fL 9.5-12.9 IPF % (test code = 8582626399) 9.1 % 1.3-7.7 H Platelet count measured by fluorescence method. NRBC/100 WBC (test code = 0506407458) 0.0 See_Comment [Automated [employer] ssage] The system which generated this result transmitted reference range: 0.0 - 10.0 /100 WBCs. The reference range was not used to interpret this result as normal/abnormal. NRBC x10^3 (test code = 1507697581) See_Comment [Automated [employer]] The system which generated this result transmitted reference range: 10*3/?L. The reference range was not used to interpret this result as normal/abnormal. SEG % (test code = 46418-7) 56 % 33-76 LYMPH % (test code = 27231-6) 32 % 14-54 MONO % (test code = 19820-4) 12 % 0-4 H ANC (test code = 753-4) 2.12 10*3/uL 1.88-7.09 Lab Interpretation (test code = 32212-9) Abnormal [facility]landProthrombin Time / [id number] 11:49:08* Test Item Value Reference Range Interpretation Comme [facility] PROTIME PATIENT (test code = 5964-2) 15.3 See_Comment H [Automated [employer]] The system which generated this result transmitted reference range: 12.0 - 14.7 Seconds. The reference range was not used to interpret this result as normal/abnormal. INR (test code = 6301-6) 1.2 Normal INR <1.1; Warfarin Therapeutic range 2.0 to 3.0 or 2.5 to 3.5, depending upon the indications. Lab Interpretation (test code = 80008-5) Abnormal [facility]landaPTT2024-01-04 11:49:08* Test Item Value Reference Range Interpretation Comme [facility] APTT Patient (test code = 3173-2) 29 See_Comment [Automated message] The system which generated this result transmitted reference range: 23 - 38 Seconds. The reference range was not used to interpret this result as normal/abnormal. JASMYN (test code = JASMYN) The [facility] patient population mean normal value for aPTT is 30 seconds. Lab Interpretation (test code = 05585-3) Normal [facility] PearlandComp. Metabolic Panel (25865)2023-04-25 11:44:23* Test Item Value Reference Range Interpretation Comme nts NA (test code = 7840279889) 136 mmol/L 135-145 K (test code = 2799282473) 2.6 mmol/L 3.5-5.0 LL CL (test code = 3018074200) 100 mmol/L 98-108 CO2 TOTAL (test code = 3943261231) 30 mmol/L 23-31 AGAP (test code = 5971946521) 6 2-16 BUN (test code = 2054588569) 16 mg/dL 7-23 GLUCOSE (test code = 5949695890) 96 mg/dL 70-110 CREATININE (test code = 9340640276) 0.71 mg/dL 0.50-1.04 TOTAL BILI (test code = 1825066026) 4.0 mg/dL 0.1-1.1 H CALCIUM (test code = 8510506790) 7.5 mg/dL 8.6-10.6 L T PROTEIN (test code = 9745168337) 5.8 g/dL 6.3-8.2 L ALBUMIN (test code = 0683045589) 3.0 g/dL 3.5-5.0 L ALK PHOS (test code = 4861647069) 170 U/L 34-122 H ALTv (test code = 1742-6) 50 U/L 5-35 H AST(SGOT) (test code = 1327966403) 139 U/L 13-40 H eGFR (test code = 78247-3) 115.3 mL/min/1.73m2 CKD-EPI eGFR (2020). Assuming creatinine has been stable day-to-day for at least three months, the eGFR indicates Category G1 (>= 90 mL/min/1.73 m2) Lab Interpretation (test code = 78511-9) Abnormal [facility] PearlandMagnesium Pqusu7316-42-02 11:43:47* Test Item Value Reference Range Interpretation Comme nts MAGNESIUM (test code = 7011270186) 2.0 mg/dL 1.7-2.4 Lab Interpretation (test cod e = 88061-8) Normal [facility]landN-TERMINAL CAA-LWE9428-91-04 11:43:47* Test Item Value Reference Range Interpretation Comme nts NT-proBNP (test code = 28973-8) 399 pg/mL <=125 JASMYN (test code = JASMYN) Result Indeterminate-Consid er causes of NT-proBNP elevation other than Heart failure such as acute coronary syndrome, pulmonary embolism, pulmonary hypertension, sepsis, stroke, and renal dysfunction. Lab Interpretation (test code = 01289-4) Abnormal [facility] PearlandLipase2024-01-04 11:43:47* Test Item Value Reference Range Interpretation Comme nts LIPASE (test code = 6793654195) 475 U/L 0-220 H Lab Interpretation (test cod e = 06979-6) Abnormal [facility] PearlandPhosphorus Ianyr8248-62-21 06:12:16* Test Item Value Reference Range Interpretation Comme nts PHOSPHORUS (test code = 2425478912) 2.0 mg/dL 2.5-5.0 L Slight hemolysis Lab Interpretation (test code = 21878-6) Abnormal [facility] PearlandLipase2024-01-04 04:47:27* Test Item Value Reference Range Interpretation Comme nts LIPASE (test code = 9324257478) 506 U/L 0-220 H Lab Interpretation (test cod e = 53773-6) Abnormal [facility]landCT ABDOMEN PELVIS W CRGKRUBT7199-26-04 01:43:47History: Abdominal abscess/infection suspected Elevated bilirubin 6.9, [...] obstruction, perforation, or abscess. The osseous structures areunremarkable.[facility] PearlandEthanol2024-01-04 00:23:03 ALCOHOL<10mg/dL04/24/2023 6:23 PM [facility]<10 Ghsucwuo76-186 Toxic>100 Depression of IT SUPPORT CONSULTANT>400 Fatalities ReportedUnValley Baptist Medical Center – BrownsvilleAmmonia, Opifrz3696-85-11 23:56:33* Test Item Value Reference Range Interpretation Comme nts AMMONIA (test code = 6450731841) 24 umol/L 9-33 Lab Interpretation (test cod e = 46151-0) Normal [facility] PearlandPOCT Xcpo9035-89-59 23:41:00* Test Item Value Reference Range Interpretation Comme nts POCT PREG (test code = 1605) Negative On board controls acceptable with C Line (test code = 3574) Yes POCT PREG LOT # (test code = 3575) [id number] POCT PREG TEST DATE ( test code = 3576) 06/30/2024 Lab Interpretation (test cod e = 22874-9) Normal [facility] PearlandMagnesium2024-01-03 23:24:49* Test Item Value Reference Range Interpretation Comme nts MAGNESIUM (test code = 7139581278) 1.4 mg/dL 1.7-2.4 L Lab Interpretation (test cod e = 35794-3) Abnormal [facility] PearlandComp. Metabolic Panel (22141)2023-04-24 23:24:28* Test Item Value Reference Range Interpretation Comme nts NA (test code = 7068844084) 134 mmol/L 135-145 L K (test code = 8216744867) 3.6 mmol/L 3.5-5.0 CL (test code = 6102059668) 91 mmol/L 98-108 L CO2 TOTAL (test code = 5095232022) 31 mmol/L 23-31 AGAP (test code = 0311980735) 12 2-16 BUN (test code = 2018530661) 24 mg/dL 7-23 H GLUCOSE (test code = 7390242315) 104 mg/dL 70-110 CREATININE (test code = 1082655619) 1.13 mg/dL 0.50-1.04 H TOTAL BILI (test code = 6329865177) 6.9 mg/dL 0.1-1.1 H CALCIUM (test code = 6001599427) 9.5 mg/dL 8.6-10.6 T PROTEIN (test code = 6824093608) 8.6 g/dL 6.3-8.2 H ALBUMIN (test code = 9994157123) 4.6 g/dL 3.5-5.0 ALK PHOS (test code = 2310612010) 243 U/L 34-122 H ALTv (test code = 1742-6) 70 U/L 5-35 H AST(SGOT) (test code = 9579816621) 203 U/L 13-40 H eGFR (test code = 68381-1) 66.0 mL/min/1.73m2 CKD-EPI eGFR (2020). Assuming creatinine has been stable day-to-day for at least three months, the eGFR indicates Category G2 (60 - 89 mL/min/1.73 m2) Lab Interpretation (test code = 42986-9) Abnormal [facility] PearlandProthrombin Time / [id number] 23:23:27* Test Item Value Reference Range Interpretation Comme [facility] PROTIME PATIENT (test code = 5964-2) [...] the indications. Lab Interpretation (test code = 37622-9) Abnormal [facility] PearlandActivated Partial Thrmplas Clk6368-68-19 23:19:26* Test Item Value Reference Range Interpretation Comme [facility] APTT Patient (test code = 3173-2) 29 See_Comment [Automated message] The system which generated this result transmitted reference range: 23 - 38 Seconds. The reference range was not used to interpret this result as normal/abnormal. JASMYN (test code = JASMYN) The [facility] patient population mean normal value for aPTT is 30 seconds. Lab Interpretation (test code = 95019-0) Normal [facility] PearlandCbc with Xueh8467-67-07 23:17:49* Test Item Value Reference Range Interpretation Comme nts WBC (test code = 6690-2) 6.47 See_Comment [Automated [employer] ge] The system which generated this result transmitted reference range: 4.30 - 11.10 10*3/?L. The reference range was not used to interpret this result as normal/abnormal. RBC (test code = 789-8) 3.85 See_Comment L [Automated [employer] ge] The system which generated this result [...] 35.0 g/dL 31.6-35.1 RDW-SD (test code = 60609-2) 44.6 fL 39.0-49.9 RDW-CV (test code = 788-0) 12.4 % 12.0-15.5 PLT (test code = 777-3) 123 See_Comment L [Automated messa ge] The system which generated this result transmitted reference range: 166 - 358 10*3/?L. The reference range was not used to interpret this result as normal/abnormal. MPV (test code = 41734-1) 11.9 fL 9.5-12.9 IPF % (test code = 3731810849) 11.9 % 1.3-7.7 H Platelet count measured by fluorescence method. NRBC/100 WBC (test code = 9904288797) 0.0 See_Comment [Automated [employer] ssage] The system which generated this result transmitted reference range: 0.0 - 10.0 /100 WBCs. The reference range was not used to interpret this result as normal/abnormal. NRBC x10^3 (test code = 3789757741) See_Comment [Automated [employer] ge] The system which generated this result transmitted reference range: 10*3/?L. The reference range was not used to interpret this result as normal/abnormal. GRAN MAT (NEUT) % (test code = 770-8) 59.8 % IMM GRAN % (test code = 4490591890) 0.30 % LYMPH % (test code = 736-9) 18.1 % MONO % (test code = 5905-5) 20.2 % EOS % (test code = 713-8) 0.5 % BASO % (test code = 706-2) 1.1 % GRAN MAT x10^3(ANC) (test code = 4322809005) 3.87 10*3/uL 1.88-7.09 IMM GRAN x10^3 (test code = 4549785389) 0.00-0.06 LYMPH x10^3 (test code = 731-0) 1.17 10*3/uL 1.32-3.29 L MONO x10^3 (test code = 742-7) 1.31 10*3/uL 0.33-0.92 H EOS x10^3 (test code = 711-2) 0.03 10*3/uL 0.03-0.39 BASO x10^3 (test code = 704-7) 0.07 10*3/uL 0.01-0.07 Lab Interpretation (test code = 59294-2) Abnormal [facility] PearlandUA RFLX MICR CULT IF BUQUDRDNW2573-67-19 04:32:00* Test Item Value Reference Range Interpretation [...] culture: Suprapubic PainSpecimen Description: CLEAN CATCHUR HCG QHUG6754-07-79 04:32:00* Test Item Value Reference Range Interpretation Comme nts UR HCG QUAL (test code = HCGQLU) NEGATIVE 1. Very dilute u rine specimens, as indicated by a lowspecific gravity, may not contain public utilities sales representative levels ofhCG. 2. False negative results may occur when the levels of hCGare below the sensitivity level of the test. If is still suspected, a first morningurine specimen should be collected 48 hours later andtested. Indication for culture: Suprapubic PainSpecimen Description: CLEAN CATCH COMPREHENSIVE METABOLIC [id number] 03:55:00* Test Item Value Reference Range Interpretation [...] ALKP) 173 units/L 46-116 H C REACTIVE XDVXMYV8573-33-75 03:55:00* Test Item Value Reference Range Interpretation Comme nts C REACTIVE PROTEIN (test cod e = CRP) 0.30 mg/dL < 0.3 N - CT MAXIFAC W/PMFAWWQE1306-61-01 03:43:00 [facility] 1990 Sex: F Patient Name: ETHEL AMATO Unit No: [id number] EXAMS: CPT CODE: [id number] CT MAXIFAC W/CONTRAST 53783 CT MAXILLOFACIAL WITH CONTRAST, 01/12/2023. CLINICAL: Pain. [...] DLP: 662.82 Trnscrbd D/ (0343) t.SDR.JS28 [facility] NAME: ETHEL AMATO Radiology Department PHYS: Jaocb Gill MD [address] : 1990 AGE: 32 SEX: F [place] [address] LOC: KianaERS PHONE #: [phone] EXAM DATE: 01/12/2023 STATUS: PRE ER FAX #: [phone] RAD NO: Page 1 Signed Report 1 Patient Name: ETHEL AMATO Unit No: [id number] EXAMS: CPT CODE: [id number] CT MAXIFAC W/CONTRAST 36606 (Continued) Orig Print D/T: S: 01/12/2023 (0346) [facility] NAME: ETHEL AMATO Radiology Department PHYS: Jacob Gill MD [address] : 1990 AGE: 32 SEX: F [place] [address] LOC: Richard.ERS PHONE #: [phone] EXAM DATE: 01/12/2023 STATUS: PRE ER FAX #: [phone] RAD NO: Page 2 Signed Report 1CBC W/AUTO [id number] 03:29:00* Test Item Value Reference Range Interpretation [...] Test Item Value Reference Range Interpretation Comme [facility] POCT GLU (test code = [id number]) 155 mg/dL 70-110 H Lab Interpretation (test cod e = 11527-8) Abnormal [facility] GLUCOSE (AUTOMATED)2022-11-11 18:35:24* Test Item Value Reference Range Interpretation Comme [facility] POCT GLU (test code = 8743232719) 126 mg/dL 70-110 H Lab Interpretation (test cod e = 55411-5) Abnormal [facility] GLUCOSE (AUTOMATED)2022-11-11 17:52:07* Test Item Value Reference Range Interpretation Comme nts POCT GLU (test code = 7902228719) 66 mg/dL 70-110 L Lab Interpretation (test cod e = 24766-3) [facility] 14:12:09* Test Item Value Reference Range Interpretation Comme nts MAGNESIUM (test code = 7852488636) 1.7 mg/dL 1.7-2.4 Slight hemolysis Lab Interpretation (test code = 65925-9) Normal [facility] GLUCOSE (AUTOMATED)2022-11-11 12:23:05* Test Item Value Reference Range Interpretation Comme nts POCT GLU (test code = 4770357414) 59 mg/dL 70-110 L Lab Interpretation (test cod e = 47744-9) Abnormal [facility] WITH [id number] 11:41:02* Test Item Value Reference Range Interpretation [...] 32.6 g/dL 31.6-35.1 RDW-SD (test code = 07732-3) 44.8 fL 39.0-49.9 RDW-CV (test code = 788-0) 11.5 % 12.0-15.5 L PLT (test code = 777-3) 158 See_Comment L [Automated messa ge] The system which generated this result transmitted reference range: 166 - 358 10*3/?L. The reference range was not used to interpret this result as normal/abnormal. MPV (test code = 18611-2) 10.3 fL 9.5-12.9 NRBC/100 WBC (test code = 6866863540) 0.0 See_Comment [Automated InviBox ssage] The system which generated this result transmitted reference range: 0.0 - 10.0 /100 WBCs. The reference range was not used to interpret this result as normal/abnormal. NRBC x10^3 (test code = 2869266093) See_Comment [Automated messa ge] The system which generated this result transmitted reference range: 10*3/?L. The reference range was not used to interpret this result as normal/abnormal. SEG % (test code = 18317-1) 37 % 33-76 BAND % (test code = 89563-3) 1 % 0-1 LYMPH % (test code = 61750-6) 42 % 14-54 MONO % (test code = 13712-6) 19 % 0-4 H EOS % (test code = 26903-9) 1 % 0-3 ANC (test code = 753-4) 1.24 10*3/uL 1.88-7.09 L Lab Interpretation (test code = 63288-1) [facility] 10:28:35* Test Item Value Reference Range Interpretation Comme nts LIPASE (test code = 8304180931) 745 U/L 0-220 H Lab Interpretation (test cod e = 88819-3) [facility]normal [facility] METABOLIC PANEL (86483)2022-11-11 10:28:35* Test Item Value Reference Range Interpretation Comme nts NA (test code = 4684438075) 138 mmol/L 135-145 K (test code = 1168308861) 3.0 mmol/L 3.5-5.0 L Slight hemolysis CL (test code = 7708468496) 113 mmol/L 98-108 H CO2 TOTAL (test code = 6993906793) 17 mmol/L 23-31 L AGAP (test code = 3239795319) 8 2-16 BUN (test code = 6780276120) 13 mg/dL 7-23 Slight hemolysis GLUCOSE (test code = 0640287516) 39 mg/dL 70-110 LL CREATININE (test code = 4716362297) 0.38 mg/dL 0.50-1.04 L TOTAL BILI (test code = 3101843798) 1.3 mg/dL 0.1-1.1 H CALCIUM (test code = 3601859263) 7.1 mg/dL 8.6-10.6 L T PROTEIN (test code = 2391243634) 5.1 g/dL 6.3-8.2 L ALBUMIN (test code = 4634260974) 2.5 g/dL 3.5-5.0 L ALK PHOS (test code = 0878456481) 80 U/L 34-122 Slight hemolysis ALTv (test code = 1742-6) 23 U/L 5-35 AST(SGOT) (test code = 5006119704) 56 U/L 13-40 H Slight hemolysis eGFR (test code = 7785979087) 196.3 mL/min/1.73m2 JASMYN (test code = JASMYN) [...] imaging tests). Lab Interpretation (test code = 67211-6) [facility]normal [facility] 08:25:59* Test Item Value Reference Range Interpretation Comme nts FOLATE SER (test code = 9188899787) 17.6 ng/mL 3.0-20.0 Biotin has been reported to cause a positive bias, interpret results relative to patient's use of biotin. Lab Interpretation (test code = 49933-1) Normal [facility]2023-07-22 22:46:37 ALCOHOL<10mg/dL11/10/2022 5:46 PM CDTUTMB LABORATORY SERVICESToxic Greater than or equal to 80 mg/dL. NOTE: Whole blood values are approximately 10% to 15% lower than serum and plasma.[facility] MET[facility]OLIC PANEL (85230)2022-11-10 22:45:51* Test Item Value Reference Range Interpretation Comme nts NA (test code = 0996772573) 145 mmol/L 135-145 K (test code = 2743898028) 3.6 mmol/L 3.5-5.0 CL (test code = 3130461398) 104 mmol/L 98-108 CO2 TOTAL (test code = 9025801917) 29 mmol/L 23-31 AGAP (test code = 5999499977) 12 2-16 BUN (test code = 1315366074) 20 mg/dL 7-23 GLUCOSE (test code = 4338610106) 75 mg/dL 70-110 CREATININE (test code = 7917791667) 0.62 mg/dL 0.50-1.04 TOTAL BILI (test code = 7672440628) 1.6 mg/dL 0.1-1.1 H CALCIUM (test code = 8553357737) 9.8 mg/dL 8.6-10.6 T PROTEIN (test code = 1157100710) 7.5 g/dL 6.3-8.2 ALBUMIN (test code = 7858259896) 4.4 g/dL 3.5-5.0 ALK PHOS (test code = 6008969693) 142 U/L 34-122 H ALTv (test code = 1742-6) 33 U/L 5-35 AST(SGOT) (test code = 6800202463) 65 U/L 13-40 H eGFR (test code = 2302061420) 111.6 mL/min/1.73m2 JASMYN (test code = JASMYN) [...] imaging tests). Lab Interpretation (test code = 40652-1) [facility]normal [facility] 22:45:51* Test Item Value Reference Range Interpretation Comme nts LIPASE (test code = 5114890230) 1920 U/L 0-220 H Lab Interpretation (test cod e = 20911-5) Abnormal [facility], [id number] 22:44:22* Test Item Value Reference Range Interpretation Comme nts PREG SERUM (test code = 3322436942) Negative JASMYN (test code = JASMYN) Less than 10 IU/L. ?If low titer or ectopic is suspected, resubmit specimen in 48-72 hours. [facility] WITH [id number] 22:37:30* Test Item Value Reference Range Interpretation [...] 32.6 g/dL 31.6-35.1 RDW-SD (test code = 56237-8) 44.8 fL 39.0-49.9 RDW-CV (test code = 788-0) 11.8 % 12.0-15.5 L PLT (test code = 777-3) 255 See_Comment [Automated messa ge] The system which generated this result transmitted reference range: 166 - 358 10*3/?L. The reference range was not used to interpret this result as normal/abnormal. MPV (test code = 64830-3) 9.9 fL 9.5-12.9 NRBC/100 WBC (test code = 5740042826) 0.0 See_Comment [Automated InviBox ssage] The system which generated this result transmitted reference range: 0.0 - 10.0 /100 WBCs. The reference range was not used to interpret this result as normal/abnormal. NRBC x10^3 (test code = 7847034764) See_Comment [Automated messa ge] The system which generated this result transmitted reference range: 10*3/?L. The reference range was not used to interpret this result as normal/abnormal. GRAN MAT (NEUT) % (test code = 770-8) 63.5 % IMM GRAN % (test code = 8614450103) 0.30 % LYMPH % (test code = 736-9) 18.7 % MONO % (test code = 5905-5) 16.3 % EOS % (test code = 713-8) 0.2 % BASO % (test code = 706-2) 1.0 % GRAN MAT x10^3(ANC) (test code = 6368723855) 3.63 10*3/uL 1.88-7.09 IMM GRAN x10^3 (test code = 5215380351) 0.00-0.06 LYMPH x10^3 (test code = 731-0) 1.07 10*3/uL 1.32-3.29 L MONO x10^3 (test code = 742-7) 0.93 10*3/uL 0.33-0.92 H EOS x10^3 (test code = 711-2) 0.03-0.39 L BASO x10^3 (test code = 704-7) 0.06 10*3/uL 0.01-0.07 Lab Interpretation (test code = 78738-6) Abnormal [facility]18 08:56:59* Test Item Value Reference Range Interpretation Comme nts ALCOHOL (test code = 3175531484) 247 mg/dL JASMYN (test code = JASMYN) <10 Lxkcvfbp30-719 Toxic>100 Depression of IT SUPPORT CONSULTANT>400 Fatalities Reported [facility]-18 07:38:50* Test Item Value Reference Range Interpretation Comme nts LIPASE (test code = 9081195751) 2559 U/L 0-220 H Lab Interpretation (test cod e = 91907-0) Abnormal [facility]OLIC PANEL (13311)2022-11-06 07:21:05* Test Item Value Reference Range Interpretation Comme nts NA (test code = 9689373944) 137 mmol/L 135-145 K (test code = 0005292491) 3.4 mmol/L 3.5-5.0 L CL (test code = 8531864229) 96 mmol/L 98-108 L CO2 TOTAL (test code = 0342023322) 33 mmol/L 23-31 H AGAP (test code = 1436439647) 8 2-16 BUN (test code = 7529138765) 5 mg/dL 7-23 L GLUCOSE (test code = 4805566630) 97 mg/dL 70-110 CREATININE (test code = 3452996405) 0.50 mg/dL 0.50-1.04 TOTAL BILI (test code = 3352870565) 1.8 mg/dL 0.1-1.1 H CALCIUM (test code = 0680730070) 8.6 mg/dL 8.6-10.6 T PROTEIN (test code = 2151956049) 7.9 g/dL 6.3-8.2 ALBUMIN (test code = 5114706828) 4.2 g/dL 3.5-5.0 ALK PHOS (test code = 5279844139) 204 U/L 34-122 H ALTv (test code = 1742-6) 52 U/L 5-35 H AST(SGOT) (test code = 4278795909) 147 U/L 13-40 H eGFR (test code = 3653989624) 143.0 mL/min/1.73m2 JASMYN (test code = JASMYN) [...] imaging tests). Lab Interpretation (test code = 54854-7) Abnormal [facility] WITH [id number] 07:08:46* Test Item Value Reference Range Interpretation Comme nts WBC (test code = 6690-2) 6.07 See_Comment [Automated CrowdBouncer] The system which generated this result transmitted reference range: 4.30 - 11.10 10*3/?L. The reference range was not used to interpret this result as normal/abnormal. RBC (test code = 789-8) 4.32 See_Comment [Automated CrowdBouncer] The system which generated this result transmitted [...] 35.0 g/dL 31.6-35.1 RDW-SD (test code = 34492-5) 41.7 fL 39.0-49.9 RDW-CV (test code = 788-0) 11.3 % 12.0-15.5 L PLT (test code = 777-3) 206 See_Comment [Automated messa ge] The system which generated this result transmitted reference range: 166 - 358 10*3/?L. The reference range was not used to interpret this result as normal/abnormal. MPV (test code = 25085-3) 10.1 fL 9.5-12.9 NRBC/100 WBC (test code = 9745205430) 0.0 See_Comment [Automated me ssage] The system which generated this result transmitted reference range: 0.0 - 10.0 /100 WBCs. The reference range was not used to interpret this result as normal/abnormal. NRBC x10^3 (test code = 3491288867) See_Comment [Automated messa ge] The system which generated this result transmitted reference range: 10*3/?L. The reference range was not used to interpret this result as normal/abnormal. GRAN MAT (NEUT) % (test code = 770-8) 68.0 % IMM GRAN % (test code = 3370689973) 0.30 % LYMPH % (test code = 736-9) 19.1 % MONO % (test code = 5905-5) 11.0 % EOS % (test code = 713-8) 0.3 % BASO % (test code = 706-2) 1.3 % GRAN MAT x10^3(ANC) (test code = 1802632512) 4.12 10*3/uL 1.88-7.09 IMM GRAN x10^3 (test code = 9867680769) 0.00-0.06 LYMPH x10^3 (test code = 731-0) 1.16 10*3/uL 1.32-3.29 L MONO x10^3 (test code = 742-7) 0.67 10*3/uL 0.33-0.92 EOS x10^3 (test code = 711-2) 0.03-0.39 L BASO x10^3 (test code = 704-7) 0.08 10*3/uL 0.01-0.07 H Lab Interpretation (test code = 12110-7) Abnormal [facility] [id number] 06:18:00* Test Item Value Reference Range Interpretation Comme nts POCT PREG (test code = 1605) Negative On board controls acceptable with C Line (test code = 3574) Yes Lab Interpretation (test cod e = 98827-2) Normal [facility] [id number] 02:47:00* Test Item Value Reference Range Interpretation Comme nts POCT PREG (test code = 1605) negative Lab Interpretation (test cod e = 71873-4) Normal [facility] WITH [id number] 01:22:18* Test Item Value Reference Range Interpretation [...] 33.2 g/dL 31.6-35.1 RDW-SD (test code = 42276-2) 44.6 fL 39.0-49.9 RDW-CV (test code = 788-0) 12.2 % 12.0-15.5 PLT (test code = 777-3) See_Comment [Automated messa ge] The system which generated this result transmitted reference range: 166 - 358 10*3/?L. The reference range was not used to interpret this result as normal/abnormal. MPV (test code = 17420-8) 9.4 fL 9.5-12.9 L NRBC/100 WBC (test code = 3538850004) See_Comment [Automated me ssage] The system which generated this result transmitted reference range: 0.0 - 10.0 /100 WBCs. The reference range was not used to interpret this result as normal/abnormal. NRBC x10^3 (test code = 4822971713) See_Comment [Automated messa ge] The system which generated this result transmitted reference range: 10*3/?L. The reference range was not used to interpret this result as normal/abnormal. GRAN MAT (NEUT) % (test code = 770-8) 45.9 % IMM GRAN % (test code = 2467682884) 0.50 % LYMPH % (test code = 736-9) 40.2 % MONO % (test code = 5905-5) 10.9 % EOS % (test code = 713-8) 1.4 % BASO % (test code = 706-2) 1.1 % GRAN MAT x10^3(ANC) (test code = 3574367874) 1.69 10*3/uL 1.88-7.09 L IMM GRAN x10^3 (test code = 4121024563) 0.00-0.06 LYMPH x10^3 (test code = 731-0) 1.48 10*3/uL 1.32-3.29 MONO x10^3 (test code = 742-7) 0.40 10*3/uL 0.33-0.92 EOS x10^3 (test code = 711-2) 0.05 10*3/uL 0.03-0.39 BASO x10^3 (test code = 704-7) 0.04 10*3/uL 0.01-0.07 Lab Interpretation (test code = 66791-7) Abnormal [facility] METABOLIC PANEL (NA, K, CL, CO2, GLUCOSE, BUN, CREATININE, CA)2022-04-13 00:58:33* Test Item Value Reference Range Interpretation Comme nts NA (test code = 3844335348) 140 mmol/L 135-145 K (test code = 4356225956) 3.7 mmol/L 3.5-5.0 CL (test code = 5952746568) 98 mmol/L 98-108 CO2 TOTAL (test code = 5773408833) 34 mmol/L 23-31 H AGAP (test code = 1421692108) 2-16 BUN (test code = 5070102540) 11 mg/dL 7-23 GLUCOSE (test code = 8641300214) 79 mg/dL 70-110 CREATININE (test code = 4098919502) 0.62 mg/dL 0.50-1.04 CALCIUM (test code = 0066082195) 8.1 mg/dL 8.6-10.6 L eGFR (test code = 3411183182) mL/min/1.73m2 JASMYN (test code = JASMYN) Association [...] imaging tests). 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 Patient given non ionic IV contrast. 2D Reformatted images acquired sagittally and coronally on the CT workstation using MPR software by fish technologist. Scanning conducted in the axialplane contiguously [...] AMATO : 1990 Age/S: 32 / F [address] [address] Unit #: [id number] Loc: [place] [address] Phys: Shana Ross NP Acct: [id number] Dis Date: Status: REG ER PHONE #: [phone] Exam Date: 04/06/20222116 FAX #: Reason: PAIN EXAMS: CPT: [id number] CT NECK W/CONTRAST 81189 (Continued) at 2136 Reported and signed by: [...] ALKP) 89 Unit/L 45-117 N CBC W/AUTO [id number] 20:25:00* Test Item Value Reference Range Interpretation [...] Interpretation Comme nts NA (test code = 2368847002) 141 mmol/L 135-145 K (test code = 4636931695) 3.9 mmol/L 3.5-5.0 CL (test code = 6781851734) 103 mmol/L 98-108 CO2 TOTAL (test code = 6726332337) 31 mmol/L 23-31 AGAP (test code = 9259033192) 2-16 BUN (test code = 3377983998) 12 mg/dL 7-23 GLUCOSE (test code = 3508229153) 85 mg/dL 70-110 CREATININE (test code = 1383433576) 0.56 mg/dL 0.50-1.04 CALCIUM (test code = 2989047572) 8.3 mg/dL 8.6-10.6 L eGFR (test code = 8347315847) mL/min/1.73m2 JASMYN (test code = JASMYN) Association [...] imaging tests). Lab Interpretation (test code = 69723-4) Abnormal [facility] History and Physical Notes Date/Time Note Provider [...] of comfort: N/A Code Status: Full [place] [employer] was verified Disposition: Await stability, admit IMU for MGMT of ETOH Withdrawl T [facility] 2023-09-19 21:29:46 Images from the original note were not included. MEDICINE [facility] ADMIT H&P Date of Service: 09/19/2023 [...] Left 11/13/2021 Surgeon: Cathie Ross MD; Location: 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 0 Result Notes Details Reading Physician Reading Date Result Priority Dao Queen MD [phone] [id number] 09/15/2023 STAT Narrative & Impression Provider: CECILE [...] Full Code T [facility] STAFF [facility] 2023-04-24 21:43:58 [facility] Hospitalist Admission H&P Date of Service: 04/24/2023 [...] Left 11/13/2021 Surgeon: Cathie Ross MD; Location: 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 [place] [employer] was verified during stay William Castorena MD [facility] 2022-11-10 18:43:21 Formatting of this n [...] tired on Saturday and was admitted to [facility] on Saturday for a similar presentation. [...] followed up with GI. Was admitted to [facility] on 11/06 for pancreatitis and ETOH [...] Pulmonary & Critical Care Medicine Interventional Pulmonology, Nurse Staff Doctor # [id number] [phone] [facility] 2022-11-06 05:35:54 Formatting of this n ote is different from the original. 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 RL: 1105 AFC: 03890 ABDOMEN PELVIS W CONTRAST Narrative Ordering physician: [...] infiltration of the liver. RL: 460 AFC: 64341 SSMENT: 1. Acute pancreatitis secondary to alcohol abuse 2. Alcoholic liver disease 3. Macrocytic anemia 4. History of hypertension 5. History of constipation 6. h/o of ADD 7. History of tobacco abuse PLAN: -aggressive IV hydration -IV antibiotics -n.p.o. -pain control -Global Sales Executive regarding alcohol abuse -surgery consultation if pain [...] high risk of morbidity and mortality. [place] [facility] was verified during stay William Castorena MD [facility]
[2024-04-24] MEDS ORDERED: LORazepam 2 MG/ML VIAL ONE (10:29)
[2024-04-24] MEDS ORDERED: NA CHLORIDE 0.9% 1,000 ML ONE (10:29)
[2024-04-24] MEDS ORDERED: THIAMINE 200 MG/2 ML INJ ONE (10:29)
[2024-04-24] MEDS ORDERED: Magnesium Sulfate 2gm IVPB 2 G/50 ML BAG IV ONE (10:30)
[2024-04-24 10:43] LABS: Absolute Lymphocytes (CBC) 0.5 K/uL (0.7-4.9); Absolute Monocytes 0.6 K/uL (0.1-1.3); Absolute Neutrophil 3.8 K/uL (1.8-8.0); Basophils % 0.3 % (0-1.3); Eosinophils % 0.3 % (0-4.4); Hemoglobin 13.1 g/dL (12.0-15.0); MCH 31.8 pg (27.0-35.0); MCHC 34.5 g/dL (32.0-36.0); MCV 92.3 fL (80-100); MPV 8.1 fL (7.6-11.3); Monocytes % 11.9 % (3.3-12.3); Neutrophils % 77.5 % (41.7-73.7); Nucleated Red Blood Cells % 0.1 % (0-0); Platelets 56 thou/uL (152-406); RBC Red Blood Cell Count 4.12 M/uL (3.86-4.86); Red Cell Distribution Width 17.6 % (12.1-15.2)
[2024-04-24 10:46] LABS: PT Prothrombin Time 14.3 SECONDS (9.4-12.5); PTT, Activated Partial Thromb 30.4 SECONDS (24.3-36.9); Protime INR 1.29
[2024-04-24] MEDS ORDERED: FOLIC ACID 1 MG, MULTIVITAMINS INJ 10 ML, THIAMINE HCL 100 MG in NA CHLORIDE 0.9% 1,000 ML IV SCH (11:00)
[2024-04-24 11:22] LABS: ALT/SGPT 193 U/L (13-56); AST/SGOT 544 U/L (15-37); Albumin 4.6 g/dL (3.4-5.0); Albumin/Globulin Ratio 1.1 (1.1-1.8); Alkaline Phosphatase 233 U/L (45-117); Anion Gap 14.5 mEq/L (5.0-15.0); BUN Blood Urea Nitrogen 25 mg/dL (7-18); Bicarbonate 32 mEq/L (21-32); Bilirubin Direct 3.5 mg/dL (0-0.2); Bilirubin Indirect, Calculated 1.8 mg/dL (0.2-0.8); Bilirubin Total 5.3 mg/dL (0.2-1.0); Globulin 4.1 g/dL (2.3-3.5); Glomerular Filtration Rate 75 ml/min (=/>90); Glucose Level 86 mg/dL (74-106); Protein, Total 8.7 g/dL (6.4-8.2); Sodium Level 131 mEq/L (136-145)
[2024-04-24 11:27] LABS: Potassium 2.5 mEq/L (3.5-5.1)
--- NOTE | 2024-04-24 11:47 | EDPHYS ---
Physician Documentation [facility] Name: Ethel Amato Age: 34 yrs Sex: Female : 1990 Arrival Date: 04/24/2024 Time: 09:37 Bed 5 Private MD: ANTHONY Physician Pascual Ramos HPI: 04/24 10:33 This 34 yrs old Female presents to ER via Ambulatory with complaints of hansa Blurred Vision. 10:33 The patient is experiencing blurred vision, decreased vision, The patient sustained hansa contusion. Onset: The symptoms/episode began/occurred 1 day(s) ago. Duration: the symptoms are continuous. Aggravated by nothing. Alleviated by nothing. Associated signs and symptoms: Pertinent positives: headache. The patient presents with a history of heart racing. Context: The symptoms occur at rest. Onset: The symptoms/episode began/occurred today, yesterday. Modifying factors: The symptoms are aggravated by nothing. The symptoms are alleviated by nothing. Historical: - Allergies: 10:02 No Known Allergies; iw - PMHx: 10:02 ADD/ADHD; Hypertension; Pneumonia; iw - Immunization history:: Adult Immunizations unknown. - Infectious Disease History:: Denies. - Family history:: not pertinent. - Social history:: Smoking status: unknown Patient uses alcohol, states last drink was 2 weeks ago. ROS: 10:33 Constitutional: Negative for fever, chills, and weight loss, ENT: Negative for injury, hansa pain, and discharge, Neck: Negative for injury, pain, and swelling, Respiratory: Negative for shortness of breath, cough, wheezing, and pleuritic chest pain, Abdomen/GI: Negative for abdominal pain, nausea, vomiting, diarrhea, and constipation, Back: Negative for injury and pain, : Negative for injury, bleeding, discharge, and swelling, MS/Extremity: Negative for injury and deformity, Skin: Negative for injury, rash, and discoloration, Neuro: Negative for headache, weakness, numbness, tingling, and seizure, Psych: Negative for depression, anxiety, suicide ideation, homicidal ideation, and hallucinations, Allergy/Immunology: Negative for hives, rash, and allergies, Endocrine: Negative for neck swelling, polydipsia, polyuria, polyphagia, and marked weight changes, Hematologic/Lymphatic: Negative for swollen nodes, abnormal bleeding, and unusual bruising, 10:33 Eyes: Positive for blurry vision, pain, visual disturbance, 10:33 Cardiovascular: Positive for palpitations, Exam: 10:33 Constitutional: This is a well developed, well nourished patient who is awake, alert, hansa and in no acute distress. Head/Face: Normocephalic, atraumatic. Eyes: Pupils equal round and reactive to light, extra-ocular motions intact. Lids and lashes normal. Conjunctiva and sclera are non-icteric and not injected. Cornea within normal limits. Periorbital areas with no swelling, redness, or edema. ENT: Nares patent. No nasal discharge, no septal abnormalities noted. Tympanic membranes are normal and external auditory canals are clear. Oropharynx with no redness, swelling, or masses, exudates, or evidence of obstruction, uvula midline. Mucous membranes moist. Neck: Trachea midline, no thyromegaly or masses palpated, and no cervical lymphadenopathy. Supple, full range of motion without nuchal rigidity, or vertebral point tenderness. No Meningismus. Chest/axilla: Normal chest wall appearance and motion. Nontender with no deformity. No lesions are appreciated. Respiratory: Lungs have equal breath sounds bilaterally, clear to auscultation and percussion. No rales, rhonchi or wheezes noted. No increased work of breathing, no retractions or nasal flaring. Abdomen/GI: Soft, non-tender, with normal bowel sounds. No distension or tympany. No guarding or rebound. No evidence of tenderness throughout. Back: No spinal tenderness. No costovertebral tenderness. Full range of motion. Skin: Warm, dry with normal turgor. Normal color with no rashes, no lesions, and no evidence of cellulitis. MS/ Extremity: Pulses equal, no cyanosis. Neurovascular intact. Full, normal range of motion., bilateral aka Neuro: Awake and alert, GCS 15, oriented to person, place, time, and situation. Cranial nerves II-XII grossly intact. Motor strength 5/5 in all extremities. Sensory grossly intact. Cerebellar exam normal. Normal gait. Psych: Awake, alert, with orientation to person, place and time. Behavior, mood, and affect are within normal limits. 10:33 Cardiovascular: Rate: tachycardic, actual rate is 135 bpm, Rhythm: regular, Pulses: no pulse deficits are appreciated, Heart sounds: normal, Edema: is not appreciated, JVD: is not appreciated, 10:54 ECG was reviewed by the Attending Physician. [facility] Vital Signs: 10:01 BP 159 / 102; Pulse 135; Resp 19; Temp 98.1; Pulse Ox 98% on R/A; Weight 49.9 kg; iw Height 5 ft. 9 in. ; 10:30 BP 143 / 94; Pulse 118; Resp 18; Pulse Ox 98% on R/A; db 11:15 BP 133 / 96; Pulse 129; Resp 18; Pulse Ox 100% on R/A; db 12:15 BP 132 / 100; Pulse 118; Resp 18; Pulse Ox 99% on R/A; ph 13:03 BP 131 / 87; Pulse 120; Resp 18; Pulse Ox 100% on R/A; ph 10:01 Body Mass Index 16.24 (49.90 kg, 175.26 cm) iw MDM: 09:44 Medical Screening Exam initiated hansa 10:38 Differential diagnosis: Acute iritis of Ultraviolet keratitis in arrythmia, hansa dehydration, stress disorder. Differential Diagnosis altered mental status, sepsis, flu. Data reviewed: vital signs, nurses notes, lab test result(s), EKG. Consideration of Admission/Observation Escalation of care including admission/observation considered. I considered the following discharge prescriptions or medication management in the emergency department Medications were administered in the Emergency Department. See MAR. Independent interpretation of the following test(s) in the Emergency Department EKG: See my EKG interpretation above. Test considered but Not performed: CT: no ct head. Historians other than the Patient: pt well informed. Care significantly affected by the following chronic conditions: Hypertension, add/adhd/ htn/ pna. 04/24 10:13 Order name: Acetaminophen; Complete Time: 11:33 [facility] 04/24 10:13 Order name: Basic Metabolic Panel; Complete Time: 11:33 [facility] 04/24 10:13 Order name: CBC with Diff [facility] 04/24 10:13 Order name: ETOH Level; Complete Time: 10:54 [facility] 04/24 10:13 Order name: Hepatic Function; Complete Time: 11:33 [facility] 04/24 10:13 Order name: PT-INR; Complete Time: 10:54 [facility] 04/24 10:13 Order name: Ptt, Activated; Complete Time: 10:54 [facility] 04/24 10:13 Order name: Salicylate; Complete Time: 11:33 [facility] 04/24 13:11 Order name: CBC Smear Scan EDMS 04/24 10:13 Order name: EKG - Nurse/Tech; Complete Time: 10:44 [facility] 04/24 10:13 Order name: IV Saline Lock; Complete Time: 10:35 [facility] 04/24 10:13 Order name: Labs collected and sent; Complete Time: 10:35 [facility] 04/24 10:13 Order name: Suicide Screening ([place]); Complete Time: 10:35 [facility] 04/24 11:34 Order name: PO challenge: juice x2; Complete Time: 12:41 [facility] EC:54 Rate is 109 beats/min. Rhythm is regular. QRS [place] is Normal. MO interval is normal. [facility] QRS interval is normal. QT interval is normal. No Q waves. T waves are Normal. No ST changes noted. Clinical impression: Sinus tachycardia and No evidence of ischemia. Interpreted by me. Reviewed by me. Administered Medications: 10:25 Drug: NS 0.9% IV 1000 ml IV at 1000 ml once; to be given as a bolus over 60 minutes db Route: IV; Rate: 1000 ml; Site: right antecubital; 11:30 Follow up: Response: No adverse reaction; IV Status: Completed infusion; IV Intake: ph 1000ml 10:25 Drug: Thiamine IV 100 mg IV at bolus once Route: IV; Rate: bolus; Site: right db antecubital; 11:15 Follow up: Response: No adverse reaction; IV Status: Completed infusion ph 10:25 Drug: Ativan IVP 1 mg IVP once Route: IVP; Site: right antecubital; 13:09 Follow up: Response: No adverse reaction ph 10:25 Drug: Magnesium Sulfate IVPB 2 grams IVPB once over 2 hrs Route: IVPB; Infused Over: 2 db hrs; Site: right antecubital; 12:25 Follow up: Response: No adverse reaction; IV Status: Completed infusion ph 11:02 Drug: Banana Bag - (Multivitamin IV 1 amp, NS 0.9% IV 1000 ml, Thiamine IV 100 mg, db foLIC Acid IVPB 1 mg) IV at 500 ml/hr once Route: IV; Rate: 500 ml/hr; Site: right antecubital; 13:09 Follow up: Response: No adverse reaction; IV Status: Completed infusion; IV Intake: ph 1000ml 12:39 Drug: Potassium Chloride IV 20 mEq IV at per protocol once; administer over 1 hours iw Route: IV; Rate: per protocol; Site: right antecubital; 13:25 Follow up: Response: No adverse reaction; IV Status: Infusion continued upon transfer ph 12:39 Drug: Potassium PO Effervescent Tablet 50 mEq PO once; dissolve in 4 ounces of water or iw juice Route: PO; 13:08 Follow up: Response: No adverse reaction ph 12:39 Drug: Potassium PO Effervescent Tablet 50 mEq PO once; dissolve in 4 ounces of water or iw juice repeat in 1 hour Route: PO; 13:08 Follow up: Response: No adverse reaction ph 13:24 Drug: Ondansetron IVP 4 mg IVP once; over 2 minutes Route: IVP; Site: right antecubital;ph 13:25 Follow up: Response: No adverse reaction; Medication Administered at Departure ph Disposition Summary: 04/24/24 11:46 Transfer Ordered Notes: Reason: Higher level of care hansa Condition: Fair hansa Problem: new hansa Symptoms: have improved hansa [facility](04/24/24 11:57) hansa Accepting Physician: [facility](04/24/24 13:26) ph Diagnosis - Alcohol dependence with withdrawal, unspecified hansa - Other visual disturbances - right eye hansa - Hypokalemia hansa Forms: - Medication Reconciliation Form hansa - SBAR form hansa Signatures: Dispatcher [employer] EDPascual Palafox MD MD cha Williams, Irene, RN RN Michelle Block RN RN Sis Macario RN RN db Corrections: (The following items were deleted from the chart) 10:13 10:13 ACETAMINOPHEN+C.LAB.BRZ ordered. EDMS EDMS 10:13 10:13 BASIC METABOLIC PANEL+C.LAB.BRZ ordered. EDMS EDMS 10:13 10:13 CBC+H.LAB.BRZ ordered. EDMS EDMS 10:13 10:13 ETHANOL+C.LAB.BRZ ordered. EDMS EDMS 10:13 10:13 HEPATIC FUNCTION+C.LAB.BRZ ordered. EDMS EDMS 10:13 10:13 PROTIME (+INR)+COAG.LAB.BRZ ordered. EDMS EDMS 10:13 10:13 Test, Urine+UC.LAB.BRZ ordered. EDMS EDMS 10:13 10:13 PTT, ACTIVATED+COAG.LAB.BRZ ordered. EDMS EDMS 10:13 10:13 SALICYLATE+C.LAB.BRZ ordered. EDMS EDMS 10:13 10:13 Urinalysis+U.LAB.BRZ ordered. EDMS EDMS 10:13 10:13 URINE DRUG SCREEN+UC.LAB.BRZ ordered. EDMS EDMS 11:57 11:46 to [facility] 11:57 11:46 [facility] hansa 13:26 11:57 to [facility]
--- NOTE | 2024-04-24 11:47 | ER ---
Nurse's Notes [facility] Name: Ethel Amato Age: 34 yrs Sex: Female : 1990 Arrival Date: 04/24/2024 Time: 09:37 Bed 5 Private MD: Diagnosis: Alcohol dependence with withdrawal, unspecified;Other visual disturbances-right eye;Hypokalemia Presentation: 04/24 10:01 Chief complaint: Patient states: feels like she has a retinal detachment in right eye. iw Coronavirus screen: At this time, the client does not indicate any symptoms associated with coronavirus-19. Ebola Screen: No symptoms or risks identified at this time. Initial Sepsis Screen: Does the patient meet any 2 criteria? No. Patient's initial sepsis screen is negative. Does the patient have a suspected source of infection? No. Patient's initial sepsis screen is negative. Risk Assessment: Do you want to hurt yourself or someone else? Patient reports no desire to harm self or others. Onset of symptoms was April 23, 2024. 10:01 Method Of Arrival: Ambulatory iw 10:01 Acuity: APOLINAR 3 iw Historical: - Allergies: 10:02 No Known Allergies; iw - PMHx: 10:02 ADD/ADHD; Hypertension; Pneumonia; iw - Immunization history:: Adult Immunizations unknown. - Infectious Disease History:: Denies. - Family history:: not pertinent. - Social history:: Smoking status: unknown Patient uses alcohol, states last drink was 2 weeks ago. Screenin:22 Abuse screen:. ph 10:37 [facility] ED Fall Risk Assessment (Adult) History of falling in the last 3 months, ph including since admission No falls in past 3 months (0 pts) Confusion or Disorientation No (0 pts) Intoxicated or Sedated No (0 pts) Impaired Gait No (0 pts) Mobility Assist Device Used No (0 pt) Altered Elimination Score/Fall Risk Level 0 - 2 = Low Risk Oriented to surroundings, Maintained a safe environment, Hourly rounding (assess needs \T\ fall precautionary measures) done. 10:43 Nutritional screening: No deficits noted. Tuberculosis screening: No symptoms or risk ph factors identified. Assessment: 10:36 General: Appears in no apparent distress. comfortable, slender, well groomed, Behavior ph is cooperative, appropriate for age, anxious. Pain: Complains of pain in headache. Neuro: Level of Consciousness is awake, alert, obeys commands, Oriented to person, place, time, situation, Reports blurred vision in right eye headache. Cardiovascular: Capillary refill < 3 seconds in bilateral fingers Patient's skin is warm and dry. Respiratory: Airway is patent Respiratory effort is even, unlabored, Respiratory pattern is regular, symmetrical. Derm: Skin is pink, warm \T\ dry. Musculoskeletal: Circulation, motion, and sensation intact. Range of motion: intact in all extremities. 10:47 Reassessment: Patient appears in no apparent distress at this time. PHARMACY IS MIXING db BANANA BAG. 11:32 Reassessment: Patient appears in no apparent distress at this time. Patient and/or db family updated on plan of care and expected duration. Pain level reassessed. Patient is alert, oriented x 3, equal unlabored respirations, skin warm/dry/pink. 13:07 Reassessment: Patient appears in no apparent distress at this time. Patient and/or ph family updated on plan of care and expected duration. Pain level reassessed. Patient is alert, oriented x 3, equal unlabored respirations, skin warm/dry/pink. Report called toSujata RN, awaiting EMS for transport. 13:25 Reassessment: Patient appears in no apparent distress at this time. Patient and/or ph family updated on plan of care and expected duration. Pain level reassessed. Patient is alert, oriented x 3, equal unlabored respirations, skin warm/dry/pink. [facility] at bedside, report given to EMT-P. Vital Signs: 10:01 BP 159 / 102; Pulse 135; Resp 19; Temp 98.1; Pulse Ox 98% on R/A; Weight 49.9 kg; iw Height 5 ft. 9 in. ; 10:30 BP 143 / 94; Pulse 118; Resp 18; Pulse Ox 98% on R/A; db 11:15 BP 133 / 96; Pulse 129; Resp 18; Pulse Ox 100% on R/A; db 12:15 BP 132 / 100; Pulse 118; Resp 18; Pulse Ox 99% on R/A; ph 13:03 BP 131 / 87; Pulse 120; Resp 18; Pulse Ox 100% on R/A; ph 10:01 Body Mass Index 16.24 (49.90 kg, 175.26 cm) ED Course: 09:39 Patient arrived in ED. ra3 09:44 Pascual Ramos MD is Attending Physician. hansa 10:02 Triage completed. iw 10:03 Arm band placed on. iw 10:21 Michelle Block, RN is Primary Nurse. ph 10:35 Initial lab(s) drawn, by me, sent to lab. Inserted saline lock: 20 gauge in right ph antecubital area, using aseptic technique. Blood collected. Flushed with 10 mL NS. 10:36 Acetaminophen Sent. ph 10:36 Basic Metabolic Panel Sent. ph 10:36 CBC with Diff Sent. ph 10:36 ETOH Level Sent. ph 10:36 Hepatic Function Sent. ph 10:36 PT-INR Sent. ph 10:36 Ptt, Activated Sent. ph 10:36 Salicylate Sent. ph 10:42 Patient has correct armband on for positive identification. Bed in low position. Call ph light in reach. Side rails up X 1. Pulse ox on. NIBP on. Door closed. Noise minimized. Warm blanket given. Pillow given. 10:43 No provider procedures requiring assistance completed. ph 10:43 EKG done, by ED staff, reviewed by Pascual Ramos MD. ph 12:13 initiated a transfer with [facility] from the [facility]. nh2 12:26 administrative approval given by Lani Heath Rn/ patient has been accepted to [address] ED/ Dr. Daron Iyer has accepted the patient in transfer/ report to be called to [phone]. 13:26 Patient transferred, IV remains in place. ph Administered Medications: 10:25 Drug: NS 0.9% IV 1000 ml IV at 1000 ml once; to be given as a bolus over 60 minutes db Route: IV; Rate: 1000 ml; Site: right antecubital; 11:30 Follow up: Response: No adverse reaction; IV Status: Completed infusion; IV Intake: ph 1000ml 10:25 Drug: Thiamine IV 100 mg IV at bolus once Route: IV; Rate: bolus; Site: right db antecubital; 11:15 Follow up: Response: No adverse reaction; IV Status: Completed infusion ph 10:25 Drug: Ativan IVP 1 mg IVP once Route: IVP; Site: right antecubital; db 13:09 Follow up: Response: No adverse reaction ph 10:25 Drug: Magnesium Sulfate IVPB 2 grams IVPB once over 2 hrs Route: IVPB; Infused Over: 2 db hrs; Site: right antecubital; 12:25 Follow up: Response: No adverse reaction; IV Status: Completed infusion ph 11:02 Drug: Banana Bag - (Multivitamin IV 1 amp, NS 0.9% IV 1000 ml, Thiamine IV 100 mg, db foLIC Acid IVPB 1 mg) IV at 500 ml/hr once Route: IV; Rate: 500 ml/hr; Site: right antecubital; 13:09 Follow up: Response: No adverse reaction; IV Status: Completed infusion; IV Intake: ph 1000ml 12:39 Drug: Potassium Chloride IV 20 mEq IV at per protocol once; administer over 1 hours iw Route: IV; Rate: per protocol; Site: right antecubital; 13:25 Follow up: Response: No adverse reaction; IV Status: Infusion continued upon transfer ph 12:39 Drug: Potassium PO Effervescent Tablet 50 mEq PO once; dissolve in 4 ounces of water or iw juice Route: PO; 13:08 Follow up: Response: No adverse reaction ph 12:39 Drug: Potassium PO Effervescent Tablet 50 mEq PO once; dissolve in 4 ounces of water or iw juice repeat in 1 hour Route: PO; 13:08 Follow up: Response: No adverse reaction ph 13:24 Drug: Ondansetron IVP 4 mg IVP once; over 2 minutes Route: IVP; Site: right antecubital;ph 13:25 Follow up: Response: No adverse reaction; Medication Administered at Departure ph Medication: 10:42 VIS not applicable for this client. ph Intake: 11:30 IV: 1000ml; Total: 1000ml. ph 13:09 IV: 1000ml; Total: 2000ml. ph Outcome: 11:46 ER care complete, transfer ordered by MD. santo 13:26 Transferred by [facility] . to [facility], ph 13:26 Condition: stable 13:26 Instructed on the need for transfer, 13:26 Patient left the ED. ph Signatures: Pascual Ramos MD MD cha Williams, Irene, RN RN iw Michelle Block RN RN Sis Macario RN RN db Alva, Ruby 3 Neel , [facility]
[2024-04-24] MEDS ORDERED: POTASSIUM 25 MEQ EFFERV TAB ONE (11:48)
[2024-04-24] MEDS ORDERED: KCL 20 MEQ/100 mL IVPB 100 ML IV ONE (11:48)
[2024-04-24 13:11] LABS: Blood Morphology Comment NOT SEEN (NOT SEEN); Platelet Estimate DECR; White Blood Cell Scan OK (OK)
[2024-04-24] MEDS ORDERED: ONDANSETRON 4 MG/2 ML VIAL ONE (13:21)
[2024-04-24 14:14] VITALS: TEMP 98.1
[2024-04-24 14:19] VITALS: BP 131/87; O2SAT 100
--- NOTE | 2024-05-04 11:23 | EKG ---
Test Date: 2024-04-24 Test Time: 10:40:29 [employer] Science Research Assistant: MARLA MEASUREMENT RESULTS: Intervals: Rate: 109 CO: 140 QRSD: 80 QT: 330 QTc: 444 [place]: P: 80 CO: 140 QRS: 86 T: 78 INTERPRETIVE STATEMENTS: Sinus tachycardia Possible Left atrial enlargement Borderline ECG Compared to ECG 02/10/2016 00:12:43 Sinus rhythm no longer present Electronically Signed On 05-04-24 11:07:10 TALENT ACQUISITION OPERATIONS MANAGER by Chi Cervantes
== END 2024-04-24 13:26 | disposition short-term general hospital (02) ==
LOC: ER 09:37
DX: F10.239 Alcohol dependence with withdrawal, unspecified (principal); H53.8 Other visual disturbances; E87.6 Hypokalemia
CPT/HCPCS: 36415; 80048; 80076; 80143; 80179; 82077; 85025; 85610; 85730; 93005; 96365; 96367; 96368; 96375; 99285; J2405; J3411; J3475; J3480; J7030

== ENCOUNTER 2024-05-27 01:27 | Emergency (ER) | payer OTHER ==
--- OUTSIDE RECORDS SUMMARY | 2024-05-27 01:42 | XMS REPORT | Continuity of Care Document ---
Author Name Unknown Address [address] [facility] [address] [place] [address] [facility] thconnect Address [address] [facility] [address] [place] [address] Care Team Providers Care Employee Communications Manager Name Role Phone Devyn STUBBS, [facility] Primary Care Physician + Shepard, Leander M Attending Clinician Unavailable CATHIE ROSS Attending Clinician UnavailERIC Pond Attending Clinician Unavailable Barbara STUBBS, Jacqueline Hilton Attending Clinician [phone] Stephanie STUBBS, Nick Mauricio Attending Clinician + [phone] Kenna STUBBS, Robert Pierson Attending Clinician [phone] Rebeca STUBBS, Eric Attending Clinician +[phone] MICHELLE PATIÑO Attending Clinician Unavailable MICHELLE PATIÑO Attending Clinician Unavailable Haroon CLOUD OPERATIONS ENGINEERMichelle Kim Attending Clinician +[phone] VALERIA HERNANDEZ Attending Clinician Unavaila moris Hernandez ACNValeria Kim Attending Clinician + [phone] CLEMENTINA MARROQUIN Attending Clinician Unavailab CLEMENTINA Tang Attending Clinician Unavailab Clementina Tang DO Attending Clinician +[phone] CATHIE ROSS Attending Clinician Unavailabl Cathie Reed MD Attending Clinician +[phone] REJI JOHANSEN Attending Clinician Unavailable REJI JOHANSEN Attending Clinician Unavailable Reji Johansen MD Attending Clinician +[phone] KANDY CHAVEZ Attending Clinician Unavailable KANDY CHAVEZ Attending Clinician Unavailable Kandy Sanchez Attending Clinician + [phone] TRINO ASHFORD Attending Clinician Unavailable TRINO ASHFORD Attending Clinician Unavailable Trino Ashford MD Attending Clinician + [phone] KRISTA CABRERA Attending Clinician Unavailable KRISTA CABRERA Attending Clinician Unavailable Krista Cabrera MD Attending Clinician [phone] Jonelle Connell DO Attending Clinician +[phone] NBA BALDERAS Attending Clinician Unavailab Lauren Davila MA Attending Clinician Un available DOA GOEL Attending Clinician Unavailable DAO GOEL Attending Clinician Unavailable Ruben STUBBS, Alyssia Tate Attending Clinician + SOLO DEVI Attending Clinician Unavailable Eduar Echevarria DO Attending Clinician +[phone] Solo Devi MD Attending Clinician +[phone] JONELLE CONNELL Attending Clinician Unavailable JONELLE CONNELL Attending Clinician Unavailable Zoë Singletary NP Attending Clinician + [phone] ZOË SINGLETARY Attending Clinician Unavailable Jose Domínguez Attending Clinician +[phone] CECILE RANGEL Attending Clinician Unavailable Juan Carlos CLOUD OPERATIONS ENGINEERCecile Kim Attending Clinician [phone] ELENO OLMSTEAD Attending Clinician Unavailable ELENO OLMSTEAD Attending Clinician Unavailable Reta Tapia Attending Clinician +[phone] Doctor Unassigned, Higden Attending Clinician U navailable RETA LEIJA Attending Clinician Unavailable Unknown, Attending Attending Clinician Unavailab Thelma Hernandez LVN Attending Clinician + [phone] WILLIAM CASTORENA. Attending Clinician Unavailyfn Castorena MD, William Nolasco Attending Clinician [phone] Jacob Jacobs Attending Clinician UnavailPAGE Abdul Attending Clinician Unavailable Da STUBBS, Page Attending Clinician +[phone] JUAN CHAVEZ Attending Clinician Unavail able Adelina Judge MD Attending Clinician + [phone] Dahiana Robertson MD Attending Clinician +[phone] Juan Chavez MD Attending Clinician +[phone] EDUAR ECHEVARRIA Attending Clinician Unavailable NICK BEST T Attending Clinician Unavailable EstephaniaNick Trimble T Attending Clinician +[phone] RAVINDER FUENTES Attending Clinician Unavailable Chula NAVARRETE Attending Clinician Unavailable Chula NAVARRETE Attending Clinician Unavailable Lacey Suggs MD Attending Clinician + [phone] Oral Surgery, Oral Attending Clinician Unavailab Jose Loredo Attending Clinician Unavailable Jian Salvador Attending Clinician Unavailable ALARCON, BALDEV S Attending Clinician Unavailable Alarcon PAC, Baldev S Attending Clinician +[phone] CORTESTREVON Parmar R Attending Clinician Unavailab orly Judge PAC, Kerrie S Attending Clinician +[phone] KERRIE JUDGE Attending Clinician Unavailable Yunior STUBBS, Cathie Mirza Attending Clinician + [phone] JACQUELINE SHIN Attending Clinician Unavailable Shin CLOUD OPERATIONS ENGINEER, Jacqueline Attending Clinician +[phone] Edy STUBBS, Afaq Attending Clinician +[phone] Pob, Adc Lab Main Attending Clinician Unavailabl e Only, Adc Test Attending Clinician Unavailable Horace CLOUD OPERATIONS ENGINEER, Arash Attending Clinician +[phone] KARINA GONZALES Attending Clinician Unavailable Ebjody CLOUD OPERATIONS ENGINEER, Karina Attending Clinician [phone] Visit, Ang-Rmp Nurse Attending Clinician Unava ilable Anmol CLOUD OPERATIONS ENGINEER, Trevon Doyle Attending Clinician + [phone] Akinsihanna WHCNP, Pratima Shore Attending Clinician + AKINSIPRATIMA HAIDER Attending Clinician Unavail able GC_SWHAOMC_[place]_G Attending Clinician Unavail able COSME MARIE Attending Clinician Unava ilable Ryan CLOUD OPERATIONS ENGINEER, Cosme Attending Clinician + Nerissa HOFF, Zakiya Sanders Attending Clinician Unavailab le Only, Ang Db Test Attending Clinician Unavailyfn Doan CLOUD OPERATIONS ENGINEER, Miley Attending Clinician [phone] MILEY DOAN Attending Clinician Unavailable Julisa Purvis DO Attending Clinician +[phone] Marin HOFF, Tiff Moreno Attending Clinician +[phone] CHAD MORAN Attending Clinician Unavailyfn Espana MD, [place] Damian Attending Clinician + [phone] Chad Moran MD Attending Clinician [phone] Karina STUBBS, Marisabel Attending Clinician +[phone] Provider, [facility] Attending Clinician Un available Kelly Cooley Attending Clinician +[phone] Jennifer Sher MD Attending Clinician +[phone] Radiology Attending Clinician Unavailable RADIOLOGY Attending Clinician Unavailable JENNIFER SHER Attending Clinician Unavailable KELLY PEREZ Attending Clinician Unavailable Shola CASTANEDA, Sabra Attending Clinician [phone] SABRA SORTO Attending Clinician Unavailable Carrington CASTANEDA, Brandi Casanova Attending Clinician + [phone] Eliezer Watts MD Attending Clinician +[phone] Reji Leahy MD Attending Clinician +[phone] CATHIE ROSS Admitting Clinician UnavailROBERT Bishop Admitting Clinician Unavail able Robert Pierson MD Admitting Clinician +[phone] MICHELLE PATIÑO Admitting Clinician Unavailable VALERIA HERNANDEZ Admitting Clinician Unavaila KANDY Blackman Admitting Clinician Unavailable TRINO ASHFORD Admitting Clinician Unavailable NBA BALDERAS Admitting Clinician Unavailab EDUAR So Admitting Clinician Unavailable Eduar Echevarria DO Admitting Clinician +[phone] SOLO DEVI Admitting Clinician Unavailable Solo Devi MD Admitting Clinician +[phone] CECILE RANGEL Admitting Clinician Unavailable ELENO OLMSTEAD Admitting Clinician Unavailable WILLIAM CASTORENA Admitting Clinician UnavailWilliam Serrano MD Admitting Clinician [phone] Arnol Gonsalez Admitting Clinician Unavailab DAHIANA Arteaga Admitting Clinician Unavailable Dahiana Robertson MD Admitting Clinician +[phone] NICK BEST Admitting Clinician Unavailable LACEY SUGGS Admitting Clinician Unavailable Cathie Ross MD Admitting Clinician [phone] SANGITA_YANNA_Wallace_Charisse Admitting Clinician Unavail able MARISABEL COLLINS Admitting Clinician Unavailable Marisabel Collins MD Admitting Clinician +[phone] BALDEV ALARCON Admitting Clinician Unavailable SABRA SORTO Admitting Clinician Unavailable Payers Payer Name Policy Type Policy Number Effective Date Expirati on Date Source [employer] MEDICAID [id number] 2016 00:00:00 MEDICAID [place] [facility] Medicaid [id number] 2024 00:00:00 [place] [facility] [id number] 2024 00:00:00 [place] [id number] 2023 00:00:00 [facility] [id number] 2022 00:00:00 2023 00:00:00 [facility] [id number] 2019 00:00:00 [facility] [id number] 2019 00:00:00 [facility] [id number] 2019 00:00:00 [facility] [id number] 2019 00:00:00 [facility] Problems Condition Name Condition Details Condition Category Status Onset Date Resolution Date Last Treatment Date Treating Clinician Comments Source Alcohol withdrawal , uncomplica colleen Alcohol withdrawal , uncomplica colleen Disease Active 04-25 00:00: 00 Marcos Sandoval Acute pancreatit is Acute pancreatit is Disease Active 04-25 00:00: 00 [facility] Sandoval Hypertensi on Hypertensi on Disease Active 04-25 00:00: 00 Mar[facility] Sandoval Elevated LFTs Elevated LFTs Disease Active - 00:00: 00 Mar[facility] Sandoval UTI (urinary tract infection) UTI (urinary tract infection) Disease Active 04-25 00:00: 00 [facility] Sandoval Alcohol withdrawal syndrome without complicati on Alcohol withdrawal syndrome without complicati on Disease Active 17 00:00: 00 [facility] Nausea and vomiting, unspecifie d vomiting type Nausea and vomiting, unspecifie d vomiting type Disease Active 530 00:00: 00 [facility] Alcohol withdrawal syndrome, with delirium Alcohol withdrawal syndrome, with delirium Disease Active 2024-0 1-03 00:00: 00 [facility] E44.0 Moderate protein calorie malnutriti on E44.0 Moderate protein calorie malnutriti on Disease Active 7-24 00:00: 00 [facility] Alcohol abuse Alcohol abuse Disease Active 7-22 00:00: 00 [facility] Flank pain Flank pain Disease Active 7-18 00:00: 00 [facility] Closed dislocatio n of fifth metacarpal bone of right hand Closed dislocatio n of fifth metacarpal bone of right hand Disease Active 720 00:00: 00 Overview: Formattin g of this note might be different from the original. Added automatic ally from request for surgery [id number] [facility] Closed dislocatio n of fifth metacarpal bone of right hand Closed dislocatio n of fifth metacarpal bone of right hand Disease Active 11-08 00:00: 00 Overview: Formattin g of this note might be different from the original. Added automatic ally from request for surgery [id number] [facility] Other general counseling and advice for contracept luna management Other general counseling and advice for contracept luna management Disease Active 3-24 00:00: 00 [facility] Underweigh t Underweigh t Disease Active 3-24 00:00: 00 [facility] History of anorexia nervosa History of anorexia nervosa Disease Active 324 00:00: 00 Overview: Formattin g of this note might be different from the original. Reports currently see therapist [facility] Alcohol withdrawal syndrome with perceptual disturbanc e Alcohol withdrawal syndrome with perceptual disturbanc e Disease Active 2020-04 1-13 00:00: 00 [facility] Hypokalemi a Hypokalemi a Disease Active 2020-04 1-10 00:00: 00 [facility] ETOH abuse ETOH abuse Disease Active 4-27 00:00: 00 [facility] E46 Unspecifie d severe protein-ca evette malnutriti on E46 Unspecifie d severe protein-ca evette malnutriti on Disease Active 08-16 00:00: 00 [facility] H/O hernia repair H/O hernia repair Disease Active 08-21 00:00: 00 [facility] Hiatal hernia Hiatal hernia Disease Active 08-21 00:00: 00 [facility] [id number] History of alcohol abuse Problem [facility] [id number] Tobacco use disorder Problem [facility] [id number] Constipati on, unspecifie d constipati on type Problem [facility] [id number] Allergic rhinitis, unspecifie d seasonalit y, unspecifie d trigger Problem [facility] [id number] Mass of chest wall Problem [facility] Attention deficit hyperactiv ity disorder, predominan tly inattentiv e type Attention deficit hyperactiv ity disorder (ADHD), predominan tly inattentiv e type Problem [facility] [id number] GERD without esophagiti s Problem [facility] [id number] Hypercalce manav Problem [facility] [id number] Iron deficiency anemia, unspecifie d iron deficiency anemia type Problem [facility] [id number] Enlarged thyroid Problem [facility] [id number] Abnormal finding on imaging Problem [facility] Intractabl e nausea and vomiting Intractabl e nausea and vomiting Disease Resolve d 08-16 00:00: 00 2021-07-13 00:00:00 2021-07-13 09:24:51 [facility] Rh negative status during Rh negative status during Disease Resolve d 08-22 00:00: 00 2021-07-13 00:00:00 2021-07-13 09:25:04 [facility] Supervisio n of high risk , antepartum , first trimester Supervisio n of high risk , antepartum , first trimester Disease Resolve d 08-21 00:00: 00 2021-07-13 00:00:00 2021-07-13 09:25:05 [facility] Missed menses Missed menses Disease Resolve d 08-21 00:00: 00 2021-07-13 00:00:00 2021-07-13 09:25:08 [facility] Multiparit y Multiparit y Disease Resolve d 08-21 00:00: 00 2021-07-13 00:00:00 2021-07-13 09:24:54 [facility] Tobacco use in , unspecifie d trimester Tobacco use in , unspecifie d trimester Disease Resolve d 08-21 00:00: 00 2021-07-13 00:00:00 2021-07-13 09:25:07 [facility] Needs flu shot Needs flu shot Disease Resolve d 08-21 00:00: 00 2021-07-13 00:00:00 2021-07-13 09:24:56 [facility] History of labor History of labor Disease Resolve d 08-21 00:00: 00 2021-07-13 00:00:00 2021-07-13 09:24:49 [facility] Allergies, Adverse Reactions, Alerts Allergy Name Allergy Type Status Severity Reaction(s) Onset Date Inactive Date Treating Clinician Comments Source No Known Allergie s DA Active U 2016-04 00:00: 00 [facility] NO KNOWN ALLERGIE S Drug Class Active [facility] [address]11 Drug allergy Active Muscle Atrophy [facility] Social History Social Habit Start Date Stop Date Quantity Comments Source Sex Assigned At [facility] History of tobacco use Passive smoker [facility] Talya youssef [facility] Gender identity Ryan natalia Sandoval Sexual orientation [facility] History of Social function 2024-04-25 00:00:00 2024-04-25 00:00:00 [facility] Sammy [facility] Alcoholic beverage intake 2024-03-30 00:00:00 2024-03-30 00:00:00 Current drinker of alcohol (finding) [facility] Tobacco Comment 2023-11-06 00:00:00 2023-11-06 00:00:00 Currently vapes nicotine [facility] Alcohol Comment 2023-11-06 00:00:00 2023-11-06 00:00:00 last drink 4-5 shots yesterday [facility] Tobacco use and exposure 2023-11-06 00:00:00 2023-11-06 00:00:00 Former smokeless tobacco user [facility] Alcohol intake 2023-04-30 00:00:00 2023-04-30 00:00:00 Current non-drinker of alcohol (finding) [facility] Exposure to SARS-CoV-2 (event) 2022-08-17 00:00:00 2022-08-27 20:37:00 Not sure [facility] Cigarettes smoked current (pack per day) - Reported 2018-11-05 00:00:00 2018-11-05 00:00:00 [facility] Smoking Status Start Date Stop Date Source Ex-smoker 2024-04-25 00:00:00 2024-04-25 00:00:00 Josh Sandoval Current Smoker 2023-06-07 00:00:00 [facility] Medications Ordered Medication Name Filled Medication Name Start Date Stop Date Current Medication? Ordering Clinician Indication Dosage Frequency Signature (SIG) Comments Components Source Ensure Enlive liquid 1 Container Ensure Enlive liquid 1 Container 04-25 13:45: 00 Yes 1{conta iner} 1 Container, Oral, 2 times daily with meals, First dose on 04/25/24 at 1345, All flavors Marcos Sandoval technetium Tc-99m mebrofenin (Choletec) radio-isoto pe injection 6.2 millicurie technetium Tc-99m mebrofenin (Choletec) radio-isoto pe injection 6.2 millicurie 04-25 12:45: 00 04-25 12:35 :00 No 6.2mCi 6.2 millicurie , Intravenou s, Once, On 04/25/24 at 1245, For 1 dose Marcos Sandoval sodium chloride (NS) 0.9 % flush 10 mL sodium chloride (NS) 0.9 % flush 10 mL 04-25 09:00: 00 Yes 10mL Q.5D 10 mL, Intravenou s, Every 12 hours scheduled, First dose on Sat04/25/24 at 0900, Administer at least once every 12 hours Marcos Sandoval lidocaine 4 % patch 1 patch lidocaine 4 % patch 1 patch 04-25 09:00: 00 Yes 1{patch } QD 1 patch, Apply externally , Administer over 12 Hours, Daily, First dose on Sat04/25/24 at 0900, Apply to most painful incision. Apply for 12 hrs on, then 12 hrs off. Marcos Sandoval thiamine (Vitamin B-1) tablet 100 mg thiamine (Vitamin B-1) tablet 100 mg 04-25 09:00: 00 04-30 08:59 :00 No 100mg QD 100 mg, Oral, Daily, First dose on Sat04/25/24 at 0900, For 5 days Marcos Sandoval folic acid (Folvite) tablet 1 mg folic acid (Folvite) tablet 1 mg 04-25 09:00: 00 04-30 08:59 :00 No 1mg QD 1 mg, Oral, Daily, First dose on Sat04/25/24 at 0900, For 5 days Marcos Sandoval multivitami n (Theragran- M) tablet 1 tablet multivitami n (Theragran- M) tablet 1 tablet 04-25 09:00: 00 04-30 08:59 :00 No 1{tbl} QD 1 tablet, Oral, Daily, First dose on Sat04/25/24 at 0900, For 5 doses Marcos Sandoval metoprolol succinate XL (Toprol-XL) 24 hr tablet 25 mg metoprolol succinate XL (Toprol-XL) 24 hr tablet 25 mg 04-25 09:00: 00 04-25 00:00 :00 Yes 25mg QD 25 mg, Oral, Daily, First dose on Sat04/25/24 at 0900, Do not crush or chew. Marcos Sandoval cefTRIAXone (Rocephin) 1 g in sterile water injection cefTRIAXone (Rocephin) 1 g in sterile water injection 04-25 05:00: 00 05-02 04:59 :00 No 1g 1 g, Intravenou s, Administer over 5 Minutes, Every 24 hours, First dose on 04/25/24 at 0500, For 7 days, Reconstitu te vial with 10 mL sterile water for injection. Prepare dose at bedside immediatel y prior to administra tion. Reconstitu tion: Shake immediatel y and vigorously . Withdraw entire contents and give IV push slowly over specified time., Suspected Indication (Select all that apply): Urinary Tract Infection Mracos Sandoval LORazepam (Ativan) injection 2 mg LORazepam (Ativan) injection 2 mg 04-25 04:43: 34 Yes 2mg 2 mg, Intravenou s, Every 2 hour PRN, CIWA-Ar Score 8 -14., Starting on 04/25/24 at 0443, Contact HO if 6mg Lorazepam given in 6 hours with no improvemen t. Marcos Sandoval sodium chloride (NS) 0.9 % flush 10 mL sodium chloride (NS) 0.9 % flush 10 mL 04-25 04:42: 59 Yes 10mL 10 mL, Intravenou s, As needed, line care, Line Flush, Starting on 04/25/24 at 0442 Marcos Sandoval sodium chloride 0.9 % infusion 1,000 mL sodium chloride 0.9 % infusion 1,000 mL 04-25 04:40: 00 04-25 13:17 :59 No 1000mL 1,000 mL, Intravenou s, at 125 mL/hr, Continuous , Starting on 04/25/24 at 0440 Marcos Sandoval ondansetron (Zofran) injection 4 mg ondansetron (Zofran) injection 4 mg 04-25 04:39: 08 Yes 4mg Q6H 4 mg, Intravenou s, Every 6 hours PRN, vomiting, nausea, Starting on 04/25/24 at 0439 Marcos Sandoval traMADol (Ultram) tablet 100 mg traMADol (Ultram) tablet 100 mg 04-25 04:39: 01 04-30 04:38 :01 No 100mg Q6H 100 mg, Oral, Every 6 hours PRN, severe pain (7-10), Starting on 04/25/24 at 0439, For 5 days, Maximum traMADol = 400 mg in 24 hrs Marcos Sandoval traMADol (Ultram) tablet 50 mg traMADol (Ultram) tablet 50 mg 04-25 04:38: 55 04-30 04:37 :55 No 50mg Q6H 50 mg, Oral, Every 6 hours PRN, moderate pain (4-6), Starting on 04/25/24 at 0438, For 5 days Marcos Sandoval methocarbam ol (Robaxin) tablet 1,000 mg methocarbam ol (Robaxin) tablet 1,000 mg 04-25 04:38: 50 Yes 1000mg Q8H 1,000 mg, Oral, Every 8 hours PRN, muscle spasms, Starting on 04/25/24 at 043, Non-sedati ng, No ability to develop tolerance. Marcos Sandoval naloxone (Narcan) injection 0.04 mg naloxone (Narcan) injection 0.04 mg 04-25 04:38: 27 Yes .04mg 0.04 mg, Intravenou s, As needed, opioid reversal, every 2 mins PRN for Narcotic Reversal, Starting on 04/25/24 at 043, For 8 doses, Give up to 8 doses of 0.04 mg as needed to reverse over sedation. Keep available for immediate use. Call ordering physician STAT. (Dilute 0.4 mg/mL in 9 mL of saline) Marcos Sandoval glucagon recombinant (Glucagen) injection 1 mg glucagon recombinant (Glucagen) injection 1 mg 04-25 04:31: 00 Yes 1mg 1 mg, Intramuscu lar, As needed, For BG < 70 mg/dL if no IV access and patient is either Unconsciou s, unable to swallow or npo, Starting on 04/25/24 at 0431, For BG < 70 mg/dL if no IV access and patient is either Unconsciou s, unable to swallow or npo and notify . Marcos Sandoval dextrose 50 % solution 25 g dextrose 50 % solution 25 g 04-25 04:31: 00 Yes 25g 25 g, Intravenou s, As needed, other, if Blood Glucose </= 50 mg/dL, Starting on 04/25/24 at 0431, If BG </=50 mg/dL, give 50 mL of D50W IV push STAT and notify MD. Marcos Sandoval dextrose 50 % solution 12.5 g dextrose 50 % solution 12.5 g 04-25 04:31: 00 Yes 12.5g 12.5 g, Intravenou s, As needed, low blood sugar, if Blood Glucose 51- 69 mg/dL, Starting on 04/25/24 at 0431, For BG 51-69 mg/dL and patient UNCONSCIOU S OR UNABLE TO SWALLOW OR NPO: Give 25 mL of D50W IV push and notify MD. Marcos Sandoval PHENobarbit al (Luminal) injection 130 mg PHENobarbit al (Luminal) injection 130 mg 04-25 03:45: 00 04-25 04:25 :00 No 130mg 130 mg, Intravenou s, Administer over 3 Minutes, Once, On 04/25/24 at 0345, For 1 dose, Administer no faster than 1 mg/kg/theodore te, to a max of 60 mg/min in adults. Marcos Sandoval iohexol (OMNIPaque) 350 MG/ML injection 100 mL iohexol (OMNIPaque) 350 MG/ML injection 100 mL 04-25 01:52: 04 04-25 01:52 :00 No 100mL 100 mL, Intravenou s, Once in imaging, Starting on 04/25/24 at 0152, For 1 dose Marcos Sandoval ondansetron (Zofran) injection 4 mg ondansetron (Zofran) injection 4 mg 04-25 01:45: 00 04-25 02:24 :00 No 4mg 4 mg, Intravenou s, Once, On 04/25/24 at 0145, For 1 dose, Administer IVP. Marcos Sandoval morphine PF injection 4 mg morphine PF injection 4 mg - 01:45: 00 04-25 02:24 :00 No 4mg 4 mg, Intravenou s, Once, On 04/25/24 at 0145, For 1 dose, Administer IVP. Marcos Christianson Epic electrolyte solution pH 7.4 (Plasma-lyt e/Normosol/ Isolyte) infusion 1,000 mL electrolyte solution pH 7.4 (Plasma-lyt e/Normosol/ Isolyte) infusion 1,000 mL 04-24 22:15: 00 04-24 23:31 :00 No 1000mL 1,000 mL, Intravenou s, Administer over 1 Hours, Once, On Sat04/24/24 at 2215, For 1 dose Marcos Christianson Epic PHENobarbit al (Luminal) injection 260 mg PHENobarbit al (Luminal) injection 260 mg 04-24 22:00: 00 04-24 22:32 :00 No 260mg 260 mg, Intravenou s, Once, On Sat04/24/24 at 2200, For 1 dose, Administer no faster than 1 mg/kg/theodore te, to a max of 60 mg/min in adults. Marcos Christianson Epic PHENobarbit al (Luminal) injection 260 mg PHENobarbit al (Luminal) injection 260 mg 04-24 15:45: 00 04-24 16:29 :00 No 260mg 260 mg, Intravenou s, Once, On Sat04/24/24 at 1545, For 1 dose, Give as IV push Marcos Sandoval NaCl 0.9% (NS) IV infusion 1,000 mL 2023-04 08:30: 00 04-05 09:30 :00 No 1000mL at 999 mL/hr, Intravenou s, ONCE, 1 dose, On 04/05/24 at 0230, [facility] acetaminoph en (TYLENOL) tablet 650 mg 2023-04 07:45: 00 04-05 07:42 :00 No 650mg 650 mg, Oral, ONCE, 1 dose, On 04/05/24 at 0145, [facility] iopamidol (ISOVUE 370-500 mL) injection 75 mL 2023-04 07:45: 00 04-05 07:45 :00 No [id number] 75mL 75 mL, Intravenou s, ONCE, 1 dose, On 04/05/24 at 0145, Routine [facility] ondansetron (ZOFRAN (PF)) injection 4 mg 2023-04 05:45: 00 04-05 05:46 :00 No 4mg 4 mg, Slow IV Push, ONCE, 1 dose, On 04/04/24 at 2345, Administer over 2-5 Minutes, [address] [facility] NaCl 0.9% (NS) IV infusion 1,000 mL 2023-04 05:32: 00 04-05 07:43 :00 No 1000mL at 999 mL/hr, Intravenou s, ONCE, 1 dose, On 04/04/24 at 2345, CECILIA [facility] sodium chloride (NS) injection 5 mL 2023-04 05:12: 47 Yes 5mL 5 mL, Intravenou s, PRN, Starting on 04/04/24 at 2312, Until Discontinu ed, Routine, IV line flushing [facility] HYDROcodone -acetaminop hen (NORCO 5) tablet 1 tablet 2023-04 02:30: 00 03-31 01:53 :00 No 1{tbl} 1 tablet, Oral, ONCE, 1 dose, On Sat03/30/24 at 2030, [facility] ondansetron (ZOFRAN-ODT ) disintegrat ing tablet 4 mg 2023-04 01:45: 00 03-31 01:53 :00 No 4mg 4 mg, Oral, ONCE, 1 dose, On Sat03/30/24 at 2000, Routine [facility] ondansetron (ZOFRAN-ODT ) disintegrat ing tablet 4 mg 2023-04 10:15: 00 03-30 09:28 :00 No 4mg 4 mg, Oral, ONCE, 1 dose, On Sat03/30/24 at 0415, Routine [facility] ibuprofen (IBU) tablet 600 mg 2023-04 09:15: 00 03-30 09:24 :00 No 600mg 600 mg, Oral, ONCE, 1 dose, On Sat03/30/24 at 0315, [facility] cephALEXin 500 mg capsule 2023-04 00:00: 00 04-07 05:59 :00 Yes [id number] 500mg Take 1 capsule by mouth in the morning and 1 capsule in the evening. Do all this for [address] [facility] methocarbam oL (ROBAXIN) tablet 1,000 mg 2023-04 0 19:30: 00 01-25 20:18 :00 No 1000mg 1,000 mg, Oral, ONCE, 1 dose, On 01/26/24 at 1430, [facility] ibuprofen (IBU) tablet 600 mg 2023-04 19:30: 00 01-25 20:18 :00 No 600mg 600 mg, Oral, ONCE, 1 dose, On 01/26/24 at 1430, [facility] methocarbam oL 750 mg tablet 2023-04 00:00: 00 Yes [id number] 750mg Take 1 tablet by mouth 3 (three) times daily as needed (body aches). [facility] fentanyl PF (SUBLIMAZE (PF)) injection 50 mcg 12-27 02:00: 00 12-27 02:00 :00 No 50ug 50 mcg, Intramuscu lar, ONCE, 1 dose, On Sat12/27/23 at 2100, Routine [facility] HYDROcodone -acetaminop hen (NORCO 5) tablet 1 tablet 12-26 21:15: 00 12-26 21:55 :00 No 1{tbl} 1 tablet, Oral, ONCE, 1 dose, On Sat12/27/23 at 1615, [facility] HYDROcodone -acetaminop hen (NORCO) 10-325 mg tablet 1 tablet 12-15 12:15: 00 12-15 11:26 :00 No 1{tbl} 1 tablet, Oral, ONCE NOW, 1 dose, On Sat12/16/23 at 0715, Routine [facility] traMADoL (ULTRAM) 50 mg tablet 12-15 00:00: 00 Yes [id number] 50mg Take 1 tablet by mouth every 6 (six) hours as needed for Pain (scale 7-10). Indication s: acute pain [facility] magnesium sulfate in water 2 gram/50 mL (4 %) infusion 2 g 12-07 21:45: 00 12-07 21:30 :00 No 2g 2 g, IV Piggyback, Administer over 60 Minutes, ONCE, 1 dose, On Sat12/08/23 at 1645, [facility] thiamine (VITAMIN B1) 100 mg in NaCl 0.9% (NS) piggyback 12-07 20:30: 00 12-07 21:01 :00 No 100mg IV Piggyback, ONCE, 1 dose, On Sat12/08/23 at 1530, [address] [facility] LORazepam (ATIVAN) tablet 1 mg 12-07 20:00: 00 12-07 20:03 :00 No 1mg 1 mg, Oral, ONCE, 1 dose, On Sat12/08/23 at 1500[facility] 400 mg (241.3 mg magnesium) tablet 12-07 00:00: 00 Yes [id number] 800mg Take 2 tablets by mouth in the morning. [facility] chlordiazeP OXIDE 25 mg capsule 12-07 00:00: 00 Yes [id number] 100mg Take 4 capsules by mouth in the morning and 4 capsules at noon and 4 capsules in the evening. [facility] diphenhydrA MINE (BENADRYL) tablet 25 mg 12-05 08:30: 00 12-05 08:21 :00 No 25mg 25 mg, Oral, ONCE, 1 dose, On Sat12/06/23 at 0330, [facility] LORazepam (ATIVAN) tablet 1 mg 12-05 07:00: 00 2024- 08-16 06:58 :00 No 1mg 1 mg, Oral, ONCE, 1 dose, On Sat12/06/23 at 0200, [facility] LORazepam (ATIVAN) tablet 1 mg 12-04 05:00: 00 12-04 05:05 :00 No 1mg 1 mg, Oral, ONCE, 1 dose, On Sat12/05/23 at 0000, [facility] NaCl 0.9% (NS) bolus infusion 1,000 mL 12-04 04:45: 00 12-04 04:50 :00 No 1000mL at 999 mL/hr, 1,000 mL, IV Infusion, ONCE, 1 dose, On Sat12/04/23 at 2345, [facility] Lidocaine (LIDOCARE) 4 % patch 1 Patch 11-21 18:15: 00 11-22 06:14 :00 No 1{patch } 1 Patch, Topical, Administer over 12 Hours, ONCE, 1 dose, On Sat11/22/23 at 1315, [facility] NaCl 0.9% (NS) bolus infusion 1,000 mL 11-21 18:15: 00 11-21 19:21 :00 No 1000mL at 999 mL/hr, 1,000 mL, IV Infusion, ONCE, 1 dose, On Sat11/22/23 at 1315, [facility] ketorolac (TORADOL) injection 30 mg 11-21 17:40: 00 11-21 17:52 :00 No 30mg 30 mg, Slow IV Push, ONCE, 1 dose, On Sat11/22/23 at 1245, [facility] proCHLORper azine (COMPAZINE) 10 mg in NaCl 0.9% (NS) piggyback 11-21 17:30: 00 11-21 18:24 :00 No 10mg 10 mg, IV Piggyback, at 100 mL/hr Administer over 30 Minutes, ONCE, 1 dose, On Sat11/22/23 at 1230, [facility] methocarbam oL (ROBAXIN) tablet 1,000 mg 11-21 17:30: 00 11-21 17:56 :00 No 1000mg 1,000 mg, Oral, ONCE, 1 dose, On Sat11/22/23 at 1230, [facility] metoprolol tartrate (LOPRESSOR) tablet 25 mg 11-08 14:15: 00 Yes 25mg 25 mg, Oral, BID, First dose on Sat11/09/23 at 0915, Until Discontinu ed, Routine [facility] oxazepam (SERAX) capsule 15 mg 11-08 06:01: 04 11-09 06:14 :00 No 15mg 15 mg, Oral, Q12H TAPER, 2 doses, First dose on Sat11/09/23 at 0115, Last dose on Sat11/09/23 at 1315, Routine [facility] metoprolol tartrate 25 mg tablet 11-08 00:00: 00 12-09 04:59 :00 No [id number] 25mg Take 1 tablet by mouth in the morning and 1 tablet in the evening. Do all this for [address] [facility] KCL (KLOR-CON M20) tablet 20 mEq 11-07 23:00: 00 11-07 22:58 :00 No 20meq 20 mEq, Oral, ONCE, 1 dose, On Sat11/08/23 at 1800, Routine [facility] diphenhydrA MINE (BENADRYL) tablet 25 mg 11-07 13:03: 50 Yes 25mg 25 mg, Oral, Q6HPRN, Starting on Sat11/08/23 at 0803, Until Discontinu ed, Routine, Itching [facility] phosphorus (K PHOS NEUTRAL) tablet 1 tablet 11-07 13:00: 00 11-09 12:59 :00 No 250mg 1 tablet (250 mg), Oral, BID, 4 doses, First dose on Sat11/08/23 at 0800, Last dose on Sat11/09/23 at 2000, Routine [facility] magnesium sulfate in water 2 gram/50 mL (4 %) infusion 2 g 11-07 13:00: 00 11-07 14:34 :00 No 2g 2 g, IV Piggyback, Administer over 60 Minutes, ONCE, 1 dose, On Sat11/08/23 at 0800, Routine [facility] potassium phosphate 30 mmol in NaCl 0.9% (NS) 500 mL piggyback 11-07 13:00: 00 11-07 20:30 :00 No 30mmol 30 mmol, IV Piggyback, ONCE, 1 dose, On Sat11/08/23 at 0800, [address] [facility] HYDROmorpho ne (DILAUDID) injection 0.5 mg 11-07 10:45: 00 11-07 10:31 :00 No .5mg 0.5 mg, Slow IV Push, ONCE, 1 dose, On Sat11/08/23 at 0545, Routine, Is this medication approved by a Faculty level provider? Yes, cafe team member approving Restricted medication : WILLIAM CASTORENA [facility] traMADoL (ULTRAM) tablet 50 mg 11-07 01:50: 29 Yes 50mg 50 mg, Oral, Q6HPRN, Starting on Sat11/07/23 at 2049, Until Discontinu ed, Routine, Pain (scale 4-6) [facility] FENTanyl PF (SUBLIMAZE (PF)) injection 25 mcg 11-07 01:29: 16 Yes 25ug 25 mcg, Slow IV Push, Q4HPRN, Starting on Sat11/07/23 at 2028, Until Discontinu ed, Routine, Pain (scale 7-10) [facility] NaCl 0.9% (NS) IV infusion 1,000 mL 11-07 00:30: 00 11-07 13:51 :28 No 1000mL at 75 mL/hr, IV Infusion, CONTINUOUS , Starting on Sat11/07/23 at 1930, Until Sat11/08/23 at 0851, Routine [facility] sodium phosphate 15 mmol in NaCl 0.9% (NS) 250 mL piggyback 11-06 14:45: 00 11-06 19:18 :00 No 15mmol 15 mmol, IV Piggyback, ONCE, 1 dose, On Sat11/07/23 at 0945, Administer over 4 Hours, [address] [facility] thiamine mononitrate (VITAMIN B-1 (MONONITRAT E)) tablet 100 mg 11-06 14:00: 00 Yes 100mg 100 mg, Oral, DAILY, First dose on Sat11/07/23 at 0900, Until Discontinu ed, Routine [facility] foLIC acid (FOLATE) tablet 1 mg 11-06 14:00: 00 Yes 1mg 1 mg, Oral, DAILY, First dose on Sat11/07/23 at 0900, Until Discontinu ed, Routine [facility] pantoprazol e (PROTONIX) EC tablet 40 mg 11-06 13:00: 00 Yes 40mg 40 mg, Oral, BID, First dose on Sat11/07/23 at 0800, Until Discontinu ed, Routine [facility] sucralfate (CARAFATE) tablet 1 g 11-06 02:00: 00 Yes 1g 1 g, Oral, AC+HS, First dose on Sat11/06/23 at 2100, Until Discontinu ed, Routine [facility] magnesium sulfate in water 2 gram/50 mL (4 %) infusion 2 g 11-06 01:30: 00 11-06 02:48 :00 No 2g 2 g, IV Piggyback, Administer over 60 Minutes, ONCE, 1 dose, On Sat11/06/23 at 2030, [facility] oxazepam (SERAX) capsule 15 mg 11-06 00:01: 04 Yes 15mg 15 mg, Oral, Q4HPRN, Starting on Sat11/06/23 at 1901, Until Discontinu ed, Routine, Only while awake for DBP equal to or greater than 100, HR equal to or greater than 100. [facility] nicotine (NICODERM) 21 mg/24 hr patch 1 Patch 11-06 00:00: 00 Yes 1{patch } 1 Patch, Topical, Administer over 24 Hours, Q24H, First dose on Sat11/06/23 at 1900, Until Discontinu ed, Routine [facility] pantoprazol e (PROTONIX) injection 40 mg 11-05 23:45: 00 11-05 23:08 :00 No 40mg 40 mg, Slow IV Push, ONCE, 1 dose, On Sat11/06/[address] [facility] ondansetron (ZOFRAN (PF)) injection 4 mg 11-05 22:47: 22 Yes 4mg 4 mg, Slow IV Push, Q6HPRN, Nausea and Vomiting (N/V), Starting on Sat11/06/23 at 1747, Doses of ondansetro n 16 mg and above need to be administer ed via IV piggyback. For Dose >=24mg ECG monitoring is advisable. [facility] enoxaparin (LOVENOX) injection 40 mg 11-05 22:00: 00 Yes 40mg 40 mg, Subcutaneo us, DAILY, First dose on Sat11/06/23 at 1700, Until Discontinu ed, Routine [facility] D5W 0.45% NaCl (1/2NS) 1 L + KCL 20 mEq 11-05 20:45: 00 11-06 13:45 :29 No Intravenou s, at 125 mL/hr, CONTINUOUS , Starting on Sat11/06/23 at 1545, Until [place] 11/07/23 at 0845, [facility] NaCl 0.9% (NS) bolus infusion 1,000 mL 11-05 20:00: 00 11-05 20:14 :00 No 1000mL at 999 mL/hr, 1,000 mL, IV Infusion, ONCE, 1 dose, On Sat11/06/23 at 1500, STAT [facility] thiamine (VITAMIN B1) injection 100 mg 11-05 18:45: 00 11-05 18:55 :00 No 100mg 100 mg, Slow IV Push, ONCE, 1 dose, On Sat11/06/23 at 1345, [facility] ondansetron (ZOFRAN (PF)) injection 4 mg 10-27 14:45: 00 10-27 14:42 :00 No 4mg 4 mg, Slow IV Push, ONCE, 1 dose, On Sat10/28/23 at 0945, [facility] NaCl 0.9% (NS) IV infusion 1,000 mL 10-27 09:45: 00 Yes 1000mL at 150 mL/hr, Intravenou s, CONTINUOUS , Starting on Sat10/28/23 at 0445, Until Discontinu ed, Routine [facility] ondansetron (ZOFRAN-ODT ) disintegrat ing tablet 4 mg 10-18 17:00: 00 10-18 16:15 :00 No 4mg 4 mg, Oral, ONCE, 1 dose, On 10/19/23 at 1200, Routine [facility] hydrOXYzine (ATARAX) tablet 25 mg 10-18 16:00: 00 10-18 16:15 :00 No 25mg 25 mg, Oral, ONCE, 1 dose, On 10/19/23 at 1100, [facility] ondansetron 4 mg disintegrat ing tablet 10-18 00:00: 00 Yes [id number] 4mg Take 1 tablet by mouth every 8 (eight) hours as needed for Nausea and Vomiting (N/V). [facility] hydrOXYzine 25 mg tablet 10-18 00:00: 00 Yes [id number] 25mg Take 1 tablet by mouth every 6 (six) hours as needed for Anxiety. [facility] neomycin-po lymyxin-pra moxine 3.5-10,000- 10 mg-unit-mg/ gram cream 10-17 00:00: 00 Yes [id number] Apply to area(s) 2 (two) times daily. [facility] cholecalcif catherine, vitamin D3, 25 mcg (1,000 unit) tablet 09-21 00:00: 00 10-22 04:59 :00 No [id number] 1000U Take 1 tablet by mouth in the morning for [address] [facility] foLIC acid 1 mg tablet 09-21 00:00: 00 10-22 04:59 :00 No [id number] 1mg Take 1 tablet by mouth in the morning for [address] [facility] KCL (KLOR-CON M20) tablet 40 mEq 09-20 14:30: 00 09-20 14:15 :00 No 40meq 40 mEq, Oral, ONCE, 1 dose, On 09/21/23 at 0930, Routine [facility] lisdexamfet amine (VYVANSE) 60 mg capsule 09-20 12:06: 59 Yes 60mg Take 1 capsule by mouth every morning. [facility] oxazepam (SERAX) capsule 15 mg 09-20 [...] 09/22/23 at 1230, Routine [Order [address] End] [facility] benzonatate 100 mg capsule 09-20 00:00: 00 10-01 04:59 :00 No [id number] 100mg Take 1 capsule by mouth every 8 (eight) hours as needed for Cough for up to [address] [facility] zinc sulfate 50 mg zinc (220 mg) capsule 09-20 00:00: 00 10-01 04:59 :00 No [id number] 50mg Take 1 capsule by mouth in the morning and 1 capsule at noon and 1 capsule in the evening. Do all this for [address] [facility] amoxicillin -clavulanat e 875-125 mg per tablet 09-20 00:00: 00 09-26 04:59 :00 No [id number] 1{tbl} Take 1 tablet by mouth in the morning and 1 tablet in the evening. Do all this for [address] [facility] dexAMETHaso ne 4 mg tablet 09-20 00:00: 00 09-26 04:59 :00 No [id number] 6mg Take 1.5 tablets by mouth every 12 (twelve) hours for [address] [facility] cefTRIAXone (ROCEPHIN) 1,000 mg in NaCl 0.9% (NS) 100 mL MINI-BAG 09-19 23:30: 00 09-24 23:29 :00 No 1000mg 1,000 mg, IV Piggyback, Q24H ABX, 5 doses, First dose on Sat09/20/23 at 1830, Last dose on Sat09/24/23 at 1830, Administer over 30 Minutes, 100 mL, Reason for Anti-Infec tive: Documented Infection, Documented Infection Site: Respirator y, Duration of Therapy: [address] [facility] cholecalcif catherine (vitamin D3) tablet 1,000 Units 09-19 14:00: 00 Yes 1000U 1,000 Units, Oral, DAILY, First dose on Sat09/20/23 at 0900, Until Discontinu ed, Routine [facility] metoprolol succinate XL (TOPROL XL) tablet 25 mg 09-19 14:00: 00 Yes 25mg 25 mg, Oral, DAILY, First dose on Sat09/20/23 at 0900, Until Discontinu ed, Routine [facility] foLIC acid (FOLATE) tablet 1 mg 09-19 14:00: 00 Yes 1mg 1 mg, Oral, DAILY, First dose on Sat09/20/23 at 0900, Until Discontinu ed, Routine [facility] enoxaparin (LOVENOX) injection 40 mg 09-19 14:00: 00 Yes 40mg 40 mg, Subcutaneo us, DAILY, First dose on Sat09/20/23 at 0900, Until Discontinu ed, Routine [facility] zinc sulfate (ORAZINC) capsule 50 mg 09-19 13:00: 00 Yes 50mg 50 mg, Oral, TID, First dose on Sat09/20/23 at 0800, Until Discontinu ed, Routine [facility] ascorbic acid (vitamin C) (VITAMIN C) tablet 500 mg 09-19 13:00: 00 Yes 500mg 500 mg, Oral, BID, First dose on Sat09/20/23 at 0800, Until Discontinu ed, Routine [facility] ipratropium -albuteroL (DUONEB) 0.5 mg-3 mg(2.5 mg base)/3 mL nebulizer solution 3 mL 09-19 13:00: 00 09-19 14:58 :45 No 3mL 3 mL, Inhalation , QID, First dose on Sat09/20/23 at 0800, Until Discontinu ed, Routine [facility] ipratropium -albuteroL (DUONEB) 0.5 mg-3 mg(2.5 mg base)/3 mL nebulizer solution 3 mL 09-19 12:32: 50 Yes 3mL 3 mL, Inhalation , QIDPRN, Starting on Sat09/20/23 at 0732, Until Discontinu ed, Routine, Wheezing, Shortness of Breath, Bronchospa sm, Chest tightness [facility] azithromyci n (ZITHROMAX) 500 mg in [...] Respirator y, Duration of therapy: [address] [facility] dexamethaso ne sod phos PF injection 6 mg 09-19 03:00: 00 Yes 6mg 6 mg, Intravenou s, DAILY, First dose (after last modificati on) on Sat09/19/23 at 2200, Until Discontinu ed, 1 mL [facility] benzocaine- menthoL (CEPACOL SORE THROAT (VENITA-MEN)) lozenge 1 Lozenge 09-19 02:44: 39 Yes 1{lozen ge} 1 Lozenge, Oral, Q4HPRN, Starting on Sat09/19/23 at 2144, Until Discontinu ed, Routine, [facility] ben[facility] (TESSALON PERLES) capsule 100 mg 09-19 02:44: 33 Yes 100mg 100 mg, Oral, Q8HPRN, Starting on Sat09/19/23 at 2144, Until Discontinu ed, Routine, Cough [facility] codeine-gua ifenesin (ROBITUSSIN AC) 10-100 mg/5 mL oral solution 5 mL 09-19 02:44: 22 Yes 5mL 5 mL, Oral, Q6HPRN, Starting on Sat09/19/23 at 2144, Until Discontinu ed, Routine, Cough [facility] NaCl 0.9% (NS) IV infusion 1,000 mL 09-18 23:15: 00 09-19 22:10 :01 No 1000mL at 125 mL/hr, IV Infusion, CONTINUOUS , Starting on Sat09/19/23 at 1815, Until Sat09/20/23 at 1710, Routine [facility] oxazepam (SERAX) capsule 15 mg 09-18 23:05: 39 Yes 15mg 15 mg, Oral, Q4HPRN, Starting on Sat09/19/23 at 1805, Until Discontinu ed, Routine, Only while awake for DBP equal to or greater than 100, HR equal to or greater than 100. [facility] ondansetron (ZOFRAN (PF)) injection 4 mg 09-18 23:05: 04 Yes 4mg [facility] HYDROcodone -acetaminop hen (NORCO 5) 5-325 mg tablet 1 tablet 09-18 23:04: 59 09-20 23:03 :59 No 1{tbl} 1 tablet, Oral, Q6HPRN, Starting on [place] 09/19/23 at 1804, Until 09/21/23 at 1803, Routine, Pain (scale 4-6) [facility] acetaminoph en (TYLENOL) tablet 650 mg 09-18 23:04: 44 Yes 650mg 650 mg, Oral, Q6HPRN, Starting on Sat09/19/23 at 1804, Until Discontinu ed, Routine, Pain (scale 1-3) [facility] ondansetron (ZOFRAN (PF)) injection 4 mg 09-18 21:15: 00 09-18 20:11 :00 No 4mg 4 mg, Slow IV Push, ONCE, 1 dose, On Sat09/19/23 at 1615, [facility] acetaminoph en (TYLENOL) tablet 1,000 mg 09-18 21:00: 00 09-18 20:58 :00 No 1000mg 1,000 mg, Oral, ONCE, 1 dose, On Sat09/19/23 at 1600, Routine [facility] NaCl 0.9% (NS) bolus infusion 1,000 mL 09-18 19:45: 00 09-18 20:11 :00 No 1000mL at 999 mL/hr, 1,000 mL, IV Infusion, ONCE, 1 dose, On Sat09/19/23 at 1445, STAT [facility] magnesium sulfate in water 2 gram/50 mL (4 %) infusion 2 g 09-18 18:00: 00 09-18 18:21 :00 No 2g 2 g, IV Piggyback, Administer over 60 Minutes, ONCE, 1 dose, On Sat09/19/23 at 1300, Routine [facility] NaCl 0.9% (NS) bolus infusion 1,566 mL 09-18 18:00: 00 09-18 20:11 :00 No 30mL/kg at 999 mL/hr, 1,566 mL (30 mL/kg ?52.2 kg), IV Infusion, ONCE, 1 dose, On Sat09/19/23 at 1300, [facility] ondansetron (ZOFRAN (PF)) injection 4 mg 09-18 18:00: 00 09-18 17:05 :00 No 4mg 4 mg, Slow IV Push, ONCE, 1 dose, On Sat09/19/23 at 1300, [facility] LORazepam (ATIVAN) injection 1 mg 09-18 17:00: 09-18 17:05 :00 No 1mg 1 mg, Slow IV Push, ONCE, 1 dose, On [place] 09/19/23 at 1200, [facility] NaCl 0.9% (NS) bolus infusion 1,000 mL 09-14 17:30: 09-14 18:27 :00 No 1000mL at 999 mL/hr, 1,000 mL, IV Infusion, ONCE, 1 dose, On Sat09/15/23 at 1230, [facility] iopamidol (ISOVUE 370-500 mL) injection 80 mL 09-14 17:15: 09-14 17:30 :00 No [id number] 80mL 80 mL, Intravenou s, ONCE, 1 dose, On Sat09/15/23 at 1230, Routine [facility] NaCl 0.9% (NS) bolus infusion 1,000 mL 09-13 00:15: 09-13 01:01 :00 No [id number] 1000mL at 999 mL/hr, 1,000 mL, IV Infusion, ONCE, 1 dose, On Sat09/13/23 at 1915, [facility] acetaminoph en (TYLENOL) tablet 650 mg 09-13 00:15: 00 09-12 23:34 :00 No [id number] 650mg 650 mg, Oral, ONCE, 1 dose, On Sat09/13/23 at 1915, [facility] Vyvanse 60 MG Vyvanse 60 MG 3- [...] Sulfate 0.3 % Gentamicin Sulfate 0.3 % -20 00:00: 00 No 1{drop_ into_af fected_ eye} 6xD Gentamicin Sulfate 0.3 % Vyvanse 60 MG Vyvanse 60 MG -18 00:00: 00 No 1{capsu le_in_t he_morn ing} QD Vyvanse 60 MG permethrin 5 % cream - 00:00: 00 Yes [id number] Apply cream from neck down, leave on for 8-14 h, repeat in [address] [facility] permethrin 5 % cream 04-30 00:00: 00 Yes [id number] As directed. [facility] hydrOXYzine 25 mg tablet 04-30 00:00: 00 05-06 05:59 :00 No [id number] 25mg Take 1 tablet by mouth 3 (three) times daily as needed for Itching for up to [address] [facility] foLIC acid 1 mg tablet 04-28 00:00: 00 05-29 05:59 :00 No [id number] 1mg Take 1 tablet by mouth in the morning for [address] [facility] thiamine 100 mg tablet 04-28 00:00: 00 05-29 05:59 :00 No [id number] 100mg Take 1 tablet by mouth in the morning for [address] [facility] oxazepam (SERAX) capsule 10 mg 04-27 19:15: 00 04-28 19:14 :00 No 10mg 10 mg, Oral, Q12H TAPER, 2 doses, First dose (after last modificati on) on 04/27/23 at 1315, Last dose on Sat04/28/23 at 0115, Routine [facility] KCL (KLOR-CON M20) tablet 40 mEq 04-27 15:00: 00 Yes 40meq 40 mEq, Oral, DAILY, First dose on 04/27/23 at 0900, Until Discontinu ed, Routine [facility] metoprolol succinate XL (TOPROL XL) tablet 12.5 mg 04-27 15:00: 00 Yes 12.5mg 12.5 mg, Oral, DAILY, First dose on 04/27/23 at 0900, Until Discontinu ed, Routine [facility] magnesium oxide (MAG-OX 400) tablet 800 mg 04-27 15:00: 00 04-30 14:59 :00 No 800mg 800 mg, Oral, DAILY, 3 doses, First dose on 04/27/23 at 0900, Last dose on Sat04/29/23 at 0900, Routine [facility] lisdexamfet amine (VYVANSE) 60 mg capsule 04-27 09:58: 30 Yes 60mg Take 1 capsule by mouth every morning. [facility] LISINOPRIL ORAL 04-27 08:55: 37 04-27 00:00 :00 No Take by mouth. [facility] KCL 20 mEq tablet 04-27 00:00: 00 05-05 05:59 :00 No [id number] 20meq Take 1 tablet by mouth in the morning for [address] [facility] magnesium oxide 420 mg Tab 04-27 00:00: 00 05-05 05:59 :00 No [id number] 400mg Take 400 mg by mouth in the morning for [address] [facility] NaCl 0.9% (NS) IV infusion 1,000 mL 04-26 20:00: 00 Yes 1000mL at 150 mL/hr, IV Infusion, CONTINUOUS , Starting on Sat04/26/23 at 1400, Until Discontinu ed, Routine
Resume after banana bag is completed< br> [facility] metoprolol tartrate (LOPRESSOR) tablet 12.5 mg 04-26 20:00: 00 04-27 14:52 :31 No 12.5mg 12.5 mg, Oral, BID, First dose on Sat04/26/23 at 1400, Until Discontinu ed, Routine [facility] magnesium sulfate in water 4 gram/50 mL (8 %) IV Piggyback 4 g 04-26 15:15: 00 04-26 20:54 :00 No 4g 4 g, IV Piggyback, at 25 mL/hr Administer over 120 Minutes, ONCE, 1 dose, On Sat04/26/23 at 0915, [facility] potassium chloride in water 10 mEq/100 mL RTU 10 mEq 04-26 14:45: 00 04-26 18:54 :00 No 10meq 10 mEq, IV Piggyback, Q1H, 4 doses, First dose on Sat04/26/23 at 0845, Last dose on Sat04/26/23 at 1100, Administer over 60 Minutes, [address] [facility] diazePAM (VALIUM) injection 10 mg 04-25 16:47: 50 Yes 10mg 10 mg, Intravenou s, Q6HPRN, Starting on Sat04/25/23 at 1047, Until Discontinu ed, Routine, Agitation, Withdrawl [facility] foLIC acid (FOLATE) tablet 1 mg 04-25 15:00: 00 Yes 1mg 1 mg, Oral, DAILY, First dose on [place] 04/25/23 at 0900, Until Discontinu ed, Routine [facility] thiamine (VITAMIN B1) tablet 100 mg 04-25 15:00: 00 Yes 100mg 100 mg, Oral, DAILY, First dose on [place] 04/25/23 at 0900, Until Discontinu ed, Routine [facility] enoxaparin (LOVENOX) injection 40 mg 04-25 15:00: 00 Yes 40mg 40 mg, Subcutaneo us, DAILY, First dose on [place] 04/25/23 at 0900, Until Discontinu ed, Routine [facility] oxazepam (SERAX) capsule 15 mg 04-25 13:10: 47 Yes 15mg 15 mg, Oral, Q4HPRN, Starting on [place] 04/25/23 at 0710, Until Discontinu ed, Routine, Only while awake for DBP equal to or greater than 100, HR equal to or greater than 100. [facility] potassium chloride in water 10 mEq/100 mL RTU 10 mEq 04-25 13:00: 00 04-25 19:57 :00 No 10meq 10 mEq, IV Piggyback, Q1H, 6 doses, First dose on [place] 04/25/23 at 0700, Last dose on [place] 04/25/23 at 1200, Administer over 60 Minutes, [address] [facility] dexMEDEtomi dine 200 mcg in 0.9 [...] at maximum allowed dose, contact prescriber .
[facility] thiamine (VITAMIN B1) 100 mg, foLIC acid (FOLATE) 1 mg, multivitami n adult (INFUVITE ADULT) 3,300 unit- 150 mcg/10 mL 10 mL in D5W 0.45% NaCl (1/2NS) IV Solution 04-25 06:15: 00 04-25 06:51 :35 No IV Infusion, at 150 mL/hr, ONCE, 1 dose, On [place] 04/25/23 at 0015, 1,[address] [facility] NaCl 0.9% (NS) IV infusion 1,000 mL 04-25 05:30: 00 04-26 19:52 :00 No 1000mL at 125 mL/hr, IV Infusion, CONTINUOUS , Starting on Sat04/24/23 at 2330, Until Sat04/26/23 at 1352, Routine
Resume after banana bag is completed< br> [facility] NaCl 0.9% (NS) IV infusion 1,000 mL 04-25 03:45: 00 04-25 05:27 :44 No 1000mL at 125 mL/hr, IV Infusion, CONTINUOUS , Starting on Sat04/24/23 at 2145, Until Sat04/24/23 at 2327, Routine [facility] haloperidol lactate (HALDOL) injection 2 mg 04-25 03:42: 43 Yes 2mg 2 mg, Slow IV Push, Q6HPRN, Starting on Sat04/24/23 at 2142, Until Discontinu ed, Routine, Sedation, Psychosis [facility] ondansetron (ZOFRAN (PF)) injection 4 mg 04-25 03:41: 50 Yes 4mg 4 mg, Slow IV Push, Q4HPRN, Starting on Sat04/24/23 at 2141, Until Discontinu ed, Routine, Nausea and Vomiting (N/V) [facility] acetaminoph en (TYLENOL) tablet 650 mg 04-25 03:41: 07 Yes 650mg 650 mg, Oral, Q6HPRN, Starting on Sat04/24/23 at 2141, Until Discontinu ed, Routine, Pain (scale 1-3) [facility] cefTRIAXone (ROCEPHIN) 1,000 mg in NaCl 0.9% (NS) 100 mL MINI-BAG 04-25 02:45: 00 04-25 03:06 :00 No 1000mg 1,000 mg, IV Piggyback, ONCE, 1 dose, On Sat04/24/23 at 2045, Administer over 30 Minutes, 100 mL
Reas on for Anti-Infec tive: Documented Infection< br>Documen colleen Infection Site: Urine
D uration of Therapy: Other (see Comments) [facility] iopamidol (ISOVUE 370-500 mL) injection 85 mL 04-25 02:15: 00 04-25 02:15 :00 No 85mL 85 mL, Intravenou s, ONCE, 1 dose, On Sat04/24/23 at 2015, Routine [facility] NaCl 0.9% (NS) bolus infusion 1,000 mL 04-24 23:15: 00 04-25 02:47 :00 No 1000mL at 999 mL/hr, 1,000 mL, IV Infusion, ONCE, 1 dose, On Sat04/24/23 at 1715, STAT [facility] diazePAM (VALIUM) tablet 2.5 mg 04-24 23:15: 00 04-24 23:58 :00 No 2.5mg 2.5 mg, Oral, ONCE, 1 dose, On Sat04/24/23 at 1715, CECIL[facility] magnesium sulfate in water 2 gram/50 mL (4 %) infusion 2 g 04-24 23:00: 00 04-24 23:58 :00 No 2g 2 g, IV Piggyback, Administer over 60 Minutes, ONCE, 1 dose, On Sat04/24/23 at 1700, Routine [facility] thiamine (VITAMIN B1) injection 100 mg 04-24 22:15: 00 04-24 22:58 :00 No 100mg 100 mg, Slow IV Push, ONCE, 1 dose, On Sat04/24/23 at 1615, CECILIA [facility] Vyvanse 60 MG Vyvanse 60 MG 2022-04 [...] MG Vyvanse 60 MG Vyvanse 60 MG 2022-04-16 00:00: 00 No 1{capsu le_in_t he_morn ing} QD Vyvanse 60 MG Vyvanse 60 MG Vyvanse 60 MG 2022-0416 00:00: 00 No 1{capsu le_in_t he_morn ing} [...] 12-12 09:09: 49 Yes Take by mouth. [facility] lisdexamfet amine (VYVANSE) 60 mg capsule 12-12 09:09: 24 Yes 60mg Take 1 capsule by mouth every morning. [facility] oxazepam (SERAX) capsule 15 mg 11-14 08:09: 00 11-15 08:14 :00 No 15mg 15 mg, Oral, Q12H TAPER, 2 doses, First dose on Sat11/14/22 at 0315, Last dose on Sat11/14/22 at 1515, Routine [facility] lisdexamfet amine (VYVANSE) 60 mg capsule 11-13 18:24: 40 Yes 60mg Take 1 capsule by mouth every morning. [facility] potassium phosphate 15 mmol in NaCl 0.9% (NS) 150 mL piggyback 11-13 14:30: 00 11-13 19:51 :00 No 15mmol 15 mmol, IV Piggyback, ONCE, 1 dose, On Sat11/13/22 at 0930, [address] [facility] sennosides (SENOKOT) tablet 8.6 mg 11-12 14:00: 00 Yes 8.6mg 8.6 mg, Oral, DAILY, First dose on Sat11/12/22 at 0900, Until Discontinu ed, Routine [facility] D5W 0.45% NaCl (1/2NS) IV infusion 1,000 mL 11-12 13:30: 00 11-12 14:54 :49 No 1000mL at 100 mL/hr, 1,000 mL, IV Infusion, ONCE, 1 dose, On Sat11/12/22 at 0830, Routine [facility] acetaminoph en (TYLENOL) tablet 500 mg 11-12 03:43: 02 Yes 500mg 500 mg, Oral, Q6HPRN, Starting on Sat11/11/22 at 2243, Until Discontinu ed, Routine, Pain (scale 1-3) [facility] oxazepam (SERAX) capsule 15 mg 11-12 02:09: 00 Yes 15mg 15 mg, Oral, Q4HPRN, Starting on Sat11/11/22 at 2109, Until Discontinu ed, Routine, Only while awake for DBP equal to or greater than 100, HR equal to or greater than 100. [facility] D5W 0.9% NaCl (NS) 1 L + KCL 20 mEq 11-11 19:15: 00 11-12 12:42 :08 No IV Infusion, at 100 mL/hr, CONTINUOUS , Starting on Sat11/11/22 at 1415, Until 11/12/22 at 0742, [facility] 15 mL 11-11 18:15: 00 Yes 15mL 15 mL, Oral, DAILY, First dose on Sat11/11/22 at 1315, Until Discontinu ed, Routine [facility] potassium chloride in water (KCL) 20 mEq/100 mL RTU IVPB 20 mEq 11-11 10:45: 00 11-11 16:30 :00 No 20meq 20 mEq, IV Infusion, Q2H ES, 2 doses, First dose on Sat11/11/22 at 0545, Last dose on Sat11/11/22 at 0745, 100 mL [facility] glucagon (GLUCAGEN DIAGNOSTIC KIT) injection 1 mg 11-11 10:16: 15 Yes 1mg 1 mg, Intramuscu lar, PRN, Starting on Sat11/11/22 at 0516, Until Discontinu ed, CECILIA, Blood Glucose < or = 70 mg/dL and patient is NPO, unable to swallow or has mental changes. [facility] dextrose 50 % in water (D50W) injection 25 mL 11-11 10:16: 15 Yes 25mL 25 mL, Slow IV Push, PRN, Starting on Sat11/11/22 at 0516, Until Discontinu ed, CECILIA, Blood Glucose < or = 70 mg/dL and patient is NPO, unable to swallow or has mental status changes. [facility] NaCl 0.9% (NS) IV infusion 1,000 mL 11-11 01:30: 00 11-11 17:57 :28 No 1000mL at 100 mL/hr, IV Infusion, CONTINUOUS , Starting on Sat11/10/22 at 2030, Until Sat11/11/22 at 1257, Routine [facility] heparin (porcine) injection 5,000 Units 11-11 01:00: 00 Yes 5000U 5,000 Units, Subcutaneo us, Q12H, First dose on Sat11/10/22 at 2000, Until Discontinu ed, Routine [facility] magnesium sulfate in water 2 gram/50 mL (4 %) infusion 2 g 11-11 00:45: 00 11-11 04:01 :00 No 2g 2 g, IV Piggyback, Administer over 60 Minutes, ONCE, 1 dose, On 11/10/22 at 1945, Routine [facility] dexMEDEtomi dine 200 mcg in 0.9 % NaCl 50 mL (PRECEDEX) RTU IV infusion 11-11 00:42: 42 11-12 02:16 :46 No .2ug/kg /h 0.2-1.5 mcg/kg/hr ?49 kg (2.45-18.3 75 mL/hr, rounded to 2.45-18.38 mL/hr), IV Infusion, TITRATE, Sedation-R ASS score (0 to -1), Starting on 11/10/22 at 194
In itiate infusion at 0.2 mcg/kg/hr and titrate by 0.1 mcg/kg/hr every 30 minutes to goal sedation score. Maximum dose = 1.5 mcg/kg/hr. If goal not maintained at maximum allowed dose, contact prescriber .
[facility] foLIC acid (FOLATE) injection 1 mg 11-11 00:00: 00 Yes 1mg 1 mg, Intramuscu lar, DAILY, First dose on 11/10/22 at 1900, Until Discontinu ed, Routine [facility] thiamine (VITAMIN B1) 100 mg in NaCl 0.9% (NS) piggyback 11-11 00:00: 00 11-15 13:59 :00 No 100mg IV Piggyback, DAILY, 5 doses, First dose on 11/10/22 at 1900, Last dose on Sat11/14/22 at 0900, 50 mL [facility] LORazepam (ATIVAN) injection 1 mg 11-10 23:43: 00 11-12 02:09 :22 No 1mg 1 mg, Slow IV Push, TIDPRN, Starting on 11/10/22 at 1843, Until 11/11/22 at 2109, Routine, Seizures [facility] diazePAM (VALIUM) injection 10 mg 11-10 23:15: 00 11-10 23:17 :00 No 10mg 10 mg, Slow IV Push, ONCE, 1 dose, On 11/10/22 at 1815, STAT [facility] proMETHazin e (PHENERGAN) 25 mg in NaCl 0.9% (NS) 50 mL piggyback 11-10 23:15: 00 11-10 23:19 :00 No 25mg 25 mg, IV Piggyback, ONCE, 1 dose, On 11/10/22 at 1815, [address] [facility] LORazepam (ATIVAN) injection 2 mg 11-10 23:00: 00 11-10 23:10 :00 No 2mg 2 mg, Slow IV Push, ONCE, 1 dose, On 11/10/22 at 1800, STAT [facility] LORazepam (ATIVAN) injection 1 mg 11-10 22:15: 00 11-10 22:26 :00 No 1mg 1 mg, Slow IV Push, ONCE, 1 dose, On 11/10/22 at 1715, STAT [facility] lisinopriL 2.5 mg tablet 11-08 00:00: 00 12-09 04:59 :00 No [id number] 2.5mg Take 1 tablet by mouth in the morning for [address] [facility] magnesium sulfate in water 2 gram/50 mL (4 %) infusion 2 g 11-07 15:00: 00 11-07 15:40 :00 No 2g 2 g, IV Piggyback, Administer over 60 Minutes, ONCE, 1 dose, On Sat11/07/22 at 1000, Routine [facility] lisdexamfet amine (VYVANSE) 60 mg capsule 11-07 14:54: 12 Yes 60mg Take 1 capsule by mouth every morning. [facility] lisinopriL (PRINIVIL,Z ESTRIL) tablet 2.5 mg 11-07 14:15: 00 Yes 2.5mg 2.5 mg, Oral, DAILY, First dose on Sat11/07/22 at 0915, Until Discontinu ed, Routine [facility] enoxaparin (LOVENOX) injection 40 mg 11-06 22:00: 00 Yes 40mg 40 mg, Subcutaneo us, DAILY, First dose on Sat11/06/22 at 1700, Until Discontinu ed, Routine [facility] pantoprazol e (PROTONIX) EC tablet 40 mg 11-06 14:00: 00 Yes 40mg 40 mg, Oral, DAILY, First dose on Sat11/06/22 at 0900, Until Discontinu ed, Routine [facility] metoprolol succinate XL (TOPROL XL) tablet 25 mg 11-06 14:00: 00 Yes 25mg 25 mg, Oral, DAILY, First dose on Sat11/06/22 at 0900, Until Discontinu ed, Routine [facility] docusate (COLACE) capsule 100 mg 11-06 13:00: 00 Yes 100mg 100 mg, Oral, BID, First dose on Sat11/06/22 at 0800, Until Discontinu ed, Routine [facility] D5W 0.9% NaCl (NS) IV infusion 1,000 mL 11-06 12:15: 00 11-08 12:14 :00 No 1000mL at 200 mL/hr, 1,000 mL, IV Infusion, CONTINUOUS , Starting on Sat11/06/22 at 0715, Until Sat11/08/22 at 0714, CECILIA [facility] D5W 0.9% NaCl (NS) IV infusion 1,000 mL 11-06 11:30: 00 11-06 12:13 :19 No 1000mL at 200 mL/hr, 1,000 mL, IV Infusion, CONTINUOUS , Starting on Sat11/06/22 at 0630, Until Sat11/06/22 at 0713, [facility] ondansetron (ZOFRAN (PF)) injection 4 mg 11-06 10:31: 07 Yes 4mg 4 mg, Slow IV Push, Q6HPRN, Starting on Sat11/06/22 at 0531, Until Discontinu ed, Routine, Nausea and Vomiting (N/V) [facility] bisacodyL (DULCOLAX) tablet 10 mg 11-06 10:31: 02 Yes 10mg 10 mg, Oral, QDAILYPRN, Starting on Sat11/06/22 at 0531, Until Discontinu ed, Routine, Constipati on [facility] FENTanyl PF (SUBLIMAZE (PF)) injection 25 mcg 11-06 10:30: 33 11-07 10:29 :33 No 25ug 25 mcg, Slow IV Push, Q4HPRN, Starting on Sat11/06/22 at 0530, Until Sat11/07/22 at 0529, Routine, Pain (scale 7-10) [facility] acetaminoph en (TYLENOL) tablet 650 mg 11-06 10:29: 53 Yes 650mg 650 mg, Oral, Q6HPRN, Starting on Sat11/06/22 at 0529, Until Discontinu ed, Routine, Pain (scale 1-3) [facility] foLIC acid (FOLATE) 5 mg in NaCl 0.9% (NS) piggyback 11-06 10:15: 00 11-06 10:35 :00 No 5mg IV Piggyback, ONCE NOW, 1 dose, On Sat11/06/22 at 0515, [address] [facility] thiamine (VITAMIN B1) 100 mg in NaCl 0.9% (NS) piggyback 11-06 10:15: 00 11-06 10:45 :00 No 100mg IV Piggyback, ONCE NOW, 1 dose, On Sat11/06/22 at 0515, [address] [facility] NaCl 0.9% (NS) bolus infusion 1,000 mL 11-06 09:00: 00 11-06 09:11 :00 No 1000mL at 999 mL/hr, 1,000 mL, IV Piggyback, ONCE, 1 dose, On Sat11/06/22 at 0400, STAT [facility] morpHINE (4 mg/mL) injection 4 mg 11-06 09:00: 00 11-06 08:54 :00 No 4mg 4 mg, Slow IV Push, ONCE, 1 dose, On Sat11/06/22 at 0400, STAT [facility] iopamidol (ISOVUE 370-500 mL) injection 70 mL 11-06 07:45: 00 11-06 06:58 :00 No [id number] 70mL 70 mL, Intravenou s, ONCE, 1 dose, On Sat11/06/22 at 0245, Routine [facility] ketorolac (TORADOL) injection 30 mg 11-06 07:30: 00 11-06 06:33 :00 No 30mg 30 mg, Slow IV Push, ONCE, 1 dose, On Sat11/06/22 at 0230, Routine [facility] NaCl 0.9% (NS) bolus infusion 1,000 mL 11-06 07:15: 00 11-06 08:11 :00 No 1000mL at 999 mL/hr, 1,000 mL, IV Infusion, ONCE, 1 dose, On Sat11/06/22 at 0215, CEC[facility] FENTanyl PF (SUBLIMAZE (PF)) injection 50 mcg 11-06 07:15: 00 11-06 06:34 :00 No 50ug 50 mcg, Slow IV Push, ONCE, 1 dose, On Sat11/06/22 at 0215, Routine [facility] ondansetron (ZOFRAN (PF)) injection 4 mg 11-06 06:30: 00 11-06 06:34 :00 No 4mg 4 mg, Slow IV Push, ONCE, 1 dose, On Sat11/06/22 at 0130, CCEILIA [facility] albuterol 90 mcg/actuati on inhaler 11-06 01:23: 41 11-06 00:00 :00 No 2{puff} Inhale 2 Puffs every 6 (six) hours as needed for Wheezing or Shortness of Breath. [facility] ibuprofen 600 mg tablet 11-06 01:23: 41 11-06 00:00 :00 No 600mg Take 600 mg by mouth in the morning. [facility] lisdexamfet amine (VYVANSE) 60 mg capsule 10-30 00:00: 00 11-06 00:00 :00 No 1 capsule in the morning Orally Once a day for [address] [facility] doxycycline hyclate (Vibramycin ) capsule 100 mg 08-28 03:30: 00 08-28 03:50 :00 No 100mg 100 mg, Oral, ONCE, 1 dose, On Sat08/27/22 at 2230, CECILIA
Re ason for Anti-Infec tive: Documented Infection< br>Documen colleen Infection Site: Skin / Soft Tissue
Duration of Therapy: [address] [facility] cephALEXin (KEFLEX) capsule 500 mg 08-28 03:30: 00 08-28 03:50 :00 No 500mg 500 mg, Oral, ONCE, 1 dose, On Sat08/27/22 at 2230, CECILIA
Re ason for Anti-Infec tive: Empiric Therapy for Suspected Infection< br>Empiric Therapy Site: Skin / Soft tissue
Duration of therapy: [address] [facility] lisdexamfet amine (VYVANSE) 60 mg capsule 08-27 22:56: 45 Yes 60mg Take 1 capsule by mouth every morning. [facility] pantoprazol e 40 mg EC tablet 08-27 20:42: 39 08-27 00:00 :00 No 40mg Take 40 mg by mouth in the morning. [facility] lisdexamfet amine 50 mg capsule 08-27 20:42: 27 08-27 00:00 :00 No 50mg Take 50 mg by mouth every morning. [facility] doxycycline hyclate 100 mg capsule 08-27 00:00: 00 Yes [id number] 100mg Take 1 capsule by mouth in the morning and 1 capsule in the evening. [facility] cephALEXin (KEFLEX) 500 mg capsule 2022-0 08 00:00: 00 09-04 04:59 :00 No [id number] 500mg Take 1 capsule by mouth in the morning and 1 capsule at noon and 1 capsule in the evening. Do all this for [address] [facility] cefTRIAXone Sodium cefTRIAXone Sodium 2022-0 2-10 00:00: 00 No 1g [facility] cefTRIAXone Sodium cefTRIAXone Sodium 3-0 2-10 00:00: 00 No 1g [facility] cefTRIAXone Sodium cefTRIAXone Sodium 3-0 2-10 00:00: 00 No 1g [facility] cefTRIAXone Sodium cefTRIAXone Sodium 3-0 2-10 00:00: 00 No 1g [facility] cefTRIAXone Sodium cefTRIAXone Sodium 3-0 2-10 00:00: 00 No 1g [facility] cefTRIAXone Sodium cefTRIAXone Sodium 3-0 2-10 00:00: 00 No 1g [facility] cefTRIAXone Sodium cefTRIAXone Sodium 3-0 2-10 00:00: 00 No 1g [facility] cefTRIAXone Sodium cefTRIAXone Sodium 3-0 2-10 00:00: 00 No 1g [facility] cefTRIAXone Sodium cefTRIAXone Sodium 3-0 2-10 00:00: 00 No 1g [facility] cefTRIAXone Sodium cefTRIAXone Sodium 3-0 2-10 00:00: 00 No 1g [facility] cefTRIAXone Sodium cefTRIAXone Sodium 3-0 2-10 00:00: 00 No 1g [facility] cefTRIAXone Sodium cefTRIAXone Sodium 3-0 2-10 00:00: 00 No 1g [facility] cefTRIAXone Sodium cefTRIAXone Sodium 3-0 2-10 00:00: 00 No 1g [facility] cefTRIAXone Sodium cefTRIAXone Sodium 3-0 2-10 00:00: 00 No 1g [facility] cefTRIAXone Sodium cefTRIAXone Sodium 3-0 2-10 00:00: 00 No 1g [facility] cefTRIAXone Sodium cefTRIAXone Sodium 2- 00:00: 00 No 1g [facility] cefTRIAXone Sodium cefTRIAXone Sodium 2- 00:00: 00 No 1g [facility] cefTRIAXone Sodium cefTRIAXone Sodium 2- 00:00: 00 No 1g [facility] Vyvanse 60 MG Vyvanse 60 MG - 00:00: 00 No 1{capsu le_in_t he_morn ing} QD Vyvanse 60 MG iopamidol (ISOVUE 370-500 mL) injection 80 mL 2021-04 01:00: 00 04-13 00:03 :00 No [id number] 80mL 80 mL, Intravenou s, ONCE, 1 dose, On [place] 04/12/22 at 1900, Routine [facility] NaCl 0.9% (NS) bolus infusion 500 mL 2021-04 23:30: 00 04-12 23:47 :00 No 500mL at 999 mL/hr, 500 mL, IV Infusion, ONCE, 1 dose, On [place] 04/12/22 at 1730, CECIL[facility] morpHINE (4 mg/mL) injection 4 mg 2021-04 22:45: 00 04-12 23:03 :00 No 4mg 4 mg, Slow IV Push, ONCE, 1 dose, On [place] 04/12/22 at 1645, STAT [facility] ampicillin- sulbactam (UNASYN) 3 g in NaCl 0.9% (NS) 100 mL MINI-BAG 2021-04 22:45: 00 04-12 23:34 :00 No 3g 3 g, IV Piggyback, ONCE, 1 dose, On [place] 04/12/22 at 1645, Administer over 30 Minutes, 100 mL
Reas on for Anti-Infec tive: Documented Infection< br>Documen colleen Infection Site: HEENT
D uration of Therapy: [address] [facility] HYDROcodone -acetaminop hen 5-325 mg tablet 2021-04 00:00: 00 04-20 05:59 :00 No [id number] 1{tbl} Take 1 tablet by mouth every 6 (six) hours as needed for Pain (scale 7-10) for up to 7 days. Indication s: acute pain [facility] dexamethaso ne sod phos PF injection 10 mg 2021-04 06:30: 00 04-09 06:32 :00 No 10mg 10 mg, Oral, ONCE, 1 dose, On Sat04/09/22 at 0030, [address] [facility] Vyvanse 60 MG Vyvanse 60 MG 2021-04 00:00: 00 No 1{capsu le_in_t he_morn ing} QD Vyvanse 60 MG Vyvanse 60 MG Vyvanse 60 MG 2021-04 00:00: 00 No 1{capsu le_in_t he_morn ing} QD Vyvanse 60 MG Vyvanse 60 MG Vyvanse 60 MG 2021-04 00:00: 00 No 1{capsu le_in_t he_morn ing} QD Vyvanse 60 MG Vyvanse 60 MG Vyvanse 60 MG 2021-04- 00:00: 00 No 1{capsu le_in_t he_morn ing} QD Vyvanse 60 MG Vyvanse 60 MG Vyvanse 60 MG 2021-04 00:00: 00 No 1{capsu le_in_t he_morn ing} QD Vyvanse 60 MG Vyvanse 60 MG Vyvanse 60 MG 2021-04 0 00:00: 00 No 1{capsu le_in_t he_morn ing} QD Vyvanse 60 MG Vyvanse 60 MG Vyvanse 60 MG 01-02 00:00: 00 No 1{capsu le_in_t he_morn ing} QD Vyvanse 60 MG lisdexamfet amine 50 mg capsule 11-13 15:00: 18 Yes 50mg Take 50 mg by mouth every morning. [facility] pantoprazol e 40 mg EC tablet 11-13 15:00: 18 Yes 40mg Take 40 mg by mouth in the morning. [facility] ibuprofen 600 mg tablet 11-13 15:00: 18 Yes 600mg Take 600 mg by mouth in the morning. [facility] aspirin 325 mg tablet 11-13 00:00: 00 12-12 04:59 :00 No [id number] 325mg Take 1 tablet by mouth in the morning and 1 tablet in the evening. Take with meals. Do all this for [address] [facility] Medrol 4 MG Medrol 4 MG 10-17 00:00: 00 10-23 00:00 :00 No Medrol 4 MG Vyvanse 60 MG Vyvanse 60 MG 5-10 00:00: 00 No 1{capsu le_in_t he_morn ing} QD Vyvanse 60 MG Vyvanse 60 MG Vyvanse 60 MG 4-11 00:00: 00 No 1{capsu le_in_t he_morn ing} QD Vyvanse 60 MG valACYclovi r HCl 1 GM valACYclovi r HCl 1 GM 3 00:00: 00 09-11 00:00 :00 No 1{table t} QD valACYclov ir HCl 1 GM Vyvanse 60 MG Vyvanse 60 MG 3- 00:00: 00 No 1{capsu le_in_t he_morn ing} QD Vyvanse 60 MG Vyvanse 60 MG Vyvanse 60 MG 2- 00:00: 00 No 1{capsu le_in_t he_morn ing} QD Vyvanse 60 MG Vyvanse 60 MG Vyvanse 60 MG 2020-04 2 00:00: 00 No 1{capsu le_in_t he_morn ing} QD Vyvanse 60 MG Vyvanse 60 MG Vyvanse 60 MG 2020-04 0-24 00:00: 00 No 1{capsu le_in_t he_morn ing} QD Vyvanse 60 MG Vyvanse 60 MG Vyvanse 60 MG 924 00:00: 00 No 1{trinau le_in_t he_morn ing} QD Vyvanse 60 MG Nystatin [id number] UNIT/ML Nystatin [id number] UNIT/ML 920 00:00: 00 01-23 00:00 :00 No QID Nystatin [id number] UNIT/ML Vitamin B12 (Cyanocobal patel) Vitamin B12 (Cyanocobal patel) 2019-0 9-28 00:00: 00 No 1000ug [facility] Vitamin B12 (Cyanocobal patel) Vitamin B12 (Cyanocobal patel) 2019-0 01-17 00:00: 00 No 1000ug [facility] Vitamin B12 (Cyanocobal patel) Vitamin B12 (Cyanocobal patel) 2019-0 01-17 00:00: 00 No 1000ug [facility] Vitamin B12 (Cyanocobal patel) Vitamin B12 (Cyanocobal patel) 2019-0 01-17 00:00: 00 No 1000ug [facility] Vitamin B12 (Cyanocobal patel) Vitamin B12 (Cyanocobal patel) 2019-0 9- 00:00: 00 No 1000ug [facility] Vitamin B12 (Cyanocobal patel) Vitamin B12 (Cyanocobal patel) 2019-0 9-28 00:00: 00 No 1000ug [facility] Vitamin B12 (Cyanocobal patel) Vitamin B12 (Cyanocobal patel) 2019-0 - 00:00: 00 No 1000ug [facility] Vitamin B12 (Cyanocobal patel) Vitamin B12 (Cyanocobal patel) 2019-0 9-28 00:00: 00 No 1000ug [facility] Vitamin B12 (Cyanocobal patel) Vitamin B12 (Cyanocobal patel) 0 -28 00:00: 00 No 1000ug [facility] Vitamin B12 (Cyanocobal patel) Vitamin B12 (Cyanocobal patel) 2019-0 9-28 00:00: 00 No 1000ug [facility] Vitamin B12 (Cyanocobal patel) Vitamin B12 (Cyanocobal patel) 2020-0 9-28 00:00: 00 No 1000ug [facility] Vitamin B12 (Cyanocobal patel) Vitamin B12 (Cyanocobal patel) 2020-0 9-28 00:00: 00 No 1000ug [facility] Vitamin B12 (Cyanocobal patel) Vitamin B12 (Cyanocobal patel) 2020-0 928 00:00: 00 No 1000ug [facility] Vitamin B12 (Cyanocobal patel) Vitamin B12 (Cyanocobal patel) 2020-0 9 00:00: 00 No 1000ug [facility] Vitamin B12 (Cyanocobal patel) Vitamin B12 (Cyanocobal patel) 2019-0 9 00:00: 00 No 1000ug [facility] Vitamin B12 (Cyanocobal patel) Vitamin B12 (Cyanocobal patel) 2019-0 9 00:00: 00 No 1000ug [facility] Vitamin B12 (Cyanocobal patel) Vitamin B12 (Cyanocobal patel) 2019-0 9 00:00: 00 No 1000ug [facility] Vitamin B12 (Cyanocobal patel) Vitamin B12 (Cyanocobal patel) 2019-0 9- 00:00: 00 No 1000ug [facility] Vitamin B12 (Cyanocobal patel) Vitamin B12 (Cyanocobal patel) 2019-0 928 00:00: 00 No 1000ug [facility] Vitamin B12 (Cyanocobal patel) Vitamin B12 (Cyanocobal patel) 2020-0 9-28 00:00: 00 No 1000ug [facility] Vitamin B12 (Cyanocobal patel) Vitamin B12 (Cyanocobal patel) 2020-0 9-28 00:00: 00 No 1000ug [facility] Vitamin B12 (Cyanocobal patel) Vitamin B12 (Cyanocobal patel) 2019-0 9-28 00:00: 00 No 1000ug [facility] Vitamin B12 (Cyanocobal patel) Vitamin B12 (Cyanocobal patel) 2020-0 9-28 00:00: 00 No 1000ug [facility] Vitamin B12 (Cyanocobal patel) Vitamin B12 (Cyanocobal patel) 2019-0 9 00:00: 00 No 1000ug [facility] Medrol Medrol 2019-0 8-18 00:00: 00 12-13 00:00 :00 No Leander Shepard as directed [facility] Solumedrol 125mg/2ml Solumedrol 125mg/2ml 2019-0 8-17 00:00: 00 No 42mg [facility] Solumedrol 125mg/2ml Solumedrol 125mg/2ml 2019-0 8-17 00:00: 00 No 42mg [facility] Solumedrol 125mg/2ml Solumedrol 125mg/2ml 0 8-17 00:00: 00 No 42mg [facility] Solumedrol 125mg/2ml Solumedrol 125mg/2ml 2019-0 8-17 00:00: 00 No 42mg [facility] Solumedrol 125mg/2ml Solumedrol 125mg/2ml 0 8-17 00:00: 00 No 42mg [facility] Solumedrol 125mg/2ml Solumedrol 125mg/2ml 0 8-17 00:00: 00 No 42mg [facility] Solumedrol 125mg/2ml Solumedrol 125mg/2ml 2019-0 8-17 00:00: 00 No 42mg [facility] Solumedrol 125mg/2ml Solumedrol 125mg/2ml 2019-0 8-17 00:00: 00 No 42mg [facility] Solumedrol 125mg/2ml Solumedrol 125mg/2ml 2019-0 8-17 00:00: 00 No 42mg [facility] Solumedrol 125mg/2ml Solumedrol 125mg/2ml 2019-0 8-17 00:00: 00 No 42mg [facility] Solumedrol 125mg/2ml Solumedrol 125mg/2ml 2020-0 8-17 00:00: 00 No 42mg [facility] Solumedrol 125mg/2ml Solumedrol 125mg/2ml 2020-0 8-17 00:00: 00 No 42mg [facility] Solumedrol 125mg/2ml Solumedrol 125mg/2ml 2019-0 8-17 00:00: 00 No 42mg [facility] Solumedrol 125mg/2ml Solumedrol 125mg/2ml 2019-0 8-17 00:00: 00 No 42mg [facility] Solumedrol 125mg/2ml Solumedrol 125mg/2ml 2019-0 8-17 00:00: 00 No 42mg [facility] Solumedrol 125mg/2ml Solumedrol 125mg/2ml 2019-0 8-17 00:00: 00 No 42mg [facility] Solumedrol 125mg/2ml Solumedrol 125mg/2ml 2019-0 8-17 00:00: 00 No 42mg [facility] Solumedrol 125mg/2ml Solumedrol 125mg/2ml 2019-0 8-17 00:00: 00 No 42mg [facility] Solumedrol 125mg/2ml Solumedrol 125mg/2ml 2019-0 8-17 00:00: 00 No [facility] Solumedrol 125mg/2ml Solumedrol 125mg/2ml 2019-0 8-17 00:00: 00 No 42mg [facility] Solumedrol 125mg/2ml Solumedrol 125mg/2ml 2019-0 8-17 00:00: 00 No 42mg [facility] Solumedrol 125mg/2ml Solumedrol 125mg/2ml 2019-0 8-17 00:00: 00 No 42mg [facility] Solumedrol 125mg/2ml Solumedrol 125mg/2ml 0 12-06 00:00: 00 No 42[facility] Solumedrol 125mg/2ml Solumedrol 125mg/2ml 12-06 00:00: 00 No 42mg [facility] metoprolol succinate XL 25 mg 24 hr tablet 11-05 00:00: 00 Yes [id number] 25mg Take 1 tablet by mouth daily. [facility] Kenalog (Triamcinol one) Kenalog (Triamcinol one) 08-14 00:00: 00 No 40mg [facility] [facility] Kenalog (Triamcinol one) Kenalog (Triamcinol one) 08-14 00:00: 00 No 40mg [facility] Kenalog (Triamcinol one) Kenalog (Triamcinol one) 08-14 00:00: 00 No 40mg [facility] Kenalog (Triamcinol one) Kenalog (Triamcinol one) 08-14 00:00: 00 No 40mg [facility] Kenalog (Triamcinol one) Kenalog (Triamcinol one) 0 08-14 00:00: 00 No 40mg [facility] Kenalog (Triamcinol one) Kenalog (Triamcinol one) 0 08-14 00:00: 00 No 40mg [facility] Kenalog (Triamcinol one) Kenalog (Triamcinol one) 0 08-14 00:00: 00 No 40mg [facility] Kenalog (Triamcinol one) Kenalog (Triamcinol one) 0 08-14 00:00: 00 No 40mg [facility] Kenalog (Triamcinol one) Kenalog (Triamcinol one) 0 08-14 00:00: 00 No 40mg [facility] Kenalog (Triamcinol one) Kenalog (Triamcinol one) 0 08-14 00:00: 00 No 40mg [facility] Kenalog (Triamcinol one) Kenalog (Triamcinol one) [id number] 08-14 00:00: 00 No 40mg [facility] Kenalog (Triamcinol one) Kenalog (Triamcinol one) 20190 08-14 00:00: 00 No 40mg [facility] Kenalog (Triamcinol one) Kenalog (Triamcinol one) 20190 08-14 00:00: 00 No 40[facility] Kenalog (Triamcinol one) Kenalog (Triamcinol one) 0 08-14 00:00: 00 No 40[facility] Kenalog (Triamcinol one) Kenalog (Triamcinol one) 0 08-14 00:00: 00 No 40[facility] Kenalog (Triamcinol one) Kenalog (Triamcinol one) 20190 08-14 00:00: 00 No 40[facility] Kenalog (Triamcinol one) Kenalog (Triamcinol one) 0 08-14 00:00: 00 No 40[facility] Kenalog (Triamcinol one) Kenalog (Triamcinol one) 20190 08-14 00:00: 00 No 40mg [facility] Kenalog (Triamcinol one) Kenalog (Triamcinol one) 20190 08-14 00:00: 00 No 40mg [facility] Kenalog (Triamcinol one) Kenalog (Triamcinol one) 20190 08-14 00:00: 00 No 40mg [facility] Kenalog (Triamcinol one) Kenalog (Triamcinol one) 20190 08-14 00:00: 00 No 40mg [facility] Kenalog (Triamcinol one) Kenalog (Triamcinol one) 20190 08-14 00:00: 00 No 40mg [facility] Kenalog (Triamcinol one) Kenalog (Triamcinol one) 08-14 00:00: 00 No 40[facility] Kenalog (Triamcinol one) Kenalog (Triamcinol one) 08-14 00:00: 00 No 40mg [facility] Pantoprazol e Sodium 40 MG [...] cted_ar ea} TID Proctofoam HC 1-1 % Toprol XL 25 MG Toprol XL 25 [...] cted_ar ea} TID Proctofoam HC 1-1 % Toprol XL 25 MG Toprol XL 25 [...] cted_ar ea} TID Proctofoam HC 1-1 % Toprol XL 25 MG Toprol XL 25 [...] Comments Source TD Pres-Free 2023-10-18 00:00:00 Completed [facility] TD Pres-Free 2023-10-18 00:00:00 Completed [facility] TD Pres-Free 2023-10-18 00:00:00 Completed [facility] Influenza High Dose 2022-02-11 00:00:00 Completed [facility] Influenza High Dose 2022-02-11 00:00:00 Completed [facility] Influenza High Dose 2022-02-11 00:00:00 Completed [facility] Influenza High Dose 2022-02-11 00:00:00 Completed [facility] Influenza High Dose 2022-02-11 00:00:00 Completed [facility] Influenza High Dose 2022-02-11 00:00:00 Completed [facility] Influenza, High-Dose, Trivalent, PF (FLUZONE) 2022-02-11 00:00:00 Completed [facility] Influenza, High-Dose, Trivalent, PF (FLUZONE) 2022-02-11 00:00:00 Completed [facility] Influenza, High-Dose, Trivalent, PF (FLUZONE) 2022-02-11 00:00:00 Completed [facility] HPV9 2021-08-14 00:00:00 Completed [facility] HPV9 2021-08-14 00:00:00 Completed [facility] HPV9 2021-08-14 00:00:00 Completed [facility] HPV9 2021-08-14 00:00:00 Completed [facility] HPV9 2021-08-14 00:00:00 Completed [facility] HPV9 2021-08-14 00:00:00 Completed [facility] HPV9 2021-08-14 00:00:00 Completed [facility] HPV9 2021-08-14 00:00:00 Completed [facility] HPV9 2021-08-14 00:00:00 Completed [facility] HPV9 2021-08-14 00:00:00 Completed [facility] HPV9 2021-08-14 00:00:00 Completed [facility] HPV9 2021-08-14 00:00:00 Completed [facility] HPV9 2021-08-14 00:00:00 Completed HPV9 2021-08-14 00:00:00 Completed HPV9 2021-08-14 00:00:00 Completed HPV9 2021-07-13 00:00:00 Completed [facility] HPV9 2021-07-13 00:00:00 Completed [facility] HPV9 2021-07-13 00:00:00 Completed [facility] HPV9 2021-07-13 00:00:00 Completed [facility] HPV9 2021-07-13 00:00:00 Completed [facility] HPV9 2021-07-13 00:00:00 Completed [facility] HPV9 2021-07-13 00:00:00 Completed [facility] HPV9 2021-07-13 00:00:00 Completed [facility] HPV9 2021-07-13 00:00:00 Completed [facility] HPV9 2021-07-13 00:00:00 Completed [facility] HPV9 2021-07-13 00:00:00 Completed [facility] HPV9 2021-07-13 00:00:00 Completed [facility] HPV9 2021-07-13 00:00:00 Completed [facility] HPV9 2021-07-13 00:00:00 Completed [facility] HPV9 2021-07-13 00:00:00 Completed [facility] Influenza Virus Vaccine Quad IM, Preserv and ABX Free 6 MO-64 YRS 2021-03-07 00:00:00 Completed [facility] Influenza Virus Vaccine Quad IM, Preserv and ABX Free 6 MO-64 YRS 2021-03-07 00:00:00 Completed [facility] Influenza Virus Vaccine Quad IM, Preserv and ABX Free 6 MO-64 YRS 2021-03-07 00:00:00 Completed [facility] Influenza Virus Vaccine Quad IM, Preserv and ABX Free 6 MO-64 YRS 2021-03-07 00:00:00 Completed [facility] Influenza Virus Vaccine Quad IM, Preserv and ABX Free 6 MO-64 YRS 2021-03-07 00:00:00 Completed [facility] Influenza Virus Vaccine Quad IM, Preserv and ABX Free 6 MO-64 YRS 2021-03-07 00:00:00 Completed [facility] Influenza Virus Vaccine Quad IM, Preserv and ABX Free 6 MO-64 YRS 2021-03-07 00:00:00 Completed [facility] Influenza Virus Vaccine Quad IM, Preserv and ABX Free 6 MO-64 YRS 2021-03-07 00:00:00 Completed [facility] Influenza Virus Vaccine Quad IM, Preserv and ABX Free 6 MO-64 YRS 2021-03-07 00:00:00 Completed [facility] Influenza Virus Vaccine Quad IM, Preserv and ABX Free 6 MO-64 YRS 2021-03-07 00:00:00 Completed [facility] Influenza Virus Vaccine Quad IM, Preserv and ABX Free 6 MO-64 YRS 2021-03-07 00:00:00 Completed [facility] Influenza Virus Vaccine Quad IM, Preserv and ABX Free 6 MO-64 YRS 2021-03-07 00:00:00 Completed [facility] Influenza Virus Vaccine Quad IM, Preserv and ABX Free 6 MO-64 YRS (FLUCELVAX) 2021-03-07 00:00:00 Completed [facility] Influenza Virus Vaccine Quad IM, Preserv and ABX Free 6 MO-64 YRS (FLUCELVAX) 2021-03-07 00:00:00 Completed [facility] Influenza Virus Vaccine Quad IM, Preserv and ABX Free 6 MO-64 YRS (FLUCELVAX) 2021-03-07 00:00:00 Completed [facility] Vitamin B12 (Cyanocobalamin) Vitamin B12 (Cyanocobalamin) 2020-01-18 16:50:00 Completed [facility] Solumedrol 125mg/2ml Solumedrol 125mg/2ml 2019-12-07 14:03:00 Completed [facility] 2018-12-24 10:23:00 Completed [facility] 2018-12-24 10:23:00 Completed [facility] 2018-12-24 10:23:00 Completed [facility] 2018-12-24 10:23:00 Completed [facility] 2018-12-24 10:23:00 Completed [facility] 2018-12-24 10:23:00 Completed [facility] 2018-12-24 10:23:00 Completed [facility] 2018-12-24 00:00:00 Completed [facility] Kenalog (Triamcinolone) Kenalog (Triamcinolone) 2018-08-14 09:05:00 Completed [facility] Influenza Virus Vaccine Quad ID 18-64 YRS 2017-01-18 00:00:00 Completed [facility] Influenza Virus Vaccine Quad ID 18-64 YRS 2017-01-18 00:00:00 Completed [facility] Influenza Virus Vaccine Quad ID 18-64 YRS 2017-01-18 00:00:00 Completed [facility] Influenza Virus Vaccine Quad ID 18-64 YRS 2017-01-18 00:00:00 Completed [facility] Influenza Virus Vaccine Quad ID 18-64 YRS 2017-01-18 00:00:00 Completed [facility] Influenza Virus Vaccine Quad ID 18-64 YRS 2017-01-18 00:00:00 Completed [facility] Influenza Virus Vaccine Quad ID 18-64 YRS 2017-01-18 00:00:00 Completed [facility] Influenza Virus Vaccine Quad ID 18-64 YRS 2017-01-18 00:00:00 Completed [facility] Influenza Virus Vaccine Quad ID 18-64 YRS 2017-01-18 00:00:00 Completed [facility] Influenza Virus Vaccine Quad ID 18-64 YRS 2017-01-18 00:00:00 Completed [facility] Influenza Virus Vaccine Quad ID 18-64 YRS 2017-01-18 00:00:00 Completed [facility] Influenza Virus Vaccine Quad ID 18-64 YRS 2017-01-18 00:00:00 Completed [facility] Influenza Virus Vaccine Quad ID 18-64 YRS 2017-01-18 00:00:00 Completed [facility] Influenza Virus Vaccine Quad ID 18-64 YRS 2017-01-18 00:00:00 Completed [facility] Influenza Virus Vaccine Quad ID 18-64 YRS 2017-01-18 00:00:00 Completed [facility] Influenza Virus Vaccine Quad IM 3+ YRS 2016-08-21 00:00:00 Completed [facility] Influenza Virus Vaccine Quad IM 3+ YRS 2016-08-21 00:00:00 Completed [facility] Influenza Virus Vaccine Quad IM 3+ YRS 2016-08-21 00:00:00 Completed [facility] Influenza Virus Vaccine Quad IM 3+ YRS 2016-08-21 00:00:00 Completed [facility] Influenza Virus Vaccine Quad IM 3+ YRS 2016-08-21 00:00:00 Completed [facility] Influenza Virus Vaccine Quad IM 3+ YRS 2016-08-21 00:00:00 Completed [facility] Influenza Virus Vaccine Quad IM 3+ YRS 2016-08-21 00:00:00 Completed [facility] Influenza Virus Vaccine Quad IM 3+ YRS 2016-08-21 00:00:00 Completed [facility] Influenza Virus Vaccine Quad IM 3+ YRS 2016-08-21 00:00:00 Completed [facility] Influenza Virus Vaccine Quad IM 3+ YRS 2016-08-21 00:00:00 Completed [facility] Influenza Virus Vaccine Quad IM 3+ YRS 2016-08-21 00:00:00 Completed [facility] Influenza Virus Vaccine Quad IM 3+ YRS 2016-08-21 00:00:00 Completed [facility] Influenza Virus Vaccine Quad IM 3+ YRS 2016-08-21 00:00:00 Completed [facility] Influenza Virus Vaccine Quad IM 3+ YRS 2016-08-21 00:00:00 Completed [facility] Influenza Virus Vaccine Quad IM 3+ YRS 2016-08-21 00:00:00 Completed [facility] Influenza Virus Vaccine 2016-08-20 00:00:00 Completed [facility] Influenza Virus Vaccine 2016-08-20 00:00:00 Completed [facility] Influenza Virus Vaccine 2016-08-20 00:00:00 Completed [facility] Influenza Virus Vaccine 2016-08-20 00:00:00 Completed [facility] Influenza Virus Vaccine 2016-08-20 00:00:00 Completed [facility] Influenza Virus Vaccine 2016-08-20 00:00:00 Completed [facility] Influenza Virus Vaccine 2016-08-20 00:00:00 Completed [facility] Influenza Virus Vaccine 2016-08-20 00:00:00 Completed [facility] Influenza Virus Vaccine 2016-08-20 00:00:00 Completed [facility] Influenza Virus Vaccine 2016-08-20 00:00:00 Completed [facility] Influenza Virus Vaccine 2016-08-20 00:00:00 Completed [facility] Influenza Virus Vaccine 2016-08-20 00:00:00 Completed [facility] Influenza Virus Vaccine 2016-08-20 00:00:00 Completed Influenza Virus Vaccine 2016-08-20 00:00:00 Completed Influenza Virus Vaccine 2016-08-20 00:00:00 Completed Afluria Afluria Unknown Completed [facility] Afluria Afluria Unknown Completed [facility] Afluria Afluria Unknown Completed [facility] Afluria [facility]fluria Unknown Completed [facility] Afluria Afluria Unknown Completed [facility] Afluria Afluria Unknown Completed [facility] Afluria Afluria Unknown Completed [facility] Afluria Afluria Unknown Completed [facility] Afluria Afluria Unknown Completed [facility] Afluria Afluria Unknown Completed [facility] Afluria Afluria Unknown Completed [facility] Afluria Afluria Unknown Completed [facility] Afluria Afluria Unknown Completed [facility] Afluria Afluria Unknown Completed [facility] Afluria Afluria Unknown Completed [facility] Afluria Afluria Unknown Completed [facility] Afluria Afluria Unknown Completed [facility] Afluria Afluria Unknown Completed [facility] Influenza Virus Vaccine Quad IM 3+ YRS Unknown Completed [facility] Influenza Virus Vaccine Quad ID 18-64 YRS Unknown Completed [facility] Influenza Virus Vaccine Unknown Completed [facility] Influenza Virus Vaccine Quad IM, Preserv and ABX Free 6 MO-64 YRS (FLUCELVAX) Unknown Completed [facility] Influenza Virus Vaccine Quad IM 3+ YRS Unknown Completed [facility] Influenza Virus Vaccine Quad ID 18-64 YRS Unknown Completed [facility] Influenza Virus Vaccine Unknown Completed [facility] Influenza Virus Vaccine Quad IM, Preserv and ABX Free 6 MO-64 YRS (FLUCELVAX) Unknown Completed [facility] HPV9 Unknown Completed [facility] Influenza High Dose Unknown Completed [facility] Influenza Virus Vaccine Quad IM 3+ YRS Unknown Completed [facility] Influenza Virus Vaccine Quad ID 18-64 YRS Unknown Completed [facility] Influenza Virus Vaccine Unknown Completed [facility] Influenza Virus Vaccine Quad IM, Preserv and ABX Free 6 MO-64 YRS (FLUCELVAX) Unknown Completed [facility] Influenza High Dose Unknown Completed [facility] HPV9 Unknown Completed [facility] Influenza Virus Vaccine Quad IM 3+ YRS Unknown Completed [facility] Influenza Virus Vaccine Quad ID 18-64 YRS Unknown Completed [facility] Influenza Virus Vaccine Unknown Completed [facility] Influenza Virus Vaccine Quad IM, Preserv and ABX Free 6 MO-64 YRS (FLUCELVAX) Unknown Completed [facility] HPV9 Unknown Completed [facility] Influenza High Dose Unknown Completed [facility] Influenza Virus Vaccine Quad IM 3+ YRS Unknown Completed [facility] Influenza Virus Vaccine Quad ID 18-64 YRS Unknown Completed [facility] Influenza Virus Vaccine Unknown Completed [facility] Influenza Virus Vaccine Quad IM, Preserv and ABX Free 6 MO-64 YRS (FLUCELVAX) Unknown Completed [facility] HPV9 Unknown Completed [facility] Influenza High Dose Unknown Completed [facility] Influenza Virus Vaccine Quad IM 3+ YRS Unknown Completed [facility] Influenza Virus Vaccine Quad ID 18-64 YRS Unknown Completed [facility] Influenza Virus Vaccine Unknown Completed [facility] Influenza Virus Vaccine Quad IM, Preserv and ABX Free 6 MO-64 YRS (FLUCELVAX) Unknown Completed [facility] HPV9 Unknown Completed [facility] Influenza High Dose Unknown Completed [facility] Influenza Virus Vaccine Quad IM 3+ YRS Unknown Completed [facility] Influenza Virus Vaccine Quad ID 18-64 YRS Unknown Completed [facility] Influenza Virus Vaccine Unknown Completed [facility] Influenza Virus Vaccine Quad IM, Preserv and ABX Free 6 MO-64 YRS (FLUCELVAX) Unknown Completed [facility] HPV9 Unknown Completed [facility] Influenza High Dose Unknown Completed [facility] Influenza Virus Vaccine Quad IM 3+ YRS Unknown Completed [facility] Influenza Virus Vaccine Quad ID 18-64 YRS Unknown Completed [facility] Influenza Virus Vaccine Unknown Completed [facility] Influenza Virus Vaccine Quad IM, Preserv and ABX Free 6 MO-64 YRS (FLUCELVAX) Unknown Completed [facility] HPV9 Unknown Completed [facility] Influenza High Dose Unknown Completed [facility] Influenza Virus Vaccine Quad IM 3+ YRS Unknown Completed [facility] Influenza Virus Vaccine Quad ID 18-64 YRS Unknown Completed [facility] Influenza Virus Vaccine Unknown Completed [facility] Influenza Virus Vaccine Quad IM, Preserv and ABX Free 6 MO-64 YRS (FLUCELVAX) Unknown Completed [facility] HPV9 Unknown Completed [facility] Influenza High Dose Unknown Completed [facility] Influenza Virus Vaccine Quad IM 3+ YRS Unknown Completed [facility] Influenza Virus Vaccine Quad ID 18-64 YRS Unknown Completed [facility] Influenza Virus Vaccine Unknown Completed [facility] Influenza Virus Vaccine Quad IM, Preserv and ABX Free 6 MO-64 YRS (FLUCELVAX) Unknown Completed [facility] HPV9 Unknown Completed [facility] Influenza High Dose Unknown Completed [facility] TD Pres-Free Unknown [facility]ine Quad IM 3+ YRS Unknown Completed [facility] Influenza Virus Vaccine Quad ID 18-64 YRS Unknown Completed [facility] Influenza Virus Vaccine Unknown Completed [facility] Influenza Virus Vaccine Quad IM, Preserv and ABX Free 6 MO-64 YRS (FLUCELVAX) Unknown Completed [facility] HPV9 Unknown Completed [facility] Influenza High Dose Unknown Completed [facility] TD Pres-Free Unknown Completed [facility] Influenza Virus Vaccine Quad IM 3+ YRS Unknown Completed [facility] Influenza Virus Vaccine Quad ID 18-64 YRS Unknown Completed [facility] Influenza Virus Vaccine Unknown Completed [facility] Influenza Virus Vaccine Quad IM, Preserv and ABX Free 6 MO-64 YRS (FLUCELVAX) Unknown Completed [facility] HPV9 Unknown Completed [facility] Influenza High Dose Unknown Completed [facility] TD Pres-Free Unknown Completed [facility] Influenza Virus Vaccine Quad IM 3+ YRS Unknown Completed [facility] Influenza Virus Vaccine Quad ID 18-64 YRS Unknown Completed [facility] Influenza Virus Vaccine Unknown Completed [facility] Influenza Virus Vaccine Quad IM, Preserv and ABX Free 6 MO-64 YRS (FLUCELVAX) Unknown Completed [facility] HPV9 Unknown Completed [facility] Influenza High Dose Unknown Completed [facility] TD Pres-Free Unknown Completed [facility] Influenza Virus Vaccine Quad IM 3+ YRS Unknown Completed [facility] Influenza Virus Vaccine Quad ID 18-64 YRS Unknown Completed [facility] Influenza Virus Vaccine Unknown Completed [facility] Influenza Virus Vaccine Quad IM, Preserv and ABX Free 6 MO-64 YRS (FLUCELVAX) Unknown Completed [facility] HPV9 Unknown Completed [facility] Influenza High Dose Unknown Completed [facility] TD Pres-Free Unknown [facility] Vaccine Quad IM 3+ YRS Unknown Completed [facility] Influenza Virus Vaccine Quad ID 18-64 YRS Unknown Completed [facility] Influenza Virus Vaccine Unknown Completed [facility] Influenza Virus Vaccine Quad IM, Preserv and ABX Free 6 MO-64 YRS (FLUCELVAX) Unknown Completed [facility] HPV9 Unknown Completed [facility] Influenza High Dose Unknown Completed [facility] TD Pres-Free Unknown Completed [facility] Influenza Virus Vaccine Quad IM 3+ YRS Unknown Completed [facility] Influenza Virus Vaccine Quad ID 18-64 YRS Unknown Completed [facility] Influenza Virus Vaccine Unknown Completed [facility] Influenza Virus Vaccine Quad IM, Preserv and ABX Free 6 MO-64 YRS (FLUCELVAX) Unknown Completed [facility] HPV9 Unknown Completed [facility] Influenza High Dose Unknown Completed [facility] TD Pres-Free Unknown Completed [facility] Influenza Virus Vaccine Quad IM 3+ YRS Unknown Completed [facility] Influenza Virus Vaccine Quad ID 18-64 YRS Unknown Completed [facility] Influenza Virus Vaccine Unknown Completed [facility] Influenza Virus Vaccine Quad IM, Preserv and ABX Free 6 MO-64 YRS (FLUCELVAX) Unknown Completed [facility] HPV9 Unknown Completed [facility] Influenza High Dose Unknown Completed [facility] TD Pres-Free Unknown Completed [facility] Influenza Virus Vaccine Quad IM 3+ YRS Unknown Completed [facility] Influenza Virus Vaccine Quad ID 18-64 YRS Unknown Completed [facility] Influenza Virus Vaccine Unknown Completed [facility] Influenza Virus Vaccine Quad IM, Preserv and ABX Free 6 MO-64 YRS (FLUCELVAX) Unknown Completed [facility] HPV9 Unknown Completed [facility] Influenza High Dose Unknown Completed [facility] TD Pres-Free Unknown [facility] Virus Vaccine Quad IM 3+ YRS Unknown Completed [facility] Influenza Virus Vaccine Quad ID 18-64 YRS Unknown Completed [facility] Influenza Virus Vaccine Unknown Completed [facility] Influenza Virus Vaccine Quad IM, Preserv and ABX Free 6 MO-64 YRS (FLUCELVAX) Unknown Completed [facility] HPV9 Unknown Completed [facility] Influenza High Dose Unknown Completed [facility] TD Pres-Free Unknown Completed [facility] Influenza Virus Vaccine Quad IM 3+ YRS Unknown Completed [facility] Influenza Virus Vaccine Quad ID 18-64 YRS Unknown Completed [facility] Influenza Virus Vaccine Unknown Completed [facility] Influenza Virus Vaccine Quad IM, Preserv and ABX Free 6 MO-64 YRS (FLUCELVAX) Unknown Completed [facility] HPV9 Unknown Completed [facility] Influenza High Dose Unknown Completed [facility] TD Pres-Free Unknown Completed [facility] Influenza Virus Vaccine Quad IM 3+ YRS Unknown Completed [facility] Influenza Virus Vaccine Quad ID 18-64 YRS Unknown Completed [facility] Influenza Virus Vaccine Unknown Completed [facility] Influenza Virus Vaccine Quad IM, Preserv and ABX Free 6 MO-64 YRS (FLUCELVAX) Unknown Completed [facility] HPV9 Unknown Completed [facility] Influenza High Dose Unknown Completed [facility] TD Pres-Free Unknown Completed [facility] Influenza Virus Vaccine Quad IM 3+ YRS Unknown Completed [facility] Influenza Virus Vaccine Quad ID 18-64 YRS Unknown Completed [facility] Influenza Virus Vaccine Unknown Completed [facility] Influenza Virus Vaccine Quad IM, Preserv and ABX Free 6 MO-64 YRS (FLUCELVAX) Unknown Completed [facility] HPV9 Unknown Completed [facility] Influenza High Dose Unknown Completed [facility] TD Pres-Free Unknown Completed [facility] Influenza Virus Vaccine Quad IM 3+ YRS Unknown Completed [facility] Influenza Virus Vaccine Quad ID 18-64 YRS Unknown Completed [facility] Influenza Virus Vaccine Unknown Completed [facility] Influenza Virus Vaccine Quad IM, Preserv and ABX Free 6 MO-64 YRS (FLUCELVAX) Unknown Completed [facility] HPV9 Unknown Completed [facility] Influenza, High-Dose, Trivalent, PF (FLUZONE) Unknown Completed [facility] TD Pres-Free Unknown Completed [facility] Vital Signs Vital Name Observation Time Observation Value Comments S ource Heart rate 2024-04-25 14:53:02 106 /min [facility] Respiratory rate 2024-04-25 14:53:02 18 [facility] O[facility] saturation in Arterial blood by Pulse oximetry 2024-04-25 14:53:02 99 /min [facility] Systolic blood pressure 2024-04-25 14:52:32 121 mm[Hg] [facility] Diastolic blood pressure 2024-04-25 14:52:32 82 mm[Hg] [facility] Body temperature 2024-04-25 14:52:[address] [facility] Body height 2024-04-24 14:39:00 170.2 cm [facility] Body weight 2024-04-24 14:39:00 49.896 kg [facility] BMI 2024-04-24 14:39:00 17.23 kg/m2 [facility] Heart rate 2024-04-25 14:53:02 106 /min [facility] Respiratory rate 2024-04-25 14:53:02 18 /min [facility] Epic Oxygen saturation in Arterial blood by Pulse oximetry 2024-04-25 14:53:02 99 /min [facility] Systolic blood pressure 2024-04-25 14:52:32 121 mm[Hg] [facility] Diastolic blood pressure 2024-04-25 14:52:32 82 mm[Hg] [facility] Body temperature 2024-04-25 14:52:17 37.89 [facility] Body height 2024-04-24 14:39:00 170.2 cm [facility] [place] Body weight 2024-04-24 14:39:00 49.896 kg [facility] BMI 2024-04-24 14:39:00 17.23 kg/m2 [facility] Respiratory rate 2024-04-05 08:56:00 19 /min [facility] Systolic blood pressure 2024-04-05 08:30:00 129 mm[Hg] [facility] Diastolic blood pressure 2024-04-05 08:30:00 94 mm[Hg] [facility] Heart rate 2024-04-05 05:12:00 97 /min [facility] Body temperature 2024-04-05 05:12:00 36.83 Purvi [facility] Body height 2024-04-05 05:12:00 170.2 cm [facility] Body weight 2024-04-05 05:12:00 54.432 kg [facility] BMI 2024-04-05 05:12:00 18.79 kg/m2 [facility] Oxygen saturation in Arterial blood by Pulse oximetry 2024-04-05 05:12:00 96 /min [facility] Systolic blood pressure 2024-03-31 00:32:00 130 mm[Hg] [facility] Diastolic blood pressure 2024-03-31 00:32:00 104 mm[Hg] [facility] Heart rate 2024-03-31 00:32:00 125 /min [facility] Body temperature 2024-03-31 00:32:00 36.72 Purvi [facility] Respiratory rate 2024-03-31 00:32:00 16 /min [facility] Body height 2024-03-31 00:32:00 170.2 cm [facility] Body weight 2024-03-31 00:32:00 54.432 kg [facility] BMI 2024-03-31 00:32:00 18.79 kg/m2 [facility] Oxygen saturation in Arterial blood by Pulse oximetry 2024-03-31 00:32:00 100 /min [facility] Systolic blood pressure 2024-03-30 08:58:00 144 mm[Hg] [facility] Diastolic blood pressure 2024-03-30 08:58:00 94 mm[Hg] [facility] Heart rate 2024-03-30 08:58:00 115 /min [facility] Body temperature 2024-03-30 08:58:00 36.78 Purvi [facility] Respiratory rate 2024-03-30 08:58:00 20 /min [facility] Body height 2024-03-30 08:58:00 170.2 cm [facility] Body weight 2024-03-30 08:58:00 54.432 kg [facility] BMI 2024-03-30 08:58:00 18.79 kg/m2 [facility] Oxygen saturation in Arterial blood by Pulse oximetry 2024-03-30 08:58:00 100 /min [facility] Systolic blood pressure 2024-02-05 18:15:00 124 mm[Hg] [facility] Diastolic blood pressure 2024-02-05 18:15:00 85 mm[Hg] [facility] Heart rate 2024-02-05 18:15:00 93 /min [facility] 2024-02-05 18:15:00 170.2 cm [facility] Body weight 2024-02-05 18:15:00 56.745 kg [facility] BMI 2024-02-05 18:15:00 19.59 kg/m2 [facility] Systolic blood pressure 2024 21:08:00 114 mm[Hg] [facility] Diastolic blood pressure 2024 21:08:00 85 mm[Hg] [facility] Heart rate 2024 21:08:00 98 /min [facility] Body temperature 2024 21:08:00 36.56 Purvi [facility] Respiratory rate 2024 21:08:00 18 /min [facility] Oxygen saturation in Arterial blood by Pulse oximetry 2024 21:08:00 100 /min [facility] Body height 2024 19:22:00 170.2 cm [facility] Body weight 2024 19:22:00 54.432 kg [facility] BMI 2024 19:22:00 18.79 kg/m2 [facility] Body height 2024-01-23 16:10:00 170.2 cm [facility] Body weight 2024-01-23 16:10:00 54.84 kg [facility] BMI 2024-01-23 16:10:00 18.94 kg/m2 [facility] Body height 2024-01-03 15:39:00 170.2 cm [facility] Body weight 2024-01-03 15:39:00 55.974 kg [facility] BMI 2024-01-03 15:39:00 19.33 kg/m2 [facility] Body weight 2023-12-28 01:00:00 54.432 kg [facility] BMI 2023-12-28 01:00:00 18.79 kg/m2 [facility] Systolic blood pressure 2023-12-27 23:55:00 113 mm[Hg] [facility] Diastolic blood pressure 2023-12-27 23:55:00 80 mm[Hg] [facility] Heart rate 2023-12-27 23:55:00 92 /min [facility] Respiratory rate 2023-12-27 23:55:00 18 /min [facility] Oxygen saturation in Arterial blood by Pulse oximetry 2023-12-27 23:55:00 100 /min [facility] Body temperature 2023-12-27 20:34:00 37.17 Purvi [facility] Systolic blood pressure 2023-12-16 11:22:00 109 mm[Hg] [facility] Diastolic blood pressure 2023-12-16 11:22:00 77 mm[Hg] [facility] Heart rate 2023-12-16 11:22:00 110 /min [facility] Body temperature 2023-12-16 11:22:00 36.72 Purvi [facility] Respiratory rate 2023-12-16 11:22:00 20 /min [facility] Body height 2023-12-16 11:22:00 170.2 cm [facility] Body weight 2023-12-16 11:22:00 54.432 kg [facility] BMI 2023-12-16 11:22:00 18.79 kg/m2 [facility] Oxygen saturation in Arterial blood by Pulse oximetry 2023-12-16 11:22:00 100 /min [facility] Systolic blood pressure 2023-12-08 22:00:00 122 mm[Hg] [facility] Diastolic blood pressure 2023-12-08 22:00:00 80 mm[Hg] [facility] Heart rate 2023-12-08 22:00:00 130 /min [facility] Body temperature 2023-12-08 22:00:00 36.67 Purvi [facility] Respiratory rate 2023-12-08 22:00:00 18 /min [facility] Oxygen saturation in Arterial blood by Pulse oximetry 2023-12-08 22:00:00 100 /min [facility] Body height 2023-12-08 19:10:00 170.2 cm [facility] Body weight 2023-12-08 19:10:00 53.071 kg [facility] BMI 2023-12-08 19:10:00 18.32 kg/m2 [facility] Systolic blood pressure 2023-12-06 10:00:00 112 mm[Hg] [facility] Diastolic blood pressure 2023-12-06 10:00:00 78 mm[Hg] [facility] Heart rate 2023-12-06 09:21:07 116 /min [facility] Respiratory rate 2023-12-06 09:21:07 20 /min [facility] Oxygen saturation in Arterial blood by Pulse oximetry 2023-12-06 09:21:07 100 /min [facility] Body temperature 2023-12-06 01:47:00 36.67 Purvi [facility] Body height 2023-12-06 01:47:00 170.2 cm [facility] Body weight 2023-12-06 01:47:00 53.071 kg [facility] BMI 2023-12-06 01:47:00 18.32 kg/m2 [facility] Systolic blood pressure 2023-12-05 05:00:00 114 mm[Hg] [facility] Diastolic blood pressure 2023-12-05 05:00:00 83 mm[Hg] [facility] Heart rate 2023-12-05 05:00:00 116 /min [facility] Respiratory rate 2023-12-05 05:00:00 20 /min [facility] Oxygen saturation in Arterial blood by Pulse oximetry 2023-12-05 05:00:00 96 /min [facility] Body temperature 2023-12-05 02:52:00 36.94 Purvi [facility] Body height 2023-12-05 02:52:00 170.2 cm [facility] Body weight 2023-12-05 02:52:00 53.116 kg [facility] BMI 2023-12-05 02:52:00 18.34 kg/m2 [facility] Systolic blood pressure 2023-11-22 21:46:12 99 mm[Hg] [facility] Diastolic blood pressure 2023-11-22 21:46:12 57 mm[Hg] [facility] Heart rate 2023-11-22 21:46:12 99 /min [facility] Body temperature 2023-11-22 21:46:12 37.17 Purvi [facility] Respiratory rate 2023-11-22 21:46:12 16 /min [facility] Oxygen saturation in Arterial blood by Pulse oximetry 2023-11-22 21:46:12 97 /min [facility] Body height 2023-11-22 17:01:00 170.2 cm [facility] Body weight 2023-11-22 17:01:00 53.071 kg [facility] BMI 2023-11-22 17:01:00 18.32 kg/m2 [facility] Systolic blood pressure 2023-11-10 06:38:05 124 mm[Hg] [facility] Diastolic blood pressure 2023-11-10 06:38:05 99 mm[Hg] [facility] Heart rate 2023-11-10 06:38:05 99 /min [facility] Body temperature 2023-11-10 06:38:05 36.67 Purvi [facility] Respiratory rate 2023-11-10 06:38:05 16 /min [facility] Oxygen saturation in Arterial blood by Pulse oximetry 2023-11-10 06:38:05 99 /min [facility] Body height 2023-11-10 03:34:00 170.2 cm [facility] Body weight 2023-11-10 03:34:00 47.628 kg [facility] BMI 2023-11-10 03:34:00 16.45 kg/m2 [facility] Systolic blood pressure 2023-11-09 12:26:00 119 mm[Hg] [facility] Diastolic blood pressure 2023-11-09 12:26:00 84 mm[Hg] [facility] Heart rate 2023-11-09 12:26:00 103 /min [facility] Body temperature 2023-11-09 12:26:00 36.89 Purvi [facility] Respiratory rate 2023-11-09 12:26:00 20 /min [facility] Oxygen saturation in Arterial blood by Pulse oximetry 2023-11-09 12:26:00 100 /min [facility] Body weight 2023-11-09 08:29:00 53.479 kg [facility] BMI 2023-11-09 08:29:00 18.47 kg/m2 [facility] Body height 2023-11-06 21:32:00 170.2 cm [facility] Systolic blood pressure 2023-10-28 17:30:00 104 mm[Hg] [facility] Diastolic blood pressure 2023-10-28 17:30:00 78 mm[Hg] [facility] Heart rate 2023-10-28 17:30:00 112 /min [facility] Body temperature 2023-10-28 17:30:00 37.06 Purvi [facility] Respiratory rate 2023-10-28 17:30:00 20 /min [facility] Oxygen saturation in Arterial blood by Pulse oximetry 2023-10-28 17:30:00 99 /min [facility] Body height 2023-10-28 03:09:00 170.2 cm [facility] Body weight 2023-10-28 03:09:00 52.164 kg [facility] BMI 2023-10-28 03:09:00 18.01 kg/m2 [facility] Systolic blood pressure 2023-10-19 16:14:00 120 mm[Hg] [facility] Diastolic blood pressure 2023-10-19 16:14:00 87 mm[Hg] [facility] Heart rate 2023-10-19 16:14:00 98 /min [facility] Body temperature 2023-10-19 16:14:00 37.67 Purvi [facility] Respiratory rate 2023-10-19 16:14:00 18 /min [facility] Oxygen saturation in Arterial blood by Pulse oximetry 2023-10-19 16:14:00 98 /min [facility] Body height 2023-10-19 15:44:00 170.2 cm [facility] Body weight 2023-10-19 15:44:00 52.164 kg [facility] BMI 2023-10-19 15:44:00 18.01 kg/m2 [facility] Systolic blood pressure 2023-10-19 00:36:06 120 mm[Hg] [facility] Diastolic blood pressure 2023-10-19 00:36:06 89 mm[Hg] [facility] Heart rate 2023-10-19 00:36:06 129 /min [facility] Respiratory rate 2023-10-19 00:36:06 15 /min [facility] Oxygen saturation in Arterial blood by Pulse oximetry 2023-10-19 00:36:06 96 /min [facility] Body temperature 2023-10-19 00:32:00 37.11 Purvi [facility] Body height 2023-10-19 00:32:00 170.2 cm [facility] Body weight 2023-10-19 00:32:00 52.164 kg [facility] BMI 2023-10-19 00:32:00 18.01 kg/m2 [facility] Systolic blood pressure 2023-09-21 16:40:00 125 mm[Hg] [facility] Diastolic blood pressure 2023-09-21 16:40:00 89 mm[Hg] [facility] Heart rate 2023-09-21 16:40:00 92 /min [facility] Body temperature 2023-09-21 16:40:00 36.11 Purvi [facility] Respiratory rate 2023-09-21 16:40:00 19 /min [facility] Oxygen saturation in Arterial blood by Pulse oximetry 2023-09-21 16:40:00 98 /min [facility] Body weight 2023-09-21 07:35:00 52.98 kg [facility] BMI 2023-09-21 07:35:00 18.29 kg/m2 [facility] Body height 2023-09-19 16:50:00 170.2 cm [facility] Systolic blood pressure 2023-09-15 18:00:00 136 mm[Hg] [facility] Diastolic blood pressure 2023-09-15 18:00:00 95 mm[Hg] [facility] Heart rate 2023-09-15 18:00:00 94 /min [facility] Body temperature 2023-09-15 18:00:00 36.83 Purvi [facility] Respiratory rate 2023-09-15 18:00:00 10 /min [facility] Oxygen saturation in Arterial blood by Pulse oximetry 2023-09-15 18:00:00 97 /min [facility] Body height 2023-09-15 16:25:00 170.2 cm [facility] Body weight 2023-09-15 16:25:00 53.524 kg [facility] BMI 2023-09-15 16:25:00 18.48 kg/m2 [facility] Systolic blood pressure 2023-09-14 00:00:00 120 mm[Hg] [facility] Diastolic blood pressure 2023-09-14 00:00:00 90 mm[Hg] [facility] Heart rate 2023-09-14 00:00:00 115 /min [facility] Body temperature 2023-09-14 00:00:00 37.06 Purvi [facility] Oxygen saturation in Arterial blood by Pulse oximetry 2023-09-14 00:00:00 98 /min [facility] Respiratory rate 2023-09-13 23:03:00 16 /min [facility] Body height 2023-09-13 23:03:00 170.2 cm [facility] Body weight 2023-09-13 23:03:00 53.524 kg [facility] BMI 2023-09-13 23:03:00 18.48 kg/m2 [facility] height 2023-06-11 10:30:00 67 [in_i] Commo n [facility] weight 2023-06-11 10:30:00 110 [lb_av] Comm on [facility] bmi 2023-06-11 10:30:00 17.23 kg/m2 [facility] Systolic blood pressure 2023-04-30 20:12:00 129 mm[Hg] [facility] Diastolic blood pressure 2023-04-30 20:12:00 87 mm[Hg] [facility] Heart rate 2023-04-30 20:12:00 118 /min [facility] Body temperature 2023-04-30 20:12:00 36.72 Purvi [facility] Respiratory rate 2023-04-30 20:12:00 14 /min [facility] Body weight 2023-04-30 20:12:00 48.988 kg [facility] BMI 2023-04-30 20:12:00 16.92 kg/m2 [facility] Oxygen saturation in Arterial blood by Pulse oximetry 2023-04-30 20:12:00 100 /min [facility] Systolic blood pressure 2023-04-27 15:00:00 114 mm[Hg] [facility] Diastolic blood pressure 2023-04-27 15:00:00 86 mm[Hg] [facility] Heart rate 2023-04-27 15:00:00 105 /min [facility] Oxygen saturation in Arterial blood by Pulse oximetry 2023-04-27 15:00:00 99 /min [facility] Respiratory rate 2023-04-27 12:00:00 18 /min [facility] Body temperature 2023-04-27 10:00:00 36 Purvi [facility] Body weight 2023-04-27 10:00:00 49.487 kg [facility] BMI 2023-04-27 10:00:00 17.09 kg/m2 [facility] Body height 2023-04-24 21:18:00 170.2 cm [facility] height 2023-03-06 13:10:00 67 [in_i] Commo n [facility] weight 2023-03-06 13:10:00 110 [lb_av] Comm on [facility] bmi 2023-03-06 13:10:00 17.23 kg/m2 Comm on [facility] blood pressure systolic 2023-03-06 13:10:00 129 mm[Hg] Common [facility] blood pressure diastolic 2023-03-06 13:10:00 84 mm[Hg] [facility] height 2023-01-04 09:20:00 67 [in_i] Commo n [facility] weight 2023-01-04 09:20:00 110 [lb_av] Comm on [facility] bmi 2023-01-04 09:20:00 17.23 kg/m2 Comm on [facility] blood pressure systolic 2023-01-04 09:20:00 123 mm[Hg] Common [facility] blood pressure diastolic 2023-01-04 09:20:00 70 mm[Hg] [facility] Systolic blood pressure 2022-12-12 14:09:00 135 mm[Hg] [facility] Diastolic blood pressure 2022-12-12 14:09:00 89 mm[Hg] [facility] Heart rate 2022-12-12 14:08:00 123 /min [facility] Body temperature 2022-12-12 14:08:00 36.83 Purvi [facility] Respiratory rate 2022-12-12 14:08:00 14 /min [facility] Body weight 2022-12-12 14:08:00 48.535 kg [facility] BMI 2022-12-12 14:08:00 16.76 kg/m2 [facility] Oxygen saturation in Arterial blood by Pulse oximetry 2022-12-12 14:08:00 99 /min [facility] Systolic blood pressure 2022-11-13 20:53:00 121 mm[Hg] [facility] Diastolic blood pressure 2022-11-13 20:53:00 83 mm[Hg] [facility] Heart rate 2022-11-13 20:53:00 108 /min Unive [facility] Body temperature 2022-11-13 20:53:00 37.06 Purvi [facility] Respiratory rate 2022-11-13 20:53:00 18 /min [facility] Oxygen saturation in Arterial blood by Pulse oximetry 2022-11-13 20:53:00 100 /min [facility] Body height 2022-11-11 01:42:00 170.2 cm [facility] Body weight 2022-11-11 01:42:00 47.174 kg [facility] BMI 2022-11-11 01:42:00 16.29 kg/m2 [facility] Systolic blood pressure 2022-11-07 16:10:00 146 mm[Hg] [facility] Diastolic blood pressure 2022-11-07 16:10:00 89 mm[Hg] [facility] Heart rate 2022-11-07 16:10:00 96 /min Unive [facility] Body temperature 2022-11-07 16:10:00 36.39 Purvi [facility] Respiratory rate 2022-11-07 16:10:00 16 /min [facility] Oxygen saturation in Arterial blood by Pulse oximetry 2022-11-07 16:10:00 98 /min [facility] Body weight 2022-11-07 08:47:00 48.988 kg [facility] BMI 2022-11-07 08:47:00 16.92 kg/m2 [facility] Body height 2022-11-06 11:23:00 170.2 cm [facility] height 2022-10-30 16:50:00 67 [in_i] Commo n [facility] weight 2022-10-30 16:50:00 99 [lb_av] Commo n [facility] bmi 2022-10-30 16:50:00 15.5 kg/m2 Commo n [facility] blood pressure systolic 2022-10-30 16:50:00 121 mm[Hg] Common [facility] blood pressure diastolic 2022-10-30 16:50:00 70 mm[Hg] [facility] Systolic blood pressure 2022-08-28 01:39:00 125 mm[Hg] [facility] Diastolic blood pressure 2022-08-28 01:39:00 96 mm[Hg] [facility] Heart rate 2022-08-28 01:39:00 95 /min [facility] Body temperature 2022-08-28 01:39:00 36.5 Purvi [facility] Respiratory rate 2022-08-28 01:39:00 16 /min [facility] Body height 2022-08-28 01:39:00 170.2 cm [facility] Body weight 2022-08-28 01:39:00 47.628 kg [facility] BMI 2022-08-28 01:39:00 16.45 kg/m2 [facility] Oxygen saturation in Arterial blood by Pulse oximetry 2022-08-28 01:39:00 100 /min [facility] height 2022-07-31 16:20:00 67 [in_i] Commo n [facility] weight 2022-07-31 16:20:00 98 [lb_av] Comm n [facility] bmi 2022-07-31 16:20:00 15.35 kg/m2 Comm on [facility] blood pressure systolic 2022-07-31 16:20:00 120 mm[Hg] [facility] blood pressure diastolic 2022-07-31 16:20:00 74 mm[Hg] [facility] height 2022-06-01 08:50:00 67 [in_i] Commo n [facility] weight 2022-06-01 08:50:00 96.9 [lb_av] Com [facility] temperature 2022-06-01 08:50:00 96.8 [degF] Com [facility] bmi 2022-06-01 08:50:00 15.18 kg/m2 Comm on [facility] oximetry 2022-06-01 08:50:00 99 % Commo n [facility] respiratory rate 2022-06-01 08:50:00 18 /min [facility] blood pressure systolic 2022-06-01 08:50:00 118 mm[Hg] [facility] blood pressure diastolic 2022-06-01 08:50:00 77 mm[Hg] [facility] Systolic blood pressure 2022-04-13 01:48:00 138 mm[Hg] [facility] Diastolic blood pressure 2022-04-13 01:48:00 91 mm[Hg] [facility] Heart rate 2022-04-13 01:48:00 81 /min [facility] Res[facility] rate 2022-04-13 01:48:00 16 /min [facility] Oxygen saturation in Arterial blood by Pulse oximetry 2022-04-13 01:48:00 98 /min [facility] Body temperature 2022-04-12 21:03:00 36.72 Purvi [facility] Body weight 2022-04-12 21:03:00 45.36 kg [facility] BMI 2022-04-12 21:03:00 15.66 kg/m2 [facility] Systolic blood pressure 2022-04-09 05:47:00 138 mm[Hg] [facility] Diastolic blood pressure 2022-04-09 05:47:00 104 mm[Hg] [facility] Heart rate 2022-04-09 05:47:00 112 /min Un[facility] Body temperature 2022-04-09 05:47:00 36.61 Purvi [facility] Respiratory rate 2022-04-09 05:47:00 16 /min [facility] Body height 2022-04-09 05:47:00 170.2 cm [facility] Body weight 2022-04-09 05:47:00 45.36 kg Univ [facility] BMI 2022-04-09 05:47:00 15.66 kg/m2 [facility] Oxygen saturation in Arterial blood by Pulse oximetry 2022-04-09 05:47:00 100 /min [facility] Systolic blood pressure 2022-04-05 20:08:00 149 mm[Hg] [facility] Diastolic blood pressure 2022-04-05 20:08:00 114 mm[Hg] [facility] Heart rate 2022-04-05 20:08:00 108 /min [facility] Body temperature 2022-04-05 20:08:00 36.61 Purvi [facility] Respiratory rate 2022-04-05 20:08:00 16 /min [facility] Body height 2022-04-05 20:08:00 170.2 cm Univ [facility] Body weight 2022-04-05 20:08:00 45.36 kg [facility] BMI 2022-04-05 20:08:00 15.66 kg/m2 [facility] Oxygen saturation in Arterial blood by Pulse oximetry 2022-04-05 20:08:00 100 /min [facility] height 2022-03-02 07:50:00 67 [in_i] Commo n [facility] weight 2022-03-02 07:50:00 105 [lb_av] Comm on [facility] temperature 2022-03-02 07:50:00 98 [degF] Comm on [facility] bmi 2022-03-02 07:50:00 16.44 kg/m2 Comm on [facility] blood pressure systolic 2022-03-02 07:50:00 120 mm[Hg] Common [facility] blood pressure diastolic 2022-03-02 07:50:00 76 mm[Hg] Common [facility] height 2022-01-02 11:40:00 67 [in_i] Commo n [facility] weight 2022-01-02 11:40:00 105 [lb_av] Comm on [facility] bmi 2022-01-02 11:40:00 16.44 kg/m2 Comm on [facility] blood pressure systolic 2022-01-02 11:40:00 125 mm[Hg] Common [facility] blood pressure diastolic 2022-01-02 11:40:00 76 mm[Hg] [facility] Systolic blood pressure 2021-12-04 20:56:00 124 mm[Hg] [facility] Diastolic blood pressure 2021-12-04 20:56:00 89 mm[Hg] [facility] Heart rate 2021-12-04 20:56:00 156 /min [facility] Body height 2021-12-04 20:56:00 170.2 cm [facility] Body weight 2021-12-04 20:56:00 46.72 kg [facility] BMI 2021-12-04 20:56:00 16.13 kg/m2 [facility] height 2021-10-17 08:00:00 67 [in_i] Commo n [facility] weight 2021-10-17 08:00:00 109 [lb_av] Comm on [facility] temperature 2021-10-17 08:00:00 98 [degF] Comm on [facility] bmi 2021-10-17 08:00:00 17.07 kg/m2 Comm on [facility] blood pressure systolic 2021-10-17 08:00:00 130 mm[Hg] Common [facility] blood pressure diastolic 2021-10-17 08:00:00 80 mm[Hg] Common [facility] height 2021-10-05 08:30:00 67 [in_i] Commo n [facility] weight 2021-10-05 08:30:00 109.1 [lb_av] Co mmon [facility] temperature 2021-10-05 08:30:00 97.7 [degF] Com [facility] bmi 2021-10-05 08:30:00 17.09 kg/m2 Comm on [facility] oximetry 2021-10-05 08:30:00 100 % Commo n [facility] respiratory rate 2021-10-05 08:30:00 18 /min [facility] blood pressure systolic 2021-10-05 08:30:00 137 mm[Hg] Common [facility] blood pressure diastolic 2021-10-05 08:30:00 89 mm[Hg] [facility] oximetry 2021-07-13 15:00:00 100 % Commo n [facility] respiratory rate 2021-07-13 15:00:00 17 /min [facility] blood pressure systolic 2021-07-13 15:00:00 129 mm[Hg] Common [facility] blood pressure diastolic 2021-07-13 15:00:00 85 mm[facility]Hg[facility] height 2021-07-13 15:00:00 67 [in_i] Commo n [facility] weight 2021-07-13 15:00:00 103.5 [lb_av] Co mmon [facility] temperature 2021-07-13 15:00:00 97.9 [degF] Com mon [facility] bmi 2021-07-13 15:00:00 16.21 kg/m2 Comm on [facility] height 2021-05-19 11:10:00 67 [in_i] Commo n [facility] weight 2021-05-19 11:10:00 107 [lb_av] Comm on [facility] temperature 2021-05-19 11:10:00 97.5 [degF] Com mon [facility] bmi 2021-05-19 11:10:00 16.76 kg/m2 Comm on [facility] height 2021-03-21 11:30:00 67 [in_i] Commo n [facility] weight 2021-03-21 11:30:00 107 [lb_av] Comm on [facility] temperature 2021-03-21 11:30:00 98 [degF] Comm on [facility] bmi 2021-03-21 11:30:00 16.76 kg/m2 Comm on [facility] blood pressure systolic 2021-03-21 11:30:00 125 mm[Hg] Common [facility] blood pressure diastolic 2021-03-21 11:30:00 75 mm[Hg] Common [facility] height 2021-01-09 16:40:00 67 [in_i] Commo n [facility] weight 2021-01-09 16:40:00 105 [lb_av] Comm on [facility] temperature 2021-01-09 16:40:00 98.5 [degF] Com [facility] bmi 2021-01-09 16:40:00 16.44 kg/m2 Comm on [facility] Procedures Procedure Date / Time Performed Performing Clinician Source Phosphorus Level 2024-04-26 00:00:00 Ryan fisher [facility] Magnesium Level 2024-04-26 00:00:00 Wyatt bush Sammy [facility] Complete Blood Count w/Diff and Platelet 2024-04-26 00:00:00 [facility] Comprehensive Metabolic Panel 2024-04-26 00:00:00 [facility] DRUG SCREEN URINE (8 DRUGS) 2024-04-25 06:14:00 Yaniv, Eugeniasan antoniomarco [facility] UA WITH CULTURE IF INDICATED 2024-04-25 06:14:00 Yaniv, Eugeniasan antoniomarco [facility] HIV 4TH GEN WITH REFLEX 2024-04-25 06:12:00 Yaniv, Lauren rachelleramsey [facility] AMMONIA LEVEL 2024-04-25 02:20:00 Monika Del Rosario [facility] CT ABDOMEN PELVIS W IV CONTRAST 2024-04-25 01:51:45 Jt Huffman [facility] Acute Hepatitis Panel 2024-04-25 00:00:00 [facility] US GALLBLADDER 2024-04-24 20:15:37 Mone Donovan [facility] XR CHEST 1 VIEW 2024-04-24 17:57:00 Jacqueline Jimenez [facility] BLOOD GAS, VENOUS 2024-04-24 17:22:00 Jacqueline Jimenez Ra [facility] COMPLETE BLOOD COUNT 2024-04-24 16:35:00 Jacqueline Jimenez [facility] AUTOMATED DIFFERENTIAL 2024-04-24 16:35:00 Viridiana Jimenez Lida [facility] REFLEX MORPHOLOGY - DO NOT ORDER 2024-04-24 16:35:00 Jacqueline Jimenez [facility] CREATINE KINASE (CK TOTAL) 2024-04-24 16:35:00 Jacqueline Jimenez [facility] LIPASE LEVEL 2024-04-24 16:35:00 Jacqueline Jimenez [facility] 2024-04-24 16:35:00 Jacqueline Jimenez [facility] COMPLETE BLOOD COUNT W/DIFF AND PLATELET 2024-04-24 16:35:00 Jacqueline Jimenez [facility] THYROID STIMULATING HORMONE W/ REFLEX FREE T4 2024-04-24 16:35:00 Jacqueline Jimenez [facility] BASIC METABOLIC PANEL 2024-04-24 16:34:00 Johnna Jimenez [facility] HEPATIC FUNCTION PANEL 2024-04-24 16:34:00 Viridiana Jimenez Lida [facility] ETHANOL LEVEL 2024-04-24 16:34:[address] [facility] [place] [facility] HCG TOTAL (QUANTITATIVE) 2024-04-24 16:34:00 Zara Jimenez [facility] PROTIME-INR 2024-04-24 16:34:00 Jacqueline Jimenez [facility] orial [place] [facility] PTT 2024-04-24 16:34:00 Jacqueline Jimenez [facility] orial [place] [facility] CT ANGIOGRAM HEAD 2024-04-05 06:45:52 Haroon [facility] CT ANGIOGRAM NECK 2024-04-05 06:45:52 Haroon [facility] XR CHEST 1 VW 2024-04-05 06:43:02 Haroon [facility] URINE DRUG (IMMUNOASSAY) - COMPREHENSIVE DRUG SCREEN 2024-04-05 05:37:00 Haroon [facility] URINALYSIS 2024-04-05 05:37:00 Michelle Patiño [facility] LIPASE 2024-04-05 05:22:00 [facility] TEST, SERUM 2024-04-05 05:22:00 Sarai Patiño [facility] TROPONIN I 2024-04-05 05:22:00 Michelle Patiño [facility] COMP. METABOLIC PANEL ([id number]) 2024-04-05 05:22:00 Haroon [facility] ETHANOL 2024-04-05 05:22:00 Michelle Patiño [facility] CBC WITH DIFF 2024-04-05 05:22:00 Haroon [facility] PROTHROMBIN TIME / INR 2024-04-05 05:22:00 Sadiq Patiño [facility] ED LACERATION REPAIR 2024-03-31 03:15:23 Vincent Hernandez [facility] CT MAXILLOFACIAL/MANDIBLE WO CONTRAST 2024-03-31 01:22:29 Bashir [facility] CT TRAUMA HEAD WO CONTRAST 2024-03-31 01:22:29 Bashir [facility] RAPID STREP SCREEN FOR GROUP A 2024 20:21:00 Reji Johansen [facility] POCT TEST 2024 20:17:00 Reji Johansen [facility] XR WRIST 3+ VW RIGHT 2024-01-03 15:50:47 González Ross [facility] POCT TEST 2023-12-08 20:33:00 Madhuri Cabrera [facility] URINALYSIS 2023-12-08 20:04:00 Krista Cabrera [facility] URINE DRUG (IMMUNOASSAY) - COMPREHENSIVE DRUG SCREEN W/O REFLEX 2023-12-08 20:04:00 Krista Cabrera [facility] AC PANEL 21 + LACTIC ACID 2023-12-08 19:29:00 Krista Cabrera [facility] LIPASE 2023-12-08 19:21:00 Krista Cabrera [facility] MAGNESIUM 2023-12-08 19:21:00 Krista Cabrera [facility] COMP. METABOLIC PANEL ([id number]) 2023-12-08 19:21:00 [facility] 2023-12-08 19:21:00 Krista Cabrera [facility] CBC WITH DIFF 2023-12-08 19:21:00 Krista Cabrera [facility] ETHANOL 2023-12-06 08:39:00 Trino Ashford [facility] COMP. METABOLIC PANEL ([id number]) 2023-12-06 02:31:00 Bashir [facility] ETHANOL 2023-12-06 02:31:00 Valeria [facility] CBC WITH DIFF 2023-12-06 02:31:00 Bashir [facility] POCT TEST 2023-12-05 03:09:00 Jonelle Connell [facility] TEST, URINE 2023-12-05 03:01:00 Romana Connell [facility] COMP. METABOLIC PANEL ([id number]) 2023-12-05 03:01:00 Jonelle Connell [facility] SALICYLATE 2023-12-05 03:01:00 Jonelle Connell [facility] ETHANOL 2023-12-05 03:01:00 Jonelle Connell [facility] CBC WITH DIFF 2023-12-05 03:01:00 Jonelle Connell [facility] URINALYSIS 2023-12-05 03:01:00 Jonelle Connell [facility] URINE DRUG (IMMUNOASSAY) - COMPREHENSIVE DRUG SCREEN W/O REFLEX 2023-12-05 03:01:00 Luisito Jonelle [facility] CT CERVICAL SPINE WO CONTRAST 2023-11-22 18:24:35 Nba Balderas [facility] CT HEAD WO CONTRAST 2023-11-22 18:24:35 Dalton Balderas [facility] LIPASE 2023-11-22 17:12:00 Nba Balderas [facility] TROPONIN I 2023-11-22 17:12:00 Nba Balderas Un [facility] COMP. METABOLIC PANEL ([id number]) 2023-11-22 17:12:00 Nba Balderas [facility] TOTAL BETA HCG ASSAY 2023-11-22 17:12:00 Hany Balderas [facility] ETHANOL 2023-11-22 17:12:00 [facility] DIFF 2023-11-22 17:12:00 N[facility] D-DIMER 2023-11-22 17:12:00 Nba [facility]/B RSV COVID NAAT 2023-11-10 04:53:00 Alyssia Miranda [facility] POCT TEST 2023-11-10 04:25:00 Alyssia Montelongo [facility] URINALYSIS 2023-11-10 04:21:00 Aufderheide, Alyssia [facility] URINE DRUG (IMMUNOASSAY) - COMPREHENSIVE DRUG SCREEN W/O REFLEX 2023-11-10 04:21:00 Alyssia Miranda [facility] CREATINE KINASE 2023-11-10 04:14:00 Alyssia Miranda [facility] THYROID STIMULATING HORMONE 2023-11-10 04:14:00 Alyssia Miranda [facility] COMP. METABOLIC PANEL ([id number]) 2023-11-10 04:14:00 Alyssia Miranda Lea [facility] SALICYLATE 2023-11-10 04:14:00 Alyssia Miranda [facility] ETHANOL 2023-11-10 04:14:00 Ruben Alyssia [facility] CBC WITH DIFF 2023-11-10 04:14:00 Alyssia Miranda [facility] PHOSPHORUS 2023-11-09 10:12:00 Solo Devi [facility] MAGNESIUM 2023-11-09 10:12:00 Marito [facility] HEPATIC FUNCTION PANEL ([id number]) (ALB,T.PRO,BILI T,BU/BC,ALT,AST,ALK PHOS) 2023-11-09 10:12:00 Solo Devi [facility] BASIC METABOLIC PANEL (NA, K, CL, CO2, GLUCOSE, BUN, CREATININE, CA) 2023-11-09 10:12:00 [facility] WITHOUT DIFF 2023-11-09 10:12:00 Solo Devi [facility] PHOSPHORUS 2023-11-08 20:35:00 William [facility] MAGNESIUM 2023-11-08 20:35:00 William [facility] BASIC METABOLIC PANEL (NA, K, CL, CO2, GLUCOSE, BUN, CREATININE, CA) 2023-11-08 20:35:00 William Castorena [facility] CT HEAD WO CONTRAST 2023-11-08 10:42:52 William Castorena [facility] PHOSPHORUS 2023-11-08 08:59:00 Marito [facility] MAGNESIUM 2023-11-08 08:59:00 Marito [facility] VITAMIN B12, LEVEL 2023-11-08 08:59:[address] [facility] FOLATE 2023-11-08 08:59:00 Marito [facility] HEPATIC FUNCTION PANEL ([id number]) (ALB,T.PRO,BILI T,BU/BC,ALT,AST,ALK PHOS) 2023-11-08 08:59:[address] [facility] BASIC METABOLIC PANEL (NA, K, CL, CO2, GLUCOSE, BUN, CREATININE, CA) 2023-11-08 08:59:[address] [facility] CBC WITHOUT DIFF 2023-11-08 08:59:00 Solo Devi [facility] HEPATIC FUNCTION PANEL ([id number]) (ALB,T.PRO,BILI T,BU/BC,ALT,AST,ALK PHOS) 2023-11-07 07:22:[address] [facility] BASIC METABOLIC PANEL (NA, K, CL, CO2, GLUCOSE, BUN, CREATININE, CA) 2023-11-07 07:22:00 Eduar Echevarria [facility] CBC WITH DIFF 2023-11-07 07:22:00 Eduar Echevarria [facility] LACTIC ACID WHOLE BLOOD 2023-11-07 07:22:00 Nichole Castorena mmad [facility] PHOSPHORUS 2023-11-07 00:58:[address] [facility] MAGNESIUM 2023-11-07 00:58:[address] [facility] ACUTE CARE VENOUS BLOOD GAS 2023-11-07 00:57:00 Eduar Echevarria [facility] LACTIC ACID WHOLE BLOOD 2023-11-07 00:57:00 Kev Echevarria [facility] MRSA / MSSA SCREEN BY PCRSIDRA 2023-11-06 21:48:00 Eduar Echevarria [facility] CRITICAL CARE 2023-11-06 20:43:53 Krista Cabrera [facility] POCT TEST 2023-11-06 19:25:00 Madhuri Cabrera [facility] HB ECG ROUTINE & RHYTHM STRIP 2023-11-06 19:10:21 Krista Cabrera [facility] URINALYSIS 2023-11-06 18:51:00 [facility] URINE DRUG (IMMUNOASSAY) - COMPREHENSIVE DRUG SCREEN W/O REFLEX 2023-11-06 18:51:00 Krista Cabrera [facility] LIPASE 2023-11-06 18:43:00 Krista Cabrera [facility] MAGNESIUM 2023-11-06 18:43:00 Krista Cabrera [facility] TROPONIN I 2023-11-06 18:43:00 Krista Cabrera [facility] COMP. METABOLIC PANEL ([id number]) 2023-11-06 18:43:00 Krista Cabrera [facility] ETHANOL 2023-11-06 18:43:00 Krista Cabrera [facility] CBC WITH DIFF 2023-11-06 18:43:00 Kirsta Cabrera [facility] N-TERMINAL PRO-BNP 2023-11-06 18:43:00 Krista Cabrera [facility] AC PANEL 21 + LACTIC ACID 2023-11-06 18:43:00 Krista Cabrera [facility] ETHANOL 2023-10-28 16:15:00 Jonelle Connell [facility] ETHANOL 2023-10-28 11:09:00 Trino Ashford [facility] POCT TEST 2023-10-28 03:42:00 Mia Marroquin ra [facility] COMP. METABOLIC PANEL ([id number]) 2023-10-28 03:27:00 Clementina Marroquin [facility] SALICYLATE 2023-10-28 03:27:00 [facility] 2023-10-28 03:27:00 Clementina Marroquin [facility] CBC WITH DIFF 2023-10-28 03:27:00 [facility] 2023-10-28 03:27:00 [facility] A/B RSV COVID NAAT 2023-10-28 03:27:00 Clementina Marroquin [facility] LAB ONLY COVID INTERPRETATION 2023-10-28 03:27:00 Clementina Marroquin [facility] URINE DRUG (IMMUNOASSAY) - COMPREHENSIVE DRUG SCREEN W/O REFLEX 2023-10-28 03:27:00 Clementina Marroquin [facility] POCT GLUCOSE(AGE >30DAYS) 2023-10-19 15:53:00 Zoë Singletary [facility] POCT GLUCOSE (AUTOMATED) 2023-10-19 15:52:00 Julio Singletary [facility] BASIC METABOLIC PANEL (NA, K, CL, CO2, GLUCOSE, BUN, CREATININE, CA) 2023-09-21 08:28:00 Baldev Braga [facility] PHOSPHORUS 2023-09-20 09:24:00 Solo Devi [facility] LIPASE 2023-09-20 09:24:00 Santosh [facility] MAGNESIUM 2023-09-20 09:24:00 Marito [facility] HEPATIC FUNCTION PANEL ([id number]) (ALB,T.PRO,BILI T,BU/BC,ALT,AST,ALK PHOS) 2023-09-20 09:24:00 Solo Devi [facility] BASIC METABOLIC PANEL (NA, K, CL, CO2, GLUCOSE, BUN, CREATININE, CA) 2023-09-20 09:24:[address] [facility] CBC WITH DIFF 2023-09-20 09:24:00 Solo Devi [facility] PROTHROMBIN TIME / INR 2023-09-20 09:24:00 Santosh [facility] D-DIMER 2023-09-20 09:24[facility] PARTIAL THRMPLAS DAKOTAH 2023-09-20 09:24:00 Santosh [facility] PROCALCITONIN 2023-09-20 09:24:00 Santosh [facility] LACTIC ACID WHOLE BLOOD 2023-09-19 20:59:00 Jose Quintanilla [facility] COVID-19 (ID NOW RAPID TESTING) 2023-09-19 20:58:00 Jose Quintanilla [facility] LAB ONLY COVID INTERPRETATION 2023-09-19 20:58:00 Jose Quintanilla [facility] XR CHEST 1 VW 2023-09-19 17:13:36 Jose Quintanilla [facility] BLOOD CULTURE SCREEN 2023-09-19 17:06:00 Jose Quintanilla [facility] CREATINE KINASE 2023-09-19 17:06:00 [facility] 2023-09-19 17:06:00 Jose Quintanilla [facility] COMP. METABOLIC PANEL ([id number]) 2023-09-19 17:06:00 Jose Quintanilla [facility] CBC WITH DIFF 2023-09-19 17:06:00 Jose Quintanilla [facility] LACTIC ACID WHOLE BLOOD 2023-09-19 17:05:00 Jose Quintanilla [facility] EKG-12 LEAD 2023-09-19 16:54:29 Solo Devi [facility] CT CHEST PULMONARY ANGIOGRAM 2023-09-15 17:19:16 Juan Carlos [facility] POCT TEST 2023-09-15 16:53:00 Viola Rangel [facility] TROPONIN I 2023-09-15 16:49:00 Cecile Rangel [facility] COMP. METABOLIC PANEL ([id number]) 2023-09-15 16:49:00 Cecile Rangel [facility] CBC WITH DIFF 2023-09-15 16:49:00 Cecile Rangel [facility] D-DIMER 2023-09-15 16:49:[facility] 2023-09-15 16:49:00 Cecile Rangel [facility] N-TERMINAL PRO-BNP 2023-09-15 16:49:00 Ria Rangel [facility] LACTIC ACID WHOLE BLOOD 2023-09-15 16:48:00 Vivek Rangel [facility] HB ECG ROUTINE & RHYTHM STRIP 2023-09-15 16:44:45 Cecile Rangel [facility] POCT TEST 2023-09-14 00:14:00 Brenden Olmstead [facility] XR CHEST 2 VW 2023-09-14 00:08:48 Ishan [facility] RAPID STREP SCREEN FOR GROUP A 2023-09-13 23:31:00 Ishan [facility] RAPID INFLUENZA A/B 2023-09-13 23:31:00 Brednen Olmstead [facility] COVID-19 (ID NOW RAPID TESTING) 2023-09-13 23:31:00 [facility] MAGNESIUM 2023-04-27 10:01:00 William Castorena [facility] COMP. METABOLIC PANEL ([id number]) 2023-04-27 10:01:00 William Castorena [facility] CBC WITH DIFF 2023-04-27 10:01:00 [facility] TRANSTHORACIC ECHO (TTE) COMPLETE 2023-04-26 20:20:00 Eduar Echevarria [facility] LIPASE 2023-04-26 11:39:00 William Castorena [facility] MAGNESIUM 2023-04-26 11:39:00 William Castorena [facility] COMP. METABOLIC PANEL ([id number]) 2023-04-26 11:39:00 William Castorena [facility] CBC WITH DIFF 2023-04-26 11:39:00 [facility]R 2023-04-26 11:39:00 Nat Castorena [facility] ACTIVATED PARTIAL THRMPLAS DAKOTAH 2023-04-26 11:39:00 William Castorena [facility] URINE DRUG (IMMUNOASSAY) - COMPREHENSIVE DRUG SCREEN 2023-04-25 10:51:00 William Castorena [facility] LIPASE 2023-04-25 10:46:00 William Castorena [facility] MAGNESIUM 2023-04-25 10:46:00 William Castorena [facility] COMP. METABOLIC PANEL ([id number]) 2023-04-25 10:46:00 William Castorena [facility] CBC WITH DIFF 2023-04-25 10:46:00 [facility] / INR 2023-04-25 10:46:00 Nat Castorena [facility] ACTIVATED PARTIAL THRMPLAS DAKOTAH 2023-04-25 10:46:00 William Castorena [facility] N-TERMINAL PRO-BNP 2023-04-25 10:46:00 William Castorena [facility] LACTIC ACID WHOLE BLOOD 2023-04-25 10:46:00 Nichole Castorena mmad [facility] PHOSPHORUS 2023-04-25 04:50:00 [facility] CT ABDOMEN PELVIS W CONTRAST 2023-04-25 01:17:35 Jose Quintanilla [facility] URINALYSIS 2023-04-24 23:43:00 Jose Quintanilla [facility] POCT TEST 2023-04-24 23:41:00 Jose Quintanilla e [facility] AMMONIA, PLASMA 2023-04-24 23:32:00 Jose [facility] ROUTINE & RHYTHM STRIP 2023-04-24 22:36:50 Jose Quintanilla [facility] LIPASE 2023-04-24 22:23:00 [facility] MAGNESIUM 2023-04-24 22:23:00 [facility] COMP. METABOLIC PANEL ([id number]) 2023-04-24 22:23:00 Jose Quintanilla [facility] ETHANOL 2023-04-24 22:23:00 [facility] CBC WITH DIFF 2023-04-24 22:23:00 Jose Quintanilla Alyssa [facility] PROTHROMBIN TIME / INR 2023-04-24 22:23:00 Jose Quintanilla [facility] ACTIVATED PARTIAL THRMPLAS DAKOTAH 2023-04-24 22:23:00 Jose Quintanilla [facility] CONSENT/REFUSAL FOR DIAGNOSIS AND TREATMENT 2023-04-24 21:03:16 Doctor Unassigned, Higden [facility] XR FOOT 3+ VW LEFT 2022-12-12 14:30:15 Page Roberson [facility] ASSIGNMENT OF BENEFITS 2022-12-12 14:03:23 Docto r Unassigned, Higden [facility] CONSENT/REFUSAL FOR DIAGNOSIS AND TREATMENT 2022-12-12 14:03:11 Doctor Unassigned, Higden [facility] PHOSPHORUS 2022-11-13 10:22:00 Only [facility] MAGNESIUM 2022-11-13 10:22:00 Only [facility] BASIC METABOLIC PANEL (NA, K, CL, CO2, GLUCOSE, BUN, CREATININE, CA) 2022-11-13 10:22:00 Only [facility] CBC WITHOUT DIFF 2022-11-13 10:22:00 Only Jesse [facility] POCT GLUCOSE (AUTOMATED) 2022-11-12 23:12:00 Juan Cardoso [facility] MAGNESIUM 2022-11-12 09:47:00 Myles Santillan [facility] BASIC METABOLIC PANEL (NA, K, CL, CO2, GLUCOSE, BUN, CREATININE, CA) 2022-11-12 09:47:00 Myles Santillan [facility] CBC WITH DIFF 2022-11-12 09:47:00 Myles Santillan [facility] POCT GLUCOSE (AUTOMATED) 2022-11-11 18:34:00 Sadiq Robertson [facility] POCT GLUCOSE (AUTOMATED) 2022-11-11 17:51:00 Sadiq Robertson [facility] POCT GLUCOSE (AUTOMATED) 2022-11-11 12:16:00 Sadiq Robertson [facility] LIPASE 2022-11-11 09:43:00 Isael Olmedo [facility] MAGNESIUM 2022-11-11 09:43:00 Yasir Chaney [facility] COMP. METABOLIC PANEL ([id number]) 2022-11-11 09:43:00 Isael Olmedo [facility] CBC WITH DIFF 2022-11-11 09:43:00 Isael Olmedo [facility] MRSA / MSSA SCREEN BY PCR, SIDRA 2022-11-11 01:32:00 Jeremy Velez [facility] LIPASE 2022-11-10 22:21:00 Adelina Judge [facility] FOLATE 2022-11-10 22:21:00 Isael Olmedo [facility] TEST, SERUM 2022-11-10 22:21:00 Jason Judge [facility] COMP. METABOLIC PANEL ([id number]) 2022-11-10 22:21:00 Adelina Judge [facility] ETHANOL 2022-11-10 22:21:00 Adelina Judge [facility] CBC WITH DIFF 2022-11-10 22:21:00 Adeilna Judge [facility] acute hospital CONSENT/REFUSAL FOR DIAGNOSIS AND TREATMENT 2022-11-10 21:39:27 Doctor Unassigned, Higden [facility] CRITICAL CARE 2022-11-10 21:38:00 Slim Topete [facility] LIPASE 2022-11-07 09:37:00 William Castorena [facility] MAGNESIUM 2022-11-07 09:37:00 William Castorena [facility] HEPATIC FUNCTION PANEL ([id number]) (ALB,T.PRO,BILI T,BU/BC,ALT,AST,ALK PHOS) 2022-11-07 09:37:00 William Castorena [facility] BASIC METABOLIC PANEL (NA, K, CL, CO2, GLUCOSE, BUN, CREATININE, CA) 2022-11-07 09:37:00 William Castorena [facility] LIPID PANEL ([id number])(TOTAL CHOLESTEROL, TRIGLYCERIDES, HDL) 2022-11-07 09:37:00 William Castorena [facility] CBC WITH DIFF 2022-11-07 09:37:00 [facility] / INR 2022-11-07 09:37:00 Nat Castorena [facility] ACTIVATED PARTIAL THRMPLAS DAKOTAH 2022-11-07 09:37:00 William Castorena [facility] US GALL BLADDER 2022-11-06 09:32:53 Carlos A Lopez [facility] CT ABDOMEN PELVIS W CONTRAST 2022-11-06 06:57:00 Zoë Singletary [facility] LIPASE 2022-11-06 06:32:00 Zoë Singletary [facility] COMP. METABOLIC PANEL ([id number]) 2022-11-06 06:32:00 Zoë Singletary [facility] ETHANOL 2022-11-06 06:32:00 Carlos A Lopez [facility] CBC WITH DIFF 2022-11-06 06:32:00 Zoë Singletayr [facility] acute hospital URINALYSIS 2022-11-06 06:18:00 Zoë Singletary [facility] POCT TEST 2022-11-06 06:18:00 Zoë Singletary [facility] CONSENT/REFUSAL FOR DIAGNOSIS AND TREATMENT 2022-11-06 06:01:51 Doctor Unassigned, Higden [facility] POCT TEST 2022-08-28 02:47:00 Nick Best [facility] NOTICE OF PRIVACY PRACTICES 2022-08-28 01:31:41 Doctor Unassigned, Higden [facility] CONSENT/REFUSAL FOR DIAGNOSIS AND TREATMENT 2022-08-28 01:30:51 Doctor Unassigned, Higden [facility] BASIC METABOLIC PANEL (NA, K, CL, CO2, GLUCOSE, BUN, CREATININE, CA) 2022-04-13 00:10:00 Lacey Suggs [facility] CBC WITH DIFF 2022-04-13 00:10:00 Lacey Suggs [facility] acute hospital CONSENT/REFUSAL FOR DIAGNOSIS AND TREATMENT 2022-04-12 21:08:37 Doctor Unassigned, Higden [facility] CONSENT/REFUSAL FOR DIAGNOSIS AND TREATMENT 2022-04-09 05:40:38 Doctor Unassigned, Higden [facility] BASIC METABOLIC PANEL (NA, K, CL, CO2, GLUCOSE, BUN, CREATININE, CA) 2022-04-05 22:24:00 Baldev Alarcon [facility] CBC WITH DIFF 2022-04-05 22:24:00 Baldev Alarcon [facility] CONSENT/REFUSAL FOR DIAGNOSIS AND TREATMENT 2022-04-05 19:50:28 Doctor Unassigned, Higden [facility] POCT Glucose [facility] ECG 12 lead (arrhythmia) [facility] H[facility] EF [facility] Encounters Start Date/Time End Date/Time Encounter Type Admission Type Attending [facility] Care Facility Care Department Encounter ID Source 2023-03-06 08:02:00 [facility] [id number] [facility] 2023-03-05 10:16:00 [facility] [id number] [facility] 2023-03-04 11:18:00 [facility] [id number] [facility] 2022-07-27 10:23:00 Outpatient Shepard, Leander STLMLC STLMLC [id number] [facility] 2022-06-13 14:55:45 Outpatient [facility] [id number] [facility] 2022-05-30 09:48:00 Outpatient Shepard, Leander STLMLC STLMLC [id number] [facility] 2021-11-13 13:38:00 Outpatient Shepard, Leander STLMLC STLMLC [id number] [facility] 2021-11-10 10:45:18 Outpatient CATHIE GONZALEZ [facility] [id number] [facility] 2021-11-09 09:43:50 Outpatient CATHIE GONZALEZ [facility] [id number] [facility] 2021-11-08 16:22:13 Outpatient CATHIE GONZALEZ [facility] [id number] [facility] 2021-05-17 14:17:09 Outpatient Shepard, Leander STLMLC STLMLC [id number] [facility] 2021-05-17 13:50:42 Outpatient Shepard, Leander STLMLC STLMLC [id number] [facility] 2021-05-17 13:50:27 Outpatient Shepard, Leander STLMLC STLMLC [id number] [facility] 2021-05-17 13:28:45 Outpatient Shepard, Leander STLMLC STLMLC [id number] [facility] 2021-05-17 12:51:57 Outpatient Shepard, Leander STLMLC STLMLC [id number] [facility] 2021-05-17 12:45:56 Outpatient Shepard, Leander STLMLC STLMLC [id number] [facility] 2021-05-17 12:39:56 Outpatient Shepard, Leander STLMLC STLMLC [id number] [facility] 2021-05-17 12:39:35 Outpatient Shepard, Leander STLMLC STLMLC [id number] [facility] 2021-05-17 12:38:37 Outpatient Shepard, Leander STLMLC STLMLC [id number] [facility] 2021-05-17 12:33:47 Outpatient Shepard, Leander STLMLC STLMLC [id number] [facility] 2021-05-17 12:32:33 Outpatient Shepard, Leander STLMLC STLMLC [id number] [facility] 2021-05-17 12:29:13 Outpatient Shepard, Leander STLMLC STLMLC [id number] [facility] 2021-05-17 12:25:07 Outpatient Shepard, Leander STLMLC STLMLC [id number] [facility] 2021-05-17 12:24:31 Outpatient Shepard, Leander STLMLC STLMLC [id number] [facility] 2021-05-17 12:07:53 Outpatient Shepard, Leander STLMLC STLMLC [id number] [facility] 2021-05-17 12:07:23 Outpatient Shepard, Leander STLMLC STLMLC [id number] [facility] 2021-05-17 11:59:39 Outpatient Shepard, Leander STLMLC STLMLC [id number] [facility] 2021-05-17 11:37:35 Outpatient Shepard, Leander STLMLC STLMLC [id number] [facility] 2021-05-17 11:16:40 Outpatient Shepard, Leander STLMLC STLMLC [id number] [facility] 2021-05-17 11:10:01 [facility] [id number] [facility] 2021-05-17 11:07:07 [facility] [id number] [facility] 2021-05-17 10:59:13 Outpatient Shepard, [facility] [id number] [facility] 2021-05-17 10:57:50 [facility] [id number] [facility] 2021-02-19 19:59:15 Emergency [facility] [id number] [facility] 2021-02-19 15:25:26 Emergency [facility] [id number] [facility] 2024-04-24 15:27:00 2024-04-25 16:50:00 Inpatient Emergency ERIC PATINO [facility] General Medicine [id number] [facility] 2024-04-24 15:27:00 2024-04-25 16:50:00 Hospital Encounter Jacqueline Jimenez, Nick Pierson, Robert Patino [facility] 1..840.114 350.1.13.70 8.2.7.2.686 [id number] 3 [facility] 2024-04-04 23:07:00 2024-04-05 03:56:00 Emergency X MICHELLE PATIÑO SHINTA [facility] ERT [id number] [facility] 2024-04-04 23:07:00 2024-04-05 03:56:00 Emergency Michelle Patiño [facility] 1..840.114 350.1.13.10 4.2.7.2.[id number] [facility] 2024-03-30 18:37:00 2024-03-30 21:59:00 Emergency X VALERIA HERNANDEZ [facility] E[facility] [id number] [facility] 2024-03-30 18:37:00 2024-03-30 21:59:00 Emergency Valeria Hernandez [facility] 1.2.840.114 350.1.13.10 4.2.7.2.[id number] [facility] 2024-03-30 03:09:00 2024-03-30 03:49:00 Emergency X CLEMENTINA MARROQUIN SANDRA [facility] ERT [id number] [facility] 2024-03-30 03:09:00 2024-03-30 03:49:00 Emergency Clementina Marroquin [facility] 1.2.840.114 350.1.13.10 4.2.7.2.[id number] [facility] 2024-02-13 11:15:00 2024-02-13 11:15:00 Outpatient R CATHIE ROSS [facility] [id number] [facility] 2024-02-06 11:15:00 2024-02-06 11:15:00 Outpatient R CATHIE ROSS [facility] [id number] [facility] 2024-02-05 13:19:03 2024-02-05 23:59:00 Hospital Encounter Cathie Ross [facility] 1.2.840.114 350.1.13.10 4.2.7.2.[id number] [facility] 2024-02-05 13:30:00 2024-02-05 13:37:44 Outpatient R CATHIE ROSS [facility] [id number] [facility] 2024-02-05 13:30:00 2024-02-05 13:37:44 Office Visit Cathie Ross [facility] 1.2.840.114 350.1.13.10 4.2.7.2.[id number] [facility] 2024 14:24:00 2024 16:14:00 Emergency X REJI JOHANSEN KENT [facility] ERT [id number] [facility] 2024 14:24:00 2024 16:14:00 Emergency Reji Johansen [facility] 1.2.840.114 350.1.13.10 4.2.7.2.[id number] [facility] 2024-01-23 11:12:44 2024-01-23 23:59:00 Outpatient O CATHIE ROSS [facility] [id number] [facility] 2024-01-23 11:12:44 2024-01-23 23:59:00 Hospital Encounter Cathie Ross [facility] 1.2.840.114 350.1.13.10 4.2.7.2.[id number] [facility] 2024-01-23 11:15:00 2024-01-23 12:12:25 Office Visit Cathie Ross [facility] 1.2.840.114 350.1.13.10 4.2.7.2.[id number] [facility] 2024-01-06 16:50:10 2024-01-06 16:50:10 Outpatient [facility] [id number] [place] Sainz 2024-01-03 10:37:56 2024-01-03 23:59:00 Outpatient R CATHIE ROSS [facility] [id number] [facility] 2024-01-03 10:37:56 2024-01-03 23:59:00 Hospital Encounter Cathie Ross [facility] 1.2.840.114 350.1.13.10 4.2.7.2.[id number] [facility] 2024-01-03 10:30:00 2024-01-03 11:05:38 Office Visit Cathie Ross [facility] 1.2.840.114 350.1.13.10 4.2.7.2.[id number] [facility] 2023-12-27 15:35:00 2023-12-27 20:32:00 Emergency X KANDY CHAVEZ JOHNNA [facility] ERT [id number] [facility] 2023-12-27 15:35:00 2023-12-27 20:32:00 Emergency Kandy Chavez [facility] [place] 1..840.114 350.1.13.10 4.2.7.2.[id number] [facility] 2023-12-27 10:00:00 2023-12-27 10:00:00 Outpatient R CATHIE ROSSCATHIE [facility] [id number] [facility] 2023-12-16 06:24:00 2023-12-16 08:37:00 Emergency X TRINO ASHFORD WAKILI [facility] ERT [id number] [facility] 2023-12-16 06:24:00 2023-12-16 08:37:00 Emergency Trino Ashford [facility] 1..840.114 350.1.13.10 4.2.7.2.[id number] [facility] 2023-12-08 14:12:00 2023-12-08 17:39:00 Emergency X KRISTA CABRERA DONNELL [facility] ERT [id number] [facility] 2023-12-08 14:12:00 2023-12-08 17:39:00 Emergency Krista Cabrera [facility] 1.2.840.114 350.1.13.10 4.2.7.2.[id number] [facility] 2023-12-05 20:46:00 2023-12-06 09:06:00 Emergency X TYRONE ASHFORDMADELIN RAMOSTRINO MURGUIA [facility] ERT [id number] [facility] 2023-12-05 20:46:00 2023-12-06 09:06:00 Emergency Valeria Hernandez Trino Ashford S [facility] 1.2.840.114 350.1.13.10 4.2.7.2.[id number] [facility] 2023-12-04 21:40:00 2023-12-05 01:00:00 Emergency X MORGAN ASHFORDCIELO RAMOSROSITACARIDADTRINO [facility] ERT [id number] [facility] 2023-12-04 21:40:00 2023-12-05 01:00:00 Emergency Jonelle ConnellTrino murguia S [facility] AT [facility] 1.2.840.114 350.1.13.10 [id number] [facility] 2023-11-22 12:02:00 2023-11-22 16:58:00 Emergency X NBA BALDERAS [facility] ERT [id number] [facility] 2023-11-22 12:02:00 2023-11-22 16:58:00 Emergency Nba Balderas [facility] AT [facility] 1.2.840.114 350.1.13.10 [id number] [facility] 2023-11-11 00:00:00 2023-11-11 09:55:02 Patient Outreach Lauren Cesar 1..840.114 350.1.13.10 4.2.7.2.[id number] [facility] 2023-11-09 22:30:00 2023-11-10 02:12:00 Emergency X DAO GOEL WILLIAM [facility] ERT [id number] [facility] 2023-11-09 22:30:00 2023-11-10 02:12:00 Emergency Alyssia Miranda Dao Bennett [facility] 1..840.114 350.1.13.10 4.2.7.2.[id number] [facility] 2023-11-06 13:20:00 2023-11-09 11:54:00 Inpatient X SOLO DEVI [facility] JENIFFER [id number] [facility] 2023-11-06 13:20:00 2023-11-09 11:54:00 Hospital Encounter Krista Cabrera David Oville, Jelani [facility] 1..840.114 350.1.13.10 4.2.7.2.[id number] [facility] 2023-10-27 22:09:00 2023-10-28 13:11:00 Emergency X JONELLE CONNELL TIMOTHY [facility] ERT [id number] [facility] 2023-10-27 22:09:00 2023-10-28 13:11:00 Emergency Zoë Singletary Timothy [facility] 1..840.114 350.1.13.10 4.2.7.2.[id number] [facility] 2023-10-19 10:39:00 2023-10-19 11:33:00 Emergency X ZOË SINGLETARY PAMALA [facility] ERT [id number] [facility] 2023-10-19 10:39:00 2023-10-19 11:33:00 Emergency Zoë Singletary [facility] 1.2.840.114 350.1.13.10 4.2.7.2.[id number] [facility] 2023-10-18 19:19:00 2023-10-18 21:09:00 Emergency X KRISTA [facility] [id number] [facility] 2023-10-18 19:19:00 2023-10-18 21:09:00 Emergency Krista Cabrera [facility] 1.2.840.114 350.1.13.10 4.2.7.2.[id number] [facility] 2023-09-19 11:52:00 2023-09-21 11:57:00 Inpatient X [facility] JENIFFER [id number] [facility] 2023-09-19 11:52:00 2023-09-21 11:57:00 Hospital Encounter DwightJose hernandezshan [facility] 1.2.840.114 350.1.13.10 4.2.7.2.[id number] [facility] 2023-09-15 11:26:00 2023-09-15 13:28:00 Emergency X CECILE RANGEL [facility] ERT [id number] [facility] 2023-09-15 11:26:00 2023-09-15 13:28:00 Emergency Cecile Rangel [facility] 1.2.840.114 350.1.13.10 4.2.7.2.[id number] [facility] 2023-09-13 18:06:00 2023-09-13 20:03:00 Emergency X ELENO OLMSTEAD SALMIN [facility] ERT [id number] [facility] 2023-09-13 18:06:00 2023-09-13 20:03:00 Emergency Eleno Olmstead [facility] 1.2.840.114 350.1.13.10 4.2.7.2.[id number] [facility] 2023-06-21 00:00:00 2023-06-21 00:00:00 (TEL) STLMLC STLMLC [id number] [facility] 2023-06-21 00:00:00 2023-06-21 00:00:00 (TEL) STLMLC STLMLC [id number] [facility] 2023-06-11 00:00:00 2023-06-11 00:00:00 OFFICE VISIT ESTAB PT LEVEL 3 STLMLC STLMLC [id number] [facility] 2023-05-08 00:00:00 2023-05-08 00:00:00 (TEL) STLMLC STLMLC [id number] [facility] 2023-05-01 00:00:00 2023-05-01 00:00:00 Telephone Reta Leija [facility] 1.2.840.114 350.1.13.10 4.2.7.2.[id number] [facility] 2023-05-01 00:00:00 2023-05-01 00:00:00 Patient Secure Msg Doctor Unassigned, Higden [facility] 1.2.840.114 350.1.13.10 4.2.7.2.[id number] [facility] 2023-04-30 14:00:00 2023-04-30 14:30:10 Outpatient R RETA LEIJA [facility] [id number] [facility] 2023-04-30 14:00:00 2023-04-30 14:30:10 Urgent Care Reta Leija Unknown, Attending [facility] 1.2.840.114 350.1.13.10 4.2.7.2.[id number] [facility] 2023-04-30 00:00:00 2023-04-30 00:00:00 Transition of Care Thelma Slaughter 1.2.840.114 350.1.13.10 4.2.7.2.[id number] [facility] 2023-04-24 15:22:00 2023-04-27 09:58:00 Inpatient X WILLIAM CASTORENA [facility] [id number] [facility] 2023-04-24 15:22:00 2023-04-27 09:58:00 Hospital Encounter Jose Quintanilla Mohammad A. [facility] 1.2.840.114 350.1.13.10 4.2.7.2.[id number] [facility] 2023-03-07 00:00:00 2023-03-07 00:00:00 (TEL) STLMLC STLMLC [id number] [facility] 2023-03-07 00:00:00 2023-03-07 00:00:00 (TEL) STLMLC STLMLC [id number] [facility] 2023-03-06 00:00:00 2023-03-06 00:00:00 OFFICE VISIT ESTAB PT LEVEL 3 STLMLC STLMLC [id number] [facility] 2023-02-06 00:00:00 2023-02-06 00:00:00 (TEL) STLMLC STLMLC [id number] [facility] 2023-01-21 00:00:00 2023-01-21 00:00:00 (TEL) STLMLC STLMLC [id number] [facility] 2023-01-12 02:25:00 2023-01-12 05:16:00 Emergency EM Jacob Jacobs [facility] [id number] 49 [facility] 2023-01-04 00:00:00 2023-01-04 00:00:00 OFFICE VISIT ESTAB PT LEVEL 3 STLMLC STLC [id number] [facility] 2023-01-01 00:00:00 2023-01-01 00:00:00 (TEL) STLC STLC [id number] [facility] 2022-12-12 09:13:33 2022-12-12 23:59:00 Outpatient R PAGE ROBERSON [facility] [id number] [facility] 2022-12-12 09:13:33 2022-12-12 23:59:00 Hospital Encounter Page Roberson [facility] MED[facility] OFFICE BUILDING 1.2.840.114 350.1.13.10 4.2.7.2.[id number] [facility] 2022-12-12 09:00:00 2022-12-12 09:20:00 Urgent Care Page Roberson Unknown, Attending [facility] MED[facility] OFF[facility] BUILDING 1.2.840.114 350.1.13.10 4.2.7.2.[id number] [facility] 2022-12-12 00:00:00 2022-12-12 00:00:00 Orders Only Doctor Unassigned, Higden [facility] 1..840.114 350.1.13.10 4.2.7.2.[id number] [facility] 2022-12-12 00:00:00 2022-12-12 00:00:00 [facility] [id number] [facility] 2022-12-06 00:00:00 2022-12-06 00:00:00 [facility] [id number] [facility] 2022-11-14 00:00:00 2022-11-14 00:00:00 Transition of Care Thelma Slaughter 1.2.840.114 350.1.13.10 4.2.7.2.[id number] [facility] 2022-11-10 16:54:00 2022-11-13 18:24:00 Inpatient X JUAN CHAVEZ [facility] [id number] [facility] 2022-11-10 16:54:00 2022-11-13 18:24:00 Hospital Encounter Adelina Judge, Juan Laguerre [facility] 1..840.114 350.1.13.10 4.2.7.2.[id number] [facility] 2022-11-06 01:11:00 2022-11-07 14:51:00 Outpatient X EDUAR ECHEVARRIA [facility] JENIFFER [id number] [facility] 2022-11-06 01:11:00 2022-11-07 14:51:00 Emergency Zoë Singletary Mohammad A. Morris, David [facility] 1..840.114 350.1.13.10 4.2.7.2.[id number] [facility] 2022-10-30 00:00:00 2022-10-30 00:00:00 OFFICE VISIT ESTAB PT LEVEL 4 STLC STLC [id number] [facility] 2022-10-01 00:00:00 2022-10-01 00:00:00 (TEL) STLC STLC [id number] [facility] 2022-08-27 20:56:00 2022-08-27 22:56:00 Emergency X NICK BEST [facility] ERT [id number] [facility] 2022-08-27 20:56:00 2022-08-27 22:56:00 Emergency Nick Best [facility] 1..840.114 350.1.13.10 4.2.7.2.[id number] [facility] 2022-08-09 00:00:00 2022-08-09 00:00:00 (TEL) STLMLC STLMLC [id number] [facility] 2022-07-31 00:00:00 2022-07-31 00:00:00 OFFICE VISIT ESTAB PT LEVEL 4 STLMLC STLMLC [id number] [facility] 2022-06-01 00:00:00 2022-06-01 00:00:00 OFFICE VISIT ESTAB PT LEVEL 4 STLMLC STLMLC [id number] [facility] 2022-05-21 08:30:00 2022-05-21 08:30:00 Outpatient R RAVINDER FUENTES [facility] [id number] [facility] 2022-05-21 08:30:00 2022-05-21 08:30:00 Outpatient Vivek FUENTES KIRK [facility] [id number] [facility] 2022-05-01 00:00:00 2022-05-01 00:00:00 (TEL) STLMLC STLMLC [id number] [facility] 2022-04-24 00:00:00 2022-04-24 00:00:00 (TEL) STLMLC STLMLC [id number] [facility] 2022-04-12 15:05:00 2022-04-12 19:50:00 Emergency Chula HIGGINS T. [facility] ERT [id number] [facility] 2022-04-12 15:05:00 2022-04-12 19:50:00 Emergency Lacey Suggs [facility] 1..840.114 350.1.13.10 4.2.7.2.[id number] [facility] 2022-04-12 00:00:00 2022-04-12 00:00:00 Telephone Oral Surgery [facility] ARASH MONTY MELARA 1.2.840.114 350.1.13.10 4.2.7.2.[id number] [facility] 2022-04-08 23:47:00 2022-04-09 00:39:00 Emergency X Jose QUINTANILLA [facility] ERT [id number] [facility] 2022-04-08 23:47:00 2022-04-09 00:39:00 Emergency Jose Quintanilla [facility] 1.2.840.114 350.1.13.10 4.2.7.2.[id number] [facility] 2022-04-06 19:08:00 2022-04-06 22:00:00 Emergency Jian Samuel [facility] [id number] 89 [facility] 2022-04-05 14:09:00 2022-04-05 17:11:00 Emergency X BALDEV ALARCON [facility] ERT [id number] [facility] 2022-04-05 14:09:00 2022-04-05 17:11:00 Emergency Baldev Alarcon [facility] 1.2.840.114 350.1.13.10 4.2.7.2.[id number] [facility] 2022-03-02 00:00:00 2022-03-02 00:00:00 OFFICE VISIT ESTAB PT LEVEL 4 [facility] [id number] [facility] 2022-02-28 00:00:00 2022-02-28 00:00:00 [facility] [id number] 2022-01-15 09:00:00 2022-01-15 09:00:00 Outpatient R [facility] [id number] [facility] 2022-01-15 09:00:00 2022-01-15 09:00:00 Outpatient R [facility] [id number] [facility] 2022-01-15 09:00:00 2022-01-15 09:00:00 Outpatient R TREVON CORTES [facility] [id number] [facility] 2022-01-15 09:00:00 2022-01-15 09:00:00 Outpatient R [facility] [id number] [facility] 2022-01-02 00:00:00 2022-01-02 00:00:00 OFFICE VISIT ESTAB PT LEVEL 4 STLMLC STLMLC [id number] [facility] 2021-12-04 12:37:10 2021-12-04 23:59:00 Hospital Encounter Kerrie Judge [facility] 1.2.840.114 350.1.13.10 4.2.7.2.[id number] [facility] 2021-12-04 16:00:00 2021-12-04 16:44:58 Office Visit Shavon JudgeCounts include 234 beds at the [facility]?MORISMichelle [facility] 1.2.840.114 350.1.13.10 4.2.7.2.[id number] [facility] 2021-12-04 16:00:00 2021-12-04 16:44:58 Outpatient R KERRIE JUDGE [facility] [id number] [facility] 2021-12-04 16:00:00 2021-12-04 16:00:00 Outpatient R JUDGE [facility] [id number] [facility] 2021-12-04 00:00:00 2021-12-04 00:00:00 Telephone Cathie Ross [facility] MEDICAL OFFICE BUILDING 1.2.840.114 350.1.13.10 4.2.7.2.[id number] [facility] 2021-12-04 00:00:00 2021-12-04 00:00:00 [facility] 1..840.114 350.1.13.10 4.2.7.2.[id number] [facility] 2021-11-29 15:15:00 2021-11-29 16:25:54 [facility] [place] MEDICAL OFFICE BUILDING 1.840.114 350.1.13.10 4.2.7.2.[id number] [facility] 2021-11-29 15:15:00 2021-11-29 16:25:54 Outpatient R ALFIE [facility] [id number] [facility] 2021-11-29 15:15:00 2021-11-29 15:15:00 Outpatient R ALFIE KERRIE [facility] [id number] [facility] 2021-11-28 00:00:00 2021-11-28 00:00:00 Telephone Cathie Ross [facility] [place]?[facility] MEDICAL OFFICE BUILDING 1..840.114 350.1.13.10 4.2.7.2.[id number] [facility] 2021-11-27 16:15:00 2021-11-27 16:15:00 Outpatient R CATHIE ROSS [facility] [id number] [facility] 2021-11-20 14:45:00 2021-11-20 15:20:56 Outpatient R CATHIE ROSS [facility] [id number] [facility] 2021-11-20 14:45:00 2021-11-20 15:20:56 Office Visit Cathie Ross [facility] [place]?[facility] MEDICAL OFFICE BUILDING 1..840.114 350.1.13.10 4.2.7.2.[id number] [facility] 2021-11-18 12:53:52 2021-11-18 23:59:00 Outpatient R JACQUELINE SHIN [facility] [id number] [facility] 2021-11-18 12:53:52 2021-11-18 23:59:00 Hospital Encounter Jacqueline Shin [facility] 1.84114 350.1.13.10 4.2.7.2.[id number] [facility] 2021-11-18 12:40:00 2021-11-18 13:00:00 Urgent Care Jacqueline Shin Page Roberson [facility] 1.114 350.1.13.10 4.2.7.2.[id number] [facility] 2021-11-18 00:10:00 2021-11-18 00:42:00 Emergency X TRINO ASHFORD [facility] ERT [id number] [facility] 2021-11-18 00:10:00 2021-11-18 00:42:00 Emergency Trino Ashford [facility] .114 350..13.10 4.2.7.2.[id number] [facility] 2021-11-17 00:00:00 2021-11-17 00:00:00 Orders Only Doctor Unassigned, Higden [facility] .114 350.1.13.10 4.2.7.2.[id number] [facility] 2021-11-16 13:30:00 2021-11-16 13:44:47 Office Visit Kerrie Judge [facility] OFF[facility] 1..114 350.1.13.10 4.2.7.2.[id number] [facility] 2021-11-16 13:30:00 2021-11-16 13:44:47 Outpatient R KERRIE JUDGE [facility] [id number] [facility] 2021-11-16 13:30:00 2021-11-16 13:30:00 Outpatient R ALFIE KERRIE [facility] [id number] [facility] 2021-11-15 00:00:00 2021-11-15 00:00:00 Telephone Cathie Ross [facility] 1.2.840.114 350.1.13.10 4.2.7.2.[id number] [facility] 2021-11-13 14:00:00 2021-11-13 14:57:00 Surgery Cathie Ross [facility] 1.2.840.114 350.1.13.10 4.2.7.2.[id number] [facility] 2021-11-13 11:04:00 2021-11-13 14:30:00 Outpatient R CATHIE ROSS [facility] [id number] [facility] 2021-11-13 11:04:00 2021-11-13 14:30:00 Hospital Encounter RossCathie sapp [facility] 1.2.840.114 350.1.13.10 4.2.7.2.[id number] [facility] 2021-11-13 08:00:00 2021-11-13 09:01:53 Outpatient R EDY [facility] [id number] [facility] 2021-11-13 08:00:00 2021-11-13 09:01:53 Office Visit Edy [facility] MEDICAL OFFICE BUILDING 1.2840.114 350.1.13.10 4.2.7.2.[id number] [facility] 2021-11-13 00:00:00 2021-11-13 00:00:00 Telephone Cathie Ross [facility] MEDICAL OFFICE BUILDING 1.2840.114 350.1.13.10 4.2.7.2.[id number] [facility] 2021-11-10 10:43:14 2021-11-10 23:59:00 Hospital Encounter Cathie Ross [facility] 1.2840.114 350.1.13.10 4.2.7.2.[id number] [facility] 2021-11-10 11:15:00 2021-11-10 11:30:00 Publication Designer Visit Pob, Adc Lab Main Cathie Ross [facility] 1.20.114 350.1.13.10 4.2.7.2.[id number] [facility] 2021-11-10 10:38:25 2021-11-10 10:42:00 Outpatient R CATHIE ROSS [facility] [id number] [facility] 2021-11-10 08:30:00 2021-11-10 08:45:00 Laboratory Only Only, Adc Test Cathie Ross [facility] 1.2840.114 350.1.13.10 4.2.7.2.[id number] [facility] 2021-11-10 00:00:00 2021-11-10 00:00:00 Telephone Cathie Ross [facility] MEDICAL OFFICE BUILDING 1.2840.114 350.1.13.10 4.2.7.2.[id number] [facility] 2021-11-10 00:00:00 2021-11-10 00:00:00 (TEL) STLMLC STLMLC [id number] [facility] 2021-11-09 00:00:00 2021-11-09 00:00:00 Telephone Cathie Ross [facility] MEDICAL OFFICE BUILDING 1.2.840.114 350.1.13.10 4.2.7.2.[id number] [facility] 2021-11-09 00:00:00 2021-11-09 00:00:00 Telephone Cathie Ross [facility] [place]?[facility] MEDICAL OFFICE BUILDING 1.2.840.114 350.1.13.10 4.2.7.2.[id number] [facility] 2021-11-08 15:30:00 2021-11-08 15:55:00 Outpatient R CATHIE ROSS [facility] [id number] [facility] 2021-11-08 15:30:00 2021-11-08 15:55:00 Office [facility] MEDICAL OFFICE BUILDING 1.2.840.114 350.1.13.10 4.2.7.2.[id number] [facility] 2021-11-08 00:00:00 2021-11-08 00:00:00 Prep For Surgery Cathie Ross [facility] MEDICAL OFFICE BUILDING 1.2.840.114 350.1.13.10 4.2.7.2.[id number] [facility] 2021-11-07 00:00:00 2021-11-07 00:00:00 (TEL) STLMLC STLC [id number] [facility] 2021-11-03 08:00:00 2021-11-03 08:00:00 Outpatient KERRIE OLIVER [facility] [id number] [facility] 2021-10-30 14:00:00 2021-10-30 14:05:17 Outpatient R PAGE ROBERSON [facility] [id number] [facility] 2021-10-30 14:00:00 2021-10-30 14:05:17 Urgent Care Arash Vu [facility] [place]?[facility] MEDICAL OFFICE BUILDING 1.2.840.114 350.1.13.10 4.2.7.2.[id number] [facility] 2021-10-29 13:44:17 2021-10-29 23:59:00 Outpatient R KARINA GONZALES [facility] [id number] [facility] 2021-10-29 13:44:17 2021-10-29 23:59:00 [id number] 2021-10-29 13:44:17 2021-10-29 23:59:00 [facility] MEDICAL OFFICE BUILDING 1.2.840.114 350.1.13.10 4.2.7.2.[id number] [facility] 2021-10-29 14:40:00 2021-10-29 14:40:00 Urgent Care Cee [facility] G[facility]ON?[facility] MEDICAL OFFICE BUILDING 1.2.840.114 350.1.13.10 4.2.7.2.[id number] [facility] 2021-10-17 00:00:00 2021-10-17 00:00:00 [facility] [id number] [facility] 2021-10-05 00:00:00 2021-10-05 00:00:00 (WELLNESS) Wellness [facility] [id number] [facility] 2021-10-03 00:00:00 2021-10-03 00:00:00 (TEL) STLMLC [facility] [id number] [facility] 2021-10-02 00:00:00 2021-10-02 00:00:00 (TEL) STLMLC ST[facility] [id number] [facility] 2021-08-14 09:30:00 2021-08-14 09:53:56 Nurse Visit Visit, Ang-Rmchp Nurse Trevon Cortes [facility] INFORMATION [facility] 1..840.114 350.1.13.10 4.2.7.2.[id number] [facility] 2021-08-14 09:30:00 2021-08-14 09:30:00 Outpatient R [facility] [id number] [facility] 2021-08-14 09:30:00 2021-08-14 09:30:00 Outpatient R TREVON CORTES [facility] [id number] [facility] 2021-08-07 00:00:00 2021-08-07 00:00:00 [facility]EL[facility] [id number] [facility] 2021-07-17 00:00:00 2021-07-17 00:00:00 Telephone Pratima Wu [facility] INFORMATION [facility] 1..840.114 350.1.13.10 4.2.7.2.[id number] [facility] 2021-07-17 00:00:00 2021-07-17 00:00:00 Orders Only Doctor Unassigned, [place] [facility] 1..840.114 350.1.13.10 4.2.7.2.[id number] [facility] 2021-07-13 09:15:00 2021-07-13 09:58:35 Outpatient R PRATIMA WU [facility] [id number] [facility] 2021-07-13 09:15:00 2021-07-13 09:58:35 Office Visit Pratima Wu [facility] INFORMATION [facility] 1.2.840.114 350.1.13.10 4.2.7.2.[id number] [facility] 2021-07-13 09:15:00 2021-07-13 09:58:35 Outpatient R PRATIMA WU [facility] [id number] [facility] 2021-07-13 00:00:00 2021-07-13 00:00:00 Letter (Out) Pratima Wu [facility] INFORMATION [facility] 1.2.840.114 350.1.13.10 4.2.7.2.[id number] [facility] 2021-07-13 00:00:00 2021-07-13 00:00:00 Telephone Pratima Wu [facility] 1.2.840.114 350.1.13.10 4.2.7.2.[id number] [facility] 2021-07-13 00:00:00 2021-07-13 00:00:00 OFFICE VISIT ESTAB PT LEVEL [address] [facility] [id number] [facility] 2021-07-03 01:43:00 2021-07-03 01:43:00 Outpatient GC_SWHAOMMone_ Wallace_Charisse [facility] [id number] [facility] 2021-06-14 00:00:00 2021-06-14 00:00:00 (TEL) [facility]LMLC ST[facility] [id number] [facility] 2021-06-04 14:00:00 2021-06-04 15:49:40 Outpatient R COSME SANCHEZ [facility] [id number] [facility] 2021-06-04 14:00:00 2021-06-04 14:20:00 Urgent Care Cosme Sanchez Jessica [facility] 1..840.114 350.1.13.10 4.2.7.2.[id number] [facility] 2021-05-19 00:00:00 2021-05-19 00:00:00 OFFICE VISIT EST PT LEVEL 3 STLMLC STLMLC [id number] [facility] 2021-04-12 00:00:00 2021-04-12 00:00:00 Letter (Out) Zakiya Multani [facility] 1.114 350.1.13.10 4.2.7.2.[id number] [facility] 2021-04-11 11:15:00 2021-04-11 11:30:00 Laboratory Only Only, Ang Db Test [facility] 1.84.114 350.1.13.10 4.2.7.2.[id number] [facility] 2021-04-11 11:15:00 2021-04-11 11:15:00 Outpatient R FRANKI [facility] [id number] [facility] 2021-04-11 00:00:00 2021-04-11 00:00:00 Orders Only Doctor Unassigned, Higden [facility] 1.114 350.1.13.10 4.2.7.2.[id number] [facility] 2021-04-08 00:00:00 2021-04-08 00:00:00 Patient Secure Msg Doctor Unassigned, Higden [facility] 1.2.840.114 350.1.13.10 4.2.7.2.[id number] [facility] 2021-03-21 00:00:00 2021-03-21 00:00:00 OFFICE VISIT ESTAB PT [facility]EVEL [address] [facility] [id number] 2021-03-20 00:00:00 2021-03-20 00:00:00 [facility] [id number] [facility] 2021-03-17 00:00:00 2021-03-17 00:00:00 Telephone Jeovany Purvis [facility] 1.2840.114 350.1.13.10 4.2.7.2.[id number] [facility] 2021-03-13 00:00:00 2021-03-13 00:00:00 Telephone YanivJeovany rosales [facility] 1.2840.114 350.1.13.10 4.2.7.2.[id number] [facility] 2021-03-08 00:00:00 2021-03-08 00:00:00 Transition of Care Tiff Funes AYANNAAdilson ATA MELARA 1.2840.114 350.1.13.10 4.2.7.2.[id number] [facility] 2021-03-04 20:45:00 2021-03-07 17:42:00 Inpatient CHAD BALLESTEROS [facility] JENIFFER [id number] [facility] 2021-03-04 20:45:00 2021-03-07 17:42:00 Hospital Encounter Jovi, Chad Ansari Marisabel [facility] 1.2840.114 350.1.13.10 4.2.7.2.[id number] [facility] 2021-03-04 20:45:00 2021-03-07 17:42:00 Inpatient X CHAD MORAN [facility] JENIFFER [id number] [facility] 2021-03-04 11:26:00 2021-03-04 12:01:00 Emergency X CLEMENTINA MARROQUIN [facility] ERT [id number] [facility] 2021-03-04 11:26:00 2021-03-04 12:01:00 Emergency DavidMiara Moss [facility] 1.2.840.114 350.1.13.10 4.2.7.2.[id number] [facility] 2021-02-28 23:10:00 2021-03-03 12:00:00 Outpatient X GOSIA [facility] [id number] [facility] 2021-02-28 23:10:00 2021-03-03 12:00:00 Emergency Baldev Alarcon Jelani [facility] 1.2.840.114 350.1.13.10 4.2.7.2.[id number] [facility] 2021-02-28 23:10:00 2021-03-03 12:00:00 Outpatient X SOLO DEVI [facility] [id number] [facility] 2021-02-28 00:00:00 2021-02-28 00:00:00 (TEL) STLMLC STLMLC [id number] [facility] 2021-01-09 00:00:00 2021-01-09 00:00:00 OFFICE VISIT ESTAB PT LEVEL 4 STLMLC STLMLC [id number] [facility] 2020-11-10 00:00:00 2020-11-10 00:00:00 Outpatient STLMLC STLMLC [id number] [facility] 2020-10-11 00:00:00 2020-10-11 00:00:00 Outpatient STLMLC STLMLC [id number] [facility] 2020-08-18 00:00:00 2020-08-18 00:00:00 Transition of Care Tiff Funes 1.2.840.114 350.1.13.10 4.2.7.2.[id number] [facility] 2020-07-29 00:00:00 2020-07-29 00:00:00 Outpatient STLMLC STLMLC [id number] [facility] 2020-07-18 00:00:00 2020-07-18 00:00:00 Outpatient STLMLC STLMLC [id number] [facility] 2020-07-06 00:00:00 2020-07-06 00:00:00 Outpatient STLMLC STLMLC [id number] [facility] 2020-06-29 00:00:00 2020-06-29 00:00:00 Outpatient STLMLC STLMLC [id number] [facility] 2020-06-23 00:00:00 2020-06-23 00:00:00 Outpatient STLMLC STLMLC [id number] [facility] 2020-06-03 00:00:00 2020-06-03 00:00:00 Outpatient STLMLC STLMLC [id number] [facility] 2020-05-27 00:00:00 2020-05-27 00:00:00 Outpatient STLMLC STLMLC [id number] [facility] 2020-05-11 00:00:00 2020-05-11 00:00:00 Outpatient STLMLC STLMLC [id number] [facility] 2020-04-25 00:00:00 2020-04-25 00:00:00 Outpatient STLMLC STLMLC [id number] [facility] 2020-03-15 00:00:00 2020-03-15 00:00:00 Outpatient STLMLC STLMLC [id number] [facility] 2020-03-14 00:00:2020-03-14 00:00:00 Outpatient STLMLC STLMLC [id number] [facility] 2020-03-07 00:00:00 2020-03-07 00:00:00 Outpatient STLMLC STLMLC [id number] [facility] 2020-03-03 17:00:00 2020-03-03 17:00:00 Outpatient R [facility] [id number] [facility] 2020-03-03 14:36:05 2020-03-03 15:04:47 Urgent Care Provider, [facility] Kelly Perez [facility] 1.2.840.114 350.1.13.10 4.2.7.2.[id number] [facility] 2020-03-03 14:36:05 2020-03-03 15:04:47 Urgent Care Provider, [facility] 1.2.840.114 350.1.13.10 4.2.7.2.686 [id number] 2020-03-02 00:00:00 2020-03-02 00:00:00 Outpatient STLMLC STLMLC [id number] [facility] 2020-02-29 00:00:00 2020-02-29 00:00:00 Outpatient STLMLC STLMLC [id number] [facility] 2020-02-17 00:00:00 2020-02-17 00:00:00 Outpatient STLMLC STLMLC [id number] [facility] 2020-02-16 00:00:00 2020-02-16 00:00:00 Outpatient STLMLC STLMLC [id number] [facility] 2020-01-18 00:00:00 2020-01-18 00:00:00 Outpatient STLMLC STLMLC [id number] [facility] 2019-12-08 16:40:00 2019-12-08 16:40:00 Outpatient R KARINA GONZALES [facility] [id number] [facility] 2019-12-07 14:00:00 2019-12-07 14:00:[address] [facility] [id number] [facility] 2019-12-07 11:54:00 2019-12-07 11:54:00 [address] [facility] [address] [facility] [id number] [facility] 2019-12-03 13:00:00 2019-12-03 13:00:00 [facility] [id number] [facility] 2019-12-03 08:34:00 2019-12-03 08:34:[address] [facility] [address] [facility] [id number] [facility] 2019-12-02 08:44:00 2019-12-02 08:44:00 [address] [facility] [address] [facility] [id number] [facility] 2019-12-01 13:53:00 2019-12-01 13:53:[address] [facility] [address] [facility] [id number] [facility] 2019-11-26 14:00:00 2019-11-26 14:00:00 [facility] [facility] [address] [facility] [id number] [facility] 2019-11-24 00:00:00 2019-11-24 00:00:00 Refill Jennifer Sher [address]840.114 350.1.13.10 4.2.7.2.[id number] [facility] 2019-11-24 00:00:00 2019-11-24 00:00:00 Refill Christos Divyadiya [address]840.114 350.1.13.10 4.2.7.2.686 [id number] 2019-11-18 13:45:00 2019-11-18 13:45:00 Outpatient [facility] Medicine [facility] [id number] [facility] 2019-11-17 10:00:00 2019-11-17 23:59:00 Hospital Encounter Radiology [facility] 1.2.840.114 350.1.13.10 4.2.7.2.[id number] [facility] 2019-11-17 10:00:00 2019-11-17 23:59:00 Hospital Encounter Radiology [facility] 1.2.840.114 350.1.13.10 4.2.7.2.686 [id number] 2019-11-17 00:00:00 2019-11-17 00:00:00 Outpatient R RADIOLOGY [facility] [id number] [facility] 2019-11-17 00:00:00 2019-11-17 00:00:00 Orders Only Doctor Unassigned, Higden [facility] 1.2.840.114 350.1.13.10 4.2.7.2.[id number] [facility] 2019-11-17 00:00:00 2019-11-17 00:00:00 Orders Only Doctor Unassigned, Higden [facility] 1.2.840.114 350.1.13.10 4.2.7.2.686 [id number] 2019-11-16 13:15:00 2019-11-16 13:15:00 Outpatient [facility] Medicine [facility] [id number] [facility] 2019-11-09 15:00:00 2019-11-09 15:00:00 Outpatient R JENNIFER SHER [facility] [id number] [facility] 2019-10-09 11:37:00 2019-10-09 11:37:00 Out[facility] Medicine [id number] [facility] 2019-10-07 11:38:03 2019-10-07 12:05:01 Urgent Care Provider [facility] Kelly Perez [facility] 1.2.840.114 350.1.13.10 4.2.7.2.[id number] [facility] 2019-10-07 11:38:03 2019-10-07 12:05:01 Urgent Care Provider, [facility] 1.2.840.114 350.1.13.10 4.2.7.2.686 [id number] 2019-10-07 11:40:00 2019-10-07 11:40:00 Outpatient Vivek KELLY PEREZ [facility] [id number] [facility] 2019-10-06 00:00:00 2019-10-06 00:00:00 Orders Only Doctor Unassigned, Higden [facility] 1.2.840.114 350.1.13.10 4.2.7.2.[id number] [facility] 2019-10-06 00:00:00 2019-10-06 00:00:00 Orders Only Doctor Unassigned, Higden [facility] 1.2.840.114 350.1.13.10 4.2.7.2.686 [id number] 2019-09-23 13:15:00 2019-09-23 13:15:00 Outpatient [facility] Medicine [facility] [id number] [facility] 2019-09-17 16:41:00 2019-09-17 16:41:00 Outpatient [facility] Medicine [facility] [id number] [facility] 2019-07-27 10:13:00 2019-07-27 10:13:00 Outpatient [facility] [id number] [facility] 2019-07-24 10:00:00 2019-07-24 10:00:[address] [facility] [facility] [id number] [facility] 2019-07-06 08:54:00 2019-07-06 08:54:00 [address] [facility] [address] [facility] [id number] [facility] 2019-06-29 10:28:00 2019-06-29 10:28:[address] [facility] [address] [facility] [id number] [facility] 2019-06-24 14:42:00 2019-06-24 14:42:00 [address] [facility] [address] [facility] [id number] [facility] 2019-06-18 11:23:00 2019-06-18 11:23:00 [facility] [address] [facility] [id number] [facility] 2019-06-18 08:19:00 2019-06-18 08:19:00 [facility] [facility] [address] [facility] [id number] [facility] 2019-06-16 13:45:00 2019-06-16 13:45:00 [address] [facility] [address] [facility] [id number] [facility] 2019-06-11 13:06:23 2019-06-11 16:30:00 Emergency Baldev Alarcon MEMINDY [facility] 1.2.840.114 350.1.13.10 4.2.7.2.[id number] [facility] 2019-06-11 13:06:23 2019-06-11 16:30:00 Emergency X BALDEV ALARCON ERT [id number] [facility] 2019-06-11 13:06:23 2019-06-11 16:30:00 Emergency X BALDEV ALARCON ERT [id number] [facility] 2019-06-11 13:06:23 2019-06-11 16:30:00 Emergency Baldev Alarcon [facility] 1.2.840.114 350.1.13.10 4.2.7.2.686 [id number] 2019-06-07 15:32:13 2019-06-07 16:50:00 Emergency Sabra Sorto [facility] 1.2.840.114 350.1.13.10 4.2.7.2.[id number] [facility] 2019-06-07 15:32:13 2019-06-07 16:50:00 Emergency X SABRA SORTO [facility] ERT [id number] [facility] 2019-06-07 15:32:13 2019-06-07 16:50:00 Emergency X SABRA SORTO [facility] ERT [id number] [facility] 2019-06-07 15:32:13 2019-06-07 16:50:00 Emergency Sabra Sorto [facility] 1.2.840.114 350.1.13.10 4.2.7.2.686 [id number] 2019-06-07 00:00:00 2019-06-07 00:00:00 Orders Only Doctor Unassigned, Higden [facility] 1.2.840.114 350.1.13.10 4.2.7.2.[id number] [facility] 2019-06-07 00:00:00 2019-06-07 00:00:00 Orders Only Doctor Unassigned, Higden [facility] 1.2.840.114 350.1.13.10 4.2.7.2.686 [id number] 2019-06-02 14:30:00 2019-06-02 14:30:00 Outpatient [facility] [id number] [facility] 2019-06-01 13:24:00 2019-06-01 13:24:00 [facility] [id number] [facility] 2019-05-28 18:41:42 2019-05-28 20:29:00 [facility] 1.2.840.114 350.1.13.10 4.2.7.2.[id number] [facility] 2019-05-28 18:41:42 2019-05-28 20:29:00 Emergency [facility] 1.2.840.114 350.1.13.10 4.2.7.2.686 [id number] 2019-05-26 15:00:00 2019-05-26 15:00:00 [facility] [address] [id number] [facility] 2019-04-30 10:17:00 2019-04-30 10:17:00 [facility] [address] [facility] [id number] [facility] 2019-04-30 08:15:00 2019-04-30 08:15:00 [facility] [facility] [address] [facility] [id number] [facility] 2019-04-24 10:15:00 2019-04-24 10:15:00 Out[facility] [address] [facility] [id number] [facility] 2019-03-26 16:00:00 2019-03-26 16:00:00 Out[facility] [address] [facility] [id number] [facility] 2019-02-26 09:01:00 2019-02-26 09:01:00 [facility] [address] [facility] [id number] [facility] 2019-02-13 15:50:00 2019-02-13 15:50:00 [facility] [address] [facility] [id number] [facility] 2019 14:30:00 2019 14:30:00 Outpatient [facility] Medicine [facility] [id number] [facility] 2019-01-02 17:15:03 2019-01-02 19:16:00 Emergency [facility] 1.2.840.114 350.1.13.10 4.2.7.2.[id number] [facility] 2019-01-02 17:15:03 2019-01-02 19:16:00 Emergency [facility] 1.2.840.114 350.1.13.10 4.2.7.2.686 [id number] 2019-01-02 00:00:00 2019-01-02 00:00:00 Orders Only Doctor Unassigned, Higden [facility] 1.2.840.114 350.1.13.10 4.2.7.2.[id number] [facility] 2019-01-02 00:00:00 2019-01-02 00:00:00 Orders Only Doctor Unassigned, Higden [facility] 1.2840.114 350.1.13.10 4.2.7.2.686 [id number] 2018-12-31 14:17:00 2018-12-31 14:17:00 Outpatient [facility] [id number] [facility] 2018-12-29 09:44:07 2018-12-29 09:59:07 Office Visit Eliezer Watts [facility] 1..840.114 350.1.13.10 4.2.7.2.[id number] [facility] 2018-12-29 09:44:07 2018-12-29 09:59:07 Office Visit Eliezer Watts [facility] 1.2.840.114 350.1.13.10 4.2.7.2.686 [id number] 2018-12-29 00:00:00 2018-12-29 00:00:00 [facility] (Out[facility] [place] [employer] [facility] 1.2.840.114 350.1.13.10 4.2.7.2.[id number] [facility] 2018-12-24 16:06:07 2018-12-24 23:59:00 Hospital Encounter Radiology [facility] 1..840.114 350.1.13.10 4.2.7.2.[id number] [facility] 2018-12-24 10:45:00 2018-12-24 10:45:00 [facility] [place] [facility] Medicine [id number] [facility] 2018-12-24 00:00:00 2018-12-24 00:00:00 Orders Only Doctor Unassigned, Higden [facility] 1.2.840.114 350.1.13.10 4.2.7.2.[id number] [facility] 2018-12-09 15:05:00 2018-12-09 15:05:00 [facility] [place] [facility] Medicine [facility] Medicine [id number] [facility] 2018-12-08 13:15:00 2018-12-08 13:15:00 [facility] [address] [facility] [id number] [facility] 2018-11-26 16:19:00 2018-11-26 16:19:00 [facility] [address] [facility] [id number] [facility] 2018-11-18 09:00:00 2018-11-18 09:00:00 [facility] [address] [facility] [id number] [facility] 2018-11-15 13:23:07 2018-11-15 13:57:49 Urgent Care Reji Leahy, Attending [facility] shaina Geller 1.2.840.114 350.1.13.10 4.2.7.2.[id number] [facility] 2018-10-24 16:15:00 2018-10-24 16:15:00 [facility] [address] [facility] [id number] [facility] 2018-10-21 14:30:00 2018-10-21 14:30:00 [facility] [address] [facility] [id number] [facility] 2018-08-22 09:30:00 2018-08-22 09:30:00 [facility] [address] [facility] [id number] [facility] 2018-08-16 11:37:00 2018-08-16 11:37:00 [facility] [address] [facility] [facility] [id number] [facility] 2018-08-14 08:30:00 2018-08-14 08:30:00 [facility] [address] [facility] [id number] [facility] 2018-08-13 15:15:00 2018-08-13 15:15:00 [facility] [id number] [facility] 2018-07-23 15:00:00 2018-07-23 15:00:00 [facility] [facility] [address] [facility] [id number] [facility] 2018-06-23 13:45:00 2018-06-23 13:45:00 [facility] [address] [facility] [place] Medicine [id number] [facility] 2018-06-09 11:19:00 2018-06-09 11:19:00 [facility] [id number] [facility] 2018-06-03 08:02:00 2018-06-03 08:02:00 [facility] [address] [facility] [id number] [facility] 2018-06-02 09:30:00 2018-06-02 09:30:00 Out[facility] [address] [facility] Medicine [id number] [facility] 2018-05-21 15:00:00 2018-05-21 15:00:00 Out[facility] [address] [facility] Medicine [id number] [facility] 2018-05-09 08:22:00 2018-05-09 08:22:00 Out[facility] [address] [facility] Medicine [id number] [facility] 2018-04-24 15:45:00 2018-04-24 15:45:00 Out[facility] [address] [facility] Medicine [id number] [facility] 2018-04-04 09:15:00 2018-04-04 09:15:00 [facility] [address] [facility] Medicine [id number] [facility] 2018-04-02 14:30:00 2018-04-02 14:30:00 [facility] [address] [facility] Medicine [id number] [facility] 2018-01-28 13:00:00 2018-01-28 13:00:00 [facility] [place] [facility] [id number] [facility] Results Test Description Test Time [...] mass effect, or evidence of acute intracranialhemorrhage. [facility] CT Angiogram head 07:37:03 Exam: CT Angiogram [...] mass effect, or evidence of acute intracranialhemorrhage. [facility] XR Chest 1 vw 06:54:39 Study: Single view chest. Ordering Physician: MONICA PATIÑO Date: 04/04/2024 11:30 PM History:ALTERED MENTAL STATUS COMPARISON: None. Findings: Single frontal view chest demonstrates a normal heart size. Thelungs are clear without infiltrate, pleural effusion or pneumothorax. Noacute osseous abnormality is identified. [facility] CT TRAUMA HEAD WO CONTRAST 01:54:54 EXAM: [...] cells are clear. The nasal septumis intact. [facility] CT Maxillofacial/m andible wo contrast 01:54:54 EXAM: [...] cells are clear. The nasal septumis intact. [facility] [id number] 16:05:56EXAM: XR WRIST 3+ VW RIGHT HISTORY: rt wrist fx ? COMPARISON: Right [facility] radi[facility]2023[facility] AmericaPOCT [id number] 20:33:00* Test Item Value Reference Range Interpretation Comme nts POCT PREG (test code = 1605) Negative On board controls acceptable with C Line (test code = 3574) Yes POCT PREG LOT # (test code = 3575) [id number] POCT PREG TEST DATE ( test code = 3576) 03/03/2025 Lab Interpretation (test cod e = 41289-5) [facility] WITH [id number] 20:22:54* Test Item Value Reference Range Interpretation [...] 34.2 g/dL 31.6-35.1 RDW-SD (test code = 66751-9) 41.4 fL 39.0-49.9 RDW-CV (test code = 788-0) 11.9 % 12.0-15.5 L PLT (test code = 777-3) 143 166-358 L MPV (test code = 06951-5) 9.5 fL 9.5-12.9 IPF % (test code = 9639297769) 3.4 % 1.3-7.7 Platelet count measured by fluorescence method. NRBC/100 WBC (test code = 3111706401) 0.0 0.0-10.0 NRBC x10^3 (test code = 0616464441) See_Comment [Automated messa ge] The system which generated this result transmitted reference range: 10*3/?L. The reference range was not used to interpret this result as normal/abnormal. GRAN MAT (NEUT) % (test code = 770-8) 65.3 % IMM GRAN % (test code = 8703126816) 0.40 % LYMPH % (test code = 736-9) 27.2 % MONO % (test code = 5905-5) 6.2 % EOS % (test code = 713-8) 0.5 % BASO % (test code = 706-2) 0.4 % GRAN MAT x10^3(ANC) (test code = 3185504179) 4.96 10*3/uL 1.88-7.09 IMM GRAN x10^3 (test code = 6553298970) 0.03 10*3/uL 0.00-0.06 LYMPH x10^3 (test code = 731-0) 2.07 10*3/uL 1.32-3.29 MONO x10^3 (test code = 742-7) 0.47 10*3/uL 0.33-0.92 EOS x10^3 (test code = 711-2) 0.04 10*3/uL 0.03-0.39 BASO x10^3 (test code = 704-7) 0.03 10*3/uL 0.01-0.07 Lab Interpretation (test code = 57689-5) Abnormal [facility] IrvingETHANOL2024-08-18 20:07:11 ALCOHOL<10mg/dL12/08/2023 3:07 PM [facility]10 Ftttarwq50-139 Toxic>100 Depression of CEMENTER MACHINE JOINER>400 Fatalities ReportedUnSurgery Specialty Hospitals of AmericaMagnesium2024-08-18 20:07:06* Test Item Value Reference Range Interpretation Comme nts MAGNESIUM (test code = 7981828116) 1.1 mg/dL 1.7-2.4 L Lab Interpretation (test cod e = 19316-8) Abnormal [facility] IrvingCOMP. METABOLIC PANEL (21306)2023-12-08 19:58:38* Test Item Value Reference Range Interpretation Comme nts NA (test code = 2998739360) 136 mmol/L 135-145 K (test code = 6623413436) 3.5 mmol/L 3.5-5.0 CL (test code = 1087694252) 97 mmol/L 98-108 L CO2 TOTAL (test code = 1451980433) 28 mmol/L 23-31 AGAP (test code = 0902077725) 11 2-16 BUN (test code = 3126734012) 9 mg/dL 7-23 GLUCOSE (test code = 5865641537) 113 mg/dL 70-110 H CREATININE (test code = 2160-0) 0.52 mg/dL 0.50-1.04 TOTAL BILI (test code = 0908184028) 1.5 mg/dL 0.1-1.1 H CALCIUM (test code = 4981188940) 9.3 mg/dL 8.6-10.6 T PROTEIN (test code = 1820037344) 8.6 g/dL 6.3-8.2 H ALBUMIN (test code = 8329779534) 4.7 g/dL 3.5-5.0 ALK PHOS (test code = 9546741009) 138 U/L 34-122 H ALTv (test code = 1742-6) 32 U/L 5-35 AST(SGOT) (test code = 1323809377) 71 U/L 13-40 H eGFR (test code = 28377-6) 126.0 mL/min/1.73m2 CKD-EPI eGFR (2020). Assuming creatinine has been stable day-to-day for at least three months, the eGFR indicates Category G1 (>= 90 mL/min/1.73 m2) Lab Interpretation (test code = 57427-1) Abnormal [facility] IrvingLIPASE2024-08-18 19:58:18* Test Item Value Reference Range Interpretation Comme nts LIPASE (test code = 6726450968) 122 U/L 0-220 Lab Interpretation (test cod e = 23277-7) Normal [facility] IrvingAC Panel 21 + Lactic Coxy5652-20-36 19:41:27* Test Item Value Reference Range Interpretation Comme nts PH (test code = 9742589273) 7.45 7.32-7.42 H PCO2 TONY (test code = 2588577198) 41 41-51 PO2 TONY (test code = 4451824255) 32 25-40 HCO3 TONY (test code = 8650090055) 28 24-28 AC VBE(BEAKER) (test code = 8441681826) 3.6 mEq/L THB TONY (test code = 4643034651) 12.6 g/dL 12.0-16.0 %O2HB TONY (test code = 3052918252) 61.7 % 52.0-63.0 %COHB TONY (test code = 3581205092) 0.1 % 0.0-1.5 %METHB TONY (test code = 7892970347) 0.5 % 0.4-1.5 VOL%O2 TONY (test code = 0675951262) 10.9 % 6.0-12.0 NA (test code = 8782330054) 138 mmol/L 135-145 K+ (test code = 7694394990) 3.7 mmol/L 3.5-5.0 AC CA IONZ (test code = 1909511065) 4.50 mg/dL 4.50-5.30 GLUCOSE (test code = 9942760732) 101 mg/dL 70-110 LACTIC ACID (test code = 9645183740) 1.63 mmol/L 0.50-2.20 Lab Interpretation (test cod e = 65508-9) Abnormal [facility] IrvingEthanol2024-08-16 09:16:23* Test Item Value Reference Range Interpretation Comme nts ALCOHOL (test code = 9984012636) 186 mg/dL JASMYN (test code = JASMYN) <10 Oqcgfgee81-459 Toxic>100 Depression of CEMENTER MACHINE JOINER>400 Fatalities Reported [facility] IrvingPOCT IQEU4978-04-34 03:09:00* Test Item Value Reference Range Interpretation Comme nts POCT PREG (test code = 1605) Negative On board controls acceptable with C Line (test code = 3574) Yes POCT PREG LOT # (test code = 3575) [id number] POCT PREG TEST DATE ( test code = 3576) 2025-03-03 Lab Interpretation (test cod e = 41238-9) Normal [facility] IrvingTOTAL BHCG (QUANTITATIVE)2023-11-22 18:44:22 BETA HCG<2.39Non- female and male patients: <5 mIU/mL11/22/2023 1:[address] [facility] Gestational Age ?Range (mIU/mL) 1-10 ?Weeks ?04-60967376-87 Weeks ?57353-42233293-62 Weeks ?2527-07665571-66 Weeks ?8390-132853 Biotin has been reported to cause a negative bias, interpret results relative to patient's use of biotin.[facility] TROPONIN [id number] 18:34:01* Test Item Value Reference Range Interpretation Comme nts TROPONIN I (test code = 0303052088) 0.006 ng/mL <=0.034 JASMYN (test code = [...] of biotin. Lab Interpretation (test code = 86733-2) Normal [facility] IrvingCT HEAD WO [id number] 18:28:32FULL RESULT: Examination: CT HEAD WO CONTRAST, [...] no intrinsic bony lesion, fracture or traumatic malalignment.[facility] IrvingCT CERVICAL SPINE WO CONTRAST 2023-11-22 18:28:32FULL RESULT: [...] no intrinsic bony lesion, fracture or traumatic malalignment.[facility] IrvingD-Tqwss9996-70-84 18:25:38* Test Item Value Reference Range Interpretation Comments D-DIMER (test code = 1109345035) 0.36 See_Comment [Automated message] The system which [...] a diagnosis. Lab Interpretation (test code = 83732-1) Normal [facility] IrvingETHANOL2024-08-02 18:23:36 ALCOHOL<10mg/dL11/22/2023 1:23 PM [facility]10 Stphuzbc20-925 Toxic>100 Depression of CEMENTER MACHINE JOINER>400 Fatalities ReportedUnSurgery Specialty Hospitals of AmericaCOMP. METABOLIC PANEL (13987)2023-11-22 18:22:35* Test Item Value Reference Range Interpretation Comme nts NA (test code = 4074697230) 136 mmol/L 135-145 K (test code = 3726575285) 4.4 3.5-5.0 CL (test code = 0755794329) 100 mmol/L 98-108 CO2 TOTAL (test code = 8015666422) 24 mmol/L 23-31 AGAP (test code = 1820744220) 12 2-16 BUN (test code = 1203163029) 18 mg/dL 7-23 GLUCOSE (test code = 1445818319) 89 mg/dL 70-110 CREATININE (test code = 2160-0) 0.71 mg/dL 0.50-1.04 TOTAL BILI (test code = 6241128247) 0.8 mg/dL 0.1-1.1 CALCIUM (test code = 4359916170) 9.4 mg/dL 8.6-10.6 T PROTEIN (test code = 0105724657) 8.0 g/dL 6.3-8.2 ALBUMIN (test code = 3357409655) 4.4 g/dL 3.5-5.0 ALK PHOS (test code = 6882115807) 93 U/L 34-122 ALTv (test code = 1742-6) 32 U/L 5-35 AST(SGOT) (test code = 5402755824) 46 U/L 13-40 H eGFR (test code = 07899-5) 115.3 mL/min/1.73m2 CKD-EPI eGFR (2020). Assuming creatinine has been stable day-to-day for at least three months, the eGFR indicates Category G1 (>= 90 mL/min/1.73 m2) Lab Interpretation (test code = 85990-2) Abnormal [facility] IrvingLIPASE2024-08-02 18:22:15* Test Item Value Reference Range Interpretation Comme nts LIPASE (test code = 8017940077) 75 U/L 0-220 Lab Interpretation (test cod e = 13006-0) Normal [facility] IrvingCB WITH [id number] 18:10:56* Test Item Value Reference Range Interpretation [...] 33.4 g/dL 31.6-35.1 RDW-SD (test code = 35049-1) 48.7 fL 39.0-49.9 RDW-CV (test code = 788-0) 13.1 % 12.0-15.5 PLT (test code = 777-3) 227 166-358 MPV (test code = 41231-2) 10.3 fL 9.5-12.9 NRBC/100 WBC (test code = 4416615647) 0.0 0.0-10.0 NRBC x10^3 (test code = 4350910401) See_Comment [Automated messa ge] The system which generated this result transmitted reference range: 10*3/?L. The reference range was not used to interpret this result as normal/abnormal. GRAN MAT (NEUT) % (test code = 770-8) 72.0 % IMM GRAN % (test code = 3179188416) 0.40 % LYMPH % (test code = 736-9) 13.8 % MONO % (test code = 5905-5) 12.5 % EOS % (test code = 713-8) 0.4 % BASO % (test code = 706-2) 0.9 % GRAN MAT x10^3(ANC) (test code = 8290761958) 5.35 10*3/uL 1.88-7.09 IMM GRAN x10^3 (test code = 6602672159) 0.03 10*3/uL 0.00-0.06 LYMPH x10^3 (test code = 731-0) 1.03 10*3/uL 1.32-3.29 L MONO x10^3 (test code = 742-7) 0.93 10*3/uL 0.33-0.92 H EOS x10^3 (test code = 711-2) 0.03 10*3/uL 0.03-0.39 BASO x10^3 (test code = 704-7) 0.07 10*3/uL 0.01-0.07 Lab Interpretation (test code = 22889-3) Abnormal [facility] IrvingPOCT [id number] 04:25:00* Test Item Value Reference Range Interpretation Comme nts POCT PREG (test code = 1605) Negative On board controls acceptable with C Line (test code = 3574) Yes POCT PREG LOT # (test code = 3575) [id number] POCT PREG TEST DATE ( test code = 3576) 2024-08-29 Lab Interpretation (test cod e = 61216-5) Normal [facility] IrvingVitamin B12, Yavke2213-14-96 19:32:47* Test Item Value Reference Range Interpretation Comme nts VIT B12 (test code = 6056257442) 541 pg/mL 240-930 JASMYN (test code = JASMYN) Biotin has been reported to cause a positive bias, interpret results relative to patient's use of biotin. Lab Interpretation (test code = 86988-4) Normal [facility] IrvingFolate2024-07-19 19:32:47* Test Item Value Reference Range Interpretation Comme nts FOLATE SER (test code = 4381504531) 5.0 ng/mL 3.0-20.0 Biotin has been reported to cause a positive bias, interpret results relative to patient's use of biotin. Lab Interpretation (test code = 17777-9) Normal [facility] IrvingCT HEAD WO SSLREIRC8423-43-18 16:36:26EXAM: CT HEAD WO CONTRAST HISTORY: 33 years-old Female; Provided indication: Headache, new orworsening, neuro deficit (Age 18-49y) . [facility] obtained from [facility]:"Patient admitted for alcohol withdrawal, now with worsening [...] mastoid aircells and visualized paranasal airsinuses are clear.[facility] IrvingMagnesium2024-07-19 10:13:17* Test Item Value Reference Range Interpretation Comme nts MAGNESIUM (test code = 4390224659) 1.6 mg/dL 1.7-2.4 L Lab Interpretation (test cod e = 70760-0) Abnormal [facility] IrvingBasic Metabolic Panel (NA, K, CL, CO2, GLUCOSE, BUN, CREATININE, CA)2023-11-08 10:13:02* Test Item Value Reference Range Interpretation Comme nts NA (test code = 3432807241) 135 mmol/L 135-145 K (test code = 9068883304) 3.2 mmol/L 3.5-5.0 L CL (test code = 7653499333) 98 mmol/L 98-108 CO2 TOTAL (test code = 6054048712) 29 mmol/L 23-31 AGAP (test code = 0109739203) 8 2-16 BUN (test code = 8755340907) 5 mg/dL 7-23 L GLUCOSE (test code = 3184774953) 113 mg/dL 70-110 H CREATININE (test code = 2160-0) 0.50 mg/dL 0.50-1.04 CALCIUM (test code = 6944343594) 8.9 mg/dL 8.6-10.6 eGFR (test code = 51666-7) 127.2 mL/min/1.73m2 CKD-EPI eGFR (2020). Assuming creatinine has been stable day-to-day for at least three months, the eGFR indicates Category G1 (>= 90 mL/min/1.73 m2) Lab Interpretation (test code = 49212-5) Abnormal [facility] IrvingHepatic Function Panel (65197) (ALB,T.PRO,BILI T,BU/BC,ALT,AST,ALK PHOS)2023-11-08 10:13:02* Test Item Value Reference Range Interpretation Comme nts TOTAL BILI (test code = 0463837133) 1.3 mg/dL 0.1-1.1 H BILI UNCON (test code = 9171951847) 0.5 mg/dL 0.1-1.1 BILI CONJ (test code = 8993508056) 0.0 mg/dL 0.0-0.3 T PROTEIN (test code = 3915489314) 7.0 g/dL 6.3-8.2 ALBUMIN (test code = 6701202348) 4.0 g/dL 3.5-5.0 ALK PHOS (test code = 1410987084) 201 U/L 34-122 H ALTv (test code = 1742-6) 111 U/L 5-35 H AST(SGOT) (test code = 5405133582) 426 U/L 13-40 H Lab Interpretation (test cod e = 45335-6) Abnormal [facility] IrvingPhosphorus2024-07-19 10:13:01* Test Item Value Reference Range Interpretation Comme nts PHOSPHORUS (test code = 3050262602) 1.3 mg/dL 2.5-5.0 L Lab Interpretation (test cod e = 08955-0) Abnormal [facility] IrvingCbc without Jizy9001-52-14 09:41:55* Test Item Value Reference Range Interpretation [...] 160 166-358 L MPV (test code = 73809-8) 9.9 fL 9.5-12.9 RDW-CV (test code = 788-0) 13.2 % 12.0-15.5 RDW-SD (test code = 04889-8) 48.1 fL 39.0-49.9 NRBC x10^3 (test code = 3708564248) See_Comment [Automated messa ge] The system which generated this result transmitted reference range: 10*3/?L. The reference range was not used to interpret this result as normal/abnormal. NRBC/100 WBC (test code = 5563051472) 0.0 0.0-10.0 IPF % (test code = 0963750541) Lab Interpretation (test code = 92077-5) Abnormal [facility] IrvingLactic Acid Whole Wnsme1856-50-77 07:27:21* Test Item Value Reference Range Interpretation Comme nts LACTIC ACID (test code = 3241755522) 2.14 mmol/L 0.50-2.20 Lab Interpretation (test cod e = 49577-4) Normal [facility] IrvingAcute Care Venous Blood Nmy8441-08-37 01:17:39 * Test Item Value Reference Range Interpretation Comme nts PH (test code = 3461750918) 7.28 7.32-7.42 L PCO2 TONY (test code = 3809375771) 35 41-51 L PO2 TONY (test code = 4707914622) 32 25-40 HCO3 TONY (test code = 6450140819) 16 24-28 L AC VBE(BEAKER) (test code = 8921234575) -9.8 mEq/L Lab Interpretation (test cod e = 94557-1) Abnormal [facility] IrvingLactic Acid Whole Qgxnc9672-63-02 01:07:01* Test Item Value Reference Range Interpretation Comme nts LACTIC ACID (test code = 7895445470) 3.31 mmol/L 0.50-2.20 H Lab Interpretation (test cod e = 02226-7) Abnormal [facility] IrvingCri[facility] Oqcl3280-04-44 20:43:53Krista Cabrera MD ? ? 11/06/2023 ?3:43 [...] separately billable procedures and treating other patients. [facility] IrvingTROPONIN E2734-11-20 19:33:09* Test Item Value Reference Range Interpretation Comme nts TROPONIN I (test code = 1010831469) 0.004 ng/mL <=0.034 JASMYN (test code = [...] of biotin. Lab Interpretation (test code = 87389-5) Normal [facility] IrvingETHANOL2024-07-17 19:33:09* Test Item Value Reference Range Interpretation Comme nts ALCOHOL (test code = 4449228871) 363 mg/dL JASMYN (test code = JASMYN) <10 Ltcmotwo30-348 Toxic>100 Depression of CEMENTER MACHINE JOINER>400 Fatalities Reported [facility] IrvingN-TERMINAL XKX-UGU8273-65-17 19:30:31* Test Item Value Reference Range Interpretation Comme nts NT-proBNP (test code = 16541-0) 108 pg/mL <=125 Lab Interpretation (test cod e = 46021-1) Normal [facility] IrvingPOCT [id number] 19:25:00* Test Item Value Reference Range Interpretation Comme nts POCT PREG (test code = 1605) Negative On board controls acceptable with C Line (test code = 3574) Yes POCT PREG LOT # (test code = 1519) [id number] POCT PREG TEST DATE ( test code = 3576) 2024-08-27 Lab Interpretation (test cod e = 06067-4) Normal [facility] IrvingMagnesium2024-07-17 19:16:32* Test Item Value Reference Range Interpretation Comme nts MAGNESIUM (test code = 6777368363) 2.2 mg/dL 1.7-2.4 Lab Interpretation (test cod e = 18698-6) Normal [facility] IrvingCOM. METABOLIC PANEL (52116)2023-11-06 19:16:12* Test Item Value Reference Range Interpretation Comme nts NA (test code = 3586482108) 141 mmol/L 135-145 K (test code = 1526678401) 4.3 mmol/L 3.5-5.0 CL (test code = 3877880063) 100 mmol/L 98-108 CO2 TOTAL (test code = 8836080097) 14 mmol/L 23-31 L AGAP (test code = 4941070863) 27 2-16 H BUN (test code = 2793285619) 12 mg/dL 7-23 GLUCOSE (test code = 9929479651) 60 mg/dL 70-110 L CREATININE (test code = 2160-0) 0.68 mg/dL 0.50-1.04 TOTAL BILI (test code = 9374431580) 1.4 mg/dL 0.1-1.1 H CALCIUM (test code = 0607730319) 9.0 mg/dL 8.6-10.6 T PROTEIN (test code = 3546969235) 9.7 g/dL 6.3-8.2 H ALBUMIN (test code = 8281232963) 5.4 g/dL 3.5-5.0 H ALK PHOS (test code = 6040335638) 207 U/L 34-122 H ALTv (test code = 1742-6) 79 U/L 5-35 H AST(SGOT) (test code = 9160697864) 154 U/L 13-40 H eGFR (test code = 62722-2) 118.1 mL/min/1.73m2 CKD-EPI eGFR (2020). Assuming creatinine has been stable day-to-day for at least three months, the eGFR indicates Category G1 (>= 90 mL/min/1.73 m2) Lab Interpretation (test code = 60129-6) Abnormal [facility] IrvingLIPASE2024-07-17 19:15:46* Test Item Value Reference Range Interpretation Comme nts LIPASE (test code = 4172777523) 117 U/L 0-220 Lab Interpretation (test cod e = 54501-9) Normal [facility] IrvingCB WITH BUHF1865-70-41 19:07:27* Test Item Value Reference Range Interpretation [...] 32.3 g/dL 31.6-35.1 RDW-SD (test code = 92901-8) 53.5 fL 39.0-49.9 H RDW-CV (test code = 788-0) 13.9 % 12.0-15.5 PLT (test code = 777-3) 345 166-358 MPV (test code = 57118-0) 9.2 fL 9.5-12.9 L NRBC/100 WBC (test code = 0537964748) 0.0 0.0-10.0 NRBC x10^3 (test code = 6348663039) See_Comment [Automated messa ge] The system which generated this result transmitted reference range: 10*3/?L. The reference range was not used to interpret this result as normal/abnormal. GRAN MAT (NEUT) % (test code = 770-8) 57.5 % IMM GRAN % (test code = 7147629373) 0.90 % LYMPH % (test code = 736-9) 29.1 % MONO % (test code = 5905-5) 10.5 % EOS % (test code = 713-8) 0.0 % BASO % (test code = 706-2) 2.0 % GRAN MAT x10^3(ANC) (test code = 6509125643) 3.65 10*3/uL 1.88-7.09 IMM GRAN x10^3 (test code = 8232410717) 0.06 10*3/uL 0.00-0.06 LYMPH x10^3 (test code = 731-0) 1.85 10*3/uL 1.32-3.29 MONO x10^3 (test code = 742-7) 0.67 10*3/uL 0.33-0.92 EOS x10^3 (test code = 711-2) 0.03-0.39 L BASO x10^3 (test code = 704-7) 0.13 10*3/uL 0.01-0.07 H Lab Interpretation (test code = 12277-5) Abnormal [facility] IrvingAC PANEL 21 + LACTIC QNWO2841-66-39 18:57:00* Test Item Value Reference Range Interpretation Comme nts PH (test code = 1865308411) 7.16 7.32-7.42 LL PCO2 TONY (test code = 7112918110) 37 41-51 L PO2 TONY (test code = 7686502412) 44 25-40 H HCO3 TONY (test code = 8403896552) 13 24-28 L AC VBE(BEAKER) (test code = 8853617351) -15.1 mEq/L THB TONY (test code = 1461376502) 15.7 g/dL 12.0-16.0 %O2HB TONY (test code = 4735198598) 72.1 % 52.0-63.0 H %COHB TONY (test code = 5492692184) 0.4 % 0.0-1.5 %METHB TONY (test code = 5115560831) 0.3 % 0.4-1.5 L VOL%O2 TONY (test code = 6622984174) 15.9 % 6.0-12.0 H NA (test code = 5464424995) 142 mmol/L 135-145 K+ (test code = 1966388000) 4.2 mmol/L 3.5-5.0 AC CA IONZ (test code = 9777869637) 4.90 mg/dL 4.50-5.30 GLUCOSE (test code = 6035104761) 49 mg/dL 70-110 LL LACTIC ACID (test code = 9955591618) 3.62 mmol/L 0.50-2.20 H Lab Interpretation (test cod e = 12073-5) Abnormal [facility] IrvingEthanol2024-07-08 05:06:04* Test Item Value Reference Range Interpretation Comme nts ALCOHOL (test code = 9836390110) 416 mg/dL JASMYN (test code = JASMYN) <10 Wloyoeai13-243 Toxic>100 Depression of CEMENTER MACHINE JOINER>400 Fatalities Reported [facility] IrvingSalicylate2024-07-08 04:57:31 SALICYLATE<10mg/L10/27/2023 11:[address] [facility]ORYTherapeutic Range: ? Analgesic and Antipyretic Use ? 20- 100 mg/L ? ? Anti-Inflammatory Use ?100-250 mg/L Toxic Range: ? Greater than 300 mg/LUnSurgery Specialty Hospitals of AmericaAcetaminophen2024-07-08 04:57:16* Test Item Value Reference Range Interpretation Comme nts ACETAMINOP (test code = 9433430933) 10.0-30.0 L JASMYN (test code = JASMYN) Toxic: Greater coreen n 200 ug/mL @ 4 hour post ingestion or greater than 50 ug/mL @ 12 hour post ingestion Lab Interpretation (test code = 25175-9) Abnormal [facility] IrvingCOM. METABOLIC PANEL (01263)2023-10-28 04:56:21* Test Item Value Reference Range Interpretation Comme nts NA (test code = 7718985658) 143 mmol/L 135-145 K (test code = 6163460090) 4.1 mmol/L 3.5-5.0 CL (test code = 0250974244) 102 mmol/L 98-108 CO2 TOTAL (test code = 0639726282) 27 mmol/L 23-31 AGAP (test code = 9622483653) 14 2-16 BUN (test code = 7431857816) 13 mg/dL 7-23 GLUCOSE (test code = 4293655171) 75 mg/dL 70-110 CREATININE (test code = 2160-0) 0.59 mg/dL 0.50-1.04 TOTAL BILI (test code = 9498994714) 1.2 mg/dL 0.1-1.1 H CALCIUM (test code = 7876132231) 8.9 mg/dL 8.6-10.6 T PROTEIN (test code = 4762977965) 8.4 g/dL 6.3-8.2 H ALBUMIN (test code = 5696593923) 4.6 g/dL 3.5-5.0 ALK PHOS (test code = 5255423041) 169 U/L 34-122 H ALTv (test code = 1742-6) 82 U/L 5-35 H AST(SGOT) (test code = 1212187070) 217 U/L 13-40 H eGFR (test code = 65306-9) 122.2 mL/min/1.73m2 CKD-EPI eGFR (2020). Assuming creatinine has been stable day-to-day for at least three months, the eGFR indicates Category G1 (>= 90 mL/min/1.73 m2) Lab Interpretation (test code = 76831-3) Abnormal [facility] WITH [id number] 03:57:19* Test Item Value Reference Range Interpretation [...] 33.5 g/dL 31.6-35.1 RDW-SD (test code = 05030-1) 55.2 fL 39.0-49.9 H RDW-CV (test code = 788-0) 14.6 % 12.0-15.5 PLT (test code = 777-3) 210 166-358 MPV (test code = 70059-8) 9.3 fL 9.5-12.9 L NRBC/100 WBC (test code = 5014855679) 0.0 0.0-10.0 NRBC x10^3 (test code = 8463179131) See_Comment [Automated messa ge] The system which generated this result transmitted reference range: 10*3/?L. The reference range was not used to interpret this result as normal/abnormal. GRAN MAT (NEUT) % (test code = 770-8) 49.7 % IMM GRAN % (test code = 7775814707) 0.20 % LYMPH % (test code = 736-9) 38.7 % MONO % (test code = 5905-5) 9.4 % EOS % (test code = 713-8) 0.4 % BASO % (test code = 706-2) 1.6 % GRAN MAT x10^3(ANC) (test code = 6070639697) 2.55 10*3/uL 1.88-7.09 IMM GRAN x10^3 (test code = 6442064216) 0.00-0.06 LYMPH x10^3 (test code = 731-0) 1.98 10*3/uL 1.32-3.29 MONO x10^3 (test code = 742-7) 0.48 10*3/uL 0.33-0.92 EOS x10^3 (test code = 711-2) 0.03-0.39 L BASO x10^3 (test code = 704-7) 0.08 10*3/uL 0.01-0.07 H Lab Interpretation (test code = 15856-5) Abnormal [facility] [id number] 03:42:00* Test Item Value Reference Range Interpretation Comme nts POCT PREG (test code = 1605) Negative On board controls acceptable with C Line (test code = 3574) Yes POCT PREG LOT # (test code = 3575) [id number] POCT PREG TEST DATE ( test code = 3576) 08/27/2024 Lab Interpretation (test cod e = 33724-2) Normal [facility] GLUCOSE (AUTOMATED)2023-10-19 15:53:48* Test Item Value Reference Range Interpretation Comme nts POCT GLU (test code = 7569379536) 69 mg/dL 70-110 L Notified Provide r Lab Interpretation (test code = 99841-1) Abnormal [facility] GLUCOSE(AGE >30DAYS)2023-10-19 15:53:00* Test Item Value Reference Range Interpretation Comme nts POCT Glu (age>30days) (test code = 3342) 69 mg/dL, ED provider notified 70-110 Lab Interpretation (test code = 76439-0) [facility] [id number] 21:09:38* Test Item Value Reference Range Interpretation Comme nts LACTIC ACID (test code = 3898881695) 2.03 mmol/L 0.50-2.20 Lab Interpretation (test cod e = 69694-3) Normal [facility] Irving[facility]ase2024-[facility]-30 19:51:22* Test Item Value Reference Range Interpretation Comme nts LIPASE (test code = 9610921054) 317 U/L 0-220 H Lab Interpretation (test cod e = 89309-1) Abnormal [facility] IrvingCbc with Hhjf0218-37-00 18:33:19* Test Item Value Reference Range Interpretation [...] 34.6 g/dL 31.6-35.1 RDW-SD (test code = 72720-1) 46.7 fL 39.0-49.9 RDW-CV (test code = 788-0) 13.2 % 12.0-15.5 PLT (test code = 777-3) 90 166-358 L MPV (test code = 65606-7) 9.6 fL 9.5-12.9 IPF % (test code = 3142748009) 3.9 % 1.3-7.7 Platelet count measured by fluorescence method. NRBC/100 WBC (test code = 4677225476) 0.0 0.0-10.0 NRBC x10^3 (test code = 6733120875) See_Comment [Automated messa ge] The system which generated this result transmitted reference range: 10*3/?L. The reference range was not used to interpret this result as normal/abnormal. GRAN MAT (NEUT) % (test code = 770-8) 68.9 % IMM GRAN % (test code = 0073081892) 1.20 % LYMPH % (test code = 736-9) 20.5 % MONO % (test code = 5905-5) 8.3 % EOS % (test code = 713-8) 0.3 % BASO % (test code = 706-2) 0.8 % GRAN MAT x10^3(ANC) (test code = 9773732679) 4.06 10*3/uL 1.88-7.09 IMM GRAN x10^3 (test code = 8204248664) 0.07 10*3/uL 0.00-0.06 H LYMPH x10^3 (test code = 731-0) 1.21 10*3/uL 1.32-3.29 L MONO x10^3 (test code = 742-7) 0.49 10*3/uL 0.33-0.92 EOS x10^3 (test code = 711-2) 0.03-0.39 L BASO x10^3 (test code = 704-7) 0.05 10*3/uL 0.01-0.07 BANDS (test code = 9490235468) Increased A Lab Interpretation (test code = 73907-1) [facility]normal [facility] IrvingCreatine Ezvlvv4862-02-93 18:21:08* Test Item Value Reference Range Interpretation Comme nts CK (test code = 0835019302) 112 U/L 33-194 Lab Interpretation (test cod e = 78383-7) Normal [facility] IrvingComp. Metabolic Panel (25624)2023-09-19 18:01:22* Test Item Value Reference Range Interpretation Comme nts NA (test code = 8856832151) 139 mmol/L 135-145 K (test code = 9696470626) 3.5 mmol/L 3.5-5.0 CL (test code = 7217900952) 97 mmol/L 98-108 L CO2 TOTAL (test code = 2036954831) 29 mmol/L 23-31 AGAP (test code = 3881642766) 13 2-16 BUN (test code = 6261378338) 14 mg/dL 7-23 GLUCOSE (test code = 0712527590) 116 mg/dL 70-110 H CREATININE (test code = 2160-0) 0.64 mg/dL 0.50-1.04 TOTAL BILI (test code = 9015347155) 1.0 mg/dL 0.1-1.1 CALCIUM (test code = 2491792270) 8.9 mg/dL 8.6-10.6 T PROTEIN (test code = 3310726147) 8.7 g/dL 6.3-8.2 H ALBUMIN (test code = 5722645072) 4.7 g/dL 3.5-5.0 ALK PHOS (test code = 1370017954) 267 U/L 34-122 H ALTv (test code = 1742-6) 63 U/L 5-35 H AST(SGOT) (test code = 7660891660) 277 U/L 13-40 H eGFR (test code = 53541-7) 119.8 mL/min/1.73m2 CKD-EPI eGFR (2020). Assuming creatinine has been stable day-to-day for at least three months, the eGFR indicates Category G1 (>= 90 mL/min/1.73 m2) Lab Interpretation (test code = 09531-9) [facility]normal [facility] IrvingXR CHEST 1 [id number] 17:15:42HISTORY: Tachycardia, cough, COVID. TECHNIQUE: Portable AP upright view of the chest is obtained. Comparisonmade with 09/13/2023 study. FINDINGS: No acute pneumonia. No pneumothorax or pleural effusion orpulmonary congestion detected. Cardiac size is within normal limits. CONCLUSIONS: No signs of acute cardiopulmonary disease. [facility] IrvingLactic Acid Whole Tbhsc8195-21-48 17:11:09* Test Item Value Reference Range Interpretation Comme nts LACTIC ACID (test code = 4181978076) 4.10 mmol/L 0.50-2.20 H Lab Interpretation (test cod e = 15221-7) Abnormal [facility] IrvingCT CHEST PULMONARY DKDPMJDBA3438-89-63 17:58:59Provider: CECILE RANGEL Exam: CT CHEST PULMONARY [...] Within normal limits. Musculoskeletal: No acute bony abnormality.[facility] [id number] 17:47:34* Test Item Value Reference Range Interpretation Comme nts TROPONIN I (test code = 7177824902) 0.003 ng/mL <=0.034 JASMYN (test code = [...] of biotin. Lab Interpretation (test code = 82806-8) Normal [facility] IrvingN-TERMINAL TLO-[id number] 17:45:17* Test Item Value Reference Range Interpretation Comme nts NT-proBNP (test code = 19951-2) 48 pg/mL <=125 Lab Interpretation (test cod e = 13054-2) Normal [facility]. METABOLIC PANEL (06725)2023-09-15 17:36:58* Test Item Value Reference Range Interpretation Comme nts NA (test code = 0796031256) 144 mmol/L 135-145 K (test code = 8721358687) 3.4 mmol/L 3.5-5.0 L CL (test code = 5658565704) 102 mmol/L 98-108 CO2 TOTAL (test code = 4049442661) 33 mmol/L 23-31 H AGAP (test code = 8532219768) 9 2-16 BUN (test code = 3695745959) 7 mg/dL 7-23 GLUCOSE (test code = 5963393607) 91 mg/dL 70-110 CREATININE (test code = 2160-0) 0.63 mg/dL 0.50-1.04 TOTAL BILI (test code = 8959193774) 1.0 mg/dL 0.1-1.1 CALCIUM (test code = 2639298809) 8.5 mg/dL 8.6-10.6 L T PROTEIN (test code = 4710338090) 8.0 g/dL 6.3-8.2 ALBUMIN (test code = 6386107273) 4.2 g/dL 3.5-5.0 ALK PHOS (test code = 0923570840) 182 U/L 34-122 H ALTv (test code = 1742-6) 48 U/L 5-35 H AST(SGOT) (test code = 2787132763) 175 U/L 13-40 H eGFR (test code = 08051-4) 120.3 mL/min/1.73m2 CKD-EPI eGFR (2020). Assuming creatinine has been stable day-to-day for at least three months, the eGFR indicates Category G1 (>= 90 mL/min/1.73 m2) Lab Interpretation (test code = 88634-6) Abnormal [facility] IrvingD-RDMHA7369-45-63 17:13:34* Test Item Value Reference Range Interpretation Comments D-DIMER (test code = 8449153807) 0.93 See_Comment H [Automated message] The system [...] a diagnosis. Lab Interpretation (test code = 24949-6) Abnormal [facility] WITH [id number] 17:06:37* Test Item Value Reference Range Interpretation [...] 34.4 g/dL 31.6-35.1 RDW-SD (test code = 89857-5) 46.2 fL 39.0-49.9 RDW-CV (test code = 788-0) 12.9 % 12.0-15.5 PLT (test code = 777-3) 150 166-358 L MPV (test code = 37394-3) 9.1 fL 9.5-12.9 L NRBC/100 WBC (test code = 1070045812) 0.0 0.0-10.0 NRBC x10^3 (test code = 4217683362) See_Comment [Automated ViewRaya ge] The system which generated this result transmitted reference range: 10*3/?L. The reference range was not used to interpret this result as normal/abnormal. GRAN MAT (NEUT) % (test code = 770-8) 50.9 % IMM GRAN % (test code = 8444131168) 0.50 % LYMPH % (test code = 736-9) 39.0 % MONO % (test code = 5905-5) 7.1 % EOS % (test code = 713-8) 1.0 % BASO % (test code = 706-2) 1.5 % GRAN MAT x10^3(ANC) (test code = 5585435187) 3.02 10*3/uL 1.88-7.09 IMM GRAN x10^3 (test code = 4816379491) 0.03 10*3/uL 0.00-0.06 LYMPH x10^3 (test code = 731-0) 2.31 10*3/uL 1.32-3.29 MONO x10^3 (test code = 742-7) 0.42 10*3/uL 0.33-0.92 EOS x10^3 (test code = 711-2) 0.06 10*3/uL 0.03-0.39 BASO x10^3 (test code = 704-7) 0.09 10*3/uL 0.01-0.07 H Lab Interpretation (test code = 67427-6) Abnormal [facility] IrvingLactic Acid Whole Qpaey5674-91-64 16:57:54* Test Item Value Reference Range Interpretation Comme nts LACTIC ACID (test code = 1065531014) 1.81 mmol/L 0.50-2.20 Lab Interpretation (test cod e = 76623-8) Normal [facility] IrvingPOCT [id number] 16:53:00* Test Item Value Reference Range Interpretation Comme nts POCT PREG (test code = 1605) Negative On board controls acceptable with C Line (test code = 3574) Yes POCT PREG LOT # (test code = 3575) [id number] POCT PREG TEST DATE ( test code = 3576) 08-23-2024 Lab Interpretation (test cod e = 97832-0) Normal [facility] IrvingXR CHEST 2 [id number] 00:39:44Exam: Chest (2 Views), 09/13/2023 6:30 PM. Ordering Physician: ELENO OLMSTEAD. History: fever . Technique: Two views of the chest. Comparison: None. Findings: No focal consolidation. No pneumothorax or effusion. Normal size of thecardiac silhouette. No acute osseous finding.[facility] IrvingPOCT [id number] 00:14:00* Test Item Value Reference Range Interpretation Comme nts POCT PREG (test code = 1605) Negative On board controls acceptable with C Line (test code = 3574) Yes POCT PREG LOT # (test code = 3575) [id number] POCT PREG TEST DATE ( test code = 3576) 05/27/2024 Lab Interpretation (test cod e = 92666-1) Normal [facility] IrvingTransthoracic echo (TTE)2023-04-27 05:37:38* Test Item Value Reference Range Interpretation Comme nts Height (test code = 7414433688) 67 in Weight (test code = 6915545184) 109 lbs Systolic BP (test code = 6806467770) 102 mmHg Diastolic BP (test code = 5221286884) 67 mmHg Heart Rate (test code = 9740247926) 78 bpm BSA (test code = 5638577804) 1.56 m2 Ao root diam (test code = 3163418248) 3.10 cm Aortic root (test code = 2009459568) 3.1 cm Ao root annulus (test code = 9155063537) 3.1 cm LVOT diameter (test code = 6965315058) 2.02 cm LVOT area (test code = 4207524414) 3.20 cm2 LVIDD (test code = 1179238076) 3.60 cm Left Ventricular End Diastolic Volume by Teichholz Method (test code = 4014526) 56.1 mL IVS (test code = 1904556745) 0.63 cm Interventricular Septum Diastolic Thickness by 2D (test code = 1557302) 0.63 cm LVPWD (test code = 2390925273) 0.65 cm PW (test code = 5790646739) 0.65 cm 0.6-1.1 EF(Teich) (test code = 3548302153) 54.30 % LVIDS (test code = 6008165377) 2.60 cm Left Ventricular End Systolic Volume by Teichholz Method (test code = 7710261) 25.6 mL FS (test code = 6155634500) 28 % EF - 2D (test code = 00624286) 54.30 % LA size (test code = 3144289049) 2.8 cm LAV(MOD-sp4) (test code = 6341141729) 25.30 mL E wave decelartion time (test code = 4204264662) 0.19 s MV stenosis pressure 1/2 time (test code = 3975002277) 55.0 ms MV Peak A Liv (test code = 5927886162) 50.8 cm/s MV Peak E Liv (test code = 1596615809) 84.4 cm/s E/A ratio (test code = 3667175572) 1.66 ratio MV Prop V (test code = 6255825316) 37.10 cm/s MV E/e' septal (test code = 8020190492) 22.4 cm/s Tapse (test code = 9259591049) 1.68 cm LVOT stroke volume (test code = 7676843677) 46.00 cm3 LVOT peak liv (test code = 3661938918) 77.0 cm/s LVOT mn grad (test code = 8415173361) 1.3 mmHg AV LVOT peak gradient (test code = 4657053210) 2.37 mmHg LVOT peak VTI (test code = 6107722201) 14.3 cm LV V1 mean (test code = 5420680439) 54.20 cm/s Aortic valve mean velocity (test code = 0599087840) 82.4 cm/s Ao peak liv (test code = 3820524099) 108.4 cm/s Ao VTI (test code = 7711406547) 20.9 cm AV area by cont VTI (test code = 5480197629) 2.2 cm2 AV area peak liv (test code = 9296266550) 2.3 cm2 Ao max PG (test code = 7432096879) 4.70 mm[Hg] AV peak gradient (test code = 1439041395) 4.7 mmHg AV valve area (test code = 8010421689) 2.20 cm2 AV mean gradient (test code = 4449790040) 2.9 mmHg MR max PG (test code = 3370436628) 94.40 mm[Hg] MR max liv (test code = 5707947688) 485.70 cm/s Mr max liv (test code = 6171122942) 485.7 m/s Radiology Study observation (narrative) (test code = 08848-1) JASMYN (test code = JASMYN) ?Left?Ventricle: Left [...] 2D, color flow Doppler and spectral Doppler. [facility] with Hvakxyhfmear8998-23-85 12:37:35* Test Item Value Reference Range Interpretation Comme nts WBC (test code = 6690-2) 3.78 See_Comment L [Automated [employer]] The system which generated this result transmitted reference range: 4.30 - 11.10 10*3/?L. The reference range was not used to interpret this result as normal/abnormal. RBC (test code = 789-8) 2.95 See_Comment L [Automated ViewRaya Fangcang] The system which generated this result transmitted [...] 33.8 g/dL 31.6-35.1 RDW-SD (test code = 45986-0) 45.7 fL 39.0-49.9 RDW-CV (test code = 788-0) 12.6 % 12.0-15.5 PLT (test code = 777-3) 95 See_Comment L [Automated messa ge] The system which generated this result transmitted reference range: 166 - 358 10*3/?L. The reference range was not used to interpret this result as normal/abnormal. MPV (test code = 80642-7) 11.6 fL 9.5-12.9 IPF % (test code = 1780555571) 9.1 % 1.3-7.7 H Platelet count measured by fluorescence method. NRBC/100 WBC (test code = 6667062797) 0.0 See_Comment [Automated Listen Up ssage] The system which generated this result transmitted reference range: 0.0 - 10.0 /100 WBCs. The reference range was not used to interpret this result as normal/abnormal. NRBC x10^3 (test code = 9464004285) See_Comment [Automated messa ge] The system which generated this result transmitted reference range: 10*3/?L. The reference range was not used to interpret this result as normal/abnormal. SEG % (test code = 15450-8) 56 % 33-76 LYMPH % (test code = 53406-8) 32 % 14-54 MONO % (test code = 69098-7) 12 % 0-4 H ANC (test code = 753-4) 2.12 10*3/uL 1.88-7.09 Lab Interpretation (test code = 89279-5) Abnormal [facility] IrvingProthrombin Time / [id number] 11:49:08* Test Item Value Reference Range Interpretation Comme nts PROTIME PATIENT (test code = 5964-2) 15.3 See_Comment H [Automated messa ge] The system which generated this result transmitted reference range: 12.0 - 14.7 Seconds. The reference range was not used to interpret this result as normal/abnormal. INR (test code = 6301-6) 1.2 Normal INR <1.1; Warfarin Therapeutic range 2.0 to 3.0 or 2.5 to 3.5, depending upon the indications. Lab Interpretation (test code = 11778-7) Abnormal [facility] IrvingaPTT2024-01-04 11:49:08* Test Item Value Reference Range Interpretation Comme nts APTT Patient (test code = 3173-2) 29 See_Comment [Automated message] The system which generated this result transmitted reference range: 23 - 38 Seconds. The reference range was not used to interpret this result as normal/abnormal. JASMYN (test code = JASMYN) The [facility] patient population mean normal value for aPTT is 30 seconds. Lab Interpretation (test code = 38774-4) Normal [facility] IrvingComp. Metabolic Panel (43807)2023-04-25 11:44:23* Test Item Value Reference Range Interpretation Comme [facility] NA (test code = 1429365703) 136 mmol/L 135-145 K (test code = 8538157271) 2.6 mmol/L 3.5-5.0 LL CL (test code = 2135318231) 100 mmol/L 98-108 CO2 TOTAL (test code = 0634615853) 30 mmol/L 23-31 AGAP (test code = 2983408846) 6 2-16 BUN (test code = 9314327537) 16 mg/dL 7-23 GLUCOSE (test code = 6370879146) 96 mg/dL 70-110 CREATININE (test code = 4890800333) 0.71 mg/dL 0.50-1.04 TOTAL BILI (test code = 5826259059) 4.0 mg/dL 0.1-1.1 H CALCIUM (test code = 9630613938) 7.5 mg/dL 8.6-10.6 L T PROTEIN (test code = 0347190596) 5.8 g/dL 6.3-8.2 L ALBUMIN (test code = 0254408499) 3.0 g/dL 3.5-5.0 L ALK PHOS (test code = 6168586263) 170 U/L 34-122 H ALTv (test code = 1742-6) 50 U/L 5-35 H AST(SGOT) (test code = 9320839603) 139 U/L 13-40 H eGFR (test code = 84496-9) 115.3 mL/min/1.73m2 CKD-EPI eGFR (2020). Assuming creatinine has been stable day-to-day for at least three months, the eGFR indicates Category G1 (>= 90 mL/min/1.73 m2) Lab Interpretation (test code = 58794-3) Abnormal [facility] IrvingMagnesium Zqgqb4768-72-50 11:43:47* Test Item Value Reference Range Interpretation Comme nts MAGNESIUM (test code = 5614185609) 2.0 mg/dL 1.7-2.4 Lab Interpretation (test cod e = 70335-6) Normal [facility] IrvingN-TERMINAL JIZ-PEG6336-45-04 11:43:47* Test Item Value Reference Range Interpretation Comme nts NT-proBNP (test code = 19496-0) 399 pg/mL <=125 JASMYN (test code = JASMYN) Result Indeterminate-Consid er causes of NT-proBNP elevation other than Heart failure such as acute coronary syndrome, pulmonary embolism, pulmonary hypertension, sepsis, stroke, and renal dysfunction. Lab Interpretation (test code = 34335-9) [facility]normal [facility] IrvingLipase2024-01-04 11:43:47* Test Item Value Reference Range Interpretation Comme nts LIPASE (test code = 4868324119) 475 U/L 0-220 H Lab Interpretation (test cod e = 31840-3) Abnormal [facility] IrvingPhosphorus Zjpio3863-17-50 06:12:16* Test Item Value Reference Range Interpretation Comme nts PHOSPHORUS (test code = 4446435661) 2.0 mg/dL 2.5-5.0 L Slight hemolysis Lab Interpretation (test code = 30944-8) Abnormal [facility] IrvingLipase2024-01-04 04:47:27* Test Item Value Reference Range Interpretation Comme nts LIPASE (test code = 2840891889) 506 U/L 0-220 H Lab Interpretation (test cod e = 31612-2) [facility]normal [facility] IrvingCT ABDOMEN PELVIS W BUPGSYEY6678-46-09 01:43:47History: Abdominal abscess/infection suspected Elevated bilirubin 6.9, [...] obstruction, perforation, or abscess. The osseous structures areunremarkable.[facility] IrvingEthanol2024-01-04 00:23:03 ALCOHOL<10mg/dL04/24/2023 6:23 PM [facility]10 Gxjtyevo15-910 Toxic>100 Depression of CEMENTER MACHINE JOINER>400 Fatalities ReportedUnSurgery Specialty Hospitals of AmericaAmmonia, Wetqxa0635-93-43 23:56:33* Test Item Value Reference Range Interpretation Comme nts AMMONIA (test code = 5666115611) 24 umol/L 9-33 Lab Interpretation (test cod e = 06902-1) Normal [facility] IrvingPOCT Fsil3743-30-28 23:41:00* Test Item Value Reference Range Interpretation Comme nts POCT PREG (test code = 1605) Negative On board controls acceptable with C Line (test code = 3574) Yes POCT PREG LOT # (test code = 3575 782986 POCT PREG TEST DATE ( test code = 3576) 06/30/2024 Lab Interpretation (test cod e = 37591-6) Normal [facility] IrvingMagnesium2024-01-03 23:24:49* Test Item Value Reference Range Interpretation Comme nts MAGNESIUM (test code = 0405930708) 1.4 mg/dL 1.7-2.4 L Lab Interpretation (test cod e = 74592-5) Abnormal [facility]. Metabolic Panel (18796)2023-04-24 23:24:28* Test Item Value Reference Range Interpretation Comme nts NA (test code = 9390839608) 134 mmol/L 135-145 L K (test code = 9449920763) 3.6 mmol/L 3.5-5.0 CL (test code = 5779654507) 91 mmol/L 98-108 L CO2 TOTAL (test code = 9731659520) 31 mmol/L 23-31 AGAP (test code = 2473960669) 12 2-16 BUN (test code = 5739903676) 24 mg/dL 7-23 H GLUCOSE (test code = 7241806925) 104 mg/dL 70-110 CREATININE (test code = 9871024302) 1.13 mg/dL 0.50-1.04 H TOTAL BILI (test code = 6475017864) 6.9 mg/dL 0.1-1.1 H CALCIUM (test code = 8006495888) 9.5 mg/dL 8.6-10.6 T PROTEIN (test code = 5109152189) 8.6 g/dL 6.3-8.2 H ALBUMIN (test code = 1362067746) 4.6 g/dL 3.5-5.0 ALK PHOS (test code = 3691625631) 243 U/L 34-122 H ALTv (test code = 1742-6) 70 U/L 5-35 H AST(SGOT) (test code = 1269071341) 203 U/L 13-40 H eGFR (test code = 20319-0) 66.0 mL/min/1.73m2 CKD-EPI eGFR (2020). Assuming creatinine has been stable day-to-day for at least three months, the eGFR indicates Category G2 (60 - 89 mL/min/1.73 m2) Lab Interpretation (test code = 53961-8) Abnormal [facility] IrvingProthrombin Time / [id number] 23:23:27* Test Item Value Reference Range Interpretation Comme nts PROTIME PATIENT (test code = 5964-2) 15.2 See_Comment H [Automated ViewRaya Fangcang] The system which generated this result transmitted reference range: 12.0 - 14.7 Seconds. The reference range was not used to interpret this result as normal/abnormal. INR (test code = 6301-6) 1.2 Normal INR <1.1; Warfarin Therapeutic range 2.0 to 3.0 or 2.5 to 3.5, depending upon the indications. Lab Interpretation (test code = 72758-6) Abnormal [facility] IrvingActivated Partial Thrmplas [id number] 23:19:26* Test Item Value Reference Range Interpretation Comme nts APTT Patient (test code = 3173-2) 29 See_Comment [Automated message] The system which generated this result transmitted reference range: 23 - 38 Seconds. The reference range was not used to interpret this result as normal/abnormal. JASMYN (test code = JASMYN) The [facility] patient population mean normal value for aPTT is 30 seconds. Lab Interpretation (test code = 23267-9) Normal [facility] IrvingCbc with Brna0183-28-93 23:17:49* Test Item Value Reference Range Interpretation [...] 35.0 g/dL 31.6-35.1 RDW-SD (test code = 63088-1) 44.6 fL 39.0-49.9 RDW-CV (test code = 788-0) 12.4 % 12.0-15.5 PLT (test code = 777-3) 123 See_Comment L [Automated messa ge] The system which generated this result transmitted reference range: 166 - 358 10*3/?L. The reference range was not used to interpret this result as normal/abnormal. MPV (test code = 75095-5) 11.9 fL 9.5-12.9 IPF % (test code = 7115287434) 11.9 % 1.3-7.7 H Platelet count measured by fluorescence method. NRBC/100 WBC (test code = 7885058281) 0.0 See_Comment [Automated me ssage] The system which generated this result transmitted reference range: 0.0 - 10.0 /100 WBCs. The reference range was not used to interpret this result as normal/abnormal. NRBC x10^3 (test code = 3317699159) See_Comment [Automated messa ge] The system which generated this result transmitted reference range: 10*3/?L. The reference range was not used to interpret this result as normal/abnormal. GRAN MAT (NEUT) % (test code = 770-8) 59.8 % IMM GRAN % (test code = 9589503610) 0.30 % LYMPH % (test code = 736-9) 18.1 % MONO % (test code = 5905-5) 20.2 % EOS % (test code = 713-8) 0.5 % BASO % (test code = 706-2) 1.1 % GRAN MAT x10^3(ANC) (test code = 1133957305) 3.87 10*3/uL 1.88-7.09 IMM GRAN x10^3 (test code = 5109484466) 0.00-0.06 LYMPH x10^3 (test code = 731-0) 1.17 10*3/uL 1.32-3.29 L MONO x10^3 (test code = 742-7) 1.31 10*3/uL 0.33-0.92 H EOS x10^3 (test code = 711-2) 0.03 10*3/uL 0.03-0.39 BASO x10^3 (test code = 704-7) 0.07 10*3/uL 0.01-0.07 Lab Interpretation (test code = 89947-4) [facility]normal [facility] IrvingUA RFLX MICR CULT IF VEENKKHRC1384-71-61 04:32:00* Test Item Value Reference Range Interpretation [...] culture: Suprapubic PainSpecimen Description: CLEAN CATCHUR HCG [id number] 04:32:00* Test Item Value Reference Range Interpretation Comme nts UR HCG QUAL (test code = HCGQLU) NEGATIVE 1. Very dilute u rine specimens, as indicated by a lowspecific gravity, may not contain customer field representative levels ofhCG. 2. False negative results may occur when the levels of hCGare below the sensitivity level of the test. If is still suspected, a first morningurine specimen should be collected 48 hours later andtested. Indication for culture: Suprapubic PainSpecimen Description: CLEAN CATCH COMPREHENSIVE METABOLIC [id number] 03:55:00* Test Item Value Reference Range Interpretation [...] ALKP) 173 units/L 46-116 H C REACTIVE LIODEEG3164-16-45 03:55:00* Test Item Value Reference Range Interpretation Comme nts C REACTIVE PROTEIN (test cod e = CRP) 0.30 mg/dL < 0.3 N - CT MAXIFAC W/ZQWRUESI0878-65-87 03:43:00 [facility] 1990 Sex: F Patient Name: ETHEL AMATO Unit No: [id number] EXAMS: CPT CODE: [id number] CT MAXIFAC W/CONTRAST [address] CT MAXILLOFACIAL WITH CONTRAST, 01/12/2023. CLINICAL: Pain. [...] (0343) [id number] [facility] NAME:ETHEL AMATO Radiology Department PHYS: Jacob Gill MD [address] : 1990 AGE: 32 SEX: F [place], [place] [address] LOC: F.ERS PHONE #: [phone] EXAM DATE: 01/12/2023 STATUS: PRE ER FAX #: [phone] RAD NO: Page 1 Signed Report 1 Patient Name: ETHEL AMATO Unit No: [id number] EXAMS: CPT CODE: [id number] CT MAXIFAC W/CONTRAST 16698 (Continued) Orig Print D/T: S: 01/12/2023 (0346) [facility] NAME: ETHEL AMATO Radiology Department PHYS: Jacob Gill MD [address] : 1990 AGE: 32 SEX: F [place], [place] [address] LOC: JENNIFER PHONE #: [phone] EXAM DATE: 01/12/2023 STATUS: PRE ER FAX #: [phone] RAD NO: Page 2 Signed Report 1CBC W/AUTO [id number] 03:29:00* Test Item Value Reference Range Interpretation [...] Comme nts POCT GLU (test code = [id number]) 155 mg/dL 70-110 H Lab Interpretation (test cod e = 04018-1) Abnormal [facility] GLUCOSE (AUTOMATED)2022-11-11 18:35:24* Test Item Value Reference Range Interpretation Comme nts POCT GLU (test code = 7235577075) 126 mg/dL 70-110 H Lab Interpretation (test cod e = 91582-5) Abnormal [facility] GLUCOSE (AUTOMATED)2022-11-11 17:52:07* Test Item Value Reference Range Interpretation Comme nts POCT GLU (test code = 3865657715) 66 mg/dL 70-110 L Lab Interpretation (test cod e = 09887-6) [facility] 14:12:09* Test Item Value Reference Range Interpretation Comme nts MAGNESIUM (test code = 9272858540) 1.7 mg/dL 1.7-2.4 Slight hemolysis Lab Interpretation (test code = 68771-5) Normal [facility] GLUCOSE (AUTOMATED)2022-11-11 12:23:05* Test Item Value Reference Range Interpretation Comme nts POCT GLU (test code = 5364091625) 59 mg/dL 70-110 L Lab Interpretation (test cod e = 05479-8) Abnormal [facility] WITH [id number] 11:41:02* Test Item Value Reference Range Interpretation [...] 32.6 g/dL 31.6-35.1 RDW-SD (test code = 54266-2) 44.8 fL 39.0-49.9 RDW-CV (test code = 788-0) 11.5 % 12.0-15.5 L PLT (test code = 777-3) 158 See_Comment L [Automated messa ge] The system which generated this result transmitted reference range: 166 - 358 10*3/?L. The reference range was not used to interpret this result as normal/abnormal. MPV (test code = 19094-6) 10.3 fL 9.5-12.9 NRBC/100 WBC (test code = 1169907934) 0.0 See_Comment [Automated me ssage] The system which generated this result transmitted reference range: 0.0 - 10.0 /100 WBCs. The reference range was not used to interpret this result as normal/abnormal. NRBC x10^3 (test code = 5463937576) See_Comment [Automated messa ge] The system which generated this result transmitted reference range: 10*3/?L. The reference range was not used to interpret this result as normal/abnormal. SEG % (test code = 63482-7) 37 % 33-76 BAND % (test code = 71660-0) 1 % 0-1 LYMPH % (test code = 00259-7) 42 % 14-54 MONO % (test code = 01295-0) 19 % 0-4 H EOS % (test code = 89645-5) 1 % 0-3 ANC (test code = 753-4) 1.24 10*3/uL 1.88-7.09 L Lab Interpretation (test code = 59256-4) [facility] 10:28:35* Test Item Value Reference Range Interpretation Comme nts LIPASE (test code = 2129903102) 745 U/L 0-220 H Lab Interpretation (test cod e = 13659-1) [facility] METABOLIC PANEL (87667)2022-11-11 10:28:35* Test Item Value Reference Range Interpretation Comme nts NA (test code = 4844722940) 138 mmol/L 135-145 K (test code = 0880438996) 3.0 mmol/L 3.5-5.0 L Slight hemolysis CL (test code = 8146529061) 113 mmol/L 98-108 H CO2 TOTAL (test code = 9232626876) 17 mmol/L 23-31 L AGAP (test code = 7176034576) 8 2-16 BUN (test code = 5432366640) 13 mg/dL 7-23 Slight hemolysis GLUCOSE (test code = 1480897971) 39 mg/dL 70-110 LL CREATININE (test code = 4822024511) 0.38 mg/dL 0.50-1.04 L TOTAL BILI (test code = 8880807290) 1.3 mg/dL 0.1-1.1 H CALCIUM (test code = 5377654861) 7.1 mg/dL 8.6-10.6 L T PROTEIN (test code = 1750872102) 5.1 g/dL 6.3-8.2 L ALBUMIN (test code = 7614805391) 2.5 g/dL 3.5-5.0 L ALK PHOS (test code = 9506561572) 80 U/L 34-122 Slight hemolysis ALTv (test code = 1742-6) 23 U/L 5-35 AST(SGOT) (test code = 6359908284) 56 U/L 13-40 H Slight hemolysis eGFR (test code = 7836362324) 196.3 mL/min/1.73m2 JASMYN (test code = JASMYN) [...] imaging tests). Lab Interpretation (test code = 89353-6) [facility] 08:25:59* Test Item Value Reference Range Interpretation Comme nts FOLATE SER (test code = 3772337770) 17.6 ng/mL 3.0-20.0 Biotin has been reported to cause a positive bias, interpret results relative to patient's use of biotin. Lab Interpretation (test code = 86479-0) Normal [facility]2023-07-22 22:46:37 ALCOHOL<10mg/dL11/10/2022 5:46 PM CDTUTMB LABORATORY SERVICESToxic Greater than or equal to 80 mg/dL. NOTE: Whole blood values are approximately 10% to 15% lower than serum and plasma.[facility] MET[facility]OLIC PANEL (32892)2022-11-10 22:45:51* Test Item Value Reference Range Interpretation Comme nts NA (test code = 5795703567) 145 mmol/L 135-145 K (test code = 4628197589) 3.6 mmol/L 3.5-5.0 CL (test code = 3459374850) 104 mmol/L 98-108 CO2 TOTAL (test code = 4975917973) 29 mmol/L 23-31 AGAP (test code = 9214562662) 12 2-16 BUN (test code = 6474895858) 20 mg/dL 7-23 GLUCOSE (test code = 4349616626) 75 mg/dL 70-110 CREATININE (test code = 7365740957) 0.62 mg/dL 0.50-1.04 TOTAL BILI (test code = 3607198092) 1.6 mg/dL 0.1-1.1 H CALCIUM (test code = 1333560040) 9.8 mg/dL 8.6-10.6 T PROTEIN (test code = 6792091821) 7.5 g/dL 6.3-8.2 ALBUMIN (test code = 3586505714) 4.4 g/dL 3.5-5.0 ALK PHOS (test code = 4475612873) 142 U/L 34-122 H ALTv (test code = 1742-6) 33 U/L 5-35 AST(SGOT) (test code = 4695957287) 65 U/L 13-40 H eGFR (test code = 7866350114) 111.6 mL/min/1.73m2 JASMYN (test code = JASMYN) [...] imaging tests). Lab Interpretation (test code = 02420-3) [facility]normal [facility] 22:45:51* Test Item Value Reference Range Interpretation Comme nts LIPASE (test code = 4067280167) 1920 U/L 0-220 H Lab Interpretation (test cod e = 82093-3) Abnormal [facility]PREG[facility]NC[facility] TEST, [id number] 22:44:22* Test Item Value Reference Range Interpretation Comme nts PREG SERUM (test code = 7702367856) Negative JASMYN (test code = JASMYN) Less than 10 IU/L. ?If low titer or ectopic is suspected, resubmit specimen in 48-72 hours. [facility] WITH [id number] 22:37:30* Test Item Value Reference Range Interpretation Comme nts WBC (test code = 6690-2) 5.72 See_Comment [Automated [employer]] The system which generated this result transmitted reference range: 4.30 - 11.10 10*3/?L. The reference range was not used to interpret this result as normal/abnormal. RBC (test code = 789-8) 3.93 See_Comment [Automated [employer]] The system which generated this result transmitted [...] 32.6 g/dL 31.6-35.1 RDW-SD (test code = 35892-7) 44.8 fL 39.0-49.9 RDW-CV (test code = 788-0) 11.8 % 12.0-15.5 L PLT (test code = 777-3) 255 See_Comment [Automated messa ge] The system which generated this result transmitted reference range: 166 - 358 10*3/?L. The reference range was not used to interpret this result as normal/abnormal. MPV (test code = 91671-3) 9.9 fL 9.5-12.9 NRBC/100 WBC (test code = 9076128665) 0.0 See_Comment [Automated [employer] ssage] The system which generated this result transmitted reference range: 0.0 - 10.0 /100 WBCs. The reference range was not used to interpret this result as normal/abnormal. NRBC x10^3 (test code = 7223519014) See_Comment [Automated messa ge] The system which generated this result transmitted reference range: 10*3/?L. The reference range was not used to interpret this result as normal/abnormal. GRAN MAT (NEUT) % (test code = 770-8) 63.5 % IMM GRAN % (test code = 2828621097) 0.30 % LYMPH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
[2024-05-27] MEDS ORDERED: CEPHALEXIN 250 MG CAP ONE (02:18)
[2024-05-27] MEDS ORDERED: ACETAMINOPHEN 500 MG TAB ONE (02:18)
[2024-05-27] MEDS ORDERED: BUPIVACAINE 0.5% PF 10 ML VIAL ONE (02:18)
[2024-05-27] MEDS ORDERED: KETOROLAC 30 MG/ML INJ ONE (02:19)
[2024-05-27 03:02] LABS: Specific Gravity 1.008 (1.005-1.030)
[2024-05-27] MEDS ORDERED: ONDANSETRON 4 MG/2 ML VIAL ONE (04:33)
[2024-05-27] MEDS ORDERED: LORazepam 2 MG/ML VIAL ONE (04:33)
--- NOTE | 2024-05-27 05:47 | ER ---
Nurse's Notes [facility] Name: Ethel Amato Age: 34 yrs Sex: Female : 1990 Arrival Date: 05/27/2024 Time: 01:27 Bed 6 Private MD: Diagnosis: Dental root caries;Encounter for screening for dental disorders;Acute pulpitis tooth # 15 , Extensive dental decay left upper quadrant, Acute Dental Pain Presentation: 05/27 01:42 Chief complaint: Patient states: I have not been feeling right since mar 29 . My mouth bm8 on the left side is not right. Coronavirus screen: Vaccine status: Patient reports receiving the 2nd dose of the covid vaccine. At this time, the client does not indicate any symptoms associated with coronavirus-19. Ebola Screen: Patient negative for fever greater than or equal to 101.5 degrees Fahrenheit, and additional compatible Ebola Virus Disease symptoms Patient denies exposure to infectious person. Patient denies travel to an Ebola-affected area in the 21 days before illness onset. No symptoms or risks identified at this time. Initial Sepsis Screen: Does the patient meet any 2 criteria? HR > 90 bpm. Does the patient have a suspected source of infection? No. Patient's initial sepsis screen is negative. Risk Assessment: Do you want to hurt yourself or someone else? Patient reports no desire to harm self or others. Onset of symptoms was March 29, 2024. Care prior to arrival: Medication(s) given: Toradol 15 mg IV IV initiated. 20 GA, in the right antecubital area. 01:42 Method Of Arrival: EMS: [facility] bm8 01:42 Acuity: APOLINAR 3 bm8 Triage Assessment: 01:46 General: Appears in no apparent distress. comfortable, Behavior is cooperative, bm8 appropriate for age, anxious. Pain: Complains of pain in upper left central incisor, upper left lateral incisor, upper left cuspid, upper left first bicuspid, upper left second bicuspid and upper left first molar Pain currently is 7 out of 10 on a pain scale. EENT: No deficits noted. No signs and/or symptoms were reported regarding the EENT system. Neuro: No deficits noted. Level of Consciousness is awake, alert, obeys commands, Oriented to person, place, time, situation, Appropriate for age. Cardiovascular: Denies chest pain, Heart tones S1 S2 present Capillary refill < 3 seconds in bilateral toes Patient's skin is warm and dry. Respiratory: Airway is patent Trachea midline Respiratory effort is even, unlabored, Respiratory pattern is regular, symmetrical, Breath sounds are clear bilaterally. GI: No signs and/or symptoms were reported involving the gastrointestinal system. : No signs and/or symptoms were reported regarding the genitourinary system. Derm: No signs and/or symptoms reported regarding the dermatologic system. Musculoskeletal: Swelling present in left cheek and left jaw. 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 - Infectious Disease History:: Denies. - Social history:: Smoking status: Patient denies any tobacco usage or history of. Patient uses alcohol, Patient/guardian denies using street drugs. - Family history:: not pertinent. Screenin:52 [facility] ED Fall Risk Assessment (Adult) History of falling in the last 3 months, bm8 including since admission No falls in past 3 months (0 pts) Confusion or Disorientation No (0 pts) Intoxicated or Sedated No (0 pts) Impaired Gait No (0 pts) Mobility Assist Device Used No (0 pt) Altered Elimination No (0 pt) Score/Fall Risk Level 0 - 2 = Low Risk Oriented to surroundings, Maintained a safe environment, Educated pt \T\ family on fall prevention, incl call for assistance when getting out of bed, Assessed \T\ reinforced patient's understanding of fall precautions, Hourly rounding (assess needs \T\ fall precautionary measures) done, Used ambulatory aids as needed (educated on \T\ assisted with), Used gait belt as appropriate. Abuse screen: Denies threats or abuse. Nutritional screening: No deficits noted. Tuberculosis screening: No symptoms or risk factors identified. Assessment: :52 Reassessment: see triage assessment. bm8 03:32 Reassessment: Patient appears in no apparent distress at this time. Patient and/or bm8 family updated on plan of care and expected duration. Pain level reassessed. Patient is alert, oriented x 3, equal unlabored respirations, skin warm/dry/pink. pt is resting with eyes closed breathing is even unlabored with symmetrical rise and fall. 04:39 Reassessment: pt reported that she was about to start alcohol withdrawals. Provider bm8 informed and new orders recieved. General: Appears uncomfortable, Behavior is anxious. Pain: Complains of pain in face. Neuro: No deficits noted. Level of Consciousness is awake, alert, obeys commands, Oriented to person, place, time, situation, Appropriate for age. Cardiovascular: Capillary refill < 3 seconds in bilateral fingers Patient's skin is warm and dry. Respiratory: Airway is patent Respiratory effort is even, unlabored, Respiratory pattern is regular, symmetrical, Breath sounds are clear bilaterally. GI: Reports nausea. 06:02 Reassessment: Patient appears in no apparent distress at this time. Patient and/or bm8 family updated on plan of care and expected duration. Pain level reassessed. Patient is alert, oriented x 3, equal unlabored respirations, skin warm/dry/pink. Patient denies pain at this time. Patient states feeling better. Patient states symptoms have improved. Vital Signs: 01:42 BP 142 / 100; Pulse 113; Resp 19; Temp 98.7; Pulse Ox 99% ; Weight 54.43 kg; Height 5 bm8 ft. 7 in. ; Pain 7/10; 03:32 BP 116 / 86; Pulse 89; Resp 18; Temp 98.7; Pulse Ox 98% ; Pain 4/10; bm8 04:39 BP 118 / 92; Pulse 94; Resp 16; Temp 98.7; Pulse Ox 99% ; Pain 5/10; bm8 06:02 BP 117 / 92; Pulse 105; Resp 18; Temp 98.7; Pulse Ox 100% ; Pain 0/10; bm8 01:42 Body Mass Index 18.79 (54.43 kg, 170.18 cm) 8 01:42 Pain Scale: Adult bm8 03:32 Pain Scale: Adult bm8 04:39 Pain Scale: Adult bm8 06:02 Pain Scale: Adult bm8 [place] Score: 01:52 Eye Response: spontaneous(4). Motor Response: obeys commands(6). Verbal Response: bm8 oriented(5). Total: 15. 03:32 Eye Response: spontaneous(4). Motor Response: obeys commands(6). Verbal Response: bm8 oriented(5). Total: 15. 04:39 Eye Response: spontaneous(4). Motor Response: obeys commands(6). Verbal Response: bm8 oriented(5). Total: 15. 06:02 Eye Response: spontaneous(4). Motor Response: obeys commands(6). Verbal Response: bm8 oriented(5). Total: 15. 21:59 Eye Response: spontaneous(4). Motor Response: obeys commands(6). Verbal Response: sp4 oriented(5). Total: 15. ED Course: 01:28 Patient arrived in ED. lg3 01:41 Vikas Mojica, RN is Primary Nurse. bm8 01:46 Triage completed. bm8 01:52 Arm band placed on right wrist. bm8 01:52 Patient has correct armband on for positive identification. Placed in gown. Bed in low bm8 position. Call light in reach. Side rails up X 1. Adult w/ patient. Client placed on continuous cardiac and pulse oximetry monitoring. NIBP monitoring applied. engine monitor on. Pulse ox on. NIBP on. Noise minimized. Warm blanket given. Pillow given. Verbal reassurance given. Head of bed elevated. 01:52 No provider procedures requiring assistance completed. Maintain EMS IV. Dressing bm8 intact. Good blood return noted. Site clean \T\ dry. Gauge \T\ site: 20g. Flushed with 10 mL NS. 02:02 Manolo Dos Santos MD is Attending Physician. sp4 06:02 Provided Education on: post er care, follow up with dentist. bm8 06:02 IV discontinued, intact, bleeding controlled, No redness/swelling at site. Pressure bm8 dressing applied. Administered Medications: 02:27 Drug: Ketorolac IM 60 mg IM once Route: IM; Site: right ventrogluteal; bm8 04:39 Follow up: Response: No adverse reaction bm8 02:27 Drug: Acetaminophen PO 1000 mg PO once Route: PO; bm8 04:38 Follow up: Response: No adverse reaction bm8 02:27 Drug: Cephalexin PO 500 mg PO once Route: PO; bm8 04:38 Follow up: Response: No adverse reaction bm8 04:38 Drug: Ondansetron IVP 4 mg IVP once; over 2 minutes Route: IVP; Site: right antecubital;bm8 05:32 Follow up: Response: No adverse reaction bm8 04:38 Drug: Ativan IVP 2 mg IVP once Route: IVP; Site: right antecubital; bm8 05:32 Follow up: Response: No adverse reaction bm8 05:32 Drug: Bupivacaine Infiltration (0.5 %) 10 ml 10 ml Infiltration once {Note: by bm8 provider.} Volume: 10 ml; Route: Infiltration; Site: affected area; 06:03 Follow up: Response: No adverse reaction bm8 Medication: 01:52 VIS not applicable for this client. bm8 Outcome: 05:47 Discharge ordered by . fide 06:02 Discharged to home ambulatory, bm8 06:02 Condition: stable 06:02 Discharge instructions given to patient, Instructed on discharge instructions, follow up and referral plans. Demonstrated understanding of instructions, follow-up care, medications, Prescriptions given X 3, 06:04 Patient left the ED. bm8 Signatures: Ethel Barrios RN RN lg3 Manolo Dos Santos MD MD sp4 Vikas Mojica RN RN bm8
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
[2024-05-27 06:18] VITALS: TEMP 98.7
[2024-05-27 06:28] VITALS: BP 117/92; O2SAT 100
== END 2024-05-27 06:04 | disposition home or self-care (01) ==
LOC: ER 01:27
DX: K02.7 Dental root caries (principal); K04.01 Reversible pulpitis; Z13.84 Encounter for screening for dental disorders
CPT/HCPCS: 81025; J2405

== ENCOUNTER 2024-06-02 19:33 | Emergency (ER) | payer OTHER ==
--- OUTSIDE RECORDS SUMMARY | 2024-06-02 19:46 | XMS REPORT | Continuity of Care Document ---
Author Name Unknown Address [address] [facility] [address] [place] [address] [facility] thconnect Address [address] [facility] [address] [place] [address] Care Team Providers Care Vocational Rehabilitation Technician Name Role Phone Devyn STUBBS, [facility] Primary Care Physician + ShepardLeander Attending Clinician Unavailable CATHIE ROSS Attending Clinician Unavailyfn Jimenez MD, Jacqueline Hilton Attending Clinician [phone] Stephanie STUBBS, Marguerite Mauricio Attending Clinician + [phone] Kenna STUBBS, Robert Paiz Attending Clinician [phone] Rebeca STUBBS, Eric Attending Clinician +[phone] ERIC PATINO Attending Clinician Unavailable MICHELLE PATIÑO Attending Clinician Unavailable MICHELLE PATIÑO Attending Clinician Unavailable Haroon POLICE SERVICE TECHNICIANMichelle Kim Attending Clinician +[phone] VALERIA HERNANDEZ Attending Clinician Unavaila Valeria Love Attending Clinician + [phone] CLEMENTINA MARROQUIN Attending Clinician Unavailab CLEMENTINA Tang Attending Clinician Unavailab Clementina Tang DO Attending Clinician +[phone] CATHIE ROSS Attending Clinician UnavailCathie Tomas MD Attending Clinician [phone] JAYDEN JOHANSEN Attending Clinician Unavailable JAYDEN JOHANSEN Attending Clinician Unavailable Jayden Johansen MD Attending Clinician [phone] KANDY CHAVEZ Attending Clinician Unavailable KANDY CHAVEZ Attending Clinician Unavailable Kandy Sanchez Attending Clinician + [phone] LORENZO ASHFORD Attending Clinician Unavailable LORENZO ASHFORD Attending Clinician Unavailable Lorenzo Ashford MD Attending Clinician + [phone] KRISTA CABRERA Attending Clinician Unavailable KRISTA CABRERA Attending Clinician Unavailable Krista Cabrera MD Attending Clinician [phone] Jonelle Connell DO Attending Clinician +[phone] NBA BALDERAS Attending Clinician Unavailab Lauren Davila MA Attending Clinician Un available VALERIO LOWE Attending Clinician Unavailable VALERIO LOWE Attending Clinician Unavailable Ruben STUBBS, Alyssia Tate Attending Clinician + PHILLIP DEVI Attending Clinician Unavailable Eduar Echevarria DO Attending Clinician +[phone] Phillip Devi MD Attending Clinician +[phone] JONELLE CONNELL Attending Clinician Unavailable JONELLE CONNELL Attending Clinician Unavailable Zoë Singletary NP Attending Clinician + [phone] ZOË SINGLETARY Attending Clinician Unavailable Jose Domínguez Attending Clinician +[phone] CECILE RANGEL Attending Clinician Unavailable Juan Carlos POLICE SERVICE TECHNICIANCecile Kim Attending Clinician [phone] ELENO OLMSTEAD Attending Clinician Unavailable ELENO OLMSTEAD Attending Clinician Unavailable Adrian Tapia Attending Clinician +[phone] Doctor Unassigned, [place] Attending Clinician U navailable ADRIAN LEIJA Attending Clinician Unavailable Unknown, Attending Attending Clinician Unavailab Thelma Hernandez LVN Attending Clinician + [phone] WILLIAM CASTORENA. Attending Clinician Unavailyfn Castorena MD, William Nolasco Attending Clinician [phone] Jacob Jacobs Attending Clinician UnavailALMA ROSA Abdul Attending Clinician Unavailable Da STUBBS, Alma Rosa Attending Clinician +[phone] JUAN CHAVEZ Attending Clinician Unavail able Adelina Judge MD Attending Clinician + [phone] Mitch Robertson MD Attending Clinician [phone] Juan Chavez MD Attending Clinician [phone] EDUAR ECHEVARRIA Attending Clinician Unavailable MARGUERITE BEST T Attending Clinician Unavailable EstephaniaMarguerite Trimble T Attending Clinician +[phone] RAVINDER FUENTES Attending Clinician Unavailable Chula NAVARRETE Attending Clinician Unavailable Chula NAVARRETE Attending Clinician Unavailable Lacey Suggs MD Attending Clinician + [phone] Oral Surgery, Oral Attending Clinician Unavailab Jose Loredo Attending Clinician Unavailable Jian Salvador Attending Clinician Unavailable ALARCON, LENORE S Attending Clinician Unavailable Alarcon PAC, Lenore S Attending Clinician +[phone] CORTESDURGA Parmar R Attending Clinician Unavailab orly Judge PAC, Kerrie S Attending Clinician +[phone] KERRIE JUDGE Attending Clinician Unavailable Yunior STUBBS, Cathie Mirza Attending Clinician + [phone] JACQUELINE SHIN Attending Clinician Unavailable Shin POLICE SERVICE TECHNICIAN, Jacqueline Attending Clinician +[phone] Edy STUBBS, Afaq Attending Clinician [phone] Pob, [facility] Main Attending Clinician Unavailabl e Only, Adc Test Attending Clinician Unavailable Horace POLICE SERVICE TECHNICIAN, Arash Attending Clinician [phone] KARINA GONZALES Attending Clinician Unavailable Ebjody POLICE SERVICE TECHNICIAN, Karina Attending Clinician [phone] Visit, Ang-Rmp Nurse Attending Clinician Unava ilable Anmol POLICE SERVICE TECHNICIAN, Durga Doyle Attending Clinician + [phone] Akinsihanna WHCNP, Pratima Shore Attending Clinician + AKINSIPRATIMA HAIDER Attending Clinician Unavail able GC_SWHAOMC_[place]_G Attending Clinician Unavail able MARY MARIE Attending Clinician Unava ilable Ryan POLICE SERVICE TECHNICIAN, Mary Attending Clinician + Nerissa HOFF, Zakiya Sanders Attending Clinician Unavailab le Only, Ang Db Test Attending Clinician Unavailyfn Doan POLICE SERVICE TECHNICIAN, Miley Attending Clinician [phone] MILEY DOAN Attending Clinician Unavailable Julisa Purvis DO Attending Clinician +[phone] Marin HOFF, Tiff Moreno Attending Clinician +[phone] CAMILO MORAN Attending Clinician Unavailyfn Espana MD, [place] Damian Attending Clinician + [phone] Camilo Moran MD Attending Clinician [phone] Karina STUBBS, Marisabel Attending Clinician [phone] Provider, [facility] Attending Clinician Un available Kelly Cooley Attending Clinician +[phone] Jennifer Sher MD Attending Clinician [phone] Radiology Attending Clinician Unavailable RADIOLOGY Attending Clinician Unavailable JENNIFER SHER Attending Clinician Unavailable KELLY PEREZ Attending Clinician Unavailable Shola CASTANEDA, Sabra Attending Clinician [phone] SABRA SORTO Attending Clinician Unavailable Carrington CASTANEDA, Brandi Casanova Attending Clinician +[phone] Eliezer Watts MD Attending Clinician +[phone] Jayden Leahy MD Attending Clinician +[phone] CATHIE ROSS Admitting Clinician UnavailRobert Garrett MD Admitting Clinician +[phone] ROBERT PAIZ Admitting Clinician Unavail able MICHELLE PATIÑO Admitting Clinician Unavailable VALERIA HERNANDEZ Admitting Clinician Unavaila KANDY Blackman Admitting Clinician Unavailable LORENZO ASHFORD Admitting Clinician Unavailable NBA BALDERAS Admitting Clinician Unavailab EDUAR So Admitting Clinician Unavailable Eduar Echevarria DO Admitting Clinician +[phone] PHILLIP DEVI Admitting Clinician Unavailable Phillip Devi MD Admitting Clinician +[phone] CECILE RANGEL Admitting Clinician Unavailable ELENO OLMSTEAD Admitting Clinician Unavailable WILLIAM CASTORENA Admitting Clinician UnavailWilliam Serrano MD Admitting Clinician +[phone] Arnol Gonsalez Admitting Clinician Unavailab MITCH Arteaga Admitting Clinician Unavailable Mitch Robertson MD Admitting Clinician +[phone] MARGUERITE BEST Admitting Clinician Unavailable LACEY SUGGS Admitting Clinician Unavailable Cathie Ross MD Admitting Clinician +[phone] SANGITA_YANNA_Wallace_Charisse Admitting Clinician Unavail able MARISABEL COLLINS Admitting Clinician Unavailable Marisabel Collins MD Admitting Clinician +[phone] LENORE ALARCON Admitting Clinician Unavailable SABRA SORTO Admitting Clinician Unavailable Payers Payer Name Policy Type Policy Number Effective Date Expirati on Date Source [employer] MEDICAID [id number] 2016 00:00:00 [place] [facility] [id number] 2024 00:00:00 [place] [id number] 2023 00:00:00 [facility] [id number] 2022 00:00:00 2023 00:00:00 [facility] [id number] 2019 00:00:00 [facility] [id number] 2019 00:00:00 [facility] [id number] 2019 00:00:00 [facility] [id number] 2019 00:00:00 [facility] Problems Condition Name Condition Details Condition Category Status Onset Date Resolution Date Last Treatment Date Treating Clinician Comments Source Elevated LFTs Elevated LFTs Disease Active 04-25 00:00: 00 [facility] UTI (urinary tract infection) UTI (urinary tract infection) Disease Active 04-25 00:00: 00 [facility] Alcohol withdrawal , uncomplica colleen Alcohol withdrawal , uncomplica colleen Disease Active 04-25 00:00: 00 [facility] Acute pancreatit is Acute pancreatit is Disease Active 04-25 00:00: 00 [facility] Hypertensi on Hypertensi on Disease Active 04-25 00:00: 00 [facility] Alcohol withdrawal syndrome without complicati on Alcohol withdrawal syndrome without complicati on Disease Active -17 00:00: 00 [facility] Nausea and vomiting, unspecifie d vomiting type Nausea and vomiting, unspecifie d vomiting type Disease Active -30 00:00: 00 [facility] Alcohol withdrawal syndrome, with delirium Alcohol withdrawal syndrome, with delirium Disease Active - 00:00: 00 [facility] E44.0 Moderate protein calorie malnutriti on E44.0 Moderate protein calorie malnutriti on Disease Active 7-24 00:00: 00 [facility] Alcohol abuse Alcohol abuse Disease Active 7-22 00:00: 00 [facility] Flank pain Flank pain Disease Active 7-18 00:00: 00 [facility] Closed dislocatio n of fifth metacarpal bone of right hand Closed dislocatio n of fifth metacarpal bone of right hand Disease Active 11-08 00:00: 00 Overview: Formattin g of this note might be different from the original. Added automatic ally from request for surgery [id number] [facility] Closed dislocatio n of fifth metacarpal bone of right hand Closed dislocatio n of fifth metacarpal bone of right hand Disease Active 11-08 00:00: 00 Overview: Formattin g of this note might be different from the original. Added automatic ally from request for surgery [id number] [facility] Other general counseling and advice for contracept luna management Other general counseling and advice for contracept luna management Disease Active 24 00:00: 00 [facility] Underweigh t Underweigh t Disease Active 07-13 00:00: 00 [facility] History of anorexia nervosa History of anorexia nervosa Disease Active 24 00:00: 00 Overview: Formattin g of this note might be different from the original. Reports currently see therapist [facility] Alcohol withdrawal syndrome with perceptual disturbanc e Alcohol withdrawal syndrome with perceptual disturbanc e Disease Active 2020-04-13 00:00: 00 [facility] Hypokalemi a Hypokalemi a Disease Active 2020-04- 00:00: 00 [facility] ETOH abuse ETOH abuse Disease Active 08-16 00:00: 00 [facility] E46 Unspecifie d severe protein-ca evette malnutriti on E46 Unspecifie d severe protein-ca evette malnutriti on Disease Active 08-16 00:00: 00 [facility] H/O hernia repair H/O hernia repair Disease Active 08-21 00:00: 00 [facility] Hiatal hernia Hiatal hernia Disease Active 08-21 00:00: 00 [facility] [id number] History of alcohol abuse Problem [facility] [id number] Tobacco use disorder Problem [facility] [id number] Constipati on, unspecifie d constipati on type Problem [facility] [id number] Allergic rhinitis, unspecifie d seasonalit y, unspecifie d trigger Problem [facility] [id number] Mass of chest wall Problem [facility] Attention deficit hyperactiv ity disorder, predominan tly inattentiv e type Attention deficit hyperactiv ity disorder (ADHD), predominan tly inattentiv e type Problem [facility] [id number] GERD without esophagiti s Problem [facility] [id number] Hypercalce manav Problem [facility] [id number] Iron deficiency anemia, unspecifie d iron deficiency anemia type Problem [facility] [id number] Enlarged thyroid Problem [facility] [id number] Abnormal finding on imaging Problem [facility] Intractabl e nausea and vomiting Intractabl e nausea and vomiting Disease Resolve d 4-27 00:00: 00 2021-07-13 00:00:00 2021-07-13 09:24:51 [facility] Rh negative status during Rh negative status during Disease Resolve d 08-22 00:00: 00 2021-07-13 00:00:00 2021-07-13 09:25:04 [facility] Supervisio n of high risk , antepartum , first trimester Supervisio n of high risk , antepartum , first trimester Disease Resolve d 08-21 00:00: 00 2021-07-13 00:00:00 2021-07-13 09:25:05 [facility] Missed menses Missed menses Disease Resolve d 08-21 00:00: 00 2021-07-13 00:00:00 2021-07-13 09:25:08 [facility] Multiparit y Multiparit y Disease Resolve d 08-21 00:00: 00 2021-07-13 00:00:00 2021-07-13 09:24:54 [facility] Tobacco use in , unspecifie d trimester Tobacco use in , unspecifie d trimester Disease Resolve d 08-21 00:00: 00 2021-07-13 00:00:00 2021-07-13 09:25:07 [facility] Needs flu shot Needs flu shot Disease Resolve d 08-21 00:00: 00 2021-07-13 00:00:00 2021-07-13 09:24:56 [facility] History of labor History of labor Disease Resolve d 08-21 00:00: 00 2021-07-13 00:00:00 2021-07-13 09:24:49 [facility] Allergies, Adverse Reactions, Alerts Allergy Name Allergy Type Status Severity Reaction(s) Onset Date Inactive Date Treating Clinician Comments Source No Known Allergie s DA Active U 2016-04 00:00: 00 [facility] NO KNOWN ALLERGIE S Drug Class Active [facility] 95123 Drug allergy Active Muscle Atrophy [facility] Social History Social Habit Start Date Stop Date Quantity Comments Source Sex Assigned At [facility] History of tobacco use Passive smoker [facility] ASSERTION Possible [facility] Gender identity Ryan natalia Sammy [facility] Sexual orientation [facility] History of Social function 2024-04-25 00:00:00 2024-04-25 00:00:00 [facility] Alcoholic beverage intake 2024-03-30 00:00:00 2024-03-30 00:00:00 Current drinker of alcohol (finding) [facility] Tobacco Comment 2023-11-06 00:00:00 2023-11-06 00:00:00 Currently vapes nicotine [facility] Alcohol Comment 2023-11-06 00:00:00 2023-11-06 00:00:00 last drink 4-5 shots yesterday [facility] Tobacco use and exposure 2023-11-06 00:00:00 2023-11-06 00:00:00 Former smokeless tobacco user [facility] Alcohol intake 2023-04-30 00:00:00 2023-04-30 00:00:00 Current non-drinker of alcohol (finding) [facility] Exposure to SARS-CoV-2 (event) 2022-08-17 00:00:00 2022-08-27 20:37:00 Not sure [facility] Cigarettes smoked current (pack per day) - Reported 2018-11-05 00:00:00 2018-11-05 00:00:00 [facility] Smoking Status Start Date Stop Date Source Ex-smoker 2024-04-25 00:00:00 2024-04-25 00:00:00 [facility] Current Smoker 2023-06-07 00:00:00 [facility] Medications Ordered Medication Name Filled Medication [...] (Select all that apply): Urinary Tract Infection [facility] LORazepam (Ativan) injection 2 mg LORazepam [...] Flush, Starting on 04/25/24 at 0442 [facility] Christianson Epic sodium chloride 0.9 % infusion 1,000 mL sodium chloride 0.9 % infusion 1,000 mL 04-25 04:40: 00 04-25 13:17 :59 No 1000mL 1,000 mL, Intravenou s, at 125 mL/hr, Continuous , Starting on Sat04/25/24 at 0440 [facility] ondansetron (Zofran) injection [...] hours PRN, severe pain (7-10), Starting on Sat25 at 0439, For 5 days, Maximum traMADol [...] PRN, muscle spasms, Starting on 04/25/24 at 0438, Non-sedati ng, No ability to develop tolerance. [facility] naloxone (Narcan) injection 0.04 mg naloxone (Narcan) injection 0.04 mg 04-25 04:38: 27 Yes .04mg 0.04 mg, Intravenou s, As needed, opioid reversal, every 2 mins PRN for Narcotic Reversal, Starting on 04/25/24 at 0438, For 8 doses, Give up to 8 [...] 4 mg morphine PF injection 4 mg 04-25 01:45: 00 04-25 02:24 :00 No 4mg 4 mg, Intravenou s, Once, On 04/25/24 at 0145, For 1 dose, Administer IVP. [facility] electrolyte solution pH 7.4 (Plasma-lyt e/Normosol/ Isolyte) infusion 1,000 mL electrolyte solution pH 7.4 (Plasma-lyt e/Normosol/ Isolyte) infusion 1,000 mL 04-24 22:15: 00 04-24 23:31 :00 No 1000mL 1,000 mL, Intravenou s, Administer over 1 Hours, Once, On Sat04/24/24 at 2215, For 1 dose Marcos Babinann Lori PHENobarbit al (Luminal) injection 260 mg PHENobarbit al (Luminal) injection 260 mg 04-24 22:00: 00 04-24 22:32 :00 No 260mg 260 mg, Intravenou s, Once, On Sat04/24/24 at 2200, For 1 dose, Administer no faster than 1 mg/kg/theodore te, to a max of 60 mg/min in adults. Marcos Babinann Lori PHENobarbit al (Luminal) injection 260 mg PHENobarbit al (Luminal) injection 260 mg 04-24 15:45: 00 04-24 16:29 :00 No 260mg 260 mg, Intravenou s, Once, On Sat04/24/24 at 1545, For 1 dose, Give as IV push Marcos Babinann Lori NaCl 0.9% (NS) IV infusion 1,000 mL 2023-04 08:30: 00 04-05 09:30 :00 No 1000mL at 999 mL/hr, Intravenou s, ONCE, 1 dose, On Sat04/05/24 at 0230, [facility] acetaminoph en (TYLENOL) tablet 650 mg 2023-04 07:45: 00 04-05 07:42 :00 No 650mg 650 mg, Oral, ONCE, 1 dose, On Sat04/05/24 at 0145, [facility] iopamidol (ISOVUE 370-500 mL) injection 75 mL 2023-04 07:45: 00 04-05 07:45 :00 No [id number] 75mL 75 mL, Intravenou s, ONCE, 1 dose, On 04/05/24 at 0145, Routine [facility] ondansetron (ZOFRAN (PF)) injection 4 mg 2023-04 05:45: 00 04-05 05:46 :00 No 4mg 4 mg, Slow IV Push, ONCE, 1 dose, On 04/04/24 at 2345, Administer over 2-5 Minutes, 2 mL [facility] NaCl 0.9% (NS) IV infusion 1,000 mL 2023-04 05:32: 00 04-05 07:43 :00 No 1000mL at 999 mL/hr, Intravenou s, ONCE, 1 dose, On 04/04/24 at 2345, CECILIA [facility] sodium chloride (NS) injection 5 mL 2023-04 05:12: 47 Yes 5mL 5 mL, Intravenou s, PRN, Starting on 04/04/24 at 2312, Until Discontinu ed, Routine, IV line flushing [facility] HYDROcodone -acetaminop hen (NORCO 5) tablet 1 tablet 2023-04 02:30: 00 03-31 01:53 :00 No 1{tbl} 1 tablet, Oral, ONCE, 1 dose, On Sat03/30/24 at 2030, CECILIA [facility] ondansetron (ZOFRAN-ODT ) disintegrat ing tablet 4 mg 2023-04 01:45: 00 03-31 01:53 :00 No 4mg 4 mg, Oral, ONCE, 1 dose, On Sat03/30/24 at 2000, Routine [facility] ondansetron (ZOFRAN-ODT ) disintegrat ing tablet 4 mg 2023-04 10:15: 00 03-30 09:28 :00 No 4mg 4 mg, Oral, ONCE, 1 dose, On Sat03/30/24 at 0415, Routine [facility] ibuprofen (IBU) tablet 600 mg 2023-04 09:15: 00 03-30 09:24 :00 No 600mg 600 mg, Oral, ONCE, 1 dose, On Sat03/30/24 at 0315, [facility] cephALEXin 500 mg capsule 2023-04-09 00:00: 00 04-07 05:59 :00 Yes [id number] 500mg Take 1 capsule by mouth in the morning and 1 capsule in the evening. Do all this for 7 days. [facility] methocarbam oL (ROBAXIN) tablet 1,000 mg 2023-04 19:30: 00 01-25 20:18 :00 No 1000mg 1,000 mg, Oral, ONCE, 1 dose, On 01/26/24 at 1430, [facility] ibuprofen (IBU) tablet 600 mg 2023-04 19:30: 00 01-25 20:18 :00 No 600mg 600 mg, Oral, ONCE, 1 dose, On 01/26/24 at 1430, [facility] methocarbam oL 750 mg tablet 2023-04 00:00: 00 Yes [id number] 750mg Take 1 tablet by mouth 3 (three) times daily as needed (body aches). [facility] fentanyl PF (SUBLIMAZE (PF)) injection 50 mcg 12-27 02:00: 00 12-27 02:00 :00 No 50ug 50 mcg, Intramuscu lar, ONCE, 1 dose, On Sat12/27/23 at 2100, Routine [facility] HYDROcodone -acetaminop hen (NORCO 5) tablet 1 tablet 12-26 21:15: 00 12-26 21:55 :00 No 1{tbl} 1 tablet, Oral, ONCE, 1 dose, On Sat12/27/23 at 1615, [facility] HYDROcodone -acetaminop hen (NORCO) 10-325 mg tablet 1 tablet 12-15 12:15: 00 12-15 11:26 :00 No 1{tbl} 1 tablet, Oral, ONCE NOW, 1 dose, On Sat12/16/23 at 0715, Routine [facility] traMADoL (ULTRAM) 50 mg tablet 12-15 00:00: 00 Yes [id number] 50mg Take 1 tablet by mouth every 6 (six) hours as needed for Pain (scale 7-10). Indication s: acute pain [facility] magnesium sulfate in water 2 gram/50 mL (4 %) infusion 2 g 12-07 21:45: 00 12-07 21:30 :00 No 2g 2 g, IV Piggyback, Administer over 60 Minutes, ONCE, 1 dose, On Sat12/08/23 at 1645, CECILIA [facility] thiamine (VITAMIN B1) 100 mg in NaCl 0.9% (NS) piggyback 12-07 20:30: 00 12-07 21:01 :00 No 100mg IV Piggyback, ONCE, 1 dose, On Sat12/08/23 at 1530, 50 mL [facility] LORazepam (ATIVAN) tablet 1 mg 12-07 20:00: 00 12-07 20:03 :00 No 1mg 1 mg, Oral, ONCE, 1 dose, On Sat12/08/23 at 1500, CECILIA [facility] magnesium oxide 400 mg (241.3 mg magnesium) tablet 12-07 00:00: 00 Yes [id number] 800mg Take 2 tablets by mouth in the morning. [facility] chlordiazeP OXIDE 25 mg capsule 12-07 00:00: 00 Yes [id number] 100mg Take 4 capsules by mouth in the morning and 4 capsules at noon and 4 capsules in the evening. [facility] diphenhydrA MINE (BENADRYL) tablet 25 mg 12-05 08:30: 00 12-05 08:21 :00 No 25mg 25 mg, Oral, ONCE, 1 dose, On Sat12/06/23 at 0330, CECILIA [facility] LORazepam (ATIVAN) tablet 1 mg 12-05 07:00: 00 12-05 06:58 :00 No 1mg 1 mg, Oral, ONCE, 1 dose, On Sat12/06/23 at 0200, [facility] LORazepam (ATIVAN) tablet 1 mg 12-04 05:00: 00 12-04 05:05 :00 No 1mg 1 mg, Oral, ONCE, 1 dose, On [place] 12/05/23 at 0000, [facility] NaCl 0.9% (NS) bolus infusion 1,000 mL 12-04 04:45: 00 12-04 04:50 :00 No 1000mL at 999 mL/hr, 1,000 mL, IV Infusion, ONCE, 1 dose, On Sat12/04/23 at 2345, [facility] Lidocaine (LIDOCARE) 4 % patch 1 Patch 11-21 18:15: 00 11-22 06:14 :00 No 1{patch } 1 Patch, Topical, Administer over 12 Hours, ONCE, 1 dose, On Sat11/22/23 at 1315, [facility] NaCl 0.9% (NS) bolus infusion 1,000 mL 11-21 18:15: 00 11-21 19:21 :00 No 1000mL at 999 mL/hr, 1,000 mL, IV Infusion, ONCE, 1 dose, On Sat11/22/23 at 1315, [facility] ketorolac (TORADOL) injection 30 mg 11-21 17:40: 00 11-21 17:52 :00 No 30mg 30 mg, Slow IV Push, ONCE, 1 dose, On Sat11/22/23 at 1245, [facility] proCHLORper azine (COMPAZINE) 10 mg in NaCl 0.9% (NS) piggyback 11-21 17:30: 00 11-21 18:24 :00 No 10mg 10 mg, IV Piggyback, at 100 mL/hr Administer over 30 Minutes, ONCE, 1 dose, On Sat11/22/23 at 1230, [facility] methocarbam oL (ROBAXIN) tablet 1,000 mg 11-21 17:30: 00 11-21 17:56 :00 No 1000mg 1,000 mg, Oral, ONCE, 1 dose, On Sat11/22/23 at 1230, CECILIA [facility] metoprolol tartrate (LOPRESSOR) tablet 25 mg 11-08 14:15: 00 Yes 25mg 25 mg, Oral, BID, First dose on Sat11/09/23 at 0915, Until Discontinu ed, Routine [facility] oxazepam (SERAX) capsule 15 mg 11-08 06:01: 04 11-09 06:14 :00 No 15mg 15 mg, Oral, Q12H TAPER, 2 doses, First dose on Sat11/09/23 at 0115, Last dose on Sat11/09/23 at 1315, Routine [facility] metoprolol tartrate 25 mg tablet 11-08 00:00: 00 12-09 04:59 :00 No [id number] 25mg Take 1 tablet by mouth in the morning and 1 tablet in the evening. Do all this for 30 days. [facility] KCL (KLOR-CON M20) tablet 20 mEq 11-07 23:00: 00 11-07 22:58 :00 No 20meq 20 mEq, Oral, ONCE, 1 dose, On Sat11/08/23 at 1800, Routine [facility] diphenhydrA MINE (BENADRYL) tablet 25 mg 11-07 13:03: 50 Yes 25mg 25 mg, Oral, Q6HPRN, Starting on Sat11/08/23 at 0803, Until Discontinu ed, Routine, Itching [facility] phosphorus (K PHOS NEUTRAL) tablet 1 tablet 11-07 13:00: 00 11-09 12:59 :00 No 250mg 1 tablet (250 mg), Oral, BID, 4 doses, First dose on Sat11/08/23 at 0800, Last dose on Sat11/09/23 at 2000, Routine [facility] magnesium sulfate in water 2 gram/50 mL (4 %) infusion 2 g 11-07 13:00: 00 11-07 14:34 :00 No 2g 2 g, IV Piggyback, Administer over 60 Minutes, ONCE, 1 dose, On Sat11/08/23 at 0800, Routine [facility] potassium phosphate 30 mmol in NaCl 0.9% (NS) 500 mL piggyback 11-07 13:00: 00 11-07 20:30 :00 No 30mmol 30 mmol, IV Piggyback, ONCE, 1 dose, On Sat11/08/23 at 0800, 500 mL [facility] HYDROmorpho ne (DILAUDID) injection 0.5 mg 11-07 10:45: 00 11-07 10:31 :00 No .5mg 0.5 mg, Slow IV Push, ONCE, 1 dose, On Sat11/08/23 at 0545, Routine, Is this medication approved by a Faculty level provider? Yes, anthropology faculty member approving Restricted medication : WILLIAM CASTORENA [facility] traMADoL (ULTRAM) tablet 50 mg 11-07 01:50: 29 Yes 50mg 50 mg, Oral, Q6HPRN, Starting on Sat11/07/23 at 2050, Until Discontinu ed, Routine, Pain (scale 4-6) [facility] FENTanyl PF (SUBLIMAZE (PF)) injection 25 mcg 11-07 01:29: 16 Yes 25ug 25 mcg, Slow IV Push, Q4HPRN, Starting on Sat11/07/23 at 202, Until Discontinu ed, Routine, Pain (scale 7-10) [facility] NaCl 0.9% (NS) IV infusion 1,000 mL 11-07 00:30: 00 11-07 13:51 :28 No 1000mL at 75 mL/hr, IV Infusion, CONTINUOUS , Starting on Sat11/07/23 at 1930, Until Sat11/08/23 at 0851, Routine [facility] sodium phosphate 15 mmol in NaCl 0.9% (NS) 250 mL piggyback 11-06 14:45: 00 11-06 19:18 :00 No 15mmol 15 mmol, IV Piggyback, ONCE, 1 dose, On Sat11/07/23 at 0945, Administer over 4 Hours, 250 mL [facility] thiamine mononitrate (VITAMIN B-1 (MONONITRAT E)) tablet 100 mg 11-06 14:00: 00 Yes 100mg 100 mg, Oral, DAILY, First dose on Sat11/07/23 at 0900, Until Discontinu ed, Routine [facility] foLIC acid (FOLATE) tablet 1 mg 11-06 14:00: 00 Yes 1mg 1 mg, Oral, DAILY, First dose on Sat11/07/23 at 0900, Until Discontinu ed, Routine [facility] pantoprazol e (PROTONIX) EC tablet 40 mg 11-06 13:00: 00 Yes 40mg 40 mg, Oral, BID, First dose on Sat11/07/23 at 0800, Until Discontinu ed, Routine [facility] sucralfate (CARAFATE) tablet 1 g 11-06 02:00: 00 Yes 1g 1 g, Oral, AC+HS, First dose on Sat11/06/23 at 2100, Until Discontinu ed, Routine [facility] magnesium sulfate in water 2 gram/50 mL (4 %) infusion 2 g 11-06 01:30: 00 11-06 02:48 :00 No 2g 2 g, IV Piggyback, Administer over 60 Minutes, ONCE, 1 dose, On Sat11/06/23 at 2030, CECILIA [facility] oxazepam (SERAX) capsule 15 mg 11-06 00:01: 04 Yes 15mg 15 mg, Oral, Q4HPRN, Starting on Sat11/06/23 at 1901, Until Discontinu ed, Routine, Only while awake for DBP equal to or greater than 100, HR equal to or greater than 100. [facility] nicotine (NICODERM) 21 mg/24 hr patch 1 Patch 11-06 00:00: 00 Yes 1{patch } 1 Patch, Topical, Administer over 24 Hours, Q24H, First dose on Sat11/06/23 at 1900, Until Discontinu ed, Routine [facility] pantoprazol e (PROTONIX) injection 40 mg 11-05 23:45: 00 11-05 23:08 :00 No 40mg 40 mg, Slow IV Push, ONCE, 1 dose, On Sat11/06/23 at 1845 [facility] ondansetron (ZOFRAN (PF)) injection 4 mg 11-05 22:47: 22 Yes 4mg 4 mg, Slow IV Push, Q6HPRN, Nausea and Vomiting (N/V), Starting on Sat11/06/23 at 1747, Doses of ondansetro n 16 mg and above need to be administer ed via IV piggyback. For Dose >=24mg ECG monitoring is advisable. [facility] enoxaparin (LOVENOX) injection 40 mg 11-05 22:00: 00 Yes 40mg 40 mg, Subcutaneo us, DAILY, First dose on Sat11/06/23 at 1700, Until Discontinu ed, Routine [facility] D5W 0.45% NaCl (1/2NS) 1 L + KCL 20 mEq 11-05 20:45: 00 11-06 13:45 :29 No Intravenou s, at 125 mL/hr, CONTINUOUS , Starting on Sat11/06/23 at 1545, Until [place] 11/07/23 at 0845, CECILIA [facility] NaCl 0.9% (NS) bolus infusion 1,000 mL 11-05 20:00: 00 11-05 20:14 :00 No 1000mL at 999 mL/hr, 1,000 mL, IV Infusion, ONCE, 1 dose, On Sat11/06/23 at 1500, STAT [facility] thiamine (VITAMIN B1) injection 100 mg 11-05 18:45: 00 11-05 18:55 :00 No 100mg 100 mg, Slow IV Push, ONCE, 1 dose, On Sat11/06/23 at 1345, CECILIA [facility] ondansetron (ZOFRAN (PF)) injection 4 mg 10-27 14:45: 00 10-27 14:42 :00 No 4mg 4 mg, Slow IV Push, ONCE, 1 dose, On Sat10/28/23 at 0945, CECILIA [facility] NaCl 0.9% (NS) IV infusion 1,000 mL 10-27 09:45: 00 Yes 1000mL at 150 mL/hr, Intravenou s, CONTINUOUS , Starting on Sat10/28/23 at 0445, Until Discontinu ed, Routine [facility] ondansetron (ZOFRAN-ODT ) disintegrat ing tablet 4 mg 10-18 17:00: 00 10-18 16:15 :00 No 4mg 4 mg, Oral, ONCE, 1 dose, On 10/19/23 at 1200, Routine [facility] hydrOXYzine (ATARAX) tablet 25 mg 10-18 16:00: 00 10-18 16:15 :00 No 25mg 25 mg, Oral, ONCE, 1 dose, On 10/19/23 at 1100, CECILIA [facility] ondansetron 4 mg disintegrat ing tablet 10-18 00:00: 00 Yes [id number] 4mg Take 1 tablet by mouth every 8 (eight) hours as needed for Nausea and Vomiting (N/V). [facility] hydrOXYzine 25 mg tablet 10-18 00:00: 00 Yes [id number] 25mg Take 1 tablet by mouth every 6 (six) hours as needed for Anxiety. [facility] neomycin-po lymyxin-pra moxine 3.5-10,000- 10 mg-unit-mg/ gram cream 10-17 00:00: 00 Yes [id number] Apply to area(s) 2 (two) times daily. [facility] cholecalcif catherine, vitamin D3, 25 mcg (1,000 unit) tablet 09-21 00:00: 00 10-22 04:59 :00 No [id number] 1000U Take 1 tablet by mouth in the morning for 30 days. [facility] foLIC acid 1 mg tablet 09-21 00:00: 00 10-22 04:59 :00 No [id number] 1mg Take 1 tablet by mouth in the morning for 30 days. [facility] KCL (KLOR-CON M20) tablet 40 mEq 09-20 14:30: 00 09-20 14:15 :00 No 40meq 40 mEq, Oral, ONCE, 1 dose, On 09/21/23 at 0930, Routine [facility] lisdexamfet amine (VYVANSE) 60 mg capsule 09-20 12:06: 59 Yes 60mg Take 1 capsule by mouth every morning. [facility] oxazepam (SERAX) capsule 15 mg [...] 09/22/23 at 1230, Routine [Order 2 End] [facility] benzonatate 100 mg capsule 09-20 00:00: 00 10-01 04:59 :00 No [id number] 100mg Take 1 capsule by mouth every 8 (eight) hours as needed for Cough for up to 10 days. [facility] zinc sulfate 50 mg zinc (220 mg) capsule 09-20 00:00: 00 10-01 04:59 :00 No [id number] 50mg Take 1 capsule by mouth in the morning and 1 capsule at noon and 1 capsule in the evening. Do all this for 10 days. [facility] amoxicillin -clavulanat e 875-125 mg per tablet 09-20 00:00: 00 09-26 04:59 :00 No [id number] 1{tbl} Take 1 tablet by mouth in the morning and 1 tablet in the evening. Do all this for 5 days. [facility] dexAMETHaso ne 4 mg tablet 09-20 00:00: 00 09-26 04:59 :00 No [id number] 6mg Take 1.5 tablets by mouth every 12 (twelve) hours for 5 days. [facility] cefTRIAXone (ROCEPHIN) 1,000 mg in NaCl 0.9% (NS) 100 mL MINI-BAG 09-19 23:30: 00 09-24 23:29 :00 No 1000mg 1,000 mg, IV Piggyback, Q24H ABX, 5 doses, First dose on Sat09/20/23 at 1830, Last dose on Sat09/24/23 at 1830, Administer over 30 Minutes, 100 mL, Reason for Anti-Infec tive: Documented Infection, Documented Infection Site: Respirator y, Duration of Therapy: 7 days [facility] cholecalcif catherine (vitamin D3) tablet 1,000 Units 09-19 14:00: 00 Yes 1000U 1,000 Units, Oral, DAILY, First dose on Sat09/20/23 at 0900, Until Discontinu ed, Routine [facility] metoprolol succinate XL (TOPROL XL) tablet 25 mg 09-19 14:00: 00 Yes 25mg 25 mg, Oral, DAILY, First dose on Sat09/20/23 at 0900, Until Discontinu ed, Routine [facility] foLIC acid (FOLATE) tablet 1 mg 09-19 14:00: 00 Yes 1mg 1 mg, Oral, DAILY, First dose on Sat09/20/23 at 0900, Until Discontinu ed, Routine [facility] enoxaparin (LOVENOX) injection 40 mg 09-19 14:00: 00 Yes 40mg 40 mg, Subcutaneo us, DAILY, First dose on Sat09/20/23 at 0900, Until Discontinu ed, Routine [facility] zinc sulfate (ORAZINC) capsule 50 mg 09-19 13:00: 00 Yes 50mg 50 mg, Oral, TID, First dose on Sat09/20/23 at 0800, Until Discontinu ed, Routine [facility] ascorbic acid (vitamin C) (VITAMIN C) tablet 500 mg 09-19 13:00: 00 Yes 500mg 500 mg, Oral, BID, First dose on Sat09/20/23 at 0800, Until Discontinu ed, Routine [facility] ipratropium -albuteroL (DUONEB) 0.5 mg-3 mg(2.5 mg base)/3 mL nebulizer solution 3 mL 09-19 13:00: 00 09-19 14:58 :45 No 3mL 3 mL, Inhalation , QID, First dose on Sat09/20/23 at 0800, Until Discontinu ed, Routine [facility] ipratropium -albuteroL (DUONEB) 0.5 mg-3 mg(2.5 mg base)/3 mL nebulizer solution 3 mL 09-19 12:32: 50 Yes 3mL 3 mL, Inhalation , QIDPRN, Starting on Sat09/20/23 at 0732, Until Discontinu ed, Routine, Wheezing, Shortness of Breath, Bronchospa sm, Chest tightness [facility] azithromyci n (ZITHROMAX) 500 mg [...] Respirator y, Duration of therapy: 5 days [facility] dexamethaso ne sod phos PF injection 6 mg 09-19 03:00: 00 Yes 6mg 6 mg, Intravenou s, DAILY, First dose (after last modificati on) on Sat09/19/23 at 2200, Until Discontinu ed, 1 mL [facility] benzocaine- menthoL (CEPACOL SORE THROAT (VENITA-MEN)) lozenge 1 Lozenge 09-19 02:44: 39 Yes 1{lozen ge} 1 Lozenge, Oral, Q4HPRN, Starting on Sat09/19/23 at 2144, Until Discontinu ed, Routine, Sore throat [facility] benzonatate (TESSALON PERLES) capsule 100 mg 09-19 02:44: 33 Yes 100mg 100 mg, Oral, Q8HPRN, Starting on Sat09/19/23 at 2144, Until Discontinu ed, Routine, Cough [facility] codeine-gua ifenesin (ROBITUSSIN AC) 10-100 mg/5 mL oral solution 5 mL 09-19 02:44: 22 Yes 5mL 5 mL, Oral, Q6HPRN, Starting on Sat09/19/23 at 2144, Until Discontinu ed, Routine, Cough [facility] NaCl 0.9% (NS) IV infusion 1,000 mL 09-18 23:15: 00 09-19 22:10 :01 No 1000mL at 125 mL/hr, IV Infusion, CONTINUOUS , Starting on Sat09/19/23 at 1815, Until Sat09/20/23 at 1710, Routine [facility] oxazepam (SERAX) capsule 15 mg 09-18 23:05: 39 Yes 15mg 15 mg, Oral, Q4HPRN, Starting on Sat09/19/23 at 1805, Until Discontinu ed, Routine, Only while awake for DBP equal to or greater than 100, HR equal to or greater than 100. [facility] ondans[facility] (ZOFRAN (PF)) injection 4 mg 09-18 23:05: 04 Yes 4mg [facility] HYDROcodone -acetaminop hen (NORCO 5) 5-325 mg tablet 1 tablet 09-18 23:04: 59 09-20 23:03 :59 No 1{tbl} 1 tablet, Oral, Q6HPRN, Starting on [place] 09/19/23 at 1804, Until 09/21/23 at 1803, Routine, Pain (scale 4-6) [facility] acetaminoph en (TYLENOL) tablet 650 mg 09-18 23:04: 44 Yes 650mg 650 mg, Oral, Q6HPRN, Starting on Sat09/19/23 at 1804, Until Discontinu ed, Routine, Pain (scale 1-3) [facility] ondansetron (ZOFRAN (PF)) injection 4 mg 09-18 21:15: 00 09-18 20:11 :00 No 4mg 4 mg, Slow IV Push, ONCE, 1 dose, On [place] 09/19/23 at 1615, CECILIA [facility] acetaminoph en (TYLENOL) tablet 1,000 mg 09-18 21:00: 00 09-18 20:58 :00 No 1000mg 1,000 mg, Oral, ONCE, 1 dose, On [place] 09/19/23 at 1600, Routine [facility] NaCl 0.9% (NS) bolus infusion 1,000 mL 09-18 19:45: 00 09-18 20:11 :00 No 1000mL at 999 mL/hr, 1,000 mL, IV Infusion, ONCE, 1 dose, On Sat09/19/23 at 1445, STAT [facility] magnesium sulfate in water 2 gram/50 mL (4 %) infusion 2 g 09-18 18:00: 00 09-18 18:21 :00 No 2g 2 g, IV Piggyback, Administer over 60 Minutes, ONCE, 1 dose, On [place] 09/19/23 at 1300, Routine [facility] NaCl 0.9% (NS) bolus infusion 1,566 mL 09-18 18:00: 00 09-18 20:11 :00 No 30mL/kg at 999 mL/hr, 1,566 mL (30 mL/kg ?52.2 kg), IV Infusion, ONCE, 1 dose, On [place] 09/19/23 at 1300, [facility] ondansetron (ZOFRAN (PF)) injection 4 mg 09-18 18:00: 00 09-18 17:05 :00 No 4mg 4 mg, Slow IV Push, ONCE, 1 dose, On Sat09/19/23 at 1300, [facility] LORazepam (ATIVAN) injection 1 mg 09-18 17:00: 09-18 17:05 :00 No 1mg 1 mg, Slow IV Push, ONCE, 1 dose, On [place] 09/19/23 at 1200, [facility] NaCl 0.9% (NS) bolus infusion 1,000 mL 09-14 17:30: 09-14 18:27 :00 No 1000mL at 999 mL/hr, 1,000 mL, IV Infusion, ONCE, 1 dose, On Sat09/15/23 at 1230, [facility] iopamidol (ISOVUE 370-500 mL) injection 80 mL 09-14 17:15: 09-14 17:30 :00 No [id number] 80mL 80 mL, Intravenou s, ONCE, 1 dose, On Sat09/15/23 at 1230, Routine [facility] NaCl 0.9% (NS) bolus infusion 1,000 mL 09-13 00:1509-13 01:01 :00 No [id number] 1000mL at 999 mL/hr, 1,000 mL, IV Infusion, ONCE, 1 dose, On Sat09/13/23 at 1915, [facility] acetaminoph en (TYLENOL) tablet 650 mg 09-13 00:15: 00 09-12 23:34 :00 No [id number] 650mg 650 mg, Oral, ONCE, 1 dose, On Sat09/13/23 at 1915, [facility] Vyvanse 60 MG Vyvanse 60 MG 3- 00:00: 00 No 1{capsu le_in_t he_morn ing} QD Vyvanse 60 MG Vyvanse 60 MG Vyvanse 60 MG 2023-0 3- 00:00: 00 No 1{capsu le_in_t he_morn ing} QD Vyvanse 60 MG Gentamicin Sulfate 0.3 % Gentamicin Sulfate 0.3 % 2023-0 2-20 00:00: 00 No 1{drop_ into_af fected_ eye} 6xD Gentamicin Sulfate 0.3 % Vyvanse 60 MG Vyvanse 60 MG 2023-0 2-20 00:00: 00 No 1{capsu le_in_t he_morn ing} QD Vyvanse 60 MG Gentamicin Sulfate 0.3 % Gentamicin Sulfate 0.3 % 0 2-20 00:00: 00 No 1{drop_ into_af fected_ eye} 6xD Gentamicin Sulfate 0.3 % Gentamicin Sulfate 0.3 % Gentamicin Sulfate 0.3 % 0 2-20 00:00: 00 No 1{drop_ into_af fected_ eye} 6xD Gentamicin Sulfate 0.3 % Vyvanse 60 MG Vyvanse 60 MG 2023-0 1-18 00:00: 00 No 1{capsu le_in_t he_morn ing} QD Vyvanse 60 MG permethrin 5 % cream 1- 00:00: 00 Yes [id number] Apply cream from neck down, leave on for 8-14 h, repeat in 2 wks [facility] permethrin 5 % cream - 00:00: 00 Yes [id number] As directed. [facility] hydrOXYzine 25 mg tablet - 00:00: 00 05-06 05:59 :00 No [id number] 25mg Take 1 tablet by mouth 3 (three) times daily as needed for Itching for up to 5 days. [facility] foLIC acid 1 mg tablet 04-28 00:00: 00 05-29 05:59 :00 No [id number] 1mg Take 1 tablet by mouth in the morning for 30 days. [facility] thiamine 100 mg tablet 04-28 00:00: 00 05-29 05:59 :00 No [id number] 100mg Take 1 tablet by mouth in the morning for 30 days. [facility] oxazepam (SERAX) capsule 10 mg 04-27 19:15: 00 04-28 19:14 :00 No 10mg 10 mg, Oral, Q12H TAPER, 2 doses, First dose (after last modificati on) on 04/27/23 at 1315, Last dose on 04/28/23 at 0115, Routine [facility] KCL (KLOR-CON M20) tablet 40 mEq 04-27 15:00: 00 Yes 40meq 40 mEq, Oral, DAILY, First dose on 04/27/23 at 0900, Until Discontinu ed, Routine [facility] metoprolol succinate XL (TOPROL XL) tablet 12.5 mg 04-27 15:00: 00 Yes 12.5mg 12.5 mg, Oral, DAILY, First dose on 04/27/23 at 0900, Until Discontinu ed, Routine [facility] magnesium oxide (MAG-OX 400) tablet 800 mg 04-27 15:00: 00 04-30 14:59 :00 No 800mg 800 mg, Oral, DAILY, 3 doses, First dose on 04/27/23 at 0900, Last dose on Sat04/29/23 at 0900, Routine [facility] lisdexamfet amine (VYVANSE) 60 mg capsule 04-27 09:58: 30 Yes 60mg Take 1 capsule by mouth every morning. [facility] LISINOPRIL ORAL 04-27 08:55: 37 04-27 00:00 :00 No Take by mouth. [facility] KCL 20 mEq tablet 04-27 00:00: 00 05-05 05:59 :00 No [id number] 20meq Take 1 tablet by mouth in the morning for 7 days. [facility] magnesium oxide 420 mg Tab 04-27 00:00: 00 05-05 05:59 :00 No [id number] 400mg Take 400 mg by mouth in the morning for 7 days. [facility] NaCl 0.9% (NS) IV infusion 1,000 mL 04-26 20:00: 00 Yes 1000mL at 150 mL/hr, IV Infusion, CONTINUOUS , Starting on Sat04/26/23 at 1400, Until Discontinu ed, Routine
Resume after banana bag is completed< br> [facility] metoprolol tartrate (LOPRESSOR) tablet 12.5 mg 04-26 20:00: 00 04-27 14:52 :31 No 12.5mg 12.5 mg, Oral, BID, First dose on Sat04/26/23 at 1400, Until Discontinu ed, Routine [facility] magnesium sulfate in water 4 gram/50 mL (8 %) IV Piggyback 4 g 04-26 15:15: 00 04-26 20:54 :00 No 4g 4 g, IV Piggyback, at 25 mL/hr Administer over 120 Minutes, ONCE, 1 dose, On Sat04/26/23 at 0915, CECILIA [facility] potassium chloride in water 10 mEq/100 mL RTU 10 mEq 04-26 14:45: 00 04-26 18:54 :00 No 10meq 10 mEq, IV Piggyback, Q1H, 4 doses, First dose on Sat04/26/23 at 0845, Last dose on Sat04/26/23 at 1100, Administer over 60 Minutes, 100 mL [facility] diazePAM (VALIUM) injection 10 mg 04-25 16:47: 50 Yes 10mg 10 mg, Intravenou s, Q6HPRN, Starting on Sat04/25/23 at 1047, Until Discontinu ed, Routine, Agitation, Withdrawl [facility] foLIC acid (FOLATE) tablet 1 mg 04-25 15:00: 00 Yes 1mg 1 mg, Oral, DAILY, First dose on Sat04/25/23 at 0900, Until Discontinu ed, Routine [facility] thiamine (VITAMIN B1) tablet 100 mg 04-25 15:00: 00 Yes 100mg 100 mg, Oral, DAILY, First dose on [place] 04/25/23 at 0900, Until Discontinu ed, Routine [facility] enoxaparin (LOVENOX) injection 40 mg 04-25 15:00: 00 Yes 40mg 40 mg, Subcutaneo us, DAILY, First dose on [place] 04/25/23 at 0900, Until Discontinu ed, Routine [facility] oxazepam (SERAX) capsule 15 mg 04-25 13:10: 47 Yes 15mg 15 mg, Oral, Q4HPRN, Starting on [place] 04/25/23 at 0710, Until Discontinu ed, Routine, Only while awake for DBP equal to or greater than 100, HR equal to or greater than 100. [facility] potassium chloride in water 10 mEq/100 mL RTU 10 mEq 04-25 13:00: 00 04-25 19:57 :00 No 10meq 10 mEq, IV Piggyback, Q1H, 6 doses, First dose on [place] 04/25/23 at 0700, Last dose on [place] 04/25/23 at 1200, Administer over 60 Minutes, 100 mL [facility] dexMEDEtomi dine 200 mcg in [...] at maximum allowed dose, contact prescriber .
[facility] thiamine (VITAMIN B1) 100 mg, foLIC acid (FOLATE) 1 mg, multivitami n adult (INFUVITE ADULT) 3,300 unit- 150 mcg/10 mL 10 mL in D5W 0.45% NaCl (1/2NS) IV Solution 04-25 06:15: 00 04-25 06:51 :35 No IV Infusion, at 150 mL/hr, ONCE, 1 dose, On [place] 04/25/23 at 0015, 1,000 mL [facility] NaCl 0.9% (NS) IV infusion 1,000 mL 04-25 05:30: 00 04-26 19:52 :00 No 1000mL at 125 mL/hr, IV Infusion, CONTINUOUS , Starting on Sat04/24/23 at 2330, Until Sat04/26/23 at 1352, Routine
Resume after banana bag is completed< br> [facility] NaCl 0.9% (NS) IV infusion 1,000 mL 04-25 03:45: 00 04-25 05:27 :44 No 1000mL at 125 mL/hr, IV Infusion, CONTINUOUS , Starting on Sat04/24/23 at 2145, Until Sat04/24/23 at 2327, Routine [facility] haloperidol lactate (HALDOL) injection 2 mg 04-25 03:42: 43 Yes 2mg 2 mg, Slow IV Push, Q6HPRN, Starting on Sat04/24/23 at 2142, Until Discontinu ed, Routine, Sedation, Psychosis [facility] ondansetron (ZOFRAN (PF)) injection 4 mg 04-25 03:41: 50 Yes 4mg 4 mg, Slow IV Push, Q4HPRN, Starting on Sat04/24/23 at 2141, Until Discontinu ed, Routine, Nausea and Vomiting (N/V) [facility] acetaminoph en (TYLENOL) tablet 650 mg 04-25 03:41: 07 Yes 650mg 650 mg, Oral, Q6HPRN, Starting on Sat04/24/23 at 2141, Until Discontinu ed, Routine, Pain (scale 1-3) [facility] cefTRIAXone (ROCEPHIN) 1,000 mg in NaCl 0.9% (NS) 100 mL MINI-BAG 04-25 02:45: 00 04-25 03:06 :00 No 1000mg 1,000 mg, IV Piggyback, ONCE, 1 dose, On Sat04/24/23 at 2045, Administer over 30 Minutes, 100 mL
Reas on for Anti-Infec tive: Documented Infection< br>Documen colleen Infection Site: Urine
D uration of Therapy: Other (see Comments) [facility] iopamidol (ISOVUE 370-500 mL) injection 85 mL 04-25 02:15: 00 04-25 02:15 :00 No 85mL 85 mL, Intravenou s, ONCE, 1 dose, On Sat04/24/23 at 2015, Routine [facility] NaCl 0.9% (NS) bolus infusion 1,000 mL 04-24 23:15: 00 04-25 02:47 :00 No 1000mL at 999 mL/hr, 1,000 mL, IV Infusion, ONCE, 1 dose, On Sat04/24/23 at 1715, STAT [facility] diazePAM (VALIUM) tablet 2.5 mg 04-24 23:15: 00 04-24 23:58 :00 No 2.5mg 2.5 mg, Oral, ONCE, 1 dose, On Sat04/24/23 at 1715, CECILIA [facility] magnesium sulfate in water 2 gram/50 mL (4 %) infusion 2 g 04-24 23:00: 00 04-24 23:58 :00 No 2g 2 g, IV Piggyback, Administer over 60 Minutes, ONCE, 1 dose, On Sat04/24/23 at 1700, Routine [facility] thiamine (VITAMIN B1) injection 100 mg 04-24 22:15: 00 04-24 22:58 :00 No 100mg 100 mg, Slow IV Push, ONCE, 1 dose, On Sat04/24/23 at 1615, CECILIA [facility] Vyvanse 60 MG Vyvanse 60 [...] 12-12 09:09: 49 Yes Take by mouth. [facility] lisdexamfet amine (VYVANSE) 60 mg capsule 12-12 09:09: 24 Yes 60mg Take 1 capsule by mouth every morning. [facility] oxazepam (SERAX) capsule 15 mg 11-14 08:09: 00 11-15 08:14 :00 No 15mg 15 mg, Oral, Q12H TAPER, 2 doses, First dose on Sat11/14/22 at 0315, Last dose on Sat11/14/22 at 1515, Routine [facility] lisdexamfet amine (VYVANSE) 60 mg capsule 11-13 18:24: 40 Yes 60mg Take 1 capsule by mouth every morning. [facility] potassium phosphate 15 mmol in NaCl 0.9% (NS) 150 mL piggyback 11-13 14:30: 00 11-13 19:51 :00 No 15mmol 15 mmol, IV Piggyback, ONCE, 1 dose, On Sat11/13/22 at 0930, 150 mL [facility] sennosides (SENOKOT) tablet 8.6 mg 11-12 14:00: 00 Yes 8.6mg 8.6 mg, Oral, DAILY, First dose on Sat11/12/22 at 0900, Until Discontinu ed, Routine [facility] D5W 0.45% NaCl (1/2NS) IV infusion 1,000 mL 11-12 13:30: 00 11-12 14:54 :49 No 1000mL at 100 mL/hr, 1,000 mL, IV Infusion, ONCE, 1 dose, On Sat11/12/22 at 0830, Routine [facility] acetaminoph en (TYLENOL) tablet 500 mg 11-12 03:43: 02 Yes 500mg 500 mg, Oral, Q6HPRN, Starting on Sat11/11/22 at 2243, Until Discontinu ed, Routine, Pain (scale 1-3) [facility] oxazepam (SERAX) capsule 15 mg 11-12 02:09: 00 Yes 15mg 15 mg, Oral, Q4HPRN, Starting on Sat11/11/22 at 2109, Until Discontinu ed, Routine, Only while awake for DBP equal to or greater than 100, HR equal to or greater than 100. [facility] D5W 0.9% NaCl (NS) 1 L + KCL 20 mEq 11-11 19:15: 00 11-12 12:42 :08 No IV Infusion, at 100 mL/hr, CONTINUOUS , Starting on Sat11/11/22 at 1415, Until Sat11/12/22 at 0742, Routine [facility] multivitami n oral solution 15 mL 11-11 18:15: 00 Yes 15mL 15 mL, Oral, DAILY, First dose on Sat11/11/22 at 1315, Until Discontinu ed, Routine [facility] potassium chloride in water (KCL) 20 mEq/100 mL RTU IVPB 20 mEq 11-11 10:45: 00 11-11 16:30 :00 No 20meq 20 mEq, IV Infusion, Q2H ES, 2 doses, First dose on Sat11/11/22 at 0545, Last dose on Sat11/11/22 at 0745, 100 mL [facility] glucagon (GLUCAGEN DIAGNOSTIC KIT) injection 1 mg 11-11 10:16: 15 Yes 1mg 1 mg, Intramuscu lar, PRN, Starting on 11/11/22 at 0516, Until Discontinu ed, CECILIA, Blood Glucose < or = 70 mg/dL and patient is NPO, unable to swallow or has mental changes. [facility] dextrose 50 % in water (D50W) injection 25 mL 11-11 10:16: 15 Yes 25mL 25 mL, Slow IV Push, PRN, Starting on Sat11/11/22 at 0516, Until Discontinu ed, CECILIA, Blood Glucose < or = 70 mg/dL and patient is NPO, unable to swallow or has mental status changes. [facility] NaCl 0.9% (NS) IV infusion 1,000 mL 11-11 01:30: 00 11-11 17:57 :28 No 1000mL at 100 mL/hr, IV Infusion, CONTINUOUS , Starting on 11/10/22 at 2030, Until 11/11/22 at 1257, Routine [facility] heparin (porcine) injection 5,000 Units 11-11 01:00: 00 Yes 5000U 5,000 Units, Subcutaneo us, Q12H, First dose on 11/10/22 at 2000, Until Discontinu ed, Routine [facility] magnesium sulfate in water 2 gram/50 mL (4 %) infusion 2 g 11-11 00:45: 00 11-11 04:01 :00 No 2g 2 g, IV Piggyback, Administer over 60 Minutes, ONCE, 1 dose, On 11/10/22 at 1945, Routine [facility] dexMEDEtomi dine 200 mcg in [...] at maximum allowed dose, contact prescriber .
[facility] foLIC acid (FOLATE) injection 1 mg 11-11 00:00: 00 Yes 1mg 1 mg, Intramuscu lar, DAILY, First dose on 11/10/22 at 1900, Until Discontinu ed, Routine [facility] thiamine (VITAMIN B1) 100 mg in NaCl 0.9% (NS) piggyback 11-11 00:00: 00 11-15 13:59 :00 No 100mg IV Piggyback, DAILY, 5 doses, First dose on Sat11/10/22 at 1900, Last dose on Sat11/14/22 at 0900, 50 mL [facility] LORazepam (ATIVAN) injection 1 mg 11-10 23:43: 00 11-12 02:09 :22 No 1mg 1 mg, Slow IV Push, TIDPRN, Starting on 11/10/22 at 1843, Until 11/11/22 at 2109, Routine, Seizures [facility] diazePAM (VALIUM) injection 10 mg 11-10 23:15: 00 11-10 23:17 :00 No 10mg 10 mg, Slow IV Push, ONCE, 1 dose, On 11/10/22 at 1815, STAT [facility] proMETHazin e (PHENERGAN) 25 mg in NaCl 0.9% (NS) 50 mL piggyback 11-10 23:15: 00 11-10 23:19 :00 No 25mg 25 mg, IV Piggyback, ONCE, 1 dose, On 11/10/22 at 1815, 50 mL [facility] LORazepam (ATIVAN) injection 2 mg 11-10 23:00: 00 11-10 23:10 :00 No 2mg 2 mg, Slow IV Push, ONCE, 1 dose, On 11/10/22 at 1800, STAT [facility] LORazepam (ATIVAN) injection 1 mg 11-10 22:15: 00 11-10 22:26 :00 No 1mg 1 mg, Slow IV Push, ONCE, 1 dose, On 11/10/22 at 1715, STAT [facility] lisinopriL 2.5 mg tablet 11-08 00:00: 00 12-09 04:59 :00 No [id number] 2.5mg Take 1 tablet by mouth in the morning for 30 days. [facility] magnesium sulfate in water 2 gram/50 mL (4 %) infusion 2 g 11-07 15:00: 00 11-07 15:40 :00 No 2g 2 g, IV Piggyback, Administer over 60 Minutes, ONCE, 1 dose, On Sat11/07/22 at 1000, Routine [facility] lisdexamfet amine (VYVANSE) 60 mg capsule 11-07 14:54: 12 Yes 60mg Take 1 capsule by mouth every morning. [facility] lisinopriL (PRINIVIL,Z ESTRIL) tablet 2.5 mg 11-07 14:15: 00 Yes 2.5mg 2.5 mg, Oral, DAILY, First dose on Sat11/07/22 at 0915, Until Discontinu ed, Routine [facility] enoxaparin (LOVENOX) injection 40 mg 11-06 22:00: 00 Yes 40mg 40 mg, Subcutaneo us, DAILY, First dose on Sat11/06/22 at 1700, Until Discontinu ed, Routine [facility] pantoprazol e (PROTONIX) EC tablet 40 mg 11-06 14:00: 00 Yes 40mg 40 mg, Oral, DAILY, First dose on Sat11/06/22 at 0900, Until Discontinu ed, Routine [facility] metoprolol succinate XL (TOPROL XL) tablet 25 mg 11-06 14:00: 00 Yes 25mg 25 mg, Oral, DAILY, First dose on Sat11/06/22 at 0900, Until Discontinu ed, Routine [facility] docusate (COLACE) capsule 100 mg 11-06 13:00: 00 Yes 100mg 100 mg, Oral, BID, First dose on Sat11/06/22 at 0800, Until Discontinu ed, Routine [facility] D5W 0.9% NaCl (NS) IV infusion 1,000 mL 11-06 12:15: 00 11-08 12:14 :00 No 1000mL at 200 mL/hr, 1,000 mL, IV Infusion, CONTINUOUS , Starting on Sat11/06/22 at 0715, Until Sat11/08/22 at 0714, CECILIA [facility] D5W 0.9% NaCl (NS) IV infusion 1,000 mL 11-06 11:30: 00 11-06 12:13 :19 No 1000mL at 200 mL/hr, 1,000 mL, IV Infusion, CONTINUOUS , Starting on Sat11/06/22 at 0630, Until Sat[facility]/06/22 [facility] 0713[facility]FRAN (PF[facility] 4 mg 11-06 10:31: 07 Yes 4mg 4 mg, Slow IV Push, Q6HPRN, Starting on Sat11/06/22 at 0531, Until Discontinu ed, Routine, Nausea and Vomiting (N/V) [facility] bisacodyL (DULCOLAX) tablet 10 mg 11-06 10:31: 02 Yes 10mg 10 mg, Oral, QDAILYPRN, Starting on Sat11/06/22 at 0531, Until Discontinu ed, Routine, Constipati on [facility] FENTanyl PF (SUBLIMAZE (PF)) injection 25 mcg 11-06 10:30: 33 11-07 10:29 :33 No 25ug 25 mcg, Slow IV Push, Q4HPRN, Starting on Sat11/06/22 at 0530, Until Sat11/07/22 at 0529, Routine, Pain (scale 7-10) [facility] acetaminoph en (TYLENOL) tablet 650 mg 11-06 10:29: 53 Yes 650mg 650 mg, Oral, Q6HPRN, Starting on Sat11/06/22 at 0529, Until Discontinu ed, Routine, Pain (scale 1-3) [facility] foLIC acid (FOLATE) 5 mg in NaCl 0.9% (NS) piggyback 11-06 10:15: 00 11-06 10:35 :00 No 5mg IV Piggyback, ONCE NOW, 1 dose, On Sat11/06/22 at 0515, 50 mL [facility] thiamine (VITAMIN B1) 100 mg in NaCl 0.9% (NS) piggyback 11-06 10:15: 00 11-06 10:45 :00 No 100mg IV Piggyback, ONCE NOW, 1 dose, On Sat11/06/22 at 0515, 50 mL [facility] NaCl 0.9% (NS) bolus infusion 1,000 mL 11-06 09:00: 00 11-06 09:11 :00 No 1000mL at 999 mL/hr, 1,000 mL, IV Piggyback, ONCE, 1 dose, On Sat11/06/22 at 0400, STAT [facility] morpHINE (4 mg/mL) injection 4 mg 11-06 09:00: 00 11-06 08:54 :00 No 4mg 4 mg, Slow IV Push, ONCE, 1 dose, On Sat11/06/22 at 0400, STAT [facility] iopamidol (ISOVUE 370-500 mL) injection 70 mL 11-06 07:45: 00 11-06 06:58 :00 No [id number] 70mL 70 mL, Intravenou s, ONCE, 1 dose, On Sat11/06/22 at 0245, Routine [facility] ketorolac (TORADOL) injection 30 mg 11-06 07:30: 00 11-06 06:33 :00 No 30mg 30 mg, Slow IV Push, ONCE, 1 dose, On Sat11/06/22 at 0230, Routine [facility] NaCl 0.9% (NS) bolus infusion 1,000 mL 11-06 07:15: 00 11-06 08:11 :00 No 1000mL at 999 mL/hr, 1,000 mL, IV Infusion, ONCE, 1 dose, On Sat11/06/22 at 0215, CECILIA [facility] FENTanyl PF (SUBLIMAZE (PF)) injection 50 mcg 11-06 07:15: 00 11-06 06:34 :00 No 50ug 50 mcg, Slow IV Push, ONCE, 1 dose, On Sat11/06/22 at 0215, Routine [facility] ondansetron (ZOFRAN (PF)) injection 4 mg 11-06 06:30: 00 11-06 06:34 :00 No 4mg 4 mg, Slow IV Push, ONCE, 1 dose, On Sat11/06/22 at 0130, CECILIA [facility] albuterol 90 mcg/actuati on inhaler 11-06 01:23: 41 11-06 00:00 :00 No 2{puff} Inhale 2 Puffs every 6 (six) hours as needed for Wheezing or Shortness of Breath. [facility] ibuprofen 600 mg tablet 11-06 01:23: 41 11-06 00:00 :00 No 600mg Take 600 mg by mouth in the morning. [facility] lisdexamfet amine (VYVANSE) 60 mg capsule 10-30 00:00: 00 11-06 00:00 :00 No 1 capsule in the morning Orally Once a day for 30 days [facility] doxycycline hyclate (Vibramycin ) capsule 100 mg 08-28 03:30: 00 08-28 03:50 :00 No 100mg 100 mg, Oral, ONCE, 1 dose, On Sat08/27/22 at 2230, CECILIA
Re ason for Anti-Infec tive: Documented Infection< br>Documen colleen Infection Site: Skin / Soft Tissue
Duration of Therapy: 10 days [facility] cephALEXin (KEFLEX) capsule 500 mg 08-28 03:30: 00 08-28 03:50 :00 No 500mg 500 mg, Oral, ONCE, 1 dose, On Sat08/27/22 at 2230, CECILIA
Re ason for Anti-Infec tive: Empiric Therapy for Suspected Infection< br>Empiric Therapy Site: Skin / Soft tissue
Duration of therapy: 5 days [facility] lisdexamfet amine (VYVANSE) 60 mg capsule 08-27 22:56: 45 Yes 60mg Take 1 capsule by mouth every morning. [facility] pantoprazol e 40 mg EC tablet 08-27 20:42: 39 08-27 00:00 :00 No 40mg Take 40 mg by mouth in the morning. [facility] lisdexamfet amine 50 mg capsule 08-27 20:42: 27 08-27 00:00 :00 No 50mg Take 50 mg by mouth every morning. [facility] doxycycline hyclate 100 mg capsule 08-27 00:00: 00 Yes [id number] 100mg Take 1 capsule by mouth in the morning and 1 capsule in the evening. [facility] cephALEXin (KEFLEX) 500 mg capsule 2022-0 08 00:00: 00 09-04 04:59 :00 No [id number] 500mg Take 1 capsule by mouth in the morning and 1 capsule at noon and 1 capsule in the evening. Do all this for 7 days. [facility] cefTRIAXone Sodium cefTRIAXone Sodium 2022-0 -10 00:00: 00 No 1g [facility] cefTRIAXone Sodium cefTRIAXone Sodium 3-0 2-10 00:00: 00 No 1g [facility] cefTRIAXone Sodium cefTRIAXone Sodium 3-0 -10 00:00: 00 No 1g [facility] cefTRIAXone Sodium cefTRIAXone Sodium 3-0 2-10 00:00: 00 No 1g [facility] cefTRIAXone Sodium cefTRIAXone Sodium 3-0 2-10 00:00: 00 No 1g [facility] cefTRIAXone Sodium cefTRIAXone Sodium 2022-0 2-10 00:00: 00 No 1g [facility] cefTRIAXone Sodium cefTRIAXone Sodium 3-0 2-10 00:00: 00 No 1g [facility] cefTRIAXone Sodium cefTRIAXone Sodium 3-0 2-10 00:00: 00 No 1g [facility] cefTRIAXone Sodium cefTRIAXone Sodium 3-0 2-10 00:00: 00 No 1g [facility] cefTRIAXone Sodium cefTRIAXone Sodium 3-0 2-10 00:00: 00 No 1g [facility] cefTRIAXone Sodium cefTRIAXone Sodium 3-0 2-10 00:00: 00 No 1g [facility] cefTRIAXone Sodium cefTRIAXone Sodium 3-0 2-10 00:00: 00 No 1g [facility] cefTRIAXone Sodium cefTRIAXone Sodium 3-0 2-10 00:00: 00 No 1g [facility] cefTRIAXone Sodium cefTRIAXone Sodium 3-0 2-10 00:00: 00 No 1g [facility] cefTRIAXone Sodium cefTRIAXone Sodium 3-0 2-10 00:00: 00 No 1g [facility] cefTRIAXone Sodium cefTRIAXone Sodium 3-0 2-10 00:00: 00 No 1g [facility] cefTRIAXone Sodium cefTRIAXone Sodium 2- 00:00: 00 No 1g [facility] cefTRIAXone Sodium cefTRIAXone Sodium 2- 00:00: 00 No 1g [facility] Vyvanse 60 MG Vyvanse 60 MG 1-10 00:00: 00 No 1{capsu le_in_t he_morn ing} QD Vyvanse 60 MG iopamidol (ISOVUE 370-500 mL) injection 80 mL 2021-04 01:00: 00 04-13 00:03 :00 No [id number] 80mL 80 mL, Intravenou s, ONCE, 1 dose, On [place] 04/12/22 at 1900, Routine [facility] NaCl 0.9% (NS) bolus infusion 500 mL 2021-04 23:30: 00 04-12 23:47 :00 No 500mL at 999 mL/hr, 500 mL, IV Infusion, ONCE, 1 dose, On [place] 04/12/22 at 1730, CECILIA [facility] morpHINE (4 mg/mL) injection 4 mg 2021-04 22:45: 00 04-12 23:03 :00 No 4mg 4 mg, Slow IV Push, ONCE, 1 dose, On [place] 04/12/22 at 1645, STAT [facility] ampicillin- sulbactam (UNASYN) 3 g in NaCl 0.9% (NS) 100 mL MINI-BAG 2021-04 22:45: 00 04-12 23:34 :00 No 3g 3 g, IV Piggyback, ONCE, 1 dose, On [place] 04/12/22 at 1645, Administer over 30 Minutes, 100 mL
Reas on for Anti-Infec tive: Documented Infection< br>Documen colleen Infection Site: HEENT
D uration of Therapy: 7 days [facility] HYDROcodone -acetaminop hen 5-325 mg tablet 2021-04 00:00: 00 04-20 05:59 :00 No [id number] 1{tbl} Take 1 tablet by mouth every 6 (six) hours as needed for Pain (scale 7-10) for up to 7 days. Indication s: acute pain [facility] dexamethaso ne sod phos PF injection 10 mg 2021-04 06:30: 00 04-09 06:32 :00 No 10mg 10 mg, Oral, ONCE, 1 dose, On Sat04/09/22 at 0030, 1 mL [facility] Vyvanse 60 MG Vyvanse 60 [...] Take 50 mg by mouth every morning. [facility] pantoprazol e 40 mg EC tablet 11-13 15:00: 18 Yes 40mg Take 40 mg by mouth in the morning. [facility] ibuprofen 600 mg tablet 11-13 15:00: 18 Yes 600mg Take 600 mg by mouth in the morning. [facility] aspirin 325 mg tablet 11-13 00:00: 00 12-12 04:59 :00 No [id number] 325mg Take 1 tablet by mouth in the morning and 1 tablet in the evening. Take with meals. Do all this for 28 days. [facility] Medrol 4 MG Medrol 4 MG 6 00:00: 00 10-23 00:00 :00 No Medrol 4 MG Vyvanse 60 MG Vyvanse 60 MG 5- 00:00: 00 No 1{capsu le_in_t he_morn ing} QD Vyvanse 60 MG Vyvanse 60 MG Vyvanse 60 MG 4- 00:00: 00 No 1{capsu le_in_t he_morn ing} QD Vyvanse 60 MG valACYclovi r HCl 1 GM valACYclovi r HCl 1 GM 3 00:00: 00 09-11 00:00 :00 No 1{table t} QD valACYclov ir HCl 1 GM Vyvanse 60 MG Vyvanse 60 MG 3 [...] MG Vyvanse 60 MG Vyvanse 60 MG 24 00:00: 00 No 1{capsu le_in_t he_morn ing} QD Vyvanse 60 MG Nystatin [id number] UNIT/ML Nystatin [id number] UNIT/ML 0 20 00:00: 00 01-23 00:00 :00 No QID Nystatin [id number] UNIT/ML Vitamin B12 (Cyanocobal patel) Vitamin B12 (Cyanocobal patel) 2019-0 01-17 00:00: 00 No 1000ug [facility] Vitamin B12 (Cyanocobal patel) Vitamin B12 (Cyanocobal patel) 0 01-17 00:00: 00 No 1000ug [facility] Vitamin B12 (Cyanocobal patel) Vitamin B12 (Cyanocobal patel) 0 01-17 00:00: 00 No 1000ug [facility] Vitamin B12 (Cyanocobal patel) Vitamin B12 (Cyanocobal patel) 0 01-17 00:00: 00 No 1000ug [facility] Vitamin B12 (Cyanocobal patel) Vitamin B12 (Cyanocobal patel) 0 01-17 00:00: 00 No 1000ug [facility] Vitamin B12 (Cyanocobal patel) Vitamin B12 (Cyanocobal patel) 0 01-17 00:00: 00 No 1000ug [facility] Vitamin B12 (Cyanocobal patel) Vitamin B12 (Cyanocobal patel) 0 01-17 00:00: 00 No 1000ug [facility] Vitamin B12 (Cyanocobal patel) Vitamin B12 (Cyanocobal patel) 0 01-17 00:00: 00 No 1000ug [facility] Vitamin B12 (Cyanocobal patel) Vitamin B12 (Cyanocobal patel) 0 - 00:00: 00 No 1000ug [facility] Vitamin B12 (Cyanocobal patel) Vitamin B12 (Cyanocobal patel) 2019-0 01-17 00:00: 00 No 1000ug [facility] Vitamin B12 (Cyanocobal patel) Vitamin B12 (Cyanocobal patel) 0 01-17 00:00: 00 No 1000ug [facility] Vitamin B12 (Cyanocobal patel) Vitamin B12 (Cyanocobal patel) 2020-0 9 00:00: 00 No 1000ug [facility] Vitamin B12 (Cyanocobal patel) Vitamin B12 (Cyanocobal patel) 2020-0 01-17 00:00: 00 No 1000ug [facility] Vitamin B12 (Cyanocobal patel) Vitamin B12 (Cyanocobal patel) 0 01-17 00:00: 00 No 1000ug [facility] Vitamin B12 (Cyanocobal paetl) Vitamin B12 (Cyanocobal patel) 2019-0 01-17 00:00: 00 No 1000ug [facility] Vitamin B12 (Cyanocobal patel) Vitamin B12 (Cyanocobal patel) 2019-0 01-17 00:00: 00 No 1000ug [facility] Vitamin B12 (Cyanocobal patel) Vitamin B12 (Cyanocobal patel) 2019-0 01-17 00:00: 00 No 1000ug [facility] Vitamin B12 (Cyanocobal patel) Vitamin B12 (Cyanocobal patel) 2019-0 01-17 00:00: 00 No 1000ug [facility] Vitamin B12 (Cyanocobal patel) Vitamin B12 (Cyanocobal patel) 2019-0 01-17 00:00: 00 No 1000ug [facility] Vitamin B12 (Cyanocobal patel) Vitamin B12 (Cyanocobal patel) 2019-0 28 00:00: 00 No 1000ug [facility] Vitamin B12 (Cyanocobal patel) Vitamin B12 (Cyanocobal patel) 2020-0 01-17 00:00: 00 No 1000ug [facility] Vitamin B12 (Cyanocobal patel) Vitamin B12 (Cyanocobal patel) 0 01-17 00:00: 00 No 1000ug [facility] Vitamin B12 (Cyanocobal patel) Vitamin B12 (Cyanocobal patel) 2020-0 28 00:00: 00 No 1000ug [facility] Vitamin B12 (Cyanocobal patel) Vitamin B12 (Cyanocobal patel) 0 01-17 00:00: 00 No 1000ug [facility] Medrol Medrol 2019-0 8-18 00:00: 00 12-13 00:00 :00 No Leander Shepard as directed [facility] Solumedrol 125mg/2ml Solumedrol 125mg/2ml 2019-0 8-17 00:00: 00 No 42mg [facility] Solumedrol 125mg/2ml Solumedrol 125mg/2ml 2019-0 8-17 00:00: 00 No 42mg [facility] Solumedrol 125mg/2ml Solumedrol 125mg/2ml 2019-0 8-17 00:00: 00 No 42mg [facility] Solumedrol 125mg/2ml Solumedrol 125mg/2ml 2019-0 8-17 00:00: 00 No 42mg [facility] Solumedrol 125mg/2ml Solumedrol 125mg/2ml 2019-0 8-17 00:00: 00 No 42mg [facility] Solumedrol 125mg/2ml Solumedrol 125mg/2ml 2019-0 8-17 00:00: 00 No 42mg [facility] Solumedrol 125mg/2ml Solumedrol 125mg/2ml 2019-0 8-17 00:00: 00 No 42mg [facility] Solumedrol 125mg/2ml Solumedrol 125mg/2ml 2019-0 8-17 00:00: 00 No 42mg [facility] Solumedrol 125mg/2ml Solumedrol 125mg/2ml 2019-0 8-17 00:00: 00 No 42mg [facility] Solumedrol 125mg/2ml Solumedrol 125mg/2ml 2019-0 8-17 00:00: 00 No 42mg [facility] Solumedrol 125mg/2ml Solumedrol 125mg/2ml 2019-0 8-17 00:00: 00 No 42mg [facility] Solumedrol 125mg/2ml Solumedrol 125mg/2ml 2019-0 8-17 00:00: 00 No 42mg [facility] Solumedrol 125mg/2ml Solumedrol 125mg/2ml 2019-0 8-17 00:00: 00 No 42mg [facility] Solumedrol 125mg/2ml Solumedrol 125mg/2ml 2019-0 8-17 00:00: 00 No 42mg [facility] Solumedrol 125mg/2ml Solumedrol 125mg/2ml 2019-0 8-17 00:00: 00 No 42mg [facility] Solumedrol 125mg/2ml Solumedrol 125mg/2ml 2019-0 8-17 00:00: 00 No 42mg [facility] Solumedrol 125mg/2ml Solumedrol 125mg/2ml 2019-0 8-17 00:00: 00 No 42mg [facility] Solumedrol 125mg/2ml Solumedrol 125mg/2ml 2019-0 8-17 00:00: 00 No 42mg [facility] Solumedrol 125mg/2ml Solumedrol 125mg/2ml 2019-0 8-17 00:00: 00 No 42mg [facility] Solumedrol 125mg/2ml Solumedrol 125mg/2ml 2019-0 8-17 00:00: 00 No 42mg [facility] Solumedrol 125mg/2ml Solumedrol 125mg/2ml 2019-0 8-17 00:00: 00 No 42mg [facility] Solumedrol 125mg/2ml Solumedrol 125mg/2ml 2019-0 8-17 00:00: 00 No 42mg [facility] Solumedrol 125mg/2ml Solumedrol 125mg/2ml 2019-0 8-17 00:00: 00 No 42mg [facility] Solumedrol 125mg/2ml Solumedrol 125mg/2ml 0 12-06 00:00: 00 No 42mg [facility] metoprolol succinate XL 25 mg 24 hr tablet 0 11-05 00:00: 00 Yes [id number] 25mg Take 1 tablet by mouth daily. [facility] Kenalog (Triamcinol one) Kenalog (Triamcinol one) 0 08-14 00:00: 00 No 40mg [facility] Kenalog (Triamcinol one) Kenalog (Triamcinol one) 08-14 00:00: 00 No 40mg [facility] Kenalog (Triamcinol one) Kenalog (Triamcinol one) 08-14 00:00: 00 No 40mg [facility] Kenalog (Triamcinol one) Kenalog (Triamcinol one) 0 08-14 00:00: 00 No 40mg [facility] Kenalog (Triamcinol one) Kenalog (Triamcinol one) 0 08-14 00:00: 00 No 40mg [facility] Kenalog (Triamcinol one) Kenalog (Triamcinol one) 0 08-14 00:00: 00 No 40mg [facility] Kenalog (Triamcinol one) Kenalog (Triamcinol one) 0 08-14 00:00: 00 No 40mg [facility] Kenalog (Triamcinol one) Kenalog (Triamcinol one) 0 08-14 00:00: 00 No 40mg [facility] Kenalog (Triamcinol one) Kenalog (Triamcinol one) 0 08-14 00:00: 00 No 40mg [facility] Kenalog (Triamcinol one) Kenalog (Triamcinol one) 0 08-14 00:00: 00 No 40mg [facility] Kenalog (Triamcinol one) Kenalog (Triamcinol one) 0 08-14 00:00: 00 No 40mg [facility] Kenalog (Triamcinol one) Kenalog (Triamcinol one) 0 08-14 00:00: 00 No 40[facility] Kenalog (Triamcinol one) Kenalog (Triamcinol one) 0 08-14 00:00: 00 No 40[facility] Kenalog (Triamcinol one) Kenalog (Triamcinol one) 0 08-14 00:00: 00 No 40[facility] Kenalog (Triamcinol one) Kenalog (Triamcinol one) 0 08-14 00:00: 00 No 40[facility] Kenalog (Triamcinol one) Kenalog (Triamcinol one) 0 08-14 00:00: 00 No 40[facility] Kenalog (Triamcinol one) Kenalog (Triamcinol one) 0 08-14 00:00: 00 No 40mg [facility] Kenalog (Triamcinol one) Kenalog (Triamcinol one) 0 08-14 00:00: 00 No 40[facility] Kenalog (Triamcinol one) Kenalog (Triamcinol one) 0 08-14 00:00: 00 No 40[facility] Kenalog (Triamcinol one) Kenalog (Triamcinol one) 0 08-14 00:00: 00 No 40[facility] Kenalog (Triamcinol one) Kenalog (Triamcinol one) 0 08-14 00:00: 00 No 40[facility] Kenalog (Triamcinol one) Kenalog (Triamcinol one) 0 08-14 00:00: 00 No 40[facility] Kenalog (Triamcinol one) Kenalog (Triamcinol one) 08-14 00:00: 00 No 40mg [facility] Kenalog (Triamcinol one) Kenalog (Triamcinol one) 08-14 00:00: 00 No 40mg [facility] Pantoprazol e Sodium 40 MG Pantoprazol [...] Comments Source TD Pres-Free 2023-10-18 00:00:00 Completed [facility] TD Pres-Free 2023-10-18 00:00:00 Completed [facility] TD Pres-Free 2023-10-18 00:00:00 Completed [facility] Influenza High Dose 2022-02-11 00:00:00 Completed [facility] Influenza High Dose 2022-02-11 00:00:00 Completed [facility] Influenza High Dose 2022-02-11 00:00:00 Completed [facility] Influenza High Dose 2022-02-11 00:00:00 Completed [facility] Influenza High Dose 2022-02-11 00:00:00 Completed [facility] Influenza High Dose 2022-02-11 00:00:00 Completed [facility] Influenza, High-Dose, Trivalent, PF (FLUZONE) 2022-02-11 00:00:00 Completed [facility] Influenza, High-Dose, Trivalent, PF (FLUZONE) 2022-02-11 00:00:00 Completed [facility] Influenza, High-Dose, Trivalent, PF (FLUZONE) 2022-02-11 00:00:00 Completed [facility] HPV9 2021-08-14 00:00:00 Completed [facility] HPV9 2021-08-14 00:00:00 Completed [facility] HPV9 2021-08-14 00:00:00 Completed [facility] HPV9 2021-08-14 00:00:00 Completed [facility] HPV9 2021-08-14 00:00:00 Completed [facility] HPV9 2021-08-14 00:00:00 Completed [facility] HPV9 2021-08-14 00:00:00 Completed [facility] HPV9 2021-08-14 00:00:00 Completed [facility] HPV9 2021-08-14 00:00:00 Completed [facility] HPV9 2021-08-14 00:00:00 Completed [facility] HPV9 2021-08-14 00:00:00 Completed [facility] HPV9 2021-08-14 00:00:00 Completed [facility] HPV9 2021-08-14 00:00:00 Completed HPV9 2021-08-14 00:00:00 Completed HPV9 2021-08-14 00:00:00 Completed HPV9 2021-07-13 00:00:00 Completed [facility] HPV9 2021-07-13 00:00:00 Completed [facility] HPV9 2021-07-13 00:00:00 Completed [facility] HPV9 2021-07-13 00:00:00 Completed [facility] HPV9 2021-07-13 00:00:00 Completed [facility] HPV9 2021-07-13 00:00:00 Completed [facility] HPV9 2021-07-13 00:00:00 Completed [facility] HPV9 2021-07-13 00:00:00 Completed [facility] HPV9 2021-07-13 00:00:00 Completed [facility] HPV9 2021-07-13 00:00:00 Completed [facility] HPV9 2021-07-13 00:00:00 Completed [facility] HPV9 2021-07-13 00:00:00 Completed [facility] HPV9 2021-07-13 00:00:00 Completed [facility] HPV9 2021-07-13 00:00:00 Completed [facility] HPV9 2021-07-13 00:00:00 Completed [facility] Influenza Virus Vaccine Quad IM, Preserv and ABX Free 6 MO-64 YRS 2021-03-07 00:00:00 Completed [facility] Influenza Virus Vaccine Quad IM, Preserv and ABX Free 6 MO-64 YRS 2021-03-07 00:00:00 Completed [facility] Influenza Virus Vaccine Quad IM, Preserv and ABX Free 6 MO-64 YRS 2021-03-07 00:00:00 Completed [facility] Influenza Virus Vaccine Quad IM, Preserv and ABX Free 6 MO-64 YRS 2021-03-07 00:00:00 Completed [facility] Influenza Virus Vaccine Quad IM, Preserv and ABX Free 6 MO-64 YRS 2021-03-07 00:00:00 Completed [facility] Influenza Virus Vaccine Quad IM, Preserv and ABX Free 6 MO-64 YRS 2021-03-07 00:00:00 Completed [facility] Influenza Virus Vaccine Quad IM, Preserv and ABX Free 6 MO-64 YRS 2021-03-07 00:00:00 Completed [facility] Influenza Virus Vaccine Quad IM, Preserv and ABX Free 6 MO-64 YRS 2021-03-07 00:00:00 Completed [facility] Influenza Virus Vaccine Quad IM, Preserv and ABX Free 6 MO-64 YRS 2021-03-07 00:00:00 Completed [facility] Influenza Virus Vaccine Quad IM, Preserv and ABX Free 6 MO-64 YRS 2021-03-07 00:00:00 Completed [facility] Influenza Virus Vaccine Quad IM, Preserv and ABX Free 6 MO-64 YRS 2021-03-07 00:00:00 Completed [facility] Influenza Virus Vaccine Quad IM, Preserv and ABX Free 6 MO-64 YRS 2021-03-07 00:00:00 Completed [facility] Influenza Virus Vaccine Quad IM, Preserv and ABX Free 6 MO-64 YRS (FLUCELVAX) 2021-03-07 00:00:00 Completed [facility] Influenza Virus Vaccine Quad IM, Preserv and ABX Free 6 MO-64 YRS (FLUCELVAX) 2021-03-07 00:00:00 Completed [facility] Influenza Virus Vaccine Quad IM, Preserv and ABX Free 6 MO-64 YRS (FLUCELVAX) 2021-03-07 00:00:00 Completed [facility] Vitamin B12 (Cyanocobalamin) Vitamin B12 (Cyanocobalamin) 2020-01-18 16:50:00 Completed [facility] Solumedrol 125mg/2ml Solumedrol 125mg/2ml 2019-12-07 14:03:[address] [facility] 2018-12-24 10:23:[address] [facility] 2018-12-24 10:23:[address] [facility] 2018-12-24 10:23:[address] [facility] 2018-12-24 10:23:[address] [facility] 2018-12-24 10:23:[address] [facility] 2018-12-24 10:23:[address] [facility] 2018-12-24 10:23:[address] [facility] 2018-12-24 00:00:00 Completed [facility] Kenalog (Triamcinolone) Kenalog (Triamcinolone) 2018-08-14 09:05:00 Completed [facility] Influenza Virus Vaccine Quad ID 18-64 YRS 2017-01-18 00:00:00 Completed [facility] Influenza Virus Vaccine Quad ID 18-64 YRS 2017-01-18 00:00:00 Completed [facility] Influenza Virus Vaccine Quad ID 18-64 YRS 2017-01-18 00:00:00 Completed [facility] Influenza Virus Vaccine Quad ID 18-64 YRS 2017-01-18 00:00:00 Completed [facility] Influenza Virus Vaccine Quad ID 18-64 YRS 2017-01-18 00:00:00 Completed [facility] Influenza Virus Vaccine Quad ID 18-64 YRS 2017-01-18 00:00:00 Completed [facility] Influenza Virus Vaccine Quad ID 18-64 YRS 2017-01-18 00:00:00 Completed [facility] Influenza Virus Vaccine Quad ID 18-64 YRS 2017-01-18 00:00:00 Completed [facility] Influenza Virus Vaccine Quad ID 18-64 YRS 2017-01-18 00:00:00 Completed [facility] Influenza Virus Vaccine Quad ID 18-64 YRS 2017-01-18 00:00:00 Completed [facility] Influenza Virus Vaccine Quad ID 18-64 YRS 2017-01-18 00:00:00 Completed [facility] Influenza Virus Vaccine Quad ID 18-64 YRS 2017-01-18 00:00:00 Completed [facility] Influenza Virus Vaccine Quad ID 18-64 YRS 2017-01-18 00:00:00 Completed [facility] Influenza Virus Vaccine Quad ID 18-64 YRS 2017-01-18 00:00:00 Completed [facility] Influenza Virus Vaccine Quad ID 18-64 YRS 2017-01-18 00:00:00 Completed [facility] Influenza Virus Vaccine Quad IM 3+ YRS 2016-08-21 00:00:00 Completed [facility] Influenza Virus Vaccine Quad IM 3+ YRS 2016-08-21 00:00:00 Completed [facility] Influenza Virus Vaccine Quad IM 3+ YRS 2016-08-21 00:00:00 Completed [facility] Influenza Virus Vaccine Quad IM 3+ YRS 2016-08-21 00:00:00 Completed [facility] Influenza Virus Vaccine Quad IM 3+ YRS 2016-08-21 00:00:00 Completed [facility] Influenza Virus Vaccine Quad IM 3+ YRS 2016-08-21 00:00:00 Completed [facility] Influenza Virus Vaccine Quad IM 3+ YRS 2016-08-21 00:00:00 Completed [facility] Influenza Virus Vaccine Quad IM 3+ YRS 2016-08-21 00:00:00 Completed [facility] Influenza Virus Vaccine Quad IM 3+ YRS 2016-08-21 00:00:00 Completed [facility] Influenza Virus Vaccine Quad IM 3+ YRS 2016-08-21 00:00:00 Completed [facility] Influenza Virus Vaccine Quad IM 3+ YRS 2016-08-21 00:00:00 Completed [facility] Influenza Virus Vaccine Quad IM 3+ YRS 2016-08-21 00:00:00 Completed [facility] Influenza Virus Vaccine Quad IM 3+ YRS 2016-08-21 00:00:00 Completed [facility] Influenza Virus Vaccine Quad IM 3+ YRS 2016-08-21 00:00:00 Completed [facility] Influenza Virus Vaccine Quad IM 3+ YRS 2016-08-21 00:00:00 Completed [facility] Influenza Virus Vaccine 2016-08-20 00:00:00 Completed [facility] Influenza Virus Vaccine 2016-08-20 00:00:00 Completed [facility] Influenza Virus Vaccine 2016-08-20 00:00:00 Completed [facility] Influenza Virus Vaccine 2016-08-20 00:00:00 Completed [facility] Influenza Virus Vaccine 2016-08-20 00:00:00 Completed [facility] Influenza Virus Vaccine 2016-08-20 00:00:00 Completed [facility] Influenza Virus Vaccine 2016-08-20 00:00:00 Completed [facility] Influenza Virus Vaccine 2016-08-20 00:00:00 Completed [facility] Influenza Virus Vaccine 2016-08-20 00:00:00 Completed [facility] Influenza Virus Vaccine 2016-08-20 00:00:00 Completed [facility] Influenza Virus Vaccine 2016-08-20 00:00:00 Completed [facility] Influenza Virus Vaccine 2016-08-20 00:00:00 Completed [facility] Influenza Virus Vaccine 2016-08-20 00:00:00 Completed Influenza Virus Vaccine 2016-08-20 00:00:00 Completed Influenza Virus Vaccine 2016-08-20 00:00:00 Completed [facility] Afluria Unknown Completed [facility] Afluria Afluria Unknown Completed [facility] Afluria Afluria Unknown Completed [facility] Afluria Afluria Unknown Completed [facility] Afluria Afluria Unknown Com[facility] Afluria Afluria Unknown Completed [facility] Afluria Afluria Unknown Completed [facility] Afluria Afluria Unknown Completed [facility] Afluria Afluria Unknown Completed [facility] - [facility] Afluria Afluria Unknown Completed [facility] Afluria Afluria Unknown Completed [facility] Afluria Afluria Unknown Completed [facility] - [facility] Afluria Afluria Unknown Completed [facility] - [facility] Afluria Afluria Unknown Completed [facility] - [facility] Afluria Afluria Unknown Completed [facility] Afluria Afluria Unknown [facility] Afluria Afluria Unknown [facility] Afluria Afluria Unknown [facility] Influenza Virus Vaccine Quad IM 3+ YRS Unknown Completed [facility] Influenza Virus Vaccine Quad ID 18-64 YRS Unknown Completed [facility] Influenza Virus Vaccine Unknown Completed [facility] Influenza Virus Vaccine Quad IM, Preserv and ABX Free 6 MO-64 YRS (FLUCELVAX) Unknown Completed [facility] Influenza Virus Vaccine Quad IM 3+ YRS Unknown Completed [facility] Influenza Virus Vaccine Quad ID 18-64 YRS Unknown Completed [facility] Influenza Virus Vaccine Unknown Completed [facility] Influenza Virus Vaccine Quad IM, Preserv and ABX Free 6 MO-64 YRS (FLUCELVAX) Unknown Completed [facility] HPV9 Unknown Completed [facility] Influenza High Dose Unknown Completed [facility] Influenza Virus Vaccine Quad IM 3+ YRS Unknown Completed [facility] Influenza Virus Vaccine Quad ID 18-64 YRS Unknown Completed [facility] Influenza Virus Vaccine Unknown Completed [facility] Influenza Virus Vaccine Quad IM, Preserv and ABX Free 6 MO-64 YRS (FLUCELVAX) Unknown Completed [facility] Influenza High Dose Unknown Completed [facility] HPV9 Unknown Completed [facility] Influenza Virus Vaccine Quad IM 3+ YRS Unknown Completed [facility] Influenza Virus Vaccine Quad ID 18-64 YRS Unknown Completed [facility] Influenza Virus Vaccine Unknown Completed [facility] Influenza Virus Vaccine Quad IM, Preserv and ABX Free 6 MO-64 YRS (FLUCELVAX) Unknown Completed [facility] HPV9 Unknown Completed [facility] Influenza High Dose Unknown Completed [facility] Influenza Virus Vaccine Quad IM 3+ YRS Unknown Completed [facility] Influenza Virus Vaccine Quad ID 18-64 YRS Unknown Completed [facility] Influenza Virus Vaccine Unknown Completed [facility] Influenza Virus Vaccine Quad IM, Preserv and ABX Free 6 MO-64 YRS (FLUCELVAX) Unknown Completed [facility] HPV9 Unknown Completed [facility] Influenza High Dose Unknown Completed [facility] Influenza Virus Vaccine Quad IM 3+ YRS Unknown Completed [facility] Influenza Virus Vaccine Quad ID 18-64 YRS Unknown Completed [facility] Influenza Virus Vaccine Unknown Completed [facility] Influenza Virus Vaccine Quad IM, Preserv and ABX Free 6 MO-64 YRS (FLUCELVAX) Unknown Completed [facility] HPV9 Unknown Completed [facility] Influenza High Dose Unknown Completed [facility] Influenza Virus Vaccine Quad IM 3+ YRS Unknown Completed [facility] Influenza Virus Vaccine Quad ID 18-64 YRS Unknown Completed [facility] Influenza Virus Vaccine Unknown Completed [facility] Influenza Virus Vaccine Quad IM, Preserv and ABX Free 6 MO-64 YRS (FLUCELVAX) Unknown Completed [facility] HPV9 Unknown Completed [facility] Influenza High Dose Unknown Completed [facility] Influenza Virus Vaccine Quad IM 3+ YRS Unknown Completed [facility] Influenza Virus Vaccine Quad ID 18-64 YRS Unknown Completed [facility] Influenza Virus Vaccine Unknown Completed [facility] Influenza Virus Vaccine Quad IM, Preserv and ABX Free 6 MO-64 YRS (FLUCELVAX) Unknown Completed [facility] HPV9 Unknown Completed [facility] Influenza High Dose Unknown Completed [facility] Influenza Virus Vaccine Quad IM 3+ YRS Unknown Completed [facility] Influenza Virus Vaccine Quad ID 18-64 YRS Unknown Completed [facility] Influenza Virus Vaccine Unknown Completed [facility] Influenza Virus Vaccine Quad IM, Preserv and ABX Free 6 MO-64 YRS (FLUCELVAX) Unknown Completed [facility] HPV9 Unknown Completed [facility] Influenza High Dose Unknown Completed [facility] Influenza Virus Vaccine Quad IM 3+ YRS Unknown Completed [facility] Influenza Virus Vaccine Quad ID 18-64 YRS Unknown Completed [facility] Influenza Virus Vaccine Unknown Completed [facility] Influenza Virus Vaccine Quad IM, Preserv and ABX Free 6 MO-64 YRS (FLUCELVAX) Unknown Completed [facility] HPV9 Unknown Completed [facility] Influenza High Dose Unknown Completed [facility] TD Pres-Free Unknown Completed [facility] Influenza Virus Vaccine Quad IM 3+ YRS Unknown Completed [facility] Influenza Virus Vaccine Quad ID 18-64 YRS Unknown Completed [facility] Influenza Virus Vaccine Unknown Completed [facility] Influenza Virus Vaccine Quad IM, Preserv and ABX Free 6 MO-64 YRS (FLUCELVAX) Unknown Completed [facility] HPV9 Unknown Completed [facility] Influenza High Dose Unknown Completed [facility] TD Pres-Free Unknown [facility] Virus Vaccine Quad IM 3+ YRS Unknown Completed [facility] Influenza Virus Vaccine Quad ID 18-64 YRS Unknown Completed [facility] Influenza Virus Vaccine Unknown Completed [facility] Influenza Virus Vaccine Quad IM, Preserv and ABX Free 6 MO-64 YRS (FLUCELVAX) Unknown Completed [facility] HPV9 Unknown Completed [facility] Influenza High Dose Unknown Completed [facility] TD Pres-Free Unknown [facility] Influenza Virus Vaccine Quad IM 3+ YRS Unknown Completed [facility] Influenza Virus Vaccine Quad ID 18-64 YRS Unknown Completed [facility] Influenza Virus Vaccine Unknown Completed [facility] Influenza Virus Vaccine Quad IM, Preserv and ABX Free 6 MO-64 YRS (FLUCELVAX) Unknown Completed [facility] HPV9 Unknown Completed [facility] Influenza High Dose Unknown Completed [facility] TD Pres-Free Unknown Completed [facility] Influenza Virus Vaccine Quad IM 3+ YRS Unknown Completed [facility] Influenza Virus Vaccine Quad ID 18-64 YRS Unknown Completed [facility] Influenza Virus Vaccine Unknown Completed [facility] Influenza Virus Vaccine Quad IM, Preserv and ABX Free 6 MO-64 YRS (FLUCELVAX) Unknown Completed [facility] HPV9 Unknown Completed [facility] Influenza High Dose Unknown Completed [facility] TD Pres-Free Unknown Completed [facility] Influenza Virus Vaccine Quad IM 3+ YRS Unknown Completed [facility] Influenza Virus Vaccine Quad ID 18-64 YRS Unknown Completed [facility] Influenza Virus Vaccine Unknown Completed [facility] Influenza Virus Vaccine Quad IM, Preserv and ABX Free 6 MO-64 YRS (FLUCELVAX) Unknown Completed [facility] HPV9 Unknown Completed [facility] Influenza High Dose Unknown Completed [facility] TD Pres-Free Unknown Completed [facility] Influenza Virus Vaccine Quad IM 3+ YRS Unknown Completed [facility] Influenza Virus Vaccine Quad ID 18-64 YRS Unknown Completed [facility] Influenza Virus Vaccine Unknown Completed [facility] Influenza Virus Vaccine Quad IM, Preserv and ABX Free 6 MO-64 YRS (FLUCELVAX) Unknown Completed [facility] HPV9 Unknown Completed [facility] Influenza High Dose Unknown Completed [facility] TD Pres-Free Unknown [facility] Influenza Virus Vaccine Quad IM 3+ YRS Unknown Completed [facility] Influenza Virus Vaccine Quad ID 18-64 YRS Unknown Completed [facility] Influenza Virus Vaccine Unknown Completed [facility] Influenza Virus Vaccine Quad IM, Preserv and ABX Free 6 MO-64 YRS (FLUCELVAX) Unknown Completed [facility] HPV9 Unknown Completed [facility] Influenza High Dose Unknown Completed [facility] TD Pres-Free Unknown Completed [facility] Influenza Virus Vaccine Quad IM 3+ YRS Unknown Completed [facility] Influenza Virus Vaccine Quad ID 18-64 YRS Unknown Completed [facility] Influenza Virus Vaccine Unknown Completed [facility] Influenza Virus Vaccine Quad IM, Preserv and ABX Free 6 MO-64 YRS (FLUCELVAX) Unknown Completed [facility] HPV9 Unknown Completed [facility] Influenza High Dose Unknown Completed [facility] TD Pres-Free Unknown [facility] Influenza Virus Vaccine Quad IM 3+ YRS Unknown Completed [facility] Influenza Virus Vaccine Quad ID 18-64 YRS Unknown Completed [facility] Influenza Virus Vaccine Unknown Completed [facility] Influenza Virus Vaccine Quad IM, Preserv and ABX Free 6 MO-64 YRS (FLUCELVAX) Unknown Completed [facility] HPV9 Unknown Completed [facility] Influenza High Dose Unknown Completed [facility] TD Pres-Free Unknown Completed [facility] Influenza Virus Vaccine Quad IM 3+ YRS Unknown Completed [facility] Influenza Virus Vaccine Quad ID 18-64 YRS Unknown Completed [facility] Influenza Virus Vaccine Unknown Completed [facility] Influenza Virus Vaccine Quad IM, Preserv and ABX Free 6 MO-64 YRS (FLUCELVAX) Unknown Completed [facility] HPV9 Unknown Completed [facility] Influenza High Dose Unknown Completed [facility] TD Pres-Free Unknown Completed [facility] Influenza Virus Vaccine Quad IM 3+ YRS Unknown Completed [facility] Influenza Virus Vaccine Quad ID 18-64 YRS Unknown Completed [facility] Influenza Virus Vaccine Unknown Completed [facility] Influenza Virus Vaccine Quad IM, Preserv and ABX Free 6 MO-64 YRS (FLUCELVAX) Unknown Completed [facility] HPV9 Unknown Completed [facility] Influenza High Dose Unknown Completed [facility] TD Pres-Free Unknown Completed [facility] Influenza Virus Vaccine Quad IM 3+ YRS Unknown Completed [facility] Influenza Virus Vaccine Quad ID 18-64 YRS Unknown Completed [facility] Influenza Virus Vaccine Unknown Completed [facility] Influenza Virus Vaccine Quad IM, Preserv and ABX Free 6 MO-64 YRS (FLUCELVAX) Unknown Completed [facility] HPV9 Unknown Completed [facility] Influenza High Dose Unknown Completed [facility] TD Pres-Free Unknown Completed [facility] Influenza Virus Vaccine Quad IM 3+ YRS Unknown Completed [facility] Influenza Virus Vaccine Quad ID 18-64 YRS Unknown Completed [facility] Influenza Virus Vaccine Unknown Completed [facility] Influenza Virus Vaccine Quad IM, Preserv and ABX Free 6 MO-64 YRS (FLUCELVAX) Unknown Completed [facility] HPV9 Unknown Completed [facility] Influenza, High-Dose, Trivalent, PF (FLUZONE) Unknown Completed [facility] TD Pres-Free Unknown Completed [facility] Vital Signs Vital Name Observation Time Observation Value Comments Theo blanco Heart rate 2024-04-25 14:53:02 106 /min Wyatt [facility] Respiratory rate 2024-04-25 14:53:02 18 /min [facility] saturation in Arterial blood by Pulse oximetry 2024-04-25 14:53:02 99 /min [facility] Systolic blood pressure 2024-04-25 14:52:32 121 mm[Hg] [facility] Diastolic blood pressure 2024-04-25 14:52:32 82 mm[Hg] [facility] Body temperature 2024-04-25 14:52:17 [facility] 2024-04-24 14:39:00 170.2 cm [facility] Body weight 2024-04-24 14:39:00 49.896 kg [facility] BMI 2024-04-24 14:39:00 17.23 kg/m2 [facility] Heart rate 2024-04-25 14:53:02 106 /min [facility] Respiratory rate 2024-04-25 14:53:02 18 /[facility] Arterial blood by Pulse oximetry 2024-04-25 14:53:02 99 /min [facility] Systolic blood pressure 2024-04-25 14:52:32 121 mm[Hg] [facility] Diastolic blood pressure 2024-04-25 14:52:32 82 mm[Hg] [facility] Body temperature 2024-04-25 14:52:[address] [facility] Body height 2024-04-24 14:39:00 170.2 cm [facility] Body weight 2024-04-24 14:39:00 49.896 kg [facility] BMI 2024-04-24 14:39:00 17.23 kg/m2 [facility] Respiratory rate 2024-04-05 08:56:00 19 /min [facility] Systolic blood pressure 2024-04-05 08:30:00 129 mm[Hg] [facility] Diastolic blood pressure 2024-04-05 08:30:00 94 mm[Hg] [facility] Heart rate 2024-04-05 05:12:00 97 /min [facility] Body temperature 2024-04-05 05:12:00 36.83 [facility] Body height 2024-04-05 05:12:00 170.2 cm [facility] Body weight 2024-04-05 05:12:00 54.432 kg [facility] BMI 2024-04-05 05:12:00 18.79 kg/m2 [facility] Oxygen saturation in Arterial blood by Pulse oximetry 2024-04-05 05:12:00 96 /min [facility] Systolic blood pressure 2024-03-31 00:32:00 130 mm[Hg] [facility] Diastolic blood pressure 2024-03-31 00:32:00 104 mm[Hg] [facility] Heart rate 2024-03-31 00:32:00 125 /min [facility] Body temperature 2024-03-31 00:32:00 36.72 [facility] Respiratory rate 2024-03-31 00:32:00 16 /min [facility] Body height 2024-03-31 00:32:00 170.2 cm [facility] Body weight 2024-03-31 00:32:00 54.432 kg [facility] BMI 2024-03-31 00:32:00 18.79 kg/m2 [facility] Oxygen saturation in Arterial blood by Pulse oximetry 2024-03-31 00:32:00 100 /min [facility] Systolic blood pressure 2024-03-30 08:58:00 144 mm[Hg] [facility] Diastolic blood pressure 2024-03-30 08:58:00 94 mm[Hg] [facility] Heart rate 2024-03-30 08:58:00 115 /min [facility] Body temperature 2024-03-30 08:58:00 36.78 [facility] Respiratory rate 2024-03-30 08:58:00 20 /min [facility] Body height 2024-03-30 08:58:00 170.2 cm [facility] Body weight 2024-03-30 08:58:00 54.432 kg [facility] BMI 2024-03-30 08:58:00 18.79 kg/m2 [facility] Oxygen saturation in Arterial blood by Pulse oximetry 2024-03-30 08:58:00 100 /min [facility] Systolic blood pressure 2024-02-05 18:15:00 124 mm[Hg] [facility] Diastolic blood pressure 2024-02-05 18:15:00 85 mm[Hg] [facility] Heart rate 2024-02-05 18:15:00 93 /min [facility] Body height 2024-02-05 18:15:00 170.2 cm [facility] Body weight 2024-02-05 18:15:00 56.745 kg [facility] BMI 2024-02-05 18:15:00 19.59 kg/m2 [facility] Systolic blood pressure 2024 21:08:00 114 mm[Hg] [facility] Diastolic blood pressure 2024 21:08:00 85 mm[Hg] [facility] Heart rate 2024 21:08:00 98 /min [facility] [facility] Body temperature 2024 21:08:00 36.56 [facility] Respiratory rate 2024 21:08:00 18 /min [facility] Oxygen saturation in Arterial blood by Pulse oximetry 2024 21:08:00 100 /min [facility] Body height 2024 19:22:00 170.2 cm [facility] Body weight 2024 19:22:00 54.432 kg Univ [facility] BMI 2024 19:22:00 18.79 kg/m2 [facility] Body height 2024-01-23 16:10:00 170.2 cm [facility] Body weight 2024-01-23 16:10:00 54.84 kg Univ [facility] BMI 2024-01-23 16:10:00 18.94 kg/m2 [facility] Body height 2024-01-03 15:39:00 170.2 cm Univ [facility] Body weight 2024-01-03 15:39:00 55.974 [facility] 2024-01-03 15:39:00 19.33 kg/m2 [facility] Body weight 2023-12-28 01:00:00 54.432 kg [facility] BMI 2023-12-28 01:00:00 18.79 kg/m2 [facility] Systolic blood pressure 2023-12-27 23:55:00 113 mm[Hg] [facility] Diastolic blood pressure 2023-12-27 23:55:00 80 mm[Hg] [facility] Heart rate 2023-12-27 23:55:00 92 /min [facility] Respiratory rate 2023-12-27 23:55:00 18 /min [facility] Oxygen saturation in Arterial blood by Pulse oximetry 2023-12-27 23:55:00 100 /min [facility] Body temperature 2023-12-27 20:34:00 37.17 [facility] Systolic blood pressure 2023-12-16 11:22:00 109 mm[Hg] [facility] Diastolic blood pressure 2023-12-16 11:22:00 77 mm[Hg] [facility] Heart rate 2023-12-16 11:22:00 110 /min [facility] Body temperature 2023-12-16 11:22:00 36.72 [facility] Respiratory rate 2023-12-16 11:22:00 20 /min [facility] Body height 2023-12-16 11:22:00 170.2 cm [facility] Body weight 2023-12-16 11:22:00 54.432 kg [facility] BMI 2023-12-16 11:22:00 18.79 kg/m2 [facility] Oxygen saturation in Arterial blood by Pulse oximetry 2023-12-16 11:22:00 100 /min [facility] Systolic blood pressure 2023-12-08 22:00:00 122 mm[Hg] [facility] Diastolic blood pressure 2023-12-08 22:00:00 80 mm[Hg] [facility] Heart rate 2023-12-08 22:00:00 130 /min Unive [facility] Body temperature 2023-12-08 22:00:00 36.67 [facility] Respiratory rate 2023-12-08 22:00:00 18 /min [facility] Oxygen saturation in Arterial blood by Pulse oximetry 2023-12-08 22:00:00 100 /min [facility] Body height 2023-12-08 19:10:00 170.2 cm [facility] Body weight 2023-12-08 19:10:00 53.071 kg [facility] BMI 2023-12-08 19:10:00 18.32 kg/m2 [facility] Systolic blood pressure 2023-12-06 10:00:00 112 mm[Hg] [facility] Diastolic blood pressure 2023-12-06 10:00:00 78 mm[Hg] [facility] Heart rate 2023-12-06 09:21:07 116 /min Unive [facility] Respiratory rate 2023-12-06 09:21:07 20 /min [facility] Oxygen saturation in Arterial blood by Pulse oximetry 2023-12-06 09:21:07 100 /min [facility] Body temperature 2023-12-06 01:47:00 36.67 [facility] Body height 2023-12-06 01:47:00 170.2 cm [facility] Body weight 2023-12-06 01:47:00 53.071 kg [facility] BMI 2023-12-06 01:47:00 18.32 kg/m2 [facility] Systolic blood pressure 2023-12-05 05:00:00 114 mm[Hg] [facility] Diastolic blood pressure 2023-12-05 05:00:00 83 mm[Hg] [facility] Heart rate 2023-12-05 05:00:00 116 /min Unive [facility] Respiratory rate 2023-12-05 05:00:00 20 /min [facility] Oxygen saturation in Arterial blood by Pulse oximetry 2023-12-05 05:00:00 96 /min [facility] Body temperature 2023-12-05 02:52:00 36.94 [facility] Body height 2023-12-05 02:52:00 170.2 cm [facility] Body weight 2023-12-05 02:52:00 53.116 kg [facility] BMI 2023-12-05 02:52:00 18.34 kg/m2 [facility] Systolic blood pressure 2023-11-22 21:46:12 99 mm[Hg] [facility] Diastolic blood pressure 2023-11-22 21:46:12 57 mm[Hg] [facility] Heart rate 2023-11-22 21:46:12 99 /min Unive [facility] Body temperature 2023-11-22 21:46:12 37.17 [facility] Respiratory rate 2023-11-22 21:46:12 16 /min [facility] Oxygen saturation in Arterial blood by Pulse oximetry 2023-11-22 21:46:12 97 /min [facility] Body height 2023-11-22 17:01:00 170.2 cm [facility] Body weight 2023-11-22 17:01:00 53.071 kg [facility] BMI 2023-11-22 17:01:00 18.32 kg/m2 [facility] Systolic blood pressure 2023-11-10 06:38:05 124 mm[Hg] [facility] Diastolic blood pressure 2023-11-10 06:38:05 99 mm[Hg] [facility] Heart rate 2023-11-10 06:38:05 99 /min Unive [facility] Body temperature 2023-11-10 06:38:05 36.67 [facility] Respiratory rate 2023-11-10 06:38:05 16 /min [facility] Oxygen saturation in Arterial blood by Pulse oximetry 2023-11-10 06:38:05 99 /min [facility] Body height 2023-11-10 03:34:00 170.2 cm [facility] Body weight 2023-11-10 03:34:00 47.628 kg [facility] BMI 2023-11-10 03:34:00 16.45 kg/m2 [facility] Systolic blood pressure 2023-11-09 12:26:00 119 mm[Hg] [facility] Diastolic blood pressure 2023-11-09 12:26:00 84 mm[Hg] [facility] Heart rate 2023-11-09 12:26:00 103 /min Unive [facility] Body temperature 2023-11-09 12:26:00 36.89 [facility] Respiratory rate 2023-11-09 12:26:00 20 /min [facility] Oxygen saturation in Arterial blood by Pulse oximetry 2023-11-09 12:26:00 100 /min [facility] Body weight 2023-11-09 08:29:00 53.479 kg [facility] BMI 2023-11-09 08:29:00 18.47 kg/m2 [facility] Body height 2023-11-06 21:32:00 170.2 cm [facility] Systolic blood pressure 2023-10-28 17:30:00 104 mm[Hg] [facility] Diastolic blood pressure 2023-10-28 17:30:00 78 mm[Hg] [facility] Heart rate 2023-10-28 17:30:00 112 /min Unive [facility] Body temperature 2023-10-28 17:30:00 37.06 [facility] Respiratory rate 2023-10-28 17:30:00 20 /min [facility] Oxygen saturation in Arterial blood by Pulse oximetry 2023-10-28 17:30:00 99 /min [facility] Body height 2023-10-28 03:09:00 170.2 cm [facility] Body weight 2023-10-28 03:09:00 52.164 kg [facility] BMI 2023-10-28 03:09:00 18.01 kg/m2 [facility] Systolic blood pressure 2023-10-19 16:14:00 120 mm[Hg] [facility] Diastolic blood pressure 2023-10-19 16:14:00 87 mm[Hg] [facility] Heart rate 2023-10-19 16:14:00 98 /min Unive [facility] Body temperature 2023-10-19 16:14:00 37.67 [facility] Respiratory rate 2023-10-19 16:14:00 18 /min [facility] Oxygen saturation in Arterial blood by Pulse oximetry 2023-10-19 16:14:00 98 /min [facility] Body height 2023-10-19 15:44:00 170.2 cm [facility] Body weight 2023-10-19 15:44:00 52.164 kg [facility] BMI 2023-10-19 15:44:00 18.01 kg/m2 [facility] Systolic blood pressure 2023-10-19 00:36:06 120 mm[Hg] [facility] Diastolic blood pressure 2023-10-19 00:36:06 89 mm[Hg] [facility] Heart rate 2023-10-19 00:36:06 129 /min [facility] Respiratory rate 2023-10-19 00:36:06 15 /min [facility] Oxygen saturation in Arterial blood by Pulse oximetry 2023-10-19 00:36:06 96 /min [facility] Body temperature 2023-10-19 00:32:00 37.11 [facility] Body height 2023-10-19 00:32:00 170.2 cm [facility] Body weight 2023-10-19 00:32:00 52.164 kg [facility] BMI 2023-10-19 00:32:00 18.01 kg/m2 [facility] Systolic blood pressure 2023-09-21 16:40:00 125 mm[Hg] [facility] Diastolic blood pressure 2023-09-21 16:40:00 89 mm[Hg] [facility] Heart rate 2023-09-21 16:40:00 92 /min Unive [facility] Body temperature 2023-09-21 16:40:00 36.11 [facility] Respiratory rate 2023-09-21 16:40:00 19 /min [facility] Oxygen saturation in Arterial blood by Pulse oximetry 2023-09-21 16:40:00 98 /min [facility] Body weight 2023-09-21 07:35:00 52.98 kg [facility] BMI 2023-09-21 07:35:00 18.29 kg/m2 [facility] Body height 2023-09-19 16:50:00 170.2 cm [facility] Systolic blood pressure 2023-09-15 18:00:00 136 mm[Hg] [facility] Diastolic blood pressure 2023-09-15 18:00:00 95 mm[Hg] [facility] Heart rate 2023-09-15 18:00:00 94 /min Unive [facility] Body temperature 2023-09-15 18:00:00 36.83 [facility] Respiratory rate 2023-09-15 18:00:00 10 /min [facility] Oxygen saturation in Arterial blood by Pulse oximetry 2023-09-15 18:00:00 97 /min [facility] Body height 2023-09-15 16:25:00 170.2 cm [facility] Body weight 2023-09-15 16:25:00 53.524 kg [facility] BMI 2023-09-15 16:25:00 18.48 kg/m2 [facility] Systolic blood pressure 2023-09-14 00:00:00 120 mm[Hg] [facility] Diastolic blood pressure 2023-09-14 00:00:00 90 mm[Hg] [facility] Heart rate 2023-09-14 00:00:00 115 /min Unive [facility] Body temperature 2023-09-14 00:00:00 37.06 [facility] Oxygen saturation in Arterial blood by Pulse oximetry 2023-09-14 00:00:00 98 /min [facility] Respiratory rate 2023-09-13 23:03:00 16 /min [facility] Body height 2023-09-13 23:03:00 170.2 cm [facility] Body weight 2023-09-13 23:03:00 53.524 kg [facility] BMI 2023-09-13 23:03:00 18.48 kg/m2 [facility] height 2023-06-11 10:30:00 67 [in_i] Commo n [facility] weight 2023-06-11 10:30:00 110 [lb_av] Comm on [facility] bmi 2023-06-11 10:30:00 17.23 kg/m2 Comm on [facility] Systolic blood pressure 2023-04-30 20:12:00 129 mm[Hg] [facility] Diastolic blood pressure 2023-04-30 20:12:00 87 mm[Hg] [facility] Heart rate 2023-04-30 20:12:00 118 /min [facility] Body temperature 2023-04-30 20:12:00 36.72 [facility] Respiratory rate 2023-04-30 20:12:00 14 /min [facility] Body weight 2023-04-30 20:12:00 48.988 kg [facility] BMI 2023-04-30 20:12:00 16.92 kg/m2 [facility] Oxygen saturation in Arterial blood by Pulse oximetry 2023-04-30 20:12:00 100 /min [facility] Systolic blood pressure 2023-04-27 15:00:00 114 mm[Hg] [facility] Diastolic blood pressure 2023-04-27 15:00:00 86 mm[Hg] [facility] Heart rate 2023-04-27 15:00:00 105 /min [facility] Oxygen saturation in Arterial blood by Pulse oximetry 2023-04-27 15:00:00 99 /min [facility] Respiratory rate 2023-04-27 12:00:00 18 /min [facility] Body temperature 2023-04-27 10:00:00 36 [facility] Body weight 2023-04-27 10:00:00 49.487 kg [facility] BMI 2023-04-27 10:00:00 17.09 kg/m2 [facility] Body height 2023-04-24 21:18:00 170.2 cm [facility] height 2023-03-06 13:10:00 67 [in_i] Commo n [facility] weight 2023-03-06 13:10:00 110 [lb_av] Comm on [facility] bmi 2023-03-06 13:10:00 17.23 kg/m2 Comm on [facility] blood pressure systolic 2023-03-06 13:10:00 129 mm[Hg] [facility] blood pressure diastolic 2023-03-06 13:10:00 84 mm[Hg] [facility] height 2023-01-04 09:20:00 67 [in_i] Commo n [facility] weight 2023-01-04 09:20:00 110 [lb_av] Comm on [facility] bmi 2023-01-04 09:20:00 17.23 kg/m2 Comm on [facility] blood pressure systolic 2023-01-04 09:20:00 123 mm[Hg] [facility] blood pressure diastolic 2023-01-04 09:20:00 70 mm[Hg] [facility] Systolic blood pressure 2022-12-12 14:09:00 135 mm[Hg] [facility] Diastolic blood pressure 2022-12-12 14:09:00 89 mm[Hg] [facility] Heart rate 2022-12-12 14:08:00 123 /min [facility] Body temperature 2022-12-12 14:08:00 36.83 [facility] Respiratory rate 2022-12-12 14:08:00 14 /min [facility] Body weight 2022-12-12 14:08:00 48.535 kg [facility] BMI 2022-12-12 14:08:00 16.76 kg/m2 [facility] Oxygen saturation in Arterial blood by Pulse oximetry 2022-12-12 14:08:00 99 /min [facility] Systolic blood pressure 2022-11-13 20:53:00 121 mm[Hg] [facility] Diastolic blood pressure 2022-11-13 20:53:00 83 mm[Hg] [facility] Heart rate 2022-11-13 20:53:00 108 /min Unive [facility] Body temperature 2022-11-13 20:53:00 37.06 [facility] Respiratory rate 2022-11-13 20:53:00 18 /min [facility] Oxygen saturation in Arterial blood by Pulse oximetry 2022-11-13 20:53:00 100 /min [facility] Body height 2022-11-11 01:42:00 170.2 cm [facility] Body weight 2022-11-11 01:42:00 47.174 kg [facility] BMI 2022-11-11 01:42:00 16.29 kg/m2 [facility] Systolic blood pressure 2022-11-07 16:10:00 146 mm[Hg] [facility] Diastolic blood pressure 2022-11-07 16:10:00 89 mm[Hg] [facility] Heart rate 2022-11-07 16:10:00 96 /min Unive [facility] Body temperature 2022-11-07 16:10:00 36.39 [facility] Respiratory rate 2022-11-07 16:10:00 16 /min [facility] Oxygen saturation in Arterial blood by Pulse oximetry 2022-11-07 16:10:00 98 /min [facility] Body weight 2022-11-07 08:47:00 48.988 kg [facility] BMI 2022-11-07 08:47:00 16.92 kg/m2 [facility] Body height 2022-11-06 11:23:00 170.2 cm [facility] height 2022-10-30 16:50:00 67 [in_i] Commo n [facility] weight 2022-10-30 16:50:00 99 [lb_av] Commo n [facility] bmi 2022-10-30 16:50:00 15.5 kg/m2 Commo n [facility] blood pressure systolic 2022-10-30 16:50:00 121 mm[Hg] [facility] blood pressure diastolic 2022-10-30 16:50:00 70 mm[Hg] [facility] Systolic blood pressure 2022-08-28 01:39:00 125 mm[Hg] [facility] Diastolic blood pressure 2022-08-28 01:39:00 96 mm[Hg] [facility] Heart rate 2022-08-28 01:39:00 95 /min [facility] 2022-08-28 01:39:00 36.5 [facility] Respiratory rate 2022-08-28 01:39:00 16 /min [facility] Body height 2022-08-28 01:39:00 170.2 cm [facility] Body weight 2022-08-28 01:39:00 47.628 kg [facility] BMI 2022-08-28 01:39:00 16.45 kg/m2 [facility] Oxygen saturation in Arterial blood by Pulse oximetry 2022-08-28 01:39:00 100 /min [facility] height 2022-07-31 16:20:00 67 [in_i] Commo n [facility] weight 2022-07-31 16:20:00 98 [lb_av] Commo n [facility] bmi 2022-07-31 16:20:00 15.35 kg/m2 Comm on [facility] blood pressure systolic 2022-07-31 16:20:00 120 mm[Hg] [facility] blood pressure diastolic 2022-07-31 16:20:00 74 mm[Hg] [facility] height 2022-06-01 08:50:00 67 [in_i] Commo n [facility] weight 2022-06-01 08:50:00 96.9 [lb_av] Com [facility] temperature 2022-06-01 08:50:00 96.8 [degF] Com [facility] bmi 2022-06-01 08:50:00 15.18 kg/m2 Comm on [facility] oximetry 2022-06-01 08:50:00 99 % Commo n [facility] respiratory rate 2022-06-01 08:50:00 18 /min [facility] blood pressure systolic 2022-06-01 08:50:00 118 mm[Hg] [facility] blood pressure diastolic 2022-06-01 08:50:00 77 mm[Hg] [facility] Systolic blood pressure 2022-04-13 01:48:00 138 mm[Hg] [facility] Diastolic blood pressure 2022-04-13 01:48:00 91 mm[Hg] [facility] Heart rate 2022-04-13 01:48:00 81 /min [facility] 2022-04-13 01:48:00 16 /min [facility] Oxygen saturation in Arterial blood by Pulse oximetry 2022-04-13 01:48:00 98 /min [facility] Body temperature 2022-04-12 21:03:00 36.72 [facility] Body weight 2022-04-12 21:03:00 45.36 kg [facility] BMI 2022-04-12 21:03:00 15.66 kg/m2 [facility] Systolic blood pressure 2022-04-09 05:47:00 138 mm[Hg] [facility] Diastolic blood pressure 2022-04-09 05:47:00 104 mm[Hg] [facility] Heart rate 2022-04-09 05:47:00 112 /min Un[facility] Body temperature 2022-04-09 05:47:00 36.61 [facility] Respiratory rate 2022-04-09 05:47:00 16 /min [facility] Body height 2022-04-09 05:47:00 170.2 cm [facility] Body weight 2022-04-09 05:47:00 45.36 kg [facility] BMI 2022-04-09 05:47:00 15.66 kg/m2 [facility] Oxygen saturation in Arterial blood by Pulse oximetry 2022-04-09 05:47:00 100 /min [facility] Systolic blood pressure 2022-04-05 20:08:00 149 mm[Hg] [facility] Diastolic blood pressure 2022-04-05 20:08:00 114 mm[Hg] [facility] Heart rate 2022-04-05 20:08:00 108 /min Un[facility] Body temperature 2022-04-05 20:08:00 36.61 [facility] Respiratory rate 2022-04-05 20:08:00 16 /min [facility] Body height 2022-04-05 20:08:00 170.2 cm [facility] Body weight 2022-04-05 20:08:00 45.36 kg [facility] BMI 2022-04-05 20:08:00 15.66 kg/m2 [facility] Oxygen saturation in Arterial blood by Pulse oximetry 2022-04-05 20:08:00 100 /min [facility] height 2022-03-02 07:50:00 67 [in_i] Commo n [facility] weight 2022-03-02 07:50:00 105 [lb_av] Comm on [facility] temperature 2022-03-02 07:50:00 98 [degF] Comm on [facility] bmi 2022-03-02 07:50:00 16.44 kg/m2 Comm on [facility] blood pressure systolic 2022-03-02 07:50:00 120 mm[Hg] Common [facility] blood pressure diastolic 2022-03-02 07:50:00 76 mm[Hg] Common [facility] height 2022-01-02 11:40:00 67 [in_i] Commo n [facility] weight 2022-01-02 11:40:00 105 [lb_av] Comm on [facility] bmi 2022-01-02 11:40:00 16.44 kg/m2 Comm on [facility] blood pressure systolic 2022-01-02 11:40:00 125 mm[Hg] Common [facility] blood pressure diastolic 2022-01-02 11:40:00 76 mm[Hg] [facility] Systolic blood pressure 2021-12-04 20:56:00 124 mm[Hg] [facility] Diastolic blood pressure 2021-12-04 20:56:00 89 mm[Hg] [facility] Heart rate 2021-12-04 20:56:00 156 /min [facility] Body height 2021-12-04 20:56:00 170.2 cm [facility] Body weight 2021-12-04 20:56:00 46.72 kg [facility] BMI 2021-12-04 20:56:00 16.13 kg/m2 [facility] height 2021-10-17 08:00:00 67 [in_i] Commo n [facility] weight 2021-10-17 08:00:00 109 [lb_av] Comm on [facility] temperature 2021-10-17 08:00:00 98 [degF] Comm on [facility] bmi 2021-10-17 08:00:00 17.07 kg/m2 Comm on [facility] blood pressure systolic 2021-10-17 08:00:00 130 mm[Hg] Common [facility] blood pressure diastolic 2021-10-17 08:00:00 80 mm[Hg] [facility] height 2021-10-05 08:30:00 67 [in_i] Commo n [facility] weight 2021-10-05 08:30:00 109.1 [lb_av] Co mmon [facility] temperature 2021-10-05 08:30:00 97.7 [degF] Com [facility] bmi 2021-10-05 08:30:00 17.09 kg/m2 Comm on [facility] oximetry 2021-10-05 08:30:00 100 % Commo n [facility] respiratory rate 2021-10-05 08:30:00 18 /min [facility] blood pressure systolic 2021-10-05 08:30:00 137 mm[Hg] Common [facility] blood pressure diastolic 2021-10-05 08:30:00 89 mm[Hg] [facility] oximetry 2021-07-13 15:00:00 100 % Commo n [facility] respiratory rate 2021-07-13 15:00:00 17 /min [facility] blood pressure systolic 2021-07-13 15:00:00 129 mm[Hg] Common [facility] blood pressure diastolic 2021-07-13 15:00:00 85 mm[Hg] Common [facility] height 2021-07-13 15:00:00 67 [in_i] Commo n [facility] weight 2021-07-13 15:00:00 103.5 [lb_av] Co mmon [facility] temperature 2021-07-13 15:00:00 97.9 [degF] Com [facility] bmi 2021-07-13 15:00:00 16.21 kg/m2 Comm on [facility] height 2021-05-19 11:10:00 67 [in_i] Commo n [facility] weight 2021-05-19 11:10:00 107 [lb_av] Comm on [facility] temperature 2021-05-19 11:10:00 97.5 [degF] Com [facility] bmi 2021-05-19 11:10:00 16.76 kg/m2 Comm on [facility] height 2021-03-21 11:30:00 67 [in_i] Commo n [facility] weight 2021-03-21 11:30:00 107 [lb_av] Comm on [facility] temperature 2021-03-21 11:30:00 98 [degF] Comm on [facility] bmi 2021-03-21 11:30:00 16.76 kg/m2 Comm on [facility] blood pressure systolic 2021-03-21 11:30:00 125 mm[Hg] Common [facility] blood pressure diastolic 2021-03-21 11:30:00 75 mm[Hg] Common [facility] height 2021-01-09 16:40:00 67 [in_i] Commo n [facility] weight 2021-01-09 16:40:00 105 [lb_av] Comm on [facility] temperature 2021-01-09 16:40:00 98.5 [degF] Com [facility] bmi 2021-01-09 16:40:00 16.44 kg/m2 Comm on [facility] Procedures Procedure Date / Time Performed Performing Clinician Source Phosphorus Level 2024-04-26 00:00:00 Ryan Christianson [facility] Magnesium Level 2024-04-26 00:00:00 Wyatt bush Nelson [facility] Complete Blood Count w/Diff and Platelet 2024-04-26 00:00:00 [facility] Comprehensive Metabolic Panel 2024-04-26 00:00:00 [facility] DRUG SCREEN URINE (8 DRUGS) 2024-04-25 06:14:00 Padmini [facility] [facility] UA WITH CULTURE IF INDICATED 2024-04-25 06:14:00 Yaniv, Eugeniasaint paulmarco [facility] HIV 4TH GEN WITH REFLEX 2024-04-25 06:12:00 Yaniv, Lauren georginamarco [facility] AMMONIA LEVEL 2024-04-25 02:20:00 Monika Del Rosario [facility] CT ABDOMEN PELVIS W IV CONTRAST 2024-04-25 01:51:45 Jt Huffman [facility] Acute Hepatitis Panel 2024-04-25 00:00:00 [facility] US GALLBLADDER 2024-04-24 20:15:37 Mone Donovan [facility] XR CHEST 1 VIEW 2024-04-24 17:57:00 Jacqueline Jimenez [facility] BLOOD GAS, VENOUS 2024-04-24 17:22:00 Jacqueline Jimenez Ra [facility] CREATINE KINASE (CK TOTAL) 2024-04-24 16:35:00 Jacqueline Jimenez [facility] LIPASE LEVEL 2024-04-24 16:35:00 Jacqueline Jimenez [facility] MAGNESIUM LEVEL 2024-04-24 16:35:00 Jacqueline Jimenez [facility] COMPLETE BLOOD COUNT W/DIFF AND PLATELET 2024-04-24 16:35:00 Jacqueline Jimenez [facility] THYROID STIMULATING HORMONE W/ REFLEX FREE T4 2024-04-24 16:35:00 Jacqueline Jimenez [facility] COMPLETE BLOOD COUNT 2024-04-24 16:35:00 Jacqueline Jimenez [facility] AUTOMATED DIFFERENTIAL 2024-04-24 16:35:00 [facility] - DO NOT ORDER 2024-04-24 16:35:00 Jacqueline Jimenez [facility] BASIC METABOLIC PANEL 2024-04-24 16:34:00 Johnna Jimenez [facility] HEPATIC FUNCTION PANEL 2024-04-24 16:34:00 Viridiana Jimenez [facility] ETHANOL LEVEL 2024-04-24 16:34:00 Jacqueline Jimenez Me morial [facility] Epic HCG TOTAL (QUANTITATIVE) 2024-04-24 16:34:00 Zara Jimenez [facility] Sammy Epic PROTIME-INR 2024-04-24 16:34:00 Jacqueline [facility] orial [facility] Epic PTT 2024-04-24 16:34:00 Jacqueline Jimenez [facility] orial [facility] CT ANGIOGRAM HEAD 2024-04-05 06:45:[facility] 2024-04-05 06:45:52 Haroon [facility] XR CHEST 1 VW 2024-04-05 06:43:02 Haroon [facility] URINE DRUG (IMMUNOASSAY) - COMPREHENSIVE DRUG SCREEN 2024-04-05 05:37:00 Haroon [facility] URINALYSIS 2024-04-05 05:37:00 [facility] LIPASE 2024-04-05 05:22:00 [facility] TEST, SERUM 2024-04-05 05:22:00 Sarai Patiño [facility] TROPONIN I 2024-04-05 05:22:00 [facility] COMP. METABOLIC PANEL ([id number]) 2024-04-05 05:22:00 Haroon [facility] ETHANOL 2024-04-05 05:22:00 Michelle Patiño [facility] CBC WITH DIFF 2024-04-05 05:22:00 Haroon [facility] PROTHROMBIN TIME / INR 2024-04-05 05:22:00 Sadiq Patiño [facility] ED LACERATION REPAIR 2024-03-31 03:15:23 Vincent Hernandez [facility] CT MAXILLOFACIAL/MANDIBLE WO CONTRAST 2024-03-31 01:22:29 Bashir [facility] CT TRAUMA HEAD WO CONTRAST 2024-03-31 01:22:29 Bashir [facility] RAPID STREP SCREEN FOR GROUP A 2024 20:21:00 Jayden Johansen [facility] POCT TEST 2024 20:17:00 Jayden Johansen [facility] XR WRIST 3+ VW RIGHT 2024-01-03 15:50:47 González Ross [facility] POCT TEST 2023-12-08 20:33:00 Madhuri Cabrera [facility] URINALYSIS 2023-12-08 20:04:00 Krista Cabrera [facility] URINE DRUG (IMMUNOASSAY) - COMPREHENSIVE DRUG SCREEN W/O REFLEX 2023-12-08 20:04:00 Krista Cabrera [facility] AC PANEL 21 + LACTIC ACID 2023-12-08 19:29:00 Krista Cabrera [facility] LIPASE 2023-12-08 19:21:00 [facility] MAGNESIUM 2023-12-08 19:21:00 Krista Cabrera [facility] COMP. METABOLIC PANEL ([id number]) 2023-12-08 19:21:00 Krista Cabrera [facility] ETHANOL 2023-12-08 19:21:00 Krista Cabrera [facility] CBC WITH DIFF 2023-12-08 19:21:00 Krista Cabrera [facility] ETHANOL 2023-12-06 08:39:00 Lorenzo [facility] COMP. METABOLIC PANEL ([id number]) 2023-12-06 02:31:00 Bashir [facility] ETHANOL 2023-12-06 02:31:00 Valeria Hernandez [facility] CBC WITH DIFF 2023-12-06 02:31:00 [facility] POCT TEST 2023-12-05 03:09:00 Jonelle Connell [facility] TEST, URINE 2023-12-05 03:01:00 Romana Connell [facility] COMP. METABOLIC PANEL ([id number]) 2023-12-05 03:01:00 Jonelle Connell [facility] SALICYLATE 2023-12-05 03:01:00 [facility] ETHANOL 2023-12-05 03:01:00 Jonelle Connell [facility] CBC WITH DIFF 2023-12-05 03:01:00 Jonelle Connell [facility] URINALYSIS 2023-12-05 03:01:00 Jonelle Connell [facility] URINE DRUG (IMMUNOASSAY) - COMPREHENSIVE DRUG SCREEN W/O REFLEX 2023-12-05 03:01:00 Jonelle Connell [facility] CT CERVICAL SPINE WO CONTRAST 2023-11-22 18:24:35 Nba Balderas [facility] CT HEAD WO CONTRAST 2023-11-22 18:24:35 Dalton Balderas [facility] LIPASE 2023-11-22 17:12:00 [facility] 2023-11-22 17:12:00 Nba Balderas Un [facility] COMP. METABOLIC PANEL ([id number]) 2023-11-22 17:12:00 Nba Balderas [facility] TOTAL BETA HCG ASSAY 2023-11-22 17:12:00 Hany Balderas [facility] ETHANOL 2023-11-22 17:12:00 Nba Balderas Un [facility] CBC WITH DIFF 2023-11-22 17:12:00 [facility] D-[facility] 2023-11-22 17:12:00 Nba Balderas Un [facility] INFLUENZA A/B RSV COVID NAAT 2023-11-10 04:53:00 Alyssia Miranda [facility] POCT TEST 2023-11-10 04:25:00 Alyssia Montelongo [facility] URINALYSIS 2023-11-10 04:21:00 Alyssia Miranda [facility] URINE DRUG (IMMUNOASSAY) - COMPREHENSIVE DRUG SCREEN W/O REFLEX 2023-11-10 04:21:00 Alyssia Miranda [facility] CREATINE KINASE 2023-11-10 04:14:00 AutumnerAlyssia gardiner [facility] THYROID STIMULATING HORMONE 2023-11-10 04:14:00 Autumnerzuleyka Alyssia [facility] COMP. METABOLIC PANEL ([id number]) 2023-11-10 04:14:00 Alyssia Miranda [facility] SALICYLATE 2023-11-10 04:14:00 AufderheAlyssia crawford [facility] ETHANOL 2023-11-10 04:14:00 Ruben Alyssia [facility] CBC WITH DIFF 2023-11-10 04:14:00 Ruben Alyssia [facility] PHOSPHORUS 2023-11-09 10:12:00 Phillip Devi [facility] MAGNESIUM 2023-11-09 10:12:00 Marito [facility] HEPATIC FUNCTION PANEL ([id number]) (ALB,T.PRO,BILI T,BU/BC,ALT,AST,ALK PHOS) 2023-11-09 10:12:00 Phillip Devi [facility] BASIC METABOLIC PANEL (NA, K, CL, CO2, GLUCOSE, BUN, CREATININE, CA) 2023-11-09 10:12:00 [facility]FF 2023-11-09 10:12:00 Phillip Devi [facility] PHOSPHORUS 2023-11-08 20:35:00 William Castorena [facility] MAGNESIUM 2023-11-08 20:35:00 William Castorena [facility] BASIC METABOLIC PANEL (NA, K, CL, CO2, GLUCOSE, BUN, CREATININE, CA) 2023-11-08 20:35:00 William Castorena [facility] CT HEAD WO CONTRAST 2023-11-08 10:42:52 William Castorena [facility] PHOSPHORUS 2023-11-08 08:59:00 Marito [facility] MAGNESIUM 2023-11-08 08:59:00 Marito [facility] VITAMIN B12, LEVEL 2023-11-08 08:59:00 Marito [facility] FOLATE 2023-11-08 08:59:00 Marito [facility] HEPATIC FUNCTION PANEL ([id number]) (ALB,T.PRO,BILI T,BU/BC,ALT,AST,ALK PHOS) 2023-11-08 08:59:00 Marito [facility] BASIC METABOLIC PANEL (NA, K, CL, CO2, GLUCOSE, BUN, CREATININE, CA) 2023-11-08 08:59:00 Marito [facility] CBC WITHOUT DIFF 2023-11-08 08:59:00 [facility] FUN[facility] ([id number]) (ALB,T.PRO,BILI T,BU/BC,ALT,AST,ALK PHOS) 2023-11-07 07:22:00 Marito [facility] BASIC METABOLIC PANEL (NA, K, CL, CO2, GLUCOSE, BUN, CREATININE, CA) 2023-11-07 07:22:00 Brandon [facility] CBC WITH DIFF 2023-11-07 07:22:00 Eduar Echevarria [facility] LACTIC ACID WHOLE BLOOD 2023-11-07 07:22:00 Nichole Castorena mmad [facility] PHOSPHORUS 2023-11-07 00:58:00 Eduar Echevarria [facility] MAGNESIUM 2023-11-07 00:58:00 Eduar Echevarria [facility] ACUTE CARE VENOUS BLOOD GAS 2023-11-07 00:57:00 Brandon [facility] LACTIC ACID WHOLE BLOOD 2023-11-07 00:57:00 Kev Echevarria [facility] MRSA / MSSA SCREEN BY PCR, SIDRA 2023-11-06 21:48:00 Brandon [facility] CRITICAL CARE 2023-11-06 20:43:53 Krista [facility] POCT TEST 2023-11-06 19:25:00 Madhuri Cabrera [facility] HB ECG ROUTINE & RHYTHM STRIP 2023-11-06 19:10:21 Krista Cabrera [facility] URINALYSIS 2023-11-06 18:51:00 Krista Cabrera [facility] URINE DRUG (IMMUNOASSAY) - COMPREHENSIVE DRUG SCREEN W/O REFLEX 2023-11-06 18:51:00 Krista Cabrera [facility] LIPASE 2023-11-06 18:43:00 Krista Cabrera [facility] MAGNESIUM 2023-11-06 18:43:00 Krista Cabrera [facility] TROPONIN I 2023-11-06 18:43:00 Krista Cabrera [facility] COMP. METABOLIC PANEL ([id number]) 2023-11-06 18:43:00 Krista Cabrera [facility] ETHANOL 2023-11-06 18:43:00 Krista Cabrera [facility] CBC WITH DIFF 2023-11-06 18:43:00 Krista [facility] N-TERMINAL PRO-BNP 2023-11-06 18:43:00 Krista Cabrera [facility] AC PANEL 21 + LACTIC ACID 2023-11-06 18:43:00 Krista Cabrera [facility] ETHANOL 2023-10-28 16:15:00 [facility] 2023-10-28 11:09:00 Lorenzo [facility] POCT TEST 2023-10-28 03:42:00 Mia Marroquin ra [facility] COMP. METABOLIC PANEL ([id number]) 2023-10-28 03:27:00 Clementina Marroquin [facility] SALICYLATE 2023-10-28 03:27:00 [facility] 2023-10-28 03:27:00 Clementina [facility] CBC WITH DIFF 2023-10-28 03:27:00 Clementina [facility] URINALYSIS 2023-10-28 03:27:00 Clementina [facility] INFLUENZA A/B RSV COVID NAAT 2023-10-28 03:27:00 Clementina Marroquin [facility] LAB ONLY COVID INTERPRETATION 2023-10-28 03:27:00 Clementina Marroquin [facility] URINE DRUG (IMMUNOASSAY) - COMPREHENSIVE DRUG SCREEN W/O REFLEX 2023-10-28 03:27:00 Clementina Marroquin [facility] POCT GLUCOSE(AGE >30DAYS) 2023-10-19 15:53:00 Zoë Singletary [facility] POCT GLUCOSE (AUTOMATED) 2023-10-19 15:52:00 Julio Singletary [facility] BASIC METABOLIC PANEL (NA, K, CL, CO2, GLUCOSE, BUN, CREATININE, CA) 2023-09-21 08:28:00 Lenore Braga [facility] PHOSPHORUS 2023-09-20 09:24:00 Phillip Dvei [facility] LIPASE 2023-09-20 09:24:00 [facility] MAGNESIUM 2023-09-20 09:24:00 Marito [facility] HEPATIC FUNCTION PANEL ([id number]) (ALB,T.PRO,BILI T,BU/BC,ALT,AST,ALK PHOS) 2023-09-20 09:24:00 [facility]EL (NA, K, CL, CO2, GLUCOSE, BUN, CREATININE, CA) 2023-09-20 09:24:00 [facility]FF 2023-09-20 09:24:00 Phillip Devi [facility] PROTHROMBIN TIME / INR 2023-09-20 09:24:00 Me harleen Frost [facility] D-DIMER 2023-09-20 09:24:00 Santosh [facility] ACTIVATED PARTIAL THRMPLAS DAKOTAH 2023-09-20 09:24:00 Farzana Frost [facility] PROCALCITONIN 2023-09-20 09:24:00 Farzana [facility] LACTIC ACID WHOLE BLOOD 2023-09-19 20:59:00 Jose Quintanilla [facility] COVID-19 (ID NOW RAPID TESTING) 2023-09-19 20:58:00 Jose Quintanilla [facility] LAB ONLY COVID INTERPRETATION 2023-09-19 20:58:00 Jose Quintanilla [facility] XR CHEST 1 VW 2023-09-19 17:13:36 Jose [facility] BLOOD CULTURE SCREEN 2023-09-19 17:06:00 Jose Quintanilla [facility] CREATINE KINASE 2023-09-19 17:06:00 [facility] 2023-09-19 17:06:00 Jose Quintanilla [facility] COMP. METABOLIC PANEL ([id number]) 2023-09-19 17:06:00 Jose Quintanilla [facility] CBC WITH DIFF 2023-09-19 17:06:00 Jose Quint[facility]illa [facility] LACTIC ACID WHOLE BLOOD 2023-09-19 17:05:00 Jose Quintanilla [facility] EKG-12 LEAD 2023-09-19 16:54:29 [facility] PULMONARY ANGIOGRAM 2023-09-15 17:19:16 [facility] 2023-09-15 16:53:00 Viola Rangel [facility] TROPONIN I 2023-09-15 16:49:00 Cecile R[facility] COMP. METABOLIC PANEL ([id number]) 2023-09-15 16:49:00 Cecile Rangel [facility] CBC WITH DIFF 2023-09-15 16:49:00 Cecile Rangel [facility] D-DIMER 2023-09-15 16:49:00 Cecile Rangel [facility] URINALYSIS 2023-09-15 16:49:00 Cecile Rangel [facility] N-TERMINAL PRO-BNP 2023-09-15 16:49:00 Ria Rangel [facility] LACTIC ACID WHOLE BLOOD 2023-09-15 16:48:00 Vivek Rangel [facility] HB ECG ROUTINE & RHYTHM STRIP 2023-09-15 16:44:45 Cecile Rangel [facility] POCT TEST 2023-09-14 00:14:00 Brenden Olmstead [facility] XR CHEST 2 VW 2023-09-14 00:08:48 [facility] RAPID STREP SCREEN FOR GROUP A 2023-09-13 23:31:00 Ishan [facility] RAPID INFLUENZA A/B 2023-09-13 23:31:00 Brenden Olmstead [facility] COVID-19 (ID NOW RAPID TESTING) 2023-09-13 23:31:00 Ishan [facility] MAGNESIUM 2023-04-27 10:01:00 William Castorena [facility] COMP. METABOLIC PANEL ([id number]) 2023-04-27 10:01:00 William Castorena [facility] CBC WITH DIFF 2023-04-27 10:01:00 [facility] TRANSTHORACIC ECHO (TTE) COMPLETE 2023-04-26 20:20:00 Eduar Echevarria [facility] LIPASE 2023-04-26 11:39:00 William Castorena [facility] MAGNESIUM 2023-04-26 11:39:00 William Castorena [facility] COMP. METABOLIC PANEL ([id number]) 2023-04-26 11:39:00 William Castorena [facility] CBC WITH DIFF 2023-04-26 11:39:00 [facility] PROTHROMBIN TIME / INR 2023-04-26 11:39:00 Nat Castorena [facility] ACTIVATED PARTIAL THRMPLAS DAKOTAH 2023-04-26 11:39:00 William Castorena [facility] URINE DRUG (IMMUNOASSAY) - COMPREHENSIVE DRUG SCREEN 2023-04-25 10:51:00 William Castorena [facility] LIPASE 2023-04-25 10:46:00 William Castorena [facility] MAGNESIUM 2023-04-25 10:46:00 William Castorena [facility] COMP. METABOLIC PANEL ([id number]) 2023-04-25 10:46:00 William Castorena [facility] CBC WITH DIFF 2023-04-25 10:46:00 [facility] / INR 2023-04-25 10:46:00 Nat Castorena [facility] ACTIVATED PARTIAL THRMPLAS DAKOTAH 2023-04-25 10:46:00 William Castorena [facility] N-TERMINAL PRO-BNP 2023-04-25 10:46:00 William Castorena [facility] LACTIC ACID WHOLE BLOOD 2023-04-25 10:46:00 Nichole Castorena mmad [facility] PHOSPHORUS 2023-04-25 04:50:00 William Castorena [facility] CT ABDOMEN PELVIS W CONTRAST 2023-04-25 01:17:35 Jose Quintanilla [facility] URINALYSIS 2023-04-24 23:43:00 Jose Quintanilla [facility] POCT TEST 2023-04-24 23:41:00 Jose Quintanilla e [facility] AMMONIA, PLASMA 2023-04-24 23:32:00 [facility]OUTINE & RHYTHM STRIP 2023-04-24 22:36:50 Jose Quintanilla [facility] LIPASE 2023-04-24 22:23:00 [facility] 2023-04-24 22:23:00 [facility] COMP. METABOLIC PANEL ([id number]) 2023-04-24 22:23:00 Jose Quintanilla [facility] ETHANOL 2023-04-24 22:23:00 Jose [facility]illa [facility] CBC WITH DIFF 2023-04-24 22:23:00 Jose Quintanilla [facility] PROTHROMBIN TIME / INR 2023-04-24 22:23:00 Jose Quintanilla [facility] ACTIVATED PARTIAL THRMPLAS DAKOTAH 2023-04-24 22:23:00 Jose Quintanilla [facility] CONSENT/REFUSAL FOR DIAGNOSIS AND TREATMENT 2023-04-24 21:03:16 Doctor Unassigned, [facility] XR FOOT 3+ VW LEFT 2022-12-12 14:30:15 Alma Rosa Roberson [facility] ASSIGNMENT OF BENEFITS 2022-12-12 14:03:23 Docto r Unassigned, [facility] CONSENT/REFUSAL FOR DIAGNOSIS AND TREATMENT 2022-12-12 14:03:11 Doctor Unassigned, [facility] PHOSPHORUS 2022-11-13 10:22:00 Dulac [facility] MAGNESIUM 2022-11-13 10:22:00 Dulac [facility] BASIC METABOLIC PANEL (NA, K, CL, CO2, GLUCOSE, BUN, CREATININE, CA) 2022-11-13 10:22:00 Johanna [facility] CBC WITHOUT DIFF 2022-11-13 10:22:00 Johanna [facility] POCT GLUCOSE (AUTOMATED) 2022-11-12 23:12:00 Juan Cardoso [facility] MAGNESIUM 2022-11-12 09:47:00 Myles Santillan [facility] BASIC METABOLIC PANEL (NA, K, CL, CO2, GLUCOSE, BUN, CREATININE, CA) 2022-11-12 09:47:00 Myles Santillan [facility] CBC WITH DIFF 2022-11-12 09:47:00 Myles Santillan [facility] POCT GLUCOSE (AUTOMATED) 2022-11-11 18:34:00 Sadiq Robertson [facility] POCT GLUCOSE (AUTOMATED) 2022-11-11 17:51:00 Sadiq Robertson [facility] POCT GLUCOSE (AUTOMATED) 2022-11-11 12:16:00 Sadiq Robertson [facility] LIPASE 2022-11-11 09:43:00 Shara Isael [facility] MAGNESIUM 2022-11-11 09:43:00 Yasir Chaney [facility] COMP. METABOLIC PANEL ([id number]) 2022-11-11 09:43:00 Isael Olmedo [facility] CBC WITH DIFF 2022-11-11 09:43:00 Isael Olmedo [facility] MRSA / MSSA SCREEN BY PCR, NARES 2022-11-11 01:32:00 Jeremy Velez [facility] LIPASE 2022-11-10 22:21:00 Adelina Judge [facility] FOLATE 2022-11-10 22:21:00 Shara [facility] TEST, SERUM 2022-11-10 22:21:00 Jason Judge [facility] COMP. METABOLIC PANEL ([id number]) 2022-11-10 22:21:00 Adelina Judge [facility] ETHANOL 2022-11-10 22:21:00 Adelina Judge [facility] CBC WITH DIFF 2022-11-10 22:21:00 Adelina Judge [facility] CONSENT/REFUSAL FOR DIAGNOSIS AND TREATMENT 2022-11-10 21:39:27 Doctor Unassigned, [facility] CRITICAL CARE 2022-11-10 21:38:00 Slim Hightower [facility] LIPASE 2022-11-07 09:37:00 William Castorena [facility] MAGNESIUM 2022-11-07 09:37:00 William Castorena [facility] HEPATIC FUNCTION PANEL ([id number]) (ALB,T.PRO,BILI T,BU/BC,ALT,AST,ALK PHOS) 2022-11-07 09:37:00 William Castorena [facility] BASIC METABOLIC PANEL (NA, K, CL, CO2, GLUCOSE, BUN, CREATININE, CA) 2022-11-07 09:37:00 William Castorena [facility] LIPID PANEL ([id number])(TOTAL CHOLESTEROL, TRIGLYCERIDES, HDL) 2022-11-07 09:37:00 William Castorena [facility] CBC WITH DIFF 2022-11-07 09:37:00 [facility] / INR 2022-11-07 09:37:00 Nat Castorena [facility] ACTIVATED PARTIAL THRMPLAS DAKOTAH 2022-11-07 09:37:00 William Castorena [facility] US GALL BLADDER 2022-11-06 09:32:53 Suleman Lopez [facility] CT ABDOMEN PELVIS W CONTRAST 2022-11-06 06:57:00 Zoë Singletary [facility] LIPASE 2022-11-06 06:32:00 Zoë Sing[facility]ary [facility] COMP. METABOLIC PANEL ([id number]) 2022-11-06 06:32:00 Zoë Singletary [facility] ETHANOL 2022-11-06 06:32:00 Suleman Lopez [facility] CBC WITH DIFF 2022-11-06 06:32:00 Zoë Singletary [facility] URINALYSIS 2022-11-06 06:18:00 Zoë Singletary [facility] POCT TEST 2022-11-06 06:18:00 Zoë Singletary [facility] CONSENT/REFUSAL FOR DIAGNOSIS AND TREATMENT 2022-11-06 06:01:51 Doctor Unassigned, [facility] POCT TEST 2022-08-28 02:47:00 Marguerite Best [facility] NOTICE OF PRIVACY PRACTICES 2022-08-28 01:31:41 Doctor Unassigned, [facility] CONSENT/REFUSAL FOR DIAGNOSIS AND TREATMENT 2022-08-28 01:30:51 Doctor Unassigned, [facility] BASIC METABOLIC PANEL (NA, K, CL, CO2, GLUCOSE, BUN, CREATININE, CA) 2022-04-13 00:10:00 Lacey Suggs [facility] CBC WITH DIFF 2022-04-13 00:10:00 Lacey Suggs [facility] CONSENT/REFUSAL FOR DIAGNOSIS AND TREATMENT 2022-04-12 21:08:37 Doctor Unassigned, [facility] CONSENT/REFUSAL FOR DIAGNOSIS AND TREATMENT 2022-04-09 05:40:38 Doctor Unassigned, [facility] BASIC METABOLIC PANEL (NA, K, CL, CO2, GLUCOSE, BUN, CREATININE, CA) 2022-04-05 22:24:00 Lenore Alarcon [facility] CBC WITH DIFF 2022-04-05 22:24:00 Lenore Alarcon [facility] CONSENT/REFUSAL FOR DIAGNOSIS AND TREATMENT 2022-04-05 19:50:28 Doctor Unassigned, [facility] 12 lead (arrhythmia) Mem orial Nelson Epic [place] H[facility] WITHOUT EF [facility] Encounters Start Date/Time End Date/Time Encounter Type Admission Type Attending [facility] Care Facility Care Department Encounter ID Source 2023-03-06 08:02:00 Outpatient ShepardTomasa oneilh [facility] [id number] [facility] 2023-03-05 10:16:00 Outpatient Tomasa Shepardh [facility] [id number] [facility] 2023-03-04 11:18:00 Outpatient Tomasa Shepardh [facility] [id number] [facility] 2022-07-27 10:23:00 Outpatient Shepard, Leander [facility] [id number] [facility] 2022-06-13 14:55:45 Outpatient [facility] [id number] [facility] 2022-05-30 09:48:00 Outpatient Shepard, Leander STLML[facility] ST[facility] [id number] [facility] 2021-11-13 13:38:00 Outpatient Shepard, Leander STLC STLC [id number] [facility] 2021-11-10 10:45:18 Outpatient CATHIE GONZALEZ [facility] S[facility] [id number] [facility] 2021-11-09 09:43:50 Outpatient CATHIE GONZALEZ [facility] SOR [id number] [facility] 2021-11-08 16:22:13 Outpatient CATHIE GONZALEZ [facility] SOR [id number] [facility] 2021-05-17 14:17:09 Outpatient Shepard, Leander STLC STLC [id number] [facility] 2021-05-17 13:50:42 Outpatient Shepard, Leander STLC STLC [id number] [facility] 2021-05-17 13:50:27 Outpatient Shepard, Leander STLC STLC [id number] [facility] 2021-05-17 13:28:45 Outpatient Shepard, Leander STLC STLMLC [id number] [facility] 2021-05-17 12:51:57 Outpatient Shepard, Leander STLC STLMLC [id number] [facility] 2021-05-17 12:45:56 Outpatient Shepard, Leander STLC STLMLC [id number] [facility] 2021-05-17 12:39:56 Outpatient Shepard, Leander STLC STLMLC [id number] [facility] 2021-05-17 12:39:35 Outpatient Shepard, Leander STLMLC STLMLC [id number] [facility] 2021-05-17 12:38:37 Outpatient Shepard, Leander STLMLC STLMLC [id number] [facility] 2021-05-17 12:33:47 Outpatient Shepard, Leander STLMLC STLMLC [id number] [facility] 2021-05-17 12:32:33 Outpatient Shepard, Leander STLMLC STLMLC [id number] [facility] 2021-05-17 12:29:13 Outpatient Shepard, Leander STLMLC STLMLC [id number] [facility] 2021-05-17 12:25:07 Outpatient Shepard, Leander STLMLC STLMLC [id number] [facility] 2021-05-17 12:24:31 Outpatient Shepard, Leander STLMLC STLMLC [id number] [facility] 2021-05-17 12:07:53 Outpatient Shepard, Leander STLMLC STLMLC [id number] [facility] 2021-05-17 12:07:23 Outpatient Shepard, Leander STLMLC STLMLC [id number] [facility] 2021-05-17 11:59:39 Outpatient Shepard, Leander STLMLC STLMLC [id number] [facility] 2021-05-17 11:37:35 Outpatient Shepard, Leander STLMLC STLMLC [id number] [facility] 2021-05-17 11:16:40 Outpatient Shepard, Leander STLMLC STLMLC [id number] [facility] 2021-05-17 11:10:01 Outpatient Shepard, Leander STLMLC STLMLC [id number] [facility] 2021-05-17 11:07:07 [facility] [id number] [facility] 2021-05-17 10:59:13 [facility] [id number] [facility] 2021-05-17 10:57:50 [facility] [id number] [facility] 2021-02-19 19:59:15 Emergency [facility] [id number] [facility] 2021-02-19 15:25:26 Emergency [facility] [id number] [facility] 2024-04-24 15:27:00 2024-04-25 16:50:00 Hospital Encounter Barbara, Jacqueline Brown, Marguerite [facility]iz[facility] 1..840.114 350.1.13.70 8.2.7.2.686 [id number] [facility] 2024-04-24 15:27:00 2024-04-25 16:50:00 Inpatient Emergency ERIC PATINO [facility] General Medicine [id number] [facility] 2024-04-04 23:07:00 2024-04-05 03:56:00 Emergency X MICHELLE PATIÑO SHINTA [facility] ERT [id number] [facility] 2024-04-04 23:07:00 2024-04-05 03:56:00 Emergency Michelle Patiño [facility] 1..840.114 350.1.13.10 4.2.7.2.686 [id number] [facility] 2024-03-30 18:37:00 2024-03-30 21:59:00 Emergency X VALERIA HERNANDEZ [facility] ERT [id number] [facility] 2024-03-30 18:37:00 2024-03-30 21:59:00 Emergency Valeria Hernandez [facility] 1..840.114 350.1.13.10 4.2.7.2.686 [id number] [facility] 2024-03-30 03:09:00 2024-03-30 03:49:00 Emergency X CLEMENTINA MARROQUIN SANDRA [facility] ERT [id number] [facility] 2024-03-30 03:09:00 2024-03-30 03:49:00 Emergency Clementina Marroquin [facility] 1..840.114 350.1.13.10 4.2.7.2.686 [id number] [facility] 2024-02-13 11:15:00 2024-02-13 11:15:00 Outpatient R CATHIE ROSS CRAIG [facility] [id number] [facility] 2024-02-06 11:15:00 2024-02-06 11:15:00 Outpatient R CATHIE ROSS CRAIG [facility] [id number] [facility] 2024-02-05 13:19:03 2024-02-05 23:59:00 Hospital Encounter Cathie Ross [facility] 1..840.114 350.1.13.10 4.2.7.2.686 [id number] [facility] 2024-02-05 13:30:00 2024-02-05 13:37:44 Outpatient R CATHIE ROSS CRAIG [facility] [id number] [facility] 2024-02-05 13:30:00 2024-02-05 13:37:44 Office Visit Cathie Ross [facility] 1..840.114 350.1.13.10 4.2.7.2.686 [id number] [facility] 2024 14:24:00 2024 16:14:00 Emergency X JAYDEN JOHANESN KENT [facility] ERT [id number] [facility] 2024 14:24:00 2024 16:14:00 Emergency Jayden Johansen [facility] 1.2.840.114 350.1.13.10 4.2.7.2.686 [id number] [facility] 2024-01-23 11:12:44 2024-01-23 23:59:00 Outpatient O CATHIE ROSS CRAIG [facility] [id number] [facility] 2024-01-23 11:12:44 2024-01-23 23:59:00 Hospital Encounter Cathie Ross [facility] 1.2.840.114 350.1.13.10 4.2.7.2.686 [id number] [facility] 2024-01-23 11:15:00 2024-01-23 12:12:25 Office Visit Cathie Ross [facility] 1.2.840.114 350.1.13.10 4.2.7.2.686 [id number] [facility] 2024-01-06 16:50:10 2024-01-06 16:50:10 Outpatient SFA [facility] [id number] Dallas Ramos Alistair 2024-01-03 10:37:56 2024-01-03 23:59:00 Outpatient R CATHIE ROSS CRAIG [facility] [id number] [facility] 2024-01-03 10:37:56 2024-01-03 23:59:00 Hospital Encounter Cathie Ross [facility] 1.2.840.114 350.1.13.10 4.2.7.2.686 [id number] [facility] 2024-01-03 10:30:00 2024-01-03 11:05:38 Office Visit Cathie Ross [facility] 1.2.840.114 350.1.13.10 4.2.7.2.686 [id number] [facility] 2023-12-27 15:35:00 2023-12-27 20:32:00 Emergency X KANDY CHAVEZ JOHNNA [facility] ERT [id number] [facility] 2023-12-27 15:35:00 2023-12-27 20:32:00 Emergency Kandy Chavez [facility] 1..840.114 350.1.13.10 4.2.7.2.686 [id number] [facility] 2023-12-27 10:00:00 2023-12-27 10:00:00 Outpatient R CATHIE ROSS CRAIG [facility] [id number] [facility] 2023-12-16 06:24:00 2023-12-16 08:37:00 Emergency X LORENZO ASHFORD WAKILI [facility] ERT [id number] [facility] 2023-12-16 06:24:00 2023-12-16 08:37:00 Emergency YaLorenzo davies [facility] 1..840.114 350.1.13.10 4.2.7.2.686 [id number] [facility] 2023-12-08 14:12:00 2023-12-08 17:39:00 Emergency X KRISTA CABRERA DONNELL [facility] ERT [id number] [facility] 2023-12-08 14:12:00 2023-12-08 17:39:00 Emergency Krista Cabrera [facility] 1.2.840.114 350.1.13.10 4.2.7.2.686 [id number] [facility] 2023-12-05 20:46:00 2023-12-06 09:06:00 Emergency X LORENZO ASHFORD WAKILI [facility] ERT [id number] [facility] 2023-12-05 20:46:00 2023-12-06 09:06:00 Emergency Valeria Hernandez Wakili S [facility] 1.2.840.114 350.1.13.10 4.2.7.2.686 [id number] [facility] 2023-12-04 21:40:00 2023-12-05 01:00:00 Emergency X LORENZO ASHFORD WAKILI [facility] ERT [id number] [facility] 2023-12-04 21:40:00 2023-12-05 01:00:00 Emergency Jonelle Connell Wakili S [facility] 1.2.840.114 350.1.13.10 4.2.7.2.686 [id number] [facility] 2023-11-22 12:02:00 2023-11-22 16:58:00 Emergency X NBA BALDERAS [facility] ERT [id number] [facility] 2023-11-22 12:02:00 2023-11-22 16:58:00 Emergency Nba Balderas [facility] 1.2.840.114 350.1.13.10 4.2.7.2.686 [id number] [facility] 2023-11-11 00:00:00 2023-11-11 09:55:02 Patient Outreach Lauren Cesar 1..840.114 350.1.13.10 4.2.7.2.686 [id number] [facility] 2023-11-09 22:30:00 2023-11-10 02:12:00 Emergency X MANASAVALERIO, VALERIO [facility] ERT [id number] [facility] 2023-11-09 22:30:00 2023-11-10 02:12:00 Emergency Audaviderzuleyka , Alyssia Tate Valerio Lowe [facility] 1..840.114 350.1.13.10 4.2.7.2.686 [id number] [facility] 2023-11-06 13:20:00 2023-11-09 11:54:00 Inpatient X PHILLIP DEVI [facility] JENIFFER [id number] [facility] 2023-11-06 13:20:00 2023-11-09 11:54:00 Hospital Encounter Krista Cabrera David Oville, Jelani [facility] 1..840.114 350.1.13.10 4.2.7.2.686 [id number] [facility] 2023-10-27 22:09:00 2023-10-28 13:11:00 Emergency X JONELLE CONNELL TIMOTHY [facility] ERT [id number] [facility] 2023-10-27 22:09:00 2023-10-28 13:11:00 Emergency Zoë Singletary Timothy [facility] 1..840.114 350.1.13.10 4.2.7.2.686 [id number] [facility] 2023-10-19 10:39:00 2023-10-19 11:33:00 Emergency X ZOË SINGLETARY PAMALA [facility] ERT [id number] [facility] 2023-10-19 10:39:00 2023-10-19 11:33:00 Emergency Zoë Singletary [facility] 1.2.840.114 350.1.13.10 4.2.7.2.686 [id number] [facility] 2023-10-18 19:19:00 2023-10-18 21:09:00 Emergency X KRISTA CABRERA KRISTA [facility] ERT [id number] [facility] 2023-10-18 19:19:00 2023-10-18 21:09:00 Emergency Krista Cabrera [facility] 1.2.840.114 350.1.13.10 4.2.7.2.686 [id number] [facility] 2023-09-19 11:52:00 2023-09-21 11:57:00 [facility] [id number] [facility] 2023-09-19 11:52:00 2023-09-21 11:57:00 Hospital Encounter Jose Quintanilla Jelani [facility] 1.2.840.114 350.1.13.10 4.2.7.2.686 [id number] [facility] 2023-09-15 11:26:00 2023-09-15 13:28:00 Emergency X CECILE RANGEL [facility] ERT [id number] [facility] 2023-09-15 11:26:00 2023-09-15 13:28:00 Emergency Cecile Rangel [facility] 1.2.840.114 350.1.13.10 4.2.7.2.686 [id number] [facility] 2023-09-13 18:06:00 2023-09-13 20:03:00 Emergency X ISHAN, SALMIN ISHAN, ALEXMIN [facility] ERT [id number] [facility] 2023-09-13 18:06:00 2023-09-13 20:03:00 Emergency Ishan, Eleno [facility] 1.2.840.114 350.1.13.10 4.2.7.2.686 [id number] [facility] 2023-06-21 00:00:00 2023-06-21 00:00:00 (TEL) STLMLC STLMLC [id number] [facility] 2023-06-21 00:00:00 2023-06-21 00:00:00 (TEL) STLMLC STLMLC [id number] [facility] 2023-06-11 00:00:00 2023-06-11 00:00:00 OFFICE VISIT ESTAB PT LEVEL 3 STLMLC STLMLC [id number] [facility] 2023-05-08 00:00:00 2023-05-08 00:00:00 (TEL) STLMLC STLMLC [id number] [facility] 2023-05-01 00:00:00 2023-05-01 00:00:00 [facility] 1.2.840.114 350.1.13.10 4.2.7.2.686 [id number] [facility] 2023-05-01 00:00:00 2023-05-01 00:00:00 Patient Secure Msg Doctor Unassigned, [place] [facility] 1.2.840.114 350.1.13.10 4.2.7.2.686 [id number] [facility] 2023-04-30 14:00:00 2023-04-30 14:30:10 Outpatient R ADRIAN LEIJA [facility] [id number] [facility] 2023-04-30 14:00:00 2023-04-30 14:30:10 Urgent Care Adrian Leija Unknown, Attending [facility] 1.2.840.114 350.1.13.10 4.2.7.2.686 [id number] [facility] 2023-04-30 00:00:00 2023-04-30 00:00:00 Transition of Care Thelma Slaughter 1.2.840.114 350.1.13.10 4.2.7.2.686 [id number] [facility] 2023-04-24 15:22:00 2023-04-27 09:58:00 Inpatient X WILLIAM CASTORENA [facility] [id number] [facility] 2023-04-24 15:22:00 2023-04-27 09:58:00 Hospital Encounter Jose Quintanilla Mohammad A. [facility] 1..840.114 350.1.13.10 4.2.7.2.686 [id number] [facility] 2023-03-07 00:00:00 2023-03-07 00:00:00 (TEL) STLMLC STLMLC [id number] [facility] 2023-03-07 00:00:00 2023-03-07 00:00:00 (TEL) STLMLC STLMLC [id number] [facility] 2023-03-06 00:00:00 2023-03-06 00:00:00 OFFICE VISIT ESTAB PT LEVEL 3 STLMLC STLMLC [id number] [facility] 2023-02-06 00:00:00 2023-02-06 00:00:00 (TEL) STLMLC STLMLC [id number] [facility] 2023-01-21 00:00:00 2023-01-21 00:00:00 (TEL) STLMLC STLMLC [id number] [facility] 2023-01-12 02:25:00 2023-01-12 05:16:00 Emergency EM Jacob Jacobs [facility] [id number] [facility] 2023-01-04 00:00:00 2023-01-04 00:00:00 OFFICE VISIT ESTAB PT LEVEL 3 STLMLC STLC [id number] [facility] 2023-01-01 00:00:00 2023-01-01 00:00:00 (TEL) STLC STLMLC [id number] [facility] 2022-12-12 09:13:33 2022-12-12 23:59:00 Outpatient R ALMA ROSA ROBERSON [facility] [id number] [facility] 2022-12-12 09:13:33 2022-12-12 23:59:00 Hospital Encounter Alma Rosa Roberson [facility] 1.2.840.114 350.1.13.10 4.2.7.2.686 [id number] [facility] 2022-12-12 09:00:00 2022-12-12 09:20:00 Urgent Care Alma Rosa Roberson Unknown, Attending [facility] 1.2.840.114 350.1.13.10 4.2.7.2.686 [id number] [facility] 2022-12-12 00:00:00 2022-12-12 00:00:00 Orders Only Doctor Unassigned, [place] [facility] 1..840.114 350.1.13.10 4.2.7.2.686 [id number] [facility] 2022-12-12 00:00:00 2022-12-12 00:00:00 [facility] [id number] [facility] 2022-12-06 00:00:00 2022-12-06 00:00:00 (TEL) STLC STLC [id number] [facility] 2022-11-14 00:00:00 2022-11-14 00:00:00 Transition of Care Thelma Slaughter 1..840.114 350.1.13.10 4.2.7.2.686 [id number] [facility] 2022-11-10 16:54:00 2022-11-13 18:24:00 Inpatient X JUAN CHAVEZ [facility] [id number] [facility] 2022-11-10 16:54:00 2022-11-13 18:24:00 Hospital Encounter Adelina Judge Shawn P Reinertson, Randal C [facility] 1..840.114 350.1.13.10 4.2.7.2.686 [id number] [facility] 2022-11-06 01:11:00 2022-11-07 14:51:00 Outpatient X EDUAR ECHEVARRIA [facility] [id number] [facility] 2022-11-06 01:11:00 2022-11-07 14:51:00 Emergency Zoë Singletary, Eduar Cisneros [facility] 1..840.114 350.1.13.10 4.2.7.2.686 [id number] [facility] 2022-10-30 00:00:00 2022-10-30 00:00:00 OFFICE VISIT ESTAB PT LEVEL 4 [facility] [id number] [facility] 2022-10-01 00:00:00 2022-10-01 00:00:00 [facility]EL[facility] [id number] [facility] 2022-08-27 20:56:00 2022-08-27 22:56:00 Emergency X MARGUERITE BEST [facility] ERT [id number] [facility] 2022-08-27 20:56:00 2022-08-27 22:56:00 Emergency Marguerite Best [facility] 1..840.114 350.1.13.10 4.2.7.2.686 [id number] [facility] 2022-08-09 00:00:00 2022-08-09 00:00:00 (TEL) STLMLC STLMLC [id number] [facility] 2022-07-31 00:00:00 2022-07-31 00:00:00 OFFICE VISIT ESTAB PT LEVEL 4 STLMLC STLMLC [id number] [facility] 2022-06-01 00:00:00 2022-06-01 00:00:00 OFFICE VISIT ESTAB PT LEVEL 4 STLMLC STLMLC [id number] [facility] 2022-05-21 08:30:00 2022-05-21 08:30:00 Outpatient R RAVINDER FUENTES [facility] [id number] [facility] 2022-05-21 08:30:00 2022-05-21 08:30:00 Outpatient R [facility] [id number] [facility] 2022-05-01 00:00:00 2022-05-01 00:00:00 (TEL) STLMLC STLMLC [id number] [facility] 2022-04-24 00:00:00 2022-04-24 00:00:00 (TEL) STLMLC STLMLC [id number] [facility] 2022-04-12 15:05:00 2022-04-12 19:50:00 Emergency Chula HIGGINS T. [facility] ERT [id number] [facility] 2022-04-12 15:05:00 2022-04-12 19:50:00 Emergency Lacey Suggs [facility] 1..840.114 350.1.13.10 4.2.7.2.686 [id number] [facility] 2022-04-12 00:00:00 2022-04-12 00:00:00 Telephone Oral Surgery [facility] ARASH MELARA 1.2.840.114 350.1.13.10 4.2.7.2.686 [id number] [facility] 2022-04-08 23:47:00 2022-04-09 00:39:00 Emergency X BANDAR Jose [facility] ERT [id number] [facility] 2022-04-08 23:47:00 2022-04-09 00:39:00 Emergency Jose Quintanilla Alyssa [facility] 1.2.840.114 350.1.13.10 4.2.7.2.686 [id number] [facility] 2022-04-06 19:08:00 2022-04-06 22:00:00 Emergency Jian Samuel [facility] [id number] [facility] 2022-04-05 14:09:00 2022-04-05 17:11:00 Emergency X BERTA LENORE [facility] ERT [id number] [facility] 2022-04-05 14:09:00 2022-04-05 17:11:00 Emergency Lenore Alarcon S [facility] 1.2.840.114 350.1.13.10 4.2.7.2.686 [id number] [facility] 2022-03-02 00:00:00 2022-03-02 00:00:00 OFFICE VISIT [facility] [id number] [facility] 2022-02-28 00:00:00 2022-02-28 00:00:00 [facility]TEL[facility] [id number] [facility] 2022-01-15 09:00:00 2022-01-15 09:00:00 Outpatient R [facility] [id number] [facility] 2022-01-15 09:00:00 2022-01-15 09:00:00 Outpatient R [facility] [id number] [facility] 2022-01-15 09:00:00 2022-01-15 09:00:00 Outpatient R DURGA CORTES [facility] [id number] [facility] 2022-01-15 09:00:00 2022-01-15 09:00:00 Outpatient R [facility] [id number] [facility] 2022-01-02 00:00:00 2022-01-02 00:00:00 OFFICE VISIT ESTAB PT LEVEL 4 STLMLC STLMLC [id number] [facility] 2021-12-04 12:37:10 2021-12-04 23:59:00 Hospital Encounter Kerrie Judge [facility] 1.2.840.114 350.1.13.10 4.2.7.2.686 [id number] [facility] 2021-12-04 16:00:00 2021-12-04 16:44:58 Office Visit Alfie [facility]?MORISMichelle [facility] 1.2.840.114 350.1.13.10 4.2.7.2.686 [id number] [facility] 2021-12-04 16:00:00 2021-12-04 16:44:58 Outpatient R ALFIE KERRIE [facility] [id number] [facility] 2021-12-04 16:00:00 2021-12-04 16:00:00 Outpatient R ALFIE [facility] [id number] [facility] 2021-12-04 00:00:00 2021-12-04 00:00:00 Telephone Cathie Ross [facility] 1.2.840.114 350.1.13.10 4.2.7.2.686 [id number] [facility] 2021-12-04 00:00:00 2021-12-04 00:00:00 Telephone Kerrie Judge [facility] 1..840.114 350.1.13.10 4.2.7.2.686 [id number] [facility] 2021-11-29 15:15:00 2021-11-29 16:25:54 Office Visit Kerrie Judge [facility] 1.840.114 350.1.13.10 4.2.7.2.686 [id number] [facility] 2021-11-29 15:15:00 2021-11-29 16:25:54 Outpatient R KERRIE JUDGE [facility] [id number] [facility] 2021-11-29 15:15:00 2021-11-29 15:15:00 Outpatient R KERRIE JUDGE [facility] [id number] [facility] 2021-11-28 00:00:00 2021-11-28 00:00:00 [facility] 1.840.114 350.1.13.10 4.2.7.2.686 [id number] [facility] 2021-11-27 16:15:00 2021-11-27 16:15:00 Outpatient R CATHIE ROSS [facility] [id number] [facility] 2021-11-20 14:45:00 2021-11-20 15:20:56 Outpatient R CATHIE ROSS [facility] [id number] [facility] 2021-11-20 14:45:00 2021-11-20 15:20:56 Office Visit Cathie Ross [facility] 1..840.114 350.1.13.10 4.2.7.2.686 [id number] [facility] 2021-11-18 12:53:52 2021-11-18 23:59:00 Outpatient R JACQUELINE SHIN [facility] [id number] [facility] 2021-11-18 12:53:52 2021-11-18 23:59:00 Hospital Encounter Jacqueline Shin [facility] 1.114 350.1.13.10 4.2.7.2.686 [id number] [facility] 2021-11-18 12:40:00 2021-11-18 13:00:00 Urgent Care Jacqueline Shin Alma Rosa Roberson [facility] 1.114 350.1.13.10 4.2.7.2.686 [id number] [facility] 2021-11-18 00:10:00 2021-11-18 00:42:00 Emergency X LORENZO ASHFORD [facility] ERT [id number] [facility] 2021-11-18 00:10:00 2021-11-18 00:42:00 Emergency Lorenzo Ashford [facility] 1.114 350.1.13.10 4.2.7.2.686 [id number] [facility] 2021-11-17 00:00:00 2021-11-17 00:00:00 Orders Only Doctor Unassigned, [place] [facility] 1.114 350.1.13.10 4.2.7.2.686 [id number] [facility] 2021-11-16 13:30:00 2021-11-16 13:44:47 Office Visit Kerrie Judge [facility] 1.114 350.1.13.10 4.2.7.2.686 [id number] [facility] 2021-11-16 13:30:00 2021-11-16 13:44:47 Outpatient R JUDGEKERRIE [facility] [id number] [facility] 2021-11-16 13:30:00 2021-11-16 13:30:00 Outpatient R JUDGEKERRIE [facility] [id number] [facility] 2021-11-15 00:00:00 2021-11-15 00:00:00 [facility]phone [facility] 1..840.114 350.1.13.10 4.2.7.2.686 [id number] [facility] 2021-11-13 14:00:00 2021-11-13 14:57:00 Surgery Cathie Ross [facility] 1..840.114 350.1.13.10 4.2.7.2.686 [id number] [facility] 2021-11-13 11:04:00 2021-11-13 14:30:00 Outpatient R ROSSCATHIE [facility] [id number] [facility] 2021-11-13 11:04:00 2021-11-13 14:30:00 Hospital Encounter Yunior Cathie Yuki [facility] 1..840.114 350.1.13.10 4.2.7.2.686 [id number] [facility] 2021-11-13 08:00:00 2021-11-13 09:01:53 Outpatient R [facility] [id number] [facility] 2021-11-13 08:00:00 2021-11-13 09:01:[address] [facility] MED[facility] OFFICE BUILDING 1..840.114 350.1.13.10 4.2.7.2.686 [id number] [facility] 2021-11-13 00:00:00 2021-11-13 00:00:00 Telephone [facility] 1.2.840.114 350.1.13.10 4.2.7.2.686 [id number] [facility] 2021-11-10 10:43:14 2021-11-10 23:59:00 Hospital Encounter Cathie Ross [facility] 1.840.114 350.1.13.10 4.2.7.2.686 [id number] [facility] 2021-11-10 11:15:00 2021-11-10 11:30:00 Plate Washer Visit Pob, Adc Lab Main Cathie Ross [facility] 1.84.114 350.1.13.10 4.2.7.2.686 [id number] [facility] 2021-11-10 10:38:25 2021-11-10 10:42:00 Outpatient R CATHIE ROSS [facility] [id number] [facility] 2021-11-10 08:30:00 2021-11-10 08:45:00 Laboratory Only Only, Adc Test Cathie Ross [facility] 1.840.114 350.1.13.10 4.2.7.2.686 [id number] [facility] 2021-11-10 00:00:00 2021-11-10 00:00:00 Telephone Cathie Ross [facility] 1.2.840.114 350.1.13.10 4.2.7.2.686 [id number] [facility] 2021-11-10 00:00:00 2021-11-10 00:00:00 [facility] [id number] [facility] 2021-11-09 00:00:00 2021-11-09 00:00:00 Telephone Cathie Ross [facility] 1.2.840.114 350.1.13.10 4.2.7.2.686 [id number] [facility] 2021-11-09 00:00:00 2021-11-09 00:00:00 Telephone Cathie Ross [facility] OFF[facility] BUILD[facility] 1.2.840.114 350.1.13.10 4.2.7.2.686 [id number] [facility] 2021-11-08 15:30:00 2021-11-08 15:55:00 Outpatient R ROSSCATHIE MELGOZA [facility] [id number] [facility] 2021-11-08 15:30:00 2021-11-08 15:55:00 Office Visit [facility] 1.2.840.114 350.1.13.10 4.2.7.2.686 [id number] [facility] 2021-11-08 00:00:00 2021-11-08 00:00:00 Prep For Surgery Cathie Ross [facility] [place] MED[facility] OFF[facility] BUILD[facility] 1.2.840.114 350.1.13.10 4.2.7.2.686 [id number] [facility] 2021-11-07 00:00:00 2021-11-07 00:00:00 [facility]EL[facility] [id number] [facility] 2021-11-03 08:00:00 2021-11-03 08:00:00 Outpatient KERRIE OLIVER [facility] [id number] [facility] 2021-10-30 14:00:00 2021-10-30 14:05:17 Outpatient R ALMA ROSA ROBERSON [facility] [id number] [facility] 2021-10-30 14:00:00 2021-10-30 14:05:17 [facility] 1.2.840.114 350.1.13.10 4.2.7.2.686 [id number] [facility] 2021-10-29 13:44:17 2021-10-29 23:59:00 Outpatient R KARINA GONZALES [facility] [id number] [facility] 2021-10-29 13:44:17 2021-10-29 23:59:00 [facility] [id number] [facility] 2021-10-29 13:44:17 2021-10-29 23:59:00 Hospital Encounter Cee [facility] OFF[facility] BUILD[facility] 1.2.840.114 350.1.13.10 4.2.7.2.686 [id number] [facility] 2021-10-29 14:40:00 2021-10-29 14:40:00 Urgent Care Cee [facility] [place] MED[facility] OFF[facility] BUILD[facility] 1.2.840.114 350.1.13.10 4.2.7.2.686 [id number] [facility] 2021-10-17 00:00:00 2021-10-17 00:00:00 OFFICE VISIT ESTAB PT LEVEL 4 [facility] [id number] [facility] 2021-10-05 00:00:00 2021-10-05 00:00:00 (WELLNESS) Wellness Visit [facility] [id number] [facility] 2021-10-03 00:00:00 2021-10-03 00:00:00 (TEL) [facility]C [facility] [id number] [facility] 2021-10-02 00:00:00 2021-10-02 00:00:00 (TEL) STLMLC [facility]C [id number] [facility] 2021-08-14 09:30:00 2021-08-14 09:53:56 [facility] Cortes [facility] NUCLEAR MEDICINE TECHNICIAN [facility] ..840.114 350.1.13.10 4.2.7.2.686 [id number] [facility] 2021-08-14 09:30:00 2021-08-14 09:30:00 Outpatient R [facility] [id number] [facility] 2021-08-14 09:30:00 2021-08-14 09:30:00 Outpatient R DURGA CORTES [facility] [id number] [facility] 2021-08-07 00:00:00 2021-08-07 00:00:00 (TEL) STLMLC STLC [id number] [facility] 2021-07-17 00:00:00 2021-07-17 00:00:00 Telephone Pratima Wu [facility] ..840.114 350.1.13.10 4.2.7.2.686 [id number] [facility] 2021-07-17 00:00:00 2021-07-17 00:00:00 Orders Only Doctor Unassigned, [place] [facility] ..840.114 350.1.13.10 4.2.7.2.686 [id number] [facility] 2021-07-13 09:15:00 2021-07-13 09:58:35 Outpatient R PRATIMA WU [facility] [id number] [facility] 2021-07-13 09:15:00 2021-07-13 09:58:35 Office Visit Pratima Wu [facility] NUCLEAR MEDICINE TECHNICIAN [facility] 1.2.840.114 350.1.13.10 4.2.7.2.686 [id number] [facility] 2021-07-13 09:15:00 2021-07-13 09:58:35 Outpatient R SHWETA WUILOLA [facility] [id number] [facility] 2021-07-13 00:00:00 2021-07-13 00:00:00 Letter (Out) Pratima Wu [facility] NUCLEAR MEDICINE TECHNICIAN [facility] 1.2.840.114 350.1.13.10 4.2.7.2.686 [id number] [facility] 2021-07-13 00:00:00 2021-07-13 00:00:00 Telephone Pratima Wu [facility] NUCLEAR MEDICINE TECHNICIAN [facility] 1.2.840.114 350.1.13.10 4.2.7.2.686 [id number] [facility] 2021-07-13 00:00:00 2021-07-13 00:00:00 OFFICE VISIT ESTAB PT LEVEL 4 [facility] [id number] [facility] 2021-07-03 01:43:00 2021-07-03 01:43:00 Outpatient [facility] [id number] [facility] 2021-06-14 00:00:00 2021-06-14 00:00:00 (TEL) [facility] [id number] [facility] 2021-06-04 14:00:00 2021-06-04 15:49:40 Outpatient R MARY SANCHEZ [facility] [id number] [facility] 2021-06-04 14:00:00 2021-06-04 14:20:00 Urgent Care Mary Sanchez Jessica [facility] MED[facility] OFF[facility] BUILDING 1.84114 350.1.13.10 4.2.7.2.686 [id number] [facility] 2021-05-19 00:00:00 2021-05-19 00:00:00 OFFICE VISIT EST PT LEVEL 3 [facility] STL[facility]C [id number] [facility] 2021-04-12 00:00:00 2021-04-12 00:00:00 Letter (Out) Zakiya Multani [facility] 1.114 350.1.13.10 4.2.7.2.686 [id number] [facility] 2021-04-11 11:15:00 2021-04-11 11:30:00 Laboratory Only Only, Ang Db Test Franki [facility] 1.84114 350.1.13.10 4.2.7.2.686 [id number] [facility] 2021-04-11 11:15:00 2021-04-11 11:15:00 Outpatient R FRANKI [facility] [id number] [facility] 2021-04-11 00:00:00 2021-04-11 00:00:00 Orders Only Doctor Unassigned, [place] [facility] 1..114 350.1.13.10 4.2.7.2.686 [id number] [facility] 2021-04-08 00:00:00 2021-04-08 00:00:00 Patient Secure Msg Doctor Unassigned, [place] [facility] 1.0.114 350.1.13.10 4.2.7.2.686 [id number] [facility] 2021-03-21 00:00:00 2021-03-21 00:00:00 OFFICE VISIT ESTAB PT LEVEL 4 [facility] STLC [id number] [facility] 2021-03-20 00:00:00 2021-03-20 00:00:00 (TEL) STLC STLC [id number] [facility] 2021-03-17 00:00:00 2021-03-17 00:00:00 Telephone YanivJeovany rosales [facility] 1.2840.114 350.1.13.10 4.2.7.2.686 [id number] [facility] 2021-03-13 00:00:00 2021-03-13 00:00:00 Telephone Yaniv, [facility] PRIMARY CARE PAVILLION 1.2840.114 350.1.13.10 4.2.7.2.686 [id number] [facility] 2021-03-08 00:00:00 2021-03-08 00:00:00 Transition of Care Tiff Funes 1.2.840.114 350.1.13.10 4.2.7.2.686 [id number] [facility] 2021-03-04 20:45:00 2021-03-07 17:42:00 Inpatient CAMILO BALLESTEROS [facility] [id number] [facility] 2021-03-04 20:45:00 2021-03-07 17:42:00 Hospital Encounter Morrical, Camilo Ansari [facility] 1.284.114 350.1.13.10 4.2.7.2.686 [id number] [facility] 2021-03-04 20:45:00 2021-03-07 17:42:00 Inpatient CAMILO BALLETSEROS [facility] [id number] [facility] 2021-03-04 11:26:00 2021-03-04 12:01:00 Emergency X CLEMENTINA MARROQUIN [facility] ERT [id number] [facility] 2021-03-04 11:26:00 2021-03-04 12:01:00 Emergency Clementina Marroquin [facility] 1.2.840.114 350.1.13.10 4.2.7.2.686 [id number] [facility] 2021-02-28 23:10:00 2021-03-03 12:00:00 Outpatient X PHILLIP DEVI [facility] [id number] [facility] 2021-02-28 23:10:00 2021-03-03 12:00:00 Emergency AlarconLenore Jelani [facility] 1.2.840.114 350.1.13.10 4.2.7.2.686 [id number] [facility] 2021-02-28 23:10:00 2021-03-03 12:00:00 Outpatient X PHILLIP DEVI [facility] [id number] [facility] 2021-02-28 00:00:00 2021-02-28 00:00:00 (TEL) STLMLC STLMLC [id number] [facility] 2021-01-09 00:00:00 2021-01-09 00:00:00 OFFICE VISIT ESTAB PT LEVEL 4 STLMLC STLMLC [id number] [facility] 2020-11-10 00:00:00 2020-11-10 00:00:00 Outpatient STLMLC STLMLC [id number] [facility] 2020-10-11 00:00:00 2020-10-11 00:00:00 Outpatient STLMLC STLMLC [id number] [facility] 2020-08-18 00:00:00 2020-08-18 00:00:00 Transition of Care Tiff Funes 1.2.840.114 350.1.13.10 4.2.7.2.686 [id number] [facility] 2020-07-29 00:00:00 2020-07-29 00:00:00 Outpatient STLMLC STLMLC [id number] [facility] 2020-07-18 00:00:00 2020-07-18 00:00:00 Outpatient STLMLC STLMLC [id number] [facility] 2020-07-06 00:00:00 2020-07-06 00:00:00 Outpatient STLMLC STLMLC [id number] [facility] 2020-06-29 00:00:00 2020-06-29 00:00:00 Outpatient STLMLC STLMLC [id number] [facility] 2020-06-23 00:00:00 2020-06-23 00:00:00 Outpatient STLMLC STLMLC [id number] [facility] 2020-06-03 00:00:00 2020-06-03 00:00:00 Outpatient STLMLC STLMLC [id number] [facility] 2020-05-27 00:00:00 2020-05-27 00:00:00 Outpatient STLMLC STLMLC [id number] [facility] 2020-05-11 00:00:00 2020-05-11 00:00:00 Outpatient STLMLC STLMLC [id number] [facility] 2020-04-25 00:00:00 2020-04-25 00:00:00 Outpatient STLMLC STLMLC [id number] [facility] 2020-03-15 00:00:00 2020-03-15 00:00:00 Outpatient STLMLC STLMLC [id number] [facility] 2020-03-14 00:00:00 2020-03-14 00:00:00 Outpatient STLMLC STLMLC [id number] [facility] 2020-03-07 00:00:00 2020-03-07 00:00:00 Outpatient STLMLC STLMLC [id number] [facility] 2020-03-03 17:00:00 2020-03-03 17:00:00 Outpatient R [facility] [id number] [facility] 2020-03-03 14:36:05 2020-03-03 15:04:47 Urgent Care Provider, [facility] Kelly Perez [facility] Office [address] 1.2.840.114 350.1.13.10 4.2.7.2.686 [id number] [facility] 2020-03-03 14:36:05 2020-03-03 15:04:47 Urgent Care Provider, [facility] 1.2.840.114 350.1.13.10 4.2.7.2.686 [id number] 2020-03-02 00:00:00 2020-03-02 00:00:00 Outpatient STLMLC STLMLC [id number] [facility] 2020-02-29 00:00:00 2020-02-29 00:00:00 Outpatient STLMLC [facility]C [id number] [facility] 2020-02-17 00:00:00 2020-02-17 00:00:00 Outpatient STLMLC STLMLC [id number] [facility] 2020-02-16 00:00:00 2020-02-16 00:00:00 Outpatient STLMLC [facility]LMLC [id number] [facility] 2020-01-18 00:00:00 2020-01-18 00:00:00 Outpatient STLMLC STLMLC [id number] [facility] 2019-12-08 16:40:00 2019-12-08 16:40:00 Outpatient KARINA MAGAÑA [facility] [id number] [facility] 2019-12-07 14:00:00 2019-12-07 14:00:00 [facility] [id number] [facility] 2019-12-07 11:54:00 2019-12-07 11:54:00 [facility] [id number] [facility] 2019-12-03 13:00:00 2019-12-03 13:00:00 [facility] [id number] [facility] 2019-12-03 08:34:00 2019-12-03 08:34:00 [address] [facility] [id number] [facility] 2019-12-02 08:44:00 2019-12-02 08:44:00 [facility] [id number] [facility] 2019-12-01 13:53:00 2019-12-01 13:53:00 [address] [facility] [id number] [facility] 2019-11-26 14:00:00 2019-11-26 14:00:00 [facility] [id number] [facility] 2019-11-24 00:00:00 2019-11-24 00:00:00 Refill Jennifer Sher [facility] 1.2.840.114 350.1.13.10 4.2.7.2.686 [id number] [facility] 2019-11-24 00:00:00 2019-11-24 00:00:00 Refill Jennifer Sher [facility] 1.2.840.114 350.1.13.10 4.2.7.2.686 [id number] 2019-11-18 13:45:00 2019-11-18 13:45:[address] [facility] [id number] [facility] 2019-11-17 10:00:00 2019-11-17 23:59:00 Hospital Encounter Radiology [facility] 1.2.840.114 350.1.13.10 4.2.7.2.686 [id number] [facility] 2019-11-17 10:00:00 2019-11-17 23:59:00 Hospital Encounter Radiology [facility] 1.2.840.114 350.1.13.10 4.2.7.2.686 [id number] 2019-11-17 00:00:00 2019-11-17 00:00:00 Outpatient R RADIOLOGY [facility] [id number] [facility] 2019-11-17 00:00:00 2019-11-17 00:00:00 Orders Only Doctor Unassigned, [place] [facility] 1.2.840.114 350.1.13.10 4.2.7.2.686 [id number] [facility] 2019-11-17 00:00:00 2019-11-17 00:00:00 Orders Only Doctor Unassigned, [place] [facility] 1.2.840.114 350.1.13.10 4.2.7.2.686 [id number] 2019-11-16 13:15:00 2019-11-16 13:15:00 Outpatient [facility] [id number] [facility] 2019-11-09 15:00:00 2019-11-09 15:00:00 Outpatient R JENNIFER SHER [facility] [id number] [facility] 2019-10-09 11:37:00 2019-10-09 11:37:00 Outpatient [facility] [id number] [facility] 2019-10-07 11:38:03 2019-10-07 12:05:01 Urgent Care Provider, [facility] Kelly Perez [facility] 1.2.840.114 350.1.13.10 4.2.7.2.686 [id number] [facility] 2019-10-07 11:38:03 2019-10-07 12:05:01 Urgent Care Provider, [facility] 1.2.840.114 350.1.13.10 4.2.7.2.686 [id number] 2019-10-07 11:40:00 2019-10-07 11:40:00 Outpatient Vivek RICHITHEODORE JINLIE [facility] [id number] [facility] 2019-10-06 00:00:00 2019-10-06 00:00:00 Orders Only Doctor Unassigned, [place] [facility] 1.2.840.114 350.1.13.10 4.2.7.2.686 [id number] [facility] 2019-10-06 00:00:00 2019-10-06 00:00:00 Orders Only Doctor Unassigned, [place] [facility] 1.2.840.114 350.1.13.10 4.2.7.2.686 [id number] 2019-09-23 13:15:00 2019-09-23 13:15:[address] [facility] [id number] [facility] 2019-09-17 16:41:00 2019-09-17 16:41:[address] [facility] [id number] [facility] 2019-07-27 10:13:00 2019-07-27 10:13:00 Outpatient [facility] [id number] [facility] 2019-07-24 10:00:00 2019-07-24 10:00:00 Outpatient [facility] [id number] [facility] 2019-07-06 08:54:00 2019-07-06 08:54:[address] [facility] [id number] [facility] 2019-06-29 10:28:00 2019-06-29 10:28:00 [facility] [id number] [facility] 2019-06-24 14:42:00 2019-06-24 14:42:00 [facility] [id number] [facility] 2019-06-18 11:23:00 2019-06-18 11:23:00 [facility] [id number] [facility] 2019-06-18 08:19:00 2019-06-18 08:19:00 [address] [facility] [id number] [facility] 2019-06-16 13:45:00 2019-06-16 13:45:00 [facility] Medicine [id number] [facility] 2019-06-11 13:06:23 2019-06-11 16:30:00 Emergency Lenore Alarcon [facility] 1.2.840.114 350.1.13.10 4.2.7.2.686 [id number] [facility] 2019-06-11 13:06:23 2019-06-11 16:30:00 Emergency X LENORE ALARCON [facility] ERT [id number] [facility] 2019-06-11 13:06:23 2019-06-11 16:30:00 Emergency X LENORE ALARCON [facility] ERT [id number] [facility] 2019-06-11 13:06:23 2019-06-11 16:30:00 Emergency Lenore Alarcon [address]2.840.114 350.1.13.10 4.2.7.2.686 [id number] 2019-06-07 15:32:13 2019-06-07 16:50:00 Emergency Sabra Sorto [facility] 1.2.840.114 350.1.13.10 4.2.7.2.686 [id number] [facility] 2019-06-07 15:32:13 2019-06-07 16:50:00 Emergency X SABRA SORTO [facility] ERT [id number] [facility] 2019-06-07 15:32:13 2019-06-07 16:50:00 Emergency X SABRA SORTO [facility] ERT [id number] [facility] 2019-06-07 15:32:13 2019-06-07 16:50:00 Emergency Sabra Sorto [facility] 1.2.840.114 350.1.13.10 4.2.7.2.686 [id number] 2019-06-07 00:00:00 2019-06-07 00:00:00 Orders Only Doctor Unassigned, [place] [facility] 1.2.840.114 350.1.13.10 4.2.7.2.686 [id number] [facility] 2019-06-07 00:00:00 2019-06-07 00:00:00 Orders Only Doctor Unassigned, [place] [facility] 1.2.840.114 350.1.13.10 4.2.7.2.686 [id number] 2019-06-02 14:30:00 2019-06-02 14:30:00 Outpatient [facility] [id number] [facility] 2019-06-01 13:24:00 2019-06-01 13:24:00 [facility] [facility] [id number] [facility] 2019-05-28 18:41:42 2019-05-28 20:29:00 [facility] 1.2.840.114 350.1.13.10 4.2.7.2.686 [id number] [facility] 2019-05-28 18:41:42 2019-05-28 20:29:00 [facility] 1.2.840.114 350.1.13.10 4.2.7.2.686 [id number] 2019-05-26 15:00:00 2019-05-26 15:00:[address] [facility] [id number] [facility] 2019-04-30 10:17:00 2019-04-30 10:17:00 [facility] [id number] [facility] 2019-04-30 08:15:00 2019-04-30 08:15:00 [facility] [id number] [facility] 2019-04-24 10:15:00 2019-04-24 10:15:00 [facility] [id number] [facility] 2019-03-26 16:00:00 2019-03-26 16:00:00 [facility] [id number] [facility] 2019-02-26 09:01:00 2019-02-26 09:01:00 [facility] [id number] [facility] 2019-02-13 15:50:00 2019-02-13 15:50:00 [facility] [id number] [facility] 2019 14:30:00 2019 14:30:00 [facility] [id number] [facility] 2019-01-02 17:15:03 2019-01-02 19:16:00 [facility] 1.2.840.114 350.1.13.10 4.2.7.2.686 [id number] [facility] 2019-01-02 17:15:03 2019-01-02 19:16:00 Emergency [facility] 1.2.840.114 350.1.13.10 4.2.7.2.686 [id number] 2019-01-02 00:00:00 2019-01-02 00:00:00 Orders Only Doctor Unassigned, [place] [facility] 1.2.840.114 350.1.13.10 4.2.7.2.686 [id number] [facility] 2019-01-02 00:00:00 2019-01-02 00:00:00 Orders Only Doctor Unassigned, [place] [facility] 1.2.840.114 350.1.13.10 4.2.7.2.686 [id number] 2018-12-31 14:17:00 2018-12-31 14:17:00 Outpatient [facility] [id number] [facility] 2018-12-29 09:44:07 2018-12-29 09:59:07 Office Visit Eliezer Watts [facility] [employer] BLDG. 1.2.840.114 350.1.13.10 4.2.7.2.686 [id number] [facility] 2018-12-29 09:44:07 2018-12-29 09:59:07 Office Visit Eliezer Watts [facility] [employer]. 1.2.840.114 350.1.13.10 4.2.7.2.686 [id number] 2018-12-29 00:00:00 2018-12-29 00:00:00 Letter (Out) [place], [facility] [employer] [facility] 1..840.114 350.1.13.10 4.2.7.2.686 [id number] [facility] 2018-12-24 16:06:07 2018-12-24 23:59:00 Hospital Encounter Radiology [facility] 1..840.114 350.1.13.10 4.2.7.2.686 [id number] [facility] 2018-12-24 10:45:00 2018-12-24 10:45:[address] [facility] [id number] [facility] 2018-12-24 00:00:00 2018-12-24 00:00:00 Orders Only Doctor Unassigned, [place] [facility] 1..840.114 350.1.13.10 4.2.7.2.686 [id number] [facility] 2018-12-09 15:05:00 2018-12-09 15:05:00 [facility] [id number] [facility] 2018-12-08 13:15:00 2018-12-08 13:15:00 [facility] [id number] [facility] 2018-11-26 16:19:00 2018-11-26 16:19:00 [facility] [id number] [facility] 2018-11-18 09:00:00 2018-11-18 09:00:00 [facility] [id number] [facility] 2018-11-15 13:23:07 2018-11-15 13:57:49 Urgent Care Jayden Leahy, Attending [facility] 1..840.114 350.1.13.10 4.2.7.2.686 [id number] [facility] 2018-10-24 16:15:00 2018-10-24 16:15:[address] [facility] [id number] [facility] 2018-10-21 14:30:00 2018-10-21 14:30:00 [facility] [id number] [facility] 2018-08-22 09:30:00 2018-08-22 09:30:00 [facility] [id number] [facility] 2018-08-16 11:37:00 2018-08-16 11:37:00 [facility] [id number] [facility] 2018-08-14 08:30:00 2018-08-14 08:30:00 [facility] [id number] [facility] 2018-08-13 15:15:00 2018-08-13 15:15:00 [facility] [id number] [facility] 2018-07-23 15:00:00 2018-07-23 15:00:00 [facility] [facility] [id number] [facility] 2018-06-23 13:45:00 2018-06-23 13:45:00 [facility] [id number] [facility] 2018-06-09 11:19:00 2018-06-09 11:19:00 [facility] [id number] [facility] 2018-06-03 08:02:00 2018-06-03 08:02:00 [facility] [id number] [facility] 2018-06-02 09:30:00 2018-06-02 09:30:00 [facility] [id number] [facility] 2018-05-21 15:00:00 2018-05-21 15:00:00 [facility] [id number] [facility] 2018-05-09 08:22:00 2018-05-09 08:22:00 [facility] [facility] Medicine [facility] [id number] [facility] 2018-04-24 15:45:00 2018-04-24 15:45:00 [facility] [facility] Medicine [facility] [id number] [facility] 2018-04-04 09:15:00 2018-04-04 09:15:00 [facility] [id number] [facility] 2018-04-02 14:30:00 2018-04-02 14:30:00 [facility] [id number] [facility] 2018-01-28 13:00:00 2018-01-28 13:00:00 [facility] [id number] [facility] Results Test Description Test Time Test [...] mass effect, or evidence of acute intracranialhemorrhage. [facility] CT Angiogram head 07:37:03 Exam: CT Angiogram [...] mass effect, or evidence of acute intracranialhemorrhage. [facility] XR Chest 1 vw 06:54:39 Study: Single view chest. Ordering Physician: MONICA PATIÑO Date: 04/04/2024 11:30 PM History:ALTERED MENTAL STATUS COMPARISON: None. Findings: Single frontal view chest demonstrates a normal heart size. Thelungs are clear without infiltrate, pleural effusion or pneumothorax. Noacute osseous abnormality is identified. [facility] CT TRAUMA HEAD WO CONTRAST 01:54:54 EXAM: [...] cells are clear. The nasal septumis intact. [facility] CT Maxillofacial/m andible wo contrast [...] nasal septumis intact. [facility] VW [id number] 16:05:56EXAM: XR WRIST 3+ VW RIGHT HISTORY: rt wrist fx ? COMPARISON: [facility] [id number] 20:33:00* Test Item Value Reference Range Interpretation Comme nts POCT PREG (test code = 1605) Negative On board controls acceptable with C Line (test code = 3574) Yes POCT PREG LOT # (test code = 3575) [id number] POCT PREG TEST DATE ( test code = 3576) 03/03/2025 Lab Interpretation (test cod e = 36971-9) Normal [facility] CenterCBC WITH [id number] 20:22:54* Test Item Value Reference Range Interpretation [...] 34.2 g/dL 31.6-35.1 RDW-SD (test code = 89071-2) 41.4 fL 39.0-49.9 RDW-CV (test code = 788-0) 11.9 % 12.0-15.5 L PLT (test code = 777-3) 143 166-358 L MPV (test code = 16748-4) 9.5 fL 9.5-12.9 IPF % (test code = 0303740910) 3.4 % 1.3-7.7 Platelet count measured by fluorescence method. NRBC/100 WBC (test code = 2974567496) 0.0 0.0-10.0 NRBC x10^3 (test code = 6067624979) See_Comment [Automated Vikia ge] The system which generated this result transmitted reference range: 10*3/?L. The reference range was not used to interpret this result as normal/abnormal. GRAN MAT (NEUT) % (test code = 770-8) 65.3 % IMM GRAN % (test code = 4642602325) 0.40 % LYMPH % (test code = 736-9) 27.2 % MONO % (test code = 5905-5) 6.2 % EOS % (test code = 713-8) 0.5 % BASO % (test code = 706-2) 0.4 % GRAN MAT x10^3(ANC) (test code = 2613012498) 4.96 10*3/uL 1.88-7.09 IMM GRAN x10^3 (test code = 9121742839) 0.03 10*3/uL 0.00-0.06 LYMPH x10^3 (test code = 731-0) 2.07 10*3/uL 1.32-3.29 MONO x10^3 (test code = 742-7) 0.47 10*3/uL 0.33-0.92 EOS x10^3 (test code = 711-2) 0.04 10*3/uL 0.03-0.39 BASO x10^3 (test code = 704-7) 0.03 10*3/uL 0.01-0.07 Lab Interpretation (test code = 03670-5) [facility]normal [facility] CenterETHANOL2024-08-18 20:07:11 ALCOHOL<10mg/dL12/08/2023 3:07 PM [facility]<10 Caxcmmfz01-766 Toxic>100 Depression of FINISHED CARPET INSPECTOR>400 Fatalities ReportedCitizens Medical CenterMagnesium2024-08-18 20:07:06* Test Item Value Reference Range Interpretation Comme nts MAGNESIUM (test code = 3589158109) 1.1 mg/dL 1.7-2.4 L Lab Interpretation (test cod e = 89021-5) Abnormal [facility] CenterCOMP. METABOLIC PANEL (28206)2023-12-08 19:58:38* Test Item Value Reference Range Interpretation Comme nts NA (test code = 5909696613) 136 mmol/L 135-145 K (test code = 1488984046) 3.5 mmol/L 3.5-5.0 CL (test code = 4052550485) 97 mmol/L 98-108 L CO2 TOTAL (test code = 7405802370) 28 mmol/L 23-31 AGAP (test code = 2072281166) 11 2-16 BUN (test code = 4018289189) 9 mg/dL 7-23 GLUCOSE (test code = 8659181784) 113 mg/dL 70-110 H CREATININE (test code = 2160-0) 0.52 mg/dL 0.50-1.04 TOTAL BILI (test code = 1855922956) 1.5 mg/dL 0.1-1.1 H CALCIUM (test code = 2465893025) 9.3 mg/dL 8.6-10.6 T PROTEIN (test code = 1566366257) 8.6 g/dL 6.3-8.2 H ALBUMIN (test code = 5485035660) 4.7 g/dL 3.5-5.0 ALK PHOS (test code = 7524653725) 138 U/L 34-122 H ALTv (test code = 1742-6) 32 U/L 5-35 AST(SGOT) (test code = 5906791914) 71 U/L 13-40 H eGFR (test code = 67887-8) 126.0 mL/min/1.73m2 CKD-EPI eGFR (2020). Assuming creatinine has been stable day-to-day for at least three months, the eGFR indicates Category G1 (>= 90 mL/min/1.73 m2) Lab Interpretation (test code = 51848-6) [facility]normal [facility] CenterLIPASE2024-08-18 19:58:18* Test Item Value Reference Range Interpretation Comme nts LIPASE (test code = 3602229068) 122 U/L 0-220 Lab Interpretation (test cod e = 91962-5) Normal [facility] CenterAC Panel 21 + Lactic [id number] 19:41:27* Test Item Value Reference Range Interpretation Comme nts PH (test code = 0102923894) 7.45 7.32-7.42 H PCO2 TONY (test code = 9647011080) 41 41-51 PO2 TONY (test code = 4955715713) 32 25-40 HCO3 TONY (test code = 5018293629) 28 24-28 AC VBE(BEAKER) (test code = 7069695029) 3.6 mEq/L THB TONY (test code = 7180398752) 12.6 g/dL 12.0-16.0 %O2HB TONY (test code = 0340984569) 61.7 % 52.0-63.0 %COHB TONY (test code = 8991375712) 0.1 % 0.0-1.5 %METHB TONY (test code = 1227441093) 0.5 % 0.4-1.5 VOL%O2 TONY (test code = 8726638308) 10.9 % 6.0-12.0 NA (test code = 6153344974) 138 mmol/L 135-145 K+ (test code = 8223448694) 3.7 mmol/L 3.5-5.0 AC CA IONZ (test code = 6639539331) 4.50 mg/dL 4.50-5.30 GLUCOSE (test code = 4872299787) 101 mg/dL 70-110 LACTIC ACID (test code = 6385651706) 1.63 mmol/L 0.50-2.20 Lab Interpretation (test cod e = 66658-4) Abnormal [facility] CenterEthanol2024-08-16 09:16:23* Test Item Value Reference Range Interpretation Comme nts ALCOHOL (test code = 1202146688) 186 mg/dL JASMYN (test code = JASMYN) <10 Uhqcbqet19-383 Toxic>100 Depression of FINISHED CARPET INSPECTOR>400 Fatalities Reported [facility] CenterPOCT [id number] 03:09:00* Test Item Value Reference Range Interpretation Comme nts POCT PREG (test code = 1605) Negative On board controls acceptable with C Line (test code = 3574) Yes POCT PREG LOT # (test code = 3575) [id number] POCT PREG TEST DATE ( test code = 3576) 2025-03-03 Lab Interpretation (test cod e = 41064-3) Normal [facility] CenterTOTAL BHCG (QUANTITATIVE)2023-11-22 18:44:22 BETA HCG<2.39Non- female and male patients: <5 mIU/mL11/22/2023 1:44 PM [facility] Gestational Age ?Range (mIU/mL) 1-10 ?Weeks ?58-37170628-12 Weeks ?85933-34249924-10 Weeks ?5585-83401500-09 Weeks ?1614-490844 Biotin has been reported to cause a negative bias, interpret results relative to patient's use of biotin.[facility] TROPONIN [id number] 18:34:01* Test Item Value Reference Range Interpretation Comme [facility] TROPONIN I (test code = 5503412815) 0.006 ng/mL <=0.034 JASMYN (test code = [...] of biotin. Lab Interpretation (test code = 39699-5) Normal [facility] CenterCT HEAD WO [id number] 18:28:32FULL RESULT: Examination: CT HEAD WO CONTRAST, [...] no intrinsic bony lesion, fracture or traumatic malalignment.[facility] CenterCT CERVICAL SPINE WO CONTRAST 2023-11-22 [...] no intrinsic bony lesion, fracture or traumatic malalignment.[facility] CenterD-Yhpnl7134-72-37 18:25:38* Test Item Value Reference Range Interpretation Comments D-DIMER (test code = 6414110902) 0.36 See_Comment [Automated message] The system which [...] a diagnosis. Lab Interpretation (test code = 61619-0) Normal [facility] CenterETHANOL2024-08-02 18:23:36 ALCOHOL<10mg/dL11/22/2023 1:23 PM [facility]<10 Onworgyt26-380 Toxic>100 Depression of FINISHED CARPET INSPECTOR>400 Fatalities ReportedCitizens Medical CenterCOMP. METABOLIC PANEL (59860)2023-11-22 18:22:35* Test Item Value Reference Range Interpretation Comme nts NA (test code = 0816188863) 136 mmol/L 135-145 K (test code = 9752319921) 4.4 3.5-5.0 CL (test code = 0399645388) 100 mmol/L 98-108 CO2 TOTAL (test code = 6667311634) 24 mmol/L 23-31 AGAP (test code = 8283749301) 12 2-16 BUN (test code = 7743821643) 18 mg/dL 7-23 GLUCOSE (test code = 1040002114) 89 mg/dL 70-110 CREATININE (test code = 2160-0) 0.71 mg/dL 0.50-1.04 TOTAL BILI (test code = 7969662549) 0.8 mg/dL 0.1-1.1 CALCIUM (test code = 6969553097) 9.4 mg/dL 8.6-10.6 T PROTEIN (test code = 3807183036) 8.0 g/dL 6.3-8.2 ALBUMIN (test code = 3541428487) 4.4 g/dL 3.5-5.0 ALK PHOS (test code = 9778226393) 93 U/L 34-122 ALTv (test code = 1742-6) 32 U/L 5-35 AST(SGOT) (test code = 7692093566) 46 U/L 13-40 H eGFR (test code = 68578-9) 115.3 mL/min/1.73m2 CKD-EPI eGFR (2020). Assuming creatinine has been stable day-to-day for at least three months, the eGFR indicates Category G1 (>= 90 mL/min/1.73 m2) Lab Interpretation (test code = 74116-2) Abnormal [facility] CenterLIPASE2024-08-02 18:22:15* Test Item Value Reference Range Interpretation Comme nts LIPASE (test code = 1683278331) 75 U/L 0-220 Lab Interpretation (test cod e = 46321-8) Normal [facility] CenterCBC WITH [id number] 18:10:56* Test Item Value Reference Range Interpretation [...] 33.4 g/dL 31.6-35.1 RDW-SD (test code = 95316-5) 48.7 fL 39.0-49.9 RDW-CV (test code = 788-0) 13.1 % 12.0-15.5 PLT (test code = 777-3) 227 166-358 MPV (test code = 31105-7) 10.3 fL 9.5-12.9 NRBC/100 WBC (test code = 0177792805) 0.0 0.0-10.0 NRBC x10^3 (test code = 1743919906) See_Comment [Automated messa ge] The system which generated this result transmitted reference range: 10*3/?L. The reference range was not used to interpret this result as normal/abnormal. GRAN MAT (NEUT) % (test code = 770-8) 72.0 % IMM GRAN % (test code = 6821204249) 0.40 % LYMPH % (test code = 736-9) 13.8 % MONO % (test code = 5905-5) 12.5 % EOS % (test code = 713-8) 0.4 % BASO % (test code = 706-2) 0.9 % GRAN MAT x10^3(ANC) (test code = 9191312306) 5.35 10*3/uL 1.88-7.09 IMM GRAN x10^3 (test code = 9482920517) 0.03 10*3/uL 0.00-0.06 LYMPH x10^3 (test code = 731-0) 1.03 10*3/uL 1.32-3.29 L MONO x10^3 (test code = 742-7) 0.93 10*3/uL 0.33-0.92 H EOS x10^3 (test code = 711-2) 0.03 10*3/uL 0.03-0.39 BASO x10^3 (test code = 704-7) 0.07 10*3/uL 0.01-0.07 Lab Interpretation (test code = 99132-1) Abnormal [facility] CenterPOCT NYRI2027-54-07 04:25:00* Test Item Value Reference Range Interpretation Comme nts POCT PREG (test code = 1605) Negative On board controls acceptable with C Line (test code = 3574) Yes POCT PREG LOT # (test code = 3575) [id number] POCT PREG TEST DATE ( test code = 3576) 2024-08-29 Lab Interpretation (test cod e = 65898-6) Normal [facility] CenterVitamin B12, [place]4560-53-93 19:32:47* Test Item Value Reference Range Interpretation Comme nts VIT B12 (test code = 8305745810) 541 pg/mL 240-930 JASMYN (test code = JASMYN) Biotin has been reported to cause a positive bias, interpret results relative to patient's use of biotin. Lab Interpretation (test code = 46478-2) Normal [facility] CenterFolate2024-07-19 19:32:47* Test Item Value Reference Range Interpretation Comme nts FOLATE SER (test code = 9423318394) 5.0 ng/mL 3.0-20.0 Biotin has been reported to cause a positive bias, interpret results relative to patient's use of biotin. Lab Interpretation (test code = 74830-1) Normal [facility] CenterCT HEAD WO [id number] 16:36:26EXAM: CT HEAD WO CONTRAST HISTORY: 33 years-old Female; Provided indication: Headache, new orworsening, neuro deficit (Age 18-49y) . [facility]:"Patient admitted for alcohol withdrawal, now with [...] mastoid aircells and visualized paranasal airsinuses are clear.[facility] CenterMagnesium2024-07-19 10:13:17* Test Item Value Reference Range Interpretation Comme nts MAGNESIUM (test code = 6148294199) 1.6 mg/dL 1.7-2.4 L Lab Interpretation (test cod e = 17348-0) Abnormal [facility] CenterBasic Metabolic Panel (NA, K, CL, CO2, GLUCOSE, BUN, CREATININE, CA)2023-11-08 10:13:02* Test Item Value Reference Range Interpretation Comme nts NA (test code = 4253653514) 135 mmol/L 135-145 K (test code = 3189808804) 3.2 mmol/L 3.5-5.0 L CL (test code = 9558379016) 98 mmol/L 98-108 CO2 TOTAL (test code = 8896182580) 29 mmol/L 23-31 AGAP (test code = 4046229733) 8 2-16 BUN (test code = 3104170364) 5 mg/dL 7-23 L GLUCOSE (test code = 5168270972) 113 mg/dL 70-110 H CREATININE (test code = 2160-0) 0.50 mg/dL 0.50-1.04 CALCIUM (test code = 2150429640) 8.9 mg/dL 8.6-10.6 eGFR (test code = 79011-1) 127.2 mL/min/1.73m2 CKD-EPI eGFR (2020). Assuming creatinine has been stable day-to-day for at least three months, the eGFR indicates Category G1 (>= 90 mL/min/1.73 m2) Lab Interpretation (test code = 32925-7) Abnormal [facility] CenterHepatic Function Panel (76507) (ALB,T.PRO,BILI T,BU/BC,ALT,AST,ALK PHOS)2023-11-08 10:13:02* Test Item Value Reference Range Interpretation Comme nts TOTAL BILI (test code = 0728550961) 1.3 mg/dL 0.1-1.1 H BILI UNCON (test code = 5765185737) 0.5 mg/dL 0.1-1.1 BILI CONJ (test code = 5652758260) 0.0 mg/dL 0.0-0.3 T PROTEIN (test code = 5507431598) 7.0 g/dL 6.3-8.2 ALBUMIN (test code = 8911365797) 4.0 g/dL 3.5-5.0 ALK PHOS (test code = 8707788019) 201 U/L 34-122 H ALTv (test code = 1742-6) 111 U/L 5-35 H AST(SGOT) (test code = 7957976153) 426 U/L 13-40 H Lab Interpretation (test cod e = 43172-5) Abnormal [facility] CenterPhosphorus2024-07-19 10:13:01* Test Item Value Reference Range Interpretation Comme nts PHOSPHORUS (test code = 2619033902) 1.3 mg/dL 2.5-5.0 L Lab Interpretation (test cod e = 57668-2) Abnormal [facility] CenterCbc without Ghip6659-40-84 09:41:55* Test Item Value Reference Range Interpretation [...] 160 166-358 L MPV (test code = 76300-7) 9.9 fL 9.5-12.9 RDW-CV (test code = 788-0) 13.2 % 12.0-15.5 RDW-SD (test code = 28368-3) 48.1 fL 39.0-49.9 NRBC x10^3 (test code = 1873332896) See_Comment [Automated Vikia ge] The system which generated this result transmitted reference range: 10*3/?L. The reference range was not used to interpret this result as normal/abnormal. NRBC/100 WBC (test code = 7124349773) 0.0 0.0-10.0 IPF % (test code = 4067650674) Lab Interpretation (test code = 53154-2) Abnormal [facility] CenterLactic Acid Whole Zrqjz7386-50-02 07:27:21* Test Item Value Reference Range Interpretation Comme nts LACTIC ACID (test code = 5313220906) 2.14 mmol/L 0.50-2.20 Lab Interpretation (test cod e = 65633-9) Normal [facility] CenterAcute Care Venous Blood Jrq1841-12-39 01:17:39 * Test Item Value Reference Range Interpretation Comme nts PH (test code = 7534449668) 7.28 7.32-7.42 L PCO2 TONY (test code = 0611898655) 35 41-51 L PO2 TONY (test code = 3741053669) 32 25-40 HCO3 TONY (test code = 1478803057) 16 24-28 L AC VBE(BEAKER) (test code = 7499321379) -9.8 mEq/L Lab Interpretation (test cod e = 65560-8) Abnormal [facility] CenterLactic Acid Whole Cjjie2212-69-72 01:07:01* Test Item Value Reference Range Interpretation Comme nts LACTIC ACID (test code = 2589091574) 3.31 mmol/L 0.50-2.20 H Lab Interpretation (test cod e = 63189-2) Abnormal [facility] CenterCritical [id number] 20:43:53Krista Cabrera MD ? ? 11/06/2023 ?3:43 PMCritical Care Performed by: Krista Cabrera MDAsac-osage hospitalorizedby: Krista Cabrera MD ?Critical care provider statement: [...] separately billable procedures and treating other patients. [facility] [id number] 19:33:09* Test Item Value Reference Range Interpretation Comme nts TROPONIN I (test code = 5890822413) 0.004 ng/mL <=0.034 JASMYN (test code = [...] of biotin. Lab Interpretation (test code = 27545-2) Normal [facility] CenterETHANOL2024-07-17 19:33:09* Test Item Value Reference Range Interpretation Comme nts ALCOHOL (test code = 9221927453) 363 mg/dL JASMYN (test code = JASMYN) <10 Pnpvvuiz37-777 Toxic>100 Depression of FINISHED CARPET INSPECTOR>400 Fatalities Reported [id number] 19:30:31* Test Item Value Reference Range Interpretation Comme nts NT-proBNP (test code = 06886-6) 108 pg/mL <=125 Lab Interpretation (test cod e = 52859-4) [id number] 19:25:00* Test Item Value Reference Range Interpretation Comme nts POCT PREG (test code = 1605) Negative On board controls acceptable with C Line (test code = 3574) Yes POCT PREG LOT # (test code = 3575) [id number] POCT PREG TEST DATE ( test code = 3576) 2024-08-27 Lab Interpretation (test cod e = 00230-8) [facility] [facility]2024-[facility] 19:16:32* Test Item Value Reference Range Interpretation Comme nts MAGNESIUM (test code = 8163399508) 2.2 mg/dL 1.7-2.4 Lab Interpretation (test cod e = 75332-2) [facility]OL[facility] (85840)2023-11-06 19:16:12* Test Item Value Reference Range Interpretation Comme nts NA (test code = 9708422182) 141 mmol/L 135-145 K (test code = 9300267346) 4.3 mmol/L 3.5-5.0 CL (test code = 3546134081) 100 mmol/L 98-108 CO2 TOTAL (test code = 6284075121) 14 mmol/L 23-31 L AGAP (test code = 2465275823) 27 2-16 H BUN (test code = 8719527158) 12 mg/dL 7-23 GLUCOSE (test code = 7022207970) 60 mg/dL 70-110 L CREATININE (test code = 2160-0) 0.68 mg/dL 0.50-1.04 TOTAL BILI (test code = 1864623705) 1.4 mg/dL 0.1-1.1 H CALCIUM (test code = 2035536465) 9.0 mg/dL 8.6-10.6 T PROTEIN (test code = 5544768530) 9.7 g/dL 6.3-8.2 H ALBUMIN (test code = 5808254556) 5.4 g/dL 3.5-5.0 H ALK PHOS (test code = 1272870637) 207 U/L 34-122 H ALTv (test code = 1742-6) 79 U/L 5-35 H AST(SGOT) (test code = 3579099551) 154 U/L 13-40 H eGFR (test code = 03416-7) 118.1 mL/min/1.73m2 CKD-EPI eGFR (2020). Assuming creatinine has been stable day-to-day for at least three months, the eGFR indicates Category G1 (>= 90 mL/min/1.73 m2) Lab Interpretation (test code = 83110-1) [facility] 19:15:46* Test Item Value Reference Range Interpretation Comme nts LIPASE (test code = 2707176353) 117 U/L 0-220 Lab Interpretation (test cod e = 80974-9) [facility] CenterCBC WITH SORA4449-17-21 19:07:27* Test Item Value Reference Range Interpretation [...] 32.3 g/dL 31.6-35.1 RDW-SD (test code = 53876-4) 53.5 fL 39.0-49.9 H RDW-CV (test code = 788-0) 13.9 % 12.0-15.5 PLT (test code = 777-3) 345 166-358 MPV (test code = 54106-0) 9.2 fL 9.5-12.9 L NRBC/100 WBC (test code = 6620659147) 0.0 0.0-10.0 NRBC x10^3 (test code = 5244089637) See_Comment [Automated messa ge] The system which generated this result transmitted reference range: 10*3/?L. The reference range was not used to interpret this result as normal/abnormal. GRAN MAT (NEUT) % (test code = 770-8) 57.5 % IMM GRAN % (test code = 4388082103) 0.90 % LYMPH % (test code = 736-9) 29.1 % MONO % (test code = 5905-5) 10.5 % EOS % (test code = 713-8) 0.0 % BASO % (test code = 706-2) 2.0 % GRAN MAT x10^3(ANC) (test code = 8882326762) 3.65 10*3/uL 1.88-7.09 IMM GRAN x10^3 (test code = 1371733646) 0.06 10*3/uL 0.00-0.06 LYMPH x10^3 (test code = 731-0) 1.85 10*3/uL 1.32-3.29 MONO x10^3 (test code = 742-7) 0.67 10*3/uL 0.33-0.92 EOS x10^3 (test code = 711-2) 0.03-0.39 L BASO x10^3 (test code = 704-7) 0.13 10*3/uL 0.01-0.07 H Lab Interpretation (test code = 81858-9) [facility] CenterAC [facility] 21 + LACTIC [id number] 18:57:00* Test Item Value Reference Range Interpretation Comme nts PH (test code = 1994222904) 7.16 7.32-7.42 LL PCO2 TONY (test code = 1674669000) 37 41-51 L PO2 TONY (test code = 6418801850) 44 25-40 H HCO3 TONY (test code = 6110015367) 13 24-28 L AC VBE(BEAKER) (test code = 2025701939) -15.1 mEq/L THB TONY (test code = 0313154164) 15.7 g/dL 12.0-16.0 %O2HB TONY (test code = 3038563305) 72.1 % 52.0-63.0 H %COHB TONY (test code = 3311677281) 0.4 % 0.0-1.5 %METHB TONY (test code = 3358436278) 0.3 % 0.4-1.5 L VOL%O2 TONY (test code = 0872016671) 15.9 % 6.0-12.0 H NA (test code = 0781786187) 142 mmol/L 135-145 K+ (test code = 5290791705) 4.2 mmol/L 3.5-5.0 AC CA IONZ (test code = 4204351258) 4.90 mg/dL 4.50-5.30 GLUCOSE (test code = 8487432394) 49 mg/dL 70-110 LL LACTIC ACID (test code = 1857451546) 3.62 mmol/L 0.50-2.20 H Lab Interpretation (test cod e = 46745-3) [facility]normal [facility] CenterEthanol2024-07-08 05:06:04* Test Item Value Reference Range Interpretation Comme nts ALCOHOL (test code = 5729439820) 416 mg/dL JASMYN (test code = JASMYN) <10 Vcfzbqpn15-678 Toxic>100 Depression of FINISHED CARPET INSPECTOR>400 Fatalities Reported [facility] CenterSalicylate2024-07-08 04:57:31 SALICYLATE<10mg/L10/27/2023 11:57 PM [facility] Range: ? Analgesic and Antipyretic Use ? 20- 100 mg/L ? ? Anti-Inflammatory Use ?100-250 mg/L Toxic Range: ? Greater than 300 mg/LUnVal [facility] CenterAcetaminophen2024-07-08 04:57:16* Test Item Value Reference Range Interpretation Comme nts ACETAMINOP (test code = 7027217877) 10.0-30.0 L JASMYN (test code = JASMYN) Toxic: Greater coreen n 200 ug/mL @ 4 hour post ingestion or greater than 50 ug/mL @ 12 hour post ingestion Lab Interpretation (test code = 52199-2) [facility] CenterCOMP. METABOLIC PANEL (08771)2023-10-28 04:56:21* Test Item Value Reference Range Interpretation Comme nts NA (test code = 3771185632) 143 mmol/L 135-145 K (test code = 0811189291) 4.1 mmol/L 3.5-5.0 CL (test code = 7932358709) 102 mmol/L 98-108 CO2 TOTAL (test code = 6343868272) 27 mmol/L 23-31 AGAP (test code = 9531187424) 14 2-16 BUN (test code = 1448269582) 13 mg/dL 7-23 GLUCOSE (test code = 3479122014) 75 mg/dL 70-110 CREATININE (test code = 2160-0) 0.59 mg/dL 0.50-1.04 TOTAL BILI (test code = 0431545153) 1.2 mg/dL 0.1-1.1 H CALCIUM (test code = 4724800994) 8.9 mg/dL 8.6-10.6 T PROTEIN (test code = 6795926669) 8.4 g/dL 6.3-8.2 H ALBUMIN (test code = 1920120509) 4.6 g/dL 3.5-5.0 ALK PHOS (test code = 0945603083) 169 U/L 34-122 H ALTv (test code = 1742-6) 82 U/L 5-35 H AST(SGOT) (test code = 4550520183) 217 U/L 13-40 H eGFR (test code = 74289-4) 122.2 mL/min/1.73m2 CKD-EPI eGFR (2020). Assuming creatinine has been stable day-to-day for at least three months, the eGFR indicates Category G1 (>= 90 mL/min/1.73 m2) Lab Interpretation (test code = 86157-8) Abnormal [facility] WITH [id number] 03:57:19* Test Item Value Reference Range Interpretation [...] 33.5 g/dL 31.6-35.1 RDW-SD (test code = 83868-9) 55.2 fL 39.0-49.9 H RDW-CV (test code = 788-0) 14.6 % 12.0-15.5 PLT (test code = 777-3) 210 166-358 MPV (test code = 84682-9) 9.3 fL 9.5-12.9 L NRBC/100 WBC (test code = 9920427992) 0.0 0.0-10.0 NRBC x10^3 (test code = 5001722228) See_Comment [Automated messa ge] The system which generated this result transmitted reference range: 10*3/?L. The reference range was not used to interpret this result as normal/abnormal. GRAN MAT (NEUT) % (test code = 770-8) 49.7 % IMM GRAN % (test code = 4932325249) 0.20 % LYMPH % (test code = 736-9) 38.7 % MONO % (test code = 5905-5) 9.4 % EOS % (test code = 713-8) 0.4 % BASO % (test code = 706-2) 1.6 % GRAN MAT x10^3(ANC) (test code = 6458018015) 2.55 10*3/uL 1.88-7.09 IMM GRAN x10^3 (test code = 7750908310) 0.00-0.06 LYMPH x10^3 (test code = 731-0) 1.98 10*3/uL 1.32-3.29 MONO x10^3 (test code = 742-7) 0.48 10*3/uL 0.33-0.92 EOS x10^3 (test code = 711-2) 0.03-0.39 L BASO x10^3 (test code = 704-7) 0.08 10*3/uL 0.01-0.07 H Lab Interpretation (test code = 39371-6) Abnormal [facility] [id number] 03:42:00* Test Item Value Reference Range Interpretation Comme nts POCT PREG (test code = 1605) Negative On board controls acceptable with C Line (test code = 3574) Yes POCT PREG LOT # (test code = 3575) [id number] POCT PREG TEST DATE ( test code = 3576) 08/27/2024 Lab Interpretation (test cod e = 52243-9) Normal [facility] GLUCOSE (AUTOMATED)2023-10-19 15:53:48* Test Item Value Reference Range Interpretation Comme nts POCT GLU (test code = 5687902073) 69 mg/dL 70-110 L Notified Provide r Lab Interpretation (test code = 49284-3) Abnormal [facility] GLUCOSE(AGE >30DAYS)2023-10-19 15:53:00* Test Item Value Reference Range Interpretation Comme nts POCT Glu (age>30days) (test code = 3342) 69 mg/dL, ED provider notified 70-110 Lab Interpretation (test code = 87461-2) Normal [facility] CenterLactic Acid Whole Cteao6876-19-44 21:09:38* Test Item Value Reference Range Interpretation Comme nts LACTIC ACID (test code = 1644240058) 2.03 mmol/L 0.50-2.20 Lab Interpretation (test cod e = 77315-1) Normal [facility] CenterLipase2024-05-30 19:51:22* Test Item Value Reference Range Interpretation Comme nts LIPASE (test code = 2735200419) 317 U/L 0-220 H Lab Interpretation (test cod e = 42835-4) [facility]normal [facility] CenterCbc with Fktq9368-67-54 18:33:19* Test Item Value Reference Range Interpretation [...] 34.6 g/dL 31.6-35.1 RDW-SD (test code = 96408-0) 46.7 fL 39.0-49.9 RDW-CV (test code = 788-0) 13.2 % 12.0-15.5 PLT (test code = 777-3) 90 166-358 L MPV (test code = 38098-8) 9.6 fL 9.5-12.9 IPF % (test code = 3487528717) 3.9 % 1.3-7.7 Platelet count measured by fluorescence method. NRBC/100 WBC (test code = 4843659150) 0.0 0.0-10.0 NRBC x10^3 (test code = 9498725582) See_Comment [Automated messa ge] The system which generated this result transmitted reference range: 10*3/?L. The reference range was not used to interpret this result as normal/abnormal. GRAN MAT (NEUT) % (test code = 770-8) 68.9 % IMM GRAN % (test code = 6957527279) 1.20 % LYMPH % (test code = 736-9) 20.5 % MONO % (test code = 5905-5) 8.3 % EOS % (test code = 713-8) 0.3 % BASO % (test code = 706-2) 0.8 % GRAN MAT x10^3(ANC) (test code = 7784028914) 4.06 10*3/uL 1.88-7.09 IMM GRAN x10^3 (test code = 8715316261) 0.07 10*3/uL 0.00-0.06 H LYMPH x10^3 (test code = 731-0) 1.21 10*3/uL 1.32-3.29 L MONO x10^3 (test code = 742-7) 0.49 10*3/uL 0.33-0.92 EOS x10^3 (test code = 711-2) 0.03-0.39 L BASO x10^3 (test code = 704-7) 0.05 10*3/uL 0.01-0.07 BANDS (test code = 2458227127) Increased A Lab Interpretation (test code = 71797-6) [facility]normal [facility] CenterCreatine Xlofbr0223-45-46 18:21:08* Test Item Value Reference Range Interpretation Comme nts CK (test code = 0579670029) 112 U/L 33-194 Lab Interpretation (test cod e = 46464-0) Normal [facility] CenterComp. Metabolic Panel (30074)2023-09-19 18:01:22* Test Item Value Reference Range Interpretation Comme nts NA (test code = 2097011801) 139 mmol/L 135-145 K (test code = 7673956984) 3.5 mmol/L 3.5-5.0 CL (test code = 6118596034) 97 mmol/L 98-108 L CO2 TOTAL (test code = 6505540167) 29 mmol/L 23-31 AGAP (test code = 1693471116) 13 2-16 BUN (test code = 5447232123) 14 mg/dL 7-23 GLUCOSE (test code = 4827418821) 116 mg/dL 70-110 H CREATININE (test code = 2160-0) 0.64 mg/dL 0.50-1.04 TOTAL BILI (test code = 8809482829) 1.0 mg/dL 0.1-1.1 CALCIUM (test code = 9025958269) 8.9 mg/dL 8.6-10.6 T PROTEIN (test code = 7112138951) 8.7 g/dL 6.3-8.2 H ALBUMIN (test code = 2706232106) 4.7 g/dL 3.5-5.0 ALK PHOS (test code = 8052987730) 267 U/L 34-122 H ALTv (test code = 1742-6) 63 U/L 5-35 H AST(SGOT) (test code = 0250468176) 277 U/L 13-40 H eGFR (test code = 29768-7) 119.8 mL/min/1.73m2 CKD-EPI eGFR (2020). Assuming creatinine has been stable day-to-day for at least three months, the eGFR indicates Category G1 (>= 90 mL/min/1.73 m2) Lab Interpretation (test code = 42065-2) [facility] CenterXR CHEST 1 [id number] 17:15:42HISTORY: Tachycardia, cough, COVID. TECHNIQUE: Portable AP upright view of the chest is obtained. Comparisonmade with 09/13/2023 study. FINDINGS: No acute pneumonia. No pneumothorax or pleural effusion orpulmonary congestion detected. Cardiac size is within normal limits. CONCLUSIONS: No signs of acute cardiopulmonary disease. [facility] CenterLactic Acid Whole Hqwfg8150-31-08 17:11:09* Test Item Value Reference Range Interpretation Comme nts LACTIC ACID (test code = 8385015518) 4.10 mmol/L 0.50-2.20 H Lab Interpretation (test cod e = 73241-6) [facility]normal [facility] CenterCT CHEST PULMONARY VSAGAYOUI9989-97-40 17:58:59Provider: CECILE JUAN CARLOS Exam: CT CHEST PULMONARY ANGIOGRAM Clinical history: [...] Musculoskeletal: No acute bony abnormality.[facility] [id number] 17:47:34* Test Item Value Reference Range Interpretation Comme nts TROPONIN I (test code = 9167529880) 0.003 ng/mL <=0.034 JASMYN (test code = [...] of biotin. Lab Interpretation (test code = 91355-1) Normal [facility] CenterN-TERMINAL YVS-JLK0241-15-26 17:45:17* Test Item Value Reference Range Interpretation Comme nts NT-proBNP (test code = 31441-1) 48 pg/mL <=125 Lab Interpretation (test cod e = 28746-5) Normal [facility]. METABOLIC PANEL (06733)2023-09-15 17:36:58* Test Item Value Reference Range Interpretation Comme nts NA (test code = 7730091032) 144 mmol/L 135-145 K (test code = 5521509561) 3.4 mmol/L 3.5-5.0 L CL (test code = 6135312267) 102 mmol/L 98-108 CO2 TOTAL (test code = 7681468393) 33 mmol/L 23-31 H AGAP (test code = 5371591560) 9 2-16 BUN (test code = 2181001939) 7 mg/dL 7-23 GLUCOSE (test code = 2661969176) 91 mg/dL 70-110 CREATININE (test code = 2160-0) 0.63 mg/dL 0.50-1.04 TOTAL BILI (test code = 6574380663) 1.0 mg/dL 0.1-1.1 CALCIUM (test code = 4647199294) 8.5 mg/dL 8.6-10.6 L T PROTEIN (test code = 0030397608) 8.0 g/dL 6.3-8.2 ALBUMIN (test code = 3212155174) 4.2 g/dL 3.5-5.0 ALK PHOS (test code = 7732364240) 182 U/L 34-122 H ALTv (test code = 1742-6) 48 U/L 5-35 H AST(SGOT) (test code = 4082202185) 175 U/L 13-40 H eGFR (test code = 75135-8) 120.3 mL/min/1.73m2 CKD-EPI eGFR (2020). Assuming creatinine has been stable day-to-day for at least three months, the eGFR indicates Category G1 (>= 90 mL/min/1.73 m2) Lab Interpretation (test code = 26555-9) [facility]normal [facility] CenterD-UGDAV0707-04-32 17:13:34* Test Item Value Reference Range Interpretation Comments D-DIMER (test code = 0707509115) 0.93 See_Comment H [Automated message] The system [...] a diagnosis. Lab Interpretation (test code = 08482-1) Abnormal [facility] WITH [id number] 17:06:37* Test Item Value Reference Range Interpretation [...] 34.4 g/dL 31.6-35.1 RDW-SD (test code = 99110-8) 46.2 fL 39.0-49.9 RDW-CV (test code = 788-0) 12.9 % 12.0-15.5 PLT (test code = 777-3) 150 166-358 L MPV (test code = 30564-0) 9.1 fL 9.5-12.9 L NRBC/100 WBC (test code = 0567989178) 0.0 0.0-10.0 NRBC x10^3 (test code = 2355410682) See_Comment [Automated Vikia ge] The system which generated this result transmitted reference range: 10*3/?L. The reference range was not used to interpret this result as normal/abnormal. GRAN MAT (NEUT) % (test code = 770-8) 50.9 % IMM GRAN % (test code = 7981346528) 0.50 % LYMPH % (test code = 736-9) 39.0 % MONO % (test code = 5905-5) 7.1 % EOS % (test code = 713-8) 1.0 % BASO % (test code = 706-2) 1.5 % GRAN MAT x10^3(ANC) (test code = 9580017676) 3.02 10*3/uL 1.88-7.09 IMM GRAN x10^3 (test code = 1949366730) 0.03 10*3/uL 0.00-0.06 LYMPH x10^3 (test code = 731-0) 2.31 10*3/uL 1.32-3.29 MONO x10^3 (test code = 742-7) 0.42 10*3/uL 0.33-0.92 EOS x10^3 (test code = 711-2) 0.06 10*3/uL 0.03-0.39 BASO x10^3 (test code = 704-7) 0.09 10*3/uL 0.01-0.07 H Lab Interpretation (test code = 54219-3) [facility]normal [facility] CenterLactic Acid Whole Mqoto2626-41-00 16:57:54* Test Item Value Reference Range Interpretation Comme nts LACTIC ACID (test code = 3815777276) 1.81 mmol/L 0.50-2.20 Lab Interpretation (test cod e = 45248-6) Normal [facility] IDZA8946-52-04 16:53:00* Test Item Value Reference Range Interpretation Comme nts POCT PREG (test code = 1605) Negative On board controls acceptable with C Line (test code = 3574) Yes POCT PREG LOT # (test code = 3575) [id number] POCT PREG TEST DATE ( test code = 3576) 08-23-2024 Lab Interpretation (test cod e = 10269-6) Normal [facility]XR [facility] 2 [id number] 00:39:44Exam: Chest (2 Views), 09/13/2023 6:30 PM. Ordering Physician: ELENO OLMSTEAD. History: fever . Technique: Two views of the chest. Comparison: None. Findings: No focal consolidation. No pneumothorax or effusion. Normal size of thecardiac silhouette. No acute osseous finding.[facility] ETIV7172-12-16 00:14:00* Test Item Value Reference Range Interpretation Comme nts POCT PREG (test code = 1605) Negative On board controls acceptable with C Line (test code = 3574) Yes POCT PREG LOT # (test code = 3574) [id number] POCT PREG TEST DATE ( test code = 3576) 05/27/2024 Lab Interpretation (test cod e = 19068-6) Normal [facility] CenterTransthoracic echo (TTE)2023-04-27 05:37:38* Test Item Value Reference Range Interpretation Comme nts Height (test code = 8957825590) 67 in Weight (test code = 5373127863) 109 lbs Systolic BP (test code = 1908196266) 102 mmHg Diastolic BP (test code = 5139967040) 67 mmHg Heart Rate (test code = 8556546153) 78 bpm BSA (test code = 6908689046) 1.56 m2 Ao root diam (test code = 2178479423) 3.10 cm Aortic root (test code = 3734048398) 3.1 cm Ao root annulus (test code = 0533836167) 3.1 cm LVOT diameter (test code = 8930611142) 2.02 cm LVOT area (test code = 7686201001) 3.20 cm2 LVIDD (test code = 1878035271) 3.60 cm Left Ventricular End Diastolic Volume by Teichholz Method (test code = 6633534) 56.1 mL IVS (test code = 4788433698) 0.63 cm Interventricular Septum Diastolic Thickness by 2D (test code = 7798271) 0.63 cm LVPWD (test code = 5838369218) 0.65 cm PW (test code = 9643727322) 0.65 cm 0.6-1.1 EF(Teich) (test code = 6234846204) 54.30 % LVIDS (test code = 5392919144) 2.60 cm Left Ventricular End Systolic Volume by Teichholz Method (test code = 3220383) 25.6 mL FS (test code = 9358280467) 28 % EF - 2D (test code = 10331278) 54.30 % LA size (test code = 4355945900) 2.8 cm LAV(MOD-sp4) (test code = 1348468633) 25.30 mL E wave decelartion time (test code = 6636678861) 0.19 s MV stenosis pressure 1/2 time (test code = 5411663111) 55.0 ms MV Peak A Liv (test code = 4872810321) 50.8 cm/s MV Peak E Liv (test code = 1745700119) 84.4 cm/s E/A ratio (test code = 8918871655) 1.66 ratio MV Prop V (test code = 8916182578) 37.10 cm/s MV E/e' septal (test code = 5905208264) 22.4 cm/s Tapse (test code = 9130245535) 1.68 cm LVOT stroke volume (test code = 9629571799) 46.00 cm3 LVOT peak liv (test code = 2749450624) 77.0 cm/s LVOT mn grad (test code = 9990862719) 1.3 mmHg AV LVOT peak gradient (test code = 9737149983) 2.37 mmHg LVOT peak VTI (test code = 3626521380) 14.3 cm LV V1 mean (test code = 4087868894) 54.20 cm/s Aortic valve mean velocity (test code = 0440145190) 82.4 cm/s Ao peak liv (test code = 3328461757) 108.4 cm/s Ao VTI (test code = 1893262370) 20.9 cm AV area by cont VTI (test code = 8459362151) 2.2 cm2 AV area peak liv (test code = 9637158739) 2.3 cm2 Ao max PG (test code = 7799890277) 4.70 mm[Hg] AV peak gradient (test code = 7031480590) 4.7 mmHg AV valve area (test code = 6673106705) 2.20 cm2 AV mean gradient (test code = 4854284228) 2.9 mmHg MR max PG (test code = 4413911828) 94.40 mm[Hg] MR max liv (test code = 8882896676) 485.70 cm/s Mr max liv (test code = 3489583567) 485.7 m/s Radiology Study observation (narrative) (test code = 79771-1) JASMYN (test code = JASMNY) ?Left?Ventricle: Left ventricle size is normal. Normal [...] 2D, color flow Doppler and spectral Doppler. [facility] with Hgxedwlyvvcg0970-19-47 12:37:35* Test Item Value Reference Range Interpretation Comme nts WBC (test code = 6690-2) 3.78 See_Comment L [Automated Vikia Heekya] The system which generated this result transmitted reference range: 4.30 - 11.10 10*3/?L. The reference range was not used to interpret this result as normal/abnormal. RBC (test code = 789-8) 2.95 See_Comment L [Automated Vikia Heekya] The system which generated this result transmitted [...] 33.8 g/dL 31.6-35.1 RDW-SD (test code = 73834-6) 45.7 fL 39.0-49.9 RDW-CV (test code = 788-0) 12.6 % 12.0-15.5 PLT (test code = 777-3) 95 See_Comment L [Automated messa ge] The system which generated this result transmitted reference range: 166 - 358 10*3/?L. The reference range was not used to interpret this result as normal/abnormal. MPV (test code = 81410-2) 11.6 fL 9.5-12.9 IPF % (test code = 6068720716) 9.1 % 1.3-7.7 H Platelet count measured by fluorescence method. NRBC/100 WBC (test code = 2171355413) 0.0 See_Comment [Automated Jimmy Fairly ssage] The system which generated this result transmitted reference range: 0.0 - 10.0 /100 WBCs. The reference range was not used to interpret this result as normal/abnormal. NRBC x10^3 (test code = 7019098478) See_Comment [Automated Vikia ge] The system which generated this result transmitted reference range: 10*3/?L. The reference range was not used to interpret this result as normal/abnormal. SEG % (test code = 50360-3) 56 % 33-76 LYMPH % (test code = 56297-9) 32 % 14-54 MONO % (test code = 68608-8) 12 % 0-4 H ANC (test code = 753-4) 2.12 10*3/uL 1.88-7.09 Lab Interpretation (test code = 31967-3) Abnormal [facility] CenterProthrombin Time / [id number] 11:49:08* Test Item Value Reference Range Interpretation [...] the indications. Lab Interpretation (test code = 95488-4) [facility]normal [facility] CenteraPTT2024-01-04 11:49:08* Test Item Value Reference Range Interpretation Comme [facility] APTT Patient (test code = 3173-2) 29 See_Comment [Automated message] The system which generated this result transmitted reference range: 23 - 38 Seconds. The reference range was not used to interpret this result as normal/abnormal. JASMYN (test code = JASMYN) The [facility] patient population mean normal value for aPTT is 30 seconds. Lab Interpretation (test code = 74256-0) Normal [facility] CenterCom. Metabolic Panel (62600)2023-04-25 11:44:23* Test Item Value Reference Range Interpretation Comme [facility] NA (test code = 6626805316) 136 mmol/L 135-145 K (test code = 9053624702) 2.6 mmol/L 3.5-5.0 LL CL (test code = 4764906791) 100 mmol/L 98-108 CO2 TOTAL (test code = 7989620807) 30 mmol/L 23-31 AGAP (test code = 1657759617) 6 2-16 BUN (test code = 5087279240) 16 mg/dL 7-23 GLUCOSE (test code = 0878044412) 96 mg/dL 70-110 CREATININE (test code = 0324712033) 0.71 mg/dL 0.50-1.04 TOTAL BILI (test code = 0150201984) 4.0 mg/dL 0.1-1.1 H CALCIUM (test code = 8724153757) 7.5 mg/dL 8.6-10.6 L T PROTEIN (test code = 3772124722) 5.8 g/dL 6.3-8.2 L ALBUMIN (test code = 9935619271) 3.0 g/dL 3.5-5.0 L ALK PHOS (test code = 8853745361) 170 U/L 34-122 H ALTv (test code = 1742-6) 50 U/L 5-35 H AST(SGOT) (test code = 5352594418) 139 U/L 13-40 H eGFR (test code = 24958-4) 115.3 mL/min/1.73m2 CKD-EPI eGFR (2020). Assuming creatinine has been stable day-to-day for at least three months, the eGFR indicates Category G1 (>= 90 mL/min/1.73 m2) Lab Interpretation (test code = 73925-7) [facility] [id number] 11:43:47* Test Item Value Reference Range Interpretation Comme nts MAGNESIUM (test code = 0063719760) 2.0 mg/dL 1.7-2.4 Lab Interpretation (test cod e = 80301-9) Normal [id number] 11:43:47* Test Item Value Reference Range Interpretation Comme nts NT-proBNP (test code = 61192-5) 399 pg/mL <=125 JASMYN (test code = JASMYN) Result Indeterminate-Consid er causes of NT-proBNP elevation other than Heart failure such as acute coronary syndrome, pulmonary embolism, pulmonary hypertension, sepsis, stroke, and renal dysfunction. Lab Interpretation (test code = 15457-1) [facility]normal [facility] 11:43:47* Test Item Value Reference Range Interpretation Comme nts LIPASE (test code = 4905123552) 475 U/L 0-220 H Lab Interpretation (test cod e = 31554-3) [facility]normal [facility] [id number] 06:12:16* Test Item Value Reference Range Interpretation Comme nts PHOSPHORUS (test code = 0612812155) 2.0 mg/dL 2.5-5.0 L Slight hemolysis Lab Interpretation (test code = 58809-6) [facility] 04:47:27* Test Item Value Reference Range Interpretation Comme nts LIPASE (test code = 3061264510) 506 U/L 0-220 H Lab Interpretation (test cod e = 73090-6) [facility] W [id number] 01:43:47History: Abdominal abscess/infection suspected Elevated bilirubin 6.9, etohabuse, hallucinations. Exam: CT ABDOMEN PELVIS W CONTRAST Date: 04/24/2023 6:15 PM Ordering provider: K ALYSSA BANDAR Technique: Axial CT scanning of the abdomen [...] obstruction, perforation, or abscess. The osseous structures areunremarkable.[facility]Ethanol[facility] 00:23:03 ALCOHOL<10mg/dL04/24/2023 6:23 PM [facility]10 Mttptwcm36-736 Toxic>100 Depression of FINISHED CARPET INSPECTOR>400 Fatalities ReportedUnVal Verde Regional Medical CenterAmmonia, Quqkbz8537-00-02 23:56:33* Test Item Value Reference Range Interpretation Comme nts AMMONIA (test code = 0282009537) 24 umol/L 9-33 Lab Interpretation (test cod e = 08499-7) [facility] Ucid4597-39-20 23:41:00* Test Item Value Reference Range Interpretation Comme nts POCT PREG (test code = 1605) Negative On board controls acceptable with C Line (test code = 3574) Yes POCT PREG LOT # (test code = 3575) [id number] POCT PREG TEST DATE ( test code = 3576) 06/30/2024 Lab Interpretation (test cod e = 82237-0) [facility] CenterMagnesium2024-01-03 23:24:49* Test Item Value Reference Range Interpretation Comme nts MAGNESIUM (test code = 0675249312) 1.4 mg/dL 1.7-2.4 L Lab Interpretation (test cod e = 57224-8) [facility]normal [facility] CenterComp. Metabolic Panel (67911)2023-04-24 23:24:28* Test Item Value Reference Range Interpretation Comme nts NA (test code = 6549927295) 134 mmol/L 135-145 L K (test code = 4667739836) 3.6 mmol/L 3.5-5.0 CL (test code = 3017086895) 91 mmol/L 98-108 L CO2 TOTAL (test code = 0023649942) 31 mmol/L 23-31 AGAP (test code = 4440193922) 12 2-16 BUN (test code = 7839615829) 24 mg/dL 7-23 H GLUCOSE (test code = 5797174828) 104 mg/dL 70-110 CREATININE (test code = 7123856868) 1.13 mg/dL 0.50-1.04 H TOTAL BILI (test code = 0954968493) 6.9 mg/dL 0.1-1.1 H CALCIUM (test code = 9055849714) 9.5 mg/dL 8.6-10.6 T PROTEIN (test code = 0068538112) 8.6 g/dL 6.3-8.2 H ALBUMIN (test code = 6465796685) 4.6 g/dL 3.5-5.0 ALK PHOS (test code = 7706409487) 243 U/L 34-122 H ALTv (test code = 1742-6) 70 U/L 5-35 H AST(SGOT) (test code = 6035680635) 203 U/L 13-40 H eGFR (test code = 08670-7) 66.0 mL/min/1.73m2 CKD-EPI eGFR (2020). Assuming creatinine has been stable day-to-day for at least three months, the eGFR indicates Category G2 (60 - 89 mL/min/1.73 m2) Lab Interpretation (test code = 35991-6) [facility]normal [facility] CenterProthrombin Time / [id number] 23:23:27* Test Item Value Reference Range Interpretation Comme nts PROTIME PATIENT (test code = 5964-2) 15.2 See_Comment H [Automated Vikia ge] The system which generated this result transmitted reference range: 12.0 - 14.7 Seconds. The reference range was not used to interpret this result as normal/abnormal. INR (test code = 6301-6) 1.2 Normal INR <1.1; Warfarin Therapeutic range 2.0 to 3.0 or 2.5 to 3.5, depending upon the indications. Lab Interpretation (test code = 30996-7) [facility]normal [facility] CenterActivated Partial Thrmplas [id number] 23:19:26* Test Item Value Reference Range Interpretation Comme nts APTT Patient (test code = 3173-2) 29 See_Comment [Automated message] The system which generated this result transmitted reference range: 23 - 38 Seconds. The reference range was not used to interpret this result as normal/abnormal. JASMYN (test code = JASMYN) The [facility] patient population mean normal value for aPTT is 30 seconds. Lab Interpretation (test code = 18926-4) Normal [facility] CenterCbc with Svug3576-87-67 23:17:49* Test Item Value Reference Range Interpretation [...] 35.0 g/dL 31.6-35.1 RDW-SD (test code = 29530-9) 44.6 fL 39.0-49.9 RDW-CV (test code = 788-0) 12.4 % 12.0-15.5 PLT (test code = 777-3) 123 See_Comment L [Automated messa ge] The system which generated this result transmitted reference range: 166 - 358 10*3/?L. The reference range was not used to interpret this result as normal/abnormal. MPV (test code = 46521-2) 11.9 fL 9.5-12.9 IPF % (test code = 4515589742) 11.9 % 1.3-7.7 H Platelet count measured by fluorescence method. NRBC/100 WBC (test code = 8634727529) 0.0 See_Comment [Automated me ssage] The system which generated this result transmitted reference range: 0.0 - 10.0 /100 WBCs. The reference range was not used to interpret this result as normal/abnormal. NRBC x10^3 (test code = 7181927158) See_Comment [Automated messa ge] The system which generated this result transmitted reference range: 10*3/?L. The reference range was not used to interpret this result as normal/abnormal. GRAN MAT (NEUT) % (test code = 770-8) 59.8 % IMM GRAN % (test code = 5175566446) 0.30 % LYMPH % (test code = 736-9) 18.1 % MONO % (test code = 5905-5) 20.2 % EOS % (test code = 713-8) 0.5 % BASO % (test code = 706-2) 1.1 % GRAN MAT x10^3(ANC) (test code = 3730808259) 3.87 10*3/uL 1.88-7.09 IMM GRAN x10^3 (test code = 1768292852) 0.00-0.06 LYMPH x10^3 (test code = 731-0) 1.17 10*3/uL 1.32-3.29 L MONO x10^3 (test code = 742-7) 1.31 10*3/uL 0.33-0.92 H EOS x10^3 (test code = 711-2) 0.03 10*3/uL 0.03-0.39 BASO x10^3 (test code = 704-7) 0.07 10*3/uL 0.01-0.07 Lab Interpretation (test code = 20570-8) [facility]normal [facility] CenterUA RFLX MICR CULT IF JUKRISOCW5998-06-32 04:32:00* Test Item Value Reference Range Interpretation [...] culture: Suprapubic PainSpecimen Description: CLEAN CATCHUR HCG HRHN0013-12-30 04:32:00* Test Item Value Reference Range Interpretation Comme nts UR HCG QUAL (test code = HCGQLU) NEGATIVE 1. Very dilute u rine specimens, as indicated by a lowspecific gravity, may not contain account development representative levels ofhCG. 2. False negative results may occur when the levels of hCGare below the sensitivity level of the test. If is still suspected, a first morningurine specimen should be collected 48 hours later andtested. Indication for culture: Suprapubic PainSpecimen Description: CLEAN CATCH COMPREHENSIVE METABOLIC [id number] 03:55:00* Test Item Value Reference Range Interpretation [...] ALKP) 173 units/L 46-116 H C REACTIVE ZKHYVIN9625-18-08 03:55:00* Test Item Value Reference Range Interpretation Comme nts C REACTIVE PROTEIN (test cod e = CRP) 0.30 mg/dL < 0.3 N - CT MAXIFAC W/LOTEHXBU8568-54-99 03:43:00 [facility] [place] [facility] : 1990 Sex: F Patient Name: DON AMATO Unit No: [id number] EXAMS: CPT CODE: [id number] CT MAXIFAC W/CONTRAST [address] CT MAXILLOFACIAL WITH CONTRAST, 01/12/2023. CLINICAL: Pain. [...] CTDI: 38.85 DLP: 662.82 Trnscrbd D/ (0343) Marley.JS28 [facility] NAME: DON AMATO Radiology Department PHYS: Jacob Gill MD [address] : 1990 AGE: 32 SEX: F [place], [place] [address] LOC: KianaERS PHONE #: [phone] EXAM DATE: 01/12/2023 STATUS: PRE ER FAX #: [phone] RAD NO: Page 1 Signed Report 1 Patient Name: DON AMATO Unit No: [id number] EXAMS: CPT CODE: [id number] CT MAXIFAC W/CONTRAST 89356 (Continued) Orig Print D/T: S: 01/12/2023 (0346) [facility] NAME: DON AMATO Radiology Department PHYS: Jacob Gill MD [address] : 1990 AGE: 32 SEX: F [place], [place] [address] LOC: JENNIFER PHONE #: [phone] EXAM DATE: 01/12/2023 STATUS: PRE ER FAX #: [phone] RAD NO: Page 2 Signed Report 1CBC W/AUTO [id number] 03:29:00* Test Item Value Reference Range Interpretation [...] Comme nts POCT GLU (test code = 1956049074) 155 mg/dL 70-110 H Lab Interpretation (test cod e = 89235-0) Abnormal [facility] GLUCOSE (AUTOMATED)2022-11-11 18:35:24* Test Item Value Reference Range Interpretation Comme nts POCT GLU (test code = 3977818310) 126 mg/dL 70-110 H Lab Interpretation (test cod e = 68883-1) Abnormal [facility] GLUCOSE (AUTOMATED)2022-11-11 17:52:07* Test Item Value Reference Range Interpretation Comme nts POCT GLU (test code = 9659425130) 66 mg/dL 70-110 L Lab Interpretation (test cod e = 08487-7) [facility] 14:12:09* Test Item Value Reference Range Interpretation Comme nts MAGNESIUM (test code = 3950117398) 1.7 mg/dL 1.7-2.4 Slight hemolysis Lab Interpretation (test code = 44018-3) Normal [facility] GLUCOSE (AUTOMATED)2022-11-11 12:23:05* Test Item Value Reference Range Interpretation Comme nts POCT GLU (test code = 7524318910) 59 mg/dL 70-110 L Lab Interpretation (test cod e = 22343-7) Abnormal [facility] WITH [id number] 11:41:02* Test Item Value Reference Range Interpretation [...] 32.6 g/dL 31.6-35.1 RDW-SD (test code = 30517-1) 44.8 fL 39.0-49.9 RDW-CV (test code = 788-0) 11.5 % 12.0-15.5 L PLT (test code = 777-3) 158 See_Comment L [Automated messa ge] The system which generated this result transmitted reference range: 166 - 358 10*3/?L. The reference range was not used to interpret this result as normal/abnormal. MPV (test code = 26050-4) 10.3 fL 9.5-12.9 NRBC/100 WBC (test code = 6287156510) 0.0 See_Comment [Automated me ssage] The system which generated this result transmitted reference range: 0.0 - 10.0 /100 WBCs. The reference range was not used to interpret this result as normal/abnormal. NRBC x10^3 (test code = 7414786726) See_Comment [Automated messa ge] The system which generated this result transmitted reference range: 10*3/?L. The reference range was not used to interpret this result as normal/abnormal. SEG % (test code = 01327-9) 37 % 33-76 BAND % (test code = 46648-9) 1 % 0-1 LYMPH % (test code = 11968-1) 42 % 14-54 MONO % (test code = 57950-4) 19 % 0-4 H EOS % (test code = 46647-7) 1 % 0-3 ANC (test code = 753-4) 1.24 10*3/uL 1.88-7.09 L Lab Interpretation (test code = 49783-9) [facility]normal [facility] CenterLIPASE2023-07-23 10:28:35* Test Item Value Reference Range Interpretation Comme nts LIPASE (test code = 0145606436) 745 U/L 0-220 H Lab Interpretation (test cod e = 11612-4) Abnormal [facility]. METABOLIC PANEL (26104)2022-11-11 10:28:35* Test Item Value Reference Range Interpretation Comme nts NA (test code = 6805071452) 138 mmol/L 135-145 K (test code = 9554473716) 3.0 mmol/L 3.5-5.0 L Slight hemolysis CL (test code = 4594059056) 113 mmol/L 98-108 H CO2 TOTAL (test code = 4438460314) 17 mmol/L 23-31 L AGAP (test code = 4410802094) 8 2-16 BUN (test code = 3056027109) 13 mg/dL 7-23 Slight hemolysis GLUCOSE (test code = 1924494777) 39 mg/dL 70-110 LL CREATININE (test code = 4552547311) 0.38 mg/dL 0.50-1.04 L TOTAL BILI (test code = 4898120723) 1.3 mg/dL 0.1-1.1 H CALCIUM (test code = 9936400984) 7.1 mg/dL 8.6-10.6 L T PROTEIN (test code = 8554573926) 5.1 g/dL 6.3-8.2 L ALBUMIN (test code = 8360207324) 2.5 g/dL 3.5-5.0 L ALK PHOS (test code = 9362167406) 80 U/L 34-122 Slight hemolysis ALTv (test code = 1742-6) 23 U/L 5-35 AST(SGOT) (test code = 3912085731) 56 U/L 13-40 H Slight hemolysis eGFR (test code = 1546035128) 196.3 mL/min/1.73m2 JASMYN (test code = JASMYN) [...] imaging tests). Lab Interpretation (test code = 39180-0) [facility]normal [facility] CenterFOLATE2023-07-23 08:25:59* Test Item Value Reference Range Interpretation Comme nts FOLATE SER (test code = 6987352640) 17.6 ng/mL 3.0-20.0 Biotin has been reported to cause a positive bias, interpret results relative to patient's use of biotin. Lab Interpretation (test code = 78031-8) Normal [facility] CenterETHANOL2023-07-22 22:46:37 ALCOHOL<10mg/dL11/10/2022 5:46 PM CDTUTMB LABORATORY SERVICESToxic Greater than or equal to 80 mg/dL. NOTE: Whole blood values are approximately 10% to 15% lower than serum and plasma.[facility] CenterCOMP. METABOLIC PANEL (21024)2022-11-10 22:45:51* Test Item Value Reference Range Interpretation Comme nts NA (test code = 7285100728) 145 mmol/L 135-145 K (test code = 4328783793) 3.6 mmol/L 3.5-5.0 CL (test code = 5913512654) 104 mmol/L 98-108 CO2 TOTAL (test code = 0216387888) 29 mmol/L 23-31 AGAP (test code = 2525722668) 12 2-16 BUN (test code = 8479594410) 20 mg/dL 7-23 GLUCOSE (test code = 1941863216) 75 mg/dL 70-110 CREATININE (test code = 6166601751) 0.62 mg/dL 0.50-1.04 TOTAL BILI (test code = 8448815958) 1.6 mg/dL 0.1-1.1 H CALCIUM (test code = 5721140206) 9.8 mg/dL 8.6-10.6 T PROTEIN (test code = 9263746023) 7.5 g/dL 6.3-8.2 ALBUMIN (test code = 6400167248) 4.4 g/dL 3.5-5.0 ALK PHOS (test code = 2952973493) 142 U/L 34-122 H ALTv (test code = 1742-6) 33 U/L 5-35 AST(SGOT) (test code = 0415941975) 65 U/L 13-40 H eGFR (test code = 0457215116) 111.6 mL/min/1.73m2 JASMYN (test code = JASMYN) [...] imaging tests). Lab Interpretation (test code = 05664-6) [facility]normal [facility] CenterLIPASE2023-07-22 22:45:51* Test Item Value Reference Range Interpretation Comme nts LIPASE (test code = 4613118635) 1920 U/L 0-220 H Lab Interpretation (test cod e = 74913-9) Abnormal [facility] CenterPREGNANCY TEST, [id number] 22:44:22* Test Item Value Reference Range Interpretation Comme nts PREG SERUM (test code = 7293918606) Negative JASMYN (test code = JASMYN) Less than 10 IU/L. ?If low titer or ectopic is suspected, resubmit specimen in 48-72 hours. [facility] CenterCBC WITH [id number] 22:37:30* Test Item Value Reference Range Interpretation Comme nts WBC (test code = 6690-2) 5.72 See_Comment [Automated Vikia Heekya] The system which generated this result transmitted reference range: 4.30 - 11.10 10*3/?L. The reference range was not used to interpret this result as normal/abnormal. RBC (test code = 789-8) 3.93 See_Comment [Automated Vikia Heekya] The system which generated this result transmitted [...] 32.6 g/dL 31.6-35.1 RDW-SD (test code = 96685-7) 44.8 fL 39.0-49.9 RDW-CV (test code = 788-0) 11.8 % 12.0-15.5 L PLT (test code = 777-3) 255 See_Comment [Automated messa ge] The system which generated this result transmitted reference range: 166 - 358 10*3/?L. The reference range was not used to interpret this result as normal/abnormal. MPV (test code = 36125-9) 9.9 fL 9.5-12.9 NRBC/100 WBC (test code = 2146005827) 0.0 See_Comment [Automated me ssage] The system which generated this result transmitted reference range: 0.0 - 10.0 /100 WBCs. The reference range was not used to interpret this result as normal/abnormal. NRBC x10^3 (test code = 6307772354) See_Comment [Automated messa ge] The system which generated this result transmitted reference range: 10*3/?L. The reference range was not used to interpret this result as normal/abnormal. GRAN MAT (NEUT) % (test code = 770-8) 63.5 % IMM GRAN % (test code = 6722030883) 0.30 % LYMPH % (test code = 736-9) 18.7 % MONO % (test code = 5905-5) 16.3 % EOS % (test code = 713-8) 0.2 % BASO % (test code = 706-2) 1.0 % GRAN MAT x10^3(ANC) (test code = 0344322515) 3.63 10*3/uL 1.88-7.09 IMM GRAN x10^3 (test code = 6701131581) 0.00-0.06 LYMPH x10^3 (test code = 731-0) 1.07 10*3/uL 1.32-3.29 L MONO x10^3 (test code = 742-7) 0.93 10*3/uL 0.33-0.92 H EOS x10^3 (test code = 711-2) 0.03-0.39 L BASO x10^3 (test code = 704-7) 0.06 10*3/uL 0.01-0.07 Lab Interpretation (test code = 11717-6) [facility]normal [facility] CenterETHANOL2023-07-18 08:56:59* Test Item Value Reference Range Interpretation Comme nts ALCOHOL (test code = 8085474296) 247 mg/dL JASMYN (test code = JASMYN) <10 Xezykwqn56-468 Toxic>100 Depression of FINISHED CARPET INSPECTOR>400 Fatalities Reported [facility] CenterLIPASE2023-07-18 07:38:50* Test Item Value Reference Range Interpretation Comme nts LIPASE (test code = 0335696586) 2559 U/L 0-220 H Lab Interpretation (test cod e = 50313-2) [facility]normal [facility] CenterCOMP. METABOLIC PANEL (02887)2022-11-06 07:21:05* Test Item Value Reference Range Interpretation Comme nts NA (test code = 2508681893) 137 mmol/L 135-145 K (test code = 1462070119) 3.4 mmol/L 3.5-5.0 L CL (test code = 0102187280) 96 mmol/L 98-108 L CO2 TOTAL (test code = 1059358529) 33 mmol/L 23-31 H AGAP (test code = 7323217176) 8 2-16 BUN (test code = 8118376606) 5 mg/dL 7-23 L GLUCOSE (test code = 6751149860) 97 mg/dL 70-110 CREATININE (test code = 5779890186) 0.50 mg/dL 0.50-1.04 TOTAL BILI (test code = 9269562833) 1.8 mg/dL 0.1-1.1 H CALCIUM (test code = 8583636779) 8.6 mg/dL 8.6-10.6 T PROTEIN (test code = 3076701789) 7.9 g/dL 6.3-8.2 ALBUMIN (test code = 9648899300) 4.2 g/dL 3.5-5.0 ALK PHOS (test code = 1257611213) 204 U/L 34-122 H ALTv (test code = 1742-6) 52 U/L 5-35 H AST(SGOT) (test code = 2889524774) 147 U/L 13-40 H eGFR (test code = 4970101642) 143.0 mL/min/1.73m2 JASMYN (test code = JASMYN) [...] imaging tests). Lab Interpretation (test code = 79798-9) Abnormal [facility] WITH [id number] 07:08:46* Test Item Value Reference Range Interpretation Comme nts WBC (test code = 6690-2) 6.07 See_Comment [Automated WeLike] The system which generated this result transmitted reference range: 4.30 - 11.10 10*3/?L. The reference range was not used to interpret this result as normal/abnormal. RBC (test code = 789-8) 4.32 See_Comment [Automated WeLike] The system which generated this result transmitted [...] 35.0 g/dL 31.6-35.1 RDW-SD (test code = 52841-6) 41.7 fL 39.0-49.9 RDW-CV (test code = 788-0) 11.3 % 12.0-15.5 L PLT (test code = 777-3) 206 See_Comment [Automated Vikia ge] The system which generated this result transmitted reference range: 166 - 358 10*3/?L. The reference range was not used to interpret this result as normal/abnormal. MPV (test code = 27523-8) 10.1 fL 9.5-12.9 NRBC/100 WBC (test code = 2374311023) 0.0 See_Comment [Automated Jimmy Fairly ssage] The system which generated this result transmitted reference range: 0.0 - 10.0 /100 WBCs. The reference range was not used to interpret this result as normal/abnormal. NRBC x10^3 (test code = 3604730387) See_Comment [Automated Vikia ge] The system which generated this result transmitted reference range: 10*3/?L. The reference range was not used to interpret this result as normal/abnormal. GRAN MAT (NEUT) % (test code = 770-8) 68.0 % IMM GRAN % (test code = 7737639063) 0.30 % LYMPH % (test code = 736-9) 19.1 % MONO % (test code = 5905-5) 11.0 % EOS % (test code = 713-8) 0.3 % BASO % (test code = 706-2) 1.3 % GRAN MAT x10^3(ANC) (test code = 5205823928) 4.12 10*3/uL 1.88-7.09 IMM GRAN x10^3 (test code = 4262630193) 0.00-0.06 LYMPH x10^3 (test code = 731-0) 1.16 10*3/uL 1.32-3.29 L MONO x10^3 (test code = 742-7) 0.67 10*3/uL 0.33-0.92 EOS x10^3 (test code = 711-2) 0.03-0.39 L BASO x10^3 (test code = 704-7) 0.08 10*3/uL 0.01-0.07 H Lab Interpretation (test code = 56692-5) Abnormal [facility] EUVC0266-38-57 06:18:00* Test Item Value Reference Range Interpretation Comme nts POCT PREG (test code = 1605) Negative On board controls acceptable with C Line (test code = 3574) Yes Lab Interpretation (test cod e = 75660-8) Normal [facility] EFOG1710-02-52 02:47:00* Test Item Value Reference Range Interpretation Comme nts POCT PREG (test code = 1605) negative Lab Interpretation (test cod e = 50806-0) Normal [facility] WITH [id number] 01:22:18* Test Item Value Reference Range Interpretation [...] 33.2 g/dL 31.6-35.1 RDW-SD (test code = 54783-2) 44.6 fL 39.0-49.9 RDW-CV (test code = 788-0) 12.2 % 12.0-15.5 PLT (test code = 777-3) See_Comment [Automated Vikia ge] The system which generated this result transmitted reference range: 166 - 358 10*3/?L. The reference range was not used to interpret this result as normal/abnormal. MPV (test code = 17032-1) 9.4 fL 9.5-12.9 L NRBC/100 WBC (test code = 0358459343) See_Comment [Automated Jimmy Fairly ssage] The system which generated this result transmitted reference range: 0.0 - 10.0 /100 WBCs. The reference range was not used to interpret this result as normal/abnormal. NRBC x10^3 (test code = 7395791705) See_Comment [Automated Vikia ge] The system which generated this result transmitted reference range: 10*3/?L. The reference range was not used to interpret this result as normal/abnormal. GRAN MAT (NEUT) % (test code = 770-8) 45.9 % IMM GRAN % (test code = 5787913347) 0.50 % LYMPH % (test code = 736-9) 40.2 % MONO % (test code = 5905-5) 10.9 % EOS % (test code = 713-8) 1.4 % BASO % (test code = 706-2) 1.1 % GRAN MAT x10^3(ANC) (test code = 8252711651) 1.69 10*3/uL 1.88-7.09 L IMM GRAN x10^3 (test code = 1079083639) 0.00-0.06 LYMPH x10^3 (test code = 731-0) 1.48 10*3/uL 1.32-3.29 MONO x10^3 (test code = 742-7) 0.40 10*3/uL 0.33-0.92 EOS x10^3 (test code = 711-2) 0.05 10*3/uL 0.03-0.39 BASO x10^3 (test code = 704-7) 0.04 10*3/uL 0.01-0.07 Lab Interpretation (test code = 91581-8) Abnormal [facility] METABOLIC PANEL (NA, K, CL, CO2, GLUCOSE, BUN, CREATININE, CA)2022-04-13 00:58:33* Test Item Value Reference Range Interpretation Comme nts NA (test code = 7804015639) 140 mmol/L 135-145 K (test code = 3011485979) 3.7 mmol/L 3.5-5.0 CL (test code = 0881514207) 98 mmol/L 98-108 CO2 TOTAL (test code = 8472990410) 34 mmol/L 23-31 H AGAP (test code = 5884281111) 2-16 BUN (test code = 8217382663) 11 mg/dL 7-23 GLUCOSE (test code = 3637253503) 79 mg/dL 70-110 CREATININE (test code = 4333041947) 0.62 mg/dL 0.50-1.04 CALCIUM (test code = 3032364087) 8.1 mg/dL 8.6-10.6 L eGFR (test code = 4265783753) mL/min/1.73m2 JASMYN (test code = JASMYN) Association [...] imaging tests). Lab Interpretation (test code = 19466-2) [facility]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 and alcohol dependence with WD with complication. Patient agrees to admission, discussed plan of care with patient and family. Patient is awake, A&Ox4, RR even and unlabored on RA. Color appropriate for race. PIV intact x 1. No adverse reaction to medications administered while in ED. Belongings with patient to unit. [facility] Yecenia Duong [place] 909754-05-30 18:52:36 Nurse Report Report given to MS RN. Chief complaint, assessment findings, infusion verify and orders reviewed. [address]05-30 18:15:16 Pt tolerating crackers. In bed, tremors have lessened in intensity. NAD, call light within reach. [address]05-30 16:09:03 Pt successfully ambulated to restroom with standby from ED RN. Pt now in bed. Remains tachycardic and is shivering. Provider aware. [address]05-30 15:11:48 Pt noted to be vomiting by provider. 4mg Zofran IVP given. [address]05-30 14:32:54 Notified lab of stat add on. [place] 303024-05-30 13:55:00 Ice chips given, pt tolerating without any episodes of vomiting. [place] [address]-05-30 13:48:25 Pt sleeping in bed, call light within reach. RR even and unlabored. NAD noted. [place] 303024-05-30 13:01:34 Nurse Report Report given to LUIS EDUARDO Rhodes. Chief complaint, assessment findings, infusion verify and orders reviewed. Plan of care discussed at bedside with patient and both nurses. Patient/family members verbalized understanding. Radha Ash RN [facility] Radha Ash [facility] HospitalZcgnzx7558-87-63 11:50:04 Patient has been ill for about 10 days. Was diagnosed with covid and hasn't improved. Has shortness of breath, weakness, and diarrhea and vomiting. Also reports she has not drank alcohol in 5 days. Normally drinks several shots of tequila daily. T Lacey Nguyễn [facility] HospitalSqqezr1682-67-72 13:27:57 Pt given printed and verbal discharge [...] gait, in no apparent distress, Marleen Lopez [facility] HospitalRksasd7889-30-78 11:56:06 Patient ambulated with a steady gait. Patient's HR was 90 and oxygen saturation was 95% after walking. Patient passed walk test. T [facility]Slugns8986-29-18 11:24:09 Patient to ED for weakness. Reports she was diagnosed with covid 4 days ago and has not been drinking like she is supposed to and doesn't feel well. T Lacey Nguyễn [facility] HospitalDmyxfi9608-57-98 20:01:46 Pt self removed IV, IVF, and [...] in no apparent distress, Alma Rosa Nick [facility] HospitalKpctay5806-05-72 19:06:29 Pt care assumed. Pt in radiology at this time. 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 I have fever, cough, body aches. I can't break the fever. It's been going on for 4 days" Meagan Greenberg RNOhioHealth Grant Medical CenterLfyeii6760-56-00 15:23:09 TRANSITIONAL CARE MANAGEMENT ASSESSMENT 05/01/2023 Don Amato [id number] Don Amato is a 33 year old /White female was admitted on 04/24/23 to [facility] ICU. She was discharged on 04/27/23 with [...] 3:22 PM Thelma Slaughter LVN Comments: TCM Yyn-fdbv-yy-face outreach documentation: Discharge Assessment Chart Assessed: 05/01/23 [...] with the names or descriptions of any upuy-enu-hjjsckf or supplements you are currently taking?: Yes [...] concerns at this time?: Yes Future Appointments: NT LEAD TEACHER Thelma Slaughter [facility]2024-01-10 10:39:46 Patient Permethrin cream changed with instructions, pt in office and was informed of change. Leila Adamson RN 05/01/2023 10:40 AM NT LEAD TEACHER Leila Adamson [facility] HospitalCujedb9003-91-63 09:12:55 Pt states pharmacy will not fill prescription for Permethrin 5% Topical Cream because no instructions on how to use NT LEAD TEACHER Valeria Stevens MAOhioHealth Grant Medical CenterSdblcb2012-74-85 08:57:35 Need directions for Permethrin 5% Topical Cream TA [facility]onaCarolin[facility] MountainClidru3884-92-00 14:00:00 Addended by: NATACHA AGUIRRE on: 05/01/2023 10:19 AM Modules accepted: Orders [facility]2024-01-09 09:37:33 TRANSITIONAL CARE MANAGEMENT ASSESSMENT 04/30/2023 Don Amato [id number] Don Amato is a 33 year old /White female was admitted on 04/24/23 to [facility] ICU. She was discharged on 04/27/23 with discharge disposition of HR- Routine Discharge. Admitting Physician: William Castorena Discharge Diagnosis: Alcohol withdrawal syndrome, with delirium [F10.931] No contact. No linked episodes TCM Qoy-srof-ka-face outreach documentation: Future Appointments: NT LEAD TEACHER [facility] CenterRauvkb6174-09-32 09:30:00 Discharge instructions reviewed with pt. Discussed meds and follow up appts. No questions or concerns voiced at this time. TA Woods RNOhioHealth Grant Medical CenterWurhph6751-84-14 00:11:44 Problem: Discharge Planning Goal: Adequate for [...] sensation Outcome: Progressing as expected TA Zelaya [facility] HospitalFdyikb9098-00-63 18:23:14 Problem: Discharge Planning Goal: Adequate for [...] in pain sensation Outcome: Progressing as expected NT LEAD TEACHER Salena Nguyễn [facility] - Erwoex3695-01-44 09:06:50 Problem: Discharge Planning Goal: Adequate for [...] sensation Outcome: Progressing as expected TA Slaughter [facility] - Zmjdoc8068-97-91 00:20:54 Problem: Discharge Planning Goal: Adequate for [...] in pain sensation Outcome: Progressing as expected [facility] Cyndi Ortega [facility] HospitalKjolzc6256-43-48 22:06:00 Patient admitted to [facility] for diagnosis of alcohol withdrawal syndrome [...] Belongings with patient to unit. TA Casillas [place] 909754-01-03 22:05:00 Nurse Report Report given to Martin HOFF. Chief complaint, assessment findings, infusion verify and orders reviewed. Yecenia Casillas RN [place] 192574-01-03 21:51:01 Updated patient on inpatient room assignment. [...] others just that he's "a bad ghost." [facility] Sara Workman [place] 909754-01-03 21:36:56 Pt states she does not give her mother Shelbie Amato permission to be contacted or given any information. [place] 192574-01-03 19:41:12 Pt with severe hand tremors. Pt states she hasn't drank in 14 days. Finalized her divorce today. [facility]2024-01-03 15:17:32 CC: patient presents to the ER [...] amb without assistance. Appears in no distress. [facility] Yumiko Hua [facility] HospitalJvnfyp2307-25-91 15:02:00 AdmissionCare Guideline: Delirium, Inpatient Based on the indications selected for the patient, the bed status of Admit to Inpatient was determined to be MET The following indications were selected as present at the time of evaluation of the patient: - Delirium due to alcohol or sedative withdrawal AdmissionCare documentation entered by: Jose Quintanilla [facility], 27th edition, Copyright ? 2022 [facility] HospitalProximetry [facility] All Rights Reserved. [id number]:49:18-06:00 [facility]2023-09-23 02:36:00 [facility] EMERGENCY PROVIDER REPORT REPORT#:[id number] REPORT STATUS: Signed DATE:01/12/23 TIME: 235 PATIENT: DON AMATO UNIT #: [id number] ROOM/BED: AGE: 32 SEX: F PCP PHYS: Chris Shepard MD SERVICE AUTHOR: Jacob Jacobs MD * ALL edits or amendments must be made on the electronic/computer document * HPI-General Illness General Initial Greet Date/Time 01/12/23 022 Presentation Chief Complaint facial redness Free Text [...] or phobias. ENDOCRINE: Normal; Negative for diabetes, thyroid.HEMATOLOGIC/LYMPHATIC: Normal; Negative for anemia, swollen glands, or [...] 01/12/23251: [Embedded Image Not Available] Laboratory Tests: 01/12 0252 0252 Chemistry Sodium (135 - 145 [...] (Auto) (14.5 - 29.7 %) 41.0 H Wright % (Auto) (3.6 - 10.2 %) 10.5 H Eos % (Auto) (0.0 - 3.0 %) 0.4 Baso % (Auto) (0.1 - 0.9 %) 1.0 H Neut # (Auto) (K/mm3) 2.4 Lymph # (Auto) (K/mm3) 2.1 Wright # (Auto) (K/mm3) 0.5 Eos # (Auto) (K/mm3) 0.02 Baso # (Auto) (K/mm3) 0.1 Urines Urine Color (YELLOW) YELLOW Urine Appearance (CLEAR) Slightly-Cloudy Urine pH (5 - 9) 7.0 Ur Specific [place] (1.001 - 1.035) >1.035 H Urine Protein [...] Report Impression - Status: SIGNED Entered: 01/12/2023 0346 IMPRESSION: Right facial and periorbital soft tissue [...] 01/12 0235 DC 01/12 Tromethamine IV 01/12 023 0338 Electrolytic, Caloric, And Nilsa Sig/Germain Start [...] Restrictions apply through 01/15/23 at 0554 RPT #:[id number] END OF REPORTIHJRY3754-91-89 09:15:35 TRANSITIONAL CARE MANAGEMENT ASSESSMENT 11/14/2022 Don Amato [id number] Don Amato is a 32 year old /White female was admitted on 11/10/[address] She was discharged on 11/13/22 with discharge disposition of HR- Routine Discharge. Admitting Physician: Mitch Robertson Discharge Diagnosis: Alcohol abuse [F10.10] Pt. Verbalized understanding discharge instructions. Linked Episodes Type: Episode: Status: Noted: Resolved: Last update: Updated by: TRANSITION OF CARE tcm Active 11/14/2022 11/14/2022 9:13 AM Thelma Slaughter LVN Comments: TCM Qgl-jqjk-sv-face outreach documentation: Discharge Assessment Chart Assessed: 11/14/22 [...] with the names or descriptions of any noax-sjh-apvsoui or supplements you are currently taking?: No [...] this time?: No Future Appointments: Thelma Slaughter [facility]2023-07-25 17:58:18 Problem: Falls, Risk of Goal: Absence of [...] RN Outcome: Progressing as expected Nicole Duarte [facility] HospitalAajgcd0787-31-79 11:23:03 Problem: Discharge Planning Goal: Adequate for discharge [...] sleep Outcome: Progressing as expected [facility]2023-07-25 00:19:24 Problem: Discharge Planning Goal: Adequate for discharge [...] sleep Outcome: Progressing as expected [facility]2023-07-24 07:38:05 Problem: Discharge Planning Goal: Adequate for discharge [...] Able to sleep Outcome: Progressing as expected [facility] Cornelia De Los Santos [facility] HospitalCdegkk2817-59-31 23:18:33 Problem: Discharge Planning Goal: Adequate for discharge [...] Able to sleep Outcome: Progressing as expected [place] 466773-07-22 22:12:45 Problem: Discharge Planning Goal: Adequate for discharge [...] breakdown Outcome: Progressing as expected Patty Burgos [facility] HospitalDxxwhk0491-93-05 20:08:49 Pt stable for transfer to [place] [address]. Pt to floor with ED RNMarvin and PCT. Pt on stretcher. Zoll defibrillator and ambu bag present on bed, pt on tele monitoring monitored by RN. Jeanna Wells [facility] HospitalHldzxv0705-78-77 19:34:11 Per MICU patient can go to [facility], primary RN notified. [place] 466773-07-22 19:25:52 This RN contacted [facility] regarding bed assignment, [facility] reports awaiting ICU bed availability. [place] 466773-07-22 19:13:36 Pt resting quietly. NAD. ABC's intact. Skin w/d. Remains on monitor, SpO2, NIBP. Bed in low position, rails up x 2. Jean Gerard [place] 909753-07-22 18:21:43 ICU MD at bedside Karen Wilkerson [place] 909753-07-22 18:13:37 Pt still having halllucinations, pulling at monitor wires and IV line, attempting to get out of bed. Trying to eat imaginary foods. Dr Judge made aware T [place] 466773-07-22 18:08:00 Pt placed on full nuclear monitoring technician with continuous pulse ox monitoring and serial blood pressures. Bed in lowest and locked position, side rails up. Spouse at bedside. T [place] 466773-07-22 17:50:00 Pt began experiencing extreme increase in hallucinations. Talking to herself. Giving report to nonexistent MD at bedside. Talking about a sick dog. Talking to her children who are not present. Dr Judge made aware T [place] 466773-07-22 16:47:43 Don Amato is a 32 year old female to ED for withdrawal symptoms from ETOH. Pt reports recent hx of pancreatitis. Reports current delusions and abd pain. Speaking clearly. Last ETOH was today. Pt reports feeling shaking and tremors. 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 Pt was admitted to [facility] for pancreatitis on 11/06/22 and was discharged [...] Left 11/13/2021 Surgeon: Cathie Ross MD; Location: [facility] Review of Systems: Review of Systems Constitutional: [...] Lab Results: Lab Results COMP. METABOLIC PANEL (17573) - Abnormal Result Value Ref Range NA [...] Encounter Procedures Critical Care COMP. 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 Ptwas admitted on 11/06/22 and discharged on 11/07/22 for acute pancreatitis at [facility]. Pt states that was the last time she had alcohol. PE indicates tachycardia, generalized tremors, active auditory and visual hallucinations CIWA-Ar for Alcohol Withdrawal score was 27; Tremor (7), Agitation (6), Auditory hallucination (6),Visual hallucination (6), Orientation/Clouding of Sensorium (2) Pt [...] the past 24 hour(s)) COMP. METABOLIC PANEL (26876) Collection Time: 11/10/22 5:21 PM Result Value [...] to icu for ETOH withdrawal and delerium Trem [facility] 25 Addendum I personally examined and participated in decision-making for this patient with the resident, Dr Hightower. Please see the resident note for further details. Lab and imaging studies reviewed Findings discussed with patient Diagnosis 1. Alcohol withdrawal, DT Plan 1. ICU for BENZOs and monitoring [facility]2023-07-19 01:38:17 Problem: Pain Goal: Control of pain at or below patient's documented comfort goal Outcome: Progressing as expected Problem: Nausea/Vomiting Goal: Absence of nausea/vomiting Outcome: Progressing as expected Problem: Infection Risk Goal: Absence of infection Outcome: Progressing as expected Problem: Bowel Function - Altered Goal: Return to baseline elimination pattern Outcome: Progressing as expected [facility]2023-07-18 14:51:28 Problem: Pain Goal: Control of pain at or below patient's documented comfort goal Outcome: Progressing as expected Problem: Nausea/Vomiting Goal: Absence of nausea/vomiting Outcome: Progressing as expected Problem: Infection Risk Goal: Absence of infection Outcome: Progressing as expected Problem: Bowel Function - Altered Goal: Return to baseline elimination pattern Outcome: Progressing as expected T Leida Dumont [facility] HospitalSztyow8920-72-62 06:37:36 Problem: Pain Goal: Control of pain at or below patient's documented comfort goal Outcome: Progressing as expected Problem: Nausea/Vomiting Goal: Absence of nausea/vomiting Outcome: Progressing as expected Problem: Infection Risk Goal: Absence of infection Outcome: Progressing as expected Problem: Bowel Function - Altered Goal: Return to baseline elimination pattern Outcome: Progressing as expected [facility]2023-07-18 06:22:17 Patient admitted to med/surg for diagnosis of [...] 0.9%NS infusing at 200 mL/hr during transport [facility] Tea Wren [facility] HospitalTvlluz1098-61-15 01:05:02 Pt to ed via pov. Alert and [...] of L side of abdomen. 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 [facility] - Zodpoa8723-30-86 01:00:00 Images from the original note were not included. [facility] Emergency Department Note Patient Name: Don Amato Date of : 1990 32 year old female Treatment Room: Room/bed info not found Primary Care Physician: Leander Shepard Patient Escorted by: Self [9] Mode of Arrival: Personal means [1] EMS Treatment Prior to ED Arrival: Chief Complaint: Chief Complaint Patient presents with Flank Pain L side History of Present Illness: Don Amato is a 32 year old female who presents to the ED with complaint of LLQ pain thatbegan around 3 pm today .She reports history [...] Left 11/13/2021 Surgeon: Cathie Ross MD; Location: [facility] Review of Systems: Review of Systems Constitutional: [...] Pulse 11/06/22106 93 Resp 11/06/22106 20 Temp 11/06/228 36.5 ?C (97.7 ?F) Temp source 11/06/22106 [...] with C Line Yes COMP. METABOLIC PANEL (53484) LIPASE Orders and Treatments: Orders Placed This Encounter Procedures CT ABDOMEN PELVIS W CONTRAST URINALYSIS POCT TEST CBC WITH DIFF COMP. METABOLIC PANEL (56746) LIPASE Orders Placed This Encounter Medications DISCONTD: lisdexamfetamine (VYVANSE) 60 mg capsule ketorolac (TORADOL) injection 30 mg ondansetron (ZOFRAN (PF)) injection 4 mg FENTanyl PF (SUBLIMAZE (PF)) injection 50 mcg NaCl 0.9% (NS) bolus infusion 1,000 mL iopamidol (ISOVUE 370-500 mL) injection 70 mL First Provider Eval: ED Events Date/Time Event User Comments 11/06/22 0110 Medical Screening Begins ERIKA SINGLETARY -- 11/06/22 0110 First Provider Evaluation ERIKA SINGLETARY -- ED COURSE ED Course as of 11/06/22 0305 Tue Nov 06, 2022 [address] Lopez pending labs and CT [PD] ED Course User Index [PD] Zoë Singletary NP Diagnosis/Impression as of 11/06/22 0305 Flank pain Acute pancreatitis, unspecified complication status, unspecified pancreatitis type Procedures: Procedures MDM: Medical Decision Making Don Amato is a 32 year old female who presents to the ED with complaint of LLQ pain thatbegan around 3 pm today .She reports history of constipation for the last 3 years . Has been using OTC laxatives and today used an enema, will large results . Pain began following BM . Endorses nausea without vomiting. Plan: CT ABDOMEN PELVIS W CONTRAST URINALYSIS POCT TEST CBC WITH DIFF COMP. METABOLIC PANEL (40007) LIPASE Amount and/or Complexity of Data Reviewed [...] patient on 11/06/2022 and agree with Raghav's LILIANE note with the following addition(s): Left sided abdominal pain likely related to pancreatitis- tail of pancreas with adjacent colitis. Will check US , r/out Cholecystitis and Admit to hospital for IVF's and Inpatient Surgical vs. GI Consultation. Pancreatitis likely alcohol related. I actively participated in the decision-making process. Please see the Midlevel Provider's note for additional details. [facility] Emergency [facility]2022-12-16 19:17:00 [facility] ([facility]) EMERGENCY PROVIDER REPORT REPORT#:[id number] REPORT STATUS: Signed DATE:04/06/22 TIME:1916 PATIENT: DON AMATO UNIT #: [id number] ROOM/BED: : 90 AGE: 32 SEX: F PCP PHYS: Arnol Gonsalez MD SERVICE AUTHOR: Shaan Ross PATIENT ACCESS ASSOCIATE * ALL edits or amendments must be [...] % (Auto) (20.5 - 51.1 %) 40.9 Wright % (Auto) (1.7 - 9.3 %) 9.4 H Eos % (Auto) (0.0 - 6.0 %) 1.3 Baso % (Auto) (0.0 - 2.0 %) 1.3 Neut # (Auto) (1.8 - 7.6 K/mm3) 1.5 L Lymph # (Auto) (0.6 - 3.2 K/mm3) 1.3 Wright # (Auto) (0.3 - 1.1 K/mm3) 0.3 [...] abscess or drainable collection. Impression By: Elise - Cristina Arroyo M.D. Lab Imaging Statement Laboratory radiographic [...] department or a call to 911. Jian Salavdor 04/07/22 0602: Patient Discharge Departure Discharge/Care Plan Referrals Provider Referral: Britton Plaza [facility] Address: [address] [place] [address] [address] [place] [address] Supervising Physician Note MidLv Saw Pt Alone I have reviewed the PA/PATIENT ACCESS ASSOCIATE's note and plan of care. I was available for consultation as needed at all times during the patient's visit in the emergency department. I agree with the clinical impression, plan and disposition. at 2202 at 0602 RPT #: [id number] END OF REPORTANMED HEALTH WOMEN & CHILDREN'S HOSPITALPM
[2024-06-02 20:00] LABS: Absolute Eosinophils 0.1 K/uL (0-0.5); Absolute Lymphocytes (CBC) 2.2 K/uL (0.7-4.9); Absolute Monocytes 0.3 K/uL (0.1-1.3); Absolute Neutrophil 2.7 K/uL (1.8-8.0); Basophils % 0.9 % (0-1.3); Eosinophils % 2.4 % (0-4.4); Hematocrit 35.6 % (36.0-45.0); Hemoglobin 12.1 g/dL (12.0-15.0); Lymphocytes % 40.9 % (15.3-44.8); MCH 32.4 pg (27.0-35.0); MCV 95.3 fL (80-100); MPV 6.8 fL (7.6-11.3); Monocytes % 5.2 % (3.3-12.3); Neutrophils % 50.6 % (41.7-73.7); Nucleated Red Blood Cells % 0.1 % (0-0); Platelets 152 thou/uL (152-406); RBC Red Blood Cell Count 3.74 M/uL (3.86-4.86); Red Cell Distribution Width 15.2 % (12.1-15.2)
[2024-06-02 20:11] LABS: PT Prothrombin Time 11.9 SECONDS (9.4-12.5); Protime INR 1.13
[2024-06-02 20:12] LABS: Anion Gap 6.8 mEq/L (5.0-15.0); Potassium 3.8 mEq/L (3.5-5.1)
--- NOTE | 2024-06-02 21:37 | RAD REPORT ---
EXAMINATION: CT MAXILLOFACIAL WITHOUT CONTRAST CLINICAL INDICATION: [facility] MAIN facial trauma Bed Name: 20 TECHNIQUE: Axial images were obtained through the facial bones and orbits without intravenous contras t. Sagittal and coronal reconstructions were created from the data. One or more of the following dose reduction techniques were used: Automated exposure control, adjustment of the mA and/or kV accor ding to patient size, and/or iterative reconstruction. Unless otherwise specified, incidental findings do not require dedicated imaging follow-up. COMPARISON: 04/15/2024 FINDINGS: SOFT TISSUE: Swelling and small hematoma along the right premalar soft tissues. BONES: No evidence of fracture, dislocation, or aggressive osseous lesions. No lesion of the visuali zed skull base or calvarium. ORBITS: The globes are intact. No intraorbital hemorrhage or mass. SINUSES: The paranasal sinuses and tympanomastoid cavities are predominantly clear. Left maxillary second premolar and first molar extraction cavities prior exam. Other periapical lucen cies with small collections along the medial roots of the left maxillary second and third molars are stable. IMPRESSION: Small hematoma and swelling along the right premalar soft tissues. No acute facial fractures. Dental and periodontal disease as above.
--- NOTE | 2024-06-02 21:41 | RAD REPORT ---
EXAM: CT brain without contrast HISTORY: fall, head injury COMPARISON: 04/15/2024 TECHNIQUE: Multiple contiguous axial images were obtained and a CT of the brain without contrast. Sag ittal and coronal reformats were performed. FINDINGS: No evidence of hydrocephalus, intracranial hemorrhage, or extra-axial fluid collection. The brain is normal in morphology. The calvarium is intact. The visualized paranasal sinuses and mastoid air cells are essentially clear . IMPRESSION: No evidence of acute intracranial abnormality. EXAM: CT of the cervical spine without contrast HISTORY: fall, head injury COMPARISON: None TECHNIQUE: Multiple contiguous axial images were obtained in a CT of the cervical spine without contr ast. Sagittal and coronal reformats were performed. FINDINGS: The vertebral bodies demonstrate normal height and alignment. No evidence of acute fracture or subluxation.. No degenerative changes are present. No prevertebral soft tissue swelling is seen. The posterior facets are well aligned. Normal alignment of the skull base with the cervical spine is seen. The lung apices are unremarkable. IMPRESSION: No evidence of acute osseous abnormality of the cervical spine.
--- NOTE | 2024-06-02 21:47 | EDPHYS ---
Physician Documentation [facility] Name: Ethel Amato Age: 34 yrs Sex: Female : 1990 Arrival Date: 06/02/2024 Time: 19:33 Bed 20 Private MD: ED Physician Aniceto Ordonez HPI: 06/02 19:37 This 34 yrs old Female presents to ER via Unassigned with complaints of face injury. rn 19:37 The patient or guardian reports injury, pain. The complaints affect the right cheek and rn chin. Onset: The symptoms/episode began/occurred just prior to arrival. Severity of symptoms: At their worst the symptoms were mild, in the emergency department the symptoms are unchanged. 19:38 The patient has experienced similar episodes in the past. 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 States was getting up and getting ready to go to work when fell and struck chin on floor. No LOC. Reports swelling and pain to jaw. Denies any other injury. No back pain. No rib pain. No abdominal pain. No extremity injury.. 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 - Infectious Disease History:: Denies. - Family history:: not pertinent. - Hospitalizations: : No recent hospitalization is reported. - Social history:: Smoking status: . ROS: 19:38 Constitutional: Negative for fever, chills, and weight loss, Eyes: Negative for injury, rn pain, redness, and discharge, ENT: Positive for jaw injury and swelling Neck: Negative for injury, pain, and swelling, Cardiovascular: Negative for chest pain, palpitations, and edema, Respiratory: Negative for shortness of breath, cough, wheezing, and pleuritic chest pain, Abdomen/GI: Negative for abdominal pain, nausea, vomiting, diarrhea, and constipation, MS/Extremity: Negative for injury and deformity, Neuro: Negative for headache, weakness, numbness, tingling, and seizure, Exam: 19:38 Constitutional: This is a well developed, well nourished patient who is awake, alert, rn and in no acute distress. Able to transfer herself from EMS stretcher to bed Head/Face: Normocephalic, right zygomatic contusion and ecchymosis. Submental ecchymosis and abrasion but no laceration. Eyes: Pupils equal round and reactive to light, extra-ocular motions intact. ENT: No intraoral injury or evidence of alveolar fracture Neck: No midline cervical tenderness Cardiovascular: Regular rate and rhythm. No pulse deficits. Respiratory: No increased work of breathing, no retractions or nasal flaring. Abdomen/GI: Soft, non-tender Back: No spinal tenderness. MS/ Extremity: Pulses equal, no cyanosis. Neurovascular intact. Full, normal range of motion. Neuro: Awake and alert, GCS 15. Able to transfer herself from stretcher to bed Vital Signs: 19:40 BP 123 / 95; Pulse 95; Resp 20; Temp 98; Pulse Ox 98% on R/A; aa10 19:56 BP 117 / 90; Pulse 90; Resp 20; Temp 98; Pulse Ox 98% on R/A; aa10 21:08 BP 111 / 87; Pulse 94; Resp 20 S; Temp 98.6; Pulse Ox 99% on R/A; aa10 22:05 BP 111 / 84; Pulse 90; Resp 20; Temp 98.6; Pulse Ox 99% on R/A; aa10 Bernard Coma Score: 19:37 Eye Response: spontaneous(4). Motor Response: obeys commands(6). Verbal Response: rn oriented(5). Total: 15. MDM: 19:34 Medical Screening Exam initiated rn 20:04 Data reviewed: vital signs, nurses notes. ec2 20:05 ED course: Patient signed out to me by previous physician, brief arrives today for ec2 evaluation of facial pain after a ground-level fall. Plans to follow-up lab work and imaging.. 06/02 19:36 Order name: CBC with Diff; Complete Time: 20:33 rn 06/02 19:36 Order name: Basic Metabolic Panel; Complete Time: 20:33 rn 06/02 19:36 Order name: Protime (+inr); Complete Time: 20:33 rn 06/02 19:36 Order name: Ptt, Activated; Complete Time: 20:33 rn 06/02 19:36 Order name: ETOH Level; Complete Time: 20:33 rn 06/02 19:36 Order name: CT Facial Bones W/O Con; Complete Time: 21:44 rn 06/02 19:36 Order name: CT Head C Spine; Complete Time: 21:44 rn 06/02 19:36 Order name: IV Start; Complete Time: 19:38 rn Administered Medications: 22:03 Drug: Amoxicillin-Clavulanate PO 875 mg PO once Route: PO; aa10 22:06 Follow up: Response: No adverse reaction; Marked relief of symptoms aa10 Disposition Summary: 06/02/24 21:46 Discharge Ordered Notes: Location: Home ec2 Condition: Stable ec2 Diagnosis - Facial Contusion ec2 - Dental Infection ec2 Followup: ec2 - With: Private Physician - When: - Reason: Re-evaluation by your physician Discharge Instructions: - Discharge Summary Sheet aa10 - Fall Prevention in Hospitals, Adult aa10 - Understanding Your Risk for Falls aa10 Forms: - Medication Reconciliation Form ec2 - Antibiotic Education ec2 - Prescription Opioid Use ec2 - Patient Portal Instructions ec2 - Leadership Thank You Letter ec2 Prescriptions: - Augmentin 875-125 mg Oral tablet - take 1 tablet ORAL route every 12 hours for 7 days; 14 tablet; Refills: 0, ec2 Product Selection Permitted Signatures: Dispatcher [employer] EDMS Ji Paige MD MD rn Corral, Edwin, MD MD ec2 Brianna Givens RN RN aa10 Corrections: (The following items were deleted from the chart) 19:36 19:36 CBC+H.LAB.BRZ ordered. EDMS EDMS 19:36 19:36 BASIC METABOLIC PANEL+C.LAB.BRZ ordered. EDMS EDMS 19:36 19:36 PROTIME (+INR)+COAG.LAB.BRZ ordered. EDMS EDMS 19:36 19:36 PTT, ACTIVATED+COAG.LAB.BRZ ordered. EDMS EDMS 19:36 19:36 ETHANOL+C.LAB.BRZ ordered. EDMS EDMS
--- NOTE | 2024-06-02 21:47 | ER ---
Nurse's Notes [facility] Name: Ethel Amato Age: 34 yrs Sex: Female : 1990 Arrival Date: 06/02/2024 Time: 19:33 Bed 20 Private MD: Diagnosis: Facial Contusion;Dental Infection Presentation: 06/02 19:40 Chief complaint: EMS states: patient called EMS for toothache , following a surgical aa10 procedure last Saturday,patient then had a fall, per EMS no loss of consciousness, patient fell and hit her face, patient took her pain meds with half a bottle of tequila . Coronavirus screen: Client denies travel out of the [place] in the last 14 days. At this time, the client does not indicate any symptoms associated with coronavirus-19. Ebola Screen: Patient negative for fever greater than or equal to 101.5 degrees Fahrenheit, and additional compatible Ebola Virus Disease symptoms Patient denies exposure to infectious person. Patient denies travel to an Ebola-affected area in the 21 days before illness onset. No symptoms or risks identified at this time. Initial Sepsis Screen: Does the patient meet any 2 criteria? No. Patient's initial sepsis screen is negative. Does the patient have a suspected source of infection? No. Patient's initial sepsis screen is negative. Risk Assessment: Do you want to hurt yourself or someone else? Patient reports no desire to harm self or others. Onset of symptoms was July 31, 2024. 19:40 Method Of Arrival: EMS: [facility] aa10 19:40 Acuity: APOLINAR 3 aa10 Triage Assessment: 19:54 General: Appears in no apparent distress. comfortable, well groomed, well developed, aa10 well nourished, Behavior is calm, cooperative, appropriate for age, Smells of alcohol. Pain: Complains of pain in face Pain does not radiate. Pain currently is 8 out of 10 on a pain scale. Quality of pain is described as aching, tender, throbbing, Pain began gradually, Is continuous, Alleviated by medications, Aggravated by increased activity. EENT: No deficits noted. Reports pain in right cheek, left cheek, chin, right jaw and left jaw. 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 - Infectious Disease History:: Denies. - Family history:: not pertinent. - Hospitalizations: : No recent hospitalization is reported. - Social history:: Smoking status: . Screenin:57 [facility] ED Fall Risk Assessment (Adult) History of falling in the last 3 months, aa10 including since admission Yes- single mechanical fall (1 pt) Confusion or Disorientation No (0 pts) Intoxicated or Sedated Yes (3 pts) Impaired Gait No (0 pts) Mobility Assist Device Used No (0 pt) Altered Elimination No (0 pt) Score/Fall Risk Level 3 or more points = High Risk Oriented to surroundings, Maintained a safe environment, Educated pt \T\ family on fall prevention, incl call for assistance when getting out of bed, Assessed \T\ reinforced patient's understanding of fall precautions, Provided non-skid footwear, Hourly rounding (assess needs \T\ fall precautionary measures) done, Implemented a Fall Risk Plan of Care. Abuse screen: Denies threats or abuse. Denies injuries from another. Nutritional screening: No deficits noted. On no prescribed diet. Tuberculosis screening: No symptoms or risk factors identified. Assessment: 19:59 Reassessment: see triage assessment. aa10 20:24 Reassessment: Patient appears in no apparent distress at this time. No changes from aa10 previously documented assessment. Patient and/or family updated on plan of care and expected duration. Pain level reassessed. Patient is alert, oriented x 3, equal unlabored respirations, skin warm/dry/pink. Patient states feeling better. 20:40 Reassessment: patient was transferred to CT scan, she was conscious, oriented and aa10 alert, with GCS of 15/15. 21:07 Reassessment: Patient was given ICE pack for buccal pain, she is pending result review. aa10 Vital Signs: 19:40 BP 123 / 95; Pulse 95; Resp 20; Temp 98; Pulse Ox 98% on R/A; aa10 19:56 BP 117 / 90; Pulse 90; Resp 20; Temp 98; Pulse Ox 98% on R/A; aa10 21:08 BP 111 / 87; Pulse 94; Resp 20 S; Temp 98.6; Pulse Ox 99% on R/A; aa10 22:05 BP 111 / 84; Pulse 90; Resp 20; Temp 98.6; Pulse Ox 99% on R/A; aa10 Vinton Coma Score: 19:37 Eye Response: spontaneous(4). Motor Response: obeys commands(6). Verbal Response: rn oriented(5). Total: 15. ED Course: 19:34 Patient arrived in ED. rn 19:34 Ji Paige MD is Attending Physician. rn 19:45 Triage completed. aa10 19:53 ETOH Level Sent. aa10 19:54 Protime (+inr) Sent. aa10 19:54 Ptt, Activated Sent. aa10 19:54 Basic Metabolic Panel Sent. aa10 19:54 CBC with Diff Sent. aa10 19:56 Arm band placed on right wrist. Patient placed in view of staff members. aa10 19:58 Patient has correct armband on for positive identification. Allergy band placed. Fall aa10 risk band placed. Placed in gown. Bed in low position. Call light in reach. Side rails up X2. Provided Education on: about plan of care. 19:59 No provider procedures requiring assistance completed. Inserted saline lock: 18 gauge aa10 in left antecubital area, using aseptic technique. 20:03 Attending Physician role handed off by Ji Paige MD ec2 20:03 Aniceto Ordonez MD is Attending Physician. ec2 20:45 CT Facial Bones W/O Con In Process Unspecified. EDMS 20:46 CT Head C Spine In Process Unspecified. EDMS 22:07 IV discontinued. aa10 Administered Medications: 22:03 Drug: Amoxicillin-Clavulanate PO 875 mg PO once Route: PO; aa10 22:06 Follow up: Response: No adverse reaction; Marked relief of symptoms aa10 Medication: 19:57 VIS not applicable for this client. aa10 Outcome: 21:46 Discharge ordered by . ec2 22:06 Discharged to home ambulatory, aa10 22:06 Condition: good 22:06 Discharge instructions given to patient, 22:12 Patient left the ED. aa10 Signatures: Dispatcher [employer] EDMS Ji Paige MD MD rn Corral, Edwin, MD MD ec2 Maurilio Givensoku, RN RN aa10
[2024-06-02] MEDS ORDERED: AMOX/K CLAV 875 MG TAB ONE (22:02)
[2024-06-03 09:22] VITALS: TEMP 98.6; O2SAT 99
[2024-06-03 09:23] VITALS: BP 111/84
== END 2024-06-02 22:12 | disposition home or self-care (01) ==
LOC: ER 19:33
DX: S00.83XA Contusion of other part of head, initial encounter (principal); K04.7 Periapical abscess without sinus; W18.30XA Fall on same level, unspecified, initial encounter
CPT/HCPCS: 36415; 70450; 70486; 72125; 76377; 80048; 82077; 85025; 85610; 85730

== ENCOUNTER 2024-06-05 03:10 | Inpatient (IN) | payer OTHER, SELFPAY ==
--- OUTSIDE RECORDS SUMMARY | 2024-06-05 03:24 | XMS REPORT | Continuity of Care Document ---
Author Name Unknown Address [address] [facility] [address] [place] [address] [facility] thconnect Address [address] [facility] [address] [place] [address] Care Team Providers Care Fiber Optics Engineer Name Role Phone Devyn STUBBS, [facility] Primary Care Physician + Devyn Leander M Attending Clinician Unavailable CATHIE ROSS Attending Clinician Unavailyfn Jimenez MD, Jacqueline Hilton Attending Clinician +[phone] Stephanie TSUBBS, Marguerite Mauricio Attending Clinician + [phone] Kenna STUBBS, Robert Paiz Attending Clinician [phone] Rebeca STUBBS, Eric Attending Clinician +[phone] ERIC PATINO Attending Clinician Unavailable MICHELLE PATIÑO Attending Clinician Unavailable MICHELLE PATIÑO Attending Clinician Unavailable Haroon PROFESSOR OF PRACTICEMichelle Attending Clinician +[phone] VALERIA HERNANDEZ Attending Clinician Unavaila arden Hernandez ACNValeria Kim Attending Clinician + [phone] CLEMENTINA MARROQUIN Attending Clinician Unavailab CLEMENTINA Tang Attending Clinician Unavailab Clementina Tang DO Attending Clinician +[phone] CATHIE ROSS Attending Clinician UnavailCathie Tomas MD Attending Clinician +[phone] JAYDEN JOHANSEN Attending Clinician Unavailable AJYDEN JOHANSEN Attending Clinician Unavailable Jayden Johansen MD Attending Clinician [phone] KANDY CHAVEZ Attending Clinician Unavailable KANDY CHAVEZ Attending Clinician Unavailable Kandy Sanchez Attending Clinician + [phone] LORENZO ASHFORD Attending Clinician Unavailable LORENZO ASHFORD Attending Clinician Unavailable Lorenzo Ashford MD Attending Clinician +[phone] KRISTA CABRERA Attending Clinician Unavailable KRISTA CABRERA Attending Clinician Unavailable Krista Cabrera MD Attending Clinician +[phone] Jonelle Connell DO Attending Clinician +[phone] NBA BALDERAS Attending Clinician Unavailab Lauren Davila MA Attending Clinician Un available VALERIO LOWE Attending Clinician Unavailable VALERIO LOWE Attending Clinician Unavailable AufdAlyssia camacho MD Attending Clinician + PHILLIP DEVI Attending Clinician Unavailable Eduar Echevarria DO Attending Clinician +[phone] Phillip Devi MD Attending Clinician +[phone] JONELLE CONNELL Attending Clinician Unavailable JONELLE CONNELL Attending Clinician Unavailable Zoë Singletary NP Attending Clinician + [phone] ZOË SINGLETARY Attending Clinician Unavailable Jose Domínguez Attending Clinician +[phone] CECILE RANGEL Attending Clinician Unavailable Cecile Hernandez Attending Clinician +[phone] ELENO OLMSTEAD Attending Clinician Unavailable ELENO OLMSTEAD Attending Clinician Unavailable Adrian Tapia Attending Clinician +[phone] Doctor Unassigned, [place] Attending Clinician U navailable ADRIAN LEIJA Attending Clinician Unavailable Unknown, Attending Attending Clinician Unavailab Thelma Hernandez LVN Attending Clinician + [phone] WILLIAM CASTORENA Attending Clinician Unavailyfn Castorena MD, William Nolasco Attending Clinician [phone] Jacob Jacobs Attending Clinician UnavailALMA ROSA Abdul Attending Clinician Unavailable Da STUBBS, Alma Rosa Attending Clinician +[phone] JUAN CHAVEZ Attending Clinician Unavail Adelina Ramirez MD Attending Clinician + [phone] Mitch Robertson MD Attending Clinician +[phone] Juan Chavez MD Attending Clinician +[phone] EDUAR ECHEVARRIA Attending Clinician Unavailable MARGUERITE BEST T Attending Clinician Unavailable Marguerite Vasquez Attending Clinician +[phone] LIZBETH SNOW Attending Clinician Unavailable Chula NAVARRETE Attending Clinician Unavailable Chula NAVARRETE Attending Clinician Unavailable Lacey Suggs MD Attending Clinician [phone] Oral Surgery, Oral Attending Clinician Unavailab Jose Loredo Attending Clinician Unavailable Jian Salvador Attending Clinician Unavailable ALARCON, LENORE S Attending Clinician Unavailable Alarcon PAC, Lenore S Attending Clinician [phone] DURGA CORTES Attending Clinician Unavailab orly Judge PAC, Kerrie S Attending Clinician +[phone] KERRIE JUDGE Attending Clinician Unavailable Cathie Ross MD Attending Clinician + [phone] JACQUELINE SHIN Attending Clinician Unavailable Shin PROFESSOR OF PRACTICE, Jacqueline Attending Clinician +[phone] Edy STUBBS, Afaq Attending Clinician +[phone] Pob, Adc Lab Main Attending Clinician Unavailyfn e Only, Adc Test Attending Clinician Unavailable Horace PROFESSOR OF PRACTICE, Consuelo Attending Clinician +[phone] EBKARINA ELLISON Attending Clinician Unavailable Ebjody PROFESSOR OF PRACTICE, Karina Attending Clinician [phone] Visit, Ang-Rmp Nurse Attending Clinician Unava ilable Anmol PROFESSOR OF PRACTICE, Durga Doyle Attending Clinician + [phone] Akinsihanna WHCNPPratima Attending Clinician + AKINPRATIMA NORRIS Attending Clinician Unavail able _[facility] Attending Clinician Unavail able MARY MARIE Attending Clinician Unava ilable Ryan PROFESSOR OF PRACTICE, Mary Attending Clinician + Nerissa HOFF, Zakiya Sanders Attending Clinician Unavailab orly Only, Ang Db Test Attending Clinician UnavailReji HASSANP, Miley Attending Clinician [phone] MILEY CHANG Attending Clinician Unavailable Julisa Purvis DO Attending Clinician +[phone] Marin HOFF, Tiff Moreno Attending Clinician +[phone] CAMILO MORAN Attending Clinician Unavailyfn Espana MD, [place] Damian Attending Clinician + [phone] Camilo Moran MD Attending Clinician +[phone] Karina STUBBS, Marisabel Attending Clinician +[phone] Provider, [facility] Attending Clinician Un available Kelly Cooley Attending Clinician +[phone] Jennifer Sher MD Attending Clinician +[phone] Radiology Attending Clinician Unavailable RADIOLOGY Attending Clinician Unavailable JENNIFER SHER Attending Clinician Unavailable KELLY PEREZ Attending Clinician Unavailable Shola HASSANP, Sabra Attending Clinician [phone] SABRA SORTO Attending Clinician Unavailable Carrington CASTANEDA, Brandi Casanova Attending Clinician +[phone] Eliezer Watts MD Attending Clinician [phone] Jayden Leahy MD Attending Clinician +[phone] CATHIE ROSS Admitting Clinician UnavailRobert Garrett MD Admitting Clinician +[phone] ROBERT PAIZ Admitting Clinician Unavail able MICHELLE PATIÑO Admitting Clinician Unavailable VALERIA HERNANDEZ Admitting Clinician Unavaila KANDY Blackman Admitting Clinician Unavailable LORENZO ASHFORD Admitting Clinician Unavailable NBA BALDERAS Admitting Clinician Unavailab EDUAR So Admitting Clinician Unavailable Eduar Echevarria DO Admitting Clinician +[phone] PHILLIP DEVI Admitting Clinician Unavailable Phillip Devi MD Admitting Clinician +[phone] CECILE RANGEL Admitting Clinician Unavailable ELENO OLMSTEAD Admitting Clinician Unavailable WILLIAM CASTORENA Admitting Clinician UnavailWilliam Serrano MD Admitting Clinician +[phone] Arnol Gonsalez Admitting Clinician Unavailab MITCH Arteaga Admitting Clinician Unavailable Mitch Robertson MD Admitting Clinician +[phone] MARGUERITE BEST Admitting Clinician Unavailable LACEY SUGGS Admitting Clinician Unavailable Cathie Ross MD Admitting Clinician +[phone] SANGITA_YANNA_Wallace_Charisse Admitting Clinician Unavail able MARISABEL COLLINS Admitting Clinician Unavailable Marisabel Collins MD Admitting Clinician +[phone] LENORE ALARCON Admitting Clinician Unavailable SABRA SORTO Admitting Clinician Unavailable Payers Payer Name Policy Type Policy Number Effective Date Expirati on Date Source [employer] MEDICAID [id number] 2016 00:00:00 [place] [facility] [id number] 2024 00:00:00 [place] [id number] 2023 00:00:00 [facility] [id number] 2022 00:00:00 2023 00:00:00 [facility] [id number] 2019 00:00:00 [facility] [id number] 2019 00:00:00 [facility] [id number] 2019 00:00:00 [facility] [id number] 2019 00:00:00 [facility] Problems Condition Name Condition Details Condition Category Status Onset Date Resolution Date Last Treatment Date Treating Clinician Comments Source Alcohol withdrawal , uncomplica colleen Alcohol withdrawal , uncomplica colleen Disease Active 04-25 00:00: 00 Marcos Sandoval Acute pancreatit is Acute pancreatit is Disease Active 04-25 00:00: 00 Marcos Sandoval Hypertensi on Hypertensi on Disease Active - 00:00: 00 Marcos Sandoval Elevated LFTs Elevated LFTs Disease Active - 00:00: 00 Marcos Sandoval UTI (urinary tract infection) UTI (urinary tract infection) Disease Active - 00:00: 00 Marcos Sandoval Alcohol withdrawal syndrome without complicati on Alcohol withdrawal syndrome without complicati on Disease Active -17 00:00: 00 [facility] Nausea and vomiting, unspecifie d vomiting type Nausea and vomiting, unspecifie d vomiting type Disease Active 5-30 00:00: 00 [facility] Alcohol withdrawal syndrome, with delirium Alcohol withdrawal syndrome, with delirium Disease Active -03 00:00: 00 [facility] E44.0 Moderate protein calorie malnutriti on E44.0 Moderate protein calorie malnutriti on Disease Active 7-24 00:00: 00 [facility] Alcohol abuse Alcohol abuse Disease Active 7-22 00:00: 00 [facility] Flank pain Flank pain Disease Active 7-18 00:00: 00 [facility] Closed dislocatio n of fifth metacarpal bone of right hand Closed dislocatio n of fifth metacarpal bone of right hand Disease Active 20 00:00: 00 Overview: Formattin g of this note might be different from the original. Added automatic ally from request for surgery [id number] [facility] Closed dislocatio n of fifth metacarpal bone of right hand Closed dislocatio n of fifth metacarpal bone of right hand Disease Active 11-08 00:00: 00 Overview: Formattin g of this note might be different from the original. Added automatic ally from request for surgery [id number] [facility] Other general counseling and advice for contracept luna management Other general counseling and advice for contracept luna management Disease Active 324 00:00: 00 [facility] Underweigh t Underweigh t Disease Active 07-13 00:00: 00 [facility] History of anorexia nervosa History of anorexia nervosa Disease Active 324 00:00: 00 Overview: Formattin g of this note might be different from the original. Reports currently see therapist [facility] Alcohol withdrawal syndrome with perceptual disturbanc e Alcohol withdrawal syndrome with perceptual disturbanc e Disease Active 2020-04-13 00:00: 00 [facility] Hypokalemi a Hypokalemi a Disease Active 2020-04- 00:00: 00 [facility] ETOH abuse ETOH abuse Disease Active 08-16 00:00: 00 [facility] E46 Unspecifie d severe protein-ca evette malnutriti on E46 Unspecifie d severe protein-ca evette malnutriti on Disease Active 08-16 00:00: 00 [facility] H/O hernia repair H/O hernia repair Disease Active 08-21 00:00: 00 [facility] Hiatal hernia Hiatal hernia Disease Active 08-21 00:00: 00 [facility] [id number] History of alcohol abuse Problem [facility] [id number] Tobacco use disorder Problem [facility] [id number] Constipati on, unspecifie d constipati on type Problem [facility] [id number] Allergic rhinitis, unspecifie d seasonalit y, unspecifie d trigger Problem [facility] [id number] Mass of chest wall Problem [facility] Attention deficit hyperactiv ity disorder, predominan tly inattentiv e type Attention deficit hyperactiv ity disorder (ADHD), predominan tly inattentiv e type Problem [facility] [id number] GERD without esophagiti s Problem [facility] [id number] Hypercalce manav Problem [facility] [id number] Iron deficiency anemia, unspecifie d iron deficiency anemia type Problem [facility] [id number] Enlarged thyroid Problem [facility] [id number] Abnormal finding on imaging Problem [facility] Intractabl e nausea and vomiting Intractabl e nausea and vomiting Disease Resolve d 4-27 00:00: 00 2021-07-13 00:00:00 2021-07-13 09:24:51 [facility] Rh negative status during Rh negative status during Disease Resolve d 08-22 00:00: 00 2021-07-13 00:00:00 2021-07-13 09:25:04 [facility] Supervisio n of high risk , antepartum , first trimester Supervisio n of high risk , antepartum , first trimester Disease Resolve d 08-21 00:00: 00 2021-07-13 00:00:00 2021-07-13 09:25:05 [facility] Missed menses Missed menses Disease Resolve d 08-21 00:00: 00 2021-07-13 00:00:00 2021-07-13 09:25:08 [facility] Multiparit y Multiparit y Disease Resolve d 08-21 00:00: 00 2021-07-13 00:00:00 2021-07-13 09:24:54 [facility] Tobacco use in , unspecifie d trimester Tobacco use in , unspecifie d trimester Disease Resolve d 08-21 00:00: 00 2021-07-13 00:00:00 2021-07-13 09:25:07 [facility] Needs flu shot Needs flu shot Disease Resolve d 08-21 00:00: 00 2021-07-13 00:00:00 2021-07-13 09:24:56 [facility] History of labor History of labor Disease Resolve d 08-21 00:00: 2021-07-13 00:00:00 2021-07-13 09:24:49 [facility] Allergies, Adverse Reactions, Alerts Allergy Name Allergy Type Status Severity Reaction(s) Onset Date Inactive Date Treating Clinician Comments Source No Known Allergie s DA Active U 2016-04 00:00: 00 [facility] NO KNOWN ALLERGIE S Drug Class Active [facility] 84462 Drug allergy Active Muscle Atrophy [facility] Social History Social Habit Start Date Stop Date Quantity Comments Source Sex Assigned At [facility] History of tobacco use Passive smoker [facility] mikael [facility] ASSERTION Possible [facility] Gender identity Ryan natalia Christianson [facility] Sexual orientation [facility] History of Social function 2024-04-25 00:00:00 2024-04-25 00:00:00 [facility] Alcoholic beverage intake 2024-03-30 00:00:00 2024-03-30 00:00:00 Current drinker of alcohol (finding) [facility] Tobacco Comment 2023-11-06 00:00:00 2023-11-06 00:00:00 Currently vapes nicotine [facility] Alcohol Comment 2023-11-06 00:00:00 2023-11-06 00:00:00 last drink 4-5 shots yesterday [facility] Tobacco use and exposure 2023-11-06 00:00:00 2023-11-06 00:00:00 Former smokeless tobacco user [facility] Alcohol intake 2023-04-30 00:00:00 2023-04-30 00:00:00 Current non-drinker of alcohol (finding) [facility] Exposure to SARS-CoV-2 (event) 2022-08-17 00:00:00 2022-08-27 20:37:00 Not sure [facility] Cigarettes smoked current (pack per day) - Reported 2018-11-05 00:00:00 2018-11-05 00:00:00 [facility] Smoking Status Start Date Stop Date Source Ex-smoker 2024-04-25 00:00:00 2024-04-25 00:00:00 Josh Sandoval Current Smoker 2023-06-07 00:00:00 [facility] Medications Ordered Medication Name Filled Medication [...] Sat04/25/24 at 0900, For 5 days Marcos Sandovla multivitami n (Theragran- M) tablet 1 tablet [...] Sat04/24/24 at 2215, For 1 dose Marcos Sandoval PHENobarbit al (Luminal) injection 260 mg PHENobarbit al (Luminal) injection 260 mg 04-24 22:00: 00 04-24 22:32 :00 No 260mg 260 mg, Intravenou s, Once, On Sat04/24/24 at 2200, For 1 dose, Administer no faster than 1 mg/kg/theodore te, to a max of 60 mg/min in adults. Marcos Sandoval PHENobarbit al (Luminal) injection 260 mg PHENobarbit [...] ONCE, 1 dose, On 04/05/24 at 0230, [facility] acetaminoph en (TYLENOL) tablet 650 mg 2023-04 07:45: 00 04-05 07:42 :00 No 650mg 650 mg, Oral, ONCE, 1 dose, On 04/05/24 at 0145, [facility] iopamidol (ISOVUE 370-500 mL) injection 75 mL 2023-04 07:45: 00 04-05 07:45 :00 No [id number] 75mL 75 mL, Intravenou s, ONCE, 1 dose, On 04/05/24 at 0145, Routine [facility] ondansetron (ZOFRAN (PF)) injection 4 mg 2023-04 05:45: 00 04-05 05:46 :00 No 4mg 4 mg, Slow IV Push, ONCE, 1 dose, On 04/04/24 at 2345, Administer over 2-5 Minutes, 2 mL [facility] NaCl 0.9% (NS) IV infusion 1,000 mL 2023-04 05:32: 00 04-05 07:43 :00 No 1000mL at 999 mL/hr, Intravenou s, ONCE, 1 dose, On 04/04/24 at 2345, CECILIA [facility] sodium chloride (NS) injection 5 mL 2023-04 05:12: 47 Yes 5mL 5 mL, Intravenou s, PRN, Starting on 04/04/24 at 2312, Until Discontinu ed, Routine, IV line flushing [facility] HYDROcodone -acetaminop hen (NORCO 5) tablet 1 tablet 2023-04 02:30: 00 03-31 01:53 :00 No 1{tbl} 1 tablet, Oral, ONCE, 1 dose, On Sat03/30/24 at 2030, CECILIA [facility] ondansetron (ZOFRAN-ODT ) disintegrat ing tablet 4 mg 2023-04 01:45: 00 03-31 01:53 :00 No 4mg 4 mg, Oral, ONCE, 1 dose, On Sat03/30/24 at 2000, Routine [facility] ondansetron (ZOFRAN-ODT ) disintegrat ing tablet 4 mg 2023-04 10:15: 00 03-30 09:28 :00 No 4mg 4 mg, Oral, ONCE, 1 dose, On Sat03/30/24 at 0415, Routine [facility] ibuprofen (IBU) tablet 600 mg 2023-04 09:15: 00 03-30 09:24 :00 No 600mg 600 mg, Oral, ONCE, 1 dose, On Sat03/30/24 at 0315, [facility] cephALEXin 500 mg capsule 2023-04 00:00: 00 04-07 05:59 :00 Yes [id number] 500mg Take 1 capsule by mouth in the morning and 1 capsule in the evening. Do all this for 7 days. [facility] methocarbam oL (ROBAXIN) tablet 1,000 mg 2023-04 19:30: 00 01-25 20:18 :00 No 1000mg 1,000 mg, Oral, ONCE, 1 dose, On 01/26/24 at 1430, [facility] ibuprofen (IBU) tablet 600 mg 2023-04 19:30: 00 01-25 20:18 :00 No 600mg 600 mg, Oral, ONCE, 1 dose, On 01/26/24 at 1430, [facility] methocarbam oL 750 mg tablet 2023-04 00:00: 00 Yes [id number] 750mg Take 1 tablet by mouth 3 (three) times daily as needed (body aches). [facility] fentanyl PF (SUBLIMAZE (PF)) injection 50 mcg 12-27 02:00: 00 12-27 02:00 :00 No 50ug 50 mcg, Intramuscu lar, ONCE, 1 dose, On Sat12/27/23 at 2100, Routine [facility] HYDROcodone -acetaminop hen (NORCO 5) tablet 1 tablet 12-26 21:15: 00 12-26 21:55 :00 No 1{tbl} 1 tablet, Oral, ONCE, 1 dose, On Sat12/27/23 at 1615, [facility] HYDROcodone -acetaminop hen (NORCO) 10-325 mg tablet 1 tablet 12-15 12:15: 00 12-15 11:26 :00 No 1{tbl} 1 tablet, Oral, ONCE NOW, 1 dose, On Sat12/16/23 at 0715, Routine [facility] traMADoL (ULTRAM) 50 mg tablet 12-15 00:00: 00 Yes [id number] 50mg Take 1 tablet by mouth every 6 (six) hours as needed for Pain (scale 7-10). Indication s: acute pain [facility] magnesium sulfate in water 2 gram/50 mL (4 %) infusion 2 g 12-07 21:45: 00 12-07 21:30 :00 No 2g 2 g, IV Piggyback, Administer over 60 Minutes, ONCE, 1 dose, On Sat12/08/23 at 1645, [facility] thiamine (VITAMIN B1) 100 mg in NaCl 0.9% (NS) piggyback 12-07 20:30: 00 12-07 21:01 :00 No 100mg IV Piggyback, ONCE, 1 dose, On Sat12/08/23 at 1530, 50 mL [facility] LORazepam (ATIVAN) tablet 1 mg 12-07 20:00: 00 12-07 20:03 :00 No 1mg 1 mg, Oral, ONCE, 1 dose, On Sat12/08/23 at 1500, [facility] magnesium oxide 400 mg (241.3 mg magnesium) tablet 12-07 00:00: 00 Yes [id number] 800mg Take 2 tablets by mouth in the morning. [facility] chlordiazeP OXIDE 25 mg capsule 12-07 00:00: 00 Yes [id number] 100mg Take 4 capsules by mouth in the morning and 4 capsules at noon and 4 capsules in the evening. [facility] diphenhydrA MINE (BENADRYL) tablet 25 mg 12-05 08:30: 00 12-05 08:21 :00 No 25mg 25 mg, Oral, ONCE, 1 dose, On Sat12/06/23 at 0330, [facility] LORazepam (ATIVAN) tablet 1 mg 12-05 07:00: 00 12-05 06:58 :00 No 1mg 1 mg, Oral, ONCE, 1 dose, On Sat12/06/23 at 0200, [facility] LORazepam (ATIVAN) tablet 1 mg 12-04 05:00: 00 12-04 05:05 :00 No 1mg 1 mg, Oral, ONCE, 1 dose, On Sat12/05/23 at 0000, [facility] NaCl 0.9% (NS) bolus infusion 1,000 mL 12-04 04:45: 00 12-04 04:50 :00 No 1000mL at 999 mL/hr, 1,000 mL, IV Infusion, ONCE, 1 dose, On Sat12/04/23 at 2345, [facility] Lidocaine (LIDOCARE) 4 % patch 1 Patch 11-21 18:15: 00 11-22 06:14 :00 No 1{patch } 1 Patch, Topical, Administer over 12 Hours, ONCE, 1 dose, On Sat11/22/23 at 1315, Routine [facility] NaCl 0.9% (NS) bolus infusion 1,000 mL 11-21 18:15: 00 11-21 19:21 :00 No 1000mL at 999 mL/hr, 1,000 mL, IV Infusion, ONCE, 1 dose, On Sat11/22/23 at 1315, [facility] ketorolac (TORADOL) injection 30 mg 11-21 17:40: 00 11-21 17:52 :00 No 30mg 30 mg, Slow IV Push, ONCE, 1 dose, On Sat11/22/23 at 1245, [facility] proCHLORper azine (COMPAZINE) 10 mg in NaCl 0.9% (NS) piggyback 11-21 17:30: 00 11-21 18:24 :00 No 10mg 10 mg, IV Piggyback, at 100 mL/hr Administer over 30 Minutes, ONCE, 1 dose, On Sat11/22/23 at 1230, [facility] methocarbam oL (ROBAXIN) tablet 1,000 mg 11-21 17:30: 00 11-21 17:56 :00 No 1000mg 1,000 mg, Oral, ONCE, 1 dose, On Sat11/22/23 at 1230, [facility] metoprolol tartrate (LOPRESSOR) tablet 25 mg 11-08 14:15: 00 Yes 25mg 25 mg, Oral, BID, First dose on Sat11/09/23 at 0915, Until Discontinu ed, Routine [facility] oxazepam (SERAX) capsule 15 mg 11-08 06:01: 04 11-09 06:14 :00 No 15mg 15 mg, Oral, Q12H TAPER, 2 doses, First dose on Sat11/09/23 at 0115, Last dose on Sat11/09/23 at 1315, Routine [facility] metoprolol tartrate 25 mg tablet 11-08 00:00: 00 12-09 04:59 :00 No [id number] 25mg Take 1 tablet by mouth in the morning and 1 tablet in the evening. Do all this for 30 days. [facility] KCL (KLOR-CON M20) tablet 20 mEq 11-07 23:00: 00 11-07 22:58 :00 No 20meq 20 mEq, Oral, ONCE, 1 dose, On Sat11/08/23 at 1800, Routine [facility] diphenhydrA MINE (BENADRYL) tablet 25 mg 11-07 13:03: 50 Yes 25mg 25 mg, Oral, Q6HPRN, Starting on Sat11/08/23 at 0803, Until Discontinu ed, Routine, Itching [facility] phosphorus (K PHOS NEUTRAL) tablet 1 tablet 11-07 13:00: 00 11-09 12:59 :00 No 250mg 1 tablet (250 mg), Oral, BID, 4 doses, First dose on Sat11/08/23 at 0800, Last dose on Sat11/09/23 at 2000, Routine [facility] magnesium sulfate in water 2 gram/50 mL (4 %) infusion 2 g 11-07 13:00: 00 11-07 14:34 :00 No 2g 2 g, IV Piggyback, Administer over 60 Minutes, ONCE, 1 dose, On Sat11/08/23 at 0800, Routine [facility] potassium phosphate 30 mmol in NaCl 0.9% (NS) 500 mL piggyback 11-07 13:00: 00 11-07 20:30 :00 No 30mmol 30 mmol, IV Piggyback, ONCE, 1 dose, On Sat11/08/23 at 0800, 500 mL [facility] HYDROmorpho ne (DILAUDID) injection 0.5 mg 11-07 10:45: 00 11-07 10:31 :00 No .5mg 0.5 mg, Slow IV Push, ONCE, 1 dose, On Sat11/08/23 at 0545, Routine, Is this medication approved by a Faculty level provider? Yes, front desk team member approving Restricted medication : WILLIAM CASTORENA [facility] traMADoL (ULTRAM) tablet 50 mg 11-07 01:50: 29 Yes 50mg 50 mg, Oral, Q6HPRN, Starting on Sat11/07/23 at 2050, Until Discontinu ed, Routine, Pain (scale 4-6) [facility] FENTanyl PF (SUBLIMAZE (PF)) injection 25 mcg 11-07 01:29: 16 Yes 25ug 25 mcg, Slow IV Push, Q4HPRN, Starting on Sat11/07/23 at 202, Until Discontinu ed, Routine, Pain (scale 7-10) [facility] NaCl 0.9% (NS) IV infusion 1,000 mL 11-07 00:30: 00 11-07 13:51 :28 No 1000mL at 75 mL/hr, IV Infusion, CONTINUOUS , Starting on Sat11/07/23 at 1930, Until Sat11/08/23 at 0851, Routine [facility] sodium phosphate 15 mmol in NaCl 0.9% (NS) 250 mL piggyback 11-06 14:45: 00 11-06 19:18 :00 No 15mmol 15 mmol, IV Piggyback, ONCE, 1 dose, On Sat11/07/23 at 0945, Administer over 4 Hours, 250 mL [facility] thiamine mononitrate (VITAMIN B-1 (MONONITRAT E)) tablet 100 mg 11-06 14:00: 00 Yes 100mg 100 mg, Oral, DAILY, First dose on Sat11/07/23 at 0900, Until Discontinu ed, Routine [facility] foLIC acid (FOLATE) tablet 1 mg 11-06 14:00: 00 Yes 1mg 1 mg, Oral, DAILY, First dose on Sat11/07/23 at 0900, Until Discontinu ed, Routine [facility] pantoprazol e (PROTONIX) EC tablet 40 mg 11-06 13:00: 00 Yes 40mg 40 mg, Oral, BID, First dose on Sat11/07/23 at 0800, Until Discontinu ed, Routine [facility] sucralfate (CARAFATE) tablet 1 g 11-06 02:00: 00 Yes 1g 1 g, Oral, AC+HS, First dose on Sat11/06/23 at 2100, Until Discontinu ed, Routine [facility] magnesium sulfate in water 2 gram/50 mL (4 %) infusion 2 g 11-06 01:30: 00 11-06 02:48 :00 No 2g 2 g, IV Piggyback, Administer over 60 Minutes, ONCE, 1 dose, On Sat11/06/23 at 2030, CECILIA [facility] oxazepam (SERAX) capsule 15 mg 11-06 00:01: 04 Yes 15mg 15 mg, Oral, Q4HPRN, Starting on Sat11/06/23 at 1901, Until Discontinu ed, Routine, Only while awake for DBP equal to or greater than 100, HR equal to or greater than 100. [facility] nicotine (NICODERM) 21 mg/24 hr patch 1 Patch 11-06 00:00: 00 Yes 1{patch } 1 Patch, Topical, Administer over 24 Hours, Q24H, First dose on Sat11/06/23 at 1900, Until Discontinu ed, Routine [facility] pantoprazol e (PROTONIX) injection 40 mg 11-05 23:45: 00 11-05 23:08 :00 No 40mg 40 mg, Slow IV Push, ONCE, 1 dose, On Sat11/06/23 at 1845 [facility] ondansetron (ZOFRAN (PF)) injection 4 mg 11-05 22:47: 22 Yes 4mg 4 mg, Slow IV Push, Q6HPRN, Nausea and Vomiting (N/V), Starting on Sat11/06/23 at 1747, Doses of ondansetro n 16 mg and above need to be administer ed via IV piggyback. For Dose >=24mg ECG monitoring is advisable. [facility] enoxaparin (LOVENOX) injection 40 mg 11-05 22:00: 00 Yes 40mg 40 mg, Subcutaneo us, DAILY, First dose on Sat11/06/23 at 1700, Until Discontinu ed, Routine [facility] D5W 0.45% NaCl (1/2NS) 1 L + KCL 20 mEq 11-05 20:45: 00 11-06 13:45 :29 No Intravenou s, at 125 mL/hr, CONTINUOUS , Starting on Sat11/06/23 at 1545, Until [place] 11/07/23 at 0845, CECILIA [facility] NaCl 0.9% (NS) bolus infusion 1,000 mL 11-05 20:00: 00 11-05 20:14 :00 No 1000mL at 999 mL/hr, 1,000 mL, IV Infusion, ONCE, 1 dose, On Sat11/06/23 at 1500, STAT [facility] thiamine (VITAMIN B1) injection 100 mg 11-05 18:45: 00 11-05 18:55 :00 No 100mg 100 mg, Slow IV Push, ONCE, 1 dose, On Sat11/06/23 at 1345, CECILIA [facility] ondansetron (ZOFRAN (PF)) injection 4 mg 10-27 14:45: 00 10-27 14:42 :00 No 4mg 4 mg, Slow IV Push, ONCE, 1 dose, On Sat10/28/23 at 0945, CECILIA [facility] NaCl 0.9% (NS) IV infusion 1,000 mL 10-27 09:45: 00 Yes 1000mL at 150 mL/hr, Intravenou s, CONTINUOUS , Starting on Sat10/28/23 at 0445, Until Discontinu ed, Routine [facility] ondansetron (ZOFRAN-ODT ) disintegrat ing tablet 4 mg 10-18 17:00: 00 10-18 16:15 :00 No 4mg 4 mg, Oral, ONCE, 1 dose, On 10/19/23 at 1200, Routine [facility] hydrOXYzine (ATARAX) tablet 25 mg 10-18 16:00: 00 10-18 16:15 :00 No 25mg 25 mg, Oral, ONCE, 1 dose, On 10/19/23 at 1100, CECILIA [facility] ondansetron 4 mg disintegrat ing tablet 10-18 00:00: 00 Yes [id number] 4mg Take 1 tablet by mouth every 8 (eight) hours as needed for Nausea and Vomiting (N/V). [facility] hydrOXYzine 25 mg tablet 10-18 00:00: 00 Yes [id number] 25mg Take 1 tablet by mouth every 6 (six) hours as needed for Anxiety. [facility] neomycin-po lymyxin-pra moxine 3.5-10,000- 10 mg-unit-mg/ gram cream 10-17 00:00: 00 Yes [id number] Apply to area(s) 2 (two) times daily. [facility] cholecalcif catherine, vitamin D3, 25 mcg (1,000 unit) tablet 09-21 00:00: 00 10-22 04:59 :00 No [id number] 1000U Take 1 tablet by mouth in the morning for 30 days. [facility] foLIC acid 1 mg tablet 09-21 00:00: 00 10-22 04:59 :00 No [id number] 1mg Take 1 tablet by mouth in the morning for 30 days. [facility] KCL (KLOR-CON M20) tablet 40 mEq 09-20 14:30: 00 09-20 14:15 :00 No 40meq 40 mEq, Oral, ONCE, 1 dose, On 09/21/23 at 0930, Routine [facility] lisdexamfet amine (VYVANSE) 60 mg capsule 09-20 12:06: 59 Yes 60mg Take 1 capsule by mouth every morning. [facility] oxazepam (SERAX) capsule 15 mg [...] 09/22/23 at 1230, Routine [Order 2 End] [facility] benzonatate 100 mg capsule 09-20 00:00: 00 10-01 04:59 :00 No [id number] 100mg Take 1 capsule by mouth every 8 (eight) hours as needed for Cough for up to 10 days. [facility] zinc sulfate 50 mg zinc (220 mg) capsule 09-20 00:00: 00 10-01 04:59 :00 No [id number] 50mg Take 1 capsule by mouth in the morning and 1 capsule at noon and 1 capsule in the evening. Do all this for 10 days. [facility] amoxicillin -clavulanat e 875-125 mg per tablet 09-20 00:00: 00 09-26 04:59 :00 No [id number] 1{tbl} Take 1 tablet by mouth in the morning and 1 tablet in the evening. Do all this for 5 days. [facility] dexAMETHaso ne 4 mg tablet 09-20 00:00: 00 09-26 04:59 :00 No [id number] 6mg Take 1.5 tablets by mouth every 12 (twelve) hours for 5 days. [facility] cefTRIAXone (ROCEPHIN) 1,000 mg in NaCl 0.9% (NS) 100 mL MINI-BAG 09-19 23:30: 00 09-24 23:29 :00 No 1000mg 1,000 mg, IV Piggyback, Q24H ABX, 5 doses, First dose on Sat09/20/23 at 1830, Last dose on Sat09/24/23 at 1830, Administer over 30 Minutes, 100 mL, Reason for Anti-Infec tive: Documented Infection, Documented Infection Site: Respirator y, Duration of Therapy: 7 days [facility] cholecalcif catherine (vitamin D3) tablet 1,000 Units 09-19 14:00: 00 Yes 1000U 1,000 Units, Oral, DAILY, First dose on Sat09/20/23 at 0900, Until Discontinu ed, Routine [facility] metoprolol succinate XL (TOPROL XL) tablet 25 mg 09-19 14:00: 00 Yes 25mg 25 mg, Oral, DAILY, First dose on Sat09/20/23 at 0900, Until Discontinu ed, Routine [facility] foLIC acid (FOLATE) tablet 1 mg 09-19 14:00: 00 Yes 1mg 1 mg, Oral, DAILY, First dose on Sat09/20/23 at 0900, Until Discontinu ed, Routine [facility] enoxaparin (LOVENOX) injection 40 mg 09-19 14:00: 00 Yes 40mg 40 mg, Subcutaneo us, DAILY, First dose on Sat09/20/23 at 0900, Until Discontinu ed, Routine [facility] zinc sulfate (ORAZINC) capsule 50 mg 09-19 13:00: 00 Yes 50mg 50 mg, Oral, TID, First dose on Sat09/20/23 at 0800, Until Discontinu ed, Routine [facility] ascorbic acid (vitamin C) (VITAMIN C) tablet 500 mg 09-19 13:00: 00 Yes 500mg 500 mg, Oral, BID, First dose on Sat09/20/23 at 0800, Until Discontinu ed, Routine [facility] ipratropium -albuteroL (DUONEB) 0.5 mg-3 mg(2.5 mg base)/3 mL nebulizer solution 3 mL 09-19 13:00: 00 09-19 14:58 :45 No 3mL 3 mL, Inhalation , QID, First dose on Sat09/20/23 at 0800, Until Discontinu ed, Routine [facility] ipratropium -albuteroL (DUONEB) 0.5 mg-3 mg(2.5 mg base)/3 mL nebulizer solution 3 mL 09-19 12:32: 50 Yes 3mL 3 mL, Inhalation , QIDPRN, Starting on Sat09/20/23 at 0732, Until Discontinu ed, Routine, Wheezing, Shortness of Breath, Bronchospa sm, Chest tightness [facility] azithromyci n (ZITHROMAX) 500 mg [...] Respirator y, Duration of therapy: 5 days [facility] dexamethaso ne sod phos PF injection 6 mg 09-19 03:00: 00 Yes 6mg 6 mg, Intravenou s, DAILY, First dose (after last modificati on) on Sat09/19/23 at 2200, Until Discontinu ed, [address] [facility] benzocaine- menthoL (CEPACOL SORE THROAT (VENITA-MEN)) lozenge 1 Lozenge 09-19 02:44: 39 Yes 1{lozen ge} 1 Lozenge, Oral, Q4HPRN, Starting on Sat09/19/23 at 2144, Until Discontinu ed, Routine, [facility] ben[facility] (TESSALON PERLES) capsule 100 mg 09-19 02:44: 33 Yes 100mg 100 mg, Oral, Q8HPRN, Starting on Sat09/19/23 at 2144, Until Discontinu ed, Routine, Cough [facility] codeine-gua ifenesin (ROBITUSSIN AC) 10-100 mg/5 mL oral solution 5 mL 09-19 02:44: 22 Yes 5mL 5 mL, Oral, Q6HPRN, Starting on Sat09/19/23 at 2144, Until Discontinu ed, Routine, Cough [facility] NaCl 0.9% (NS) IV infusion 1,000 mL 09-18 23:15: 00 09-19 22:10 :01 No 1000mL at 125 mL/hr, IV Infusion, CONTINUOUS , Starting on Sat09/19/23 at 1815, Until Sat09/20/23 at 1710, Routine [facility] oxazepam (SERAX) capsule 15 mg 09-18 23:05: 39 Yes 15mg 15 mg, Oral, Q4HPRN, Starting on Sat09/19/23 at 1805, Until Discontinu ed, Routine, Only while awake for DBP equal to or greater than 100, HR equal to or greater than 100. [facility] ondansetron (ZOFRAN (PF)) injection 4 mg 09-18 23:05: 04 Yes [address] [facility] HYDROcodone -acetaminop hen (NORCO 5) 5-325 mg tablet 1 tablet 09-18 23:04: 59 09-20 23:03 :59 No 1{tbl} 1 tablet, Oral, Q6HPRN, Starting on [place] 09/19/23 at 1804, Until 09/21/23 at 1803, Routine, Pain (scale 4-6) [facility] acetaminoph en (TYLENOL) tablet 650 mg 09-18 23:04: 44 Yes 650mg 650 mg, Oral, Q6HPRN, Starting on Sat09/19/23 at 1804, Until Discontinu ed, Routine, Pain (scale 1-3) [facility] ondansetron (ZOFRAN (PF)) injection 4 mg 09-18 21:15: 00 09-18 20:11 :00 No 4mg 4 mg, Slow IV Push, ONCE, 1 dose, On [place] 09/19/23 at 1615, CECILIA [facility] acetaminoph en (TYLENOL) tablet 1,000 mg 09-18 21:00: 00 09-18 20:58 :00 No 1000mg 1,000 mg, Oral, ONCE, 1 dose, On [place] 09/19/23 at 1600, Routine [facility] NaCl 0.9% (NS) bolus infusion 1,000 mL 09-18 19:45: 00 09-18 20:11 :00 No 1000mL at 999 mL/hr, 1,000 mL, IV Infusion, ONCE, 1 dose, On Sat09/19/23 at 1445, STAT [facility] magnesium sulfate in water 2 gram/50 mL (4 %) infusion 2 g 09-18 18:00: 00 09-18 18:21 :00 No 2g 2 g, IV Piggyback, Administer over 60 Minutes, ONCE, 1 dose, On Sat09/19/23 at 1300, Routine [facility] NaCl 0.9% (NS) bolus infusion 1,566 mL 09-18 18:00: 00 09-18 20:11 :00 No 30mL/kg at 999 mL/hr, 1,566 mL (30 mL/kg ?52.2 kg), IV Infusion, ONCE, 1 dose, On [place] 09/19/23 at 1300, STAT [facility] ondansetron (ZOFRAN (PF)) injection 4 mg 09-18 18:00: 00 09-18 17:05 :00 No 4mg 4 mg, Slow IV Push, ONCE, 1 dose, On [place] 09/19/23 at 1300, [facility] LORazepam (ATIVAN) injection 1 mg 09-18 17:00: 09-18 17:05 :00 No 1mg 1 mg, Slow IV Push, ONCE, 1 dose, On [place] 09/19/23 at 1200, [facility] NaCl 0.9% (NS) bolus infusion 1,000 mL 09-14 17:30: 09-14 18:27 :00 No 1000mL at 999 mL/hr, 1,000 mL, IV Infusion, ONCE, 1 dose, On Sat09/15/23 at 1230, [facility] iopamidol (ISOVUE 370-500 mL) injection 80 mL 09-14 17:15: 09-14 17:30 :00 No [id number] 80mL 80 mL, Intravenou s, ONCE, 1 dose, On Sat09/15/23 at 1230, Routine [facility] NaCl 0.9% (NS) bolus infusion 1,000 mL 09-13 00:1509-13 01:01 :00 No [id number] 1000mL at 999 mL/hr, 1,000 mL, IV Infusion, ONCE, 1 dose, On Sat09/13/23 at 1915, [facility] acetaminoph en (TYLENOL) tablet 650 mg 09-13 00:15: 00 09-12 23:34 :00 No [id number] 650mg 650 mg, Oral, ONCE, 1 dose, On Sat09/13/23 at 1915, [facility] Vyvanse 60 MG Vyvanse 60 MG 3- [...] % Vyvanse 60 MG Vyvanse 60 MG 0 2-20 00:00: 00 No 1{capsu le_in_t he_morn [...] 5 % cream 1- 00:00: 00 Yes [id number] Apply cream from neck down, leave on for 8-14 h, repeat in 2 wks [facility] permethrin 5 % cream - 00:00: 00 Yes [id number] As directed. [facility] hydrOXYzine 25 mg tablet - 00:00: 00 05-06 05:59 :00 No [id number] 25mg Take 1 tablet by mouth 3 (three) times daily as needed for Itching for up to 5 days. [facility] foLIC acid 1 mg tablet 04-28 00:00: 00 05-29 05:59 :00 No [id number] 1mg Take 1 tablet by mouth in the morning for 30 days. [facility] thiamine 100 mg tablet 04-28 00:00: 00 05-29 05:59 :00 No [id number] 100mg Take 1 tablet by mouth in the morning for 30 days. [facility] oxazepam (SERAX) capsule 10 mg 04-27 19:15: 00 04-28 19:14 :00 No 10mg 10 mg, Oral, Q12H TAPER, 2 doses, First dose (after last modificati on) on 04/27/23 at 1315, Last dose on Sat04/28/23 at 0115, Routine [facility] KCL (KLOR-CON M20) tablet 40 mEq 04-27 15:00: 00 Yes 40meq 40 mEq, Oral, DAILY, First dose on 04/27/23 at 0900, Until Discontinu ed, Routine [facility] metoprolol succinate XL (TOPROL XL) tablet 12.5 mg 04-27 15:00: 00 Yes 12.5mg 12.5 mg, Oral, DAILY, First dose on 04/27/23 at 0900, Until Discontinu ed, Routine [facility] magnesium oxide (MAG-OX 400) tablet 800 mg 04-27 15:00: 00 04-30 14:59 :00 No 800mg 800 mg, Oral, DAILY, 3 doses, First dose on 04/27/23 at 0900, Last dose on Sat04/29/23 at 0900, Routine [facility] lisdexamfet amine (VYVANSE) 60 mg capsule 04-27 09:58: 30 Yes 60mg Take 1 capsule by mouth every morning. [facility] LISINOPRIL ORAL 04-27 08:55: 37 04-27 00:00 :00 No Take by mouth. [facility] KCL 20 mEq tablet 04-27 00:00: 00 05-05 05:59 :00 No [id number] 20meq Take 1 tablet by mouth in the morning for 7 days. [facility] magnesium oxide 420 mg Tab 04-27 00:00: 00 05-05 05:59 :00 No [id number] 400mg Take 400 mg by mouth in the morning for [address] [facility] NaCl 0.9% (NS) IV infusion 1,000 mL 04-26 20:00: 00 Yes 1000mL at 150 mL/hr, IV Infusion, CONTINUOUS , Starting on Sat04/26/23 at 1400, Until Discontinu ed, Routine
Resume after banana bag is completed< br> [facility] metoprolol tartrate (LOPRESSOR) tablet 12.5 mg 04-26 20:00: 00 04-27 14:52 :31 No 12.5mg 12.5 mg, Oral, BID, First dose on Sat04/26/23 at 1400, Until Discontinu ed, Routine [facility] magnesium sulfate in water 4 gram/50 mL (8 %) IV Piggyback 4 g 04-26 15:15: 00 04-26 20:54 :00 No 4g 4 g, IV Piggyback, at 25 mL/hr Administer over 120 Minutes, ONCE, 1 dose, On Sat04/26/23 at 0915, CECILIA [facility] potassium chloride in water 10 mEq/100 mL RTU 10 mEq 04-26 14:45: 00 04-26 18:54 :00 No 10meq 10 mEq, IV Piggyback, Q1H, 4 doses, First dose on Sat04/26/23 at 0845, Last dose on Sat04/26/23 at 1100, Administer over 60 Minutes, [address] [facility] diazePAM (VALIUM) injection 10 mg 04-25 16:47: 50 Yes 10mg 10 mg, Intravenou s, Q6HPRN, Starting on Sat04/25/23 at 1047, Until Discontinu ed, Routine, Agitation, Withdrawl [facility] foLIC acid (FOLATE) tablet 1 mg 04-25 15:00: 00 Yes 1mg 1 mg, Oral, DAILY, First dose on Sat04/25/23 at 0900, Until Discontinu ed, Routine [facility] thiamine (VITAMIN B1) tablet 100 mg 04-25 15:00: 00 Yes 100mg 100 mg, Oral, DAILY, First dose on [place] 04/25/23 at 0900, Until Discontinu ed, Routine [facility] enoxaparin (LOVENOX) injection 40 mg 04-25 15:00: 00 Yes 40mg 40 mg, Subcutaneo us, DAILY, First dose on [place] 04/25/23 at 0900, Until Discontinu ed, Routine [facility] oxazepam (SERAX) capsule 15 mg 04-25 13:10: 47 Yes 15mg 15 mg, Oral, Q4HPRN, Starting on [place] 04/25/23 at 0710, Until Discontinu ed, Routine, Only while awake for DBP equal to or greater than 100, HR equal to or greater than 100. [facility] potassium chloride in water 10 mEq/100 mL RTU 10 mEq 04-25 13:00: 00 04-25 19:57 :00 No 10meq 10 mEq, IV Piggyback, Q1H, 6 doses, First dose on [place] 04/25/23 at 0700, Last dose on [place] 04/25/23 at 1200, Administer over 60 Minutes, 100 mL [facility] dexMEDEtomi dine 200 mcg in [...] at maximum allowed dose, contact prescriber .
[facility] thiamine (VITAMIN B1) 100 mg, foLIC acid (FOLATE) 1 mg, multivitami n adult (INFUVITE ADULT) 3,300 unit- 150 mcg/10 mL 10 mL in D5W 0.45% NaCl (1/2NS) IV Solution 04-25 06:15: 00 04-25 06:51 :35 No IV Infusion, at 150 mL/hr, ONCE, 1 dose, On [place] 04/25/23 at 0015, 1,000 mL [facility] NaCl 0.9% (NS) IV infusion 1,000 mL 04-25 05:30: 00 04-26 19:52 :00 No 1000mL at 125 mL/hr, IV Infusion, CONTINUOUS , Starting on Sat04/24/23 at 2330, Until Sat04/26/23 at 1352, Routine
Resume after banana bag is completed< br> [facility] NaCl 0.9% (NS) IV infusion 1,000 mL 04-25 03:45: 00 04-25 05:27 :44 No 1000mL at 125 mL/hr, IV Infusion, CONTINUOUS , Starting on Sat04/24/23 at 2145, Until Sat04/24/23 at 2327, Routine [facility] haloperidol lactate (HALDOL) injection 2 mg 04-25 03:42: 43 Yes 2mg 2 mg, Slow IV Push, Q6HPRN, Starting on Sat04/24/23 at 2142, Until Discontinu ed, Routine, Sedation, Psychosis [facility] ondansetron (ZOFRAN (PF)) injection 4 mg 04-25 03:41: 50 Yes 4mg 4 mg, Slow IV Push, Q4HPRN, Starting on Sat04/24/23 at 2141, Until Discontinu ed, Routine, Nausea and Vomiting (N/V) [facility] acetaminoph en (TYLENOL) tablet 650 mg 04-25 03:41: 07 Yes 650mg 650 mg, Oral, Q6HPRN, Starting on Sat04/24/23 at 2141, Until Discontinu ed, Routine, Pain (scale 1-3) [facility] cefTRIAXone (ROCEPHIN) 1,000 mg in NaCl 0.9% (NS) 100 mL MINI-BAG 04-25 02:45: 00 04-25 03:06 :00 No 1000mg 1,000 mg, IV Piggyback, ONCE, 1 dose, On Sat04/24/23 at 2045, Administer over 30 Minutes, 100 mL
Reas on for Anti-Infec tive: Documented Infection< br>Documen colleen Infection Site: Urine
D uration of Therapy: Other (see Comments) [facility] iopamidol (ISOVUE 370-500 mL) injection 85 mL 04-25 02:15: 00 04-25 02:15 :00 No 85mL 85 mL, Intravenou s, ONCE, 1 dose, On Sat04/24/23 at 2015, Routine [facility] NaCl 0.9% (NS) bolus infusion 1,000 mL 04-24 23:15: 00 04-25 02:47 :00 No 1000mL at 999 mL/hr, 1,000 mL, IV Infusion, ONCE, 1 dose, On Sat04/24/23 at 1715, STAT [facility] diazePAM (VALIUM) tablet 2.5 mg 04-24 23:15: 00 04-24 23:58 :00 No 2.5mg 2.5 mg, Oral, ONCE, 1 dose, On Sat04/24/23 at 1715, CECILIA [facility] magnesium sulfate in water 2 gram/50 mL (4 %) infusion 2 g 04-24 23:00: 00 04-24 23:58 :00 No 2g 2 g, IV Piggyback, Administer over 60 Minutes, ONCE, 1 dose, On Sat04/24/23 at 1700, Routine [facility] thiamine (VITAMIN B1) injection 100 mg 04-24 22:15: 00 04-24 22:58 :00 No 100mg 100 mg, Slow IV Push, ONCE, 1 dose, On [facility]04/24/23 at 1615[facility] Vyvanse [...] 12-12 09:09: 49 Yes Take by mouth. [facility] lisdexamfet amine (VYVANSE) 60 mg capsule 12-12 09:09: 24 Yes 60mg Take 1 capsule by mouth every morning. [facility] oxazepam (SERAX) capsule 15 mg 11-14 08:09: 00 11-15 08:14 :00 No 15mg 15 mg, Oral, Q12H TAPER, 2 doses, First dose on Sat11/14/22 at 0315, Last dose on Sat11/14/22 at 1515, Routine [facility] lisdexamfet amine (VYVANSE) 60 mg capsule 11-13 18:24: 40 Yes 60mg Take 1 capsule by mouth every morning. [facility] potassium phosphate 15 mmol in NaCl 0.9% (NS) 150 mL piggyback 11-13 14:30: 00 11-13 19:51 :00 No 15mmol 15 mmol, IV Piggyback, ONCE, 1 dose, On Sat11/13/22 at 0930, 150 mL [facility] sennosides (SENOKOT) tablet 8.6 mg 11-12 14:00: 00 Yes 8.6mg 8.6 mg, Oral, DAILY, First dose on Sat11/12/22 at 0900, Until Discontinu ed, Routine [facility] D5W 0.45% NaCl (1/2NS) IV infusion 1,000 mL 11-12 13:30: 00 11-12 14:54 :49 No 1000mL at 100 mL/hr, 1,000 mL, IV Infusion, ONCE, 1 dose, On Sat11/12/22 at 0830, Routine [facility] acetaminoph en (TYLENOL) tablet 500 mg 11-12 03:43: 02 Yes 500mg 500 mg, Oral, Q6HPRN, Starting on Sat11/11/22 at 2243, Until Discontinu ed, Routine, Pain (scale 1-3) [facility] oxazepam (SERAX) capsule 15 mg 11-12 02:09: 00 Yes 15mg 15 mg, Oral, Q4HPRN, Starting on Sat11/11/22 at 2109, Until Discontinu ed, Routine, Only while awake for DBP equal to or greater than 100, HR equal to or greater than 100. [facility] D5W 0.9% NaCl (NS) 1 L + KCL 20 mEq 11-11 19:15: 00 11-12 12:42 :08 No IV Infusion, at 100 mL/hr, CONTINUOUS , Starting on Sat11/11/22 at 1415, Until Sat11/12/22 at 0742, Routine [facility] multivitami n oral solution 15 mL 11-11 18:15: 00 Yes 15mL 15 mL, Oral, DAILY, First dose on Sat11/11/22 at 1315, Until Discontinu ed, Routine [facility] potassium chloride in water (KCL) 20 mEq/100 mL RTU IVPB 20 mEq 11-11 10:45: 00 11-11 16:30 :00 No 20meq 20 mEq, IV Infusion, Q2H ES, 2 doses, First dose on Sat11/11/22 at 0545, Last dose on Sat11/11/22 at 0745, 100 mL [facility] glucagon (GLUCAGEN DIAGNOSTIC KIT) injection 1 mg 11-11 10:16: 15 Yes 1mg 1 mg, Intramuscu lar, PRN, Starting on Sat11/11/22 at 0516, Until Discontinu ed, CECILIA, Blood Glucose < or = 70 mg/dL and patient is NPO, unable to swallow or has mental changes. [facility] dextrose 50 % in water (D50W) injection 25 mL 11-11 10:16: 15 Yes 25mL 25 mL, Slow IV Push, PRN, Starting on Sat11/11/22 at 0516, Until Discontinu ed, CECILIA, Blood Glucose < or = 70 mg/dL and patient is NPO, unable to swallow or has mental status changes. [facility] NaCl 0.9% (NS) IV infusion 1,000 mL 11-11 01:30: 00 11-11 17:57 :28 No 1000mL at 100 mL/hr, IV Infusion, CONTINUOUS , Starting on 11/10/22 at 2030, Until Sat11/11/22 at 1257, Routine [facility] heparin (porcine) injection 5,000 Units 11-11 01:00: 00 Yes 5000U 5,000 Units, Subcutaneo us, Q12H, First dose on 11/10/22 at 2000, Until Discontinu ed, Routine [facility] magnesium sulfate in water 2 gram/50 mL (4 %) infusion 2 g 11-11 00:45: 00 11-11 04:01 :00 No 2g 2 g, IV Piggyback, Administer over 60 Minutes, ONCE, 1 dose, On 11/10/22 at 1945, Routine [facility] dexMEDEtomi dine 200 mcg in [...] at maximum allowed dose, contact prescriber .
[facility] foLIC acid (FOLATE) injection 1 mg 11-11 00:00: 00 Yes 1mg 1 mg, Intramuscu lar, DAILY, First dose on 11/10/22 at 1900, Until Discontinu ed, Routine [facility] thiamine (VITAMIN B1) 100 mg in NaCl 0.9% (NS) piggyback 11-11 00:00: 00 11-15 13:59 :00 No 100mg IV Piggyback, DAILY, 5 doses, First dose on Sat11/10/22 at 1900, Last dose on Sat11/14/22 at 0900, 50 mL [facility] LORazepam (ATIVAN) injection 1 mg 11-10 23:43: 00 11-12 02:09 :22 No 1mg 1 mg, Slow IV Push, TIDPRN, Starting on 11/10/22 at 1843, Until 11/11/22 at 2109, Routine, Seizures [facility] diazePAM (VALIUM) injection 10 mg 11-10 23:15: 00 11-10 23:17 :00 No 10mg 10 mg, Slow IV Push, ONCE, 1 dose, On 11/10/22 at 1815, STAT [facility] proMETHazin e (PHENERGAN) 25 mg in NaCl 0.9% (NS) 50 mL piggyback 11-10 23:15: 00 11-10 23:19 :00 No 25mg 25 mg, IV Piggyback, ONCE, 1 dose, On 11/10/22 at 1815, 50 mL [facility] LORazepam (ATIVAN) injection 2 mg 11-10 23:00: 00 11-10 23:10 :00 No 2mg 2 mg, Slow IV Push, ONCE, 1 dose, On 11/10/22 at 1800, STAT [facility] LORazepam (ATIVAN) injection 1 mg 11-10 22:15: 00 11-10 22:26 :00 No 1mg 1 mg, Slow IV Push, ONCE, 1 dose, On 11/10/22 at 1715, STAT [facility] lisinopriL 2.5 mg tablet 11-08 00:00: 00 12-09 04:59 :00 No [id number] 2.5mg Take 1 tablet by mouth in the morning for 30 days. [facility] magnesium sulfate in water 2 gram/50 mL (4 %) infusion 2 g 11-07 15:00: 00 11-07 15:40 :00 No 2g 2 g, IV Piggyback, Administer over 60 Minutes, ONCE, 1 dose, On Sat11/07/22 at 1000, Routine [facility] lisdexamfet amine (VYVANSE) 60 mg capsule 11-07 14:54: 12 Yes 60mg Take 1 capsule by mouth every morning. [facility] lisinopriL (PRINIVIL,Z ESTRIL) tablet 2.5 mg 11-07 14:15: 00 Yes 2.5mg 2.5 mg, Oral, DAILY, First dose on Sat11/07/22 at 0915, Until Discontinu ed, Routine [facility] enoxaparin (LOVENOX) injection 40 mg 11-06 22:00: 00 Yes 40mg 40 mg, Subcutaneo us, DAILY, First dose on Sat11/06/22 at 1700, Until Discontinu ed, Routine [facility] pantoprazol e (PROTONIX) EC tablet 40 mg 11-06 14:00: 00 Yes 40mg 40 mg, Oral, DAILY, First dose on Sat11/06/22 at 0900, Until Discontinu ed, Routine [facility] metoprolol succinate XL (TOPROL XL) tablet 25 mg 11-06 14:00: 00 Yes 25mg 25 mg, Oral, DAILY, First dose on Sat11/06/22 at 0900, Until Discontinu ed, Routine [facility] docusate (COLACE) capsule 100 mg 11-06 13:00: 00 Yes 100mg 100 mg, Oral, BID, First dose on Sat11/06/22 at 0800, Until Discontinu ed, Routine [facility] D5W 0.9% NaCl (NS) IV infusion 1,000 mL 11-06 12:15: 00 11-08 12:14 :00 No 1000mL at 200 mL/hr, 1,000 mL, IV Infusion, CONTINUOUS , Starting on Sat11/06/22 at 0715, Until Sat11/08/22 at 0714, [facility] 0.[facility]% NaCl (NS) IV infusion 1,000 mL 11-06 11:30: 00 11-06 12:13 :19 No 1000mL at 200 mL/hr, 1,000 mL, IV Infusion, CONTINUOUS , Starting on Sat11/06/22 at 0630, Until Sat11/06/22 at 0713, [facility] ondansetron (ZOFRAN (PF)) injection 4 mg 11-06 10:31: 07 Yes 4mg 4 mg, Slow IV Push, Q6HPRN, Starting on Sat11/06/22 at 0531, Until Discontinu ed, Routine, Nausea and Vomiting (N/V) [facility] bisacodyL (DULCOLAX) tablet 10 mg 11-06 10:31: 02 Yes 10mg 10 mg, Oral, QDAILYPRN, Starting on Sat11/06/22 at 0531, Until Discontinu ed, Routine, Constipati on [facility] FENTanyl PF (SUBLIMAZE (PF)) injection 25 mcg 11-06 10:30: 33 11-07 10:29 :33 No 25ug 25 mcg, Slow IV Push, Q4HPRN, Starting on Sat11/06/22 at 0530, Until Sat11/07/22 at 0529, Routine, Pain (scale 7-10) [facility] acetaminoph en (TYLENOL) tablet 650 mg 11-06 10:29: 53 Yes 650mg 650 mg, Oral, Q6HPRN, Starting on Sat11/06/22 at 0529, Until Discontinu ed, Routine, Pain (scale 1-3) [facility] foLIC acid (FOLATE) 5 mg in NaCl 0.9% (NS) piggyback 11-06 10:15: 00 11-06 10:35 :00 No 5mg IV Piggyback, ONCE NOW, 1 dose, On Sat11/06/22 at 0515, 50 mL [facility] thiamine (VITAMIN B1) 100 mg in NaCl 0.9% (NS) piggyback 11-06 10:15: 00 11-06 10:45 :00 No 100mg IV Piggyback, ONCE NOW, 1 dose, On Sat11/06/22 at 0515, 50 mL [facility] NaCl 0.9% (NS) bolus infusion 1,000 mL 11-06 09:00: 00 11-06 09:11 :00 No 1000mL at 999 mL/hr, 1,000 mL, IV Piggyback, ONCE, 1 dose, On Sat11/06/22 at 0400, STAT [facility] morpHINE (4 mg/mL) injection 4 mg 11-06 09:00: 00 11-06 08:54 :00 No 4mg 4 mg, Slow IV Push, ONCE, 1 dose, On Sat11/06/22 at 0400, STAT [facility] iopamidol (ISOVUE 370-500 mL) injection 70 mL 11-06 07:45: 00 11-06 06:58 :00 No [id number] 70mL 70 mL, Intravenou s, ONCE, 1 dose, On Sat11/06/22 at 0245, Routine [facility] ketorolac (TORADOL) injection 30 mg 11-06 07:30: 00 11-06 06:33 :00 No 30mg 30 mg, Slow IV Push, ONCE, 1 dose, On Sat11/06/22 at 0230, Routine [facility] NaCl 0.9% (NS) bolus infusion 1,000 mL 11-06 07:15: 00 11-06 08:11 :00 No 1000mL at 999 mL/hr, 1,000 mL, IV Infusion, ONCE, 1 dose, On Sat11/06/22 at 0215, CECILIA [facility] FENTanyl PF (SUBLIMAZE (PF)) injection 50 mcg 11-06 07:15: 00 11-06 06:34 :00 No 50ug 50 mcg, Slow IV Push, ONCE, 1 dose, On Sat11/06/22 at 0215, Routine [facility] ondansetron (ZOFRAN (PF)) injection 4 mg 11-06 06:30: 00 11-06 06:34 :00 No 4mg 4 mg, Slow IV Push, ONCE, 1 dose, On Sat11/06/22 at 0130, CECILIA [facility] albuterol 90 mcg/actuati on inhaler 11-06 01:23: 41 11-06 00:00 :00 No 2{puff} Inhale 2 Puffs every 6 (six) hours as needed for Wheezing or Shortness of Breath. [facility] ibuprofen 600 mg tablet 11-06 01:23: 41 11-06 00:00 :00 No 600mg Take 600 mg by mouth in the morning. [facility] lisdexamfet amine (VYVANSE) 60 mg capsule 10-30 00:00: 00 11-06 00:00 :00 No 1 capsule in the morning Orally Once a day for 30 days [facility] doxycycline hyclate (Vibramycin ) capsule 100 mg 08-28 03:30: 00 08-28 03:50 :00 No 100mg 100 mg, Oral, ONCE, 1 dose, On Sat08/27/22 at 2230, CECILIA
Re ason for Anti-Infec tive: Documented Infection< br>Documen colleen Infection Site: Skin / Soft Tissue
Duration of Therapy: 10 days [facility] cephALEXin (KEFLEX) capsule 500 mg 08-28 03:30: 00 08-28 03:50 :00 No 500mg 500 mg, Oral, ONCE, 1 dose, On Sat08/27/22 at 2230, CECILIA
Re ason for Anti-Infec tive: Empiric Therapy for Suspected Infection< br>Empiric Therapy Site: Skin / Soft tissue
Duration of therapy: 5 days [facility] lisdexamfet amine (VYVANSE) 60 mg capsule 08-27 22:56: 45 Yes 60mg Take 1 capsule by mouth every morning. [facility] pantoprazol e 40 mg EC tablet 08-27 20:42: 39 08-27 00:00 :00 No 40mg Take 40 mg by mouth in the morning. [facility] lisdexamfet amine 50 mg capsule 08-27 20:42: 27 08-27 00:00 :00 No 50mg Take 50 mg by mouth every morning. [facility] doxycycline hyclate 100 mg capsule 08-27 00:00: 00 Yes [id number] 100mg Take 1 capsule by mouth in the morning and 1 capsule in the evening. [facility] cephALEXin (KEFLEX) 500 mg capsule 0 08-27 00:00: 00 09-04 04:59 :00 No [id number] 500mg Take 1 capsule by mouth in the morning and 1 capsule at noon and 1 capsule in the evening. Do all this for 7 days. [facility] cefTRIAXone Sodium cefTRIAXone Sodium 2022-0 -10 00:00: 00 No 1g [facility] cefTRIAXone Sodium cefTRIAXone Sodium 3-0 -10 00:00: 00 No 1g [facility] cefTRIAXone Sodium cefTRIAXone Sodium 2022-0 -10 00:00: 00 No 1g [facility] cefTRIAXone Sodium cefTRIAXone Sodium 2022-0 2-10 00:00: 00 No 1g [facility] cefTRIAXone Sodium cefTRIAXone Sodium 2022-0 2-10 00:00: 00 No 1g [facility] cefTRIAXone Sodium cefTRIAXone Sodium 2022-0 -10 00:00: 00 No 1g [facility] cefTRIAXone Sodium cefTRIAXone Sodium 3-0 2-10 00:00: 00 No 1g [facility] cefTRIAXone Sodium cefTRIAXone Sodium 2022-0 2-10 00:00: 00 No 1g [facility] cefTRIAXone Sodium cefTRIAXone Sodium 2022-0 2-10 00:00: 00 No 1g [facility] cefTRIAXone Sodium cefTRIAXone Sodium 3-0 2-10 00:00: 00 No 1g [facility] cefTRIAXone Sodium cefTRIAXone Sodium 3-0 2-10 00:00: 00 No 1g [facility] cefTRIAXone Sodium cefTRIAXone Sodium 3-0 2-10 00:00: 00 No 1g [facility] cefTRIAXone Sodium cefTRIAXone Sodium 3-0 2-10 00:00: 00 No 1g [facility] cefTRIAXone Sodium cefTRIAXone Sodium 3-0 2-10 00:00: 00 No 1g [facility] cefTRIAXone Sodium cefTRIAXone Sodium 3-0 2-10 00:00: 00 No 1g [facility] cefTRIAXone Sodium cefTRIAXone Sodium 3-0 2-10 00:00: 00 No 1g [facility] cefTRIAXone Sodium cefTRIAXone Sodium 2- 00:00: 00 No 1g [facility] cefTRIAXone Sodium cefTRIAXone Sodium 2- 00:00: 00 No 1g [facility] Vyvanse 60 MG Vyvanse 60 MG 1- 00:00: 00 No 1{capsu le_in_t he_morn ing} QD Vyvanse 60 MG iopamidol (ISOVUE 370-500 mL) injection 80 mL 2021-04 01:00: 00 04-13 00:03 :00 No [id number] 80mL 80 mL, Intravenou s, ONCE, 1 dose, On [place] 04/12/22 at 1900, Routine [facility] NaCl 0.9% (NS) bolus infusion 500 mL 2021-04 23:30: 00 04-12 23:47 :00 No 500mL at 999 mL/hr, 500 mL, IV Infusion, ONCE, 1 dose, On [place] 04/12/22 at 1730, CECILIA [facility] morpHINE (4 mg/mL) injection 4 mg 2021-04 22:45: 00 04-12 23:03 :00 No 4mg 4 mg, Slow IV Push, ONCE, 1 dose, On [place] 04/12/22 at 1645, STAT [facility] ampicillin- sulbactam (UNASYN) 3 g in NaCl 0.9% (NS) 100 mL MINI-BAG 2021-04 22:45: 00 04-12 23:34 :00 No 3g 3 g, IV Piggyback, ONCE, 1 dose, On [place] 04/12/22 at 1645, Administer over 30 Minutes, 100 mL
Reas on for Anti-Infec tive: Documented Infection< br>Documen colleen Infection Site: HEENT
D uration of Therapy: 7 days [facility] HYDROcodone -acetaminop hen 5-325 mg tablet 2021-04 00:00: 00 04-20 05:59 :00 No [id number] 1{tbl} Take 1 tablet by mouth every 6 (six) hours as needed for Pain (scale 7-10) for up to 7 days. Indication s: acute pain [facility] dexamethaso ne sod phos PF injection 10 mg 2021-04 06:30: 00 04-09 06:32 :00 No 10mg 10 mg, Oral, ONCE, 1 dose, On Sat04/09/22 at 0030, 1 mL [facility] Vyvanse 60 MG Vyvanse 60 [...] Take 50 mg by mouth every morning. [facility] pantoprazol e 40 mg EC tablet 11-13 15:00: 18 Yes 40mg Take 40 mg by mouth in the morning. [facility] ibuprofen 600 mg tablet 11-13 15:00: 18 Yes 600mg Take 600 mg by mouth in the morning. [facility] aspirin 325 mg tablet 11-13 00:00: 00 12-12 04:59 :00 No [id number] 325mg Take 1 tablet by mouth in the morning and 1 tablet in the evening. Take with meals. Do all this for 28 days. [facility] Medrol 4 MG Medrol 4 MG 10-17 [...] he_morn ing} QD Vyvanse 60 MG Nystatin [id number] UNIT/ML Nystatin [id number] UNIT/ML 20 00:00: 00 01-23 00:00 :00 No QID Nystatin [id number] UNIT/ML Vitamin B12 (Cyanocobal patel) Vitamin B12 (Cyanocobal patel) 2019-0 9-28 00:00: 00 No 1000ug [facility] Vitamin B12 (Cyanocobal patel) Vitamin B12 (Cyanocobal patel) 2019-0 9-28 00:00: 00 No 1000ug [facility] Vitamin B12 (Cyanocobal patel) Vitamin B12 (Cyanocobal patel) 2019-0 - 00:00: 00 No 1000ug [facility] Vitamin B12 (Cyanocobal patel) Vitamin B12 (Cyanocobal patel) 2019-0 9- 00:00: 00 No 1000ug [facility] Vitamin B12 (Cyanocobal patel) Vitamin B12 (Cyanocobal patel) 2019-0 9-28 00:00: 00 No 1000ug [facility] Vitamin B12 (Cyanocobal patel) Vitamin B12 (Cyanocobal patel) 2019-0 - 00:00: 00 No 1000ug [facility] Vitamin B12 (Cyanocobal patel) Vitamin B12 (Cyanocobal patel) 2019-0 9-28 00:00: 00 No 1000ug [facility] Vitamin B12 (Cyanocobal patel) Vitamin B12 (Cyanocobal patel) 2019-0 9-28 00:00: 00 No 1000ug [facility] Vitamin B12 (Cyanocobal patel) Vitamin B12 (Cyanocobal patel) 2019-0 9-28 00:00: 00 No 1000ug [facility] Vitamin B12 (Cyanocobal patel) Vitamin B12 (Cyanocobal patel) 2019-0 9-28 00:00: 00 No 1000ug [facility] Vitamin B12 (Cyanocobal patel) Vitamin B12 (Cyanocobal patel) 2019-0 9-28 00:00: 00 No 1000ug [facility] Vitamin B12 (Cyanocobal patel) Vitamin B12 (Cyanocobal patel) 2019-0 01-17 00:00: 00 No 1000ug [facility] Vitamin B12 (Cyanocobal patel) Vitamin B12 (Cyanocobal patel) 2020-0 01-17 00:00: 00 No 1000ug [facility] Vitamin B12 (Cyanocobal patel) Vitamin B12 (Cyanocobal patel) 2019-0 01-17 00:00: 00 No 1000ug [facility] Vitamin B12 (Cyanocobal patel) Vitamin B12 (Cyanocobal patel) 0 01-17 00:00: 00 No 1000ug [facility] Vitamin B12 (Cyanocobal patel) Vitamin B12 (Cyanocobal patel) 2019-0 01-17 00:00: 00 No 1000ug [facility] Vitamin B12 (Cyanocobal patel) Vitamin B12 (Cyanocobal patel) 2019-0 01-17 00:00: 00 No 1000ug [facility] Vitamin B12 (Cyanocobal patel) Vitamin B12 (Cyanocobal patel) 2019-0 01-17 00:00: 00 No 1000ug [facility] Vitamin B12 (Cyanocobal patel) Vitamin B12 (Cyanocobal patel) 2019-0 01-17 00:00: 00 No 1000ug [facility] Vitamin B12 (Cyanocobal patel) Vitamin B12 (Cyanocobal patel) 2019-0 01-17 00:00: 00 No 1000ug [facility] Vitamin B12 (Cyanocobal patel) Vitamin B12 (Cyanocobal patel) 2019-0 01-17 00:00: 00 No 1000ug [facility] Vitamin B12 (Cyanocobal patel) Vitamin B12 (Cyanocobal patel) 2019-0 01-17 00:00: 00 No 1000ug [facility] Vitamin B12 (Cyanocobal patel) Vitamin B12 (Cyanocobal patel) 2019-0 01-17 00:00: 00 No 1000ug [facility] Vitamin B12 (Cyanocobal patel) Vitamin B12 (Cyanocobal patel) 0 01-17 00:00: 00 No 1000ug [facility] Medrol Medrol 2019-0 8-18 00:00: 00 12-13 00:00 :00 No Leander Shepard as directed [facility] Solumedrol 125mg/2ml Solumedrol 125mg/2ml 0 8-17 00:00: 00 No 42mg [facility] Solumedrol 125mg/2ml Solumedrol 125mg/2ml 0 8-17 00:00: 00 No 42mg [facility] Solumedrol 125mg/2ml Solumedrol 125mg/2ml 0 8- 00:00: 00 No 42mg [facility] Solumedrol 125mg/2ml Solumedrol 125mg/2ml 2019-0 8- 00:00: 00 No 42mg [facility] Solumedrol 125mg/2ml Solumedrol 125mg/2ml 0 8- 00:00: 00 No 42mg [facility] Solumedrol 125mg/2ml Solumedrol 125mg/2ml 0 8-17 00:00: 00 No 42mg [facility] Solumedrol 125mg/2ml Solumedrol 125mg/2ml 0 8-17 00:00: 00 No 42mg [facility] Solumedrol 125mg/2ml Solumedrol 125mg/2ml 0 8-17 00:00: 00 No 42mg [facility] Solumedrol 125mg/2ml Solumedrol 125mg/2ml 0 8-17 00:00: 00 No 42mg [facility] Solumedrol 125mg/2ml Solumedrol 125mg/2ml 2019-0 8-17 00:00: 00 No 42mg [facility] Solumedrol 125mg/2ml Solumedrol 125mg/2ml 2019-0 8-17 00:00: 00 No [facility]mg [facility] Solumedrol 125mg/2ml Solumedrol 125mg/2ml 2019-0 8-17 00:00: 00 No [facility] Solumedrol 125mg/2ml Solumedrol 125mg/2ml 2019-0 8-17 00:00: 00 No [facility] Solumedrol 125mg/2ml Solumedrol 125mg/2ml 2019-0 8-17 00:00: 00 No [facility] Solumedrol 125mg/2ml Solumedrol 125mg/2ml 2019-0 8-17 00:00: 00 No 42mg [facility] Solumedrol 125mg/2ml Solumedrol 125mg/2ml 2019-0 8-17 00:00: 00 No 42mg [facility] Solumedrol 125mg/2ml Solumedrol 125mg/2ml 2019-0 8-17 00:00: 00 No [facility] Solumedrol 125mg/2ml Solumedrol 125mg/2ml 2019-0 8-17 00:00: 00 No 42mg [facility] Solumedrol 125mg/2ml Solumedrol 125mg/2ml 2019-0 8-17 00:00: 00 No 42mg [facility] Solumedrol 125mg/2ml Solumedrol 125mg/2ml 2019-0 8-17 00:00: 00 No [facility] Solumedrol 125mg/2ml Solumedrol 125mg/2ml 2019-0 8-17 00:00: 00 No 42mg [facility] Solumedrol 125mg/2ml Solumedrol 125mg/2ml 2019-0 8-17 00:00: 00 No 42mg [facility] Solumedrol 125mg/2ml Solumedrol 125mg/2ml 2019-0 8-17 00:00: 00 No 42[facility] Solumedrol 125mg/2ml Solumedrol 125mg/2ml 0 12-06 00:00: 00 No 42mg [facility] metoprolol succinate XL 25 mg 24 hr tablet 0 11-05 00:00: 00 Yes [id number] 25mg Take 1 tablet by mouth daily. [facility] Kenalog (Triamcinol one) Kenalog (Triamcinol one) 0 08-14 00:00: 00 No 40mg [facility] Kenalog (Triamcinol one) Kenalog (Triamcinol one) 0 08-14 00:00: 00 No 40mg [facility] Kenalog (Triamcinol one) Kenalog (Triamcinol one) 0 08-14 00:00: 00 No 40mg [facility] Kenalog (Triamcinol one) Kenalog (Triamcinol one) 0 08-14 00:00: 00 No 40[facility] Kenalog (Triamcinol one) Kenalog (Triamcinol one) 0 08-14 00:00: 00 No 40mg [facility] Kenalog (Triamcinol one) Kenalog (Triamcinol one) 0 08-14 00:00: 00 No 40mg [facility] Kenalog (Triamcinol one) Kenalog (Triamcinol one) 0 08-14 00:00: 00 No 40[facility] Kenalog (Triamcinol one) Kenalog (Triamcinol one) 0 08-14 00:00: 00 No 40[facility] Kenalog (Triamcinol one) Kenalog (Triamcinol one) 0 08-14 00:00: 00 No 40[facility] Kenalog (Triamcinol one) Kenalog (Triamcinol one) 0 08-14 00:00: 00 No 40[facility] Kenalog (Triamcinol one) Kenalog (Triamcinol one) 0 08-14 00:00: 00 No 40[facility] Kenalog (Triamcinol one) Kenalog (Triamcinol one) 0 08-14 00:00: 00 No 40[facility] Kenalog (Triamcinol one) Kenalog (Triamcinol one) 0 08-14 00:00: 00 No 40[facility] Center Kenalog (Triamcinol one) Kenalog (Triamcinol one) 0 08-14 00:00: 00 No 40[facility] Center Kenalog (Triamcinol one) Kenalog (Triamcinol one) 0 08-14 00:00: 00 No 40[facility] Kenalog (Triamcinol one) Kenalog (Triamcinol one) 0 08-14 00:00: 00 No 40mg [facility] Center Kenalog (Triamcinol one) Kenalog (Triamcinol one) 0 08-14 00:00: 00 No 40[facility] Center Kenalog (Triamcinol one) Kenalog (Triamcinol one) 0 08-14 00:00: 00 No 40[facility] Center Kenalog (Triamcinol one) Kenalog (Triamcinol one) 0 08-14 00:00: 00 No 40[facility] Center Kenalog (Triamcinol one) Kenalog (Triamcinol one) 0 08-14 00:00: 00 No 40mg [facility] Center Kenalog (Triamcinol one) Kenalog (Triamcinol one) 0 08-14 00:00: 00 No 40mg [facility] Center Kenalog (Triamcinol one) Kenalog (Triamcinol one) 0 08-14 00:00: 00 No 40mg [facility] Center Kenalog (Triamcinol one) Kenalog (Triamcinol one) 08-14 00:00: 00 No 40mg [facility] Kenalog (Triamcinol one) Kenalog (Triamcinol one) 08-14 00:00: 00 No 40mg [facility] Pantoprazol e Sodium 40 MG Pantoprazol [...] Comments Source TD Pres-Free 2023-10-18 00:00:00 Completed [facility] TD Pres-Free 2023-10-18 00:00:00 Completed [facility] TD Pres-Free 2023-10-18 00:00:00 Completed [facility] Influenza High Dose 2022-02-11 00:00:00 Completed [facility] Influenza High Dose 2022-02-11 00:00:00 Completed [facility] Influenza High Dose 2022-02-11 00:00:00 Completed [facility] Influenza High Dose 2022-02-11 00:00:00 Completed [facility] Influenza High Dose 2022-02-11 00:00:00 Completed [facility] Influenza High Dose 2022-02-11 00:00:00 Completed [facility] Influenza, High-Dose, Trivalent, PF (FLUZONE) 2022-02-11 00:00:00 Completed [facility] Influenza, High-Dose, Trivalent, PF (FLUZONE) 2022-02-11 00:00:00 Completed [facility] Influenza, High-Dose, Trivalent, PF (FLUZONE) 2022-02-11 00:00:00 Completed [facility] HPV9 2021-08-14 00:00:00 Completed [facility] HPV9 2021-08-14 00:00:00 Completed [facility] HPV9 2021-08-14 00:00:00 Completed [facility] HPV9 2021-08-14 00:00:00 Completed [facility] HPV9 2021-08-14 00:00:00 Completed [facility] HPV9 2021-08-14 00:00:00 Completed [facility] HPV9 2021-08-14 00:00:00 Completed [facility] HPV9 2021-08-14 00:00:00 Completed [facility] HPV9 2021-08-14 00:00:00 Completed [facility] HPV9 2021-08-14 00:00:00 Completed [facility] HPV9 2021-08-14 00:00:00 Completed [facility] HPV9 2021-08-14 00:00:00 Completed [facility] HPV9 2021-08-14 00:00:00 Completed HPV9 2021-08-14 00:00:00 Completed HPV9 2021-08-14 00:00:00 Completed HPV9 2021-07-13 00:00:00 Completed [facility] HPV9 2021-07-13 00:00:00 Completed [facility] HPV9 2021-07-13 00:00:00 Completed [facility] HPV9 2021-07-13 00:00:00 Completed [facility] HPV9 2021-07-13 00:00:00 Completed [facility] HPV9 2021-07-13 00:00:00 Completed [facility] HPV9 2021-07-13 00:00:00 Completed [facility] HPV9 2021-07-13 00:00:00 Completed [facility] HPV9 2021-07-13 00:00:00 Completed [facility] HPV9 2021-07-13 00:00:00 Completed [facility] HPV9 2021-07-13 00:00:00 Completed [facility] HPV9 2021-07-13 00:00:00 Completed [facility] HPV9 2021-07-13 00:00:00 Completed [facility] HPV9 2021-07-13 00:00:00 Completed [facility] HPV9 2021-07-13 00:00:00 Completed [facility] Influenza Virus Vaccine Quad IM, Preserv and ABX Free 6 MO-64 YRS 2021-03-07 00:00:00 Completed [facility] Influenza Virus Vaccine Quad IM, Preserv and ABX Free 6 MO-64 YRS 2021-03-07 00:00:00 Completed [facility] Influenza Virus Vaccine Quad IM, Preserv and ABX Free 6 MO-64 YRS 2021-03-07 00:00:00 Completed [facility] Influenza Virus Vaccine Quad IM, Preserv and ABX Free 6 MO-64 YRS 2021-03-07 00:00:00 Completed [facility] Influenza Virus Vaccine Quad IM, Preserv and ABX Free 6 MO-64 YRS 2021-03-07 00:00:00 Completed [facility] Influenza Virus Vaccine Quad IM, Preserv and ABX Free 6 MO-64 YRS 2021-03-07 00:00:00 Completed [facility] Influenza Virus Vaccine Quad IM, Preserv and ABX Free 6 MO-64 YRS 2021-03-07 00:00:00 Completed [facility] Influenza Virus Vaccine Quad IM, Preserv and ABX Free 6 MO-64 YRS 2021-03-07 00:00:00 Completed [facility] Influenza Virus Vaccine Quad IM, Preserv and ABX Free 6 MO-64 YRS 2021-03-07 00:00:00 Completed [facility] Influenza Virus Vaccine Quad IM, Preserv and ABX Free 6 MO-64 YRS 2021-03-07 00:00:00 Completed [facility] Influenza Virus Vaccine Quad IM, Preserv and ABX Free 6 MO-64 YRS 2021-03-07 00:00:00 Completed [facility] Influenza Virus Vaccine Quad IM, Preserv and ABX Free 6 MO-64 YRS 2021-03-07 00:00:00 Completed [facility] Influenza Virus Vaccine Quad IM, Preserv and ABX Free 6 MO-64 YRS (FLUCELVAX) 2021-03-07 00:00:00 Completed [facility] Influenza Virus Vaccine Quad IM, Preserv and ABX Free 6 MO-64 YRS (FLUCELVAX) 2021-03-07 00:00:00 Completed [facility] Influenza Virus Vaccine Quad IM, Preserv and ABX Free 6 MO-64 YRS (FLUCELVAX) 2021-03-07 00:00:00 Completed [facility] Vitamin B12 (Cyanocobalamin) Vitamin B12 (Cyanocobalamin) 2020-01-18 16:50:00 Completed [facility] Solumedrol 125mg/2ml Solumedrol 125mg/2ml 2019-12-07 14:03:00 Completed [facility] 2018-12-24 10:23:00 Completed [facility] 2018-12-24 10:23:00 Completed [facility] 2018-12-24 10:23:00 Completed [facility] 2018-12-24 10:23:00 Completed [facility] 2018-12-24 10:23:00 Completed [facility] 2018-12-24 10:23:00 Completed [facility] 2018-12-24 10:23:00 Completed [facility] 2018-12-24 00:00:00 Completed [facility] Kenalog (Triamcinolone) Kenalog (Triamcinolone) 2018-08-14 09:05:00 Completed [facility] Influenza Virus Vaccine Quad ID 18-64 YRS 2017-01-18 00:00:00 Completed [facility] Influenza Virus Vaccine Quad ID 18-64 YRS 2017-01-18 00:00:00 Completed [facility] Influenza Virus Vaccine Quad ID 18-64 YRS 2017-01-18 00:00:00 Completed [facility] Influenza Virus Vaccine Quad ID 18-64 YRS 2017-01-18 00:00:00 Completed [facility] Influenza Virus Vaccine Quad ID 18-64 YRS 2017-01-18 00:00:00 Completed [facility] Influenza Virus Vaccine Quad ID 18-64 YRS 2017-01-18 00:00:00 Completed [facility] Influenza Virus Vaccine Quad ID 18-64 YRS 2017-01-18 00:00:00 Completed [facility] Influenza Virus Vaccine Quad ID 18-64 YRS 2017-01-18 00:00:00 Completed [facility] Influenza Virus Vaccine Quad ID 18-64 YRS 2017-01-18 00:00:00 Completed [facility] Influenza Virus Vaccine Quad ID 18-64 YRS 2017-01-18 00:00:00 Completed [facility] Influenza Virus Vaccine Quad ID 18-64 YRS 2017-01-18 00:00:00 Completed [facility] Influenza Virus Vaccine Quad ID 18-64 YRS 2017-01-18 00:00:00 Completed [facility] Influenza Virus Vaccine Quad ID 18-64 YRS 2017-01-18 00:00:00 Completed [facility] Influenza Virus Vaccine Quad ID 18-64 YRS 2017-01-18 00:00:00 Completed [facility] Influenza Virus Vaccine Quad ID 18-64 YRS 2017-01-18 00:00:00 Completed [facility] Influenza Virus Vaccine Quad IM 3+ YRS 2016-08-21 00:00:00 Completed [facility] Influenza Virus Vaccine Quad IM 3+ YRS 2016-08-21 00:00:00 Completed [facility] Influenza Virus Vaccine Quad IM 3+ YRS 2016-08-21 00:00:00 Completed [facility] Influenza Virus Vaccine Quad IM 3+ YRS 2016-08-21 00:00:00 Completed [facility] Influenza Virus Vaccine Quad IM 3+ YRS 2016-08-21 00:00:00 Completed [facility] Influenza Virus Vaccine Quad IM 3+ YRS 2016-08-21 00:00:00 Completed [facility] Influenza Virus Vaccine Quad IM 3+ YRS 2016-08-21 00:00:00 Completed [facility] Influenza Virus Vaccine Quad IM 3+ YRS 2016-08-21 00:00:00 Completed [facility] Influenza Virus Vaccine Quad IM 3+ YRS 2016-08-21 00:00:00 Completed [facility] Influenza Virus Vaccine Quad IM 3+ YRS 2016-08-21 00:00:00 Completed [facility] Influenza Virus Vaccine Quad IM 3+ YRS 2016-08-21 00:00:00 Completed [facility] Influenza Virus Vaccine Quad IM 3+ YRS 2016-08-21 00:00:00 Completed [facility] Influenza Virus Vaccine Quad IM 3+ YRS 2016-08-21 00:00:00 Completed [facility] Influenza Virus Vaccine Quad IM 3+ YRS 2016-08-21 00:00:00 Completed [facility] Influenza Virus Vaccine Quad IM 3+ YRS 2016-08-21 00:00:00 Completed [facility] Influenza Virus Vaccine 2016-08-20 00:00:00 Completed [facility] Influenza Virus Vaccine 2016-08-20 00:00:00 Completed [facility] Influenza Virus Vaccine 2016-08-20 00:00:00 Completed [facility] Influenza Virus Vaccine 2016-08-20 00:00:00 Completed [facility] Influenza Virus Vaccine 2016-08-20 00:00:00 Completed [facility] Influenza Virus Vaccine 2016-08-20 00:00:00 Completed [facility] Influenza Virus Vaccine 2016-08-20 00:00:00 Completed [facility] Influenza Virus Vaccine 2016-08-20 00:00:00 Completed [facility] Influenza Virus Vaccine 2016-08-20 00:00:00 Completed [facility] Influenza Virus Vaccine 2016-08-20 00:00:00 Completed [facility] Influenza Virus Vaccine 2016-08-20 00:00:00 Completed [facility] Influenza Virus Vaccine 2016-08-20 00:00:00 Completed [facility] Influenza Virus Vaccine 2016-08-20 00:00:00 Completed Influenza Virus Vaccine 2016-08-20 00:00:00 Completed Influenza Virus Vaccine 2016-08-20 00:00:00 Completed [facility] Afluria Unknown Completed [facility] Afluria Afluria Unknown Completed [facility] Afluria Afluria Unknown Completed [facility] Afluria Afluria Unknown Completed [facility] Afluria Afluria Unknown Completed [facility] Afluria Afluria Unknown Completed [facility] Afluria Afluria Unknown Completed [facility] Afluria Afluria Unknown Completed [facility] Afluria Afluria Unknown Completed [facility] Afluria Afluria Unknown Completed [facility] Afluria Afluria Unknown Completed [facility] Afluria Afluria Unknown Completed [facility] Afluria Afluria Unknown Completed [facility] Afluria Afluria Unknown Completed [facility] Afluria Afluria Unknown Completed [facility] Afluria Afluria Unknown Completed [facility] Afluria Afluria Unknown Completed [facility] Afluria Afluria Unknown Completed [facility] Influenza Virus Vaccine Quad IM 3+ YRS Unknown Completed [facility] Influenza Virus Vaccine Quad ID 18-64 YRS Unknown Completed [facility] Influenza Virus Vaccine Unknown Completed [facility] Influenza Virus Vaccine Quad IM, Preserv and ABX Free 6 MO-64 YRS (FLUCELVAX) Unknown Completed [facility] Influenza Virus Vaccine Quad IM 3+ YRS Unknown Completed [facility] Influenza Virus Vaccine Quad ID 18-64 YRS Unknown Completed [facility] Influenza Virus Vaccine Unknown Completed [facility] Influenza Virus Vaccine Quad IM, Preserv and ABX Free 6 MO-64 YRS (FLUCELVAX) Unknown Completed [facility] HPV9 Unknown Completed [facility] Influenza High Dose Unknown Completed [facility] Influenza Virus Vaccine Quad IM 3+ YRS Unknown Completed [facility] Influenza Virus Vaccine Quad ID 18-64 YRS Unknown Completed [facility] Influenza Virus Vaccine Unknown Completed [facility] Influenza Virus Vaccine Quad IM, Preserv and ABX Free 6 MO-64 YRS (FLUCELVAX) Unknown Completed [facility] Influenza High Dose Unknown Completed [facility] HPV9 Unknown Completed [facility] Influenza Virus Vaccine Quad IM 3+ YRS Unknown Completed [facility] Influenza Virus Vaccine Quad ID 18-64 YRS Unknown Completed [facility] Influenza Virus Vaccine Unknown Completed [facility] Influenza Virus Vaccine Quad IM, Preserv and ABX Free 6 MO-64 YRS (FLUCELVAX) Unknown Completed [facility] HPV9 Unknown Completed [facility] Influenza High Dose Unknown Completed [facility] Influenza Virus Vaccine Quad IM 3+ YRS Unknown Completed [facility] Influenza Virus Vaccine Quad ID 18-64 YRS Unknown Completed [facility] Influenza Virus Vaccine Unknown Completed [facility] Influenza Virus Vaccine Quad IM, Preserv and ABX Free 6 MO-64 YRS (FLUCELVAX) Unknown Completed [facility] HPV9 Unknown Completed [facility] Influenza High Dose Unknown Completed [facility] Influenza Virus Vaccine Quad IM 3+ YRS Unknown Completed [facility] Influenza Virus Vaccine Quad ID 18-64 YRS Unknown Completed [facility] Influenza Virus Vaccine Unknown Completed [facility] Influenza Virus Vaccine Quad IM, Preserv and ABX Free 6 MO-64 YRS (FLUCELVAX) Unknown Completed [facility] HPV9 Unknown Completed [facility] Influenza High Dose Unknown Completed [facility] Influenza Virus Vaccine Quad IM 3+ YRS Unknown Completed [facility] Influenza Virus Vaccine Quad ID 18-64 YRS Unknown Completed [facility] Influenza Virus Vaccine Unknown Completed [facility] Influenza Virus Vaccine Quad IM, Preserv and ABX Free 6 MO-64 YRS (FLUCELVAX) Unknown Completed [facility] HPV9 Unknown Completed [facility] Influenza High Dose Unknown Completed [facility] Influenza Virus Vaccine Quad IM 3+ YRS Unknown Completed [facility] Influenza Virus Vaccine Quad ID 18-64 YRS Unknown Completed [facility] Influenza Virus Vaccine Unknown Completed [facility] Influenza Virus Vaccine Quad IM, Preserv and ABX Free 6 MO-64 YRS (FLUCELVAX) Unknown Completed [facility] HPV9 Unknown Completed [facility] Influenza High Dose Unknown Completed [facility] Influenza Virus Vaccine Quad IM 3+ YRS Unknown Completed [facility] Influenza Virus Vaccine Quad ID 18-64 YRS Unknown Completed [facility] Influenza Virus Vaccine Unknown Completed [facility] Influenza Virus Vaccine Quad IM, Preserv and ABX Free 6 MO-64 YRS (FLUCELVAX) Unknown Completed [facility] HPV9 Unknown Completed [facility] Influenza High Dose Unknown Completed [facility] Influenza Virus Vaccine Quad IM 3+ YRS Unknown Completed [facility] Influenza Virus Vaccine Quad ID 18-64 YRS Unknown Completed [facility] Influenza Virus Vaccine Unknown Completed [facility] Influenza Virus Vaccine Quad IM, Preserv and ABX Free 6 MO-64 YRS (FLUCELVAX) Unknown Completed [facility] HPV9 Unknown Completed [facility] Influenza High Dose Unknown Completed [facility] TD Pres-Free Unknown Completed [facility] Influenza Virus Vaccine Quad IM 3+ YRS Unknown Completed [facility] Influenza Virus Vaccine Quad ID 18-64 YRS Unknown Completed [facility] Influenza Virus Vaccine Unknown Completed [facility] Influenza Virus Vaccine Quad IM, Preserv and ABX Free 6 MO-64 YRS (FLUCELVAX) Unknown Completed [facility] HPV9 Unknown Completed [facility] Influenza High Dose Unknown Completed [facility] TD Pres-Free Unknown Completed [facility] Influenza Virus Vaccine Quad IM 3+ YRS Unknown Completed [facility] Influenza Virus Vaccine Quad ID 18-64 YRS Unknown Completed [facility] Influenza Virus Vaccine Unknown Completed [facility] Influenza Virus Vaccine Quad IM, Preserv and ABX Free 6 MO-64 YRS (FLUCELVAX) Unknown Completed [facility] HPV9 Unknown Completed [facility] Influenza High Dose Unknown Completed [facility] TD Pres-Free Unknown Completed [facility] Influenza Virus Vaccine Quad IM 3+ YRS Unknown Completed [facility] Influenza Virus Vaccine Quad ID 18-64 YRS Unknown Completed [facility] Influenza Virus Vaccine Unknown Completed [facility] Influenza Virus Vaccine Quad IM, Preserv and ABX Free 6 MO-64 YRS (FLUCELVAX) Unknown Completed [facility] HPV9 Unknown Completed [facility] Influenza High Dose Unknown Completed [facility] TD Pres-Free Unknown [facility] Vacc[facility] Quad IM 3+ YRS Unknown Completed [facility] Influenza Virus Vaccine Quad ID 18-64 YRS Unknown Completed [facility] Influenza Virus Vaccine Unknown Completed [facility] Influenza Virus Vaccine Quad IM, Preserv and ABX Free 6 MO-64 YRS (FLUCELVAX) Unknown Completed [facility] HPV9 Unknown Completed [facility] Influenza High Dose Unknown Completed [facility] TD Pres-Free Unknown Completed [facility] Influenza Virus Vaccine Quad IM 3+ YRS Unknown Completed [facility] Influenza Virus Vaccine Quad ID 18-64 YRS Unknown Completed [facility] Influenza Virus Vaccine Unknown Completed [facility] Influenza Virus Vaccine Quad IM, Preserv and ABX Free 6 MO-64 YRS (FLUCELVAX) Unknown Completed [facility] HPV9 Unknown Completed [facility] Influenza High Dose Unknown Completed [facility] TD Pres-Free Unknown Completed [facility] Influenza Virus Vaccine Quad IM 3+ YRS Unknown Completed [facility] Influenza Virus Vaccine Quad ID 18-64 YRS Unknown Completed [facility] Influenza Virus Vaccine Unknown Completed [facility] Influenza Virus Vaccine Quad IM, Preserv and ABX Free 6 MO-64 YRS (FLUCELVAX) Unknown Completed [facility] HPV9 Unknown Completed [facility] Influenza High Dose Unknown Completed [facility] TD Pres-Free Unknown [facility] Vaccine Quad IM 3+ YRS Unknown Completed [facility] Influenza Virus Vaccine Quad ID 18-64 YRS Unknown Completed [facility] Influenza Virus Vaccine Unknown Completed [facility] Influenza Virus Vaccine Quad IM, Preserv and ABX Free 6 MO-64 YRS (FLUCELVAX) Unknown Completed [facility] HPV9 Unknown Completed [facility] Influenza High Dose Unknown Completed [facility] TD Pres-Free Unknown Completed [facility] Influenza Virus Vaccine Quad IM 3+ YRS Unknown Completed [facility] Influenza Virus Vaccine Quad ID 18-64 YRS Unknown Completed [facility] Influenza Virus Vaccine Unknown Completed [facility] Influenza Virus Vaccine Quad IM, Preserv and ABX Free 6 MO-64 YRS (FLUCELVAX) Unknown Completed [facility] HPV9 Unknown Completed [facility] Influenza High Dose Unknown Completed [facility] TD Pres-Free Unknown [facility]enza Virus Vacc[facility] Quad IM 3+ YRS Unknown Completed [facility] Influenza Virus Vaccine Quad ID 18-64 YRS Unknown Completed [facility] Influenza Virus Vaccine Unknown Completed [facility] Influenza Virus Vaccine Quad IM, Preserv and ABX Free 6 MO-64 YRS (FLUCELVAX) Unknown Completed [facility] HPV9 Unknown Completed [facility] Influenza High Dose Unknown Completed [facility] TD Pres-Free Unknown Completed [facility] Influenza Virus Vaccine Quad IM 3+ YRS Unknown Completed [facility] Influenza Virus Vaccine Quad ID 18-64 YRS Unknown Completed [facility] Influenza Virus Vaccine Unknown Completed [facility] Influenza Virus Vaccine Quad IM, Preserv and ABX Free 6 MO-64 YRS (FLUCELVAX) Unknown Completed [facility] HPV9 Unknown Completed [facility] Influenza High Dose Unknown Completed [facility] TD Pres-Free Unknown Completed [facility] Influenza Virus Vaccine Quad IM 3+ YRS Unknown Completed [facility] Influenza Virus Vaccine Quad ID 18-64 YRS Unknown Completed [facility] Influenza Virus Vaccine Unknown Completed [facility] Influenza Virus Vaccine Quad IM, Preserv and ABX Free 6 MO-64 YRS (FLUCELVAX) Unknown Completed [facility] HPV9 Unknown Completed [facility] Influenza High Dose Unknown Completed [facility] TD Pres-Free Unknown Completed [facility] Influenza Virus Vaccine Quad IM 3+ YRS Unknown Completed [facility] Influenza Virus Vaccine Quad ID 18-64 YRS Unknown Completed [facility] Influenza Virus Vaccine Unknown Completed [facility] Influenza Virus Vaccine Quad IM, Preserv and ABX Free 6 MO-64 YRS (FLUCELVAX) Unknown Completed [facility] HPV9 Unknown Completed [facility] Influenza High Dose Unknown Completed [facility] TD Pres-Free Unknown Completed [facility] Influenza Virus Vaccine Quad IM 3+ YRS Unknown Completed [facility] Influenza Virus Vaccine Quad ID 18-64 YRS Unknown Completed [facility] Influenza Virus Vaccine Unknown Completed [facility] Influenza Virus Vaccine Quad IM, Preserv and ABX Free 6 MO-64 YRS (FLUCELVAX) Unknown Completed [facility] HPV9 Unknown Completed [facility] Influenza, High-Dose, Trivalent, PF (FLUZONE) Unknown Completed [facility] TD Pres-Free Unknown Completed [facility] Vital Signs Vital Name Observation Time Observation Value Comments S bella Heart rate 2024-04-25 14:53:02 106 /min [facility] Respiratory rate 2024-04-25 14:53:02 18 /min [facility] Oxygen saturation in Arterial blood by Pulse oximetry 2024-04-25 14:53:02 99 /min [facility] Systolic blood pressure 2024-04-25 14:52:32 121 mm[Hg] [facility] Diastolic blood pressure 2024-04-25 14:52:32 82 mm[Hg] [facility] Body temperature 2024-04-25 14:52:17 37.89 [facility] Body height 2024-04-24 14:39:00 170.2 cm [facility] [place] [facility] Body weight 2024-04-24 14:39:00 49.896 kg [facility] [place] [facility] BMI 2024-04-24 14:39:00 17.23 kg/m2 [facility] [place] [facility] Heart rate 2024-04-25 14:53:02 106 /min [facility] Respiratory rate 2024-04-25 14:53:02 18 /min [facility] Epic Oxygen saturation in Arterial blood by Pulse oximetry 2024-04-25 14:53:02 99 /min [facility] Systolic blood pressure 2024-04-25 14:52:32 121 mm[Hg] [facility] Diastolic blood pressure 2024-04-25 14:52:32 82 mm[Hg] [facility] Body temperature 2024-04-25 14:52:17 37.89 [facility] Body height 2024-04-24 14:39:00 170.2 cm [facility] [place] [facility] Body weight 2024-04-24 14:39:00 49.896 kg [facility] BMI 2024-04-24 14:39:00 17.23 kg/m2 [facility] Respiratory rate 2024-04-05 08:56:00 19 /min [facility] Systolic blood pressure 2024-04-05 08:30:00 129 mm[facility]Hg[facility] Di[facility] 2024-04-05 08:30:00 94 mm[Hg] [facility] Heart rate 2024-04-05 05:12:00 97 /min [facility] Body temperature 2024-04-05 05:12:00 36.83 Pur[facility] Body height 2024-04-05 05:12:00 170.2 cm [facility] Body weight 2024-04-05 05:12:00 54.432 kg [facility] BMI 2024-04-05 05:12:00 18.79 kg/m2 [facility] Oxygen saturation in Arterial blood by Pulse oximetry 2024-04-05 05:12:00 96 /min [facility] 2024-03-31 00:32:00 130 mm[Hg] [facility] Di[facility] blood pressure 2024-03-31 00:32:00 104 mm[Hg] [facility] Heart rate 2024-03-31 00:32:00 125 /min [facility] Body temperature 2024-03-31 00:32:00 36.72 [facility] Respiratory rate 2024-03-31 00:32:00 16 /min [facility] Body height 2024-03-31 00:32:00 170.2 cm [facility] Body weight 2024-03-31 00:32:00 54.432 kg [facility] BMI 2024-03-31 00:32:00 18.79 kg/m2 [facility] Oxygen saturation in Arterial blood by Pulse oximetry 2024-03-31 00:32:00 100 /min [facility] Sy[facility] blood pressure 2024-03-30 08:58:00 144 mm[Hg] [facility] Di[facility] blood pressure 2024-03-30 08:58:00 94 mm[Hg] [facility] Heart rate 2024-03-30 08:58:00 115 /min [facility] Body temperature 2024-03-30 08:58:00 36.78 [facility] Respiratory rate 2024-03-30 08:58:00 20 /min [facility] Body height 2024-03-30 08:58:00 170.2 cm [facility] Body weight 2024-03-30 08:58:00 54.432 kg [facility] BMI 2024-03-30 08:58:00 18.79 kg/m2 [facility] Oxygen saturation in Arterial blood by Pulse oximetry 2024-03-30 08:58:00 100 /min [facility] Syst[facility] blood pressure 2024-02-05 18:15:00 124 mm[Hg] [facility] Diastolic blood pressure 2024-02-05 18:15:00 85 mm[Hg] [facility] Heart rate 2024-02-05 18:15:00 93 /min [facility] Body height 2024-02-05 18:15:00 170.2 cm [facility] Body weight 2024-02-05 18:15:00 56.745 kg [facility] BMI 2024-02-05 18:15:00 19.59 kg/m2 [facility] Systolic blood pressure 2024 21:08:00 114 mm[Hg] [facility] Di[facility] blood pressure 2024 21:08:00 85 mm[Hg] [facility] Heart [facility] 2024 21:08:00 98 [facility] Body temperature 2024 21:08:00 36.56 [facility] Respiratory rate 2024 21:08:00 18 /min [facility] Oxygen saturation in Arterial blood by Pulse oximetry 2024 21:08:00 100 /min [facility] Body height 2024 19:22:00 170.2 cm [facility] Body weight 2024 19:22:00 54.432 kg [facility] BMI 2024 19:22:00 18.79 kg/m2 [facility] Body height 2024-01-23 16:10:00 170.2 cm [facility] Body weight 2024-01-23 16:10:00 54.84 kg [facility] BMI 2024-01-23 16:10:00 18.94 kg/m2 [facility] Body height 2024-01-03 15:39:00 170.2 cm [facility] Body weight 2024-01-03 15:39:00 55.974 kg [facility] BMI 2024-01-03 15:39:00 19.33 kg/m2 [facility] Body weight 2023-12-28 01:00:00 54.432 kg [facility] BMI 2023-12-28 01:00:00 18.79 kg/m2 [facility] Systolic blood pressure 2023-12-27 23:55:00 113 mm[Hg] [facility] Di[facility] blood pressure 2023-12-27 23:55:00 80 mm[Hg] [facility] Heart rate 2023-12-27 23:55:00 92 /min [facility] Respiratory rate 2023-12-27 23:55:00 18 /min [facility] Oxygen saturation in Arterial blood by Pulse oximetry 2023-12-27 23:55:00 100 /min [facility] Body temperature 2023-12-27 20:34:00 37.17 [facility] Systolic blood pressure 2023-12-16 11:22:00 109 mm[Hg] [facility] Di[facility] blood pressure 2023-12-16 11:22:00 77 mm[Hg] [facility] Heart rate 2023-12-16 11:22:00 110 /min [facility] Body temperature 2023-12-16 11:22:00 36.72 [facility] Respiratory rate 2023-12-16 11:22:00 20 /min [facility] Body height 2023-12-16 11:22:00 170.2 cm [facility] Body weight 2023-12-16 11:22:00 54.432 kg [facility] BMI 2023-12-16 11:22:00 18.79 kg/m2 [facility] Oxygen saturation in Arterial blood by Pulse oximetry 2023-12-16 11:22:00 100 /min [facility] blood pressure 2023-12-08 22:00:00 122 mm[Hg] [facility] Di[facility] blood pressure 2023-12-08 22:00:00 80 mm[Hg] [facility] Heart rate 2023-12-08 22:00:00 130 /min [facility] Body temperature 2023-12-08 22:00:00 36.67 [facility] Respiratory rate 2023-12-08 22:00:00 18 /min [facility] Oxygen saturation in Arterial blood by Pulse oximetry 2023-12-08 22:00:00 100 /min [facility] Body height 2023-12-08 19:10:00 170.2 cm [facility] Body weight 2023-12-08 19:10:00 53.071 kg [facility] BMI 2023-12-08 19:10:00 18.32 kg/m2 [facility] Systolic blood pressure 2023-12-06 10:00:00 112 mm[Hg] [facility] Di[facility] blood pressure 2023-12-06 10:00:00 78 mm[Hg] [facility] Heart rate 2023-12-06 09:21:07 116 /min [facility] Respiratory rate 2023-12-06 09:21:07 20 /min [facility] Oxygen saturation in Arterial blood by Pulse oximetry 2023-12-06 09:21:07 100 /min [facility] Body temperature 2023-12-06 01:47:00 36.67 [facility] Body height 2023-12-06 01:47:00 170.2 cm [facility] Body weight 2023-12-06 01:47:00 53.071 kg [facility] BMI 2023-12-06 01:47:00 18.32 kg/m2 [facility] Systolic blood pressure 2023-12-05 05:00:00 114 mm[Hg] [facility] Di[facility] blood pressure 2023-12-05 05:00:00 83 mm[Hg] [facility] Heart rate 2023-12-05 05:00:00 116 /min [facility] Respiratory rate 2023-12-05 05:00:00 20 /min [facility] Oxygen saturation in Arterial blood by Pulse oximetry 2023-12-05 05:00:00 96 /min [facility] Body temperature 2023-12-05 02:52:00 36.94 [facility] Body height 2023-12-05 02:52:00 170.2 cm [facility] Body weight 2023-12-05 02:52:00 53.116 kg [facility] BMI 2023-12-05 02:52:00 18.34 kg/m2 [facility] Systolic blood pressure 2023-11-22 21:46:12 99 mm[Hg] [facility] Di[facility] blood pressure 2023-11-22 21:46:12 57 mm[Hg] [facility] Heart rate 2023-11-22 21:46:12 99 /min [facility] Body temperature 2023-11-22 21:46:12 37.17 [facility] Respiratory rate 2023-11-22 21:46:12 16 /min [facility] Oxygen saturation in Arterial blood by Pulse oximetry 2023-11-22 21:46:12 97 /min [facility] Body height 2023-11-22 17:01:00 170.2 cm [facility] Body weight 2023-11-22 17:01:00 53.071 kg [facility] BMI 2023-11-22 17:01:00 18.32 kg/m2 [facility] Systolic blood pressure 2023-11-10 06:38:05 124 mm[Hg] [facility] Di[facility] blood pressure 2023-11-10 06:38:05 99 mm[Hg] [facility] Heart rate 2023-11-10 06:38:05 99 /min [facility] Body temperature 2023-11-10 06:38:05 36.67 [facility] Respiratory rate 2023-11-10 06:38:05 16 /min [facility] Oxygen saturation in Arterial blood by Pulse oximetry 2023-11-10 06:38:05 99 /min [facility] Body height 2023-11-10 03:34:00 170.2 cm [facility] Body weight 2023-11-10 03:34:00 47.628 kg [facility] BMI 2023-11-10 03:34:00 16.45 kg/m2 [facility] Systolic blood pressure 2023-11-09 12:26:00 119 mm[Hg] [facility] Di[facility] blood pressure 2023-11-09 12:26:00 84 mm[Hg] [facility] Heart rate 2023-11-09 12:26:00 103 /min [facility] Body temperature 2023-11-09 12:26:00 36.89 [facility] Respiratory rate 2023-11-09 12:26:00 20 /min [facility] Oxygen saturation in Arterial blood by Pulse oximetry 2023-11-09 12:26:00 100 /min [facility] Body weight 2023-11-09 08:29:00 53.479 kg [facility] BMI 2023-11-09 08:29:00 18.47 kg/m2 [facility] Body height 2023-11-06 21:32:00 170.2 cm [facility] Systolic blood pressure 2023-10-28 17:30:00 104 mm[Hg] [facility] Di[facility] blood pressure 2023-10-28 17:30:00 78 mm[Hg] [facility] Heart rate 2023-10-28 17:30:00 112 /min [facility] Body temperature 2023-10-28 17:30:00 37.06 [facility] Respiratory rate 2023-10-28 17:30:00 20 /min [facility] Oxygen saturation in Arterial blood by Pulse oximetry 2023-10-28 17:30:00 99 /min [facility] Body height 2023-10-28 03:09:00 170.2 cm [facility] Body weight 2023-10-28 03:09:00 52.164 kg [facility] BMI 2023-10-28 03:09:00 18.01 kg/m2 [facility] Systolic blood pressure 2023-10-19 16:14:00 120 mm[Hg] [facility] Di[facility] blood pressure 2023-10-19 16:14:00 87 mm[Hg] [facility] Heart rate 2023-10-19 16:14:00 98 /min [facility] Body temperature 2023-10-19 16:14:00 37.67 [facility] Respiratory rate 2023-10-19 16:14:00 18 /min [facility] Oxygen saturation in Arterial blood by Pulse oximetry 2023-10-19 16:14:00 98 /min [facility] Body height 2023-10-19 15:44:00 170.2 cm [facility] Body weight 2023-10-19 15:44:00 52.164 kg [facility] BMI 2023-10-19 15:44:00 18.01 kg/m2 [facility] Systolic blood pressure 2023-10-19 00:36:06 120 mm[Hg] [facility] Di[facility] blood pressure 2023-10-19 00:36:06 89 mm[Hg] [facility] Heart rate 2023-10-19 00:36:06 129 /[facility] Respiratory rate 2023-10-19 00:36:06 15 /min [facility] Oxygen saturation in Arterial blood by Pulse oximetry 2023-10-19 00:36:06 96 /min [facility] Body temperature 2023-10-19 00:32:00 37.11 [facility] Body height 2023-10-19 00:32:00 170.2 cm [facility] Body weight 2023-10-19 00:32:00 52.164 kg [facility] BMI 2023-10-19 00:32:00 18.01 kg/m2 [facility] Systolic blood pressure 2023-09-21 16:40:00 125 mm[Hg] [facility] Di[facility] blood pressure 2023-09-21 16:40:00 89 mm[Hg] [facility] Heart rate 2023-09-21 16:40:00 92 /min [facility] Body temperature 2023-09-21 16:40:00 36.11 [facility] Respiratory rate 2023-09-21 16:40:00 19 /min [facility] Oxygen saturation in Arterial blood by Pulse oximetry 2023-09-21 16:40:00 98 /min [facility] Body weight 2023-09-21 07:35:00 52.98 kg [facility] BMI 2023-09-21 07:35:00 18.29 kg/m2 [facility] Body height 2023-09-19 16:50:00 170.2 cm [facility] Systolic blood pressure 2023-09-15 18:00:00 136 mm[Hg] [facility] Di[facility] blood pressure 2023-09-15 18:00:00 95 mm[Hg] [facility] Heart rate 2023-09-15 18:00:00 94 /min [facility] Body temperature 2023-09-15 18:00:00 36.83 [facility] Respiratory rate 2023-09-15 18:00:00 10 /min [facility] Oxygen saturation in Arterial blood by Pulse oximetry 2023-09-15 18:00:00 97 /min [facility] Body height 2023-09-15 16:25:00 170.2 cm [facility] Body weight 2023-09-15 16:25:00 53.524 kg [facility] BMI 2023-09-15 16:25:00 18.48 kg/m2 [facility] Systolic blood pressure 2023-09-14 00:00:00 120 mm[Hg] [facility] Di[facility] blood pressure 2023-09-14 00:00:00 90 mm[Hg] [facility] Heart rate 2023-09-14 00:00:00 115 /min [facility] Body temperature 2023-09-14 00:00:00 37.06 [facility] Oxygen saturation in Arterial blood by Pulse oximetry 2023-09-14 00:00:00 98 /min [facility] Respiratory rate 2023-09-13 23:03:00 16 /min [facility] Body height 2023-09-13 23:03:00 170.2 cm [facility] Body weight 2023-09-13 23:03:00 53.524 kg [facility] BMI 2023-09-13 23:03:00 18.48 kg/m2 [facility] height 2023-06-11 10:30:00 67 [in_i] Commo n [facility] weight 2023-06-11 10:30:00 110 [lb_av] Comm on [facility] bmi 2023-06-11 10:30:00 17.23 kg/m2 [facility] on [facility] Systolic blood pressure 2023-04-30 20:12:00 129 mm[Hg] [facility] Di[facility] blood pressure 2023-04-30 20:12:00 87 mm[Hg] [facility] Heart rate 2023-04-30 20:12:00 118 /min [facility] Body temperature 2023-04-30 20:12:00 36.72 [facility] Respiratory rate 2023-04-30 20:12:00 14 /min [facility] Body weight 2023-04-30 20:12:00 48.988 kg [facility] BMI 2023-04-30 20:12:00 16.92 kg/m2 [facility] Oxygen saturation in Arterial blood by Pulse oximetry 2023-04-30 20:12:00 100 /min [facility] Sy[facility] blood pressure 2023-04-27 15:00:00 114 mm[Hg] [facility] Diastolic blood pressure 2023-04-27 15:00:00 86 mm[Hg] [facility] Heart rate 2023-04-27 15:00:00 105 /[facility] Oxygen saturation in Arterial blood by Pulse oximetry 2023-04-27 15:00:00 99 /min [facility] Respiratory rate 2023-04-27 12:00:00 18 /min [facility] Body temperature 2023-04-27 10:00:00 36 [facility] Body weight 2023-04-27 10:00:00 49.487 kg [facility] BMI 2023-04-27 10:00:00 17.09 kg/m2 [facility] Body height 2023-04-24 21:18:00 170.2 cm [facility] height 2023-03-06 13:10:00 67 [in_i] Commo n [facility] weight 2023-03-06 13:10:00 110 [lb_av] [facility] on [facility] bmi 2023-03-06 13:10:00 17.23 kg/m2 [facility] on [facility] blood pressure systolic 2023-03-06 13:10:00 129 mm[Hg] [facility] blood pressure diastolic 2023-03-06 13:10:00 84 mm[Hg] [facility] height 2023-01-04 09:20:00 67 [in_i] Commo n [facility] weight 2023-01-04 09:20:00 110 [lb_av] Comm on [facility] bmi 2023-01-04 09:20:00 17.23 kg/m2 [facility] on [facility] blood pressure systolic 2023-01-04 09:20:00 123 mm[Hg] [facility] blood pressure diastolic 2023-01-04 09:20:00 70 mm[Hg] [facility] Systolic blood pressure 2022-12-12 14:09:00 135 mm[Hg] [facility] Di[facility] blood pressure 2022-12-12 14:09:00 89 mm[Hg] [facility] Heart rate 2022-12-12 14:08:00 123 /min [facility] Body temperature 2022-12-12 14:08:00 36.83 [facility] Respiratory rate 2022-12-12 14:08:00 14 /min [facility] Body weight 2022-12-12 14:08:00 48.535 kg [facility] BMI 2022-12-12 14:08:00 16.76 kg/m2 [facility] Oxygen saturation in Arterial blood by Pulse oximetry 2022-12-12 14:08:00 99 /min [facility] blood pressure 2022-11-13 20:53:00 121 mm[Hg] [facility] Diastolic blood pressure 2022-11-13 20:53:00 83 mm[Hg] [facility] Heart rate 2022-11-13 20:53:00 108 /min [facility] Body temperature 2022-11-13 20:53:00 37.06 [facility] Respiratory rate 2022-11-13 20:53:00 18 /min [facility] Oxygen saturation in Arterial blood by Pulse oximetry 2022-11-13 20:53:00 100 /min [facility] Body height 2022-11-11 01:42:00 170.2 cm [facility] Body weight 2022-11-11 01:42:00 47.174 kg [facility] BMI 2022-11-11 01:42:00 16.29 kg/m2 [facility] Systolic blood pressure 2022-11-07 16:10:00 146 mm[Hg] [facility] Di[facility] blood pressure 2022-11-07 16:10:00 89 mm[Hg] [facility] Heart rate 2022-11-07 16:10:00 96 /min [facility] Body temperature 2022-11-07 16:10:00 36.39 [facility] Respiratory rate 2022-11-07 16:10:00 16 /min [facility] Oxygen saturation in Arterial blood by Pulse oximetry 2022-11-07 16:10:00 98 /min [facility] Body weight 2022-11-07 08:47:00 48.988 kg [facility] BMI 2022-11-07 08:47:00 16.92 kg/m2 [facility] Body height 2022-11-06 11:23:00 170.2 cm [facility] height 2022-10-30 16:50:00 67 [in_i] Commo n [facility] weight 2022-10-30 16:50:00 99 [lb_av] Commo n [facility] bmi 2022-10-30 16:50:00 15.5 kg/m2 [facility] blood pressure systolic 2022-10-30 16:50:00 121 mm[Hg] [facility] blood pressure diastolic 2022-10-30 16:50:00 70 mm[Hg] [facility] Systolic blood pressure 2022-08-28 01:39:00 125 mm[Hg] [facility] Di[facility] blood pressure 2022-08-28 01:39:00 96 mm[Hg] [facility] Heart rate 2022-08-28 01:39:00 95 /min [facility] Body temperature 2022-08-28 01:39:00 36.5 [facility] Respiratory rate 2022-08-28 01:39:00 16 /min [facility] Body height 2022-08-28 01:39:00 170.2 cm [facility] Body weight 2022-08-28 01:39:00 47.628 kg [facility] BMI 2022-08-28 01:39:00 16.45 kg/m2 [facility] Oxygen saturation in Arterial blood by Pulse oximetry 2022-08-28 01:39:00 100 /min [facility] height 2022-07-31 16:20:00 67 [in_i] Commo n [facility] weight 2022-07-31 16:20:00 98 [lb_av] [facility] bmi 2022-07-31 16:20:00 15.35 kg/m2 [facility] blood pressure systolic 2022-07-31 16:20:00 120 mm[Hg] [facility] blood pressure diastolic 2022-07-31 16:20:00 74 mm[Hg] [facility] height 2022-06-01 08:50:00 67 [in_i] Commo n [facility] weight 2022-06-01 08:50:00 96.9 [lb_av] Com [facility] temperature 2022-06-01 08:50:00 96.8 [degF] Com [facility] bmi 2022-06-01 08:50:00 15.18 kg/m2 [facility] on [facility] oximetry 2022-06-01 08:50:00 99 % Commo [facility] respiratory rate 2022-06-01 08:50:00 18 /min [facility] blood pressure systolic 2022-06-01 08:50:00 118 mm[Hg] [facility] blood pressure diastolic 2022-06-01 08:50:00 77 mm[Hg] [facility] Systolic blood pressure 2022-04-13 01:48:00 138 mm[Hg] [facility] Di[facility] blood pressure 2022-04-13 01:48:00 91 mm[Hg] [facility] Heart rate 2022-04-13 01:48:00 81 /[facility] 2022-04-13 01:48:00 16 /min [facility] Oxygen saturation in Arterial blood by Pulse oximetry 2022-04-13 01:48:00 98 /min [facility] Body temperature 2022-04-12 21:03:00 36.72 [facility] Body weight 2022-04-12 21:03:00 45.36 kg [facility] BMI 2022-04-12 21:03:00 15.66 kg/m2 [facility] Systolic blood pressure 2022-04-09 05:47:00 138 mm[Hg] [facility] Di[facility] blood pressure 2022-04-09 05:47:00 104 mm[Hg] [facility] Heart rate 2022-04-09 05:47:00 112 /min [facility] Body temperature 2022-04-09 05:47:00 36.61 [facility] Respiratory rate 2022-04-09 05:47:00 16 /min [facility] Body height 2022-04-09 05:47:00 170.2 cm [facility] Body weight 2022-04-09 05:47:00 45.36 kg [facility] BMI 2022-04-09 05:47:00 15.66 kg/m2 [facility] Oxygen saturation in Arterial blood by Pulse oximetry 2022-04-09 05:47:00 100 /min [facility] blood pressure 2022-04-05 20:08:00 149 mm[Hg] [facility] Di[facility] blood pressure 2022-04-05 20:08:00 114 mm[Hg] [facility] Heart rate 2022-04-05 20:08:00 108 /[facility] Body temperature 2022-04-05 20:08:00 36.61 [facility] Respiratory rate 2022-04-05 20:08:00 16 /min [facility] Body height 2022-04-05 20:08:00 170.2 cm [facility] Body weight 2022-04-05 20:08:00 45.36 kg [facility] BMI 2022-04-05 20:08:00 15.66 kg/m2 [facility] Oxygen saturation in Arterial blood by Pulse oximetry 2022-04-05 20:08:00 100 /min [facility] height 2022-03-02 07:50:00 67 [in_i] Commo n [facility] weight 2022-03-02 07:50:00 105 [lb_av] [facility] on [facility] temperature 2022-03-02 07:50:00 98 [degF] Comm on [facility] bmi 2022-03-02 07:50:00 16.44 kg/m2 [facility] on [facility] blood pressure systolic 2022-03-02 07:50:00 120 mm[Hg] [facility] blood pressure diastolic 2022-03-02 07:50:00 76 mm[Hg] [facility] height 2022-01-02 11:40:00 67 [in_i] Commo n [facility] weight 2022-01-02 11:40:00 105 [lb_av] Comm on [facility] bmi 2022-01-02 11:40:00 16.44 kg/m2 [facility] on [facility] blood pressure systolic 2022-01-02 11:40:00 125 mm[Hg] [facility] blood pressure diastolic 2022-01-02 11:40:00 76 mm[Hg] [facility] Systolic blood pressure 2021-12-04 20:56:00 124 mm[Hg] [facility] blood pressure 2021-12-04 20:56:00 89 mm[Hg] [facility] Heart rate 2021-12-04 20:56:00 156 /min [facility] Body height 2021-12-04 20:56:00 170.2 cm [facility] Body weight 2021-12-04 20:56:00 46.72 kg [facility] BMI 2021-12-04 20:56:00 16.13 kg/m2 [facility] height 2021-10-17 08:00:00 67 [in_i] Commo n [facility] weight 2021-10-17 08:00:00 109 [lb_av] [facility] on [facility] temperature 2021-10-17 08:00:00 98 [degF] Comm on [facility] bmi 2021-10-17 08:00:00 17.07 kg/m2 [facility] on [facility] blood pressure systolic 2021-10-17 08:00:00 130 mm[Hg] [facility] blood pressure diastolic 2021-10-17 08:00:00 80 mm[Hg] [facility] height 2021-10-05 08:30:00 67 [in_i] Commo n [facility] weight 2021-10-05 08:30:00 109.1 [lb_av] [facility] temperature 2021-10-05 08:30:00 97.7 [degF] Com mon [facility] bmi 2021-10-05 08:30:00 17.09 kg/m2 Comm on [facility] oximetry 2021-10-05 08:30:00 100 % Commo n [facility] respiratory rate 2021-10-05 08:30:00 18 /min [facility] blood pressure systolic 2021-10-05 08:30:00 137 mm[Hg] [facility] blood pressure diastolic 2021-10-05 08:30:00 89 mm[Hg] [facility] bmi 2021-07-13 15:00:00 16.21 kg/m2 Comm on [facility] oximetry 2021-07-13 15:00:00 100 % Commo n [facility] respiratory rate 2021-07-13 15:00:00 17 /min [facility] blood pressure systolic 2021-07-13 15:00:00 129 mm[Hg] [facility] blood pressure diastolic 2021-07-13 15:00:00 85 mm[Hg] [facility] height 2021-07-13 15:00:00 67 [in_i] Commo n [facility] weight 2021-07-13 15:00:00 103.5 [lb_av] Co mmon [facility] temperature 2021-07-13 15:00:00 97.9 [degF] Com mon [facility] height 2021-05-19 11:10:00 67 [in_i] Commo n [facility] weight 2021-05-19 11:10:00 107 [lb_av] Comm on [facility] temperature 2021-05-19 11:10:00 97.5 [degF] Com [facility] bmi 2021-05-19 11:10:00 16.76 kg/m2 Comm on [facility] height 2021-03-21 11:30:00 67 [in_i] Commo n [facility] weight 2021-03-21 11:30:00 107 [lb_av] Comm on [facility] temperature 2021-03-21 11:30:00 98 [degF] Comm on [facility] bmi 2021-03-21 11:30:00 16.76 kg/m2 Comm on [facility] blood pressure systolic 2021-03-21 11:30:00 125 mm[Hg] Common [facility] blood pressure diastolic 2021-03-21 11:30:00 75 mm[Hg] Common [facility] height 2021-01-09 16:40:00 67 [in_i] Commo n [facility] weight 2021-01-09 16:40:00 105 [lb_av] Comm on [facility] temperature 2021-01-09 16:40:00 98.5 [degF] Com [facility] bmi 2021-01-09 16:40:00 16.44 kg/m2 Comm on [facility] Procedures Procedure Date / Time Performed Performing Clinician Source Phosphorus Level 2024-04-26 00:00:00 [facility] Magnesium Level 2024-04-26 00:00:00 Wyatt bush Sammy [facility] Complete Blood Count w/Diff and Platelet 2024-04-26 00:00:00 [facility] Comprehensive Metabolic Panel 2024-04-26 00:00:00 [facility] DRUG SCREEN URINE (8 DRUGS) 2024-04-25 06:14:00 Yaniv, Basil [facility] UA WITH CULTURE IF INDICATED 2024-04-25 06:14:00 Yaniv, Kirstyabelinocharentonmarco [facility] HIV 4TH GEN WITH REFLEX 2024-04-25 06:12:00 Yaniv, Lauren georginamarco [facility] AMMONIA LEVEL 2024-04-25 02:20:00 Monika Del Rosario [facility] CT ABDOMEN PELVIS W IV CONTRAST 2024-04-25 01:51:45 Jt Huffman [facility] Acute Hepatitis Panel 2024-04-25 00:00:00 [facility] US GALLBLADDER 2024-04-24 20:15:37 Mone Donovan [facility] XR CHEST 1 VIEW 2024-04-24 17:57:00 Jacqueline Jimenez [facility] BLOOD GAS, VENOUS 2024-04-24 17:22:00 Jacqueline Jimenez Ra [facility] CREATINE KINASE (CK TOTAL) 2024-04-24 16:35:00 Jacqueline Jimenez [facility] LIPASE LEVEL 2024-04-24 16:35:00 Jacqueline [facility]enez [facility] 2024-04-24 16:35:00 Jacqueline Jimenez [facility] COMPLETE BLOOD COUNT W/DIFF AND PLATELET 2024-04-24 16:35:00 Jacqueline Jimenez [facility] THYROID STIMULATING HORMONE W/ REFLEX FREE T4 2024-04-24 16:35:00 Jacqueline Jimenez [facility] COMPLETE BLOOD COUNT 2024-04-24 16:35:00 Jacqueline Jimenez [facility] AUTOMATED DIFFERENTIAL 2024-04-24 16:35:00 Viridiana Jimenez [facility] REFLEX MORPHOLOGY - DO NOT ORDER 2024-04-24 16:35:00 Jacqueline Jimenez [facility] BASIC METABOLIC PANEL 2024-04-24 16:34:00 Johnna Jimenez [facility] HEPATIC FUNCTION PANEL 2024-04-24 16:34:00 Viridiana Jimenez [facility] ETHANOL LEVEL 2024-04-24 16:34:00 [facility]ITATIVE[facility] 2024-04-24 16:34:00 Zara Jimenez [facility] Epic PROTIME-INR 2024-04-24 16:34:00 Jacqueline Jimenez [facility] [place] Epic PTT 2024-04-24 16:34:00 Jacqueline Jimenez [facility] ANGIOGRAM HEAD 2024-04-05 06:45:52 Haroon [facility] CT ANGIOGRAM NECK 2024-04-05 06:45:52 Haroon [facility] XR CHEST 1 VW 2024-04-05 06:43:02 Haroon [facility] URINE DRUG (IMMUNOASSAY) - COMPREHENSIVE DRUG SCREEN 2024-04-05 05:37:00 Haroon [facility] URINALYSIS 2024-04-05 05:37:[address] [facility] LIPASE 2024-04-05 05:22:00 Haroon [facility] TEST, SERUM 2024-04-05 05:22:00 Haroon [facility] TROPONIN I 2024-04-05 05:22:00 Haroon [facility] COMP. METABOLIC PANEL ([id number]) 2024-04-05 05:22:00 Haroon [facility] ETHANOL 2024-04-05 05:22:00 Haroon [facility] CBC WITH DIFF 2024-04-05 05:22:00 Haroon [facility] PROTHROMBIN TIME / INR 2024-04-05 05:22:00 Sadiq Patiño [facility] ED LACERATION REPAIR 2024-03-31 03:15:23 Vincent Hernandez [facility] CT MAXILLOFACIAL/MANDIBLE WO CONTRAST 2024-03-31 01:22:29 Bashir [facility] CT TRAUMA HEAD WO CONTRAST 2024-03-31 01:22:29 Bashir [facility] RAPID STREP SCREEN FOR GROUP A 2024 20:21:00 Jayden Johansen [facility] POCT TEST 2024 20:17:00 Jayden Johansen [facility] XR WRIST 3+ VW RIGHT 2024-01-03 15:50:47 Yunior González Mirza [facility] POCT TEST 2023-12-08 20:33:00 Madhuri Cabrera [facility] URINALYSIS 2023-12-08 20:04:00 Krista Cabrera [facility] URINE DRUG (IMMUNOASSAY) - COMPREHENSIVE DRUG SCREEN W/O REFLEX 2023-12-08 20:04:00 [facility] + LACTIC ACID 2023-12-08 19:29:00 Krista Cabrera [facility] LIPASE 2023-12-08 19:21:00 Krista Cabrera [facility] MAGNESIUM 2023-12-08 19:21:00 Krista Cabrera [facility] COMP. METABOLIC PANEL ([id number]) 2023-12-08 19:21:00 [facility] 2023-12-08 19:21:00 Krista Cabrera [facility] CBC WITH DIFF 2023-12-08 19:21:00 Krista Cabrera [facility] ETHANOL 2023-12-06 08:39:00 Lorenzo Ashford [facility] COMP. METABOLIC PANEL ([id number]) 2023-12-06 02:31:00 Bashir [facility] ETHANOL 2023-12-06 02:31:00 Valeria Hernandez [facility] CBC WITH DIFF 2023-12-06 02:31:00 [facility] POCT TEST 2023-12-05 03:09:00 Jonelle Connell [facility] TEST, URINE 2023-12-05 03:01:00 Romana Connell [facility] COMP. METABOLIC PANEL ([id number]) 2023-12-05 03:01:00 Jonelle Connell [facility] SALICYLATE 2023-12-05 03:01:00 [facility] ETHANOL 2023-12-05 03:01:00 Jonelle Connell [facility] CBC WITH DIFF 2023-12-05 03:01:00 Jonelle Connell [facility] URINALYSIS 2023-12-05 03:01:00 Dakotah Connell[facility] URINE DRUG (IMMUNOASSAY) - COMPREHENSIVE DRUG SCREEN W/O REFLEX 2023-12-05 03:01:00 Jonelle Connell [facility] CT CERVICAL SPINE WO CONTRAST 2023-11-22 18:24:35 Nba Balderas [facility] CT HEAD WO CONTRAST 2023-11-22 18:24:35 Dalton Balderas [facility] LIPASE 2023-11-22 17:12:00 [facility] 2023-11-22 17:12:00 Nba Balderas Un [facility] COMP. METABOLIC PANEL ([id number]) 2023-11-22 17:12:00 Nba Balderas [facility] TOTAL BETA HCG ASSAY 2023-11-22 17:12:00 Hany Balderas [facility] ETHANOL 2023-11-22 17:12:00 Nba Balderas Un [facility] CBC WITH DIFF 2023-11-22 17:12:00 N[facility] 2023-11-22 17:12:00 Nba Balderas Un [facility] INFLUENZA A/B RSV COVID NAAT 2023-11-10 04:53:00 Alyssia Miranda [facility] POCT TEST 2023-11-10 04:25:00 Alyssia Montelongo [facility] URINALYSIS 2023-11-10 04:21:00 Alyssia Miranda [facility] URINE DRUG (IMMUNOASSAY) - COMPREHENSIVE DRUG SCREEN W/O REFLEX 2023-11-10 04:21:00 Alyssia Miranda [facility] CREATINE KINASE 2023-11-10 04:14:00 Alyssia Miranda [facility] THYROID STIMULATING HORMONE 2023-11-10 04:14:00 Alyssia Miranda [facility] COMP. METABOLIC PANEL ([id number]) 2023-11-10 04:14:00 Alyssia Miranda Lea [facility] SALICYLATE 2023-11-10 04:14:00 AufderAlyssia gardiner [facility] ETHANOL 2023-11-10 04:14:00 Alyssia Miranda [facility] CBC WITH DIFF 2023-11-10 04:14:00 Alyssia Miranda [facility] PHOSPHORUS 2023-11-09 10:12:00 Phillip Devi [facility] MAGNESIUM 2023-11-09 10:12:00 Marito [facility] HEPATIC FUNCTION PANEL ([id number]) (ALB,T.PRO,BILI T,BU/BC,ALT,AST,ALK PHOS) 2023-11-09 10:12:00 Phillip Devi [facility] BASIC METABOLIC PANEL (NA, K, CL, CO2, GLUCOSE, BUN, CREATININE, CA) 2023-11-09 10:12:00 Phillip Devi [facility] CBC WITHOUT DIFF 2023-11-09 10:12:00 [facility] 2023-11-08 20:35:00 William Castorena [facility] MAGNESIUM 2023-11-08 20:35:00 William Castorena [facility] BASIC METABOLIC PANEL (NA, K, CL, CO2, GLUCOSE, BUN, CREATININE, CA) 2023-11-08 20:35:00 William Castorena [facility] CT HEAD WO CONTRAST 2023-11-08 10:42:52 William Castorena [facility] PHOSPHORUS 2023-11-08 08:59:00 Marito [facility] MAGNESIUM 2023-11-08 08:59:00 Marito [facility] VITAMIN B12, LEVEL 2023-11-08 08:59:00 Marito [facility] FOLATE 2023-11-08 08:59:00 Marito [facility] HEPATIC FUNCTION PANEL ([id number]) (ALB,T.PRO,BILI T,BU/BC,ALT,AST,ALK PHOS) 2023-11-08 08:59:00 Marito [facility] BASIC METABOLIC PANEL (NA, K, CL, CO2, GLUCOSE, BUN, CREATININE, CA) 2023-11-08 08:59:00 Marito [facility] CBC WITHOUT DIFF 2023-11-08 08:59:00 Phillip Devi [facility] HEPATIC FUNCTION PANEL ([id number]) (ALB,T.PRO,BILI T,BU/BC,ALT,AST,ALK PHOS) 2023-11-07 07:22:00 Marito [facility] BASIC METABOLIC PANEL (NA, K, CL, CO2, GLUCOSE, BUN, CREATININE, CA) 2023-11-07 07:22:00 [facility] CBC WITH DIFF 2023-11-07 07:22:00 Eduar Echevarria [facility] LACTIC ACID WHOLE BLOOD 2023-11-07 07:22:00 Nichole Castorena mmad [facility] PHOSPHORUS 2023-11-07 00:58:00 Eduar Echevarria [facility] MAGNESIUM 2023-11-07 00:58:00 Eduar Echevarria [facility] ACUTE CARE VENOUS BLOOD GAS 2023-11-07 00:57:00 Eduar Echevarria [facility] LACTIC ACID WHOLE BLOOD 2023-11-07 00:57:00 Kev Echevarria [facility] MRSA / MSSA SCREEN BY PCR, NARES 2023-11-06 21:48:00 Eduar Echevarria [facility] CRITICAL CARE 2023-11-06 20:43:53 Krista Cabrera [facility] POCT TEST 2023-11-06 19:25:00 Madhuri Cabrera [facility] HB ECG ROUTINE & RHYTHM STRIP 2023-11-06 19:10:21 Krista Cabrera [facility] URINALYSIS 2023-11-06 18:51:00 Krista Cabrera [facility] URINE DRUG (IMMUNOASSAY) - COMPREHENSIVE DRUG SCREEN W/O REFLEX 2023-11-06 18:51:00 Krista Cabrera [facility] LIPASE 2023-11-06 18:43:00 Krista Cabrera [facility] MAGNESIUM 2023-11-06 18:43:00 Krista Cabrera [facility] TROPONIN I 2023-11-06 18:43:00 Krista Cabrera [facility] COMP. METABOLIC PANEL ([id number]) 2023-11-06 18:43:00 Krista Cabrera [facility] ETHANOL 2023-11-06 18:43:00 Krista Cabrera [facility] CBC WITH DIFF 2023-11-06 18:43:00 Krista Cabrera [facility] N-TERMINAL PRO-BNP 2023-11-06 18:43:00 Krista Cabrera [facility] AC PANEL 21 + LACTIC ACID 2023-11-06 18:43:00 Krista Cabrera [facility] ETHANOL 2023-10-28 16:15:00 [facility] 2023-10-28 11:09:00 Lorenzo Ashford [facility] POCT TEST 2023-10-28 03:42:00 Mia Marroquin ra [facility] COMP. METABOLIC PANEL ([id number]) 2023-10-28 03:27:00 Clementina Marroquin [facility] SALICYLATE 2023-10-28 03:27:00 Clement[facility] 2023-10-28 03:27:00 Clementina Marroquin Un [facility] CBC WITH DIFF 2023-10-28 03:27:00 Clement[facility]INALYSIS 2023-10-28 03:27:00 Clementina [facility] INFLU[facility] A/B RSV COVID NAAT 2023-10-28 03:27:00 Clementina Marroquin [facility] LAB ONLY COVID INTERPRETATION 2023-10-28 03:27:00 Clementina Marroquin [facility] URINE DRUG (IMMUNOASSAY) - COMPREHENSIVE DRUG SCREEN W/O REFLEX 2023-10-28 03:27:00 Clementina Marroquin [facility] POCT GLUCOSE(AGE >30DAYS) 2023-10-19 15:53:00 Zoë Singletary [facility] POCT GLUCOSE (AUTOMATED) 2023-10-19 15:52:00 Julio Singletary [facility] BASIC METABOLIC PANEL (NA, K, CL, CO2, GLUCOSE, BUN, CREATININE, CA) 2023-09-21 08:28:00 Lenore Braga [facility] PHOSPHORUS 2023-09-20 09:24:00 Phillip Devi [facility] LIPASE 2023-09-20 09:24:00 Santosh [facility] MAGNESIUM 2023-09-20 09:24:00 Marito [facility] HEPATIC FUNCTION PANEL ([id number]) (ALB,T.PRO,BILI T,BU/BC,ALT,AST,ALK PHOS) 2023-09-20 09:24:00 [facility] BASIC MET[facility]OLIC PANEL (NA, K, CL, CO2, GLUCOSE, BUN, CREATININE, CA) 2023-09-20 09:24:00 [facility] WITH DIFF 2023-09-20 09:24:00 Phillip Devi [facility] PROTHROMBIN TIME / INR 2023-09-20 09:24:00 [facility] D-DIMER 2023-09-20 09:24:00 [facility] PART[facility] THRMPLAS DAKOTAH 2023-09-20 09:24:00 Farzana Frost [facility] PROCALCITONIN 2023-09-20 09:24:00 [facility] LACTIC ACID WHOLE BLOOD 2023-09-19 20:59:00 Jose Quintanilla [facility] COVID-19 (ID NOW RAPID TESTING) 2023-09-19 20:58:00 Jose Quintanilla [facility] LAB ONLY COVID INTERPRETATION 2023-09-19 20:58:00 Jose Quintanilla [facility] XR CHEST 1 VW 2023-09-19 17:13:36 Jose Quintanilla [facility] BLOOD CULTURE SCREEN 2023-09-19 17:06:00 Jose Quintanilla [facility] CREATINE KINASE 2023-09-19 17:06:00 [facility] 2023-09-19 17:06:00 Jose Quintanilla [facility] COMP. METABOLIC PANEL ([id number]) 2023-09-19 17:06:00 Jose Quintanilla [facility] CBC WITH DIFF 2023-09-19 17:06:00 Jose Quintanilla [facility] LACTIC ACID WHOLE BLOOD 2023-09-19 17:05:00 Jose Quintanilla [facility] EKG-12 LEAD 2023-09-19 16:54:[facility]MON[facility] ANG[facility] 2023-09-15 17:19:16 Cecile Rangel [facility] POCT TEST 2023-09-15 16:53:00 Viola Rangel [facility] TROPONIN I 2023-09-15 16:49:00 Cecile Rangel [facility] COMP. METABOLIC PANEL ([id number]) 2023-09-15 16:49:00 Cecile Rangel [facility] CBC WITH DIFF 2023-09-15 16:49:00 Cecile Rangel [facility] D-DIMER 2023-09-15 16:49:00 Cecile Rangel [facility] URINALYSIS 2023-09-15 16:49:00 Cecile Rangel [facility] N-TERMINAL PRO-BNP 2023-09-15 16:49:00 Ria Rangel [facility] LACTIC ACID WHOLE BLOOD 2023-09-15 16:48:00 Vivek Rangel [facility] HB ECG ROUTINE & RHYTHM STRIP 2023-09-15 16:44:45 Cecile Rangel [facility] POCT TEST 2023-09-14 00:14:00 Brednen Olmstead [facility] XR CHEST 2 VW 2023-09-14 00:08:48 Ishan [facility] RAPID STREP SCREEN FOR GROUP A 2023-09-13 23:31:00 Ishan [facility] RAPID INFLUENZA A/B 2023-09-13 23:31:00 Brenden Olmstead [facility] COVID-19 (ID NOW RAPID TESTING) 2023-09-13 23:31:00 Ishan [facility] MAGNESIUM 2023-04-27 10:01:00 William Castorena [facility] COMP. METABOLIC PANEL ([id number]) 2023-04-27 10:01:00 William Castorena [facility] CBC WITH DIFF 2023-04-27 10:01:00 [facility] TRANSTHORACIC ECHO (TTE) COMPLETE 2023-04-26 20:20:00 Eduar Echevarria [facility] LIPASE 2023-04-26 11:39:00 William Castorena [facility] MAGNESIUM 2023-04-26 11:39:00 William Castorena [facility] COMP. METABOLIC PANEL ([id number]) 2023-04-26 11:39:00 William Castorena [facility] CBC WITH DIFF 2023-04-26 11:39:00 [facility]OT[facility] TIME / INR 2023-04-26 11:39:00 Nat Castorena [facility] ACTIVATED PARTIAL THRMPLAS DAKOTAH 2023-04-26 11:39:00 William Castorena [facility] URINE DRUG (IMMUNOASSAY) - COMPREHENSIVE DRUG SCREEN 2023-04-25 10:51:00 William Castorena [facility] LIPASE 2023-04-25 10:46:00 William Castorena Uni [facility] MAGNESIUM 2023-04-25 10:46:00 William Castorena [facility] COMP. METABOLIC PANEL ([id number]) 2023-04-25 10:46:00 William Castorena [facility] CBC WITH DIFF 2023-04-25 10:46:00 [facility] PROT[facility]OMBIN TIME / INR 2023-04-25 10:46:00 Nat Castorena [facility] ACTIVATED PARTIAL THRMPLAS DAKOTAH 2023-04-25 10:46:00 William aCstorena [facility] N-TERMINAL PRO-BNP 2023-04-25 10:46:00 William Castorena [facility] LACTIC ACID WHOLE BLOOD 2023-04-25 10:46:00 Nichole Castorena mmad [facility] PHOSPHORUS 2023-04-25 04:50:00 William Castorena [facility] CT ABDOMEN PELVIS W CONTRAST 2023-04-25 01:17:35 Jose Quintanilla [facility] URINALYSIS 2023-04-24 23:43:00 Jose Quintanilla [facility] POCT TEST 2023-04-24 23:41:00 Jose Quintanilla e [facility] AMMONIA, PLASMA 2023-04-24 23:32:00 Jose [facility] ECG ROUTINE & RHYTHM STRIP 2023-04-24 22:36:50 Jose Quintanilla [facility] LIPASE 2023-04-24 22:23:00 [facility] 2023-04-24 22:23:00 [facility] COMP. METABOLIC PANEL ([id number]) 2023-04-24 22:23:00 Jose Quintanilla [facility] ETHANOL 2023-04-24 22:23:00 Jose [facility]illa [facility] CBC WITH DIFF 2023-04-24 22:23:00 Jose Quintanilla [facility] PROTHROMBIN TIME / INR 2023-04-24 22:23:00 Jose Quintanilla [facility] ACTIVATED PARTIAL THRMPLAS DAKOTAH 2023-04-24 22:23:00 Jose Quintanilla [facility] CONSENT/REFUSAL FOR DIAGNOSIS AND TREATMENT 2023-04-24 21:03:16 Doctor Unassigned, [place] [facility] XR FOOT 3+ VW LEFT 2022-12-12 14:30:15 Alma Rosa Roberson [facility] ASSIGNMENT OF BENEFITS 2022-12-12 14:03:23 Docto r Unassigned, [place] [facility] CONSENT/REFUSAL FOR DIAGNOSIS AND TREATMENT 2022-12-12 14:03:11 Doctor Unassigned, [place] [facility] PHOSPHORUS 2022-11-13 10:22:00 Johanna [facility] MAGNESIUM 2022-11-13 10:22:00 Whiteside [facility] BASIC METABOLIC PANEL (NA, K, CL, CO2, GLUCOSE, BUN, CREATININE, CA) 2022-11-13 10:22:[address] [facility] CBC WITHOUT DIFF 2022-11-13 10:22:00 Whiteside, [facility] POCT GLUCOSE (AUTOMATED) 2022-11-12 23:12:00 Juan Cardoso [facility] MAGNESIUM 2022-11-12 09:47:00 Myles Santillan [facility] BASIC METABOLIC PANEL (NA, K, CL, CO2, GLUCOSE, BUN, CREATININE, CA) 2022-11-12 09:47:00 Myles Santillan [facility] CBC WITH DIFF 2022-11-12 09:47:00 Myles Santillan [facility] POCT GLUCOSE (AUTOMATED) 2022-11-11 18:34:00 Sadiq Robertson [facility] POCT GLUCOSE (AUTOMATED) 2022-11-11 17:51:00 Sadiq Robertson [facility] POCT GLUCOSE (AUTOMATED) 2022-11-11 12:16:00 Sadiq Robertson [facility] LIPASE 2022-11-11 09:43:00 Shara Isael [facility] MAGNESIUM 2022-11-11 09:43:00 Yasir Chaney [facility] COMP. METABOLIC PANEL ([id number]) 2022-11-11 09:43:00 Isael Olmedo [facility] CBC WITH DIFF 2022-11-11 09:43:00 Isael Olmedo [facility] MRSA / MSSA SCREEN BY PCR, NARES 2022-11-11 01:32:00 Jeremy Velez [facility] LIPASE 2022-11-10 22:21:00 Adelina Judge [facility] FOLATE 2022-11-10 22:21:00 Shara Isael [facility] TEST, SERUM 2022-11-10 22:21:00 Jason Judge [facility] COMP. METABOLIC PANEL ([id number]) 2022-11-10 22:21:00 Adelina Judge [facility] ETHANOL 2022-11-10 22:21:00 Adelina Judge [facility] CBC WITH DIFF 2022-11-10 22:21:00 Adelina Judge [facility] CONSENT/REFUSAL FOR DIAGNOSIS AND TREATMENT 2022-11-10 21:39:27 Doctor Unassigned, [place] [facility] CRITICAL CARE 2022-11-10 21:38:00 Slim Hightower [facility] LIPASE 2022-11-07 09:37:00 William Castorena [facility] MAGNESIUM 2022-11-07 09:37:00 William Castorena [facility] HEPATIC FUNCTION PANEL ([id number]) (ALB,T.PRO,BILI T,BU/BC,ALT,AST,ALK PHOS) 2022-11-07 09:37:00 William Castorena [facility] BASIC METABOLIC PANEL (NA, K, CL, CO2, GLUCOSE, BUN, CREATININE, CA) 2022-11-07 09:37:00 William Castorena [facility] LIPID PANEL ([id number])(TOTAL CHOLESTEROL, TRIGLYCERIDES, HDL) 2022-11-07 09:37:00 William Castorena [facility] CBC WITH DIFF 2022-11-07 09:37:00 [facility] TIME / INR 2022-11-07 09:37:00 Nat Castorena [facility] ACTIVATED PARTIAL THRMPLAS DAKOTAH 2022-11-07 09:37:00 William Castorena [facility] US GALL BLADDER 2022-11-06 09:32:53 Suleman Lopez [facility] [facility] ABDOMEN PELVIS W CONTRAST 2022-11-06 06:57:00 Zoë Singletary [facility] LIPASE 2022-11-06 06:32:00 Zoë Singletary [facility] COMP. METABOLIC PANEL (43202) 2022-11-06 06:32:00 Zoë Singletary [facility] ETHANOL 2022-11-06 06:32:00 [facility] CBC WITH DIFF 2022-11-06 06:32:00 Zoë Singletary [facility] URINALYSIS 2022-11-06 06:18:00 Zoë Singletary [facility] POCT TEST 2022-11-06 06:18:00 Zoë Singletary [facility] CONSENT/REFUSAL FOR DIAGNOSIS AND TREATMENT 2022-11-06 06:01:51 Doctor Unassigned, [place] [facility] POCT TEST 2022-08-28 02:47:00 Marguerite Best [facility] NOTICE OF PRIVACY PRACTICES 2022-08-28 01:31:41 Doctor Unassigned, [place] [facility] CONSENT/REFUSAL FOR DIAGNOSIS AND TREATMENT 2022-08-28 01:30:51 Doctor Unassigned, [place] [facility] BASIC METABOLIC PANEL (NA, K, CL, CO2, GLUCOSE, BUN, CREATININE, CA) 2022-04-13 00:10:00 Lacey Suggs [facility] CBC WITH DIFF 2022-04-13 00:10:00 Lacey Suggs [facility] CONSENT/REFUSAL FOR DIAGNOSIS AND TREATMENT 2022-04-12 21:08:37 Doctor Unassigned, [place] [facility] CONSENT/REFUSAL FOR DIAGNOSIS AND TREATMENT 2022-04-09 05:40:38 Doctor Unassigned, [place] [facility] BASIC METABOLIC PANEL (NA, K, CL, CO2, GLUCOSE, BUN, CREATININE, CA) 2022-04-05 22:24:00 Lenore Alarcon [facility] CBC WITH DIFF 2022-04-05 22:24:00 Lenore Alarcon [facility] CONSENT/REFUSAL FOR DIAGNOSIS AND TREATMENT 2022-04-05 19:50:28 Doctor Unassigned, [place] [facility] POCT Glucose Ramya barton [facility] ECG 12 lead (arrhythmia) Mem orial [place] Epic NM HIDA WITHOUT EF [facility] Encounters Start Date/Time End Date/Time Encounter Type Admission Type Attending [facility] Care Facility Care Department Encounter ID Source 2023-03-06 08:02:00 [facility] [id number] [facility] 2023-03-05 10:16:00 Out[facility] [id number] [facility] 2023-03-04 11:18:00 [facility] [id number] [facility] 2022-07-27 10:23:00 Outpatient Shepard, Leander STLMLC STLMLC [id number] [facility] 2022-06-13 14:55:45 Outpatient [facility] [id number] [facility] 2022-05-30 09:48:00 Outpatient Shepard, Leander STLMLC STLMLC [id number] [facility] 2021-11-13 13:38:00 Outpatient Shepard, Leander STLC STLMLC [id number] [facility] 2021-11-10 10:45:18 Outpatient CATHIE GONZALEZ [facility] SOR [id number] [facility] 2021-11-09 09:43:50 Outpatient CATHIE GONZALEZ [facility] SOR [id number] [facility] 2021-11-08 16:22:13 Outpatient CATHIE GONZALEZ [facility] SOR [id number] [facility] 2021-05-17 14:17:09 Outpatient Shepard, Leander STLC STLC [id number] [facility] 2021-05-17 13:50:42 Outpatient Shepard, Leander STLC STLMLC [id number] [facility] 2021-05-17 13:50:27 Outpatient Shepard, Leander STLC STLMLC [id number] [facility] 2021-05-17 13:28:45 Outpatient Shepard, Leander STLC STLMLC [id number] [facility] 2021-05-17 12:51:57 Outpatient Shepard, Leander STLC STLMLC [id number] [facility] 2021-05-17 12:45:56 Outpatient Shepard, Leander STLMLC STLMLC [id number] [facility] 2021-05-17 12:39:56 Outpatient Shepard, Leander STLC STLMLC [id number] [facility] 2021-05-17 12:39:35 Outpatient Shepard, Leander STLMLC STLMLC [id number] [facility] 2021-05-17 12:38:37 Outpatient Shepard, Leander STLMLC STLMLC [id number] [facility] 2021-05-17 12:33:47 Outpatient Shepard, Leander STLMLC STLMLC [id number] [facility] 2021-05-17 12:32:33 Outpatient Shepard, Leander STLMLC STLMLC [id number] [facility] 2021-05-17 12:29:13 Outpatient Shepard, Leander STLMLC STLMLC [id number] [facility] 2021-05-17 12:25:07 Outpatient Shepard, Leander STLMLC STLMLC [id number] [facility] 2021-05-17 12:24:31 Outpatient Shepard, Leander STLMLC STLMLC [id number] [facility] 2021-05-17 12:07:53 Outpatient Shepard, Leander STLMLC STLMLC [id number] [facility] 2021-05-17 12:07:23 Outpatient Shepard, Leander STLMLC STLMLC [id number] [facility] 2021-05-17 11:59:39 Outpatient Shepard, Leander STLMLC STLMLC [id number] [facility] 2021-05-17 11:37:35 Outpatient Shepard, Leander STLMLC STLMLC [id number] [facility] 2021-05-17 11:16:40 Outpatient Shepard, Leander STLMLC STLMLC [id number] [facility] 2021-05-17 11:10:01 Outpatient Shepard, Leander STLMLC STLMLC [id number] [facility] 2021-05-17 11:07:07 [facility] [id number] [facility] 2021-05-17 10:59:13 [facility] [id number] [facility] 2021-05-17 10:57:50 [facility] [id number] [facility] 2021-02-19 19:59:15 Emergency [facility] [id number] [facility] 2021-02-19 15:25:26 Emergency [facility] [id number] [facility] 2024-06-03 13:19:21 2024-06-03 13:19:[address] [facility] [id number] [place] Sainz 2024-04-24 15:27:00 2024-04-25 16:50:00 Hospital Encounter Jacqueline Jimenez, Marguerite Paiz, Robert Patino [facility] 1..840.114 350.1.13.70 8.2.7.2.686 [id number] [facility] 2024-04-24 15:27:00 2024-04-25 16:50:00 Inpatient Emergency ERIC PATINO [facility] General Medicine [id number] [facility] 2024-04-04 23:07:00 2024-04-05 03:56:00 Emergency X MICHELLE PATIÑO SHINTA [facility] ERT [id number] [facility] 2024-04-04 23:07:00 2024-04-05 03:56:00 Emergency Michelle Patiño [facility] 1.2.840.114 350.1.13.10 4.2.7.2.686 [id number] [facility] 2024-03-30 18:37:00 2024-03-30 21:59:00 Emergency X VALERIA HERNANDEZ [facility] ERT [id number] [facility] 2024-03-30 18:37:00 2024-03-30 21:59:00 Emergency Valeria Hernandez [facility] 1.2.840.114 350.1.13.10 4.2.7.2.686 [id number] [facility] 2024-03-30 03:09:00 2024-03-30 03:49:00 Emergency X CLEMENTINA MARROQUIN SANDRA [facility] ERT [id number] [facility] 2024-03-30 03:09:00 2024-03-30 03:49:00 Emergency Clementina Marroquin [facility] 1..840.114 350.1.13.10 4.2.7.2.686 [id number] [facility] 2024-02-13 11:15:00 2024-02-13 11:15:00 Outpatient R CATHIE ROSS CRAIG [facility] [id number] [facility] 2024-02-06 11:15:00 2024-02-06 11:15:00 Outpatient R CATHIE ROSS CRAIG [facility] [id number] [facility] 2024-02-05 13:19:03 2024-02-05 23:59:00 Hospital Encounter Cathie Ross [facility] 1.2.840.114 350.1.13.10 4.2.7.2.686 [id number] [facility] 2024-02-05 13:30:00 2024-02-05 13:37:44 Outpatient R CATHIE ROSS CRAIG [facility] [id number] [facility] 2024-02-05 13:30:00 2024-02-05 13:37:44 [facility] 1.2.840.114 350.1.13.10 4.2.7.2.686 [id number] [facility] 2024 14:24:00 2024 16:14:00 Emergency X BENTON, JAYDEN JOHANSEN, JAYDEN [facility] ERT [id number] [facility] 2024 14:24:00 2024 16:14:00 Emergency Jayden Johansen [facility] 1.2.840.114 350.1.13.10 4.2.7.2.686 [id number] [facility] 2024-01-23 11:12:44 2024-01-23 23:59:00 Outpatient O CATHIE ROSS CRAIG [facility] [id number] [facility] 2024-01-23 11:12:44 2024-01-23 23:59:00 Hospital En[facility] 1.2.840.114 350.1.13.10 4.2.7.2.686 [id number] [facility] 2024-01-23 11:15:00 2024-01-23 12:12:25 Office Visit Cathie Ross [facility] 1.2.840.114 350.1.13.10 4.2.7.2.686 [id number] [facility] 2024-01-06 16:50:10 2024-01-06 16:50:10 Outpatient SFA MAYELA [id number] [place] F Alistair 2024-01-03 10:37:56 2024-01-03 23:59:00 Outpatient R CATHIE ROSS CRAIG [facility] [id number] [facility] 2024-01-03 10:37:56 2024-01-03 23:59:00 Hospital Encounter Cathie Ross [facility] 1.2.840.114 350.1.13.10 4.2.7.2.686 [id number] [facility] 2024-01-03 10:30:00 2024-01-03 11:05:38 Office Visit Cathie Ross [facility] 1.2.840.114 350.1.13.10 4.2.7.2.686 [id number] [facility] 2023-12-27 15:35:00 2023-12-27 20:32:00 Emergency X KANDY CHAVEZ JOHNNA [facility] ERT [id number] [facility] 2023-12-27 15:35:00 2023-12-27 20:32:00 Emergency Kandy Chavez [facility] 1..840.114 350.1.13.10 4.2.7.2.686 [id number] [facility] 2023-12-27 10:00:00 2023-12-27 10:00:00 Outpatient R CATHIE ROSSONALDCATHIE [facility] [id number] [facility] 2023-12-16 06:24:00 2023-12-16 08:37:00 Emergency X LORENZO ASHFORD WAKILI [facility] ERT [id number] [facility] 2023-12-16 06:24:00 2023-12-16 08:37:00 Emergency Lorenzo Ashford [facility] 1.2.840.114 350.1.13.10 4.2.7.2.686 [id number] [facility] 2023-12-08 14:12:00 2023-12-08 17:39:00 Emergency X KRISTA CABRERA DONNELL [facility] ERT [id number] [facility] 2023-12-08 14:12:00 2023-12-08 17:39:00 Emergency Krista Cabrera [facility] 1.2.840.114 350.1.13.10 4.2.7.2.686 [id number] [facility] 2023-12-05 20:46:00 2023-12-06 09:06:00 Emergency X LORENZO ASHFORD, LORENZO [facility] ERT [id number] [facility] 2023-12-05 20:46:00 2023-12-06 09:06:00 Emergency Valeria Hernandez Miltonroxann S [facility] 1.2840.114 350.1.13.10 4.2.7.2.686 [id number] [facility] 2023-12-04 21:40:00 2023-12-05 01:00:00 Emergency X LORENZO ASHFORD, LORENZO [facility] ERT [id number] [facility] 2023-12-04 21:40:00 2023-12-05 01:00:00 Emergency Jonelle Connell, Miltonli S [facility] 1.2.840.114 350.1.13.10 4.2.7.2.686 [id number] [facility] 2023-11-22 12:02:00 2023-11-22 16:58:00 Emergency X NBA BALDERAS [facility] ERT [id number] [facility] 2023-11-22 12:02:00 2023-11-22 16:58:00 Emergency Dwain Balderasa [facility] 1.2.840.114 350.1.13.10 4.2.7.2.686 [id number] [facility] 2023-11-11 00:00:00 2023-11-11 09:55:02 Patient Outreach TaliKaitlinLauren Ajay [facility] 1..840.114 350.1.13.10 4.2.7.2.686 [id number] [facility] 2023-11-09 22:30:00 2023-11-10 02:12:00 Emergency X VALERIO LOWE WILLIAM [facility] ERT [id number] [facility] 2023-11-09 22:30:00 2023-11-10 02:12:00 Emergency Alyssia Miranda William B [facility] 1..840.114 350.1.13.10 4.2.7.2.686 [id number] [facility] 2023-11-06 13:20:00 2023-11-09 11:54:00 Inpatient X PHILLIP DEVI [facility] JENIFFER [id number] [facility] 2023-11-06 13:20:00 2023-11-09 11:54:00 Hospital Encounter Krista Cabrera David Oville, Jelani [facility] 1..840.114 350.1.13.10 4.2.7.2.686 [id number] [facility] 2023-10-27 22:09:00 2023-10-28 13:11:00 Emergency X JONELLE CONNELL JONELLE [facility] ERT [id number] [facility] 2023-10-27 22:09:00 2023-10-28 13:11:00 Emergency Zoë Singletary Jonelle [facility] 1..840.114 350.1.13.10 4.2.7.2.686 [id number] [facility] 2023-10-19 10:39:00 2023-10-19 11:33:00 Emergency X ZOË SINGLETARY PAMALA [facility] ERT [id number] [facility] 2023-10-19 10:39:00 2023-10-19 11:33:00 Emergency Zoë Singletary G [facility] 1.2.840.114 350.1.13.10 4.2.7.2.686 [id number] [facility] 2023-10-18 19:19:00 2023-10-18 21:09:00 Emergency X KRISTA CABRERA DONNELL [facility] ERT [id number] [facility] 2023-10-18 19:19:00 2023-10-18 21:09:00 Emergency Krista Cabrera [facility] 1.2.840.114 350.1.13.10 4.2.7.2.686 [id number] [facility] 2023-09-19 11:52:00 2023-09-21 11:57:00 [facility] [id number] [facility] 2023-09-19 11:52:00 2023-09-21 11:57:00 Hospital En[facility]Jose [facility]nandez [facility] 1.2.840.114 350.1.13.10 4.2.7.2.686 [id number] [facility] 2023-09-15 11:26:00 2023-09-15 13:28:00 Emergency X VANE RANGELANNE [facility] ERT [id number] [facility] 2023-09-15 11:26:00 2023-09-15 13:28:00 Emergency RangelCecile merritt [facility] 1.2.840.114 350.1.13.10 4.2.7.2.686 [id number] [facility] 2023-09-13 18:06:00 2023-09-13 20:03:00 Emergency X ISHAN, ELENO ISHAN, [facility] UPMCRENETTA [facility] ERT [id number] [facility] 2023-09-13 18:06:00 2023-09-13 20:03:00 Emergency Eleno Olmstead [facility] 1.2.840.114 350.1.13.10 4.2.7.2.686 [id number] [facility] 2023-06-21 00:00:00 2023-06-21 00:00:00 (TEL) STLMLC STLMLC [id number] [facility] 2023-06-21 00:00:00 2023-06-21 00:00:00 (TEL) STLMLC STLMLC [id number] [facility] 2023-06-11 00:00:00 2023-06-11 00:00:00 OFFICE VISIT ESTAB PT LEVEL 3 STLMLC STLMLC [id number] [facility] 2023-05-08 00:00:00 2023-05-08 00:00:00 (TEL) STLMLC STLMLC [id number] [facility] 2023-05-01 00:00:00 2023-05-01 00:00:00 Telephone Adrian Leija [facility] 1.2.840.114 350.1.13.10 4.2.7.2.686 [id number] [facility] 2023-05-01 00:00:00 2023-05-01 00:00:00 Patient Secure Msg Doctor Unassigned, [place] [facility] 1.2.840.114 350.1.13.10 4.2.7.2.686 [id number] [facility] 2023-04-30 14:00:00 2023-04-30 14:30:10 Outpatient R ADRIAN LEIJA [facility] [id number] [facility] 2023-04-30 14:00:00 2023-04-30 14:30:10 Urgent Care Adrian Leija Unknown, Attending [facility] 1.2.840.114 350.1.13.10 4.2.7.2.686 [id number] [facility] 2023-04-30 00:00:00 2023-04-30 00:00:00 Transition of Care Thelma Slaughter 1.2.840.114 350.1.13.10 4.2.7.2.686 [id number] [facility] 2023-04-24 15:22:00 2023-04-27 09:58:00 Inpatient X WILLIAM CASTORENA [facility] [id number] [facility] 2023-04-24 15:22:00 2023-04-27 09:58:00 Hospital Encounter Jose Quintanilla Mohammad A. [facility] 1..840.114 350.1.13.10 4.2.7.2.686 [id number] [facility] 2023-03-07 00:00:00 2023-03-07 00:00:00 (TEL) STLMLC STLMLC [id number] [facility] 2023-03-07 00:00:00 2023-03-07 00:00:00 (TEL) STLMLC STLMLC [id number] [facility] 2023-03-06 00:00:00 2023-03-06 00:00:00 OFFICE VISIT ESTAB PT LEVEL 3 STLMLC STLMLC [id number] [facility] 2023-02-06 00:00:00 2023-02-06 00:00:00 (TEL) STLMLC STLMLC [id number] [facility] 2023-01-21 00:00:00 2023-01-21 00:00:00 (TEL) STLC STLC [id number] [facility] 2023-01-12 02:25:00 2023-01-12 05:16:00 Emergency EM Jacob Jacobs [facility] [id number] 49 [facility] 2023-01-04 00:00:00 2023-01-04 00:00:00 OFFICE VISIT ESTAB PT LEVEL 3 STLMLC STLC [id number] [facility] 2023-01-01 00:00:00 2023-01-01 00:00:00 (TEL) STLMLC STLMLC [id number] [facility] 2022-12-12 09:13:33 2022-12-12 23:59:00 Outpatient R ALMA ROSA ROBERSON [facility] [id number] [facility] 2022-12-12 09:13:33 2022-12-12 23:59:00 Hospital Encounter Alma Rosa Roberson [facility] 1.2.840.114 350.1.13.10 4.2.7.2.686 [id number] [facility] 2022-12-12 09:00:00 2022-12-12 09:20:00 Urgent Care DaAlma Rosa Unknown, Attending [facility] 1.2.840.114 350.1.13.10 4.2.7.2.686 [id number] [facility] 2022-12-12 00:00:00 2022-12-12 00:00:00 Orders Only Doctor Unassigned, [place] [facility] 1.840.114 350.1.13.10 4.2.7.2.686 [id number] [facility] 2022-12-12 00:00:00 2022-12-12 00:00:00 (TEL) [facility] [id number] [facility] 2022-12-06 00:00:00 2022-12-06 00:00:00 (TEL) [facility] [id number] [facility] 2022-11-14 00:00:00 2022-11-14 00:00:00 Transition of Care Thelma Slaughter 1..840.114 350.1.13.10 4.2.7.2.686 [id number] [facility] 2022-11-10 16:54:00 2022-11-13 18:24:00 Inpatient X JUAN CHAVEZ [facility] [id number] [facility] 2022-11-10 16:54:00 2022-11-13 18:24:00 Hospital Encounter Adelina Judge, Juan Laguerre [facility] 1..840.114 350.1.13.10 4.2.7.2.686 [id number] [facility] 2022-11-06 01:11:00 2022-11-07 14:51:00 Outpatient X EDUAR ECHEVARRIA [facility] [id number] [facility] 2022-11-06 01:11:00 2022-11-07 14:51:00 Emergency Zoë Singletary Mohammad A. Morris, David [facility] 1..840.114 350.1.13.10 4.2.7.2.686 [id number] [facility] 2022-10-30 00:00:00 2022-10-30 00:00:00 OFFICE VISIT ESTAB PT LEVEL 4 [facility] [id number] [facility] 2022-10-01 00:00:00 2022-10-01 00:00:00 (TEL) [facility] STLC [id number] [facility] 2022-08-27 20:56:00 2022-08-27 22:56:00 Emergency X BARBARA, MARGUERITE [facility] ERT [id number] [facility] 2022-08-27 20:56:00 2022-08-27 22:56:00 Emergency Marguerite Best [facility] [id number] [facility] 2022-08-09 00:00:00 2022-08-09 00:00:00 (TEL) [facility] STL[facility]C [id number] [facility] 2022-07-31 00:00:00 2022-07-31 00:00:00 OFFICE VISIT ESTAB PT LEVEL 4 [facility] [id number] [facility] 2022-06-01 00:00:00 2022-06-01 00:00:00 OFFICE VISIT ESTAB PT LEVEL 4 [facility] ST[facility] [id number] [facility] 2022-05-21 08:30:00 2022-05-21 08:30:00 [facility]patient [facility] [id number] [facility] 2022-05-21 08:30:00 2022-05-21 08:30:00 Outpatient R EDY LIZBETH [facility] [id number] [facility] 2022-05-01 00:00:00 2022-05-01 00:00:00 (TEL) [facility] STL[facility]C [id number] [facility] 2022-04-24 00:00:00 2022-04-24 00:00:00 (TEL) [facility] ST[facility]C [id number] [facility] 2022-04-12 15:05:00 2022-04-12 19:50:00 Emergency [place] [facility] [facility] [id number] [facility] 2022-04-12 15:05:00 2022-04-12 19:50:00 Emergency Lacey Suggs [facility] [place] [facility] 1.2.840.114 350.1.13.10 4.2.7.2.686 [id number] [facility] 2022-04-12 00:00:00 2022-04-12 00:00:00 Telephone Oral Surgery [facility] 1.2.840.114 350.1.13.10 4.2.7.2.686 [id number] [facility] 2022-04-08 23:47:00 2022-04-09 00:39:00 Emergency X DWIGHT Jose [facility] ERT [id number] [facility] 2022-04-08 23:47:00 2022-04-09 00:39:00 Emergency Dwight Jose Alyssa [facility] 1.2.840.114 350.1.13.10 4.2.7.2.686 [id number] [facility] 2022-04-06 19:08:00 2022-04-06 22:00:00 Emergency Jian Samuel [facility] [place] [id number] [facility] 2022-04-05 14:09:00 2022-04-05 17:11:00 Emergency X LENORE ALARCON [facility] ERT [id number] [facility] 2022-04-05 14:09:00 2022-04-05 17:11:00 Emergency Lenore Alarcon S [facility] 1.2.840.114 350.1.13.10 4.2.7.2.686 [id number] [facility] 2022-03-02 00:00:00 2022-03-02 00:00:00 OFFICE VISIT ESTAB PT LEVEL 4 [facility] [id number] [facility] 2022-02-28 00:00:00 2022-02-28 00:00:00 (TEL) [facility] STLC [id number] [facility] 2022-01-15 09:00:00 2022-01-15 09:00:00 Outpatient R [facility] [id number] [facility] 2022-01-15 09:00:00 2022-01-15 09:00:00 Outpatient R [facility] [id number] [facility] 2022-01-15 09:00:00 2022-01-15 09:00:00 Outpatient R GERHARD CORTESRODGERMichelle [facility] [id number] [facility] 2022-01-15 09:00:00 2022-01-15 09:00:00 Outpatient R [facility] [id number] [facility] 2022-01-02 00:00:00 2022-01-02 00:00:00 OFFICE VISIT ESTAB PT LEVEL 4 [facility]C STL[facility]C [id number] [facility] 2021-12-04 12:37:10 2021-12-04 23:59:00 Hospital Encounter Kerrie Judge [facility] 1.2.840.114 350.1.13.10 4.2.7.2.686 [id number] [facility] 2021-12-04 16:00:00 2021-12-04 16:44:58 Office Visit [facility] MED[facility] BU[facility] 1.2.840.114 350.1.13.10 4.2.7.2.686 [id number] [facility] 2021-12-04 16:00:00 2021-12-04 16:44:58 [facility] [id number] [facility] 2021-12-04 16:00:00 2021-12-04 16:00:00 Outpatient R ALFIE [facility][NOTE 3] [id number] [facility] 2021-12-04 00:00:00 2021-12-04 00:00:00 Telephone Cathie Ross [facility] 1.2.840.114 350.1.13.10 4.2.7.2.686 [id number] [facility] 2021-12-04 00:00:00 2021-12-04 00:00:00 Telephone [facility] 1.2.840.114 350.1.13.10 4.2.7.2.686 [id number] [facility] 2021-11-29 15:15:00 2021-11-29 16:25:54 Office Visit Alfie [facility] [place]?[facility] 1.2.840.114 350.1.13.10 4.2.7.2.686 [id number] [facility] 2021-11-29 15:15:00 2021-11-29 16:25:54 Outpatient R ALFIE KERRIE [facility] [id number] [facility] 2021-11-29 15:15:00 2021-11-29 15:15:00 Outpatient R ALFIE [facility][NOTE 3] [id number] [facility] 2021-11-28 00:00:00 2021-11-28 00:00:00 [facility] 1.2.840.114 350.1.13.10 4.2.7.2.686 [id number] [facility] 2021-11-27 16:15:00 2021-11-27 16:15:00 Outpatient R CATHIE ROSS [facility] [id number] [facility] 2021-11-20 14:45:00 2021-11-20 15:20:56 Outpatient R CATHIE ROSS [facility] [id number] [facility] 2021-11-20 14:45:00 2021-11-20 15:20:56 Office Visit Cathie Ross [facility] 1..840.114 350.1.13.10 4.2.7.2.686 [id number] [facility] 2021-11-18 12:53:52 2021-11-18 23:59:00 Outpatient R DARIN SHINSSICA [facility] [id number] [facility] 2021-11-18 12:53:52 2021-11-18 23:59:00 Hospital Encounter Jacqueline Shin [facility] 1..840.114 350.1.13.10 4.2.7.2.686 [id number] [facility] 2021-11-18 12:40:00 2021-11-18 13:00:00 Urgent Care Jacqueline Shin Alma Rosa Roberson [facility] 1..840.114 350.1.13.10 4.2.7.2.686 [id number] [facility] 2021-11-18 00:10:00 2021-11-18 00:42:00 Emergency X LORENZO ASHFORD [facility] ERT [id number] [facility] 2021-11-18 00:10:00 2021-11-18 00:42:00 Emergency Lorenzo Ashford [facility] 1.840.114 350.1.13.10 4.2.7.2.686 [id number] [facility] 2021-11-17 00:00:00 2021-11-17 00:00:00 Orders Only Doctor Unassigned, [place] [facility] 1.840.114 350.1.13.10 4.2.7.2.686 [id number] [facility] 2021-11-16 13:30:00 2021-11-16 13:44:47 Office Visit Judge, [facility] MED[facility] 1.2.840.114 350.1.13.10 4.2.7.2.686 [id number] [facility] 2021-11-16 13:30:00 2021-11-16 13:44:47 Outpatient Vivek JUDGE [facility][NOTE 3] [id number] [facility] 2021-11-16 13:30:00 2021-11-16 13:30:00 Outpatient R ALFIE [facility][NOTE 3] [id number] [facility] 2021-11-15 00:00:00 2021-11-15 00:00:00 Telephone RossCathie sapp [facility] 1.2.840.114 350.1.13.10 4.2.7.2.686 [id number] [facility] 2021-11-13 14:00:00 2021-11-13 14:57:00 Surgery González Rossig Yuki [facility] 1.2.840.114 350.1.13.10 4.2.7.2.686 [id number] [facility] 2021-11-13 11:04:00 2021-11-13 14:30:00 Outpatient R CATHIE ROSS [facility] SOR [id number] [facility] 2021-11-13 11:04:00 2021-11-13 14:30:00 Hospital Encounter RossCathie [facility] 1.2.840.114 350.1.13.10 4.2.7.2.686 [id number] [facility] 2021-11-13 08:00:00 2021-11-13 09:01:53 Outpatient R EDY [facility] [id number] [facility] 2021-11-13 08:00:00 2021-11-13 09:01:53 Office Visit Lizbeth Snow [facility] MED[facility] OFF[facility] BUILD[facility] 1.2840.114 350.1.13.10 4.2.7.2.686 [id number] [facility] 2021-11-13 00:00:00 2021-11-13 00:00:00 Telephone Cathie [facility] 1.2840.114 350.1.13.10 4.2.7.2.686 [id number] [facility] 2021-11-10 10:43:14 2021-11-10 23:59:00 Hospital Encounter Cathie Ross [facility] 1.2840.114 350.1.13.10 4.2.7.2.686 [id number] [facility] 2021-11-10 11:15:00 2021-11-10 11:30:00 Crop Setting Out Machine Operator Visit Pob, Adc Lab Main Cathie Ross [facility] PROFESSIO NAL BUILDING 1..114 350.1.13.10 4.2.7.2.686 [id number] [facility] 2021-11-10 10:38:25 2021-11-10 10:42:00 Outpatient R CATHIE ROSS [facility] [id number] [facility] 2021-11-10 08:30:00 2021-11-10 08:45:00 Laboratory Only Only, Adc Test Cathie Ross [facility] 1.2840.114 350.1.13.10 4.2.7.2.686 [id number] [facility] 2021-11-10 00:00:00 2021-11-10 00:00:00 Telephone Cathie Ross [facility] 1.2840.114 350.1.13.10 4.2.7.2.686 [id number] [facility] 2021-11-10 00:00:00 2021-11-10 00:00:00 (TEL) STLC STLMLC [id number] [facility] 2021-11-09 00:00:00 2021-11-09 00:00:00 [facility] 1.2.840.114 350.1.13.10 4.2.7.2.686 [id number] [facility] 2021-11-09 00:00:00 2021-11-09 00:00:00 Telephone [facility] 1.2.840.114 350.1.13.10 4.2.7.2.686 [id number] [facility] 2021-11-08 15:30:00 2021-11-08 15:55:00 Outpatient R CATHIE ROSS [facility] [id number] [facility] 2021-11-08 15:30:00 2021-11-08 15:55:00 Office Visit [facility] 1..840.114 350.1.13.10 4.2.7.2.686 [id number] [facility] 2021-11-08 00:00:00 2021-11-08 00:00:00 Prep For Surgery Cathie [facility] 1..840.114 350.1.13.10 4.2.7.2.686 [id number] [facility] 2021-11-07 00:00:00 2021-11-07 00:00:00 (TEL) STLMLC STLMLC [id number] [facility] 2021-11-03 08:00:00 2021-11-03 08:00:00 Outpatient R JUDGEKERRIE [facility] [id number] [facility] 2021-10-30 14:00:00 2021-10-30 14:05:17 Outpatient R ALMA ROSA ROBERSON [facility] [id number] [facility] 2021-10-30 14:00:00 2021-10-30 14:05:17 Urgent Care Consuelo Vu [facility] [place]?[facility] MEDICAL OFFICE BUILDING 1.2.840.114 350.1.13.10 4.2.7.2.686 [id number] [facility] 2021-10-29 13:44:17 2021-10-29 23:59:00 Outpatient R KARINA GONZALES [facility] [id number] [facility] 2021-10-29 13:44:17 2021-10-29 23:59:00 [facility] [id number] [facility] 2021-10-29 13:44:17 2021-10-29 23:59:00 [facility] 1.2.840.114 350.1.13.10 4.2.7.2.686 [id number] [facility] 2021-10-29 14:40:00 2021-10-29 14:40:00 Urgent Care Cee [facility] [place]?[facility] 1.2.840.114 350.1.13.10 4.2.7.2.686 [id number] [facility] 2021-10-17 00:00:00 2021-10-17 00:00:00 OFFICE VISIT ESTAB PT LEVEL 4 STLMLC STLMLC [id number] [facility] 2021-10-05 00:00:00 2021-10-05 00:00:00 (WELLNESS) [facility] [id number] [facility] 2021-10-03 00:00:00 2021-10-03 00:00:00 (TEL) [facility] [id number] [facility] 2021-10-02 00:00:00 2021-10-02 00:00:00 (TEL) [facility] [id number] [facility] 2021-08-14 09:30:00 2021-08-14 09:53:56 Nurse Visit Visit, Ang-Rmchp Nurse Durga Cortes [facility] DREDGE CAPTAIN [facility] & CHILD [facility] 1.840.114 350.1.13.10 4.2.7.2.686 [id number] [facility] 2021-08-14 09:30:00 2021-08-14 09:30:00 Outpatient R [facility] [id number] [facility] 2021-08-14 09:30:00 2021-08-14 09:30:00 Outpatient R DURGA CORTES [facility] [id number] [facility] 2021-08-07 00:00:00 2021-08-07 00:00:00 (TEL) [facility] [id number] [facility] 2021-07-17 00:00:00 2021-07-17 00:00:00 Telephone Pratima Wu [facility] DREDGE CAPTAIN [facility] & CHILD [facility] 1..840.114 350.1.13.10 4.2.7.2.686 [id number] [facility] 2021-07-17 00:00:00 2021-07-17 00:00:00 Orders Only Doctor Unassigned, [place] [facility] 1..840.114 350.1.13.10 4.2.7.2.686 [id number] [facility] 2021-07-13 09:15:00 2021-07-13 09:58:35 Outpatient R PRATIMA WU [facility] [id number] [facility] 2021-07-13 09:15:00 2021-07-13 09:58:35 Office Visit Pratima Wu [facility] DREDGE CAPTAIN [facility] & CHILD [facility] 1.2.840.114 350.1.13.10 4.2.7.2.686 [id number] [facility] 2021-07-13 09:15:00 2021-07-13 09:58:35 Outpatient R PRATIMA WU [facility] [id number] [facility] 2021-07-13 00:00:00 2021-07-13 00:00:00 Letter (Out) Pratima Wu [facility] 1.2.840.114 350.1.13.10 4.2.7.2.686 [id number] [facility] 2021-07-13 00:00:00 2021-07-13 00:00:00 Telephone Pratima Wu [facility] 1.2.840.114 350.1.13.10 4.2.7.2.686 [id number] [facility] 2021-07-13 00:00:00 2021-07-13 00:00:00 OFFICE VISIT ESTAB PT LEVEL 4 STLMLC STLMLC [id number] [facility] 2021-07-03 01:43:00 2021-07-03 01:43:00 Outpatient GC_SWHAOMC_ Wallace_G [facility] [id number] [facility] 2021-06-14 00:00:00 2021-06-14 00:00:00 (TEL) STLMLC STLMLC [id number] [facility] 2021-06-04 14:00:00 2021-06-04 15:49:40 Outpatient R MARY SANCHEZ [facility] [id number] [facility] 2021-06-04 14:00:00 2021-06-04 14:20:00 Urgent Care Mary Sanchez Jessica [facility] MEDICAL OFFICE BUILDING 1.2.840.114 350.1.13.10 4.2.7.2.686 [id number] [facility] 2021-05-19 00:00:00 2021-05-19 00:00:00 OFFICE VISIT EST PT LEVEL 3 STLMLC STLMLC [id number] [facility] 2021-04-12 00:00:00 2021-04-12 00:00:00 Letter (Out) Zakiya Multani [facility] 1..840.114 350.1.13.10 4.2.7.2.686 [id number] [facility] 2021-04-11 11:15:00 2021-04-11 11:30:00 Laboratory Only Only, Ang Db Test Franki [facility] 1.2.840.114 350.1.13.10 4.2.7.2.686 [id number] [facility] 2021-04-11 11:15:00 2021-04-11 11:15:00 Outpatient R FRANKI MILEY [facility] [id number] [facility] 2021-04-11 00:00:00 2021-04-11 00:00:00 Orders Only Doctor Unassigned, [place] [facility] 1.2.840.114 350.1.13.10 4.2.7.2.686 [id number] [facility] 2021-04-08 00:00:00 2021-04-08 00:00:00 Patient Secure Msg Doctor Unassigned, [place] [facility] 1.0.114 350.1.13.10 4.2.7.2.686 [id number] [facility] 2021-03-21 00:00:00 2021-03-21 00:00:00 OFFICE VISIT ESTAB PT LEVEL 4 [facility] [id number] [facility] 2021-03-20 00:00:00 2021-03-20 00:00:00 (TEL[facility] [id number] [facility] 2021-03-17 00:00:00 2021-03-17 00:00:00 Telephone Jeovany Purvis [facility] 1.840.114 350.1.13.10 4.2.7.2.686 [id number] [facility] 2021-03-13 00:00:00 2021-03-13 00:00:00 Telephone Jeovany Purvis [facility] 1.840.114 350.1.13.10 4.2.7.2.686 [id number] [facility] 2021-03-08 00:00:00 2021-03-08 00:00:00 Transition of Care Tiff Funes 1.840.114 350.1.13.10 4.2.7.2.686 [id number] [facility] 2021-03-04 20:45:00 2021-03-07 17:42:00 Inpatient CAMILO BALLESTEROS [facility] JENIFFER [id number] [facility] 2021-03-04 20:45:00 2021-03-07 17:42:00 Hospital Encounter Morrical, Camilo Ansari [facility] 1..114 350.1.13.10 4.2.7.2.686 [id number] [facility] 2021-03-04 20:45:00 2021-03-07 17:42:00 Inpatient X CAMILO MORAN [facility] JENIFFER [id number] [facility] 2021-03-04 11:26:00 2021-03-04 12:01:00 Emergency X CLEMENTINA MARROQUIN [facility] ERT [id number] [facility] 2021-03-04 11:26:00 2021-03-04 12:01:00 Emergency Clementina Marroquin [facility] 1.2.840.114 350.1.13.10 4.2.7.2.686 [id number] [facility] 2021-02-28 23:10:00 2021-03-03 12:00:00 Outpatient X PHILLIP DEVI [facility] [id number] [facility] 2021-02-28 23:10:00 2021-03-03 12:00:00 Emergency Lenore Alarcon Jelani [facility] 1.2.840.114 350.1.13.10 4.2.7.2.686 [id number] [facility] 2021-02-28 23:10:00 2021-03-03 12:00:00 Outpatient X PHILLIP DEVI [facility] [id number] [facility] 2021-02-28 00:00:00 2021-02-28 00:00:00 (TEL) STLMLC STLMLC [id number] [facility] 2021-01-09 00:00:00 2021-01-09 00:00:00 OFFICE VISIT ESTAB PT LEVEL 4 STLMLC STLMLC [id number] [facility] 2020-11-10 00:00:00 2020-11-10 00:00:00 Outpatient STLMLC STLMLC [id number] [facility] 2020-10-11 00:00:00 2020-10-11 00:00:00 Outpatient STLMLC STLMLC [id number] [facility] 2020-08-18 00:00:00 2020-08-18 00:00:00 Transition of Care Tiff Funes 1.2.840.114 350.1.13.10 4.2.7.2.686 [id number] [facility] 2020-07-29 00:00:00 2020-07-29 00:00:00 Outpatient STLMLC STLMLC [id number] [facility] 2020-07-18 00:00:00 2020-07-18 00:00:00 Outpatient STLMLC STLMLC [id number] [facility] 2020-07-06 00:00:00 2020-07-06 00:00:00 Outpatient STLMLC STLMLC [id number] [facility] 2020-06-29 00:00:00 2020-06-29 00:00:00 Outpatient STLMLC STLMLC [id number] [facility] 2020-06-23 00:00:00 2020-06-23 00:00:00 Outpatient STLMLC STLMLC [id number] [facility] 2020-06-03 00:00:00 2020-06-03 00:00:00 Outpatient STLMLC STLMLC [id number] [facility] 2020-05-27 00:00:00 2020-05-27 00:00:00 Outpatient STLMLC STLMLC [id number] [facility] 2020-05-11 00:00:00 2020-05-11 00:00:00 Outpatient STLMLC STLMLC [id number] [facility] 2020-04-25 00:00:00 2020-04-25 00:00:00 Outpatient STLMLC STLMLC [id number] [facility] 2020-03-15 00:00:00 2020-03-15 00:00:00 Outpatient STLMLC STLMLC [id number] [facility] 2020-03-14 00:00:00 2020-03-14 00:00:00 Outpatient STLMLC STLMLC [id number] [facility] 2020-03-07 00:00:00 2020-03-07 00:00:00 Outpatient STLMLC STLMLC [id number] [facility] 2020-03-03 17:00:00 2020-03-03 17:00:00 Outpatient R [facility] [id number] [facility] 2020-03-03 14:36:05 2020-03-03 15:04:47 Urgent Care Provider, [facility] Kelly Perez [facility] Office [facility] 1.2.840.114 350.1.13.10 4.2.7.2.686 [id number] [facility] 2020-03-03 14:36:05 2020-03-03 15:04:47 Urgent Care Provider, [facility] [id number] 2020-03-02 00:00:00 2020-03-02 00:00:00 Outpatient [facility] [id number] [facility] 2020-02-29 00:00:00 2020-02-29 00:00:00 Outpatient [facility] [id number] [facility] 2020-02-17 00:00:00 2020-02-17 00:00:00 Outpatient [facility] [id number] [facility] 2020-02-16 00:00:00 2020-02-16 00:00:00 Outpatient [facility] [id number] [facility] 2020-01-18 00:00:00 2020-01-18 00:00:00 Outpatient [facility] [id number] [facility] 2019-12-08 16:40:00 2019-12-08 16:40:00 Outpatient R KARINA GONZALES [facility] [id number] [facility] 2019-12-07 14:00:00 2019-12-07 14:00:[address] [facility] [id number] [facility] 2019-12-07 11:54:00 2019-12-07 11:54:[address] [facility] [id number] [facility] 2019-12-03 13:00:00 2019-12-03 13:00:00 [facility] [id number] [facility] 2019-12-03 08:34:00 2019-12-03 08:34:00 [facility] [id number] [facility] 2019-12-02 08:44:00 2019-12-02 08:44:[address] [facility] [id number] [facility] 2019-12-01 13:53:00 2019-12-01 13:53:[address] [facility] [id number] [facility] 2019-11-26 14:00:00 2019-11-26 14:00:00 [facility] [place] [facility] [id number] [facility] 2019-11-24 00:00:00 2019-11-24 00:00:00 [facility]ill [facility] [address].2.840.114 350.1.13.10 4.2.7.2.686 [id number] [facility] 2019-11-24 00:00:00 2019-11-24 00:00:00 Refill Divya [address]hel[address]2.840.114 350.1.13.10 4.2.7.2.686 [id number] 2019-11-18 13:45:00 2019-11-18 13:45:00 Outpatient [facility] Medicine [facility] [id number] [facility] 2019-11-17 10:00:00 2019-11-17 23:59:00 Hospital Encounter Radiology [facility] 1.2.840.114 350.1.13.10 4.2.7.2.686 [id number] [facility] 2019-11-17 10:00:00 2019-11-17 23:59:00 Hospital Encounter Radiology [facility] 1.2.840.114 350.1.13.10 4.2.7.2.686 [id number] 2019-11-17 00:00:00 2019-11-17 00:00:00 Outpatient R RADIOLOGY [facility] [id number] [facility] 2019-11-17 00:00:00 2019-11-17 00:00:00 Orders Only Doctor Unassigned, [place] [facility] 1.2.840.114 350.1.13.10 4.2.7.2.686 [id number] [facility] 2019-11-17 00:00:00 2019-11-17 00:00:00 Orders Only Doctor Unassigned, [place] [facility] 1.2.840.114 350.1.13.10 4.2.7.2.686 [id number] 2019-11-16 13:15:00 2019-11-16 13:15:00 Outpatient [facility] [id number] [facility] 2019-11-09 15:00:00 2019-11-09 15:00:00 Outpatient R JENNIFER SHER [facility] [id number] [facility] 2019-10-09 11:37:00 2019-10-09 11:37:00 Outpatient [facility] [id number] [facility] 2019-10-07 11:38:03 2019-10-07 12:05:01 [facility] Kelly Perez [facility] 1.2.840.114 350.1.13.10 4.2.7.2.686 [id number] [facility] 2019-10-07 11:38:03 2019-10-07 12:05:01 Urgent Care Provider, [facility] 1.2.840.114 350.1.13.10 4.2.7.2.686 [id number] 2019-10-07 11:40:00 2019-10-07 11:40:00 Outpatient KELLY DAVID [facility] [id number] [facility] 2019-10-06 00:00:00 2019-10-06 00:00:00 Orders Only Doctor Unassigned, [place] [facility] 1.2.840.114 350.1.13.10 4.2.7.2.686 [id number] [facility] 2019-10-06 00:00:00 2019-10-06 00:00:00 Orders Only Doctor Unassigned, [place] [facility] 1.2.840.114 350.1.13.10 4.2.7.2.686 [id number] 2019-09-23 13:15:00 2019-09-23 13:15:00 Outpatient [facility] Medicine [facility] [id number] [facility] 2019-09-17 16:41:00 2019-09-17 16:41:00 Outpatient [facility] Medicine [facility] [id number] [facility] 2019-07-27 10:13:00 2019-07-27 10:13:00 Outpatient [facility] [id number] [facility] 2019-07-24 10:00:00 2019-07-24 10:00:00 [facility] [id number] [facility] 2019-07-06 08:54:00 2019-07-06 08:54:00 [address] [address] [facility] [id number] [facility] 2019-06-29 10:28:00 2019-06-29 10:28:00 [facility] [id number] [facility] 2019-06-24 14:42:00 2019-06-24 14:42:00 [facility] [id number] [facility] 2019-06-18 11:23:00 2019-06-18 11:23:00 [facility] [id number] [facility] 2019-06-18 08:19:00 2019-06-18 08:19:00 [facility] [id number] [facility] 2019-06-16 13:45:00 2019-06-16 13:45:00 [address] [facility] [id number] [facility] 2019-06-11 13:06:23 2019-06-11 16:30:00 Emergency Lenore Alarcon S [facility] 1.2.840.114 350.1.13.10 4.2.7.2.686 [id number] [facility] 2019-06-11 13:06:23 2019-06-11 16:30:00 Emergency X LENORE ALARCON [facility] ERT [id number] [facility] 2019-06-11 13:06:23 2019-06-11 16:30:00 Emergency X LENORE ALARCON [facility] ERT [id number] [facility] 2019-06-11 13:06:23 2019-06-11 16:30:00 Emergency Lenore Alarcon [facility] 1.2.840.114 350.1.13.10 4.2.7.2.686 [id number] 2019-06-07 15:32:13 2019-06-07 16:50:00 Emergency Sabra Sorto [facility] 1.2.840.114 350.1.13.10 4.2.7.2.686 [id number] [facility] 2019-06-07 15:32:13 2019-06-07 16:50:00 Emergency X SABRA SORTO [facility] ERT [id number] [facility] 2019-06-07 15:32:13 2019-06-07 16:50:00 Emergency X SABRA SORTO [facility] ERT [id number] [facility] 2019-06-07 15:32:13 2019-06-07 16:50:00 Emergency Sabra Sorto [facility] 1.2.840.114 350.1.13.10 4.2.7.2.686 [id number] 2019-06-07 00:00:00 2019-06-07 00:00:00 Orders Only Doctor Unassigned, [place] [facility] 1.2.840.114 350.1.13.10 4.2.7.2.686 [id number] [facility] 2019-06-07 00:00:00 2019-06-07 00:00:00 Orders Only Doctor Unassigned, [place] [facility] 1.2.840.114 350.1.13.10 4.2.7.2.686 [id number] 2019-06-02 14:30:00 2019-06-02 14:30:00 Outpatient [facility] [id number] [facility] 2019-06-01 13:24:00 2019-06-01 13:24:00 [address] [facility] [id number] [facility] 2019-05-28 18:41:42 2019-05-28 20:29:00 Emergency [facility] 1.2.840.114 350.1.13.10 4.2.7.2.686 [id number] [facility] 2019-05-28 18:41:42 2019-05-28 20:29:00 Emergency [facility] 1.2.840.114 350.1.13.10 4.2.7.2.686 [id number] 2019-05-26 15:00:00 2019-05-26 15:00:00 [facility] [id number] [facility] 2019-04-30 10:17:00 2019-04-30 10:17:00 [facility] [id number] [facility] 2019-04-30 08:15:00 2019-04-30 08:15:00 [facility] [id number] [facility] 2019-04-24 10:15:00 2019-04-24 10:15:00 [facility] [id number] [facility] 2019-03-26 16:00:00 2019-03-26 16:00:00 [facility] [id number] [facility] 2019-02-26 09:01:00 2019-02-26 09:01:00 [facility] [id number] [facility] 2019-02-13 15:50:00 2019-02-13 15:50:00 [facility] [id number] [facility] 2019 14:30:00 2019 14:30:00 Outpatient [facility] Medicine [facility] [id number] [facility] 2019-01-02 17:15:03 2019-01-02 19:16:00 Emergency [facility] 1.2.840.114 350.1.13.10 4.2.7.2.686 [id number] [facility] 2019-01-02 17:15:03 2019-01-02 19:16:00 [facility] 1.2.840.114 350.1.13.10 4.2.7.2.686 [id number] 2019-01-02 00:00:00 2019-01-02 00:00:00 Orders Only Doctor Unassigned, [place] [facility] 1.2.840.114 350.1.13.10 4.2.7.2.686 [id number] [facility] 2019-01-02 00:00:00 2019-01-02 00:00:00 Orders Only Doctor Unassigned, [place] [facility] 1.2.840.114 350.1.13.10 4.2.7.2.686 [id number] 2018-12-31 14:17:00 2018-12-31 14:17:00 Outpatient [facility] [id number] [facility] 2018-12-29 09:44:07 2018-12-29 09:59:07 Office Visit Eliezer Watts [facility] 1.2.840.114 350.1.13.10 4.2.7.2.686 [id number] [facility] 2018-12-29 09:44:07 2018-12-29 09:59:07 Office Visit Eliezer Watts [facility] [employer] [facility]. 1.2.840.114 350.1.13.10 4.2.7.2.686 [id number] 2018-12-29 00:00:00 2018-12-29 00:00:00 Letter (Out) Eliezer Watts [facility] 1.2.840.114 350.1.13.10 4.2.7.2.686 [id number] [facility] 2018-12-24 16:06:07 2018-12-24 23:59:00 Hospital Encounter Radiology [facility] 1.2.840.114 350.1.13.10 4.2.7.2.686 [id number] [facility] 2018-12-24 10:45:00 2018-12-24 10:45:00 [facility] [id number] [facility] 2018-12-24 00:00:00 2018-12-24 00:00:00 Orders Only Doctor Unassigned, [place] [facility] 1.2.840.114 350.1.13.10 4.2.7.2.686 [id number] [facility] 2018-12-09 15:05:00 2018-12-09 15:05:00 [facility] [facility] [id number] [facility] 2018-12-08 13:15:00 2018-12-08 13:15:00 [facility] [facility] [id number] [facility] 2018-11-26 16:19:00 2018-11-26 16:19:00 Outpatient [facility] [place] [facility] [id number] [facility] 2018-11-18 09:00:00 2018-11-18 09:00:00 Out[facility] [facility] [id number] [facility] 2018-11-15 13:23:07 2018-11-15 13:57:49 Urgent Care Jayden Leahy, Attending [facility] shaina [place] 1.2.840.114 350.1.13.10 4.2.7.2.686 [id number] [facility] 2018-10-24 16:15:00 2018-10-24 16:15:00 [address] [facility] [id number] [facility] 2018-10-21 14:30:00 2018-10-21 14:30:00 [facility] [id number] [facility] 2018-08-22 09:30:00 2018-08-22 09:30:00 [facility] [id number] [facility] 2018-08-16 11:37:00 2018-08-16 11:37:00 [facility] [id number] [facility] 2018-08-14 08:30:00 2018-08-14 08:30:00 [facility] [id number] [facility] 2018-08-13 15:15:00 2018-08-13 15:15:00 [facility] [place] [facility] [id number] [facility] 2018-07-23 15:00:00 2018-07-23 15:00:00 [facility] [id number] [facility] 2018-06-23 13:45:00 2018-06-23 13:45:00 [facility] [id number] [facility] 2018-06-09 11:19:00 2018-06-09 11:19:00 [facility] [id number] [facility] 2018-06-03 08:02:00 2018-06-03 08:02:00 [facility] [place] [facility] [id number] [facility] 2018-06-02 09:30:00 2018-06-02 09:30:00 [facility] [place] [facility] [id number] [facility] 2018-05-21 15:00:00 2018-05-21 15:00:00 [facility] [place] [facility] [id number] [facility] 2018-05-09 08:22:00 2018-05-09 08:22:00 [facility] [place] [facility] [id number] [facility] 2018-04-24 15:45:00 2018-04-24 15:45:00 [facility] [place] [facility] [id number] [facility] 2018-04-04 09:15:00 2018-04-04 09:15:00 [facility] [place] [facility] [id number] [facility] 2018-04-02 14:30:00 2018-04-02 14:30:00 [facility] [place] [facility] [id number] [facility] 2018-01-28 13:00:00 2018-01-28 13:00:00 [facility] [place] [facility] [id number] [facility] Results Test Description Test Time Test Comments [...] mass effect, or evidence of acute intracranialhemorrhage. [facility] CT Angiogram head 07:37:03 Exam: CT Angiogram [...] mass effect, or evidence of acute intracranialhemorrhage. [facility] XR Chest 1 vw 06:54:39 Study: Single view chest. Ordering Physician: MONICA PATIÑO Date: 04/04/2024 11:30 PM History:ALTERED MENTAL STATUS COMPARISON: None. Findings: Single frontal view chest demonstrates a normal heart size. Thelungs are clear without infiltrate, pleural effusion or pneumothorax. Noacute osseous abnormality is identified. [facility] CT TRAUMA HEAD WO CONTRAST 01:54:54 EXAM: [...] cells are clear. The nasal septumis intact. [facility] CT Maxillofacial/m andible wo contrast 01:54:54 EXAM: [...] cells are clear. The [facility]umis intact[facility] [id number] 16:05:56EXAM: XR WRIST 3+ VW RIGHT HISTORY: rt wrist fx ? COMPARISON: [facility] [id number] 20:33:00* Test Item Value Reference Range Interpretation Comme nts POCT PREG (test code = 1605) Negative On board controls acceptable with C Line (test code = 3574) Yes POCT PREG LOT # (test code = 3575) [id number] POCT PREG TEST DATE ( test code = 3576) 03/03/2025 Lab Interpretation (test cod e = 19473-8) [facility] [id number] 20:22:54* Test Item Value Reference Range Interpretation [...] 34.2 g/dL 31.6-35.1 RDW-SD (test code = 02831-7) 41.4 fL 39.0-49.9 RDW-CV (test code = 788-0) 11.9 % 12.0-15.5 L PLT (test code = 777-3) 143 166-358 L MPV (test code = 46593-4) 9.5 fL 9.5-12.9 IPF % (test code = 4043901053) 3.4 % 1.3-7.7 Platelet count measured by fluorescence method. NRBC/100 WBC (test code = 8400745840) 0.0 0.0-10.0 NRBC x10^3 (test code = 1044312745) See_Comment [Automated messa ge] The system which generated this result transmitted reference range: 10*3/?L. The reference range was not used to interpret this result as normal/abnormal. GRAN MAT (NEUT) % (test code = 770-8) 65.3 % IMM GRAN % (test code = 6569690477) 0.40 % LYMPH % (test code = 736-9) 27.2 % MONO % (test code = 5905-5) 6.2 % EOS % (test code = 713-8) 0.5 % BASO % (test code = 706-2) 0.4 % GRAN MAT x10^3(ANC) (test code = 7358628371) 4.96 10*3/uL 1.88-7.09 IMM GRAN x10^3 (test code = 3244490658) 0.03 10*3/uL 0.00-0.06 LYMPH x10^3 (test code = 731-0) 2.07 10*3/uL 1.32-3.29 MONO x10^3 (test code = 742-7) 0.47 10*3/uL 0.33-0.92 EOS x10^3 (test code = 711-2) 0.04 10*3/uL 0.03-0.39 BASO x10^3 (test code = 704-7) 0.03 10*3/uL 0.01-0.07 Lab Interpretation (test code = 12676-4) [facility]normal [facility] 20:07:11 ALCOHOL<10mg/dL12/08/2023 3:07 PM [facility]<10 Ejgbcydr57-025 Toxic>100 Depression of BETTING CLERKS>400 Fatalities ReportedUnBaylor Scott & [facility] Round RockMagnesium2024-08-18 20:07:06* Test Item Value Reference Range Interpretation Comme nts MAGNESIUM (test code = 4527496853) 1.1 mg/dL 1.7-2.4 L Lab Interpretation (test cod e = 80150-3) [facility]OL[facility] PANEL (54116)2023-12-08 19:58:38* Test Item Value Reference Range Interpretation Comme nts NA (test code = 1069657927) 136 mmol/L 135-145 K (test code = 1525562066) 3.5 mmol/L 3.5-5.0 CL (test code = 1360206534) 97 mmol/L 98-108 L CO2 TOTAL (test code = 8857018517) 28 mmol/L 23-31 AGAP (test code = 3917639948) 11 2-16 BUN (test code = 9186278679) 9 mg/dL 7-23 GLUCOSE (test code = 2785204576) 113 mg/dL 70-110 H CREATININE (test code = 2160-0) 0.52 mg/dL 0.50-1.04 TOTAL BILI (test code = 2996464115) 1.5 mg/dL 0.1-1.1 H CALCIUM (test code = 4216402570) 9.3 mg/dL 8.6-10.6 T PROTEIN (test code = 5807875128) 8.6 g/dL 6.3-8.2 H ALBUMIN (test code = 7747469052) 4.7 g/dL 3.5-5.0 ALK PHOS (test code = 4280448433) 138 U/L 34-122 H ALTv (test code = 1742-6) 32 U/L 5-35 AST(SGOT) (test code = 8298442714) 71 U/L 13-40 H eGFR (test code = 62495-0) 126.0 mL/min/1.73m2 CKD-EPI eGFR (2020). Assuming creatinine has been stable day-to-day for at least three months, the eGFR indicates Category G1 (>= 90 mL/min/1.73 m2) Lab Interpretation (test code = 20363-1) [facility]normal [facility]2024-[facility]-18 19:58:18* Test Item Value Reference Range Interpretation Comme nts LIPASE (test code = 4296678470) 122 U/L 0-220 Lab Interpretation (test cod e = 77167-2) Normal [facility] Panel 21 + Lactic [id number] 19:41:27* Test Item Value Reference Range Interpretation Comme nts PH (test code = 3771872622) 7.45 7.32-7.42 H PCO2 TONY (test code = 8969798059) 41 41-51 PO2 TONY (test code = 1336020827) 32 25-40 HCO3 TONY (test code = 5748031090) 28 24-28 AC VBE(BEAKER) (test code = 2551013366) 3.6 mEq/L THB TONY (test code = 6313514334) 12.6 g/dL 12.0-16.0 %O2HB TONY (test code = 3436306978) 61.7 % 52.0-63.0 %COHB TONY (test code = 0983847748) 0.1 % 0.0-1.5 %METHB TONY (test code = 3287942377) 0.5 % 0.4-1.5 VOL%O2 TONY (test code = 3688605708) 10.9 % 6.0-12.0 NA (test code = 1350077037) 138 mmol/L 135-145 K+ (test code = 6048047041) 3.7 mmol/L 3.5-5.0 AC CA IONZ (test code = 5686196498) 4.50 mg/dL 4.50-5.30 GLUCOSE (test code = 6047164291) 101 mg/dL 70-110 LACTIC ACID (test code = 5289092240) 1.63 mmol/L 0.50-2.20 Lab Interpretation (test cod e = 47540-8) [facility]normal [facility]anol2024-08-16 09:16:23* Test Item Value Reference Range Interpretation Comme nts ALCOHOL (test code = 3373648231) 186 mg/dL JASMYN (test code = JASMYN) <10 Xxwsvgfp10-905 Toxic>100 Depression of BETTING CLERKS>400 Fatalities Reported [facility] [id number] 03:09:00* Test Item Value Reference Range Interpretation Comme nts POCT PREG (test code = 1605) Negative On board controls acceptable with C Line (test code = 3574) Yes POCT PREG LOT # (test code = 3575) [id number] POCT PREG TEST DATE ( test code = 3576) 2025-03-03 Lab Interpretation (test cod e = 14138-5) Normal [facility] BHCG (QUANTITATIVE)2023-11-22 18:44:22 BETA HCG<2.39Non- female and male patients: <5 mIU/mL11/22/2023 1:44 PM [facility] Gestational Age ?Range (mIU/mL) 1-10 ?Weeks ?69-79207030-92 Weeks ?93019-26016778-95 Weeks ?7703-29228848-68 Weeks ?6953-694718 Biotin has been reported to cause a negative bias, interpret results relative to patient's use of biotin.[facility] TROPONIN [id number] 18:34:01* Test Item Value Reference Range Interpretation Comme nts TROPONIN I (test code = 5980679231) 0.006 ng/mL <=0.034 JASMYN (test code = [...] of biotin. Lab Interpretation (test code = 50334-9) Normal [facility] WO [id number] 18:28:32FULL RESULT: Examination: CT HEAD WO CONTRAST, [...] no intrinsic bony lesion, fracture or traumatic malalignment.[facility] C[facility] SP[facility] WO CONTRAST 2023-11-22 18:28:32FULL RESULT: [...] no intrinsic bony lesion, fracture or traumatic malalignment.[facility] NortheastD-Qxnrm8706-76-30 18:25:38* Test Item Value Reference Range Interpretation Comments D-DIMER (test code = 0844004854) 0.36 See_Comment [Automated message] The system which [...] a diagnosis. Lab Interpretation (test code = 29291-2) Normal [facility]OL2024-08-02 18:23:36 ALCOHOL<10mg/dL11/22/2023 1:23 PM CDTHE [facility]<10 Bxixuzmy23-888 Toxic>100 Depression of BETTING CLERKS>400 Fatalities ReportedMethodist Hospital NortheastCOMP. METABOLIC PANEL (21754)2023-11-22 18:22:35* Test Item Value Reference Range Interpretation Comme nts NA (test code = 4177137078) 136 mmol/L 135-145 K (test code = 4031951192) 4.4 3.5-5.0 CL (test code = 9452268318) 100 mmol/L 98-108 CO2 TOTAL (test code = 8400804864) 24 mmol/L 23-31 AGAP (test code = 8080296794) 12 2-16 BUN (test code = 4714327405) 18 mg/dL 7-23 GLUCOSE (test code = 1120750372) 89 mg/dL 70-110 CREATININE (test code = 2160-0) 0.71 mg/dL 0.50-1.04 TOTAL BILI (test code = 1121745649) 0.8 mg/dL 0.1-1.1 CALCIUM (test code = 1143985580) 9.4 mg/dL 8.6-10.6 T PROTEIN (test code = 6167130009) 8.0 g/dL 6.3-8.2 ALBUMIN (test code = 5944933859) 4.4 g/dL 3.5-5.0 ALK PHOS (test code = 2679981515) 93 U/L 34-122 ALTv (test code = 1742-6) 32 U/L 5-35 AST(SGOT) (test code = 0509165075) 46 U/L 13-40 H eGFR (test code = 44755-8) 115.3 mL/min/1.73m2 CKD-EPI eGFR (2020). Assuming creatinine has been stable day-to-day for at least three months, the eGFR indicates Category G1 (>= 90 mL/min/1.73 m2) Lab Interpretation (test code = 53265-9) [facility] 18:22:15* Test Item Value Reference Range Interpretation Comme nts LIPASE (test code = 9496226434) 75 U/L 0-220 Lab Interpretation (test cod e = 33402-6) Normal [facility] WITH [id number] 18:10:56* Test Item Value Reference Range Interpretation [...] 33.4 g/dL 31.6-35.1 RDW-SD (test code = 57896-4) 48.7 fL 39.0-49.9 RDW-CV (test code = 788-0) 13.1 % 12.0-15.5 PLT (test code = 777-3) 227 166-358 MPV (test code = 57754-4) 10.3 fL 9.5-12.9 NRBC/100 WBC (test code = 8188836412) 0.0 0.0-10.0 NRBC x10^3 (test code = 9663715767) See_Comment [Automated messa ge] The system which generated this result transmitted reference range: 10*3/?L. The reference range was not used to interpret this result as normal/abnormal. GRAN MAT (NEUT) % (test code = 770-8) 72.0 % IMM GRAN % (test code = 3762657434) 0.40 % LYMPH % (test code = 736-9) 13.8 % MONO % (test code = 5905-5) 12.5 % EOS % (test code = 713-8) 0.4 % BASO % (test code = 706-2) 0.9 % GRAN MAT x10^3(ANC) (test code = 3156736031) 5.35 10*3/uL 1.88-7.09 IMM GRAN x10^3 (test code = 2593472461) 0.03 10*3/uL 0.00-0.06 LYMPH x10^3 (test code = 731-0) 1.03 10*3/uL 1.32-3.29 L MONO x10^3 (test code = 742-7) 0.93 10*3/uL 0.33-0.92 H EOS x10^3 (test code = 711-2) 0.03 10*3/uL 0.03-0.39 BASO x10^3 (test code = 704-7) 0.07 10*3/uL 0.01-0.07 Lab Interpretation (test code = 81752-7) [facility] [id number] 04:25:00* Test Item Value Reference Range Interpretation Comme nts POCT PREG (test code = 1605) Negative On board controls acceptable with C Line (test code = 3574) Yes POCT PREG LOT # (test code = 3575) [id number] POCT PREG TEST DATE ( test code = 3576) 2024-08-29 Lab Interpretation (test cod e = 05184-3) [facility] NortheastVitamin B12, Vwwhs6996-13-62 19:32:47* Test Item Value Reference Range Interpretation Comme nts VIT B12 (test code = 9530346615) 541 pg/mL 240-930 JASMYN (test code = JASMYN) Biotin has been reported to cause a positive bias, interpret results relative to patient's use of biotin. Lab Interpretation (test code = 19121-8) [facility] NortheastFolate2024-07-19 19:32:47* Test Item Value Reference Range Interpretation Comme nts FOLATE SER (test code = 3257846599) 5.0 ng/mL 3.0-20.0 Biotin has been reported to cause a positive bias, interpret results relative to patient's use of biotin. Lab Interpretation (test code = 42364-5) [facility] NortheastCT [facility] WO [id number] 16:36:26EXAM: CT HEAD WO CONTRAST HISTORY: 33 years-old Female; Provided indication: Headache, new orworsening, neuro deficit (Age 18-49y) . History obtained from [facility]:"Patient admitted for alcohol withdrawal, now [...] mastoid aircells and visualized paranasal airsinuses are clear.[facility] NortheastMagnesium2024-07-19 10:13:17* Test Item Value Reference Range Interpretation Comme nts MAGNESIUM (test code = 0171069761) 1.6 mg/dL 1.7-2.4 L Lab Interpretation (test cod e = 15239-5) [facility] NortheastBasic Metabolic Panel (NA, K, CL, CO2, GLUCOSE, BUN, CREATININE, CA)2023-11-08 10:13:02* Test Item Value Reference Range Interpretation Comme nts NA (test code = 6328666556) 135 mmol/L 135-145 K (test code = 1733310095) 3.2 mmol/L 3.5-5.0 L CL (test code = 6452389532) 98 mmol/L 98-108 CO2 TOTAL (test code = 9552078188) 29 mmol/L 23-31 AGAP (test code = 3199912720) 8 2-16 BUN (test code = 2978538761) 5 mg/dL 7-23 L GLUCOSE (test code = 7532201221) 113 mg/dL 70-110 H CREATININE (test code = 2160-0) 0.50 mg/dL 0.50-1.04 CALCIUM (test code = 3806396108) 8.9 mg/dL 8.6-10.6 eGFR (test code = 96305-9) 127.2 mL/min/1.73m2 CKD-EPI eGFR (2020). Assuming creatinine has been stable day-to-day for at least three months, the eGFR indicates Category G1 (>= 90 mL/min/1.73 m2) Lab Interpretation (test code = 75374-6) [facility] NortheastHepatic Function Panel (37132) (ALB,T.PRO,BILI T,BU/BC,ALT,AST,ALK PHOS)2023-11-08 10:13:02* Test Item Value Reference Range Interpretation Comme nts TOTAL BILI (test code = 8239942005) 1.3 mg/dL 0.1-1.1 H BILI UNCON (test code = 3631832103) 0.5 mg/dL 0.1-1.1 BILI CONJ (test code = 5470643804) 0.0 mg/dL 0.0-0.3 T PROTEIN (test code = 6822746532) 7.0 g/dL 6.3-8.2 ALBUMIN (test code = 2837088518) 4.0 g/dL 3.5-5.0 ALK PHOS (test code = 7929891054) 201 U/L 34-122 H ALTv (test code = 1742-6) 111 U/L 5-35 H AST(SGOT) (test code = 5451369588) 426 U/L 13-40 H Lab Interpretation (test cod e = 69905-3) [facility] NortheastPhosphorus2024-07-19 10:13:01* Test Item Value Reference Range Interpretation Comme nts PHOSPHORUS (test code = 0777978827) 1.3 mg/dL 2.5-5.0 L Lab Interpretation (test cod e = 34576-8) [facility] NortheastCbc without Ykci7937-36-97 09:41:55* Test Item Value Reference Range Interpretation [...] 160 166-358 L MPV (test code = 72516-6) 9.9 fL 9.5-12.9 RDW-CV (test code = 788-0) 13.2 % 12.0-15.5 RDW-SD (test code = 85692-0) 48.1 fL 39.0-49.9 NRBC x10^3 (test code = 3192961101) See_Comment [Automated messa ge] The system which generated this result transmitted reference range: 10*3/?L. The reference range was not used to interpret this result as normal/abnormal. NRBC/100 WBC (test code = 7264793287) 0.0 0.0-10.0 IPF % (test code = 5352062366) Lab Interpretation (test code = 86435-1) [facility] NortheastLactic Acid Whole Pumct1068-43-88 07:27:21* Test Item Value Reference Range Interpretation Comme nts LACTIC ACID (test code = 6042268122) 2.14 mmol/L 0.50-2.20 Lab Interpretation (test cod e = 32836-8) [facility]Ac[facility] Venous Blood Gtz8639-13-87 01:17:39 * Test Item Value Reference Range Interpretation Comme nts PH (test code = 5954250888) 7.28 7.32-7.42 L PCO2 TONY (test code = 0116674825) 35 41-51 L PO2 TONY (test code = 4493876882) 32 25-40 HCO3 TONY (test code = 9863042981) 16 24-28 L AC VBE(BEAKER) (test code = 0029118163) -9.8 mEq/L Lab Interpretation (test cod e = 98093-4) [facility] NortheastL[facility] Acid Whole Ylmxf8758-03-85 01:07:01* Test Item Value Reference Range Interpretation Comme nts LACTIC ACID (test code = 7921856102) 3.31 mmol/L 0.50-2.20 H Lab Interpretation (test cod e = 27035-6) [facility] Fvxt7372-95-09 20:43:53Krista Cabrera MD ? ? 11/06/2023 ?3:43 [...] separately billable procedures and treating other patients. [facility] NortheastTROPONIN [id number] 19:33:09* Test Item Value Reference Range Interpretation Comme nts TROPONIN I (test code = 9388373281) 0.004 ng/mL <=0.034 JASMYN (test code = [...] of biotin. Lab Interpretation (test code = 29136-9) Normal [facility] NortheastETHANOL2024-07-17 19:33:09* Test Item Value Reference Range Interpretation Comme nts ALCOHOL (test code = 1148562269) 363 mg/dL JASMYN (test code = JASMYN) <10 Afzgtdpn12-703 Toxic>100 Depression of BETTING CLERKS>400 Fatalities Reported [facility]N-TERMINAL KFO-DOU8727-53-17 19:30:31* Test Item Value Reference Range Interpretation Comme nts NT-proBNP (test code = 93483-9) 108 pg/mL <=125 Lab Interpretation (test cod e = 84718-2) [facility] NortheastPOCT [id number] 19:25:00* Test Item Value Reference Range Interpretation Comme nts POCT PREG (test code = 1605) Negative On board controls acceptable with C Line (test code = 3574) Yes POCT PREG LOT # (test code = 3575) [id number] POCT PREG TEST DATE ( test code = 3576) 2024-08-27 Lab Interpretation (test cod e = 88300-7) [facility] NortheastMagnesium2024-07-17 19:16:32* Test Item Value Reference Range Interpretation Comme nts MAGNESIUM (test code = 3611454639) 2.2 mg/dL 1.7-2.4 Lab Interpretation (test cod e = 04873-2) [facility] NortheastCOMP. METABOLIC PANEL (23931)2023-11-06 19:16:12* Test Item Value Reference Range Interpretation Comme nts NA (test code = 9886742273) 141 mmol/L 135-145 K (test code = 0048695959) 4.3 mmol/L 3.5-5.0 CL (test code = 7601825815) 100 mmol/L 98-108 CO2 TOTAL (test code = 9624755773) 14 mmol/L 23-31 L AGAP (test code = 5106083539) 27 2-16 H BUN (test code = 0551462757) 12 mg/dL 7-23 GLUCOSE (test code = 8797048956) 60 mg/dL 70-110 L CREATININE (test code = 2160-0) 0.68 mg/dL 0.50-1.04 TOTAL BILI (test code = 3307542801) 1.4 mg/dL 0.1-1.1 H CALCIUM (test code = 0426079672) 9.0 mg/dL 8.6-10.6 T PROTEIN (test code = 0622862411) 9.7 g/dL 6.3-8.2 H ALBUMIN (test code = 1813009371) 5.4 g/dL 3.5-5.0 H ALK PHOS (test code = 1203549743) 207 U/L 34-122 H ALTv (test code = 1742-6) 79 U/L 5-35 H AST(SGOT) (test code = 5830570196) 154 U/L 13-40 H eGFR (test code = 47701-7) 118.1 mL/min/1.73m2 CKD-EPI eGFR (2020). Assuming creatinine has been stable day-to-day for at least three months, the eGFR indicates Category G1 (>= 90 mL/min/1.73 m2) Lab Interpretation (test code = 36493-9) [facility] NortheastLIPASE2024-07-17 19:15:46* Test Item Value Reference Range Interpretation Comme nts LIPASE (test code = 5037133315) 117 U/L 0-220 Lab Interpretation (test cod e = 31669-6) Normal [facility] WITH [id number] 19:07:27* Test Item Value Reference Range Interpretation [...] 32.3 g/dL 31.6-35.1 RDW-SD (test code = 77419-5) 53.5 fL 39.0-49.9 H RDW-CV (test code = 788-0) 13.9 % 12.0-15.5 PLT (test code = 777-3) 345 166-358 MPV (test code = 21046-3) 9.2 fL 9.5-12.9 L NRBC/100 WBC (test code = 6914381427) 0.0 0.0-10.0 NRBC x10^3 (test code = 6322798065) See_Comment [Automated messa ge] The system which generated this result transmitted reference range: 10*3/?L. The reference range was not used to interpret this result as normal/abnormal. GRAN MAT (NEUT) % (test code = 770-8) 57.5 % IMM GRAN % (test code = 5931581755) 0.90 % LYMPH % (test code = 736-9) 29.1 % MONO % (test code = 5905-5) 10.5 % EOS % (test code = 713-8) 0.0 % BASO % (test code = 706-2) 2.0 % GRAN MAT x10^3(ANC) (test code = 2542919636) 3.65 10*3/uL 1.88-7.09 IMM GRAN x10^3 (test code = 4805056669) 0.06 10*3/uL 0.00-0.06 LYMPH x10^3 (test code = 731-0) 1.85 10*3/uL 1.32-3.29 MONO x10^3 (test code = 742-7) 0.67 10*3/uL 0.33-0.92 EOS x10^3 (test code = 711-2) 0.03-0.39 L BASO x10^3 (test code = 704-7) 0.13 10*3/uL 0.01-0.07 H Lab Interpretation (test code = 75518-3) [facility] NortheastAC PANEL 21 + LACTIC [id number] 18:57:00* Test Item Value Reference Range Interpretation Comme nts PH (test code = 0159192007) 7.16 7.32-7.42 LL PCO2 TONY (test code = 1460369837) 37 41-51 L PO2 TONY (test code = 6938939975) 44 25-40 H HCO3 TONY (test code = 8262618267) 13 24-28 L AC VBE(BEAKER) (test code = 6399126273) -15.1 mEq/L THB TONY (test code = 1946213252) 15.7 g/dL 12.0-16.0 %O2HB TONY (test code = 3207216199) 72.1 % 52.0-63.0 H %COHB TONY (test code = 9046047093) 0.4 % 0.0-1.5 %METHB TONY (test code = 2584733947) 0.3 % 0.4-1.5 L VOL%O2 TONY (test code = 4919210231) 15.9 % 6.0-12.0 H NA (test code = 7659597390) 142 mmol/L 135-145 K+ (test code = 8502309728) 4.2 mmol/L 3.5-5.0 AC CA IONZ (test code = 3954558316) 4.90 mg/dL 4.50-5.30 GLUCOSE (test code = 8465950062) 49 mg/dL 70-110 LL LACTIC ACID (test code = 6132751856) 3.62 mmol/L 0.50-2.20 H Lab Interpretation (test cod e = 89294-9) [facility]normal [facility] NortheastEthanol2024-07-08 05:06:04* Test Item Value Reference Range Interpretation Comme nts ALCOHOL (test code = 6582915632) 416 mg/dL JASMYN (test code = JASMYN) <10 Rmaottxa24-000 Toxic>100 Depression of BETTING CLERKS>400 Fatalities [facility]orted [facility] NortheastSalicylate2024-07-08 04:57:31 SALICYLATE<10mg/L10/27/2023 11:57 PM [facility]The[facility] Range: ? Analgesic and Antipyretic Use ? 20- 100 mg/L ? ? Anti-Inflammatory Use ?100-250 mg/L Toxic Range: ? Greater than 300 mg/LUnB[facility] RockAcetaminophen2024-07-08 04:57:16* Test Item Value Reference Range Interpretation Comme nts ACETAMINOP (test code = 8861210582) 10.0-30.0 L JASMYN (test code = JASMYN) Toxic: Greater coreen n 200 ug/mL @ 4 hour post ingestion or greater than 50 ug/mL @ 12 hour post ingestion Lab Interpretation (test code = 45495-2) [facility] NortheastCOM. METABOLIC PANEL (35029)2023-10-28 04:56:21* Test Item Value Reference Range Interpretation Comme nts NA (test code = 4260855631) 143 mmol/L 135-145 K (test code = 8896576908) 4.1 mmol/L 3.5-5.0 CL (test code = 9824645451) 102 mmol/L 98-108 CO2 TOTAL (test code = 2174391451) 27 mmol/L 23-31 AGAP (test code = 1039109294) 14 2-16 BUN (test code = 0207054642) 13 mg/dL 7-23 GLUCOSE (test code = 2648272485) 75 mg/dL 70-110 CREATININE (test code = 2160-0) 0.59 mg/dL 0.50-1.04 TOTAL BILI (test code = 2486854290) 1.2 mg/dL 0.1-1.1 H CALCIUM (test code = 4224368726) 8.9 mg/dL 8.6-10.6 T PROTEIN (test code = 9427644453) 8.4 g/dL 6.3-8.2 H ALBUMIN (test code = 4009183268) 4.6 g/dL 3.5-5.0 ALK PHOS (test code = 0477495602) 169 U/L 34-122 H ALTv (test code = 1742-6) 82 U/L 5-35 H AST(SGOT) (test code = 2520677382) 217 U/L 13-40 H eGFR (test code = 05715-6) 122.2 mL/min/1.73m2 CKD-EPI eGFR (2020). Assuming creatinine has been stable day-to-day for at least three months, the eGFR indicates Category G1 (>= 90 mL/min/1.73 m2) Lab Interpretation (test code = 64601-0) Abnormal [facility] WITH [id number] 03:57:19* Test Item Value Reference Range Interpretation [...] 33.5 g/dL 31.6-35.1 RDW-SD (test code = 98182-3) 55.2 fL 39.0-49.9 H RDW-CV (test code = 788-0) 14.6 % 12.0-15.5 PLT (test code = 777-3) 210 166-358 MPV (test code = 93296-2) 9.3 fL 9.5-12.9 L NRBC/100 WBC (test code = 2126285948) 0.0 0.0-10.0 NRBC x10^3 (test code = 8309721670) See_Comment [Automated messa ge] The system which generated this result transmitted reference range: 10*3/?L. The reference range was not used to interpret this result as normal/abnormal. GRAN MAT (NEUT) % (test code = 770-8) 49.7 % IMM GRAN % (test code = 5020151307) 0.20 % LYMPH % (test code = 736-9) 38.7 % MONO % (test code = 5905-5) 9.4 % EOS % (test code = 713-8) 0.4 % BASO % (test code = 706-2) 1.6 % GRAN MAT x10^3(ANC) (test code = 7751651778) 2.55 10*3/uL 1.88-7.09 IMM GRAN x10^3 (test code = 6778944677) 0.00-0.06 LYMPH x10^3 (test code = 731-0) 1.98 10*3/uL 1.32-3.29 MONO x10^3 (test code = 742-7) 0.48 10*3/uL 0.33-0.92 EOS x10^3 (test code = 711-2) 0.03-0.39 L BASO x10^3 (test code = 704-7) 0.08 10*3/uL 0.01-0.07 H Lab Interpretation (test code = 67299-2) Abnormal [facility] DVTJ3147-01-71 03:42:00* Test Item Value Reference Range Interpretation Comme nts POCT PREG (test code = 1605) Negative On board controls acceptable with C Line (test code = 3574) Yes POCT PREG LOT # (test code = 3575) [id number] POCT PREG TEST DATE ( test code = 3576) 08/27/2024 Lab Interpretation (test cod e = 50781-1) Normal [facility] GLUCOSE (AUTOMATED)2023-10-19 15:53:48* Test Item Value Reference Range Interpretation Comme nts POCT GLU (test code = 5311895858) 69 mg/dL 70-110 L Notified Provide r Lab Interpretation (test code = 10054-9) Abnormal [facility] GLUCOSE(AGE >30DAYS)2023-10-19 15:53:00* Test Item Value Reference Range Interpretation Comme nts POCT Glu (age>30days) (test code = 3342) 69 mg/dL, ED provider notified 70-110 Lab Interpretation (test code = 51068-1) [facility] NortheastL[facility] Acid Whole Epoom0068-80-58 21:09:38* Test Item Value Reference Range Interpretation Comme nts LACTIC ACID (test code = 2860452287) 2.03 mmol/L 0.50-2.20 Lab Interpretation (test cod e = 63396-1) [facility] NortheastLipase2024-05-30 19:51:22* Test Item Value Reference Range Interpretation Comme nts LIPASE (test code = 2741937743) 317 U/L 0-220 H Lab Interpretation (test cod e = 60465-8) [facility]normal [facility] NortheastCbc with Ckxe2428-14-06 18:33:19* Test Item Value Reference Range Interpretation [...] 34.6 g/dL 31.6-35.1 RDW-SD (test code = 61323-6) 46.7 fL 39.0-49.9 RDW-CV (test code = 788-0) 13.2 % 12.0-15.5 PLT (test code = 777-3) 90 166-358 L MPV (test code = 34675-8) 9.6 fL 9.5-12.9 IPF % (test code = 1082413248) 3.9 % 1.3-7.7 Platelet count measured by fluorescence method. NRBC/100 WBC (test code = 2706531591) 0.0 0.0-10.0 NRBC x10^3 (test code = 0425981250) See_Comment [Automated messa ge] The system which generated this result transmitted reference range: 10*3/?L. The reference range was not used to interpret this result as normal/abnormal. GRAN MAT (NEUT) % (test code = 770-8) 68.9 % IMM GRAN % (test code = 6739650697) 1.20 % LYMPH % (test code = 736-9) 20.5 % MONO % (test code = 5905-5) 8.3 % EOS % (test code = 713-8) 0.3 % BASO % (test code = 706-2) 0.8 % GRAN MAT x10^3(ANC) (test code = 2398168625) 4.06 10*3/uL 1.88-7.09 IMM GRAN x10^3 (test code = 6518479853) 0.07 10*3/uL 0.00-0.06 H LYMPH x10^3 (test code = 731-0) 1.21 10*3/uL 1.32-3.29 L MONO x10^3 (test code = 742-7) 0.49 10*3/uL 0.33-0.92 EOS x10^3 (test code = 711-2) 0.03-0.39 L BASO x10^3 (test code = 704-7) 0.05 10*3/uL 0.01-0.07 BANDS (test code = 4172141030) Increased A Lab Interpretation (test code = 72966-4) [facility] NortheastCreatine Velziy4725-63-68 18:21:08* Test Item Value Reference Range Interpretation Comme nts CK (test code = 6996835640) 112 U/L 33-194 Lab Interpretation (test cod e = 17781-7) Normal [facility] NortheastComp. Metabolic Panel (21330)2023-09-19 18:01:22* Test Item Value Reference Range Interpretation Comme nts NA (test code = 2203215053) 139 mmol/L 135-145 K (test code = 7899363653) 3.5 mmol/L 3.5-5.0 CL (test code = 4027788048) 97 mmol/L 98-108 L CO2 TOTAL (test code = 5771096671) 29 mmol/L 23-31 AGAP (test code = 1667846435) 13 2-16 BUN (test code = 3509629596) 14 mg/dL 7-23 GLUCOSE (test code = 4669723751) 116 mg/dL 70-110 H CREATININE (test code = 2160-0) 0.64 mg/dL 0.50-1.04 TOTAL BILI (test code = 1685335580) 1.0 mg/dL 0.1-1.1 CALCIUM (test code = 1914876944) 8.9 mg/dL 8.6-10.6 T PROTEIN (test code = 8594482380) 8.7 g/dL 6.3-8.2 H ALBUMIN (test code = 6342380314) 4.7 g/dL 3.5-5.0 ALK PHOS (test code = 3668264805) 267 U/L 34-122 H ALTv (test code = 1742-6) 63 U/L 5-35 H AST(SGOT) (test code = 7498098752) 277 U/L 13-40 H eGFR (test code = 69973-1) 119.8 mL/min/1.73m2 CKD-EPI eGFR (2020). Assuming creatinine has been stable day-to-day for at least three months, the eGFR indicates Category G1 (>= 90 mL/min/1.73 m2) Lab Interpretation (test code = 06981-1) [facility] NortheastXR CHEST 1 [id number] 17:15:42HISTORY: Tachycardia, cough, COVID. TECHNIQUE: Portable AP upright view of the chest is obtained. Comparisonmade with 09/13/2023 study. FINDINGS: No acute pneumonia. No pneumothorax or pleural effusion orpulmonary congestion detected. Cardiac size is within normal limits. CONCLUSIONS: No signs of acute cardiopulmonary disease. [facility] NortheastL[facility] Acid Whole Pvmxa6974-06-59 17:11:09* Test Item Value Reference Range Interpretation Comme nts LACTIC ACID (test code = 1928709646) 4.10 mmol/L 0.50-2.20 H Lab Interpretation (test cod e = 61289-5) Abnormal [facility] CHEST PULMONARY RLTXVWKUM3506-42-04 17:58:59Provider: CECILE RANGEL Exam: CT CHEST PULMONARY [...] Within normal limits. Musculoskeletal: No acute bony abnormality.[facility] E0595-72-18 17:47:34* Test Item Value Reference Range Interpretation Comme nts TROPONIN I (test code = 4728192047) 0.003 ng/mL <=0.034 JASMYN (test code = [...] of biotin. Lab Interpretation (test code = 09312-1) Normal [facility] NortheastN-TERMINAL GJE-WFT3844-57-26 17:45:17* Test Item Value Reference Range Interpretation Comme nts NT-proBNP (test code = 30693-2) 48 pg/mL <=125 Lab Interpretation (test cod e = 05623-9) [facility] NortheastCOM. METABOLIC PANEL (93483)2023-09-15 17:36:58* Test Item Value Reference Range Interpretation Comme nts NA (test code = 2223178938) 144 mmol/L 135-145 K (test code = 8821003812) 3.4 mmol/L 3.5-5.0 L CL (test code = 6140957639) 102 mmol/L 98-108 CO2 TOTAL (test code = 3013288473) 33 mmol/L 23-31 H AGAP (test code = 2269563937) 9 2-16 BUN (test code = 0204310886) 7 mg/dL 7-23 GLUCOSE (test code = 5454446242) 91 mg/dL 70-110 CREATININE (test code = 2160-0) 0.63 mg/dL 0.50-1.04 TOTAL BILI (test code = 0650352792) 1.0 mg/dL 0.1-1.1 CALCIUM (test code = 9737997139) 8.5 mg/dL 8.6-10.6 L T PROTEIN (test code = 9686379911) 8.0 g/dL 6.3-8.2 ALBUMIN (test code = 9133477319) 4.2 g/dL 3.5-5.0 ALK PHOS (test code = 7444733121) 182 U/L 34-122 H ALTv (test code = 1742-6) 48 U/L 5-35 H AST(SGOT) (test code = 7726631710) 175 U/L 13-40 H eGFR (test code = 08135-9) 120.3 mL/min/1.73m2 CKD-EPI eGFR (2020). Assuming creatinine has been stable day-to-day for at least three months, the eGFR indicates Category G1 (>= 90 mL/min/1.73 m2) Lab Interpretation (test code = 97176-9) [facility] NortheastD-NICMO5810-09-47 17:13:34* Test Item Value Reference Range Interpretation Comments D-DIMER (test code = 6362788321) 0.93 See_Comment H [Automated message] The system [...] a diagnosis. Lab Interpretation (test code = 44366-2) Abnormal [facility] WITH IQNW0269-55-31 17:06:37* Test Item Value Reference Range Interpretation [...] 34.4 g/dL 31.6-35.1 RDW-SD (test code = 36133-9) 46.2 fL 39.0-49.9 RDW-CV (test code = 788-0) 12.9 % 12.0-15.5 PLT (test code = 777-3) 150 166-358 L MPV (test code = 06302-1) 9.1 fL 9.5-12.9 L NRBC/100 WBC (test code = 9186081265) 0.0 0.0-10.0 NRBC x10^3 (test code = 8420159087) See_Comment [Automated [employer] ge] The system which generated this result transmitted reference range: 10*3/?L. The reference range was not used to interpret this result as normal/abnormal. GRAN MAT (NEUT) % (test code = 770-8) 50.9 % IMM GRAN % (test code = 9196966404) 0.50 % LYMPH % (test code = 736-9) 39.0 % MONO % (test code = 5905-5) 7.1 % EOS % (test code = 713-8) 1.0 % BASO % (test code = 706-2) 1.5 % GRAN MAT x10^3(ANC) (test code = 9434634529) 3.02 10*3/uL 1.88-7.09 IMM GRAN x10^3 (test code = 9537448444) 0.03 10*3/uL 0.00-0.06 LYMPH x10^3 (test code = 731-0) 2.31 10*3/uL 1.32-3.29 MONO x10^3 (test code = 742-7) 0.42 10*3/uL 0.33-0.92 EOS x10^3 (test code = 711-2) 0.06 10*3/uL 0.03-0.39 BASO x10^3 (test code = 704-7) 0.09 10*3/uL 0.01-0.07 H Lab Interpretation (test code = 95799-8) [facility] [id number] 16:57:54* Test Item Value Reference Range Interpretation Comme [facility] LACTIC ACID (test code = 2828919617) 1.81 mmol/L 0.50-2.20 Lab Interpretation (test cod e = 05285-0) [facility] [id number] 16:53:00* Test Item Value Reference Range Interpretation Comme nts POCT PREG (test code = 1605) Negative On board controls acceptable with C Line (test code = 3574) Yes POCT PREG LOT # (test code = 357 443820 POCT PREG TEST DATE ( test code = 3576) 08-23-2024 Lab Interpretation (test cod e = 90516-4) [facility] 2 [id number] 00:39:44Exam: Chest (2 Views), 09/13/2023 6:30 PM. Ordering Physician: ELENO OLMSTEAD. History: fever . Technique: Two views of the chest. Comparison: None. Findings: No focal consolidation. No pneumothorax or effusion. Normal size of thecardiac silhouette. No acute osseous finding.[facility] [id number] 00:14:00* Test Item Value Reference Range Interpretation Comme nts POCT PREG (test code = 1605) Negative On board controls acceptable with C Line (test code = 3574) Yes POCT PREG LOT # (test code = 3575) [id number] POCT PREG TEST DATE ( test code = 3576) 05/27/2024 Lab Interpretation (test cod e = 01602-0) [facility]2023-04-27 05:37:38* Test Item Value Reference Range Interpretation Comme nts Height (test code = 9160217466) 67 in Weight (test code = 0279449996) 109 lbs Systolic BP (test code = 8995858388) 102 mmHg Diastolic BP (test code = 8628702116) 67 mmHg Heart Rate (test code = 2863193632) 78 bpm BSA (test code = 9133404475) 1.56 m2 Ao root diam (test code = 1058560748) 3.10 cm Aortic root (test code = 8848570577) 3.1 cm Ao root annulus (test code = 0792418678) 3.1 cm LVOT diameter (test code = 7617564373) 2.02 cm LVOT area (test code = 6348743725) 3.20 cm2 LVIDD (test code = 2610737704) 3.60 cm Left Ventricular End Diastolic Volume by Teichholz Method (test code = 1023320) 56.1 mL IVS (test code = 6886636713) 0.63 cm Interventricular Septum Diastolic Thickness by 2D (test code = 5260835) 0.63 cm LVPWD (test code = 9587374974) 0.65 cm PW (test code = 7700332432) 0.65 cm 0.6-1.1 EF(Teich) (test code = 1859767486) 54.30 % LVIDS (test code = 0976195982) 2.60 cm Left Ventricular End Systolic Volume by Teichholz Method (test code = 8598118) 25.6 mL FS (test code = 6214298977) 28 % EF - 2D (test code = 81985792) 54.30 % LA size (test code = 8359393660) 2.8 cm LAV(MOD-sp4) (test code = 5031924651) 25.30 mL E wave decelartion time (test code = 1730424660) 0.19 s MV stenosis pressure 1/2 time (test code = 4707311948) 55.0 ms MV Peak A Liv (test code = 0431771764) 50.8 cm/s MV Peak E Liv (test code = 9725788652) 84.4 cm/s E/A ratio (test code = 6950070891) 1.66 ratio MV Prop V (test code = 0488172705) 37.10 cm/s MV E/e' septal (test code = 6976280907) 22.4 cm/s Tapse (test code = 8797028216) 1.68 cm LVOT stroke volume (test code = 6013157554) 46.00 cm3 LVOT peak liv (test code = 8236235312) 77.0 cm/s LVOT mn grad (test code = 2801306456) 1.3 mmHg AV LVOT peak gradient (test code = 7740582497) 2.37 mmHg LVOT peak VTI (test code = 0623037361) 14.3 cm LV V1 mean (test code = 4841164645) 54.20 cm/s Aortic valve mean velocity (test code = 8182392062) 82.4 cm/s Ao peak liv (test code = 1037716949) 108.4 cm/s Ao VTI (test code = 3382629280) 20.9 cm AV area by cont VTI (test code = 1859782082) 2.2 cm2 AV area peak liv (test code = 3555261908) 2.3 cm2 Ao max PG (test code = 6265733834) 4.70 mm[Hg] AV peak gradient (test code = 9179129160) 4.7 mmHg AV valve area (test code = 5707127396) 2.20 cm2 AV mean gradient (test code = 7358324263) 2.9 mmHg MR max PG (test code = 5217277848) 94.40 mm[Hg] MR max liv (test code = 0435135525) 485.70 cm/s Mr max liv (test code = 7224083781) 485.7 m/s Radiology Study observation (narrative) (test code = 80135-0) JASMYN (test code = JASMYN) ?Left?Ventricle: Left [...] 2D, color flow Doppler and spectral Doppler. [facility] with Hqbrxrsdcdle5625-26-33 12:37:35* Test Item Value Reference Range Interpretation Comme nts WBC (test code = 6690-2) 3.78 See_Comment L [Automated [employer]] The system which generated this result transmitted reference range: 4.30 - 11.10 10*3/?L. The reference range was not used to interpret this result as normal/abnormal. RBC (test code = 789-8) 2.95 See_Comment L [Automated [employer]] The system which generated this result transmitted [...] 33.8 g/dL 31.6-35.1 RDW-SD (test code = 72470-6) 45.7 fL 39.0-49.9 RDW-CV (test code = 788-0) 12.6 % 12.0-15.5 PLT (test code = 777-3) 95 See_Comment L [Automated messa ge] The system which generated this result transmitted reference range: 166 - 358 10*3/?L. The reference range was not used to interpret this result as normal/abnormal. MPV (test code = 02540-1) 11.6 fL 9.5-12.9 IPF % (test code = 5659751011) 9.1 % 1.3-7.7 H Platelet count measured by fluorescence method. NRBC/100 WBC (test code = 6758865803) 0.0 See_Comment [Automated me ssage] The system which generated this result transmitted reference range: 0.0 - 10.0 /100 WBCs. The reference range was not used to interpret this result as normal/abnormal. NRBC x10^3 (test code = 3259756340) See_Comment [Automated messa ge] The system which generated this result transmitted reference range: 10*3/?L. The reference range was not used to interpret this result as normal/abnormal. SEG % (test code = 38151-4) 56 % 33-76 LYMPH % (test code = 48008-0) 32 % 14-54 MONO % (test code = 18225-5) 12 % 0-4 H ANC (test code = 753-4) 2.12 10*3/uL 1.88-7.09 Lab Interpretation (test code = 07316-9) [facility]th[facility] / NWT2954-12-02 11:49:08* Test Item Value Reference Range Interpretation [...] the indications. Lab Interpretation (test code = 28228-7) [facility] NortheastaPTT2024-01-04 11:49:08* Test Item Value Reference Range Interpretation Comme [facility] APTT Patient (test code = 3173-2) 29 See_Comment [Automated message] The system which generated this result transmitted reference range: 23 - 38 Seconds. The reference range was not used to interpret this result as normal/abnormal. JASMYN (test code = JASMYN) The [facility] patient population mean normal value for aPTT is 30 seconds. Lab Interpretation (test code = 61901-3) Normal [facility] Northeast[facility]. Metabolic Panel (29659)2023-04-25 11:44:23* Test Item Value Reference Range Interpretation Comme [facility] NA (test code = 0056202584) 136 mmol/L 135-145 K (test code = 6449786203) 2.6 mmol/L 3.5-5.0 LL CL (test code = 8388461605) 100 mmol/L 98-108 CO2 TOTAL (test code = 9975069658) 30 mmol/L 23-31 AGAP (test code = 4407342544) 6 2-16 BUN (test code = 6477078225) 16 mg/dL 7-23 GLUCOSE (test code = 3607650556) 96 mg/dL 70-110 CREATININE (test code = 4408634762) 0.71 mg/dL 0.50-1.04 TOTAL BILI (test code = 4630559564) 4.0 mg/dL 0.1-1.1 H CALCIUM (test code = 5958547921) 7.5 mg/dL 8.6-10.6 L T PROTEIN (test code = 5916868656) 5.8 g/dL 6.3-8.2 L ALBUMIN (test code = 3852788229) 3.0 g/dL 3.5-5.0 L ALK PHOS (test code = 9930953944) 170 U/L 34-122 H ALTv (test code = 1742-6) 50 U/L 5-35 H AST(SGOT) (test code = 8164729709) 139 U/L 13-40 H eGFR (test code = 01722-8) 115.3 mL/min/1.73m2 CKD-EPI eGFR (2020). Assuming creatinine has been stable day-to-day for at least three months, the eGFR indicates Category G1 (>= 90 mL/min/1.73 m2) Lab Interpretation (test code = 44826-0) [facility] NortheastMagnesium Wawtq7579-74-32 11:43:47* Test Item Value Reference Range Interpretation Comme nts MAGNESIUM (test code = 8201532430) 2.0 mg/dL 1.7-2.4 Lab Interpretation (test cod e = 26465-8) [facility] NortheastN-TERMINAL PGA-GQC6570-19-04 11:43:47* Test Item Value Reference Range Interpretation Comme nts NT-proBNP (test code = 67565-4) 399 pg/mL <=125 JASMYN (test code = JASMYN) Result Indeterminate-Consid er causes of NT-proBNP elevation other than Heart failure such as acute coronary syndrome, pulmonary embolism, pulmonary hypertension, sepsis, stroke, and renal dysfunction. Lab Interpretation (test code = 20736-0) [facility] NortheastLipase2024-01-04 11:43:47* Test Item Value Reference Range Interpretation Comme nts LIPASE (test code = 1980807087) 475 U/L 0-220 H Lab Interpretation (test cod e = 11693-0) [facility] NortheastPhosphorus Lardm3967-67-28 06:12:16* Test Item Value Reference Range Interpretation Comme nts PHOSPHORUS (test code = 3598590282) 2.0 mg/dL 2.5-5.0 L Slight hemolysis Lab Interpretation (test code = 46610-6) [facility] NortheastLipase2024-01-04 04:47:27* Test Item Value Reference Range Interpretation Comme nts LIPASE (test code = 4099666257) 506 U/L 0-220 H Lab Interpretation (test cod e = 22836-0) [facility] NortheastCT ABDOMEN PELVIS W FNVVQFDB9924-12-67 01:43:47History: Abdominal abscess/infection suspected Elevated bilirubin 6.9, [...] obstruction, perforation, or abscess. The osseous structures areunremarkable.[facility] NortheastEthanol2024-01-04 00:23:03 ALCOHOL<10mg/dL04/24/2023 6:23 PM [facility]<10 Pdpinpjb80-414 Toxic>100 Depression of BETTING CLERKS>400 Fatalities ReportedUnB[facility] Scott & [facility] RockAmmonia, Fsxrcz7094-99-73 23:56:33* Test Item Value Reference Range Interpretation Comme nts AMMONIA (test code = 9864254434) 24 umol/L 9-33 Lab Interpretation (test cod e = 38691-2) [facility] NortheastPOCT Zgko4438-15-41 23:41:00* Test Item Value Reference Range Interpretation Comme nts POCT PREG (test code = 1605) Negative On board controls acceptable with C Line (test code = 3574) Yes POCT PREG LOT # (test code = 3575) [id number] POCT PREG TEST DATE ( test code = 3576) 06/30/2024 Lab Interpretation (test cod e = 59815-7) [facility] NortheastMagnesium2024-01-03 23:24:49* Test Item Value Reference Range Interpretation Comme nts MAGNESIUM (test code = 7677174168) 1.4 mg/dL 1.7-2.4 L Lab Interpretation (test cod e = 50727-1) [facility] NortheastComp. Metabolic Panel (31042)2023-04-24 23:24:28* Test Item Value Reference Range Interpretation Comme nts NA (test code = 8880380718) 134 mmol/L 135-145 L K (test code = 1737063689) 3.6 mmol/L 3.5-5.0 CL (test code = 5084984383) 91 mmol/L 98-108 L CO2 TOTAL (test code = 1731464708) 31 mmol/L 23-31 AGAP (test code = 4199437086) 12 2-16 BUN (test code = 8028940990) 24 mg/dL 7-23 H GLUCOSE (test code = 0660657932) 104 mg/dL 70-110 CREATININE (test code = 7127460288) 1.13 mg/dL 0.50-1.04 H TOTAL BILI (test code = 3601162234) 6.9 mg/dL 0.1-1.1 H CALCIUM (test code = 8110534299) 9.5 mg/dL 8.6-10.6 T PROTEIN (test code = 0832648822) 8.6 g/dL 6.3-8.2 H ALBUMIN (test code = 9922651150) 4.6 g/dL 3.5-5.0 ALK PHOS (test code = 5191965873) 243 U/L 34-122 H ALTv (test code = 1742-6) 70 U/L 5-35 H AST(SGOT) (test code = 5416007723) 203 U/L 13-40 H eGFR (test code = 23732-5) 66.0 mL/min/1.73m2 CKD-EPI eGFR (2020). Assuming creatinine has been stable day-to-day for at least three months, the eGFR indicates Category G2 (60 - 89 mL/min/1.73 m2) Lab Interpretation (test code = 27355-1) [facility] NortheastProthrombin Time / [id number] 23:23:27* Test Item Value Reference Range Interpretation Comme nts PROTIME PATIENT (test code = 5964-2) 15.2 See_Comment H [Automated [employer]] The system which generated this result transmitted reference range: 12.0 - 14.7 Seconds. The reference range was not used to interpret this result as normal/abnormal. INR (test code = 6301-6) 1.2 Normal INR <1.1; Warfarin Therapeutic range 2.0 to 3.0 or 2.5 to 3.5, depending upon the indications. Lab Interpretation (test code = 71110-3) [facility] NortheastActivated Partial Thrmplas Lrg5762-87-17 23:19:26* Test Item Value Reference Range Interpretation Comme nts APTT Patient (test code = 3173-2) 29 See_Comment [Automated message] The system which generated this result transmitted reference range: 23 - 38 Seconds. The reference range was not used to interpret this result as normal/abnormal. JASMYN (test code = JASMYN) The [facility] patient population mean normal value for aPTT is 30 seconds. Lab Interpretation (test code = 49370-0) Normal [facility] NortheastCbc with Bete7618-02-77 23:17:49* Test Item Value Reference Range Interpretation Comme [facility] WBC (test code = 6690-2) 6.47 See_Comment [Automated [employer] ge] The system which generated this result transmitted reference range: 4.30 - 11.10 10*3/?L. The reference range was not used to interpret this result as normal/abnormal. RBC (test code = 789-8) 3.85 See_Comment L [Automated [employer]gree] The system which generated this result transmitted [...] 35.0 g/dL 31.6-35.1 RDW-SD (test code = 72463-4) 44.6 fL 39.0-49.9 RDW-CV (test code = 788-0) 12.4 % 12.0-15.5 PLT (test code = 777-3) 123 See_Comment L [Automated messa ge] The system which generated this result transmitted reference range: 166 - 358 10*3/?L. The reference range was not used to interpret this result as normal/abnormal. MPV (test code = 09281-5) 11.9 fL 9.5-12.9 IPF % (test code = 3064689058) 11.9 % 1.3-7.7 H Platelet count measured by fluorescence method. NRBC/100 WBC (test code = 5065971983) 0.0 See_Comment [Automated [employer] ssage] The system which generated this result transmitted reference range: 0.0 - 10.0 /100 WBCs. The reference range was not used to interpret this result as normal/abnormal. NRBC x10^3 (test code = 6104936836) See_Comment [Automated [employer] ge] The system which generated this result transmitted reference range: 10*3/?L. The reference range was not used to interpret this result as normal/abnormal. GRAN MAT (NEUT) % (test code = 770-8) 59.8 % IMM GRAN % (test code = 3069627569) 0.30 % LYMPH % (test code = 736-9) 18.1 % MONO % (test code = 5905-5) 20.2 % EOS % (test code = 713-8) 0.5 % BASO % (test code = 706-2) 1.1 % GRAN MAT x10^3(ANC) (test code = 9721145655) 3.87 10*3/uL 1.88-7.09 IMM GRAN x10^3 (test code = 0432799045) 0.00-0.06 LYMPH x10^3 (test code = 731-0) 1.17 10*3/uL 1.32-3.29 L MONO x10^3 (test code = 742-7) 1.31 10*3/uL 0.33-0.92 H EOS x10^3 (test code = 711-2) 0.03 10*3/uL 0.03-0.39 BASO x10^3 (test code = 704-7) 0.07 10*3/uL 0.01-0.07 Lab Interpretation (test code = 44355-5) [facility] NortheastUA RFLX MICR CULT IF LMXYIDMWX4985-08-10 04:32:00* Test Item Value Reference Range Interpretation [...] culture: Suprapubic PainSpecimen Description: CLEAN CATCHUR HCG FEFR1755-35-13 04:32:00* Test Item Value Reference Range Interpretation Comme nts UR HCG QUAL (test code = HCGQLU) NEGATIVE 1. Very dilute u rine specimens, as indicated by a lowspecific gravity, may not contain hardware supplies sales representative levels ofhCG. 2. False negative results may occur when the levels of hCGare below the sensitivity level of the test. If is still suspected, a first morningurine specimen should be collected 48 hours later andtested. Indication for culture: Suprapubic PainSpecimen Description: CLEAN CATCH COMPREHENSIVE METABOLIC TATMU0025-82-90 03:55:00* Test Item Value Reference Range Interpretation [...] ALKP) 173 units/L 46-116 H C REACTIVE ZSWLZXW6924-03-51 03:55:00* Test Item Value Reference Range Interpretation Comme nts C REACTIVE PROTEIN (test cod e = CRP) 0.30 mg/dL < 0.3 N - CT MAXIFAC W/JULLBYVO9013-35-46 03:43:00 [facility] 1990 Sex: F Patient Name: DON AMATO Unit No: [id number] EXAMS: CPT CODE: [id number] CT MAXIFAC W/CONTRAST [address] CT MAXILLOFACIAL WITH CONTRAST, 01/12/2023. CLINICAL: Pain. [...] CTDI: 38.85 DLP: 662.82 Trnscrbd D/ (0343) [email or web address].[email or web address] [facility] NAME:DON AMATO Radiology Department PHYS: Jacob Gill MD [address] : 1990 AGE: 32 SEX: F [place], [place] [address] LOC: KianaERS PHONE #: [phone] EXAM DATE: 01/12/2023 STATUS: PRE ER FAX #: [phone] RAD NO: Page 1 Signed Report 1 Patient Name: DON AMATO Unit No: [id number] EXAMS: CPT CODE: [id number] CT MAXIFAC W/CONTRAST 69377 (Continued) Or ig Print D/T: S: 01/12/2023 (0346) [facility] NAME: DON AMATO Radiology Department PHYS: Jacob Gill MD [address] : 1990 AGE: 32 SEX: F [place], [place] [address] LOC: Richard.ERS PHONE #: [phone] EXAM DATE: 01/12/2023 STATUS: PRE ER FAX #: [phone] RAD NO: Page 2 Signed Report 1CBC W/AUTO FBAN4809-72-95 03:29:00* Test Item Value Reference Range Interpretation [...] Comme nts POCT GLU (test code = 6895471152) 155 mg/dL 70-110 H Lab Interpretation (test cod e = 35490-3) Abnormal [facility] GLUCOSE (AUTOMATED)2022-11-11 18:35:24* Test Item Value Reference Range Interpretation Comme nts POCT GLU (test code = 2834175406) 126 mg/dL 70-110 H Lab Interpretation (test cod e = 37324-0) Abnormal [facility] GLUCOSE (AUTOMATED)2022-11-11 17:52:07* Test Item Value Reference Range Interpretation Comme nts POCT GLU (test code = 7173932090) 66 mg/dL 70-110 L Lab Interpretation (test cod e = 37334-5) [facility] NortheastMAGNESIUM2023-07-23 14:12:09* Test Item Value Reference Range Interpretation Comme nts MAGNESIUM (test code = 5894823404) 1.7 mg/dL 1.7-2.4 Slight hemolysis Lab Interpretation (test code = 37414-6) Normal [facility] GLUCOSE (AUTOMATED)2022-11-11 12:23:05* Test Item Value Reference Range Interpretation Comme nts POCT GLU (test code = 3582076347) 59 mg/dL 70-110 L Lab Interpretation (test cod e = 32570-9) Abnormal [facility] WITH TYUP4851-69-63 11:41:02* Test Item Value Reference Range Interpretation [...] 32.6 g/dL 31.6-35.1 RDW-SD (test code = 88336-3) 44.8 fL 39.0-49.9 RDW-CV (test code = 788-0) 11.5 % 12.0-15.5 L PLT (test code = 777-3) 158 See_Comment L [Automated messa ge] The system which generated this result transmitted reference range: 166 - 358 10*3/?L. The reference range was not used to interpret this result as normal/abnormal. MPV (test code = 86320-1) 10.3 fL 9.5-12.9 NRBC/100 WBC (test code = 7540369985) 0.0 See_Comment [Automated me ssage] The system which generated this result transmitted reference range: 0.0 - 10.0 /100 WBCs. The reference range was not used to interpret this result as normal/abnormal. NRBC x10^3 (test code = 3793758868) See_Comment [Automated messa ge] The system which generated this result transmitted reference range: 10*3/?L. The reference range was not used to interpret this result as normal/abnormal. SEG % (test code = 78307-0) 37 % 33-76 BAND % (test code = 15782-3) 1 % 0-1 LYMPH % (test code = 83295-4) 42 % 14-54 MONO % (test code = 58058-9) 19 % 0-4 H EOS % (test code = 89585-3) 1 % 0-3 ANC (test code = 753-4) 1.24 10*3/uL 1.88-7.09 L Lab Interpretation (test code = 32609-9) [facility]LIPASE2023-07-23 10:28:35* Test Item Value Reference Range Interpretation Comme nts LIPASE (test code = 0125501488) 745 U/L 0-220 H Lab Interpretation (test cod e = 51198-8) [facility] NortheastCOMP. METABOLIC PANEL (76493)2022-11-11 10:28:35* Test Item Value Reference Range Interpretation Comme nts NA (test code = 4621901211) 138 mmol/L 135-145 K (test code = 8655478815) 3.0 mmol/L 3.5-5.0 L Slight hemolysis CL (test code = 6016954208) 113 mmol/L 98-108 H CO2 TOTAL (test code = 2843546126) 17 mmol/L 23-31 L AGAP (test code = 0114112481) 8 2-16 BUN (test code = 3948340118) 13 mg/dL 7-23 Slight hemolysis GLUCOSE (test code = 9041494707) 39 mg/dL 70-110 LL CREATININE (test code = 3863458662) 0.38 mg/dL 0.50-1.04 L TOTAL BILI (test code = 2222773022) 1.3 mg/dL 0.1-1.1 H CALCIUM (test code = 2424268135) 7.1 mg/dL 8.6-10.6 L T PROTEIN (test code = 8356326309) 5.1 g/dL 6.3-8.2 L ALBUMIN (test code = 0683409043) 2.5 g/dL 3.5-5.0 L ALK PHOS (test code = 5620455460) 80 U/L 34-122 Slight hemolysis ALTv (test code = 1742-6) 23 U/L 5-35 AST(SGOT) (test code = 3287812091) 56 U/L 13-40 H Slight hemolysis eGFR (test code = 8926269811) 196.3 mL/min/1.73m2 JASMYN (test code = JASMYN) [...] imaging tests). Lab Interpretation (test code = 10014-3) [facility] NortheastFOLATE2023-07-23 08:25:59* Test Item Value Reference Range Interpretation Comme nts FOLATE SER (test code = 6415155077) 17.6 ng/mL 3.0-20.0 Biotin has been reported to cause a positive bias, interpret results relative to patient's use of biotin. Lab Interpretation (test code = 05934-2) Normal [facility] NortheastETHANOL2023-07-22 22:46:37 ALCOHOL<10mg/dL11/10/2022 5:46 PM CDTUTMB LABORATORY SERVICESToxic Greater than or equal to 80 mg/dL. NOTE: Whole blood values are approximately 10% to 15% lower than serum and plasma.[facility] NortheastCOMP. METABOLIC PANEL (27339)2022-11-10 22:45:51* Test Item Value Reference Range Interpretation Comme nts NA (test code = 3285722834) 145 mmol/L 135-145 K (test code = 3279002097) 3.6 mmol/L 3.5-5.0 CL (test code = 2092167573) 104 mmol/L 98-108 CO2 TOTAL (test code = 6350393023) 29 mmol/L 23-31 AGAP (test code = 4769301079) 12 2-16 BUN (test code = 3807481268) 20 mg/dL 7-23 GLUCOSE (test code = 7167877529) 75 mg/dL 70-110 CREATININE (test code = 8831495254) 0.62 mg/dL 0.50-1.04 TOTAL BILI (test code = 1594819469) 1.6 mg/dL 0.1-1.1 H CALCIUM (test code = 4432989347) 9.8 mg/dL 8.6-10.6 T PROTEIN (test code = 6772716997) 7.5 g/dL 6.3-8.2 ALBUMIN (test code = 5620303053) 4.4 g/dL 3.5-5.0 ALK PHOS (test code = 1024192399) 142 U/L 34-122 H ALTv (test code = 1742-6) 33 U/L 5-35 AST(SGOT) (test code = 7669081883) 65 U/L 13-40 H eGFR (test code = 1756080527) 111.6 mL/min/1.73m2 JASMYN (test code = JASMYN) [...] imaging tests). Lab Interpretation (test code = 88287-3) [facility] NortheastLIPASE2023-07-22 22:45:51* Test Item Value Reference Range Interpretation Comme nts LIPASE (test code = 9870375127) 1920 U/L 0-220 H Lab Interpretation (test cod e = 06576-4) [facility] NortheastPREGNANCY TEST, LJMZG9722-06-16 22:44:22* Test Item Value Reference Range Interpretation Comme nts PREG SERUM (test code = 4492695592) Negative JASMYN (test code = JASMYN) Less than 10 IU/L. ?If low titer or ectopic is suspected, resubmit specimen in 48-72 hours. [facility] NortheastCB WITH [id number] 22:37:30* Test Item Value Reference Range Interpretation Comme nts WBC (test code = 6690-2) 5.72 See_Comment [Automated [employer]] The system which generated this result transmitted reference range: 4.30 - 11.10 10*3/?L. The reference range was not used to interpret this result as normal/abnormal. RBC (test code = 789-8) 3.93 See_Comment [Automated [employer]] The system which generated this result transmitted [...] 32.6 g/dL 31.6-35.1 RDW-SD (test code = 04031-2) 44.8 fL 39.0-49.9 RDW-CV (test code = 788-0) 11.8 % 12.0-15.5 L PLT (test code = 777-3) 255 See_Comment [Automated messa ge] The system which generated this result transmitted reference range: 166 - 358 10*3/?L. The reference range was not used to interpret this result as normal/abnormal. MPV (test code = 44102-0) 9.9 fL 9.5-12.9 NRBC/100 WBC (test code = 3376305776) 0.0 See_Comment [Automated [employer] ssage] The system which generated this result transmitted reference range: 0.0 - 10.0 /100 WBCs. The reference range was not used to interpret this result as normal/abnormal. NRBC x10^3 (test code = 4194460862) See_Comment [Automated messa ge] The system which generated this result transmitted reference range: 10*3/?L. The reference range was not used to interpret this result as normal/abnormal. GRAN MAT (NEUT) % (test code = 770-8) 63.5 % IMM GRAN % (test code = 2354638652) 0.30 % LYMPH % (test code = 736-9) 18.7 % MONO % (test code = 5905-5) 16.3 % EOS % (test code = 713-8) 0.2 % BASO % (test code = 706-2) 1.0 % GRAN MAT x10^3(ANC) (test code = 3329770021) 3.63 10*3/uL 1.88-7.09 IMM GRAN x10^3 (test code = 1971675836) 0.00-0.06 LYMPH x10^3 (test code = 731-0) 1.07 10*3/uL 1.32-3.29 L MONO x10^3 (test code = 742-7) 0.93 10*3/uL 0.33-0.92 H EOS x10^3 (test code = 711-2) 0.03-0.39 L BASO x10^3 (test code = 704-7) 0.06 10*3/uL 0.01-0.07 Lab Interpretation (test code = 07009-6) [facility]ETHANOL2023-07-18 08:56:59* Test Item Value Reference Range Interpretation Comme nts ALCOHOL (test code = 4983072606) 247 mg/dL JASMYN (test code = JASMYN) <10 Actcgjvu21-982 Toxic>100 Depression of BETTING CLERKS>400 Fatalities Reported [facility]LIPASE2023-07-[facility] 07:38:50* Test Item Value Reference Range Interpretation Comme nts LIPASE (test code = 9492248125) 2559 U/L 0-220 H Lab Interpretation (test cod e = 64682-2) [facility] NortheastCOMP. METABOLIC PANEL (57759)2022-11-06 07:21:05* Test Item Value Reference Range Interpretation Comme nts NA (test code = 0303865256) 137 mmol/L 135-145 K (test code = 8486560270) 3.4 mmol/L 3.5-5.0 L CL (test code = 9901677294) 96 mmol/L 98-108 L CO2 TOTAL (test code = 9540292796) 33 mmol/L 23-31 H AGAP (test code = 8796634785) 8 2-16 BUN (test code = 3991535910) 5 mg/dL 7-23 L GLUCOSE (test code = 9108736310) 97 mg/dL 70-110 CREATININE (test code = 6074547095) 0.50 mg/dL 0.50-1.04 TOTAL BILI (test code = 3885273965) 1.8 mg/dL 0.1-1.1 H CALCIUM (test code = 4987479247) 8.6 mg/dL 8.6-10.6 T PROTEIN (test code = 2300726347) 7.9 g/dL 6.3-8.2 ALBUMIN (test code = 2669639282) 4.2 g/dL 3.5-5.0 ALK PHOS (test code = 8770442927) 204 U/L 34-122 H ALTv (test code = 1742-6) 52 U/L 5-35 H AST(SGOT) (test code = 7329206698) 147 U/L 13-40 H eGFR (test code = 1453550433) 143.0 mL/min/1.73m2 JASMYN (test code = JASMYN) [...] imaging tests). Lab Interpretation (test code = 61374-0) Abnormal [facility] WITH BIFT0725-03-59 07:08:46* Test Item Value Reference Range Interpretation Comme nts WBC (test code = 6690-2) 6.07 See_Comment [Automated [employer]] The system which generated this result transmitted reference range: 4.30 - 11.10 10*3/?L. The reference range was not used to interpret this result as normal/abnormal. RBC (test code = 789-8) 4.32 See_Comment [Automated [employer]] The system which generated this result transmitted [...] 35.0 g/dL 31.6-35.1 RDW-SD (test code = 96322-9) 41.7 fL 39.0-49.9 RDW-CV (test code = 788-0) 11.3 % 12.0-15.5 L PLT (test code = 777-3) 206 See_Comment [Automated messa ge] The system which generated this result transmitted reference range: 166 - 358 10*3/?L. The reference range was not used to interpret this result as normal/abnormal. MPV (test code = 47471-8) 10.1 fL 9.5-12.9 NRBC/100 WBC (test code = 0137566269) 0.0 See_Comment [Automated me ssage] The system which generated this result transmitted reference range: 0.0 - 10.0 /100 WBCs. The reference range was not used to interpret this result as normal/abnormal. NRBC x10^3 (test code = 2656362439) See_Comment [Automated messa ge] The system which generated this result transmitted reference range: 10*3/?L. The reference range was not used to interpret this result as normal/abnormal. GRAN MAT (NEUT) % (test code = 770-8) 68.0 % IMM GRAN % (test code = 8071205379) 0.30 % LYMPH % (test code = 736-9) 19.1 % MONO % (test code = 5905-5) 11.0 % EOS % (test code = 713-8) 0.3 % BASO % (test code = 706-2) 1.3 % GRAN MAT x10^3(ANC) (test code = 9015618717) 4.12 10*3/uL 1.88-7.09 IMM GRAN x10^3 (test code = 2747250428) 0.00-0.06 LYMPH x10^3 (test code = 731-0) 1.16 10*3/uL 1.32-3.29 L MONO x10^3 (test code = 742-7) 0.67 10*3/uL 0.33-0.92 EOS x10^3 (test code = 711-2) 0.03-0.39 L BASO x10^3 (test code = 704-7) 0.08 10*3/uL 0.01-0.07 H Lab Interpretation (test code = 56170-5) Abnormal [facility] KNKM8317-41-70 06:18:00* Test Item Value Reference Range Interpretation Comme nts POCT PREG (test code = 1605) Negative On board controls acceptable with C Line (test code = 3574) Yes Lab Interpretation (test cod e = 03603-9) Normal [facility] WJOG6522-86-88 02:47:00* Test Item Value Reference Range Interpretation Comme nts POCT PREG (test code = 1605) negative Lab Interpretation (test cod e = 73390-2) Normal [facility] WITH JZAM7681-17-71 01:22:18* Test Item Value Reference Range Interpretation [...] 33.2 g/dL 31.6-35.1 RDW-SD (test code = 44858-7) 44.6 fL 39.0-49.9 RDW-CV (test code = 788-0) 12.2 % 12.0-15.5 PLT (test code = 777-3) See_Comment [Automated messa ge] The system which generated this result transmitted reference range: 166 - 358 10*3/?L. The reference range was not used to interpret this result as normal/abnormal. MPV (test code = 93223-4) 9.4 fL 9.5-12.9 L NRBC/100 WBC (test code = 6773702287) See_Comment [Automated [employer] ssage] The system which generated this result transmitted reference range: 0.0 - 10.0 /100 WBCs. The reference range was not used to interpret this result as normal/abnormal. NRBC x10^3 (test code = 2659010039) See_Comment [Automated messa ge] The system which generated this result transmitted reference range: 10*3/?L. The reference range was not used to interpret this result as normal/abnormal. GRAN MAT (NEUT) % (test code = 770-8) 45.9 % IMM GRAN % (test code = 6723954570) 0.50 % LYMPH % (test code = 736-9) 40.2 % MONO % (test code = 5905-5) 10.9 % EOS % (test code = 713-8) 1.4 % BASO % (test code = 706-2) 1.1 % GRAN MAT x10^3(ANC) (test code = 8809572816) 1.69 10*3/uL 1.88-7.09 L IMM GRAN x10^3 (test code = 9249238834) 0.00-0.06 LYMPH x10^3 (test code = 731-0) 1.48 10*3/uL 1.32-3.29 MONO x10^3 (test code = 742-7) 0.40 10*3/uL 0.33-0.92 EOS x10^3 (test code = 711-2) 0.05 10*3/uL 0.03-0.39 BASO x10^3 (test code = 704-7) 0.04 10*3/uL 0.01-0.07 Lab Interpretation (test code = 76337-7) Abnormal [facility] METABOLIC PANEL (NA, K, CL, CO2, GLUCOSE, BUN, CREATININE, CA)2022-04-13 00:58:33* Test Item Value Reference Range Interpretation Comme nts NA (test code = 4227554997) 140 mmol/L 135-145 K (test code = 7785342666) 3.7 mmol/L 3.5-5.0 CL (test code = 0791053757) 98 mmol/L 98-108 CO2 TOTAL (test code = 6139093824) 34 mmol/L 23-31 H AGAP (test code = 0071841237) 2-16 BUN (test code = 9347873379) 11 mg/dL 7-23 GLUCOSE (test code = 7853102183) 79 mg/dL 70-110 CREATININE (test code = 9483125389) 0.62 mg/dL 0.50-1.04 CALCIUM (test code = 0161141505) 8.1 mg/dL 8.6-10.6 L eGFR (test code = 5239434510) mL/min/1.73m2 JASMYN (test code = JASMYN) Association [...] imaging tests). Lab Interpretation (test code = 60050-3) Abnormal [facility]- [facility] NECK W/ZGRRALIZ7027-54-14 21:37:00 [facility] 1990 Sex: F Name: DON AMATO [facility] : 1990 Age/S: 32 / F [address] [facility] [address] Unit #: [id number] Loc: [place] [address] Phys: Shana Ross NP Acct: [id number] Dis Date: Status: REG ER PHONE#: [phone] Exam Date: 04/06/2022 1192 FAX #: Reason: PAIN EXAMS: CPT: [id number] CT NECK W/CONTRAST 96707 Location: CT neck, 04/06/22 TECHNIQUE: CT examination of the neck was performed with IV contrast. Patient given non ionic IV contrast. 2D Reformatted images acquired sagittally and coronally on the CT workstation using MPR software by hematology technologist. Scanning conducted in the axial plane [...] Thyroid gland is unremarkable. Upper lung zones seenare unremarkable. No finding is seen intracranially. No necrotic masses. IMPRESSION: Findings consistent with a dental caries involving tooth in the right-sided mandible involving approximately tooth#30 without abscess or drainable collection. PAGE 1 Signed Report (CONTINUED) Name: DON AMATO [facility] : 1990 Age/S: 32 / F [address] [address] Unit #: [id number] Loc: [place] [address] Phys: Shana Ross NP Acct: [id number] Dis Date: Status: REG ER PHONE #: [phone] Exam Date: 04/06/20222116 FAX #: Reason: PAIN EXAMS: CPT: [id number] CT NECK W/CONTRAST 55635 (Continued) at 2136 Reported and signed by: Cristina Arroyo M.D. CC: Shana Ross STEAM SHOVEL RUNNER; Arnol Gonsalez MD Technologist:Eduar Medeiros RT(R)(CT) CTDI: DLP: Trnscb Date/Time: 04/06/2022 (2136) CoralDAS6 Orig Print D/T: S: 04/06/2022 (2139) PAGE 2 Signed ReportCOMPREHENSIVE METABOLIC [id number] 20:53:00* Test Item Value Reference Range Interpretation [...] ALKP) 89 Unit/L 45-117 N CBC W/AUTO IXHH7003-08-55 20:25:00* Test Item Value Reference Range Interpretation [...] Interpretation Comme nts NA (test code = 4699763910) 141 mmol/L 135-145 K (test code = 7553373146) 3.9 mmol/L 3.5-5.0 CL (test code = 9225072169) 103 mmol/L 98-108 CO2 TOTAL (test code = 4652834279) 31 mmol/L 23-31 AGAP (test code = 5789442479) 2-16 BUN (test code = 1821920910) 12 mg/dL 7-23 GLUCOSE (test code = 0958352436) 85 mg/dL 70-110 CREATININE (test code = 1831717128) 0.56 mg/dL 0.50-1.04 CALCIUM (test code = 1428235665) 8.3 mg/dL 8.6-10.6 L eGFR (test code =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 WITH DIFF COMP. METABOLIC PANEL (73866) LIPASE Orders Placed This Encounter Medications DISCONTD: [...] -- ED COURSE ED Course as of 11/06/22304e Nov 06, 2022 0219 Care transferred to [...] TEST CBC WITH DIFF COMP. METABOLIC PANEL (73654) LIPASE Amount and/or Complexity of Data Reviewed [...] the Midlevel Provider's note for additional details. [facility] Emergency [facility]ician[facility] HospitalQlqvft9440-91-03 19:17:00 [facility] ([facility]) EMERGENCY PROVIDER REPORT REPORT#:[id number] REPORT STATUS: Signed DATE:04/06/22 TIME:1916 PATIENT: DON AMATO UNIT #: [id number] ROOM/BED: : 90 AGE: 32 SEX: F PCP PHYS: Arnol Gonsalez MD SERVICE AUTHOR: Shana Ross [employer]NER * ALL edits or amendments must be [...] Diagnostics Lab Results Interpretation Results Laboratory Tests 04/06/22 2014: [Embedded Image Not Available] Laboratory Tests: 04/06 [...] % (Auto) (20.5 - 51.1 %) 40.9 Marathon % (Auto) (1.7 - 9.3 %) 9.4 H Eos % (Auto) (0.0 - 6.0 %) 1.3 Baso % (Auto) (0.0 - 2.0 %) 1.3 Neut # (Auto) (1.8 - 7.6 K/mm3) 1.5 L Lymph # (Auto) (0.6 - 3.2 K/mm3) 1.3 Marathon # (Auto) (0.3 - 1.1 K/mm3) 0.3 [...] Discharge/Care Plan Referrals Provider Referral: [facility] Address: [address] [place] [address] [address] [place] [address] Supervising Physician Note MidLv Saw Pt Alone I have reviewed the PA/STEAM SHOVEL RUNNER's note and plan of care. I was available for consultation as needed at all times during the patient's visit in the emergency department. I agree with the clinical impression, plan and disposition. at 2202 at 0602 RPT #: [id number] [facility]
[2024-06-05] MEDS ORDERED: LORazepam 2 MG/ML VIAL ONE ×5 (04:07→15:55)
[2024-06-05] MEDS ORDERED: THIAMINE 200 MG/2 ML INJ ONE (04:08)
[2024-06-05] MEDS ORDERED: NA CHLORIDE 0.9% 1,000 ML ONE ×2 (04:08→06:52)
[2024-06-05] MEDS ORDERED: FOLIC ACID 5 MG/ML VIAL ONE (04:08)
[2024-06-05 04:21] LABS: Absolute Monocytes 0.6 K/uL (0.1-1.3); Absolute Neutrophil 4.9 K/uL (1.8-8.0); Basophils % 0.6 % (0-1.3); Eosinophils % 0.3 % (0-4.4); Hematocrit 33.2 % (36.0-45.0); Hemoglobin 11.4 g/dL (12.0-15.0); Lymphocytes % 25.9 % (15.3-44.8); MCH 32.3 pg (27.0-35.0); MCHC 34.3 g/dL (32.0-36.0); MCV 94.3 fL (80-100); MPV 7.2 fL (7.6-11.3); Monocytes % 7.9 % (3.3-12.3); Neutrophils % 65.3 % (41.7-73.7); Nucleated Red Blood Cells % 0.1 % (0-0); Platelets 159 thou/uL (152-406); RBC Red Blood Cell Count 3.52 M/uL (3.86-4.86); Red Cell Distribution Width 15.3 % (12.1-15.2)
[2024-06-05 05:02] LABS: Barbiturates NEGATIVE (NEGATIVE); Benzodiazepines POSITIVE (NEGATIVE); Cocaine NEGATIVE (NEGATIVE); METHAMPHETAM NEGATIVE (NEGATIVE); Methadone NEGATIVE (NEGATIVE); Opiates NEGATIVE (NEGATIVE); Phencyclidine NEGATIVE (NEGATIVE); THC Cannibis NEGATIVE (NEGATIVE)
[2024-06-05 05:52] LABS: Albumin 3.4 g/dL (3.4-5.0); Anion Gap 13.5 mEq/L (5.0-15.0); Bilirubin Total 0.7 mg/dL (0.2-1.0); Globulin 3.4 g/dL (2.3-3.5); Potassium 3.5 mEq/L (3.5-5.1); Protein, Total 6.8 g/dL (6.4-8.2)
--- NOTE | 2024-06-05 06:12 | RAD REPORT ---
EXAMINATION: Humerus Right CLINICAL HISTORY: right arm pain COMPARISON: None FINDINGS: No acute fracture, dislocation, or bony destructive process. No retained radiopaque foreign body. No focal soft tissue abnormality. IMPRESSION: No acute osseous abnormality. RECOMMENDATIONS: Electronically signed by: Walter Way MD 06/05/2024 05:38 AM [facility] Due to temporary technical issues with the PACS/StylePuzzle reporting system, reports are being keya d by the in-house radiologist without review as a courtesy to ensure prompt reporting the interpreting radiologist is fully responsible for the content of the report. Transcribed Date/Time: 06/05/2024 6:12 AM
--- NOTE | 2024-06-05 06:13 | RAD REPORT ---
EXAM: XR Left Hand Complete, 3 or More Views CLINICAL HISTORY: The patient is 34 years old and is Female; Left hand pain. TECHNIQUE: Three views of the left hand. COMPARISON: No relevant prior studies available. FINDINGS: Bones/joints: Old healed fracture 5th metacarpal. No definite acute fracture. Limited evaluation on the lateral image. No dislocation. Soft tissues: Soft tissue swelling in the 4th digit. No radiopaque foreign body. IMPRESSION: Soft tissue swelling in the 4th digit. No definite acute fracture. Limited evaluation on the latera l image. Electronically signed by: Aurora Monroy MD 06/05/2024 05:52 AM [facility] V[facility] Due to temporary technical issues with the PACS/[employer] reporting system, reports are being keya d by the in-house radiologist without review as a courtesy to ensure prompt reporting the interpreting radiologist is fully responsible for the content of the report. Transcribed Date/Time: 06/05/2024 6:13 AM
--- NOTE | 2024-06-05 06:13 | RAD REPORT ---
EXAM: XR Right Hand Complete, 3 or More Views CLINICAL HISTORY: The patient is 34 years old and is Female; Right hand pain. TECHNIQUE: Three views of the right hand. COMPARISON: No relevant prior studies available. FINDINGS: Bones/joints: Old or healing fracture in the distal radius. Old fracture ulnar styloid. No dislocation. Soft tissues: Unremarkable. No radiopaque foreign body. IMPRESSION: Old or healing fracture in the distal radius. Old fracture ulnar styloid. Electronically signed by: Aurora Monroy MD 06/05/2024 05:51 AM [facility] V2 Due to temporary technical issues with the PACS/Jalbum reporting system, reports are being keya d by the in-house radiologist without review as a courtesy to ensure prompt reporting the interpreting radiologist is fully responsible for the content of the report. Transcribed Date/Time: 06/05/2024 6:12 AM
--- NOTE | 2024-06-05 06:13 | RAD REPORT ---
EXAM: XR Right Forearm, 2 Views CLINICAL HISTORY: The patient is 34 years old and is Female; Right wrist pain. TECHNIQUE: Two views of the right forearm. COMPARISON: No relevant prior studies available. FINDINGS: Bones/joints: Old or healing fracture in the distal radius. No definite acute fracture. No dislocation. Soft tissues: Unremarkable. Other findings: IV access in the antecubital fossa. IMPRESSION: Old or healing fracture in the distal radius. No definite acute fracture. Electronically signed by: Aurora Monroy MD 06/05/2024 05:50 AM [facility] V2 Due to temporary technical issues with the PACS/[employer] reporting system, reports are being keya d by the in-house radiologist without review as a courtesy to ensure prompt reporting the interpreting radiologist is fully responsible for the content of the report. Transcribed Date/Time: 06/05/2024 6:13 AM
--- NOTE | 2024-06-05 06:15 | RAD REPORT ---
EXAM DESCRIPTION: Chest Abdomen Pelvis W Cont CLINICAL HISTORY: recent fall, left leg pain ;Pain COMPARISON: June 26, 2019, April 24, 2024 TECHNIQUE: Contiguous axial images of the chest, abdomen and pelvis were obtained after the administration of in travenous contrast followed by reconstruction images. The exam was performed according to our departmental dose-optimization program, which includes automated exposure control, adjustment of the mA and/or kV according to patient size and/or use of iterative reconstruction technique. FINDINGS: CHEST: MEDIASTINUM: The heart size is normal. No pericardial effusion. The aorta is intact without aneurysm. There are no pathologically enlarged intrathoracic or axillary lymph nodes. LUNGS/PLEURA: The central airways are patent. The lungs are clear. No consolidation or pleural effusi on. No pulmonary edema or pneumothorax. No lung cavitation noted. No noncalcified nodule. SOFT TISSUES/BONES: There are no suspicious-appearing lytic or blastic osseous lesions. No acute osse ous abnormality. ABDOMEN/PELVIS: ORGANS: The liver is fatty infiltrated. The spleen, pancreas, gallbladder and adrenal glands are norm al. The kidneys are intact. GI/BOWEL: There are no CT findings of small bowel obstruction. No acute bowel wall inflammation. The appendix is not appreciated. PELVIS: The bladder is normal. The rectum is normal. No pelvic free. No pelvic lymphadenopathy noted. PERITONEUM/RETROPERITONEUM: No intraperitoneal free air or free fluid. No retroperitoneal or mesenter ic lymphadenopathy. BONES/SOFT TISSUES: No suspicious lytic or blastic osseous lesions. No acute osseous abnormality. The left adductor muscles appear to be enlarged and edematous compared to way to the right. There is fluid surrounding the fibers of the visualized chrysalis. Similar-appearing edema within the left ten sor fascial ramana and gluteus medius. IMPRESSION: 1. No acute intrathoracic abnormality. 2. No acute solid organ or vascular injury. 3. Fatty liver. 4. Enlarged, edematous appearance of the left adductor muscles, tensor fascial ramana and gluteus med ius. Findings may reflect sequela of intramuscular strains. RECOMMENDATIONS: Electronically signed by: Walter Way MD 06/05/2024 05:58 AM [facility] Due to temporary technical issues with the PACS/[employer] reporting system, reports are being keya d by the in-house radiologist without review as a courtesy to ensure prompt reporting the interpreting radiologist is fully responsible for the content of the report. Transcribed Date/Time: 06/05/2024 6:15 AM
--- NOTE | 2024-06-05 06:15 | RAD REPORT ---
EXAMINATION: Head C Spine Mpr Wo Con CLINICAL HISTORY: NUMBNESS COMPARISON: June 02, 2024 TECHNIQUE: Contiguous noncontrast axial images of the head were obtained. Sagittal and coronal reform atted images are generated for review. This exam was performed according to our departmental dose-optimization program, which includes automated exposure control, adjustment of the mA and/or kV according to patient size and/or use of iterative reconstruction technique. FINDINGS: BRAIN/VENTRICLES: There is no acute intracranial hemorrhage, mass effect or midline shift. No abnorma l extra-axial fluid collections. The desai-white differentiation is maintained without evidence of acute infarct. There is no evidence of hydrocephalus. ORBITS: The visualized portions of the orbits demonstrate no acute abnormality. SINUSES: The visualized paranasal sinuses and mastoid air cells demonstrate no acute abnormality. SOFT TISSUE/SKULL: No acute abnormality of the visualized skull or soft tissues. CERVICAL SPINE: FINDINGS: BONES: There is no acute fracture or traumatic malalignment. DEGENERATIVE CHANGES: No significant degenerative changes. SOFT TISSUES: he prevertebral soft tissues are normal. IMPRESSION: No acute intracranial abnormality. No acute osseous abnormality of the cervical spine. RECOMMENDATIONS: If there is further concern for infection, nerve root compression, or disc herniation correlation to MRI imaging would be recommended. Electronically signed by: Walter Way MD 06/05/2024 05:52 AM [facility] Due to temporary technical issues with the PACS/1-800-DENTIST reporting system, reports are being keya d by the in-house radiologist without review as a courtesy to ensure prompt reporting the interpreting radiologist is fully responsible for the content of the report. Transcribed Date/Time: 06/05/2024 6:15 AM
[2024-06-05 06:34] LABS: Creatine Phosphokinase > 100000 U/L (26-192)
[2024-06-05 06:36] LABS: NT PRO-BNP 37 pg/mL (<125)
[2024-06-05 06:37] LABS: C-Reactive Protein < 0.29
--- NOTE | 2024-06-05 06:52 | ER ---
Nurse's Notes [facility] Name: Ethel Amato Age: 34 yrs Sex: Female : 1990 Arrival Date: 06/05/2024 Time: 03:10 Bed 3 Private MD: Diagnosis: Rhabdomyolysis;Acute alcohol intoxication, acute left lower extremity weakness, acute rhabdomyolysis, tachycardia with lactic acidosis ;History of multiple falls, right wrist sprain Presentation: 06/05 03:25 Chief complaint: Patient states: LEFT LEG NUMBNESS SINCE YESTERDAY. PAIN ON THE RIGHT ha1 WRIST AND JAW. 03:25 Coronavirus screen: At this time, unable to obtain information related to travel ha1 outside the [place] Ebola Screen: Patient negative for fever greater than or equal to 101.5 degrees Fahrenheit, and additional compatible Ebola Virus Disease symptoms. Initial Sepsis Screen: Does the patient meet any 2 criteria? No. Patient's initial sepsis screen is negative. Does the patient have a suspected source of infection? No. Patient's initial sepsis screen is negative. Risk Assessment: Do you want to hurt yourself or someone else? Patient reports no desire to harm self or others. Onset of symptoms was June 05, 2024. 03:25 Method Of Arrival: Wheelchair ha1 03:25 Acuity: APOLINAR 3 ha1 Triage Assessment: 03:25 General: Appears uncomfortable, Behavior is cooperative. Pain: Complains of pain in ha1 right wrist Pain currently is 7 out of 10 on a pain scale. Neuro: Level of Consciousness is awake, alert, obeys commands, Oriented to person, place, time, situation. Neuro: Reports numbness in left leg. Cardiovascular: Capillary refill < 3 seconds Thorax. Respiratory: Airway is patent Respiratory effort is even, unlabored, Respiratory pattern is. Historical: - Allergies: 03:25 No Known Allergies; ha1 - Home Meds: 03:25 metoprolol tartrate 25 mg Oral tab 1 tab once daily [Active]; Vyvanse 60 mg Oral cap ha1 once daily [Active]; - PMHx: 03:25 ADD/ADHD; Hypertension; Pneumonia; Alcoholism; ha1 - Immunization history:: Adult Immunizations unknown. - Infectious Disease History:: Denies. - Social history:: Smoking status: Patient denies any tobacco usage or history of. Patient uses alcohol, on a daily basis. - Family history:: not pertinent. Screenin:[facility] ED Fall Risk Assessment (Adult) History of falling in the last 3 months, bm8 including since admission Yes- physiologic fall (2 pts) Confusion or Disorientation Yes (5 pts) Intoxicated or Sedated Yes (3 pts) Impaired Gait Yes (1 pt) Mobility Assist Device Used Yes (1 pt) Altered Elimination Yes (1 pt) Score/Fall Risk Level 3 or more points = High Risk Oriented to surroundings, Maintained a safe environment, Educated pt \T\ family on fall prevention, incl call for assistance when getting out of bed, Assessed \T\ reinforced patient's understanding of fall precautions, Hourly rounding (assess needs \T\ fall precautionary measures) done, Used ambulatory aids as needed (educated on \T\ assisted with), Used gait belt as appropriate Implemented a Fall Risk Plan of Care, Apply high fall risk patient identification: yellow non skid footwear/ fall signage. Abuse screen: Denies threats or abuse. Nutritional screening: No deficits noted. Tuberculosis screening: No symptoms or risk factors identified. Assessment: 03:47 General: Appears in no apparent distress. uncomfortable, slender, well groomed, well bm8 developed, well nourished, Behavior is calm, cooperative, appropriate for age. Pain: Complains of pain in chin, right jaw, back, right arm and left leg Pain currently is 6 out of 10 on a pain scale. Quality of pain is described as aching, throbbing, Pain began 1 day ago. Neuro: No deficits noted. Level of Consciousness is awake, alert, obeys commands, Oriented to person, place, time, situation, Appropriate for age absent in left leg. Cardiovascular: Denies chest pain, Heart tones S1 S2 present Capillary refill blood flow to right arm may be compromised. Heavy bruising noted and cap refill is greater 3 secs in finger tips. . Patient's skin is warm and dry. Respiratory: Airway is patent Respiratory effort is even, unlabored, Respiratory pattern is regular, symmetrical, Breath sounds are clear bilaterally. GI: No signs and/or symptoms were reported involving the gastrointestinal system. : No signs and/or symptoms were reported regarding the genitourinary system. EENT: No signs and/or symptoms were reported regarding the EENT system. Derm: Bruising that is dark purple, on chin, right jaw and right arm. Musculoskeletal: Reports numbness in left leg pain in right arm. 05:45 Reassessment: Patient appears in no apparent distress at this time. Patient and/or bm8 family updated on plan of care and expected duration. Pain level reassessed. Patient is alert, oriented x 3, equal unlabored respirations, skin warm/dry/pink. Patient states symptoms have improved. Vital Signs: 03:25 BP 135 / 90; Pulse 136; Resp 19 S; Temp 97.6(O); Pulse Ox 100% on R/A; Weight 58.06 kg; ha1 Height 5 ft. 5 in. ; 04:32 BP 125 / 85; Pulse 124; Resp 18; Temp 97.6; Pulse Ox 100% ; Pain 3/10; bm8 05:45 BP 124 / 102; Pulse 135; Resp 20; Temp 97.6; Pulse Ox 100% ; Pain 5/10; bm8 03:25 Body Mass Index 21.30 (58.06 kg, 165.1 cm) ha1 04:32 Pain Scale: Adult bm8 05:45 Pain Scale: Adult bm8 [place] Score: 04:32 Eye Response: spontaneous(4). Motor Response: obeys commands(6). Verbal Response: bm8 oriented(5). Total: 15. 05:45 Eye Response: spontaneous(4). Motor Response: obeys commands(6). Verbal Response: bm8 oriented(5). Total: 15. 06:52 Eye Response: spontaneous(4). Motor Response: obeys commands(6). Verbal Response: sp4 oriented(5). Total: 15. NIH Stroke Scale Scores: 06:52 NIHSS Score: 0 sp4 ED Course: 03:13 Patient arrived in ED. [id number] 03:21 Manolo Dos Santos MD is Attending Physician. sp4 03:41 Triage completed. ha1 03:47 Vikas Mojica, LUIS EDUARDO is Primary Nurse. bm8 03:48 Inserted saline lock: 20 gauge in right antecubital area, using aseptic technique. vk Blood collected. Flushed with 10 mL NS. 03:48 EKG done, by ED staff. vk 03:51 Warm blanket given. vk 04:10 BNP Sent. vk 04:30 No provider procedures requiring assistance completed. Urine collected: straight cath bm8 specimen, clear, Amount Returned: 475mL. Patient maintains SpO2 saturation greater than 95% on room air. 04:31 Patient has correct armband on for positive identification. Client placed on continuous bm8 cardiac and pulse oximetry monitoring. NIBP monitoring applied. Pulse ox on. NIBP on. 04:53 Hand Left 3 View XRAY In Process Unspecified. EDMS 04:53 Forearm Right XRAY In Process Unspecified. EDMS 04:53 Hand Right 3 View XRAY In Process Unspecified. EDMS 04:53 Humerus Right XRAY In Process Unspecified. EDMS 05:24 CT Chest, Abdomen, Pelvis - W/Contrast In Process Unspecified. EDMS 05:24 CT Head C Spine In Process Unspecified. EDMS 06:50 William Spencer MD is Hospitalizing Provider. sp4 Administered Medications: 04:17 Drug: foLIC Acid IVPB 1 mg IVPB once Route: IVPB; Site: right antecubital; bm8 06:11 Follow up: Response: No adverse reaction; IV Status: Completed infusion; IV Intake: 1ml bm8 04:18 Drug: NS 0.9% IV 1000 ml IV at 1000 ml once; to be given as a bolus over 60 minutes bm8 Route: IV; Rate: 1000 ml; Site: right antecubital; 06:12 Follow up: Response: No adverse reaction; IV Status: Completed infusion; IV Intake: bm8 1000ml 04:18 Drug: Thiamine IV 100 mg IV at bolus once Route: IV; Rate: bolus; Site: right bm8 antecubital; 06:11 Follow up: Response: No adverse reaction; IV Status: Completed infusion; IV Intake: bm8 0.5ml 04:18 Drug: Ativan IVP 1 mg IVP once Route: IVP; Site: right antecubital; bm8 06:03 Follow up: Response: No adverse reaction bm8 06:56 Drug: NS 0.9% IV 1000 ml IV at 1 bolus Per protocol; to be given as a bolus over 60 bm8 minutes Route: IV; Rate: 1 bolus; Site: right antecubital; Medication: 04:32 VIS not applicable for this client. bm8 Intake: 06:11 IV: 1ml; Total: 1ml. bm8 06:11 IV: 1ml; Total: 2ml. bm8 06:12 IV: 1000ml; Total: 1002ml. bm8 Outcome: 06:52 Decision to Hospitalize by Provider. sp4 18:25 Patient left the ED. NIH Stroke Scale - NIH Stroke Score Date: 06/05/2024 Time: 06:52 Total Score = 0 10. Dysarthria (speech clarity - read or repeat words) - 0(Normal) 11. Extinction and Inattention (visual/tactile/auditory/spatial/personal) - 0(No abnormality) 1a. Level of Consciousness (LOC) - 0(Alert) 1b. Level of Consciousness (LOC) (Month \T\ Age) - 0(Both) 1c. LOC Commands (Open \T\ Closes Eyes/Automobile Service Station Attendant) - 0(Both) 2. Best Gaze (Lateral Gaze Paresis) - 0(Normal) 3. Visual Field Loss - 0(No visual loss) 4. Facial Palsy - 0(Normal) 5a. Left Arm: Motor (10-second hold) - 0(No drift) 5b. Right Arm: Motor (10-second hold) - 0(No drift) 6a. Left Leg: Motor (5-second hold - always test supine) - 0(No drift) 6b. Right Leg: Motor (5-second hold - always test supine) - 0(No drift) 7. Limb Ataxia (finger/nose \T\ heel/perez - test with eyes open) - 0(Absent) 8. Sensory Loss (pinprick arms/legs/face) - 0(Normal) 9. Best Language: Aphasia (description/naming/reading) - 0(No aphasia) Initials: sp4 Signatures: Dispatcher [employer] EDMS Flora Rome RN RN Crystal Hendrickson [email or web address] Tarah Salomon RN RN Manolo Garcia MD MD sp4 Aleja Stack Brad RN RN bm8
--- NOTE | 2024-06-05 06:52 | EDPHYS ---
Physician Documentation [facility] Name: Ethel Amato Age: 34 yrs Sex: Female : 1990 Arrival Date: 06/05/2024 Time: 03:10 Bed 3 Private MD: ED Physician Manolo Dos Santos HPI: 06/05 03:21 This 34 yrs old Female presents to ER via Unassigned with complaints of LEFT sp4 LEG NUMBNESS, RT WRIST INJURY, JAW PAIN. 06:41 34-year-old female with history of moderate to severe alcohol abuse, and has history of sp4 multiple falls. Patient comes in with acute fall at home associated with right wrist pain also states that in the last few days she has not completely lost sensation in the left leg and strength in the left leg. . Historical: - Allergies: 03:25 No Known Allergies; ha1 - Home Meds: 03:25 metoprolol tartrate 25 mg Oral tab 1 tab once daily [Active]; Vyvanse 60 mg Oral cap ha1 once daily [Active]; - PMHx: 03:25 ADD/ADHD; Hypertension; Pneumonia; Alcoholism; ha1 - Immunization history:: Adult Immunizations unknown. - Infectious Disease History:: Denies. - Social history:: Smoking status: Patient denies any tobacco usage or history of. Patient uses alcohol, on a daily basis. - Family history:: not pertinent. ROS: 06:52 Constitutional: Negative for fever, chills, and weight loss, positive for left lower sp4 extremity weakness, positive alcohol intoxication, positive for multiple contusions Eyes: Negative for injury, pain, redness, and discharge, ENT: Negative for injury, pain, and discharge, Neck: Negative for injury, pain, and swelling, Cardiovascular: Negative for chest pain, palpitations, and edema, Respiratory: Negative for shortness of breath, cough, wheezing, and pleuritic chest pain, Abdomen/GI: Negative for abdominal pain, nausea, vomiting, diarrhea, and constipation, Back: Negative for injury and pain, : Negative for injury, bleeding, discharge, and swelling, MS/Extremity: Negative for injury and deformity, Skin: Positive for multiple contusions and mostly right upper extremity 06:52 All other systems are negative, Exam: 06:52 Constitutional: Patient is heavily intoxicated female, ill-appearing, tachycardic, sp4 multiple contusions including submandibular contusion and abrasion, right upper arm contusion and hematoma, right forearm contusion hematoma right hand and wrist contusion and hematoma Head/Face: Normocephalic, atraumatic. Eyes: Pupils equal round and reactive to light, extra-ocular motions intact. Lids and lashes normal. Conjunctiva and sclera are not injected. Cornea within normal limits. Periorbital areas with no swelling, redness, or edema. ENT: Nares patent. No nasal discharge, no septal abnormalities noted. Tympanic membranes are normal and external auditory canals are clear. Oropharynx with no redness, swelling, or masses, exudates, or evidence of obstruction, uvula midline. Mucous membranes moist. Neck: Trachea midline, no thyromegaly or masses palpated, and no cervical lymphadenopathy. Supple, full range of motion without nuchal rigidity, or vertebral point tenderness. Chest/axilla: Normal chest wall appearance and motion. Nontender with no deformity. No lesions are appreciated. Cardiovascular: Regular rate and rhythm with a normal S1 and S2. No gallops, murmurs, or rubs. Normal PMI, no JVD. No pulse deficits. Respiratory: Lungs have equal breath sounds bilaterally, clear to auscultation and percussion. No rales, rhonchi or wheezes noted. No increased work of breathing, no retractions or nasal flaring. Abdomen/GI: Soft, with normal bowel sounds. No distension or tympany. No guarding or rebound. No evidence of tenderness throughout. Back: No spinal tenderness. No costovertebral tenderness. Skin: Warm, dry with normal turgor. Normal color with no rashes, no lesions, and no evidence of cellulitis. MS/ Extremity: Pulses equal, no cyanosis. Neurovascular intact. Full, normal range of motion. Neuro: Awake and alert, GCS 15, oriented to person, place, time, and situation. Cranial nerves II-XII grossly intact. There is right lower extremity weakness. Heavily intoxicated Vital Signs: 03:25 BP 135 / 90; Pulse 136; Resp 19 S; Temp 97.6(O); Pulse Ox 100% on R/A; Weight 58.06 kg; ha1 Height 5 ft. 5 in. ; 04:32 BP 125 / 85; Pulse 124; Resp 18; Temp 97.6; Pulse Ox 100% ; Pain 3/10; bm8 05:45 BP 124 / 102; Pulse 135; Resp 20; Temp 97.6; Pulse Ox 100% ; Pain 5/10; bm8 03:25 Body Mass Index 21.30 (58.06 kg, 165.1 cm) ha1 04:32 Pain Scale: Adult bm8 05:45 Pain Scale: Adult bm8 NIH Stroke Scale Scores: 06:52 NIHSS Score: 0 sp4 [place] Coma Score: 04:32 Eye Response: spontaneous(4). Motor Response: obeys commands(6). Verbal Response: bm8 oriented(5). Total: 15. 05:45 Eye Response: spontaneous(4). Motor Response: obeys commands(6). Verbal Response: bm8 oriented(5). Total: 15. 06:52 Eye Response: spontaneous(4). Motor Response: obeys commands(6). Verbal Response: sp4 oriented(5). Total: 15. MDM: 03:27 Medical Screening Exam initiated sp4 06:57 Differential diagnosis: drug withdrawal. acute psychotic break, depression, psychosis sp4 secondary to non-compliance. Data reviewed: vital signs, nurses notes, old medical records, lab test result(s), EKG, radiologic studies, CT scan, plain films. Consideration of Admission/Observation Patient was admitted/placed on observation. Escalation of care including admission/observation considered. Management of patient was discussed with the following: Hospitalist: Tj STUBBS . Sterile Process Coordinator: Jf STUBBS . ED course: Acute intoxication with tachycardia hepatitis and lactic acidosis also highly elevated CPK. Probably rhabdomyolysis secondary to acutely inflamed musculature of the left lower extremity. Patient will be admitted to ICU at this time. 07:17 ED course: IMPRESSION: 1. No acute intrathoracic abnormality. 2. No acute solid organ sp4 or vascular injury. 3. Fatty liver. 4. Enlarged, edematous appearance of the left adductor muscles, tensor fascial ramana and gluteus medius. Findings may reflect sequela of intramuscular strains.. ED course: FINDINGS: BRAIN/VENTRICLES: There is no acute intracranial hemorrhage, mass effect or midline shift. No abnormal extra-axial fluid collections. The desai-white differentiation is maintained without evidence of acute infarct. There is no evidence of hydrocephalus. ORBITS: The visualized portions of the orbits demonstrate no acute abnormality. SINUSES: The visualized paranasal sinuses and mastoid air cells demonstrate no acute abnormality. SOFT TISSUE/SKULL: No acute abnormality of the visualized skull or soft tissues. CERVICAL SPINE: FINDINGS: BONES: There is no acute fracture or traumatic malalignment. DEGENERATIVE CHANGES: No significant degenerative changes. SOFT TISSUES:The prevertebral soft tissues are normal. IMPRESSION: No acute intracranial abnormality. No acute osseous abnormality of the cervical spine. RECOMMENDATIONS: If there is further concern for infection, nerve root compression, or disc herniation correlation to MRI imaging would be recommended. . ED course: EXAM: XR Left Hand Complete, 3 or More Views CLINICAL HISTORY: The patient is 34 years old and is Female; Left hand pain. TECHNIQUE: Three views of the left hand. COMPARISON: No relevant prior studies available. FINDINGS: Bones/joints: Old healed fracture 5th metacarpal. No definite acute fracture. Limited evaluation on the lateral image. No dislocation. Soft tissues: Soft tissue swelling in the 4th digit. No radiopaque foreign body. IMPRESSION: Soft tissue swelling in the 4th digit. No definite acute fracture. Limited evaluation on the lateral image. Electronically signed by: Aurora Monroy MD . ED course: EXAM: XR Right Forearm, 2 Views CLINICAL HISTORY: The patient is 34 years old and is Female; Right wrist pain. TECHNIQUE: Two views of the right forearm. COMPARISON: No relevant prior studies available. FINDINGS: Bones/joints: Old or healing fracture in the distal radius. No definite acute fracture. No dislocation. Soft tissues: Unremarkable. Other findings: IV access in the antecubital fossa. IMPRESSION: Old or healing fracture in the distal radius. No definite acute fracture. . 06/05 04:01 Order name: B12; Complete Time: 06:16 sp4 06/05 04:01 Order name: Alcohol Level; Complete Time: 06:16 sp4 06/05 04:02 Order name: CBC with Diff; Complete Time: 06:16 sp4 06/05 04:02 Order name: CMP; Complete Time: 06:16 sp4 06/05 04:02 Order name: Lipase; Complete Time: 06:16 sp4 06/05 04:06 Order name: CRP; Complete Time: 06:45 sp4 06/05 04:06 Order name: TSH; Complete Time: 06:45 sp4 06/05 04:06 Order name: T4 Free; Complete Time: 06:45 sp4 06/05 04:06 Order name: Urine Drug Screen; Complete Time: 06:16 sp4 06/05 04:06 Order name: Test, Serum; Complete Time: 06:16 sp4 06/05 04:06 Order name: AMMONIA; Complete Time: 06:16 sp4 06/05 04:06 Order name: Lactate w/ 2H reflex if indic.; Complete Time: 06:16 sp4 06/05 04:06 Order name: CK; Complete Time: 06:45 sp4 06/05 04:07 Order name: BNP; Complete Time: 06:45 sp4 06/05 05:20 Order name: Ghost Lactate-NO COLLECT Timer; Complete Time: 07:36 EDMS 06/05 06:52 Order name: Troponin High Sensitivity; Complete Time: 07:36 la1 06/05 10:36 Order name: Lactate Sepsis 2 HR Follow-up EDMS 06/05 13:36 Order name: Comprehensive Metabolic Panel EDMS 06/05 13:36 Order name: Phosphorus EDMS 06/05 13:36 Order name: Creatine Phosphokinase EDMS 06/05 13:36 Order name: Magnesium EDMS 06/05 04:02 Order name: CT Chest, Abdomen, Pelvis - W/Contrast; Complete Time: 06:27 sp4 06/05 04:03 Order name: CT Head C Spine; Complete Time: 06:16 sp4 06/05 04:04 Order name: Hand Left 3 View XRAY; Complete Time: 06:16 sp4 06/05 04:04 Order name: Forearm Right XRAY; Complete Time: 06:16 sp4 06/05 04:05 Order name: Hand Right 3 View XRAY; Complete Time: 06:16 sp4 06/05 04:05 Order name: Humerus Right XRAY; Complete Time: 06:16 sp4 06/05 07:39 Order name: Lower Extremity Wo EDMS 06/05 07:39 Order name: Lumbar Spine Wo Con EDMS 06/05 11:59 Order name: MRI EDMS 06/05 07:31 Order name: EKG Electrocardiogram EDMS 06/05 04:02 Order name: IV Saline Lock; Complete Time: 04:03 sp4 06/05 04:02 Order name: Labs collected and sent; Complete Time: 04:03 sp4 Administered Medications: 04:17 Drug: foLIC Acid IVPB 1 mg IVPB once Route: IVPB; Site: right antecubital; bm8 06:11 Follow up: Response: No adverse reaction; IV Status: Completed infusion; IV Intake: 1ml bm8 04:18 Drug: NS 0.9% IV 1000 ml IV at 1000 ml once; to be given as a bolus over 60 minutes bm8 Route: IV; Rate: 1000 ml; Site: right antecubital; 06:12 Follow up: Response: No adverse reaction; IV Status: Completed infusion; IV Intake: bm8 1000ml 04:18 Drug: Thiamine IV 100 mg IV at bolus once Route: IV; Rate: bolus; Site: right bm8 antecubital; 06:11 Follow up: Response: No adverse reaction; IV Status: Completed infusion; IV Intake: bm8 0.5ml 04:18 Drug: Ativan IVP 1 mg IVP once Route: IVP; Site: right antecubital; bm8 06:03 Follow up: Response: No adverse reaction bm8 06:56 Drug: NS 0.9% IV 1000 ml IV at 1 bolus Per protocol; to be given as a bolus over 60 bm8 minutes Route: IV; Rate: 1 bolus; Site: right antecubital; Disposition Summary: 06/05/24 06:52 Hospitalization Ordered Notes: Hospitalization Status: Inpatient Admission sp4 Provider: William Spencer Condition: Serious sp4 Problem: new sp4 Symptoms: have improved sp4 Bed/Room Type: Standard sp4 Location: Intensive Care Unit(06/05/24 16:19) eb Room Assignment: 4-(06/05/24 16:19) eb Diagnosis - Rhabdomyolysis sp4 - Acute alcohol intoxication, acute left lower extremity weakness, acute sp4 rhabdomyolysis, tachycardia with lactic acidosis - History of multiple falls, right wrist sprain sp4 Forms: - Medication Reconciliation Form sp4 - SBAR form sp4 - Leadership Thank You Letter sp4 Critical care time excluding procedures: 06:59 Critical care time: Bedside Care: 36 minutes, Consultation: 12 minutes, Family sp4 Intervention: 12 minutes. Total time: 60 minutes NIH Stroke Scale - NIH Stroke Score Date: 06/05/2024 Time: 06:52 Total Score = 0 10. Dysarthria (speech clarity - read or repeat words) - 0(Normal) 11. Extinction and Inattention (visual/tactile/auditory/spatial/personal) - 0(No abnormality) 1a. Level of Consciousness (LOC) - 0(Alert) 1b. Level of Consciousness (LOC) (Month \T\ Age) - 0(Both) 1c. LOC Commands (Open \T\ Closes Eyes/Specification Manager) - 0(Both) 2. Best Gaze (Lateral Gaze Paresis) - 0(Normal) 3. Visual Field Loss - 0(No visual loss) 4. Facial Palsy - 0(Normal) 5a. Left Arm: Motor (10-second hold) - 0(No drift) 5b. Right Arm: Motor (10-second hold) - 0(No drift) 6a. Left Leg: Motor (5-second hold - always test supine) - 0(No drift) 6b. Right Leg: Motor (5-second hold - always test supine) - 0(No drift) 7. Limb Ataxia (finger/nose \T\ heel/perez - test with eyes open) - 0(Absent) 8. Sensory Loss (pinprick arms/legs/face) - 0(Normal) 9. Best Language: Aphasia (description/naming/reading) - 0(No aphasia) Initials: sp4 Signatures: Dispatcher [employer] EDMS Juvenal Perez, METAL WEIGHER-C METAL WEIGHER-Cla1 Lauren Wick Heidy, RN RN ha1 Manolo Dos Santos MD MD sp4 Vikas Mojica, RN RN bm8 Corrections: (The following items were deleted from the chart) 04:02 04:02 Chest Abdomen Pelvis W Con+CT.RAD.BRZ ordered. EDMS EDMS 04:03 04:03 CBC+H.LAB.BRZ ordered. EDMS EDMS 04:03 04:03 COMPREHENSIVE METABOLIC PANEL+C.LAB.BRZ ordered. EDMS EDMS 04:03 04:03 LIPASE+C.LAB.BRZ ordered. EDMS EDMS 04:05 04:05 Humerus Right+RAD.RAD.BRZ ordered. EDMS EDMS 06:52 06:52 Troponin High Sensitivity+C.LAB.BRZ ordered. EDMS EDMS 06:59 06:52 Telemetry/MedSurg (Inpatient) sp4 sp4 06:59 06:52 sp4 sp4 08:33 06:59 Intensive Care Unit sp4 eb 08:33 06:59 sp4 eb 16:19 08:33 [facility] ER HOLD eb eb 16:19 08:33 ERHOLD- eb eb
[2024-06-05] MEDS: ENOXAPARIN 40 MG/0.4 ML SQ SCH (09:00)
[2024-06-05] MEDS: chlordiazePOXIDE HCl 25 MG CAP PO SCH (09:00)
[2024-06-05] MEDS: FOLIC ACID 1 MG, MULTIVITAMINS INJ 10 ML, THIAMINE HCL 100 MG in NA CHLORIDE 0.9% 1,000 ML IV SCH (09:00)
[2024-06-05] MEDS ORDERED: chlordiazePOXIDE HCl 25 MG CAP ONE ×2 (09:32→15:55)
--- NOTE | 2024-06-05 09:50 | RAD REPORT ---
EXAMINATION: MRI LUMBAR SPINE WITHOUT CONTRAST CLINICAL INDICATION: Female, 34 years old. [facility] MAIN N LLE numbness TECHNIQUE: Multiplanar multisequence MR images were obtained of the lumbar spine without IV gadoliniu m contrast. Unless otherwise specified, incidental findings do not require dedicated imaging follow-up. COMPARISON: No prior exam. FINDINGS: For purposes of this dictation, it is assumed that there are 5 non rib-bearing lumbar type vertebrae, and the most caudal fully segmented lumbar vertebra is labeled L5. ALIGNMENT: The lumbar spine has normal alignment. BONE: Vertebral bodies are normal in height. There is a normal marrow signal pattern. CORD: No abnormal signal in the cord. The conus medullaris terminates at a normal level. The nerve ro ots of the cauda equina appear normal. SOFT TISSUE: The included paraspinal soft tissues and retroperitoneal structures are grossly normal. No abnormal masses or enhancement. EVALUATION OF THE INDIVIDUAL LEVELS: L1-2: Unremarkable. L2-3: Unremarkable. L3-4: Unremarkable. L4-5: Broad-based posterior disc bulge. Superimposed left subarticular/foraminal small disc extrusion , appears to contact the exiting left L4 nerve root, with mild adjacent stranding in the perineural fat, with overall mild neural foraminal narrowing. Right neural foramen is patent. No central canal s tenosis. L5-S1: Unremarkable. IMPRESSION: Left L4-5 subarticular and foraminal disc extrusion, contacting the exiting left L4 nerve root with m ild left neural foraminal narrowing. This correlate for symptoms in that distribution. No central canal stenosis. No other acute findings.
[2024-06-05] MEDS: LORazepam 2 MG/ML VIAL IV ONE (09:58)
--- NOTE | 2024-06-05 10:44 | P.HP ---
Certification for Inpatient Patient admitted to: Inpatient With expected LOS: >2 Midnights Patient will require the following post-hospital care: None Practitioner: I am a practitioner with admitting privileges, knowledge of patient current condition, hospital course, and medical plan of care. Services: Services provided to patient in accordance with Admission requirements found in Title 42 Section 412.3 of the Code of Federal Regulations <Juvenal Perez - Last Filed: 06/05/24 10:40> Patient History Date of Service: 06/05/24 Reason for admission: Alcohol drawl, left lower extremity numbness History of Present Illness: Patient with history of alcohol use disorder presents to the emergency department with chief complaint of left leg numbness. She does admit to drinking heavily, regularly and reports that since yesterday afternoon she has had total numbness from her left hip all the way down to her toes. She has some weakness as well but is able to move her leg and lift it off the bed. She denies any IV drug use, she did have a recent dental extraction about a week ago, she was taking Keflex and meloxicam at that time which she has completed. She does have bruises in various stages of healing on her extremities, she reports frequent falls, when asked she denies any physical abuse of any kind. She reports that she lives alone in an apartment. Patient was evaluated in the emergency department her labs were significant for a CK of greater than 100,000, AST 864 ALT 216 alk phos 181 serum alcohol level 303 CT chest abdomen pelvis showed fatty liver, enlarged, edematous appearance of the left adductor muscles, tensor fascia lotta and gluteus medius. These findings may reflect sequela of intramuscular strains. CT head/C-spine was negative for acute findings patient had x-rays of the right forearm which showed old or healing fracture in the distal radius with no definite acute fracture. Patient is tachycardic, she states that she drinks about a pint of tequila every couple days last drink was yesterday afternoon. Patient will be admitted to the ICU for now for further management and treatment of alcohol withdrawal - Past Medical/Surgical History Has patient received pneumonia vaccine in the past: Yes -: ADHD -: HTN -: PNA -: ALCOHOLISM Psychosocial/ Personal History: Lives in an apartment by herself - Family History Family History: Reviewed- Non-Contributory - Social History Smoking Status: Never smoker Alcohol use: Yes CD- Drugs: No Caffeine use: No Place of Residence: Home <ChrisJuvenal Serrano - Last Filed: 06/05/24 10:40> Date of Service: 06/05/24 <William Spencer - Last Filed: 06/06/24 01:08> Allergies No Known Allergies Allergy (Verified 07/07/14 08:06) Home Medications: Metoprolol Tartrate 25 mg PO DAILY 06/05/24 Review of Systems 10-point ROS is otherwise unremarkable Musculoskeletal: Other (Left leg numbness) <Juvenal Perez - Last Filed: 06/05/24 10:40> Physical Examination - Vital Signs Blood Pressure: 121/80 Pulse: 125 Respirations: 16 Pulse Ox (%): 98 - Physical Exam General: Alert, In no apparent distress, Oriented x3 HEENT: Atraumatic, PERRLA, Mucous membr. moist/pink, EOMI Neck: Supple, 2+ carotid pulse no bruit, No LAD, Without JVD or thyroid abnormality Respiratory: Clear to auscultation bilaterally, Normal air movement Cardiovascular: Regular rate/rhythm, Normal S1 S2 Capillary refill: <2 Seconds Gastrointestinal: Normal bowel sounds, No tenderness Musculoskeletal: No tenderness, Other (3+ pulses in BETTY DP and PT ) Integumentary: No rashes Neurological: Normal gait, Normal speech, Normal tone, Normal affect, Abnormal speech (LLE 4/5 strength), Abnormal sensation (No sensaton to LLE) - Studies Laboratory Data (last 24 hrs) 06/05/24 06/05/24 04:07 04:07 WBC 7.50 Hgb 11.4 L Hct 33.2 L Plt Count 159 Sodium 137 Potassium 3.5 BUN 11 Creatinine 0.68 Glucose 101 Total Bilirubin 0.7 AST 864 H ALT 216 H Alkaline Phosphatase 181 H Lipase 87 H <Juvenal Perez - Last Filed: 06/05/24 10:40> - Studies Laboratory Data (last 24 hrs) 06/05/24 06/05/24 04:07 04:07 WBC 7.50 Hgb 11.4 L Hct 33.2 L Plt Count 159 Sodium 137 Potassium 3.5 BUN 11 Creatinine 0.68 Glucose 101 Total Bilirubin 0.7 AST 864 H ALT 216 H Alkaline Phosphatase 181 H Lipase 87 H <William Spencer - Last Filed: 06/06/24 01:08> Assessment and Plan - Plan Assessment: LLE Numbness Rhabdomyolysis Transaminitis Alcohol use disorder with alcohol withdrawal Plan: LLE Numbness 4/5 strength to left lower extremity Numbness from hip to toes on the left leg started 06/04 during the day, no clear reported injury We will obtain MRI of the L-spine and left leg for further evaluation Rhabdomyolysis Received 2 L of IV fluid in ED Continue IV fluids and monitor CPK/renal function Transaminitis Likely related to rhabdomyolysis as well as alcohol use disorder Monitor CMP daily and continue IV fluids Alcohol use disorder with alcohol withdrawal Scheduled Librium with as needed Ativan IV Monitor in ICU for now given potential for significant alcohol withdrawals DVT PPX:lovenox Code status:Full Discharge Plan: Home Plan to discharge in: Greater than 2 days - Advance Directives Does patient have a Living Will: No Does patient have a Durable POA for Healthcare: No - Code Status/Comfort Care Code Status Assessed: Yes (Full code) Critical Care: No Time Spent Managing Pts Care (In Minutes): 70 <Juvenal Perez - Last Filed: 06/05/24 10:40> Date of Service: 06/05/24 Chart has been reviewed. Events of the last 24 hours have been noted. Case discussed with [facility]. I performed a substantial part of the MDM during this patient's care today. I personally made or approved the documented management plan and acknowledge its risk of complications. I agree with the findings and documentation provided in the DAMION's notes. Patient is a 34-year-old female who is well-known to me from prior hospitalizations. She has a history of alcohol abuse and has also suffered significant dental issues. Patient presented with significantly elevated CPK. Patient denies any injuries; however, MRI reveals that patient's had a lobulated heterogeneous masslike signal abnormality with nodular peripheral enhancement within the central aspect of the adductor tegan muscle, measuring 2.8 cm in greatest axial dimension and up to 7.4 cm in greatest craniocaudal extent. This could relate to organizing additional changes within a focal hematoma, although the progressive enhancement may reflect slow extravasation. A cavernous hemangioma could result in a similar appearance on MRI. Extensive signal abnormalities within the muscular compartments most pronounced within the adductor tegan, with superimposed areas of enhancement within the adductor tegan muscle and a smaller region within the biceps femoris, could reflect areas of muscle tear. Patient will continue with aggressive IV hydration. Will also continue with medication for DVT prevention. At this time patient will be admitted to the ICU for closer monitoring. Patient is also severely malnourished. Patient will be closely monitored at this time. Critical care time spent on patient care individually as well as in collaboration with my nurse practitioner was 40 minutes <William Spencer - Last Filed: 06/06/24 01:08>
[2024-06-05] MEDS: LORazepam 2 MG/ML VIAL IV PRN (11:24)
--- NOTE | 2024-06-05 11:58 | RAD REPORT ---
EXAMINATION: MRI LEFT FEMUR CLINICAL INDICATION: Female, 34 years old. LLE numbness TECHNIQUE: Multiplanar, multi sequence imaging was performed of the left femur before and after intra venous administration of 13 mL MultiHance. Unless otherwise specified, incidental findings do not require dedicated imaging follow-up. COMPARISON: CT abdomen and pelvis 06/05/2024. FINDINGS BONE MARROW: No evidence of an acute fracture, avascular necrosis, or osseous lesion. No marrow abno rmality. MUSCLE AND TENDONS: Lobulated 2.8 x 2.3 x 7.4 cm heterogeneous T1 isointense, T2 hyperintense, mass w ithin the central aspect of the adductor oren muscle, demonstrating crescentic and rounded areas of marked hypointensity on T2, especially on the STIR and gradient fat sat images.. The mass shows pr ogressive nodular enhancement along its periphery, most pronounced on the axial postcontrast images, which were acquired latest in the sequence of postcontrast images. See series 13 image 10 vin ng others. Hemorrhage dissecting within the adductor oren muscle fibers, with patchy central enhancement of the muscle fibers above the level of the mass. Nonlocalized rind of T1 isointense flui d measuring up to 1.5 cm in thickness dissecting around the fascia of the rectus femoris muscle, and less pronounced T2 hyperintense fluid along the fascial lines of the other thigh compartments. A small focus of T2 hyperintensity and corresponding enhancement within the biceps femoris, just lateral to the tendon measuring 1.9 cm,, seen on series 13 image 15, could also represent a small con tusion or partial tear of the muscle fibers. INTRAPELVIC AND PERIPHERAL SOFT TISSUES: Visualized pelvic contents are unremarkable without lymphade nopathy or mass. No focal abnormality. Major femoral artery and vein flow void is maintained. Moderate cutaneous edema particularly along the medial upper thigh. Nonlocalized edema and enhancemen t along the upper part of the adductor oren and obturator externus muscles as well. IMPRESSION: Lobulated heterogeneous masslike signal abnormality with nodular peripheral enhancement within the ce ntral aspect of the adductor oren muscle, measuring 2.8 cm in greatest axial dimension and up to 7.4 cm in greatest craniocaudal extent. This could relate to organizing additional changes within a f ocal hematoma, although the progressive enhancement may reflect slow extravasation. A cavernous hemangioma could result in a similar appearance on MRI. Extensive signal abnormalities within the muscular compartments most pronounced within the adductor m agnus, with superimposed areas of enhancement within the adductor Oren muscle and a smaller region within the biceps femoris, could reflect areas of muscle tear. Fluid and hemorrhage dissecting along the fascial lines as above, with no other discrete collections.
[2024-06-05] MEDS ORDERED: chlordiazePOXIDE HCl 25 MG CAP PO SCH (12:00)
[2024-06-05 12:12] LABS: Albumin 2.7 g/dL (3.4-5.0); Albumin/Globulin Ratio 0.9 (1.1-1.8); Anion Gap 11.4 mEq/L (5.0-15.0); Bilirubin Total 0.5 mg/dL (0.2-1.0); Magnesium 1.8 mg/dL (1.6-2.4); Phosphorus 2.9 mg/dL (2.5-4.9); Potassium 3.4 mEq/L (3.5-5.1); Protein, Total 5.7 g/dL (6.4-8.2)
[2024-06-05] MEDS ORDERED: ENOXAPARIN 40 MG/0.4 ML SQ ONE (12:31)
[2024-06-05] MEDS ORDERED: HYDROCODONE/APAP 5/325 MG TAB ONE (12:31)
[2024-06-05] MEDS: HYDROCODONE/APAP 5/325 MG TAB PO PRN (12:35)
[2024-06-05] MEDS: Ringers Lactate 1,000 ML IV SCH (18:00)
[2024-06-05] MEDS ORDERED: Ringers Lactate 1,000 ML IV ONE (18:02)
[2024-06-05] MEDS: CYANOCOBALAMIN 1000MCG/ML INJ IM ONE (18:35)
[2024-06-05] MEDS: DEXMEDETOMIDINE HCL 1,000 MCG in NA CHLORIDE 0.9% 490 ML IV SCH (18:36)
[2024-06-05] MEDS ORDERED: DEXMEDETOMIDINE HCL 200 MCG in NA CHLORIDE 0.9% 98 ML IV SCH (19:00)
[2024-06-06 02:18] LABS: Specific Gravity 1.007 (1.005-1.030); Sqamous Epithelial <5 /HPF (None Seen); Urine Bacteria <20 /HPF (<20); Urine Bilirubin NEGATIVE (Negative); Urine Blood Negative (Negative); Urine Clarity Clear (Clear); Urine Color Colorless (Yellow); Urine Culture Reflex Order NOT NEEDED; Urine Glucose NEGATIVE (Negative); Urine Ketones NEGATIVE (Negative); Urine Micro Reflex YN NO BILL MICROSCOPIC; Urine Nitrite NEGATIVE (Negative); Urine Protein NEGATIVE (Negative); Urine RBC <5 /HPF (None Seen); Urine Urobilinogen Normal (Normal); Urine WBC None Seen /HPF (<5); Urine pH 7.5 (5.0-7.0)
[2024-06-06 07:13] LABS: Absolute Eosinophils 0.1 K/uL (0-0.5); Absolute Lymphocytes (CBC) 0.7 K/uL (0.7-4.9); Absolute Monocytes 0.2 K/uL (0.1-1.3); Absolute Neutrophil 1.3 K/uL (1.8-8.0); Basophils % 0.3 % (0-1.3); Eosinophils % 2.7 % (0-4.4); Hematocrit 22.8 % (36.0-45.0); Hemoglobin 7.7 g/dL (12.0-15.0); Lymphocytes % 29.1 % (15.3-44.8); MCH 32.3 pg (27.0-35.0); MCHC 33.9 g/dL (32.0-36.0); MCV 95.4 fL (80-100); MPV 7.4 fL (7.6-11.3); Monocytes % 8.4 % (3.3-12.3); Neutrophils % 59.5 % (41.7-73.7); Nucleated Red Blood Cells % 0.1 % (0-0); Platelets 82 thou/uL (152-406); RBC Red Blood Cell Count 2.39 M/uL (3.86-4.86); Red Cell Distribution Width 14.6 % (12.1-15.2)
[2024-06-06 08:31] LABS: Blood Morphology Comment NOT SEEN (NOT SEEN); Platelet Estimate DECR; White Blood Cell Scan OK (OK)
[2024-06-06 08:38] LABS: Albumin 2.6 g/dL (3.4-5.0); Albumin/Globulin Ratio 0.9 (1.1-1.8); Anion Gap 6.2 mEq/L (5.0-15.0); Bilirubin Total 0.8 mg/dL (0.2-1.0); Globulin 2.8 g/dL (2.3-3.5); Phosphorus 2.9 mg/dL (2.5-4.9); Potassium 3.2 mEq/L (3.5-5.1); Protein, Total 5.4 g/dL (6.4-8.2)
--- NOTE | 2024-06-06 10:48 | P.PN ---
Date of Service: 06/06/24 Subjective: Still with numbness to LLE No acute events overnight ROS: 10 point ROS as noted above, otherwise negative Physical exam GEN: Alert, oriented, NAD HEENT: Normal conjunctiva, sclera anicteric CV: Regular rate and rhythm, no edema Pulm: Nonlabored respirations on room air ABD: Soft, nontender, nondistended MSK: No joint tenderness, compartments are soft, swelling to left thigh area present, no cyanosis/pallor, 3+ distal pulses Integumentary: No rashes Neuro: Normal speech, normal affect Vitals reviewed Assessment: LLE Numbness Rhabdomyolysis Transaminitis Alcohol use disorder with alcohol withdrawal Plan: LLE Numbness 4/5 strength to left lower extremity Numbness from hip to toes on the left leg started 06/04 during the day, no clear reported injury MRI left femur 06/05 shows Lobulated heterogeneous masslike signal abnormality with nodular peripheral enhancement within the central aspect of the adductor oren muscle, measuring 2.8 cm in greatest axial dimension and up to 7.4 cm in greatest craniocaudal extent. This could relate to organizing additional changes within a focal hematoma, although the progressive enhancement may reflect slow extravasation. A cavernous hemangioma could result in a similar appearance on MRI. Extensive signal abnormalities within the muscular compartments most pronounced within the adductor oren, with superimposed areas of enhancement within the adductor Oren muscle and a smaller region within the biceps femoris, could reflect areas of muscle tear. Fluid and hemorrhage dissecting along the fascial lines as above, with no other discrete collections. MRI L spine shows 06/05 Left L4-5 subarticular and foraminal disc extrusion, contacting the exiting left L4 nerve root with mild left neural foraminal narrowing. This correlate for symptoms in that distribution. No central canal stenosis. No other acute findings. Suspect numbness in left leg are secondary to findings above on MRI of the femur, L-spine findings may also be contributing Will consult PT/OT Monitor H&H-dropped overnight, likely combination of dilution and acute blood loss anemia Rhabdomyolysis Received 2 L of IV fluid in ED Continue IV fluids and monitor CPK/renal function-improving Transaminitis Likely related to rhabdomyolysis as well as alcohol use disorder-improving Monitor CMP daily and continue IV fluids Alcohol use disorder with alcohol withdrawal Scheduled Librium with as needed Ativan IV On precedex at this time, symptoms well controlled Monitor in ICU for now given potential for significant alcohol withdrawals DVT PPX:hold lovenox today given significant drop in hgb Code status:Full Discharge Plan: Home Plan to discharge in: Greater than 2 days Time Spent Managing Pts Care (In Minutes): 35 <Juvenal Perez - Last Filed: 06/06/24 10:52> Chart has been reviewed. Events of the last 24 hours have been noted. Case discussed with [facility]. I performed a substantial part of the MDM during this patient's care today. I personally made or approved the documented management plan and acknowledge its risk of complications. I agree with the findings and documentation provided in the [facility]'s notes Patient's CPK is improved. Patient renal function is stable.Patient remains on Precedex drip to prevent for alcohol withdrawals. Patient continue with tapering dose of Librium as well. Patient had an injury of the abductor oren muscle as noted on MRI. Hematoma noted as well. Hemoglobin has decreased and will continue monitoring this. No signs of active bleeding. ALT and AST are elevated because of muscular injury and released from myocyte and not from liver injury. Patient does have some numbness in the left lower extremity and will continue with supportive care along with nutritional supplementation. <William Spencer - Last Filed: 06/06/24 23:05>
[2024-06-06] MEDS: ONDANSETRON 4 MG/2 ML VIAL IV PRN (12:34)
[2024-06-06] MEDS: Ringers Lactate 1,000 ML IV SCH (17:22)
[2024-06-06 18:24] LABS: Hematocrit 21.5 % (36.0-45.0); Hemoglobin 7.6 g/dL (12.0-15.0)
[2024-06-06] MEDS: POTASSIUM CL SA 10 MEQ TAB PO ONE (19:58)
[2024-06-07 05:51] LABS: Absolute Eosinophils 0.1 K/uL (0-0.5); Absolute Lymphocytes (CBC) 0.6 K/uL (0.7-4.9); Absolute Monocytes 0.2 K/uL (0.1-1.3); Absolute Neutrophil 2.2 K/uL (1.8-8.0); Basophils % 0.4 % (0-1.3); Eosinophils % 3.3 % (0-4.4); Hematocrit 23.7 % (36.0-45.0); Hemoglobin 8.3 g/dL (12.0-15.0); MCH 32.6 pg (27.0-35.0); MCHC 34.9 g/dL (32.0-36.0); MCV 93.3 fL (80-100); MPV 8.1 fL (7.6-11.3); Monocytes % 6.4 % (3.3-12.3); Neutrophils % 70.9 % (41.7-73.7); Platelets 83 thou/uL (152-406); RBC Red Blood Cell Count 2.54 M/uL (3.86-4.86); Red Cell Distribution Width 14.4 % (12.1-15.2)
[2024-06-07 06:52] LABS: Albumin 2.8 g/dL (3.4-5.0); Albumin/Globulin Ratio 0.8 (1.1-1.8); Anion Gap 6.6 mEq/L (5.0-15.0); Bilirubin Total 0.8 mg/dL (0.2-1.0); Globulin 3.3 g/dL (2.3-3.5); Magnesium 1.9 mg/dL (1.6-2.4); Phosphorus 3.8 mg/dL (2.5-4.9); Potassium 3.6 mEq/L (3.5-5.1); Protein, Total 6.1 g/dL (6.4-8.2)
--- NOTE | 2024-06-07 06:58 | P.PN ---
Date of Service: 06/07/24 Subjective: Patient still withdrawing with auditory hallucinations per nursing staff last night had a dental extraction ~1 week ago episode of nausea overnight left leg swelling improving remains on precedex anxious ROS: 10 point ROS as noted above, otherwise negative Physical Exam: GEN: Alert, oriented, anxious CV: Regular rate and rhythm, no edema Pulm: Nonlabored respirations on room air, clear bilaterally ABD: soft, nontender, nondistended Integumentary: ecchymosis inner left thigh MSK: compartments are soft, swelling to left thigh area present, no cyanosis/pallor, 3+ distal pulses Neuro: Normal speech, normal affect no sensation to light touch and pain of lower thigh down to toes, str intact but limited due to upper thigh pain R wrist-minimal strength with extension at wrist, 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, 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 Problem List: LLE Numbness R wrist weakness Possible muscle tears (Abductor oren, Biceps femoris) ETOH withdrawal Fatty liver Rhabdomyolysis Transaminitis Hx of recurrent Pancreatitis LLE Numbness R wrist weakness Possible muscle tears (Abductor oren, Biceps femoris) 4/5 strength to left lower extremity Numbness from hip to toes on the left leg started 06/04 during the day, no clear reported injury MRI left femur (06/05): Lobulated heterogeneous masslike signal abnormality with nodular peripheral enhancement within the central aspect of the adductor oren muscle, 2.8cm in greatest axial dimension up to 7.4cm in greatest craniocaudal extent. Possible focal hematoma / cavernous hemangioma. Extensive signal abnormalities within the muscular compartments, with superimposed areas of enhancement within the adductor Oren muscle and a smaller region within the biceps femoris could reflect muscle tears. Fluid and hemorrhage dissecting along the fascial lines as above, with no other discrete collections. MRI L spine (06/05):Left L4-5 subarticular and foraminal disc extrusion, contacting the exiting left L4 nerve root with mild left neural foraminal narrowing. CT abdomen (06/05): Fatty Liver. Enlarged, edematous appearance of the left adductor muscles, tensor fascial ramana and gluteus medius. Findings may reflect sequela of intramuscular strains. Suspect numbness in left leg are secondary to findings above on MRI of the femur, L-spine findings may also be contributing - but numbness is beyond L4 nerve root dermatome Dr. Rhoades, neuro consulted PT/OT consult Drop in hgb likely combination of dilution and acute blood loss anemia hold lovenox. Continue to monitor Monitor no telemetry surgery consulted ETOH withdrawal Fatty liver Reports drinking ~pint of tequila every few days. Last drink day before admission. Scheduled Librium with as needed Ativan IV On precedex for alcohol withdrawal wean sedation as tolerated CT abdomen (06/05): fatty liver Monitor in ICU for now given potential for significant alcohol withdrawals Continues to withdraw with intermittent auditory hallucinations Rhabdomyolysis Received 2 L of IV fluid in ED Continue LR IVF @100ml/hr Continue to monitor renal function, CPK CPK improving; creatinine stable. Transaminitis Transaminitis Likely multifacotorial secondary to muscular injury and released from myocyte / rhabdo / alcohol use. Daily labs. Continue to monitor. VTE: hold lovenox Code: Full continue ICU level of care Time Spent Managing Pts Care (In Minutes): 55
[2024-06-07] MEDS ORDERED: DEXMEDETOMIDINE HCL 1,000 MCG in NA CHLORIDE 0.9% 490 ML IV SCH (08:00)
[2024-06-07 09:44] LABS: C-Reactive Protein 16.1 mg/L (<3.00)
[2024-06-07 19:14] LABS: Hematocrit 21.5 % (36.0-45.0); Hemoglobin 7.5 g/dL (12.0-15.0)
[2024-06-07] MEDS: POTASSIUM CL SA 10 MEQ TAB PO ONE (20:54)
[2024-06-07] MEDS: DEXMEDETOMIDINE HCL 1,000 MCG in NA CHLORIDE 0.9% 490 ML IV SCH (22:11)
[2024-06-08 05:40] LABS: Hematocrit 22.8 % (36.0-45.0); Hemoglobin 7.8 g/dL (12.0-15.0); RBC Red Blood Cell Count 2.38 M/uL (3.86-4.86)
[2024-06-08 05:41] LABS: Absolute Eosinophils 0.2 K/uL (0-0.5); Absolute Lymphocytes (CBC) 0.9 K/uL (0.7-4.9); Absolute Monocytes 0.5 K/uL (0.1-1.3); Absolute Neutrophil 3.3 K/uL (1.8-8.0); Basophils % 0.5 % (0-1.3); Eosinophils % 3.3 % (0-4.4); Lymphocytes % 18.8 % (15.3-44.8); MCH 32.9 pg (27.0-35.0); MCHC 34.3 g/dL (32.0-36.0); MPV 8.4 fL (7.6-11.3); Monocytes % 9.5 % (3.3-12.3); Neutrophils % 67.9 % (41.7-73.7); Platelets 95 thou/uL (152-406); Red Cell Distribution Width 14.7 % (12.1-15.2)
[2024-06-08 06:32] LABS: Albumin 2.5 g/dL (3.4-5.0); Albumin/Globulin Ratio 0.8 (1.1-1.8); Anion Gap 7.3 mEq/L (5.0-15.0); Bilirubin Total 0.9 mg/dL (0.2-1.0); Magnesium 1.7 mg/dL (1.6-2.4); Phosphorus 3.6 mg/dL (2.5-4.9); Potassium 3.3 mEq/L (3.5-5.1); Protein, Total 5.5 g/dL (6.4-8.2)
[2024-06-08] MEDS: POTASSIUM CL SA 10 MEQ TAB PO ONE (07:28)
--- NOTE | 2024-06-08 08:21 | P.PN ---
Date of Service: 06/08/24 Subjective: continues with withdrawals and intermittent hallucinations slightly more somnolent, tired this morning - likely from medication trying to get out of bed when awake legs feel softer on exam, less swollen. BP low in 80-90s systolic ROS: 10 point ROS as noted above, otherwise negative Physical Exam: GEN: Alert, oriented, anxious CV: Regular rate and rhythm, no edema Pulm: Nonlabored respirations on room air, clear bilaterally ABD: soft, nontender, nondistended Integumentary: ecchymosis inner left thigh MSK: compartments are soft, swelling to left thigh area present, no cyanosis/pallor, 3+ distal pulses R wrist-minimal strength with extension at wrist, weak front desk, 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 Problem List: LLE Numbness R wrist weakness Possible muscle tears (Abductor oren, Biceps femoris) ETOH withdrawal Fatty liver Rhabdomyolysis Transaminitis Hx of recurrent Pancreatitis LLE Numbness R wrist weakness Possible muscle tears (Abductor roen, Biceps femoris) 4/5 strength to left lower extremity Numbness from hip to toes on the left leg started 06/04 during the day, no clear reported injury MRI left femur (06/05): Lobulated heterogeneous masslike signal abnormality with nodular peripheral enhancement within the central aspect of the adductor oren muscle, 2.8cm in greatest axial dimension up to 7.4cm in greatest craniocaudal extent. Possible focal hematoma / cavernous hemangioma. Extensive signal abnormalities within the muscular compartments, with superimposed areas of enhancement within the adductor Oren muscle and a smaller region within the biceps femoris could reflect muscle tears. Fluid and hemorrhage dissecting along the fascial lines as above, with no other discrete collections. MRI L spine (06/05):Left L4-5 subarticular and foraminal disc extrusion, contacting the exiting left L4 nerve root with mild left neural foraminal narrowing. CT abdomen (06/05): Fatty Liver. Enlarged, edematous appearance of the left adductor muscles, tensor fascial ramana and gluteus medius. Findings may reflect sequela of intramuscular strains. Suspect numbness in left leg are secondary to findings above on MRI of the femur, L-spine findings may also be contributing - but numbness is beyond L4 nerve root dermatome Dr. Rhoades, neuro consulted PT/OT consult Drop in hgb likely combination of dilution and acute blood loss anemia hold lovenox. Continue to monitor Monitor no telemetry ETOH withdrawal Fatty liver Reports drinking ~pint of tequila every few days. Last drink day before admission. CT abdomen (06/05): fatty liver Monitor in ICU for now given potential for significant alcohol withdrawals Continues to withdraw with intermittent auditory hallucinations Scheduled Librium with as needed Ativan IV On precedex for alcohol withdrawal wean Precedex as tolerated. Rhabdomyolysis Received 2 L of IV fluid in ED Continue LR IVF @100ml/hr Continue to monitor renal function, CPK CPK improving; creatinine stable. Transaminitis Transaminitis Likely multifacotorial secondary to muscular injury and released from myocyte / rhabdo / alcohol use. Daily labs. Continue to monitor. LFTs improving VTE: hold lovenox Code: Full continue ICU level of care wean precedex as tolerated Time Spent Managing Pts Care (In Minutes): 55
--- NOTE | 2024-06-09 01:35 | CON ---
Consultation called because of left-sided numbness and weakness and to rule out a stroke. History Of Present Illness: Ms. Amato is a 34-year-old patient with heavy chronic alcohol use to the tune of the pint of Ivet every 2 or so days, who came to [facility] on June 05 with significant pain, swelling, weakness, and numbness in the left lower extremity. She had been d rinking very heavily and had progressive symptoms as noted. The patient denied IV drugs. At [facility], head CT scan and imaging of her head and cervical spine showed no acute ischemic hemorr hagic findings. However, a femur MRI done on the identified a lobulated heterogeneous mass like signal abnormalities with nodular peripheral enhancement within the central aspect of the adductor m agnus muscle measuring 2.8 cm in greatest axial dimension and up to 7.4 cm in greatest craniocaudal e xtent. The radiologist noted it represent focal hematoma, although progressive enhancement may refle ct slow extravasation and a cavernous hemangioma may also have the similar appearance. Also noted ex tensive signal abnormalities in the muscle compartments, most pronounced within the adductor tegan a nd superimposed areas of enhancement with smaller region in the biceps femoris, could also represent a tear and muscles. In conjunction, her laboratory studies did show creatine kinase greater than 100 ,000, which is improving significantly with hydration now over 4 days. C-reactive protein elevated a t 16.1. Liver function studies elevated to AST 720, ALT 189, and alkaline phosphatase at 216. Creat inine is essentially unremarkable. Electrolytes show hypokalemia. She had hypocalcemia and was posi tive with plasma alcohol level of 303 with normal less than 10. The patient is admitted to ICU and r eceiving aggressive hydration and electrolyte correction in addition to Ringer's lactate, folic acid, Librium for alcohol withdrawal as her last alcoholic drink was a day before admission. She is also receiving folic acid, thiamine, and Ativan. Past Medical History: As noted, in addition to prior pneumonia, hypertension, attention-deficit diso rder. Family History: Noncontributory. Social History: Chronic heavy alcohol use. Denies smoking or IV drugs. Allergies: NO KNOWN DRUG ALLERGIES. Medications: At home, metoprolol 25 mg daily. Review of Systems: Aside from severe pain, weakness, which is improved and some lower extremity there are numbness and w eakness. Otherwise, she denies any other significant positives on review of systems. Physical Examination: Vital Signs: Blood pressure 108/74, pulse 82, respiratory rate is 18, temperature 97.8, oxygen satur ation 99% to 100%, weight 128 pounds, height 5 feet 5 inches, BMI 21.3. General: Ms. Amato is lying in ICU bed. She is normocephalic, atraumatic. Sclerae are anicteric . Oropharynx pink and moist. Neck: Supple. Extremities: She has mild edema in the left lower extremity. Otherwise, in terms of cranial nerves, no focal cranial nerve deficits. Upper extremity symmetric strength, right lower extremity full str ength 5/5, left lower extremity is 4/5 with decreased sensation actually denies being able to perceiv e pain or sensation from around the thigh downwards on the left. Coordination intact, although unabl e to fully assess and gait will be assessed with therapy when the patient is up and ambulating out of bed with gait belt. Laboratory Studies: White blood cell count 4.9, hemoglobin 7.8, lowest hemoglobin was 7.5, platelets are 95. Sodium 137, potassium 3.3, chloride 106, carbon dioxide 27, BUN 7, creatinine 0.44, glucose 117, calcium 8.1, magnesium 1.7, phosphorus 3.6, total bilirubin 0.9, AST improved to 455, ALT to 18 6, and alkaline phosphatase 196, creatine kinase improved down to 6615 from 100,000. Albumin is 2.5. Her TSH is 2.22, free T4 0.65, vitamin B12 is 291. Please note, lumbar spine MRI shows a broad-based posterior disk bulge at L4-L5 with left subarticula r foraminal small disk extrusion appears to contact the existing left L4 nerve root with mild adjacen t stranding in the perineural fat with overall mild neuroforaminal narrowing. Right neuroforamen is patent. No other significant abnormalities identified. Assessment And Plan: Ms. Amato is a 34-year-old patient with significant muscle destruction in t he left lower extremity with creatine kinase elevated up to greater than 100,000 indicating significa nt rhabdomyolysis of the lower extremity. There may appear to be evidence of trauma and the patient has had multiple episodes of falls related to alcohol consumption. There is no evidence of a stroke. Her workup and management to be on the line of rhabdomyolysis, which is currently in ICU and ongoin g and she is responding well. Continue with alcohol withdrawal prophylaxis. The patient needs to be in an alcohol cessation program if she is in agreement. She after discharge may follow up in Dr. Michael soto's clinic within the month. LZIBETH/RUBÉN Voice ID: [id number] Report ID: [id number]
[2024-06-09 06:05] LABS: Absolute Eosinophils 0.2 K/uL (0-0.5); Absolute Lymphocytes (CBC) 1.3 K/uL (0.7-4.9); Absolute Monocytes 0.5 K/uL (0.1-1.3); Absolute Neutrophil 2.6 K/uL (1.8-8.0); Basophils % 0.5 % (0-1.3); Eosinophils % 3.7 % (0-4.4); Hemoglobin 8.4 g/dL (12.0-15.0); Lymphocytes % 28.5 % (15.3-44.8); MCH 33.3 pg (27.0-35.0); MCHC 33.7 g/dL (32.0-36.0); MCV 98.7 fL (80-100); MPV 8.3 fL (7.6-11.3); Monocytes % 10.8 % (3.3-12.3); Neutrophils % 56.5 % (41.7-73.7); Nucleated Red Blood Cells % 0.1 % (0-0); Platelets 138 thou/uL (152-406); RBC Red Blood Cell Count 2.53 M/uL (3.86-4.86); Red Cell Distribution Width 15.1 % (12.1-15.2)
[2024-06-09 06:41] LABS: Albumin 2.8 g/dL (3.4-5.0); Albumin/Globulin Ratio 0.8 (1.1-1.8); Anion Gap 6.6 mEq/L (5.0-15.0); Bilirubin Total 0.8 mg/dL (0.2-1.0); Globulin 3.4 g/dL (2.3-3.5); Magnesium 1.9 mg/dL (1.6-2.4); Phosphorus 3.6 mg/dL (2.5-4.9); Potassium 3.6 mEq/L (3.5-5.1); Protein, Total 6.2 g/dL (6.4-8.2)
[2024-06-09] MEDS: POTASSIUM CL SA 10 MEQ TAB PO ONE (07:57)
[2024-06-09] MEDS: DEXMEDETOMIDINE HCL 200 MCG in NA CHLORIDE 0.9% 98 ML IV SCH (11:03)
--- NOTE | 2024-06-09 15:56 | P.PN ---
Subjective Date of Service: 06/09/24 Chief Complaint: Alcohol drawl, left lower extremity numbness Patient is awake and interactive. She is complaining about uncontrolled pain especially in her left hip and left thigh. Nurse reports some hallucination episodes overnight. She has no tremors today and she is tolerating her diet. Physical Examination - Vital Signs Temperature: 98.0 F Blood Pressure: 122/87 Pulse: 91 Respirations: 12 Pulse Ox (%): 100 Assessment And Plan - Plan Physical Exam: GEN: Alert, oriented, anxious. CV: Regular rate and rhythm, no edema Pulm: Nonlabored respirations on room air, clear bilaterally ABD: soft, nontender, nondistended. 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 Problem List: LLE Numbness R wrist weakness Possible muscle tears (Abductor oren, Biceps femoris) ETOH withdrawal Fatty liver Rhabdomyolysis Transaminitis Hx of recurrent Pancreatitis LLE Numbness R wrist weakness Possible muscle tears (Abductor oren, Biceps femoris) Rhabdomyolysis Transaminitis Patient with distal radius fracture likely explaining the wrist weakness. Put right wrist in a wrist brace 4/5 strength to left lower extremity likely secondary to hematoma from a fall Numbness from hip to toes on the left leg MRI left femur (06/05): Lobulated heterogeneous masslike signal abnormality with nodular peripheral enhancement within the central aspect of the adductor oren muscle, 2.8cm in greatest axial dimension up to 7.4cm in greatest craniocaudal extent. Possible focal hematoma / cavernous hemangioma. Extensive signal abnormalities within the muscular compartments, with superimposed areas of enhancement within the adductor Oren muscle and a smaller region within the biceps femoris could reflect muscle tears. Fluid and hemorrhage dissecting along the fascial lines as above, with no other discrete collections. MRI L spine (06/05):Left L4-5 subarticular and foraminal disc extrusion, contacting the exiting left L4 nerve root with mild left neural foraminal narrowing. CT abdomen (06/05): Edematous appearance of the left adductor muscles, tensor fascial ramana and gluteus medius. Findings may reflect sequela of intramuscular strains. Dr. Rhoades, neuro input appreciated PT/OT consulted Supportive measures with analgesics. Continue aggressive IV hydration for rhabdomyolysis and monitor CK. CK level is improving. Elevated LFT likely secondary to muscle injury. No anticoagulation given hematoma Activity as tolerated. ETOH withdrawal Fatty liver Reports drinking ~pint of tequila every few days. Last drink day before admission. CT abdomen (06/05): fatty liver. Patient neurology status significantly improved. Continue scheduled Librium and Ativan, wean off Precedex drip and transferred out of the unit once Precedex drip is weaned off Haldol as needed for hallucination VTE: SCD Code: Full
[2024-06-09] MEDS: DEXMEDETOMIDINE HCL 1,000 MCG in NA CHLORIDE 0.9% 490 ML IV SCH (17:00)
[2024-06-09] MEDS: DOCUSATE NA 100 MG CAP PO SCH (20:48)
[2024-06-10 05:38] LABS: Absolute Eosinophils 0.2 K/uL (0-0.5); Absolute Lymphocytes (CBC) 1.3 K/uL (0.7-4.9); Absolute Monocytes 0.7 K/uL (0.1-1.3); Absolute Neutrophil 2.7 K/uL (1.8-8.0); Basophils % 0.4 % (0-1.3); Eosinophils % 3.8 % (0-4.4); Hematocrit 24.4 % (36.0-45.0); Hemoglobin 8.1 g/dL (12.0-15.0); Lymphocytes % 26.3 % (15.3-44.8); MCH 32.6 pg (27.0-35.0); MCHC 33.1 g/dL (32.0-36.0); MCV 98.3 fL (80-100); Monocytes % 14.7 % (3.3-12.3); Neutrophils % 54.8 % (41.7-73.7); Nucleated Red Blood Cells % 0.3 % (0-0); Platelets 184 thou/uL (152-406); RBC Red Blood Cell Count 2.48 M/uL (3.86-4.86); Red Cell Distribution Width 15.8 % (12.1-15.2)
[2024-06-10 06:22] LABS: Albumin 2.7 g/dL (3.4-5.0); Albumin/Globulin Ratio 0.8 (1.1-1.8); Anion Gap 7.4 mEq/L (5.0-15.0); Bilirubin Total 0.9 mg/dL (0.2-1.0); Globulin 3.3 g/dL (2.3-3.5); Magnesium 2.2 mg/dL (1.6-2.4); Phosphorus 4.6 mg/dL (2.5-4.9); Potassium 3.4 mEq/L (3.5-5.1)
[2024-06-10] MEDS: POLYETHYL GLY 3350 17 GM/DOSE PO SCH (08:15)
[2024-06-10] MEDS: KCL 20 MEQ/100 mL IVPB 20 MEQ/100 ML BAG IV SCH (08:16)
[2024-06-10] MEDS ORDERED: SODIUM CHLORIDE 0.9% 10ML INJ IV PRN (14:04)
--- NOTE | 2024-06-10 14:13 | P.PN ---
Subjective Date of Service: 06/10/24 Chief Complaint: Alcohol drawl, left lower extremity numbness Patient having intermittent episodes of vomiting since last night. No reported hallucination. No tremors. Physical Examination - Vital Signs Temperature: 98.2 F Blood Pressure: 137/90 Pulse: 129 Respirations: 18 Pulse Ox (%): 100 Assessment And Plan - Plan Physical Exam: GEN: Alert, oriented, anxious. CV: Regular rate and rhythm, no edema Pulm: Nonlabored respirations on room air, clear bilaterally ABD: soft, nontender, nondistended. Integumentary: ecchymosis and swelling-inner left thigh is improving. 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 Problem List: LLE Numbness R wrist weakness Possible muscle tears (Abductor oren, Biceps femoris) ETOH withdrawal Fatty liver Rhabdomyolysis Transaminitis Hx of recurrent Pancreatitis Chronic anemia Alcohol-related thrombocytopenia. LLE Numbness R wrist weakness Possible muscle tears (Abductor oren, Biceps femoris) Rhabdomyolysis Transaminitis Patient with distal radius fracture likely explaining the wrist weakness. Put right wrist in a wrist brace 4/5 strength to left lower extremity likely secondary to hematoma from a fall Numbness from hip to toes on the left leg MRI left femur (06/05): Lobulated heterogeneous masslike signal abnormality with nodular peripheral enhancement within the central aspect of the adductor oren muscle, 2.8cm in greatest axial dimension up to 7.4cm in greatest craniocaudal extent. Possible focal hematoma / cavernous hemangioma. Extensive signal abnormalities within the muscular compartments, with superimposed areas of enhancement within the adductor Oren muscle and a smaller region within the biceps femoris could reflect muscle tears. Fluid and hemorrhage dissecting along the fascial lines as above, with no other discrete collections. MRI L spine (06/05):Left L4-5 subarticular and foraminal disc extrusion, contacting the exiting left L4 nerve root with mild left neural foraminal narrowing. CT abdomen (06/05): Edematous appearance of the left adductor muscles, tensor fascial ramana and gluteus medius. Findings may reflect sequela of intramuscular strains. Dr. Rhoades, neuro input appreciated PT/OT consulted Supportive measures with analgesics. Continue aggressive IV hydration for rhabdomyolysis and monitor CK. CK level is improving. Elevated LFT likely secondary to muscle injury. No anticoagulation given hematoma Activity as tolerated. ETOH withdrawal Fatty liver Suspected alcoholic gastritis Reports drinking ~pint of tequila every few days. Last drink day before admission. CT abdomen (06/05): fatty liver. Patient neurology status significantly improved. Continue scheduled Librium and Ativan, wean off Precedex drip and transferred out of the unit once Precedex drip is weaned off Haldol as needed for hallucination. 06/10 Patient experiencing episodes of vomiting. Precedex drip weaned off. Taper Librium Continue Ativan as needed. CK level continue to trend down. Continue to monitor CK levels. Clear liquid diet and advance as tolerated. Trial of IV Protonix and sucralfate for possible alcohol gastritis Right lower extremity numbness and ataxic gait likely related to heavy alcohol use. Thiamine 100 mg bid Folic acid 1 mg bid. Thrombocytopenia and anemia likely alcohol related. Platelet count is trending up. Continue PT. Monitor CBC Monitor electrolytes and replace as needed. Right wrist placed in a wrist brace. VTE: SCD Code: Full
[2024-06-10] MEDS: chlordiazePOXIDE HCl 25 MG CAP PO SCH (15:20)
[2024-06-10] MEDS: PANTOPRAZOLE 40 MG INJ IVP SCH (16:12)
[2024-06-10] MEDS: SUCRALFATE 1GM/10ML UCUP PO SCH (16:12)
[2024-06-10] MEDS: MORPHINE 2 MG/ML SYR IV ONE (18:13)
[2024-06-10] MEDS: PROMETHAZINE INJ 25 MG/ML AMP IV ONE (18:14)
[2024-06-10] MEDS: METOPROLOL TARTRATE 5 MG/5 ML INJ IV STA (18:35)
[2024-06-10] MEDS: DEXMEDETOMIDINE HCL 1,000 MCG in NA CHLORIDE 0.9% 490 ML IV SCH (18:39)
[2024-06-10] MEDS ORDERED: DEXMEDETOMIDINE HCL 200 MCG in NA CHLORIDE 0.9% 98 ML IV SCH (19:00)
[2024-06-11 04:41] VITALS: BMI 21.8
[2024-06-11 06:02] LABS: Absolute Eosinophils 0.1 K/uL (0-0.5); Absolute Lymphocytes (CBC) 1.4 K/uL (0.7-4.9); Absolute Monocytes 0.7 K/uL (0.1-1.3); Absolute Neutrophil 2.1 K/uL (1.8-8.0); Basophils % 0.6 % (0-1.3); Eosinophils % 3.3 % (0-4.4); Hematocrit 24.1 % (36.0-45.0); Hemoglobin 8.2 g/dL (12.0-15.0); Lymphocytes % 32.7 % (15.3-44.8); MCH 34.1 pg (27.0-35.0); MCHC 34.2 g/dL (32.0-36.0); MCV 99.7 fL (80-100); MPV 7.7 fL (7.6-11.3); Monocytes % 16.1 % (3.3-12.3); Neutrophils % 47.3 % (41.7-73.7); Nucleated Red Blood Cells % 0.2 % (0-0); Platelets 208 thou/uL (152-406); RBC Red Blood Cell Count 2.42 M/uL (3.86-4.86)
[2024-06-11 06:41] LABS: Albumin 2.9 g/dL (3.4-5.0); Albumin/Globulin Ratio 0.9 (1.1-1.8); Anion Gap 7.5 mEq/L (5.0-15.0); Bilirubin Total 0.9 mg/dL (0.2-1.0); Globulin 3.1 g/dL (2.3-3.5); Magnesium 2.2 mg/dL (1.6-2.4); Phosphorus 4.9 mg/dL (2.5-4.9); Potassium 3.5 mEq/L (3.5-5.1)
[2024-06-11] MEDS: NA CHLORIDE 0.9% 1,000 ML IV ONE (07:30)
[2024-06-11] MEDS: THIAMINE HCL 100 MG TABLET PO SCH (08:13)
[2024-06-11] MEDS: FOLIC ACID 1 MG TABLET PO SCH (08:17)
[2024-06-12 05:53] LABS: Absolute Eosinophils 0.1 K/uL (0-0.5); Absolute Lymphocytes (CBC) 1.5 K/uL (0.7-4.9); Absolute Monocytes 0.7 K/uL (0.1-1.3); Absolute Neutrophil 1.7 K/uL (1.8-8.0); Eosinophils % 3.2 % (0-4.4); Hematocrit 27.4 % (36.0-45.0); Hemoglobin 9.2 g/dL (12.0-15.0); Lymphocytes % 36.8 % (15.3-44.8); MCH 33.3 pg (27.0-35.0); MCHC 33.6 g/dL (32.0-36.0); MCV 99.1 fL (80-100); MPV 7.9 fL (7.6-11.3); Monocytes % 17.3 % (3.3-12.3); Neutrophils % 41.7 % (41.7-73.7); Nucleated Red Blood Cells % 0.4 % (0-0); Platelets 246 thou/uL (152-406); RBC Red Blood Cell Count 2.76 M/uL (3.86-4.86); Red Cell Distribution Width 16.3 % (12.1-15.2)
[2024-06-12 06:07] LABS: Anion Gap 6.3 mEq/L (5.0-15.0); Magnesium 2.2 mg/dL (1.6-2.4); Phosphorus 4.4 mg/dL (2.5-4.9); Potassium 3.3 mEq/L (3.5-5.1)
[2024-06-12] MEDS: POTASSIUM 25 MEQ EFFERV TAB PO ONE (08:31)
[2024-06-12 08:48] LABS: Atypical Lymphocytes 5 %; Blood Morphology Comment NOTED (NOT SEEN); Differential Total Cells Count 100; Eosinophils 5 % (0-3); Lymphocytes 27 % (15-42); Metamyelocytes 1 % (0-0); Monocytes 16 % (0-10); Platelet Estimate ADEQ; Reactive Lymphocytes 1 %; Segmented Neutrophils 45 % (40-80); Stomatocytes 1+
--- NOTE | 2024-06-12 10:59 | P.PN ---
Subjective Date of Service: 06/11/24 Chief Complaint: Alcohol drawl, left lower extremity numbness No issues overnight. Patient reports good sleep. No tremors. Precedex drip weaned down. Assessment And Plan - Plan Physical Exam: GEN: Alert, oriented, anxious. CV: Regular rate and rhythm, no edema Pulm: Nonlabored respirations on room air, clear bilaterally ABD: soft, nontender, nondistended. Integumentary: ecchymosis and swelling-inner left thigh is improving. MSK: no cyanosis/pallor, 3+ distal pulses, bruise. Neuro: No focal motor deficit, no tremors, Problem List: LLE Numbness R wrist weakness Possible muscle tears (Abductor oren, Biceps femoris) ETOH withdrawal Fatty liver Rhabdomyolysis Transaminitis Hx of recurrent Pancreatitis Chronic anemia Alcohol-related thrombocytopenia. LLE Numbness R wrist weakness Possible muscle tears (Abductor oren, Biceps femoris) Rhabdomyolysis Transaminitis Patient with distal radius fracture likely explaining the wrist weakness. Put right wrist in a wrist brace 4/5 strength to left lower extremity likely secondary to hematoma from a fall Numbness from hip to toes on the left leg MRI left femur (06/05): Lobulated heterogeneous masslike signal abnormality with nodular peripheral enhancement within the central aspect of the adductor oren muscle, 2.8cm in greatest axial dimension up to 7.4cm in greatest craniocaudal extent. Possible focal hematoma / cavernous hemangioma. Extensive signal abnormalities within the muscular compartments, with superimposed areas of enhancement within the adductor Oren muscle and a smaller region within the biceps femoris could reflect muscle tears. Fluid and hemorrhage dissecting along the fascial lines as above, with no other discrete collections. MRI L spine (06/05):Left L4-5 subarticular and foraminal disc extrusion, contacting the exiting left L4 nerve root with mild left neural foraminal narrowing. CT abdomen (06/05): Edematous appearance of the left adductor muscles, tensor fascial ramana and gluteus medius. Findings may reflect sequela of intramuscular strains. Dr. Rhoades, neuro input appreciated PT/OT consulted Supportive measures with analgesics. Continue aggressive IV hydration for rhabdomyolysis and monitor CK. CK level is improving. Elevated LFT likely secondary to muscle injury. No anticoagulation given hematoma Activity as tolerated. ETOH withdrawal Fatty liver Suspected alcoholic gastritis Reports drinking ~pint of tequila every few days. Last drink day before admission. CT abdomen (06/05): fatty liver. Patient neurology status significantly improved. Continue scheduled Librium and Ativan, wean off Precedex drip and transferred out of the unit once Precedex drip is weaned off Haldol as needed for hallucination. 06/10 Patient experiencing episodes of vomiting. Precedex drip weaned off. Taper Librium Continue Ativan as needed. CK level continue to trend down. Continue to monitor CK levels. Clear liquid diet and advance as tolerated. Trial of IV Protonix and sucralfate for possible alcohol gastritis Right lower extremity numbness and ataxic gait likely related to heavy alcohol use. Thiamine 100 mg bid Folic acid 1 mg bid. Thrombocytopenia and anemia likely alcohol related. Platelet count is trending up. Continue PT. Monitor CBC Monitor electrolytes and replace as needed. Right wrist placed in a wrist brace. 06/11 Patient more stable after Precedex drip was resumed. Tremor significantly reduced. She is tolerating diet. Continue current dose thiamine. Continue PT Monitor and optimize electrolytes as needed. VTE: SCD Code: Full
--- NOTE | 2024-06-12 11:02 | P.PN ---
Subjective Date of Service: 06/12/24 Chief Complaint: Alcohol drawl, left lower extremity numbness Patient has no new complaint. Precedex drip weaned down. No tremors. She is tolerating diet. Physical Examination - Vital Signs Temperature: 97.3 F Blood Pressure: 117/78 Pulse: 102 Respirations: 23 Pulse Ox (%): 98 Assessment And Plan - Plan Physical Exam: GEN: Alert, oriented, NAD CV: Regular rate and rhythm, no edema Pulm: Nonlabored respirations on room air, clear bilaterally ABD: soft, nontender, nondistended. Integumentary: ecchymosis and swelling-inner left thigh is improving. MSK: no cyanosis/pallor, 3+ distal pulses. Neuro: No focal motor deficit, no tremors, Problem List: LLE Numbness R wrist weakness Possible muscle tears (Abductor oren, Biceps femoris) ETOH withdrawal Fatty liver Rhabdomyolysis Transaminitis Hx of recurrent Pancreatitis Chronic anemia Alcohol-related thrombocytopenia. LLE Numbness R wrist weakness Possible muscle tears (Abductor oren, Biceps femoris) Rhabdomyolysis Transaminitis Patient with distal radius fracture likely explaining the wrist weakness. Put right wrist in a wrist brace 4/5 strength to left lower extremity likely secondary to hematoma from a fall Numbness from hip to toes on the left leg MRI left femur (06/05): Lobulated heterogeneous masslike signal abnormality with nodular peripheral enhancement within the central aspect of the adductor oren muscle, 2.8cm in greatest axial dimension up to 7.4cm in greatest craniocaudal extent. Possible focal hematoma / cavernous hemangioma. Extensive signal abnormalities within the muscular compartments, with superimposed areas of enhancement within the adductor Oren muscle and a smaller region within the biceps femoris could reflect muscle tears. Fluid and hemorrhage dissecting along the fascial lines as above, with no other discrete collections. MRI L spine (06/05):Left L4-5 subarticular and foraminal disc extrusion, contacting the exiting left L4 nerve root with mild left neural foraminal narrowing. CT abdomen (06/05): Edematous appearance of the left adductor muscles, tensor fascial ramana and gluteus medius. Findings may reflect sequela of intramuscular strains. Dr. Rhoades, neuro input appreciated PT/OT consulted Supportive measures with analgesics. Continue aggressive IV hydration for rhabdomyolysis and monitor CK. CK level is improving. Elevated LFT likely secondary to muscle injury. No anticoagulation given hematoma Activity as tolerated. ETOH withdrawal Fatty liver Suspected alcoholic gastritis Reports drinking ~pint of tequila every few days. Last drink day before admission. CT abdomen (06/05): fatty liver. Patient neurology status significantly improved. Continue scheduled Librium and Ativan, wean off Precedex drip and transferred out of the unit once Precedex drip is weaned off Haldol as needed for hallucination. 06/10 Patient experiencing episodes of vomiting. Precedex drip weaned off. Taper Librium Continue Ativan as needed. CK level continue to trend down. Continue to monitor CK levels. Clear liquid diet and advance as tolerated. Trial of IV Protonix and sucralfate for possible alcohol gastritis Right lower extremity numbness and ataxic gait likely related to heavy alcohol use. Thiamine 100 mg bid Folic acid 1 mg bid. Thrombocytopenia and anemia likely alcohol related. Platelet count is trending up. Continue PT. Monitor CBC Monitor electrolytes and replace as needed. Right wrist placed in a wrist brace. 06/11 Patient more stable after Precedex drip was resumed. Tremor significantly reduced. She is tolerating diet. Continue current dose thiamine. Continue PT Monitor and optimize electrolytes as needed. 06/12 Day 7 on admission. Anticipating alcohol withdrawal symptoms to wean off. Continue to wean Precedex drip Scale down Librum Continue Ativan as needed Analgesics as needed Continue PT. VTE: SCD Code: Full
[2024-06-12] MEDS ORDERED: ONDANSETRON 4 MG/2 ML VIAL IV PRN (21:13)
[2024-06-12] MEDS: MORPHINE 2 MG/ML SYR IV PRN (21:20)
[2024-06-13 05:51] LABS: Absolute Eosinophils 0.2 K/uL (0-0.5); Absolute Lymphocytes (CBC) 1.6 K/uL (0.7-4.9); Absolute Monocytes 0.9 K/uL (0.1-1.3); Absolute Neutrophil 2.1 K/uL (1.8-8.0); Eosinophils % 3.1 % (0-4.4); Hematocrit 25.9 % (36.0-45.0); Hemoglobin 8.7 g/dL (12.0-15.0); MCH 33.5 pg (27.0-35.0); MCHC 33.7 g/dL (32.0-36.0); MCV 99.5 fL (80-100); MPV 7.9 fL (7.6-11.3); Monocytes % 18.9 % (3.3-12.3); Nucleated Red Blood Cells % 0.1 % (0-0); Platelets 275 thou/uL (152-406); Red Cell Distribution Width 16.2 % (12.1-15.2)
[2024-06-13 06:15] LABS: Anion Gap 9.3 mEq/L (5.0-15.0); Magnesium 2.3 mg/dL (1.6-2.4); Phosphorus 4.6 mg/dL (2.5-4.9); Potassium 3.3 mEq/L (3.5-5.1)
[2024-06-13] MEDS: POTASSIUM 25 MEQ EFFERV TAB PO ONE (09:00)
[2024-06-13] MEDS: PROMETHAZINE INJ 25 MG/ML AMP IV PRN (11:12)
[2024-06-13] MEDS: KCL 20 MEQ/100 mL IVPB 20 MEQ/100 ML BAG IV SCH (11:14)
[2024-06-13 12:09] LABS: Specific Gravity 1.009 (1.005-1.030); Urine Bilirubin NEGATIVE (Negative); Urine Blood Negative (Negative); Urine Clarity Clear (Clear); Urine Color Light-Yellow (Yellow); Urine Glucose NEGATIVE (Negative); Urine Ketones NEGATIVE (Negative); Urine Microscopic Reflex YN NO UMIC; Urine Nitrite NEGATIVE (Negative); Urine Protein NEGATIVE (Negative); Urine Urobilinogen Normal (Normal)
--- NOTE | 2024-06-13 12:34 | P.PN ---
Subjective Date of Service: 06/13/24 Chief Complaint: Alcohol drawl, left lower extremity numbness Patient experiencing intermittent vomiting. She is still tachycardic and has mild hand tremors. Precedex drip weaned off yesterday Physical Examination - Vital Signs Temperature: 97.7 F Blood Pressure: 120/76 Pulse: 103 Respirations: 18 Pulse Ox (%): 100 Assessment And Plan - Plan Physical Exam: GEN: Alert, oriented, NAD CV: Regular rate and rhythm, no edema Pulm: Nonlabored respirations on room air, clear bilaterally ABD: soft, nontender, nondistended. Integumentary: ecchymosis and swelling-inner left thigh is improved. MSK: no cyanosis/pallor, 3+ distal pulses. Neuro: No focal motor deficit, fine hand tremors Problem List: LLE Numbness R wrist weakness Possible muscle tears (Abductor oren, Biceps femoris) ETOH withdrawal Fatty liver Rhabdomyolysis Transaminitis Hx of recurrent Pancreatitis Chronic anemia Alcohol-related thrombocytopenia. Alcohol-related thrombocytopenia LLE Numbness R wrist weakness Possible muscle tears (Abductor oren, Biceps femoris) Rhabdomyolysis Transaminitis Patient with distal radius fracture likely explaining the wrist weakness. Put right wrist in a wrist brace 4/5 strength to left lower extremity likely secondary to hematoma from a fall Numbness from hip to toes on the left leg MRI left femur (06/05): Lobulated heterogeneous masslike signal abnormality with nodular peripheral enhancement within the central aspect of the adductor oren muscle, 2.8cm in greatest axial dimension up to 7.4cm in greatest craniocaudal extent. Possible focal hematoma / cavernous hemangioma. Extensive signal abnormalities within the muscular compartments, with superimposed areas of enhancement within the adductor Oren muscle and a smaller region within the biceps femoris could reflect muscle tears. Fluid and hemorrhage dissecting along the fascial lines as above, with no other discrete collections. MRI L spine (06/05):Left L4-5 subarticular and foraminal disc extrusion, contacting the exiting left L4 nerve root with mild left neural foraminal narrowing. CT abdomen (06/05): Edematous appearance of the left adductor muscles, tensor fascial ramana and gluteus medius. Findings may reflect sequela of intramuscular strains. Dr. Rhoades, neuro input appreciated PT/OT consulted Supportive measures with analgesics. Continue aggressive IV hydration for rhabdomyolysis and monitor CK. CK level is improving. Elevated LFT likely secondary to muscle injury. No anticoagulation given hematoma Activity as tolerated. ETOH withdrawal Fatty liver Suspected alcoholic gastritis Reports drinking ~pint of tequila every few days. Last drink day before admission. CT abdomen (06/05): fatty liver. Patient neurology status significantly improved. Continue scheduled Librium and Ativan, wean off Precedex drip and transferred out of the unit once Precedex drip is weaned off Haldol as needed for hallucination. 06/10 Patient experiencing episodes of vomiting. Precedex drip weaned off. Taper Librium Continue Ativan as needed. CK level continue to trend down. Continue to monitor CK levels. Clear liquid diet and advance as tolerated. Trial of IV Protonix and sucralfate for possible alcohol gastritis Right lower extremity numbness and ataxic gait likely related to heavy alcohol use. Thiamine 100 mg bid Folic acid 1 mg bid. Thrombocytopenia and anemia likely alcohol related. Platelet count is trending up. Continue PT. Monitor CBC Monitor electrolytes and replace as needed. Right wrist placed in a wrist brace. 06/11 Patient more stable after Precedex drip was resumed. Tremor significantly reduced. She is tolerating diet. Continue current dose thiamine. Continue PT Monitor and optimize electrolytes as needed. 06/12 Day 7 on admission. Anticipating alcohol withdrawal symptoms to wean off. Continue to wean Precedex drip Scale down Librum Continue Ativan as needed Analgesics as needed Continue PT. 06/13 Patient ambulated 200 feet independently yesterday during therapy. Precedex drip weaned off. She is still showing some signs of alcohol withdrawal with tremors and tachycardia Continue scheduled Librium and Ativan as needed. Antiemetics as needed. Protonix and sucralfate for alcohol related gastritis. Increase activity as tolerated Monitor and optimize electrolytes. Correct potassium as needed. Stable chronic anemia. Thrombocytopenia resolved. VTE: SCD Code: Full
[2024-06-14 05:11] LABS: Absolute Basophils 0.1 K/uL (0-0.5); Absolute Eosinophils 0.2 K/uL (0-0.5); Absolute Lymphocytes (CBC) 1.7 K/uL (0.7-4.9); Absolute Neutrophil 2.4 K/uL (1.8-8.0); Eosinophils % 4.3 % (0-4.4); Hematocrit 27.5 % (36.0-45.0); Hemoglobin 9.2 g/dL (12.0-15.0); Lymphocytes % 31.6 % (15.3-44.8); MCH 32.9 pg (27.0-35.0); MCHC 33.4 g/dL (32.0-36.0); MCV 98.7 fL (80-100); MPV 7.9 fL (7.6-11.3); Monocytes % 18.3 % (3.3-12.3); Neutrophils % 44.8 % (41.7-73.7); Nucleated Red Blood Cells % 0.2 % (0-0); Platelets 330 thou/uL (152-406); RBC Red Blood Cell Count 2.79 M/uL (3.86-4.86); Red Cell Distribution Width 16.3 % (12.1-15.2)
[2024-06-14 05:27] LABS: Albumin 3.2 g/dL (3.4-5.0); Albumin/Globulin Ratio 0.9 (1.1-1.8); Anion Gap 9.5 mEq/L (5.0-15.0); Bilirubin Total 0.7 mg/dL (0.2-1.0); Globulin 3.4 g/dL (2.3-3.5); Magnesium 2.1 mg/dL (1.6-2.4); Potassium 3.5 mEq/L (3.5-5.1); Protein, Total 6.6 g/dL (6.4-8.2)
[2024-06-14] MEDS: ENOXAPARIN 40 MG/0.4 ML SQ SCH (08:59)
[2024-06-14] MEDS: POTASSIUM CL SA 10 MEQ TAB PO ONE (09:00)
--- NOTE | 2024-06-14 10:41 | P.PN ---
Subjective Date of Service: 06/14/24 Chief Complaint: Alcohol drawl, left lower extremity numbness Patient is doing better today. 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 No vomiting since this morning. Physical Examination - Vital Signs Temperature: 97.8 F Blood Pressure: 103/66 Pulse: 93 Respirations: 15 Pulse Ox (%): 100 Assessment And Plan - Plan Physical Exam: GEN: Alert, oriented, NAD CV: Regular rate and rhythm, no edema Pulm: Nonlabored respirations on room air, clear bilaterally ABD: soft, nontender, nondistended. Integumentary: ecchymosis and swelling-inner left thigh is improved. MSK: no cyanosis/pallor, 3+ distal pulses. Neuro: No focal motor deficit, fine hand tremors Problem List: LLE Numbness R wrist weakness Possible muscle tears (Abductor oren, Biceps femoris) ETOH withdrawal Fatty liver Rhabdomyolysis Transaminitis Hx of recurrent Pancreatitis Chronic anemia Alcohol-related thrombocytopenia. Alcohol-related thrombocytopenia LLE Numbness R wrist weakness Possible muscle tears (Abductor oren, Biceps femoris) Rhabdomyolysis Transaminitis Patient with distal radius fracture likely explaining the wrist weakness. Put right wrist in a wrist brace 4/5 strength to left lower extremity likely secondary to hematoma from a fall Numbness from hip to toes on the left leg MRI left femur (06/05): Lobulated heterogeneous masslike signal abnormality with nodular peripheral enhancement within the central aspect of the adductor oren muscle, 2.8cm in greatest axial dimension up to 7.4cm in greatest craniocaudal extent. Possible focal hematoma / cavernous hemangioma. Extensive signal abnormalities within the muscular compartments, with superimposed areas of enhancement within the adductor Oren muscle and a smaller region within the biceps femoris could reflect muscle tears. Fluid and hemorrhage dissecting along the fascial lines as above, with no other discrete collections. MRI L spine (06/05):Left L4-5 subarticular and foraminal disc extrusion, contacting the exiting left L4 nerve root with mild left neural foraminal narrowing. CT abdomen (06/05): Edematous appearance of the left adductor muscles, tensor fascial ramana and gluteus medius. Findings may reflect sequela of intramuscular strains. Dr. Rhoades, neuro input appreciated PT/OT consulted Supportive measures with analgesics. Continue aggressive IV hydration for rhabdomyolysis and monitor CK. CK level is improving. Elevated LFT likely secondary to muscle injury. No anticoagulation given hematoma Activity as tolerated. ETOH withdrawal Fatty liver Suspected alcoholic gastritis Reports drinking ~pint of tequila every few days. Last drink day before admission. CT abdomen (06/05): fatty liver. Patient neurology status significantly improved. Continue scheduled Librium and Ativan, wean off Precedex drip and transferred out of the unit once Precedex drip is weaned off Haldol as needed for hallucination. 06/10 Patient experiencing episodes of vomiting. Precedex drip weaned off. Taper Librium Continue Ativan as needed. CK level continue to trend down. Continue to monitor CK levels. Clear liquid diet and advance as tolerated. Trial of IV Protonix and sucralfate for possible alcohol gastritis Right lower extremity numbness and ataxic gait likely related to heavy alcohol use. Thiamine 100 mg bid Folic acid 1 mg bid. Thrombocytopenia and anemia likely alcohol related. Platelet count is trending up. Continue PT. Monitor CBC Monitor electrolytes and replace as needed. Right wrist placed in a wrist brace. 06/11 Patient more stable after Precedex drip was resumed. Tremor significantly reduced. She is tolerating diet. Continue current dose thiamine. Continue PT Monitor and optimize electrolytes as needed. 06/12 Day 7 on admission. Anticipating alcohol withdrawal symptoms to wean off. Continue to wean Precedex drip Scale down Librum Continue Ativan as needed Analgesics as needed Continue PT. 06/13 Patient ambulated 200 feet independently yesterday during therapy. Precedex drip weaned off. She is still showing some signs of alcohol withdrawal with tremors and tachycardia Continue scheduled Librium and Ativan as needed. Antiemetics as needed. Protonix and sucralfate for alcohol related gastritis. Increase activity as tolerated Monitor and optimize electrolytes. Correct potassium as needed. Stable chronic anemia. Thrombocytopenia resolved. 06/14 Withdrawal symptoms improving off Precedex drip. LFTs significantly improved. Continue to taper Librium Continue Ativan as needed Protonix and sucralfate for alcohol-related gastritis Patient is now ambulating. Increase activity as tolerated. VTE: SCD Code: Full
--- NOTE | 2024-06-15 12:49 | EKG ---
Test Date: 2024-06-05 Test Time: 03:37:49 Hand I Thermal Cutter: MIGUE MEASUREMENT RESULTS: Intervals: Rate: 129 GA: 140 QRSD: 74 QT: 296 QTc: 433 [place]: P: 71 GA: 140 QRS: 80 T: 52 INTERPRETIVE STATEMENTS: Sinus tachycardia Possible Left atrial enlargement Borderline ECG Compared to ECG 04/24/2024 10:40:29 No significant changes Electronically Signed On 06-15-24 12:24:03 [employer] by Chi Cervantes
[2024-06-15] MEDS: chlordiazePOXIDE HCl 25 MG CAP PO SCH (16:16)
--- NOTE | 2024-06-15 18:15 | P.PN ---
Subjective Date of Service: 06/15/24 Chief Complaint: Alcohol drawl, left lower extremity numbness Patient states she has been ambulating with less difficulty today. No vomiting since yesterday. She feels she is improving. She is eating well. Physical Examination - Vital Signs Temperature: 97.9 F Blood Pressure: 105/66 Pulse: 108 Respirations: 16 Pulse Ox (%): 100 Assessment And Plan - Plan Physical Exam: GEN: Alert, oriented, NAD CV: Regular rate and rhythm, no edema Pulm: Nonlabored respirations on room air, clear bilaterally ABD: soft, nontender, nondistended. Integumentary: ecchymosis and swelling-inner left thigh is improved. MSK: no cyanosis/pallor, 3+ distal pulses. Neuro: No focal motor deficit, fine hand tremors Problem List: LLE Numbness R wrist weakness Possible muscle tears (Abductor oren, Biceps femoris) ETOH withdrawal Fatty liver Rhabdomyolysis Transaminitis Hx of recurrent Pancreatitis Chronic anemia Alcohol-related thrombocytopenia. Alcohol-related thrombocytopenia LLE Numbness R wrist weakness Possible muscle tears (Abductor oren, Biceps femoris) Rhabdomyolysis Transaminitis Patient with distal radius fracture likely explaining the wrist weakness. Put right wrist in a wrist brace 4/5 strength to left lower extremity likely secondary to hematoma from a fall Numbness from hip to toes on the left leg MRI left femur (06/05): Lobulated heterogeneous masslike signal abnormality with nodular peripheral enhancement within the central aspect of the adductor oren muscle, 2.8cm in greatest axial dimension up to 7.4cm in greatest craniocaudal extent. Possible focal hematoma / cavernous hemangioma. Extensive signal abnormalities within the muscular compartments, with superimposed areas of enhancement within the adductor Oren muscle and a smaller region within the biceps femoris could reflect muscle tears. Fluid and hemorrhage dissecting along the fascial lines as above, with no other discrete collections. MRI L spine (06/05):Left L4-5 subarticular and foraminal disc extrusion, contacting the exiting left L4 nerve root with mild left neural foraminal narrowing. CT abdomen (06/05): Edematous appearance of the left adductor muscles, tensor fascial ramana and gluteus medius. Findings may reflect sequela of intramuscular strains. Dr. Rhoades, neuro input appreciated PT/OT consulted Supportive measures with analgesics. Continue aggressive IV hydration for rhabdomyolysis and monitor CK. CK level is improving. Elevated LFT likely secondary to muscle injury. No anticoagulation given hematoma Activity as tolerated. ETOH withdrawal Fatty liver Suspected alcoholic gastritis Reports drinking ~pint of tequila every few days. Last drink day before admission. CT abdomen (06/05): fatty liver. Patient neurology status significantly improved. Continue scheduled Librium and Ativan, wean off Precedex drip and transferred out of the unit once Precedex drip is weaned off Haldol as needed for hallucination. 06/10 Patient experiencing episodes of vomiting. Precedex drip weaned off. Taper Librium Continue Ativan as needed. CK level continue to trend down. Continue to monitor CK levels. Clear liquid diet and advance as tolerated. Trial of IV Protonix and sucralfate for possible alcohol gastritis Right lower extremity numbness and ataxic gait likely related to heavy alcohol use. Thiamine 100 mg bid Folic acid 1 mg bid. Thrombocytopenia and anemia likely alcohol related. Platelet count is trending up. Continue PT. Monitor CBC Monitor electrolytes and replace as needed. Right wrist placed in a wrist brace. 06/11 Patient more stable after Precedex drip was resumed. Tremor significantly reduced. She is tolerating diet. Continue current dose thiamine. Continue PT Monitor and optimize electrolytes as needed. 06/12 Day 7 on admission. Anticipating alcohol withdrawal symptoms to wean off. Continue to wean Precedex drip Scale down Librum Continue Ativan as needed Analgesics as needed Continue PT. 06/13 Patient ambulated 200 feet independently yesterday during therapy. Precedex drip weaned off. She is still showing some signs of alcohol withdrawal with tremors and tachycardia Continue scheduled Librium and Ativan as needed. Antiemetics as needed. Protonix and sucralfate for alcohol related gastritis. Increase activity as tolerated Monitor and optimize electrolytes. Correct potassium as needed. Stable chronic anemia. Thrombocytopenia resolved. 06/14 Withdrawal symptoms improving off Precedex drip. LFTs significantly improved. Continue to taper Librium Continue Ativan as needed Protonix and sucralfate for alcohol-related gastritis Patient is now ambulating. Increase activity as tolerated. 06/15 Alcohol withdrawal symptoms significantly improved, however patient is still tachycardic. Tremor has improved. Weaned down Librium to 25 mg every 12 hrs. Continue Ativan as needed. Increase activity as tolerated Protonix and sucralfate for alcohol-related gastritis. Discharge planning. VTE: SCD Code: Full
--- NOTE | 2024-06-15 19:48 | P.DS ---
Admission Date: 06/05/24 Discharge Date: 06/15/24 Disposition: ROUTINE DISCHARGE Discharge Condition: FAIR Reason for Admission: Alcohol drawl, left lower extremity numbness Brief History of Present Illness: Patient with history of alcohol use disorder presented to the emergency department with chief complaint of left leg numbness. She admitted to drinking heavily, regularly. She reported numbness from her left hip all the way down to her toes. She denies any IV drug use, she did have a recent dental extraction about 1 week prior, and she took Keflex and meloxicam. She reported frequent falls Patient was evaluated in the emergency department her labs were significant for a CK of greater than 100,000, AST 864 ALT 216 alk phos 181 serum alcohol level [address] CT chest abdomen pelvis showed fatty liver, enlarged, edematous appearance of the left adductor muscles, tensor fascia lotta and gluteus medius. These findings may reflect sequela of intramuscular strains. CT head/C-spine was negative for acute findings patient had x-rays of the right forearm which showed old or healing fracture in the distal radius with no definite acute fracture. Patient noted to be tachycardic and experiencing alcohol withdrawal symptoms. She was admitted to the ICU for further management. Hospital Course: Problem List: LLE Numbness R wrist weakness Possible muscle tears (Abductor oren, Biceps femoris) ETOH withdrawal Fatty liver Rhabdomyolysis Transaminitis Hx of recurrent Pancreatitis Chronic anemia Alcohol-related thrombocytopenia. Alcohol-related thrombocytopenia Patient was admitted to the ICU and the following medical problems addressed: LLE Numbness R wrist weakness Possible muscle tears (Abductor oren, Biceps femoris) Rhabdomyolysis Transaminitis Patient with distal radius fracture likely explaining the wrist weakness. Right wrist was put in a wrist brace 4/5 strength to left lower extremity likely secondary to hematoma from a fall Numbness from hip to toes on the left leg reported. MRI left femur (06/05): Lobulated heterogeneous masslike signal abnormality with nodular peripheral enhancement within the central aspect of the adductor oren muscle, 2.8cm in greatest axial dimension up to 7.4cm in greatest craniocaudal extent. Possible focal hematoma / cavernous hemangioma. Extensive signal abnormalities within the muscular compartments, with superimposed areas of enhancement within the adductor Oren muscle and a smaller region within the biceps femoris could reflect muscle tears. Fluid and hemorrhage dissecting along the fascial lines as above, with no other discrete collections. MRI L spine (06/05):Left L4-5 subarticular and foraminal disc extrusion, contacting the exiting left L4 nerve root with mild left neural foraminal narrowing. CT abdomen (06/05): Edematous appearance of the left adductor muscles, tensor fascial ramana and gluteus medius. Findings may reflect sequela of intramuscular strains. Dr. Rhoades, neuro evaluated patient. Patient numbness probably related to alcohol related peripheral neuropathy versus radiculopathy. PT/OT evaluated patient Patient was subsequently able to ambulate. She had rhabdomyolysis. CK level significantly improved with IV hydration Elevated LFT likely secondary to muscle injury. LFTs trended down significantly. ETOH withdrawal Fatty liver Suspected alcoholic gastritis Reports drinking ~pint of tequila every few days. Last drink day before admission. CT abdomen (06/05): fatty liver. Patient neurology status significantly improved. Alcohol withdrawal symptoms was treated with scheduled Librium and Ativan, and Precedex drip. Precedex drip was eventually weaned off, Librium taper down. Patient is currently able to ambulate with a walker. Fall precautions advised. Patient had episodes of nausea and vomiting and epigastric pain likely related to alcohol gastritis. Alcoholic gastritis was treated with sucralfate and Protonix. Patient discharged with sucralfate and Protonix. She is advised to stop drinking alcohol. Patient has been on oral metoprolol which was noted given during the hospital stay due to borderline low BP. He may benefit from an AA program. Vital Signs/Physical Exam: Temp Pulse Resp BP Pulse Ox 97.9 F 108 H 16 105/66 100 06/15/24 18:15 06/15/24 18:15 06/15/24 18:15 06/15/24 18:15 06/15/24 18:15 General: Alert, In no apparent distress, Oriented x3 HEENT: Mucous membr. moist/pink Neck: JVD not distended Respiratory: Clear to auscultation bilaterally, Normal air movement Cardiovascular: Normal S1 S2, Other (Tachycardia) Integumentary: Other (Old bruise left lateral thigh) Neurological: Normal strength at 5/5 x4 extr, Cranial nerves 3-12 intact Laboratory Data at Discharge: WBC 5.50 thou/uL (4.3-10.9) 06/14/24 04:55 Hgb 9.2 g/dL (12.0-15.0) L 06/14/24 04:55 Hct 27.5 % (36.0-45.0) L 06/14/24 04:55 Plt Count 330 thou/uL (152-406) 06/14/24 04:55 Sodium 139 mEq/L (136-145) 06/14/24 04:55 Potassium 3.5 mEq/L (3.5-5.1) 06/14/24 04:55 BUN 6 mg/dL (7-18) L 06/14/24 04:55 Creatinine 0.66 mg/dL (0.55-1.02) 06/14/24 04:55 Glucose 132 mg/dL (74-106) H 06/14/24 04:55 Phosphorus 5.0 mg/dL (2.5-4.9) H 06/14/24 04:55 Magnesium 2.1 mg/dL (1.6-2.4) 06/14/24 04:55 Total Bilirubin 0.7 mg/dL (0.2-1.0) 06/14/24 04:55 AST 39 U/L (15-37) H 06/14/24 04:55 ALT 63 U/L (13-56) H 06/14/24 04:55 Alkaline Phosphatase 140 U/L (45-117) H 06/14/24 04:55 Lipase 44 U/L (13-75) 06/07/24 05:13 Home Medications: Docusate [Colace Cap*] 100 mg PO BID #30 cap 06/15/24 Pantoprazole [Protonix Tab] 40 mg PO DAILY #30 tab 06/15/24 Sucralfate [Carafate -Tab] 1 gm PO TIDWM #90 tab 06/15/24 Thiamine HCl [Vitamin B-1*] 100 mg PO DAILY #30 tab 06/15/24 New Medications: Sucralfate [Carafate -Tab] 1 gm PO TIDWM #90 tab Docusate [Colace Cap*] 100 mg PO BID #30 cap Pantoprazole [Protonix Tab] 40 mg PO DAILY #30 tab Thiamine HCl [Vitamin B-1*] 100 mg PO DAILY #30 tab Followup: Leander Shepard DO [Primary Care Provider] - 1 Week
--- NOTE | 2024-06-16 10:01 | P.PN ---
Date of Service: 06/16/24 Subjective: reports some dizziness with ambulation continues with nausea/vomiting. Denies bloody output. states shes throwing up prior to meals - thinks it might be due to carafate denies shortness of breath ROS: 10 point ROS as noted above, otherwise negative Physical Exam: GEN: Alert, oriented, CV: Regular rate and rhythm, no edema Pulm: Nonlabored respirations on room air, clear bilaterally ABD: soft, nondistended, mild epigastric tenderness Integumentary: mild ecchymosis on lateral thigh Neuro: Normal speech, normal affect Problem List: LLE Numbness R wrist weakness Possible muscle tears (Abductor oren, Biceps femoris) ETOH withdrawal Fatty liver Suspected alcoholic gastritis Nausea/vomiting Rhabdomyolysis, improved Transaminitis, improving LLE Numbness R wrist weakness Possible muscle tears (Abductor oren, Biceps femoris) Rhabdomyolysis, improved Patient with distal radius fracture likely explaining the wrist weakness. Put right wrist in a wrist brace 4/5 strength to left lower extremity likely secondary to hematoma from a fall Numbness from hip to toes on the left leg MRI left femur (06/05): Lobulated heterogeneous masslike signal abnormality with nodular peripheral enhancement within the central aspect of the adductor oren muscle, 2.8cm in greatest axial dimension up to 7.4cm in greatest craniocaudal extent. Possible focal hematoma / cavernous hemangioma. Extensive signal abnormalities within the muscular compartments, with superimposed areas of enhancement within the adductor Oren muscle and a smaller region within the biceps femoris could reflect muscle tears. Fluid and hemorrhage dissecting along the fascial lines as above, with no other discrete collections. MRI L spine (06/05):Left L4-5 subarticular and foraminal disc extrusion, contacting the exiting left L4 nerve root with mild left neural foraminal narrowing. CT abdomen (06/05): Fatty Liver. Enlarged, edematous appearance of the left adductor muscles, tensor fascial ramana and gluteus medius. Findings may reflect sequela of intramuscular strains. Dr. Rhoades, neuro consulted CPK > 100k on admission. Rhabdo resolved with IV hydration. Monitor on telemetry Continue supportive measures Continue PT/OT ETOH withdrawal Fatty liver Suspected alcoholic gastritis Nausea/vomiting Reports drinking ~pint of tequila every few days. Last drink day before admission. CT abdomen (06/05): fatty liver Weaned off precedex 06/12. taper librium as tolerated; decreased to 25 mg BID from TID 06/15 Alcohol withdrawal symptoms significantly improved, however patient is still tachycardic. Protonix and sucralfate added 06/10 for suspected alcoholic gastritis DC carafate 06/16 - possibly contributing to nausea/vomiting PRN phenergan Transaminitis, improving Transaminitis Likely multifacotorial secondary to muscular injury and released from myocyte / rhabdo / alcohol use. LFTs significantly improved compared to admission Constipation Patient feels constipation related to opiates. Daily colace, laxative VTE: Lovenox Code: Full home, ~24-48hrs Time Spent Managing Pts Care (In Minutes): 55
[2024-06-17 06:24] LABS: Hematocrit 28.4 % (36.0-45.0); Hemoglobin 9.9 g/dL (12.0-15.0); MCH 33.7 pg (27.0-35.0); MCHC 34.8 g/dL (32.0-36.0); MCV 96.7 fL (80-100); MPV 8.1 fL (7.6-11.3); Platelets 372 thou/uL (152-406); RBC Red Blood Cell Count 2.94 M/uL (3.86-4.86); Red Cell Distribution Width 15.2 % (12.1-15.2)
[2024-06-17 06:41] LABS: Albumin 3.3 g/dL (3.4-5.0); Albumin/Globulin Ratio 0.9 (1.1-1.8); Anion Gap 8.4 mEq/L (5.0-15.0); Bilirubin Total 0.6 mg/dL (0.2-1.0); Globulin 3.7 g/dL (2.3-3.5); Magnesium 2.1 mg/dL (1.6-2.4); Potassium 3.4 mEq/L (3.5-5.1)
--- NOTE | 2024-06-17 09:15 | P.PN ---
Date of Service: 06/17/24 Subjective: continues with intermittent nausea/vomiting +abdominal discomfort remains tachy; HR in 90-100s BP low-normal ROS: 10 point ROS as noted above, otherwise negative Physical Exam: GEN: Alert, oriented, CV: Sinus Tachycardia, no edema Pulm: Nonlabored respirations on room air, clear bilaterally ABD: soft, nondistended, mild epigastric tenderness Integumentary: mild ecchymosis on lateral thigh Neuro: Normal speech, normal affect Problem List: LLE Numbness R wrist weakness Possible muscle tears (Abductor oren, Biceps femoris) Rhabdomyolysis, improved ETOH withdrawal Fatty liver Suspected alcoholic gastritis Nausea/vomiting Hx of recurrent Pancreatitis Transaminitis, improving LLE Numbness R wrist weakness Possible muscle tears (Abductor oren, Biceps femoris) Rhabdomyolysis, improved Patient with distal radius fracture likely explaining the wrist weakness. Put right wrist in a wrist brace 4/5 strength to left lower extremity likely secondary to hematoma from a fall Numbness from hip to toes on the left leg MRI left femur (06/05): Lobulated heterogeneous masslike signal abnormality with nodular peripheral enhancement within the central aspect of the adductor oren muscle, 2.8cm in greatest axial dimension up to 7.4cm in greatest craniocaudal extent. Possible focal hematoma / cavernous hemangioma. Extensive signal abnormalities within the muscular compartments, with superimposed areas of enhancement within the adductor Oren muscle and a smaller region within the biceps femoris could reflect muscle tears. Fluid and hemorrhage dissecting along the fascial lines as above, with no other discrete collections. MRI L spine (06/05):Left L4-5 subarticular and foraminal disc extrusion, contacting the exiting left L4 nerve root with mild left neural foraminal narrowing. CT abdomen (06/05): Fatty Liver. Enlarged, edematous appearance of the left adductor muscles, tensor fascial ramana and gluteus medius. Findings may reflect sequela of intramuscular strains. Dr. Rhoades, neuro consulted CPK > 100k on admission. Rhabdo resolved with IV hydration. Monitor on telemetry Continue supportive measures Continue PT/OT ETOH withdrawal Fatty liver Suspected alcoholic gastritis Nausea/vomiting Hx of recurrent Pancreatitis Reports drinking ~pint of tequila every few days. Last drink day before admission. CT abdomen (06/05): fatty liver Weaned off precedex 06/12. taper librium as tolerated; decreased to 25 mg BID from TID 06/15 Alcohol withdrawal symptoms significantly improved, however patient is still tachycardic. Protonix and sucralfate added 06/10 for suspected alcoholic gastritis carafate dc'd 06/16. dc phenergan today CT abd/pelvis ordered to further eval given continued nausea/vomiting Transaminitis, improving Transaminitis Likely multifacotorial secondary to muscular injury and released from myocyte / rhabdo / alcohol use. LFTs significantly improved compared to admission Constipation Patient feels constipation related to opiates. Daily colace, laxative VTE: Lovenox Code: Full home, ~24-48hrs Time Spent Managing Pts Care (In Minutes): 55
--- NOTE | 2024-06-17 09:35 | P.DS ---
Admission Date: 06/05/24 Discharge Date: 06/17/24 Disposition: ROUTINE DISCHARGE Discharge Condition: FAIR Reason for Admission: Alcohol drawl, left lower extremity numbness Consultations: Neurology - Dr. Rhoades Brief History of Present Illness: 34 yo F, PMH: alcohol use disorder Patient presents to the emergency department with chief complaint of left leg numbness. She does admit to drinking heavily, regularly and reports that since yesterday afternoon she has had total numbness from her left hip all the way down to her toes. She has some weakness as well but is able to move her leg and lift it off the bed. She denies any IV drug use, she did have a recent dental extraction about a week ago, she was taking Keflex and meloxicam at that time which she has completed. She does have bruises in various stages of healing on her extremities, she reports frequent falls, when asked she denies any physical abuse of any kind. She reports that she lives alone in an apartment. Patient was evaluated in the emergency department her labs were significant for a CK of greater than 100,000, AST 864 ALT 216 alk phos 181 serum alcohol level [address] CT chest abdomen pelvis showed fatty liver, enlarged, edematous appearance of the left adductor muscles, tensor fascia lotta and gluteus medius. These findings may reflect sequela of intramuscular strains. CT head/C-spine was negative for acute findings patient had x-rays of the right forearm which showed old or healing fracture in the distal radius with no definite acute fracture. Patient is tachycardic, she states that she drinks about a pint of tequila every couple days last drink was yesterday afternoon. Patient will be admitted to the ICU for now for further management and treatment of alcohol withdrawal Hospital Course: Problem List: LLE Numbness R wrist weakness Possible muscle tears (Abductor oren, Biceps femoris) Rhabdomyolysis, resolved ETOH withdrawal Fatty liver Suspected alcoholic gastritis Hx of recurrent Pancreatitis Transaminitis, resolved Physician discharge instructions: Patient presented with lower left extremity numbness, generalized weakness. Secondary to hematoma / possible muscle tear from a fall. 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 She reports multiple episodes of falls related to alcohol consumption recently. MRI femur and lumbar spine with findings as noted below. Dr. Rhoades (neuro) was consulted to evaluate numbness who recommended medical management, pain control, hydration. No evidence of acute stroke. She was noted to have intermittent alcohol withdrawals throughout her hospitalization. Alcohol withdrawal symptoms were treated with scheduled Librium and Ativan, and Precedex drip. Precedex drip was eventually weaned off 06/12, Librium tapered down. Patient had episodes of nausea and vomiting and epigastric pain likely related to alcohol gastritis. Alcoholic gastritis was treated with sucralfate and Protonix. Patient worked with PT/OT throughout her stay and was able to ambulate ~200 ft independently. Patient was feeling better, strength improving, numbness improving. Patient is to complete 5 day librium taper. Take 1 tablet twice daily for 2 days, then 1 tablet daily for 3 days. Discussed patient would benefit from an AA program. Reportedly patient has been on oral metoprolol which was not given during the hospital stay due to borderline low BP per chart. Recommending continuing to hold metoprolol for now. Check blood pressure around the same time each day. Keep daily log of blood pressure readings to take to follow up appointments for further adjustments of medications. Creatine Kinase was noted to be > 100k on admission, secondary to significant muscle destruction / fall in the left lower extremity as noted on imaging. CPK level significantly improved with IV hydration, resolved 06/12. LFTs trended down significantly with time. on day of discharge, LFTs, CPK, renal function, electrolytes were all within normal limits. She was having some nausea throughout hospitalization and some mild-moderate epigastric tenderness She was given PPI and carafate for concern of gastritis, however felt carafate contributed to nausea so this was discontinued. She reported history of slow digestion of her food and deals with this at home routinely. Discussed consideration of repeat CT imaging to rule out other pathology, but she declined since this wasn't any different than her usual/chronic symptoms she gets at home. Given her lack of peritoneal signs, no severe tenderness, and normal labs on day of discharge, she was deemed stable for discharge home. Recommended follow up with PCP. Medications: Pantoprazole 4o mg daily Librium 1 tablet twice daily for 2 days, then 1 tablet daily for 3 days Sucralfate 1gm as needed for nausea up to three times a day [place] 5/325 20 pills as needed for pain docusate 100 mg twice a day Pepcid hold metoprolol Follow up: PCP 3-5 days Please call to schedule / confirm appointments MRI left femur: Lobulated heterogeneous masslike signal abnormality with nodular peripheral enhancement within the central aspect of the adductor oren muscle, 2.8cm in greatest axial dimension up to 7.4cm in greatest craniocaudal extent. Possible focal hematoma / cavernous hemangioma. Extensive signal abnormalities within the muscular compartments, with superimposed areas of enhancement within the adductor Oren muscle and a smaller region within the biceps femoris could reflect muscle tears. Fluid and hemorrhage dissecting along the fascial lines as above, with no other discrete collections. MRI Lumbar Spine: Left L4-5 subarticular and foraminal disc extrusion, contacting the exiting left L4 nerve root with mild left neural foraminal narrowing. Physical Exam: GEN: Alert, oriented, CV: normal rate & rhythm, no edema Pulm: Nonlabored respirations on room air, clear bilaterally ABD: soft, nondistended, mild epigastric tenderness Neuro: Normal speech, normal affect Vital Signs/Physical Exam: Temp Pulse Resp BP Pulse Ox 98.1 F 98 H 18 115/65 98 06/17/24 04:00 06/17/24 04:00 06/17/24 05:48 06/17/24 04:00 06/17/24 05:48 Laboratory Data at Discharge: WBC 6.70 thou/uL (4.3-10.9) 06/17/24 06:01 Hgb 9.9 g/dL (12.0-15.0) L 06/17/24 06:01 Hct 28.4 % (36.0-45.0) L 06/17/24 06:01 Plt Count 372 thou/uL (152-406) 06/17/24 06:01 Sodium 137 mEq/L (136-145) 06/17/24 06:01 Potassium 3.4 mEq/L (3.5-5.1) L 06/17/24 06:01 BUN 7 mg/dL (7-18) 06/17/24 06:01 Creatinine 0.75 mg/dL (0.55-1.02) 06/17/24 06:01 Glucose 95 mg/dL (74-106) 06/17/24 06:01 Phosphorus 5.0 mg/dL (2.5-4.9) H 06/14/24 04:55 Magnesium 2.1 mg/dL (1.6-2.4) 06/17/24 06:01 Total Bilirubin 0.6 mg/dL (0.2-1.0) 06/17/24 06:01 AST 34 U/L (15-37) 06/17/24 06:01 ALT 43 U/L (13-56) 06/17/24 06:01 Alkaline Phosphatase 127 U/L (45-117) H 06/17/24 06:01 Lipase 44 U/L (13-75) 06/07/24 05:13 Home Medications: Docusate [Colace Cap*] 100 mg PO BID #30 cap 06/15/24 Pantoprazole [Protonix Tab] 40 mg PO DAILY #30 tab 06/15/24 Sucralfate [Carafate -Tab] 1 gm PO TIDWM #90 tab 06/15/24 Thiamine HCl [Vitamin B-1*] 100 mg PO DAILY #30 tab 06/15/24 Hydrocodone 5/APAP 325 [[place] 5/325*] 1 tab PO Q8H PRN #20 tab 06/17/24 chlordiazePOXIDE HCl [Librium*] 25 mg PO SEECOM 5 Days #7 cap 06/17/24 New Medications: Sucralfate [Carafate -Tab] 1 gm PO TIDWM #90 tab Docusate [Colace Cap*] 100 mg PO BID #30 cap chlordiazePOXIDE HCl [Librium*] 25 mg PO SEECOM 5 Days #7 cap Hydrocodone 5/APAP 325 [[place] 5/325*] 1 tab PO Q8H PRN #20 tab PRN Reason: Pain Scale 5-7 (Moderate) Pantoprazole [Protonix Tab] 40 mg PO DAILY #30 tab Thiamine HCl [Vitamin B-1*] 100 mg PO DAILY #30 tab Physician Discharge Instructions: Physician discharge instructions: Patient presented with lower left extremity numbness, generalized weakness. Secondary to hematoma / possible muscle tear from a fall. 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 She reports multiple episodes of falls related to alcohol consumption recently. MRI femur and lumbar spine with findings as noted below. Dr. Rhoades (neuro) was consulted to evaluate numbness who recommended medical management, pain control, hydration. No evidence of acute stroke. She was noted to have intermittent alcohol withdrawals throughout her hospitalization. Alcohol withdrawal symptoms were treated with scheduled Librium and Ativan, and Precedex drip. Precedex drip was eventually weaned off 06/12, Librium tapered down. Patient had episodes of nausea and vomiting and epigastric pain likely related to alcohol gastritis. Alcoholic gastritis was treated with sucralfate and Protonix. Patient worked with PT/OT throughout her stay and was able to ambulate ~200 ft independently. Patient was feeling better, strength improving, numbness improving. Patient is to complete 5 day librium taper. Take 1 tablet twice daily for 2 da ys, then 1 tablet daily for 3 days. Discussed patient would benefit from an AA program. Reportedly patient has been on oral metoprolol which was not given during the hospital stay due to borderline low BP per chart. Recommending continuing to hold metoprolol for now. Check blood pressure around the same time each day. Keep daily log of blood pressure readings to take to follow up appointments for further adjustments of medications. Creatine Kinase was noted to be > 100k on admission, secondary to significant muscle destruction / fall in the left lower extremity as noted on imaging. CPK level significantly improved with IV hydration, resolved 06/12. LFTs trended down significantly with time. on day of discharge, LFTs, CPK, renal function, electrolytes were all within normal limits. She was having some nausea throughout hospitalization and some mild-moderate epigastric tenderness She was given PPI and carafate for concern of gastritis, however felt carafate contributed to nausea so this was discontinued. She reported history of slow digestion of her food and deals with this at home routinely. Discussed consideration of repeat CT imaging to rule out other pathology, but she declined since this wasn't any different than her usual/chronic symptoms she gets at home. Given her lack of peritoneal signs, no severe tenderness, and normal labs on day of discharge, she was deemed stable for discharge home. Recommended follow up with PCP. Medications: Pantoprazole 4o mg daily Librium 1 tablet twice daily for 2 days, then 1 tablet daily for 3 days Sucralfate 1gm as needed for nausea up to three times a day [place] 5/325 20 pills as needed for pain docusate 100 mg twice a day Pepcid hold metoprolol Follow up: PCP 3-5 days Please call to schedule / confirm appointments MRI left femur: Lobulated heterogeneous masslike signal abnormality with nodular peripheral enhancement within the central aspect of the adductor oren muscle, 2.8cm in greatest axial dimension up to 7.4cm in greatest craniocaudal extent. Possible focal hematoma / cavernous hemangioma. Extensive signal abnormalities within the muscular compartments, with superimposed areas of enhancement within the adductor Oren muscle and a smaller region within the biceps femoris could reflect muscle tears. Fluid and hemorrhage dissecting along the fascial lines as above, with no other discrete collections. MRI Lumbar Spine: Left L4-5 subarticular and foraminal disc extrusion, contacting the exiting left L4 nerve root with mild left neural foraminal [place] rowing. Followup: Leander Shepard, DO [Primary Care Provider] - 1 Week Time spent managing pt's care (in minutes): 45
[2024-06-17] MEDS: HYDROCODONE/APAP 5/325 MG TAB PO PRN (09:43)
[2024-06-17] MEDS: POTASSIUM 25 MEQ EFFERV TAB PO ONE (09:44)
[2024-06-17 09:57] VITALS: BP 95/55; TEMP 97.6
[2024-06-17 10:36] VITALS: O2SAT 99
== END 2024-06-17 11:47 | disposition home or self-care (01) | DRG 74 ==
LOC: ER 03:10 → ERHOLD 07:33 → 3RD-ICU 18:01 → 4TH 06-14 12:45
PROVIDERS: ADMIT Hospitalist; ATTEND Hospitalist
DX: G62.1 Alcoholic polyneuropathy (principal); F10.239 Alcohol dependence with withdrawal, unspecified; E87.20 Acidosis, unspecified; M62.82 Rhabdomyolysis; D62 Acute posthemorrhagic anemia; F10.29 Alcohol dependence with unspecified alcohol-induced disorder; K29.20 Alcoholic gastritis without bleeding; F10.229 Alcohol dependence with intoxication, unspecified; I10 Essential (primary) hypertension; M25.531 Pain in right wrist; D69.59 Other secondary thrombocytopenia; K70.0 Alcoholic fatty liver; F90.9 Attention-deficit hyperactivity disorder, unspecified type; K59.03 Drug induced constipation; T40.605A Adverse effect of unspecified narcotics, initial encounter; R29.6 Repeated falls; R74.01 Elevation of levels of liver transaminase levels; Z60.2 Problems related to living alone; Z91.81 History of falling; Z79.899 Other long term (current) drug therapy; W18.30XA Fall on same level, unspecified, initial encounter; Y92.019 Unspecified place in single-family (private) house as the place of occurrence of the external cause; Y93.9 Activity, unspecified; Y99.9 Unspecified external cause status; Y90.8 Blood alcohol level of 240 mg/100 ml or more
CPT/HCPCS: 36415; 70450; 71260; 72125; 72148; 74177; 80048; 80053; 80307; 81001; 81003; 82077; 82140; 82533; 82550; 82607; 83605; 83690; 83735; 83874; 83880; 84100; 84439; 84443; 84484; 84703; 85014; 85018; 85025; 85027; 86140; 93005; 96365; 96375; 97110; 97116; 97161; 97530; 99284; A9577; J1650; J2270; J2405; J2470; J2550; J3411; J3420; J3480; J7030; J7120; Q9967